=== PATIENT | male | born 1935 | race Caucasian/White ===

== ENCOUNTER → 2016-08-06 | Outpatient (CLI) | payer MEDICARE, OTHER ==
[~2016-08-06] MED LIST: ASCO-262 PO; ASCO500T20 PO; ASP325T PO; ASP81TEC PO; ASPI-586 PO; AZTH250C PO; CA C1TAB84 PO; CALC-902 PO; CARB1TAB19 PO; CARB1TAB44 PO; CARB1TAB6 PO; CHOL20003 PO; DOCU100C37 PO; DOCU100T7 PO; DOXY100T2 PO; ERGO400C PO; FAMO20TA3 PO; FINA1TAB10 PO; FINA5TAB6 PO; FURO-125 PO; FURO20TA4 PO; GLIP10TA13 PO; GLIPIZIDE PO; HYDR1TAB PO; INSU100I10 SQ; INSU100V6 SQ; LEVO100T7 PO; LISI-552 PO; LISI20TA PO; LISINOPRIL PO; METF-380 PO; METF500T8 PO; METFORMIN PO; METO5TAB6 PO; MTF500T PO; MTP25TSR PO; OMEG-12 PO; OMEG-160 PO; PANT40TA PO; PANT40TA3 PO; PNT40TEC PO; PRAV10TA PO; PRV20T GT; PRV20T PO; SPIR50TA2 PO; TADA2.5T PO; TRAM-42 PO; TRAM50TA2 PO; TURM500C7 PO; UBID10CA8 PO; VITA1CAP PO; Z PACK; [UNRECOGNIZED DRUG - OTHER] PO; calcium; vitamines
--- NOTE | 2016-08-06 11:49 | Diagnostic Imaging Report ---
EXAMINATION: PA and lateral views of the chest. INDICATION: Fullness and pain. FINDINGS: The lungs are hyperinflated with no focal infiltrates. The heart size is at the upper limits of normal. There is no effusion or pneumothorax. The mediastinum and librado are unremarkable. When compared to 06/11/2015, mild interstitial prominence is stable and is likely chronic mild scarring related. Pacemaker with 2 leads is seen. IMPRESSION: No acute process. Dictated by: Dictated on workstation # [id number]
--- NOTE | 2016-08-06 11:57 | Diagnostic Imaging Report ---
KUB. INDICATION: Fullness and abdominal pain. FINDINGS: No dilated bowel loops seen. Small amount of fecal material in the colon is noted. Cholecystectomy clips seen. There are calcifications in the upper left abdomen favored to be vascular. Calcifications in the pelvis are likely phleboliths. No definitive urinary tract stones. IMPRESSION: No definite abnormality. Dictated by: Dictated on workstation # [id number]
[2016-08-06 12:15] LABS: MEAN PLATELET VOLUME 8.9 FL (7.4-10.4); RED BLOOD COUNT 4.88 10^6/uL (4.35-5.85); RED CELL DISTRIBUTION WIDTH 13.7 % (10.0-14.5); WHITE BLOOD COUNT 9.8 10^3/uL (4.3-11.0)
[2016-08-06 12:34] LABS: ALBUMIN 3.9 G/DL (3.2-4.5); BILIRUBIN,TOTAL 0.8 MG/DL (0.1-1.0); CREATININE SERUM 1.46 MG/DL (0.60-1.30); POTASSIUM 4.6 MMOL/L (3.6-5.0); TOTAL PROTEIN 6.8 G/DL (6.4-8.2)
== END ==
LOC: RAD 10:59
PROVIDERS: ATTEND Nurse Practitioner Family
DX: R05 Cough (principal)
CPT/HCPCS: 36415; 71020; 74000; 80053; 83880; 85027; 87070; 87077; 87186; 87205

== ENCOUNTER → 2016-08-10 | Outpatient (CLI) | payer MEDICARE, OTHER ==
--- NOTE | 2016-08-10 15:54 | Diagnostic Imaging Report ---
PROCEDURE: US Thyroid. TECHNIQUE: Multiple real-time grayscale images were obtained of the thyroid in various projections. INDICATION: Abnormal thyroid function. FINDINGS: The right thyroid lobe is 5.6 x 2.3 x 2 cm. The left lobe is 5.8 x 2.8 x 2.4 cm. There is a nodule measuring 2.6 x 1.9 x 2.3 cm in the inferior aspect of the left thyroid lobe. In the inferior aspect of the right lobe, a 1.9 x 1.2 x 1.6 cm nodule is seen with a solid appearance and internal vascularity. The rest of the thyroid gland is slightly heterogenous. IMPRESSION: Enlarged slightly heterogenous thyroid gland with dominant nodules in the inferior aspect of each lobe, larger on the left side measuring up to 2.6 cm. This could be related to multinodular goiter. An ultrasound-guided biopsy of the dominant lesion is suggested. Report faxed to [phone] at 3:54 p.m. 08/10/2016/ Dictated by: Dictated on workstation # [id number]
== END ==
LOC: RAD 11:56
PROVIDERS: ATTEND Nurse Practitioner Family
DX: R94.6 Abnormal results of thyroid function studies (principal); E04.1 Nontoxic single thyroid nodule
CPT/HCPCS: 76536

== ENCOUNTER → 2016-08-13 | Outpatient (CLI) | payer MEDICARE, OTHER ==
[2016-08-13 14:02] LABS: ALBUMIN 3.7 G/DL (3.2-4.5); BILIRUBIN,TOTAL 0.7 MG/DL (0.1-1.0); CALCIUM 8.6 MG/DL (8.5-10.1); CREATININE SERUM 1.38 MG/DL (0.60-1.30); POTASSIUM 4.5 MMOL/L (3.6-5.0); TOTAL PROTEIN 6.3 G/DL (6.4-8.2)
[2016-08-13 14:22] LABS: THYROID STIMULATING HORMONE 0.37 UIU/ML (0.35-4.94)
== END ==
LOC: LAB 13:16
PROVIDERS: ATTEND Surgery
DX: E04.1 Nontoxic single thyroid nodule (principal); R53.83 Other fatigue
CPT/HCPCS: 36415; 80053; 84436; 84443; 84480

== ENCOUNTER 2016-08-20 08:53 | Outpatient (CLI) | payer MEDICARE, OTHER ==
[~2016-08-20] VITALS: Ht 188 cm; Wt 99.9 kg
[~2016-08-20 08:53] MED LIST changes: -CA C1TAB84 PO; -CALC-902 PO; -DOCU100C37 PO; -INSU100I10 SQ; -LEVO100T7 PO; -TRAM50TA2 PO
[2016-08-20 09:05] VITALS: BP 174/81
[2016-08-20] MEDS ORDERED: CALC-902 PO (09:10)
[2016-08-26] MEDS ORDERED: TRAM50TA2 PO (13:37)
[2016-08-26] MEDS ORDERED: LEVO100T7 PO (13:40)
== END 2016-08-20 09:40 | disposition home or self-care (01) ==
LOC: PREOP 08:53
PROVIDERS: ATTEND Surgery
DX: Z01.818 Encounter for other preprocedural examination (principal); Z11.2 Encounter for screening for other bacterial diseases; E04.1 Nontoxic single thyroid nodule
CPT/HCPCS: 87081

== ENCOUNTER 2016-08-26 08:55 | Day surgery (SDC) | payer MEDICARE, OTHER ==
[2016-08-26] VITALS (11 sets, daily range): BP systolic 119–171; BP diastolic 76–108
[~2016-08-26] VITALS: Ht 188 cm; Wt 92.6 kg
[~2016-08-26 08:55] MED LIST changes: +CALC-902 PO
[2016-08-26] MEDS ORDERED: VANCOMYCIN 1000 MG/VIAL ONE (09:15)
[2016-08-26] MEDS ORDERED: NS (IVPB) 250 ML ONE (09:15)
[2016-08-26] MEDS ORDERED: VANCOMYCIN 1 GM/NS 250 ML IVPB IV ONE ×2 (09:30)
[2016-08-26] MEDS ORDERED: CATHETER FLUSH 10 ML SYR IV PRN (09:30)
[2016-08-26] MEDS ORDERED: BUP/EPI 0.25% 1:200,000 (MARCAINE) 30 ML VIAL ONE (09:37)
[2016-08-26] MEDS ORDERED: THROMBIN SPRAY KIT 5,000 UNIT VIAL ONE (09:37)
--- NOTE | 2016-08-26 09:47 | Progress Note-Pre Operative ---
Pre-Operative Progress Note H&P Reviewed The H&P was reviewed, patient examined and no changes noted. Date H&P Reviewed: August 26, 2016 Time H&P Reviewed: 09:47 Pre-Operative Diagnosis: thyroid nodules KAELYN WEST MD August 26, 2016 9:47 am
[2016-08-26] MEDS ORDERED: LACTATED RINGERS 1,000 ML IV ONE (09:50)
[2016-08-26] MEDS ORDERED: ONDANSETRON 4 MG/2 ML (SDV) Z0FRAN ONE (09:50)
[2016-08-26] MEDS ORDERED: proPOfol 200 MG/20 ML (DIPRIVAN) VIAL IV ONE (09:50)
[2016-08-26] MEDS ORDERED: SEVOFLURANE (ULTANE) 15 ML INHAL SOLN ONE ×8 (09:50→12:27)
[2016-08-26] MEDS ORDERED: SUCCINYLCHOLINE INJ 100 MG/5 ML SYR ONE (09:50)
[2016-08-26] MEDS ORDERED: fentaNYL INJECTION 250 MCG/5 ML AMP ONE (09:51)
[2016-08-26] MEDS ORDERED: MIDAZOLAM 2 MG/2 ML (VERSED) VIAL ONE (09:51)
[2016-08-26] MEDS ORDERED: fentaNYL INJECTION 100 MCG/2 ML AMP ONE (11:27)
[2016-08-26] MEDS ORDERED: LACTATED RINGERS 1,000 ML IV PRN (12:13)
[2016-08-26] MEDS ORDERED: ONDANSETRON 4 MG/2 ML (SDV) Z0FRAN IVP PRN ×2 (12:45→13:45)
[2016-08-26] MEDS ORDERED: MEPERIDINE (DEMEROL) INJ 50 MG/ML IVP PRN (12:45)
[2016-08-26] MEDS ORDERED: morphine INJ 10 MG/ML 1ML (SYR OR VIAL) ONE (13:17)
[2016-08-26] MEDS: morphine INJ 10 MG/ML 1ML (SYR OR VIAL) IVP PRN ×2 (13:28→13:33)
[2016-08-26] MEDS ORDERED: LACTATED RINGERS 1,000 ML IV SCH (13:33)
--- NOTE | 2016-08-26 13:33 | Progress Note-Post Operative ---
Post-Operative Progess Note Surgeon (s)/Obstetrics And Gynecology Professor (s) Surgeon KAELYN WEST MD Obstetrics And Gynecology Professor: not applicable Pre-Operative Diagnosis thyroid nodules Post-Operative Diagnosis same Procedure & Operative Findings Date of Procedure 08/26/16 Procedure Preformed/Findings total thyroidectomy with nerve monitoring Anesthesia Type Gen. Estimated Blood Loss Estimated blood loss (mL): 50 mL Specimens/Packing Specimens Removed both lobes of thyroid Packing: none KAELYN WEST MD August 26, 2016 1:32 pm
[2016-08-26] MEDS ORDERED: TRAM50TA2 PO (13:37)
--- NOTE | 2016-08-26 13:38 | Discharge Inst-Simple/Standard ---
Discharge Inst-Standard Discharge Medications New, Converted or Re-Newed RX: RX on Chart Patient Instructions/Follow Up Plan of Care/Instructions/FU: dressings off in a.m.ffollow-up in 3 weeks Activity as Tolerated: Yes Discharge Diet: No Restrictions, ADA Diet KAELYN WEST MD August 26, 2016 1:38 pm
[2016-08-26] MEDS ORDERED: LEVO100T7 PO (13:40)
[2016-08-26] MEDS ORDERED: HYDROcodone/APAP 5 MG/325 MG (LORTAB) TAB PO PRN (13:45)
[2016-08-26] MEDS ORDERED: fentaNYL INJECTION 100 MCG/2 ML AMP IVP PRN (13:45)
[2016-08-26] MEDS ORDERED: FAMOTIDINE 20 MG (PEPCID) TABLET PO PRN (13:45)
[2016-08-26] MEDS ORDERED: INSU100I10 SQ (16:51)
[2016-08-26] MEDS ORDERED: CA C1TAB84 PO (16:51)
[2016-08-26] MEDS ORDERED: DOCU100C37 PO (16:55)
[2016-08-26] MEDS ORDERED: metFORMIN XR 500 MG (GLUCOPHAGE XR) TAB PO SCH (17:00)
[2016-08-26] MEDS: LABETALOL HCL 20 MG/4 ML VIAL IV PRN ×3 (17:47→21:31)
[2016-08-26] MEDS ORDERED: FUROSEMIDE 20 MG (LASIX) TAB PO SCH (18:00)
[2016-08-26] MEDS: metFORMIN XR 500 MG (GLUCOPHAGE XR) TAB PO SCH (18:18)
[2016-08-26] MEDS: GLIPIZIDE 10 MG TAB PO SCH (18:18)
[2016-08-26] MEDS: SINEMET 25/100 (CARBIDOPA/LEVODOPA) TAB PO SCH (18:18)
[2016-08-26] MEDS: lisINopril 20 MG (ZESTRIL) TAB PO SCH (20:32)
[2016-08-26] MEDS ORDERED: inSUlin DETERMIR 1 UNIT/0.01 ML (LEVEMIR) CHARGE PER UNIT SQ SCH (21:00)
[2016-08-26] MEDS ORDERED: INSULIN GLARGINE HUM REC ANLOG SQ SCH (21:00)
[2016-08-26] MEDS ORDERED: [UNRECOGNIZED DRUG - OTHER] SQ SCH (21:00)
[2016-08-26] MEDS ORDERED: lisINopril 20 MG (ZESTRIL) TAB PO SCH (21:00)
[2016-08-26] MEDS ORDERED: ONDANSETRON 4 MG/2 ML (SDV) Z0FRAN IVP ONE (21:30)
[2016-08-27] VITALS (14 sets, daily range): BP systolic 97–146; BP diastolic 56–107
[2016-08-27 04:13] LABS: CALCIUM 8.2 MG/DL (8.5-10.1); CREATININE SERUM 1.47 MG/DL (0.60-1.30); MAGNESIUM 1.7 MG/DL (1.8-2.4); PHOSPHORUS 4.3 MG/DL (2.3-4.7); POTASSIUM 4.7 MMOL/L (3.6-5.0)
[2016-08-27] MEDS ORDERED: LEVOTHYROXINE 100 MCG (LEVOTHROID) TAB PO NR (06:00)
[2016-08-27] MEDS ORDERED: D3 PO SCH (07:00)
[2016-08-27] MEDS ORDERED: MINERALS PO SCH (07:00)
[2016-08-27] MEDS ORDERED: CALCIUM PO SCH (07:00)
[2016-08-27] MEDS ORDERED: FUROSEMIDE 20 MG (LASIX) TAB PO SCH (09:00)
[2016-08-27] MEDS ORDERED: METOCLOPRAMIDE INJ 10 MG/2 ML (REGLAN) IVP NR (09:06)
--- NOTE | 2016-08-27 09:18 | OPERATIVE REPORT ---
DATE OF SERVICE: 08/26/2016 PREOPERATIVE DIAGNOSIS: Bilateral thyroid nodules. POSTOPERATIVE DIAGNOSIS: Bilateral thyroid nodules. OPERATIONS: 1. Total thyroidectomy. 2. Intraoperative nerve monitoring (recurrent laryngeal nerve). SURGEON: Kaelyn West MD ANESTHESIA: General anesthesia. BLOOD LOSS: 50 mL. FLUIDS: 1300 mL crystalloid. TYPE OF WOUND: Type 1 (clean wound). INDICATION FOR PROCEDURE: This gentleman is known to have had bilateral thyroid nodules over long a period of time. Recently, he developed hoarseness of voice and ultrasound of the thyroid showed enlargement of the thyroid nodules. Therefore, he was felt reasonable to proceed with total thyroidectomy to establish definitive diagnosis care. Intraoperative monitoring of the recurrent laryngeal nerve was also offered. Informed consent was obtained after reviewing the operative details and complications of wound infection, hematoma and further hoarseness of his voice. DESCRIPTION OF PROCEDURE: He was placed supine on the operating table and general anesthesia induced using an endotracheal tube. Ancef was administered intravenously as prophylaxis against wound infection. Sequential compression devices were placed around his legs, to minimize the risk of venous thrombosis. His neck and upper chest were prepared and draped in the usual sterile manner. Pre-emptive analgesia was established using 0.25% Marcaine with epinephrine. A 4 cm transverse incision was made along the skin crease of the neck and platysma incised transversely. Flaps were raised superiorly to the level of the thyroid cartilage and inferiorly to the sternal notch. Cervical fascia was incised vertically and the trap muscles were retracted laterally. I began the dissection on the left side. A large lobe with extension into the paraesophageal region was identified. It was retracted into the operative field and the superior thyroid artery controlled using 2-0 silk sutures, reinforced with the LigaSure. Recurrent laryngeal nerve was identified and preserved throughout, by constant visual inspection and intermittent nerve stimulation technique. Both parathyroids were identified and preserved along with their blood supply. The isthmus was then divided using Harmonic scalpel. Inferior thyroid artery was ligated using 2-0 silk sutures, reinforced with Ligaclips. Left lobe was then sent separately for histological examination. A smaller right lobe was identified and dissected in a similar fashion. Recurrent laryngeal nerve was found in its conventional position and protected by constant visual inspection and intermittent nerve stimulation technique. Both parathyroid glands were identified and preserved, along with the blood supply. We had the anesthesiologist conduct Valsalva maneuver, looking for venous bleeding. There was not any. Gelfoam soaked in thrombin solution and was placed along the tracheoesophageal groove, to optimize hemostasis. Neck was then flexed, in preparation for closure. Cervical fascia was approximated using 3-0 Vicryl and platysma using same material. The skin was closed using 4-0 Vicryl, in a subcuticular fashion. He tolerated the procedure well, was extubated in the operating room and taken to the recovery room in stable condition. [place], sponges and instruments were correct at the end of the operation. Job ID: [id number] DocumentID: [id number] Dictated Date: 08/26/2016 13:30:17 Filler Blender Date: 08/27/2016 03:30:52 Dictated By: KAELYN WEST MD MTDD
[2016-08-27] MEDS: MAGNESIUM 1 GM/100 ML IVPB 100 ML IV SCH ×2 (09:28→11:19)
[2016-08-27] MEDS: GLIPIZIDE 10 MG TAB PO SCH (09:33)
[2016-08-27] MEDS: SINEMET 25/100 (CARBIDOPA/LEVODOPA) TAB PO SCH (09:33)
[2016-08-27] MEDS: lisINopril 20 MG (ZESTRIL) TAB PO SCH (09:34)
[2016-08-27] MEDS: metFORMIN XR 500 MG (GLUCOPHAGE XR) TAB PO SCH (09:34)
--- NOTE | 2016-08-27 12:19 | Progress Note-Standard ---
Standard Progress Note Progress Notes/Assess & Plan Progress/Assessment & Plan 08/27/16: Nausea improved, Incision dry. Calcium 8.2. Vocal cord function normal. Home Final Diagnosis Rob thyroid nodules KAELYN WEST MD August 27, 2016 12:19 pm
--- NOTE | 2016-08-27 12:20 | Discharge Inst-Simple/Standard ---
Discharge Inst-Standard Discharge Medications New, Converted or Re-Newed RX: RX on Chart Patient Instructions/Follow Up Plan of Care/Instructions/FU: F/u in 3 weeks Activity as Tolerated: Yes Discharge Diet: No Restrictions KAELYN WEST MD August 27, 2016 12:20 pm
--- NOTE | 2016-08-27 13:24 | Anesthesia-General Post-Op ---
General Patient Condition Mental Status/LOC: Same as Preop Cardiovascular: Satisfactory Nausea/Vomiting: Absent Respiratory: Satisfactory Pain: Controlled Complications: Absent Post Op Complications Complications Patient reported PONV. Now resolved. Asked patient to let future anesthesia providers know so preventative measures can be taken. Follow Up Care/Instructions Patient Instructions None needed. Anesthesia/Patient Condition Patient Condition Patient is doing well, no complaints, stable vital signs, no apparent adverse anesthesia problems. No complications reported per nursing. JOSE MARIA YANG CRNA August 27, 2016 13:24
== END 2016-08-27 13:55 | disposition home or self-care (01) ==
LOC: SDC 08:55 → ICU 13:55 → ENPENDDIS 08-27 10:00 → SDC 08-27 13:55
PROVIDERS: ATTEND Surgery
DX: E04.1 Nontoxic single thyroid nodule (principal); I10 Essential (primary) hypertension; I48.0 Paroxysmal atrial fibrillation; E11.9 Type 2 diabetes mellitus without complications; Z95.0 Presence of cardiac pacemaker; I25.10 Atherosclerotic heart disease of native coronary artery without angina pectoris; Z79.899 Other long term (current) drug therapy; Z79.4 Long term (current) use of insulin; H91.90 Unspecified hearing loss, unspecified ear
CPT/HCPCS: 36415; 80048; 82962; 83735; 84100

== ENCOUNTER 2016-09-25 09:43 | Outpatient (RCR) | payer MEDICARE, OTHER ==
[~2016-09-25 09:43] MED LIST changes: +CA C1TAB84 PO; +DOCU100C37 PO; +INSU100I10 SQ; +LEVO100T7 PO; +TRAM50TA2 PO
== END 2016-09-25 16:00 | disposition home or self-care (01) ==
LOC: WOUNDCARE 09:43
PROVIDERS: ATTEND Surgery
DX: I87.331 Chronic venous hypertension (idiopathic) with ulcer and inflammation of right lower extremity (principal); L97.211 Non-pressure chronic ulcer of right calf limited to breakdown of skin; R21 Rash and other nonspecific skin eruption
CPT/HCPCS: 99212; 99214

== ENCOUNTER → 2016-09-28 | Outpatient (CLI) | payer MEDICARE, OTHER | LOC: LAB 13:51 | PROVIDERS: ATTEND Surgery | DX: E05.90 Thyrotoxicosis, unspecified without thyrotoxic crisis or storm (principal); Z98.890 Other specified postprocedural states | CPT/HCPCS: 36415; 84436; 84443 ==

== ENCOUNTER 2016-12-09 14:12 | Outpatient (CLI) | payer MEDICARE, OTHER | END 2016-12-09 14:41 | disposition home or self-care (01) | LOC: SLEEP 14:12 | PROVIDERS: ATTEND Otolaryngology Otolaryngology/Facial Plastic Surgery | DX: G47.33 Obstructive sleep apnea (adult) (pediatric) (principal) ==

== ENCOUNTER → 2017-05-04 | Outpatient (CLI) | payer MEDICARE, OTHER | LOC: RAD 14:33 | PROVIDERS: ATTEND Nurse Practitioner Family | DX: I25.10 Atherosclerotic heart disease of native coronary artery without angina pectoris (principal); I73.9 Peripheral vascular disease, unspecified | CPT/HCPCS: 93923 ==

== ENCOUNTER → 2017-06-16 | Outpatient (CLI) | payer MEDICARE, OTHER | LOC: WOUNDCARE 08:02 | PROVIDERS: ATTEND Surgery | DX: E11.621 Type 2 diabetes mellitus with foot ulcer (principal); I70.245 Atherosclerosis of native arteries of left leg with ulceration of other part of foot; L97.521 Non-pressure chronic ulcer of other part of left foot limited to breakdown of skin; I70.242 Atherosclerosis of native arteries of left leg with ulceration of calf; I87.332 Chronic venous hypertension (idiopathic) with ulcer and inflammation of left lower extremity; L97.222 Non-pressure chronic ulcer of left calf with fat layer exposed; E11.42 Type 2 diabetes mellitus with diabetic polyneuropathy; I89.0 Lymphedema, not elsewhere classified | CPT/HCPCS: 11042 ==

== ENCOUNTER → 2017-06-23 | Outpatient (CLI) | payer MEDICARE, OTHER | LOC: WOUNDCARE 09:56 | PROVIDERS: ATTEND Surgery | DX: E11.621 Type 2 diabetes mellitus with foot ulcer (principal); E11.42 Type 2 diabetes mellitus with diabetic polyneuropathy; L97.521 Non-pressure chronic ulcer of other part of left foot limited to breakdown of skin; L97.221 Non-pressure chronic ulcer of left calf limited to breakdown of skin; I87.332 Chronic venous hypertension (idiopathic) with ulcer and inflammation of left lower extremity; I70.245 Atherosclerosis of native arteries of left leg with ulceration of other part of foot; I70.242 Atherosclerosis of native arteries of left leg with ulceration of calf; I89.0 Lymphedema, not elsewhere classified | CPT/HCPCS: 99213 ==

== ENCOUNTER → 2017-06-30 | Outpatient (CLI) | payer MEDICARE, OTHER | LOC: WOUNDCARE 09:55 | PROVIDERS: ATTEND Surgery | DX: I87.332 Chronic venous hypertension (idiopathic) with ulcer and inflammation of left lower extremity (principal); L97.221 Non-pressure chronic ulcer of left calf limited to breakdown of skin; I89.0 Lymphedema, not elsewhere classified | CPT/HCPCS: 99212 ==

== ENCOUNTER 2017-11-07 16:38 | Emergency (ER) | payer MEDICARE, OTHER ==
[~2017-11-07] VITALS: Ht 188 cm; Wt 108.9 kg
[~2017-11-07 16:38] MED LIST changes: -SPIR50TA2 PO; +SPIR50TA4 PO
--- OUTSIDE RECORDS SUMMARY | 2017-11-07 16:52 | XMS REPORT | CCD ---
Author Author [facility] Organization [facility] Address [address] [place] [address] Phone Care Team Providers Care Scratcher Tender Name Role Phone PP Unavailable CCM Unavailable Summary Purpose Interface Exchange Insurance Providers Payer name Policy type / Coverage type Covered green party ID Effective Begin Date Effective End Date WPS Medicare Part B Medicare Part B [id number] Unknown [facility] Medicare Part B [id number] Unknown Family history Runs in the family Diagnosis Age At Onset Diabetes Unknown Mother Diagnosis Age At Onset Diabetes Unknown Hypertension Unknown Alzheimer's Disease Unknown Stroke Unknown Father Diagnosis Age At Onset No Family Disease Entered N/A Grandmother Diagnosis Age At Onset Alzheimer's Disease Unknown Social History Social History Element Codes Description Effective Dates Number of children Unknown 4 1 in [place], 1 in [place], 2 in [place] 2011 Employment Unknown 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 Unknown Has never used illegal drugs 07/02/2011 Marital status Unknown 07/01/2011 Living arrangements Unknown House 07/01/2011 Allergies, Adverse Reactions, Alerts Allergies, Adverse Reactions, Alerts data not found Past Medical History Illness Codes Condition Status Onset Date Resolved Date Atrophy of thyroid (acquired) ICD-9: 244.8 ICD-10: E03.4 Active 05/13/2017 Unknown Essential (primary) hypertension ICD-9: 401.1 ICD-10: I10 Active 05/13/2017 Unknown Localized edema ICD-9 : 782.3 ICD-10: R60.0 Active 03/22/2016 Unknown Type 2 diabetes mellitus without complications ICD-9: 250.00 ICD-10: E11.9 Active 05/13/2017 Unknown Rash and other nonspecific skin eruption ICD-9: 782.1 ICD-10: R21 Active 04/28/2017 Unknown Essential (primary) hypertension ICD-9: 401.9 ICD-10: I10 Active 04/26/2016 Unknown Hypothyroidism, unspecified ICD-9: 244.9 ICD-10: E03.9 Active 07/10/2016 Unknown Type 2 diabetes mellitus with hyperglycemia ICD-9: 250.00 ICD-10: E11.65 Active 04/26/2016 Unknown Encounter for general adult medical examination with abnormal findings ICD-9: V70.0 ICD-10: Z00.01 Active 07/10/2016 Unknown Hypothryroidism Unknown Active 09/10/2016 Unknown Allergic rhinitis due to pollen ICD-9: 477.0 ICD-10: J30.1 Active 09/10/2016 Unknown Dysphonia ICD-9: 784.42 ICD-10: R49.0 Active 08/24/2016 Unknown 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 ICD-10: E05.30 Active 08/24/2016 Unknown Abdominal distension (gaseous) ICD-9: 787.3 ICD-10: R14.0 Active 08/06/2016 Unknown Acute bronchitis, unspecified ICD-9: 466.0 ICD-10: J20.9 Active 08/06/2016 Unknown Cough ICD-9: 786.2 ICD-10: R05 Active 07/30/2016 Unknown Acute upper respiratory infection, unspecified ICD-9: 465.9 ICD-10: J06.9 Active 07/30/2016 Unknown Abnormal results of thyroid function studies ICD-9: 794.5 ICD-10: R94.6 Active 07/13/2016 Unknown Parkinson's disease ICD-9: 332.0 ICD-10: G20 Active 11/24/2015 Unknown Hesitancy of micturition ICD-9: 788.64 ICD-10: R39.11 Active 04/26/2016 Unknown Hypo-osmolality and hyponatremia ICD-9: 276.1 ICD-10: E87.1 Active 04/26/2016 Unknown Low back pain ICD-9: 724.2 ICD-10: M54.5 Active 01/19/2016 Unknown Type 2 diabetes mellitus with hyperglycemia ICD-9: 250.02 ICD-10: E11.65 Active 12/15/2015 Unknown Unspecified open wound, right ankle, initial encounter ICD-9: 891.0 ICD-10: S91.001A Active 07/24/2015 Unknown Encounter for other specified aftercare ICD-9: V58.89 ICD-10: Z51.89 Active 03/19/2015 Unknown Cutaneous abscess of chest wall ICD-9: 682.2 ICD-10: L02.213 Active 03/18/2015 Unknown Encounter for immunization ICD-9: V03.82 ICD-10: Z23 Active 03/07/2015 Unknown Edema, unspecified ICD -9: 782.3 ICD-10: R60.9 Active 03/03/2015 Unknown Parkinsons disease ICD -9: 332.0 Active 05/30/2014 Unknown DIABETES TYPE II ICD-9 : 250.00 Active 02/28/2014 Unknown Esophageal ulcer ICD-9 : 530.20 Active 01/23/2014 Unknown ESOPHAGEAL REFLUX ICD- 9: 530.81 Active 12/26/2013 Unknown ACTINIC KERATOSIS ICD- 9: 702.0 Active 10/24/2013 Unknown Back pain ICD-9: 724.5 Active 10/17/2013 Unknown Diabetes type 2, uncontrolled ICD-9: 250.02 Active 10/17/2013 Unknown ELEVATED PSA ICD-9: 790.93 Active 10/17/2013 Unknown ESSENTIAL HYPERTENSION ICD-9: 401.9 Active 10/17/2013 Unknown Sleep apnea ICD-9: 780.57 Active 07/24/2013 Unknown Routine physicl lab exam ICD-9: V72.62 Active 05/05/2013 Unknown Gait instability ICD-9 : 781.2 Active 11/30/2012 Unknown Abdominal pain ICD-9: 789.00 Active 05/30/2012 Unknown Gastroenteritis ICD-9 : 558.9 Active 04/26/2012 Unknown Claw toe ICD-9: 735.5 Active 04/14/2012 Unknown DERMATOPHYTOSIS OF FOOT ICD-9: 110.4 Active 02/22/2012 Unknown Rash ICD-9: 782.1 Active 02/22/2012 Unknown Constipation - functional ICD-9: 564.09 Active 01/13/2012 Unknown 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 Active 08/06/2011 Unknown Encounter for long-term (current) use of medications ICD-9: V58.69 Active 08/06/2011 Unknown LUMBAGO ICD-9: 724.2 Active 08/05/2011 Unknown Sacroiliitis ICD-9: 720.2 Active 08/05/2011 Unknown Diabetes Unknown Active 07/01/2011 Unknown Breast mass in male ICD-9: 611.72 Active 07/01/2011 Unknown Chronic hyponatremia ICD-9: 276.1 Active 07/01/2011 Unknown Hyperlipidemia Unknown Active 06/25/2011 Unknown Hypertension Unknown Active 06/25/2011 Unknown Elevated lipids ICD-9 : 272.4 Active 06/25/2011 Unknown Prostate cancer screening ICD-9: V76.44 Active 06/25/2011 Unknown Problems Condition Codes Effective Dates Condition Status Atrophy of thyroid (acquired) ICD-9: 244.8 ICD-10: E03.4 05/13/2017 Active Essential (primary) hypertension ICD-9: 401.1 ICD-10: I10 05/13/2017 Active Localized edema ICD-9 : 782.3 ICD-10: R60.0 03/22/2016 Active Type 2 diabetes mellitus without complications ICD-9: 250.00 ICD-10: E11.9 05/13/2017 Active Rash and other nonspecific skin eruption ICD-9: 782.1 ICD-10: R21 04/28/2017 Active Essential (primary) hypertension ICD-9: 401.9 ICD-10: I10 04/26/2016 Active Hypothyroidism, unspecified ICD-9: 244.9 ICD-10: E03.9 07/10/2016 Active Type 2 diabetes mellitus with hyperglycemia ICD-9: 250.00 ICD-10: E11.65 04/26/2016 Active Encounter for general adult medical examination with abnormal findings ICD-9: V70.0 ICD-10: Z00.01 07/10/2016 Active Hypothryroidism Unknown 09/10/2016 Active Allergic rhinitis due to pollen ICD-9: 477.0 ICD-10: J30.1 09/10/2016 Active Dysphonia ICD-9: 784.42 ICD-10: R49.0 08/24/2016 Active 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 ICD-10: E05.30 08/24/2016 Active Abdominal distension (gaseous) ICD-9: 787.3 ICD-10: R14.0 08/06/2016 Active Acute bronchitis, unspecified ICD-9: 466.0 ICD-10: J20.9 08/06/2016 Active Cough ICD-9: 786.2 ICD-10: R05 07/30/2016 Active Acute upper respiratory infection, unspecified ICD-9: 465.9 ICD-10: J06.9 07/30/2016 Active Abnormal results of thyroid function studies ICD-9: 794.5 ICD-10: R94.6 07/13/2016 Active Parkinson's disease ICD-9: 332.0 ICD-10: G20 11/24/2015 Active Hesitancy of micturition ICD-9: 788.64 ICD-10: R39.11 04/26/2016 Active Hypo-osmolality and hyponatremia ICD-9: 276.1 ICD-10: E87.1 04/26/2016 Active Low back pain ICD-9: 724.2 ICD-10: M54.5 01/19/2016 Active Type 2 diabetes mellitus with hyperglycemia ICD-9: 250.02 ICD-10: E11.65 12/15/2015 Active Unspecified open wound, right ankle, initial encounter ICD-9: 891.0 ICD-10: S91.001A 07/24/2015 Active Encounter for other specified aftercare ICD-9: V58.89 ICD-10: Z51.89 03/19/2015 Active Cutaneous abscess of chest wall ICD-9: 682.2 ICD-10: L02.213 03/18/2015 Active Encounter for immunization ICD-9: V03.82 ICD-10: Z23 03/07/2015 Active Edema, unspecified ICD -9: 782.3 ICD-10: R60.9 03/03/2015 Active Parkinsons disease ICD -9: 332.0 05/30/2014 Active DIABETES TYPE II ICD-9 : 250.00 02/28/2014 Active Esophageal ulcer ICD-9 : 530.20 01/23/2014 Active ESOPHAGEAL REFLUX ICD- 9: 530.81 12/26/2013 Active ACTINIC KERATOSIS ICD- 9: 702.0 10/24/2013 Active Back pain ICD-9: 724.5 10/17/2013 Active Diabetes type 2, uncontrolled ICD-9: 250.02 10/17/2013 Active ELEVATED PSA ICD-9: 790.93 10/17/2013 Active ESSENTIAL HYPERTENSION ICD-9: 401.9 10/17/2013 Active Sleep apnea ICD-9: 780.57 07/24/2013 Active Routine physicl lab exam ICD-9: V72.62 05/05/2013 Active Gait instability ICD-9 : 781.2 11/30/2012 Active Abdominal pain ICD-9: 789.00 05/30/2012 Active Gastroenteritis ICD-9 : 558.9 04/26/2012 Active Claw toe ICD-9: 735.5 04/14/2012 Active DERMATOPHYTOSIS OF FOOT ICD-9: 110.4 02/22/2012 Active Rash ICD-9: 782.1 02/22/2012 Active Constipation - functional ICD-9: 564.09 01/13/2012 Active 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 08/06/2011 Active Encounter for long-term (current) use of medications ICD-9: V58.69 08/06/2011 Active LUMBAGO ICD-9: 724.2 08/05/2011 Active Sacroiliitis ICD-9: 720.2 08/05/2011 Active Diabetes Unknown 07/01/2011 Active Breast mass in male ICD-9: 611.72 07/01/2011 Active Chronic hyponatremia ICD-9: 276.1 07/01/2011 Active Hyperlipidemia Unknown 06/25/2011 Active Hypertension Unknown 06/25/2011 Active Elevated lipids ICD-9 : 272.4 06/25/2011 Active Prostate cancer screening ICD-9: V76.44 06/25/2011 Active Medications Medication Codes Instructions Start Date Stop Date Status Fill Instructions glipizide 10 mg tablet RxNorm: 326469 1 Tablet(s) PO BID 201711/03/2018 Active metformin ER 500 mg tablet,extended release 24 hr RxNorm: 492970 Tablet(s) TAKE ONE TABLET BY MOUTH TWICE DAILY 05/13/2017 05/07/2018 Active Basaglar KwikPen 100 unit/mL (3 mL) subcutaneous RxNorm: 5904048 24 Unit(s) SQ daily 05/13/2017 05/07/2018 Active lisinopril 20 mg tablet RxNorm: 510471 Tablet(s) TAKE 1 TABLET BY MOUTH TWICE DAILY 05/13/2017 05/07/2018 Active finasteride 5 mg tablet RxNorm: 120141 1 Tablet(s) PO daily 11/08/2017 Active [SAVINGS FOR UNINSURED PATIENTS -- BIN:112681, PCN: ASPROD1, Group: [id number], ID# [id number], Process claim through [employer], for questions: . THIS IS NOT INSURANCE.] levothyroxine 175 mcg tablet RxNorm: 065774 1 Tablet(s) PO daily 05/13/2017 11/08/2017 Active Sinemet 25 mg-100 mg tablet RxNorm: 892377 Tablet(s) TAKE ONE TABLET BY MOUTH TWICE DAILY IN THE MORNING AND AT SUPPER 05/13/2017 05/07/2018 Active Lasix 20 mg tablet RxNorm: 909321 Tablet(s) TAKE 1 TABLET BY MOUTH ONCE DAILY FOR 1 WEEK AND THEN TAKE 1 TABLET BY MOUTH EVERY 3 DAYS THEREAFTER 05/13/2017 07/27/2017 Active Basaglar KwikPen 100 unit/mL (3 mL) subcutaneous RxNorm: 8760852 24 Unit(s) SQ daily 05/07/2017 05/12/2017 Inactive Lasix 20 mg tablet RxNorm: 2 Tablet(s) PO daily x 3 days, then 1 pill three times a week thereafter 04/28/2017 No Stop Date Active triamcinolone acetonide 0.025 % topical cream RxNorm: 1462091 1 Application TOP BID 04/28/2017 No Stop Date Active clotrimazole 1 % topical cream RxNorm: 562232 1 Application TOP BID 04/28/2017 No Stop Date Active potassium chloride ER 10 mEq tablet,extended release(part/ cryst) RxNorm: 1749056 2 Tablet(s) PO daily x 3 days, then 1 pill three times a week when taking the lasix 04/28/2017 08/25/2017 Active Lasix 20 mg tablet RxNorm: 341912 Tablet(s) TAKE 1 TABLET BY MOUTH ONCE DAILY FOR 1 WEEK AND THEN TAKE 1 TABLET BY MOUTH EVERY 3 DAYS THEREAFTER 04/22/2017 05/12/2017 Inactive Lantus Solostar 100 unit/mL (3 mL) subcutaneous insulin pen RxNorm: 942522 24 Unit(s) SQ daily INJECT 24 UNITS DAILY OR DIRECTED 201605/06/2017 Inactive 1 box of 5 pens Basaglar KwikPen 100 unit/mL (3 mL) subcutaneous RxNorm: 3351772 24 Unit(s) SQ daily 03/02/2017 05/06/2017 Inactive Basaglar KwikPen 100 unit/mL (3 mL) subcutaneous RxNorm: 7855642 24 Unit(s) SQ daily 03/02/2017 03/01/2017 Inactive levothyroxine 175 mcg tablet RxNorm: 075689 1 Tablet(s) PO daily 02/02/2017 05/12/2017 Inactive Sinemet 25 mg-100 mg tablet RxNorm: 388903 TAKE ONE TABLET BY MOUTH TWICE DAILY IN THE MORNING AND AT SUPPER 12/30/2016 Inactive metformin ER 500 mg tablet,extended release 24 hr RxNorm: 573970 Tablet(s) TAKE ONE TABLET BY MOUTH TWICE DAILY 11/10/2016 05/12/2017 Inactive lisinopril 20 mg tablet RxNorm: 655335 Tablet(s) TAKE 1 TABLET BY MOUTH TWICE DAILY 11/10/2016 05/12/2017 Inactive levothyroxine 150 mcg tablet RxNorm: 781452 1 Tablet(s) PO daily 11/05/2016 02/01/2017 Inactive PLEASE LET PATIENT KNOW WE ARE GIVING HIM 150MCG INSTEAD OF 100MCG SO HE JUST TAKES 1 TAB DAILY. THANKS! Lantus Solostar 100 unit/mL (3 mL) subcutaneous insulin pen RxNorm: 656124 24 Unit(s) SQ daily INJECT 24 UNITS DAILY OR DIRECTED 201603/01/2017 Inactive 1 box of 5 pens Lantus Solostar 100 unit/mL (3 mL) subcutaneous insulin pen RxNorm: 604994 24 Unit(s) SQ daily INJECT 24 UNITS DAILY OR DIRECTED 201610/06/2016 Inactive please call patient with the [facility]bert levothyroxine 100 mcg tablet RxNorm: 851070 1.5 Tablet(s) PO daily 10/05/2016 11/04/2016 Inactive metformin ER 500 mg tablet,extended release 24 hr RxNorm: 780606 Tablet(s) TAKE ONE TABLET BY MOUTH TWICE DAILY 09/29/2016 11/09/2016 Inactive prednisone 20 mg tablet RxNorm: 535612 1 Tablet(s) PO BID 08/0608/10/2016 Inactive Kenalog 40 mg/mL suspension for injection RxNorm: 3050325 1 Milliliter(s) Inj 07/30/2016 07/30/2016 Inactive doxycycline hyclate 100 mg tablet RxNorm: 489174 1 Tablet(s) PO BID 07/30/2016 08/05/2016 Inactive glipizide 10 mg tablet RxNorm: 527092 1 Tablet(s) PO BID 201605/12/2017 Inactive Sinemet 25 mg-100 mg tablet RxNorm: 547321 TABLET(S) TAKE 1 TABLET BY MOUTH TWICE A DAY IN THE MORNING AND AT SUPPER 05/11/2016 11/06/2016 Inactive Patient requests 90 days supply metformin ER 500 mg tablet,extended release 24 hr RxNorm: 292361 TAKE ONE TABLET BY MOUTH TWICE DAILY 05/04/20162016 Inactive lisinopril 20 mg tablet RxNorm: 086106 TAKE 1 TABLET BY MOUTH TWICE DAILY 04/14/2016 11/09/2016 Inactive Sinemet 25 mg-100 mg tablet RxNorm: 419291 1 Tablet(s) PO BID TAKE 1 TABLET BY MOUTH TWICE A DAY IN THE MORNING AND AT SUPPER 03/23/2016 09/18/2016 Inactive Lasix 20 mg tablet RxNorm: 871247 Tablet(s) TAKE 1 TABLET BY MOUTH ONCE DAILY FOR 1 WEEK AND THEN TAKE 1 TABLET BY MOUTH EVERY 3 DAYS THEREAFTER 03/23/2016 06/06/2016 Inactive hydrocodone 5 mg-acetaminophen 325 mg tablet RxNorm: 679779 1-2 Tablet(s) PO Q6- 8H 01/21/2016 No Stop Date Active Lantus Solostar 100 unit/mL (3 mL) subcutaneous insulin pen RxNorm: 520795 24 Unit(s) SQ daily INJECT 24 UNITS DAILY OR DIRECTED 201510/05/2016 Inactive please call patient with the [facility] Kenalog 40 mg/mL suspension for injection RxNorm: 7503593 1 Milliliter(s) Inj 01/20/2016 01/20/2016 Inactive Sinemet 25 mg-100 mg tablet RxNorm: 122962 Tablet(s) TAKE 1 TABLET BY MOUTH TWICE A DAY IN THE MORNING AND AT SUPPER 11/29/2015 03/22/2016 Inactive Lantus Solostar 100 unit/mL (3 mL) subcutaneous insulin pen RxNorm: 668521 20 Unit(s) SQ daily INJECT 20 UNITS DAILY OR DIRECTED 201501/20/2016 Inactive please call patient with the [facility] Sinemet 25 mg-100 mg tablet RxNorm: 124338 Tablet(s) TAKE 1 TABLET BY MOUTH TWICE A DAY IN THE MORNING AND AT SUPPER 11/22/2015 11/28/2015 Inactive Lantus Solostar 100 unit/mL (3 mL) subcutaneous insulin pen RxNorm: 559604 Unit( s) INJECT 20 UNITS DAILY OR DIRECTED 11/22/2015 11/24/2015 Inactive Lantus Solostar 100 unit/mL (3 mL) subcutaneous insulin pen RxNorm: 733480 INJECT 20 UNITS DAILY OR DIRECTED 09/27/2015 11/21/2015 Inactive Lasix 20 mg tablet RxNorm: 576882 TAKE 1 TABLET BY MOUTH ONCE DAILY FOR 1 WEEK AND THEN TAKE 1 TABLET BY MOUTH EVERY 3 DAYS THEREAFTER 09/2512/10/2015 Inactive Lasix 20 mg tablet RxNorm: 912297 1 Tablet(s) PO daily 201509/25/2015 Inactive glipizide 10 mg tablet RxNorm: 649775 1 Tablet(s) BID TAKE 1 TABLET BY MOUTH DAILY. 06/25/2015 06/28/2016 Inactive metformin ER 500 mg tablet,extended release 24 hr RxNorm: 570835 1 Tablet(s) PO BID 04/01/2015 05/05/2016 Inactive lisinopril 20 mg tablet RxNorm: 856880 Tablet(s) TAKE 1 TABLET BY MOUTH TWICE DAILY. 03/25/2015 07/22/2015 Inactive metformin ER 500 mg tablet,extended release 24 hr RxNorm: 992819 1 Tablet(s) PO BID 03/25/2015 03/31/2015 Inactive doxycycline hyclate 100 mg capsule RxNorm: 3966903 1 Capsule(s) PO BID 03/19/2015 04/01/2015 Inactive Sinemet 25 mg-100 mg tablet RxNorm: 750393 TAKE 1 TABLET BY MOUTH TWICE A DAY IN THE MORNING AND AT SUPPER 03/05/201511/20 Inactive doxycycline hyclate 100 mg capsule RxNorm: 6879653 1 Capsule(s) PO BID 02/20/2015 02/26/2015 Inactive metolazone 5 mg tablet RxNorm: 316042 1 Tablet(s) PO daily 07/201403/21/2015 Inactive spironolactone 50 mg tablet RxNorm: 931521 1 Tablet(s) PO daily 02/11/2015 01/02/2016 Inactive Efudex 5 % topical cream RxNorm: 898087 1 TOP BID 01/28/2015 02/10/2015 Inactive potassium chloride ER 10 mEq tablet,extended release(part/ cryst) RxNorm: 6884911 1 Tablet(s) PO daily x 1week then three times weekly with the lasix. 01/28/2015 05/27/2015 Inactive Lasix 20 mg tablet RxNorm: 643868 1 Tablet(s) PO daily x 1 week, then every three days thereafter 01/28/20152015 Inactive lisinopril 20 mg tablet RxNorm: 711370 Tablet(s) TAKE 1 TABLET BY MOUTH TWICE DAILY. 11/23/2014 03/22/2015 Inactive lisinopril 20 mg tablet RxNorm: 566041 TAKE 1 TABLET BY MOUTH TWICE DAILY. 11/22/2014 11/22/2014 Inactive Sinemet 25 mg-100 mg tablet RxNorm: 818133 1 Tablet(s) PO BID TAKE 1 TABLET BY MOUTH TWICE A DAY IN THE MORNING AND AT SUPPER 10/01/2014 03/04/2015 Inactive [ SAVINGS FOR UNINSURED PATIENTS -- BIN:848210, PCN: ASPROD1, Group: [id number], ID# [id number], Process claim through [employer], for questions: . THIS IS NOT INSURANCE.] glipizide 10 mg tablet RxNorm: 485649 1 Tablet(s) BID TAKE 1 TABLET BY MOUTH DAILY. 10/01/2014 06/24/2015 Inactive glipizide 10 mg tablet RxNorm: 115100 Tablet(s) daily TAKE 1 TABLET BY MOUTH DAILY. 08/06/2014 09/30/2014 Inactive Lantus Solostar 100 unit/mL (3 mL) subcutaneous insulin pen RxNorm: 941467 20 Unit(s) SQ daily 07/11/2014 09/26/2015 Inactive [SAVINGS FOR UNINSURED PATIENTS -- BIN:806318, PCN: ASPROD1, Group: [id number], ID# [id number], Process claim through [employer], for questions: . THIS IS NOT INSURANCE.] metformin ER 500 mg tablet,extended release 24 hr RxNorm: 482296 1 Tablet(s) PO BID 07/10/2014 03/24/2015 Inactive lisinopril 20 mg tablet RxNorm: 630319 Tablet(s) TAKE 1 TABLET BY MOUTH TWICE DAILY. 07/10/2014 11/21/2014 Inactive Lantus Solostar 100 unit/mL (3 mL) subcutaneous insulin pen RxNorm: 308059 20 Unit(s) SQ daily 05/30/2014 07/10/2014 Inactive [SAVINGS FOR UNINSURED PATIENTS -- BIN:635670, PCN: ASPROD1, Group: [id number], ID# [id number], Process claim through [employer], for questions: . THIS IS NOT INSURANCE.] Sinemet 25 mg-100 mg tablet RxNorm: 881513 Tablet(s) TAKE 1 TABLET BY MOUTH TWICE A DAY IN THE MORNING AND AT SUPPER 05/30/2014 09/30/2014 Inactive [SAVINGS FOR UNINSURED PATIENTS -- BIN:106842, PCN: ASPROD1, Group: [id number], ID# [id number], Process claim through [employer], for questions: . THIS IS NOT INSURANCE.] lisinopril 20 mg tablet RxNorm: 543333 TAKE 1 TABLET BY MOUTH TWICE DAILY. 04/09/2014 04/08/2014 Inactive glipizide 10 mg tablet RxNorm: 122811 TAKE 1 TABLET BY MOUTH TWICE DAILY. 04/09/2014 08/05/2014 Inactive glipizide 10 mg tablet RxNorm: 197800 TAKE 1 TABLET BY MOUTH TWICE DAILY. 04/09/2014 04/08/2014 Inactive lisinopril 20 mg tablet RxNorm: 407804 TAKE 1 TABLET BY MOUTH TWICE DAILY. 04/09/2014 07/09/2014 Inactive lisinopril 20 mg tablet RxNorm: 721972 Tablet(s) TAKE ONE TABLET BY MOUTH TWICE DAILY 04/06/2014 04/08/2014 Inactive [SAVINGS FOR UNINSURED PATIENTS -- BIN:559872 , PCN: ASPROD1, Group: [id number], ID# [id number], Process claim through [employer], for questions: . THIS IS NOT INSURANCE.] glipizide 10 mg tablet RxNorm: 991902 1 Tablet(s) PO BID 201304/08/2014 Inactive [SAVINGS FOR UNINSURED PATIENTS -- BIN:896480, PCN: ASPROD1, Group: [id number], ID # [id number], Process claim through [employer], for questions: . THIS IS NOT INSURANCE.] pravastatin 10 mg tablet RxNorm: 910286 TAKE ONE TABLET BY MOUTH EVERY DAY 02/26/2014 05/26/2014 Inactive Sinemet 25 mg-100 mg tablet RxNorm: 658340 TAKE 1 TABLET BY MOUTH TWICE A DAY IN THE MORNING AND AT SUPPER 01/26/201401/25 Inactive Sinemet 25 mg-100 mg tablet RxNorm: 720947 Tablet(s) TAKE 1 TABLET BY MOUTH TWICE A DAY IN THE MORNING AND AT SUPPER 01/26/2014 05/29/2014 Inactive [SAVINGS FOR UNINSURED PATIENTS -- BIN:864592, PCN: ASPROD1, Group: [id number], ID# [id number], Process claim through [employer], for questions: . THIS IS NOT INSURANCE.] Sinemet 25 mg-100 mg tablet RxNorm: 965237 TAKE 1 TABLET BY MOUTH TWICE A DAY IN THE MORNING AND AT SUPPER 01/26/201401/25 Inactive Sinemet 25 mg-100 mg tablet RxNorm: 021130 TAKE 1 TABLET BY MOUTH TWICE A DAY IN THE MORNING AND AT SUPPER 01/26/201401/25 Inactive pantoprazole 40 mg tablet,delayed release RxNorm: 042266 TAKE 1 TABLET DAILY 01/25/2014 10/07/2016 Inactive finasteride 5 mg tablet RxNorm: 344665 1 Tablet(s) PO daily 12/201309/30/2014 Inactive [SAVINGS FOR UNINSURED PATIENTS -- BIN:291380, PCN: ASPROD1, Group: [id number] , ID# [id number], Process claim through [employer], for questions: . THIS IS NOT INSURANCE.] sucralfate 100 mg/mL oral suspension RxNorm: 352831 10 Milliliter(s) PO QID 01/23/2014 09/30/2014 Inactive dispense qs x 1 month lisinopril 20 mg tablet RxNorm: 390941 TAKE ONE TABLET BY MOUTH TWICE DAILY 12/27/2013 03/26/2014 Inactive pantoprazole 40 mg tablet,delayed release RxNorm: 994559 1 Tablet(s) PO daily 12/26/2013 12/25/2013 Inactive [SAVINGS FOR UNINSURED PATIENTS -- BIN:418128, PCN: ASPROD1, Group: [id number], ID# [id number], Process claim through [employer], for questions: . THIS IS NOT INSURANCE.] pantoprazole 40 mg tablet,delayed release RxNorm: 519022 1 Tablet(s) PO daily 12/26/2013 12/20/2014 Inactive [SAVINGS FOR UNINSURED PATIENTS -- BIN:120159, PCN: ASPROD1, Group: [id number], ID# [id number], Process claim through [employer], for questions: . THIS IS NOT INSURANCE.] gemfibrozil 600 mg tablet RxNorm: 990686 1 Tablet(s) PO BID 11/201310/23/2013 Inactive gemfibrozil 600 mg tablet RxNorm: 785692 1 Tablet(s) PO BID 11/201309/30/2014 Inactive [SAVINGS FOR UNINSURED PATIENTS -- BIN:437191, PCN: ASPROD1, Group: [id number] , ID# [id number], Process claim through [employer], for questions: . THIS IS NOT INSURANCE.] finasteride 5 mg tablet RxNorm: 826637 1 Tablet(s) PO daily 04/201301/24/2014 Inactive [SAVINGS FOR UNINSURED PATIENTS -- BIN:427448, PCN: ASPROD1, Group: [id number] , ID# [id number], Process claim through [employer], for questions: . THIS IS NOT INSURANCE.] Lantus Solostar 100 unit/mL (3 mL) subcutaneous insulin pen RxNorm: 335142 20 Unit(s) SQ daily 10/09/2013 05/29/2014 Inactive [SAVINGS FOR UNINSURED PATIENTS -- BIN:367382, PCN: ASPROD1, Group: [id number], ID# [id number], Process claim through [employer], for questions: . THIS IS NOT INSURANCE.] glipizide 10 mg tablet RxNorm: 770660 1 Tablet(s) PO daily 04/05/2014 Inactive [SAVINGS FOR UNINSURED PATIENTS -- BIN:150116, PCN: ASPROD1, Group: [id number] , ID# [id number], Process claim through [email or web address], for questions: . THIS IS NOT INSURANCE.] Lantus Solostar 100 unit/mL (3 mL) subcutaneous insulin pen RxNorm: 295366 20 Unit(s) SQ daily 07/18/2013 10/08/2013 Inactive Sinemet 25 mg-100 mg tablet RxNorm: 957095 1 Tablet(s) PO BID one pill in morning , one at supper 07/10/2013 01/25/2014 Inactive Sinemet 25 mg-100 mg tablet RxNorm: 030665 1 Tablet(s) PO BID one pill in morning , one at supper 04/24/2013 07/09/2013 Inactive metformin ER 500 mg tablet,extended release 24 hr RxNorm: 702740 1 Tablet(s) PO BID 04/24/2013 04/18/2014 Inactive glipizide 10 mg tablet RxNorm: 380079 1 Tablet(s) PO daily 09/201310/08/2013 Inactive lisinopril 20 mg tablet RxNorm: 248583 1 Tablet(s) PO BID 04/2410/20/2013 Inactive pravastatin 10 mg tablet RxNorm: 833867 1 Tablet(s) PO daily 10/20/2013 Inactive Lantus Solostar 100 unit/mL (3 mL) subcutaneous insulin pen RxNorm: 506794 20 Unit(s) SQ daily 04/24/2013 07/17/2013 Inactive glipizide 10 mg tablet RxNorm: 018770 1 Tablet(s) PO daily 05/201304/23/2013 Inactive glipizide 10 mg tablet RxNorm: 095374 1 Tablet(s) PO daily 05/201204/19/2013 Inactive Lantus Solostar 100 unit/mL (3 mL) subcutaneous insulin pen RxNorm: 283011 16 Unit(s) SQ daily 03/20/2013 04/23/2013 Inactive Sinemet 25 mg-100 mg tablet RxNorm: 876853 1 Tablet(s) PO BID one pill in morning , one at supper 01/20/2013 04/23/2013 Inactive Lantus Solostar 100 unit/mL (3 mL) subcutaneous insulin pen RxNorm: 675893 16 Unit(s) SQ daily 01/19/2013 01/25/2013 Inactive Sinemet 25 mg-100 mg tablet RxNorm: 622286 1 Tablet(s) PO BID one pill in morning , one at supper 01/19/2013 01/19/2013 Inactive glipizide 10 mg tablet RxNorm: 346182 1 Tablet(s) PO BID 201203/19/2013 Inactive Lantus Solostar 100 unit/mL (3 mL) Sub-Q Insulin Pen RxNorm: 491296 12 Unit(s) SQ daily 12/21/2012 01/18/2013 Inactive lisinopril 20 mg tablet RxNorm: 081634 1 Tablet(s) PO BID 12/0804/23/2013 Inactive metformin ER 500 mg tablet,extended release 24 hr RxNorm: 857554 1 Tablet(s) PO BID 11/30/2012 04/23/2013 Inactive Lantus Solostar 100 unit/mL (3 mL) Sub-Q Insulin Pen RxNorm: 486293 5 Unit(s) SQ daily 11/30/2012 12/07/2012 Inactive FINASTERIDE TAB 5MG RxNorm: 10/03/2012 Inactive lisinopril 20 mg tablet RxNorm: 076812 1 Tablet(s) PO BID 09/0812/06/2012 Inactive glipizide 10 mg tablet RxNorm: 748602 1 Tablet(s) PO BID 201212/30/2012 Inactive metronidazole 500 mg tablet RxNorm: 512771 1 Tablet(s) PO TID 05/30/2012 06/08/2012 Inactive metformin ER 500 mg tablet,extended release 24 hr RxNorm: 711591 2 Tablet(s) PO daily 04/22/2012 11/29/2012 Inactive metformin ER 500 mg tablet,extended release 24 hr RxNorm: 173166 2 Tablet(s) PO daily 04/21/2012 04/21/2012 Inactive ketoconazole 2 % Topical Cream RxNorm: 466865 1 Application TOP BID 04/14/2012 05/04/2012 Inactive ketoconazole 2 % Shampoo RxNorm: 686725 1 Application TOP every other day apply to feet, leave on for 5 minutes, then rinse. 04/14/2012 04/27/2012 Inactive clotrimazole 1 % Topical Cream RxNorm: 395019 1 Application TOP BID 02/22/2012 04/03/2012 Inactive glipizide 10 mg tablet RxNorm: 493254 1 Tablet(s) PO BID 201106/18/2012 Inactive lisinopril 20 mg tablet RxNorm: 759472 1 Tablet(s) PO BID 09/0108/26/2012 Inactive metformin ER 500 mg tablet,extended release 24 hr RxNorm: 685347 2 Tablet(s) PO daily 08/10/2011 04/20/2012 Inactive metformin ER 1,000 mg 24 hr Tab Ctrl Rel RxNorm: 457098 1 Tablet(s) PO daily 07/28/2011 08/09/2011 Inactive Kombiglyze XR 5 mg-1,000 mg 24 hr Tab RxNorm: 1271200 1 Tablet(s) PO daily 07/28/2011 07/27/2011 Inactive Kombiglyze XR 5 mg-1,000 mg 24 hr Tab RxNorm: 6589047 1 Tablet(s) PO daily 07/28/2011 07/28/2011 Inactive glipizide 10 mg tablet RxNorm: 667183 1 Tablet(s) PO BID 201107/27/2011 Inactive glipizide 10 mg Tab RxNorm: 112261 1 Tablet(s) PO BID 201106/16/2011 Inactive glipizide 10 mg Tab RxNorm: 449194 1 Tablet(s) PO BID 201006/15/2011 Inactive glipizide 10 mg Tab RxNorm: 280179 1 Tablet(s) PO BID 201004/01/2011 Inactive glipizide 10 mg Tab RxNorm: 206158 Tablet(s) PO BID 201003/31/2011 Inactive Calcium + Vitamin D 600 mg calcium-200 unit tablet RxNorm: 854107 1 Tablet(s) PO BID No Start Date Active pantoprazole 40 mg tablet,delayed release RxNorm: 182906 1 Tablet(s) PO daily No Start Date 12/25/2013 Inactive Sinemet 25 mg-100 mg tablet RxNorm: 517767 1/2 Tablet(s) PO BID one pill in morning, one at supper No Start Date 01/18 Inactive levothyroxine 100 mcg tablet RxNorm: 381566 1 Tablet(s) PO daily No Start Date 10/04/2016 Inactive lisinopril 20 mg Tab RxNorm: 286891 1 Tablet(s) PO BID No Start Date 09/01/2011 Inactive hydrocodone 5 mg-acetaminophen 325 mg tablet RxNorm: 027717 1-2 Tablet(s) PO Q6- 8H No Start Date 01/20/2016 Inactive pravastatin 10 mg tablet RxNorm: 421170 1 Tablet(s) PO daily No Start Date 04/23/2013 Inactive Medication Administered Medication Codes Instructions Start Date Status Kenalog 40 mg/mL suspension for injection RxNorm: 0986043 1Milliliter 07/30/2016 No longer Active Kenalog 40 mg/mL suspension for injection RxNorm: 4329676 1Milliliter 01/20/2016 No longer Active Immunizations Vaccine Codes Date Status PPD Unknown 03/20/2015 completed Pneumococcal (Adult) CVX: 133 03/08/2015 completed Pneumococcal (Adult) CVX: 33 01/23/2014 completed Influenza CVX: 141 01/19/2013 completed Assessments Condition Codes Effective Dates Essential (primary) hypertension ICD-10: I10 ICD-9: 401.1 05/13/2017 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 ICD-9: 244.8 05/13/2017 Localized edema ICD-10: R60.0 ICD-9: 782.3 05/13/2017 Type 2 diabetes mellitus without complications ICD-10: E11.9 ICD-9: 250.00 05/13/2017 Rash and other nonspecific skin eruption ICD-10: R21 ICD-9: 782.1 04/28/2017 Hypothyroidism, unspecified ICD-10: E03.9 ICD-9: 244.9 02/04/2017 Essential (primary) hypertension ICD-10: I10 ICD-9: 401.9 02/04/2017 Type 2 diabetes mellitus with hyperglycemia ICD-10: E11.65 ICD-9: 250.00 02/04/2017 Encounter for general adult medical examination with abnormal findings ICD-10: Z00.01 ICD-9: V70.0 10/12/2016 Allergic rhinitis due to pollen ICD-10: J30.1 ICD-9: 477.0 09/10/2016 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64 04/27/2016 Low back pain ICD-10: M54.5 ICD-9: 724.2 01/20/2016 Type 2 diabetes mellitus with hyperglycemia ICD-10: E11.65 ICD-9: 250.02 12/16/2015 Unspecified open wound, right ankle, initial encounter ICD- 10: S91.001A ICD-9: 891.0 07/25/2015 Encounter for other specified aftercare ICD-10: Z51.89 ICD-9: V58.89 03/20/2015 Cutaneous abscess of chest wall ICD-10: L02.213 ICD-9: 682.2 03/19/2015 Encounter for immunization ICD-10: Z23 ICD-9: V03.82 03/08/2015 Edema, unspecified ICD-10: R60.9 ICD-9: 782.3 03/04/2015 ESSENTIAL HYPERTENSION ICD-9: 401.9 10/01 Parkinsons disease ICD-9: 332.0 2014 DIABETES TYPE II ICD-9: 250.00 2014 Back pain ICD-9: 724.5 02/28/2014 Esophageal ulcer ICD-9: 530.20 2013 ESOPHAGEAL REFLUX ICD-9: 530.81 2013 ACTINIC KERATOSIS ICD-9: 702.0 2013 Diabetes type 2, uncontrolled ICD-9: 250.02 10/17/2013 ELEVATED PSA ICD-9: 790.93 10/17/2013 Sleep apnea ICD-9: 780.57 07/24/2013 ENCNTR LONG-RX USE NEC ICD-9: V58.69 HYPERLIPIDEMIA ICD-9: 272.4 05/05/2013 Routine physicl lab exam ICD-9: V72.62 Gait instability ICD-9: 781.2 11/30/2012 Abdominal pain ICD-9: 789.00 05/30/2012 Gastroenteritis ICD-9: 558.9 04/26/2012 Claw toe ICD-9: 735.5 04/14/2012 Rash ICD-9: 782.1 02/22/2012 DERMATOPHYTOSIS OF FOOT ICD-9: 110.4 08/2011 Constipation - functional ICD-9: 564.09 01/13/2012 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 08/06/2011 Sacroiliitis ICD-9: 720.2 08/05/2011 LUMBAGO ICD-9: 724.2 08/05/2011 Breast mass in male ICD-9: 611.72 2011 Chronic hyponatremia ICD-9: 276.1 2011 Prostate cancer screening ICD-9: V76.44 06/25/2011 Reason For Visit Reason For Visit Effective Dates Notes rash 05/13/2017 rash 04/28/2017 hypertension 04/15/2017 hypothyroid 02/04/2017 Annual Medicare Wellness Exam 10/12/2016 hypothyroid 10/08/2016 Hospital Follow Up 09/10/2016 ongoing fatigue 08/24/2016 ongoing cough 08/06/2016 cough 07/30/2016 fatigue 06/22/2016 blood pressure followup 04/27/2016 blood pressure followup 03/23/2016 blood pressure followup 01/20/2016 blood pressure followup 12/16/2015 Hospital Follow Up 12/09/2015 hypertension 11/25/2015 edema 09/02/2015 edema 08/05/2015 skin lesion 07/25/2015 blood pressure followup 06/03/2015 wound follow up 03/27/2015 wound follow up 03/26/2015 wound follow up 03/25/2015 wound follow up 03/22/2015 wound follow up 03/21/2015 wound follow up 03/20/2015 cyst 03/19/2015 vaccination against pneumonia 03/08/2015 blisters 03/04/2015 blisters 02/20/2015 hypertension 02/11/2015 hypertension 01/28/2015 hypertension 10/01/2014 hypertension 05/30/2014 hypertension 02/28/2014 hypertension 01/23/2014 hypertension 12/26/2013 office procedure 10/24/2013 diabetes mellitus 10/17/2013 hypertension 07/24/2013 diabetes mellitus 04/24/2013 cyst 03/20/2013 diabetes mellitus 01/19/2013 skin lesion 12/26/2012 diabetes mellitus 12/21/2012 diabetes mellitus 11/30/2012 abdominal pain 05/30/2012 diarrhea 04/26/2012 diabetes mellitus 04/14/2012 rash 02/22/2012 hypertension 01/13/2012 hypertension 09/02/2011 back pain 08/05/2011 diabetes mellitus 07/01/2011 Results Observation Observation Code Item Item Code Result Date %Hba1C Vkc179 % HbA1c 55610-8 7.0 % 05/13/2017 %Hba1C Sjk919 Gluc Ave 154 mg/dL 05/13/2017 Free T4 Nky791 FREE T4 1.29 ng/dL 05/13/2017 Tsh Ord6 TSH (3rd IS) 4.14 uIU/mL 05/13/2017 Tsh Ord6 hTSH II 9.43 uIU/mL 02/02/2017 Comp Metabolic Rec229 NA 134 mEq/L 02/02/2017 Comp Metabolic Jkw262 K 4.4 mEq/L 02/02/2017 Comp Metabolic Jtv336 CL 99 mEq/L 02/02/2017 Comp Metabolic Kby553 CO2 26.0 mEq/L 02/02/2017 Comp Metabolic Rty290 ANION GAP 13 02/02/2017 Comp Metabolic Gdq135 GLUCOSE 256 mg/dL 02/02/2017 Comp Metabolic Fgf953 Creat 1.6 mg/dL 02/02/2017 Comp Metabolic Fah406 eGFR 45 ml/min/1.73m2 02/02/2017 Comp Metabolic Now513 BUN 26 mg/dL 02/02/2017 Comp Metabolic Zed622 B/C Ratio 16.6 Ratio 02/02/2017 Comp Metabolic Jhb916 CALCIUM 8.7 mg/dL 02/02/2017 Comp Metabolic Iqo857 ALK PHOS 63 U/L 02/02/2017 Comp Metabolic Ivn085 AST(SGOT) 11 U/L 02/02/2017 Comp Metabolic Fol881 ALT(SGPT) 9 U/L 02/02/2017 Comp Metabolic Qvd978 BILI T 0.5 mg/dL 02/02/2017 Comp Metabolic Svd364 ALBUMIN 3.7 g/dL 02/02/2017 Comp Metabolic Cuw099 TPRO 6.1 g/dL 02/02/2017 Comp Metabolic Sat942 GLOB 2.4 g/dL 02/02/2017 Comp Metabolic Fxw146 A/G Ratio 1.6 Ratio 02/02/2017 Comp Metabolic Ykq856 Osmo 282 mOsmo 02/02/2017 %Hba1C Ssm976 % HbA1c 93410-4 7.5 % 02/02/2017 %Hba1C Nuk819 Gluc Ave 169 mg/dL 02/02/2017 Free T4 Msw394 FREE T4 1.23 ng/dL 02/02/2017 Cbc With Differential Ord2 WBC 8.16 K/ul 02/02/2017 Cbc With Differential Ord2 RBC 4.42 M/ul 02/02/2017 Cbc With Differential Ord2 HGB 13.8 g/dl 02/02/2017 Cbc With Differential Ord2 HCT 41.1 % 02/02/2017 Cbc With Differential Ord2 Neut% 54.9 % 02/02/2017 Cbc With Differential Ord2 Lymph% 32.0 % 02/02/2017 Cbc With Differential Ord2 MCV 93.0 fl 02/02/2017 Cbc With Differential Ord2 [place]% 9.6 % 02/02/2017 Cbc With Differential Ord2 MCH 31.2 pg 02/02/2017 Cbc With Differential Ord2 MCHC 33.6 pg 02/02/2017 Cbc With Differential Ord2 Eos% 2.9 % 02/02/2017 Cbc With Differential Ord2 Baso% 0.6 % 02/02/2017 Cbc With Differential Ord2 PLT 151 K/ul 02/02/2017 Cbc With Differential Ord2 Neut ABS# 4.48 K/ul 02/02/2017 Cbc With Differential Ord2 RDW 14.1 % 02/02/2017 Cbc With Differential Ord2 Lymph ABS# 2.61 K/ul 02/02/2017 Cbc With Differential Ord2 [place] ABS# 0.8 K/ul 02/02/2017 Cbc With Differential Ord2 Eos ABS# 0.2 K/ul 02/02/2017 Cbc With Differential Ord2 Baso ABS# 0.1 K/ul 02/02/2017 Total T3 Ord42 TT3 0.59 ng/ml 07/14/2016 Free T4 Odb841 FREE T4 1.14 ng/dL 07/14/2016 Cbc With Differential Ord2 WBC 6.90 K/ul 06/22/2016 Cbc With Differential Ord2 RBC 4.50 M/ul 06/22/2016 Cbc With Differential Ord2 HGB 14.3 g/dl 06/22/2016 Cbc With Differential Ord2 Neut% 51.6 % 06/22/2016 Cbc With Differential Ord2 HCT 42.6 % 06/22/2016 Cbc With Differential Ord2 MCV 94.7 fl 06/22/2016 Cbc With Differential Ord2 Lymph% 34.9 % 06/22/2016 Cbc With Differential Ord2 [place]% 9.9 % 06/22/2016 Cbc With Differential Ord2 MCH 31.8 pg 06/22/2016 Cbc With Differential Ord2 Eos% 3.3 % 06/22/2016 Cbc With Differential Ord2 MCHC 33.6 pg 06/22/2016 Cbc With Differential Ord2 Baso% 0.3 % 06/22/2016 Cbc With Differential Ord2 PLT 165 K/ul 06/22/2016 Cbc With Differential Ord2 Neut ABS# 3.56 K/ul 06/22/2016 Cbc With Differential Ord2 RDW 13.9 % 06/22/2016 Cbc With Differential Ord2 Lymph ABS# 2.41 K/ul 06/22/2016 Cbc With Differential Ord2 [place] ABS# 0.7 K/ul 06/22/2016 Cbc With Differential Ord2 Eos ABS# 0.2 K/ul 06/22/2016 Cbc With Differential Ord2 Baso ABS# 0.0 K/ul 06/22/2016 Comp Metabolic Mqi050 NA 134 mEq/L 06/22/2016 Comp Metabolic Pqw809 K 4.3 mEq/L 06/22/2016 Comp Metabolic Vrj500 CL 100 mEq/L 06/22/2016 Comp Metabolic Gna006 CO2 26.0 mEq/L 06/22/2016 Comp Metabolic Fvf003 ANION GAP 12 06/22/2016 Comp Metabolic Obn479 GLUCOSE 222 mg/dL 06/22/2016 Comp Metabolic Ksj466 Creat 1.5 mg/dL 06/22/2016 Comp Metabolic Jya459 eGFR 49 ml/min/1.73m2 06/22/2016 Comp Metabolic Tng121 BUN 23 mg/dL 06/22/2016 Comp Metabolic Ioz968 B/C Ratio 15.9 Ratio 06/22/2016 Comp Metabolic Ljg959 CALCIUM 9.0 mg/dL 06/22/2016 Comp Metabolic Gla092 ALK PHOS 59 U/L 06/22/2016 Comp Metabolic Ueo156 AST(SGOT) 13 U/L 06/22/2016 Comp Metabolic Ddp359 ALT(SGPT) 11 U/L 06/22/2016 Comp Metabolic Yqr108 BILI T 0.5 mg/dL 06/22/2016 Comp Metabolic Ccg251 ALBUMIN 3.8 g/dL 06/22/2016 Comp Metabolic Prn269 TPRO 6.2 g/dL 06/22/2016 Comp Metabolic Yul785 GLOB 2.4 g/dL 06/22/2016 Comp Metabolic Ond794 A/G Ratio 1.6 Ratio 06/22/2016 Comp Metabolic Vad999 Osmo 279 mOsmo 06/22/2016 Tsh Ord6 hTSH II 0.44 uIU/mL 06/22/2016 Comp Metabolic Gpn231 NA 134 mEq/L 04/27/2016 Comp Metabolic Jtz183 K 4.6 mEq/L 04/27/2016 Comp Metabolic Xit282 CL 99 mEq/L 04/27/2016 Comp Metabolic Qtz950 CO2 27.0 mEq/L 04/27/2016 Comp Metabolic Baw264 ANION GAP 13 04/27/2016 Comp Metabolic Kbo640 GLUCOSE 178 mg/dL 04/27/2016 Comp Metabolic Itp608 Creat 1.4 mg/dL 04/27/2016 Comp Metabolic Lla748 eGFR 53 ml/min/1.73m2 04/27/2016 Comp Metabolic Den091 BUN 24 mg/dL 04/27/2016 Comp Metabolic Wzn394 B/C Ratio 17.5 Ratio 04/27/2016 Comp Metabolic Xvc308 CALCIUM 9.1 mg/dL 04/27/2016 Comp Metabolic Fjl541 ALK PHOS 72 U/L 04/27/2016 Comp Metabolic Nkj084 AST(SGOT) 16 U/L 04/27/2016 Comp Metabolic Nmx124 ALT(SGPT) 12 U/L 04/27/2016 Comp Metabolic Lbz425 BILI T 0.6 mg/dL 04/27/2016 Comp Metabolic Shk586 ALBUMIN 4.1 g/dL 04/27/2016 Comp Metabolic Rzo647 TPRO 6.8 g/dL 04/27/2016 Comp Metabolic Zua110 GLOB 2.7 g/dL 04/27/2016 Comp Metabolic Zka569 A/G Ratio 1.6 Ratio 04/27/2016 Comp Metabolic Spp989 Osmo 277 mOsmo 04/27/2016 Cbc With Differential Ord2 WBC 8.72 K/ul 04/27/2016 Cbc With Differential Ord2 RBC 4.83 M/ul 04/27/2016 Cbc With Differential Ord2 HGB 15.4 g/dl 04/27/2016 Cbc With Differential Ord2 HCT 45.3 % 04/27/2016 Cbc With Differential Ord2 Neut% 54.1 % 04/27/2016 Cbc With Differential Ord2 MCV 93.8 fl 04/27/2016 Cbc With Differential Ord2 Lymph% 33.1 % 04/27/2016 Cbc With Differential Ord2 [place]% 9.7 % 04/27/2016 Cbc With Differential Ord2 MCH 31.9 pg 04/27/2016 Cbc With Differential Ord2 Eos% 2.8 % 04/27/2016 Cbc With Differential Ord2 MCHC 34.0 pg 04/27/2016 Cbc With Differential Ord2 PLT 159 K/ul 04/27/2016 Cbc With Differential Ord2 Baso% 0.3 % 04/27/2016 Cbc With Differential Ord2 RDW 13.8 % 04/27/2016 Cbc With Differential Ord2 Neut ABS# 4.71 K/ul 04/27/2016 Cbc With Differential Ord2 Lymph ABS# 2.89 K/ul 04/27/2016 Cbc With Differential Ord2 [place] ABS# 0.9 K/ul 04/27/2016 Cbc With Differential Ord2 Eos ABS# 0.2 K/ul 04/27/2016 Cbc With Differential Ord2 Baso ABS# 0.0 K/ul 04/27/2016 %Hba1C Lxf737 % HbA1c 75023-7 7.2 % 04/27/2016 %Hba1C Wiu632 Gluc Ave 160 mg/dL 04/27/2016 Cbc With Differential Ord2 WBC 6.62 K/ul 01/21/2016 Cbc With Differential Ord2 RBC 4.55 M/ul 01/21/2016 Cbc With Differential Ord2 HGB 14.1 g/dl 01/21/2016 Cbc With Differential Ord2 HCT 42.3 % 01/21/2016 Cbc With Differential Ord2 Neut% 59.6 % 01/21/2016 Cbc With Differential Ord2 MCV 93.0 fl 01/21/2016 Cbc With Differential Ord2 Lymph% 28.9 % 01/21/2016 Cbc With Differential Ord2 MCH 31.0 pg 01/21/2016 Cbc With Differential Ord2 [place]% 8.9 % 01/21/2016 Cbc With Differential Ord2 MCHC 33.3 pg 01/21/2016 Cbc With Differential Ord2 Eos% 2.3 % 01/21/2016 Cbc With Differential Ord2 PLT 145 K/ul 01/21/2016 Cbc With Differential Ord2 Baso% 0.3 % 01/21/2016 Cbc With Differential Ord2 RDW 14.5 % 01/21/2016 Cbc With Differential Ord2 Neut ABS# 3.95 K/ul 01/21/2016 Cbc With Differential Ord2 Lymph ABS# 1.91 K/ul 01/21/2016 Cbc With Differential Ord2 [place] ABS# 0.6 K/ul 01/21/2016 Cbc With Differential Ord2 Eos ABS# 0.2 K/ul 01/21/2016 Cbc With Differential Ord2 Baso ABS# 0.0 K/ul 01/21/2016 Comp Metabolic Dqa472 NA 134 mEq/L 01/21/2016 Comp Metabolic Ubu765 K 5.0 mEq/L 01/21/2016 Comp Metabolic Dji821 CL 99 mEq/L 01/21/2016 Comp Metabolic Ecw320 CO2 26.0 mEq/L 01/21/2016 Comp Metabolic Gis164 ANION GAP 14 01/21/2016 Comp Metabolic Yke005 GLUCOSE 260 mg/dL 01/21/2016 Comp Metabolic Vyb247 Creat 1.5 mg/dL 01/21/2016 Comp Metabolic Moi722 eGFR 50 ml/min/1.73m2 01/21/2016 Comp Metabolic Xrf037 BUN 18 mg/dL 01/21/2016 Comp Metabolic Xnf410 B/C Ratio 12.4 Ratio 01/21/2016 Comp Metabolic Xvu663 CALCIUM 8.8 mg/dL 01/21/2016 Comp Metabolic Yip048 ALK PHOS 68 U/L 01/21/2016 Comp Metabolic Irc948 AST(SGOT) 16 U/L 01/21/2016 Comp Metabolic Jbq447 ALT(SGPT) 16 U/L 01/21/2016 Comp Metabolic Ijn605 BILI T 0.5 mg/dL 01/21/2016 Comp Metabolic Awx432 ALBUMIN 3.8 g/dL 01/21/2016 Comp Metabolic Flp976 TPRO 6.3 g/dL 01/21/2016 Comp Metabolic Hfj331 GLOB 2.5 g/dL 01/21/2016 Comp Metabolic Vzm159 A/G Ratio 1.5 Ratio 01/21/2016 Comp Metabolic Tqx810 Osmo 279 mOsmo 01/21/2016 %Hba1C Rws793 % HbA1c 67676-6 7.4 % 01/21/2016 %Hba1C Xxf142 Gluc Ave 166 mg/dL 01/21/2016 Metabolic Ord15 NA 127 mEq/L 12/17/2015 Metabolic Ord15 K 4.8 mEq/L 12/17/2015 Metabolic Ord15 CL 96 mEq/L 12/17/2015 Metabolic Ord15 CO2 25.0 mEq/L 12/17/2015 Metabolic Ord15 GLUCOSE 192 mg/dL 12/17/2015 Metabolic Ord15 BUN 23 mg/dL 12/17/2015 Metabolic Ord15 Creat 1.4 mg/dL 12/17/2015 Metabolic Ord15 B/C Ratio 16.4 Ratio 12/17/2015 Metabolic Ord15 eGFR 52 ml/min/1.73m2 12/17/2015 Metabolic Ord15 Osmo 264 mOsmo 12/17/2015 Metabolic Ord15 ANION GAP 11 12/17/2015 Metabolic Ord15 CALCIUM 9.0 mg/dL 12/17/2015 Magnesium Ord90 Mag 2.0 mg/dL 12/17/2015 Metabolic Ord15 NA 130 mEq/L 12/10/2015 Metabolic Ord15 K 4.5 mEq/L 12/10/2015 Metabolic Ord15 CL 96 mEq/L 12/10/2015 Metabolic Ord15 CO2 28.0 mEq/L 12/10/2015 Metabolic Ord15 GLUCOSE 218 mg/dL 12/10/2015 Metabolic Ord15 BUN 21 mg/dL 12/10/2015 Metabolic Ord15 Creat 1.5 mg/dL 12/10/2015 Metabolic Ord15 B/C Ratio 14.4 Ratio 12/10/2015 Metabolic Ord15 eGFR 49 ml/min/1.73m2 12/10/2015 Metabolic Ord15 Osmo 270 mOsmo 12/10/2015 Metabolic Ord15 ANION GAP 11 12/10/2015 Metabolic Ord15 CALCIUM 9.0 mg/dL 12/10/2015 Sed Rate Ord21 ESR 8 mm/hr 09/17/2015 C-Reactive Protein Qnt Crqnt CRP 1.5 mg/dl 09/17/2015 %Hba1C Rie283 % HbA1c 82349-7 7.1 % 09/17/2015 %Hba1C Kpu133 Gluc Ave 157 mg/dL 09/17/2015 Cbc With Differential Ord2 WBC 7.59 K/ul 08/06/2015 Cbc With Differential Ord2 RBC 4.39 M/ul 08/06/2015 Cbc With Differential Ord2 HGB 13.9 g/dl 08/06/2015 Cbc With Differential Ord2 Neut% 49.9 % 08/06/2015 Cbc With Differential Ord2 HCT 43.5 % 08/06/2015 Cbc With Differential Ord2 Lymph% 38.2 % 08/06/2015 Cbc With Differential Ord2 MCV 99.1 fl 08/06/2015 Cbc With Differential Ord2 MCH 31.7 pg 08/06/2015 Cbc With Differential Ord2 [place]% 9.6 % 08/06/2015 Cbc With Differential Ord2 MCHC 32.0 pg 08/06/2015 Cbc With Differential Ord2 Eos% 2.0 % 08/06/2015 Cbc With Differential Ord2 Baso% 0.3 % 08/06/2015 Cbc With Differential Ord2 PLT 165 K/ul 08/06/2015 Cbc With Differential Ord2 RDW 14.8 % 08/06/2015 Cbc With Differential Ord2 Neut ABS# 3.79 K/ul 08/06/2015 Cbc With Differential Ord2 Lymph ABS# 2.90 K/ul 08/06/2015 Cbc With Differential Ord2 [place] ABS# 0.7 K/ul 08/06/2015 Cbc With Differential Ord2 Eos ABS# 0.2 K/ul 08/06/2015 Cbc With Differential Ord2 Baso ABS# 0.0 K/ul 08/06/2015 Cbc With Differential Ord2 New Analyzer Notice Please note new ref ranges starting 05-01-2015 due to implemntation of new five part differential hematolgy analyzer. 08/06/2015 Comp Metabolic Bcp530 NA 132 mEq/L 08/06/2015 Comp Metabolic Vrd222 K 4.6 mEq/L 08/06/2015 Comp Metabolic Dox629 CL 98 mEq/L 08/06/2015 Comp Metabolic Mcj871 CO2 25.0 mEq/L 08/06/2015 Comp Metabolic Ovi082 ANION GAP 14 08/06/2015 Comp Metabolic Gmr702 GLUCOSE 170 mg/dL 08/06/2015 Comp Metabolic Hkc555 Creat 1.5 mg/dL 08/06/2015 Comp Metabolic Feq214 eGFR 46 ml/min/1.73m2 08/06/2015 Comp Metabolic Zub965 BUN 21 mg/dL 08/06/2015 Comp Metabolic Hav994 B/C Ratio 13.6 Ratio 08/06/2015 Comp Metabolic Mrx072 CALCIUM 8.9 mg/dL 08/06/2015 Comp Metabolic Dpf088 ALK PHOS 60 U/L 08/06/2015 Comp Metabolic Mjz943 AST(SGOT) 16 U/L 08/06/2015 Comp Metabolic Ljd643 ALT(SGPT) 18 U/L 08/06/2015 Comp Metabolic Sog853 BILI T 0.4 mg/dL 08/06/2015 Comp Metabolic Jbl770 ALBUMIN 3.8 g/dL 08/06/2015 Comp Metabolic Hyv720 TPRO 6.3 g/dL 08/06/2015 Comp Metabolic Nbk115 GLOB 2.5 g/dL 08/06/2015 Comp Metabolic Dpw162 A/G Ratio 1.6 Ratio 08/06/2015 Comp Metabolic Upe555 Osmo 271 mOsmo 08/06/2015 Tsh Ord6 hTSH II 0.95 uIU/mL 06/17/2015 Free T4 Bqi278 FREE T4 1.08 ng/dL 06/17/2015 Metabolic Ord15 NA 133 mEq/L 05/06/2015 Metabolic Ord15 K 4.6 mEq/L 05/06/2015 Metabolic Ord15 CL 98 mEq/L 05/06/2015 Metabolic Ord15 CO2 25.0 mEq/L 05/06/2015 Metabolic Ord15 GLUCOSE 137 mg/dL 05/06/2015 Metabolic Ord15 BUN 16 mg/dL 05/06/2015 Metabolic Ord15 Creat 1.3 mg/dL 05/06/2015 Metabolic Ord15 B/C Ratio 12.2 Ratio 05/06/2015 Metabolic Ord15 eGFR 56 ml/min/1.73m2 05/06/2015 Metabolic Ord15 Osmo 270 mOsmo 05/06/2015 Metabolic Ord15 ANION GAP 15 05/06/2015 Metabolic Ord15 CALCIUM 9.0 mg/dL 05/06/2015 Comp Metabolic Mvh572 NA 143 mEq/L 03/04/2015 Comp Metabolic Mux723 K 4.5 mEq/L 03/04/2015 Comp Metabolic Alw143 CL 92 mEq/L 03/04/2015 Comp Metabolic Lur694 CO2 24.0 mEq/L 03/04/2015 Comp Metabolic Dly770 ANION GAP 32 03/04/2015 Comp Metabolic Omk543 GLUCOSE 72 mg/dL 03/04/2015 Comp Metabolic Knc897 Creat 1.5 mg/dL 03/04/2015 Comp Metabolic Pzp655 eGFR 48 ml/min/1.73m2 03/04/2015 Comp Metabolic Dte100 BUN 27 mg/dL 03/04/2015 Comp Metabolic Kwc675 B/C Ratio 18.0 Ratio 03/04/2015 Comp Metabolic Ycm893 CALCIUM 9.1 mg/dL 03/04/2015 Comp Metabolic Kcu839 ALK PHOS 58 U/L 03/04/2015 Comp Metabolic Kxb919 AST(SGOT) 16 U/L 03/04/2015 Comp Metabolic Uoi471 ALT(SGPT) 13 U/L 03/04/2015 Comp Metabolic Iyb827 BILI T 0.6 mg/dL 03/04/2015 Comp Metabolic Uju707 ALBUMIN 4.0 g/dL 03/04/2015 Comp Metabolic Jyu679 TPRO 6.6 g/dL 03/04/2015 Comp Metabolic Umx853 GLOB 2.6 g/dL 03/04/2015 Comp Metabolic Qud783 A/G Ratio 1.6 Ratio 03/04/2015 Comp Metabolic Xjx715 Osmo 289 mOsmo 03/04/2015 %Hba1C Kfj496 % HbA1c 93857-9 7.3 % 01/28/2015 %Hba1C Ftn439 Gluc Ave 163 mg/dL 01/28/2015 MICRALUR 2001991 MICRL MG/L 13.2 MG/L 10/01/2014 MICRALUR 3118497 XM.ALB/CRE 48.9 MG/GCR 10/01/2014 MICRALUR 5300962 CREAT MG/D 27 MG/DL 10/01/2014 MICRALUR 6487827 CRE/100 0.27 G/L 10/01/2014 A1C HPLC [id number] A1C HPLC 39523-8 7.3 % 10/01/2014 TSH 4911790 TSH 0.423 uIU/ML 10/01/2014 TSH 4402554 TSH 0.612 uIU/ML 10/18/2013 A1C HPLC [id number] A1C HPLC 55564-9 6.8 % 10/18/2013 GFR CALC 2150829 GFR AA >60 ML/MIN 10/18/2013 GFR CALC 8196777 GFR NON-AA 52.0L ML/MIN 10/18/2013 LIPID GRP HDL TEST 30 MG/DL 10/18/2013 LIPID GRP TRIG 425 MG/DL 10/18/2013 LIPID GRP TEST LDL HI TRIG MG/DL 10/18/2013 LIPID GRP CHOL 185 MG/DL 10/18/2013 LIPID GRP RCHOL/HDL 6.17 RATIO 10/18/2013 MICRALUR 0045674 MICRL MG/L 15.6 MG/L 10/18/2013 MICRALUR XM.ALB/CRE 9.2 MG/GCR 10/18/2013 MICRALUR 3059830 CREAT MG/D 169 MG/DL 10/18/2013 MICRALUR 4835685 CRE/100 1.69 G/L 10/18/2013 CHEM 14 7987765 AST 20 U/L 10/18/2013 CHEM 14 3666612 ALT 13 IU/L 10/18/2013 CHEM 14 8947822 BUN 27 MG/DL 10/18/2013 CHEM 14 4723725 ALBUMIN 4.2 GM/DL 10/18/2013 CHEM 14 3644579 CHLORIDE 100 MMOL/L 10/18/2013 CHEM 14 8913124 BILI TOT 0.5 MG/DL 10/18/2013 CHEM 14 0706807 ALK PHOS 60 U/L 10/18/2013 CHEM 14 6936114 SODIUM 131 MMOL/L 10/18/2013 CHEM 14 7445136 CREATININE 1.32 MG/DL 10/18/2013 CHEM 14 2330400 CALCIUM 9.2 MG/DL 10/18/2013 CHEM 14 7984633 POTASSIUM 4.7 MMOL/L 10/18/2013 CHEM 14 8660586 PROT TOT 7.7 GM/DL 10/18/2013 CHEM 14 5171267 GLUCOSE 140 MG/DL 10/18/2013 CHEM 14 2539964 BICARB 24 MMOL/L 10/18/2013 CHEM 14 8523974 ANION GAP 7 MEQ/L 10/18/2013 PSA EQ 20110613 PSA EQ 7.79 NG/ML 10/18/2013 CBC 7420729 WBC 6.6 10e9/L 10/18/2013 CBC 2030448 RBC 4.58 10e12/L 10/18/2013 CBC [id number] HGB 14.6 g/dL 10/18/2013 CBC [id number] HCT DET 42.8 % 10/18/2013 CBC [id number] MCV 93.4 fL 10/18/2013 CBC [id number] MCH 31.9 pg 10/18/2013 CBC [id number] MCHC 34.1 g/dL 10/18/2013 CBC [id number] PLT 172 10e9/L 10/18/2013 CBC [id number] MPV 9.3 fL 10/18/2013 CBC [id number] JAYESH % 55.4 % 10/18/2013 CBC [id number] LY % 33.0 % 10/18/2013 CBC [id number] MON % 8.8 % 10/18/2013 CBC [id number] EOS % 2.6 % 10/18/2013 CBC [id number] BASO % 0.2 % 10/18/2013 CBC [id number] RDW 12.7 % 10/18/2013 CBC [id number] ABS JAYESH 3.66 10e9/L 10/18/2013 CBC [id number] ABS LYMPH 2.18 10e9/L 10/18/2013 CBC [id number] ABS MONO 0.58 10e9/L 10/18/2013 CBC [id number] ABS EOS 0.17 10e9/L 10/18/2013 CBC [id number] ABS BASO 0.01 10e9/L 10/18/2013 CBC [id number] RDW-SD 42.6 fL 10/18/2013 TSH [id number] TSH 1.257 uIU/ML 05/05/2013 CHEM 14 [id number] AST 15 U/L 05/05/2013 CHEM 14 [id number] ALT 13 IU/L 05/05/2013 CHEM 14 [id number] BUN 22 MG/DL 05/05/2013 CHEM 14 [id number] ALBUMIN 4.2 GM/DL 05/05/2013 CHEM 14 [id number] CHLORIDE 104 MMOL/L 05/05/2013 CHEM 14 [id number] BILI TOT 0.6 MG/DL 05/05/2013 CHEM 14 [id number] ALK PHOS 52 U/L 05/05/2013 CHEM 14 [id number] SODIUM 137 MMOL/L 05/05/2013 CHEM 14 [id number] CREATININE 1.25 MG/DL 05/05/2013 CHEM 14 [id number] CALCIUM 9.1 MG/DL 05/05/2013 CHEM 14 [id number] POTASSIUM 5.0 MMOL/L 05/05/2013 CHEM 14 [id number] PROT TOT 6.7 GM/DL 05/05/2013 CHEM 14 [id number] GLUCOSE 142 MG/DL 05/05/2013 CHEM 14 [id number] BICARB 27 MMOL/L 05/05/2013 CHEM 14 [id number] ANION GAP 6 MEQ/L 05/05/2013 GFR CALC [id number] GFR AA >60 ML/MIN 05/05/2013 GFR CALC [id number] GFR NON-AA 56.0L ML/MIN 05/05/2013 CBC [id number] WBC 6.1 10e9/L 05/05/2013 CBC [id number] RBC 4.74 10e12/L 05/05/2013 CBC [id number] HGB 14.7 g/dL 05/05/2013 CBC [id number] HCT DET 43.6 % 05/05/2013 CBC [id number] MCV 92.0 fL 05/05/2013 CBC [id number] MCH 31.0 pg 05/05/2013 CBC [id number] MCHC 33.7 g/dL 05/05/2013 CBC [id number] PLT 168 10e9/L 05/05/2013 CBC [id number] MPV 9.3 fL 05/05/2013 CBC [id number] JAYESH % 53.2 % 05/05/2013 CBC [id number] LY % 35.3 % 05/05/2013 CBC [id number] MON % 8.7 % 05/05/2013 CBC [id number] EOS % 2.5 % 05/05/2013 CBC [id number] BASO % 0.3 % 05/05/2013 CBC [id number] RDW 13.5 % 05/05/2013 CBC [id number] ABS JAYESH 3.25 10e9/L 05/05/2013 CBC [id number] ABS LYMPH 2.15 10e9/L 05/05/2013 CBC [id number] ABS MONO 0.53 10e9/L 05/05/2013 CBC [id number] ABS EOS 0.15 10e9/L 05/05/2013 CBC [id number] ABS BASO 0.02 10e9/L 05/05/2013 CBC [id number] RDW-SD 44.8 fL 05/05/2013 A1C HPLC [id number] A1C HPLC 66136-2 6.4 % 05/05/2013 LIPID GRP HDL TEST 32 MG/DL 05/05/2013 LIPID GRP TRIG 170 MG/DL 05/05/2013 LIPID GRP TEST LDL 73 MG/DL 05/05/2013 LIPID GRP CHOL 139 MG/DL 05/05/2013 LIPID GRP RCHOL/HDL 4.34 RATIO 05/05/2013 CHEM 14 [id number] AST 17 U/L 11/25/2012 CHEM 14 [id number] ALT 21 IU/L 11/25/2012 CHEM 14 [id number] BUN 20 MG/DL 11/25/2012 CHEM 14 [id number] ALBUMIN 4.4 GM/DL 11/25/2012 CHEM 14 [id number] CHLORIDE 99 MMOL/L 11/25/2012 CHEM 14 [id number] BILI TOT 0.6 MG/DL 11/25/2012 CHEM 14 [id number] ALK PHOS 50 U/L 11/25/2012 CHEM 14 [id number] SODIUM 129 MMOL/L 11/25/2012 CHEM 14 [id number] CREATININE 1.20 MG/DL 11/25/2012 CHEM 14 [id number] CALCIUM 9.2 MG/DL 11/25/2012 CHEM 14 [id number] POTASSIUM 5.1 MMOL/L 11/25/2012 CHEM 14 [id number] PROT TOT 6.7 GM/DL 11/25/2012 CHEM 14 [id number] GLUCOSE 196 MG/DL 11/25/2012 CHEM 14 [id number] BICARB 25 MMOL/L 11/25/2012 CHEM 14 [id number] ANION GAP 5 MEQ/L 11/25/2012 CBC [id number] WBC 6.1 10e9/L 11/25/2012 CBC [id number] RBC 4.78 10e12/L 11/25/2012 CBC [id number] HGB 15.0 g/dL 11/25/2012 CBC [id number] HCT DET 43.4 % 11/25/2012 CBC [id number] MCV 90.8 fL 11/25/2012 CBC [id number] MCH 31.4 pg 11/25/2012 CBC [id number] MCHC 34.6 g/dL 11/25/2012 CBC [id number] PLT 174 10e9/L 11/25/2012 CBC [id number] MPV 9.5 fL 11/25/2012 CBC [id number] JAYESH % 54.6 % 11/25/2012 CBC [id number] LY % 32.9 % 11/25/2012 CBC [id number] MON % 9.6 % 11/25/2012 CBC [id number] EOS % 2.6 % 11/25/2012 CBC [id number] BASO % 0.3 % 11/25/2012 CBC [id number] RDW 12.9 % 11/25/2012 CBC [id number] ABS JAYESH 3.33 10e9/L 11/25/2012 CBC [id number] ABS LYMPH 2.01 10e9/L 11/25/2012 CBC [id number] ABS MONO 0.59 10e9/L 11/25/2012 CBC [id number] ABS EOS 0.16 10e9/L 11/25/2012 CBC [id number] ABS BASO 0.02 10e9/L 11/25/2012 CBC [id number] RDW-SD 42.3 fL 11/25/2012 LIPID GRP HDL TEST 39 MG/DL 11/25/2012 LIPID GRP TRIG 204 MG/DL 11/25/2012 LIPID GRP [id number] TEST LDL 100 MG/DL 11/25/2012 LIPID GRP CHOL 180 MG/DL 11/25/2012 LIPID GRP RCHOL/HDL 4.62 RATIO 11/25/2012 A1C HPLC [id number] A1C HPLC 88449-7 8.2 % 11/25/2012 GFR CALC [id number] GFR AA >60 ML/MIN 11/25/2012 GFR CALC [id number] GFR NON-AA 58.0L ML/MIN 11/25/2012 TSH [id number] TSH 0.636 uIU/ML 01/13/2012 A1C HPLC [id number] A1C HPLC 02186-6 7.9 % 01/13/2012 GFR CALC [id number] GFR AA >60 ML/MIN 01/13/2012 GFR CALC [id number] GFR NON-AA 59.0L ML/MIN 01/13/2012 CBC [id number] WBC 7.8 10e9/L 01/13/2012 CBC [id number] RBC 4.93 10e12/L 01/13/2012 CBC [id number] HGB 15.3 g/dL 01/13/2012 CBC [id number] HCT DET 43.6 % 01/13/2012 CBC [id number] MCV 88.4 fL 01/13/2012 CBC [id number] MCH 31.0 pg 01/13/2012 CBC [id number] MCHC 35.1 g/dL 01/13/2012 CBC [id number] PLT 173 10e9/L 01/13/2012 CBC [id number] MPV 9.1 fL 01/13/2012 CBC [id number] JAYESH % 57.6 % 01/13/2012 CBC [id number] LY % 31.5 % 01/13/2012 CBC [id number] MON % 8.8 % 01/13/2012 CBC [id number] EOS % 1.8 % 01/13/2012 CBC [id number] BASO % 0.3 % 01/13/2012 CBC [id number] RDW 12.9 % 01/13/2012 CBC [id number] ABS JAYESH 4.49 10e9/L 01/13/2012 CBC [id number] ABS LYMPH 2.46 10e9/L 01/13/2012 CBC [id number] ABS MONO 0.69 10e9/L 01/13/2012 CBC [id number] ABS EOS 0.14 10e9/L 01/13/2012 CBC [id number] ABS BASO 0.02 10e9/L 01/13/2012 CBC [id number] RDW-SD 41.2 fL 01/13/2012 CHEM 14 [id number] AST 21 U/L 01/13/2012 CHEM 14 [id number] ALT 23 IU/L 01/13/2012 CHEM 14 [id number] BUN 20 MG/DL 01/13/2012 CHEM 14 [id number] ALBUMIN 4.4 GM/DL 01/13/2012 CHEM 14 [id number] CHLORIDE 94 MMOL/L 01/13/2012 CHEM 14 [id number] BILI TOT 0.5 MG/DL 01/13/2012 CHEM 14 [id number] ALK PHOS 60 U/L 01/13/2012 CHEM 14 [id number] SODIUM 131 MMOL/L 01/13/2012 CHEM 14 [id number] CREATININE 1.20 MG/DL 01/13/2012 CHEM 14 [id number] CALCIUM 9.5 MG/DL 01/13/2012 CHEM 14 [id number] POTASSIUM 4.3 MMOL/L 01/13/2012 CHEM 14 [id number] PROT TOT 6.5 GM/DL 01/13/2012 CHEM 14 [id number] GLUCOSE 172 MG/DL 01/13/2012 CHEM 14 [id number] BICARB 26 MMOL/L 01/13/2012 CHEM 14 [id number] ANION GAP 11 MEQ/L 01/13/2012 Review of Systems System Result Effective Dates Constitutional No recent illness 2017 Constitutional No anorexia 05/13/2017 Constitutional No night sweats 2017 Constitutional No chills 05/13/2017 Constitutional No diaphoresis 05/13/2017 Constitutional fatigue 05/13/2017 Constitutional No fever 05/13/2017 Constitutional No insomnia 05/13/2017 Constitutional malaise 05/13/2017 Eyes No eye discharge 05/13/2017 Eyes No eye erythema 05/13/2017 Ears/Nose/Throat/Neck No dizziness 2017 Cardiovascular No chest pain/pressure Cardiovascular No dyspnea 05/13/2017 Cardiovascular edema 05/13/2017 Respiratory No cough 05/13/2017 Gastrointestinal No vomiting 05/13/2017 Genitourinary/Nephrology No dysuria 05/13 Musculoskeletal stiffness 05/13/2017 Dermatologic No rash 05/13/2017 Neurologic No alteration of consciousness 05/13/2017 Neurologic memory loss 05/13/2017 Psychiatric No anxiety 05/13/2017 Constitutional No recent illness 2017 Constitutional No fever 04/28/2017 Eyes No eye erythema 04/28/2017 Ears/Nose/Throat/Neck No nasal discharge 04/28/2017 Cardiovascular No chest pain/pressure 01/2018 Respiratory No cough 04/28/2017 Gastrointestinal No abdominal pain 2017 Dermatologic rash 04/28/2017 Neurologic No alteration of consciousness 04/28/2017 Neurologic No mental status change 2017 Constitutional No recent illness 2016 Constitutional No chills 04/15/2017 Constitutional No diaphoresis 04/15/2017 Constitutional fatigue 04/15/2017 Constitutional No fever 04/15/2017 Eyes No eye discharge 04/15/2017 Eyes No eye erythema 04/15/2017 Cardiovascular No chest pain/pressure Respiratory No cough 04/15/2017 Musculoskeletal stiffness 04/15/2017 Dermatologic No rash 04/15/2017 Neurologic No alteration of consciousness 04/15/2017 Neurologic memory loss 04/15/2017 Ears/Nose/Throat/Neck No nasal discharge 04/15/2017 Respiratory No chest congestion 2016 Cardiovascular hypertension 04/15/2017 Gastrointestinal No abdominal pain 2016 Gastrointestinal No diarrhea 04/15/2017 Gastrointestinal No constipation 2016 Constitutional No recent illness 2016 Constitutional No anorexia 02/04/2017 Constitutional No night sweats 2016 Constitutional No chills 02/04/2017 Constitutional No diaphoresis 02/04/2017 Constitutional No fatigue 02/04/2017 Constitutional No fever 02/04/2017 Constitutional No insomnia 02/04/2017 Constitutional No malaise 02/04/2017 Constitutional No weight loss 02/04/2017 Constitutional No weight gain 02/04/2017 Eyes No eye discharge 02/04/2017 Eyes No eye erythema 02/04/2017 Ears/Nose/Throat/Neck No dizziness 2016 Cardiovascular No chest pain/pressure Cardiovascular No dyspnea 02/04/2017 Cardiovascular edema 02/04/2017 Respiratory No cough 02/04/2017 Gastrointestinal No vomiting 02/04/2017 Genitourinary/Nephrology No dysuria 02/04 Musculoskeletal stiffness 02/04/2017 Dermatologic No rash 02/04/2017 Neurologic No alteration of consciousness 02/04/2017 Neurologic memory loss 02/04/2017 Psychiatric No anxiety 02/04/2017 Constitutional No recent illness 2016 Constitutional No chills 10/12/2016 Constitutional No diaphoresis 10/12/2016 Constitutional No fever 10/12/2016 Eyes No eye discharge 10/12/2016 Eyes No eye erythema 10/12/2016 Ears/Nose/Throat/Neck No nasal discharge 10/12/2016 Cardiovascular No chest pain/pressure Cardiovascular No dyspnea 10/12/2016 Respiratory No cough 10/12/2016 Musculoskeletal No joint complaint 2016 Dermatologic No rash 10/12/2016 Neurologic No alteration of consciousness 10/12/2016 Ears/Nose/Throat/Neck No nasal allergies 10/12/2016 Respiratory No dyspnea 10/12/2016 Neurologic No mental status change 2016 Gastrointestinal gas and bloating 2016 Constitutional No recent illness 2016 Constitutional No anorexia 10/08/2016 Constitutional No night sweats 2016 Constitutional No chills 10/08/2016 Constitutional No diaphoresis 10/08/2016 Constitutional No fatigue 10/08/2016 Constitutional No fever 10/08/2016 Constitutional No insomnia 10/08/2016 Constitutional No malaise 10/08/2016 Constitutional No weight loss 10/08/2016 Constitutional No weight gain 10/08/2016 Eyes No eye discharge 10/08/2016 Eyes No eye erythema 10/08/2016 Ears/Nose/Throat/Neck No nasal discharge 10/08/2016 Ears/Nose/Throat/Neck No otalgia 2016 Ears/Nose/Throat/Neck No sinus congestion 10/08/2016 Ears/Nose/Throat/Neck No sore throat Cardiovascular No chest pain/pressure Cardiovascular No dyspnea 10/08/2016 Cardiovascular edema 10/08/2016 Respiratory No cough 10/08/2016 Respiratory No productive sputum 2016 Respiratory No chest congestion 2016 Genitourinary/Nephrology No dysuria 10/08 Musculoskeletal No joint complaint 2016 Dermatologic No rash 10/08/2016 Dermatologic No sores 10/08/2016 Neurologic No alteration of consciousness 10/08/2016 Psychiatric No anxiety 10/08/2016 Constitutional No recent illness 2016 Constitutional No anorexia 09/10/2016 Constitutional No night sweats 2016 Constitutional No chills 09/10/2016 Constitutional No diaphoresis 09/10/2016 Constitutional fatigue 09/10/2016 Constitutional No fever 09/10/2016 Constitutional No insomnia 09/10/2016 Constitutional No malaise 09/10/2016 Constitutional No weight loss 09/10/2016 Constitutional No weight gain 09/10/2016 Eyes No eye discharge 09/10/2016 Eyes No eye erythema 09/10/2016 Ears/Nose/Throat/Neck No dizziness 2016 Cardiovascular No chest pain/pressure Cardiovascular No dyspnea 09/10/2016 Cardiovascular edema 09/10/2016 Respiratory cough 09/10/2016 Gastrointestinal No vomiting 09/10/2016 Genitourinary/Nephrology No dysuria 09/10 Genitourinary/Nephrology urinary retention/hesitancy 09/10/2016 Musculoskeletal stiffness 09/10/2016 Musculoskeletal back pain 09/10/2016 Dermatologic No rash 09/10/2016 Neurologic No alteration of consciousness 09/10/2016 Neurologic memory loss 09/10/2016 Psychiatric No anxiety 09/10/2016 Ears/Nose/Throat/Neck nasal allergies Ears/Nose/Throat/Neck nasal discharge Constitutional recent illness 08/24/2016 Constitutional anorexia 08/24/2016 Constitutional night sweats 08/24/2016 Constitutional chills 08/24/2016 Constitutional diaphoresis 08/24/2016 Constitutional fatigue 08/24/2016 Constitutional fever 08/24/2016 Constitutional No insomnia 08/24/2016 Constitutional No malaise 08/24/2016 Constitutional weight loss 08/24/2016 Constitutional No weight gain 08/24/2016 Eyes No eye erythema 08/24/2016 Eyes No eye discharge 08/24/2016 Ears/Nose/Throat/Neck No dizziness 2016 Ears/Nose/Throat/Neck nasal allergies 11/2016 Ears/Nose/Throat/Neck nasal discharge 11/2016 Ears/Nose/Throat/Neck sinus congestion Ears/Nose/Throat/Neck sore throat 2016 Cardiovascular No chest pain/pressure 11/2016 Cardiovascular dyspnea 08/24/2016 Cardiovascular edema 08/24/2016 Respiratory productive sputum 08/24/2016 Respiratory cough 08/24/2016 Gastrointestinal No abdominal pain 2016 Gastrointestinal constipation 08/24/2016 Gastrointestinal No diarrhea 08/24/2016 Genitourinary/Nephrology No dysuria 08/24 Musculoskeletal joint complaint 2016 Dermatologic No rash 08/24/2016 Neurologic memory loss 08/24/2016 Psychiatric depression 08/24/2016 Constitutional recent illness 08/06/2016 Constitutional No anorexia 08/06/2016 Constitutional night sweats 08/06/2016 Constitutional chills 08/06/2016 Constitutional No diaphoresis 08/06/2016 Constitutional fatigue 08/06/2016 Constitutional No fever 08/06/2016 Constitutional No insomnia 08/06/2016 Constitutional malaise 08/06/2016 Constitutional No weight loss 08/06/2016 Constitutional No weight gain 08/06/2016 Constitutional No obesity 08/06/2016 Eyes No eye pain 08/06/2016 Eyes No vision change 08/06/2016 Ears/Nose/Throat/Neck dizziness 2016 Ears/Nose/Throat/Neck No headache 2016 Cardiovascular chest pain/pressure 2016 Cardiovascular dyspnea 08/06/2016 Cardiovascular edema 08/06/2016 Cardiovascular No orthopnea 08/06/2016 Cardiovascular No syncope 08/06/2016 Respiratory chest tightness 08/06/2016 Respiratory chest congestion 08/06/2016 Respiratory cough 08/06/2016 Respiratory productive sputum 08/06/2016 Gastrointestinal abdominal pain 2016 Gastrointestinal constipation 08/06/2016 Gastrointestinal No diarrhea 08/06/2016 Genitourinary/Nephrology No anuria/oliguria 08/06/2016 Genitourinary/Nephrology No dysuria 08/06 Musculoskeletal stiffness 08/06/2016 Musculoskeletal swelling 08/06/2016 Musculoskeletal arthralgia(s) 08/06/2016 Dermatologic No rash 08/06/2016 Dermatologic No sores 08/06/2016 Psychiatric No anxiety 08/06/2016 Psychiatric No depression 08/06/2016 Neurologic No alteration of consciousness 08/06/2016 Neurologic No gait abnormality 2016 Neurologic No mental status change 2016 Endocrine No polydipsia 08/06/2016 Endocrine No polyuria 08/06/2016 Endocrine No sweating 08/06/2016 Hematologic/Lymphatic No abnormal ecchymoses 08/06/2016 Hematologic/Lymphatic No abnormal bleeding and bruising 08/06/2016 Allergy/Immunology No anaphylactoid reaction 08/06/2016 Allergy/Immunology No angioedema 2016 Constitutional recent illness 07/30/2016 Constitutional No anorexia 07/30/2016 Constitutional night sweats 07/30/2016 Constitutional chills 07/30/2016 Constitutional diaphoresis 07/30/2016 Constitutional fatigue 07/30/2016 Constitutional No fever 07/30/2016 Constitutional No insomnia 07/30/2016 Constitutional No malaise 07/30/2016 Constitutional No weight gain 07/30/2016 Constitutional No weight loss 07/30/2016 Eyes No eye erythema 07/30/2016 Eyes No eye discharge 07/30/2016 Ears/Nose/Throat/Neck No headache 2016 Ears/Nose/Throat/Neck nasal allergies Ears/Nose/Throat/Neck No sinus congestion 07/30/2016 Cardiovascular claudication 07/30/2016 Cardiovascular No chest pain/pressure Cardiovascular No dyspnea 07/30/2016 Cardiovascular No edema 07/30/2016 Respiratory productive sputum 07/30/2016 Respiratory cough 07/30/2016 Gastrointestinal No abdominal pain 2016 Gastrointestinal No constipation 2016 Gastrointestinal No diarrhea 07/30/2016 Genitourinary/Nephrology No breast complaint 07/30/2016 Genitourinary/Nephrology No dysuria 07/30 Musculoskeletal No joint complaint 2016 Dermatologic No rash 07/30/2016 Neurologic No alteration of consciousness 07/30/2016 Constitutional No recent illness 2016 Constitutional No anorexia 06/22/2016 Constitutional No night sweats 2016 Constitutional No chills 06/22/2016 Constitutional No diaphoresis 06/22/2016 Constitutional No fatigue 06/22/2016 Constitutional No fever 06/22/2016 Constitutional No insomnia 06/22/2016 Constitutional No malaise 06/22/2016 Constitutional weight loss 06/22/2016 Constitutional No weight gain 06/22/2016 Constitutional No obesity 06/22/2016 Eyes No blindness 06/22/2016 Eyes No eye pain 06/22/2016 Eyes No vision change 06/22/2016 Ears/Nose/Throat/Neck No facial pain 09/2016 Ears/Nose/Throat/Neck No dizziness 2016 Ears/Nose/Throat/Neck No headache 2016 Cardiovascular No chest pain/pressure 09/2016 Cardiovascular fatigue 06/22/2016 Cardiovascular No edema 06/22/2016 Cardiovascular No palpitations 2016 Respiratory No chest congestion 2016 Respiratory No chest tightness 2016 Gastrointestinal No anorexia 06/22/2016 Gastrointestinal No constipation 2016 Gastrointestinal No diarrhea 06/22/2016 Gastrointestinal No abdominal pain 2016 Gastrointestinal No nausea 06/22/2016 Gastrointestinal No vomiting 06/22/2016 Genitourinary/Nephrology No anuria/oliguria 06/22/2016 Genitourinary/Nephrology No dysuria 06/22 Genitourinary/Nephrology urinary retention/hesitancy 06/22/2016 Musculoskeletal No stiffness 06/22/2016 Musculoskeletal No swelling 06/22/2016 Musculoskeletal No arthralgia(s) 2016 Neurologic No alteration of consciousness 06/22/2016 Dermatologic No rash 06/22/2016 Dermatologic No sores 06/22/2016 Psychiatric anxiety 06/22/2016 Psychiatric depression 06/22/2016 Endocrine No polyuria 06/22/2016 Endocrine No polydipsia 06/22/2016 Endocrine No sweating 06/22/2016 Hematologic/Lymphatic No abnormal ecchymoses 06/22/2016 Hematologic/Lymphatic No abnormal bleeding and bruising 06/22/2016 Constitutional No recent illness 2016 Constitutional No anorexia 04/27/2016 Constitutional No night sweats 2016 Constitutional No chills 04/27/2016 Constitutional No diaphoresis 04/27/2016 Constitutional No fatigue 04/27/2016 Constitutional No fever 04/27/2016 Constitutional No insomnia 04/27/2016 Constitutional No malaise 04/27/2016 Constitutional No weight loss 04/27/2016 Constitutional No weight gain 04/27/2016 Eyes No eye discharge 04/27/2016 Eyes No eye erythema 04/27/2016 Ears/Nose/Throat/Neck No dizziness 2016 Cardiovascular No chest pain/pressure 12/2016 Cardiovascular No dyspnea 04/27/2016 Cardiovascular edema 04/27/2016 Respiratory No cough 04/27/2016 Gastrointestinal No vomiting 04/27/2016 Genitourinary/Nephrology No dysuria 04/27 Musculoskeletal stiffness 04/27/2016 Musculoskeletal back pain 04/27/2016 Dermatologic No rash 04/27/2016 Neurologic No alteration of consciousness 04/27/2016 Neurologic memory loss 04/27/2016 Psychiatric No anxiety 04/27/2016 Genitourinary/Nephrology urinary retention/hesitancy 04/27/2016 Constitutional No recent illness 2015 Constitutional No anorexia 03/23/2016 Constitutional No night sweats 2015 Constitutional No chills 03/23/2016 Constitutional No diaphoresis 03/23/2016 Constitutional No fatigue 03/23/2016 Constitutional No fever 03/23/2016 Constitutional No insomnia 03/23/2016 Constitutional No malaise 03/23/2016 Constitutional No weight loss 03/23/2016 Constitutional No weight gain 03/23/2016 Eyes No eye discharge 03/23/2016 Eyes No eye erythema 03/23/2016 Ears/Nose/Throat/Neck No dizziness 2015 Cardiovascular No chest pain/pressure 08/2015 Cardiovascular No dyspnea 03/23/2016 Cardiovascular edema 03/23/2016 Respiratory No cough 03/23/2016 Gastrointestinal No vomiting 03/23/2016 Genitourinary/Nephrology No dysuria 03/23 Musculoskeletal stiffness 03/23/2016 Musculoskeletal back pain 03/23/2016 Dermatologic No rash 03/23/2016 Neurologic No alteration of consciousness 03/23/2016 Neurologic memory loss 03/23/2016 Constitutional No recent illness 2015 Constitutional No anorexia 01/20/2016 Constitutional No night sweats 2015 Constitutional No chills 01/20/2016 Constitutional No diaphoresis 01/20/2016 Constitutional No fatigue 01/20/2016 Constitutional No fever 01/20/2016 Constitutional No insomnia 01/20/2016 Constitutional No malaise 01/20/2016 Constitutional No weight loss 01/20/2016 Constitutional No weight gain 01/20/2016 Eyes No eye discharge 01/20/2016 Eyes No eye erythema 01/20/2016 Ears/Nose/Throat/Neck No dizziness 2015 Cardiovascular No chest pain/pressure 06/2015 Cardiovascular No dyspnea 01/20/2016 Cardiovascular edema 01/20/2016 Respiratory No cough 01/20/2016 Gastrointestinal No vomiting 01/20/2016 Genitourinary/Nephrology No dysuria 01/19 Musculoskeletal stiffness 01/20/2016 Dermatologic No rash 01/20/2016 Neurologic No alteration of consciousness 01/20/2016 Neurologic memory loss 01/20/2016 Musculoskeletal back pain 01/20/2016 Constitutional No recent illness 2015 Constitutional No anorexia 12/16/2015 Constitutional No night sweats 2015 Constitutional No chills 12/16/2015 Constitutional No diaphoresis 12/16/2015 Constitutional No fatigue 12/16/2015 Constitutional No fever 12/16/2015 Constitutional No insomnia 12/16/2015 Constitutional No malaise 12/16/2015 Constitutional No weight loss 12/16/2015 Constitutional No weight gain 12/16/2015 Eyes No eye discharge 12/16/2015 Eyes No eye erythema 12/16/2015 Ears/Nose/Throat/Neck No dizziness 2015 Cardiovascular No chest pain/pressure Cardiovascular No dyspnea 12/16/2015 Cardiovascular edema 12/16/2015 Respiratory No cough 12/16/2015 Gastrointestinal No vomiting 12/16/2015 Genitourinary/Nephrology No dysuria 12/15 Musculoskeletal stiffness 12/16/2015 Dermatologic No rash 12/16/2015 Neurologic No alteration of consciousness 12/16/2015 Neurologic memory loss 12/16/2015 Constitutional recent illness 12/09/2015 Constitutional No anorexia 12/09/2015 Constitutional No night sweats 2015 Constitutional chills 12/09/2015 Constitutional No diaphoresis 12/09/2015 Constitutional No fatigue 12/09/2015 Constitutional No fever 12/09/2015 Constitutional No insomnia 12/09/2015 Constitutional No malaise 12/09/2015 Constitutional No weight loss 12/09/2015 Constitutional No weight gain 12/09/2015 Eyes No eye discharge 12/09/2015 Eyes No eye erythema 12/09/2015 Ears/Nose/Throat/Neck No dizziness 2015 Cardiovascular No chest pain/pressure Cardiovascular edema 12/09/2015 Cardiovascular No dyspnea 12/09/2015 Respiratory No cough 12/09/2015 Musculoskeletal stiffness 12/09/2015 Genitourinary/Nephrology No dysuria 12/08 Gastrointestinal No vomiting 12/09/2015 Dermatologic No rash 12/09/2015 Neurologic No alteration of consciousness 12/09/2015 Neurologic memory loss 12/09/2015 Constitutional No recent illness 2015 Constitutional No anorexia 11/25/2015 Constitutional No night sweats 2015 Constitutional No chills 11/25/2015 Constitutional No diaphoresis 11/25/2015 Constitutional No fatigue 11/25/2015 Constitutional No fever 11/25/2015 Eyes No eye discharge 11/25/2015 Eyes No eye erythema 11/25/2015 Eyes No vision change 11/25/2015 Ears/Nose/Throat/Neck No dizziness 2015 Ears/Nose/Throat/Neck No headache 2015 Ears/Nose/Throat/Neck No nasal allergies 11/25/2015 Ears/Nose/Throat/Neck No nasal discharge 11/25/2015 Cardiovascular No chest pain/pressure 11/2015 Cardiovascular No dyspnea 11/25/2015 Cardiovascular edema 11/25/2015 Cardiovascular No exercise intolerance Respiratory No productive sputum 2015 Respiratory No chest congestion 2015 Respiratory No cough 11/25/2015 Gastrointestinal No constipation 2015 Gastrointestinal No diarrhea 11/25/2015 Musculoskeletal back pain 11/25/2015 Musculoskeletal No joint complaint 2015 Neurologic No alteration of consciousness 11/25/2015 Neurologic No ataxia 11/25/2015 Psychiatric No anxiety 11/25/2015 Psychiatric No depression 11/25/2015 Endocrine diabetes mellitus type 2 2015 Constitutional No recent illness 2015 Constitutional No chills 09/02/2015 Constitutional No diaphoresis 09/02/2015 Constitutional No fatigue 09/02/2015 Constitutional No fever 09/02/2015 Eyes No eye discharge 09/02/2015 Eyes No eye erythema 09/02/2015 Eyes No vision change 09/02/2015 Ears/Nose/Throat/Neck No nasal allergies 09/02/2015 Ears/Nose/Throat/Neck No nasal discharge 09/02/2015 Cardiovascular No chest pain/pressure Cardiovascular No dyspnea 09/02/2015 Cardiovascular edema 09/02/2015 Respiratory No productive sputum 2015 Respiratory No chest congestion 2015 Respiratory No cough 09/02/2015 Gastrointestinal No constipation 2015 Gastrointestinal No diarrhea 09/02/2015 Neurologic No alteration of consciousness 09/02/2015 Psychiatric No anxiety 09/02/2015 Psychiatric No depression 09/02/2015 Dermatologic No rash 09/02/2015 Neurologic No mental status change 2015 Constitutional No recent illness 2015 Constitutional No anorexia 08/05/2015 Constitutional No night sweats 2015 Constitutional No chills 08/05/2015 Constitutional No diaphoresis 08/05/2015 Constitutional No fatigue 08/05/2015 Constitutional No fever 08/05/2015 Eyes No eye discharge 08/05/2015 Eyes No eye erythema 08/05/2015 Eyes No vision change 08/05/2015 Ears/Nose/Throat/Neck No dizziness 2015 Ears/Nose/Throat/Neck No headache 2015 Ears/Nose/Throat/Neck No nasal allergies 08/05/2015 Ears/Nose/Throat/Neck No nasal discharge 08/05/2015 Cardiovascular No chest pain/pressure Cardiovascular No dyspnea 08/05/2015 Cardiovascular edema 08/05/2015 Cardiovascular No exercise intolerance Respiratory No productive sputum 2015 Respiratory No chest congestion 2015 Respiratory No cough 08/05/2015 Gastrointestinal No constipation 2015 Gastrointestinal No diarrhea 08/05/2015 Musculoskeletal back pain 08/05/2015 Musculoskeletal No joint complaint 2015 Musculoskeletal muscle weakness 2015 Dermatologic sores 08/05/2015 Neurologic No alteration of consciousness 08/05/2015 Neurologic No ataxia 08/05/2015 Psychiatric No anxiety 08/05/2015 Psychiatric No depression 08/05/2015 Endocrine diabetes mellitus type 2 2015 Constitutional No recent illness 2015 Constitutional No anorexia 07/25/2015 Constitutional No night sweats 2015 Constitutional No chills 07/25/2015 Constitutional No diaphoresis 07/25/2015 Constitutional No fatigue 07/25/2015 Constitutional No fever 07/25/2015 Eyes No eye discharge 07/25/2015 Eyes No eye erythema 07/25/2015 Eyes No vision change 07/25/2015 Ears/Nose/Throat/Neck No dizziness 2015 Ears/Nose/Throat/Neck No headache 2015 Ears/Nose/Throat/Neck No nasal allergies 07/25/2015 Ears/Nose/Throat/Neck No nasal discharge 07/25/2015 Cardiovascular No chest pain/pressure 10/2015 Cardiovascular No dyspnea 07/25/2015 Cardiovascular edema 07/25/2015 Cardiovascular No exercise intolerance Respiratory No productive sputum 2015 Respiratory No chest congestion 2015 Respiratory No cough 07/25/2015 Gastrointestinal No constipation 2015 Gastrointestinal No diarrhea 07/25/2015 Musculoskeletal back pain 07/25/2015 Musculoskeletal No joint complaint 2015 Musculoskeletal muscle weakness 2015 Dermatologic sores 07/25/2015 Neurologic No alteration of consciousness 07/25/2015 Neurologic No ataxia 07/25/2015 Psychiatric No anxiety 07/25/2015 Psychiatric No depression 07/25/2015 Endocrine diabetes mellitus type 2 2015 Musculoskeletal back pain 06/03/2015 Constitutional chills 06/03/2015 Constitutional No recent illness 2015 Constitutional No anorexia 06/03/2015 Constitutional No night sweats 2015 Constitutional No diaphoresis 06/03/2015 Constitutional No fatigue 06/03/2015 Constitutional No fever 06/03/2015 Constitutional No insomnia 06/03/2015 Constitutional No malaise 06/03/2015 Constitutional No weight loss 06/03/2015 Constitutional No weight gain 06/03/2015 Eyes No eye discharge 06/03/2015 Eyes No eye erythema 06/03/2015 Ears/Nose/Throat/Neck No dizziness 2015 Ears/Nose/Throat/Neck No headache 2015 Cardiovascular No chest pain/pressure Cardiovascular No dyspnea 06/03/2015 Cardiovascular edema 06/03/2015 Respiratory No productive sputum 2015 Respiratory No cough 06/03/2015 Gastrointestinal No abdominal pain 2015 Gastrointestinal No diarrhea 06/03/2015 Gastrointestinal No constipation 2015 Genitourinary/Nephrology No dysuria 06/03 Dermatologic No rash 06/03/2015 Dermatologic No sores 06/03/2015 Neurologic No alteration of consciousness 06/03/2015 Constitutional No night sweats 2014 Constitutional No chills 03/19/2015 Constitutional No diaphoresis 03/19/2015 Constitutional No fatigue 03/19/2015 Constitutional No fever 03/19/2015 Constitutional No insomnia 03/19/2015 Constitutional No malaise 03/19/2015 Eyes No eye discharge 03/19/2015 Eyes No eye erythema 03/19/2015 Ears/Nose/Throat/Neck No dizziness 2014 Ears/Nose/Throat/Neck No headache 2014 Cardiovascular No chest pain/pressure 04/2014 Cardiovascular No dyspnea 03/19/2015 Respiratory No productive sputum 2014 Respiratory No cough 03/19/2015 Gastrointestinal No abdominal pain 2014 Gastrointestinal No constipation 2014 Gastrointestinal No diarrhea 03/19/2015 Gastrointestinal No vomiting 03/19/2015 Musculoskeletal No joint complaint 2014 Neurologic No alteration of consciousness 03/19/2015 Constitutional No recent illness 2014 Dermatologic sores 03/19/2015 Constitutional No anorexia 03/04/2015 Constitutional No recent illness 2014 Constitutional No night sweats 2014 Constitutional No chills 03/04/2015 Constitutional No diaphoresis 03/04/2015 Constitutional No fatigue 03/04/2015 Constitutional No fever 03/04/2015 Constitutional No insomnia 03/04/2015 Constitutional No malaise 03/04/2015 Constitutional No weight loss 03/04/2015 Constitutional No weight gain 03/04/2015 Eyes No eye discharge 03/04/2015 Eyes No eye erythema 03/04/2015 Ears/Nose/Throat/Neck No dizziness 2014 Ears/Nose/Throat/Neck No headache 2014 Cardiovascular No chest pain/pressure Cardiovascular No dyspnea 03/04/2015 Cardiovascular edema 03/04/2015 Respiratory No productive sputum 2014 Respiratory No cough 03/04/2015 Gastrointestinal No abdominal pain 2014 Gastrointestinal No constipation 2014 Gastrointestinal No diarrhea 03/04/2015 Gastrointestinal No vomiting 03/04/2015 Genitourinary/Nephrology No dysuria 03/04 Musculoskeletal No joint complaint 2014 Dermatologic No rash 03/04/2015 Neurologic No alteration of consciousness 03/04/2015 Constitutional No recent illness 2014 Constitutional No anorexia 02/20/2015 Constitutional No night sweats 2014 Constitutional No chills 02/20/2015 Constitutional No diaphoresis 02/20/2015 Constitutional No fatigue 02/20/2015 Constitutional No fever 02/20/2015 Eyes No eye discharge 02/20/2015 Eyes No eye erythema 02/20/2015 Eyes No vision change 02/20/2015 Ears/Nose/Throat/Neck No dizziness 2014 Ears/Nose/Throat/Neck No headache 2014 Ears/Nose/Throat/Neck No nasal allergies 02/20/2015 Ears/Nose/Throat/Neck No nasal discharge 02/20/2015 Cardiovascular No chest pain/pressure 07/2014 Cardiovascular No dyspnea 02/20/2015 Cardiovascular edema 02/20/2015 Cardiovascular No exercise intolerance Respiratory No productive sputum 2014 Respiratory No chest congestion 2014 Respiratory No cough 02/20/2015 Gastrointestinal No constipation 2014 Gastrointestinal No diarrhea 02/20/2015 Musculoskeletal back pain 02/20/2015 Musculoskeletal No joint complaint 2014 Musculoskeletal muscle weakness 2014 Neurologic No alteration of consciousness 02/20/2015 Neurologic No ataxia 02/20/2015 Psychiatric No anxiety 02/20/2015 Psychiatric No depression 02/20/2015 Endocrine diabetes mellitus type 2 2014 Dermatologic sores 02/20/2015 Constitutional No recent illness 2014 Constitutional No anorexia 02/11/2015 Constitutional No night sweats 2014 Constitutional No chills 02/11/2015 Constitutional No diaphoresis 02/11/2015 Constitutional No fatigue 02/11/2015 Constitutional No fever 02/11/2015 Eyes No eye discharge 02/11/2015 Eyes No eye erythema 02/11/2015 Eyes No vision change 02/11/2015 Ears/Nose/Throat/Neck No dizziness 2014 Ears/Nose/Throat/Neck No headache 2014 Ears/Nose/Throat/Neck No nasal allergies 02/11/2015 Ears/Nose/Throat/Neck No nasal discharge 02/11/2015 Cardiovascular No chest pain/pressure Cardiovascular No dyspnea 02/11/2015 Cardiovascular edema 02/11/2015 Cardiovascular No exercise intolerance Respiratory No productive sputum 2014 Respiratory No chest congestion 2014 Respiratory No cough 02/11/2015 Gastrointestinal abdominal pain 2014 Gastrointestinal No constipation 2014 Gastrointestinal No diarrhea 02/11/2015 Gastrointestinal gas and bloating 2014 Gastrointestinal gastroesophageal reflux 02/11/2015 Gastrointestinal No nausea 02/11/2015 Gastrointestinal No vomiting 02/11/2015 Musculoskeletal back pain 02/11/2015 Musculoskeletal No joint complaint 2014 Musculoskeletal muscle weakness 2014 Dermatologic No rash 02/11/2015 Dermatologic No sores 02/11/2015 Neurologic No alteration of consciousness 02/11/2015 Neurologic No ataxia 02/11/2015 Psychiatric No anxiety 02/11/2015 Psychiatric No depression 02/11/2015 Endocrine diabetes mellitus type 2 2014 Constitutional No recent illness 2014 Constitutional No anorexia 01/28/2015 Constitutional No night sweats 2014 Constitutional No chills 01/28/2015 Constitutional No diaphoresis 01/28/2015 Constitutional No fatigue 01/28/2015 Constitutional No fever 01/28/2015 Eyes No eye discharge 01/28/2015 Eyes No eye erythema 01/28/2015 Eyes No vision change 01/28/2015 Ears/Nose/Throat/Neck No dizziness 2014 Ears/Nose/Throat/Neck No headache 2014 Ears/Nose/Throat/Neck No nasal allergies 01/28/2015 Ears/Nose/Throat/Neck No nasal discharge 01/28/2015 Cardiovascular No chest pain/pressure 03/2015 Cardiovascular No dyspnea 01/28/2015 Cardiovascular edema 01/28/2015 Cardiovascular No exercise intolerance Respiratory No productive sputum 2014 Respiratory No chest congestion 2014 Respiratory No cough 01/28/2015 Gastrointestinal abdominal pain 2014 Gastrointestinal No constipation 2014 Gastrointestinal No diarrhea 01/28/2015 Gastrointestinal gas and bloating 2014 Gastrointestinal gastroesophageal reflux 01/28/2015 Gastrointestinal No nausea 01/28/2015 Gastrointestinal No vomiting 01/28/2015 Musculoskeletal back pain 01/28/2015 Musculoskeletal No joint complaint 2014 Musculoskeletal muscle weakness 2014 Dermatologic No rash 01/28/2015 Dermatologic No sores 01/28/2015 Neurologic No alteration of consciousness 01/28/2015 Neurologic No ataxia 01/28/2015 Psychiatric No anxiety 01/28/2015 Psychiatric No depression 01/28/2015 Endocrine diabetes mellitus type 2 2014 Constitutional No recent illness 2014 Constitutional No anorexia 10/01/2014 Constitutional No night sweats 2014 Constitutional No chills 10/01/2014 Constitutional No diaphoresis 10/01/2014 Constitutional No fatigue 10/01/2014 Constitutional No fever 10/01/2014 Eyes No eye discharge 10/01/2014 Eyes No eye erythema 10/01/2014 Eyes No vision change 10/01/2014 Ears/Nose/Throat/Neck No dizziness 2014 Ears/Nose/Throat/Neck No headache 2014 Ears/Nose/Throat/Neck No nasal allergies 10/01/2014 Ears/Nose/Throat/Neck No nasal discharge 10/01/2014 Cardiovascular No chest pain/pressure Cardiovascular No dyspnea 10/01/2014 Cardiovascular No edema 10/01/2014 Cardiovascular No exercise intolerance Respiratory No productive sputum 2014 Respiratory No chest congestion 2014 Respiratory No cough 10/01/2014 Gastrointestinal abdominal pain 2014 Gastrointestinal No constipation 2014 Gastrointestinal No diarrhea 10/01/2014 Gastrointestinal gas and bloating 2014 Gastrointestinal gastroesophageal reflux 10/01/2014 Gastrointestinal No nausea 10/01/2014 Gastrointestinal No vomiting 10/01/2014 Musculoskeletal back pain 10/01/2014 Musculoskeletal No joint complaint 2014 Musculoskeletal muscle weakness 2014 Dermatologic No rash 10/01/2014 Dermatologic No sores 10/01/2014 Neurologic No alteration of consciousness 10/01/2014 Neurologic No ataxia 10/01/2014 Psychiatric No anxiety 10/01/2014 Psychiatric No depression 10/01/2014 Endocrine diabetes mellitus type 2 2014 Constitutional No recent illness 2014 Constitutional No anorexia 05/30/2014 Constitutional No night sweats 2014 Constitutional No chills 05/30/2014 Constitutional No diaphoresis 05/30/2014 Constitutional No fatigue 05/30/2014 Constitutional No fever 05/30/2014 Constitutional malaise 05/30/2014 Eyes No eye discharge 05/30/2014 Eyes No eye erythema 05/30/2014 Eyes No vision change 05/30/2014 Ears/Nose/Throat/Neck No dizziness 2014 Ears/Nose/Throat/Neck No headache 2014 Ears/Nose/Throat/Neck No nasal allergies 05/30/2014 Ears/Nose/Throat/Neck No nasal discharge 05/30/2014 Cardiovascular No chest pain/pressure 02/2015 Cardiovascular No dyspnea 05/30/2014 Cardiovascular No edema 05/30/2014 Cardiovascular No exercise intolerance Respiratory No productive sputum 2014 Respiratory No chest congestion 2014 Respiratory No cough 05/30/2014 Gastrointestinal abdominal pain 2014 Gastrointestinal No constipation 2014 Gastrointestinal No diarrhea 05/30/2014 Gastrointestinal gas and bloating 2014 Gastrointestinal gastroesophageal reflux 05/30/2014 Gastrointestinal No nausea 05/30/2014 Gastrointestinal No vomiting 05/30/2014 Musculoskeletal back pain 05/30/2014 Musculoskeletal No joint complaint 2014 Musculoskeletal muscle weakness 2014 Dermatologic No rash 05/30/2014 Dermatologic No sores 05/30/2014 Neurologic No alteration of consciousness 05/30/2014 Neurologic No ataxia 05/30/2014 Psychiatric No anxiety 05/30/2014 Psychiatric No depression 05/30/2014 Endocrine diabetes mellitus type 2 2014 Constitutional No recent illness 2013 Constitutional No anorexia 02/28/2014 Constitutional No night sweats 2013 Constitutional No chills 02/28/2014 Constitutional No diaphoresis 02/28/2014 Constitutional No fatigue 02/28/2014 Constitutional No fever 02/28/2014 Constitutional malaise 02/28/2014 Eyes No eye discharge 02/28/2014 Eyes No eye erythema 02/28/2014 Eyes No vision change 02/28/2014 Ears/Nose/Throat/Neck No dizziness 2013 Ears/Nose/Throat/Neck No headache 2013 Ears/Nose/Throat/Neck No nasal allergies 02/28/2014 Ears/Nose/Throat/Neck No nasal discharge 02/28/2014 Cardiovascular No chest pain/pressure 03/2014 Cardiovascular No dyspnea 02/28/2014 Cardiovascular No edema 02/28/2014 Cardiovascular No exercise intolerance Respiratory No productive sputum 2013 Respiratory No chest congestion 2013 Respiratory No cough 02/28/2014 Gastrointestinal abdominal pain 2013 Gastrointestinal No constipation 2013 Gastrointestinal No diarrhea 02/28/2014 Gastrointestinal gas and bloating 2013 Gastrointestinal gastroesophageal reflux 02/28/2014 Gastrointestinal No nausea 02/28/2014 Gastrointestinal No vomiting 02/28/2014 Genitourinary/Nephrology No dysuria 02/28 Musculoskeletal back pain 02/28/2014 Musculoskeletal No joint complaint 2013 Musculoskeletal muscle weakness 2013 Dermatologic No rash 02/28/2014 Dermatologic No sores 02/28/2014 Neurologic No alteration of consciousness 02/28/2014 Neurologic No ataxia 02/28/2014 Psychiatric No anxiety 02/28/2014 Psychiatric No depression 02/28/2014 Endocrine diabetes mellitus type 2 2013 Constitutional No recent illness 2013 Constitutional No anorexia 01/23/2014 Constitutional No night sweats 2013 Constitutional No chills 01/23/2014 Constitutional No diaphoresis 01/23/2014 Constitutional No fatigue 01/23/2014 Constitutional No fever 01/23/2014 Constitutional malaise 01/23/2014 Eyes No eye discharge 01/23/2014 Eyes No eye erythema 01/23/2014 Eyes No vision change 01/23/2014 Ears/Nose/Throat/Neck No dizziness 2013 Ears/Nose/Throat/Neck No headache 2013 Ears/Nose/Throat/Neck No nasal allergies 01/23/2014 Ears/Nose/Throat/Neck No nasal discharge 01/23/2014 Cardiovascular No chest pain/pressure 10/2013 Cardiovascular No dyspnea 01/23/2014 Cardiovascular No edema 01/23/2014 Cardiovascular No exercise intolerance Respiratory No productive sputum 2013 Respiratory No chest congestion 2013 Respiratory No cough 01/23/2014 Gastrointestinal abdominal pain 2013 Gastrointestinal No constipation 2013 Gastrointestinal No diarrhea 01/23/2014 Gastrointestinal gas and bloating 2013 Gastrointestinal gastroesophageal reflux 01/23/2014 Gastrointestinal No nausea 01/23/2014 Gastrointestinal No vomiting 01/23/2014 Genitourinary/Nephrology No dysuria 01/23 Musculoskeletal back pain 01/23/2014 Musculoskeletal No joint complaint 2013 Musculoskeletal muscle weakness 2013 Dermatologic No rash 01/23/2014 Dermatologic No sores 01/23/2014 Neurologic No alteration of consciousness 01/23/2014 Neurologic No ataxia 01/23/2014 Psychiatric No anxiety 01/23/2014 Psychiatric No depression 01/23/2014 Constitutional No recent illness 2013 Constitutional No anorexia 12/26/2013 Constitutional No night sweats 2013 Constitutional No chills 12/26/2013 Constitutional No diaphoresis 12/26/2013 Constitutional No fatigue 12/26/2013 Constitutional No fever 12/26/2013 Constitutional malaise 12/26/2013 Eyes No eye discharge 12/26/2013 Eyes No eye erythema 12/26/2013 Eyes No vision change 12/26/2013 Ears/Nose/Throat/Neck No dizziness 2013 Ears/Nose/Throat/Neck No headache 2013 Ears/Nose/Throat/Neck No nasal allergies 12/26/2013 Ears/Nose/Throat/Neck No nasal discharge 12/26/2013 Cardiovascular No chest pain/pressure 12/2013 Cardiovascular No dyspnea 12/26/2013 Cardiovascular No edema 12/26/2013 Cardiovascular No exercise intolerance Respiratory No productive sputum 2013 Respiratory No chest congestion 2013 Respiratory No cough 12/26/2013 Gastrointestinal abdominal pain 2013 Gastrointestinal No constipation 2013 Gastrointestinal No diarrhea 12/26/2013 Gastrointestinal No nausea 12/26/2013 Gastrointestinal No vomiting 12/26/2013 Genitourinary/Nephrology No dysuria 12/26 Musculoskeletal back pain 12/26/2013 Musculoskeletal No joint complaint 2013 Musculoskeletal muscle weakness 2013 Dermatologic No rash 12/26/2013 Dermatologic No sores 12/26/2013 Neurologic No alteration of consciousness 12/26/2013 Neurologic No ataxia 12/26/2013 Psychiatric No anxiety 12/26/2013 Psychiatric No depression 12/26/2013 Gastrointestinal gastroesophageal reflux 12/26/2013 Gastrointestinal gas and bloating 2013 Constitutional No recent illness 2013 Constitutional No fever 10/24/2013 Constitutional No recent illness 2013 Constitutional No anorexia 10/17/2013 Constitutional No night sweats 2013 Constitutional No chills 10/17/2013 Constitutional No diaphoresis 10/17/2013 Constitutional No fatigue 10/17/2013 Constitutional No fever 10/17/2013 Constitutional malaise 10/17/2013 Eyes No eye discharge 10/17/2013 Eyes No eye erythema 10/17/2013 Eyes No vision change 10/17/2013 Ears/Nose/Throat/Neck No dizziness 2013 Ears/Nose/Throat/Neck No headache 2013 Ears/Nose/Throat/Neck No nasal allergies 10/17/2013 Ears/Nose/Throat/Neck No nasal discharge 10/17/2013 Cardiovascular No chest pain/pressure 04/2013 Cardiovascular No dyspnea 10/17/2013 Cardiovascular No edema 10/17/2013 Cardiovascular No exercise intolerance Respiratory No productive sputum 2013 Respiratory No chest congestion 2013 Respiratory No cough 10/17/2013 Gastrointestinal No abdominal pain 2013 Gastrointestinal No constipation 2013 Gastrointestinal No diarrhea 10/17/2013 Gastrointestinal No nausea 10/17/2013 Gastrointestinal No vomiting 10/17/2013 Genitourinary/Nephrology No dysuria 10/17 Musculoskeletal No joint complaint 2013 Musculoskeletal muscle weakness 2013 Dermatologic No rash 10/17/2013 Dermatologic No sores 10/17/2013 Neurologic No alteration of consciousness 10/17/2013 Neurologic No ataxia 10/17/2013 Psychiatric No anxiety 10/17/2013 Psychiatric No depression 10/17/2013 Musculoskeletal back pain 10/17/2013 Constitutional No recent illness 2013 Constitutional No anorexia 07/24/2013 Constitutional No night sweats 2013 Constitutional No chills 07/24/2013 Constitutional No diaphoresis 07/24/2013 Constitutional No fatigue 07/24/2013 Constitutional No fever 07/24/2013 Constitutional No insomnia 07/24/2013 Constitutional No malaise 07/24/2013 Constitutional No weight loss 07/24/2013 Constitutional No weight gain 07/24/2013 Eyes No eye discharge 07/24/2013 Eyes No eye erythema 07/24/2013 Eyes No vision change 07/24/2013 Ears/Nose/Throat/Neck No dizziness 2013 Ears/Nose/Throat/Neck No headache 2013 Ears/Nose/Throat/Neck No nasal allergies 07/24/2013 Ears/Nose/Throat/Neck No nasal discharge 07/24/2013 Cardiovascular No chest pain/pressure 10/2013 Cardiovascular No dyspnea 07/24/2013 Cardiovascular No edema 07/24/2013 Cardiovascular No exercise intolerance Respiratory No productive sputum 2013 Respiratory No chest congestion 2013 Respiratory No cough 07/24/2013 Gastrointestinal No abdominal pain 2013 Gastrointestinal No constipation 2013 Gastrointestinal No diarrhea 07/24/2013 Gastrointestinal No nausea 07/24/2013 Gastrointestinal No vomiting 07/24/2013 Genitourinary/Nephrology No dysuria 07/24 Musculoskeletal No joint complaint 2013 Musculoskeletal muscle weakness 2013 Dermatologic No rash 07/24/2013 Dermatologic No sores 07/24/2013 Neurologic No alteration of consciousness 07/24/2013 Neurologic No ataxia 07/24/2013 Psychiatric No anxiety 07/24/2013 Psychiatric No depression 07/24/2013 Constitutional No recent illness 2013 Constitutional No anorexia 04/24/2013 Constitutional No night sweats 2013 Constitutional No chills 04/24/2013 Neurologic No alteration of consciousness 04/24/2013 Eyes No vision change 04/24/2013 Cardiovascular No dyspnea 04/24/2013 Cardiovascular No exercise intolerance Musculoskeletal muscle weakness 2013 Neurologic No ataxia 04/24/2013 Psychiatric No anxiety 04/24/2013 Psychiatric No depression 04/24/2013 Constitutional No diaphoresis 04/24/2013 Constitutional No fatigue 04/24/2013 Constitutional No fever 04/24/2013 Constitutional No insomnia 04/24/2013 Constitutional No malaise 04/24/2013 Constitutional No weight loss 04/24/2013 Constitutional No weight gain 04/24/2013 Eyes No eye discharge 04/24/2013 Eyes No eye erythema 04/24/2013 Respiratory No productive sputum 2013 Respiratory No chest congestion 2013 Respiratory No cough 04/24/2013 Gastrointestinal No abdominal pain 2013 Gastrointestinal No constipation 2013 Gastrointestinal No diarrhea 04/24/2013 Gastrointestinal No vomiting 04/24/2013 Gastrointestinal No nausea 04/24/2013 Cardiovascular No chest pain/pressure 09/2013 Cardiovascular No edema 04/24/2013 Ears/Nose/Throat/Neck No dizziness 2013 Ears/Nose/Throat/Neck No nasal allergies 04/24/2013 Ears/Nose/Throat/Neck No nasal discharge 04/24/2013 Ears/Nose/Throat/Neck No headache 2013 Genitourinary/Nephrology No dysuria 04/24 Musculoskeletal No joint complaint 2013 Dermatologic No sores 04/24/2013 Dermatologic No rash 04/24/2013 Ears/Nose/Throat/Neck nasal discharge 05/2012 Constitutional No chills 03/20/2013 Constitutional No fever 03/20/2013 Eyes No eye discharge 03/20/2013 Eyes No eye erythema 03/20/2013 Eyes No vision change 03/20/2013 Ears/Nose/Throat/Neck No headache 2012 Respiratory productive sputum 03/20/2013 Respiratory cough 03/20/2013 Respiratory No dyspnea 03/20/2013 Ears/Nose/Throat/Neck No sore throat 05/2012 Ears/Nose/Throat/Neck facial pain 2012 Ears/Nose/Throat/Neck No otalgia 2012 Ears/Nose/Throat/Neck nasal pain 2012 Ears/Nose/Throat/Neck sinus congestion Cardiovascular No chest pain/pressure 05/2012 Cardiovascular No edema 03/20/2013 Neurologic No dizziness 03/20/2013 Dermatologic No rash 03/20/2013 Dermatologic No sores 03/20/2013 Genitourinary/Nephrology No dysuria 03/20 Genitourinary/Nephrology No urinary retention/hesitancy 03/20/2013 Genitourinary/Nephrology No urinary incontinence 03/20/2013 Constitutional No recent illness 2012 Constitutional No night sweats 2012 Constitutional No chills 01/19/2013 Constitutional No fatigue 01/19/2013 Constitutional No fever 01/19/2013 Constitutional No insomnia 01/19/2013 Eyes No vision change 01/19/2013 Ears/Nose/Throat/Neck No dizziness 2012 Ears/Nose/Throat/Neck No headache 2012 Cardiovascular No chest pain/pressure 06/2012 Cardiovascular No dyspnea 01/19/2013 Cardiovascular No edema 01/19/2013 Cardiovascular No exercise intolerance Cardiovascular No fatigue 01/19/2013 Respiratory No cough 01/19/2013 Gastrointestinal No abdominal pain 2012 Gastrointestinal No constipation 2012 Gastrointestinal No diarrhea 01/19/2013 Gastrointestinal No nausea 01/19/2013 Gastrointestinal No vomiting 01/19/2013 Musculoskeletal muscle weakness 2012 Neurologic No ataxia 01/19/2013 Neurologic No dizziness 01/19/2013 Psychiatric No anxiety 01/19/2013 Psychiatric No depression 01/19/2013 Constitutional No recent illness 2012 Constitutional No anorexia 12/26/2012 Constitutional No chills 12/26/2012 Constitutional No night sweats 2012 Constitutional No diaphoresis 12/26/2012 Constitutional No fatigue 12/26/2012 Constitutional No fever 12/26/2012 Constitutional No insomnia 12/26/2012 Constitutional No malaise 12/26/2012 Constitutional No weight loss 12/26/2012 Constitutional No weight gain 12/26/2012 Constitutional No recent illness 2012 Constitutional No night sweats 2012 Constitutional No chills 12/21/2012 Constitutional No fatigue 12/21/2012 Constitutional No fever 12/21/2012 Constitutional No insomnia 12/21/2012 Eyes No vision change 12/21/2012 Ears/Nose/Throat/Neck No dizziness 2012 Ears/Nose/Throat/Neck No headache 2012 Cardiovascular No chest pain/pressure 07/2012 Cardiovascular No dyspnea 12/21/2012 Cardiovascular No edema 12/21/2012 Cardiovascular No exercise intolerance Cardiovascular No fatigue 12/21/2012 Respiratory No cough 12/21/2012 Gastrointestinal No abdominal pain 2012 Gastrointestinal No constipation 2012 Gastrointestinal No diarrhea 12/21/2012 Gastrointestinal No nausea 12/21/2012 Gastrointestinal No vomiting 12/21/2012 Musculoskeletal muscle weakness 2012 Neurologic No ataxia 12/21/2012 Neurologic No dizziness 12/21/2012 Psychiatric No anxiety 12/21/2012 Psychiatric No depression 12/21/2012 Constitutional No recent illness 2012 Constitutional No night sweats 2012 Constitutional No chills 11/30/2012 Constitutional No fatigue 11/30/2012 Constitutional No fever 11/30/2012 Constitutional No insomnia 11/30/2012 Eyes No vision change 11/30/2012 Ears/Nose/Throat/Neck No dizziness 2012 Ears/Nose/Throat/Neck No headache 2012 Cardiovascular No chest pain/pressure Cardiovascular No dyspnea 11/30/2012 Cardiovascular No edema 11/30/2012 Cardiovascular No exercise intolerance Cardiovascular No fatigue 11/30/2012 Respiratory No cough 11/30/2012 Gastrointestinal No abdominal pain 2012 Gastrointestinal No constipation 2012 Gastrointestinal No diarrhea 11/30/2012 Gastrointestinal No nausea 11/30/2012 Gastrointestinal No vomiting 11/30/2012 Neurologic No ataxia 11/30/2012 Neurologic No dizziness 11/30/2012 Psychiatric No anxiety 11/30/2012 Psychiatric No depression 11/30/2012 Musculoskeletal muscle weakness 2012 Constitutional recent illness 05/30/2012 Constitutional No night sweats 2012 Constitutional No diaphoresis 05/30/2012 Constitutional fatigue 05/30/2012 Constitutional No fever 05/30/2012 Constitutional No insomnia 05/30/2012 Eyes No eye discharge 05/30/2012 Eyes No eye erythema 05/30/2012 Ears/Nose/Throat/Neck No dizziness 2012 Ears/Nose/Throat/Neck No headache 2012 Ears/Nose/Throat/Neck No nasal allergies 05/30/2012 Ears/Nose/Throat/Neck No nasal discharge 05/30/2012 Ears/Nose/Throat/Neck No otalgia 2012 Ears/Nose/Throat/Neck No sore throat 02/2013 Cardiovascular No chest pain/pressure 02/2013 Respiratory No productive sputum 2012 Respiratory No chest congestion 2012 Respiratory No cough 05/30/2012 Genitourinary/Nephrology No dysuria 05/30 Dermatologic No rash 05/30/2012 Dermatologic No sores 05/30/2012 Ears/Nose/Throat/Neck No dizziness 2012 Ears/Nose/Throat/Neck No headache 2012 Ears/Nose/Throat/Neck No nasal allergies 04/26/2012 Ears/Nose/Throat/Neck No nasal discharge 04/26/2012 Ears/Nose/Throat/Neck No otalgia 2012 Ears/Nose/Throat/Neck No sore throat 11/2012 Eyes No eye discharge 04/26/2012 Eyes No eye erythema 04/26/2012 Respiratory No productive sputum 2012 Respiratory No chest congestion 2012 Respiratory No cough 04/26/2012 Constitutional recent illness 04/26/2012 Constitutional anorexia 04/26/2012 Constitutional No night sweats 2012 Constitutional chills 04/26/2012 Constitutional No diaphoresis 04/26/2012 Constitutional fatigue 04/26/2012 Constitutional No insomnia 04/26/2012 Constitutional No fever 04/26/2012 Cardiovascular No chest pain/pressure 11/2012 Genitourinary/Nephrology No dysuria 04/26 Dermatologic No rash 04/26/2012 Dermatologic No sores 04/26/2012 Constitutional No recent illness 2011 Constitutional No night sweats 2011 Constitutional No chills 04/14/2012 Constitutional No fatigue 04/14/2012 Constitutional No fever 04/14/2012 Constitutional No insomnia 04/14/2012 Eyes No vision change 04/14/2012 Ears/Nose/Throat/Neck No dizziness 2011 Ears/Nose/Throat/Neck No headache 2011 Cardiovascular No chest pain/pressure Cardiovascular No dyspnea 04/14/2012 Cardiovascular No edema 04/14/2012 Cardiovascular No exercise intolerance Cardiovascular No fatigue 04/14/2012 Respiratory No cough 04/14/2012 Neurologic No ataxia 04/14/2012 Neurologic No dizziness 04/14/2012 Psychiatric No anxiety 04/14/2012 Psychiatric No depression 04/14/2012 Gastrointestinal No abdominal pain 2011 Gastrointestinal No constipation 2011 Gastrointestinal No diarrhea 04/14/2012 Gastrointestinal No nausea 04/14/2012 Gastrointestinal No vomiting 04/14/2012 Constitutional No recent illness 2011 Constitutional No anorexia 02/22/2012 Constitutional No night sweats 2011 Constitutional No chills 02/22/2012 Constitutional No diaphoresis 02/22/2012 Constitutional fatigue 02/22/2012 Constitutional No fever 02/22/2012 Constitutional No insomnia 02/22/2012 Constitutional No malaise 02/22/2012 Cardiovascular No chest pain/pressure 08/2011 Respiratory No cough 02/22/2012 Eyes No eye discharge 02/22/2012 Eyes No eye erythema 02/22/2012 Ears/Nose/Throat/Neck No dizziness 2011 Gastrointestinal No vomiting 02/22/2012 Gastrointestinal No nausea 02/22/2012 Constitutional No recent illness 2011 Constitutional No night sweats 2011 Constitutional No chills 01/13/2012 Constitutional No fatigue 01/13/2012 Constitutional No fever 01/13/2012 Constitutional No insomnia 01/13/2012 Eyes No vision change 01/13/2012 Ears/Nose/Throat/Neck No dizziness 2011 Ears/Nose/Throat/Neck No headache 2011 Cardiovascular No chest pain/pressure Cardiovascular No dyspnea 01/13/2012 Cardiovascular No edema 01/13/2012 Cardiovascular No exercise intolerance Cardiovascular No fatigue 01/13/2012 Respiratory No cough 01/13/2012 Genitourinary/Nephrology breast complaint 01/13/2012 Neurologic No ataxia 01/13/2012 Neurologic No dizziness 01/13/2012 Psychiatric No anxiety 01/13/2012 Psychiatric No depression 01/13/2012 Neurologic No ataxia 09/02/2011 Neurologic No dizziness 09/02/2011 Psychiatric No anxiety 09/02/2011 Psychiatric No depression 09/02/2011 Constitutional No recent illness 2011 Constitutional No night sweats 2011 Constitutional No chills 09/02/2011 Constitutional No fatigue 09/02/2011 Constitutional No fever 09/02/2011 Constitutional No insomnia 09/02/2011 Eyes No vision change 09/02/2011 Ears/Nose/Throat/Neck No dizziness 2011 Ears/Nose/Throat/Neck No headache 2011 Cardiovascular No chest pain/pressure Cardiovascular No dyspnea 09/02/2011 Cardiovascular No edema 09/02/2011 Cardiovascular No exercise intolerance Cardiovascular No fatigue 09/02/2011 Respiratory No cough 09/02/2011 Genitourinary/Nephrology breast complaint 09/02/2011 Endocrine diabetes mellitus type 2 2011 Constitutional No recent illness 2011 Constitutional No night sweats 2011 Constitutional No chills 08/05/2011 Constitutional No fatigue 08/05/2011 Constitutional No fever 08/05/2011 Constitutional No insomnia 08/05/2011 Ears/Nose/Throat/Neck No dizziness 2011 Ears/Nose/Throat/Neck No headache 2011 Cardiovascular No chest pain/pressure Cardiovascular No dyspnea 08/05/2011 Cardiovascular No edema 08/05/2011 Cardiovascular No exercise intolerance Cardiovascular No fatigue 08/05/2011 Respiratory No cough 08/05/2011 Neurologic No dizziness 08/05/2011 Psychiatric No anxiety 08/05/2011 Psychiatric No depression 08/05/2011 Cardiovascular No exercise intolerance Cardiovascular No fatigue 07/01/2011 Respiratory No cough 07/01/2011 Genitourinary/Nephrology breast complaint 07/01/2011 Psychiatric No anxiety 07/01/2011 Psychiatric No depression 07/01/2011 Neurologic No ataxia 07/01/2011 Neurologic No dizziness 07/01/2011 Constitutional No recent illness 2011 Constitutional No night sweats 2011 Constitutional No chills 07/01/2011 Constitutional No fatigue 07/01/2011 Constitutional No fever 07/01/2011 Constitutional No insomnia 07/01/2011 Eyes No vision change 07/01/2011 Ears/Nose/Throat/Neck No headache 2011 Ears/Nose/Throat/Neck No dizziness 2011 Cardiovascular No chest pain/pressure Cardiovascular No dyspnea 07/01/2011 Cardiovascular No edema 07/01/2011 Physical Exam Exam Name System Name Item Name Status Result Effective Dates Notes Full Exam - General 1994 Constitutional general appearance Overall: well developed 05/13/2017 None Full Exam - General 1994 Constitutional general appearance Overall: in no acute distress 05/13/2017 None Full Exam - General 1994 Constitutional general appearance Overall: well nourished 05/13/2017 None Full Exam - General 1994 Eyes conjunctiva /eyelids Overall: conjunctiva clear 05/13/2017 None Full Exam - General 1994 Eyes conjunctiva /eyelids Overall: cornea clear 05/13/2017 None Full Exam - General 1994 Eyes conjunctiva /eyelids Overall: eyelids normal 05/13/2017 None Full Exam - General 1994 Ears/Nose/Throat otoscopic exam Overall: external auditory canals clear 05/13/2017 None Full Exam - General 1994 Ears/Nose/Throat otoscopic exam Overall: tympanic membranes clear 05/13/2017 None Full Exam - General 1994 Ears/Nose/Throat oral cavity/pharynx/larynx Overall: oral mucosa clear 05/13/2017 None Full Exam - General 1994 Ears/Nose/Throat oral cavity/pharynx/larynx Overall: oropharyngeal mucosa clear 05/13/2017 None Full Exam - General 1994 Ears/Nose/Throat oral cavity/pharynx/larynx Overall: no masses 05/13/2017 None Full Exam - General 1994 Respiratory auscultation Overall: breath sounds clear bilaterally 05/13/2017 None Full Exam - General 1994 Respiratory respiratory effort/rhythm Overall: no retractions 05/13/2017 None Full Exam - General 1994 Respiratory respiratory effort/rhythm Overall: normal rate 05/13/2017 None Full Exam - General 1994 Cardiovascular extremities Edema present: pitting 05/13/2017 None Full Exam - General 1994 Cardiovascular extremities Edema present: severity 1+ - 4 +: 2+ 05/13/2017 None Full Exam - General 1994 Cardiovascular auscultation of heart Overall: regular rate 05/13/2017 None Full Exam - General 1994 Cardiovascular auscultation of heart Overall: normal heart sounds 05/13/2017 None Full Exam - General 1994 Abdomen abdominal exam Overall: no tenderness 05/13/2017 None Full Exam - General 1994 Abdomen abdominal exam Overall: normal bowel sounds 05/13/2017 None Full Exam - General 1994 Musculoskeletal spine, ribs and pelvis Posture: lordosis 05/13/2017 None Full Exam - General 1994 Neurologic gait Conventional walking: wide-based 05/13/2017 None Full Exam - General 1994 Neurologic cranial nerves Overall: crainial nerves 2 - 12 grossly intact 05/13/2017 None Full Exam - General 1994 Psychiatric orientation/consciousness Overall: oriented to person, place and time 05/13/2017 None Full Exam - General 1994 Psychiatric mood and affect Overall: normal mood and affect 05/13/2017 None Full Exam - Dermatology Constitutional general appearance Overall: well nourished 04/28/2017 None Full Exam - Dermatology Constitutional general appearance Overall: well developed 04/28/2017 None Full Exam - Dermatology Constitutional general appearance Overall: in no acute distress 04/28/2017 None Full Exam - Dermatology Eyes conjunctiva/ eyelids Overall: clear conjunctiva bilaterally 04/28/2017 None Full Exam - Dermatology Eyes conjunctiva/ eyelids Overall: clear corneas 04/28/2017 None Full Exam - Dermatology Eyes conjunctiva/ eyelids Overall: normal eyelids 04/28/2017 None Full Exam - Dermatology Ears/Nose/Throat lips/teeth/gingiva Overall: benign lips 04/28/2017 None Full Exam - Dermatology Ears/Nose/Throat oropharynx Overall: clear oral mucosa 04/28/2017 None Full Exam - Dermatology Respiratory respiratory effort/rhythm Overall: no retractions 04/28/2017 None Full Exam - Dermatology Respiratory respiratory effort/rhythm Overall: normal rate 04/28/2017 None Full Exam - Dermatology Musculoskeletal head and neck Overall: head atraumatic 04/28/2017 None Full Exam - Dermatology Integument insp & palp - left lower extremity Lesion: patch 04/28/2017 None Full Exam - Dermatology Integument insp & palp - left lower extremity Location: on the heredia 04/28/2017 None Full Exam - Dermatology Integument insp & palp - left lower extremity Location: on the calf 04/28/2017 None Full Exam - Dermatology Integument insp & palp - left lower extremity Color: erythematous 04/28/2017 None Full Exam - Dermatology Integument insp & palp - left lower extremity Consistency: non-tender 04/28/2017 None Full Exam - Dermatology Psychiatric orientation Overall: oriented to person, place and time 04/28/2017 None Full Exam - Dermatology Psychiatric mood and affect Overall: normal mood and affect 04/28/2017 None Full Exam - General 1994 Constitutional general appearance Overall: well developed 04/15/2017 None Full Exam - General 1994 Constitutional general appearance Overall: in no acute distress 04/15/2017 None Full Exam - General 1994 Constitutional general appearance Overall: well nourished 04/15/2017 None Full Exam - General 1994 Eyes conjunctiva /eyelids Overall: conjunctiva clear 04/15/2017 None Full Exam - General 1994 Eyes conjunctiva /eyelids Overall: cornea clear 04/15/2017 None Full Exam - General 1994 Eyes conjunctiva /eyelids Overall: eyelids normal 04/15/2017 None Full Exam - General 1994 Ears/Nose/Throat otoscopic exam Overall: external auditory canals clear 04/15/2017 None Full Exam - General 1994 Ears/Nose/Throat otoscopic exam Overall: tympanic membranes clear 04/15/2017 None Full Exam - General 1994 Ears/Nose/Throat oral cavity/pharynx/larynx Overall: oral mucosa clear 04/15/2017 None Full Exam - General 1994 Ears/Nose/Throat oral cavity/pharynx/larynx Overall: oropharyngeal mucosa clear 04/15/2017 None Full Exam - General 1994 Ears/Nose/Throat oral cavity/pharynx/larynx Overall: no masses 04/15/2017 None Full Exam - General 1994 Respiratory auscultation Overall: breath sounds clear bilaterally 04/15/2017 None Full Exam - General 1994 Respiratory respiratory effort/rhythm Overall: no retractions 04/15/2017 None Full Exam - General 1994 Respiratory respiratory effort/rhythm Overall: normal rate 04/15/2017 None Full Exam - General 1994 Cardiovascular extremities Edema present: pitting 04/15/2017 None Full Exam - General 1994 Cardiovascular extremities Edema present: severity 1+ - 4 +: 2+ 04/15/2017 None Full Exam - General 1994 Cardiovascular auscultation of heart Overall: regular rate 04/15/2017 None Full Exam - General 1994 Cardiovascular auscultation of heart Overall: normal heart sounds 04/15/2017 None Full Exam - General 1994 Abdomen abdominal exam Overall: no tenderness 04/15/2017 None Full Exam - General 1994 Abdomen abdominal exam Overall: normal bowel sounds 04/15/2017 None Full Exam - General 1994 Musculoskeletal spine, ribs and pelvis Posture: lordosis 04/15/2017 None Full Exam - General 1994 Neurologic gait Conventional walking: wide-based 04/15/2017 None Full Exam - General 1994 Neurologic cranial nerves Overall: crainial nerves 2 - 12 grossly intact 04/15/2017 None Full Exam - General 1994 Psychiatric orientation/consciousness Overall: oriented to person, place and time 04/15/2017 None Full Exam - General 1994 Psychiatric mood and affect Overall: normal mood and affect 04/15/2017 None Full Exam - General 1994 Constitutional general appearance Overall: well developed 02/04/2017 None Full Exam - General 1994 Constitutional general appearance Overall: in no acute distress 02/04/2017 None Full Exam - General 1994 Constitutional general appearance Overall: well nourished 02/04/2017 None Full Exam - General 1994 Eyes conjunctiva /eyelids Overall: conjunctiva clear 02/04/2017 None Full Exam - General 1994 Eyes conjunctiva /eyelids Overall: cornea clear 02/04/2017 None Full Exam - General 1994 Eyes conjunctiva /eyelids Overall: eyelids normal 02/04/2017 None Full Exam - General 1994 Ears/Nose/Throat otoscopic exam Overall: external auditory canals clear 02/04/2017 None Full Exam - General 1994 Ears/Nose/Throat otoscopic exam Overall: tympanic membranes clear 02/04/2017 None Full Exam - General 1994 Ears/Nose/Throat oral cavity/pharynx/larynx Overall: oral mucosa clear 02/04/2017 None Full Exam - General 1994 Ears/Nose/Throat oral cavity/pharynx/larynx Overall: oropharyngeal mucosa clear 02/04/2017 None Full Exam - General 1994 Ears/Nose/Throat oral cavity/pharynx/larynx Overall: no masses 02/04/2017 None Full Exam - General 1994 Respiratory auscultation Overall: breath sounds clear bilaterally 02/04/2017 None Full Exam - General 1994 Respiratory respiratory effort/rhythm Overall: no retractions 02/04/2017 None Full Exam - General 1994 Respiratory respiratory effort/rhythm Overall: normal rate 02/04/2017 None Full Exam - General 1994 Cardiovascular extremities Edema present: pitting 02/04/2017 None Full Exam - General 1994 Cardiovascular extremities Edema present: severity 1+ - 4 +: 2+ 02/04/2017 None Full Exam - General 1994 Cardiovascular auscultation of heart Overall: regular rate 02/04/2017 None Full Exam - General 1994 Cardiovascular auscultation of heart Overall: normal heart sounds 02/04/2017 None Full Exam - General 1994 Abdomen abdominal exam Overall: no tenderness 02/04/2017 None Full Exam - General 1994 Abdomen abdominal exam Overall: normal bowel sounds 02/04/2017 None Full Exam - General 1994 Musculoskeletal spine, ribs and pelvis Posture: lordosis 02/04/2017 None Full Exam - General 1994 Neurologic gait Conventional walking: wide-based 02/04/2017 None Full Exam - General 1994 Neurologic cranial nerves Overall: crainial nerves 2 - 12 grossly intact 02/04/2017 None Full Exam - General 1994 Psychiatric orientation/consciousness Overall: oriented to person, place and time 02/04/2017 None Full Exam - General 1994 Psychiatric mood and affect Overall: normal mood and affect 02/04/2017 None Full Exam - General 1994 Constitutional general appearance Overall: well developed 10/12/2016 None Full Exam - General 1994 Constitutional general appearance Overall: in no acute distress 10/12/2016 None Full Exam - General 1994 Constitutional general appearance Overall: well nourished 10/12/2016 None Full Exam - General 1994 Eyes conjunctiva /eyelids Overall: conjunctiva clear 10/12/2016 None Full Exam - General 1994 Eyes conjunctiva /eyelids Overall: eyelids normal 10/12/2016 None Full Exam - General 1994 Ears/Nose/Throat oral cavity/pharynx/larynx Overall: oral mucosa clear 10/12/2016 None Full Exam - General 1994 Respiratory respiratory effort/rhythm Overall: no retractions 10/12/2016 None Full Exam - General 1994 Respiratory respiratory effort/rhythm Overall: normal rate 10/12/2016 None Full Exam - General 1994 Musculoskeletal spine, ribs and pelvis Posture: lordosis 10/12/2016 None Full Exam - General 1994 Neurologic gait Conventional walking: wide-based 10/12/2016 None Full Exam - General 1994 Neurologic cranial nerves Overall: crainial nerves 2 - 12 grossly intact 10/12/2016 None Full Exam - General 1994 Psychiatric orientation/consciousness Overall: oriented to person, place and time 10/12/2016 None Full Exam - General 1994 Psychiatric mood and affect Overall: normal mood and affect 10/12/2016 None Full Exam - General 1994 Ears/Nose/Throat lips/teeth/gingiva Overall: benign lips 10/12/2016 None Full Exam - General 1994 Constitutional general appearance Overall: well developed 10/08/2016 None Full Exam - General 1994 Constitutional general appearance Overall: in no acute distress 10/08/2016 None Full Exam - General 1994 Constitutional general appearance Overall: well nourished 10/08/2016 None Full Exam - General 1994 Eyes conjunctiva /eyelids Overall: conjunctiva clear 10/08/2016 None Full Exam - General 1994 Eyes conjunctiva /eyelids Overall: cornea clear 10/08/2016 None Full Exam - General 1994 Eyes conjunctiva /eyelids Overall: eyelids normal 10/08/2016 None Full Exam - General 1994 Ears/Nose/Throat otoscopic exam Overall: external auditory canals clear 10/08/2016 None Full Exam - General 1994 Ears/Nose/Throat otoscopic exam Overall: tympanic membranes clear 10/08/2016 None Full Exam - General 1994 Ears/Nose/Throat oral cavity/pharynx/larynx Overall: oral mucosa clear 10/08/2016 None Full Exam - General 1994 Ears/Nose/Throat oral cavity/pharynx/larynx Overall: oropharyngeal mucosa clear 10/08/2016 None Full Exam - General 1994 Ears/Nose/Throat oral cavity/pharynx/larynx Overall: no masses 10/08/2016 None Full Exam - General 1994 Neck inspection of neck Appearance: surgical scarring 10/08/2016 None Full Exam - General 1994 Respiratory auscultation Overall: breath sounds clear bilaterally 10/08/2016 None Full Exam - General 1994 Respiratory respiratory effort/rhythm Overall: no retractions 10/08/2016 None Full Exam - General 1994 Respiratory respiratory effort/rhythm Overall: normal rate 10/08/2016 None Full Exam - General 1994 Cardiovascular extremities Edema present: pitting 10/08/2016 None Full Exam - General 1994 Cardiovascular extremities Edema present: severity 1+ - 4 +: 2+ 10/08/2016 None Full Exam - General 1994 Cardiovascular auscultation of heart Overall: regular rate 10/08/2016 None Full Exam - General 1994 Cardiovascular auscultation of heart Overall: normal heart sounds 10/08/2016 None Full Exam - General 1994 Abdomen abdominal exam Overall: no tenderness 10/08/2016 None Full Exam - General 1994 Abdomen abdominal exam Overall: normal bowel sounds 10/08/2016 None Full Exam - General 1994 Musculoskeletal spine, ribs and pelvis Posture: lordosis 10/08/2016 None Full Exam - General 1994 Neurologic gait Conventional walking: wide-based 10/08/2016 None Full Exam - General 1994 Neurologic cranial nerves Overall: crainial nerves 2 - 12 grossly intact 10/08/2016 None Full Exam - General 1994 Psychiatric orientation/consciousness Overall: oriented to person, place and time 10/08/2016 None Full Exam - General 1994 Psychiatric mood and affect Overall: normal mood and affect 10/08/2016 None Full Exam - General 1994 Constitutional general appearance Overall: well developed 09/10/2016 None Full Exam - General 1994 Constitutional general appearance Overall: in no acute distress 09/10/2016 None Full Exam - General 1994 Constitutional general appearance Overall: well nourished 09/10/2016 None Full Exam - General 1994 Eyes conjunctiva /eyelids Overall: conjunctiva clear 09/10/2016 None Full Exam - General 1994 Eyes conjunctiva /eyelids Overall: cornea clear 09/10/2016 None Full Exam - General 1994 Eyes conjunctiva /eyelids Overall: eyelids normal 09/10/2016 None Full Exam - General 1994 Ears/Nose/Throat otoscopic exam Overall: external auditory canals clear 09/10/2016 None Full Exam - General 1994 Ears/Nose/Throat otoscopic exam Overall: tympanic membranes clear 09/10/2016 None Full Exam - General 1994 Ears/Nose/Throat oral cavity/pharynx/larynx Overall: oral mucosa clear 09/10/2016 None Full Exam - General 1994 Ears/Nose/Throat oral cavity/pharynx/larynx Overall: oropharyngeal mucosa clear 09/10/2016 None Full Exam - General 1994 Ears/Nose/Throat oral cavity/pharynx/larynx Overall: no masses 09/10/2016 None Full Exam - General 1994 Respiratory auscultation Overall: breath sounds clear bilaterally 09/10/2016 None Full Exam - General 1994 Respiratory respiratory effort/rhythm Overall: no retractions 09/10/2016 None Full Exam - General 1994 Respiratory respiratory effort/rhythm Overall: normal rate 09/10/2016 None Full Exam - General 1994 Cardiovascular extremities Edema present: pitting 09/10/2016 None Full Exam - General 1994 Cardiovascular extremities Edema present: severity 1+ - 4 +: 2+ 09/10/2016 None Full Exam - General 1994 Cardiovascular auscultation of heart Overall: regular rate 09/10/2016 None Full Exam - General 1994 Cardiovascular auscultation of heart Overall: normal heart sounds 09/10/2016 None Full Exam - General 1994 Abdomen abdominal exam Overall: no tenderness 09/10/2016 None Full Exam - General 1994 Abdomen abdominal exam Overall: normal bowel sounds 09/10/2016 None Full Exam - General 1994 Musculoskeletal spine, ribs and pelvis Posture: lordosis 09/10/2016 None Full Exam - General 1994 Neurologic gait Conventional walking: wide-based 09/10/2016 None Full Exam - General 1994 Neurologic cranial nerves Overall: crainial nerves 2 - 12 grossly intact 09/10/2016 None Full Exam - General 1994 Psychiatric orientation/consciousness Overall: oriented to person, place and time 09/10/2016 None Full Exam - General 1994 Psychiatric mood and affect Overall: normal mood and affect 09/10/2016 None Full Exam - General 1994 Neck inspection of neck Appearance: surgical scarring 09/10/2016 with steri strips d/i Full Exam - General 1994 Constitutional general appearance Overall: well developed 08/24/2016 None Full Exam - General 1994 Constitutional general appearance Overall: in no acute distress 08/24/2016 None Full Exam - General 1994 Constitutional general appearance Overall: well nourished 08/24/2016 None Full Exam - General 1994 Eyes conjunctiva /eyelids Overall: conjunctiva clear 08/24/2016 None Full Exam - General 1994 Eyes conjunctiva /eyelids Overall: cornea clear 08/24/2016 None Full Exam - General 1994 Eyes conjunctiva /eyelids Overall: eyelids normal 08/24/2016 None Full Exam - General 1994 Ears/Nose/Throat oral cavity/pharynx/larynx Overall: oral mucosa clear 08/24/2016 None Full Exam - General 1994 Ears/Nose/Throat oral cavity/pharynx/larynx Overall: oropharyngeal mucosa clear 08/24/2016 None Full Exam - General 1994 Ears/Nose/Throat oral cavity/pharynx/larynx Overall: no masses 08/24/2016 None Full Exam - General 1994 Respiratory auscultation Overall: breath sounds clear bilaterally 08/24/2016 None Full Exam - General 1994 Respiratory respiratory effort/rhythm Overall: no retractions 08/24/2016 None Full Exam - General 1994 Respiratory respiratory effort/rhythm Overall: normal rate 08/24/2016 None Full Exam - General 1994 Cardiovascular extremities Edema present: pitting 08/24/2016 None Full Exam - General 1994 Cardiovascular extremities Edema present: severity 1+ - 4 +: 2+ 08/24/2016 None Full Exam - General 1994 Cardiovascular auscultation of heart Overall: regular rate 08/24/2016 None Full Exam - General 1994 Cardiovascular auscultation of heart Overall: normal heart sounds 08/24/2016 None Full Exam - General 1994 Abdomen abdominal exam Overall: no tenderness 08/24/2016 None Full Exam - General 1994 Abdomen abdominal exam Overall: normal bowel sounds 08/24/2016 None Full Exam - General 1994 Musculoskeletal spine, ribs and pelvis Posture: lordosis 08/24/2016 None Full Exam - General 1994 Neurologic gait Conventional walking: wide-based 08/24/2016 None Full Exam - General 1994 Neurologic cranial nerves Overall: crainial nerves 2 - 12 grossly intact 08/24/2016 None Full Exam - General 1994 Psychiatric orientation/consciousness Overall: oriented to person, place and time 08/24/2016 None Full Exam - General 1994 Psychiatric mood and affect Overall: normal mood and affect 08/24/2016 None Full Exam - General 1994 Psychiatric speech Rate of production: slow 08/24/2016 voice hoarse Full Exam - General 1994 Musculoskeletal gait and station Gait: asymmetric 08/24/2016 None Full Exam - General 1994 Constitutional general appearance Evidence of Distress: tearful 08/24/2016 None Full Exam - General 1994 Neck thyroid Consistency: nodular 11/2016 None Full Exam - General 1994 Neck thyroid Masses: left lobe 2016 None Full Exam - General 1994 Neck thyroid Masses: right lobe 2016 None Full Exam - General 1994 Constitutional general appearance Development: well developed 08/06/2016 None Full Exam - General 1994 Constitutional general appearance Development: appears stated age 0408/06/2016 None Full Exam - General 1994 Eyes conjunctiva /eyelids Overall: conjunctiva clear 08/06/2016 None Full Exam - General 1994 Eyes conjunctiva /eyelids Overall: cornea clear 08/06/2016 None Full Exam - General 1994 Eyes conjunctiva /eyelids Overall: eyelids normal 08/06/2016 None Full Exam - General 1994 Eyes pupils and irises Overall: pupils equal, round, reactive to light and accomodation 08/06/2016 None Full Exam - General 1994 Ears/Nose/Throat otoscopic exam Overall: external auditory canals clear 08/06/2016 None Full Exam - General 1994 Ears/Nose/Throat otoscopic exam Overall: tympanic membranes clear 08/06/2016 None Full Exam - General 1994 Ears/Nose/Throat oral cavity/pharynx/larynx Overall: oral mucosa clear 08/06/2016 None Full Exam - General 1994 Ears/Nose/Throat lips/teeth/gingiva Overall: benign lips 08/06/2016 None Full Exam - General 1994 Ears/Nose/Throat lips/teeth/gingiva Overall: normal dentition 08/06/2016 None Full Exam - General 1994 Neck thyroid Overall: normal size None Full Exam - General 1994 Neck thyroid Overall: normal consistency 08/06/2016 None Full Exam - General 1994 Neck inspection of neck Overall: normal size 08/06/2016 None Full Exam - General 1994 Neck inspection of neck Overall: normal appearance 08/06/2016 None Full Exam - General 1994 Neck thyroid Overall: nontender 2016 None Full Exam - General 1994 Respiratory respiratory effort/rhythm Overall: no retractions 08/06/2016 None Full Exam - General 1994 Respiratory respiratory effort/rhythm Overall: normal rate 08/06/2016 None Full Exam - General 1994 Cardiovascular extremities Edema present: pitting 08/06/2016 None Full Exam - General 1994 Cardiovascular extremities Edema present: severity 1+ - 4 +: 3+ 08/06/2016 None Full Exam - General 1994 Cardiovascular auscultation of heart Overall: regular rate 08/06/2016 None Full Exam - General 1994 Cardiovascular auscultation of heart Overall: normal heart sounds 08/06/2016 None Full Exam - General 1994 Abdomen abdominal exam Contour: rounded 08/06/2016 None Full Exam - General 1994 Abdomen abdominal exam Bowel sounds: hypoactive 08/06/2016 None Full Exam - General 1994 Abdomen abdominal exam Upper quadrant: non-tender to palpation 08/06/2016 None Full Exam - General 1994 Abdomen abdominal exam Lower quadrant: non-tender to palpation 08/06/2016 None Full Exam - General 1994 Lymphatic neck nodes Overall: anterior cervical chain benign 08/06/2016 None Full Exam - General 1994 Lymphatic neck nodes Overall: posterior cervical chain benign 08/06/2016 None Full Exam - General 1994 Musculoskeletal gait and station Gait: abnormal stride length 08/06/2016 None Full Exam - General 1994 Musculoskeletal head and neck Overall: head atraumatic 08/06/2016 None Full Exam - General 1994 Musculoskeletal head and neck Overall: cervical spine benign 08/06/2016 None Full Exam - General 1994 Integument inspection of skin Overall: no rash, lesions 08/06/2016 None Full Exam - General 1994 Neurologic mental status Overall: alert 08/06/2016 None Full Exam - General 1994 Neurologic mental status Overall: oriented 08/06/2016 None Full Exam - General 1994 Psychiatric orientation/consciousness Overall: oriented to person, place and time 08/06/2016 None Full Exam - General 1994 Psychiatric mood and affect Mood: flat 08/06/2016 None Full Exam - General 1994 Psychiatric speech Overall: normal quality, no aphasia 08/06/2016 None Full Exam - ENT Constitutional general appearance Overall: well nourished 07/30/2016 None Full Exam - ENT Constitutional general appearance Overall: well developed 07/30/2016 None Full Exam - ENT Constitutional general appearance Overall: in no acute distress 07/30/2016 None Full Exam - ENT Neurologic orientation Overall: oriented to person, place and time 07/30/2016 None Full Exam - ENT Integument inspection of skin Overall: no rash, lesions 07/30/2016 None Full Exam - ENT Cardiovascular auscultation of heart Overall: regular rate 07/30/2016 None Full Exam - ENT Cardiovascular auscultation of heart Overall: normal heart sounds 07/30/2016 None Full Exam - ENT Respiratory inspection Overall: no retractions 07/30/2016 None Full Exam - ENT Respiratory inspection Overall: normal rate None Full Exam - ENT Respiratory auscultation Overall: breath sounds clear bilaterally 07/30/2016 None Full Exam - ENT Face and Head palpation Overall: no sinus tenderness 07/30/2016 None Full Exam - ENT Ears/Nose/Throat otoscopic exam Overall: external auditory canals normal 07/30/2016 None Full Exam - ENT Ears/Nose/Throat otoscopic exam Overall: tympanic membranes normal 07/30/2016 None Full Exam - ENT Ears/Nose/Throat oropharynx Overall: oral mucosa clear 07/30/2016 None Full Exam - ENT Eyes ocular motility Overall: extraocular movement intact 07/30/2016 None Full Exam - General 1994 Constitutional general appearance Overall: well developed 06/22/2016 None Full Exam - General 1994 Constitutional general appearance Overall: in no acute distress 06/22/2016 None Full Exam - General 1994 Constitutional general appearance Overall: well nourished 06/22/2016 None Full Exam - General 1994 Eyes conjunctiva /eyelids Overall: conjunctiva clear 06/22/2016 None Full Exam - General 1994 Eyes conjunctiva /eyelids Overall: cornea clear 06/22/2016 None Full Exam - General 1994 Eyes conjunctiva /eyelids Overall: eyelids normal 06/22/2016 None Full Exam - General 1994 Ears/Nose/Throat otoscopic exam Overall: external auditory canals clear 06/22/2016 None Full Exam - General 1994 Ears/Nose/Throat otoscopic exam Overall: tympanic membranes clear 06/22/2016 None Full Exam - General 1994 Ears/Nose/Throat oral cavity/pharynx/larynx Overall: oral mucosa clear 06/22/2016 None Full Exam - General 1994 Ears/Nose/Throat oral cavity/pharynx/larynx Overall: oropharyngeal mucosa clear 06/22/2016 None Full Exam - General 1994 Ears/Nose/Throat oral cavity/pharynx/larynx Overall: no masses 06/22/2016 None Full Exam - General 1994 Respiratory auscultation Overall: breath sounds clear bilaterally 06/22/2016 None Full Exam - General 1994 Respiratory respiratory effort/rhythm Overall: no retractions 06/22/2016 None Full Exam - General 1994 Respiratory respiratory effort/rhythm Overall: normal rate 06/22/2016 None Full Exam - General 1994 Cardiovascular extremities Edema present: pitting 06/22/2016 None Full Exam - General 1994 Cardiovascular extremities Edema present: severity 1+ - 4 +: 2+ 06/22/2016 None Full Exam - General 1994 Cardiovascular auscultation of heart Overall: regular rate 06/22/2016 None Full Exam - General 1994 Cardiovascular auscultation of heart Overall: normal heart sounds 06/22/2016 None Full Exam - General 1994 Abdomen abdominal exam Overall: no tenderness 06/22/2016 None Full Exam - General 1994 Abdomen abdominal exam Overall: normal bowel sounds 06/22/2016 None Full Exam - General 1994 Musculoskeletal spine, ribs and pelvis Posture: lordosis 06/22/2016 None Full Exam - General 1994 Neurologic gait Conventional walking: wide-based 06/22/2016 None Full Exam - General 1994 Neurologic cranial nerves Overall: crainial nerves 2 - 12 grossly intact 06/22/2016 None Full Exam - General 1994 Psychiatric orientation/consciousness Overall: oriented to person, place and time 06/22/2016 None Full Exam - General 1994 Psychiatric mood and affect Overall: normal mood and affect 06/22/2016 None Full Exam - General 1994 Constitutional general appearance Overall: well developed 04/27/2016 None Full Exam - General 1994 Constitutional general appearance Overall: in no acute distress 04/27/2016 None Full Exam - General 1994 Constitutional general appearance Overall: well nourished 04/27/2016 None Full Exam - General 1994 Eyes conjunctiva /eyelids Overall: conjunctiva clear 04/27/2016 None Full Exam - General 1994 Eyes conjunctiva /eyelids Overall: cornea clear 04/27/2016 None Full Exam - General 1994 Eyes conjunctiva /eyelids Overall: eyelids normal 04/27/2016 None Full Exam - General 1994 Ears/Nose/Throat otoscopic exam Overall: external auditory canals clear 04/27/2016 None Full Exam - General 1994 Ears/Nose/Throat otoscopic exam Overall: tympanic membranes clear 04/27/2016 None Full Exam - General 1994 Ears/Nose/Throat oral cavity/pharynx/larynx Overall: oral mucosa clear 04/27/2016 None Full Exam - General 1994 Ears/Nose/Throat oral cavity/pharynx/larynx Overall: oropharyngeal mucosa clear 04/27/2016 None Full Exam - General 1994 Ears/Nose/Throat oral cavity/pharynx/larynx Overall: no masses 04/27/2016 None Full Exam - General 1994 Respiratory auscultation Overall: breath sounds clear bilaterally 04/27/2016 None Full Exam - General 1994 Respiratory respiratory effort/rhythm Overall: no retractions 04/27/2016 None Full Exam - General 1994 Respiratory respiratory effort/rhythm Overall: normal rate 04/27/2016 None Full Exam - General 1994 Cardiovascular extremities Edema present: pitting 04/27/2016 None Full Exam - General 1994 Cardiovascular extremities Edema present: severity 1+ - 4 +: 2+ 04/27/2016 None Full Exam - General 1994 Cardiovascular auscultation of heart Overall: regular rate 04/27/2016 None Full Exam - General 1994 Cardiovascular auscultation of heart Overall: normal heart sounds 04/27/2016 None Full Exam - General 1994 Abdomen abdominal exam Overall: no tenderness 04/27/2016 None Full Exam - General 1994 Abdomen abdominal exam Overall: normal bowel sounds 04/27/2016 None Full Exam - General 1994 Musculoskeletal spine, ribs and pelvis Posture: lordosis 04/27/2016 None Full Exam - General 1994 Neurologic gait Conventional walking: wide-based 04/27/2016 None Full Exam - General 1994 Neurologic cranial nerves Overall: crainial nerves 2 - 12 grossly intact 04/27/2016 None Full Exam - General 1994 Psychiatric orientation/consciousness Overall: oriented to person, place and time 04/27/2016 None Full Exam - General 1994 Psychiatric mood and affect Overall: normal mood and affect 04/27/2016 None Full Exam - General 1994 Constitutional general appearance Overall: well developed 03/23/2016 None Full Exam - General 1994 Constitutional general appearance Overall: in no acute distress 03/23/2016 None Full Exam - General 1994 Constitutional general appearance Overall: well nourished 03/23/2016 None Full Exam - General 1994 Eyes conjunctiva /eyelids Overall: conjunctiva clear 03/23/2016 None Full Exam - General 1994 Eyes conjunctiva /eyelids Overall: cornea clear 03/23/2016 None Full Exam - General 1994 Eyes conjunctiva /eyelids Overall: eyelids normal 03/23/2016 None Full Exam - General 1994 Ears/Nose/Throat otoscopic exam Overall: external auditory canals clear 03/23/2016 None Full Exam - General 1994 Ears/Nose/Throat otoscopic exam Overall: tympanic membranes clear 03/23/2016 None Full Exam - General 1994 Ears/Nose/Throat oral cavity/pharynx/larynx Overall: oral mucosa clear 03/23/2016 None Full Exam - General 1994 Ears/Nose/Throat oral cavity/pharynx/larynx Overall: oropharyngeal mucosa clear 03/23/2016 None Full Exam - General 1994 Ears/Nose/Throat oral cavity/pharynx/larynx Overall: no masses 03/23/2016 None Full Exam - General 1994 Respiratory auscultation Overall: breath sounds clear bilaterally 03/23/2016 None Full Exam - General 1994 Respiratory respiratory effort/rhythm Overall: no retractions 03/23/2016 None Full Exam - General 1994 Respiratory respiratory effort/rhythm Overall: normal rate 03/23/2016 None Full Exam - General 1994 Cardiovascular extremities Edema present: pitting 03/23/2016 None Full Exam - General 1994 Cardiovascular extremities Edema present: severity 1+ - 4 +: 2+ 03/23/2016 None Full Exam - General 1994 Cardiovascular auscultation of heart Overall: regular rate 03/23/2016 None Full Exam - General 1994 Cardiovascular auscultation of heart Overall: normal heart sounds 03/23/2016 None Full Exam - General 1994 Abdomen abdominal exam Overall: no tenderness 03/23/2016 None Full Exam - General 1994 Abdomen abdominal exam Overall: normal bowel sounds 03/23/2016 None Full Exam - General 1994 Musculoskeletal spine, ribs and pelvis Posture: lordosis 03/23/2016 None Full Exam - General 1994 Neurologic gait Conventional walking: wide-based 03/23/2016 None Full Exam - General 1994 Neurologic cranial nerves Overall: crainial nerves 2 - 12 grossly intact 03/23/2016 None Full Exam - General 1994 Psychiatric orientation/consciousness Overall: oriented to person, place and time 03/23/2016 None Full Exam - General 1994 Psychiatric mood and affect Overall: normal mood and affect 03/23/2016 None Full Exam - General 1994 Constitutional general appearance Overall: well developed 01/20/2016 None Full Exam - General 1994 Constitutional general appearance Overall: in no acute distress 01/20/2016 None Full Exam - General 1994 Constitutional general appearance Overall: well nourished 01/20/2016 None Full Exam - General 1994 Eyes conjunctiva /eyelids Overall: conjunctiva clear 01/20/2016 None Full Exam - General 1994 Eyes conjunctiva /eyelids Overall: cornea clear 01/20/2016 None Full Exam - General 1994 Eyes conjunctiva /eyelids Overall: eyelids normal 01/20/2016 None Full Exam - General 1994 Ears/Nose/Throat otoscopic exam Overall: external auditory canals clear 01/20/2016 None Full Exam - General 1994 Ears/Nose/Throat otoscopic exam Overall: tympanic membranes clear 01/20/2016 None Full Exam - General 1994 Ears/Nose/Throat oral cavity/pharynx/larynx Overall: oral mucosa clear 01/20/2016 None Full Exam - General 1994 Ears/Nose/Throat oral cavity/pharynx/larynx Overall: oropharyngeal mucosa clear 01/20/2016 None Full Exam - General 1994 Ears/Nose/Throat oral cavity/pharynx/larynx Overall: no masses 01/20/2016 None Full Exam - General 1994 Respiratory auscultation Overall: breath sounds clear bilaterally 01/20/2016 None Full Exam - General 1994 Respiratory respiratory effort/rhythm Overall: no retractions 01/20/2016 None Full Exam - General 1994 Respiratory respiratory effort/rhythm Overall: normal rate 01/20/2016 None Full Exam - General 1994 Cardiovascular extremities Edema present: pitting 01/20/2016 None Full Exam - General 1994 Cardiovascular extremities Edema present: severity 1+ - 4 +: 2+ 01/20/2016 None Full Exam - General 1994 Cardiovascular auscultation of heart Overall: regular rate 01/20/2016 None Full Exam - General 1994 Cardiovascular auscultation of heart Overall: normal heart sounds 01/20/2016 None Full Exam - General 1994 Abdomen abdominal exam Overall: no tenderness 01/20/2016 None Full Exam - General 1994 Abdomen abdominal exam Overall: normal bowel sounds 01/20/2016 None Full Exam - General 1994 Musculoskeletal spine, ribs and pelvis Posture: lordosis 01/20/2016 None Full Exam - General 1994 Neurologic gait Conventional walking: wide-based 01/20/2016 None Full Exam - General 1994 Neurologic cranial nerves Overall: crainial nerves 2 - 12 grossly intact 01/20/2016 None Full Exam - General 1994 Psychiatric orientation/consciousness Overall: oriented to person, place and time 01/20/2016 None Full Exam - General 1994 Psychiatric mood and affect Overall: normal mood and affect 01/20/2016 None Full Exam - General 1994 Musculoskeletal spine, ribs and pelvis Sacroiliac joints: tender right sacroiliac joint 01/20/2016 None Full Exam - General 1994 Constitutional general appearance Overall: well developed 12/16/2015 None Full Exam - General 1994 Constitutional general appearance Overall: in no acute distress 12/16/2015 None Full Exam - General 1994 Constitutional general appearance Overall: well nourished 12/16/2015 None Full Exam - General 1994 Eyes conjunctiva /eyelids Overall: conjunctiva clear 12/16/2015 None Full Exam - General 1994 Eyes conjunctiva /eyelids Overall: cornea clear 12/16/2015 None Full Exam - General 1994 Eyes conjunctiva /eyelids Overall: eyelids normal 12/16/2015 None Full Exam - General 1994 Ears/Nose/Throat otoscopic exam Overall: external auditory canals clear 12/16/2015 None Full Exam - General 1994 Ears/Nose/Throat otoscopic exam Overall: tympanic membranes clear 12/16/2015 None Full Exam - General 1994 Ears/Nose/Throat oral cavity/pharynx/larynx Overall: oral mucosa clear 12/16/2015 None Full Exam - General 1994 Ears/Nose/Throat oral cavity/pharynx/larynx Overall: oropharyngeal mucosa clear 12/16/2015 None Full Exam - General 1994 Ears/Nose/Throat oral cavity/pharynx/larynx Overall: no masses 12/16/2015 None Full Exam - General 1994 Respiratory auscultation Overall: breath sounds clear bilaterally 12/16/2015 None Full Exam - General 1994 Respiratory respiratory effort/rhythm Overall: no retractions 12/16/2015 None Full Exam - General 1994 Respiratory respiratory effort/rhythm Overall: normal rate 12/16/2015 None Full Exam - General 1994 Cardiovascular extremities Edema present: pitting 12/16/2015 None Full Exam - General 1994 Cardiovascular extremities Edema present: severity 1+ - 4 +: 2+ 12/16/2015 None Full Exam - General 1994 Cardiovascular auscultation of heart Overall: regular rate 12/16/2015 None Full Exam - General 1994 Cardiovascular auscultation of heart Overall: normal heart sounds 12/16/2015 None Full Exam - General 1994 Abdomen abdominal exam Overall: no tenderness 12/16/2015 None Full Exam - General 1994 Abdomen abdominal exam Overall: normal bowel sounds 12/16/2015 None Full Exam - General 1994 Musculoskeletal spine, ribs and pelvis Posture: lordosis 12/16/2015 None Full Exam - General 1994 Neurologic gait Conventional walking: wide-based 12/16/2015 None Full Exam - General 1994 Neurologic cranial nerves Overall: crainial nerves 2 - 12 grossly intact 12/16/2015 None Full Exam - General 1994 Psychiatric orientation/consciousness Overall: oriented to person, place and time 12/16/2015 None Full Exam - General 1994 Psychiatric mood and affect Overall: normal mood and affect 12/16/2015 None Full Exam - General 1994 Constitutional general appearance Overall: well developed 12/09/2015 None Full Exam - General 1994 Constitutional general appearance Overall: in no acute distress 12/09/2015 None Full Exam - General 1994 Constitutional general appearance Overall: well nourished 12/09/2015 None Full Exam - General 1994 Eyes conjunctiva /eyelids Overall: conjunctiva clear 12/09/2015 None Full Exam - General 1994 Eyes conjunctiva /eyelids Overall: cornea clear 12/09/2015 None Full Exam - General 1994 Eyes conjunctiva /eyelids Overall: eyelids normal 12/09/2015 None Full Exam - General 1994 Ears/Nose/Throat otoscopic exam Overall: external auditory canals clear 12/09/2015 None Full Exam - General 1994 Ears/Nose/Throat otoscopic exam Overall: tympanic membranes clear 12/09/2015 None Full Exam - General 1994 Ears/Nose/Throat oral cavity/pharynx/larynx Overall: oral mucosa clear 12/09/2015 None Full Exam - General 1994 Ears/Nose/Throat oral cavity/pharynx/larynx Overall: oropharyngeal mucosa clear 12/09/2015 None Full Exam - General 1994 Ears/Nose/Throat oral cavity/pharynx/larynx Overall: no masses 12/09/2015 None Full Exam - General 1994 Respiratory auscultation Overall: breath sounds clear bilaterally 12/09/2015 None Full Exam - General 1994 Respiratory respiratory effort/rhythm Overall: no retractions 12/09/2015 None Full Exam - General 1994 Respiratory respiratory effort/rhythm Overall: normal rate 12/09/2015 None Full Exam - General 1994 Cardiovascular extremities Edema present: pitting 12/09/2015 None Full Exam - General 1994 Cardiovascular extremities Edema present: severity 1+ - 4 +: 2+ 12/09/2015 None Full Exam - General 1994 Cardiovascular auscultation of heart Overall: regular rate 12/09/2015 None Full Exam - General 1994 Cardiovascular auscultation of heart Overall: normal heart sounds 12/09/2015 None Full Exam - General 1994 Abdomen abdominal exam Overall: no tenderness 12/09/2015 None Full Exam - General 1994 Abdomen abdominal exam Overall: normal bowel sounds 12/09/2015 None Full Exam - General 1994 Musculoskeletal spine, ribs and pelvis Posture: lordosis 12/09/2015 None Full Exam - General 1994 Neurologic gait Conventional walking: wide-based 12/09/2015 None Full Exam - General 1994 Neurologic cranial nerves Overall: crainial nerves 2 - 12 grossly intact 12/09/2015 None Full Exam - General 1994 Psychiatric orientation/consciousness Overall: oriented to person, place and time 12/09/2015 None Full Exam - General 1994 Psychiatric mood and affect Overall: normal mood and affect 12/09/2015 None Full Exam - General 1994 Constitutional general appearance Overall: well developed 11/25/2015 None Full Exam - General 1994 Constitutional general appearance Overall: in no acute distress 11/25/2015 None Full Exam - General 1994 Constitutional general appearance Overall: well nourished 11/25/2015 None Full Exam - General 1994 Eyes conjunctiva /eyelids Overall: conjunctiva clear 11/25/2015 None Full Exam - General 1994 Eyes conjunctiva /eyelids Overall: cornea clear 11/25/2015 None Full Exam - General 1994 Eyes conjunctiva /eyelids Overall: eyelids normal 11/25/2015 None Full Exam - General 1994 Ears/Nose/Throat otoscopic exam Overall: external auditory canals clear 11/25/2015 None Full Exam - General 1994 Ears/Nose/Throat otoscopic exam Overall: tympanic membranes clear 11/25/2015 None Full Exam - General 1994 Ears/Nose/Throat oral cavity/pharynx/larynx Overall: oral mucosa clear 11/25/2015 None Full Exam - General 1994 Ears/Nose/Throat oral cavity/pharynx/larynx Overall: oropharyngeal mucosa clear 11/25/2015 None Full Exam - General 1994 Ears/Nose/Throat oral cavity/pharynx/larynx Overall: no masses 11/25/2015 None Full Exam - General 1994 Respiratory auscultation Overall: breath sounds clear bilaterally 11/25/2015 None Full Exam - General 1994 Respiratory respiratory effort/rhythm Overall: no retractions 11/25/2015 None Full Exam - General 1994 Respiratory respiratory effort/rhythm Overall: normal rate 11/25/2015 None Full Exam - General 1994 Cardiovascular extremities Edema present: pitting 11/25/2015 None Full Exam - General 1994 Cardiovascular auscultation of heart Overall: regular rate 11/25/2015 None Full Exam - General 1994 Cardiovascular auscultation of heart Overall: normal heart sounds 11/25/2015 None Full Exam - General 1994 Abdomen abdominal exam Overall: no tenderness 11/25/2015 None Full Exam - General 1994 Abdomen abdominal exam Overall: normal bowel sounds 11/25/2015 None Full Exam - General 1994 Musculoskeletal spine, ribs and pelvis Posture: lordosis 11/25/2015 None Full Exam - General 1994 Neurologic gait Conventional walking: wide-based 11/25/2015 None Full Exam - General 1994 Neurologic cranial nerves Overall: crainial nerves 2 - 12 grossly intact 11/25/2015 None Full Exam - General 1994 Psychiatric orientation/consciousness Overall: oriented to person, place and time 11/25/2015 None Full Exam - General 1994 Psychiatric mood and affect Overall: normal mood and affect 11/25/2015 None Full Exam - General 1994 Psychiatric mood and affect Mood: happy 11/25/2015 None Full Exam - General 1994 Cardiovascular extremities Edema present: severity 1+ - 4 +: 2+ 11/25/2015 None Full Exam - General 1994 Constitutional general appearance Overall: well developed 09/02/2015 None Full Exam - General 1994 Constitutional general appearance Overall: in no acute distress 09/02/2015 None Full Exam - General 1994 Constitutional general appearance Overall: well nourished 09/02/2015 None Full Exam - General 1994 Ears/Nose/Throat otoscopic exam Overall: external auditory canals clear 09/02/2015 None Full Exam - General 1994 Ears/Nose/Throat otoscopic exam Overall: tympanic membranes clear 09/02/2015 None Full Exam - General 1994 Ears/Nose/Throat oral cavity/pharynx/larynx Overall: oral mucosa clear 09/02/2015 None Full Exam - General 1994 Ears/Nose/Throat oral cavity/pharynx/larynx Overall: oropharyngeal mucosa clear 09/02/2015 None Full Exam - General 1994 Ears/Nose/Throat oral cavity/pharynx/larynx Overall: no masses 09/02/2015 None Full Exam - General 1994 Respiratory auscultation Overall: breath sounds clear bilaterally 09/02/2015 None Full Exam - General 1994 Respiratory respiratory effort/rhythm Overall: no retractions 09/02/2015 None Full Exam - General 1994 Respiratory respiratory effort/rhythm Overall: normal rate 09/02/2015 None Full Exam - General 1994 Cardiovascular extremities Edema present: pitting 09/02/2015 None Full Exam - General 1994 Cardiovascular auscultation of heart Overall: regular rate 09/02/2015 None Full Exam - General 1994 Cardiovascular auscultation of heart Overall: normal heart sounds 09/02/2015 None Full Exam - General 1994 Abdomen abdominal exam Overall: no tenderness 09/02/2015 None Full Exam - General 1994 Abdomen abdominal exam Overall: normal bowel sounds 09/02/2015 None Full Exam - General 1994 Musculoskeletal spine, ribs and pelvis Posture: lordosis 09/02/2015 None Full Exam - General 1994 Neurologic gait Conventional walking: wide-based 09/02/2015 None Full Exam - General 1994 Neurologic cranial nerves Overall: crainial nerves 2 - 12 grossly intact 09/02/2015 None Full Exam - General 1994 Psychiatric orientation/consciousness Overall: oriented to person, place and time 09/02/2015 None Full Exam - General 1994 Psychiatric mood and affect Overall: normal mood and affect 09/02/2015 None Full Exam - General 1994 Psychiatric mood and affect Mood: happy 09/02/2015 None Full Exam - General 1994 Eyes conjunctiva /eyelids Overall: conjunctiva clear 09/02/2015 None Full Exam - General 1994 Eyes conjunctiva /eyelids Overall: cornea clear 09/02/2015 None Full Exam - General 1994 Eyes conjunctiva /eyelids Overall: eyelids normal 09/02/2015 None Full Exam - General 1994 Cardiovascular extremities Edema present: severity 1+ - 4 +: 1+ 09/02/2015 None Full Exam - General 1994 Constitutional general appearance Overall: well developed 08/05/2015 None Full Exam - General 1994 Constitutional general appearance Overall: in no acute distress 08/05/2015 None Full Exam - General 1994 Constitutional general appearance Overall: well nourished 08/05/2015 None Full Exam - General 1994 Eyes pupils and irises Overall: pupils equal, round, reactive to light and accomodation 08/05/2015 None Full Exam - General 1994 Ears/Nose/Throat otoscopic exam Overall: external auditory canals clear 08/05/2015 None Full Exam - General 1994 Ears/Nose/Throat otoscopic exam Overall: tympanic membranes clear 08/05/2015 None Full Exam - General 1994 Ears/Nose/Throat oral cavity/pharynx/larynx Overall: oral mucosa clear 08/05/2015 None Full Exam - General 1994 Ears/Nose/Throat oral cavity/pharynx/larynx Overall: oropharyngeal mucosa clear 08/05/2015 None Full Exam - General 1994 Ears/Nose/Throat oral cavity/pharynx/larynx Overall: no masses 08/05/2015 None Full Exam - General 1994 Respiratory auscultation Overall: breath sounds clear bilaterally 08/05/2015 None Full Exam - General 1994 Respiratory respiratory effort/rhythm Overall: no retractions 08/05/2015 None Full Exam - General 1994 Respiratory respiratory effort/rhythm Overall: normal rate 08/05/2015 None Full Exam - General 1994 Cardiovascular extremities Edema present: pitting 08/05/2015 None Full Exam - General 1994 Cardiovascular extremities Edema present: severity 1+ - 4 +: _ 08/05/2015 2+ Full Exam - General 1994 Cardiovascular auscultation of heart Overall: regular rate 08/05/2015 None Full Exam - General 1994 Cardiovascular auscultation of heart Overall: normal heart sounds 08/05/2015 None Full Exam - General 1994 Abdomen abdominal exam Overall: no tenderness 08/05/2015 None Full Exam - General 1994 Abdomen abdominal exam Overall: normal bowel sounds 08/05/2015 None Full Exam - General 1994 Musculoskeletal spine, ribs and pelvis Posture: lordosis 08/05/2015 None Full Exam - General 1994 Integument inspection of skin Location: right leg 08/05/2015 None Full Exam - General 1994 Integument inspection of skin Rash/Lesions: bulla 08/05/2015 with 2 small ulcerations -- Improved Full Exam - General 1994 Integument inspection of skin Pigmentation: erythematous 08/05/2015 None Full Exam - General 1994 Integument inspection of skin Consistency: moist 08/05/2015 None Full Exam - General 1994 Neurologic gait Conventional walking: wide-based 08/05/2015 None Full Exam - General 1994 Neurologic cranial nerves Overall: crainial nerves 2 - 12 grossly intact 08/05/2015 None Full Exam - General 1994 Psychiatric orientation/consciousness Overall: oriented to person, place and time 08/05/2015 None Full Exam - General 1994 Psychiatric mood and affect Overall: normal mood and affect 08/05/2015 None Full Exam - General 1994 Psychiatric mood and affect Mood: happy 08/05/2015 None Full Exam - General 1994 Constitutional general appearance Overall: well developed 07/25/2015 None Full Exam - General 1994 Constitutional general appearance Overall: in no acute distress 07/25/2015 None Full Exam - General 1994 Constitutional general appearance Overall: well nourished 07/25/2015 None Full Exam - General 1994 Eyes pupils and irises Overall: pupils equal, round, reactive to light and accomodation 07/25/2015 None Full Exam - General 1994 Ears/Nose/Throat otoscopic exam Overall: external auditory canals clear 07/25/2015 None Full Exam - General 1994 Ears/Nose/Throat otoscopic exam Overall: tympanic membranes clear 07/25/2015 None Full Exam - General 1994 Ears/Nose/Throat oral cavity/pharynx/larynx Overall: oral mucosa clear 07/25/2015 None Full Exam - General 1994 Ears/Nose/Throat oral cavity/pharynx/larynx Overall: oropharyngeal mucosa clear 07/25/2015 None Full Exam - General 1994 Ears/Nose/Throat oral cavity/pharynx/larynx Overall: no masses 07/25/2015 None Full Exam - General 1994 Respiratory auscultation Overall: breath sounds clear bilaterally 07/25/2015 None Full Exam - General 1994 Respiratory respiratory effort/rhythm Overall: no retractions 07/25/2015 None Full Exam - General 1994 Respiratory respiratory effort/rhythm Overall: normal rate 07/25/2015 None Full Exam - General 1994 Cardiovascular auscultation of heart Overall: regular rate 07/25/2015 None Full Exam - General 1994 Cardiovascular auscultation of heart Overall: normal heart sounds 07/25/2015 None Full Exam - General 1994 Abdomen abdominal exam Overall: no tenderness 07/25/2015 None Full Exam - General 1994 Abdomen abdominal exam Overall: normal bowel sounds 07/25/2015 None Full Exam - General 1994 Musculoskeletal spine, ribs and pelvis Posture: lordosis 07/25/2015 None Full Exam - General 1994 Integument inspection of skin Location: right leg 07/25/2015 None Full Exam - General 1994 Integument inspection of skin Rash/Lesions: bulla 07/25/2015 with 2 small ulcerations Full Exam - General 1994 Integument inspection of skin Pigmentation: erythematous 07/25/2015 None Full Exam - General 1994 Integument inspection of skin Consistency: moist 07/25/2015 None Full Exam - General 1994 Neurologic gait Conventional walking: wide-based 07/25/2015 None Full Exam - General 1994 Neurologic cranial nerves Overall: crainial nerves 2 - 12 grossly intact 07/25/2015 None Full Exam - General 1994 Psychiatric orientation/consciousness Overall: oriented to person, place and time 07/25/2015 None Full Exam - General 1994 Psychiatric mood and affect Overall: normal mood and affect 07/25/2015 None Full Exam - General 1994 Psychiatric mood and affect Mood: happy 07/25/2015 None Full Exam - General 1994 Cardiovascular extremities Edema present: severity 1+ - 4 +: _ 07/25/2015 2+ Full Exam - General 1994 Cardiovascular extremities Edema present: pitting 07/25/2015 None Full Exam - General 1994 Constitutional general appearance Overall: well developed 06/03/2015 None Full Exam - General 1994 Constitutional general appearance Overall: in no acute distress 06/03/2015 None Full Exam - General 1994 Constitutional general appearance Overall: well nourished 06/03/2015 None Full Exam - General 1994 Eyes pupils and irises Overall: pupils equal, round, reactive to light and accomodation 06/03/2015 None Full Exam - General 1994 Ears/Nose/Throat otoscopic exam Overall: external auditory canals clear 06/03/2015 None Full Exam - General 1994 Ears/Nose/Throat otoscopic exam Overall: tympanic membranes clear 06/03/2015 None Full Exam - General 1994 Ears/Nose/Throat oral cavity/pharynx/larynx Overall: oral mucosa clear 06/03/2015 None Full Exam - General 1994 Ears/Nose/Throat oral cavity/pharynx/larynx Overall: oropharyngeal mucosa clear 06/03/2015 None Full Exam - General 1994 Ears/Nose/Throat oral cavity/pharynx/larynx Overall: no masses 06/03/2015 None Full Exam - General 1994 Respiratory auscultation Overall: breath sounds clear bilaterally 06/03/2015 None Full Exam - General 1994 Respiratory respiratory effort/rhythm Overall: no retractions 06/03/2015 None Full Exam - General 1994 Respiratory respiratory effort/rhythm Overall: normal rate 06/03/2015 None Full Exam - General 1994 Cardiovascular auscultation of heart Overall: regular rate 06/03/2015 None Full Exam - General 1994 Cardiovascular auscultation of heart Overall: normal heart sounds 06/03/2015 None Full Exam - General 1994 Cardiovascular auscultation of heart Overall: no murmurs 06/03/2015 None Full Exam - General 1994 Abdomen abdominal exam Overall: no tenderness 06/03/2015 None Full Exam - General 1994 Abdomen abdominal exam Overall: normal bowel sounds 06/03/2015 None Full Exam - General 1994 Musculoskeletal spine, ribs and pelvis Posture: lordosis 06/03/2015 None Full Exam - General 1994 Neurologic gait Conventional walking: wide-based 06/03/2015 None Full Exam - General 1994 Neurologic cranial nerves Overall: crainial nerves 2 - 12 grossly intact 06/03/2015 None Full Exam - General 1994 Psychiatric orientation/consciousness Overall: oriented to person, place and time 06/03/2015 None Full Exam - General 1994 Psychiatric mood and affect Overall: normal mood and affect 06/03/2015 None Full Exam - General 1994 Psychiatric mood and affect Mood: happy 06/03/2015 None Full Exam - General 1994 Lymphatic neck nodes Overall: anterior cervical chain benign 06/03/2015 None Full Exam - General 1994 Lymphatic neck nodes Overall: posterior cervical chain benign 06/03/2015 None Full Exam - General 1994 Cardiovascular extremities Edema present: pitting 06/03/2015 None Full Exam - General 1994 Cardiovascular extremities Edema present: severity 1+ - 4 +: 1+ 06/03/2015 None Full Exam - General 1994 Constitutional general appearance Overall: well developed 03/19/2015 None Full Exam - General 1994 Constitutional general appearance Overall: in no acute distress 03/19/2015 None Full Exam - General 1994 Constitutional general appearance Overall: well nourished 03/19/2015 None Full Exam - General 1994 Eyes pupils and irises Overall: pupils equal, round, reactive to light and accomodation 03/19/2015 None Full Exam - General 1994 Ears/Nose/Throat otoscopic exam Overall: external auditory canals clear 03/19/2015 None Full Exam - General 1994 Ears/Nose/Throat otoscopic exam Overall: tympanic membranes clear 03/19/2015 None Full Exam - General 1994 Ears/Nose/Throat oral cavity/pharynx/larynx Overall: oral mucosa clear 03/19/2015 None Full Exam - General 1994 Ears/Nose/Throat oral cavity/pharynx/larynx Overall: oropharyngeal mucosa clear 03/19/2015 None Full Exam - General 1994 Ears/Nose/Throat oral cavity/pharynx/larynx Overall: no masses 03/19/2015 None Full Exam - General 1994 Respiratory auscultation Overall: breath sounds clear bilaterally 03/19/2015 None Full Exam - General 1994 Respiratory respiratory effort/rhythm Overall: no retractions 03/19/2015 None Full Exam - General 1994 Respiratory respiratory effort/rhythm Overall: normal rate 03/19/2015 None Full Exam - General 1994 Cardiovascular auscultation of heart Overall: regular rate 03/19/2015 None Full Exam - General 1994 Cardiovascular auscultation of heart Overall: normal heart sounds 03/19/2015 None Full Exam - General 1994 Abdomen abdominal exam Overall: no tenderness 03/19/2015 None Full Exam - General 1994 Abdomen abdominal exam Overall: normal bowel sounds 03/19/2015 None Full Exam - General 1994 Musculoskeletal spine, ribs and pelvis Posture: lordosis 03/19/2015 None Full Exam - General 1994 Neurologic gait Conventional walking: wide-based 03/19/2015 None Full Exam - General 1994 Neurologic cranial nerves Overall: crainial nerves 2 - 12 grossly intact 03/19/2015 None Full Exam - General 1994 Psychiatric orientation/consciousness Overall: oriented to person, place and time 03/19/2015 None Full Exam - General 1994 Psychiatric mood and affect Overall: normal mood and affect 03/19/2015 None Full Exam - General 1994 Psychiatric mood and affect Mood: happy 03/19/2015 None Full Exam - General 1994 Integument inspection of skin Location: chest 03/19/2015 left anterior chest, under breast Full Exam - General 1994 Integument inspection of skin Pigmentation: erythematous 03/19/2015 None Full Exam - General 1994 Integument inspection of skin Consistency: indurated 03/19/2015 None Full Exam - General 1994 Integument inspection of skin Dermatitis: pustule 03/19/2015 /cyst Full Exam - General 1994 Constitutional general appearance Overall: well developed 03/04/2015 None Full Exam - General 1994 Constitutional general appearance Overall: in no acute distress 03/04/2015 None Full Exam - General 1994 Constitutional general appearance Overall: well nourished 03/04/2015 None Full Exam - General 1994 Eyes pupils and irises Overall: pupils equal, round, reactive to light and accomodation 03/04/2015 None Full Exam - General 1994 Ears/Nose/Throat otoscopic exam Overall: external auditory canals clear 03/04/2015 None Full Exam - General 1994 Ears/Nose/Throat otoscopic exam Overall: tympanic membranes clear 03/04/2015 None Full Exam - General 1994 Ears/Nose/Throat oral cavity/pharynx/larynx Overall: oral mucosa clear 03/04/2015 None Full Exam - General 1994 Ears/Nose/Throat oral cavity/pharynx/larynx Overall: oropharyngeal mucosa clear 03/04/2015 None Full Exam - General 1994 Ears/Nose/Throat oral cavity/pharynx/larynx Overall: no masses 03/04/2015 None Full Exam - General 1994 Respiratory auscultation Overall: breath sounds clear bilaterally 03/04/2015 None Full Exam - General 1994 Respiratory respiratory effort/rhythm Overall: no retractions 03/04/2015 None Full Exam - General 1994 Respiratory respiratory effort/rhythm Overall: normal rate 03/04/2015 None Full Exam - General 1994 Cardiovascular auscultation of heart Overall: regular rate 03/04/2015 None Full Exam - General 1994 Cardiovascular auscultation of heart Overall: normal heart sounds 03/04/2015 None Full Exam - General 1994 Abdomen abdominal exam Overall: no tenderness 03/04/2015 None Full Exam - General 1994 Abdomen abdominal exam Overall: normal bowel sounds 03/04/2015 None Full Exam - General 1994 Musculoskeletal spine, ribs and pelvis Posture: lordosis 03/04/2015 None Full Exam - General 1994 Integument inspection of skin Location: right leg 03/04/2015 --Improved Full Exam - General 1994 Integument inspection of skin Rash/Lesions: bulla 03/04/2015 small, next to area where a larger blister has opened. --Resolved, small scab noted, no redness Full Exam - General 1994 Integument inspection of skin Pigmentation: erythematous 03/04/2015 --Resolved Full Exam - General 1994 Neurologic gait Conventional walking: wide-based 03/04/2015 None Full Exam - General 1994 Neurologic cranial nerves Overall: crainial nerves 2 - 12 grossly intact 03/04/2015 None Full Exam - General 1994 Psychiatric orientation/consciousness Overall: oriented to person, place and time 03/04/2015 None Full Exam - General 1994 Psychiatric mood and affect Overall: normal mood and affect 03/04/2015 None Full Exam - General 1994 Psychiatric mood and affect Mood: happy 03/04/2015 None Full Exam - General 1994 Cardiovascular extremities Edema present: pitting 03/04/2015 None Full Exam - General 1994 Cardiovascular extremities Edema present: severity 1+ - 4 +: 1+ 03/04/2015 None Full Exam - General 1994 Cardiovascular extremities Edema present: bilateral 03/04/2015 None Full Exam - General 1994 Cardiovascular extremities Edema present: to knees 03/04/2015 None Full Exam - General 1994 Constitutional general appearance Overall: well developed 02/20/2015 None Full Exam - General 1994 Constitutional general appearance Overall: in no acute distress 02/20/2015 None Full Exam - General 1994 Constitutional general appearance Overall: well nourished 02/20/2015 None Full Exam - General 1994 Eyes pupils and irises Overall: pupils equal, round, reactive to light and accomodation 02/20/2015 None Full Exam - General 1994 Ears/Nose/Throat otoscopic exam Overall: external auditory canals clear 02/20/2015 None Full Exam - General 1994 Ears/Nose/Throat otoscopic exam Overall: tympanic membranes clear 02/20/2015 None Full Exam - General 1994 Ears/Nose/Throat oral cavity/pharynx/larynx Overall: oral mucosa clear 02/20/2015 None Full Exam - General 1994 Ears/Nose/Throat oral cavity/pharynx/larynx Overall: oropharyngeal mucosa clear 02/20/2015 None Full Exam - General 1994 Ears/Nose/Throat oral cavity/pharynx/larynx Overall: no masses 02/20/2015 None Full Exam - General 1994 Respiratory auscultation Overall: breath sounds clear bilaterally 02/20/2015 None Full Exam - General 1994 Respiratory respiratory effort/rhythm Overall: no retractions 02/20/2015 None Full Exam - General 1994 Respiratory respiratory effort/rhythm Overall: normal rate 02/20/2015 None Full Exam - General 1994 Cardiovascular auscultation of heart Overall: normal heart sounds 02/20/2015 None Full Exam - General 1994 Abdomen abdominal exam Overall: no tenderness 02/20/2015 None Full Exam - General 1994 Abdomen abdominal exam Overall: normal bowel sounds 02/20/2015 None Full Exam - General 1994 Musculoskeletal spine, ribs and pelvis Posture: lordosis 02/20/2015 None Full Exam - General 1994 Neurologic gait Conventional walking: wide-based 02/20/2015 None Full Exam - General 1994 Neurologic cranial nerves Overall: crainial nerves 2 - 12 grossly intact 02/20/2015 None Full Exam - General 1994 Psychiatric orientation/consciousness Overall: oriented to person, place and time 02/20/2015 None Full Exam - General 1994 Psychiatric mood and affect Overall: normal mood and affect 02/20/2015 None Full Exam - General 1994 Psychiatric mood and affect Mood: happy 02/20/2015 None Full Exam - General 1994 Cardiovascular auscultation of heart Overall: regular rate 02/20/2015 None Full Exam - General 1994 Integument inspection of skin Location: right leg 02/20/2015 None Full Exam - General 1994 Integument inspection of skin Rash/Lesions: bulla 02/20/2015 small, next to area where a larger blister has opened. Full Exam - General 1994 Integument inspection of skin Pigmentation: erythematous 02/20/2015 None Full Exam - General 1994 Integument inspection of skin Consistency: moist 02/20/2015 None Full Exam - General 1994 Constitutional general appearance Overall: well developed 02/11/2015 None Full Exam - General 1994 Constitutional general appearance Overall: in no acute distress 02/11/2015 None Full Exam - General 1994 Constitutional general appearance Overall: well nourished 02/11/2015 None Full Exam - General 1994 Eyes pupils and irises Overall: pupils equal, round, reactive to light and accomodation 02/11/2015 None Full Exam - General 1994 Ears/Nose/Throat otoscopic exam Overall: external auditory canals clear 02/11/2015 None Full Exam - General 1994 Ears/Nose/Throat otoscopic exam Overall: tympanic membranes clear 02/11/2015 None Full Exam - General 1994 Ears/Nose/Throat oral cavity/pharynx/larynx Overall: oral mucosa clear 02/11/2015 None Full Exam - General 1994 Ears/Nose/Throat oral cavity/pharynx/larynx Overall: oropharyngeal mucosa clear 02/11/2015 None Full Exam - General 1994 Ears/Nose/Throat oral cavity/pharynx/larynx Overall: no masses 02/11/2015 None Full Exam - General 1994 Respiratory auscultation Overall: breath sounds clear bilaterally 02/11/2015 None Full Exam - General 1994 Respiratory respiratory effort/rhythm Overall: no retractions 02/11/2015 None Full Exam - General 1994 Respiratory respiratory effort/rhythm Overall: normal rate 02/11/2015 None Full Exam - General 1994 Cardiovascular auscultation of heart Overall: regular rate 02/11/2015 2-3+ Full Exam - General 1994 Cardiovascular auscultation of heart Overall: normal heart sounds 02/11/2015 None Full Exam - General 1994 Cardiovascular auscultation of heart Overall: no murmurs 02/11/2015 None Full Exam - General 1994 Abdomen abdominal exam Overall: no tenderness 02/11/2015 None Full Exam - General 1994 Abdomen abdominal exam Overall: normal bowel sounds 02/11/2015 None Full Exam - General 1994 Musculoskeletal spine, ribs and pelvis Posture: lordosis 02/11/2015 None Full Exam - General 1994 Neurologic gait Conventional walking: wide-based 02/11/2015 None Full Exam - General 1994 Neurologic cranial nerves Overall: crainial nerves 2 - 12 grossly intact 02/11/2015 None Full Exam - General 1994 Psychiatric orientation/consciousness Overall: oriented to person, place and time 02/11/2015 None Full Exam - General 1994 Psychiatric mood and affect Overall: normal mood and affect 02/11/2015 None Full Exam - General 1994 Psychiatric mood and affect Mood: happy 02/11/2015 None Full Exam - General 1994 Constitutional general appearance Overall: well developed 01/28/2015 None Full Exam - General 1994 Constitutional general appearance Overall: in no acute distress 01/28/2015 None Full Exam - General 1994 Constitutional general appearance Overall: well nourished 01/28/2015 None Full Exam - General 1994 Eyes pupils and irises Overall: pupils equal, round, reactive to light and accomodation 01/28/2015 None Full Exam - General 1994 Ears/Nose/Throat otoscopic exam Overall: external auditory canals clear 01/28/2015 None Full Exam - General 1994 Ears/Nose/Throat otoscopic exam Overall: tympanic membranes clear 01/28/2015 None Full Exam - General 1994 Ears/Nose/Throat oral cavity/pharynx/larynx Overall: oral mucosa clear 01/28/2015 None Full Exam - General 1994 Ears/Nose/Throat oral cavity/pharynx/larynx Overall: oropharyngeal mucosa clear 01/28/2015 None Full Exam - General 1994 Ears/Nose/Throat oral cavity/pharynx/larynx Overall: no masses 01/28/2015 None Full Exam - General 1994 Respiratory auscultation Overall: breath sounds clear bilaterally 01/28/2015 None Full Exam - General 1994 Respiratory respiratory effort/rhythm Overall: no retractions 01/28/2015 None Full Exam - General 1994 Respiratory respiratory effort/rhythm Overall: normal rate 01/28/2015 None Full Exam - General 1994 Cardiovascular auscultation of heart Overall: regular rate 01/28/2015 None Full Exam - General 1994 Cardiovascular auscultation of heart Overall: normal heart sounds 01/28/2015 None Full Exam - General 1994 Cardiovascular auscultation of heart Overall: no murmurs 01/28/2015 None Full Exam - General 1994 Abdomen abdominal exam Overall: no tenderness 01/28/2015 None Full Exam - General 1994 Abdomen abdominal exam Overall: normal bowel sounds 01/28/2015 None Full Exam - General 1994 Musculoskeletal spine, ribs and pelvis Posture: lordosis 01/28/2015 None Full Exam - General 1994 Neurologic gait Conventional walking: wide-based 01/28/2015 None Full Exam - General 1994 Neurologic cranial nerves Overall: crainial nerves 2 - 12 grossly intact 01/28/2015 None Full Exam - General 1994 Psychiatric orientation/consciousness Overall: oriented to person, place and time 01/28/2015 None Full Exam - General 1994 Psychiatric mood and affect Overall: normal mood and affect 01/28/2015 None Full Exam - General 1994 Psychiatric mood and affect Mood: happy 01/28/2015 None Full Exam - General 1994 Cardiovascular extremities Edema present: severity 1+ - 4 +: 3-4+ pitting with some weeping of left lower leg 2014 None Full Exam - General 1994 Constitutional general appearance Overall: well developed 10/01/2014 None Full Exam - General 1994 Constitutional general appearance Overall: in no acute distress 10/01/2014 None Full Exam - General 1994 Constitutional general appearance Overall: well nourished 10/01/2014 None Full Exam - General 1994 Eyes pupils and irises Overall: pupils equal, round, reactive to light and accomodation 10/01/2014 None Full Exam - General 1994 Ears/Nose/Throat otoscopic exam Overall: external auditory canals clear 10/01/2014 None Full Exam - General 1994 Ears/Nose/Throat otoscopic exam Overall: tympanic membranes clear 10/01/2014 None Full Exam - General 1994 Ears/Nose/Throat oral cavity/pharynx/larynx Overall: oral mucosa clear 10/01/2014 None Full Exam - General 1994 Ears/Nose/Throat oral cavity/pharynx/larynx Overall: oropharyngeal mucosa clear 10/01/2014 None Full Exam - General 1994 Ears/Nose/Throat oral cavity/pharynx/larynx Overall: no masses 10/01/2014 None Full Exam - General 1994 Respiratory auscultation Overall: breath sounds clear bilaterally 10/01/2014 None Full Exam - General 1994 Respiratory respiratory effort/rhythm Overall: no retractions 10/01/2014 None Full Exam - General 1994 Respiratory respiratory effort/rhythm Overall: normal rate 10/01/2014 None Full Exam - General 1994 Cardiovascular auscultation of heart Overall: regular rate 10/01/2014 None Full Exam - General 1994 Cardiovascular auscultation of heart Overall: normal heart sounds 10/01/2014 None Full Exam - General 1994 Cardiovascular auscultation of heart Overall: no murmurs 10/01/2014 None Full Exam - General 1994 Abdomen abdominal exam Overall: no tenderness 10/01/2014 None Full Exam - General 1994 Abdomen abdominal exam Overall: normal bowel sounds 10/01/2014 None Full Exam - General 1994 Musculoskeletal spine, ribs and pelvis Posture: lordosis 10/01/2014 None Full Exam - General 1994 Neurologic gait Conventional walking: wide-based 10/01/2014 None Full Exam - General 1994 Neurologic cranial nerves Overall: crainial nerves 2 - 12 grossly intact 10/01/2014 None Full Exam - General 1994 Psychiatric orientation/consciousness Overall: oriented to person, place and time 10/01/2014 None Full Exam - General 1994 Psychiatric mood and affect Overall: normal mood and affect 10/01/2014 None Full Exam - General 1994 Psychiatric mood and affect Mood: happy 10/01/2014 None Full Exam - General 1994 Constitutional general appearance Overall: well developed 05/30/2014 None Full Exam - General 1994 Constitutional general appearance Overall: in no acute distress 05/30/2014 None Full Exam - General 1994 Constitutional general appearance Overall: well nourished 05/30/2014 None Full Exam - General 1994 Eyes pupils and irises Overall: pupils equal, round, reactive to light and accomodation 05/30/2014 None Full Exam - General 1994 Ears/Nose/Throat otoscopic exam Overall: external auditory canals clear 05/30/2014 None Full Exam - General 1994 Ears/Nose/Throat otoscopic exam Overall: tympanic membranes clear 05/30/2014 None Full Exam - General 1994 Ears/Nose/Throat oral cavity/pharynx/larynx Overall: oral mucosa clear 05/30/2014 None Full Exam - General 1994 Ears/Nose/Throat oral cavity/pharynx/larynx Overall: oropharyngeal mucosa clear 05/30/2014 None Full Exam - General 1994 Ears/Nose/Throat oral cavity/pharynx/larynx Overall: no masses 05/30/2014 None Full Exam - General 1994 Respiratory auscultation Overall: breath sounds clear bilaterally 05/30/2014 None Full Exam - General 1994 Respiratory respiratory effort/rhythm Overall: no retractions 05/30/2014 None Full Exam - General 1994 Respiratory respiratory effort/rhythm Overall: normal rate 05/30/2014 None Full Exam - General 1994 Cardiovascular auscultation of heart Overall: regular rate 05/30/2014 None Full Exam - General 1994 Cardiovascular auscultation of heart Overall: normal heart sounds 05/30/2014 None Full Exam - General 1994 Cardiovascular auscultation of heart Overall: no murmurs 05/30/2014 None Full Exam - General 1994 Abdomen abdominal exam Overall: no tenderness 05/30/2014 None Full Exam - General 1994 Abdomen abdominal exam Overall: normal bowel sounds 05/30/2014 None Full Exam - General 1994 Musculoskeletal spine, ribs and pelvis Posture: lordosis 05/30/2014 None Full Exam - General 1994 Neurologic gait Conventional walking: wide-based 05/30/2014 None Full Exam - General 1994 Neurologic cranial nerves Overall: crainial nerves 2 - 12 grossly intact 05/30/2014 None Full Exam - General 1994 Psychiatric orientation/consciousness Overall: oriented to person, place and time 05/30/2014 None Full Exam - General 1994 Psychiatric mood and affect Overall: normal mood and affect 05/30/2014 None Full Exam - General 1994 Psychiatric mood and affect Mood: happy 05/30/2014 None Full Exam - General 1994 Constitutional general appearance Overall: well developed 02/28/2014 None Full Exam - General 1994 Constitutional general appearance Overall: in no acute distress 02/28/2014 None Full Exam - General 1994 Constitutional general appearance Overall: well nourished 02/28/2014 None Full Exam - General 1994 Eyes pupils and irises Overall: pupils equal, round, reactive to light and accomodation 02/28/2014 None Full Exam - General 1994 Ears/Nose/Throat otoscopic exam Overall: external auditory canals clear 02/28/2014 None Full Exam - General 1994 Ears/Nose/Throat otoscopic exam Overall: tympanic membranes clear 02/28/2014 None Full Exam - General 1994 Ears/Nose/Throat oral cavity/pharynx/larynx Overall: oral mucosa clear 02/28/2014 None Full Exam - General 1994 Ears/Nose/Throat oral cavity/pharynx/larynx Overall: oropharyngeal mucosa clear 02/28/2014 None Full Exam - General 1994 Ears/Nose/Throat oral cavity/pharynx/larynx Overall: no masses 02/28/2014 None Full Exam - General 1994 Respiratory auscultation Overall: breath sounds clear bilaterally 02/28/2014 None Full Exam - General 1994 Respiratory respiratory effort/rhythm Overall: no retractions 02/28/2014 None Full Exam - General 1994 Respiratory respiratory effort/rhythm Overall: normal rate 02/28/2014 None Full Exam - General 1994 Cardiovascular auscultation of heart Overall: regular rate 02/28/2014 None Full Exam - General 1994 Cardiovascular auscultation of heart Overall: normal heart sounds 02/28/2014 None Full Exam - General 1994 Cardiovascular auscultation of heart Overall: no murmurs 02/28/2014 None Full Exam - General 1994 Abdomen abdominal exam Overall: no tenderness 02/28/2014 None Full Exam - General 1994 Abdomen abdominal exam Overall: normal bowel sounds 02/28/2014 None Full Exam - General 1994 Musculoskeletal spine, ribs and pelvis Posture: lordosis 02/28/2014 None Full Exam - General 1994 Neurologic gait Conventional walking: wide-based 02/28/2014 None Full Exam - General 1994 Neurologic cranial nerves Overall: crainial nerves 2 - 12 grossly intact 02/28/2014 None Full Exam - General 1994 Psychiatric orientation/consciousness Overall: oriented to person, place and time 02/28/2014 None Full Exam - General 1994 Psychiatric mood and affect Overall: normal mood and affect 02/28/2014 None Full Exam - General 1994 Psychiatric mood and affect Mood: happy 02/28/2014 None Full Exam - General 1994 Constitutional general appearance Overall: well developed 01/23/2014 None Full Exam - General 1994 Constitutional general appearance Overall: in no acute distress 01/23/2014 None Full Exam - General 1994 Constitutional general appearance Overall: well nourished 01/23/2014 None Full Exam - General 1994 Eyes pupils and irises Overall: pupils equal, round, reactive to light and accomodation 01/23/2014 None Full Exam - General 1994 Respiratory auscultation Overall: breath sounds clear bilaterally 01/23/2014 None Full Exam - General 1994 Respiratory respiratory effort/rhythm Overall: no retractions 01/23/2014 None Full Exam - General 1994 Respiratory respiratory effort/rhythm Overall: normal rate 01/23/2014 None Full Exam - General 1994 Cardiovascular auscultation of heart Overall: regular rate 01/23/2014 None Full Exam - General 1994 Cardiovascular auscultation of heart Overall: normal heart sounds 01/23/2014 None Full Exam - General 1994 Cardiovascular auscultation of heart Overall: no murmurs 01/23/2014 None Full Exam - General 1994 Abdomen abdominal exam Overall: normal bowel sounds 01/23/2014 None Full Exam - General 1994 Musculoskeletal spine, ribs and pelvis Posture: lordosis 01/23/2014 None Full Exam - General 1994 Neurologic gait Conventional walking: wide-based 01/23/2014 None Full Exam - General 1994 Neurologic cranial nerves Overall: crainial nerves 2 - 12 grossly intact 01/23/2014 None Full Exam - General 1994 Psychiatric orientation/consciousness Overall: oriented to person, place and time 01/23/2014 None Full Exam - General 1994 Psychiatric mood and affect Overall: normal mood and affect 01/23/2014 None Full Exam - General 1994 Psychiatric mood and affect Mood: happy 01/23/2014 None Full Exam - General 1994 Abdomen abdominal exam Epigastric: tender to palpation 01/23/2014 None Full Exam - General 1994 Constitutional general appearance Overall: well developed 12/26/2013 None Full Exam - General 1994 Constitutional general appearance Overall: in no acute distress 12/26/2013 None Full Exam - General 1994 Constitutional general appearance Overall: well nourished 12/26/2013 None Full Exam - General 1994 Eyes pupils and irises Overall: pupils equal, round, reactive to light and accomodation 12/26/2013 None Full Exam - General 1994 Ears/Nose/Throat otoscopic exam Overall: external auditory canals clear 12/26/2013 None Full Exam - General 1994 Ears/Nose/Throat otoscopic exam Overall: tympanic membranes clear 12/26/2013 None Full Exam - General 1994 Ears/Nose/Throat oral cavity/pharynx/larynx Overall: oral mucosa clear 12/26/2013 None Full Exam - General 1994 Ears/Nose/Throat oral cavity/pharynx/larynx Overall: oropharyngeal mucosa clear 12/26/2013 None Full Exam - General 1994 Ears/Nose/Throat oral cavity/pharynx/larynx Overall: no masses 12/26/2013 None Full Exam - General 1994 Respiratory auscultation Overall: breath sounds clear bilaterally 12/26/2013 None Full Exam - General 1994 Respiratory respiratory effort/rhythm Overall: no retractions 12/26/2013 None Full Exam - General 1994 Respiratory respiratory effort/rhythm Overall: normal rate 12/26/2013 None Full Exam - General 1994 Cardiovascular auscultation of heart Overall: regular rate 12/26/2013 None Full Exam - General 1994 Cardiovascular auscultation of heart Overall: normal heart sounds 12/26/2013 None Full Exam - General 1994 Cardiovascular auscultation of heart Overall: no murmurs 12/26/2013 None Full Exam - General 1994 Abdomen abdominal exam Overall: no tenderness 12/26/2013 None Full Exam - General 1994 Abdomen abdominal exam Overall: normal bowel sounds 12/26/2013 None Full Exam - General 1994 Musculoskeletal spine, ribs and pelvis Posture: lordosis 12/26/2013 None Full Exam - General 1994 Neurologic gait Conventional walking: wide-based 12/26/2013 None Full Exam - General 1994 Neurologic cranial nerves Overall: crainial nerves 2 - 12 grossly intact 12/26/2013 None Full Exam - General 1994 Psychiatric orientation/consciousness Overall: oriented to person, place and time 12/26/2013 None Full Exam - General 1994 Psychiatric mood and affect Overall: normal mood and affect 12/26/2013 None Full Exam - General 1994 Psychiatric mood and affect Mood: happy 12/26/2013 None Full Exam - General 1994 Constitutional general appearance Overall: well developed 10/24/2013 None Full Exam - General 1994 Constitutional general appearance Overall: in no acute distress 10/24/2013 None Full Exam - General 1994 Constitutional general appearance Overall: well nourished 10/24/2013 None Full Exam - General 1994 Integument inspection of skin Location: face 10/24/2013 scabbed lesion to helix of left ear, right ear, left cheek, and right cheek Full Exam - General 1994 Constitutional general appearance Overall: well developed 10/17/2013 None Full Exam - General 1994 Constitutional general appearance Overall: in no acute distress 10/17/2013 None Full Exam - General 1994 Constitutional general appearance Overall: well nourished 10/17/2013 None Full Exam - General 1994 Eyes pupils and irises Overall: pupils equal, round, reactive to light and accomodation 10/17/2013 None Full Exam - General 1994 Ears/Nose/Throat otoscopic exam Overall: external auditory canals clear 10/17/2013 None Full Exam - General 1994 Ears/Nose/Throat otoscopic exam Overall: tympanic membranes clear 10/17/2013 None Full Exam - General 1994 Ears/Nose/Throat oral cavity/pharynx/larynx Overall: oral mucosa clear 10/17/2013 None Full Exam - General 1994 Ears/Nose/Throat oral cavity/pharynx/larynx Overall: oropharyngeal mucosa clear 10/17/2013 None Full Exam - General 1994 Ears/Nose/Throat oral cavity/pharynx/larynx Overall: no masses 10/17/2013 None Full Exam - General 1994 Respiratory auscultation Overall: breath sounds clear bilaterally 10/17/2013 None Full Exam - General 1994 Respiratory respiratory effort/rhythm Overall: no retractions 10/17/2013 None Full Exam - General 1994 Respiratory respiratory effort/rhythm Overall: normal rate 10/17/2013 None Full Exam - General 1994 Cardiovascular auscultation of heart Overall: regular rate 10/17/2013 None Full Exam - General 1994 Cardiovascular auscultation of heart Overall: normal heart sounds 10/17/2013 None Full Exam - General 1994 Cardiovascular auscultation of heart Overall: no murmurs 10/17/2013 None Full Exam - General 1994 Musculoskeletal spine, ribs and pelvis Posture: lordosis 10/17/2013 None Full Exam - General 1994 Neurologic gait Conventional walking: wide-based 10/17/2013 None Full Exam - General 1994 Neurologic cranial nerves Overall: crainial nerves 2 - 12 grossly intact 10/17/2013 None Full Exam - General 1994 Psychiatric orientation/consciousness Overall: oriented to person, place and time 10/17/2013 None Full Exam - General 1994 Psychiatric mood and affect Overall: normal mood and affect 10/17/2013 None Full Exam - General 1994 Psychiatric mood and affect Mood: happy 10/17/2013 None Full Exam - General 1994 Abdomen abdominal exam Overall: no tenderness 10/17/2013 None Full Exam - General 1994 Abdomen abdominal exam Overall: normal bowel sounds 10/17/2013 None Full Exam - General 1994 Ears/Nose/Throat oral cavity/pharynx/larynx Overall: oral mucosa clear 07/24/2013 None Full Exam - General 1994 Ears/Nose/Throat oral cavity/pharynx/larynx Overall: oropharyngeal mucosa clear 07/24/2013 None Full Exam - General 1994 Ears/Nose/Throat oral cavity/pharynx/larynx Overall: no masses 07/24/2013 None Full Exam - General 1994 Respiratory auscultation Overall: breath sounds clear bilaterally 07/24/2013 None Full Exam - General 1994 Respiratory respiratory effort/rhythm Overall: no retractions 07/24/2013 None Full Exam - General 1994 Respiratory respiratory effort/rhythm Overall: normal rate 07/24/2013 None Full Exam - General 1994 Cardiovascular auscultation of heart Overall: regular rate 07/24/2013 None Full Exam - General 1994 Cardiovascular auscultation of heart Overall: normal heart sounds 07/24/2013 None Full Exam - General 1994 Cardiovascular auscultation of heart Overall: no murmurs 07/24/2013 None Full Exam - General 1994 Musculoskeletal spine, ribs and pelvis Posture: lordosis 07/24/2013 None Full Exam - General 1994 Neurologic gait Conventional walking: wide-based 07/24/2013 None Full Exam - General 1994 Neurologic cranial nerves Overall: crainial nerves 2 - 12 grossly intact 07/24/2013 None Full Exam - General 1994 Psychiatric orientation/consciousness Overall: oriented to person, place and time 07/24/2013 None Full Exam - General 1994 Psychiatric mood and affect Overall: normal mood and affect 07/24/2013 None Full Exam - General 1994 Constitutional general appearance Overall: well developed 07/24/2013 None Full Exam - General 1994 Constitutional general appearance Overall: in no acute distress 07/24/2013 None Full Exam - General 1994 Constitutional general appearance Overall: well nourished 07/24/2013 None Full Exam - General 1994 Eyes pupils and irises Overall: pupils equal, round, reactive to light and accomodation 07/24/2013 None Full Exam - General 1994 Ears/Nose/Throat otoscopic exam Overall: external auditory canals clear 07/24/2013 None Full Exam - General 1994 Ears/Nose/Throat otoscopic exam Overall: tympanic membranes clear 07/24/2013 None Full Exam - General 1994 Psychiatric mood and affect Mood: happy 07/24/2013 None Full Exam - General 1994 Constitutional general appearance Overall: well developed 04/24/2013 None Full Exam - General 1994 Constitutional general appearance Overall: in no acute distress 04/24/2013 None Full Exam - General 1994 Constitutional general appearance Overall: well nourished 04/24/2013 None Full Exam - General 1994 Eyes pupils and irises Overall: pupils equal, round, reactive to light and accomodation 04/24/2013 None Full Exam - General 1994 Ears/Nose/Throat otoscopic exam Overall: external auditory canals clear 04/24/2013 None Full Exam - General 1994 Ears/Nose/Throat otoscopic exam Overall: tympanic membranes clear 04/24/2013 None Full Exam - General 1994 Ears/Nose/Throat oral cavity/pharynx/larynx Overall: oral mucosa clear 04/24/2013 None Full Exam - General 1994 Ears/Nose/Throat oral cavity/pharynx/larynx Overall: oropharyngeal mucosa clear 04/24/2013 None Full Exam - General 1994 Ears/Nose/Throat oral cavity/pharynx/larynx Overall: no masses 04/24/2013 None Full Exam - General 1994 Respiratory auscultation Overall: breath sounds clear bilaterally 04/24/2013 None Full Exam - General 1994 Respiratory respiratory effort/rhythm Overall: no retractions 04/24/2013 None Full Exam - General 1994 Respiratory respiratory effort/rhythm Overall: normal rate 04/24/2013 None Full Exam - General 1994 Cardiovascular auscultation of heart Overall: regular rate 04/24/2013 None Full Exam - General 1994 Cardiovascular auscultation of heart Overall: normal heart sounds 04/24/2013 None Full Exam - General 1994 Cardiovascular auscultation of heart Overall: no murmurs 04/24/2013 None Full Exam - General 1994 Musculoskeletal spine, ribs and pelvis Posture: lordosis 04/24/2013 None Full Exam - General 1994 Neurologic gait Conventional walking: wide-based 04/24/2013 None Full Exam - General 1994 Neurologic cranial nerves Overall: crainial nerves 2 - 12 grossly intact 04/24/2013 None Full Exam - General 1994 Psychiatric orientation/consciousness Overall: oriented to person, place and time 04/24/2013 None Full Exam - General 1994 Psychiatric mood and affect Overall: normal mood and affect 04/24/2013 None Full Exam - General 1994 Psychiatric mood and affect Mood: happy 04/24/2013 None Full Exam - General 1995 Constitutional general appearance Overall: well nourished 03/20/2013 None Full Exam - General 1995 Constitutional general appearance Overall: well developed 03/20/2013 None Full Exam - General 1994 Constitutional general appearance Overall: in no acute distress 03/20/2013 None Full Exam - General 1994 Eyes pupils and irises Overall: pupils equal, round, reactive to light and accomodation 03/20/2013 None Full Exam - General 1994 Eyes conjunctiva /eyelids Overall: conjunctiva clear 03/20/2013 None Full Exam - General 1994 Eyes conjunctiva /eyelids Overall: eyelids normal 03/20/2013 None Full Exam - General 1994 Eyes conjunctiva /eyelids Overall: cornea clear 03/20/2013 None Full Exam - General 1995 Ears/Nose/Throat oral cavity/pharynx/larynx Overall: oropharyngeal mucosa clear 03/20/2013 None Full Exam - General 1995 Ears/Nose/Throat oral cavity/pharynx/larynx Overall: no masses 03/20/2013 None Full Exam - General 1995 Ears/Nose/Throat oral cavity/pharynx/larynx Overall: oral mucosa clear 03/20/2013 None Full Exam - General 1995 Ears/Nose/Throat lips/teeth/gingiva Overall: benign gingiva 03/20/2013 None Full Exam - General 1995 Ears/Nose/Throat lips/teeth/gingiva Overall: no masses 03/20/2013 None Full Exam - General 1995 Ears/Nose/Throat lips/teeth/gingiva Overall: normal dentition 03/20/2013 None Full Exam - General 1995 Ears/Nose/Throat lips/teeth/gingiva Overall: benign lips 03/20/2013 None Full Exam - General 1994 Ears/Nose/Throat otoscopic exam Overall: tympanic membranes clear 03/20/2013 None Full Exam - General 1995 Ears/Nose/Throat otoscopic exam Overall: external auditory canals clear 03/20/2013 None Full Exam - General 1995 Ears/Nose/Throat internal nose Turbinates: erythema 03/20/2013 None Full Exam - General 1995 Ears/Nose/Throat internal nose Turbinates: left 03/20/2013 None Full Exam - General 1995 Ears/Nose/Throat internal nose Turbinates: inferior 03/20/2013 None Full Exam - General 1995 Ears/Nose/Throat internal nose Drainage: clear 03/20/2013 None Full Exam - General 1995 Ears/Nose/Throat internal nose Nasal cavity: narrowed 03/20/2013 None Full Exam - General 1995 Ears/Nose/Throat internal nose Sinus tenderness: left frontal 03/20/2013 None Full Exam - General 1994 Respiratory respiratory effort/rhythm Overall: normal rate 03/20/2013 None Full Exam - General 1994 Respiratory respiratory effort/rhythm Overall: no retractions 03/20/2013 None Full Exam - General 1994 Respiratory auscultation Overall: breath sounds clear bilaterally 03/20/2013 None Full Exam - General 1994 Cardiovascular auscultation of heart Overall: regular rate 03/20/2013 None Full Exam - General 1994 Cardiovascular auscultation of heart Overall: normal heart sounds 03/20/2013 None Full Exam - General 1994 Cardiovascular auscultation of heart Overall: no murmurs 03/20/2013 None Full Exam - General 1994 Abdomen abdominal exam Overall: no tenderness 03/20/2013 None Full Exam - General 1994 Abdomen abdominal exam Overall: normal bowel sounds 03/20/2013 None Full Exam - General 1994 Psychiatric orientation/consciousness Overall: oriented to person, place and time 03/20/2013 None Full Exam - General 1994 Neurologic cranial nerves Overall: crainial nerves 2 - 12 grossly intact 03/20/2013 None Full Exam - General 1994 Constitutional general appearance Overall: well developed 01/19/2013 None Full Exam - General 1994 Constitutional general appearance Overall: in no acute distress 01/19/2013 None Full Exam - General 1994 Constitutional general appearance Overall: well nourished 01/19/2013 None Full Exam - General 1994 Eyes pupils and irises Overall: pupils equal, round, reactive to light and accomodation 01/19/2013 None Full Exam - General 1994 Ears/Nose/Throat otoscopic exam Overall: external auditory canals clear 01/19/2013 None Full Exam - General 1994 Ears/Nose/Throat otoscopic exam Overall: tympanic membranes clear 01/19/2013 None Full Exam - General 1995 Ears/Nose/Throat oral cavity/pharynx/larynx Overall: oral mucosa clear 01/19/2013 None Full Exam - General 1995 Ears/Nose/Throat oral cavity/pharynx/larynx Overall: oropharyngeal mucosa clear 01/19/2013 None Full Exam - General 1995 Ears/Nose/Throat oral cavity/pharynx/larynx Overall: no masses 01/19/2013 None Full Exam - General 1994 Respiratory auscultation Overall: breath sounds clear bilaterally 01/19/2013 None Full Exam - General 1995 Respiratory respiratory effort/rhythm Overall: no retractions 01/19/2013 None Full Exam - General 1995 Respiratory respiratory effort/rhythm Overall: normal rate 01/19/2013 None Full Exam - General 1994 Cardiovascular auscultation of heart Overall: regular rate 01/19/2013 None Full Exam - General 1994 Cardiovascular auscultation of heart Overall: normal heart sounds 01/19/2013 None Full Exam - General 1994 Cardiovascular auscultation of heart Overall: no murmurs 01/19/2013 None Full Exam - General 1994 Musculoskeletal spine, ribs and pelvis Posture: lordosis 01/19/2013 None Full Exam - General 1994 Neurologic gait Conventional walking: wide-based 01/19/2013 None Full Exam - General 1994 Neurologic cranial nerves Overall: crainial nerves 2 - 12 grossly intact 01/19/2013 None Full Exam - General 1994 Psychiatric orientation/consciousness Overall: oriented to person, place and time 01/19/2013 None Full Exam - General 1994 Psychiatric mood and affect Overall: normal mood and affect 01/19/2013 None Full Exam - General 1994 Psychiatric mood and affect Mood: happy 01/19/2013 None Full Exam - General 1994 Constitutional general appearance Overall: well developed 12/26/2012 None Full Exam - General 1994 Constitutional general appearance Overall: in no acute distress 12/26/2012 None Full Exam - General 1994 Constitutional general appearance Overall: well nourished 12/26/2012 None Full Exam - General 1994 Psychiatric orientation/consciousness Overall: oriented to person, place and time 12/26/2012 None Full Exam - General 1994 Integument inspection of skin Location: face 12/26/2012 small red lesion with white scale on top- AK- left and right ear-left cheek, top of head x 2, behind right ear Full Exam - General 1994 Constitutional general appearance Overall: well developed 12/21/2012 None Full Exam - General 1994 Constitutional general appearance Overall: in no acute distress 12/21/2012 None Full Exam - General 1994 Constitutional general appearance Overall: well nourished 12/21/2012 None Full Exam - General 1994 Eyes pupils and irises Overall: pupils equal, round, reactive to light and accomodation 12/21/2012 None Full Exam - General 1995 Ears/Nose/Throat otoscopic exam Overall: external auditory canals clear 12/21/2012 None Full Exam - General 1995 Ears/Nose/Throat otoscopic exam Overall: tympanic membranes clear 12/21/2012 None Full Exam - General 1995 Ears/Nose/Throat oral cavity/pharynx/larynx Overall: oral mucosa clear 12/21/2012 None Full Exam - General 1995 Ears/Nose/Throat oral cavity/pharynx/larynx Overall: oropharyngeal mucosa clear 12/21/2012 None Full Exam - General 1995 Ears/Nose/Throat oral cavity/pharynx/larynx Overall: no masses 12/21/2012 None Full Exam - General 1994 Respiratory auscultation Overall: breath sounds clear bilaterally 12/21/2012 None Full Exam - General 1994 Respiratory respiratory effort/rhythm Overall: no retractions 12/21/2012 None Full Exam - General 1994 Respiratory respiratory effort/rhythm Overall: normal rate 12/21/2012 None Full Exam - General 1994 Cardiovascular auscultation of heart Overall: regular rate 12/21/2012 None Full Exam - General 1994 Cardiovascular auscultation of heart Overall: normal heart sounds 12/21/2012 None Full Exam - General 1994 Cardiovascular auscultation of heart Overall: no murmurs 12/21/2012 None Full Exam - General 1994 Abdomen abdominal exam Overall: no tenderness 12/21/2012 None Full Exam - General 1994 Abdomen abdominal exam Overall: normal bowel sounds 12/21/2012 None Full Exam - General 1994 Abdomen hernia exam Abdominal hernia present: non-tender 12/21/2012 DIASTASIS RECTI Full Exam - General 1994 Musculoskeletal spine, ribs and pelvis Posture: lordosis 12/21/2012 None Full Exam - General 1994 Neurologic deep tendon reflexes Overall: deep tendon reflexes intact 12/21/2012 None Full Exam - General 1994 Neurologic gait Conventional walking: wide-based 12/21/2012 None Full Exam - General 1994 Neurologic coordination Tremors: intention 12/21/2012 None Full Exam - General 1995 Neurologic coordination Tremors: resting 12/21/2012 None Full Exam - General 1995 Neurologic cranial nerves Overall: crainial nerves 2 - 12 grossly intact 12/21/2012 None Full Exam - General 1995 Psychiatric orientation/consciousness Overall: oriented to person, place and time 12/21/2012 None Full Exam - General 1995 Psychiatric mood and affect Overall: normal mood and affect 12/21/2012 None Full Exam - General 1995 Psychiatric mood and affect Mood: happy 12/21/2012 None Full Exam - General 1995 Abdomen hernia exam Abdominal hernia present: non-tender 11/30/2012 DIASTASIS RECTI Full Exam - General 1995 Neurologic coordination Tremors: resting 11/30/2012 None Full Exam - General 1995 Neurologic coordination Tremors: intention 11/30/2012 None Full Exam - General 1995 Neurologic gait Conventional walking: wide-based 11/30/2012 None Full Exam - General 1994 Constitutional general appearance Overall: well developed 11/30/2012 None Full Exam - General 1994 Constitutional general appearance Overall: in no acute distress 11/30/2012 None Full Exam - General 1994 Constitutional general appearance Overall: well nourished 11/30/2012 None Full Exam - General 1994 Eyes pupils and irises Overall: pupils equal, round, reactive to light and accomodation 11/30/2012 None Full Exam - General 1994 Ears/Nose/Throat otoscopic exam Overall: external auditory canals clear 11/30/2012 None Full Exam - General 1995 Ears/Nose/Throat otoscopic exam Overall: tympanic membranes clear 11/30/2012 None Full Exam - General 1994 Ears/Nose/Throat oral cavity/pharynx/larynx Overall: oral mucosa clear 11/30/2012 None Full Exam - General 1995 Ears/Nose/Throat oral cavity/pharynx/larynx Overall: oropharyngeal mucosa clear 11/30/2012 None Full Exam - General 1995 Ears/Nose/Throat oral cavity/pharynx/larynx Overall: no masses 11/30/2012 None Full Exam - General 1994 Respiratory auscultation Overall: breath sounds clear bilaterally 11/30/2012 None Full Exam - General 1994 Respiratory respiratory effort/rhythm Overall: no retractions 11/30/2012 None Full Exam - General 1994 Respiratory respiratory effort/rhythm Overall: normal rate 11/30/2012 None Full Exam - General 1994 Cardiovascular auscultation of heart Overall: regular rate 11/30/2012 None Full Exam - General 1995 Cardiovascular auscultation of heart Overall: normal heart sounds 11/30/2012 None Full Exam - General 1995 Cardiovascular auscultation of heart Overall: no murmurs 11/30/2012 None Full Exam - General 1995 Abdomen abdominal exam Overall: no tenderness 11/30/2012 None Full Exam - General 1995 Abdomen abdominal exam Overall: normal bowel sounds 11/30/2012 None Full Exam - General 1995 Musculoskeletal spine, ribs and pelvis Posture: lordosis 11/30/2012 None Full Exam - General 1995 Neurologic deep tendon reflexes Overall: deep tendon reflexes intact 11/30/2012 None Full Exam - General 1995 Neurologic cranial nerves Overall: crainial nerves 2 - 12 grossly intact 11/30/2012 None Full Exam - General 1994 Psychiatric orientation/consciousness Overall: oriented to person, place and time 11/30/2012 None Full Exam - General 1994 Psychiatric mood and affect Overall: normal mood and affect 11/30/2012 None Full Exam - General 1994 Psychiatric mood and affect Mood: happy 11/30/2012 None Full Exam - General 1994 Ears/Nose/Throat oral cavity/pharynx/larynx Overall: oral mucosa clear 05/30/2012 None Full Exam - General 1994 Respiratory auscultation Overall: breath sounds clear bilaterally 05/30/2012 None Full Exam - General 1994 Respiratory respiratory effort/rhythm Overall: no retractions 05/30/2012 None Full Exam - General 1994 Respiratory respiratory effort/rhythm Overall: normal rate 05/30/2012 None Full Exam - General 1994 Cardiovascular auscultation of heart Overall: regular rate 05/30/2012 None Full Exam - General 1994 Cardiovascular auscultation of heart Overall: normal heart sounds 05/30/2012 None Full Exam - General 1994 Abdomen abdominal exam Overall: normal bowel sounds 05/30/2012 None Full Exam - General 1994 Psychiatric orientation/consciousness Overall: oriented to person, place and time 05/30/2012 None Full Exam - General 1994 Abdomen abdominal exam Upper quadrant: tender to palpation 05/30/2012 None Full Exam - General 1994 Abdomen abdominal exam Upper quadrant: dull pain 05/30/2012 None Full Exam - General 1994 Constitutional general appearance Overall: well developed 05/30/2012 None Full Exam - General 1994 Constitutional general appearance Overall: in no acute distress 05/30/2012 None Full Exam - General 1994 Constitutional general appearance Overall: well nourished 05/30/2012 None Full Exam - General 1994 Eyes conjunctiva /eyelids Overall: conjunctiva clear 05/30/2012 None Full Exam - General 1995 Ears/Nose/Throat otoscopic exam Tympanic membrane: a normal exam 05/30/2012 None Full Exam - General 1994 Constitutional general appearance Overall: well developed 04/26/2012 None Full Exam - General 1994 Constitutional general appearance Overall: in no acute distress 04/26/2012 None Full Exam - General 1994 Constitutional general appearance Overall: well nourished 04/26/2012 None Full Exam - General 1994 Psychiatric orientation/consciousness Overall: oriented to person, place and time 04/26/2012 None Full Exam - General 1994 Abdomen abdominal exam Overall: no tenderness 04/26/2012 None Full Exam - General 1995 Abdomen abdominal exam Overall: normal bowel sounds 04/26/2012 None Full Exam - General 1994 Cardiovascular auscultation of heart Overall: regular rate 04/26/2012 None Full Exam - General 1994 Cardiovascular auscultation of heart Overall: normal heart sounds 04/26/2012 None Full Exam - General 1994 Respiratory respiratory effort/rhythm Overall: normal rate 04/26/2012 None Full Exam - General 1994 Respiratory respiratory effort/rhythm Overall: no retractions 04/26/2012 None Full Exam - General 1994 Respiratory auscultation Overall: breath sounds clear bilaterally 04/26/2012 None Full Exam - General 1994 Ears/Nose/Throat otoscopic exam External auditory canal: partial cerumen occlusion 04/26/2012 None Full Exam - General 1995 Ears/Nose/Throat otoscopic exam Tympanic membrane: a normal exam 04/26/2012 None Full Exam - General 1994 Ears/Nose/Throat oral cavity/pharynx/larynx Overall: oral mucosa clear 04/26/2012 None Full Exam - General 1994 Eyes conjunctiva /eyelids Overall: conjunctiva clear 04/26/2012 None Full Exam - General 1994 Constitutional general appearance Overall: well developed 04/14/2012 None Full Exam - General 1994 Constitutional general appearance Overall: in no acute distress 04/14/2012 None Full Exam - General 1994 Constitutional general appearance Overall: well nourished 04/14/2012 None Full Exam - General 1994 Eyes pupils and irises Overall: pupils equal, round, reactive to light and accomodation 04/14/2012 None Full Exam - General 1994 Ears/Nose/Throat otoscopic exam Overall: external auditory canals clear 04/14/2012 None Full Exam - General 1994 Ears/Nose/Throat otoscopic exam Overall: tympanic membranes clear 04/14/2012 None Full Exam - General 1994 Ears/Nose/Throat oral cavity/pharynx/larynx Overall: oral mucosa clear 04/14/2012 None Full Exam - General 1994 Ears/Nose/Throat oral cavity/pharynx/larynx Overall: oropharyngeal mucosa clear 04/14/2012 None Full Exam - General 1994 Ears/Nose/Throat oral cavity/pharynx/larynx Overall: no masses 04/14/2012 None Full Exam - General 1994 Respiratory auscultation Overall: breath sounds clear bilaterally 04/14/2012 None Full Exam - General 1994 Respiratory respiratory effort/rhythm Overall: no retractions 04/14/2012 None Full Exam - General 1994 Respiratory respiratory effort/rhythm Overall: normal rate 04/14/2012 None Full Exam - General 1994 Cardiovascular auscultation of heart Overall: regular rate 04/14/2012 None Full Exam - General 1994 Cardiovascular auscultation of heart Overall: normal heart sounds 04/14/2012 None Full Exam - General 1994 Cardiovascular auscultation of heart Overall: no murmurs 04/14/2012 None Full Exam - General 1994 Chest/Breast breast and axillae palpation Overall: breasts non-tender 04/14/2012 None Full Exam - General 1994 Chest/Breast breast and axillae palpation Overall: axillae non-tender 04/14/2012 None Full Exam - General 1994 Chest/Breast breast and axillae palpation Overall: no nipple discharge 04/14/2012 None Full Exam - General 1994 Chest/Breast breast and axillae palpation Lower outer quadrant: no mass 04/14/2012 None Full Exam - General 1994 Chest/Breast breast and axillae palpation Lower outer quadrant: mass present 04/14/2012 None Full Exam - General 1994 Chest/Breast breast and axillae palpation Lower outer quadrant: Left size (cm): _ 04/14/2012 None Full Exam - General 1994 Chest/Breast breast and axillae palpation Lower outer quadrant: firm 04/14/2012 None Full Exam - General 1994 Chest/Breast breast and axillae palpation Lower outer quadrant: circumscribed 04/14/2012 None Full Exam - General 1994 Abdomen abdominal exam Overall: no tenderness 04/14/2012 None Full Exam - General 1994 Abdomen abdominal exam Overall: normal bowel sounds 04/14/2012 None Full Exam - General 1994 Abdomen hernia exam Abdominal hernia present: non-tender 04/14/2012 DIASTASIS RECTI Full Exam - General 1994 Musculoskeletal spine, ribs and pelvis Posture: lordosis 04/14/2012 None Full Exam - General 1994 Neurologic deep tendon reflexes Overall: deep tendon reflexes intact 04/14/2012 None Full Exam - General 1994 Neurologic gait Overall: no ataxia, no unsteadiness 04/14/2012 None Full Exam - General 1994 Neurologic cranial nerves Overall: crainial nerves 2 - 12 grossly intact 04/14/2012 None Full Exam - General 1994 Psychiatric orientation/consciousness Overall: oriented to person, place and time 04/14/2012 None Full Exam - General 1994 Psychiatric mood and affect Overall: normal mood and affect 04/14/2012 None Full Exam - General 1994 Psychiatric mood and affect Mood: happy 04/14/2012 None Full Exam - General 1994 Integument inspection of skin Dermatitis: dryness/ flaking 04/14/2012 None Full Exam - General 1994 Integument inspection of skin Pigmentation: hemosideran pigment changes 04/14/2012 None Full Exam - General 1994 Musculoskeletal lower extremity Inspection - foot: claw toes 04/14/2012 None Full Exam - Dermatology Integument insp & palp - left lower extremity Lesion: patch 02/22/2012 None Full Exam - Dermatology Integument insp & palp - left lower extremity Location: on the foot 02/22/2012 None Full Exam - Dermatology Integument insp & palp - left lower extremity Color: erythematous 02/22/2012 None Full Exam - Dermatology Integument insp & palp - left lower extremity Appearance: scaly 02/22/2012 None Full Exam - Dermatology Extremities inspection & palpation billateral lower extremities no clubbing or cyanosis 02/22/2012 None Full Exam - Dermatology Musculoskeletal head and neck Overall: head atraumatic 02/22/2012 None Full Exam - Dermatology Cardiovascular peripheral vascular system Overall: warm extremities 02/22/2012 None Full Exam - Dermatology Cardiovascular peripheral vascular system Overall: no tenderness 02/22/2012 None Full Exam - Dermatology Ears/Nose/Throat oropharynx Overall: clear oral mucosa 02/22/2012 None Full Exam - Dermatology Constitutional general appearance Overall: well nourished 02/22/2012 None Full Exam - Dermatology Constitutional general appearance Overall: well developed 02/22/2012 None Full Exam - Dermatology Constitutional general appearance Overall: in no acute distress 02/22/2012 None Full Exam - Dermatology Eyes conjunctiva/ eyelids Overall: clear conjunctiva bilaterally 02/22/2012 None Full Exam - Dermatology Respiratory auscultation Overall: breath sounds clear bilaterally 02/22/2012 None Full Exam - Dermatology Respiratory respiratory effort/rhythm Overall: no retractions 02/22/2012 None Full Exam - Dermatology Respiratory respiratory effort/rhythm Overall: normal rate 02/22/2012 None Full Exam - Dermatology Psychiatric orientation Overall: oriented to person, place and time 02/22/2012 None Full Exam - General 1995 Ears/Nose/Throat oral cavity/pharynx/larynx Overall: oropharyngeal mucosa clear 01/13/2012 None Full Exam - General 1995 Ears/Nose/Throat oral cavity/pharynx/larynx Overall: no masses 01/13/2012 None Full Exam - General 1995 Respiratory auscultation Overall: breath sounds clear bilaterally 01/13/2012 None Full Exam - General 1994 Respiratory respiratory effort/rhythm Overall: no retractions 01/13/2012 None Full Exam - General 1994 Respiratory respiratory effort/rhythm Overall: normal rate 01/13/2012 None Full Exam - General 1994 Cardiovascular auscultation of heart Overall: regular rate 01/13/2012 None Full Exam - General 1994 Cardiovascular auscultation of heart Overall: normal heart sounds 01/13/2012 None Full Exam - General 1994 Cardiovascular auscultation of heart Overall: no murmurs 01/13/2012 None Full Exam - General 1994 Chest/Breast breast and axillae palpation Overall: breasts non-tender 01/13/2012 None Full Exam - General 1994 Chest/Breast breast and axillae palpation Overall: axillae non-tender 01/13/2012 None Full Exam - General 1994 Chest/Breast breast and axillae palpation Overall: no nipple discharge 01/13/2012 None Full Exam - General 1994 Chest/Breast breast and axillae palpation Lower outer quadrant: no mass 01/13/2012 None Full Exam - General 1994 Chest/Breast breast and axillae palpation Lower outer quadrant: mass present 01/13/2012 None Full Exam - General 1994 Constitutional general appearance Overall: well developed 01/13/2012 None Full Exam - General 1994 Constitutional general appearance Overall: in no acute distress 01/13/2012 None Full Exam - General 1994 Constitutional general appearance Overall: well nourished 01/13/2012 None Full Exam - General 1994 Eyes pupils and irises Overall: pupils equal, round, reactive to light and accomodation 01/13/2012 None Full Exam - General 1995 Ears/Nose/Throat otoscopic exam Overall: external auditory canals clear 01/13/2012 None Full Exam - General 1994 Ears/Nose/Throat otoscopic exam Overall: tympanic membranes clear 01/13/2012 None Full Exam - General 1995 Ears/Nose/Throat oral cavity/pharynx/larynx Overall: oral mucosa clear 01/13/2012 None Full Exam - General 1994 Chest/Breast breast and axillae palpation Lower outer quadrant: Left size (cm): _ 01/13/2012 None Full Exam - General 1995 Chest/Breast breast and axillae palpation Lower outer quadrant: firm 01/13/2012 None Full Exam - General 1994 Chest/Breast breast and axillae palpation Lower outer quadrant: circumscribed 01/13/2012 None Full Exam - General 1994 Abdomen abdominal exam Overall: no tenderness 01/13/2012 None Full Exam - General 1994 Abdomen abdominal exam Overall: normal bowel sounds 01/13/2012 None Full Exam - General 1994 Abdomen hernia exam Abdominal hernia present: non-tender 01/13/2012 DIASTASIS RECTI Full Exam - General 1994 Musculoskeletal spine, ribs and pelvis Posture: lordosis 01/13/2012 None Full Exam - General 1994 Neurologic deep tendon reflexes Overall: deep tendon reflexes intact 01/13/2012 None Full Exam - General 1994 Neurologic gait Overall: no ataxia, no unsteadiness 01/13/2012 None Full Exam - General 1994 Neurologic cranial nerves Overall: crainial nerves 2 - 12 grossly intact 01/13/2012 None Full Exam - General 1994 Psychiatric orientation/consciousness Overall: oriented to person, place and time 01/13/2012 None Full Exam - General 1994 Psychiatric mood and affect Overall: normal mood and affect 01/13/2012 None Full Exam - General 1994 Psychiatric mood and affect Mood: happy 01/13/2012 None Full Exam - General 1994 Constitutional general appearance Overall: well developed 09/02/2011 None Full Exam - General 1994 Constitutional general appearance Overall: in no acute distress 09/02/2011 None Full Exam - General 1994 Constitutional general appearance Overall: well nourished 09/02/2011 None Full Exam - General 1994 Eyes pupils and irises Overall: pupils equal, round, reactive to light and accomodation 09/02/2011 None Full Exam - General 1994 Ears/Nose/Throat otoscopic exam Overall: external auditory canals clear 09/02/2011 None Full Exam - General 1994 Ears/Nose/Throat otoscopic exam Overall: tympanic membranes clear 09/02/2011 None Full Exam - General 1994 Ears/Nose/Throat oral cavity/pharynx/larynx Overall: oral mucosa clear 09/02/2011 None Full Exam - General 1994 Chest/Breast breast and axillae palpation Lower outer quadrant: mass present 09/02/2011 None Full Exam - General 1994 Chest/Breast breast and axillae palpation Lower outer quadrant: Left size (cm): 2 09/02/2011 None Full Exam - General 1994 Chest/Breast breast and axillae palpation Lower outer quadrant: firm 09/02/2011 None Full Exam - General 1994 Chest/Breast breast and axillae palpation Lower outer quadrant: circumscribed 09/02/2011 None Full Exam - General 1994 Abdomen abdominal exam Overall: no tenderness 09/02/2011 None Full Exam - General 1994 Abdomen abdominal exam Overall: normal bowel sounds 09/02/2011 None Full Exam - General 1994 Abdomen hernia exam Abdominal hernia present: non-tender 09/02/2011 DIASTASIS RECTI Full Exam - General 1994 Neurologic deep tendon reflexes Overall: deep tendon reflexes intact 09/02/2011 None Full Exam - General 1994 Neurologic gait Overall: no ataxia, no unsteadiness 09/02/2011 None Full Exam - General 1994 Neurologic cranial nerves Overall: crainial nerves 2 - 12 grossly intact 09/02/2011 None Full Exam - General 1994 Psychiatric orientation/consciousness Overall: oriented to person, place and time 09/02/2011 None Full Exam - General 1994 Psychiatric mood and affect Overall: normal mood and affect 09/02/2011 None Full Exam - General 1994 Psychiatric mood and affect Mood: happy 09/02/2011 None Full Exam - General 1994 Musculoskeletal spine, ribs and pelvis Posture: lordosis 09/02/2011 None Full Exam - General 1994 Ears/Nose/Throat oral cavity/pharynx/larynx Overall: oropharyngeal mucosa clear 09/02/2011 None Full Exam - General 1994 Ears/Nose/Throat oral cavity/pharynx/larynx Overall: no masses 09/02/2011 None Full Exam - General 1994 Respiratory auscultation Overall: breath sounds clear bilaterally 09/02/2011 None Full Exam - General 1994 Respiratory respiratory effort/rhythm Overall: no retractions 09/02/2011 None Full Exam - General 1994 Respiratory respiratory effort/rhythm Overall: normal rate 09/02/2011 None Full Exam - General 1994 Cardiovascular auscultation of heart Overall: regular rate 09/02/2011 None Full Exam - General 1994 Cardiovascular auscultation of heart Overall: normal heart sounds 09/02/2011 None Full Exam - General 1994 Cardiovascular auscultation of heart Overall: no murmurs 09/02/2011 None Full Exam - General 1994 Chest/Breast breast and axillae palpation Overall: breasts non-tender 09/02/2011 None Full Exam - General 1994 Chest/Breast breast and axillae palpation Overall: axillae non-tender 09/02/2011 None Full Exam - General 1994 Chest/Breast breast and axillae palpation Overall: no nipple discharge 09/02/2011 None Full Exam - General 1994 Chest/Breast breast and axillae palpation Lower outer quadrant: no mass 09/02/2011 None Full Exam - General 1994 Constitutional general appearance Overall: well developed 08/05/2011 None Full Exam - General 1994 Constitutional general appearance Overall: in no acute distress 08/05/2011 None Full Exam - General 1994 Constitutional general appearance Overall: well nourished 08/05/2011 None Full Exam - General 1994 Eyes pupils and irises Overall: pupils equal, round, reactive to light and accomodation 08/05/2011 None Full Exam - General 1994 Ears/Nose/Throat oral cavity/pharynx/larynx Overall: oral mucosa clear 08/05/2011 None Full Exam - General 1994 Ears/Nose/Throat oral cavity/pharynx/larynx Overall: oropharyngeal mucosa clear 08/05/2011 None Full Exam - General 1994 Ears/Nose/Throat oral cavity/pharynx/larynx Overall: no masses 08/05/2011 None Full Exam - General 1994 Respiratory auscultation Overall: breath sounds clear bilaterally 08/05/2011 None Full Exam - General 1994 Respiratory respiratory effort/rhythm Overall: no retractions 08/05/2011 None Full Exam - General 1994 Respiratory respiratory effort/rhythm Overall: normal rate 08/05/2011 None Full Exam - General 1994 Cardiovascular auscultation of heart Overall: regular rate 08/05/2011 None Full Exam - General 1994 Cardiovascular auscultation of heart Overall: normal heart sounds 08/05/2011 None Full Exam - General 1994 Cardiovascular auscultation of heart Overall: no murmurs 08/05/2011 None Full Exam - General 1994 Neurologic gait Overall: no ataxia, no unsteadiness 08/05/2011 None Full Exam - General 1994 Psychiatric orientation/consciousness Overall: oriented to person, place and time 08/05/2011 None Full Exam - General 1994 Psychiatric mood and affect Overall: normal mood and affect 08/05/2011 None Full Exam - General 1994 Psychiatric mood and affect Mood: happy 08/05/2011 None Full Exam - General 1994 Musculoskeletal spine, ribs and pelvis Posture: lordosis 08/05/2011 None Full Exam - General 1994 Musculoskeletal spine, ribs and pelvis Sacroiliac joints: tender right sacroiliac joint 08/05/2011 None Full Exam - General 1994 Musculoskeletal spine, ribs and pelvis Sacroiliac joints: tender left sacroiliac joint 08/05/2011 None Full Exam - General 1994 Constitutional general appearance Overall: well nourished 07/01/2011 None Full Exam - General 1994 Constitutional general appearance Overall: well developed 07/01/2011 None Full Exam - General 1994 Constitutional general appearance Overall: in no acute distress 07/01/2011 None Full Exam - General 1994 Eyes pupils and irises Overall: pupils equal, round, reactive to light and accomodation 07/01/2011 None Full Exam - General 1994 Ears/Nose/Throat oral cavity/pharynx/larynx Overall: oropharyngeal mucosa clear 07/01/2011 None Full Exam - General 1994 Ears/Nose/Throat oral cavity/pharynx/larynx Overall: no masses 07/01/2011 None Full Exam - General 1994 Ears/Nose/Throat oral cavity/pharynx/larynx Overall: oral mucosa clear 07/01/2011 None Full Exam - General 1994 Ears/Nose/Throat otoscopic exam Overall: tympanic membranes clear 07/01/2011 None Full Exam - General 1994 Ears/Nose/Throat otoscopic exam Overall: external auditory canals clear 07/01/2011 None Full Exam - General 1994 Respiratory auscultation Overall: breath sounds clear bilaterally 07/01/2011 None Full Exam - General 1994 Respiratory respiratory effort/rhythm Overall: normal rate 07/01/2011 None Full Exam - General 1994 Respiratory respiratory effort/rhythm Overall: no retractions 07/01/2011 None Full Exam - General 1994 Cardiovascular auscultation of heart Overall: regular rate 07/01/2011 None Full Exam - General 1994 Cardiovascular auscultation of heart Overall: normal heart sounds 07/01/2011 None Full Exam - General 1994 Cardiovascular auscultation of heart Overall: no murmurs 07/01/2011 None Full Exam - General 1994 Chest/Breast breast and axillae palpation Overall: breasts non-tender 07/01/2011 None Full Exam - General 1994 Chest/Breast breast and axillae palpation Overall: no nipple discharge 07/01/2011 None Full Exam - General 1994 Chest/Breast breast and axillae palpation Overall: axillae non-tender 07/01/2011 None Full Exam - General 1994 Chest/Breast breast and axillae palpation Lower outer quadrant: mass present 07/01/2011 None Full Exam - General 1994 Chest/Breast breast and axillae palpation Lower outer quadrant: Left size (cm): 2 07/01/2011 None Full Exam - General 1994 Chest/Breast breast and axillae palpation Lower outer quadrant: firm 07/01/2011 None Full Exam - General 1994 Chest/Breast breast and axillae palpation Lower outer quadrant: circumscribed 07/01/2011 None Full Exam - General 1994 Chest/Breast breast and axillae palpation Lower outer quadrant: no mass 07/01/2011 None Full Exam - General 1994 Abdomen abdominal exam Overall: no tenderness 07/01/2011 None Full Exam - General 1994 Abdomen abdominal exam Overall: normal bowel sounds 07/01/2011 None Full Exam - General 1994 Abdomen hernia exam Abdominal hernia present: non-tender 07/01/2011 DIASTASIS RECTI Full Exam - General 1994 Neurologic gait Overall: no ataxia, no unsteadiness 07/01/2011 None Full Exam - General 1994 Neurologic deep tendon reflexes Overall: deep tendon reflexes intact 07/01/2011 None Full Exam - General 1994 Neurologic cranial nerves Overall: crainial nerves 2 - 12 grossly intact 07/01/2011 None Full Exam - General 1994 Psychiatric orientation/consciousness Overall: oriented to person, place and time 07/01/2011 None Full Exam - General 1994 Psychiatric mood and affect Mood: happy 07/01/2011 None Full Exam - General 1994 Psychiatric mood and affect Overall: normal mood and affect 07/01/2011 None Procedures Procedure Codes Date PPPS, SUBSEQ VISIT CPT -4: G0439 10/12/2016 TRIAMCINOLONE ACET INJ NOS CPT-4: J3301 01/20/2016 C WOUN RTS (CULTURE OTHR SPECIMN AEROBIC) CPT-4: 84735 03/19/2015 DRAINAGE OF SKIN ABSCESS CPT-4: 82610 03/19/2015 ADMIN PNEUMOCOCCAL VACCINE SNOMED CT: 70364673 CPT-4: G0009 03/08/2015 PNEUMOCOCCAL VACC 13 THALIA IM Formatting Model/CDA Sections, Assigned to SNOMED CT: 32649195 CPT-4: [id number] 03/08/2015 ADMIN PNEUMOCOCCAL VACCINE SNOMED CT: 60596810 CPT-4: G0009 01/23/2014 Pneumococcal Polysaccharide Vaccine, 23-Valent, Ad Assigned to/Merissa Sutton CPT-4: [id number] 01/23/2014 DESTRUCT PREMALG LESION CPT-4: 49821 10/24/2013 DESTRUCT PREMALG LES 2-14 CPT-4: 27611 10/24/2013 ROUTINE VENIPUNCTURE CPT-4: 04969 05/05/2013 PRESCRIP TRANSMIT VIA ERX SY CPT-4: G8553 04/24/2013 DESTRUCT PREMALG LESION CPT-4: 99045 12/26/2012 PRESCRIP TRANSMIT VIA ERX SY CPT-4: G8553 11/30/2012 ROUTINE VENIPUNCTURE CPT-4: 87493 11/25/2012 PRESCRIP TRANSMIT VIA ERX SY CPT-4: G8553 05/30/2012 PRESCRIP TRANSMIT VIA ERX SY CPT-4: G8553 04/14/2012 PRESCRIP TRANSMIT VIA ERX SY CPT-4: G8553 02/22/2012 ROUTINE VENIPUNCTURE CPT-4: 39925 01/13/2012 ROUTINE VENIPUNCTURE CPT-4: 36598 08/06/2011 ROUTINE VENIPUNCTURE CPT-4: 14630 06/25/2011 Vital Signs Date Vital 05/13/2017 Blood Pressure 1: 154/82 Code : 8480-6 BMI: 30.0 Code : 31194-7 Heart Rate 1 : 65 bpm Height: 6'2" SpO2: 98% Weight: 234 lbs 04/28/2017 Blood Pressure 1: 134/78 Code : 8480-6 BMI: 29.7 Code : 11041-6 Heart Rate 1 : 73 bpm Height: 6'2" SpO2: 94% Weight: 231 lbs 04/15/2017 Blood Pressure 1: 152/74 Code : 8480-6 BMI: 29.7 Code : 47391-7 Heart Rate 1 : 64 bpm Height: 6'2" SpO2: 98% Weight: 231 lbs 02/04/2017 Blood Pressure 1: 140/78 Code : 8480-6 BMI: 30.0 Code : 13787-4 Heart Rate 1 : 83 bpm Height: 6'2" SpO2: 97% Weight: 234 lbs 10/12/2016 Blood Pressure 1: 148/68 Code : 8480-6 BMI: 29.3 Code : 42900-3 Heart Rate 1 : 65 bpm Height: 6'2" SpO2: 100% Weight: 228 lbs 10/08/2016 Blood Pressure 1: 14868 Code : 8480-6 BMI: 29.3 Code : 42131-7 Heart Rate 1 : 65 bpm Height: 6'2" SpO2: 100% Weight: 228 lbs 8 oz 09/10/2016 Blood Pressure 1: 142/68 Code : 8480-6 BMI: 29.3 Code : 34303-6 Heart Rate 1 : 75 bpm Height: 6'2" SpO2: 97% Weight: 228 lbs 08/24/2016 Blood Pressure 1: 156/86 Code : 8480-6 BMI: 28.1 Code : 17383-7 Heart Rate 1 : 72 bpm Height: 6'2" SpO2: 97% Weight: 219 lbs 08/06/2016 Blood Pressure 1: 172/90 Code : 8480-6 BMI: 29.0 Code : 79488-3 Heart Rate 1 : 68 bpm Height: 6'2" SpO2: 98% Temperature: 36.1 (C) / 96.9 (F) Weight: 226 lbs 07/30/2016 Blood Pressure 1: 138/86 Code : 8480-6 BMI: 29.7 Code : 90167-8 Heart Rate 1 : 80 bpm Height: 6'2" SpO2: 95% Temperature: 36.5 (C) / 97.7 (F) Weight: 231 lbs 06/22/2016 Blood Pressure 1: 145/82 Code : 8480-6 Heart Rate 1: 77 bpm Respiratory Rate : 18 bpm SpO2: 97% Weight: 231 lbs 04/27/2016 Blood Pressure 1: 158/76 Code : 8480-6 Blood Pressure 1: 182/78 Code: 8480-6 BMI: 30.4 Code: 23200-1 Heart Rate 1: 69 bpm Height: 6'2" SpO2: 97% Weight: 237 lbs 03/23/2016 Blood Pressure 1: 140/82 Code : 8480-6 BMI: 30.4 Code : 93549-3 Heart Rate 1 : 77 bpm Height: 6'2" SpO2: 93% Weight: 237 lbs 01/20/2016 Blood Pressure 1: 142/80 Code : 8480-6 BMI: 31.2 Code : 06846-8 Heart Rate 1 : 64 bpm Height: 6'2" SpO2: 93% Weight: 243 lbs 12/16/2015 Blood Pressure 1: 138/88 Code : 8480-6 BMI: 30.3 Code : 55915-9 Heart Rate 1 : 62 bpm Height: 6'2" SpO2: 97% Weight: 236 lbs 12/09/2015 Blood Pressure 1: 148/80 Code : 8480-6 Blood Pressure 1: 198/92 Code: 8480-6 Blood Pressure 1: 152/70 Code: 8480-6 BMI: 30.3 Code: 12511-0 Heart Rate 1: 84 bpm Height: 6'2" Weight: 236 lbs 11/25/2015 Blood Pressure 1: 160/80 Code : 8480-6 BMI: 30.2 Code : 48310-1 Heart Rate 1 : 68 bpm Height: 6'2" SpO2: 96% Weight: 235 lbs 09/02/2015 Blood Pressure 1: 122/64 Code : 8480-6 BMI: 30.2 Code : 35630-2 Heart Rate 1 : 86 bpm Height: 6'2" SpO2: 98% Weight: 235 lbs 08/05/2015 Blood Pressure 1: 130/70 Code : 8480-6 Heart Rate 1: 81 bpm SpO2: 97% Weight: 233 lbs 07/25/2015 Blood Pressure 1: 142/80 Code : 8480-6 BMI: 30.0 Code : 29120-9 Heart Rate 1 : 74 bpm Height: 6'2" SpO2: 95% Weight: 234 lbs 06/03/2015 Blood Pressure 1: 150/68 Code : 8480-6 BMI: 30.0 Code : 37913-1 Heart Rate 1 : 66 bpm Height: 6'2" SpO2: 96% Weight: 234 lbs 03/19/2015 Blood Pressure 1: 154/78 Code : 8480-6 BMI: 30.3 Code : 94231-2 Heart Rate 1 : 63 bpm Height: 6'2" SpO2: 96% Weight: 236 lbs 03/04/2015 Blood Pressure 1: 124/68 Code : 8480-6 BMI: 30.2 Code : 39094-2 Heart Rate 1 : 60 bpm Height: 6'2" SpO2: 97% Weight: 235 lbs 02/20/2015 Blood Pressure 1: 160/84 Code : 8480-6 BMI: 30.8 Code : 75281-5 Heart Rate 1 : 79 bpm Height: 6'2" SpO2: 96% Weight: 240 lbs 02/11/2015 Blood Pressure 1: 170/102 Code: 8480-6 BMI: 31.1 Code: 78646-9 Heart Rate 1: 81 bpm Height: 6'2" SpO2: 96% Weight: 242 lbs 01/28/2015 Blood Pressure 1: 174/80 Code : 8480-6 Blood Pressure 2: 168/74 Code: 8480-6 BMI: 31.2 Code: 03268-8 Heart Rate 1: 74 bpm Height: 6'2" SpO2: 97% Weight: 243 lbs 10/01/2014 Blood Pressure 1: 152/84 Code : 8480-6 BMI: 30.4 Code : 47170-2 Heart Rate 1 : 80 bpm Height: 6'2" SpO2: 96% Weight: 237 lbs 05/30/2014 Blood Pressure 1: 140/82 Code : 8480-6 BMI: 30.6 Code : 55633-4 Heart Rate 1 : 86 bpm Height: 6'2" Weight: 238 lbs 02/28/2014 Blood Pressure 1: 152/86 Code : 8480-6 BMI: 29.5 Code : 85009-6 Heart Rate 1 : 64 bpm Height: 6'2" Weight: 230 lbs 01/23/2014 Blood Pressure 1: 142/68 Code : 8480-6 BMI: 29.7 Code : 11750-9 Heart Rate 1 : 80 bpm Height: 6'2" Weight: 231 lbs 12/26/2013 Blood Pressure 1: 150/72 Code : 8480-6 BMI: 29.3 Code : 92614-9 Heart Rate 1 : 60 bpm Height: 6'2" Respiratory Rate: 16 bpm Weight: 228 lbs 8 oz 10/24/2013 Blood Pressure 1: 140/84 Code : 8480-6 Heart Rate 1: 60 bpm 10/17/2013 Blood Pressure 1: 166/72 Code : 8480-6 BMI: 28.8 Code : 09105-3 Heart Rate 1 : 68 bpm Height: 6'2" Weight: 224 lbs 07/24/2013 Blood Pressure 1: 112/64 Code : 8480-6 BMI: 29.1 Code : 50808-2 Heart Rate 1 : 80 bpm Height: 6'2" Weight: 227 lbs 04/24/2013 Blood Pressure 1: 130/74 Code : 8480-6 BMI: 28.9 Code : 64171-4 Heart Rate 1 : 76 bpm Height: 6'2" Weight: 225 lbs 6 oz 03/20/2013 Blood Pressure 1: 150/70 Code : 8480-6 BMI: 29.7 Code : 86242-9 Heart Rate 1 : 76 bpm Height: 6'2" Temperature: 37.0 (C) / 98.6 (F) Weight: 231 lbs 01/19/2013 Blood Pressure 1: 150/78 Code : 8480-6 BMI: 30.2 Code : 37133-0 Heart Rate 1 : 84 bpm Height: 6'2" Weight: 235 lbs 12/26/2012 Blood Pressure 1: 142/78 Code : 8480-6 BMI: 29.9 Code : 02495-6 Heart Rate 1 : 84 bpm Height: 6'2" Weight: 233 lbs 12/21/2012 Blood Pressure 1: 142/80 Code : 8480-6 BMI: 29.5 Code : 01573-4 Heart Rate 1 : 80 bpm Height: 6'2" Weight: 230 lbs 11/30/2012 Blood Pressure 1: 146/78 Code : 8480-6 BMI: 29.4 Code : 18874-6 Heart Rate 1 : 80 bpm Height: 6'2" Weight: 229 lbs 05/30/2012 Blood Pressure 1: 150/74 Code : 8480-6 BMI: 29.4 Code : 24442-0 Heart Rate 1 : 76 bpm Height: 6'2" Respiratory Rate: 16 bpm Weight: 229 lbs 04/26/2012 Blood Pressure 1: 124/64 Code : 8480-6 Heart Rate 1: 90 bpm SpO2: 98% Temperature: 36.7 (C) / 98.1 (F) Weight: 04/14/2012 Blood Pressure 1: 150/88 Code : 8480-6 Blood Pressure 2: 150/90 Code: 8480-6 BMI: 29.4 Code: 78410-8 Heart Rate 1: 72 bpm Height: 6'2" Respiratory Rate: 16 bpm Weight: 229 lbs 02/22/2012 Blood Pressure 1: 158/70 Code : 8480-6 Heart Rate 1: 72 bpm Respiratory Rate : 16 bpm Weight: 225 lbs 01/13/2012 Blood Pressure 1: 164/78 Code : 8480-6 Heart Rate 1: 76 bpm Respiratory Rate : 16 bpm Weight: 230 lbs 09/02/2011 Blood Pressure 1: 140/66 Code : 8480-6 BMI: 28.9 Code : 75785-6 Heart Rate 1 : 64 bpm Height: 6'2" Weight: 225 lbs 08/05/2011 Blood Pressure 1: 142/72 Code : 8480-6 BMI: 29.3 Code : 34128-7 Heart Rate 1 : 80 bpm Height: 6'2" Weight: 228 lbs 07/01/2011 Blood Pressure 1: 136/70 Code : 8480-6 BMI: 29.2 Code : 90682-4 Heart Rate 1 : 68 bpm Height: 6'2" Respiratory Rate: 16 bpm Weight: 227 lbs 8 oz Functional Status No Functional Status data History of Present Illness Symptom Name Status Result Effective Date Notes rash Quality acute None rash Quality flaking 05/13/2017 None rash Quality pruritic 05/13/2017 None rash Onset and Resolution sudden in onset 05/13/2017 None rash Onset of Symptom 1 days ago 05/13/2017 None rash Pertinent Findings Denies fever 05/13/2017 None rash Pertinent Findings Denies pain 05/13/2017 None rash Pertinent Findings Denies tenderness 05/13/2017 None hypothyroid Location at the level of the thyroid 05/13/2017 None hypothyroid Quality chronic 05/13/2017 None hypothyroid Onset and Resolution ongoing 05/13/2017 None hypothyroid Frequency of Episodes unchanged 05/13/2017 None hypothyroid Significant Medical Conditions surgery 05/13/2017 None hypothyroid Triggers no known associated factors 05/13/2017 None hypothyroid Alleviating Factors medication 05/13/2017 None hypertension Quality primary hypertension 05/13/2017 None hypertension Onset and Resolution ongoing 05/13/2017 None hypertension Onset of Symptom during adulthood 05/13/2017 None hypertension Blood Pressure Values not checking blood pressure at home 05/13/2017 None hypertension Alleviating Factors medication 05/13/2017 None hypertension Pertinent Findings edema 05/13/2017 None diabetes mellitus Quality insulin dependent 05/13/2017 None diabetes mellitus Alleviating Factors medication 05/13/2017 None diabetes mellitus Exacerbating Factors diet 05/13/2017 None diabetes mellitus Pertinent Findings Denies dizziness 05/13/2017 None diabetes mellitus Pertinent Findings dyspnea 05/13/2017 "once in a while" diabetes mellitus Pertinent Findings Denies nausea 05/13/2017 None rash Location-Major on the lower body 04/28/2017 None rash Location-Major on the legs 04/28/2017 None rash Location-Extremities on the left leg 04/28/2017 None rash Color pink 2017 None rash Onset and Resolution sudden in onset 04/28/2017 None rash Onset of Symptom 1 days ago 04/28/2017 None rash Quality acute 01/2018 None rash Quality flaking 04/28/2017 None rash Quality pruritic 04/28/2017 None rash Pertinent Findings Denies fever 04/28/2017 None rash Pertinent Findings Denies pain 04/28/2017 None rash Pertinent Findings Denies tenderness 04/28/2017 None hypertension Quality primary hypertension 04/15/2017 None hypertension Onset and Resolution ongoing 04/15/2017 None hypertension Onset of Symptom during adulthood 04/15/2017 None hypertension Quality intermittent 04/15/2017 None hypertension Blood Pressure Values pt checking blood pressure - see scanned document 04/15/2017 None hypertension Pertinent Findings dizziness 04/15/2017 occasionally hypertension Pertinent Findings dyspnea 04/15/2017 occasionally hypertension Pertinent Findings edema 04/15/2017 None hypertension Alleviating Factors medication 04/15/2017 None hypothyroid Onset and Resolution ongoing 02/04/2017 None hypothyroid Alleviating Factors medication 02/04/2017 None hypertension Quality primary hypertension 02/04/2017 None hypertension Onset and Resolution ongoing 02/04/2017 None hypertension Onset of Symptom during adulthood 02/04/2017 None diabetes mellitus Test results Pt checking blood glucose at home, see scanned readings 2016 None diabetes mellitus Glucose monitoring fasting 02/04/2017 None diabetes mellitus Glucose monitoring daily 02/04/2017 None diabetes mellitus Alleviating Factors medication 02/04/2017 None diabetes mellitus Exacerbating Factors diet 02/04/2017 None diabetes mellitus Quality insulin dependent 02/04/2017 None diabetes mellitus Pertinent Findings Denies dizziness 02/04/2017 None diabetes mellitus Pertinent Findings dyspnea 02/04/2017 "once in a while" diabetes mellitus Pertinent Findings Denies nausea 02/04/2017 None hypertension Blood Pressure Values not checking blood pressure at home 02/04/2017 None hypertension Alleviating Factors medication 02/04/2017 None hypertension Pertinent Findings edema 02/04/2017 None hypothyroid Location at the level of the thyroid 02/04/2017 None hypothyroid Quality chronic 02/04/2017 None hypothyroid Frequency of Episodes unchanged 02/04/2017 None hypothyroid Significant Medical Conditions surgery 02/04/2017 None hypothyroid Triggers no known associated factors 02/04/2017 None Annual Medicare Wellness Exam Alcohol Use does not drink any alcohol 10/12/2016 None Annual Medicare Wellness Exam Aspirin Use no 10/12/2016 None Annual Medicare Wellness Exam Blood Glucose (self reported) borderline high (100-125) 10/12/2016 None Annual Medicare Wellness Exam Blood Pressure (self reported ) high (140/90 or higher) 10/12/2016 None Annual Medicare Wellness Exam Cholesterol (self reported) don't know 10/12/2016 None Annual Medicare Wellness Exam Depression (last 6 months) almost never 10/12/2016 None Annual Medicare Wellness Exam Depression or Hopelessness almost never 10/12/2016 None Annual Medicare Wellness Exam Describe Your Health fair 10/12/2016 None Annual Medicare Wellness Exam Exercise Habits does not exercise 10/12/2016 None Annual Medicare Wellness Exam Handling Stress usually denisa effectively 10/12/2016 None Annual Medicare Wellness Exam Hemaglobin A-1C (self reported ) don't know 10/12/2016 None Annual Medicare Wellness Exam Hours of Sleep 8 10/12/2016 None Annual Medicare Wellness Exam Interaction with Friends yes 10/12/2016 None Annual Medicare Wellness Exam Interests & Pleasure some of the time 10/12/2016 None Annual Medicare Wellness Exam Life Satisfaction satisfied 10/12/2016 None Annual Medicare Wellness Exam Motor Vehicle Safety always fastens seat belt: y 10/12/2016 None Annual Medicare Wellness Exam Nutrition servings of vegetables / fruit per day: 4 10/12/2016 None Annual Medicare Wellness Exam Smoking and Tobacco Use non smoker 10/12/2016 None Annual Medicare Wellness Exam Social & Emotional Support usually 10/12/2016 None Annual Medicare Wellness Exam Stress almost never 10/12/2016 None Annual Medicare Wellness Exam Sun Exposure protects skin when outdoors: n 10/12/2016 None hypothyroid Onset and Resolution ongoing 10/08/2016 None hypothyroid Frequency of Episodes unchanged 10/08/2016 None hypothyroid Triggers no known associated factors 10/08/2016 None hypothyroid Alleviating Factors medication 10/08/2016 None cough Location in the larynx 09/10/2016 None cough Location in the lung 09/10/2016 None cough Location in the throat 09/10/2016 None cough Quality acute None cough Onset and Resolution ongoing 09/10/2016 None cough Onset of Symptom 3 weeks ago 09/10/2016 None cough Limitation on Activities does not limit activities 09/10/2016 None cough Frequency of Episodes unchanged 09/10/2016 None cough Triggers no known associated factors 09/10/2016 None cough Alleviating Factors OTC medications 09/10/2016 jazmín seltzer plus cough Pertinent Findings chest discomfort 09/10/2016 None cough Pertinent Findings chills 09/10/2016 None cough Pertinent Findings dyspnea 09/10/2016 None cough Pertinent Findings fever 09/10/2016 None cough Pertinent Findings hoarseness 09/10/2016 None cough Pertinent Findings Denies muscle aches 09/10/2016 None cough Pertinent Findings Denies nasal congestion 09/10/2016 None cough Pertinent Findings sputum production 09/10/2016 clear cough Pertinent Findings weakness 09/10/2016 None Hospital Follow Up _ Other: thyroid removal 09/10/2016 None Hospital Follow Up Quality chronic illness 09/10/2016 None Hospital Follow Up Location thyroid 09/10/2016 None fatigue Limitation on Activities moderately limits activities 08/24/2016 None fatigue Onset of Symptom 6 months ago 08/24/2016 None fatigue Frequency of Episodes daily 08/24/2016 None fatigue Timing of Episodes no specific time 08/24/2016 None fatigue Significant Medications anticonvulsants 08/24/2016 carbidopa/ levodopa fatigue Triggers activity 08/24/2016 None fatigue Triggers meals 08/24/2016 None fatigue Alleviating Factors activity 08/24/2016 None fatigue Exacerbating Factors rest 08/24/2016 None fatigue Pertinent Findings cold intolerance 08/24/2016 None fatigue Pertinent Findings Denies dizziness 08/24/2016 None fatigue Quality stable 08/24/2016 None fatigue Onset and Resolution ongoing 08/24/2016 None cough Location in the larynx 08/24/2016 None cough Location in the lung 08/24/2016 None cough Location in the throat 08/24/2016 None cough Quality acute None cough Onset and Resolution ongoing 08/24/2016 None cough Onset of Symptom 3 weeks ago 08/24/2016 None cough Limitation on Activities does not limit activities 08/24/2016 None cough Frequency of Episodes unchanged 08/24/2016 None cough Triggers no known associated factors 08/24/2016 None cough Alleviating Factors OTC medications 08/24/2016 jazmín seltzer plus cough Pertinent Findings chest discomfort 08/24/2016 None cough Pertinent Findings chills 08/24/2016 None cough Pertinent Findings dyspnea 08/24/2016 None cough Pertinent Findings fever 08/24/2016 None cough Pertinent Findings hoarseness 08/24/2016 None cough Pertinent Findings Denies muscle aches 08/24/2016 None cough Pertinent Findings Denies nasal congestion 08/24/2016 None cough Pertinent Findings sputum production 08/24/2016 clear cough Pertinent Findings weakness 08/24/2016 None cough Location in the larynx 08/06/2016 None cough Location in the lung 08/06/2016 None cough Location in the throat 08/06/2016 None cough Quality acute None cough Onset and Resolution ongoing 08/06/2016 None cough Onset of Symptom 3 weeks ago 08/06/2016 None cough Limitation on Activities does not limit activities 08/06/2016 None cough Frequency of Episodes unchanged 08/06/2016 None cough Triggers no known associated factors 08/06/2016 None cough Alleviating Factors OTC medications 08/06/2016 jazmín seltzer plus cough Pertinent Findings chest discomfort 08/06/2016 None cough Pertinent Findings fever 08/06/2016 None cough Pertinent Findings hoarseness 08/06/2016 None cough Pertinent Findings Denies muscle aches 08/06/2016 None cough Pertinent Findings Denies nasal congestion 08/06/2016 None cough Pertinent Findings sputum production 08/06/2016 clear cough Pertinent Findings dyspnea 08/06/2016 None cough Pertinent Findings chills 08/06/2016 None cough Pertinent Findings weakness 08/06/2016 None cough Location in the larynx 07/30/2016 None cough Location in the lung 07/30/2016 None cough Location in the throat 07/30/2016 None cough Quality acute None cough Onset and Resolution ongoing 07/30/2016 None cough Pertinent Findings chest discomfort 07/30/2016 None cough Pertinent Findings Denies fever 07/30/2016 None cough Alleviating Factors OTC medications 07/30/2016 jazmín seltzer plus cough Pertinent Findings hoarseness 07/30/2016 None cough Pertinent Findings nasal congestion 07/30/2016 None cough Pertinent Findings Denies muscle aches 07/30/2016 None cough Pertinent Findings sputum production 07/30/2016 clear cough Onset of Symptom 3 weeks ago 07/30/2016 None cough Limitation on Activities does not limit activities 07/30/2016 None cough Frequency of Episodes unchanged 07/30/2016 None cough Triggers no known associated factors 07/30/2016 None fatigue Limitation on Activities moderately limits activities 06/22/2016 None fatigue Frequency of Episodes daily 06/22/2016 None fatigue Onset of Symptom 6 months ago 06/22/2016 None fatigue Timing of Episodes no specific time 06/22/2016 None fatigue Triggers meals 06/22/2016 None fatigue Triggers activity 06/22/2016 None fatigue Alleviating Factors activity 06/22/2016 None fatigue Exacerbating Factors rest 06/22/2016 None fatigue Significant Medications anticonvulsants 06/22/2016 carbidopa/ levodopa fatigue Pertinent Findings cold intolerance 06/22/2016 None fatigue Pertinent Findings Denies dizziness 06/22/2016 None fatigue Quality stable 06/22/2016 None fatigue Onset and Resolution ongoing 06/22/2016 None blood pressure followup Quality intermittent 04/27/2016 None blood pressure followup Onset and Resolution ongoing 04/27/2016 None blood pressure followup Onset of Symptom during adulthood 04/27/2016 None blood pressure followup Blood Pressure Values pt checking blood pressure at home, did not bring in to clinic 04/27/2016 None blood pressure followup Severity mild 04/27/2016 None blood pressure followup Frequency of Episodes unchanged 04/27/2016 None blood pressure followup Triggers pt checking blood pressure - see scanned document 04/27/2016 None blood pressure followup Alleviating Factors medication 04/27/2016 None blood pressure followup Pertinent Findings Denies dizziness 04/27/2016 None blood pressure followup Pertinent Findings Denies dyspnea 04/27/2016 None blood pressure followup Pertinent Findings Denies edema 04/27/2016 None edema Onset and Resolution ongoing 04/27/2016 None edema Limitation on Activities does not limit activities 04/27/2016 None edema Frequency of Episodes unchanged 04/27/2016 None edema Significant Past Medical History cardiac disease 04/27/2016 None edema Significant Past Medical History renal disease 04/27/2016 None edema Significant Medications diuretics 04/27/2016 None edema Triggers no known associated factors 04/27/2016 None edema Pertinent Findings back pain 04/27/2016 None edema Pertinent Findings Denies nausea 04/27/2016 None blood pressure followup Quality intermittent 03/23/2016 None blood pressure followup Onset and Resolution ongoing 03/23/2016 None blood pressure followup Onset of Symptom during adulthood 03/23/2016 None blood pressure followup Blood Pressure Values pt checking blood pressure at home, did not bring in to clinic 03/23/2016 None blood pressure followup Severity mild 03/23/2016 None blood pressure followup Frequency of Episodes unchanged 03/23/2016 None blood pressure followup Triggers pt checking blood pressure - see scanned document 03/23/2016 None blood pressure followup Alleviating Factors medication 03/23/2016 None blood pressure followup Pertinent Findings Denies dizziness 03/23/2016 None blood pressure followup Pertinent Findings Denies dyspnea 03/23/2016 None blood pressure followup Pertinent Findings Denies edema 03/23/2016 None edema Onset and Resolution ongoing 03/23/2016 None edema Limitation on Activities does not limit activities 03/23/2016 None edema Pertinent Findings back pain 03/23/2016 None edema Pertinent Findings Denies nausea 03/23/2016 None edema Frequency of Episodes unchanged 03/23/2016 None edema Significant Past Medical History cardiac disease 03/23/2016 None edema Significant Past Medical History renal disease 03/23/2016 None edema Significant Medications diuretics 03/23/2016 None edema Triggers no known associated factors 03/23/2016 None blood pressure followup Quality intermittent 01/20/2016 None blood pressure followup Onset and Resolution ongoing 01/20/2016 None blood pressure followup Onset of Symptom during adulthood 01/20/2016 None blood pressure followup Blood Pressure Values pt checking blood pressure at home, did not bring in to clinic 01/20/2016 None blood pressure followup Severity mild 01/20/2016 None blood pressure followup Frequency of Episodes unchanged 01/20/2016 None blood pressure followup Triggers pt checking blood pressure - see scanned document 01/20/2016 None blood pressure followup Alleviating Factors medication 01/20/2016 None blood pressure followup Pertinent Findings Denies dizziness 01/20/2016 None blood pressure followup Pertinent Findings Denies dyspnea 01/20/2016 None blood pressure followup Pertinent Findings Denies edema 01/20/2016 None back pain Location diffusely 01/20/2016 None back pain Location lumbar-sacral spine 01/20/2016 None back pain Quality intermittent 01/20/2016 None back pain Onset and Resolution ongoing 01/20/2016 None back pain Limitation on Activities moderately limits activities 01/20/2016 None back pain Pertinent Findings sleep disturbance 01/20/2016 None back pain Pertinent Findings Denies weakness 01/20/2016 None edema Onset and Resolution ongoing 01/20/2016 None edema Limitation on Activities does not limit activities 01/20/2016 None edema Pertinent Findings back pain 01/20/2016 None edema Pertinent Findings Denies nausea 01/20/2016 None blood pressure followup Quality intermittent 12/16/2015 None blood pressure followup Onset and Resolution ongoing 12/16/2015 None blood pressure followup Blood Pressure Values pt checking blood pressure at home, did not bring in to clinic 12/16/2015 None blood pressure followup Pertinent Findings Denies dizziness 12/16/2015 None blood pressure followup Pertinent Findings Denies dyspnea 12/16/2015 None blood pressure followup Pertinent Findings Denies edema 12/16/2015 None blood pressure followup Onset of Symptom during adulthood 12/16/2015 None blood pressure followup Severity mild 12/16/2015 None blood pressure followup Frequency of Episodes unchanged 12/16/2015 None blood pressure followup Triggers pt checking blood pressure - see scanned document 12/16/2015 None blood pressure followup Alleviating Factors medication 12/16/2015 None Hospital Follow Up _ Other: confusion 12/09/2015 None blood pressure followup Quality chronic 12/09/2015 None blood pressure followup Onset and Resolution ongoing 12/09/2015 None blood pressure followup Onset of Symptom during adulthood 12/09/2015 None blood pressure followup Blood Pressure Values Stage 1:SBP 140-159 mmHg / DBP 90-99 mmHg 12/09/2015 None blood pressure followup Severity mild 12/09/2015 None blood pressure followup Frequency of Episodes unchanged 12/09/2015 None blood pressure followup Triggers no known associated factors 12/09/2015 None blood pressure followup Alleviating Factors medication 12/09/2015 None diabetes mellitus Quality insulin dependent 11/25/2015 None diabetes mellitus Test results Pt checking blood glucose at home, see scanned readings 2015 None diabetes mellitus Glucose monitoring fasting 11/25/2015 None diabetes mellitus Alleviating Factors insulin 11/25/2015 None diabetes mellitus Exacerbating Factors diet 11/25/2015 None diabetes mellitus Pertinent Findings Denies dizziness 11/25/2015 None diabetes mellitus Pertinent Findings Denies nausea 11/25/2015 None hypertension Onset and Resolution ongoing 11/25/2015 None hypertension Onset of Symptom during adulthood 11/25/2015 None hypertension Quality intermittent 11/25/2015 None hypertension Blood Pressure Values pt checking blood pressure - see scanned document 11/25/2015 (checks occasionally) hypertension Alleviating Factors medication 11/25/2015 None hypertension Pertinent Findings Denies dizziness 11/25/2015 None hypertension Pertinent Findings Denies dyspnea 11/25/2015 None hypertension Pertinent Findings edema 11/25/2015 None edema Onset and Resolution ongoing 09/02/2015 None wound follow up Procedure Performed _ 08/05/2015 None edema Onset and Resolution ongoing 08/05/2015 None edema Onset of Symptom _ weeks ago 08/05/2015 None edema Limitation on Activities does not limit activities 08/05/2015 None edema Frequency of Episodes decreasing 08/05/2015 None edema Significant Past Medical History cardiac disease 08/05/2015 None edema Significant Past Medical History renal disease 08/05/2015 None edema Significant Medications diuretics 08/05/2015 states he has been taking lasix daily since last appt edema Triggers no known associated factors 08/05/2015 None edema Pertinent Findings Denies dark urine 08/05/2015 None edema Pertinent Findings Denies nausea 08/05/2015 None edema Pertinent Findings Denies limb pain / tenderness 08/05/2015 None edema Quality acute None edema Quality chronic 08/05/2015 None skin lesion Quality oozing 07/25/2015 None skin lesion Quality raised 07/25/2015 None skin lesion Location right lower leg 07/25/2015 None skin lesion Onset of Symptom 1 weeks ago 07/25/2015 None skin lesion Frequency of Episodes daily 07/25/2015 None skin lesion Pertinent Findings Denies fever 07/25/2015 None blood pressure followup Quality chronic 06/03/2015 None blood pressure followup Onset and Resolution ongoing 06/03/2015 None blood pressure followup Onset of Symptom during adulthood 06/03/2015 None blood pressure followup Blood Pressure Values pt checking blood pressure - see scanned document 06/03 None blood pressure followup Severity mild 06/03/2015 None blood pressure followup Frequency of Episodes unchanged 06/03/2015 None blood pressure followup Significant Family History heart disease 06/03/2015 None blood pressure followup Triggers pt checking blood pressure - see scanned document 06/03/2015 None blood pressure followup Alleviating Factors medication 06/03/2015 None blood pressure followup Pertinent Findings Denies dizziness 06/03/2015 None blood pressure followup Pertinent Findings Denies dyspnea 06/03/2015 None blood pressure followup Pertinent Findings edema 06/03/2015 None wound follow up Procedure Performed no packing today 03/27/2015 None wound follow up General Recovery well 03/27/2015 None wound follow up Date of procedure 201403/26/2015 None wound follow up Procedure Performed packing 03/26/2015 None wound follow up Date of procedure 201403/25/2015 None wound follow up Procedure Performed packing of wound 03/25/2015 None wound follow up Date of procedure 201403/22/2015 None wound follow up Procedure Performed packing of wound 03/22/2015 None wound follow up Date of procedure 201403/21/2015 None wound follow up Procedure Performed wound packing 03/21/2015 None wound follow up General Recovery well 03/21/2015 None wound follow up Procedure Performed packing 03/20/2015 None wound follow up Date of procedure 201403/20/2015 None wound follow up General Recovery well 03/20/2015 None cyst Location on the chest 03/19/2015 None cyst Quality firm 04/2014 None cyst Quality constant 03/19/2015 None cyst Quality sharp pain 03/19/2015 None cyst Onset and Resolution sudden in onset 03/19/2015 None cyst Onset of Symptom 4 days ago 03/19/2015 None cyst Frequency of Episodes daily 03/19/2015 None cyst Pertinent Findings pain 03/19/2015 None cyst Pertinent Findings redness 03/19/2015 None cyst Pertinent Findings tenderness 03/19/2015 None cyst Severity moderate 03/19/2015 None blisters Quality new 03/04/2015 None blisters Onset and Resolution sudden in onset 03/04/2015 None blisters Onset of Symptom 3 days ago 03/04/2015 None edema Onset and Resolution ongoing 03/04/2015 None edema Limitation on Activities does not limit activities 03/04/2015 None edema Frequency of Episodes daily 03/04/2015 None blisters Location-Extremities on the right leg 02/20/2015 None blisters Quality new 02/20/2015 None blisters Color pink None blisters Onset and Resolution sudden in onset 02/20/2015 None blisters Onset of Symptom 3 days ago 02/20/2015 None edema Onset and Resolution ongoing 02/20/2015 None edema Limitation on Activities does not limit activities 02/20/2015 None edema Frequency of Episodes daily 02/20/2015 None hypertension Quality chronic 02/11/2015 None hypertension Onset and Resolution ongoing 02/11/2015 occasionally checking at home reports somewhere in neighborhood of what reading was today- 159/70 hypertension Onset of Symptom during adulthood 02/11/2015 None hypertension Severity mild 02/11/2015 None hypertension Pertinent Findings Denies decreased energy 02/11/2015 None hypertension Pertinent Findings Denies dizziness 02/11/2015 None hypertension Pertinent Findings Denies dyspnea 02/11/2015 None hypertension Pertinent Findings edema 02/11/2015 None diabetes mellitus Onset of Symptom onset as an adult 02/11/2015 bs this am was 140 diabetes mellitus Quality insulin dependent 02/11/2015 None diabetes mellitus Quality chronic 02/11/2015 None diabetes mellitus Severity mild 02/11/2015 None diabetes mellitus Nutrition ADA diet 02/11/2015 None diabetes mellitus Pertinent Findings Denies dizziness 02/11/2015 None diabetes mellitus Pertinent Findings Denies dyspnea 02/11/2015 None diabetes mellitus Pertinent Findings Denies nausea 02/11/2015 None hypertension Blood Pressure Values not checking blood pressure at home 02/11/2015 None diabetes mellitus Glucose monitoring fasting 02/11/2015 None edema Onset of Symptom _ years ago 02/11/2015 None edema Location on the right leg 02/11/2015 None edema Pertinent Findings Denies limb pain / tenderness 02/11/2015 None edema Onset and Resolution worse during the day 02/11/2015 None edema Onset and Resolution ongoing 02/11/2015 None edema Quality pitting 02/11/2015 None edema Quality worsening 02/11/2015 None hypertension Quality chronic 01/28/2015 None hypertension Onset and Resolution ongoing 01/28/2015 occasionally checking at home reports somewhere in neighborhood of what reading was today- 159/70 hypertension Onset of Symptom during adulthood 01/28/2015 None hypertension Blood Pressure Values pt checking blood pressure - see scanned document 01/28/2015 None hypertension Severity mild 01/28/2015 None hypertension Pertinent Findings Denies decreased energy 01/28/2015 None hypertension Pertinent Findings Denies dizziness 01/28/2015 None hypertension Pertinent Findings Denies dyspnea 01/28/2015 None hypertension Pertinent Findings Denies edema 01/28/2015 None diabetes mellitus Onset of Symptom onset as an adult 01/28/2015 bs this am was 140 diabetes mellitus Quality insulin dependent 01/28/2015 None diabetes mellitus Quality chronic 01/28/2015 None diabetes mellitus Severity mild 01/28/2015 None diabetes mellitus Nutrition ADA diet 01/28/2015 None diabetes mellitus Pertinent Findings Denies dizziness 01/28/2015 None diabetes mellitus Pertinent Findings Denies dyspnea 01/28/2015 None diabetes mellitus Pertinent Findings Denies nausea 01/28/2015 None hypertension Quality chronic 10/01/2014 None hypertension Onset and Resolution ongoing 10/01/2014 occasionally checking at home reports somewhere in neighborhood of what reading was today- 159/70 hypertension Onset of Symptom during adulthood 10/01/2014 None hypertension Blood Pressure Values pt checking blood pressure - see scanned document 10/01/2014 None hypertension Severity mild 10/01/2014 None hypertension Pertinent Findings Denies decreased energy 10/01/2014 None hypertension Pertinent Findings Denies dizziness 10/01/2014 None hypertension Pertinent Findings Denies dyspnea 10/01/2014 None hypertension Pertinent Findings Denies edema 10/01/2014 None diabetes mellitus Onset of Symptom onset as an adult 10/01/2014 bs this am was 140 diabetes mellitus Quality insulin dependent 10/01/2014 None diabetes mellitus Quality chronic 10/01/2014 None diabetes mellitus Severity mild 10/01/2014 None diabetes mellitus Nutrition ADA diet 10/01/2014 None diabetes mellitus Pertinent Findings Denies dizziness 10/01/2014 None diabetes mellitus Pertinent Findings Denies dyspnea 10/01/2014 None diabetes mellitus Pertinent Findings Denies nausea 10/01/2014 None hypertension Quality chronic 05/30/2014 None hypertension Onset and Resolution ongoing 05/30/2014 None hypertension Onset of Symptom during adulthood 05/30/2014 None hypertension Blood Pressure Values pt checking blood pressure - see scanned document 05/30/2014 None hypertension Severity mild 05/30/2014 None hypertension Pertinent Findings Denies decreased energy 05/30/2014 None hypertension Pertinent Findings Denies dizziness 05/30/2014 None hypertension Pertinent Findings Denies dyspnea 05/30/2014 None hypertension Pertinent Findings Denies edema 05/30/2014 None diabetes mellitus Onset of Symptom onset as an adult 05/30/2014 None diabetes mellitus Quality insulin dependent 05/30/2014 None diabetes mellitus Quality chronic 05/30/2014 None diabetes mellitus Severity mild 05/30/2014 None diabetes mellitus Nutrition ADA diet 05/30/2014 None diabetes mellitus Pertinent Findings Denies dizziness 05/30/2014 None diabetes mellitus Pertinent Findings Denies dyspnea 05/30/2014 None diabetes mellitus Pertinent Findings Denies nausea 05/30/2014 None diabetes mellitus Test results Pt checking blood glucose readings, did not bring results to clinic 05/30/2014 None diabetes mellitus Glucose monitoring daily 05/30/2014 None diabetes mellitus Glucose monitoring twice daily 05/30/2014 None diabetes mellitus Blood glucose levels - pt states that his blood glucose levels are "pretty good" -- usually in the 130's 05/30/2014 None hypertension Quality chronic 02/28/2014 None hypertension Onset and Resolution ongoing 02/28/2014 None hypertension Onset of Symptom during adulthood 02/28/2014 None hypertension Blood Pressure Values pt checking blood pressure - see scanned document 02/28/2014 None hypertension Severity mild 02/28/2014 None hypertension Pertinent Findings Denies decreased energy 02/28/2014 None hypertension Pertinent Findings Denies dizziness 02/28/2014 None hypertension Pertinent Findings Denies dyspnea 02/28/2014 None hypertension Pertinent Findings Denies edema 02/28/2014 None diabetes mellitus Onset of Symptom onset as an adult 02/28/2014 None diabetes mellitus Quality insulin dependent 02/28/2014 None diabetes mellitus Quality chronic 02/28/2014 None diabetes mellitus Severity mild 02/28/2014 None diabetes mellitus Nutrition ADA diet 02/28/2014 None diabetes mellitus Pertinent Findings Denies dizziness 02/28/2014 None diabetes mellitus Pertinent Findings Denies dyspnea 02/28/2014 None diabetes mellitus Pertinent Findings Denies nausea 02/28/2014 None diabetes mellitus Test results Pt checking blood glucose at home, see scanned readings 2013 None diabetes mellitus Glucose monitoring daily 02/28/2014 None hypertension Quality chronic 01/23/2014 None hypertension Onset and Resolution ongoing 01/23/2014 None hypertension Onset of Symptom during adulthood 01/23/2014 None hypertension Blood Pressure Values pt checking blood pressure - see scanned document 01/23/2014 None hypertension Severity mild 01/23/2014 None hypertension Pertinent Findings Denies decreased energy 01/23/2014 None hypertension Pertinent Findings Denies dizziness 01/23/2014 None hypertension Pertinent Findings Denies dyspnea 01/23/2014 None hypertension Pertinent Findings Denies edema 01/23/2014 None nausea Onset and Resolution gradual in onset 01/23/2014 None nausea Onset of Symptom 2 weeks ago 01/23/2014 None nausea Severity moderate 01/23/2014 None nausea Triggers no known associated factors 01/23/2014 - pt states that he has "sore spots" in his abdomen in his right lower abdomen and in left upper abdomen - nausea Alleviating Factors no alleviatng factors 01/23/2014 None nausea Pertinent Findings Denies bloating 01/23/2014 None nausea Pertinent Findings dyspepsia 01/23/2014 - pt reports that the acid stomach has been worsening since he had his GI illness and since he stopped his pantoprazole - nausea Pertinent Findings Denies dyspnea 01/23/2014 None nausea Pertinent Findings Denies edema 01/23/2014 None nausea Pertinent Findings Denies emesis 01/23/2014 None nausea Quality acute 01/23/2014 None abdominal pain Location diffusely 01/23/2014 None abdominal pain Onset of Symptom 1 months ago 01/23/2014 None abdominal pain Timing of Episodes upon awakening 01/23/2014 None abdominal pain Timing of Episodes all day long 01/23/2014 None abdominal pain Pertinent Findings back pain 01/23/2014 always have back pain abdominal pain Pertinent Findings Denies vomiting 01/23/2014 None abdominal pain Pertinent Findings nausea 01/23/2014 sometimes abdominal pain Pertinent Findings Denies melena 01/23/2014 None abdominal pain Pertinent Findings Denies heartburn 01/23/2014 None hypertension Quality chronic 12/26/2013 None hypertension Onset and Resolution ongoing 12/26/2013 None hypertension Onset of Symptom during adulthood 12/26/2013 None hypertension Severity mild 12/26/2013 None nausea Onset and Resolution gradual in onset 12/26/2013 None nausea Severity moderate 12/26/2013 None nausea Quality acute 12/26/2013 None nausea Onset of Symptom 2 weeks ago 12/26/2013 None nausea Triggers no known associated factors 12/26/2013 - pt states that he has "sore spots" in his abdomen in his right lower abdomen and in left upper abdomen - nausea Alleviating Factors no alleviatng factors 12/26/2013 None nausea Pertinent Findings Denies bloating 12/26/2013 None nausea Pertinent Findings Denies dyspnea 12/26/2013 None nausea Pertinent Findings Denies edema 12/26/2013 None nausea Pertinent Findings Denies emesis 12/26/2013 None nausea Pertinent Findings dyspepsia 12/26/2013 - pt reports that the acid stomach has been worsening since he had his GI illness and since he stopped his pantoprazole - hypertension Blood Pressure Values pt checking blood pressure - see scanned document 12/26/2013 None hypertension Pertinent Findings Denies decreased energy 12/26/2013 None hypertension Pertinent Findings Denies dizziness 12/26/2013 None hypertension Pertinent Findings Denies dyspnea 12/26/2013 None hypertension Pertinent Findings Denies edema 12/26/2013 None office procedure Procedure to be performed electrocautery 10/24/2013 AK-left ear , right ear, left cheek, right cheek office procedure Reason for Procedure precancerous lesions 10/24/2013 None diabetes mellitus Quality chronic 10/17/2013 None diabetes mellitus Test results Pt checking blood glucose at home, see scanned readings 2013 None changing lesion Location-Head/Neck on the right cheek 10/17/2013 None changing lesion Location-Head/Neck on the left cheek 10/17/2013 None diabetes mellitus Quality insulin dependent 10/17/2013 None diabetes mellitus Nutrition ADA diet 10/17/2013 None diabetes mellitus Pertinent Findings Denies dizziness 10/17/2013 None diabetes mellitus Pertinent Findings Denies dyspnea 10/17/2013 None diabetes mellitus Pertinent Findings Denies nausea 10/17/2013 None diabetes mellitus Onset of Symptom onset as an adult 10/17/2013 None diabetes mellitus Severity mild 10/17/2013 None diabetes mellitus Exercise minimal exercise 10/17/2013 None hypertension Blood Pressure Values pt checking blood pressure - see scanned document 07/24/2013 None hypertension Pertinent Findings Denies decreased energy 07/24/2013 None hypertension Pertinent Findings Denies dizziness 07/24/2013 None hypertension Pertinent Findings Denies edema 07/24/2013 None hypertension Pertinent Findings Denies dyspnea 07/24/2013 None diabetes mellitus Test results Pt checking blood glucose at home, see scanned readings 2013 None diabetes mellitus Pertinent Findings Denies dizziness 07/24/2013 None diabetes mellitus Pertinent Findings Denies dyspnea 07/24/2013 None diabetes mellitus Pertinent Findings Denies nausea 07/24/2013 None hypertension Quality chronic 07/24/2013 None hypertension Onset and Resolution ongoing 07/24/2013 None hypertension Onset of Symptom during adulthood 07/24/2013 None hypertension Severity mild 07/24/2013 None diabetes mellitus Quality insulin dependent 07/24/2013 Pt has blood glucose readings=have been good per his - she is wondering if his insulin can be decreased. diabetes mellitus Nutrition ADA diet 07/24/2013 None diabetes mellitus Quality chronic 04/24/2013 None diabetes mellitus Test results Pt checking blood glucose at home, see scanned readings 2013 None diabetes mellitus Blood glucose levels greater than 120 04/24/2013 None diabetes mellitus Glucose monitoring twice daily 04/24/2013 None diabetes mellitus Significant Medications insulin 04/24/2013 None diabetes mellitus Alleviating Factors medication 04/24/2013 None diabetes mellitus Exacerbating Factors diet 04/24/2013 None diabetes mellitus Exercise minimal exercise 04/24/2013 None diabetes mellitus Pertinent Findings Denies dizziness 04/24/2013 None diabetes mellitus Pertinent Findings Denies dyspnea 04/24/2013 None diabetes mellitus Pertinent Findings Denies lethargy 04/24/2013 None diabetes mellitus Pertinent Findings Denies numbness 04/24/2013 None diabetes mellitus Pertinent Findings Denies vomiting 04/24/2013 None diabetes mellitus Pertinent Findings Denies weight loss 04/24/2013 None cyst Quality acute 05/2012 inside left nostril cyst Quality firm 05/2012 states his said it is swollen in side of nose. pt states it is sore cyst Pertinent Findings Denies fever 03/20/2013 None cyst Pertinent Findings pain 03/20/2013 None cyst Pertinent Findings Denies redness 03/20/2013 None cyst Pertinent Findings tenderness 03/20/2013 None cyst Pertinent Findings Denies warmth 03/20/2013 None cyst Onset of Symptom 3-4 days ago 03/20/2013 None diabetes mellitus Quality chronic 03/20/2013 None diabetes mellitus Test results Pt checking blood glucose at home, see scanned readings 2012 None diabetes mellitus Quality insulin dependent 01/19/2013 None diabetes mellitus Test results Pt checking blood glucose readings, did not bring results to clinic 01/19/2013 None diabetes mellitus Onset of Symptom onset as an adult 01/19/2013 None diabetes mellitus Blood glucose levels HIGH OF 230LOWEST 130AVERAGE AROUND 160'S 01/19/2013 None diabetes mellitus Glucose monitoring twice daily 01/19/2013 None diabetes mellitus Pertinent Findings Denies dizziness 01/19/2013 None diabetes mellitus Pertinent Findings Denies lethargy 01/19/2013 None diabetes mellitus Exercise minimal exercise 01/19/2013 pt is doing physical therapy for parkinson's disease at [facility] diabetes mellitus Alleviating Factors insulin 01/19/2013 None diabetes mellitus Significant Medications insulin 01/19/2013 None skin lesion Quality flat 12/26/2012 top of right ear and back of head skin lesion Onset and Resolution ongoing 12/26/2012 None skin lesion Onset of Symptom during adulthood 12/26/2012 None skin lesion Triggers sun exposure 12/26/2012 None skin lesion Pertinent Findings Denies fever 12/26/2012 None diabetes mellitus Quality non-insulin dependent 12/21/2012 None diabetes mellitus Glucose monitoring daily 12/21/2012 None diabetes mellitus Blood glucose levels between 60 and 120 12/21/2012 None diabetes mellitus Blood glucose levels greater than 120 12/21/2012 None diabetes mellitus Pertinent Findings Denies dyspnea 12/21/2012 None diabetes mellitus Pertinent Findings dizziness 12/21/2012 None diabetes mellitus Pertinent Findings Denies nausea 12/21/2012 None diabetes mellitus Quality non-insulin dependent 11/30/2012 None diabetes mellitus Quality chronic 11/30/2012 None diabetes mellitus Test results Pt checking blood glucose readings, did not bring results to clinic 11/30/2012 None back pain Location lumbar-sacral spine 11/30/2012 None back pain Quality constant 11/30/2012 states he has to wear a support every day back pain Onset of Symptom 2-3 months ago 11/30/2012 None back pain Limitation on Activities moderately limits activities 11/30/2012 pt is wondering if he is low on testosterone abdominal pain Quality acute 05/30/2012 None abdominal pain Quality worsening 05/30/2012 None abdominal pain Pertinent Findings Denies vomiting 05/30/2012 None abdominal pain Pertinent Findings Denies nausea 05/30/2012 None diabetes mellitus Quality non-insulin dependent 05/30/2012 None diabetes mellitus Quality chronic 05/30/2012 None diabetes mellitus Test results Pt checking blood glucose readings, did not bring results to clinic 05/30/2012 states he has changed his diet and blood sugars have improved abdominal pain Location in the epigastric area 05/30/2012 None abdominal pain Location in the LLQ 05/30/2012 None abdominal pain Location in the RUQ 05/30/2012 None abdominal pain Onset and Resolution gradual in onset 05/30/2012 None abdominal pain Limitation on Activities moderately limits activities 05/30/2012 None abdominal pain Significant Medical Conditions obseity 05/30/2012 None abdominal pain Triggers meals 05/30/2012 None diarrhea Quality acute 04/26/2012 None diarrhea Onset and Resolution ongoing 04/26/2012 None diarrhea Onset of Symptom 1 days ago 04/26/2012 None diarrhea Limitation on Activities does not limit activities 04/26/2012 None diarrhea Pertinent Findings chills 04/26/2012 and body aches diarrhea Frequency of Episodes 4-6 stools per day 04/26/2012 None diarrhea Timing of Episodes no specific time 04/26/2012 None diarrhea Pertinent Findings Denies cough 04/26/2012 None diarrhea Pertinent Findings Denies edema 04/26/2012 None diarrhea Pertinent Findings nausea 04/26/2012 None diarrhea Pertinent Findings Denies lethargy 04/26/2012 None diarrhea Pertinent Findings Denies bloating 04/26/2012 None skin lesion Location Right Foot 04/14/2012 None skin lesion Location on left lower leg 04/14/2012 no itching, no drainage hypertension Quality chronic 04/14/2012 None hypertension Onset and Resolution ongoing 04/14/2012 None hypertension Onset of Symptom during adulthood 04/14/2012 None hypertension Blood Pressure Values pt checking blood pressure - see scanned document 04/14/2012 None hypertension Severity mild 04/14/2012 None hypertension Significant Medical Conditions cardiac disease 04/14/2012 None hypertension Triggers stress 04/14/2012 None hypertension Alleviating Factors medication 04/14/2012 None hypertension Exacerbating Factors change in dietary habits 04/14/2012 None hypertension Exacerbating Factors stress 04/14/2012 None hypertension Pertinent Findings Denies decreased energy 04/14/2012 None hypertension Pertinent Findings Denies dizziness 04/14/2012 None diabetes mellitus Quality non-insulin dependent 04/14/2012 None diabetes mellitus Quality chronic 04/14/2012 None diabetes mellitus Severity mild 04/14/2012 None diabetes mellitus Pertinent Findings Denies behavioral changes 04/14/2012 None diabetes mellitus Pertinent Findings Denies dizziness 04/14/2012 None diabetes mellitus Pertinent Findings Denies lethargy 04/14/2012 None rash Quality new 02/21 None rash Color pink 2011 top of left foot rash Onset and Resolution ongoing 02/22/2012 None rash Onset of Symptom 3 weeks ago 02/22/2012 None rash Severity mild 08/2011 None rash Prior Treatments unresponsive to treatment 02/22/2012 used moisturizer rash Triggers no known triggers 02/22/2012 None diabetes mellitus Pertinent Findings Denies dizziness 01/13/2012 None diabetes mellitus Pertinent Findings Denies lethargy 01/13/2012 None hypertension Quality chronic 01/13/2012 None hypertension Onset and Resolution ongoing 01/13/2012 None hypertension Blood Pressure Values pt checking blood pressure - see scanned document 01/13/2012 None diabetes mellitus Quality non-insulin dependent 01/13/2012 None diabetes mellitus Quality chronic 01/13/2012 None diabetes mellitus Test results Pt checking blood glucose at home, see scanned readings 2011 None hypertension Onset of Symptom during adulthood 01/13/2012 None hypertension Severity mild 01/13/2012 None hypertension Significant Medical Conditions cardiac disease 01/13/2012 None hypertension Triggers stress 01/13/2012 None hypertension Alleviating Factors medication 01/13/2012 None hypertension Exacerbating Factors change in dietary habits 01/13/2012 None hypertension Exacerbating Factors stress 01/13/2012 None hypertension Pertinent Findings Denies decreased energy 01/13/2012 None hypertension Pertinent Findings Denies dizziness 01/13/2012 None diabetes mellitus Severity mild 01/13/2012 None diabetes mellitus Pertinent Findings Denies behavioral changes 01/13/2012 None diabetes mellitus Pertinent Findings Denies behavioral changes 09/02/2011 None diabetes mellitus Pertinent Findings Denies dizziness 09/02/2011 None diabetes mellitus Pertinent Findings Denies lethargy 09/02/2011 None diabetes mellitus Quality non-insulin dependent 09/02/2011 None hypertension Onset of Symptom during adulthood 09/02/2011 None hypertension Blood Pressure Values pt checking blood pressure - see scanned document 09/02/2011 None hypertension Severity mild 09/02/2011 None hypertension Significant Medical Conditions cardiac disease 09/02/2011 None hypertension Triggers stress 09/02/2011 None hypertension Alleviating Factors medication 09/02/2011 None hypertension Exacerbating Factors stress 09/02/2011 None hypertension Exacerbating Factors change in dietary habits 09/02/2011 None hypertension Pertinent Findings Denies dizziness 09/02/2011 None hypertension Pertinent Findings Denies decreased energy 09/02/2011 None hypertension Quality chronic 09/02/2011 None hypertension Onset and Resolution ongoing 09/02/2011 None diabetes mellitus Test results Pt checking blood glucose at home, see scanned readings 2011 None diabetes mellitus Severity mild 09/02/2011 None back pain Location lumbar-sacral spine 08/05/2011 None back pain Quality aching 08/05/2011 None back pain Onset and Resolution ongoing 08/05/2011 None back pain Alleviating Factors stretching 08/05/2011 states he has seen chiorpractor for years for back pain. states also goes for massage q 3 weeks back pain Triggers lifting 08/05/2011 None back pain Limitation on Activities moderately limits activities 08/05/2011 None back pain Triggers twisting 08/05/2011 None back pain Exacerbating Factors exertion 08/05/2011 None back pain Exacerbating Factors activity 08/05/2011 None back pain Exacerbating Factors position change 08/05/2011 None back pain Initial treatment heat 08/05/2011 None back pain Initial treatment stretching 08/05/2011 and chiroptractic manipulation back pain Radiating does not radiate 08/05/2011 None diabetes mellitus Test results Pt checking blood glucose at home, see scanned readings 2011 None diabetes mellitus Severity mild 07/01/2011 None diabetes mellitus Blood glucose levels greater than 120 07/01/2011 None diabetes mellitus Quality non-insulin dependent 07/01/2011 None diabetes mellitus Pertinent Findings Denies behavioral changes 07/01/2011 None diabetes mellitus Pertinent Findings Denies dizziness 07/01/2011 None diabetes mellitus Pertinent Findings Denies lethargy 07/01/2011 None diabetes mellitus Exercise minimal exercise 07/01/2011 walking in the house - do the "walk a mile" video Advance Directives No Advance Directive data Encounters Encounter Performer Location Codes Date 61922 EST. PATIENT, LEVEL IV Diagnosis: Essential (primary) hypertension[ICD10: I10] Diagnosis: Localized edema[ICD10: R60.0] Diagnosis: Atrophy of thyroid (acquired)[ICD10: E03.4] Diagnosis: Type 2 diabetes mellitus without complications[ICD10: E11.9] Yoli Medley MD, [facility] CPT-4: 45825 05/13/2017 18831 EST. PATIENT, LEVEL III Diagnosis: Rash and other nonspecific skin eruption[ICD10: R21] Bonita Medley MD, [facility] CPT-4: 33637 04/28/2017 55342 EST. PATIENT, LEVEL IV Diagnosis: Essential (primary) hypertension[ICD10: I10] Diagnosis: Atrophy of thyroid (acquired)[ICD10: E03.4] Diagnosis: Type 2 diabetes mellitus without complications[ICD10: E11.9] Bonita Medley MD , [facility] CPT-4: 34144 04/15/2017 ([id number]) 41140 EST. PATIENT, LEVEL IV Diagnosis: Type 2 diabetes mellitus with hyperglycemia[ICD10: E11.65] Diagnosis: Essential (primary) hypertension[ICD10: I10] Diagnosis: Hypothyroidism, unspecified[ICD10: E03.9] Ginny Medley MD, [facility] CPT-4: 86141 02/04/2017 ([id number]) 50263 EST. PATIENT, LEVEL III Diagnosis: Essential (primary) hypertension[ICD10: I10] Diagnosis: Hypothyroidism, unspecified[ICD10: E03.9] Ginny Medley MD, [facility] CPT-4: 21878 10/08/2016 ([id number]) 34316 EST. PATIENT, LEVEL III Diagnosis: Allergic rhinitis due to pollen[ICD10: J30.1] Diagnosis: Hypothyroidism, unspecified[ICD10: E03.9] Ginny Medley MD, [facility] CPT-4: 66336 09/10/2016 ([id number]) 67888 EST. 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 PATIENT, LEVEL IV Diagnosis: Abdominal distension (gaseous)[ICD10: R14.0] Diagnosis: Cough[ICD10: R05] Diagnosis: Acute bronchitis, unspecified[ICD10: J20.9] Diagnosis: Essential (primary) hypertension[ICD10: I10] Ginny Medley MD, [facility] CPT-4: 74860 08/06/2016 ([id number]) 28090 EST. PATIENT, LEVEL III Diagnosis: Cough[ICD10: R05] Diagnosis: Acute upper respiratory infection, unspecified[ICD10: J06.9] Ginny Medley MD, [facility] CPT-4: 60089 07/30/2016 ([id number]) 63065 EST. PATIENT, LEVEL IV Diagnosis: Type 2 diabetes mellitus with hyperglycemia[ICD10: E11.65] Diagnosis: Essential (primary) hypertension[ICD10: I10] Diagnosis: Parkinson's disease[ICD10: G20] Diagnosis: Localized edema[ICD10: R60.0] Ginny Medley MD, [facility] CPT-4: 93231 06/22/2016 ([id number]) 41076 EST. PATIENT, LEVEL IV Diagnosis: Essential (primary) hypertension[ICD10: I10] Diagnosis: Type 2 diabetes mellitus with hyperglycemia[ICD10: E11.65] Diagnosis: Hypo-osmolality and hyponatremia[ICD10: E87.1] Diagnosis: Hesitancy of micturition[ICD10: R39.11] Ginny Medley MD, [facility] CPT-4: 22255 04/27/2016 ([id number]) 19241 EST. PATIENT, LEVEL III Diagnosis: Essential (primary) hypertension[ICD10: I10] Diagnosis: Localized edema[ICD10: R60.0] Ginyn Medley MD, [facility] CPT-4: 77659 03/23/2016 ([id number]) 41212 EST. PATIENT, LEVEL IV Diagnosis: Low back pain[ICD10: M54.5] Diagnosis: Hypo-osmolality and hyponatremia[ICD10: E87.1] Diagnosis: Essential (primary) hypertension[ICD10: I10] Diagnosis: Localized edema[ICD10: R60.0] Diagnosis: Type 2 diabetes mellitus with hyperglycemia[ICD10: E11.65] Ginny Medley MD, [facility] CPT-4: 94914 01/20/2016 ([id number]) 30755 EST. PATIENT, LEVEL III Diagnosis: Type 2 diabetes mellitus with hyperglycemia[ICD10: E11.65] Diagnosis: Essential (primary) hypertension[ICD10: I10] Diagnosis: Hypo-osmolality and hyponatremia[ICD10: E87.1] Ginny Medley MD, [facility] CPT-4: 02178 12/16/2015 ([id number]) 03907 EST. PATIENT, LEVEL III Diagnosis: Essential (primary) hypertension[ICD10: I10] Diagnosis: Hypo-osmolality and hyponatremia[ICD10: E87.1] Ginny Medley MD, [facility] CPT-4: 37736 12/09/2015 ([id number]) 67419 EST. PATIENT, LEVEL IV Diagnosis: Essential (primary) hypertension[ICD10: I10] Diagnosis: Type 2 diabetes mellitus with hyperglycemia[ICD10: E11.65] Diagnosis: Parkinson's disease[ICD10: G20] Ginny Medley MD, [facility] CPT-4: 41170 11/25/2015 03621 EST. PATIENT, LEVEL III Diagnosis: Localized edema[ICD10: R60.0] Diagnosis: Essential (primary) hypertension[ICD10: I10] Bonita Medley MD, [facility] CPT-4: 68075 09/02/2015 ([id number]) 04400 EST. PATIENT, LEVEL III Diagnosis: Localized edema[ICD10: R60.0] Ginny Medley MD, [facility] CPT-4: 47391 08/05/2015 ([id number]) 11825 EST. PATIENT, LEVEL III Diagnosis: Localized edema[ICD10: R60.0] Diagnosis: Unspecified open wound, right ankle, initial encounter[ICD10: S91.001A] Ginny Medley MD, [facility] CPT-4: 14097 ([id number]) 29168 EST. PATIENT, LEVEL IV Diagnosis: Essential (primary) hypertension[ICD10: I10] Diagnosis: Localized edema[ICD10: R60.0] Diagnosis: Low back pain[ICD10: M54.5] Diagnosis: Type 2 diabetes mellitus with hyperglycemia[ICD10: E11.65] Ginny Medley MD, [facility] CPT-4: 62728 06/03/2015 ([id number]) Miscellaneous no charge Diagnosis: Encounter for other specified aftercare[ICD10: Z51.89] Yoli Medley MD [facility] CPT-4: 03013 03/20/2015 46984 EST. PATIENT, LEVEL IV Diagnosis: Cutaneous abscess of chest wall[ICD10: L02.213] Yoli Medley MD [facility] CPT-4: 88624 03/19/2015 ([id number]) 12186 EST. PATIENT, LEVEL III Diagnosis: Edema, unspecified[ICD10: R60.9] Yoli Medley MD [facility] CPT-4: 50734 03/04/2015 13949 EST. PATIENT, LEVEL III Diagnosis: Edema, unspecified[ICD10: R60.9] Diagnosis: Unspecified open wound, right ankle, initial encounter[ICD10: S91.001A] Yoli Medley MD [facility] CPT-4: 57780 07/2014 ([id number]) 20810 EST. PATIENT, LEVEL III Diagnosis: Edema, unspecified[ICD10: R60.9] Yoli Medley MD [facility] CPT-4: 65802 02/11/2015 ([id number]) 58157 EST. PATIENT, LEVEL IV Diagnosis: Type 2 diabetes mellitus with hyperglycemia[ICD10: E11.65] Diagnosis: Essential (primary) hypertension[ICD10: I10] Diagnosis: Edema, unspecified[ICD10: R60.9] Yoli Medley MD, [facility] CPT-4: 17956 01/28/2015 ([id number]) 03507 EST. PATIENT, LEVEL IV Diagnosis: DIABETES TYPE II[ICD9: 250.00] Diagnosis: ESSENTIAL HYPERTENSION[ICD9: 401.9] Diagnosis: Parkinsons disease[ICD9: 332.0] Yoli Medley MD [facility] CPT- 4: 97000 10/01/2014 ([id number]) 12669 EST. PATIENT, LEVEL IV Diagnosis: ESSENTIAL HYPERTENSION[ICD9: 401.9] Diagnosis: DIABETES TYPE II[ICD9: 250.00] Diagnosis: Parkinsons disease[ICD9: 332.0] Yoli Medley MD [facility] CPT- 4: 47829 05/30/2014 ([id number]) 59070 EST. PATIENT, LEVEL IV Diagnosis: DIABETES TYPE II[ICD9: 250.00] Diagnosis: ESSENTIAL HYPERTENSION[ICD9: 401.9] Diagnosis: Back pain[ICD9: 724.5] Yoli Medley MD [facility] CPT-4: 96253 02/28/2014 ([id number]) 01624 EST. PATIENT, LEVEL III Diagnosis: ESOPHAGEAL REFLUX[ICD9: 530.81] Diagnosis: Esophageal ulcer[ICD9: 530.20] Yoli Medley MD [facility] CPT- 4: 69402 01/23/2014 ([id number]) 88045 EST. PATIENT, LEVEL IV Diagnosis: ESOPHAGEAL REFLUX[ICD9: 530.81] Diagnosis: ESSENTIAL HYPERTENSION[ICD9: 401.9] Yoli Medley MD [facility] CPT-4: 41916 12/26/2013 ([id number]) 75350 EST. PATIENT, LEVEL IV Diagnosis: Diabetes type 2, uncontrolled[ICD9: 250.02] Diagnosis: ESSENTIAL HYPERTENSION[ICD9: 401.9] Diagnosis: Back pain[ICD9: 724.5] Diagnosis: ELEVATED PSA[ICD9: 790.93] Yoli Medley MD [facility] CPT- 4: 04758 10/17/2013 ([id number]) 46377 EST. PATIENT, LEVEL IV Diagnosis: DIABETES TYPE II[SNOMED: 586641477] Diagnosis: ESSENTIAL HYPERTENSION[SNOMED: 26582006] Diagnosis: Sleep apnea[ICD9: 780.57] Yoli Medley MD [facility] CPT-4: 90030 07/24/2013 ([id number]) 03780 EST. PATIENT, LEVEL IV Diagnosis: DIABETES TYPE II[SNOMED: 065546413] Diagnosis: ESSENTIAL HYPERTENSION[SNOMED: 88990258] Diagnosis: HYPERLIPIDEMIA[ICD9: 272.4] Yoli Medley MD [facility] CPT- 4: 05489 04/24/2013 ([id number]) 83084 EST. PATIENT, LEVEL III Diagnosis: DIABETES TYPE II[SNOMED: 125020321] Yoli Medley MD [facility] CPT-4: 67045 03/20/2013 ([id number]) 46598 EST. PATIENT, LEVEL III Diagnosis: DM W/O COMPLICATION TYPE II, UNCONTROLLED[SNOMED: 59417166] Yoli Medley MD [facility] CPT-4: 58425 01/19/2013 ([id number]) 34009 EST. PATIENT, LEVEL III Diagnosis: DM W/O COMPLICATION TYPE II, UNCONTROLLED[SNOMED: 21020229] Yoli Medley MD [facility] CPT-4: 01843 12/21/2012 ([id number]) 16498 EST. PATIENT, LEVEL IV Diagnosis: DM W/O COMPLICATION TYPE II, UNCONTROLLED[SNOMED: 08331904] Diagnosis: Parkinsons disease[ICD9: 332.0] Diagnosis: Back pain[ICD9: 724.5] Diagnosis: Gait instability[ICD9: 781.2] Yoli Medley MD [facility] CPT- 4: 29510 11/30/2012 ([id number]) 01697 EST. PATIENT, LEVEL IV Diagnosis: ESSENTIAL HYPERTENSION[SNOMED: 38577464] Diagnosis: Abdominal pain[ICD9: 789.00] Diagnosis: DIABETES TYPE II[SNOMED: 755173015] Yoli Medley MD [facility] CPT-4: 39131 05/30/2012 ([id number]) 45290 EST. PATIENT, LEVEL III Diagnosis: Gastroenteritis[ICD9: 558.9] Ginny Medley MD [facility] CPT-4: 38518 04/26/2012 ([id number]) 86535 EST. PATIENT, LEVEL IV Diagnosis: ESSENTIAL HYPERTENSION[SNOMED: 95572076] Diagnosis: DIABETES TYPE II[SNOMED: 612784930] Diagnosis: Claw toe[ICD9: 735.5] Yoli Medley MD [facility] CPT-4: 53141 04/14/2012 ([id number]) 51706 EST. PATIENT, LEVEL III Diagnosis: Rash[ICD9: 782.1] Diagnosis: DERMATOPHYTOSIS OF FOOT[ICD9: 110.4] Ginny Medley MD, [facility] CPT-4: 43535 02/22/2012 [id number]) 66557 EST. PATIENT, LEVEL IV Diagnosis: DM W/O COMPLICATION TYPE II, UNCONTROLLED[SNOMED: 68084438] Diagnosis: ESSENTIAL HYPERTENSION[SNOMED: 99216402] Diagnosis: Constipation - functional[ICD9: 564.09] Diagnosis: Encounter for long-term (current) use of other high-risk medications[ ICD9: V58.69] Yoli Medley MD, [facility] CPT-4: 40609 01/13/2012 ([id number] 39672 EST. PATIENT, LEVEL IV Diagnosis: ESSENTIAL HYPERTENSION[SNOMED: 28209597] Diagnosis: DIABETES TYPE II[SNOMED: 613784147] Yoli Medley MD, [facility] CPT-4: 32020 09/02/2011 97556 EST. PATIENT, LEVEL IV Diagnosis: LUMBAGO[ICD9: 724.2] Diagnosis: Sacroiliitis[ICD9: 720.2] Yoli Medley MD, [facility] CPT-4: 46922 08/05/2011 [id number]) 68864 EST. PATIENT, LEVEL IV Diagnosis: ESSENTIAL HYPERTENSION[SNOMED: 19176824] Diagnosis: DIABETES TYPE II[SNOMED: 569045029] Diagnosis: Breast mass in male[ICD9: 611.72] Diagnosis: Chronic hyponatremia[ICD9: 276.1] Yoli Medley MD, [facility] CPT-4: 61366 07/01/2011 Plan of Care Planned Activity Notes Codes Status Date Visit Plan: Hypertension - well controlled - continue with current medications, continue with no added salt diet. Pt has been encouraged to exercise daily. The pt has been advised to call the office if there are any acute concerns about change in blood pressure readings at home. Edema - pt has been advised to elevate legs to prevent dependent edema, compression has been recommended to help to naturally decrease peripheral edema. Diuretic use has been discussed and pt has been instructed in appropriate use of such medication as necessary to further attempt to reduce peripheral edema. Compression socks - discussed pt to use zippered compression socks - information about the socks given to his . Diabetes Mellitus - controlled - per recent FSBS reports. I have recommended for the patient to have follow up labs prior to the next office visit. The patient has been instructed to continue with current medications as previously directed, continue with regular FSBS monitoring to assure continued control of diabetes. Pt to call for any acute concerns, complaints, or if the blood glucose readings are starting to become less controlled. 05/13/2017 Appointment: Yoli Medley WPtel: [address] [facility] (15 min) Moderate 05/13/2017 Patient Education: Patient Medication Summary Completed 05/13/2017 Visit Plan: Rash - The patient was instructed to use the ointment as per RX. The patient is to call for any change in symptoms, increase in size of the lesion, increase in pain, worsening redness, warmth, discharge. 04/28/2017 Appointment: Bonita Villa WPtel: [phone] [facility] [place] (15 min) Moderate 04/28/2017 Patient Education: Patient Medication Summary Completed 04/28/2017 Appointment: [facility]el[facility] [place] (30 min) Complex 04/16/2017 Visit Plan: Hypertension - continue with current medications, continue with no added salt diet. Pt has been encouraged to exercise daily. The pt has been advised to call the office if there are any acute concerns about change in blood pressure readings at home. Diabetes Mellitus - controlled - per recent FSBS reports. I have recommended for the patient to have follow up labs prior to the next office visit. The patient has been instructed to continue with current medications as previously directed, continue with regular FSBS monitoring to assure continued control of diabetes. Pt to call for any acute concerns, complaints, or if the blood glucose readings are starting to become less controlled. Hypothyroidism - pt with chronic hypothyroidism, continue with current medication, will monitor pt to signs or symptoms of lack of adequate supplementation. Pt is to continue with current dose of medication unless directed otherwise. Check labs at regular intervals wither q 3 months or q 6 months based on previous levels of control. 04/15/2017 Appointment: Bonita Villa WPtel: [phone] [facility] [place] (30 min) Complex 04/15/2017 Patient Education: Patient Medication Summary Completed 04/15/2017 Visit Plan: Hypertension - well controlled - continue with current medications, continue with no added salt diet. Pt has been encouraged to exercise daily. The pt has been advised to call the office if there are any acute concerns about change in blood pressure readings at home. Diabetes Mellitus - controlled - per recent FSBS reports. I have recommended for the patient to have follow up labs prior to the next office visit. The patient has been instructed to continue with current medications as previously directed, continue with regular FSBS monitoring to assure continued control of diabetes. Pt to call for any acute concerns, complaints, or if the blood glucose readings are starting to become less controlled. Hypothyroidism - pt with chronic hypothyroidism, continue with current medication, will monitor pt to signs or symptoms of lack of adequate supplementation. Pt is to continue with current dose of medication unless directed otherwise. Check labs at regular intervals wither q 3 months or q 6 months based on previous levels of control. 02/04/2017 Appointment: Ginny Pearl WPtel: [phone] (30 min) Complex 02/04/2017 Patient Education: Patient Medication Summary Completed 02/04/2017 Patient Education: Obesity Completed 02/04/2017 Patient Education: Patient Medication Summary Completed 02/01/2017 Appointment: Ginny Pearl WPtel: [phone] (30 min) Complex 01/12/2017 Appointment: Ginny Pearl WPtel: [phone] (30 min) Complex 01/07/2017 Visit Plan: Medicare Exam - today we discussed the patients past history, immunizations, preventative exams/evaluations - colonoscopy, fecal occult blood testing, routine labs for renal function, glucose, cholesterol, osteoporosis evaluations, cardiovascular testing and cancer screenings. We have also discussed mental health and the signs/symptoms of depression. The patient was advised of home safety evaluations and the need to make sure that as the aging process continues, we need to be aware of different ways to make the home a safer place to reside. The patient has also been counseled that exercise is necessary - and of utmost importance as we age to help decrease fall risk and to maintain independence in the home. Today we discussed the need for the patient to create paperwork for Advanced directives as well as for the patient to provide this office with a copy of her DOPA paperwork for health care surrogate. 10/12/2016 Visit Plan: Medicare Exam - today we discussed the patients past history, immunizations, preventative exams/evaluations - colonoscopy, fecal occult blood testing, routine labs for renal function, glucose, cholesterol, osteoporosis evaluations, cardiovascular testing and cancer screenings. We have also discussed mental health and the signs/symptoms of depression. The patient was advised of home safety evaluations and the need to make sure that as the aging process continues, we need to be aware of different ways to make the home a safer place to reside. The patient has also been counseled that exercise is necessary - and of utmost importance as we age to help decrease fall risk and to maintain independence in the home. Today we discussed the need for the patient to create paperwork for Advanced directives as well as for the patient to provide this office with a copy of her DOPA paperwork for health care surrogate. 10/12/2016 Appointment: Bonita Villa WPtel: [facility] [facility] - Annual Wellness Visit 10/12/2016 Patient Education: Patient Medication Summary Completed 10/12/2016 Visit Plan: Hypertension - well controlled - continue with current medications, continue with no added salt diet. Pt has been encouraged to exercise daily. The pt has been advised to call the office if there are any acute concerns about change in blood pressure readings at home. Hypothyroidism- surgical-thyroid medication increased by Dr Ford and wants us to manage- repeat in 3 months. 10/08/2016 Appointment: Ginny Pearl WPtel: [phone] (30 min) [facility] 10/08/2016 Patient Education: Patient Medication Summary Completed 10/08/2016 Patient Education: Hypertension Completed 10/08/2016 Visit Plan: Allergies-continue daily anti histamine-call if symptoms do not improve or if any worse S/P total thyroidectomy-now on levothyroxine-repeat labs in 1 month 09/10/2016 Appointment: Ginny Pearl WPtel: [address] [phone] (30 min) Complex 09/10/2016 Patient Education: Patient Medication Summary Completed 09/10/2016 Visit Plan: Hypertension - continue with current medications, continue with no added salt diet. Pt has been encouraged to exercise daily. The pt has been advised to call the office if there are any acute concerns about change in blood pressure readings at home. Bilateral thyroid nodules-voice hoarseness-Dr Ford to do total thyroidectomy on Wednesday Ifhwerezwh-dfehg-eohgsp-due to thyroid nodules-will monitor symptoms for now 08/24/2016 Visit Plan: Hypertension - continue with current medications, continue with no added salt diet. Pt has been encouraged to exercise daily. The pt has been advised to call the office if there are any acute concerns about change in blood pressure readings at home. Bilateral thyroid nodules-voice hoarseness-Dr Ford to do total thyroidectomy on Wednesday Gmyarmjjlz-eleou-lzfnpg-due to thyroid nodules-will monitor symptoms for now ADDENDUM: Doctor's eval of the patient - I, Dr. Medley, personally evaluated the patient with the nurse practitioner. I have reviewed the patient' s chart, I have reviewed the patient's past medical history, problem list, medication list, and personal history. I agree with the documentation by the nurse practitioner in the HPI, physical exam, and the assessment and plan. 08/24/2016 Appointment: Ginny Pearl WPtel: [phone] (30 min) Complex 08/24/2016 Patient Education: Patient Medication Summary Completed 08/24/2016 Visit Plan: Abdominal wkemjuwz-rvunhdcgwmvk-XVI today Bronchitis - acute case of bronchitis identified. Pt has been given antibiotics , breathing treatments as appropriate, and pt has been instructed to call if symptoms are not improved, or if symptoms acutely worsen. Short course of prednisone-obtain chest xray, labs, sputum culture-call if symptom do not resolve or if any worse. Patient and verbalize understanding of plan. HTN- no changes in medications-monitor at home 08/06/2016 Appointment: Ginny Pearl WPtel: [address] [place], [place] [phone] (10 min) Simple 08/06/2016 Patient Education: Patient Medication Summary Completed 08/06/2016 Visit Plan: URI - Pt advised to increase fluids, vitamin C. Discussed natural and expected course of this diagnosis and need to alert me if symptoms do not follow expected course, or if any worse. RX sent to patient' s pharmacy. 07/30/2016 Appointment: Ginny Pearl WPtel: [facility] [phone] (15 min) Moderate 07/30/2016 Patient Education: Patient Medication Summary Completed 07/30/2016 Patient Education: Patient Medication Summary Completed 07/13/2016 Patient Education: Patient Medication Summary Completed 07/10/2016 Visit Plan: Diabetes Mellitus - controlled - per recent FSBS reports. I have recommended for the patient to have follow up labs prior to the next office visit. The patient has been instructed to continue with current medications as previously directed, continue with regular FSBS monitoring to assure continued control of diabetes. Pt to call for any acute concerns, complaints, or if the blood glucose readings are starting to become less controlled. Hypertension - well controlled - continue with current medications, continue with no added salt diet. Pt has been encouraged to exercise daily. The pt has been advised to call the office if there are any acute concerns about change in blood pressure readings at home. Parkinson's Disease - pt has diagnosis of Parkinson's disease with movement disorder impinging upon daily activities. The pt is to be on sinemet as directed, and medications to be adjusted as appropriate for alleviation of the impairment of ADL's. Pt or pt's family is to alert this office if symptoms worsen. 06/22/2016 Appointment: Ginny Pearl WPtel: [phone] [place] (30 min) Complex 06/22/2016 Patient Education: Patient Medication Summary Completed 06/22/2016 Visit Plan: Hypertension - well controlled - continue with current medications, continue with no added salt diet. Pt has been encouraged to exercise daily. The pt has been advised to call the office if there are any acute concerns about change in blood pressure readings at home. Diabetes Mellitus - controlled - per recent FSBS reports. I have recommended for the patient to have follow up labs prior to the next office visit. The patient has been instructed to continue with current medications as previously directed, continue with regular FSBS monitoring to assure continued control of diabetes. Pt to call for any acute concerns, complaints, or if the blood glucose readings are starting to become less controlled. Edema -chronic- pt has been advised to elevate legs to prevent dependent edema, compression has been recommended to help to naturally decrease peripheral edema. Diuretic use has been discussed and pt has been instructed in appropriate use of such medication as necessary to further attempt to reduce peripheral edema. Low sodium-check labs Urinary hesitancy-UA negative 04/27/2016 Appointment: Ginny Pearl WPtel: [address] [phone] (30 min) Complex 04/27/2016 Patient Education: Patient Medication Summary Completed 04/27/2016 Patient Education: Obesity Completed 04/27/2016 Visit Plan: Hypertension - well controlled - continue with current medications, continue with no added salt diet. Pt has been encouraged to exercise daily. The pt has been advised to call the office if there are any acute concerns about change in blood pressure readings at home. Edema - pt has been advised to elevate legs to prevent dependent edema, compression has been recommended to help to naturally decrease peripheral edema. Diuretic use has been discussed and pt has been instructed in appropriate use of such medication as necessary to further attempt to reduce peripheral edema. 03/23/2016 Appointment: Ginny Pearl WPtel: [address] [phone] (30 min) Complex 03/23/2016 Patient Education: Patient Medication Summary Completed 03/23/2016 Patient Education: Obesity Completed 03/23/2016 Visit Plan: Low back pain- the patient was instructed in appropriate posture, need for weight loss to alleviate abdominal obesity that is worsening the patient's back pain. The patient is to call the office if the pain is worsening or does not improve. Kenalog injection today in the office. Refer for PT at [facility]- Low back pain, generalized weakness, Parkinsons Low vltnkx-nkreqzt-fn need for increase sodium intake Hypertension - well controlled - continue with current medications, continue with no added salt diet. Pt has been encouraged to exercise daily. The pt has been advised to call the office if there are any acute concerns about change in blood pressure readings at home. Edema - pt has been advised to elevate legs to prevent dependent edema, compression has been recommended to help to naturally decrease peripheral edema. Diuretic use has been discussed and pt has been instructed in appropriate use of such medication as necessary to further attempt to reduce peripheral edema. DM-check Hgb A1C 01/20/2016 Appointment: Ginny Pearl WPtel: 101[address] [id number] [place] [address] (30 min) Complex 01/20/2016 Patient Education: Patient Medication Summary Completed 01/20/2016 Patient Education: Obesity Completed 01/20/2016 Care Plan: Comp Metabolic Pending 01/20/2016 Care Plan: Cbc With Differential Pending 01/20/2016 Care Plan: %Hba1C LOINC : 04214-6 Pending 01/20/2016 Visit Plan: Diabetes Mellitus - I have recommended for the patient to have follow up labs prior to the next office visit. The patient has been instructed to continue with current medications as previously directed, continue with regular FSBS monitoring to assure continued control of diabetes. Pt to call for any acute concerns, complaints, or if the blood glucose readings are starting to become less controlled. Hypertension - well controlled - continue with current medications, continue with no added salt diet. Pt has been encouraged to exercise daily. The pt has been advised to call the office if there are any acute concerns about change in blood pressure readings at home. Low sodium-recheck labs today 12/16/2015 Patient Education: Patient Medication Summary Completed 12/16/2015 Patient Education: Obesity Completed 12/16/2015 Patient Education: Hypertension Completed 12/16/2015 Visit Plan: HTN-not optimally controlled-recommend patient start on coreg 3.125mg twice daily-patient does not want to add any medication- will monitor at home and follow up in 1 week Low sodium-check labs today 12/09/2015 Appointment: Ginny Pearl WPtel: [phone] [phone] (30 min) Complex 12/09/2015 Patient Education: Patient Medication Summary Completed 12/09/2015 Patient Education: Obesity Completed 12/09/2015 Visit Plan: Hypertension - uncontrolled -monitor at home and follow up in 2 weeks. The patient has been counseled to cut back on salt in diet for a no added salt diet, low fat diet, start an exercise program with low weight bearing exercises and higher aerobic activity for heart health. The patient is to check blood pressure readings as an outpatient and either fax, call, or email the readings to the office next week for practitioner to review. The pt is to call for acute concerns. Diabetes Mellitus - controlled - per recent FSBS reports. I have recommended for the patient to have follow up labs prior to the next office visit. The patient has been instructed to continue with current medications as previously directed, continue with regular FSBS monitoring to assure continued control of diabetes. Pt to call for any acute concerns, complaints, or if the blood glucose readings are starting to become less controlled. Parkinson's Disease - pt has diagnosis of Parkinson's disease with movement disorder impinging upon daily activities. The pt is to be on sinemet as directed, and medications to be adjusted as appropriate for alleviation of the impairment of ADL's. Pt or pt's family is to alert this office if symptoms worsen. 11/25/2015 Appointment: Ginny Pearl WPtel: [address] [place], [place] [phone] (30 min) Complex 11/25/2015 Patient Education: Patient Medication Summary Completed 11/25/2015 Patient Education: Obesity Completed 11/25/2015 Visit Plan: Hypertension - well controlled - continue with current medications, continue with no added salt diet. Pt has been encouraged to exercise daily. The pt has been advised to call the office if there are any acute concerns about change in blood pressure readings at home. Edema - pt has been advised to elevate legs to prevent dependent edema, compression has been recommended to help to naturally decrease peripheral edema. Diuretic use has been discussed and pt has been instructed in appropriate use of such medication as necessary to further attempt to reduce peripheral edema. Will get previous colonoscopy report - will refer if indicated 09/02/2015 Patient Education: Patient Medication Summary Completed 09/02/2015 Patient Education: Hypertension Completed 09/02/2015 Visit Plan: Edema - pt has been advised to elevate legs to prevent dependent edema, compression has been recommended to help to naturally decrease peripheral edema. Diuretic use has been discussed and pt has been instructed in appropriate use of such medication as necessary to further attempt to reduce peripheral edema. 08/05/2015 Appointment: (30 min) Complex 08/05/2015 Patient Education: Patient Medication Summary Completed 08/05/2015 Visit Plan: Edema - pt has been advised to elevate legs to prevent dependent edema, compression has been recommended to help to naturally decrease peripheral edema. Diuretic use has been discussed and pt has been instructed in appropriate use of such medication as necessary to further attempt to reduce peripheral edema. Open wound of right leg-wound instructions provided for patient and his -refer to would care for treatment-patient to call with doses of diuretics so I can adjust. 07/25/2015 Patient Education: Patient Medication Summary Completed 07/25/2015 Patient Education: Obesity Completed 07/25/2015 Appointment: Lab Draw 06/17/2015 Visit Plan: Hypertension - well controlled - continue with current medications, continue with no added salt diet. Pt has been encouraged to exercise daily. The pt has been advised to call the office if there are any acute concerns about change in blood pressure readings at home. Edema - pt has been advised to elevate legs to prevent dependent edema, compression has been recommended to help to naturally decrease peripheral edema. Diuretic use has been discussed and pt has been instructed in appropriate use of such medication as necessary to further attempt to reduce peripheral edema. Diabetes Mellitus - controlled - per recent FSBS reports. I have recommended for the patient to have follow up labs prior to the next office visit. The patient has been instructed to continue with current medications as previously directed, continue with regular FSBS monitoring to assure continued control of diabetes. Pt to call for any acute concerns, complaints, or if the blood glucose readings are starting to become less controlled. Chronic low back pain-STOP IBUPROFEN DUE TO RENAL DISEASE-use hydrocodone prn 06/03/2015 Patient Education: Patient Medication Summary Completed 06/03/2015 Patient Education: Hypertension Completed 06/03/2015 Referral: Dangelo Ford Initiated 04/08/2015 Appointment: Nurse Visit 03/27/2015 Patient Education: Patient Medication Summary Completed 03/27/2015 Patient Education: Patient Medication Summary Completed 03/26/2015 Care Plan: Referral Order SNOMED-CT : [id number] Ordered 03/26/2015 Patient Education: Patient Medication Summary Completed 03/25/2015 Patient Education: Patient Medication Summary Completed 03/22/2015 Patient Education: Patient Medication Summary Completed 03/21/2015 Appointment: Nurse Visit 03/20/2015 Patient Education: Patient Medication Summary Completed 03/20/2015 Visit Plan: Abscess/Cellulitis- left anterior chest - incision and drainage today in the office- The patient was instructed in appropriate wound care. The patient was instructed to use the antibiotic as per RX. The patient is to call for any change in symptoms, increase in size of the lesion, increase in pain. Return tomorrow for wound check and repacking the wound. 03/19/2015 Appointment: (15 min) Moderate 03/19/2015 Patient Education: Patient Medication Summary Completed 03/19/2015 Care Plan: W[place]o ZHENG RTS Pending 03/19/2015 Appointment: Injection 03/08/2015 Patient Education: Patient Medication Summary Completed 03/08/2015 Visit Plan: Edema - pt has been advised to elevate legs to prevent dependent edema, compression has been recommended to help to naturally decrease peripheral edema. Diuretic use has been discussed and pt has been instructed in appropriate use of such medication as necessary to further attempt to reduce peripheral edema. 03/04/2015 Appointment: (15 min) Moderate 03/04/2015 Patient Education: Patient Medication Summary Completed 03/04/2015 Visit Plan: Wound Instructions - Will refer to wound care for Unna Boot and wound management - Pt was instructed to keep the wound clean, wash with antibacterial soap, use triple antibiotic ointment, call if redness, pustular drainage, or any other acute concerns. Hypertension - uncontrolled - The patient has been counseled to cut back on salt in diet for a no added salt diet, low fat diet, start an exercise program with low weight bearing exercises and higher aerobic activity for heart health. The patient is to check blood pressure readings as an outpatient and either fax, call, or email the readings to the office next week for practitioner to review. The pt is to call for acute concerns. Edema - pt has been advised to elevate legs to prevent dependent edema , compression has been recommended to help to naturally decrease peripheral edema. Diuretic use has been discussed and pt has been instructed in appropriate use of such medication as necessary to further attempt to reduce peripheral edema. Take Zaroxolyn with the spironolactone. 02/20/2015 Appointment: (15 min) Moderate 02/20/2015 Patient Education: Patient Medication Summary Completed 02/20/2015 Care Plan: Referral Order SNOMED-CT : [id number] Ordered 02/20/2015 Visit Plan: Hypertension - uncontrolled - the patient's medications have been modified as documented in the visit note. The patient has been counseled to cut back on salt in diet for a no added salt diet, low fat diet, start an exercise program with low weight bearing exercises and higher aerobic activity for heart health. The patient is to check blood pressure readings as an outpatient and either fax, call, or email the readings to the office next week for practitioner to review. The pt is to call for acute concerns. Edema - pt has been advised to elevate legs to prevent dependent edema , compression has been recommended to help to naturally decrease peripheral edema. Diuretic use has been discussed and pt has been instructed in appropriate use of such medication as necessary to further attempt to reduce peripheral edema. take 2 lasix Wednesday morning, 2 Lasix on Wednesday morning, and 2 lasix on morning. on WEDNESDAY start taking the new diuretic - SPIRONOLACTONE 02/11/2015 [id number] ([facility] min) Moderate 02/11/2015 Patient Education: Patient Medication Summary Completed 02/11/2015 Visit Plan: Hypertension and Edema uncontrolled - Pt has been advised as follows: - pt has been advised to elevate legs to prevent dependent edema, compression has been recommended to help to naturally decrease peripheral edema. Diuretic use has been discussed and pt has been instructed in appropriate use of such medication as necessary to further attempt to reduce peripheral edema. Pt has been advised to start on lasix 20mg daily x 1 week, then three times weekly thereafter, and start on potassium 10meq daily x 1 week then three times weekly thereafter. Diabetes Mellitus - controlled - per recent FSBS reports. I have recommended for the patient to have follow up labs prior to the next office visit. The patient has been instructed to continue with current medications as previously directed, continue with regular FSBS monitoring to assure continued control of diabetes. Pt to call for any acute concerns, complaints, or if the blood glucose readings are starting to become less controlled. HTN - uncontrolled - starting on lasix should drop blood pressure. 01/28/2015 Appointment: [phone] [facility] (15 min) Moderate 01/28/2015 Patient Education: Patient Medication Summary Completed 01/28/2015 Patient Education: Hypertension Completed 01/28/2015 Visit Plan: Diabetes Mellitus - controlled - per recent FSBS reports. I have recommended for the patient to have follow up labs prior to the next office visit. The patient has been instructed to continue with current medications as previously directed, continue with regular FSBS monitoring to assure continued control of diabetes. Pt to call for any acute concerns, complaints, or if the blood glucose readings are starting to become less controlled. Hypertension - well controlled - continue with current medications, continue with no added salt diet. Pt has been encouraged to exercise daily. The pt has been advised to call the office if there are any acute concerns about change in blood pressure readings at home. Parkinson's Disease - pt has diagnosis of Parkinson's disease with movement disorder impinging upon daily activities. The pt is to be on sinemet as directed, and medications to be adjusted as appropriate for alleviation of the impairment of ADL's. Pt or pt's family is to alert this office if symptoms worsen. 10/01/2014 Appointment: [phone] [facility] Follow up 10/01/2014 Patient Education: Patient Medication Summary Completed 10/01/2014 Patient Education: Hypertension Completed 10/01/2014 Visit Plan: Hypertension - well controlled - continue with current medications, continue with no added salt diet. Pt has been encouraged to exercise daily. The pt has been advised to call the office if there are any acute concerns about change in blood pressure readings at home. Diabetes Mellitus - controlled - per recent FSBS reports. I have recommended for the patient to have follow up labs prior to the next office visit. The patient has been instructed to continue with current medications as previously directed, continue with regular FSBS monitoring to assure continued control of diabetes. Pt to call for any acute concerns, complaints, or if the blood glucose readings are starting to become less controlled. Parkinson's Disease - pt has diagnosis of Parkinson's disease with movement disorder impinging upon daily activities. The pt is to be on sinemet as directed, and medications to be adjusted as appropriate for alleviation of the impairment of ADL's. Pt or pt's family is to alert this office if symptoms worsen. 05/30/2014 Appointment: [phone] [facility] [place] Follow up 05/30/2014 Patient Education: Patient Medication Summary Completed 05/30/2014 Patient Education: Hypertension Completed 05/30/2014 Visit Plan: Diabetes Mellitus - controlled - per recent FSBS reports. I have recommended for the patient to have follow up labs prior to the next office visit. The patient has been instructed to continue with current medications as previously directed, continue with regular FSBS monitoring to assure continued control of diabetes. Pt to call for any acute concerns, complaints, or if the blood glucose readings are starting to become less controlled. Hypertension - well controlled - continue with current medications, continue with no added salt diet. Pt has been encouraged to exercise daily. The pt has been advised to call the office if there are any acute concerns about change in blood pressure readings at home. Chronic back pain - recommended pt to try a back brace which may help with decrease in his back discomfort. Pt has weakness of lower extremities -recommended pt to start doing exercises. 02/28/2014 Patient Education: Patient Medication Summary Completed 02/28/2014 Patient Education: Hypertension Completed 02/28/2014 Visit Plan: Esophageal ulcers - recommended pt to start on carafate liquid. Pt is to continue with the protonix daily. He will need to see Dr. Ford for another colonoscopy - Discussed this case with Dr. Ford - he will see the patient January 29. 01/23/2014 Appointment: Yoli Medley WPtel: [phone] [facility] Follow up 01/23/2014 Patient Education: Patient Medication Summary Completed 01/23/2014 Visit Plan: Esophageal Reflux - the patient has been counseled against excessive intake of caffeine, spicy foods, peppermint, and cinnamon - all of which can exacerbate esophageal reflux. The patient is to take medications as prescribed and call the office if the symptoms are not improving. Hypertension - well controlled - continue with current medications, continue with no added salt diet. Pt has been encouraged to exercise daily. The pt has been advised to call the office if there are any acute concerns about change in blood pressure readings at home. 12/26/2013 Appointment: [facility] [phone] [facility] Follow [facility] 12/26/2013 Patient Education: Patient Medication Summary Completed 12/26/2013 Patient Education: Hypertension Completed 12/26/2013 Visit Plan: Wound Instructions - Pt was instruced to keep the wound clean, wash with antibacterial soap, use triple antibiotic ointment, call if redness, pustular drainage, or any other acute conerns. 10/24/2013 App[facility]ment: [facility]el[facility] [phone] [facility] Surgical Procedure 10/24/2013 Patient Education: Patient Medication Summary Completed 10/24/2013 Visit Plan: Diabetes Mellitus - controlled - per recent FSBS reports. I have recommended for the patient to have follow up labs prior to the next office visit. The patient has been instructed to continue with current medications as previously directed, continue with regular FSBS monitoring to assure continued control of diabetes. Pt to call for any acute concerns, complaints, or if the blood glucose readings are starting to become less controlled. Sleep apnea - pt uses oxygen at night, he states that "years ago" he had a sleep study, qualified for Cpap, but could not get used to the mask. He needs to have repeat studies to see if he can now tolerate the mask/or nasal pillows that can be used to treat the sleep apnea. Elevated PSA - pt has been prescribed finasteride by Dr. Staton, but has not been taking the medication regularly. He has been advised that he needs to take the medication regularly. Precancerous skin lesions on face - bilateral upper cheeks - needs cauterized. Pt to RTC for removal of the lesions. 10/17/2013 Appointment: [facility] [phone] [facility] Follow up 10/17/2013 Patient Education: Patient Medication Summary Completed 10/17/2013 Patient Education: Hypertension Completed 10/17/2013 Visit Plan: Hypertension - well controlled - continue with current medications, continue with no added salt diet. Pt has been encouraged to exercise daily. The pt has been advised to call the office if there are any acute concerns about change in blood pressure readings at home. Diabetes Mellitus - controlled - per recent FSBS reports. I have recommended for the patient to have follow up labs prior to the next office visit. The patient has been instructed to continue with current medications as previously directed, continue with regular FSBS monitoring to assure continued control of diabetes. Pt to call for any acute concerns, complaints, or if the blood glucose readings are starting to become less controlled. Sleep apnea - pt uses oxygen at night via an oxygenator - he states that he feels better when he uses the oxygen. He is planning on going on a trip and would like to have his Oxygen company - [employer] - help with arranging oxygen when he is in [facility]. 07/24/2013 Appointment: [facility] Med[facility] [phone] [facility] Follow up 07/24/2013 Patient Education: Patient Medication Summary Completed 07/24/2013 Patient Education: Hypertension Completed 07/24/2013 Appointment: Ginny Pearl [facility]Ptel[facility] [phone] [facility] [place] Lab Draw 05/05/2013 Patient Education: Patient Medication Summary Completed 05/05/2013 Patient Education: Hypertension Completed 05/05/2013 Appointment: [facility] Med[facility]el[facility] [phone] [facility] [place] Follow up 05/01/2013 Visit Plan: Diabetes Mellitus - Uncontrolled - per recent FSBS reports. I have recommended for the patient to have follow up labs prior to the next office visit. The patient has been instructed to continue with current medications as previously directed, continue with regular FSBS monitoring to assure continued control of diabetes. Pt to call for any acute concerns, complaints, or if the blood glucose readings are starting to become less controlled. I have recommended for the patient to follow more strictly to the diabetic diet as discussed in clinic to allow for greater blood glucose control. Hypertension - well controlled - continue with current medications, continue with no added salt diet. Pt has been encouraged to exercise daily. The pt has been advised to call the office if there are any acute concerns about change in blood pressure readings at home. Hyperlipidemia - pt has been counseled about appropriate diet, exercise, and need for low fat food choices. I have discussed the need for the patient to take medications as prescribed. If the patient has negative side effects from the medication, they are to CALL the office and not abruptly discontinue the medication without discussion with a practicioner in the office. We will check labs in 3-6 months for follow up on the patient's chronic medical problem and to assure normal liver response to medications. 04/24/2013 Patient Education: Patient Medication Summary Completed 04/24/2013 Patient Education: Hypertension Completed 04/24/2013 Visit Plan: Diabetes Mellitus - controlled - per recent FSBS reports. I have recommended for the patient to have follow up labs prior to the next office visit. The patient has been instructed to continue with current medications as previously directed, continue with regular FSBS monitoring to assure continued control of diabetes. Pt to call for any acute concerns, complaints, or if the blood glucose readings are starting to become less controlled. 03/20/2013 Patient Education: Patient Medication Summary Completed 03/20/2013 Visit Plan: Diabetes Mellitus - Uncontrolled - per recent FSBS reports. I have recommended for the patient to have follow up labs prior to the next office visit. The patient has been instructed to continue with current medications as previously directed, continue with regular FSBS monitoring to assure continued control of diabetes. Pt to call for any acute concerns, complaints, or if the blood glucose readings are starting to become less controlled. I have recommended for the patient to follow more strictly to the diabetic diet as discussed in clinic to allow for greater blood glucose control. INCREASE LANTUS TO 16 UNITS DAILY. 01/19/2013 Appointment: [phone] [facility] Follow [facility] 01/19/2013 Patient Education: Patient Medication Summary Completed 01/19/2013 Visit Plan: EO-[id number] today in the office- wound Instructions - Pt was instruced to keep the wound clean, wash with antibacterial soap, use triple antibiotic ointment, call if redness, pustular drainage, or any other acute conerns. 12/26/2012 Appointment: Ginny Pearl [facility]Ptel[facility] [phone] [facility] [place] 12/26/2012 Patient Education: Patient Medication Summary Completed 12/26/2012 Visit Plan: Diabetes Mellitus - Uncontrolled - per recent FSBS reports. I have recommended for the patient to have follow up labs prior to the next office visit. The patient has been instructed to continue with current medications as previously directed, continue with regular FSBS monitoring to assure continued control of diabetes. Pt to call for any acute concerns, complaints, or if the blood glucose readings are starting to become less controlled. I have recommended for the patient to follow more strictly to the diabetic diet as discussed in clinic to allow for greater blood glucose control.Pt on lantus - increased dose to 12 units daily. Pt instructed to take blood glucose readings at least 2 hours AFTER having eaten or drank anything that has ability to increase blood glucose. 12/21/2012 Appointment: [facility] Med[facility]el[phone] [facility] Follow [facility] 12/21/2012 Patient Education: Patient Medication Summary Completed 12/21/2012 Visit Plan: Parkinsons disease - rx for sinemet 25/100mg 1/ 2 pill in morning and 1/2 pill in evening, pt to let us know if the symptoms improve. Referral to Miguel at [facility] for gait instability. Diabetes Mellitus - Uncontrolled - per recent FSBS reports. I have recommended for the patient to have follow up labs prior to the next office visit. The patient has been instructed to continue with current medications as previously directed, continue with regular FSBS monitoring to assure continued control of diabetes. Pt to call for any acute concerns, complaints, or if the blood glucose readings are starting to become less controlled. I have recommended for the patient to follow more strictly to the diabetic diet as discussed in clinic to allow for greater blood glucose control. Oral medications no longer appear to be enough for patient, he was started on : Lantus 5 units at bedtime to be given to pt as a sample. Back pain and gait instability - recommended christina at [facility] - continue with back brace as it offers support for the patient. 11/30/2012 Appointment: [facility] Med[facility]el[phone] [facility] Follow [facility] 11/30/2012 Patient Education: Patient Medication Summary Completed 11/30/2012 Patient Education: Patient Medication Summary Completed 11/25/2012 Patient Education: Hypertension Completed 11/25/2012 Visit Plan: Abdominal pain - pt has been having increasing pain in his upper right abdomen - pt has been having increased pain. Pt has been eating a more vegan diet - Wednesday night he thinks he ate salad and lentil stew and then had pain when he woke up on Saturday morining. Pt will have gallbladder ultrasound and I have recommended that we start him on flagyl 500mg tid x 10. Hypertension - well controlled - continue with current medications, continue with no added salt diet. Pt has been encouraged to exercise daily. The pt has been advised to call the office if there are any acute concerns about change in blood pressure readings at home. DM - FSBS have improved on a lower fat low cholesterol diet, but he has been eating more carbohydrates than he had been previously. 05/30/2012 Appointment: Y[facility] Med[facility]el[facility] [phone] [facility] [facility]u Follow up 05/30/2012 Patient Education: Patient Medication Summary Completed 05/30/2012 Patient Education: Hypertension Completed 05/30/2012 Visit Plan: Diarrhea - recommended bland diet, low fat diet , start on probiotic, and rehydrate with gatorade-like product. Pt to call if feeling worse, diarrhea becomes bloody, or does not improve with above recommendations. Pt to call for acute worsening of stomach upset or stomach pain. Probiotic twice daily. 04/26/2012 Patient Education: Patient Medication Summary Completed 04/26/2012 Visit Plan: Hypertension - well controlled - continue with current medications, continue with no added salt diet. Pt has been encouraged to exercise daily. The pt has been advised to call the office if there are any acute concerns about change in blood pressure readings at home. Diabetes Mellitus - controlled - per recent FSBS reports. I have recommended for the patient to have follow up labs prior to the next office visit. The patient has been instructed to continue with current medications as previously directed, continue with regular FSBS monitoring to assure continued control of diabetes. Pt to call for any acute concerns, complaints, or if the blood glucose readings are starting to become less controlled. Claw toes, flat feet - recommended pt to seek support for his arches via curtains and draperies salesperson evyury and perhaps arch supports to be custom made or custom fitted. 04/14/2012 Appointment: Y[facility] Med[facility]el[facility] [phone] [facility] Follow up 04/14/2012 Patient Education: Patient Medication Summary Completed 04/14/2012 Patient Education: Hypertension Completed 04/14/2012 Visit Plan: Rash- Discussed natural and expected course of this diagnosis and need to alert me if symtpoms do not follow expected course, or if any worse. RX sent to patient's pharmacy. 02/22/2012 Appointment: Ginny Pearl WPtel[facility] [phone] [facility] 02/22/2012 Patient Education: Patient Medication Summary Completed 02/22/2012 Visit Plan: Diabetes Mellitus - Uncontrolled - per recent FSBS reports. I have recommended for the patient to have follow up labs prior to the next office visit. The patient has been instructed to continue with current medications as previously directed, continue with regular FSBS monitoring to assure continued control of diabetes. Pt to call for any acute concerns, complaints, or if the blood glucose readings are starting to become less controlled. I have recommended for the patient to follow more strictly to the diabetic diet as discussed in clinic to allow for greater blood glucose control. RECOMMENDED CHECKING HGBA1c Hypertension - well controlled - continue with current medications, continue with no added salt diet. Pt has been encouraged to exercise daily. The pt has been advised to call the office if there are any acute concerns about change in blood pressure readings at home. Constipation - uncontrolled - I have discussed with the patient the need for adequate fiber and water intake to facilitate soft, easily passed stools. The pt noted understanding of our conversation. I have given the patient a recipe for "power pudding" - equal parts, bran flakes, prune juice, and apple sauce. The pt is to call if symptoms not improved on this regimen. 01/13/2012 Appointment: Yoli Med[facility]Ptel[facility] [phone] [facility] [facility] Patient Preventative visit 01/13/2012 Patient Education: Patient Medication Summary Completed 01/13/2012 Patient Education: High Blood Pressure: Essential Hypertension Completed 2011 Visit Plan: Hypertension - well controlled - continue with current medications, continue with no added salt diet. Pt has been encouraged to exercise daily. The pt has been advised to call the office if there are any acute concerns about change in blood pressure readings at home. Diabetes Mellitus - controlled - per recent FSBS reports. I have recommended for the patient to have follow up labs prior to the next office visit. The patient has been instructed to continue with current medications as previously directed, continue with regular FSBS monitoring to assure continued control of diabetes. Pt to call for any acute concerns, complaints, or if the blood glucose readings are starting to become less controlled. 09/02/2011 Appointment: Yoil Medley WPtel: [phone] [facility] Other 09/02/2011 Patient Education: Patient Medication Summary Completed 09/02/2011 Patient Education: High Blood Pressure: Essential Hypertension Completed 2011 Appointment: Ginny Pearl WPtel: [phone] [facility] [place] [address] Lab Draw 08/06/2011 Patient Education: Patient Medication Summary Completed 08/06/2011 Visit Plan: Low back pain- the patient was instructed in appropriate posture, need for weight loss to alleviate abdominal obesity that is worsening the patient's back pain.. The pt is to use prn antiinflammatories to manage acute pain. The patient is to call the office if the pain is worsening or does not improve. Diabetes Mellitus - Uncontrolled - per pt report of recent FSBS averaging in the 150 - 160 range. I have recommended for the patient to have follow up labs prior to the next office visit. The patient has been instructed to continue with current medications as previously directed, continue with regular FSBS monitoring to assure continued control of diabetes. Pt to call for any acute concerns, complaints, or if the blood glucose readings are starting to become less controlled. I have recommended for the patient to follow more strictly to the diabetic diet as discussed in clinic to allow for greater blood glucose control. He did not purchase the kobiglyze due to excessive cost and he does not have Medicare D plan. Pt is back to metformin bid. 08/05/2011 Appointment: Yoli Medley WPtel: [phone] [facility] Other 08/05/2011 Patient Education: Patient Medication Summary Completed 08/05/2011 Patient Education: .Amazing charts Exercise for Sciatica Completed 08/05/2011 Patient Education: .Amazing charts- low back pain Completed 08/05/2011 Visit Plan: Chronic hyponatremia - Increase fluids - to include more than just water, perhaps gatorade/ zero water or other fluids. Nodule under left breast - will do mammogram and ultrasound. Diabetes Mellitus - Uncontrolled - per recent FSBS reports. I have recommended for the patient to have follow up labs prior to the next office visit. The patient has been instructed to continue with current medications as previously directed, continue with regular FSBS monitoring to assure continued control of diabetes. Pt to call for any acute concerns, complaints, or if the blood glucose readings are starting to become less controlled. I have recommended for the patient to follow more strictly to the diabetic diet as discussed in clinic to allow for greater blood glucose control. Hypertension - well controlled - continue with current medications, continue with no added salt diet. Pt has been encouraged to exercise daily. The pt has been advised to call the office if there are any acute concerns about change in blood pressure readings at home. 07/01/2011 Appointment: Yoli Medley WPtel: [phone] [facility] Other 07/01/2011 Patient Education: Patient Medication Summary Completed 07/01/2011 Patient Education: High Blood Pressure: Essential Hypertension Completed 2011 Appointment: Yoli Medley WPtel: [phone] [facility] Lab Draw 06/25/2011 Patient Education: Patient Medication Summary Completed 06/25/2011 Patient Education: High Blood Pressure: Essential Hypertension Completed 2011 Referral: [facility] WPtel: 1 [facility] Referral Initiated Referral: Dangelo Ford Referral Initiated Instructions Comment PATIENT IS TO CHECK BLOOD PRESSURE AND HEART RATE TWO TIMES DAILY AND BRING IN A RECORD OF THE READINGS INTO THE OFFICE IN TWO WEEKS. . Hypertension - uncontrolled -monitor at home and follow up in 2 weeks. The patient has been counseled to cut back on salt in diet for a no added salt diet , low fat diet, start an exercise program with low weight bearing exercises and higher aerobic activity for heart health. The patient is to check blood pressure readings as an outpatient and either fax , call, or email the readings to the office next week for practitioner to review. The pt is to call for acute concerns. Diabetes Mellitus - controlled - per recent FSBS reports. I have recommended for the patient to have follow up labs prior to the next office visit. The patient has been instructed to continue with current medications as previously directed, continue with regular FSBS monitoring to assure continued control of diabetes. Pt to call for any acute concerns, complaints, or if the blood glucose readings are starting to become less controlled. Parkinson's Disease - pt has diagnosis of Parkinson's disease with movement disorder impinging upon daily activities. The pt is to be on sinemet as directed, and medications to be adjusted as appropriate for alleviation of the impairment of ADL's. Pt or pt's family is to alert this office if symptoms worsen. . Diabetes Mellitus - Uncontrolled - per recent FSBS reports. I have recommended for the patient to have follow up labs prior to the next office visit. The patient has been instructed to continue with current medications as previously directed, continue with regular FSBS monitoring to assure continued control of diabetes. Pt to call for any acute concerns, complaints, or if the blood glucose readings are starting to become less controlled. I have recommended for the patient to follow more strictly to the diabetic diet as discussed in clinic to allow for greater blood glucose control.Pt on lantus - increased dose to 12 units daily. Pt instructed to take blood glucose readings at least 2 hours AFTER having eaten or drank anything that has ability to increase blood glucose. CALL IF YOUR BACK PAIN DOES NOT IMPROVE OR IF ANY WORSE CHECK LABS STOP EXTRA SODIUM REFER TO [facility] DX PARKINSONS, BACK PAIN, WEAKNESS . Low back pain- the patient was instructed in appropriate posture, need for weight loss to alleviate abdominal obesity that is worsening the patient's back pain. The patient is to call the office if the pain is worsening or does not improve. Kenalog injection today in the office. Refer for PT at [facility] Low back pain, generalized weakness, Parkinsons Low xmypvl-ilyewek-yz need for increase sodium intake Hypertension - well controlled - continue with current medications, continue with no added salt diet. Pt has been encouraged to exercise daily. The pt has been advised to call the office if there are any acute concerns about change in blood pressure readings at home. Edema - pt has been advised to elevate legs to prevent dependent edema, compression has been recommended to help to naturally decrease peripheral edema. Diuretic use has been discussed and pt has been instructed in appropriate use of such medication as necessary to further attempt to reduce peripheral edema. DM-check Hgb A1C . Low back pain- the patient was instructed in appropriate posture, need for weight loss to alleviate abdominal obesity that is worsening the patient's back pain.. The pt is to use prn antiinflammatories to manage acute pain. The patient is to call the office if the pain is worsening or does not improve. Diabetes Mellitus - Uncontrolled - per pt report of recent FSBS averaging in the 150 - 160 range. I have recommended for the patient to have follow up labs prior to the next office visit. The patient has been instructed to continue with current medications as previously directed, continue with regular FSBS monitoring to assure continued control of diabetes. Pt to call for any acute concerns, complaints, or if the blood glucose readings are starting to become less controlled. I have recommended for the patient to follow more strictly to the diabetic diet as discussed in clinic to allow for greater blood glucose control. He did not purchase the kobiglyze due to excessive cost and he does not have Medicare D plan. Pt is back to metformin bid. . Diabetes Mellitus - controlled - per recent FSBS reports. I have recommended for the patient to have follow up labs prior to the next office visit. The patient has been instructed to continue with current medications as previously directed, continue with regular FSBS monitoring to assure continued control of diabetes. Pt to call for any acute concerns, complaints, or if the blood glucose readings are starting to become less controlled. INCREASE LANTUS TO 16 UNITS DAILY. Declined Procedure: (Q2036) FLULAVAL VACC, 3 YRS & >, IM; Declined Reason: Patient Declined. INCREASE LANTUS TO 16 UNITS DAILY.. Diabetes Mellitus - Uncontrolled - per recent FSBS reports. I have recommended for the patient to have follow up labs prior to the next office visit. The patient has been instructed to continue with current medications as previously directed, continue with regular FSBS monitoring to assure continued control of diabetes. Pt to call for any acute concerns, complaints, or if the blood glucose readings are starting to become less controlled. I have recommended for the patient to follow more strictly to the diabetic diet as discussed in clinic to allow for greater blood glucose control. INCREASE LANTUS TO 16 UNITS DAILY. . Wound Instructions - Pt was instruced to keep the wound clean, wash with antibacterial soap, use triple antibiotic ointment, call if redness, pustular drainage, or any other acute conerns. . Chronic hyponatremia - Increase fluids - to include more than just water, perhaps gatorade/ zero water or other fluids. Nodule under left breast - will do mammogram and ultrasound. Diabetes Mellitus - Uncontrolled - per recent FSBS reports. I have recommended for the patient to have follow up labs prior to the next office visit. The patient has been instructed to continue with current medications as previously directed, continue with regular FSBS monitoring to assure continued control of diabetes. Pt to call for any acute concerns, complaints, or if the blood glucose readings are starting to become less controlled. I have recommended for the patient to follow more strictly to the diabetic diet as discussed in clinic to allow for greater blood glucose control. Hypertension - well controlled - continue with current medications, continue with no added salt diet. Pt has been encouraged to exercise daily. The pt has been advised to call the office if there are any acute concerns about change in blood pressure readings at home. . Hypertension - continue with current medications, continue with no added salt diet. Pt has been encouraged to exercise daily. The pt has been advised to call the office if there are any acute concerns about change in blood pressure readings at home. Diabetes Mellitus - controlled - per recent FSBS reports. I have recommended for the patient to have follow up labs prior to the next office visit. The patient has been instructed to continue with current medications as previously directed, continue with regular FSBS monitoring to assure continued control of diabetes. Pt to call for any acute concerns, complaints, or if the blood glucose readings are starting to become less controlled. Hypothyroidism - pt with chronic hypothyroidism, continue with current medication, will monitor pt to signs or symptoms of lack of adequate supplementation. Pt is to continue with current dose of medication unless directed otherwise. Check labs at regular intervals wither q 3 months or q 6 months based on previous levels of control. . Diarrhea - recommended bland diet, low fat diet, start on probiotic, and rehydrate with gatorade-like product. Pt to call if feeling worse, diarrhea becomes bloody, or does not improve with above recommendations. Pt to call for acute worsening of stomach upset or stomach pain. Probiotic twice daily. . Hypertension and Edema uncontrolled - Pt has been advised as follows: - pt has been advised to elevate legs to prevent dependent edema, compression has been recommended to help to naturally decrease peripheral edema. Diuretic use has been discussed and pt has been instructed in appropriate use of such medication as necessary to further attempt to reduce peripheral edema. Pt has been advised to start on lasix 20mg daily x 1 week, then three times weekly thereafter, and start on potassium 10meq daily x 1 week then three times weekly thereafter. Diabetes Mellitus - controlled - per recent FSBS reports. I have recommended for the patient to have follow up labs prior to the next office visit. The patient has been instructed to continue with current medications as previously directed, continue with regular FSBS monitoring to assure continued control of diabetes. Pt to call for any acute concerns, complaints, or if the blood glucose readings are starting to become less controlled. HTN - uncontrolled - starting on lasix should drop blood pressure. . Hypertension - well controlled - continue with current medications, continue with no added salt diet. Pt has been encouraged to exercise daily. The pt has been advised to call the office if there are any acute concerns about change in blood pressure readings at home. Vmivyrbczpxzfp-tcmndktr-xicqfkb medication increased by Dr Ford and wants us to manage-repeat in 3 months. . Hypertension - continue with current medications, continue with no added salt diet. Pt has been encouraged to exercise daily. The pt has been advised to call the office if there are any acute concerns about change in blood pressure readings at home. Bilateral thyroid nodules-voice hoarseness-Dr Ford to do total thyroidectomy on Wednesday Jwqjyllxzu-wtuts-lvceoi-due to thyroid nodules-will monitor symptoms for now . Hypertension - continue with current medications, continue with no added salt diet. Pt has been encouraged to exercise daily. The pt has been advised to call the office if there are any acute concerns about change in blood pressure readings at home. Bilateral thyroid nodules-voice hoarseness-Dr Ford to do total thyroidectomy on Wednesday Dsutiyfodr-ztxxd-lzhaad-due to thyroid nodules-will monitor symptoms for now ADDENDUM: Doctor's eval of the patient - I, Dr. Medley, personally evaluated the patient with the nurse practitioner. I have reviewed the patient's chart, I have reviewed the patient's past medical history, problem list, medication list, and personal history. I agree with the documentation by the nurse practitioner in the HPI, physical exam, and the assessment and plan. . Hypertension - well controlled - continue with current medications, continue with no added salt diet. Pt has been encouraged to exercise daily. The pt has been advised to call the office if there are any acute concerns about change in blood pressure readings at home. Diabetes Mellitus - controlled - per recent FSBS reports. I have recommended for the patient to have follow up labs prior to the next office visit. The patient has been instructed to continue with current medications as previously directed, continue with regular FSBS monitoring to assure continued control of diabetes. Pt to call for any acute concerns, complaints, or if the blood glucose readings are starting to become less controlled. Hypothyroidism - pt with chronic hypothyroidism, continue with current medication, will monitor pt to signs or symptoms of lack of adequate supplementation. Pt is to continue with current dose of medication unless directed otherwise. Check labs at regular intervals wither q 3 months or q 6 months based on previous levels of control. . Abscess/Cellulitis- left anterior chest -incision and drainage today in the office- The patient was instructed in appropriate wound care. The patient was instructed to use the antibiotic as per RX. The patient is to call for any change in symptoms, increase in size of the lesion, increase in pain. Return tomorrow for wound check and repacking the wound. . Rash- Discussed natural and expected course of this diagnosis and need to alert me if symtpoms do not follow expected course, or if any worse. RX sent to patient's pharmacy. take 2 lasix Wednesday, 2 Lasix on Wednesday , and 2 lasix on . on WEDNESDAY start taking the new diuretic - SPIRONOLACTONE . Hypertension - uncontrolled - the patient's medications have been modified as documented in the visit note. The patient has been counseled to cut back on salt in diet for a no added salt diet, low fat diet, start an exercise program with low weight bearing exercises and higher aerobic activity for heart health. The patient is to check blood pressure readings as an outpatient and either fax , call, or email the readings to the office next week for practitioner to review. The pt is to call for acute concerns. Edema - pt has been advised to elevate legs to prevent dependent edema, compression has been recommended to help to naturally decrease peripheral edema. Diuretic use has been discussed and pt has been instructed in appropriate use of such medication as necessary to further attempt to reduce peripheral edema. take 2 lasix Wednesday morning, 2 Lasix on Wednesday, and 2 lasix on . on WEDNESDAY start taking the new diuretic - SPIRONOLACTONE TRY HYDROCODONE FOR PAIN INSTEAD OF THE IBUPROFEN CALL IF BACK PAIN DOES NOT IMROVE OR IF ANY WORSE . Hypertension - well controlled - continue with current medications, continue with no added salt diet. Pt has been encouraged to exercise daily. The pt has been advised to call the office if there are any acute concerns about change in blood pressure readings at home. Edema - pt has been advised to elevate legs to prevent dependent edema, compression has been recommended to help to naturally decrease peripheral edema. Diuretic use has been discussed and pt has been instructed in appropriate use of such medication as necessary to further attempt to reduce peripheral edema. Diabetes Mellitus - controlled - per recent FSBS reports. I have recommended for the patient to have follow up labs prior to the next office visit. The patient has been instructed to continue with current medications as previously directed, continue with regular FSBS monitoring to assure continued control of diabetes. Pt to call for any acute concerns, complaints, or if the blood glucose readings are starting to become less controlled. Chronic low back pain-STOP IBUPROFEN DUE TO RENAL DISEASE-use hydrocodone prn . Esophageal Reflux - the patient has been counseled against excessive intake of caffeine, spicy foods, peppermint, and cinnamon - all of which can exacerbate esophageal reflux. The patient is to take medications as prescribed and call the office if the symptoms are not improving. Hypertension - well controlled - continue with current medications, continue with no added salt diet. Pt has been encouraged to exercise daily. The pt has been advised to call the office if there are any acute concerns about change in blood pressure readings at home. CXR and [facility] Lab work- CBC, CMP, BNP . Abdominal ffdakpwb-xsvdaxlijxtv-MLU today Bronchitis - acute case of bronchitis identified. Pt has been given antibiotics , breathing treatments as appropriate, and pt has been instructed to call if symptoms are not improved, or if symptoms acutely worsen. Short course of prednisone-obtain chest xray, labs, sputum culture-call if symptom do not resolve or if any worse. Patient and verbalize understanding of plan. HTN-no changes in medications-monitor at home . Allergies-continue daily anti histamine-call if symptoms do not improve or if any worse S/P total thyroidectomy-now on levothyroxine-repeat labs in 1 month CONTINUE LASIX (FUROSEMIDE) DAILY check labs-cbc, cmp . Edema - pt has been advised to elevate legs to prevent dependent edema, compression has been recommended to help to naturally decrease peripheral edema. Diuretic use has been discussed and pt has been instructed in appropriate use of such medication as necessary to further attempt to reduce peripheral edema. . Rash - The patient was instructed to use the ointment as per RX. The patient is to call for any change in symptoms, increase in size of the lesion, increase in pain, worsening redness, warmth, discharge. daily anti histamine such as zyrtec kenalog injection today in the office-monitor blood sugars closely over the next few days . URI - Pt advised to increase fluids, vitamin C. Discussed natural and expected course of this diagnosis and need to alert me if symptoms do not follow expected course, or if any worse. RX sent to patient's pharmacy. . Diabetes Mellitus - Uncontrolled - per recent FSBS reports. I have recommended for the patient to have follow up labs prior to the next office visit. The patient has been instructed to continue with current medications as previously directed, continue with regular FSBS monitoring to assure continued control of diabetes. Pt to call for any acute concerns, complaints, or if the blood glucose readings are starting to become less controlled. I have recommended for the patient to follow more strictly to the diabetic diet as discussed in clinic to allow for greater blood glucose control. RECOMMENDED CHECKING HGBA1c Hypertension - well controlled - continue with current medications, continue with no added salt diet. Pt has been encouraged to exercise daily. The pt has been advised to call the office if there are any acute concerns about change in blood pressure readings at home. Constipation - uncontrolled - I have discussed with the patient the need for adequate fiber and water intake to facilitate soft, easily passed stools. The pt noted understanding of our conversation. I have given the patient a recipe for "power pudding" - equal parts, bran flakes, prune juice, and apple sauce. The pt is to call if symptoms not improved on this regimen. . Hypertension - well controlled - continue with current medications, continue with no added salt diet. Pt has been encouraged to exercise daily. The pt has been advised to call the office if there are any acute concerns about change in blood pressure readings at home. Diabetes Mellitus - controlled - per recent FSBS reports. I have recommended for the patient to have follow up labs prior to the next office visit. The patient has been instructed to continue with current medications as previously directed, continue with regular FSBS monitoring to assure continued control of diabetes. Pt to call for any acute concerns, complaints, or if the blood glucose readings are starting to become less controlled. dr send a script for sucralfate liquid to be taken 4 times a day - call if the rx is more than 50$ for a one month supply. . Esophageal ulcers - recommended pt to start on carafate liquid. Pt is to continue with the protonix daily. He will need to see Dr. Ford for another colonoscopy - Discussed this case with Dr. Ford - he will see the patient January 29. . Abdominal pain - pt has been having increasing pain in his upper right abdomen - pt has been having increased pain. Pt has been eating a more vegan diet - Wednesday night he thinks he ate salad and lentil stew and then had pain when he woke up on Wednesday morining. Pt will have gallbladder ultrasound and I have recommended that we start him on flagyl 500mg tid x 10. Hypertension - well controlled - continue with current medications, continue with no added salt diet. Pt has been encouraged to exercise daily. The pt has been advised to call the office if there are any acute concerns about change in blood pressure readings at home. DM - FSBS have improved on a lower fat low cholesterol diet, but he has been eating more carbohydrates than he had been previously. . Diabetes Mellitus - I have recommended for the patient to have follow up labs prior to the next office visit. The patient has been instructed to continue with current medications as previously directed, continue with regular FSBS monitoring to assure continued control of diabetes. Pt to call for any acute concerns, complaints, or if the blood glucose readings are starting to become less controlled. Hypertension - well controlled - continue with current medications, continue with no added salt diet. Pt has been encouraged to exercise daily. The pt has been advised to call the office if there are any acute concerns about change in blood pressure readings at home. Low sodium-recheck labs today . HTN-not optimally controlled-recommend patient start on coreg 3.125mg twice daily-patient does not want to add any medication-will monitor at home and follow up in 1 week Low sodium-check labs today . Diabetes Mellitus - controlled - per recent FSBS reports. I have recommended for the patient to have follow up labs prior to the next office visit. The patient has been instructed to continue with current medications as previously directed, continue with regular FSBS monitoring to assure continued control of diabetes. Pt to call for any acute concerns, complaints, or if the blood glucose readings are starting to become less controlled. Hypertension - well controlled - continue with current medications, continue with no added salt diet. Pt has been encouraged to exercise daily. The pt has been advised to call the office if there are any acute concerns about change in blood pressure readings at home. Parkinson's Disease - pt has diagnosis of Parkinson's disease with movement disorder impinging upon daily activities. The pt is to be on sinemet as directed, and medications to be adjusted as appropriate for alleviation of the impairment of ADL's. Pt or pt's family is to alert this office if symptoms worsen. REFER TO OT AT [facility] REFILL LASIX-DAILY X 1 WEEK THEN THREE TIMES PER WEEK . Hypertension - well controlled - continue with current medications, continue with no added salt diet. Pt has been encouraged to exercise daily. The pt has been advised to call the office if there are any acute concerns about change in blood pressure readings at home. Edema - pt has been advised to elevate legs to prevent dependent edema, compression has been recommended to help to naturally decrease peripheral edema. Diuretic use has been discussed and pt has been instructed in appropriate use of such medication as necessary to further attempt to reduce peripheral edema. . Diabetes Mellitus - controlled - per recent FSBS reports. I have recommended for the patient to have follow up labs prior to the next office visit. The patient has been instructed to continue with current medications as previously directed, continue with regular FSBS monitoring to assure continued control of diabetes. Pt to call for any acute concerns, complaints, or if the blood glucose readings are starting to become less controlled. Hypertension - well controlled - continue with current medications, continue with no added salt diet. Pt has been encouraged to exercise daily. The pt has been advised to call the office if there are any acute concerns about change in blood pressure readings at home. Chronic back pain - recommended pt to try a back brace which may help with decrease in his back discomfort. Pt has weakness of lower extremities -recommended pt to start doing exercises. call and let me know if you are taking lasix/furosemide and /or metolazone NEVILLE wraps to lower legs Appointment with [facility]- July 29 at 1pm. . Edema - pt has been advised to elevate legs to prevent dependent edema, compression has been recommended to help to naturally decrease peripheral edema. Diuretic use has been discussed and pt has been instructed in appropriate use of such medication as necessary to further attempt to reduce peripheral edema. Open wound of right leg-wound instructions provided for patient and his - refer to would care for treatment-patient to call with doses of diuretics so I can adjust. COME BACK FOR FASTING BLOODWORK . Diabetes Mellitus - Uncontrolled - per recent FSBS reports. I have recommended for the patient to have follow up labs prior to the next office visit. The patient has been instructed to continue with current medications as previously directed, continue with regular FSBS monitoring to assure continued control of diabetes. Pt to call for any acute concerns, complaints, or if the blood glucose readings are starting to become less controlled. I have recommended for the patient to follow more strictly to the diabetic diet as discussed in clinic to allow for greater blood glucose control. Hypertension - well controlled - continue with current medications, continue with no added salt diet. Pt has been encouraged to exercise daily. The pt has been advised to call the office if there are any acute concerns about change in blood pressure readings at home. Hyperlipidemia - pt has been counseled about appropriate diet, exercise, and need for low fat food choices. I have discussed the need for the patient to take medications as prescribed. If the patient has negative side effects from the medication, they are to CALL the office and not abruptly discontinue the medication without discussion with a practicioner in the office. We will check labs in 3-6 months for follow up on the patient's chronic medical problem and to assure normal liver response to medications. check labs and UA . Hypertension - well controlled - continue with current medications, continue with no added salt diet. Pt has been encouraged to exercise daily. The pt has been advised to call the office if there are any acute concerns about change in blood pressure readings at home. Diabetes Mellitus - controlled - per recent FSBS reports. I have recommended for the patient to have follow up labs prior to the next office visit. The patient has been instructed to continue with current medications as previously directed, continue with regular FSBS monitoring to assure continued control of diabetes. Pt to call for any acute concerns, complaints, or if the blood glucose readings are starting to become less controlled. Edema -chronic- pt has been advised to elevate legs to prevent dependent edema, compression has been recommended to help to naturally decrease peripheral edema. Diuretic use has been discussed and pt has been instructed in appropriate use of such medication as necessary to further attempt to reduce peripheral edema. Low sodium-check labs Urinary hesitancy-UA negative . Edema - pt has been advised to elevate legs to prevent dependent edema, compression has been recommended to help to naturally decrease peripheral edema. Diuretic use has been discussed and pt has been instructed in appropriate use of such medication as necessary to further attempt to reduce peripheral edema. Will start Zaroxolyn (water pill), will give antibiotic for leg, will send to wound care for an unna boot. Will call with information on wound care. . Wound Instructions - Will refer to wound care for Unna Boot and wound management - Pt was instructed to keep the wound clean, wash with antibacterial soap, use triple antibiotic ointment, call if redness, pustular drainage, or any other acute concerns. Hypertension - uncontrolled - The patient has been counseled to cut back on salt in diet for a no added salt diet, low fat diet, start an exercise program with low weight bearing exercises and higher aerobic activity for heart health. The patient is to check blood pressure readings as an outpatient and either fax , call, or email the readings to the office next week for practitioner to review. The pt is to call for acute concerns. Edema - pt has been advised to elevate legs to prevent dependent edema, compression has been recommended to help to naturally decrease peripheral edema. Diuretic use has been discussed and pt has been instructed in appropriate use of such medication as necessary to further attempt to reduce peripheral edema. Take Zaroxolyn with the spironolactone. . Diabetes Mellitus - controlled - per recent FSBS reports. I have recommended for the patient to have follow up labs prior to the next office visit. The patient has been instructed to continue with current medications as previously directed, continue with regular FSBS monitoring to assure continued control of diabetes. Pt to call for any acute concerns, complaints, or if the blood glucose readings are starting to become less controlled. Sleep apnea - pt uses oxygen at night, he states that "years ago" he had a sleep study, qualified for Cpap, but could not get used to the mask. He needs to have repeat studies to see if he can now tolerate the mask/or nasal pillows that can be used to treat the sleep apnea. Elevated PSA - pt has been prescribed finasteride by Dr. Staton, but has not been taking the medication regularly. He has been advised that he needs to take the medication regularly. Precancerous skin lesions on face - bilateral upper cheeks - needs cauterized. Pt to RTC for removal of the lesions. . Hypertension - well controlled - continue with current medications, continue with no added salt diet. Pt has been encouraged to exercise daily. The pt has been advised to call the office if there are any acute concerns about change in blood pressure readings at home. Diabetes Mellitus - controlled - per recent FSBS reports. I have recommended for the patient to have follow up labs prior to the next office visit. The patient has been instructed to continue with current medications as previously directed, continue with regular FSBS monitoring to assure continued control of diabetes. Pt to call for any acute concerns, complaints, or if the blood glucose readings are starting to become less controlled. Parkinson's Disease - pt has diagnosis of Parkinson's disease with movement disorder impinging upon daily activities. The pt is to be on sinemet as directed, and medications to be adjusted as appropriate for alleviation of the impairment of ADL's. Pt or pt's family is to alert this office if symptoms worsen. . Medicare Exam - today we discussed the patients past history, immunizations, preventative exams/evaluations - colonoscopy, fecal occult blood testing, routine labs for renal function, glucose, cholesterol, osteoporosis evaluations, cardiovascular testing and cancer screenings. We have also discussed mental health and the signs/symptoms of depression. The patient was advised of home safety evaluations and the need to make sure that as the aging process continues, we need to be aware of different ways to make the home a safer place to reside. The patient has also been counseled that exercise is necessary - and of utmost importance as we age to help decrease fall risk and to maintain independence in the home. Today we discussed the need for the patient to create paperwork for Advanced directives as well as for the patient to provide this office with a copy of her DOPA paperwork for health care surrogate. . Medicare Exam - today we discussed the patients past history, immunizations, preventative exams/evaluations - colonoscopy, fecal occult blood testing, routine labs for renal function, glucose, cholesterol, osteoporosis evaluations, cardiovascular testing and cancer screenings. We have also discussed mental health and the signs/symptoms of depression. The patient was advised of home safety evaluations and the need to make sure that as the aging process continues, we need to be aware of different ways to make the home a safer place to reside. The patient has also been counseled that exercise is necessary - and of utmost importance as we age to help decrease fall risk and to maintain independence in the home. Today we discussed the need for the patient to create paperwork for Advanced directives as well as for the patient to provide this office with a copy of her DOPA paperwork for health care surrogate. . Hypertension - well controlled - continue with current medications, continue with no added salt diet. Pt has been encouraged to exercise daily. The pt has been advised to call the office if there are any acute concerns about change in blood pressure readings at home. Diabetes Mellitus - controlled - per recent FSBS reports. I have recommended for the patient to have follow up labs prior to the next office visit. The patient has been instructed to continue with current medications as previously directed, continue with regular FSBS monitoring to assure continued control of diabetes. Pt to call for any acute concerns, complaints, or if the blood glucose readings are starting to become less controlled. Sleep apnea - pt uses oxygen at night via an oxygenator - he states that he feels better when he uses the oxygen. He is planning on going on a trip and would like to have his Oxygen company - [employer] - help with arranging oxygen when he is in [facility]. . Parkinsons disease - rx for sinemet 25/100mg 1/2 pill in morning and 1/2 pill in evening, pt to let us know if the symptoms improve. Referral to Miguel at [facility] for gait instability. Diabetes Mellitus - Uncontrolled - per recent FSBS reports. I have recommended for the patient to have follow up labs prior to the next office visit. The patient has been instructed to continue with current medications as previously directed, continue with regular FSBS monitoring to assure continued control of diabetes. Pt to call for any acute concerns, complaints, or if the blood glucose readings are starting to become less controlled. I have recommended for the patient to follow more strictly to the diabetic diet as discussed in clinic to allow for greater blood glucose control. Oral medications no longer appear to be enough for patient, he was started on : Lantus 5 units at bedtime to be given to pt as a sample. Back pain and gait instability - recommended christina at [facility] - continue with back brace as it offers support for the patient. . [id number] today in the office-wound Instructions - Pt was instruced to keep the wound clean, wash with antibacterial soap, use triple antibiotic ointment, call if redness, pustular drainage, or any other acute conerns. . Hypertension - well controlled - continue with current medications, continue with no added salt diet. Pt has been encouraged to exercise daily. The pt has been advised to call the office if there are any acute concerns about change in blood pressure readings at home. Edema - pt has been advised to elevate legs to prevent dependent edema, compression has been recommended to help to naturally decrease peripheral edema. Diuretic use has been discussed and pt has been instructed in appropriate use of such medication as necessary to further attempt to reduce peripheral edema. Will get previous colonoscopy report - will refer if indicated . Hypertension - well controlled - continue with current medications, continue with no added salt diet. Pt has been encouraged to exercise daily. The pt has been advised to call the office if there are any acute concerns about change in blood pressure readings at home. Diabetes Mellitus - controlled - per recent FSBS reports. I have recommended for the patient to have follow up labs prior to the next office visit. The patient has been instructed to continue with current medications as previously directed, continue with regular FSBS monitoring to assure continued control of diabetes. Pt to call for any acute concerns, complaints, or if the blood glucose readings are starting to become less controlled. Claw toes, flat feet - recommended pt to seek support for his arches via curtains and draperies salesperson eval and perhaps arch supports to be custom made or custom fitted. Labs today . Diabetes Mellitus - controlled - per recent FSBS reports. I have recommended for the patient to have follow up labs prior to the next office visit. The patient has been instructed to continue with current medications as previously directed, continue with regular FSBS monitoring to assure continued control of diabetes. Pt to call for any acute concerns, complaints, or if the blood glucose readings are starting to become less controlled. Hypertension - well controlled - continue with current medications, continue with no added salt diet. Pt has been encouraged to exercise daily. The pt has been advised to call the office if there are any acute concerns about change in blood pressure readings at home. Parkinson's Disease - pt has diagnosis of Parkinson's disease with movement disorder impinging upon daily activities. The pt is to be on sinemet as directed, and medications to be adjusted as appropriate for alleviation of the impairment of ADL's. Pt or pt's family is to alert this office if symptoms worsen. . Hypertension - well controlled - continue with current medications, continue with no added salt diet. Pt has been encouraged to exercise daily. The pt has been advised to call the office if there are any acute concerns about change in blood pressure readings at home. Edema - pt has been advised to elevate legs to prevent dependent edema, compression has been recommended to help to naturally decrease peripheral edema. Diuretic use has been discussed and pt has been instructed in appropriate use of such medication as necessary to further attempt to reduce peripheral edema. Compression socks - discussed pt to use zippered compression socks - information about the socks given to his . Diabetes Mellitus - controlled - per recent FSBS reports. I have recommended for the patient to have follow up labs prior to the next office visit. The patient has been instructed to continue with current medications as previously directed, continue with regular FSBS monitoring to assure continued control of diabetes. Pt to call for any acute concerns, complaints, or if the blood glucose readings are starting to become less controlled.
--- OUTSIDE RECORDS SUMMARY | 2017-11-07 16:58 | XMS REPORT | CCD ---
Author Author [facility] Organization [facility] Address [address] [place] [address] Phone Care Team Providers Care Cutter Down Name Role Phone PP Unavailable CCM Unavailable Summary Purpose Interface Exchange Insurance Providers Payer name Policy type / Coverage type Covered libertarian ID Effective Begin Date Effective End Date WPS Medicare Part B Medicare Part B [id number] Unknown [facility] Medicare Part B [id number] Unknown Family history Runs in the family Diagnosis Age At Onset Diabetes Unknown Mother Diagnosis Age At Onset Diabetes Unknown Hypertension Unknown Alzheimer's Disease Unknown Stroke Unknown Father Diagnosis Age At Onset No Family Disease Entered N/A Grandmother Diagnosis Age At Onset Alzheimer's Disease Unknown Social History Social History Element Codes Description Effective Dates Number of children Unknown 4 1 in [place], 1 in [place], 2 in [place] 2011 Employment Unknown 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 [employer]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/[address]: 8404437 Former smoker Quit in 1953 - 1 [...] ICD-9: 250.00 ICD-10: E11.9 Active 05/13/2017 Unknown Essential (primary) hypertension ICD-9: 401.9 ICD-10: [...] complications ICD-9: 250.00 ICD-10: E11.9 05/13/2017 Active Essential (primary) hypertension ICD-9: 401.9 ICD-10: [...] Fill Instructions glipizide 10 mg tablet RxNorm: 347660 1 Tablet(s) PO BID 201711/03/2018 Active metformin ER 500 mg tablet,extended release 24 hr RxNorm: 065722 Tablet(s) TAKE ONE TABLET BY MOUTH TWICE DAILY 05/13/2017 05/07/2018 Active Basaglar KwikPen 100 unit/mL (3 mL) subcutaneous RxNorm: 9811597 24 Unit(s) SQ daily 05/13/2017 05/07/2018 Active lisinopril 20 mg tablet RxNorm: 962360 Tablet(s) TAKE 1 TABLET BY MOUTH TWICE DAILY 05/13/2017 05/07/2018 Active finasteride 5 mg tablet RxNorm: 028102 1 Tablet(s) PO daily 11/08/2017 Active [SAVINGS FOR UNINSURED PATIENTS -- BIN:887974, PCN: ASPROD1, Group: [id number], ID# [id number], Process claim through Compression Kinetics, for questions: . THIS IS NOT INSURANCE.] levothyroxine 175 mcg tablet RxNorm: 869892 1 Tablet(s) PO daily 05/13/2017 11/08/2017 Active Sinemet 25 mg-100 mg tablet RxNorm: 869056 Tablet(s) TAKE ONE TABLET BY MOUTH TWICE DAILY IN THE MORNING AND AT SUPPER 05/13/2017 05/07/2018 Active Lasix 20 mg tablet RxNorm: 032229 Tablet(s) TAKE 1 TABLET BY MOUTH ONCE DAILY FOR 1 WEEK AND THEN TAKE 1 TABLET BY MOUTH EVERY 3 DAYS THEREAFTER 05/13/2017 07/27/2017 Active Basaglar KwikPen 100 unit/mL (3 mL) subcutaneous RxNorm: 6173883 24 Unit(s) SQ daily 05/07/2017 05/12/2017 Inactive Lasix 20 mg tablet RxNorm: 799539 2 Tablet(s) PO daily x 3 days, then 1 pill three times a week thereafter 04/28/2017 No Stop Date Active triamcinolone acetonide 0.025 % topical cream RxNorm: 3375500 1 Application TOP BID 04/28/2017 No Stop Date Active clotrimazole 1 % topical cream RxNorm: 949986 1 Application TOP BID 04/28/2017 No Stop Date Active potassium chloride ER 10 mEq tablet,extended release(part/ cryst) RxNorm: 3073872 2 Tablet(s) PO daily x 3 days, then 1 pill three times a week when taking the lasix 04/28/2017 08/25/2017 Active Lasix 20 mg tablet RxNorm: 193013 Tablet(s) TAKE 1 TABLET BY MOUTH ONCE DAILY FOR 1 WEEK AND THEN TAKE 1 TABLET BY MOUTH EVERY 3 DAYS THEREAFTER 04/22/2017 05/12/2017 Inactive Lantus Solostar 100 unit/mL (3 mL) subcutaneous insulin pen RxNorm: 278007 24 Unit(s) SQ daily INJECT 24 UNITS DAILY OR DIRECTED 201605/06/2017 Inactive 1 box of 5 pens Basaglar KwikPen 100 unit/mL (3 mL) subcutaneous RxNorm: 0509222 24 Unit(s) SQ daily 03/02/2017 05/06/2017 Inactive Basaglar KwikPen 100 unit/mL (3 mL) subcutaneous RxNorm: 1688812 24 Unit(s) SQ daily 03/02/2017 03/01/2017 Inactive levothyroxine 175 mcg tablet RxNorm: 092812 1 Tablet(s) PO daily 02/02/2017 05/12/2017 Inactive Sinemet 25 mg-100 mg tablet RxNorm: 497262 TAKE ONE TABLET BY MOUTH TWICE DAILY IN THE MORNING AND AT SUPPER 12/30/2016 Inactive metformin ER 500 mg tablet,extended release 24 hr RxNorm: 218889 Tablet(s) TAKE ONE TABLET BY MOUTH TWICE DAILY 11/10/2016 05/12/2017 Inactive lisinopril 20 mg tablet RxNorm: 585458 Tablet(s) TAKE 1 TABLET BY MOUTH TWICE DAILY 11/10/2016 05/12/2017 Inactive levothyroxine 150 mcg tablet RxNorm: 190980 1 Tablet(s) PO daily 11/05/2016 02/01/2017 Inactive PLEASE LET PATIENT KNOW WE ARE GIVING HIM 150MCG INSTEAD OF 100MCG SO HE JUST TAKES 1 TAB DAILY. THANKS! Lantus Solostar 100 unit/mL (3 mL) subcutaneous insulin pen RxNorm: 336771 24 Unit(s) SQ daily INJECT 24 UNITS DAILY OR DIRECTED 201603/01/2017 Inactive 1 box of 5 pens Lantus Solostar 100 unit/mL (3 mL) subcutaneous insulin pen RxNorm: 886253 24 Unit(s) SQ daily INJECT 24 UNITS DAILY OR DIRECTED 201610/06/2016 Inactive please call patient with the colbert levothyroxine 100 mcg tablet RxNorm: 661327 1.5 Tablet(s) PO daily 10/05/2016 11/04/2016 Inactive metformin ER 500 mg tablet,extended release 24 hr RxNorm: 682386 Tablet(s) TAKE ONE TABLET BY MOUTH TWICE DAILY 09/29/2016 11/09/2016 Inactive prednisone 20 mg tablet RxNorm: 930234 1 Tablet(s) PO BID 08/0608/10/2016 Inactive Kenalog 40 mg/mL suspension for injection RxNorm: 3667220 1 Milliliter(s) Inj 07/30/2016 07/30/2016 Inactive doxycycline hyclate 100 mg tablet RxNorm: 504111 1 Tablet(s) PO BID 07/30/2016 08/05/2016 Inactive glipizide 10 mg tablet RxNorm: 243051 1 Tablet(s) PO BID 201605/12/2017 Inactive Sinemet 25 mg-100 mg tablet RxNorm: 127166 TABLET(S) TAKE 1 TABLET BY MOUTH TWICE A DAY IN THE MORNING AND AT SUPPER 05/11/2016 11/06/2016 Inactive Patient requests 90 days supply metformin ER 500 mg tablet,extended release 24 hr RxNorm: 361510 TAKE ONE TABLET BY MOUTH TWICE DAILY 05/04/20162016 Inactive lisinopril 20 mg tablet RxNorm: 456846 TAKE 1 TABLET BY MOUTH TWICE DAILY 04/14/2016 11/09/2016 Inactive Sinemet 25 mg-100 mg tablet RxNorm: 571755 1 Tablet(s) PO BID TAKE 1 TABLET BY MOUTH TWICE A DAY IN THE MORNING AND AT SUPPER 03/23/2016 09/18/2016 Inactive Lasix 20 mg tablet RxNorm: 507717 Tablet(s) TAKE 1 TABLET BY MOUTH ONCE DAILY FOR 1 WEEK AND THEN TAKE 1 TABLET BY MOUTH EVERY 3 DAYS THEREAFTER 03/23/2016 06/06/2016 Inactive hydrocodone 5 mg-acetaminophen 325 mg tablet RxNorm: 315989 1-2 Tablet(s) PO Q6- 8H 01/21/2016 No Stop Date Active Lantus Solostar 100 unit/mL (3 mL) subcutaneous insulin pen RxNorm: 435003 24 Unit(s) SQ daily INJECT 24 UNITS DAILY OR DIRECTED 201510/05/2016 Inactive please call patient with the colbert Kenalog 40 mg/mL suspension for injection RxNorm: 9034560 1 Milliliter(s) Inj 01/20/2016 01/20/2016 Inactive Sinemet 25 mg-100 mg tablet RxNorm: 778285 Tablet(s) TAKE 1 TABLET BY MOUTH TWICE A DAY IN THE MORNING AND AT SUPPER 11/29/2015 03/22/2016 Inactive Lantus Solostar 100 unit/mL (3 mL) subcutaneous insulin pen RxNorm: 273543 20 Unit(s) SQ daily INJECT 20 UNITS DAILY OR DIRECTED 201501/20/2016 Inactive please call patient with the colbert Sinemet 25 mg-100 mg tablet RxNorm: 779369 Tablet(s) TAKE 1 TABLET BY MOUTH TWICE A DAY IN THE MORNING AND AT SUPPER 11/22/2015 11/28/2015 Inactive Lantus Solostar 100 unit/mL (3 mL) subcutaneous insulin pen RxNorm: 386705 Unit( s) INJECT 20 UNITS DAILY OR DIRECTED 11/22/2015 11/24/2015 Inactive Lantus Solostar 100 unit/mL (3 mL) subcutaneous insulin pen RxNorm: 436215 INJECT 20 UNITS DAILY OR DIRECTED 09/27/2015 11/21/2015 Inactive Lasix 20 mg tablet RxNorm: 460838 TAKE 1 TABLET BY MOUTH ONCE DAILY FOR 1 WEEK AND THEN TAKE 1 TABLET BY MOUTH EVERY 3 DAYS THEREAFTER 09/2512/10/2015 Inactive Lasix 20 mg tablet RxNorm: 822784 1 Tablet(s) PO daily 201509/25/2015 Inactive glipizide 10 mg tablet RxNorm: 439756 1 Tablet(s) BID TAKE 1 TABLET BY MOUTH DAILY. 06/25/2015 06/28/2016 Inactive metformin ER 500 mg tablet,extended release 24 hr RxNorm: 751781 1 Tablet(s) PO BID 04/01/2015 05/05/2016 Inactive lisinopril 20 mg tablet RxNorm: 222291 Tablet(s) TAKE 1 TABLET BY MOUTH TWICE DAILY. 03/25/2015 07/22/2015 Inactive metformin ER 500 mg tablet,extended release 24 hr RxNorm: 678516 1 Tablet(s) PO BID 03/25/2015 03/31/2015 Inactive doxycycline hyclate 100 mg capsule RxNorm: 1497619 1 Capsule(s) PO BID 03/19/2015 04/01/2015 Inactive Sinemet 25 mg-100 mg tablet RxNorm: 219490 TAKE 1 TABLET BY MOUTH TWICE A DAY IN THE MORNING AND AT SUPPER 03/05/201511/20 Inactive doxycycline hyclate 100 mg capsule RxNorm: 8068663 1 Capsule(s) PO BID 02/20/2015 02/26/2015 Inactive metolazone 5 mg tablet RxNorm: 418042 1 Tablet(s) PO daily 07/201403/21/2015 Inactive spironolactone 50 mg tablet RxNorm: 293025 1 Tablet(s) PO daily 02/11/2015 01/02/2016 Inactive Efudex 5 % topical cream RxNorm: 904662 1 TOP BID 01/28/2015 02/10/2015 Inactive potassium chloride ER 10 mEq tablet,extended release(part/ cryst) RxNorm: 3764415 1 Tablet(s) PO daily x 1week then three times weekly with the lasix. 01/28/2015 05/27/2015 Inactive Lasix 20 mg tablet RxNorm: 542987 1 Tablet(s) PO daily x 1 week, then every three days thereafter 01/28/20152015 Inactive lisinopril 20 mg tablet RxNorm: 298259 Tablet(s) TAKE 1 TABLET BY MOUTH TWICE DAILY. 11/23/2014 03/22/2015 Inactive lisinopril 20 mg tablet RxNorm: 627193 TAKE 1 TABLET BY MOUTH TWICE DAILY. 11/22/2014 11/22/2014 Inactive Sinemet 25 mg-100 mg tablet RxNorm: 958850 1 Tablet(s) PO BID TAKE 1 TABLET BY MOUTH TWICE A DAY IN THE MORNING AND AT SUPPER 10/01/2014 03/04/2015 Inactive [ SAVINGS FOR UNINSURED PATIENTS -- BIN:261938, PCN: ASPPAULO1, Group: [id number], ID# [id number], Process claim through Compression Kinetics, for questions: . THIS IS NOT INSURANCE.] glipizide 10 mg tablet RxNorm: 154665 1 Tablet(s) BID TAKE 1 TABLET BY MOUTH DAILY. 10/01/2014 06/24/2015 Inactive glipizide 10 mg tablet RxNorm: 936355 Tablet(s) daily TAKE 1 TABLET BY MOUTH DAILY. 08/06/2014 09/30/2014 Inactive Lantus Solostar 100 unit/mL (3 mL) subcutaneous insulin pen RxNorm: 106091 20 Unit(s) SQ daily 07/11/2014 09/26/2015 Inactive [SAVINGS FOR UNINSURED PATIENTS -- BIN:090169, PCN: ASPROD1, Group: [id number], ID# [id number], Process claim through Compression Kinetics, for questions: . THIS IS NOT INSURANCE.] metformin ER 500 mg tablet,extended release 24 hr RxNorm: 477008 1 Tablet(s) PO BID 07/10/2014 03/24/2015 Inactive lisinopril 20 mg tablet RxNorm: 467500 Tablet(s) TAKE 1 TABLET BY MOUTH TWICE DAILY. 07/10/2014 11/21/2014 Inactive Lantus Solostar 100 unit/mL (3 mL) subcutaneous insulin pen RxNorm: 804141 20 Unit(s) SQ daily 05/30/2014 07/10/2014 Inactive [SAVINGS FOR UNINSURED PATIENTS -- BIN:238608, PCN: ASPROD1, Group: [id number], ID# [id number], Process claim through MedImpact, for questions: . THIS IS NOT INSURANCE.] Sinemet 25 mg-100 mg tablet RxNorm: 675987 Tablet(s) TAKE 1 TABLET BY MOUTH TWICE A DAY IN THE MORNING AND AT SUPPER 05/30/2014 09/30/2014 Inactive [SAVINGS FOR UNINSURED PATIENTS -- BIN:821031, PCN: ASPROD1, Group: [id number], ID# [id number], Process claim through MedImpact, for questions: . THIS IS NOT INSURANCE.] lisinopril 20 mg tablet RxNorm: 061072 TAKE 1 TABLET BY MOUTH TWICE DAILY. 04/09/2014 04/08/2014 Inactive glipizide 10 mg tablet RxNorm: 440475 TAKE 1 TABLET BY MOUTH TWICE DAILY. 04/09/2014 08/05/2014 Inactive glipizide 10 mg tablet RxNorm: 075978 TAKE 1 TABLET BY MOUTH TWICE DAILY. 04/09/2014 04/08/2014 Inactive lisinopril 20 mg tablet RxNorm: 315284 TAKE 1 TABLET BY MOUTH TWICE DAILY. 04/09/2014 07/09/2014 Inactive lisinopril 20 mg tablet RxNorm: 592955 Tablet(s) TAKE ONE TABLET BY MOUTH TWICE DAILY 04/06/2014 04/08/2014 Inactive [SAVINGS FOR UNINSURED PATIENTS -- BIN:512621 , PCN: ASPROD1, Group: [id number], ID# [id number], Process claim through MedImpact, for questions: . THIS IS NOT INSURANCE.] glipizide 10 mg tablet RxNorm: 587788 1 Tablet(s) PO BID 201304/08/2014 Inactive [SAVINGS FOR UNINSURED PATIENTS -- BIN:820816, PCN: ASPROD1, Group: [id number], ID # [id number], Process claim through Compression Kinetics, for questions: . THIS IS NOT INSURANCE.] pravastatin 10 mg tablet RxNorm: 111915 TAKE ONE TABLET BY MOUTH EVERY DAY 02/26/2014 05/26/2014 Inactive Sinemet 25 mg-100 mg tablet RxNorm: 788855 TAKE 1 TABLET BY MOUTH TWICE A DAY IN THE MORNING AND AT SUPPER 01/26/201401/25 Inactive Sinemet 25 mg-100 mg tablet RxNorm: 373428 Tablet(s) TAKE 1 TABLET BY MOUTH TWICE A DAY IN THE MORNING AND AT SUPPER 01/26/2014 05/29/2014 Inactive [SAVINGS FOR UNINSURED PATIENTS -- BIN:401900, PCN: ASPROD1, Group: [id number], ID# [id number], Process claim through Compression Kinetics, for questions: . THIS IS NOT INSURANCE.] Sinemet 25 mg-100 mg tablet RxNorm: 085330 TAKE 1 TABLET BY MOUTH TWICE A DAY IN THE MORNING AND AT SUPPER 01/26/201401/25 Inactive Sinemet 25 mg-100 mg tablet RxNorm: 717112 TAKE 1 TABLET BY MOUTH TWICE A DAY IN THE MORNING AND AT SUPPER 01/26/201401/25 Inactive pantoprazole 40 mg tablet,delayed release RxNorm: 349010 TAKE 1 TABLET DAILY 01/25/2014 10/07/2016 Inactive finasteride 5 mg tablet RxNorm: 211049 1 Tablet(s) PO daily 12/201309/30/2014 Inactive [SAVINGS FOR UNINSURED PATIENTS -- BIN:538379, PCN: ASPROD1, Group: [id number] , ID# [id number], Process claim through Compression Kinetics, for questions: . THIS IS NOT INSURANCE.] sucralfate 100 mg/mL oral suspension RxNorm: 280477 10 Milliliter(s) PO QID 01/23/2014 09/30/2014 Inactive dispense qs x 1 month lisinopril 20 mg tablet RxNorm: 375232 TAKE ONE TABLET BY MOUTH TWICE DAILY 12/27/2013 03/26/2014 Inactive pantoprazole 40 mg tablet,delayed release RxNorm: 560959 1 Tablet(s) PO daily 12/26/2013 12/25/2013 Inactive [SAVINGS FOR UNINSURED PATIENTS -- BIN:515315, PCN: ASPROD1, Group: [id number], ID# [id number], Process claim through MedImpact, for questions: . THIS IS NOT INSURANCE.] pantoprazole 40 mg tablet,delayed release RxNorm: 118166 1 Tablet(s) PO daily 12/26/2013 12/20/2014 Inactive [SAVINGS FOR UNINSURED PATIENTS -- BIN:850125, PCN: ASPROD1, Group: [id number], ID# [id number], Process claim through MedImpact, for questions: . THIS IS NOT INSURANCE.] gemfibrozil 600 mg tablet RxNorm: 230463 1 Tablet(s) PO BID 11/201310/23/2013 Inactive gemfibrozil 600 mg tablet RxNorm: 523077 1 Tablet(s) PO BID 11/201309/30/2014 Inactive [SAVINGS FOR UNINSURED PATIENTS -- BIN:219968, PCN: ASPROD1, Group: [id number] , ID# [id number], Process claim through MedImpact, for questions: . THIS IS NOT INSURANCE.] finasteride 5 mg tablet RxNorm: 395321 1 Tablet(s) PO daily 04/201301/24/2014 Inactive [SAVINGS FOR UNINSURED PATIENTS -- BIN:893370, PCN: ASPROD1, Group: [id number] , ID# [id number], Process claim through MedImpact, for questions: . THIS IS NOT INSURANCE.] Lantus Solostar 100 unit/mL (3 mL) subcutaneous insulin pen RxNorm: 974719 20 Unit(s) SQ daily 10/09/2013 05/29/2014 Inactive [SAVINGS FOR UNINSURED PATIENTS -- BIN:974207, PCN: ASPROD1, Group: [id number], ID# [id number], Process claim through MedImpact, for questions: . THIS IS NOT INSURANCE.] glipizide 10 mg tablet RxNorm: 072560 1 Tablet(s) PO daily 04/05/2014 Inactive [SAVINGS FOR UNINSURED PATIENTS -- BIN:204142, PCN: ASPROD1, Group: [id number] , ID# [id number], Process claim through Compression Kinetics, for questions: . THIS IS NOT INSURANCE.] Lantus Solostar 100 unit/mL (3 mL) subcutaneous insulin pen RxNorm: 940816 20 Unit(s) SQ daily 07/18/2013 10/08/2013 Inactive Sinemet 25 mg-100 mg tablet RxNorm: 879009 1 Tablet(s) PO BID one pill in morning , one at supper 07/10/2013 01/25/2014 Inactive Sinemet 25 mg-100 mg tablet RxNorm: 830406 1 Tablet(s) PO BID one pill in morning , one at supper 04/24/2013 07/09/2013 Inactive metformin ER 500 mg tablet,extended release 24 hr RxNorm: 406297 1 Tablet(s) PO BID 04/24/2013 04/18/2014 Inactive glipizide 10 mg tablet RxNorm: 005205 1 Tablet(s) PO daily 09/201310/08/2013 Inactive lisinopril 20 mg tablet RxNorm: 583500 1 Tablet(s) PO BID 04/2410/20/2013 Inactive pravastatin 10 mg tablet RxNorm: 837390 1 Tablet(s) PO daily 10/20/2013 Inactive Lantus Solostar 100 unit/mL (3 mL) subcutaneous insulin pen RxNorm: 216897 20 Unit(s) SQ daily 04/24/2013 07/17/2013 Inactive glipizide 10 mg tablet RxNorm: 252881 1 Tablet(s) PO daily 05/201304/23/2013 Inactive glipizide 10 mg tablet RxNorm: 699921 1 Tablet(s) PO daily 05/201204/19/2013 Inactive Lantus Solostar 100 unit/mL (3 mL) subcutaneous insulin pen RxNorm: 552803 16 Unit(s) SQ daily 03/20/2013 04/23/2013 Inactive Sinemet 25 mg-100 mg tablet RxNorm: 087579 1 Tablet(s) PO BID one pill in morning , one at supper 01/20/2013 04/23/2013 Inactive Lantus Solostar 100 unit/mL (3 mL) subcutaneous insulin pen RxNorm: 088445 16 Unit(s) SQ daily 01/19/2013 01/25/2013 Inactive Sinemet 25 mg-100 mg tablet RxNorm: 941904 1 Tablet(s) PO BID one pill in morning , one at supper 01/19/2013 01/19/2013 Inactive glipizide 10 mg tablet RxNorm: 269380 1 Tablet(s) PO BID 201203/19/2013 Inactive Lantus Solostar 100 unit/mL (3 mL) Sub-Q Insulin Pen RxNorm: 966313 12 Unit(s) SQ daily 12/21/2012 01/18/2013 Inactive lisinopril 20 mg tablet RxNorm: 595512 1 Tablet(s) PO BID 12/0804/23/2013 Inactive metformin ER 500 mg tablet,extended release 24 hr RxNorm: 644440 1 Tablet(s) PO BID 11/30/2012 04/23/2013 Inactive Lantus Solostar 100 unit/mL (3 mL) Sub-Q Insulin Pen RxNorm: 105381 5 Unit(s) SQ daily 11/30/2012 12/07/2012 Inactive FINASTERIDE TAB 5MG RxNorm: 10/03/2012 Inactive lisinopril 20 mg tablet RxNorm: 924269 1 Tablet(s) PO BID 09/0812/06/2012 Inactive glipizide 10 mg tablet RxNorm: 699732 1 Tablet(s) PO BID 201212/30/2012 Inactive metronidazole 500 mg tablet RxNorm: 744649 1 Tablet(s) PO TID 05/30/2012 06/08/2012 Inactive metformin ER 500 mg tablet,extended release 24 hr RxNorm: 075991 2 Tablet(s) PO daily 04/22/2012 11/29/2012 Inactive metformin ER 500 mg tablet,extended release 24 hr RxNorm: 186778 2 Tablet(s) PO daily 04/21/2012 04/21/2012 Inactive ketoconazole 2 % Topical Cream RxNorm: 714002 1 Application TOP BID 04/14/2012 05/04/2012 Inactive ketoconazole 2 % Shampoo RxNorm: 158524 1 Application TOP every other day apply to feet, leave on for 5 minutes, then rinse. 04/14/2012 04/27/2012 Inactive clotrimazole 1 % Topical Cream RxNorm: 081520 1 Application TOP BID 02/22/2012 04/03/2012 Inactive glipizide 10 mg tablet RxNorm: 219770 1 Tablet(s) PO BID 201106/18/2012 Inactive lisinopril 20 mg tablet RxNorm: 730748 1 Tablet(s) PO BID 09/0108/26/2012 Inactive metformin ER 500 mg tablet,extended release 24 hr RxNorm: 263490 2 Tablet(s) PO daily 08/10/2011 04/20/2012 Inactive metformin ER 1,000 mg 24 hr Tab Ctrl Rel RxNorm: 019564 1 Tablet(s) PO daily 07/28/2011 08/09/2011 Inactive Kombiglyze XR 5 mg-1,000 mg 24 hr Tab RxNorm: 1506317 1 Tablet(s) PO daily 07/28/2011 07/27/2011 Inactive Kombiglyze XR 5 mg-1,000 mg 24 hr Tab RxNorm: 0831655 1 Tablet(s) PO daily 07/28/2011 07/28/2011 Inactive glipizide 10 mg tablet RxNorm: 155991 1 Tablet(s) PO BID 201107/27/2011 Inactive glipizide 10 mg Tab RxNorm: 365274 1 Tablet(s) PO BID 201106/16/2011 Inactive glipizide 10 mg Tab RxNorm: 290874 1 Tablet(s) PO BID 201006/15/2011 Inactive glipizide 10 mg Tab RxNorm: 197872 1 Tablet(s) PO BID 201004/01/2011 Inactive glipizide 10 mg Tab RxNorm: 950369 Tablet(s) PO BID 201003/31/2011 Inactive Calcium + Vitamin D 600 mg calcium-200 unit tablet RxNorm: 207512 1 Tablet(s) PO BID No Start Date Active pantoprazole 40 mg tablet,delayed release RxNorm: 222399 1 Tablet(s) PO daily No Start Date 12/25/2013 Inactive Sinemet 25 mg-100 mg tablet RxNorm: 832527 1/2 Tablet(s) PO BID one pill in morning, one at supper No Start Date 01/18 Inactive levothyroxine 100 mcg tablet RxNorm: 810099 1 Tablet(s) PO daily No Start Date 10/04/2016 Inactive lisinopril 20 mg Tab RxNorm: 723477 1 Tablet(s) PO BID No Start Date 09/01/2011 Inactive hydrocodone 5 mg-acetaminophen 325 mg tablet RxNorm: 785396 1-2 Tablet(s) PO Q6- 8H No Start Date 01/20/2016 Inactive pravastatin 10 mg tablet RxNorm: 042989 1 Tablet(s) PO daily No Start Date 04/23/2013 Inactive Medication Administered Medication Codes Instructions Start Date Status Kenalog 40 mg/mL suspension for injection RxNorm: 7773540 1Milliliter 07/30/2016 No longer Active Kenalog 40 mg/mL suspension for injection RxNorm: 7863872 1Milliliter 01/20/2016 No longer Active Immunizations Vaccine [...] without complications ICD-10: E11.9 ICD-9: 250.00 05/13/2017 Hypothyroidism, unspecified ICD-10: E03.9 ICD-9: 244.9 02/04/2017 [...] For Visit Effective Dates Notes rash 05/13/2017 hypertension 04/15/2017 hypothyroid 02/04/2017 Annual Medicare Wellness [...] Code Item Item Code Result Date %Hba1C Lnr856 % HbA1c 06950-3 7.0 % 05/13/2017 %Hba1C Vfi619 Gluc Ave 154 mg/dL 05/13/2017 Free T4 Nxu083 FREE T4 1.29 ng/dL 05/13/2017 Tsh Ord6 TSH (3rd IS) 4.14 uIU/mL 05/13/2017 Tsh Ord6 hTSH II 9.43 uIU/mL 02/02/2017 Comp Metabolic Fis893 NA 134 mEq/L 02/02/2017 Comp Metabolic Vib494 K 4.4 mEq/L 02/02/2017 Comp Metabolic Gmv516 CL 99 mEq/L 02/02/2017 Comp Metabolic Uik511 CO2 26.0 mEq/L 02/02/2017 Comp Metabolic Qaq726 ANION GAP 13 02/02/2017 Comp Metabolic Ucc147 GLUCOSE 256 mg/dL 02/02/2017 Comp Metabolic Fde207 Creat 1.6 mg/dL 02/02/2017 Comp Metabolic Txz704 eGFR 45 ml/min/1.73m2 02/02/2017 Comp Metabolic Ndz998 BUN 26 mg/dL 02/02/2017 Comp Metabolic Orz584 B/C Ratio 16.6 Ratio 02/02/2017 Comp Metabolic Umn143 CALCIUM 8.7 mg/dL 02/02/2017 Comp Metabolic Gmv066 ALK PHOS 63 U/L 02/02/2017 Comp Metabolic Wsf586 AST(SGOT) 11 U/L 02/02/2017 Comp Metabolic Hsc162 ALT(SGPT) 9 U/L 02/02/2017 Comp Metabolic Fdr185 BILI T 0.5 mg/dL 02/02/2017 Comp Metabolic Oxr867 ALBUMIN 3.7 g/dL 02/02/2017 Comp Metabolic Kvv296 TPRO 6.1 g/dL 02/02/2017 Comp Metabolic Tpf401 GLOB 2.4 g/dL 02/02/2017 Comp Metabolic Uyw057 A/G Ratio 1.6 Ratio 02/02/2017 Comp Metabolic Myv883 Osmo 282 mOsmo 02/02/2017 %Hba1C Jtn823 % HbA1c 35336-4 7.5 % 02/02/2017 %Hba1C Pdc072 Gluc Ave 169 mg/dL 02/02/2017 Free T4 Yvv010 FREE T4 1.23 ng/dL 02/02/2017 Cbc With [...] 93.0 fl 02/02/2017 Cbc With Differential Ord2 [place]% 9.6 % 02/02/2017 Cbc With Differential Ord2 [...] 2.61 K/ul 02/02/2017 Cbc With Differential Ord2 [place] ABS# 0.8 K/ul 02/02/2017 Cbc With Differential Ord2 Eos ABS# 0.2 K/ul 02/02/2017 Cbc With Differential Ord2 Baso ABS# 0.1 K/ul 02/02/2017 Total T3 Ord42 TT3 0.59 ng/ml 07/14/2016 Free T4 Xmp610 FREE T4 1.14 ng/dL 07/14/2016 Cbc With [...] 34.9 % 06/22/2016 Cbc With Differential Ord2 [place]% 9.9 % 06/22/2016 Cbc With Differential Ord2 [...] 2.41 K/ul 06/22/2016 Cbc With Differential Ord2 [place] ABS# 0.7 K/ul 06/22/2016 Cbc With Differential Ord2 Eos ABS# 0.2 K/ul 06/22/2016 Cbc With Differential Ord2 Baso ABS# 0.0 K/ul 06/22/2016 Comp Metabolic Wlt899 NA 134 mEq/L 06/22/2016 Comp Metabolic Kts718 K 4.3 mEq/L 06/22/2016 Comp Metabolic Iao103 CL 100 mEq/L 06/22/2016 Comp Metabolic Mkl903 CO2 26.0 mEq/L 06/22/2016 Comp Metabolic Rrm846 ANION GAP 12 06/22/2016 Comp Metabolic Mae397 GLUCOSE 222 mg/dL 06/22/2016 Comp Metabolic Bks234 Creat 1.5 mg/dL 06/22/2016 Comp Metabolic Xob128 eGFR 49 ml/min/1.73m2 06/22/2016 Comp Metabolic Eys306 BUN 23 mg/dL 06/22/2016 Comp Metabolic Oze481 B/C Ratio 15.9 Ratio 06/22/2016 Comp Metabolic Kcn271 CALCIUM 9.0 mg/dL 06/22/2016 Comp Metabolic Rtz926 ALK PHOS 59 U/L 06/22/2016 Comp Metabolic Npv096 AST(SGOT) 13 U/L 06/22/2016 Comp Metabolic Tlw335 ALT(SGPT) 11 U/L 06/22/2016 Comp Metabolic Vaq128 BILI T 0.5 mg/dL 06/22/2016 Comp Metabolic Uil317 ALBUMIN 3.8 g/dL 06/22/2016 Comp Metabolic Qsy930 TPRO 6.2 g/dL 06/22/2016 Comp Metabolic Tzr398 GLOB 2.4 g/dL 06/22/2016 Comp Metabolic Joq158 A/G Ratio 1.6 Ratio 06/22/2016 Comp Metabolic Btm566 Osmo 279 mOsmo 06/22/2016 Tsh Ord6 hTSH II 0.44 uIU/mL 06/22/2016 Comp Metabolic Fkv339 NA 134 mEq/L 04/27/2016 Comp Metabolic Yyl544 K 4.6 mEq/L 04/27/2016 Comp Metabolic Bnn346 CL 99 mEq/L 04/27/2016 Comp Metabolic Qia611 CO2 27.0 mEq/L 04/27/2016 Comp Metabolic Cmj839 ANION GAP 13 04/27/2016 Comp Metabolic Ylq797 GLUCOSE 178 mg/dL 04/27/2016 Comp Metabolic Llx278 Creat 1.4 mg/dL 04/27/2016 Comp Metabolic Qdt318 eGFR 53 ml/min/1.73m2 04/27/2016 Comp Metabolic Ymd150 BUN 24 mg/dL 04/27/2016 Comp Metabolic Ury745 B/C Ratio 17.5 Ratio 04/27/2016 Comp Metabolic Vfa581 CALCIUM 9.1 mg/dL 04/27/2016 Comp Metabolic Cxn697 ALK PHOS 72 U/L 04/27/2016 Comp Metabolic Oeh541 AST(SGOT) 16 U/L 04/27/2016 Comp Metabolic Tmr172 ALT(SGPT) 12 U/L 04/27/2016 Comp Metabolic Bgh351 BILI T 0.6 mg/dL 04/27/2016 Comp Metabolic Efm733 ALBUMIN 4.1 g/dL 04/27/2016 Comp Metabolic Wcq356 TPRO 6.8 g/dL 04/27/2016 Comp Metabolic Efn325 GLOB 2.7 g/dL 04/27/2016 Comp Metabolic Sdg440 A/G Ratio 1.6 Ratio 04/27/2016 Comp Metabolic Rjp495 Osmo 277 mOsmo 04/27/2016 Cbc With Differential [...] 33.1 % 04/27/2016 Cbc With Differential Ord2 [place]% 9.7 % 04/27/2016 Cbc With Differential Ord2 [...] 2.89 K/ul 04/27/2016 Cbc With Differential Ord2 [place] ABS# 0.9 K/ul 04/27/2016 Cbc With Differential Ord2 Eos ABS# 0.2 K/ul 04/27/2016 Cbc With Differential Ord2 Baso ABS# 0.0 K/ul 04/27/2016 %Hba1C Oei270 % HbA1c 47639-8 7.2 % 04/27/2016 %Hba1C Npz593 Gluc Ave 160 mg/dL 04/27/2016 Cbc With [...] 31.0 pg 01/21/2016 Cbc With Differential Ord2 [place]% 8.9 % 01/21/2016 Cbc With Differential Ord2 [...] 1.91 K/ul 01/21/2016 Cbc With Differential Ord2 [place] ABS# 0.6 K/ul 01/21/2016 Cbc With Differential Ord2 Eos ABS# 0.2 K/ul 01/21/2016 Cbc With Differential Ord2 Baso ABS# 0.0 K/ul 01/21/2016 Comp Metabolic Ihg275 NA 134 mEq/L 01/21/2016 Comp Metabolic Fnd443 K 5.0 mEq/L 01/21/2016 Comp Metabolic Jze016 CL 99 mEq/L 01/21/2016 Comp Metabolic Eko582 CO2 26.0 mEq/L 01/21/2016 Comp Metabolic Rbi222 ANION GAP 14 01/21/2016 Comp Metabolic Adh962 GLUCOSE 260 mg/dL 01/21/2016 Comp Metabolic Liz210 Creat 1.5 mg/dL 01/21/2016 Comp Metabolic Don379 eGFR 50 ml/min/1.73m2 01/21/2016 Comp Metabolic Imf333 BUN 18 mg/dL 01/21/2016 Comp Metabolic Wez798 B/C Ratio 12.4 Ratio 01/21/2016 Comp Metabolic Hcs453 CALCIUM 8.8 mg/dL 01/21/2016 Comp Metabolic Tdh427 ALK PHOS 68 U/L 01/21/2016 Comp Metabolic Tuo097 AST(SGOT) 16 U/L 01/21/2016 Comp Metabolic Rpi454 ALT(SGPT) 16 U/L 01/21/2016 Comp Metabolic Jwi903 BILI T 0.5 mg/dL 01/21/2016 Comp Metabolic Est719 ALBUMIN 3.8 g/dL 01/21/2016 Comp Metabolic Vnj065 TPRO 6.3 g/dL 01/21/2016 Comp Metabolic Lbx477 GLOB 2.5 g/dL 01/21/2016 Comp Metabolic Sus089 A/G Ratio 1.5 Ratio 01/21/2016 Comp Metabolic Mwu183 Osmo 279 mOsmo 01/21/2016 %Hba1C Gwr782 % HbA1c 34817-4 7.4 % 01/21/2016 %Hba1C Eks055 Gluc Ave 166 mg/dL 01/21/2016 Metabolic Ord15 [...] Qnt Crqnt CRP 1.5 mg/dl 09/17/2015 %Hba1C Gwa134 % HbA1c 21973-3 7.1 % 09/17/2015 %Hba1C Vqh319 Gluc Ave 157 mg/dL 09/17/2015 Cbc With [...] 31.7 pg 08/06/2015 Cbc With Differential Ord2 [place]% 9.6 % 08/06/2015 Cbc With Differential Ord2 [...] 2.90 K/ul 08/06/2015 Cbc With Differential Ord2 [place] ABS# 0.7 K/ul 08/06/2015 Cbc With Differential Ord2 Eos ABS# 0.2 K/ul 08/06/2015 Cbc With Differential Ord2 Baso ABS# 0.0 K/ul 08/06/2015 Cbc With Differential Ord2 New Analyzer Notice Please note new ref ranges starting 05-01-2015 due to implemntation of new five part differential hematolgy analyzer. 08/06/2015 Comp Metabolic Uzy697 NA 132 mEq/L 08/06/2015 Comp Metabolic Zxy617 K 4.6 mEq/L 08/06/2015 Comp Metabolic Kns894 CL 98 mEq/L 08/06/2015 Comp Metabolic Ohz817 CO2 25.0 mEq/L 08/06/2015 Comp Metabolic Wvj190 ANION GAP 14 08/06/2015 Comp Metabolic Hfk117 GLUCOSE 170 mg/dL 08/06/2015 Comp Metabolic Eqy577 Creat 1.5 mg/dL 08/06/2015 Comp Metabolic Moj609 eGFR 46 ml/min/1.73m2 08/06/2015 Comp Metabolic Yzs992 BUN 21 mg/dL 08/06/2015 Comp Metabolic Rns277 B/C Ratio 13.6 Ratio 08/06/2015 Comp Metabolic Yxu552 CALCIUM 8.9 mg/dL 08/06/2015 Comp Metabolic Kkh142 ALK PHOS 60 U/L 08/06/2015 Comp Metabolic Lsn618 AST(SGOT) 16 U/L 08/06/2015 Comp Metabolic Grf419 ALT(SGPT) 18 U/L 08/06/2015 Comp Metabolic Grf582 BILI T 0.4 mg/dL 08/06/2015 Comp Metabolic Zpk961 ALBUMIN 3.8 g/dL 08/06/2015 Comp Metabolic Lrm791 TPRO 6.3 g/dL 08/06/2015 Comp Metabolic Uox506 GLOB 2.5 g/dL 08/06/2015 Comp Metabolic Teh075 A/G Ratio 1.6 Ratio 08/06/2015 Comp Metabolic Utp595 Osmo 271 mOsmo 08/06/2015 Tsh Ord6 hTSH II 0.95 uIU/mL 06/17/2015 Free T4 Qel697 FREE T4 1.08 ng/dL 06/17/2015 Metabolic Ord15 [...] Ord15 CALCIUM 9.0 mg/dL 05/06/2015 Comp Metabolic Qul680 NA 143 mEq/L 03/04/2015 Comp Metabolic Hhy727 K 4.5 mEq/L 03/04/2015 Comp Metabolic Sde652 CL 92 mEq/L 03/04/2015 Comp Metabolic Hti313 CO2 24.0 mEq/L 03/04/2015 Comp Metabolic Bmd725 ANION GAP 32 03/04/2015 Comp Metabolic Wjm843 GLUCOSE 72 mg/dL 03/04/2015 Comp Metabolic Yac716 Creat 1.5 mg/dL 03/04/2015 Comp Metabolic Ucj967 eGFR 48 ml/min/1.73m2 03/04/2015 Comp Metabolic Fto485 BUN 27 mg/dL 03/04/2015 Comp Metabolic Fbx804 B/C Ratio 18.0 Ratio 03/04/2015 Comp Metabolic Hnf943 CALCIUM 9.1 mg/dL 03/04/2015 Comp Metabolic Ijs849 ALK PHOS 58 U/L 03/04/2015 Comp Metabolic Bqh762 AST(SGOT) 16 U/L 03/04/2015 Comp Metabolic Vwv246 ALT(SGPT) 13 U/L 03/04/2015 Comp Metabolic Aip073 BILI T 0.6 mg/dL 03/04/2015 Comp Metabolic Abb199 ALBUMIN 4.0 g/dL 03/04/2015 Comp Metabolic Tyu196 TPRO 6.6 g/dL 03/04/2015 Comp Metabolic Qxl718 GLOB 2.6 g/dL 03/04/2015 Comp Metabolic Caq115 A/G Ratio 1.6 Ratio 03/04/2015 Comp Metabolic Inu698 Osmo 289 mOsmo 03/04/2015 %Hba1C Tjw768 % HbA1c 18790-5 7.3 % 01/28/2015 %Hba1C Xiz739 Gluc Ave 163 mg/dL 01/28/2015 MICRALUR 7462561 MICRL MG/L 13.2 MG/L 10/01/2014 MICRALUR 2215883 XM.ALB/CRE 48.9 MG/GCR 10/01/2014 MICRALUR 9780538 CREAT MG/D 27 MG/DL 10/01/2014 MICRALUR 1046909 CRE/100 0.27 G/L 10/01/2014 A1C HPLC 3047945 A1C HPLC 76868-4 7.3 % 10/01/2014 TSH 1201937 TSH 0.423 uIU/ML 10/01/2014 TSH 7038288 TSH 0.612 uIU/ML 10/18/2013 A1C HPLC 8987921 A1C HPLC 55054-8 6.8 % 10/18/2013 GFR CALC 3559905 GFR AA >60 ML/MIN 10/18/2013 GFR CALC 9662125 GFR NON-AA 52.0L ML/MIN 10/18/2013 LIPID GRP HDL TEST 30 MG/DL 10/18/2013 LIPID GRP TRIG 425 MG/DL 10/18/2013 LIPID GRP TEST LDL HI TRIG MG/DL 10/18/2013 LIPID GRP CHOL 185 MG/DL 10/18/2013 LIPID GRP RCHOL/HDL 6.17 RATIO 10/18/2013 MICRALUR MICRL MG/L 15.6 MG/L 10/18/2013 MICRALUR XM.ALB/CRE 9.2 MG/GCR 10/18/2013 MICRALUR CREAT MG/D 169 MG/DL 10/18/2013 MICRALUR 8947715 CRE/100 1.69 G/L 10/18/2013 CHEM 14 2017540 AST 20 U/L 10/18/2013 CHEM 14 7554732 ALT 13 IU/L 10/18/2013 CHEM 14 9249786 BUN 27 MG/DL 10/18/2013 CHEM 14 9423546 ALBUMIN 4.2 GM/DL 10/18/2013 CHEM 14 4203543 CHLORIDE 100 MMOL/L 10/18/2013 CHEM 14 4621791 BILI TOT 0.5 MG/DL 10/18/2013 CHEM 14 7393698 ALK PHOS 60 U/L 10/18/2013 CHEM 14 7267621 SODIUM 131 MMOL/L 10/18/2013 CHEM 14 4104797 CREATININE 1.32 MG/DL 10/18/2013 CHEM 14 5714764 CALCIUM 9.2 MG/DL 10/18/2013 CHEM 14 0342404 POTASSIUM 4.7 MMOL/L 10/18/2013 CHEM 14 9859418 PROT TOT 7.7 GM/DL 10/18/2013 CHEM 14 6692397 GLUCOSE 140 MG/DL 10/18/2013 CHEM 14 5073403 BICARB 24 MMOL/L 10/18/2013 CHEM 14 4562993 ANION GAP 7 MEQ/L 10/18/2013 PSA EQ 1127312 PSA EQ 7.79 NG/ML 10/18/2013 CBC 3406128 WBC 6.6 10e9/L 10/18/2013 CBC 5931172 RBC 4.58 10e12/L 10/18/2013 CBC 9767981 HGB 14.6 g/dL 10/18/2013 CBC 7366884 HCT DET 42.8 % 10/18/2013 CBC 8792533 MCV 93.4 fL 10/18/2013 CBC 2252027 MCH 31.9 pg 10/18/2013 CBC 7210004 MCHC 34.1 g/dL 10/18/2013 CBC 9830032 PLT 172 10e9/L 10/18/2013 CBC 3035059 MPV 9.3 fL 10/18/2013 CBC 4382162 JAYESH % 55.4 % 10/18/2013 CBC 3992077 LY % 33.0 % 10/18/2013 CBC 1222990 MON % 8.8 % 10/18/2013 CBC 8039287 EOS % 2.6 % 10/18/2013 CBC 0006876 BASO % 0.2 % 10/18/2013 CBC 6985251 RDW 12.7 % 10/18/2013 CBC 4292756 ABS JAYESH 3.66 10e9/L 10/18/2013 CBC 1881608 ABS LYMPH 2.18 10e9/L 10/18/2013 CBC 4519459 ABS MONO 0.58 10e9/L 10/18/2013 CBC 8472404 ABS EOS 0.17 10e9/L 10/18/2013 CBC 0859036 ABS BASO 0.01 10e9/L 10/18/2013 CBC 7116974 RDW-SD 42.6 fL 10/18/2013 TSH 2364922 TSH 1.257 uIU/ML 05/05/2013 CHEM 14 0233218 AST 15 U/L 05/05/2013 CHEM 14 7516741 ALT 13 IU/L 05/05/2013 CHEM 14 3349252 BUN 22 MG/DL 05/05/2013 CHEM 14 4716354 ALBUMIN 4.2 GM/DL 05/05/2013 CHEM 14 4444199 CHLORIDE 104 MMOL/L 05/05/2013 CHEM 14 7866026 BILI TOT 0.6 MG/DL 05/05/2013 CHEM 14 0928576 ALK PHOS 52 U/L 05/05/2013 CHEM 14 7255703 SODIUM 137 MMOL/L 05/05/2013 CHEM 14 0577029 CREATININE 1.25 MG/DL 05/05/2013 CHEM 14 3156367 CALCIUM 9.1 MG/DL 05/05/2013 CHEM 14 6764221 POTASSIUM 5.0 MMOL/L 05/05/2013 CHEM 14 5135159 PROT TOT 6.7 GM/DL 05/05/2013 CHEM 14 0544727 GLUCOSE 142 MG/DL 05/05/2013 CHEM 14 1701029 BICARB 27 MMOL/L 05/05/2013 CHEM 14 8774172 ANION GAP 6 MEQ/L 05/05/2013 GFR CALC 5025756 GFR AA >60 ML/MIN 05/05/2013 GFR CALC 5490490 GFR NON-AA 56.0L ML/MIN 05/05/2013 CBC 4433875 WBC 6.1 10e9/L 05/05/2013 CBC 5304632 RBC 4.74 10e12/L 05/05/2013 CBC 9539724 HGB 14.7 g/dL 05/05/2013 CBC 1653024 HCT DET 43.6 % 05/05/2013 CBC 0699237 MCV 92.0 fL 05/05/2013 CBC 1278755 MCH 31.0 pg 05/05/2013 CBC 3330054 MCHC 33.7 g/dL 05/05/2013 CBC 8965684 PLT 168 10e9/L 05/05/2013 CBC 4947419 MPV 9.3 fL 05/05/2013 CBC 5936927 JAYESH % 53.2 % 05/05/2013 CBC 5255362 LY % 35.3 % 05/05/2013 CBC 4123699 MON % 8.7 % 05/05/2013 CBC 2173873 EOS % 2.5 % 05/05/2013 CBC 6992949 BASO % 0.3 % 05/05/2013 CBC 8595299 RDW 13.5 % 05/05/2013 CBC 1690378 ABS JAYESH 3.25 10e9/L 05/05/2013 CBC 9914559 ABS LYMPH 2.15 10e9/L 05/05/2013 CBC 4015738 ABS MONO 0.53 10e9/L 05/05/2013 CBC 9256503 ABS EOS 0.15 10e9/L 05/05/2013 CBC 6631632 ABS BASO 0.02 10e9/L 05/05/2013 CBC 4550966 RDW-SD 44.8 fL 05/05/2013 A1C HPLC 7213505 A1C HPLC 73059-6 6.4 % 05/05/2013 LIPID GRP HDL TEST 32 MG/DL 05/05/2013 LIPID GRP TRIG 170 MG/DL 05/05/2013 LIPID GRP TEST LDL 73 MG/DL 05/05/2013 LIPID GRP CHOL 139 MG/DL 05/05/2013 LIPID GRP RCHOL/HDL 4.34 RATIO 05/05/2013 CHEM 14 8093180 AST 17 U/L 11/25/2012 CHEM 14 7017034 ALT 21 IU/L 11/25/2012 CHEM 14 6637357 BUN 20 MG/DL 11/25/2012 CHEM 14 2275614 ALBUMIN 4.4 GM/DL 11/25/2012 CHEM 14 0288664 CHLORIDE 99 MMOL/L 11/25/2012 CHEM 14 0985910 BILI TOT 0.6 MG/DL 11/25/2012 CHEM 14 1603774 ALK PHOS 50 U/L 11/25/2012 CHEM 14 7872030 SODIUM 129 MMOL/L 11/25/2012 CHEM 14 4645771 CREATININE 1.20 MG/DL 11/25/2012 CHEM 14 1212641 CALCIUM 9.2 MG/DL 11/25/2012 CHEM 14 4407928 POTASSIUM 5.1 MMOL/L 11/25/2012 CHEM 14 4860226 PROT TOT 6.7 GM/DL 11/25/2012 CHEM 14 6456424 GLUCOSE 196 MG/DL 11/25/2012 CHEM 14 8599032 BICARB 25 MMOL/L 11/25/2012 CHEM 14 5389632 ANION GAP 5 MEQ/L 11/25/2012 CBC 4098795 WBC 6.1 10e9/L 11/25/2012 CBC 9328166 RBC 4.78 10e12/L 11/25/2012 CBC 0627382 HGB 15.0 g/dL 11/25/2012 CBC 4472486 HCT DET 43.4 % 11/25/2012 CBC 2504087 MCV 90.8 fL 11/25/2012 CBC 0760314 MCH 31.4 pg 11/25/2012 CBC 3314728 MCHC 34.6 g/dL 11/25/2012 CBC 4791757 PLT 174 10e9/L 11/25/2012 CBC 3624583 MPV 9.5 fL 11/25/2012 CBC 4928943 JAYESH % 54.6 % 11/25/2012 CBC 0296817 LY % 32.9 % 11/25/2012 CBC 2535845 MON % 9.6 % 11/25/2012 CBC 8566209 EOS % 2.6 % 11/25/2012 CBC 2108426 BASO % 0.3 % 11/25/2012 CBC 6017255 RDW 12.9 % 11/25/2012 CBC 2413432 ABS JAYESH 3.33 10e9/L 11/25/2012 CBC 2127517 ABS LYMPH 2.01 10e9/L 11/25/2012 CBC 7033647 ABS MONO 0.59 10e9/L 11/25/2012 CBC 3378694 ABS EOS 0.16 10e9/L 11/25/2012 CBC 4249981 ABS BASO 0.02 10e9/L 11/25/2012 CBC 6656373 RDW-SD 42.3 fL 11/25/2012 LIPID GRP HDL TEST 39 MG/DL 11/25/2012 LIPID GRP TRIG 204 MG/DL 11/25/2012 LIPID GRP TEST LDL 100 MG/DL 11/25/2012 LIPID GRP CHOL 180 MG/DL 11/25/2012 LIPID GRP RCHOL/HDL 4.62 RATIO 11/25/2012 A1C HPLC 3710789 A1C HPLC 73456-5 8.2 % 11/25/2012 GFR CALC 9917134 GFR AA >60 ML/MIN 11/25/2012 GFR CALC 1513985 GFR NON-AA 58.0L ML/MIN 11/25/2012 TSH 0764568 TSH 0.636 uIU/ML 01/13/2012 A1C HPLC 2765320 A1C HPLC 90458-2 7.9 % 01/13/2012 GFR CALC 0850646 GFR AA >60 ML/MIN 01/13/2012 GFR CALC 2543623 GFR NON-AA 59.0L ML/MIN 01/13/2012 CBC 2406083 WBC 7.8 10e9/L 01/13/2012 CBC 7453879 RBC 4.93 10e12/L 01/13/2012 CBC 2417014 HGB 15.3 g/dL 01/13/2012 CBC 2769921 HCT DET 43.6 % 01/13/2012 CBC 9066696 MCV 88.4 fL 01/13/2012 CBC 8420442 MCH 31.0 pg 01/13/2012 CBC 9019342 MCHC 35.1 g/dL 01/13/2012 CBC 2085776 PLT 173 10e9/L 01/13/2012 CBC 0418077 MPV 9.1 fL 01/13/2012 CBC 7890104 JAYESH % 57.6 % 01/13/2012 CBC 3638909 LY % 31.5 % 01/13/2012 CBC 3632710 MON % 8.8 % 01/13/2012 CBC 5988965 EOS % 1.8 % 01/13/2012 CBC 8828500 BASO % 0.3 % 01/13/2012 CBC 9214286 RDW 12.9 % 01/13/2012 CBC 6573999 ABS JAYESH 4.49 10e9/L 01/13/2012 CBC 4567220 ABS LYMPH 2.46 10e9/L 01/13/2012 CBC 5747625 ABS MONO 0.69 10e9/L 01/13/2012 CBC 3532354 ABS EOS 0.14 10e9/L 01/13/2012 CBC 5375647 ABS BASO 0.02 10e9/L 01/13/2012 CBC 4945651 RDW-SD 41.2 fL 01/13/2012 CHEM 14 1156432 AST 21 U/L 01/13/2012 CHEM 14 6374969 ALT 23 IU/L 01/13/2012 CHEM 14 7219844 BUN 20 MG/DL 01/13/2012 CHEM 14 8933777 ALBUMIN 4.4 GM/DL 01/13/2012 CHEM 14 0121164 CHLORIDE 94 MMOL/L 01/13/2012 CHEM 14 0508615 BILI TOT 0.5 MG/DL 01/13/2012 CHEM 14 7213383 ALK PHOS 60 U/L 01/13/2012 CHEM 14 4350618 SODIUM 131 MMOL/L 01/13/2012 CHEM 14 8241496 CREATININE 1.20 MG/DL 01/13/2012 CHEM 14 1659016 CALCIUM 9.5 MG/DL 01/13/2012 CHEM 14 4175583 POTASSIUM 4.3 MMOL/L 01/13/2012 CHEM 14 1108565 PROT TOT 6.5 GM/DL 01/13/2012 CHEM 14 6242825 GLUCOSE 172 MG/DL 01/13/2012 CHEM 14 2737565 BICARB 26 MMOL/L 01/13/2012 CHEM 14 1391038 ANION GAP 11 MEQ/L 01/13/2012 Review of [...] No anxiety 05/13/2017 Constitutional No recent illness 2016 Constitutional No [...] and affect 05/13/2017 None Full Exam - General 1994 [...] clear 08/24/2016 None Full Exam - General 1995 Ears/Nose/Throat [...] accomodation 12/26/2013 None Full Exam - General 1995 Ears/Nose/Throat otoscopic exam Overall: external auditory canals clear 12/26/2013 None Full Exam - General 1995 Ears/Nose/Throat otoscopic exam Overall: tympanic membranes clear 12/26/2013 None Full Exam - General 1995 Ears/Nose/Throat oral cavity/pharynx/larynx Overall: oral mucosa clear 12/26/2013 None Full Exam - General 1995 Ears/Nose/Throat oral cavity/pharynx/larynx Overall: oropharyngeal mucosa clear 12/26/2013 None Full Exam - General 1995 Ears/Nose/Throat oral cavity/pharynx/larynx Overall: no masses 12/26/2013 [...] accomodation 07/24/2013 None Full Exam - General 1995 Ears/Nose/Throat otoscopic exam Overall: external auditory canals clear 07/24/2013 None Full Exam - General 1995 Ears/Nose/Throat [...] accomodation 03/20/2013 None Full Exam - General 1995 Eyes conjunctiva /eyelids Overall: conjunctiva clear 03/20/2013 None Full Exam - General 1995 Eyes conjunctiva /eyelids Overall: eyelids normal 03/20/2013 None Full Exam - General 1995 Eyes conjunctiva /eyelids Overall: cornea clear 03/20/2013 [...] lips 03/20/2013 None Full Exam - General 1995 [...] retractions 03/20/2013 None Full Exam - General 1995 Respiratory [...] masses 01/19/2013 None Full Exam - General 1995 Respiratory auscultation Overall: breath sounds clear bilaterally 01/19/2013 None Full Exam - General 1995 Respiratory respiratory effort/rhythm Overall: no retractions 01/19/2013 None Full Exam - General 1995 Respiratory respiratory effort/rhythm Overall: normal rate 01/19/2013 None Full Exam - General 1995 Cardiovascular auscultation of heart Overall: regular rate [...] masses 12/21/2012 None Full Exam - General 1995 Respiratory [...] intention 12/21/2012 None Full Exam - General 1994 Neurologic coordination Tremors: resting 12/21/2012 None Full Exam - General 1994 Neurologic cranial nerves Overall: crainial nerves 2 - 12 grossly intact 12/21/2012 None Full Exam - General 1994 Psychiatric orientation/consciousness Overall: oriented to person, place and time 12/21/2012 None Full Exam - General 1994 Psychiatric mood and affect Overall: normal mood and affect 12/21/2012 None Full Exam - General 1994 Psychiatric mood and affect Mood: happy 12/21/2012 None Full Exam - General 1994 Abdomen hernia exam Abdominal hernia present: non-tender 11/30/2012 DIASTASIS RECTI Full Exam - General 1994 Neurologic coordination Tremors: resting 11/30/2012 None Full Exam - General 1994 Neurologic coordination Tremors: intention 11/30/2012 None Full Exam - General 1994 Neurologic gait Conventional walking: wide-based 11/30/2012 None [...] sounds 11/30/2012 None Full Exam - General 1994 Cardiovascular auscultation of heart Overall: no murmurs 11/30/2012 None Full Exam - General 1994 Abdomen abdominal exam Overall: no tenderness 11/30/2012 None Full Exam - General 1994 Abdomen [...] 11/30/2012 None Full Exam - General 1995 Psychiatric orientation/consciousness Overall: oriented to person, place and time 11/30/2012 None Full Exam - General 1994 Psychiatric mood and affect Overall: normal mood and affect 11/30/2012 None Full Exam - General 1995 Psychiatric mood and affect Mood: happy 11/30/2012 None Full Exam - General 1995 [...] 05/30/2012 None Full Exam - General 1994 Ears/Nose/Throat otoscopic exam Tympanic membrane: a normal [...] bilaterally 04/26/2012 None Full Exam - General 1995 Ears/Nose/Throat otoscopic exam External auditory canal: partial cerumen occlusion 04/26/2012 None Full Exam - General 1995 Ears/Nose/Throat otoscopic exam Tympanic membrane: a normal exam 04/26/2012 None Full Exam - General 1995 [...] clear 04/14/2012 None Full Exam - General 1995 Ears/Nose/Throat [...] masses 01/13/2012 None Full Exam - General 1994 Respiratory auscultation Overall: breath sounds clear bilaterally 01/13/2012 None Full Exam - General 1994 Respiratory respiratory effort/rhythm Overall: no retractions 01/13/2012 None Full Exam - General 1994 Respiratory respiratory effort/rhythm Overall: normal rate 01/13/2012 None Full Exam - General 1995 Cardiovascular auscultation of heart Overall: regular rate [...] non-tender 01/13/2012 None Full Exam - General 1995 Chest/Breast breast and axillae palpation Overall: no nipple discharge 01/13/2012 None Full Exam - General 1994 Chest/Breast breast and axillae palpation Lower outer quadrant: no mass 01/13/2012 None Full Exam - General 1995 [...] _ 01/13/2012 None Full Exam - General 1994 [...] happy 08/05/2011 None Full Exam - General 1995 Musculoskeletal [...] WOUN RTS (CULTURE OTHR SPECIMN AEROBIC) CPT-4: 87271 03/19/2015 DRAINAGE OF SKIN ABSCESS CPT-4: 69886 03/19/2015 ADMIN PNEUMOCOCCAL VACCINE SNOMED CT: 83132201 CPT-4: G0009 03/08/2015 PNEUMOCOCCAL VACC 13 THALIA IM Formatting Model/CDA Sections, Assigned to SNOMED CT: 31731561 CPT-4: 46726Uaibgfu 03/08/2015 ADMIN PNEUMOCOCCAL VACCINE SNOMED CT: 51768030 CPT-4: G0009 01/23/2014 Pneumococcal Polysaccharide Vaccine, 23-Valent, Ad Assigned to/Merissa Sutton CPT-4: [id number] 01/23/2014 DESTRUCT PREMALG LESION CPT-4: 54522 10/24/2013 DESTRUCT PREMALG LES 2-14 CPT-4: 36268 10/24/2013 ROUTINE VENIPUNCTURE CPT-4: 03717 05/05/2013 PRESCRIP TRANSMIT VIA ERX SY CPT-4: G8553 04/24/2013 DESTRUCT PREMALG LESION CPT-4: 46318 12/26/2012 PRESCRIP TRANSMIT VIA ERX SY CPT-4: G8553 11/30/2012 ROUTINE VENIPUNCTURE CPT-4: 60588 11/25/2012 PRESCRIP TRANSMIT VIA ERX SY CPT-4: G8553 05/30/2012 PRESCRIP TRANSMIT VIA ERX SY CPT-4: G8553 04/14/2012 PRESCRIP TRANSMIT VIA ERX SY CPT-4: G8553 02/22/2012 ROUTINE VENIPUNCTURE CPT-4: 75206 01/13/2012 ROUTINE VENIPUNCTURE CPT-4: 81763 08/06/2011 ROUTINE VENIPUNCTURE CPT-4: 73476 06/25/2011 Vital Signs Date Vital 05/13/2017 Blood Pressure 1: 154/82 Code : 8480-6 BMI: 30.0 Code : 91747-3 Heart Rate 1 : 65 bpm Height: 6'2" SpO2: 98% Weight: 234 lbs 04/15/2017 Blood Pressure 1: 152/74 Code : 8480-6 BMI: 29.7 Code : 63757-7 Heart Rate 1 : 64 bpm Height: 6'2" SpO2: 98% Weight: 231 lbs 02/04/2017 Blood Pressure 1: 140/78 Code : 8480-6 BMI: 30.0 Code : 99298-3 Heart Rate 1 : 83 bpm Height: 6'2" SpO2: 97% Weight: 234 lbs 10/12/2016 Blood Pressure 1: 148/68 Code : 8480-6 BMI: 29.3 Code : 89222-6 Heart Rate 1 : 65 bpm Height: 6'2" SpO2: 100% Weight: 228 lbs 10/08/2016 Blood Pressure 1: 148/68 Code : 8480-6 BMI: 29.3 Code : 70805-0 Heart Rate 1 : 65 bpm Height: 6'2" SpO2: 100% Weight: 228 lbs 8 oz 09/10/2016 Blood Pressure 1: 142/68 Code : 8480-6 BMI: 29.3 Code : 02462-8 Heart Rate 1 : 75 bpm Height: 6'2" SpO2: 97% Weight: 228 lbs 08/24/2016 Blood Pressure 1: 156/86 Code : 8480-6 BMI: 28.1 Code : 49721-6 Heart Rate 1 : 72 bpm Height: 6'2" SpO2: 97% Weight: 219 lbs 08/06/2016 Blood Pressure 1: 172/90 Code : 8480-6 BMI: 29.0 Code : 91686-7 Heart Rate 1 : 68 bpm Height: 6'2" SpO2: 98% Temperature: 36.1 (C) / 96.9 (F) Weight: 226 lbs 07/30/2016 Blood Pressure 1: 138/86 Code : 8480-6 BMI: 29.7 Code : 58428-2 Heart Rate 1 : 80 bpm Height: 6'2" SpO2: 95% Temperature: 36.5 (C) / 97.7 (F) Weight: 231 lbs 06/22/2016 Blood Pressure 1: 145/82 Code : 8480-6 Heart Rate 1: 77 bpm Respiratory Rate : 18 bpm SpO2: 97% Weight: 231 lbs 04/27/2016 Blood Pressure 1: 158/76 Code : 8480-6 Blood Pressure 1: 182/78 Code: 8480-6 BMI: 30.4 Code: 10829-0 Heart Rate 1: 69 bpm Height: 6'2" SpO2: 97% Weight: 237 lbs 03/23/2016 Blood Pressure 1: 140/82 Code : 8480-6 BMI: 30.4 Code : 66620-5 Heart Rate 1 : 77 bpm Height: 6'2" SpO2: 93% Weight: 237 lbs 01/20/2016 Blood Pressure 1: 142/80 Code : 8480-6 BMI: 31.2 Code : 51841-9 Heart Rate 1 : 64 bpm Height: 6'2" SpO2: 93% Weight: 243 lbs 12/16/2015 Blood Pressure 1: 138/88 Code : 8480-6 BMI: 30.3 Code : 93344-2 Heart Rate 1 : 62 bpm Height: 6'2" SpO2: 97% Weight: 236 lbs 12/09/2015 Blood Pressure 1: 148/80 Code : 8480-6 Blood Pressure 1: 198/92 Code: 8480-6 Blood Pressure 1: 152/70 Code: 8480-6 BMI: 30.3 Code: 53319-6 Heart Rate 1: 84 bpm Height: 6'2" Weight: 236 lbs 11/25/2015 Blood Pressure 1: 160/80 Code : 8480-6 BMI: 30.2 Code : 59476-1 Heart Rate 1 : 68 bpm Height: 6'2" SpO2: 96% Weight: 235 lbs 09/02/2015 Blood Pressure 1: 122/64 Code : 8480-6 BMI: 30.2 Code : 02820-0 Heart Rate 1 : 86 bpm Height: 6'2" SpO2: 98% Weight: 235 lbs 08/05/2015 Blood Pressure 1: 130/70 Code : 8480-6 Heart Rate 1: 81 bpm SpO2: 97% Weight: 233 lbs 07/25/2015 Blood Pressure 1: 142/80 Code : 8480-6 BMI: 30.0 Code : 29053-8 Heart Rate 1 : 74 bpm Height: 6'2" SpO2: 95% Weight: 234 lbs 06/03/2015 Blood Pressure 1: 150/68 Code : 8480-6 BMI: 30.0 Code : 17668-4 Heart Rate 1 : 66 bpm Height: 6'2" SpO2: 96% Weight: 234 lbs 03/19/2015 Blood Pressure 1: 154/78 Code : 8480-6 BMI: 30.3 Code : 07222-6 Heart Rate 1 : 63 bpm Height: 6'2" SpO2: 96% Weight: 236 lbs 03/04/2015 Blood Pressure 1: 124/68 Code : 8480-6 BMI: 30.2 Code : 00930-4 Heart Rate 1 : 60 bpm Height: 6'2" SpO2: 97% Weight: 235 lbs 02/20/2015 Blood Pressure 1: 160/84 Code : 8480-6 BMI: 30.8 Code : 02413-5 Heart Rate 1 : 79 bpm Height: 6'2" SpO2: 96% Weight: 240 lbs 02/11/2015 Blood Pressure 1: 170/102 Code: 8480-6 BMI: 31.1 Code: 95031-1 Heart Rate 1: 81 bpm Height: 6'2" SpO2: 96% Weight: 242 lbs 01/28/2015 Blood Pressure 1: 174/80 Code : 8480-6 Blood Pressure 2: 168/74 Code: 8480-6 BMI: 31.2 Code: 68104-1 Heart Rate 1: 74 bpm Height: 6'2" SpO2: 97% Weight: 243 lbs 10/01/2014 Blood Pressure 1: 152/84 Code : 8480-6 BMI: 30.4 Code : 08984-6 Heart Rate 1 : 80 bpm Height: 6'2" SpO2: 96% Weight: 237 lbs 05/30/2014 Blood Pressure 1: 140/82 Code : 8480-6 BMI: 30.6 Code : 24398-0 Heart Rate 1 : 86 bpm Height: 6'2" Weight: 238 lbs 02/28/2014 Blood Pressure 1: 152/86 Code : 8480-6 BMI: 29.5 Code : 10293-4 Heart Rate 1 : 64 bpm Height: 6'2" Weight: 230 lbs 01/23/2014 Blood Pressure 1: 142/68 Code : 8480-6 BMI: 29.7 Code : 28086-6 Heart Rate 1 : 80 bpm Height: 6'2" Weight: 231 lbs 12/26/2013 Blood Pressure 1: 150/72 Code : 8480-6 BMI: 29.3 Code : 84459-5 Heart Rate 1 : 60 bpm Height: 6'2" Respiratory Rate: 16 bpm Weight: 228 lbs 8 oz 10/24/2013 Blood Pressure 1: 140/84 Code : 8480-6 Heart Rate 1: 60 bpm 10/17/2013 Blood Pressure 1: 166/72 Code : 8480-6 BMI: 28.8 Code : 84232-1 Heart Rate 1 : 68 bpm Height: 6'2" Weight: 224 lbs 07/24/2013 Blood Pressure 1: 112/64 Code : 8480-6 BMI: 29.1 Code : 74515-3 Heart Rate 1 : 80 bpm Height: 6'2" Weight: 227 lbs 04/24/2013 Blood Pressure 1: 130/74 Code : 8480-6 BMI: 28.9 Code : 72920-8 Heart Rate 1 : 76 bpm Height: 6'2" Weight: 225 lbs 6 oz 03/20/2013 Blood Pressure 1: 150/70 Code : 8480-6 BMI: 29.7 Code : 93485-2 Heart Rate 1 : 76 bpm Height: 6'2" Temperature: 37.0 (C) / 98.6 (F) Weight: 231 lbs 01/19/2013 Blood Pressure 1: 150/78 Code : 8480-6 BMI: 30.2 Code : 34071-8 Heart Rate 1 : 84 bpm Height: 6'2" Weight: 235 lbs 12/26/2012 Blood Pressure 1: 142/78 Code : 8480-6 BMI: 29.9 Code : 05028-4 Heart Rate 1 : 84 bpm Height: 6'2" Weight: 233 lbs 12/21/2012 Blood Pressure 1: 142/80 Code : 8480-6 BMI: 29.5 Code : 60212-3 Heart Rate 1 : 80 bpm Height: 6'2" Weight: 230 lbs 11/30/2012 Blood Pressure 1: 146/78 Code : 8480-6 BMI: 29.4 Code : 88122-0 Heart Rate 1 : 80 bpm Height: 6'2" Weight: 229 lbs 05/30/2012 Blood Pressure 1: 150/74 Code : 8480-6 BMI: 29.4 Code : 97465-8 Heart Rate 1 : 76 bpm Height: 6'2" Respiratory Rate: 16 bpm Weight: 229 lbs 04/26/2012 Blood Pressure 1: 124/64 Code : 8480-6 Heart Rate 1: 90 bpm SpO2: 98% Temperature: 36.7 (C) / 98.1 (F) Weight: 04/14/2012 Blood Pressure 1: 150/88 Code : 8480-6 Blood Pressure 2: 150/90 Code: 8480-6 BMI: 29.4 Code: 56384-2 Heart Rate 1: 72 bpm Height: 6'2" [...] Code : 8480-6 BMI: 28.9 Code : 59134-7 Heart Rate 1 : 64 bpm Height: 6'2" Weight: 225 lbs 08/05/2011 Blood Pressure 1: 142/72 Code : 8480-6 BMI: 29.3 Code : 67784-1 Heart Rate 1 : 80 bpm Height: 6'2" Weight: 228 lbs 07/01/2011 Blood Pressure 1: 136/70 Code : 8480-6 BMI: 29.2 Code : 60745-2 Heart Rate 1 : 68 bpm Height: [...] mellitus Pertinent Findings Denies nausea 05/13/2017 None hypertension Quality primary hypertension 04/15/2017 None [...] doing physical therapy for parkinson's disease at [facility] diabetes mellitus Alleviating Factors insulin 01/19/2013 [...] data Encounters Encounter Performer Location Codes Date 59706 EST. PATIENT, LEVEL IV Diagnosis: Essential (primary) hypertension[ICD10: I10] Diagnosis: Localized edema[ICD10: R60.0] Diagnosis: Atrophy of thyroid (acquired)[ICD10: E03.4] Diagnosis: Type 2 diabetes mellitus without complications[ICD10: E11.9] [facility] CPT-4: 09391 05/13/2017 83082 EST. PATIENT, LEVEL IV Diagnosis: Essential (primary) hypertension[ICD10: I10] Diagnosis: Atrophy of thyroid (acquired)[ICD10: E03.4] Diagnosis: Type 2 diabetes mellitus without complications[ICD10: E11.9] [facility] CPT-4: 30760 04/15/2017 ([id number]) 15498 EST. PATIENT, LEVEL IV Diagnosis: Type 2 diabetes mellitus with hyperglycemia[ICD10: E11.65] Diagnosis: Essential (primary) hypertension[ICD10: I10] Diagnosis: Hypothyroidism, unspecified[ICD10: E03.9] [facility] CPT-4: 85168 02/04/2017 ([id number]) 09740 EST. PATIENT, LEVEL III Diagnosis: Essential (primary) hypertension[ICD10: I10] Diagnosis: Hypothyroidism, unspecified[ICD10: E03.9] Ginny Medley MD, [facility] CPT-4: 31064 10/08/2016 ([id number]) 05873 EST. PATIENT, LEVEL III Diagnosis: Allergic rhinitis due to pollen[ICD10: J30.1] Diagnosis: Hypothyroidism, unspecified[ICD10: E03.9] Ginny Medley MD, [facility] CPT-4: 84934 09/10/2016 ([id number]) 85069 EST. 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 PATIENT, LEVEL IV Diagnosis: Abdominal distension (gaseous)[ICD10: R14.0] Diagnosis: Cough[ICD10: R05] Diagnosis: Acute bronchitis, unspecified[ICD10: J20.9] Diagnosis: Essential (primary) hypertension[ICD10: I10] Ginny Medley MD, [facility] CPT-4: 32637 08/06/2016 ([id number]) 22214 EST. PATIENT, LEVEL III Diagnosis: Cough[ICD10: R05] Diagnosis: Acute upper respiratory infection, unspecified[ICD10: J06.9] Ginny Medley MD, [facility] CPT-4: 10045 07/30/2016 ([id number]) 52555 EST. PATIENT, LEVEL IV Diagnosis: Type 2 diabetes mellitus with hyperglycemia[ICD10: E11.65] Diagnosis: Essential (primary) hypertension[ICD10: I10] Diagnosis: Parkinson's disease[ICD10: G20] Diagnosis: Localized edema[ICD10: R60.0] Ginny Medley MD, [facility] CPT-4: 12908 06/22/2016 ([id number]) 95712 EST. PATIENT, LEVEL IV Diagnosis: Essential (primary) hypertension[ICD10: I10] Diagnosis: Type 2 diabetes mellitus with hyperglycemia[ICD10: E11.65] Diagnosis: Hypo-osmolality and hyponatremia[ICD10: E87.1] Diagnosis: Hesitancy of micturition[ICD10: R39.11] Ginny Medley MD, [facility] CPT-4: 38866 04/27/2016 [id number]) 70820 EST. PATIENT, LEVEL III Diagnosis: Essential (primary) hypertension[ICD10: I10] Diagnosis: Localized edema[ICD10: R60.0] Ginny Medley MD, [facility] CPT-4: 04910 03/23/2016 ([id number]) 83448 EST. PATIENT, LEVEL IV Diagnosis: Low back pain[ICD10: M54.5] Diagnosis: Hypo-osmolality and hyponatremia[ICD10: E87.1] Diagnosis: Essential (primary) hypertension[ICD10: I10] Diagnosis: Localized edema[ICD10: R60.0] Diagnosis: Type 2 diabetes mellitus with hyperglycemia[ICD10: E11.65] Ginny Medley MD, [facility] CPT-4: 24957 01/20/2016 ([id number]) 14874 EST. PATIENT, LEVEL III Diagnosis: Type 2 diabetes mellitus with hyperglycemia[ICD10: E11.65] Diagnosis: Essential (primary) hypertension[ICD10: I10] Diagnosis: Hypo-osmolality and hyponatremia[ICD10: E87.1] Ginny Medley MD, [facility] CPT-4: 60730 12/16/2015 ([id number]) 80275 EST. PATIENT, LEVEL III Diagnosis: Essential (primary) hypertension[ICD10: I10] Diagnosis: Hypo-osmolality and hyponatremia[ICD10: E87.1] Ginny Medley MD, [facility] CPT-4: 67745 12/09/2015 [id number]) 98449 EST. PATIENT, LEVEL IV Diagnosis: Essential (primary) hypertension[ICD10: I10] Diagnosis: Type 2 diabetes mellitus with hyperglycemia[ICD10: E11.65] Diagnosis: Parkinson's disease[ICD10: G20] Ginny Medley MD, [facility] CPT-4: 54646 11/25/2015 09294 EST. PATIENT, LEVEL III Diagnosis: Localized edema[ICD10: R60.0] Diagnosis: Essential (primary) hypertension[ICD10: I10] Bonita Medley MD, [facility] CPT-4: 29628 09/02/2015 ([id number]) 06332 EST. PATIENT, LEVEL III Diagnosis: Localized edema[ICD10: R60.0] Ginny Medley MD, [facility] CPT-4: 45518 08/05/2015 ([id number]) 64185 EST. PATIENT, LEVEL III Diagnosis: Localized edema[ICD10: R60.0] Diagnosis: Unspecified open wound, right ankle, initial encounter[ICD10: S91.001A] Ginny Medley MD, [facility] CPT-4: 47699 ([id number]) 07863 EST. PATIENT, LEVEL IV Diagnosis: Essential (primary) hypertension[ICD10: I10] Diagnosis: Localized edema[ICD10: R60.0] Diagnosis: Low back pain[ICD10: M54.5] Diagnosis: Type 2 diabetes mellitus with hyperglycemia[ICD10: E11.65] Ginny Medley MD, [facility] CPT-4: 08279 06/03/2015 ([id number]) Miscellaneous no charge Diagnosis: Encounter for other specified aftercare[ICD10: Z51.89] Yoli Medley MD, [facility] CPT-4: 31539 03/20/2015 77128 EST. PATIENT, LEVEL IV Diagnosis: Cutaneous abscess of chest wall[ICD10: L02.213] Yoli Medley MD, [facility] CPT-4: 82948 03/19/2015 ([id number]) 83798 EST. PATIENT, LEVEL III Diagnosis: Edema, unspecified[ICD10: R60.9] Yoli Medley MD, [facility] CPT-4: 06043 03/04/2015 95728 EST. PATIENT, LEVEL III Diagnosis: Edema, unspecified[ICD10: R60.9] Diagnosis: Unspecified open wound, right ankle, initial encounter[ICD10: S91.001A] Yoli Medley MD, [facility] CPT-4: 72437 07/2014 ([id number]) 63039 EST. PATIENT, LEVEL III Diagnosis: Edema, unspecified[ICD10: R60.9] Yoli Medley MD [facility] CPT-4: 34467 02/11/2015 ([id number]) 51036 EST. PATIENT, LEVEL IV Diagnosis: Type 2 diabetes mellitus with hyperglycemia[ICD10: E11.65] Diagnosis: Essential (primary) hypertension[ICD10: I10] Diagnosis: Edema, unspecified[ICD10: R60.9] Yoli Medley MD [facility] CPT-4: 99712 01/28/2015 ([id number]) 64925 EST. PATIENT, LEVEL IV Diagnosis: DIABETES TYPE II[ICD9: 250.00] Diagnosis: ESSENTIAL HYPERTENSION[ICD9: 401.9] Diagnosis: Parkinsons disease[ICD9: 332.0] Yoli Medley MD [facility] CPT- 4: 28671 10/01/2014 ([id number]) 33767 EST. PATIENT, LEVEL IV Diagnosis: ESSENTIAL HYPERTENSION[ICD9: 401.9] Diagnosis: DIABETES TYPE II[ICD9: 250.00] Diagnosis: Parkinsons disease[ICD9: 332.0] Yoli Medley MD [facility] CPT- 4: 63480 05/30/2014 ([id number]) 10484 EST. PATIENT, LEVEL IV Diagnosis: DIABETES TYPE II[ICD9: 250.00] Diagnosis: ESSENTIAL HYPERTENSION[ICD9: 401.9] Diagnosis: Back pain[ICD9: 724.5] Yoli Medley MD [facility] CPT-4: 05789 02/28/2014 ([id number]) 19291 EST. PATIENT, LEVEL III Diagnosis: ESOPHAGEAL REFLUX[ICD9: 530.81] Diagnosis: Esophageal ulcer[ICD9: 530.20] Yoli Medley MD [facility] CPT- 4: 49621 01/23/2014 ([id number]) 78021 EST. PATIENT, LEVEL IV Diagnosis: ESOPHAGEAL REFLUX[ICD9: 530.81] Diagnosis: ESSENTIAL HYPERTENSION[ICD9: 401.9] Yoli Medley MD [facility] CPT-4: 56433 12/26/2013 ([id number]) 19078 EST. PATIENT, LEVEL IV Diagnosis: Diabetes type 2, uncontrolled[ICD9: 250.02] Diagnosis: ESSENTIAL HYPERTENSION[ICD9: 401.9] Diagnosis: Back pain[ICD9: 724.5] Diagnosis: ELEVATED PSA[ICD9: 790.93] Yloi Medley MD [facility] CPT- 4: 50372 10/17/2013 ([id number]) 33797 EST. PATIENT, LEVEL IV Diagnosis: DIABETES TYPE II[SNOMED: 467047664] Diagnosis: ESSENTIAL HYPERTENSION[SNOMED: 24345485] Diagnosis: Sleep apnea[ICD9: 780.57] Yoli Medley MD [facility] CPT-4: 59924 07/24/2013 ([id number]) 82968 EST. PATIENT, LEVEL IV Diagnosis: DIABETES TYPE II[SNOMED: 435638253] Diagnosis: ESSENTIAL HYPERTENSION[SNOMED: 68151189] Diagnosis: HYPERLIPIDEMIA[ICD9: 272.4] Yoli Medley MD [facility] CPT- 4: 55895 04/24/2013 ([id number]) 74491 EST. PATIENT, LEVEL III Diagnosis: DIABETES TYPE II[SNOMED: 370932785] Yoli Medley MD [facility] CPT-4: 38883 03/20/2013 ([id number]) 29910 EST. PATIENT, LEVEL III Diagnosis: DM W/O COMPLICATION TYPE II, UNCONTROLLED[SNOMED: 78714958] Yoli Medley MD [facility] CPT-4: 17674 01/19/2013 ([id number]) 08196 EST. PATIENT, LEVEL III Diagnosis: DM W/O COMPLICATION TYPE II, UNCONTROLLED[SNOMED: 09222756] Yoli Medley MD [facility] CPT-4: 27198 12/21/2012 ([id number]) 07207 EST. PATIENT, LEVEL IV Diagnosis: DM W/O COMPLICATION TYPE II, UNCONTROLLED[SNOMED: 35680473] Diagnosis: Parkinsons disease[ICD9: 332.0] Diagnosis: Back pain[ICD9: 724.5] Diagnosis: Gait instability[ICD9: 781.2] Yoli Medley MD [facility] CPT- 4: 12247 11/30/2012 ([id number]) 84692 EST. PATIENT, LEVEL IV Diagnosis: ESSENTIAL HYPERTENSION[SNOMED: 51205137] Diagnosis: Abdominal pain[ICD9: 789.00] Diagnosis: DIABETES TYPE II[SNOMED: 310059235] Yoli Medley MD, [facility] CPT-4: 60468 05/30/2012 ([id number]) 28616 EST. PATIENT, LEVEL III Diagnosis: Gastroenteritis[ICD9: 558.9] Ginny Medley MD, [facility] CPT-4: 50748 04/26/2012 ([id number]) 26708 EST. PATIENT, LEVEL IV Diagnosis: ESSENTIAL HYPERTENSION[SNOMED: 93289581] Diagnosis: DIABETES TYPE II[SNOMED: 479104307] Diagnosis: Claw toe[ICD9: 735.5] Yoli Medley MD, [facility] CPT-4: 83350 04/14/2012 ([id number]) 97155 EST. PATIENT, LEVEL III Diagnosis: Rash[ICD9: 782.1] Diagnosis: DERMATOPHYTOSIS OF FOOT[ICD9: 110.4] Ginny Medley MD, [facility] CPT-4: 64527 02/22/2012 ([id number]) 39761 EST. PATIENT, LEVEL IV Diagnosis: DM W/O COMPLICATION TYPE II, UNCONTROLLED[SNOMED: 08621546] Diagnosis: ESSENTIAL HYPERTENSION[SNOMED: 51088209] Diagnosis: Constipation - functional[ICD9: 564.09] Diagnosis: Encounter for long-term (current) use of other high-risk medications[ ICD9: V58.69] Yoli Medley MD, [facility] CPT-4: 73749 01/13/2012 ([id number]) 10641 EST. PATIENT, LEVEL IV Diagnosis: ESSENTIAL HYPERTENSION[SNOMED: 51386103] Diagnosis: DIABETES TYPE II[SNOMED: 513232621] Yoli Medley MD, [facility] CPT-4: 54694 09/02/2011 04270 EST. PATIENT, LEVEL IV Diagnosis: LUMBAGO[ICD9: 724.2] Diagnosis: Sacroiliitis[ICD9: 720.2] Yoli Medley MD, [facility] CPT-4: 83511 08/05/2011 ([id number]) 36508 EST. PATIENT, LEVEL IV Diagnosis: ESSENTIAL HYPERTENSION[SNOMED: 66187607] Diagnosis: DIABETES TYPE II[SNOMED: 724462893] Diagnosis: Breast mass in male[ICD9: 611.72] Diagnosis: Chronic hyponatremia[ICD9: 276.1] [facility] CPT-4: 80801 07/01/2011 Plan of Care Planned Activity Notes [...] controlled. 05/13/2017 Appointment: Yoli Medley WPtel: [phone] [facility] (15 min) Moderate 05/13/2017 Patient Education: Patient Medication Summary Completed 05/13/2017 Appointment: Bonita Villa [facility]el[phone] (15 min) Moderate 04/28/2017 Appointment: Bonita Villa WPtel: [phone] [facility] (30 min) Complex 04/16/2017 Visit Plan: Hypertension [...] control. 04/15/2017 Appointment: Bonita Villa WPtel: [phone] [facility] (30 min) Complex 04/15/2017 Patient Education: Patient [...] of control. 02/04/2017 Appointment: Ginny Pearl WPtel: [phone] [place] (30 min) Complex 02/04/2017 Patient Education: Patient Medication Summary Completed 02/04/2017 Patient Education: Obesity Completed 02/04/2017 Patient Education: Patient Medication Summary Completed 02/01/2017 Appointment: Ginny Pearl WPtel: [phone] [phone] [place] (30 min) Complex 01/12/2017 Appointment: Ginny Pearl WPtel: [phone] [phone] [place] (30 min) Complex 01/07/2017 Visit Plan: Medicare [...] care surrogate. 10/12/2016 Appointment: Bonita Villa WPtel: [phone] [facility] [facility] - Annual Wellness Visit 10/12/2016 Patient [...] 3 months. 10/08/2016 Appointment: Ginny Pearl WPtel: [phone] [phone] [place] (30 min) Complex 10/08/2016 Patient Education: Patient Medication Summary Completed 10/08/2016 Patient Education: Hypertension Completed 10/08/2016 Visit Plan: Allergies-continue daily anti histamine-call if symptoms do not improve or if any worse S/P total thyroidectomy-now on levothyroxine-repeat labs in 1 month 09/10/2016 Appointment: Ginny Pearl WPtel: [phone] [phone] [place] (30 min) Complex 09/10/2016 Patient Education: Patient [...] Ford to do total thyroidectomy on Wednesday Hqjilmhgkg-menmn-qvxhek-due to thyroid nodules-will monitor symptoms for now [...] exam, and the assessment and plan. 08/24/2016 Visit Plan: Hypertension - continue with current medications, continue with no added salt diet. Pt has been encouraged to exercise daily. The pt has been advised to call the office if there are any acute concerns about change in blood pressure readings at home. Bilateral thyroid nodules-voice hoarseness-Dr Ford to do total thyroidectomy on Wednesday Nxcodstpxy-qvkeo-kpnabw-due to thyroid nodules-will monitor symptoms for now 08/24/2016 Appointment: Ginny Pearl WPtel: [phone] [phone] [place] (30 min) Complex 08/24/2016 Patient Education: Patient Medication Summary Completed 08/24/2016 Visit Plan: Abdominal jyjjklco-sehgwfmpusmg-OSM today Bronchitis - acute case of bronchitis [...] at home 08/06/2016 Appointment: Ginny Pearl WPtel: [phone] [phone] (10 min) Simple 08/06/2016 Patient Education: Patient Medication Summary Completed 08/06/2016 Visit Plan: URI - Pt advised to increase fluids, vitamin C. Discussed natural and expected course of this diagnosis and need to alert me if symptoms do not follow expected course, or if any worse. RX sent to patient' s pharmacy. 07/30/2016 Appointment: Ginny Pearl WPtel: [phone] [phone] (15 min) Moderate 07/30/2016 Patient Education: Patient [...] office if symptoms worsen. 06/22/2016 Appointment: Ginny Pearl: [phone] [phone] (30 min) Complex 06/22/2016 Patient Education: Patient [...] hesitancy-UA negative 04/27/2016 Appointment: Ginny Pearl WPtel: [phone] (30 min) Complex 04/27/2016 Patient Education: Patient [...] peripheral edema. 03/23/2016 Appointment: Ginny Pearl WPtel: [phone] [phone] (30 min) Complex 03/23/2016 Patient Education: Patient [...] in the office. Refer for PT at [facility]- Low back pain, generalized weakness, Parkinsons Low lotbru-mrijjfm-wm need for increase sodium intake Hypertension - [...] Hgb A1C 01/20/2016 Appointment: Ginny Pearl WPtel: [address] [place], [place] [phone] (30 min) [facility] 01/20/2016 Patient Education: Patient Medication Summary Completed 01/20/2016 Patient Education: Obesity Completed 01/20/2016 Care Plan: Comp Metabolic Pending 01/20/2016 Care Plan: Cbc With Differential Pending 01/20/2016 Care Plan: %Hba1C LOINC : 10363-9 Pending 01/20/2016 Visit Plan: Diabetes Mellitus - [...] today 12/09/2015 Appointment: Ginny Pearl WPtel: [phone] [facility] [place] [address] (30 min) Complex 12/09/2015 Patient Education: Patient [...] symptoms worsen. 11/25/2015 Appointment: Ginny Pearl WPtel: [phone] [phone] (30 min) Complex 11/25/2015 Patient Education: Patient [...] Education: Hypertension Completed 06/03/2015 Referral: Dangelo Ford with yaneli Initiated 04/08/2015 Appointment: Nurse Visit 03/27/2015 Patient Education: Patient Medication Summary Completed 03/27/2015 Patient Education: Patient Medication Summary Completed 03/26/2015 Care Plan: Referral Order SNOMED-CT : [id number] Ordered 03/26/2015 Patient Education: Patient Medication Summary [...] 02/20/2015 Care Plan: Referral Order SNOMED-CT : [id number] Ordered 02/20/2015 Visit Plan: Hypertension - uncontrolled [...] - SPIRONOLACTONE 02/11/2015 Appointment: Yoli Medley WPtel: [address] [place], [place] [address] (15 min) Moderate 02/11/2015 Patient Education: Patient [...] pressure. 01/28/2015 [facility]ment[phone] (15 min) Moderate 01/28/2015 Patient Education: [...] symptoms worsen. 10/01/2014 Appointment: [facility]el[phone] [facility] Follow up 10/01/2014 Patient Education: Patient [...] symptoms worsen. 05/30/2014 Appointment: [facility] Med[facility]Ptel[phone] [facility] Follow up 05/30/2014 Patient Education: Patient Medication [...] 29. 01/23/2014 Appointment: [facility]Ptel[phone] [facility] Follow up 01/23/2014 Patient Education: Patient Medication [...] at home. 12/26/2013 Appointment: Yoli Medley WPtel: [phone] [facility] Follow up 12/26/2013 Patient Education: Patient Medication Summary Completed 12/26/2013 Patient Education: Hypertension Completed 12/26/2013 Visit Plan: Wound Instructions - Pt was instruced to keep the wound clean, wash with antibacterial soap, use triple antibiotic ointment, call if redness, pustular drainage, or any other acute conerns. 10/24/2013 Appointment: Ginny Pearl WPtel: [phone] [phone] Surgical Procedure 10/24/2013 Patient Education: Patient Medication [...] the lesions. 10/17/2013 Appointment: Yoli Medley WPtel: [phone] [facility] Follow up 10/17/2013 Patient Education: Patient Medication [...] like to have his Oxygen company - [employer] [place] [employer] patient - help with arranging oxygen when he is in [facility]. 07/24/2013 Appointment: Yoli Medley WPtel: [facility] Follow up 07/24/2013 Patient Education: Patient Medication Summary Completed 07/24/2013 Patient Education: Hypertension Completed 07/24/2013 Appointment: Ginny Pearl WPtel: [phone] [place] Lab Draw 05/05/2013 Patient Education: Patient Medication Summary Completed 05/05/2013 Patient Education: Hypertension Completed 05/05/2013 Appointment: Yoli Medley WPtel: [facility] Follow up 05/01/2013 Visit Plan: Diabetes Mellitus [...] UNITS DAILY. 01/19/2013 Appointment: Yoli Medley WPtel: [address] [place] [address] Follow up 01/19/2013 Patient Education: Patient Medication Summary Completed 01/19/2013 Visit Plan: PP-rkylqccw-qxsynudolok today in the office- wound Instructions - Pt was instruced to keep the wound clean, wash with antibacterial soap, use triple antibiotic ointment, call if redness, pustular drainage, or any other acute conerns. 12/26/2012 Appointment: Dae Ginny WPtel: [phone] [phone] [place] [address] 12/26/2012 Patient Education: Patient Medication Summary Completed [...] glucose. 12/21/2012 Appointment: Y[facility] Med[facility] WPtel[phone] [facility] Follow up 12/21/2012 Patient Education: Patient Medication Summary Completed 12/21/2012 Visit Plan: Parkinsons disease - rx for sinemet 25/100mg 1/ 2 pill in morning and 1/2 pill in evening, pt to let us know if the symptoms improve. Referral to Miguel at [facility] for gait instability. Diabetes Mellitus - [...] and gait instability - recommended christina at [facility] - continue with back brace as it offers support for the patient. 11/30/2012 Appointment: Yoli Medley WPtel[phone] [facility] Follow up 11/30/2012 Patient Education: Patient [...] pain when he woke up on Wednesday mori. Pt will have gallbladder ultrasound and I [...] been previously. 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 04/14/2012 Appointment: Yoli Medley WPtel: [phone] [facility] Follow up 04/14/2012 Patient Education: Patient Medication Summary Completed 04/14/2012 Patient Education: Hypertension Completed 04/14/2012 Visit Plan: Rash- Discussed natural and expected course of this diagnosis and need to alert me if symtpoms do not follow expected course, or if any worse. RX sent to patient's pharmacy. 02/22/2012 Appointment: Ginny Pearl WPtel: [phone] [phone] [place] [address] 02/22/2012 Patient Education: Patient Medication Summary Completed [...] this regimen. 01/13/2012 Appointment: Yoli Medley WPtel: [phone] [facility] Established Patient Preventative visit 01/13/2012 Patient Education: Patient [...] starting to become less controlled. 09/02/2011 Appointment: Yoli Medley WPtel: [phone] [facility] [place] Other 09/02/2011 Patient Education: Patient Medication Summary Completed 09/02/2011 Patient Education: High Blood Pressure: Essential Hypertension Completed 2011 Appointment: Ginny Pearl WPtel: [phone] [place] Lab Draw 08/06/2011 Patient Education: Patient Medication [...] metformin bid. 08/05/2011 Appointment: Yoli Medley WPtel: [facility]5 [facility] Other 08/05/2011 Patient Education: Patient Medication Summary Completed 08/05/2011 Patient Education: .Stephie rodriguez Exercise for Sciatica Completed 08/05/2011 Patient Education: .Stephie rodriguez- low back pain Completed 08/05/2011 Visit Plan: [...] at home. 07/01/2011 Appointment: Yoli Medley WPtel: [address] [place], [place] [phone] Other 07/01/2011 Patient Education: Patient Medication Summary Completed 07/01/2011 Patient Education: High Blood Pressure: Essential Hypertension Completed 2011 Appointment: Yoli Medley WPtel: [address] [place], [place] [phone] Lab Draw 06/25/2011 Patient Education: Patient Medication Summary Completed 06/25/2011 Patient Education: High Blood Pressure: Essential Hypertension Completed 2011 Referral: [facility] WPtel: [address] [place], [place] [phone] Referral Initiated Referral: Dangelo Ford Referral Initiated [...] in the office. Refer for PT at [facility]-DX Low back pain, generalized weakness, Parkinsons Low bvnfhc-uppkpcq-ot need for increase sodium intake Hypertension - [...] less controlled. INCREASE LANTUS TO 16 UNITS DAILY.. Diabetes [...] any other acute conerns. . Hypertension - continue with current medications, [...] months based on previous levels of control. INCREASE LANTUS TO 16 UNITS DAILY. Declined Procedure: (Q2036) FLULAVAL VACC, 3 YRS & >, IM; Declined Reason: Patient Declined. . Diabetes Mellitus - Uncontrolled - per [...] if symptoms not improved on this regimen. daily anti histamine such as zyrtec kenalog injection today in the office-monitor blood sugars closely over the next few days . URI - Pt advised to increase fluids, vitamin C. Discussed natural and expected course of this diagnosis and need to alert me if symptoms do not follow expected course, or if any worse. RX sent to patient's pharmacy. CONTINUE LASIX (FUROSEMIDE) DAILY check labs-cbc, cmp . Edema - pt has been advised to elevate legs to prevent dependent edema, compression has been recommended to help to naturally decrease peripheral edema. Diuretic use has been discussed and pt has been instructed in appropriate use of such medication as necessary to further attempt to reduce peripheral edema. . Allergies-continue daily anti histamine-call if symptoms do not improve or if any worse S/P total thyroidectomy-now on levothyroxine-repeat labs in 1 month CXR and KUB Lab work- CBC, CMP, BNP . Abdominal zwdbubke-ckrqresgtzgb-LKJ today Bronchitis - acute case of bronchitis [...] HTN-no changes in medications-monitor at home . Esophageal Reflux - the patient has [...] change in blood pressure readings at home. 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 take 2 lasix Wednesday, 2 Lasix on Wednesday, and 2 lasix on . on WEDNESDAY start taking the new diuretic - SPIRONOLACTONE . Rash- Discussed natural and expected course of this diagnosis and need to alert me if symtpoms do not follow expected course, or if any worse. RX sent to patient's pharmacy. . Abscess/Cellulitis- left anterior chest -incision and drainage today in the office- The patient was instructed in appropriate wound care. The patient was instructed to use the antibiotic as per RX. The patient is to call for any change in symptoms, increase in size of the lesion, increase in pain. Return tomorrow for wound check and repacking the wound. . Hypertension - well controlled - continue [...] based on previous levels of control. . Hypertension - continue with current medications, continue with no added salt diet. Pt has been encouraged to exercise daily. The pt has been advised to call the office if there are any acute concerns about change in blood pressure readings at home. Bilateral thyroid nodules-voice hoarseness-Dr Ford to do total thyroidectomy on Wednesday Clxpsmkyud-hqdry-jjsipn-due to thyroid nodules-will monitor symptoms for now [...] the assessment and plan. . Hypertension - continue with current medications, continue with no added salt diet. Pt has been encouraged to exercise daily. The pt has been advised to call the office if there are any acute concerns about change in blood pressure readings at home. Bilateral thyroid nodules-voice hoarseness-Dr Ford to do total thyroidectomy on Wednesday Oiicwemwky-lcnvi-epxhfq-due to thyroid nodules-will monitor symptoms for now . Hypertension - well controlled - continue with current medications, continue with no added salt diet. Pt has been encouraged to exercise daily. The pt has been advised to call the office if there are any acute concerns about change in blood pressure readings at home. Xjzqesqmnnwthr-viaduqcu-vdlbwii medication increased by Dr Ford and wants us to manage-repeat in 3 months. . Hypertension and Edema uncontrolled - Pt [...] on lasix should drop blood pressure. . Diarrhea - recommended bland diet, low fat diet, start on probiotic, and rehydrate with gatorade-like product. Pt to call if feeling worse, diarrhea becomes bloody, or does not improve with above recommendations. Pt to call for acute worsening of stomach upset or stomach pain. Probiotic twice daily. . Chronic hyponatremia - Increase fluids - [...] change in blood pressure readings at home. send a script for sucralfate liquid to [...] will see the patient January 29. . Parkinsons disease - rx for sinemet 25/100mg 1/2 pill in morning and 1/2 pill in evening, pt to let us know if the symptoms improve. Referral to Miguel at [facility] for gait instability. Diabetes Mellitus - [...] and gait instability - recommended christina at [facility] - continue with back brace as it offers support for the patient. . Abdominal pain - pt has been having increasing pain in his upper right abdomen - pt has been having increased pain. Pt has been eating a more vegan diet - Wednesday night he thinks he ate salad and lentil stew and then had pain when he woke up on Wednesday mori. Pt will have gallbladder ultrasound and I [...] NEVILLE wraps to lower legs Appointment with [facility]- July 29 at 1pm. . [...] readings are starting to become less controlled. . 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 . Hypertension - well controlled - continue [...] like to have his Oxygen company - [employer] [facility] patient - help with arranging oxygen when he is in [facility].
--- OUTSIDE RECORDS SUMMARY | 2017-11-07 17:04 | XMS REPORT | CCD ---
Author Author [facility] Organization [facility] Address [address] [place] [address] Phone Care Team Providers Care Airport Operations Officer Name Role Phone PP Unavailable CCM Unavailable Summary Purpose Interface Exchange Insurance Providers Payer name Policy type / Coverage type Covered alliance party ID Effective Begin Date Effective End Date WPS Medicare Part B Medicare Part B [id number] Unknown [facility] INSUR Medicare Part B [id number] Unknown Family history Runs in the family Diagnosis Age At Onset Diabetes Unknown Mother Diagnosis Age At Onset Diabetes Unknown Hypertension Unknown Alzheimer's Disease Unknown Stroke Unknown Father Diagnosis Age At Onset No Family Disease Entered N/A Grandmother Diagnosis Age At Onset Alzheimer's Disease Unknown Social History Social History Element Codes Description Effective Dates Number of children Unknown 4 1 in [place], 1 in [place], 2 in [place] 2011 Employment Unknown 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 Unknown Has never used illegal drugs 07/02/2011 Marital status Unknown 07/01/2011 Living arrangements Unknown House 07/01/2011 Allergies, Adverse Reactions, Alerts Allergies, Adverse Reactions, Alerts data not found Past Medical History Illness Codes Condition Status Onset Date Resolved Date Essential (primary) hypertension ICD-9: 401.9 ICD-10: I10 [...] ICD-9: 794.5 ICD-10: R94.6 Active 07/13/2016 Unknown Localized edema ICD-9 : 782.3 ICD-10: R60.0 Active 03/22/2016 Unknown Parkinson's disease ICD-9: 332.0 ICD-10: G20 [...] Problems Condition Codes Effective Dates Condition Status Essential (primary) hypertension ICD-9: 401.9 ICD-10: I10 [...] studies ICD-9: 794.5 ICD-10: R94.6 07/13/2016 Active Localized edema ICD-9 : 782.3 ICD-10: R60.0 03/22/2016 Active Parkinson's disease ICD-9: 332.0 ICD-10: G20 [...] Start Date Stop Date Status Fill Instructions Basaglar KwikPen 100 unit/mL (3 mL) subcutaneous RxNorm: 4410766 24 Unit(s) SQ daily 05/07/2017 05/01/2018 Active Lasix 20 mg tablet RxNorm: 928608 2 Tablet(s) PO daily x 3 days, then 1 pill three times a week thereafter 04/28/2017 No Stop Date Active triamcinolone acetonide 0.025 % topical cream RxNorm: 0179497 1 Application TOP BID 04/28/2017 No Stop Date Active clotrimazole 1 % topical cream RxNorm: 739819 1 Application TOP BID 04/28/2017 No Stop Date Active potassium chloride ER 10 mEq tablet,extended release(part/ cryst) RxNorm: 5666449 2 Tablet(s) PO daily x 3 days, then 1 pill three times a week when taking the lasix 04/28/2017 08/25/2017 Active Lasix 20 mg tablet RxNorm: 504694 Tablet(s) TAKE 1 TABLET BY MOUTH ONCE DAILY FOR 1 WEEK AND THEN TAKE 1 TABLET BY MOUTH EVERY 3 DAYS THEREAFTER 04/22/2017 07/06/2017 Active Lantus Solostar 100 unit/mL (3 mL) subcutaneous insulin pen RxNorm: 859160 24 Unit(s) SQ daily INJECT 24 UNITS DAILY OR DIRECTED 201605/06/2017 Inactive 1 box of 5 pens Basaglar KwikPen 100 unit/mL (3 mL) subcutaneous RxNorm: 6761821 24 Unit(s) SQ daily 03/02/2017 05/06/2017 Inactive Basaglar KwikPen 100 unit/mL (3 mL) subcutaneous RxNorm: 3682035 24 Unit(s) SQ daily 03/02/2017 03/01/2017 Inactive levothyroxine 175 mcg tablet RxNorm: 001437 1 Tablet(s) PO daily 02/02/2017 07/31/2017 Active Sinemet 25 mg-100 mg tablet RxNorm: 679875 TAKE ONE TABLET BY MOUTH TWICE DAILY IN THE MORNING AND AT SUPPER 12/30/2016 Active metformin ER 500 mg tablet,extended release 24 hr RxNorm: 985961 Tablet(s) TAKE ONE TABLET BY MOUTH TWICE DAILY 11/10/2016 11/04/2017 Active lisinopril 20 mg tablet RxNorm: 937555 Tablet(s) TAKE 1 TABLET BY MOUTH TWICE DAILY 11/10/2016 11/04/2017 Active levothyroxine 150 mcg tablet RxNorm: 500660 1 Tablet(s) PO daily 11/05/2016 02/01/2017 Inactive PLEASE LET PATIENT KNOW WE ARE GIVING HIM 150MCG INSTEAD OF 100MCG SO HE JUST TAKES 1 TAB DAILY. THANKS! Lantus Solostar 100 unit/mL (3 mL) subcutaneous insulin pen RxNorm: 044017 24 Unit(s) SQ daily INJECT 24 UNITS DAILY OR DIRECTED 201603/01/2017 Inactive 1 box of 5 pens Lantus Solostar 100 unit/mL (3 mL) subcutaneous insulin pen RxNorm: 901319 24 Unit(s) SQ daily INJECT 24 UNITS DAILY OR DIRECTED 201610/06/2016 Inactive please call patient with the colbert levothyroxine 100 mcg tablet RxNorm: 656735 1.5 Tablet(s) PO daily 10/05/2016 11/04/2016 Inactive metformin ER 500 mg tablet,extended release 24 hr RxNorm: 131327 Tablet(s) TAKE ONE TABLET BY MOUTH TWICE DAILY 09/29/2016 11/09/2016 Inactive prednisone 20 mg tablet RxNorm: 304760 1 Tablet(s) PO BID 08/0608/10/2016 Inactive Kenalog 40 mg/mL suspension for injection RxNorm: 6074515 1 Milliliter(s) Inj 07/30/2016 07/30/2016 Inactive doxycycline hyclate 100 mg tablet RxNorm: 679335 1 Tablet(s) PO BID 07/30/2016 08/05/2016 Inactive glipizide 10 mg tablet RxNorm: 435209 1 Tablet(s) PO BID 201612/20/2017 Active Sinemet 25 mg-100 mg tablet RxNorm: 597321 TABLET(S) TAKE 1 TABLET BY MOUTH TWICE A DAY IN THE MORNING AND AT SUPPER 05/11/2016 11/06/2016 Inactive Patient requests 90 days supply metformin ER 500 mg tablet,extended release 24 hr RxNorm: 830110 TAKE ONE TABLET BY MOUTH TWICE DAILY 05/04/20162016 Inactive lisinopril 20 mg tablet RxNorm: 457628 TAKE 1 TABLET BY MOUTH TWICE DAILY 04/14/2016 11/09/2016 Inactive Sinemet 25 mg-100 mg tablet RxNorm: 822445 1 Tablet(s) PO BID TAKE 1 TABLET BY MOUTH TWICE A DAY IN THE MORNING AND AT SUPPER 03/23/2016 09/18/2016 Inactive Lasix 20 mg tablet RxNorm: 837374 Tablet(s) TAKE 1 TABLET BY MOUTH ONCE DAILY FOR 1 WEEK AND THEN TAKE 1 TABLET BY MOUTH EVERY 3 DAYS THEREAFTER 03/23/2016 06/06/2016 Inactive hydrocodone 5 mg-acetaminophen 325 mg tablet RxNorm: 939927 1-2 Tablet(s) PO Q6- 8H 01/21/2016 No Stop Date Active Lantus Solostar 100 unit/mL (3 mL) subcutaneous insulin pen RxNorm: 143733 24 Unit(s) SQ daily INJECT 24 UNITS DAILY OR DIRECTED 201510/05/2016 Inactive please call patient with the colbert Kenalog 40 mg/mL suspension for injection RxNorm: 0318579 1 Milliliter(s) Inj 01/20/2016 01/20/2016 Inactive Sinemet 25 mg-100 mg tablet RxNorm: 383312 Tablet(s) TAKE 1 TABLET BY MOUTH TWICE A DAY IN THE MORNING AND AT SUPPER 11/29/2015 03/22/2016 Inactive Lantus Solostar 100 unit/mL (3 mL) subcutaneous insulin pen RxNorm: 347997 20 Unit(s) SQ daily INJECT 20 UNITS DAILY OR DIRECTED 201501/20/2016 Inactive please call patient with the colbert Sinemet 25 mg-100 mg tablet RxNorm: 323989 Tablet(s) TAKE 1 TABLET BY MOUTH TWICE A DAY IN THE MORNING AND AT SUPPER 11/22/2015 11/28/2015 Inactive Lantus Solostar 100 unit/mL (3 mL) subcutaneous insulin pen RxNorm: 274677 Unit( s) INJECT 20 UNITS DAILY OR DIRECTED 11/22/2015 11/24/2015 Inactive Lantus Solostar 100 unit/mL (3 mL) subcutaneous insulin pen RxNorm: 700276 INJECT 20 UNITS DAILY OR DIRECTED 09/27/2015 11/21/2015 Inactive Lasix 20 mg tablet RxNorm: 979028 TAKE 1 TABLET BY MOUTH ONCE DAILY FOR 1 WEEK AND THEN TAKE 1 TABLET BY MOUTH EVERY 3 DAYS THEREAFTER 09/2512/10/2015 Inactive Lasix 20 mg tablet RxNorm: 466377 1 Tablet(s) PO daily 201509/25/2015 Inactive glipizide 10 mg tablet RxNorm: 027261 1 Tablet(s) BID TAKE 1 TABLET BY MOUTH DAILY. 06/25/2015 06/28/2016 Inactive metformin ER 500 mg tablet,extended release 24 hr RxNorm: 118137 1 Tablet(s) PO BID 04/01/2015 05/05/2016 Inactive lisinopril 20 mg tablet RxNorm: 497970 Tablet(s) TAKE 1 TABLET BY MOUTH TWICE DAILY. 03/25/2015 07/22/2015 Inactive metformin ER 500 mg tablet,extended release 24 hr RxNorm: 786923 1 Tablet(s) PO BID 03/25/2015 03/31/2015 Inactive doxycycline hyclate 100 mg capsule RxNorm: 6156780 1 Capsule(s) PO BID 03/19/2015 04/01/2015 Inactive Sinemet 25 mg-100 mg tablet RxNorm: 250128 TAKE 1 TABLET BY MOUTH TWICE A DAY IN THE MORNING AND AT SUPPER 03/05/201511/20 Inactive doxycycline hyclate 100 mg capsule RxNorm: 9357634 1 Capsule(s) PO BID 02/20/2015 02/26/2015 Inactive metolazone 5 mg tablet RxNorm: 704371 1 Tablet(s) PO daily 07/201403/21/2015 Inactive spironolactone 50 mg tablet RxNorm: 917698 1 Tablet(s) PO daily 02/11/2015 01/02/2016 Inactive Efudex 5 % topical cream RxNorm: 963621 1 TOP BID 01/28/2015 02/10/2015 Inactive potassium chloride ER 10 mEq tablet,extended release(part/ cryst) RxNorm: 3237699 1 Tablet(s) PO daily x 1week then three times weekly with the lasix. 01/28/2015 05/27/2015 Inactive Lasix 20 mg tablet RxNorm: 855482 1 Tablet(s) PO daily x 1 week, then every three days thereafter 01/28/20152015 Inactive lisinopril 20 mg tablet RxNorm: 984652 Tablet(s) TAKE 1 TABLET BY MOUTH TWICE DAILY. 11/23/2014 03/22/2015 Inactive lisinopril 20 mg tablet RxNorm: 590708 TAKE 1 TABLET BY MOUTH TWICE DAILY. 11/22/2014 11/22/2014 Inactive Sinemet 25 mg-100 mg tablet RxNorm: 287688 1 Tablet(s) PO BID TAKE 1 TABLET BY MOUTH TWICE A DAY IN THE MORNING AND AT SUPPER 10/01/2014 03/04/2015 Inactive [ SAVINGS FOR UNINSURED PATIENTS -- BIN:789576, PCN: ASPROD1, Group: [id number], ID# [id number], Process claim through [employer], for questions: . THIS IS NOT INSURANCE.] glipizide 10 mg tablet RxNorm: 963034 1 Tablet(s) BID TAKE 1 TABLET BY MOUTH DAILY. 10/01/2014 06/24/2015 Inactive glipizide 10 mg tablet RxNorm: 888059 Tablet(s) daily TAKE 1 TABLET BY MOUTH DAILY. 08/06/2014 09/30/2014 Inactive Lantus Solostar 100 unit/mL (3 mL) subcutaneous insulin pen RxNorm: 464524 20 Unit(s) SQ daily 07/11/2014 09/26/2015 Inactive [SAVINGS FOR UNINSURED PATIENTS -- BIN:856022, PCN: ASPROD1, Group: [id number], ID# [id number], Process claim through [employer], for questions: . THIS IS NOT INSURANCE.] metformin ER 500 mg tablet,extended release 24 hr RxNorm: 714443 1 Tablet(s) PO BID 07/10/2014 03/24/2015 Inactive lisinopril 20 mg tablet RxNorm: 897494 Tablet(s) TAKE 1 TABLET BY MOUTH TWICE DAILY. 07/10/2014 11/21/2014 Inactive Lantus Solostar 100 unit/mL (3 mL) subcutaneous insulin pen RxNorm: 383491 20 Unit(s) SQ daily 05/30/2014 07/10/2014 Inactive [SAVINGS FOR UNINSURED PATIENTS -- BIN:289402, PCN: ASPROD1, Group: [id number], ID# [id number], Process claim through [employer], for questions: . THIS IS NOT INSURANCE.] Sinemet 25 mg-100 mg tablet RxNorm: 268271 Tablet(s) TAKE 1 TABLET BY MOUTH TWICE A DAY IN THE MORNING AND AT SUPPER 05/30/2014 09/30/2014 Inactive [SAVINGS FOR UNINSURED PATIENTS -- BIN:087274, PCN: ASPROD1, Group: [id number], ID# [id number], Process claim through [employer], for questions: . THIS IS NOT INSURANCE.] lisinopril 20 mg tablet RxNorm: 367515 TAKE 1 TABLET BY MOUTH TWICE DAILY. 04/09/2014 04/08/2014 Inactive glipizide 10 mg tablet RxNorm: 867655 TAKE 1 TABLET BY MOUTH TWICE DAILY. 04/09/2014 08/05/2014 Inactive glipizide 10 mg tablet RxNorm: 146514 TAKE 1 TABLET BY MOUTH TWICE DAILY. 04/09/2014 04/08/2014 Inactive lisinopril 20 mg tablet RxNorm: 094410 TAKE 1 TABLET BY MOUTH TWICE DAILY. 04/09/2014 07/09/2014 Inactive lisinopril 20 mg tablet RxNorm: 200875 Tablet(s) TAKE ONE TABLET BY MOUTH TWICE DAILY 04/06/2014 04/08/2014 Inactive [SAVINGS FOR UNINSURED PATIENTS -- BIN:441513 , PCN: ASPROD1, Group: [id number], ID# [id number], Process claim through [employer], for questions: . THIS IS NOT INSURANCE.] glipizide 10 mg tablet RxNorm: 435570 1 Tablet(s) PO BID 201304/08/2014 Inactive [SAVINGS FOR UNINSURED PATIENTS -- BIN:772174, PCN: ASPROD1, Group: [id number], ID # [id number], Process claim through [employer], for questions: . THIS IS NOT INSURANCE.] pravastatin 10 mg tablet RxNorm: 453826 TAKE ONE TABLET BY MOUTH EVERY DAY 02/26/2014 05/26/2014 Inactive Sinemet 25 mg-100 mg tablet RxNorm: 067776 TAKE 1 TABLET BY MOUTH TWICE A DAY IN THE MORNING AND AT SUPPER 01/26/201401/25 Inactive Sinemet 25 mg-100 mg tablet RxNorm: 220354 Tablet(s) TAKE 1 TABLET BY MOUTH TWICE A DAY IN THE MORNING AND AT SUPPER 01/26/2014 05/29/2014 Inactive [SAVINGS FOR UNINSURED PATIENTS -- BIN:178669, PCN: ASPROD1, Group: [id number], ID# [id number], Process claim through [employer], for questions: . THIS IS NOT INSURANCE.] Sinemet 25 mg-100 mg tablet RxNorm: 437381 TAKE 1 TABLET BY MOUTH TWICE A DAY IN THE MORNING AND AT SUPPER 01/26/201401/25 Inactive Sinemet 25 mg-100 mg tablet RxNorm: 055202 TAKE 1 TABLET BY MOUTH TWICE A DAY IN THE MORNING AND AT SUPPER 01/26/201401/25 Inactive pantoprazole 40 mg tablet,delayed release RxNorm: 397149 TAKE 1 TABLET DAILY 01/25/2014 10/07/2016 Inactive finasteride 5 mg tablet RxNorm: 758422 1 Tablet(s) PO daily 12/201309/30/2014 Inactive [SAVINGS FOR UNINSURED PATIENTS -- BIN:896414, PCN: ASPROD1, Group: [id number] , ID# [id number], Process claim through [employer], for questions: . THIS IS NOT INSURANCE.] sucralfate 100 mg/mL oral suspension RxNorm: 837584 10 Milliliter(s) PO QID 01/23/2014 09/30/2014 Inactive dispense qs x 1 month lisinopril 20 mg tablet RxNorm: 157510 TAKE ONE TABLET BY MOUTH TWICE DAILY 12/27/2013 03/26/2014 Inactive pantoprazole 40 mg tablet,delayed release RxNorm: 929466 1 Tablet(s) PO daily 12/26/2013 12/25/2013 Inactive [SAVINGS FOR UNINSURED PATIENTS -- BIN:778919, PCN: ASPROD1, Group: [id number], ID# [id number], Process claim through [employer], for questions: . THIS IS NOT INSURANCE.] pantoprazole 40 mg tablet,delayed release RxNorm: 593346 1 Tablet(s) PO daily 12/26/2013 12/20/2014 Inactive [SAVINGS FOR UNINSURED PATIENTS -- BIN:204921, PCN: ASPROD1, Group: [id number], ID# [id number], Process claim through [employer], for questions: . THIS IS NOT INSURANCE.] gemfibrozil 600 mg tablet RxNorm: 288688 1 Tablet(s) PO BID 11/201310/23/2013 Inactive gemfibrozil 600 mg tablet RxNorm: 112549 1 Tablet(s) PO BID 11/201309/30/2014 Inactive [SAVINGS FOR UNINSURED PATIENTS -- BIN:080120, PCN: ASPROD1, Group: [id number] , ID# [id number], Process claim through [employer], for questions: . THIS IS NOT INSURANCE.] finasteride 5 mg tablet RxNorm: 023469 1 Tablet(s) PO daily 04/201301/24/2014 Inactive [SAVINGS FOR UNINSURED PATIENTS -- BIN:577378, PCN: ASPROD1, Group: [id number] , ID# [id number], Process claim through [employer], for questions: . THIS IS NOT INSURANCE.] Lantus Solostar 100 unit/mL (3 mL) subcutaneous insulin pen RxNorm: 160597 20 Unit(s) SQ daily 10/09/2013 05/29/2014 Inactive [SAVINGS FOR UNINSURED PATIENTS -- BIN:192025, PCN: ASPROD1, Group: AME08, ID# [id number], Process claim through [employer], for questions: . THIS IS NOT INSURANCE.] glipizide 10 mg tablet RxNorm: 291962 1 Tablet(s) PO daily 04/05/2014 Inactive [SAVINGS FOR UNINSURED PATIENTS -- BIN:677916, N: ASPROD1, Group: AME08 , ID# [id number], Process claim through [employer], for questions: . THIS IS NOT INSURANCE.] Lantus Solostar 100 unit/mL (3 mL) subcutaneous insulin pen RxNorm: 876069 20 Unit(s) SQ daily 07/18/2013 10/08/2013 Inactive Sinemet 25 mg-100 mg tablet RxNorm: 721873 1 Tablet(s) PO BID one pill in morning , one at supper 07/10/2013 01/25/2014 Inactive Sinemet 25 mg-100 mg tablet RxNorm: 797618 1 Tablet(s) PO BID one pill in morning , one at supper 04/24/2013 07/09/2013 Inactive metformin ER 500 mg tablet,extended release 24 hr RxNorm: 420793 1 Tablet(s) PO BID 04/24/2013 04/18/2014 Inactive glipizide 10 mg tablet RxNorm: 981000 1 Tablet(s) PO daily 09/201310/08/2013 Inactive lisinopril 20 mg tablet RxNorm: 747778 1 Tablet(s) PO BID 04/2410/20/2013 Inactive pravastatin 10 mg tablet RxNorm: 051443 1 Tablet(s) PO daily 10/20/2013 Inactive Lantus Solostar 100 unit/mL (3 mL) subcutaneous insulin pen RxNorm: 683180 20 Unit(s) SQ daily 04/24/2013 07/17/2013 Inactive glipizide 10 mg tablet RxNorm: 482983 1 Tablet(s) PO daily 05/201304/23/2013 Inactive glipizide 10 mg tablet RxNorm: 289206 1 Tablet(s) PO daily 05/201204/19/2013 Inactive Lantus Solostar 100 unit/mL (3 mL) subcutaneous insulin pen RxNorm: 779451 16 Unit(s) SQ daily 03/20/2013 04/23/2013 Inactive Sinemet 25 mg-100 mg tablet RxNorm: 471131 1 Tablet(s) PO BID one pill in morning , one at supper 01/20/2013 04/23/2013 Inactive Lantus Solostar 100 unit/mL (3 mL) subcutaneous insulin pen RxNorm: 748487 16 Unit(s) SQ daily 01/19/2013 01/25/2013 Inactive Sinemet 25 mg-100 mg tablet RxNorm: 878724 1 Tablet(s) PO BID one pill in morning , one at supper 01/19/2013 01/19/2013 Inactive glipizide 10 mg tablet RxNorm: 949126 1 Tablet(s) PO BID 201203/19/2013 Inactive Lantus Solostar 100 unit/mL (3 mL) Sub-Q Insulin Pen RxNorm: 622672 12 Unit(s) SQ daily 12/21/2012 01/18/2013 Inactive lisinopril 20 mg tablet RxNorm: 465209 1 Tablet(s) PO BID 12/0804/23/2013 Inactive metformin ER 500 mg tablet,extended release 24 hr RxNorm: 595740 1 Tablet(s) PO BID 11/30/2012 04/23/2013 Inactive Lantus Solostar 100 unit/mL (3 mL) Sub-Q Insulin Pen RxNorm: 478423 5 Unit(s) SQ daily 11/30/2012 12/07/2012 Inactive FINASTERIDE TAB 5MG RxNorm: 10/03/2012 Inactive lisinopril 20 mg tablet RxNorm: 541771 1 Tablet(s) PO BID 09/0812/06/2012 Inactive glipizide 10 mg tablet RxNorm: 849362 1 Tablet(s) PO BID 201212/30/2012 Inactive metronidazole 500 mg tablet RxNorm: 114345 1 Tablet(s) PO TID 05/30/2012 06/08/2012 Inactive metformin ER 500 mg tablet,extended release 24 hr RxNorm: 194453 2 Tablet(s) PO daily 04/22/2012 11/29/2012 Inactive metformin ER 500 mg tablet,extended release 24 hr RxNorm: 065785 2 Tablet(s) PO daily 04/21/2012 04/21/2012 Inactive ketoconazole 2 % Topical Cream RxNorm: 079457 1 Application TOP BID 04/14/2012 05/04/2012 Inactive ketoconazole 2 % Shampoo RxNorm: 619278 1 Application TOP every other day apply to feet, leave on for 5 minutes, then rinse. 04/14/2012 04/27/2012 Inactive clotrimazole 1 % Topical Cream RxNorm: 387920 1 Application TOP BID 02/22/2012 04/03/2012 Inactive glipizide 10 mg tablet RxNorm: 503455 1 Tablet(s) PO BID 201106/18/2012 Inactive lisinopril 20 mg tablet RxNorm: 595462 1 Tablet(s) PO BID 09/0108/26/2012 Inactive metformin ER 500 mg tablet,extended release 24 hr RxNorm: 783233 2 Tablet(s) PO daily 08/10/2011 04/20/2012 Inactive metformin ER 1,000 mg 24 hr Tab Ctrl Rel RxNorm: 429079 1 Tablet(s) PO daily 07/28/2011 08/09/2011 Inactive Kombiglyze XR 5 mg-1,000 mg 24 hr Tab RxNorm: 9516251 1 Tablet(s) PO daily 07/28/2011 07/27/2011 Inactive Kombiglyze XR 5 mg-1,000 mg 24 hr Tab RxNorm: 4180204 1 Tablet(s) PO daily 07/28/2011 07/28/2011 Inactive glipizide 10 mg tablet RxNorm: 782919 1 Tablet(s) PO BID 201107/27/2011 Inactive glipizide 10 mg Tab RxNorm: 292096 1 Tablet(s) PO BID 201106/16/2011 Inactive glipizide 10 mg Tab RxNorm: 298561 1 Tablet(s) PO BID 201006/15/2011 Inactive glipizide 10 mg Tab RxNorm: 476423 1 Tablet(s) PO BID 201004/01/2011 Inactive glipizide 10 mg Tab RxNorm: 463707 Tablet(s) PO BID 201003/31/2011 Inactive Calcium + Vitamin D 600 mg calcium-200 unit tablet RxNorm: 649191 1 Tablet(s) PO BID No Start Date Active pantoprazole 40 mg tablet,delayed release RxNorm: 523074 1 Tablet(s) PO daily No Start Date 12/25/2013 Inactive Sinemet 25 mg-100 mg tablet RxNorm: 484493 1/2 Tablet(s) PO BID one pill in morning, one at supper No Start Date 01/18 Inactive levothyroxine 100 mcg tablet RxNorm: 361257 1 Tablet(s) PO daily No Start Date 10/04/2016 Inactive lisinopril 20 mg Tab RxNorm: 991981 1 Tablet(s) PO BID No Start Date 09/01/2011 Inactive hydrocodone 5 mg-acetaminophen 325 mg tablet RxNorm: 130022 1-2 Tablet(s) PO Q6- 8H No Start Date 01/20/2016 Inactive pravastatin 10 mg tablet RxNorm: 925072 1 Tablet(s) PO daily No Start Date 04/23/2013 Inactive Medication Administered Medication Codes Instructions Start Date Status Kenalog 40 mg/mL suspension for injection RxNorm: 9435791 1Milliliter 07/30/2016 No longer Active Kenalog 40 mg/mL suspension for injection RxNorm: 2293363 1Milliliter 01/20/2016 No longer Active Immunizations Vaccine Codes Date Status PPD Unknown 03/20/2015 completed Pneumococcal (Adult) CVX: 133 03/08/2015 completed Pneumococcal (Adult) CVX: 33 01/23/2014 completed Influenza CVX: 141 01/19/2013 completed Assessments Condition Codes Effective Dates Hypothyroidism, unspecified ICD-10: E03.9 ICD-9: 244.9 02/04/2017 [...] function studies ICD-10: R94.6 ICD-9: 794.5 07/13/2016 Localized edema ICD-10: R60.0 ICD-9: 782.3 06/22/2016 Parkinson's disease ICD-10: G20 ICD-9: 332.0 06/22/2016 [...] Visit Reason For Visit Effective Dates Notes hypothyroid 02/04/2017 Annual Medicare Wellness Exam 10/12/2016 [...] Observation Code Item Item Code Result Date Tsh Ord6 hTSH II 9.43 uIU/mL 02/02/2017 Comp Metabolic Lau533 NA 134 mEq/L 02/02/2017 Comp Metabolic Qhq315 K 4.4 mEq/L 02/02/2017 Comp Metabolic Wfw185 CL 99 mEq/L 02/02/2017 Comp Metabolic Zyw321 CO2 26.0 mEq/L 02/02/2017 Comp Metabolic Hpq407 ANION GAP 13 02/02/2017 Comp Metabolic Wdv217 GLUCOSE 256 mg/dL 02/02/2017 Comp Metabolic Ooy199 Creat 1.6 mg/dL 02/02/2017 Comp Metabolic Cyf459 eGFR 45 ml/min/1.73m2 02/02/2017 Comp Metabolic Eqh182 BUN 26 mg/dL 02/02/2017 Comp Metabolic Vux733 B/C Ratio 16.6 Ratio 02/02/2017 Comp Metabolic Rak283 CALCIUM 8.7 mg/dL 02/02/2017 Comp Metabolic Tif813 ALK PHOS 63 U/L 02/02/2017 Comp Metabolic Fnj269 AST(SGOT) 11 U/L 02/02/2017 Comp Metabolic Mzc691 ALT(SGPT) 9 U/L 02/02/2017 Comp Metabolic Ejp865 BILI T 0.5 mg/dL 02/02/2017 Comp Metabolic Szj283 ALBUMIN 3.7 g/dL 02/02/2017 Comp Metabolic Ooc912 TPRO 6.1 g/dL 02/02/2017 Comp Metabolic Nuk258 GLOB 2.4 g/dL 02/02/2017 Comp Metabolic Jjg387 A/G Ratio 1.6 Ratio 02/02/2017 Comp Metabolic Nhy077 Osmo 282 mOsmo 02/02/2017 %Hba1C Wmt679 % HbA1c 55282-5 7.5 % 02/02/2017 %Hba1C Hjh049 Gluc Ave 169 mg/dL 02/02/2017 Free T4 Ghy237 FREE T4 1.23 ng/dL 02/02/2017 Cbc With [...] 93.0 fl 02/02/2017 Cbc With Differential Ord2 [place]% 9.6 % 02/02/2017 Cbc With Differential Ord2 [...] 2.61 K/ul 02/02/2017 Cbc With Differential Ord2 [place] ABS# 0.8 K/ul 02/02/2017 Cbc With Differential Ord2 Eos ABS# 0.2 K/ul 02/02/2017 Cbc With Differential Ord2 Baso ABS# 0.1 K/ul 02/02/2017 Total T3 Ord42 TT3 0.59 ng/ml 07/14/2016 Free T4 Tqa645 FREE T4 1.14 ng/dL 07/14/2016 Cbc With [...] 34.9 % 06/22/2016 Cbc With Differential Ord2 [place]% 9.9 % 06/22/2016 Cbc With Differential Ord2 [...] 2.41 K/ul 06/22/2016 Cbc With Differential Ord2 [place] ABS# 0.7 K/ul 06/22/2016 Cbc With Differential Ord2 Eos ABS# 0.2 K/ul 06/22/2016 Cbc With Differential Ord2 Baso ABS# 0.0 K/ul 06/22/2016 Comp Metabolic Obt629 NA 134 mEq/L 06/22/2016 Comp Metabolic Wha220 K 4.3 mEq/L 06/22/2016 Comp Metabolic Wcg290 CL 100 mEq/L 06/22/2016 Comp Metabolic Qsd353 CO2 26.0 mEq/L 06/22/2016 Comp Metabolic Zhx220 ANION GAP 12 06/22/2016 Comp Metabolic Buw357 GLUCOSE 222 mg/dL 06/22/2016 Comp Metabolic Zln865 Creat 1.5 mg/dL 06/22/2016 Comp Metabolic Xel752 eGFR 49 ml/min/1.73m2 06/22/2016 Comp Metabolic Djf898 BUN 23 mg/dL 06/22/2016 Comp Metabolic Ytw106 B/C Ratio 15.9 Ratio 06/22/2016 Comp Metabolic Nan266 CALCIUM 9.0 mg/dL 06/22/2016 Comp Metabolic Kin421 ALK PHOS 59 U/L 06/22/2016 Comp Metabolic Pgl849 AST(SGOT) 13 U/L 06/22/2016 Comp Metabolic Wkm186 ALT(SGPT) 11 U/L 06/22/2016 Comp Metabolic Qwz644 BILI T 0.5 mg/dL 06/22/2016 Comp Metabolic Mfs538 ALBUMIN 3.8 g/dL 06/22/2016 Comp Metabolic Myq599 TPRO 6.2 g/dL 06/22/2016 Comp Metabolic Icp009 GLOB 2.4 g/dL 06/22/2016 Comp Metabolic Uaw518 A/G Ratio 1.6 Ratio 06/22/2016 Comp Metabolic Mwx368 Osmo 279 mOsmo 06/22/2016 Tsh Ord6 hTSH II 0.44 uIU/mL 06/22/2016 Comp Metabolic Twj502 NA 134 mEq/L 04/27/2016 Comp Metabolic Usn474 K 4.6 mEq/L 04/27/2016 Comp Metabolic Dgs171 CL 99 mEq/L 04/27/2016 Comp Metabolic Uus415 CO2 27.0 mEq/L 04/27/2016 Comp Metabolic Rpq675 ANION GAP 13 04/27/2016 Comp Metabolic Dee442 GLUCOSE 178 mg/dL 04/27/2016 Comp Metabolic Bqf781 Creat 1.4 mg/dL 04/27/2016 Comp Metabolic Vnq789 eGFR 53 ml/min/1.73m2 04/27/2016 Comp Metabolic Myr649 BUN 24 mg/dL 04/27/2016 Comp Metabolic Psa893 B/C Ratio 17.5 Ratio 04/27/2016 Comp Metabolic Upd463 CALCIUM 9.1 mg/dL 04/27/2016 Comp Metabolic Thc708 ALK PHOS 72 U/L 04/27/2016 Comp Metabolic Kvy502 AST(SGOT) 16 U/L 04/27/2016 Comp Metabolic Obk246 ALT(SGPT) 12 U/L 04/27/2016 Comp Metabolic Cmv085 BILI T 0.6 mg/dL 04/27/2016 Comp Metabolic Cex259 ALBUMIN 4.1 g/dL 04/27/2016 Comp Metabolic Qzb287 TPRO 6.8 g/dL 04/27/2016 Comp Metabolic Pln549 GLOB 2.7 g/dL 04/27/2016 Comp Metabolic Qyt158 A/G Ratio 1.6 Ratio 04/27/2016 Comp Metabolic Ikq162 Osmo 277 mOsmo 04/27/2016 Cbc With Differential [...] 33.1 % 04/27/2016 Cbc With Differential Ord2 [place]% 9.7 % 04/27/2016 Cbc With Differential Ord2 [...] 2.89 K/ul 04/27/2016 Cbc With Differential Ord2 [place] ABS# 0.9 K/ul 04/27/2016 Cbc With Differential Ord2 Eos ABS# 0.2 K/ul 04/27/2016 Cbc With Differential Ord2 Baso ABS# 0.0 K/ul 04/27/2016 %Hba1C Nnk272 % HbA1c 76655-8 7.2 % 04/27/2016 %Hba1C Icu475 Gluc Ave 160 mg/dL 04/27/2016 Cbc With [...] 31.0 pg 01/21/2016 Cbc With Differential Ord2 [place]% 8.9 % 01/21/2016 Cbc With Differential Ord2 [...] 1.91 K/ul 01/21/2016 Cbc With Differential Ord2 [place] ABS# 0.6 K/ul 01/21/2016 Cbc With Differential Ord2 Eos ABS# 0.2 K/ul 01/21/2016 Cbc With Differential Ord2 Baso ABS# 0.0 K/ul 01/21/2016 Comp Metabolic Lqh958 NA 134 mEq/L 01/21/2016 Comp Metabolic Jvz488 K 5.0 mEq/L 01/21/2016 Comp Metabolic Jyt708 CL 99 mEq/L 01/21/2016 Comp Metabolic Ezc584 CO2 26.0 mEq/L 01/21/2016 Comp Metabolic Wjy723 ANION GAP 14 01/21/2016 Comp Metabolic Tho071 GLUCOSE 260 mg/dL 01/21/2016 Comp Metabolic Wjl782 Creat 1.5 mg/dL 01/21/2016 Comp Metabolic Fxe510 eGFR 50 ml/min/1.73m2 01/21/2016 Comp Metabolic Mip905 BUN 18 mg/dL 01/21/2016 Comp Metabolic Gbz665 B/C Ratio 12.4 Ratio 01/21/2016 Comp Metabolic Zvx740 CALCIUM 8.8 mg/dL 01/21/2016 Comp Metabolic Hpu138 ALK PHOS 68 U/L 01/21/2016 Comp Metabolic Fza074 AST(SGOT) 16 U/L 01/21/2016 Comp Metabolic Fgq109 ALT(SGPT) 16 U/L 01/21/2016 Comp Metabolic Qmi754 BILI T 0.5 mg/dL 01/21/2016 Comp Metabolic Vui658 ALBUMIN 3.8 g/dL 01/21/2016 Comp Metabolic Mbp818 TPRO 6.3 g/dL 01/21/2016 Comp Metabolic Gbg758 GLOB 2.5 g/dL 01/21/2016 Comp Metabolic Gfz259 A/G Ratio 1.5 Ratio 01/21/2016 Comp Metabolic Eta448 Osmo 279 mOsmo 01/21/2016 %Hba1C Mzz151 % HbA1c 41914-1 7.4 % 01/21/2016 %Hba1C Bho357 Gluc Ave 166 mg/dL 01/21/2016 Metabolic Ord15 [...] Qnt Crqnt CRP 1.5 mg/dl 09/17/2015 %Hba1C Gdf375 % HbA1c 93373-1 7.1 % 09/17/2015 %Hba1C Ohw883 Gluc Ave 157 mg/dL 09/17/2015 Cbc With [...] 31.7 pg 08/06/2015 Cbc With Differential Ord2 [place]% 9.6 % 08/06/2015 Cbc With Differential Ord2 [...] 2.90 K/ul 08/06/2015 Cbc With Differential Ord2 [place] ABS# 0.7 K/ul 08/06/2015 Cbc With Differential Ord2 Eos ABS# 0.2 K/ul 08/06/2015 Cbc With Differential Ord2 Baso ABS# 0.0 K/ul 08/06/2015 Cbc With Differential Ord2 New Analyzer Notice Please note new ref ranges starting 05-01-2015 due to implemntation of new five part differential hematolgy analyzer. 08/06/2015 Comp Metabolic Icq481 NA 132 mEq/L 08/06/2015 Comp Metabolic Sbc794 K 4.6 mEq/L 08/06/2015 Comp Metabolic Jlp493 CL 98 mEq/L 08/06/2015 Comp Metabolic Wqf588 CO2 25.0 mEq/L 08/06/2015 Comp Metabolic Yhx654 ANION GAP 14 08/06/2015 Comp Metabolic Bzg736 GLUCOSE 170 mg/dL 08/06/2015 Comp Metabolic Tyr401 Creat 1.5 mg/dL 08/06/2015 Comp Metabolic Yba703 eGFR 46 ml/min/1.73m2 08/06/2015 Comp Metabolic Ldi309 BUN 21 mg/dL 08/06/2015 Comp Metabolic Npd383 B/C Ratio 13.6 Ratio 08/06/2015 Comp Metabolic Jcp385 CALCIUM 8.9 mg/dL 08/06/2015 Comp Metabolic Zvp922 ALK PHOS 60 U/L 08/06/2015 Comp Metabolic Mrq255 AST(SGOT) 16 U/L 08/06/2015 Comp Metabolic Jtg821 ALT(SGPT) 18 U/L 08/06/2015 Comp Metabolic Oli237 BILI T 0.4 mg/dL 08/06/2015 Comp Metabolic Opw925 ALBUMIN 3.8 g/dL 08/06/2015 Comp Metabolic Arh119 TPRO 6.3 g/dL 08/06/2015 Comp Metabolic Kcb558 GLOB 2.5 g/dL 08/06/2015 Comp Metabolic Kgq010 A/G Ratio 1.6 Ratio 08/06/2015 Comp Metabolic Rsa906 Osmo 271 mOsmo 08/06/2015 Tsh Ord6 hTSH II 0.95 uIU/mL 06/17/2015 Free T4 Udl815 FREE T4 1.08 ng/dL 06/17/2015 Metabolic Ord15 [...] Ord15 CALCIUM 9.0 mg/dL 05/06/2015 Comp Metabolic Eca103 NA 143 mEq/L 03/04/2015 Comp Metabolic Nis911 K 4.5 mEq/L 03/04/2015 Comp Metabolic Yyr741 CL 92 mEq/L 03/04/2015 Comp Metabolic Xpu216 CO2 24.0 mEq/L 03/04/2015 Comp Metabolic Dyy871 ANION GAP 32 03/04/2015 Comp Metabolic Ptn011 GLUCOSE 72 mg/dL 03/04/2015 Comp Metabolic Ccs490 Creat 1.5 mg/dL 03/04/2015 Comp Metabolic Gqi997 eGFR 48 ml/min/1.73m2 03/04/2015 Comp Metabolic Nft657 BUN 27 mg/dL 03/04/2015 Comp Metabolic Kfm530 B/C Ratio 18.0 Ratio 03/04/2015 Comp Metabolic Ejr267 CALCIUM 9.1 mg/dL 03/04/2015 Comp Metabolic Wfg717 ALK PHOS 58 U/L 03/04/2015 Comp Metabolic Emp975 AST(SGOT) 16 U/L 03/04/2015 Comp Metabolic Zvo798 ALT(SGPT) 13 U/L 03/04/2015 Comp Metabolic Poq972 BILI T 0.6 mg/dL 03/04/2015 Comp Metabolic Auu151 ALBUMIN 4.0 g/dL 03/04/2015 Comp Metabolic Jea563 TPRO 6.6 g/dL 03/04/2015 Comp Metabolic Fyc118 GLOB 2.6 g/dL 03/04/2015 Comp Metabolic Qkr075 A/G Ratio 1.6 Ratio 03/04/2015 Comp Metabolic Rjz363 Osmo 289 mOsmo 03/04/2015 %Hba1C Che727 % HbA1c 03511-9 7.3 % 01/28/2015 %Hba1C Khk502 Gluc Ave 163 mg/dL 01/28/2015 MICRALUR 6688869 MICRL MG/L 13.2 MG/L 10/01/2014 MICRALUR 0694419 XM.ALB/CRE 48.9 MG/GCR 10/01/2014 MICRALUR 0106347 CREAT MG/D 27 MG/DL 10/01/2014 MICRALUR 6927479 CRE/100 0.27 G/L 10/01/2014 A1C HPLC 2864626 A1C HPLC 82799-5 7.3 % 10/01/2014 TSH 5566418 TSH 0.423 uIU/ML 10/01/2014 TSH 1092753 TSH 0.612 uIU/ML 10/18/2013 A1C HPLC 2055254 A1C HPLC 19812-3 6.8 % 10/18/2013 GFR CALC 9528402 GFR AA >60 ML/MIN 10/18/2013 GFR CALC 8532557 GFR NON-AA 52.0L ML/MIN 10/18/2013 LIPID GRP HDL TEST 30 MG/DL 10/18/2013 LIPID GRP TRIG 425 MG/DL 10/18/2013 LIPID GRP TEST LDL HI TRIG MG/DL 10/18/2013 LIPID GRP CHOL 185 MG/DL 10/18/2013 LIPID GRP RCHOL/HDL 6.17 RATIO 10/18/2013 MICRALUR MICRL MG/L 15.6 MG/L 10/18/2013 MICRALUR XM.ALB/CRE 9.2 MG/GCR 10/18/2013 MICRALUR 7299556 CREAT MG/D 169 MG/DL 10/18/2013 MICRALUR 3165611 CRE/100 1.69 G/L 10/18/2013 CHEM 14 3086335 AST 20 U/L 10/18/2013 CHEM 14 2041051 ALT 13 IU/L 10/18/2013 CHEM 14 4140908 BUN 27 MG/DL 10/18/2013 CHEM 14 5716612 ALBUMIN 4.2 GM/DL 10/18/2013 CHEM 14 9946928 CHLORIDE 100 MMOL/L 10/18/2013 CHEM 14 9646337 BILI TOT 0.5 MG/DL 10/18/2013 CHEM 14 8897998 ALK PHOS 60 U/L 10/18/2013 CHEM 14 1294800 SODIUM 131 MMOL/L 10/18/2013 CHEM 14 3581012 CREATININE 1.32 MG/DL 10/18/2013 CHEM 14 9777657 CALCIUM 9.2 MG/DL 10/18/2013 CHEM 14 4752170 POTASSIUM 4.7 MMOL/L 10/18/2013 CHEM 14 2870439 PROT TOT 7.7 GM/DL 10/18/2013 CHEM 14 7989779 GLUCOSE 140 MG/DL 10/18/2013 CHEM 14 3126886 BICARB 24 MMOL/L 10/18/2013 CHEM 14 9842052 ANION GAP 7 MEQ/L 10/18/2013 PSA EQ 20110613 PSA EQ 7.79 NG/ML 10/18/2013 CBC 5203300 WBC 6.6 10e9/L 10/18/2013 CBC 7538776 RBC 4.58 10e12/L 10/18/2013 CBC 3914704 HGB 14.6 g/dL 10/18/2013 CBC 8937770 HCT DET 42.8 % 10/18/2013 CBC 2349705 MCV 93.4 fL 10/18/2013 CBC 0111194 MCH 31.9 pg 10/18/2013 CBC 2701417 MCHC 34.1 g/dL 10/18/2013 CBC 5072537 PLT 172 10e9/L 10/18/2013 CBC 8333480 MPV 9.3 fL 10/18/2013 CBC 5057586 JAYESH % 55.4 % 10/18/2013 CBC 5587902 LY % 33.0 % 10/18/2013 CBC 9962626 MON % 8.8 % 10/18/2013 CBC 3548888 EOS % 2.6 % 10/18/2013 CBC 8264700 BASO % 0.2 % 10/18/2013 CBC 0113457 RDW 12.7 % 10/18/2013 CBC 2895165 ABS JAYESH 3.66 10e9/L 10/18/2013 CBC 9226039 ABS LYMPH 2.18 10e9/L 10/18/2013 CBC 2625090 ABS MONO 0.58 10e9/L 10/18/2013 CBC 6779256 ABS EOS 0.17 10e9/L 10/18/2013 CBC 8352657 ABS BASO 0.01 10e9/L 10/18/2013 CBC 5351671 RDW-SD 42.6 fL 10/18/2013 TSH 9245102 TSH 1.257 uIU/ML 05/05/2013 CHEM 14 6704238 AST 15 U/L 05/05/2013 CHEM 14 9850218 ALT 13 IU/L 05/05/2013 CHEM 14 5069630 BUN 22 MG/DL 05/05/2013 CHEM 14 0180816 ALBUMIN 4.2 GM/DL 05/05/2013 CHEM 14 5246554 CHLORIDE 104 MMOL/L 05/05/2013 CHEM 14 9703152 BILI TOT 0.6 MG/DL 05/05/2013 CHEM 14 0709736 ALK PHOS 52 U/L 05/05/2013 CHEM 14 3284413 SODIUM 137 MMOL/L 05/05/2013 CHEM 14 9451888 CREATININE 1.25 MG/DL 05/05/2013 CHEM 14 4667092 CALCIUM 9.1 MG/DL 05/05/2013 CHEM 14 4127825 POTASSIUM 5.0 MMOL/L 05/05/2013 CHEM 14 9116714 PROT TOT 6.7 GM/DL 05/05/2013 CHEM 14 9067388 GLUCOSE 142 MG/DL 05/05/2013 CHEM 14 2370678 BICARB 27 MMOL/L 05/05/2013 CHEM 14 9639370 ANION GAP 6 MEQ/L 05/05/2013 GFR CALC 2851781 GFR AA >60 ML/MIN 05/05/2013 GFR CALC 6921054 GFR NON-AA 56.0L ML/MIN 05/05/2013 CBC 8508269 WBC 6.1 10e9/L 05/05/2013 CBC 3809911 RBC 4.74 10e12/L 05/05/2013 CBC 1629694 HGB 14.7 g/dL 05/05/2013 CBC 0149200 HCT DET 43.6 % 05/05/2013 CBC 0339045 MCV 92.0 fL 05/05/2013 CBC 6782243 MCH 31.0 pg 05/05/2013 CBC 0129733 MCHC 33.7 g/dL 05/05/2013 CBC 7293606 PLT 168 10e9/L 05/05/2013 CBC 2129167 MPV 9.3 fL 05/05/2013 CBC 6359796 JAYESH % 53.2 % 05/05/2013 CBC 6935129 LY % 35.3 % 05/05/2013 CBC 5871227 MON % 8.7 % 05/05/2013 CBC 0606499 EOS % 2.5 % 05/05/2013 CBC 4557667 BASO % 0.3 % 05/05/2013 CBC 3770912 RDW 13.5 % 05/05/2013 CBC 1936198 ABS JAYESH 3.25 10e9/L 05/05/2013 CBC 0602317 ABS LYMPH 2.15 10e9/L 05/05/2013 CBC 7910871 ABS MONO 0.53 10e9/L 05/05/2013 CBC 3790181 ABS EOS 0.15 10e9/L 05/05/2013 CBC 5670716 ABS BASO 0.02 10e9/L 05/05/2013 CBC 2731611 RDW-SD 44.8 fL 05/05/2013 A1C HPLC 7470183 A1C HPLC 96558-5 6.4 % 05/05/2013 LIPID GRP HDL TEST 32 MG/DL 05/05/2013 LIPID GRP TRIG 170 MG/DL 05/05/2013 LIPID GRP TEST LDL 73 MG/DL 05/05/2013 LIPID GRP CHOL 139 MG/DL 05/05/2013 LIPID GRP RCHOL/HDL 4.34 RATIO 05/05/2013 CHEM 14 2451291 AST 17 U/L 11/25/2012 CHEM 14 20271022 ALT 21 IU/L 11/25/2012 CHEM 14 0005995 BUN 20 MG/DL 11/25/2012 CHEM 14 2775168 ALBUMIN 4.4 GM/DL 11/25/2012 CHEM 14 9264035 CHLORIDE 99 MMOL/L 11/25/2012 CHEM 14 8373753 BILI TOT 0.6 MG/DL 11/25/2012 CHEM 14 5877246 ALK PHOS 50 U/L 11/25/2012 CHEM 14 6299872 SODIUM 129 MMOL/L 11/25/2012 CHEM 14 2445175 CREATININE 1.20 MG/DL 11/25/2012 CHEM 14 4950895 CALCIUM 9.2 MG/DL 11/25/2012 CHEM 14 7904451 POTASSIUM 5.1 MMOL/L 11/25/2012 CHEM 14 9376733 PROT TOT 6.7 GM/DL 11/25/2012 CHEM 14 2443430 GLUCOSE 196 MG/DL 11/25/2012 CHEM 14 6966001 BICARB 25 MMOL/L 11/25/2012 CHEM 14 4886751 ANION GAP 5 MEQ/L 11/25/2012 CBC 7150341 WBC 6.1 10e9/L 11/25/2012 CBC 8225483 RBC 4.78 10e12/L 11/25/2012 CBC 7557158 HGB 15.0 g/dL 11/25/2012 CBC 6136020 HCT DET 43.4 % 11/25/2012 CBC 7302762 MCV 90.8 fL 11/25/2012 CBC 2158891 MCH 31.4 pg 11/25/2012 CBC 9282039 MCHC 34.6 g/dL 11/25/2012 CBC 3349593 PLT 174 10e9/L 11/25/2012 CBC 0796215 MPV 9.5 fL 11/25/2012 CBC 4486727 JAYESH % 54.6 % 11/25/2012 CBC 1199596 LY % 32.9 % 11/25/2012 CBC 4843470 MON % 9.6 % 11/25/2012 CBC 8315462 EOS % 2.6 % 11/25/2012 CBC 2544247 BASO % 0.3 % 11/25/2012 CBC 6825637 RDW 12.9 % 11/25/2012 CBC 0079389 ABS JAYESH 3.33 10e9/L 11/25/2012 CBC 9818278 ABS LYMPH 2.01 10e9/L 11/25/2012 CBC 1033420 ABS MONO 0.59 10e9/L 11/25/2012 CBC 4698283 ABS EOS 0.16 10e9/L 11/25/2012 CBC 6704812 ABS BASO 0.02 10e9/L 11/25/2012 CBC 9259985 RDW-SD 42.3 fL 11/25/2012 LIPID GRP HDL TEST 39 MG/DL 11/25/2012 LIPID GRP TRIG 204 MG/DL 11/25/2012 LIPID GRP 9913306 TEST LDL 100 MG/DL 11/25/2012 LIPID GRP CHOL 180 MG/DL 11/25/2012 LIPID GRP 2362982 RCHOL/HDL 4.62 RATIO 11/25/2012 A1C HPLC 9612829 A1C HPLC 10641-1 8.2 % 11/25/2012 GFR CALC 3433074 GFR AA >60 ML/MIN 11/25/2012 GFR CALC 7450872 GFR NON-AA 58.0L ML/MIN 11/25/2012 TSH 1919355 TSH 0.636 uIU/ML 01/13/2012 A1C HPLC 2585076 A1C HPLC 02819-7 7.9 % 01/13/2012 GFR CALC 1621202 GFR AA >60 ML/MIN 01/13/2012 GFR CALC 7983831 GFR NON-AA 59.0L ML/MIN 01/13/2012 CBC 9235207 WBC 7.8 10e9/L 01/13/2012 CBC 4817014 RBC 4.93 10e12/L 01/13/2012 CBC 8099548 HGB 15.3 g/dL 01/13/2012 CBC 3095643 HCT DET 43.6 % 01/13/2012 CBC 8244407 MCV 88.4 fL 01/13/2012 CBC 8926272 MCH 31.0 pg 01/13/2012 CBC 8144239 MCHC 35.1 g/dL 01/13/2012 CBC 7132833 PLT 173 10e9/L 01/13/2012 CBC 1055765 MPV 9.1 fL 01/13/2012 CBC 2243072 JAYESH % 57.6 % 01/13/2012 CBC 4652509 LY % 31.5 % 01/13/2012 CBC 2924404 MON % 8.8 % 01/13/2012 CBC 7751159 EOS % 1.8 % 01/13/2012 CBC 0427579 BASO % 0.3 % 01/13/2012 CBC 1576802 RDW 12.9 % 01/13/2012 CBC 1108442 ABS JAYESH 4.49 10e9/L 01/13/2012 CBC 3653244 ABS LYMPH 2.46 10e9/L 01/13/2012 CBC 3155779 ABS MONO 0.69 10e9/L 01/13/2012 CBC 1070586 ABS EOS 0.14 10e9/L 01/13/2012 CBC 1429687 ABS BASO 0.02 10e9/L 01/13/2012 CBC 6047882 RDW-SD 41.2 fL 01/13/2012 CHEM 14 2844233 AST 21 U/L 01/13/2012 CHEM 14 4915668 ALT 23 IU/L 01/13/2012 CHEM 14 1325954 BUN 20 MG/DL 01/13/2012 CHEM 14 4444769 ALBUMIN 4.4 GM/DL 01/13/2012 CHEM 14 5329793 CHLORIDE 94 MMOL/L 01/13/2012 CHEM 14 1344068 BILI TOT 0.5 MG/DL 01/13/2012 CHEM 14 5773840 ALK PHOS 60 U/L 01/13/2012 CHEM 14 1199158 SODIUM 131 MMOL/L 01/13/2012 CHEM 14 5517199 CREATININE 1.20 MG/DL 01/13/2012 CHEM 14 6886655 CALCIUM 9.5 MG/DL 01/13/2012 CHEM 14 0746688 POTASSIUM 4.3 MMOL/L 01/13/2012 CHEM 14 5435669 PROT TOT 6.5 GM/DL 01/13/2012 CHEM 14 4948221 GLUCOSE 172 MG/DL 01/13/2012 CHEM 14 1411982 BICARB 26 MMOL/L 01/13/2012 CHEM 14 0714390 ANION GAP 11 MEQ/L 01/13/2012 Review of Systems System Result Effective Dates Constitutional No recent illness 2016 Constitutional No [...] tenderness 12/26/2013 None Full Exam - General 1995 Abdomen abdominal exam Overall: normal bowel sounds 12/26/2013 None Full Exam - General 1995 Musculoskeletal [...] clear 10/17/2013 None Full Exam - General 1995 Ears/Nose/Throat oral cavity/pharynx/larynx Overall: oral mucosa clear 10/17/2013 None Full Exam - General 1995 Ears/Nose/Throat oral cavity/pharynx/larynx Overall: oropharyngeal mucosa clear 10/17/2013 None Full Exam - General 1995 Ears/Nose/Throat oral cavity/pharynx/larynx Overall: no masses 10/17/2013 [...] clear 04/24/2013 None Full Exam - General 1995 Ears/Nose/Throat oral cavity/pharynx/larynx Overall: oral mucosa clear 04/24/2013 None Full Exam - General 1995 Ears/Nose/Throat oral cavity/pharynx/larynx Overall: oropharyngeal mucosa clear 04/24/2013 None Full Exam - General 1995 Ears/Nose/Throat oral cavity/pharynx/larynx Overall: no masses 04/24/2013 None Full Exam - General 1995 Respiratory auscultation Overall: breath sounds clear bilaterally 04/24/2013 None Full Exam - General 1995 Respiratory respiratory effort/rhythm Overall: no retractions 04/24/2013 None Full Exam - General 1995 Respiratory respiratory effort/rhythm Overall: normal rate 04/24/2013 [...] happy 04/24/2013 None Full Exam - General 1994 Constitutional general appearance Overall: well nourished 03/20/2013 None Full Exam - General 1994 Constitutional general appearance Overall: well developed 03/20/2013 [...] inferior 03/20/2013 None Full Exam - General 1994 Ears/Nose/Throat internal nose Drainage: clear 03/20/2013 None Full Exam - General 1994 Ears/Nose/Throat internal nose Nasal cavity: narrowed 03/20/2013 [...] sounds 03/20/2013 None Full Exam - General 1995 Cardiovascular auscultation of heart Overall: no murmurs 03/20/2013 None Full Exam - General 1994 Abdomen abdominal exam Overall: no tenderness 03/20/2013 None Full Exam - General 1995 Abdomen abdominal exam Overall: normal bowel sounds 03/20/2013 None Full Exam - General 1995 Psychiatric orientation/consciousness Overall: oriented to person, place and time 03/20/2013 None Full Exam - General 1994 Neurologic cranial nerves Overall: crainial nerves 2 - 12 grossly intact 03/20/2013 None Full Exam - General 1995 Constitutional general appearance Overall: well developed 01/19/2013 None Full Exam - General 1995 Constitutional general appearance Overall: in no acute distress 01/19/2013 None Full Exam - General 1995 Constitutional general appearance Overall: well nourished 01/19/2013 [...] bilaterally 01/19/2013 None Full Exam - General 1994 Respiratory respiratory effort/rhythm Overall: no retractions 01/19/2013 None Full Exam - General 1994 Respiratory respiratory effort/rhythm Overall: normal rate 01/19/2013 [...] wide-based 01/19/2013 None Full Exam - General 1995 Neurologic cranial nerves Overall: crainial nerves 2 - 12 grossly intact 01/19/2013 None Full Exam - General 1995 Psychiatric orientation/consciousness Overall: oriented to person, place and time 01/19/2013 None Full Exam - General 1995 Psychiatric mood and affect Overall: normal mood and affect 01/19/2013 None Full Exam - General 1995 Psychiatric mood and affect Mood: happy 01/19/2013 None Full Exam - General 1995 Constitutional general appearance Overall: well developed 12/26/2012 None Full Exam - General 1995 Constitutional general appearance Overall: in no acute distress 12/26/2012 None Full Exam - General 1995 Constitutional general appearance Overall: well nourished 12/26/2012 None Full Exam - General 1994 Psychiatric orientation/consciousness Overall: oriented to person, place and time 12/26/2012 None Full Exam - General 1994 Integument inspection of skin Location: face 12/26/2012 small red lesion with white scale on top- AK- left and right ear-left cheek, top of head x 2, behind right ear Full Exam - General 1995 Constitutional general appearance Overall: well developed 12/21/2012 None Full Exam - General 1995 Constitutional general appearance Overall: in no acute distress 12/21/2012 None Full Exam - General 1994 Constitutional general appearance Overall: well nourished 12/21/2012 None Full Exam - General 1994 Eyes pupils and irises Overall: pupils equal, round, reactive to light and accomodation 12/21/2012 None Full Exam - General 1994 Ears/Nose/Throat otoscopic exam Overall: external auditory canals clear 12/21/2012 None Full Exam - General 1994 Ears/Nose/Throat [...] retractions 12/21/2012 None Full Exam - General 1995 Respiratory respiratory effort/rhythm Overall: normal rate 12/21/2012 None Full Exam - General 1995 Cardiovascular auscultation of heart Overall: regular rate 12/21/2012 None Full Exam - General 1995 Cardiovascular auscultation of heart Overall: normal heart sounds 12/21/2012 None Full Exam - General 1995 Cardiovascular auscultation of heart Overall: no murmurs 12/21/2012 None Full Exam - General 1995 Abdomen abdominal exam Overall: no tenderness 12/21/2012 None Full Exam - General 1995 Abdomen abdominal exam Overall: normal bowel sounds 12/21/2012 None Full Exam - General 1995 Abdomen hernia exam Abdominal hernia present: non-tender 12/21/2012 DIASTASIS RECTI Full Exam - General 1995 Musculoskeletal spine, ribs and pelvis Posture: lordosis 12/21/2012 None Full Exam - General 1995 Neurologic deep tendon reflexes Overall: deep tendon reflexes intact 12/21/2012 None Full Exam - General 1995 Neurologic gait Conventional walking: wide-based 12/21/2012 None [...] distress 11/30/2012 None Full Exam - General 1995 Constitutional general appearance Overall: well nourished 11/30/2012 None Full Exam - General 1994 Eyes pupils and irises Overall: pupils equal, round, reactive to light and accomodation 11/30/2012 None Full Exam - General 1995 [...] 11/30/2012 None Full Exam - General 1994 Musculoskeletal spine, ribs and pelvis Posture: lordosis 11/30/2012 None Full Exam - General 1994 [...] bilaterally 05/30/2012 None Full Exam - General 1995 Respiratory respiratory effort/rhythm Overall: no retractions 05/30/2012 None Full Exam - General 1995 Respiratory respiratory effort/rhythm Overall: normal rate 05/30/2012 None Full Exam - General 1994 Cardiovascular auscultation of heart Overall: regular rate 05/30/2012 None Full Exam - General 1995 Cardiovascular auscultation of heart Overall: normal heart sounds 05/30/2012 None Full Exam - General 1994 Abdomen abdominal exam Overall: normal bowel sounds 05/30/2012 None Full Exam - General 1995 Psychiatric orientation/consciousness Overall: oriented to person, place and time 05/30/2012 None Full Exam - General 1995 Abdomen abdominal exam Upper quadrant: tender to palpation 05/30/2012 None Full Exam - General 1995 Abdomen abdominal exam Upper quadrant: dull pain [...] tenderness 04/26/2012 None Full Exam - General 1994 [...] non-tender 04/14/2012 None Full Exam - General 1995 Chest/Breast breast and axillae palpation Overall: axillae non-tender 04/14/2012 None Full Exam - General 1994 Chest/Breast breast and axillae palpation Overall: no nipple discharge 04/14/2012 None Full Exam - General 1995 Chest/Breast [...] accomodation 01/13/2012 None Full Exam - General 1994 [...] lordosis 09/02/2011 None Full Exam - General 1995 Ears/Nose/Throat [...] accomodation 08/05/2011 None Full Exam - General 1995 Ears/Nose/Throat oral cavity/pharynx/larynx Overall: oral mucosa clear 08/05/2011 None Full Exam - General 1995 Ears/Nose/Throat [...] happy 07/01/2011 None Full Exam - General 1995 Psychiatric mood and affect Overall: normal mood and affect 07/01/2011 None Procedures Procedure Codes Date PPPS, SUBSEQ VISIT CPT -4: G0439 10/12/2016 TRIAMCINOLONE ACET INJ NOS CPT-4: J3301 01/20/2016 C WOUN RTS (CULTURE OTHR SPECIMN AEROBIC) CPT-4: 82307 03/19/2015 DRAINAGE OF SKIN ABSCESS CPT-4: 09418 03/19/2015 ADMIN PNEUMOCOCCAL VACCINE SNOMED CT: 43577686 CPT-4: G0009 03/08/2015 PNEUMOCOCCAL VACC 13 THALIA IM Formatting Model/CDA Sections, Assigned to SNOMED CT: 66021659 CPT-4: 79959Rgjqbak 03/08/2015 ADMIN PNEUMOCOCCAL VACCINE SNOMED CT: 24337516 CPT-4: G0009 01/23/2014 Pneumococcal Polysaccharide Vaccine, 23-Valent, Ad Assigned to/Merissa Sutton CPT-4: 33750Zlabaco 01/23/2014 DESTRUCT PREMALG LESION CPT-4: 34517 10/24/2013 DESTRUCT PREMALG LES 2-14 CPT-4: 95799 10/24/2013 ROUTINE VENIPUNCTURE CPT-4: 75890 05/05/2013 PRESCRIP TRANSMIT VIA ERX SY CPT-4: G8553 04/24/2013 DESTRUCT PREMALG LESION CPT-4: 05771 12/26/2012 PRESCRIP TRANSMIT VIA ERX SY CPT-4: G8553 11/30/2012 ROUTINE VENIPUNCTURE CPT-4: 39006 11/25/2012 PRESCRIP TRANSMIT VIA ERX SY CPT-4: G8553 05/30/2012 PRESCRIP TRANSMIT VIA ERX SY CPT-4: G8553 04/14/2012 PRESCRIP TRANSMIT VIA ERX SY CPT-4: G8553 02/22/2012 ROUTINE VENIPUNCTURE CPT-4: 63146 01/13/2012 ROUTINE VENIPUNCTURE CPT-4: 02759 08/06/2011 ROUTINE VENIPUNCTURE CPT-4: 80159 06/25/2011 Vital Signs Date Vital 02/04/2017 Blood Pressure 1: 140/78 Code : 8480-6 BMI: 30.0 Code : 57223-9 Heart Rate 1 : 83 bpm Height: 6'2" SpO2: 97% Weight: 234 lbs 10/12/2016 Blood Pressure 1: 148/68 Code : 8480-6 BMI: 29.3 Code : 49716-5 Heart Rate 1 : 65 bpm Height: 6'2" SpO2: 100% Weight: 228 lbs 10/08/2016 Blood Pressure 1: 148/68 Code : 8480-6 BMI: 29.3 Code : 82089-3 Heart Rate 1 : 65 bpm Height: 6'2" SpO2: 100% Weight: 228 lbs 8 oz 09/10/2016 Blood Pressure 1: 142/68 Code : 8480-6 BMI: 29.3 Code : 57244-8 Heart Rate 1 : 75 bpm Height: 6'2" SpO2: 97% Weight: 228 lbs 08/24/2016 Blood Pressure 1: 156/86 Code : 8480-6 BMI: 28.1 Code : 16314-6 Heart Rate 1 : 72 bpm Height: 6'2" SpO2: 97% Weight: 219 lbs 08/06/2016 Blood Pressure 1: 172/90 Code : 8480-6 BMI: 29.0 Code : 40897-0 Heart Rate 1 : 68 bpm Height: 6'2" SpO2: 98% Temperature: 36.1 (C) / 96.9 (F) Weight: 226 lbs 07/30/2016 Blood Pressure 1: 138/86 Code : 8480-6 BMI: 29.7 Code : 43472-6 Heart Rate 1 : 80 bpm Height: 6'2" SpO2: 95% Temperature: 36.5 (C) / 97.7 (F) Weight: 231 lbs 06/22/2016 Blood Pressure 1: 145/82 Code : 8480-6 Heart Rate 1: 77 bpm Respiratory Rate : 18 bpm SpO2: 97% Weight: 231 lbs 04/27/2016 Blood Pressure 1: 158/76 Code : 8480-6 Blood Pressure 1: 182/78 Code: 8480-6 BMI: 30.4 Code: 54187-9 Heart Rate 1: 69 bpm Height: 6'2" SpO2: 97% Weight: 237 lbs 03/23/2016 Blood Pressure 1: 140/82 Code : 8480-6 BMI: 30.4 Code : 79275-3 Heart Rate 1 : 77 bpm Height: 6'2" SpO2: 93% Weight: 237 lbs 01/20/2016 Blood Pressure 1: 142/80 Code : 8480-6 BMI: 31.2 Code : 39912-0 Heart Rate 1 : 64 bpm Height: 6'2" SpO2: 93% Weight: 243 lbs 12/16/2015 Blood Pressure 1: 138/88 Code : 8480-6 BMI: 30.3 Code : 11812-5 Heart Rate 1 : 62 bpm Height: 6'2" SpO2: 97% Weight: 236 lbs 12/09/2015 Blood Pressure 1: 148/80 Code : 8480-6 Blood Pressure 1: 198/92 Code: 8480-6 Blood Pressure 1: 152/70 Code: 8480-6 BMI: 30.3 Code: 42373-5 Heart Rate 1: 84 bpm Height: 6'2" Weight: 236 lbs 11/25/2015 Blood Pressure 1: 160/80 Code : 8480-6 BMI: 30.2 Code : 41176-1 Heart Rate 1 : 68 bpm Height: 6'2" SpO2: 96% Weight: 235 lbs 09/02/2015 Blood Pressure 1: 122/64 Code : 8480-6 BMI: 30.2 Code : 45253-3 Heart Rate 1 : 86 bpm Height: 6'2" SpO2: 98% Weight: 235 lbs 08/05/2015 Blood Pressure 1: 130/70 Code : 8480-6 Heart Rate 1: 81 bpm SpO2: 97% Weight: 233 lbs 07/25/2015 Blood Pressure 1: 142/80 Code : 8480-6 BMI: 30.0 Code : 34944-3 Heart Rate 1 : 74 bpm Height: 6'2" SpO2: 95% Weight: 234 lbs 06/03/2015 Blood Pressure 1: 150/68 Code : 8480-6 BMI: 30.0 Code : 97443-0 Heart Rate 1 : 66 bpm Height: 6'2" SpO2: 96% Weight: 234 lbs 03/19/2015 Blood Pressure 1: 154/78 Code : 8480-6 BMI: 30.3 Code : 72026-2 Heart Rate 1 : 63 bpm Height: 6'2" SpO2: 96% Weight: 236 lbs 03/04/2015 Blood Pressure 1: 124/68 Code : 8480-6 BMI: 30.2 Code : 70611-8 Heart Rate 1 : 60 bpm Height: 6'2" SpO2: 97% Weight: 235 lbs 02/20/2015 Blood Pressure 1: 160/84 Code : 8480-6 BMI: 30.8 Code : 03410-8 Heart Rate 1 : 79 bpm Height: 6'2" SpO2: 96% Weight: 240 lbs 02/11/2015 Blood Pressure 1: 170/102 Code: 8480-6 BMI: 31.1 Code: 32421-8 Heart Rate 1: 81 bpm Height: 6'2" SpO2: 96% Weight: 242 lbs 01/28/2015 Blood Pressure 1: 174/80 Code : 8480-6 Blood Pressure 2: 168/74 Code: 8480-6 BMI: 31.2 Code: 27323-3 Heart Rate 1: 74 bpm Height: 6'2" SpO2: 97% Weight: 243 lbs 10/01/2014 Blood Pressure 1: 152/84 Code : 8480-6 BMI: 30.4 Code : 10809-2 Heart Rate 1 : 80 bpm Height: 6'2" SpO2: 96% Weight: 237 lbs 05/30/2014 Blood Pressure 1: 140/82 Code : 8480-6 BMI: 30.6 Code : 31861-3 Heart Rate 1 : 86 bpm Height: 6'2" Weight: 238 lbs 02/28/2014 Blood Pressure 1: 152/86 Code : 8480-6 BMI: 29.5 Code : 87751-3 Heart Rate 1 : 64 bpm Height: 6'2" Weight: 230 lbs 01/23/2014 Blood Pressure 1: 142/68 Code : 8480-6 BMI: 29.7 Code : 17931-9 Heart Rate 1 : 80 bpm Height: 6'2" Weight: 231 lbs 12/26/2013 Blood Pressure 1: 150/72 Code : 8480-6 BMI: 29.3 Code : 91896-0 Heart Rate 1 : 60 bpm Height: 6'2" Respiratory Rate: 16 bpm Weight: 228 lbs 8 oz 10/24/2013 Blood Pressure 1: 140/84 Code : 8480-6 Heart Rate 1: 60 bpm 10/17/2013 Blood Pressure 1: 166/72 Code : 8480-6 BMI: 28.8 Code : 67516-4 Heart Rate 1 : 68 bpm Height: 6'2" Weight: 224 lbs 07/24/2013 Blood Pressure 1: 112/64 Code : 8480-6 BMI: 29.1 Code : 52619-7 Heart Rate 1 : 80 bpm Height: 6'2" Weight: 227 lbs 04/24/2013 Blood Pressure 1: 130/74 Code : 8480-6 BMI: 28.9 Code : 32151-8 Heart Rate 1 : 76 bpm Height: 6'2" Weight: 225 lbs 6 oz 03/20/2013 Blood Pressure 1: 150/70 Code : 8480-6 BMI: 29.7 Code : 72288-5 Heart Rate 1 : 76 bpm Height: 6'2" Temperature: 37.0 (C) / 98.6 (F) Weight: 231 lbs 01/19/2013 Blood Pressure 1: 150/78 Code : 8480-6 BMI: 30.2 Code : 81538-6 Heart Rate 1 : 84 bpm Height: 6'2" Weight: 235 lbs 12/26/2012 Blood Pressure 1: 142/78 Code : 8480-6 BMI: 29.9 Code : 23252-0 Heart Rate 1 : 84 bpm Height: 6'2" Weight: 233 lbs 12/21/2012 Blood Pressure 1: 142/80 Code : 8480-6 BMI: 29.5 Code : 77722-5 Heart Rate 1 : 80 bpm Height: 6'2" Weight: 230 lbs 11/30/2012 Blood Pressure 1: 146/78 Code : 8480-6 BMI: 29.4 Code : 61954-0 Heart Rate 1 : 80 bpm Height: 6'2" Weight: 229 lbs 05/30/2012 Blood Pressure 1: 150/74 Code : 8480-6 BMI: 29.4 Code : 68212-0 Heart Rate 1 : 76 bpm Height: 6'2" Respiratory Rate: 16 bpm Weight: 229 lbs 04/26/2012 Blood Pressure 1: 124/64 Code : 8480-6 Heart Rate 1: 90 bpm SpO2: 98% Temperature: 36.7 (C) / 98.1 (F) Weight: 04/14/2012 Blood Pressure 1: 150/88 Code : 8480-6 Blood Pressure 2: 150/90 Code: 8480-6 BMI: 29.4 Code: 05723-1 Heart Rate 1: 72 bpm Height: 6'2" [...] Code : 8480-6 BMI: 28.9 Code : 40533-9 Heart Rate 1 : 64 bpm Height: 6'2" Weight: 225 lbs 08/05/2011 Blood Pressure 1: 142/72 Code : 8480-6 BMI: 29.3 Code : 86965-2 Heart Rate 1 : 80 bpm Height: 6'2" Weight: 228 lbs 07/01/2011 Blood Pressure 1: 136/70 Code : 8480-6 BMI: 29.2 Code : 06081-1 Heart Rate 1 : 68 bpm Height: 6'2" Respiratory Rate: 16 bpm Weight: 227 lbs 8 oz Functional Status No Functional Status data History of Present Illness Symptom Name Status Result Effective Date Notes hypothyroid Onset and Resolution ongoing 02/04/2017 None [...] doing physical therapy for parkinson's disease at [facility] diabetes mellitus Alleviating Factors insulin 01/19/2013 [...] data Encounters Encounter Performer Location Codes Date EST. PATIENT, LEVEL IV Diagnosis: Type 2 diabetes mellitus with hyperglycemia[ICD10: E11.65] Diagnosis: Essential (primary) hypertension[ICD10: I10] Diagnosis: Hypothyroidism, unspecified[ICD10: E03.9] Ginny Medley MD, [facility] CPT-4: 73604 02/04/2017 ([id number]) 68749 EST. PATIENT, LEVEL III Diagnosis: Essential (primary) hypertension[ICD10: I10] Diagnosis: Hypothyroidism, unspecified[ICD10: E03.9] Ginny Medley MD, [facility] CPT-4: 51977 10/08/2016 ([id number]) 52230 EST. PATIENT, LEVEL III Diagnosis: Allergic rhinitis due to pollen[ICD10: J30.1] Diagnosis: Hypothyroidism, unspecified[ICD10: E03.9] Ginny Medley MD, [facility] CPT-4: 35163 09/10/2016 ([id number]) 09484 EST. 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 PATIENT, LEVEL IV Diagnosis: Abdominal distension (gaseous)[ICD10: R14.0] Diagnosis: Cough[ICD10: R05] Diagnosis: Acute bronchitis, unspecified[ICD10: J20.9] Diagnosis: Essential (primary) hypertension[ICD10: I10] Ginny Medley MD, [facility] CPT-4: 40217 08/06/2016 ([id number]) 52521 EST. PATIENT, LEVEL III Diagnosis: Cough[ICD10: R05] Diagnosis: Acute upper respiratory infection, unspecified[ICD10: J06.9] Ginny Medley MD, [facility] CPT-4: 84352 07/30/2016 ([id number]) 30290 EST. PATIENT, LEVEL IV Diagnosis: Type 2 diabetes mellitus with hyperglycemia[ICD10: E11.65] Diagnosis: Essential (primary) hypertension[ICD10: I10] Diagnosis: Parkinson's disease[ICD10: G20] Diagnosis: Localized edema[ICD10: R60.0] Ginny Medley MD, [facility] CPT-4: 40876 06/22/2016 ([id number]) 61299 EST. PATIENT, LEVEL IV Diagnosis: Essential (primary) hypertension[ICD10: I10] Diagnosis: Type 2 diabetes mellitus with hyperglycemia[ICD10: E11.65] Diagnosis: Hypo-osmolality and hyponatremia[ICD10: E87.1] Diagnosis: Hesitancy of micturition[ICD10: R39.11] Ginny Medley MD, [facility] CPT-4: 10151 04/27/2016 ([id number]) 95819 EST. PATIENT, LEVEL III Diagnosis: Essential (primary) hypertension[ICD10: I10] Diagnosis: Localized edema[ICD10: R60.0] Ginny Medley MD, [facility] CPT-4: 88818 03/23/2016 ([id number]) 45604 EST. PATIENT, LEVEL IV Diagnosis: Low back pain[ICD10: M54.5] Diagnosis: Hypo-osmolality and hyponatremia[ICD10: E87.1] Diagnosis: Essential (primary) hypertension[ICD10: I10] Diagnosis: Localized edema[ICD10: R60.0] Diagnosis: Type 2 diabetes mellitus with hyperglycemia[ICD10: E11.65] Ginny Medley MD, [facility] CPT-4: 28632 01/20/2016 ([id number]) 19303 EST. PATIENT, LEVEL III Diagnosis: Type 2 diabetes mellitus with hyperglycemia[ICD10: E11.65] Diagnosis: Essential (primary) hypertension[ICD10: I10] Diagnosis: Hypo-osmolality and hyponatremia[ICD10: E87.1] Ginny Medley MD, [facility] CPT-4: 71088 12/16/2015 ([id number]) 63636 EST. PATIENT, LEVEL III Diagnosis: Essential (primary) hypertension[ICD10: I10] Diagnosis: Hypo-osmolality and hyponatremia[ICD10: E87.1] Ginny Medley MD, [facility] CPT-4: 82108 12/09/2015 ([id number]) 62366 EST. PATIENT, LEVEL IV Diagnosis: Essential (primary) hypertension[ICD10: I10] Diagnosis: Type 2 diabetes mellitus with hyperglycemia[ICD10: E11.65] Diagnosis: Parkinson's disease[ICD10: G20] Ginny Medley MD, [facility] CPT-4: 45551 11/25/2015 60023 EST. PATIENT, LEVEL III Diagnosis: Localized edema[ICD10: R60.0] Diagnosis: Essential (primary) hypertension[ICD10: I10] Bonita Medley MD, [facility] CPT-4: 62362 09/02/2015 ([id number]) 32720 EST. PATIENT, LEVEL III Diagnosis: Localized edema[ICD10: R60.0] Ginny Medley MD, [facility] CPT-4: 97115 08/05/2015 ([id number]) 99969 EST. PATIENT, LEVEL III Diagnosis: Localized edema[ICD10: R60.0] Diagnosis: Unspecified open wound, right ankle, initial encounter[ICD10: S91.001A] Ginny Medley MD, [facility] CPT-4: 45888 ([id number]) 60545 EST. PATIENT, LEVEL IV Diagnosis: Essential (primary) hypertension[ICD10: I10] Diagnosis: Localized edema[ICD10: R60.0] Diagnosis: Low back pain[ICD10: M54.5] Diagnosis: Type 2 diabetes mellitus with hyperglycemia[ICD10: E11.65] Ginny Medley MD, [facility] CPT-4: 17751 06/03/2015 ([id number]) Miscellaneous no charge Diagnosis: Encounter for other specified aftercare[ICD10: Z51.89] [facility] CPT-4: 16061 03/20/2015 21385 EST. PATIENT, LEVEL IV Diagnosis: Cutaneous abscess of chest wall[ICD10: L02.213] Yoli Medley MD, [facility] CPT-4: 50402 03/19/2015 ([id number]) 67913 EST. PATIENT, LEVEL III Diagnosis: Edema, unspecified[ICD10: R60.9] Yoli Medley MD [facility] CPT-4: 06175 03/04/2015 00393 EST. PATIENT, LEVEL III Diagnosis: Edema, unspecified[ICD10: R60.9] Diagnosis: Unspecified open wound, right ankle, initial encounter[ICD10: S91.001A] Yoli Medley MD [facility] CPT-4: 45607 07/2014 ([id number]) 31340 EST. PATIENT, LEVEL III Diagnosis: Edema, unspecified[ICD10: R60.9] Yoli Medley MD [facility] CPT-4: 01742 02/11/2015 ([id number]) 48726 EST. PATIENT, LEVEL IV Diagnosis: Type 2 diabetes mellitus with hyperglycemia[ICD10: E11.65] Diagnosis: Essential (primary) hypertension[ICD10: I10] Diagnosis: Edema, unspecified[ICD10: R60.9] Yoli Medley MD [facility] CPT-4: 51163 01/28/2015 ([id number]) 86854 EST. PATIENT, LEVEL IV Diagnosis: DIABETES TYPE II[ICD9: 250.00] Diagnosis: ESSENTIAL HYPERTENSION[ICD9: 401.9] Diagnosis: Parkinsons disease[ICD9: 332.0] Yoli Medley MD [facility] CPT- 4: 28425 10/01/2014 ([id number]) 42858 EST. PATIENT, LEVEL IV Diagnosis: ESSENTIAL HYPERTENSION[ICD9: 401.9] Diagnosis: DIABETES TYPE II[ICD9: 250.00] Diagnosis: Parkinsons disease[ICD9: 332.0] Yoli Medley MD [facility] CPT- 4: 49257 05/30/2014 ([id number]) 54826 EST. PATIENT, LEVEL IV Diagnosis: DIABETES TYPE II[ICD9: 250.00] Diagnosis: ESSENTIAL HYPERTENSION[ICD9: 401.9] Diagnosis: Back pain[ICD9: 724.5] Yoli Medley MD [facility] CPT-4: 87941 02/28/2014 ([id number]) 89619 EST. PATIENT, LEVEL III Diagnosis: ESOPHAGEAL REFLUX[ICD9: 530.81] Diagnosis: Esophageal ulcer[ICD9: 530.20] Yoli Medley MD [facility] CPT- 4: 11540 01/23/2014 ([id number]) 08976 EST. PATIENT, LEVEL IV Diagnosis: ESOPHAGEAL REFLUX[ICD9: 530.81] Diagnosis: ESSENTIAL HYPERTENSION[ICD9: 401.9] Yoli Medley MD [facility] CPT-4: 75148 12/26/2013 ([id number]) 82388 EST. PATIENT, LEVEL IV Diagnosis: Diabetes type 2, uncontrolled[ICD9: 250.02] Diagnosis: ESSENTIAL HYPERTENSION[ICD9: 401.9] Diagnosis: Back pain[ICD9: 724.5] Diagnosis: ELEVATED PSA[ICD9: 790.93] Yoli Medley MD [facility] CPT- 4: 55271 10/17/2013 ([id number]) 65517 EST. PATIENT, LEVEL IV Diagnosis: DIABETES TYPE II[SNOMED: 745939341] Diagnosis: ESSENTIAL HYPERTENSION[SNOMED: 71287191] Diagnosis: Sleep apnea[ICD9: 780.57] Yoli Medley MD [facility] CPT-4: 36767 07/24/2013 ([id number]) 10230 EST. PATIENT, LEVEL IV Diagnosis: DIABETES TYPE II[SNOMED: 507386907] Diagnosis: ESSENTIAL HYPERTENSION[SNOMED: 03247099] Diagnosis: HYPERLIPIDEMIA[ICD9: 272.4] Yoli Medley MD [facility] CPT- 4: 33217 04/24/2013 ([id number]) 25553 EST. PATIENT, LEVEL III Diagnosis: DIABETES TYPE II[SNOMED: 886818036] Yoli Medley MD [facility] CPT-4: 04038 03/20/2013 ([id number]) 76694 EST. PATIENT, LEVEL III Diagnosis: DM W/O COMPLICATION TYPE II, UNCONTROLLED[SNOMED: 12694648] Yoli Medley MD [facility] CPT-4: 34677 01/19/2013 ([id number]) 64508 EST. PATIENT, LEVEL III Diagnosis: DM W/O COMPLICATION TYPE II, UNCONTROLLED[SNOMED: 85720221] Yoli Medley MD [facility] CPT-4: 67036 12/21/2012 ([id number]) 98100 EST. PATIENT, LEVEL IV Diagnosis: DM W/O COMPLICATION TYPE II, UNCONTROLLED[SNOMED: 60954418] Diagnosis: Parkinsons disease[ICD9: 332.0] Diagnosis: Back pain[ICD9: 724.5] Diagnosis: Gait instability[ICD9: 781.2] Yoli Medley MD [facility] CPT- 4: 92671 11/30/2012 ([id number]) 46181 EST. PATIENT, LEVEL IV Diagnosis: ESSENTIAL HYPERTENSION[SNOMED: 19094942] Diagnosis: Abdominal pain[ICD9: 789.00] Diagnosis: DIABETES TYPE II[SNOMED: 542050884] Yoli Medley MD [facility] CPT-4: 82208 05/30/2012 ([id number]) 75077 EST. PATIENT, LEVEL III Diagnosis: Gastroenteritis[ICD9: 558.9] Ginny Medley MD [facility] CPT-4: 34189 04/26/2012 ([id number]) 64950 EST. PATIENT, LEVEL IV Diagnosis: ESSENTIAL HYPERTENSION[SNOMED: 66275475] Diagnosis: DIABETES TYPE II[SNOMED: 255362651] Diagnosis: Claw toe[ICD9: 735.5] Yoli Medley MD [facility] CPT-4: 38578 04/14/2012 ([id number]) 81918 EST. PATIENT, LEVEL III Diagnosis: Rash[ICD9: 782.1] Diagnosis: DERMATOPHYTOSIS OF FOOT[ICD9: 110.4] Ginny Medley MD [facility] CPT-4: 58717 02/22/2012 ([id number]) 78354 EST. PATIENT, LEVEL IV Diagnosis: DM W/O COMPLICATION TYPE II, UNCONTROLLED[SNOMED: 51402327] Diagnosis: ESSENTIAL HYPERTENSION[SNOMED: 64675003] Diagnosis: Constipation - functional[ICD9: 564.09] Diagnosis: Encounter for long-term (current) use of other high-risk medications[ ICD9: V58.69] Yoli Medley MD [facility] CPT-4: 77686 01/13/2012 ([id number]) 52566 EST. PATIENT, LEVEL IV Diagnosis: ESSENTIAL HYPERTENSION[SNOMED: 59089738] Diagnosis: DIABETES TYPE II[SNOMED: 016174092] Yoli Medley MD [facility] CPT-4: 27416 09/02/2011 09856 EST. PATIENT, LEVEL IV Diagnosis: LUMBAGO[ICD9: 724.2] Diagnosis: Sacroiliitis[ICD9: 720.2] [facility] CPT-4: 99376 08/05/2011 ([id number]) 14486 EST. PATIENT, LEVEL IV Diagnosis: ESSENTIAL HYPERTENSION[SNOMED: 88766253] Diagnosis: DIABETES TYPE II[SNOMED: 283026668] Diagnosis: Breast mass in male[ICD9: 611.72] Diagnosis: Chronic hyponatremia[ICD9: 276.1] [facility] CPT-4: 23520 07/01/2011 Plan of Care Planned Activity Notes Codes Status Date Appointment: [phone] [facility] (15 min) Moderate 04/28/2017 Appointment: [phone] (30 min) Complex 04/16/2017 Appointment: Bonita Villa WPtel[facility] (30 min) Complex 04/15/2017 Visit Plan: Hypertension - well controlled [...] of control. 02/04/2017 Appointment: Ginny Pearl WPtel: [phone] [phone] (30 min) Complex 02/04/2017 Patient Education: Patient Medication Summary Completed 02/04/2017 Patient Education: Obesity Completed 02/04/2017 Patient Education: Patient Medication Summary Completed 02/01/2017 Appointment: Dae Ginny WPtel: [phone] [phone] [place] (30 min) Complex 01/12/2017 Appointment: PearlGinny WPtel: [phone] [phone] [place] (30 min) Complex 01/07/2017 Visit Plan: [...] surrogate. 10/12/2016 Appointment: [facility] [phone] [facility] [facility] - Annual Wellness Visit 10/12/2016 Patient [...] 3 months. 10/08/2016 Appointment: Ginny Pearl WPtel: [phone] [phone] (30 min) Complex 10/08/2016 Patient Education: Patient Medication Summary Completed 10/08/2016 Patient Education: Hypertension Completed 10/08/2016 Visit Plan: Allergies-continue daily anti histamine-call if symptoms do not improve or if any worse S/P total thyroidectomy-now on levothyroxine-repeat labs in 1 month 09/10/2016 Appointment: [phone] [phone] (30 min) Complex 09/10/2016 Patient Education: Patient [...] [place] to do total thyroidectomy on Wednesday Qjygftbrzz-xxqhf-xdkcat-due to thyroid nodules-will monitor symptoms for now [...] [place] to do total thyroidectomy on Wednesday Fcvbpddtpy-vqqmt-bqqupv-due to thyroid nodules-will monitor symptoms for now 08/24/2016 Appointment: Ginny Pearl WPtel: [phone] [place] (30 min) Complex 08/24/2016 Patient Education: Patient Medication Summary Completed 08/24/2016 Visit Plan: Abdominal bdyzlutn-rfejjjrsdwxq-SGC today Bronchitis - acute case of bronchitis [...] at home 08/06/2016 Appointment: Ginny Pearl WPtel: [phone] [place] (10 min) Simple 08/06/2016 Patient Education: Patient Medication Summary Completed 08/06/2016 Visit Plan: URI - Pt advised to increase fluids, vitamin C. Discussed natural and expected course of this diagnosis and need to alert me if symptoms do not follow expected course, or if any worse. RX sent to patient' s pharmacy. 07/30/2016 Appointment: Ginny Pearl WPtel: [phone] [place] (15 min) Moderate 07/30/2016 Patient Education: Patient [...] worsen. 06/22/2016 Appointment: Ginny Pearl WPtel: [phone] [phone] (30 min) Complex 06/22/2016 Patient Education: Patient [...] negative 04/27/2016 Appointment: [facility] [phone] [phone] (30 min) Complex 04/27/2016 Patient Education: Patient [...] peripheral edema. 03/23/2016 Appointment: Ginny Pearl WPtel: [phone] [phone] (30 min) Complex 03/23/2016 Patient Education: Patient [...] in the office. Refer for PT at [facility] Low back pain, generalized weakness, Parkinsons Low sbzohb-fwidwot-jf need for increase sodium intake Hypertension - [...] Hgb A1C 01/20/2016 Appointment: [facility] [phone] [phone] (30 min) Complex 01/20/2016 Patient Education: Patient Medication Summary Completed 01/20/2016 Patient Education: Obesity Completed 01/20/2016 Care Plan: Comp Metabolic Pending 01/20/2016 Care Plan: Cbc With Differential Pending 01/20/2016 Care Plan: %Hba1C LOINC : 81650-3 Pending 01/20/2016 Visit Plan: Diabetes Mellitus - [...] Low sodium-check labs today 12/09/2015 Appointment: Ginny Peral [facility] [phone] [phone] (30 min) Complex 12/09/2015 Patient Education: Patient [...] symptoms worsen. 11/25/2015 Appointment: [facility] [phone] [phone] (30 min) Complex 11/25/2015 Patient Education: Patient [...] 03/26/2015 Care Plan: Referral Order SNOMED-CT : [id number] Ordered 03/26/2015 Patient Education: Patient Medication Summary [...] 02/20/2015 Care Plan: Referral Order SNOMED-CT : [id number] Ordered 02/20/2015 Visit Plan: Hypertension - uncontrolled [...] - SPIRONOLACTONE 02/11/2015 Appointment: Yoli Medley WPtel: [address] [place] [phone] (15 min) Moderate 02/11/2015 Patient Education: Patient [...] blood pressure. 01/28/2015 Appointment: Yoli Medley WPtel: [facility] ([facility] min) Moderate 01/28/2015 Patient Education: Patient [...] symptoms worsen. 10/01/2014 Appointment: Yoli Medley WPtel: [facility] [place] Follow up 10/01/2014 Patient Education: Patient Medication [...] symptoms worsen. 05/30/2014 Appointment: Yoli Medley WPtel: [facility] Follow up 05/30/2014 Patient Education: Patient Medication [...] January 29. 01/23/2014 Appointment: Yoli Medley WPtel: [phone] [facility] Follow up 01/23/2014 Patient Education: Patient Medication [...] home. 12/26/2013 Appointment: [facility] [phone] [facility] Follow up 12/26/2013 Patient Education: Patient Medication Summary Completed 12/26/2013 Patient Education: Hypertension Completed 12/26/2013 Visit Plan: Wound Instructions - Pt was instruced to keep the wound clean, wash with antibacterial soap, use triple antibiotic ointment, call if redness, pustular drainage, or any other acute conerns. 10/24/2013 Appointment: [facility] [phone] [phone] Surgical Procedure 10/24/2013 Patient Education: Patient Medication [...] lesions. 10/17/2013 Appointment: [facility] [phone] [facility] [place] Follow up 10/17/2013 Patient Education: Patient Medication [...] like to have his Oxygen company - [employer] - help with arranging oxygen when he is in [facility]. 07/24/2013 Appointment: Y[facility] Med[facility]Ptel[facility] [phone] [facility] [place] Follow up 07/24/2013 Patient Education: Patient Medication Summary Completed 07/24/2013 Patient Education: Hypertension Completed 07/24/2013 Appointment: G[facility] Pearl [facility]el[facility] [phone] [phone] [place] Lab Draw 05/05/2013 Patient Education: Patient Medication Summary Completed 05/05/2013 Patient Education: Hypertension Completed 05/05/2013 Appointment: [facility]Ptel[facility] [phone] [facility] Follow up 05/01/2013 Visit Plan: Diabetes Mellitus [...] DAILY. 01/19/2013 Appointment: [facility] [phone] [facility] Follow up 01/19/2013 Patient Education: Patient Medication Summary Completed 01/19/2013 Visit Plan: JM-ionhrqly-iablngltmns today in the office- wound Instructions - Pt was instruced to keep the wound clean, wash with antibacterial soap, use triple antibiotic ointment, call if redness, pustular drainage, or any other acute conerns. 12/26/2012 Appointment: Ginny Pearl WPtel: [phone] [phone] [facility] 12/26/2012 Patient Education: Patient Medication Summary Completed [...] glucose. 12/21/2012 Appointment: [facility]Ptel: [phone] [facility] Follow up 12/21/2012 Patient Education: Patient Medication Summary Completed 12/21/2012 Visit Plan: Parkinsons disease - rx for sinemet 25/100mg 1/ 2 pill in morning and 1/2 pill in evening, pt to let us know if the symptoms improve. Referral to Miguel at [facility] for gait instability. Diabetes Mellitus - [...] Back pain and gait instability - recommended eval at [facility] - continue with back brace as it offers support for the patient. 11/30/2012 Appointment: Y[facility] Med[facility]Ptel[facility] [phone] [facility] Follow up 11/30/2012 Patient Education: Patient Medication [...] been previously. 05/30/2012 Appointment: [facility]el[facility] [phone] [facility] [facility] f/u Follow up 05/30/2012 Patient [...] to seek support for his arches via family engagement specialist eval and perhaps arch supports to be custom made or custom fitted. 04/14/2012 Appointment: [facility] Med[facility]el[facility] [phone] [facility] Follow up 04/14/2012 Patient Education: Patient Medication Summary Completed 04/14/2012 Patient Education: Hypertension Completed 04/14/2012 Visit Plan: Rash- Discussed natural and expected course of this diagnosis and need to alert me if symtpoms do not follow expected course, or if any worse. RX sent to patient's pharmacy. 02/22/2012 Appointment: [phone] [phone] Other 02/22/2012 Patient Education: Patient Medication Summary Completed [...] this regimen. 01/13/2012 Appointment: Yoli Medley WPtel: [facility] Established Patient Preventative visit 01/13/2012 Patient Education: [...] less controlled. 09/02/2011 Appointment: Yoli Medley WPtel: [facility]5 [facility] [facility] 09/02/2011 Patient Education: Patient Medication Summary Completed 09/02/2011 Patient Education: High Blood Pressure: Essential Hypertension Completed 2011 Appointment: Ginny Pearl WPtel: [phone] [place] Lab Draw 08/06/2011 Patient Education: Patient [...] metformin bid. 08/05/2011 Appointment: Yoli Medley WPtel: [facility] [address] Other 08/05/2011 Patient Education: Patient Medication Summary [...] at home. 07/01/2011 Appointment: Yoli Medley WPtel: [facility] Other 07/01/2011 Patient Education: Patient Medication Summary Completed 07/01/2011 Patient Education: High Blood Pressure: Essential Hypertension Completed 2011 Appointment: Yoli Medley WPtel: [phone] [id number] [place] Lab Draw 06/25/2011 Patient Education: Patient Medication Summary Completed 06/25/2011 Patient Education: High Blood Pressure: Essential Hypertension Completed 2011 Referral: [facility] WPtel: [address] [id number] [place] Referral Initiated Referral: Dangelo Ford Referral Initiated Instructions Comment CALL IF YOUR BACK PAIN DOES NOT IMPROVE OR IF ANY WORSE CHECK LABS STOP EXTRA SODIUM REFER TO [facility] FOR PHYSICAL THERAPY DX PARKIN[place]S, BACK PAIN, WEAKNESS . Low back pain- the patient was instructed in appropriate posture, need for weight loss to alleviate abdominal obesity that is worsening the patient's back pain. The patient is to call the office if the pain is worsening or does not improve. Kenalog injection today in the office. Refer for PT at [facility] Low back pain, generalized weakness, Parkinsons Low xuvhpl-fvrlhbc-iz need for increase sodium intake Hypertension - [...] to reduce peripheral edema. DM-check Hgb A1C INCREASE LANTUS TO 16 UNITS DAILY. Declined Procedure: (Q2036) FLULAVAL VACC, 3 YRS & >, IM; Declined Reason: Patient Declined. . Wound Instructions - Pt was instruced [...] Ford to do total thyroidectomy on Wednesday Yqrvavqaar-uwxzj-iqhowj-due to thyroid nodules-will monitor symptoms for now [...] based on previous levels of control. . Rash- Discussed natural and expected course of this diagnosis and need to alert me if symtpoms do not follow expected course, or if any worse. RX sent to patient's pharmacy. . Esophageal Reflux - the patient has [...] change in blood pressure readings at home. daily anti histamine such as zyrtec kenalog [...] to further attempt to reduce peripheral edema. CXR and KUB Lab work- CBC, CMP, BNP . Abdominal dfowbjmz-fpbtqsxqcrbz-BZL today Bronchitis - acute case of bronchitis [...] plan. HTN-no changes in medications-monitor at home take 2 lasix Wednesday morning, 2 Lasix [...] new diuretic - SPIRONOLACTONE . Hypertension - continue with current medications, continue with no added salt diet. Pt has been encouraged to exercise daily. The pt has been advised to call the office if there are any acute concerns about change in blood pressure readings at home. Bilateral thyroid nodules-voice hoarseness-Dr Ford to do total thyroidectomy on Wednesday Ocondnewvb-psocl-dbrrdn-due to thyroid nodules-will monitor symptoms for now . Hypertension - well controlled - continue with current medications, continue with no added salt diet. Pt has been encouraged to exercise daily. The pt has been advised to call the office if there are any acute concerns about change in blood pressure readings at home. Coxjsoxcfkxbln-onfglcsg-lrmugul medication increased by Dr Ford and wants [...] on lasix should drop blood pressure. . Chronic hyponatremia - Increase fluids - [...] change in blood pressure readings at home. INCREASE LANTUS TO 16 UNITS DAILY.. Diabetes [...] INCREASE LANTUS TO 16 UNITS DAILY. . Diabetes Mellitus - Uncontrolled - per [...] that has ability to increase blood glucose. . Diabetes Mellitus - controlled - per [...] to alert this office if symptoms worsen. PATIENT IS TO CHECK BLOOD PRESSURE AND [...] symptoms not improved on this regimen. . Allergies-continue daily anti histamine-call if symptoms do not improve or if any worse S/P total thyroidectomy-now on levothyroxine-repeat labs in 1 month TRY HYDROCODONE FOR PAIN INSTEAD OF THE [...] DUE TO RENAL DISEASE-use hydrocodone prn . Abscess/Cellulitis- left anterior chest -incision and drainage today in the office- The patient was instructed in appropriate wound care. The patient was instructed to use the antibiotic as per RX. The patient is to call for any change in symptoms, increase in size of the lesion, increase in pain. Return tomorrow for wound check and repacking the wound. dr send a script for sucralfate liquid [...] carbohydrates than he had been previously. . Diarrhea - recommended bland diet, low fat diet, start on probiotic, and rehydrate with gatorade-like product. Pt to call if feeling worse, diarrhea becomes bloody, or does not improve with above recommendations. Pt to call for acute worsening of stomach upset or stomach pain. Probiotic twice daily. . Diabetes Mellitus - I have recommended [...] are starting to become less controlled. . Low back pain- the patient was [...] plan. Pt is back to metformin bid. REFER TO OT AT THE HOSPITAL FOR [...] to further attempt to reduce peripheral edema. call and let me know if you [...] Low sodium-check labs Urinary hesitancy-UA negative . Hypertension - well controlled - continue [...] are starting to become less controlled. . Edema - pt has been advised [...] like to have his Oxygen company - [employer] - help with arranging oxygen when he is in [facility]. . Parkinsons disease - rx for sinemet 25/100mg 1/2 pill in morning and 1/2 pill in evening, pt to let us know if the symptoms improve. Referral to Miguel at [facility] for gait instability. Diabetes Mellitus - [...] and gait instability - recommended christina at [facility] - continue with back brace as it offers support for the patient. . ON-bndnugzi-wzutzfnpyez today in the office-wound Instructions - Pt [...] to seek support for his arches via family engagement specialist eval and perhaps arch supports to be [...] if symptoms worsen. . Diabetes Mellitus - controlled - per [...]
[2017-11-07] MEDS ORDERED: FINA5TAB6 (17:06)
[2017-11-07] MEDS ORDERED: POTA10TA10 (17:06)
[2017-11-07] MEDS ORDERED: LEVO175T5 (17:06)
--- OUTSIDE RECORDS SUMMARY | 2017-11-07 17:13 | XMS REPORT | CCD ---
Author Author [facility] Organization [facility] Address [address] [place] [address] Phone Care Team Providers Care Seed Trucker Name Role Phone PP Unavailable CCM Unavailable Summary Purpose Interface Exchange Insurance Providers Payer name Policy type / Coverage type Covered libertarian ID Effective Begin Date Effective End Date WPS Medicare Part B Medicare Part B [id number] Unknown [facility] Medicare Part B [id number] Unknown Family history Runs in the family Diagnosis Age At Onset Diabetes Unknown Mother Diagnosis Age At Onset Diabetes Unknown Hypertension Unknown Alzheimer's Disease Unknown Stroke Unknown Father Diagnosis Age At Onset No Family Disease Entered N/A Grandmother Diagnosis Age At Onset Alzheimer's Disease Unknown Social History Social History Element Codes Description Effective Dates Number of children Unknown 4 1 in [place], 1 in [place], 2 in [place] 2011 Employment Unknown 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/[address]: 7141649 Former smoker Quit in 1953 - 1 [...] Fill Instructions glipizide 10 mg tablet RxNorm: 414964 1 Tablet(s) PO BID 201711/03/2018 Active metformin ER 500 mg tablet,extended release 24 hr RxNorm: 381864 Tablet(s) TAKE ONE TABLET BY MOUTH TWICE DAILY 05/13/2017 05/07/2018 Active Basaglar KwikPen 100 unit/mL (3 mL) subcutaneous RxNorm: 7403440 24 Unit(s) SQ daily 05/13/2017 05/07/2018 Active lisinopril 20 mg tablet RxNorm: 547304 Tablet(s) TAKE 1 TABLET BY MOUTH TWICE DAILY 05/13/2017 05/07/2018 Active finasteride 5 mg tablet RxNorm: 626049 1 Tablet(s) PO daily 11/08/2017 Active [SAVINGS FOR UNINSURED PATIENTS -- BIN:[id number], PCN: ASPROD1, Group: [id number], ID# [id number], Process claim through Pixalate, for questions: . THIS IS NOT INSURANCE.] levothyroxine 175 mcg tablet RxNorm: 055238 1 Tablet(s) PO daily 05/13/2017 11/08/2017 Active Sinemet 25 mg-100 mg tablet RxNorm: 223487 Tablet(s) TAKE ONE TABLET BY MOUTH TWICE DAILY IN THE MORNING AND AT SUPPER 05/13/2017 05/07/2018 Active Lasix 20 mg tablet RxNorm: 417794 Tablet(s) TAKE 1 TABLET BY MOUTH ONCE DAILY FOR 1 WEEK AND THEN TAKE 1 TABLET BY MOUTH EVERY 3 DAYS THEREAFTER 05/13/2017 07/27/2017 Active Basaglar KwikPen 100 unit/mL (3 mL) subcutaneous RxNorm: 2986204 24 Unit(s) SQ daily 05/07/2017 05/12/2017 Inactive Lasix 20 mg tablet RxNorm: 057408 2 Tablet(s) PO daily x 3 days, then 1 pill three times a week thereafter 04/28/2017 No Stop Date Active triamcinolone acetonide 0.025 % topical cream RxNorm: 8121014 1 Application TOP BID 04/28/2017 No Stop Date Active clotrimazole 1 % topical cream RxNorm: 780123 1 Application TOP BID 04/28/2017 No Stop Date Active potassium chloride ER 10 mEq tablet,extended release(part/ cryst) RxNorm: 2337777 2 Tablet(s) PO daily x 3 days, then 1 pill three times a week when taking the lasix 04/28/2017 08/25/2017 Active Lasix 20 mg tablet RxNorm: 789504 Tablet(s) TAKE 1 TABLET BY MOUTH ONCE DAILY FOR 1 WEEK AND THEN TAKE 1 TABLET BY MOUTH EVERY 3 DAYS THEREAFTER 04/22/2017 05/12/2017 Inactive Lantus Solostar 100 unit/mL (3 mL) subcutaneous insulin pen RxNorm: 569672 24 Unit(s) SQ daily INJECT 24 UNITS DAILY OR DIRECTED 201605/06/2017 Inactive 1 box of 5 pens Basaglar KwikPen 100 unit/mL (3 mL) subcutaneous RxNorm: 1770809 24 Unit(s) SQ daily 03/02/2017 05/06/2017 Inactive Basaglar KwikPen 100 unit/mL (3 mL) subcutaneous RxNorm: 4863462 24 Unit(s) SQ daily 03/02/2017 03/01/2017 Inactive levothyroxine 175 mcg tablet RxNorm: 145970 1 Tablet(s) PO daily 02/02/2017 05/12/2017 Inactive Sinemet 25 mg-100 mg tablet RxNorm: 079296 TAKE ONE TABLET BY MOUTH TWICE DAILY IN THE MORNING AND AT SUPPER 12/30/2016 Inactive metformin ER 500 mg tablet,extended release 24 hr RxNorm: 824388 Tablet(s) TAKE ONE TABLET BY MOUTH TWICE DAILY 11/10/2016 05/12/2017 Inactive lisinopril 20 mg tablet RxNorm: 198631 Tablet(s) TAKE 1 TABLET BY MOUTH TWICE DAILY 11/10/2016 05/12/2017 Inactive levothyroxine 150 mcg tablet RxNorm: 379493 1 Tablet(s) PO daily 11/05/2016 02/01/2017 Inactive PLEASE LET PATIENT KNOW WE ARE GIVING HIM 150MCG INSTEAD OF 100MCG SO HE JUST TAKES 1 TAB DAILY. THANKS! Lantus Solostar 100 unit/mL (3 mL) subcutaneous insulin pen RxNorm: 579054 24 Unit(s) SQ daily INJECT 24 UNITS DAILY OR DIRECTED 201603/01/2017 Inactive 1 box of 5 pens Lantus Solostar 100 unit/mL (3 mL) subcutaneous insulin pen RxNorm: 678826 24 Unit(s) SQ daily INJECT 24 UNITS DAILY OR DIRECTED 201610/06/2016 Inactive please call patient with the [facility] levothyroxine 100 mcg tablet RxNorm: 095173 1.5 Tablet(s) PO daily 10/05/2016 11/04/2016 Inactive metformin ER 500 mg tablet,extended release 24 hr RxNorm: 198776 Tablet(s) TAKE ONE TABLET BY MOUTH TWICE DAILY 09/29/2016 11/09/2016 Inactive prednisone 20 mg tablet RxNorm: 016330 1 Tablet(s) PO BID 08/0608/10/2016 Inactive Kenalog 40 mg/mL suspension for injection RxNorm: 9442843 1 Milliliter(s) Inj 07/30/2016 07/30/2016 Inactive doxycycline hyclate 100 mg tablet RxNorm: 569935 1 Tablet(s) PO BID 07/30/2016 08/05/2016 Inactive glipizide 10 mg tablet RxNorm: 129814 1 Tablet(s) PO BID 201605/12/2017 Inactive Sinemet 25 mg-100 mg tablet RxNorm: 530908 TABLET(S) TAKE 1 TABLET BY MOUTH TWICE A DAY IN THE MORNING AND AT SUPPER 05/11/2016 11/06/2016 Inactive Patient requests 90 days supply metformin ER 500 mg tablet,extended release 24 hr RxNorm: 648426 TAKE ONE TABLET BY MOUTH TWICE DAILY 05/04/20162016 Inactive lisinopril 20 mg tablet RxNorm: 633005 TAKE 1 TABLET BY MOUTH TWICE DAILY 04/14/2016 11/09/2016 Inactive Sinemet 25 mg-100 mg tablet RxNorm: 948356 1 Tablet(s) PO BID TAKE 1 TABLET BY MOUTH TWICE A DAY IN THE MORNING AND AT SUPPER 03/23/2016 09/18/2016 Inactive Lasix 20 mg tablet RxNorm: 625729 Tablet(s) TAKE 1 TABLET BY MOUTH ONCE DAILY FOR 1 WEEK AND THEN TAKE 1 TABLET BY MOUTH EVERY 3 DAYS THEREAFTER 03/23/2016 06/06/2016 Inactive hydrocodone 5 mg-acetaminophen 325 mg tablet RxNorm: 405616 1-2 Tablet(s) PO Q6- 8H 01/21/2016 No Stop Date Active Lantus Solostar 100 unit/mL (3 mL) subcutaneous insulin pen RxNorm: 696256 24 Unit(s) SQ daily INJECT 24 UNITS DAILY OR DIRECTED 201510/05/2016 Inactive please call patient with the [facility] Kenalog 40 mg/mL suspension for injection RxNorm: 2338630 1 Milliliter(s) Inj 01/20/2016 01/20/2016 Inactive Sinemet 25 mg-100 mg tablet RxNorm: 535104 Tablet(s) TAKE 1 TABLET BY MOUTH TWICE A DAY IN THE MORNING AND AT SUPPER 11/29/2015 03/22/2016 Inactive Lantus Solostar 100 unit/mL (3 mL) subcutaneous insulin pen RxNorm: 313767 20 Unit(s) SQ daily INJECT 20 UNITS DAILY OR DIRECTED 201501/20/2016 Inactive please call patient with the [facility] Sinemet 25 mg-100 mg tablet RxNorm: 285463 Tablet(s) TAKE 1 TABLET BY MOUTH TWICE A DAY IN THE MORNING AND AT SUPPER 11/22/2015 11/28/2015 Inactive Lantus Solostar 100 unit/mL (3 mL) subcutaneous insulin pen RxNorm: 474017 Unit( s) INJECT 20 UNITS DAILY OR DIRECTED 11/22/2015 11/24/2015 Inactive Lantus Solostar 100 unit/mL (3 mL) subcutaneous insulin pen RxNorm: 396149 INJECT 20 UNITS DAILY OR DIRECTED 09/27/2015 11/21/2015 Inactive Lasix 20 mg tablet RxNorm: 504183 TAKE 1 TABLET BY MOUTH ONCE DAILY FOR 1 WEEK AND THEN TAKE 1 TABLET BY MOUTH EVERY 3 DAYS THEREAFTER 09/2512/10/2015 Inactive Lasix 20 mg tablet RxNorm: 549853 1 Tablet(s) PO daily 201509/25/2015 Inactive glipizide 10 mg tablet RxNorm: 593795 1 Tablet(s) BID TAKE 1 TABLET BY MOUTH DAILY. 06/25/2015 06/28/2016 Inactive metformin ER 500 mg tablet,extended release 24 hr RxNorm: 793584 1 Tablet(s) PO BID 04/01/2015 05/05/2016 Inactive lisinopril 20 mg tablet RxNorm: 789885 Tablet(s) TAKE 1 TABLET BY MOUTH TWICE DAILY. 03/25/2015 07/22/2015 Inactive metformin ER 500 mg tablet,extended release 24 hr RxNorm: 374149 1 Tablet(s) PO BID 03/25/2015 03/31/2015 Inactive doxycycline hyclate 100 mg capsule RxNorm: 9943699 1 Capsule(s) PO BID 03/19/2015 04/01/2015 Inactive Sinemet 25 mg-100 mg tablet RxNorm: 587854 TAKE 1 TABLET BY MOUTH TWICE A DAY IN THE MORNING AND AT SUPPER 03/05/201511/20 Inactive doxycycline hyclate 100 mg capsule RxNorm: 0489108 1 Capsule(s) PO BID 02/20/2015 02/26/2015 Inactive metolazone 5 mg tablet RxNorm: 139676 1 Tablet(s) PO daily 07/201403/21/2015 Inactive spironolactone 50 mg tablet RxNorm: 990726 1 Tablet(s) PO daily 02/11/2015 01/02/2016 Inactive Efudex 5 % topical cream RxNorm: 653664 1 TOP BID 01/28/2015 02/10/2015 Inactive potassium chloride ER 10 mEq tablet,extended release(part/ cryst) RxNorm: 3261459 1 Tablet(s) PO daily x 1week then three times weekly with the lasix. 01/28/2015 05/27/2015 Inactive Lasix 20 mg tablet RxNorm: 232795 1 Tablet(s) PO daily x 1 week, then every three days thereafter 01/28/20152015 Inactive lisinopril 20 mg tablet RxNorm: 002109 Tablet(s) TAKE 1 TABLET BY MOUTH TWICE DAILY. 11/23/2014 03/22/2015 Inactive lisinopril 20 mg tablet RxNorm: 991682 TAKE 1 TABLET BY MOUTH TWICE DAILY. 11/22/2014 11/22/2014 Inactive Sinemet 25 mg-100 mg tablet RxNorm: 467516 1 Tablet(s) PO BID TAKE 1 TABLET BY MOUTH TWICE A DAY IN THE MORNING AND AT SUPPER 10/01/2014 03/04/2015 Inactive [ SAVINGS FOR UNINSURED PATIENTS -- BIN:598323, PCN: ASPPAULO1, Group: [id number], ID# [id number], Process claim through Pix[employer], for questions: . THIS IS NOT INSURANCE.] glipizide 10 mg tablet RxNorm: 321266 1 Tablet(s) BID TAKE 1 TABLET BY MOUTH DAILY. 10/01/2014 06/24/2015 Inactive glipizide 10 mg tablet RxNorm: 369114 Tablet(s) daily TAKE 1 TABLET BY MOUTH DAILY. 08/06/2014 09/30/2014 Inactive Lantus Solostar 100 unit/mL (3 mL) subcutaneous insulin pen RxNorm: 703790 20 Unit(s) SQ daily 07/11/2014 09/26/2015 Inactive [SAVINGS FOR UNINSURED PATIENTS -- BIN:631243, PCN: ASPROD1, Group: [id number], ID# [id number], Process claim through [employer], for questions: . THIS IS NOT INSURANCE.] metformin ER 500 mg tablet,extended release 24 hr RxNorm: 549640 1 Tablet(s) PO BID 07/10/2014 03/24/2015 Inactive lisinopril 20 mg tablet RxNorm: 617644 Tablet(s) TAKE 1 TABLET BY MOUTH TWICE DAILY. 07/10/2014 11/21/2014 Inactive Lantus Solostar 100 unit/mL (3 mL) subcutaneous insulin pen RxNorm: 678305 20 Unit(s) SQ daily 05/30/2014 07/10/2014 Inactive [SAVINGS FOR UNINSURED PATIENTS -- BIN:237985, PCN: ASPROD1, Group: [id number], ID# [id number], Process claim through MedImpact, for questions: . THIS IS NOT INSURANCE.] Sinemet 25 mg-100 mg tablet RxNorm: 264133 Tablet(s) TAKE 1 TABLET BY MOUTH TWICE A DAY IN THE MORNING AND AT SUPPER 05/30/2014 09/30/2014 Inactive [SAVINGS FOR UNINSURED PATIENTS -- BIN:399206, PCN: ASPROD1, Group: [id number], ID# [id number], Process claim through MedImp[employer], for questions: . THIS IS NOT INSURANCE.] lisinopril 20 mg tablet RxNorm: 090518 TAKE 1 TABLET BY MOUTH TWICE DAILY. 04/09/2014 04/08/2014 Inactive glipizide 10 mg tablet RxNorm: 597655 TAKE 1 TABLET BY MOUTH TWICE DAILY. 04/09/2014 08/05/2014 Inactive glipizide 10 mg tablet RxNorm: 826396 TAKE 1 TABLET BY MOUTH TWICE DAILY. 04/09/2014 04/08/2014 Inactive lisinopril 20 mg tablet RxNorm: 611420 TAKE 1 TABLET BY MOUTH TWICE DAILY. 04/09/2014 07/09/2014 Inactive lisinopril 20 mg tablet RxNorm: 001960 Tablet(s) TAKE ONE TABLET BY MOUTH TWICE DAILY 04/06/2014 04/08/2014 Inactive [SAVINGS FOR UNINSURED PATIENTS -- BIN:736967 , PCN: ASPROD1, Group: [id number], ID# [id number], Process claim through MedImpact, for questions: . THIS IS NOT INSURANCE.] glipizide 10 mg tablet RxNorm: 435630 1 Tablet(s) PO BID 201304/08/2014 Inactive [SAVINGS FOR UNINSURED PATIENTS -- BIN:940839, PCN: ASPROD1, Group: [id number], ID # [id number], Process claim through Pix[employer], for questions: . THIS IS NOT INSURANCE.] pravastatin 10 mg tablet RxNorm: 114393 TAKE ONE TABLET BY MOUTH EVERY DAY 02/26/2014 05/26/2014 Inactive Sinemet 25 mg-100 mg tablet RxNorm: 664071 TAKE 1 TABLET BY MOUTH TWICE A DAY IN THE MORNING AND AT SUPPER 01/26/201401/25 Inactive Sinemet 25 mg-100 mg tablet RxNorm: 812774 Tablet(s) TAKE 1 TABLET BY MOUTH TWICE A DAY IN THE MORNING AND AT SUPPER 01/26/2014 05/29/2014 Inactive [SAVINGS FOR UNINSURED PATIENTS -- BIN:293364, PCN: ASPROD1, Group: [id number], ID# [id number], Process claim through Pix[employer], for questions: . THIS IS NOT INSURANCE.] Sinemet 25 mg-100 mg tablet RxNorm: 463461 TAKE 1 TABLET BY MOUTH TWICE A DAY IN THE MORNING AND AT SUPPER 01/26/201401/25 Inactive Sinemet 25 mg-100 mg tablet RxNorm: 714732 TAKE 1 TABLET BY MOUTH TWICE A DAY IN THE MORNING AND AT SUPPER 01/26/201401/25 Inactive pantoprazole 40 mg tablet,delayed release RxNorm: 602386 TAKE 1 TABLET DAILY 01/25/2014 10/07/2016 Inactive finasteride 5 mg tablet RxNorm: 686601 1 Tablet(s) PO daily 12/201309/30/2014 Inactive [SAVINGS FOR UNINSURED PATIENTS -- BIN:575727, PCN: ASPROD1, Group: [id number] , ID# [id number], Process claim through Pix[employer]ate, for questions: . THIS IS NOT INSURANCE.] sucralfate 100 mg/mL oral suspension RxNorm: 624847 10 Milliliter(s) PO QID 01/23/2014 09/30/2014 Inactive dispense qs x 1 month lisinopril 20 mg tablet RxNorm: 533596 TAKE ONE TABLET BY MOUTH TWICE DAILY 12/27/2013 03/26/2014 Inactive pantoprazole 40 mg tablet,delayed release RxNorm: 788489 1 Tablet(s) PO daily 12/26/2013 12/25/2013 Inactive [SAVINGS FOR UNINSURED PATIENTS -- BIN:381214, PCN: ASPROD1, Group: [id number], ID# [id number], Process claim through MedImpact, for questions: . THIS IS NOT INSURANCE.] pantoprazole 40 mg tablet,delayed release RxNorm: 955402 1 Tablet(s) PO daily 12/26/2013 12/20/2014 Inactive [SAVINGS FOR UNINSURED PATIENTS -- BIN:529492, PCN: ASPROD1, Group: [id number], ID# [id number], Process claim through MedImpact, for questions: . THIS IS NOT INSURANCE.] gemfibrozil 600 mg tablet RxNorm: 508527 1 Tablet(s) PO BID 11/201310/23/2013 Inactive gemfibrozil 600 mg tablet RxNorm: 851960 1 Tablet(s) PO BID 11/201309/30/2014 Inactive [SAVINGS FOR UNINSURED PATIENTS -- BIN:666171, PCN: ASPROD1, Group: [id number] , ID# [id number], Process claim through MedImpact, for questions: . THIS IS NOT INSURANCE.] finasteride 5 mg tablet RxNorm: 447045 1 Tablet(s) PO daily 04/201301/24/2014 Inactive [SAVINGS FOR UNINSURED PATIENTS -- BIN:878432, PCN: ASPROD1, Group: [id number] , ID# [id number], Process claim through MedImpact, for questions: . THIS IS NOT INSURANCE.] Lantus Solostar 100 unit/mL (3 mL) subcutaneous insulin pen RxNorm: 204680 20 Unit(s) SQ daily 10/09/2013 05/29/2014 Inactive [SAVINGS FOR UNINSURED PATIENTS -- BIN:702593, PCN: ASPROD1, Group: [id number], ID# [id number], Process claim through MedImpact, for questions: . THIS IS NOT INSURANCE.] glipizide 10 mg tablet RxNorm: 695597 1 Tablet(s) PO daily 04/05/2014 Inactive [SAVINGS FOR UNINSURED PATIENTS -- BIN:005474, PCN: ASPROD1, Group: [id number] , ID# [id number], Process claim through Pixalate, for questions: . THIS IS NOT INSURANCE.] Lantus Solostar 100 unit/mL (3 mL) subcutaneous insulin pen RxNorm: 892519 20 Unit(s) SQ daily 07/18/2013 10/08/2013 Inactive Sinemet 25 mg-100 mg tablet RxNorm: 456616 1 Tablet(s) PO BID one pill in morning , one at supper 07/10/2013 01/25/2014 Inactive Sinemet 25 mg-100 mg tablet RxNorm: 910465 1 Tablet(s) PO BID one pill in morning , one at supper 04/24/2013 07/09/2013 Inactive metformin ER 500 mg tablet,extended release 24 hr RxNorm: 544288 1 Tablet(s) PO BID 04/24/2013 04/18/2014 Inactive glipizide 10 mg tablet RxNorm: 806994 1 Tablet(s) PO daily 09/201310/08/2013 Inactive lisinopril 20 mg tablet RxNorm: 680435 1 Tablet(s) PO BID 04/2410/20/2013 Inactive pravastatin 10 mg tablet RxNorm: 249233 1 Tablet(s) PO daily 10/20/2013 Inactive Lantus Solostar 100 unit/mL (3 mL) subcutaneous insulin pen RxNorm: 927935 20 Unit(s) SQ daily 04/24/2013 07/17/2013 Inactive glipizide 10 mg tablet RxNorm: 846515 1 Tablet(s) PO daily 05/201304/23/2013 Inactive glipizide 10 mg tablet RxNorm: 853102 1 Tablet(s) PO daily 05/201204/19/2013 Inactive Lantus Solostar 100 unit/mL (3 mL) subcutaneous insulin pen RxNorm: 347839 16 Unit(s) SQ daily 03/20/2013 04/23/2013 Inactive Sinemet 25 mg-100 mg tablet RxNorm: 418538 1 Tablet(s) PO BID one pill in morning , one at supper 01/20/2013 04/23/2013 Inactive Lantus Solostar 100 unit/mL (3 mL) subcutaneous insulin pen RxNorm: 291309 16 Unit(s) SQ daily 01/19/2013 01/25/2013 Inactive Sinemet 25 mg-100 mg tablet RxNorm: 491668 1 Tablet(s) PO BID one pill in morning , one at supper 01/19/2013 01/19/2013 Inactive glipizide 10 mg tablet RxNorm: 822771 1 Tablet(s) PO BID 201203/19/2013 Inactive Lantus Solostar 100 unit/mL (3 mL) Sub-Q Insulin Pen RxNorm: 908541 12 Unit(s) SQ daily 12/21/2012 01/18/2013 Inactive lisinopril 20 mg tablet RxNorm: 886148 1 Tablet(s) PO BID 12/0804/23/2013 Inactive metformin ER 500 mg tablet,extended release 24 hr RxNorm: 700624 1 Tablet(s) PO BID 11/30/2012 04/23/2013 Inactive Lantus Solostar 100 unit/mL (3 mL) Sub-Q Insulin Pen RxNorm: 730314 5 Unit(s) SQ daily 11/30/2012 12/07/2012 Inactive FINASTERIDE TAB 5MG RxNorm: 10/03/2012 Inactive lisinopril 20 mg tablet RxNorm: 126187 1 Tablet(s) PO BID 09/0812/06/2012 Inactive glipizide 10 mg tablet RxNorm: 779425 1 Tablet(s) PO BID 201212/30/2012 Inactive metronidazole 500 mg tablet RxNorm: 966226 1 Tablet(s) PO TID 05/30/2012 06/08/2012 Inactive metformin ER 500 mg tablet,extended release 24 hr RxNorm: 953626 2 Tablet(s) PO daily 04/22/2012 11/29/2012 Inactive metformin ER 500 mg tablet,extended release 24 hr RxNorm: 671913 2 Tablet(s) PO daily 04/21/2012 04/21/2012 Inactive ketoconazole 2 % Topical Cream RxNorm: 469047 1 Application TOP BID 04/14/2012 05/04/2012 Inactive ketoconazole 2 % Shampoo RxNorm: 428594 1 Application TOP every other day apply to feet, leave on for 5 minutes, then rinse. 04/14/2012 04/27/2012 Inactive clotrimazole 1 % Topical Cream RxNorm: 016729 1 Application TOP BID 02/22/2012 04/03/2012 Inactive glipizide 10 mg tablet RxNorm: 368031 1 Tablet(s) PO BID 201106/18/2012 Inactive lisinopril 20 mg tablet RxNorm: 224785 1 Tablet(s) PO BID 09/0108/26/2012 Inactive metformin ER 500 mg tablet,extended release 24 hr RxNorm: 062037 2 Tablet(s) PO daily 08/10/2011 04/20/2012 Inactive metformin ER 1,000 mg 24 hr Tab Ctrl Rel RxNorm: 065753 1 Tablet(s) PO daily 07/28/2011 08/09/2011 Inactive Kombiglyze XR 5 mg-1,000 mg 24 hr Tab RxNorm: 1167008 1 Tablet(s) PO daily 07/28/2011 07/27/2011 Inactive Kombiglyze XR 5 mg-1,000 mg 24 hr Tab RxNorm: 3796865 1 Tablet(s) PO daily 07/28/2011 07/28/2011 Inactive glipizide 10 mg tablet RxNorm: 399595 1 Tablet(s) PO BID 201107/27/2011 Inactive glipizide 10 mg Tab RxNorm: 518892 1 Tablet(s) PO BID 201106/16/2011 Inactive glipizide 10 mg Tab RxNorm: 084327 1 Tablet(s) PO BID 201006/15/2011 Inactive glipizide 10 mg Tab RxNorm: 411430 1 Tablet(s) PO BID 201004/01/2011 Inactive glipizide 10 mg Tab RxNorm: 479138 Tablet(s) PO BID 201003/31/2011 Inactive Calcium + Vitamin D 600 mg calcium-200 unit tablet RxNorm: 525351 1 Tablet(s) PO BID No Start Date Active pantoprazole 40 mg tablet,delayed release RxNorm: 670151 1 Tablet(s) PO daily No Start Date 12/25/2013 Inactive Sinemet 25 mg-100 mg tablet RxNorm: 039297 1/2 Tablet(s) PO BID one pill in morning, one at supper No Start Date 01/18 Inactive levothyroxine 100 mcg tablet RxNorm: 823630 1 Tablet(s) PO daily No Start Date 10/04/2016 Inactive lisinopril 20 mg Tab RxNorm: 898720 1 Tablet(s) PO BID No Start Date 09/01/2011 Inactive hydrocodone 5 mg-acetaminophen 325 mg tablet RxNorm: 988233 1-2 Tablet(s) PO Q6- 8H No Start Date 01/20/2016 Inactive pravastatin 10 mg tablet RxNorm: 073973 1 Tablet(s) PO daily No Start Date 04/23/2013 Inactive Medication Administered Medication Codes Instructions Start Date Status Kenalog 40 mg/mL suspension for injection RxNorm: 6345250 1Milliliter 07/30/2016 No longer Active Kenalog 40 mg/mL suspension for injection RxNorm: 8103608 1Milliliter 01/20/2016 No longer Active Immunizations Vaccine [...] For Visit Effective Dates Notes rash 05/13/2017 hypothyroid 02/04/2017 Annual Medicare Wellness Exam 10/12/2016 [...] Code Item Item Code Result Date %Hba1C Urz578 % HbA1c 64543-9 7.0 % 05/13/2017 %Hba1C Gqn043 Gluc Ave 154 mg/dL 05/13/2017 Free T4 Bsj358 FREE T4 1.29 ng/dL 05/13/2017 Tsh Ord6 TSH (3rd IS) 4.14 uIU/mL 05/13/2017 Tsh Ord6 hTSH II 9.43 uIU/mL 02/02/2017 Comp Metabolic Cqk171 NA 134 mEq/L 02/02/2017 Comp Metabolic Ypy034 K 4.4 mEq/L 02/02/2017 Comp Metabolic Eak411 CL 99 mEq/L 02/02/2017 Comp Metabolic Bbs323 CO2 26.0 mEq/L 02/02/2017 Comp Metabolic Ziy815 ANION GAP 13 02/02/2017 Comp Metabolic Knt986 GLUCOSE 256 mg/dL 02/02/2017 Comp Metabolic Ugq737 Creat 1.6 mg/dL 02/02/2017 Comp Metabolic Huu093 eGFR 45 ml/min/1.73m2 02/02/2017 Comp Metabolic Sqa002 BUN 26 mg/dL 02/02/2017 Comp Metabolic Hfk204 B/C Ratio 16.6 Ratio 02/02/2017 Comp Metabolic Yer623 CALCIUM 8.7 mg/dL 02/02/2017 Comp Metabolic Xqo802 ALK PHOS 63 U/L 02/02/2017 Comp Metabolic Azh894 AST(SGOT) 11 U/L 02/02/2017 Comp Metabolic Joy660 ALT(SGPT) 9 U/L 02/02/2017 Comp Metabolic Gji209 BILI T 0.5 mg/dL 02/02/2017 Comp Metabolic Shw760 ALBUMIN 3.7 g/dL 02/02/2017 Comp Metabolic Nrz892 TPRO 6.1 g/dL 02/02/2017 Comp Metabolic Shd732 GLOB 2.4 g/dL 02/02/2017 Comp Metabolic Fiu091 A/G Ratio 1.6 Ratio 02/02/2017 Comp Metabolic Ith398 Osmo 282 mOsmo 02/02/2017 %Hba1C Tzk781 % HbA1c 32962-1 7.5 % 02/02/2017 %Hba1C Xtd389 Gluc Ave 169 mg/dL 02/02/2017 Free T4 Jje491 FREE T4 1.23 ng/dL 02/02/2017 Cbc With [...] 93.0 fl 02/02/2017 Cbc With Differential Ord2 [place]% 9.6 % 02/02/2017 Cbc With Differential Ord2 [...] 2.61 K/ul 02/02/2017 Cbc With Differential Ord2 [place] ABS# 0.8 K/ul 02/02/2017 Cbc With Differential Ord2 Eos ABS# 0.2 K/ul 02/02/2017 Cbc With Differential Ord2 Baso ABS# 0.1 K/ul 02/02/2017 Total T3 Ord42 TT3 0.59 ng/ml 07/14/2016 Free T4 Ngn254 FREE T4 1.14 ng/dL 07/14/2016 Cbc With [...] 34.9 % 06/22/2016 Cbc With Differential Ord2 [place]% 9.9 % 06/22/2016 Cbc With Differential Ord2 [...] 2.41 K/ul 06/22/2016 Cbc With Differential Ord2 [place] ABS# 0.7 K/ul 06/22/2016 Cbc With Differential Ord2 Eos ABS# 0.2 K/ul 06/22/2016 Cbc With Differential Ord2 Baso ABS# 0.0 K/ul 06/22/2016 Comp Metabolic Uln703 NA 134 mEq/L 06/22/2016 Comp Metabolic Sku670 K 4.3 mEq/L 06/22/2016 Comp Metabolic Vpo487 CL 100 mEq/L 06/22/2016 Comp Metabolic Dip864 CO2 26.0 mEq/L 06/22/2016 Comp Metabolic Zmm927 ANION GAP 12 06/22/2016 Comp Metabolic Ysu690 GLUCOSE 222 mg/dL 06/22/2016 Comp Metabolic Aua773 Creat 1.5 mg/dL 06/22/2016 Comp Metabolic Xtx987 eGFR 49 ml/min/1.73m2 06/22/2016 Comp Metabolic Cck701 BUN 23 mg/dL 06/22/2016 Comp Metabolic Pjj505 B/C Ratio 15.9 Ratio 06/22/2016 Comp Metabolic Lpz773 CALCIUM 9.0 mg/dL 06/22/2016 Comp Metabolic Tiw435 ALK PHOS 59 U/L 06/22/2016 Comp Metabolic Ame507 AST(SGOT) 13 U/L 06/22/2016 Comp Metabolic Qny781 ALT(SGPT) 11 U/L 06/22/2016 Comp Metabolic Hwi914 BILI T 0.5 mg/dL 06/22/2016 Comp Metabolic Kwq858 ALBUMIN 3.8 g/dL 06/22/2016 Comp Metabolic Nec292 TPRO 6.2 g/dL 06/22/2016 Comp Metabolic Oau721 GLOB 2.4 g/dL 06/22/2016 Comp Metabolic Eaw881 A/G Ratio 1.6 Ratio 06/22/2016 Comp Metabolic Iej813 Osmo 279 mOsmo 06/22/2016 Tsh Ord6 hTSH II 0.44 uIU/mL 06/22/2016 Comp Metabolic Hek212 NA 134 mEq/L 04/27/2016 Comp Metabolic Lid249 K 4.6 mEq/L 04/27/2016 Comp Metabolic Eqa515 CL 99 mEq/L 04/27/2016 Comp Metabolic Nbz034 CO2 27.0 mEq/L 04/27/2016 Comp Metabolic Hom580 ANION GAP 13 04/27/2016 Comp Metabolic Lyd251 GLUCOSE 178 mg/dL 04/27/2016 Comp Metabolic Nhd637 Creat 1.4 mg/dL 04/27/2016 Comp Metabolic Owo922 eGFR 53 ml/min/1.73m2 04/27/2016 Comp Metabolic Gvp019 BUN 24 mg/dL 04/27/2016 Comp Metabolic Ybn684 B/C Ratio 17.5 Ratio 04/27/2016 Comp Metabolic Tnu105 CALCIUM 9.1 mg/dL 04/27/2016 Comp Metabolic Bkq577 ALK PHOS 72 U/L 04/27/2016 Comp Metabolic Req321 AST(SGOT) 16 U/L 04/27/2016 Comp Metabolic Uvx125 ALT(SGPT) 12 U/L 04/27/2016 Comp Metabolic Vdk191 BILI T 0.6 mg/dL 04/27/2016 Comp Metabolic Hja511 ALBUMIN 4.1 g/dL 04/27/2016 Comp Metabolic Vvb034 TPRO 6.8 g/dL 04/27/2016 Comp Metabolic Zig324 GLOB 2.7 g/dL 04/27/2016 Comp Metabolic Uio843 A/G Ratio 1.6 Ratio 04/27/2016 Comp Metabolic Jxp336 Osmo 277 mOsmo 04/27/2016 Cbc With Differential [...] 33.1 % 04/27/2016 Cbc With Differential Ord2 [place]% 9.7 % 04/27/2016 Cbc With Differential Ord2 [...] 2.89 K/ul 04/27/2016 Cbc With Differential Ord2 [place] ABS# 0.9 K/ul 04/27/2016 Cbc With Differential Ord2 Eos ABS# 0.2 K/ul 04/27/2016 Cbc With Differential Ord2 Baso ABS# 0.0 K/ul 04/27/2016 %Hba1C Nxy526 % HbA1c 35213-0 7.2 % 04/27/2016 %Hba1C Dis372 Gluc Ave 160 mg/dL 04/27/2016 Cbc With [...] 31.0 pg 01/21/2016 Cbc With Differential Ord2 [place]% 8.9 % 01/21/2016 Cbc With Differential Ord2 [...] 1.91 K/ul 01/21/2016 Cbc With Differential Ord2 [place] ABS# 0.6 K/ul 01/21/2016 Cbc With Differential Ord2 Eos ABS# 0.2 K/ul 01/21/2016 Cbc With Differential Ord2 Baso ABS# 0.0 K/ul 01/21/2016 Comp Metabolic Jgq587 NA 134 mEq/L 01/21/2016 Comp Metabolic Qid689 K 5.0 mEq/L 01/21/2016 Comp Metabolic Cib857 CL 99 mEq/L 01/21/2016 Comp Metabolic Vdh257 CO2 26.0 mEq/L 01/21/2016 Comp Metabolic Jzi569 ANION GAP 14 01/21/2016 Comp Metabolic Phl732 GLUCOSE 260 mg/dL 01/21/2016 Comp Metabolic Kmn411 Creat 1.5 mg/dL 01/21/2016 Comp Metabolic Gaj851 eGFR 50 ml/min/1.73m2 01/21/2016 Comp Metabolic Jbo515 BUN 18 mg/dL 01/21/2016 Comp Metabolic Mey612 B/C Ratio 12.4 Ratio 01/21/2016 Comp Metabolic Ocm391 CALCIUM 8.8 mg/dL 01/21/2016 Comp Metabolic Knd145 ALK PHOS 68 U/L 01/21/2016 Comp Metabolic Nte890 AST(SGOT) 16 U/L 01/21/2016 Comp Metabolic Vwd395 ALT(SGPT) 16 U/L 01/21/2016 Comp Metabolic Ikj779 BILI T 0.5 mg/dL 01/21/2016 Comp Metabolic Cpi328 ALBUMIN 3.8 g/dL 01/21/2016 Comp Metabolic Nba395 TPRO 6.3 g/dL 01/21/2016 Comp Metabolic Kue864 GLOB 2.5 g/dL 01/21/2016 Comp Metabolic Chr456 A/G Ratio 1.5 Ratio 01/21/2016 Comp Metabolic Ynd635 Osmo 279 mOsmo 01/21/2016 %Hba1C Fvb432 % HbA1c 73384-0 7.4 % 01/21/2016 %Hba1C Wug260 Gluc Ave 166 mg/dL 01/21/2016 Metabolic Ord15 [...] Qnt Crqnt CRP 1.5 mg/dl 09/17/2015 %Hba1C Nlj159 % HbA1c 31808-7 7.1 % 09/17/2015 %Hba1C Lwy534 Gluc Ave 157 mg/dL 09/17/2015 Cbc With [...] 31.7 pg 08/06/2015 Cbc With Differential Ord2 [place]% 9.6 % 08/06/2015 Cbc With Differential Ord2 [...] 2.90 K/ul 08/06/2015 Cbc With Differential Ord2 [place] ABS# 0.7 K/ul 08/06/2015 Cbc With Differential Ord2 Eos ABS# 0.2 K/ul 08/06/2015 Cbc With Differential Ord2 Baso ABS# 0.0 K/ul 08/06/2015 Cbc With Differential Ord2 New Analyzer Notice Please note new ref ranges starting 05-01-2015 due to implemntation of new five part differential hematolgy analyzer. 08/06/2015 Comp Metabolic Ahw819 NA 132 mEq/L 08/06/2015 Comp Metabolic Iiu416 K 4.6 mEq/L 08/06/2015 Comp Metabolic Diw870 CL 98 mEq/L 08/06/2015 Comp Metabolic Idy046 CO2 25.0 mEq/L 08/06/2015 Comp Metabolic Heo067 ANION GAP 14 08/06/2015 Comp Metabolic Nyz542 GLUCOSE 170 mg/dL 08/06/2015 Comp Metabolic Edw961 Creat 1.5 mg/dL 08/06/2015 Comp Metabolic His291 eGFR 46 ml/min/1.73m2 08/06/2015 Comp Metabolic Npe028 BUN 21 mg/dL 08/06/2015 Comp Metabolic Gry422 B/C Ratio 13.6 Ratio 08/06/2015 Comp Metabolic Tra309 CALCIUM 8.9 mg/dL 08/06/2015 Comp Metabolic Mdi714 ALK PHOS 60 U/L 08/06/2015 Comp Metabolic Sfj286 AST(SGOT) 16 U/L 08/06/2015 Comp Metabolic Snj174 ALT(SGPT) 18 U/L 08/06/2015 Comp Metabolic Wmx680 BILI T 0.4 mg/dL 08/06/2015 Comp Metabolic Opv331 ALBUMIN 3.8 g/dL 08/06/2015 Comp Metabolic Sko363 TPRO 6.3 g/dL 08/06/2015 Comp Metabolic Cxg579 GLOB 2.5 g/dL 08/06/2015 Comp Metabolic Aqo899 A/G Ratio 1.6 Ratio 08/06/2015 Comp Metabolic Oip930 Osmo 271 mOsmo 08/06/2015 Tsh Ord6 hTSH II 0.95 uIU/mL 06/17/2015 Free T4 Ggy503 FREE T4 1.08 ng/dL 06/17/2015 Metabolic Ord15 [...] Ord15 CALCIUM 9.0 mg/dL 05/06/2015 Comp Metabolic Peb973 NA 143 mEq/L 03/04/2015 Comp Metabolic Tin643 K 4.5 mEq/L 03/04/2015 Comp Metabolic Awi318 CL 92 mEq/L 03/04/2015 Comp Metabolic Sjf506 CO2 24.0 mEq/L 03/04/2015 Comp Metabolic Yim833 ANION GAP 32 03/04/2015 Comp Metabolic Sil184 GLUCOSE 72 mg/dL 03/04/2015 Comp Metabolic Wmv452 Creat 1.5 mg/dL 03/04/2015 Comp Metabolic Gat748 eGFR 48 ml/min/1.73m2 03/04/2015 Comp Metabolic Vmn480 BUN 27 mg/dL 03/04/2015 Comp Metabolic Grd302 B/C Ratio 18.0 Ratio 03/04/2015 Comp Metabolic Aal126 CALCIUM 9.1 mg/dL 03/04/2015 Comp Metabolic Ifi616 ALK PHOS 58 U/L 03/04/2015 Comp Metabolic Qoa896 AST(SGOT) 16 U/L 03/04/2015 Comp Metabolic Rlf979 ALT(SGPT) 13 U/L 03/04/2015 Comp Metabolic Ijj315 BILI T 0.6 mg/dL 03/04/2015 Comp Metabolic Ipt273 ALBUMIN 4.0 g/dL 03/04/2015 Comp Metabolic Nfo636 TPRO 6.6 g/dL 03/04/2015 Comp Metabolic Zqn510 GLOB 2.6 g/dL 03/04/2015 Comp Metabolic Vta607 A/G Ratio 1.6 Ratio 03/04/2015 Comp Metabolic Wqp197 Osmo 289 mOsmo 03/04/2015 %Hba1C Ilw471 % HbA1c 82277-9 7.3 % 01/28/2015 %Hba1C Zqf429 Gluc Ave 163 mg/dL 01/28/2015 MICRALUR 1118264 MICRL MG/L 13.2 MG/L 10/01/2014 MICRALUR 2422439 XM.ALB/CRE 48.9 MG/GCR 10/01/2014 MICRALUR 4462697 CREAT MG/D 27 MG/DL 10/01/2014 MICRALUR 3834342 CRE/100 0.27 G/L 10/01/2014 A1C HPLC 3185453 A1C HPLC 36613-7 7.3 % 10/01/2014 TSH 0174049 TSH 0.423 uIU/ML 10/01/2014 TSH 2190932 TSH 0.612 uIU/ML 10/18/2013 A1C HPLC 0449667 A1C HPLC 50615-0 6.8 % 10/18/2013 GFR CALC 1639930 GFR AA >60 ML/MIN 10/18/2013 GFR CALC 3886983 GFR NON-AA 52.0L ML/MIN 10/18/2013 LIPID GRP HDL TEST 30 MG/DL 10/18/2013 LIPID GRP TRIG 425 MG/DL 10/18/2013 LIPID GRP TEST LDL HI TRIG MG/DL 10/18/2013 LIPID GRP CHOL 185 MG/DL 10/18/2013 LIPID GRP RCHOL/HDL 6.17 RATIO 10/18/2013 MICRALUR MICRL MG/L 15.6 MG/L 10/18/2013 MICRALUR XM.ALB/CRE 9.2 MG/GCR 10/18/2013 MICRALUR CREAT MG/D 169 MG/DL 10/18/2013 MICRALUR CRE/100 1.69 G/L 10/18/2013 CHEM 14 6896665 AST 20 U/L 10/18/2013 CHEM 14 4735138 ALT 13 IU/L 10/18/2013 CHEM 14 2087943 BUN 27 MG/DL 10/18/2013 CHEM 14 4466521 ALBUMIN 4.2 GM/DL 10/18/2013 CHEM 14 8662402 CHLORIDE 100 MMOL/L 10/18/2013 CHEM 14 0287987 BILI TOT 0.5 MG/DL 10/18/2013 CHEM 14 0511062 ALK PHOS 60 U/L 10/18/2013 CHEM 14 8247289 SODIUM 131 MMOL/L 10/18/2013 CHEM 14 5394529 CREATININE 1.32 MG/DL 10/18/2013 CHEM 14 9729866 CALCIUM 9.2 MG/DL 10/18/2013 CHEM 14 2538766 POTASSIUM 4.7 MMOL/L 10/18/2013 CHEM 14 1542099 PROT TOT 7.7 GM/DL 10/18/2013 CHEM 14 3310573 GLUCOSE 140 MG/DL 10/18/2013 CHEM 14 0003349 BICARB 24 MMOL/L 10/18/2013 CHEM 14 2990992 ANION GAP 7 MEQ/L 10/18/2013 PSA EQ 20110613 PSA EQ 7.79 NG/ML 10/18/2013 CBC 3642881 WBC 6.6 10e9/L 10/18/2013 CBC 9100728 RBC 4.58 10e12/L 10/18/2013 CBC 9180840 HGB 14.6 g/dL 10/18/2013 CBC 6437454 HCT DET 42.8 % 10/18/2013 CBC 5761290 MCV 93.4 fL 10/18/2013 CBC 0546990 MCH 31.9 pg 10/18/2013 CBC 8671354 MCHC 34.1 g/dL 10/18/2013 CBC 5767258 PLT 172 10e9/L 10/18/2013 CBC 8633300 MPV 9.3 fL 10/18/2013 CBC 6468034 JAYESH % 55.4 % 10/18/2013 CBC 9957092 LY % 33.0 % 10/18/2013 CBC 9265842 MON % 8.8 % 10/18/2013 CBC 6415950 EOS % 2.6 % 10/18/2013 CBC 4665083 BASO % 0.2 % 10/18/2013 CBC 8285299 RDW 12.7 % 10/18/2013 CBC 1146898 ABS JAYESH 3.66 10e9/L 10/18/2013 CBC 0299971 ABS LYMPH 2.18 10e9/L 10/18/2013 CBC 7738110 ABS MONO 0.58 10e9/L 10/18/2013 CBC 0151351 ABS EOS 0.17 10e9/L 10/18/2013 CBC 1509817 ABS BASO 0.01 10e9/L 10/18/2013 CBC 8382680 RDW-SD 42.6 fL 10/18/2013 TSH 8825826 TSH 1.257 uIU/ML 05/05/2013 CHEM 14 1772765 AST 15 U/L 05/05/2013 CHEM 14 6683161 ALT 13 IU/L 05/05/2013 CHEM 14 0664183 BUN 22 MG/DL 05/05/2013 CHEM 14 3071749 ALBUMIN 4.2 GM/DL 05/05/2013 CHEM 14 8823363 CHLORIDE 104 MMOL/L 05/05/2013 CHEM 14 0229693 BILI TOT 0.6 MG/DL 05/05/2013 CHEM 14 1422337 ALK PHOS 52 U/L 05/05/2013 CHEM 14 9274053 SODIUM 137 MMOL/L 05/05/2013 CHEM 14 6430789 CREATININE 1.25 MG/DL 05/05/2013 CHEM 14 6997369 CALCIUM 9.1 MG/DL 05/05/2013 CHEM 14 3378459 POTASSIUM 5.0 MMOL/L 05/05/2013 CHEM 14 8546827 PROT TOT 6.7 GM/DL 05/05/2013 CHEM 14 6995762 GLUCOSE 142 MG/DL 05/05/2013 CHEM 14 7393775 BICARB 27 MMOL/L 05/05/2013 CHEM 14 3941717 ANION GAP 6 MEQ/L 05/05/2013 GFR CALC 2608398 GFR AA >60 ML/MIN 05/05/2013 GFR CALC 7779344 GFR NON-AA 56.0L ML/MIN 05/05/2013 CBC 2090991 WBC 6.1 10e9/L 05/05/2013 CBC 5708106 RBC 4.74 10e12/L 05/05/2013 CBC 8720667 HGB 14.7 g/dL 05/05/2013 CBC 9352331 HCT DET 43.6 % 05/05/2013 CBC 3219464 MCV 92.0 fL 05/05/2013 CBC 0334176 MCH 31.0 pg 05/05/2013 CBC 8236322 MCHC 33.7 g/dL 05/05/2013 CBC 3923652 PLT 168 10e9/L 05/05/2013 CBC 6588261 MPV 9.3 fL 05/05/2013 CBC 9561477 JAYESH % 53.2 % 05/05/2013 CBC 3770208 LY % 35.3 % 05/05/2013 CBC 8941029 MON % 8.7 % 05/05/2013 CBC 3519606 EOS % 2.5 % 05/05/2013 CBC 3271586 BASO % 0.3 % 05/05/2013 CBC 6693736 RDW 13.5 % 05/05/2013 CBC 4905804 ABS JAYESH 3.25 10e9/L 05/05/2013 CBC 6714865 ABS LYMPH 2.15 10e9/L 05/05/2013 CBC 4035309 ABS MONO 0.53 10e9/L 05/05/2013 CBC 9161349 ABS EOS 0.15 10e9/L 05/05/2013 CBC 9662967 ABS BASO 0.02 10e9/L 05/05/2013 CBC 7971994 RDW-SD 44.8 fL 05/05/2013 A1C HPLC 6526267 A1C HPLC 80873-8 6.4 % 05/05/2013 LIPID GRP HDL TEST 32 MG/DL 05/05/2013 LIPID GRP TRIG 170 MG/DL 05/05/2013 LIPID GRP TEST LDL 73 MG/DL 05/05/2013 LIPID GRP CHOL 139 MG/DL 05/05/2013 LIPID GRP RCHOL/HDL 4.34 RATIO 05/05/2013 CHEM 14 0309239 AST 17 U/L 11/25/2012 CHEM 14 4950992 ALT 21 IU/L 11/25/2012 CHEM 14 2904098 BUN 20 MG/DL 11/25/2012 CHEM 14 5773553 ALBUMIN 4.4 GM/DL 11/25/2012 CHEM 14 9479510 CHLORIDE 99 MMOL/L 11/25/2012 CHEM 14 0577759 BILI TOT 0.6 MG/DL 11/25/2012 CHEM 14 0385729 ALK PHOS 50 U/L 11/25/2012 CHEM 14 6034367 SODIUM 129 MMOL/L 11/25/2012 CHEM 14 7232764 CREATININE 1.20 MG/DL 11/25/2012 CHEM 14 2565919 CALCIUM 9.2 MG/DL 11/25/2012 CHEM 14 8194606 POTASSIUM 5.1 MMOL/L 11/25/2012 CHEM 14 0545994 PROT TOT 6.7 GM/DL 11/25/2012 CHEM 14 3418510 GLUCOSE 196 MG/DL 11/25/2012 CHEM 14 9362526 BICARB 25 MMOL/L 11/25/2012 CHEM 14 7181206 ANION GAP 5 MEQ/L 11/25/2012 CBC 5075915 WBC 6.1 10e9/L 11/25/2012 CBC 8214423 RBC 4.78 10e12/L 11/25/2012 CBC 4562283 HGB 15.0 g/dL 11/25/2012 CBC 0827967 HCT DET 43.4 % 11/25/2012 CBC 8353868 MCV 90.8 fL 11/25/2012 CBC 6276799 MCH 31.4 pg 11/25/2012 CBC 8867045 MCHC 34.6 g/dL 11/25/2012 CBC 9467611 PLT 174 10e9/L 11/25/2012 CBC 2799563 MPV 9.5 fL 11/25/2012 CBC 8309379 JAYESH % 54.6 % 11/25/2012 CBC 3150757 LY % 32.9 % 11/25/2012 CBC 1163103 MON % 9.6 % 11/25/2012 CBC 0700285 EOS % 2.6 % 11/25/2012 CBC 3557739 BASO % 0.3 % 11/25/2012 CBC 7144590 RDW 12.9 % 11/25/2012 CBC 6649166 ABS JAYESH 3.33 10e9/L 11/25/2012 CBC 2261138 ABS LYMPH 2.01 10e9/L 11/25/2012 CBC 0378581 ABS MONO 0.59 10e9/L 11/25/2012 CBC 7961673 ABS EOS 0.16 10e9/L 11/25/2012 CBC 8176432 ABS BASO 0.02 10e9/L 11/25/2012 CBC 4482301 RDW-SD 42.3 fL 11/25/2012 LIPID GRP HDL TEST 39 MG/DL 11/25/2012 LIPID GRP TRIG 204 MG/DL 11/25/2012 LIPID GRP TEST LDL 100 MG/DL 11/25/2012 LIPID GRP CHOL 180 MG/DL 11/25/2012 LIPID GRP RCHOL/HDL 4.62 RATIO 11/25/2012 A1C HPLC 8673041 A1C HPLC 44075-6 8.2 % 11/25/2012 GFR CALC 9281138 GFR AA >60 ML/MIN 11/25/2012 GFR CALC 2382339 GFR NON-AA 58.0L ML/MIN 11/25/2012 TSH 8231965 TSH 0.636 uIU/ML 01/13/2012 A1C HPLC 9018473 A1C HPLC 85530-4 7.9 % 01/13/2012 GFR CALC 9128788 GFR AA >60 ML/MIN 01/13/2012 GFR CALC 0577282 GFR NON-AA 59.0L ML/MIN 01/13/2012 CBC 5976861 WBC 7.8 10e9/L 01/13/2012 CBC 6159101 RBC 4.93 10e12/L 01/13/2012 CBC 8194772 HGB 15.3 g/dL 01/13/2012 CBC 8356291 HCT DET 43.6 % 01/13/2012 CBC 4346302 MCV 88.4 fL 01/13/2012 CBC 8252278 MCH 31.0 pg 01/13/2012 CBC 8063198 MCHC 35.1 g/dL 01/13/2012 CBC 0580428 PLT 173 10e9/L 01/13/2012 CBC 2130518 MPV 9.1 fL 01/13/2012 CBC 4218381 JAYESH % 57.6 % 01/13/2012 CBC 9810043 LY % 31.5 % 01/13/2012 CBC 4901314 MON % 8.8 % 01/13/2012 CBC 9385776 EOS % 1.8 % 01/13/2012 CBC 2158991 BASO % 0.3 % 01/13/2012 CBC 7351085 RDW 12.9 % 01/13/2012 CBC 9574917 ABS JAYESH 4.49 10e9/L 01/13/2012 CBC 0232187 ABS LYMPH 2.46 10e9/L 01/13/2012 CBC 9803255 ABS MONO 0.69 10e9/L 01/13/2012 CBC 8881379 ABS EOS 0.14 10e9/L 01/13/2012 CBC 5962296 ABS BASO 0.02 10e9/L 01/13/2012 CBC 5354662 RDW-SD 41.2 fL 01/13/2012 CHEM 14 9879155 AST 21 U/L 01/13/2012 CHEM 14 7088113 ALT 23 IU/L 01/13/2012 CHEM 14 7794313 BUN 20 MG/DL 01/13/2012 CHEM 14 5721540 ALBUMIN 4.4 GM/DL 01/13/2012 CHEM 14 6166723 CHLORIDE 94 MMOL/L 01/13/2012 CHEM 14 6495515 BILI TOT 0.5 MG/DL 01/13/2012 CHEM 14 0579519 ALK PHOS 60 U/L 01/13/2012 CHEM 14 9427412 SODIUM 131 MMOL/L 01/13/2012 CHEM 14 8523772 CREATININE 1.20 MG/DL 01/13/2012 CHEM 14 2289386 CALCIUM 9.5 MG/DL 01/13/2012 CHEM 14 0825479 POTASSIUM 4.3 MMOL/L 01/13/2012 CHEM 14 1581819 PROT TOT 6.5 GM/DL 01/13/2012 CHEM 14 5218542 GLUCOSE 172 MG/DL 01/13/2012 CHEM 14 1864865 BICARB 26 MMOL/L 01/13/2012 CHEM 14 6691002 ANION GAP 11 MEQ/L 01/13/2012 Review of [...] Effective Dates Notes Full Exam - General 1995 Constitutional general appearance Overall: well developed 05/13/2017 [...] normal 04/27/2016 None Full Exam - General 1995 Ears/Nose/Throat [...] murmurs 01/23/2014 None Full Exam - General 1995 Abdomen [...] rate 04/24/2013 None Full Exam - General 1995 Cardiovascular auscultation of heart Overall: regular rate 04/24/2013 None Full Exam - General 1995 Cardiovascular auscultation of heart Overall: normal heart sounds 04/24/2013 None Full Exam - General 1995 Cardiovascular [...] Exam - General 1994 Ears/Nose/Throat internal nose Turbinates: erythema 03/20/2013 None Full Exam - General 1994 Ears/Nose/Throat internal nose Turbinates: left 03/20/2013 None Full Exam - General 1994 Ears/Nose/Throat internal nose Turbinates: inferior 03/20/2013 None Full Exam - General 1994 Ears/Nose/Throat internal nose Drainage: clear 03/20/2013 None Full Exam - General 1994 Ears/Nose/Throat internal nose Nasal cavity: narrowed 03/20/2013 None Full Exam - General 1994 Ears/Nose/Throat internal nose Sinus tenderness: left frontal [...] wide-based 12/21/2012 None Full Exam - General 1995 Neurologic coordination Tremors: intention 12/21/2012 None Full [...] pain 05/30/2012 None Full Exam - General 1995 Constitutional general appearance Overall: well developed 05/30/2012 [...] 1995 Ears/Nose/Throat oral cavity/pharynx/larynx Overall: no masses 08/05/2011 [...] WOUN RTS (CULTURE OTHR SPECIMN AEROBIC) CPT-4: 28218 03/19/2015 DRAINAGE OF SKIN ABSCESS CPT-4: 48539 03/19/2015 ADMIN PNEUMOCOCCAL VACCINE SNOMED CT: 15607557 CPT-4: G0009 03/08/2015 PNEUMOCOCCAL VACC 13 THALIA IM Formatting Model/CDA Sections, Assigned to SNOMED CT: 11077431 CPT-4: 59898Cqnsfig 03/08/2015 ADMIN PNEUMOCOCCAL VACCINE SNOMED CT: 76745460 CPT-4: G0009 01/23/2014 Pneumococcal Polysaccharide Vaccine, 23-Valent, Ad Assigned to/Merissa Sutton CPT-4: 38581Fsyuuxc 01/23/2014 DESTRUCT PREMALG LESION CPT-4: 04504 10/24/2013 DESTRUCT PREMALG LES 2-14 CPT-4: 35912 10/24/2013 ROUTINE VENIPUNCTURE CPT-4: 59985 05/05/2013 PRESCRIP TRANSMIT VIA ERX SY CPT-4: G8553 04/24/2013 DESTRUCT PREMALG LESION CPT-4: 87780 12/26/2012 PRESCRIP TRANSMIT VIA ERX SY CPT-4: G8553 11/30/2012 ROUTINE VENIPUNCTURE CPT-4: 86661 11/25/2012 PRESCRIP TRANSMIT VIA ERX SY CPT-4: G8553 05/30/2012 PRESCRIP TRANSMIT VIA ERX SY CPT-4: G8553 04/14/2012 PRESCRIP TRANSMIT VIA ERX SY CPT-4: G8553 02/22/2012 ROUTINE VENIPUNCTURE CPT-4: 47584 01/13/2012 ROUTINE VENIPUNCTURE CPT-4: 90770 08/06/2011 ROUTINE VENIPUNCTURE CPT-4: 97683 06/25/2011 Vital Signs Date Vital 05/13/2017 Blood Pressure 1: 154/82 Code : 8480-6 BMI: 30.0 Code : 75891-4 Heart Rate 1 : 65 bpm Height: 6'2" SpO2: 98% Weight: 234 lbs 02/04/2017 Blood Pressure 1: 140/78 Code : 8480-6 BMI: 30.0 Code : 11354-9 Heart Rate 1 : 83 bpm Height: 6'2" SpO2: 97% Weight: 234 lbs 10/12/2016 Blood Pressure 1: 148/68 Code : 8480-6 BMI: 29.3 Code : 82218-8 Heart Rate 1 : 65 bpm Height: 6'2" SpO2: 100% Weight: 228 lbs 10/08/2016 Blood Pressure 1: 148/68 Code : 8480-6 BMI: 29.3 Code : 85900-0 Heart Rate 1 : 65 bpm Height: 6'2" SpO2: 100% Weight: 228 lbs 8 oz 09/10/2016 Blood Pressure 1: 142/68 Code : 8480-6 BMI: 29.3 Code : 34627-0 Heart Rate 1 : 75 bpm Height: 6'2" SpO2: 97% Weight: 228 lbs 08/24/2016 Blood Pressure 1: 156/86 Code : 8480-6 BMI: 28.1 Code : 50727-5 Heart Rate 1 : 72 bpm Height: 6'2" SpO2: 97% Weight: 219 lbs 08/06/2016 Blood Pressure 1: 172/90 Code : 8480-6 BMI: 29.0 Code : 63321-0 Heart Rate 1 : 68 bpm Height: 6'2" SpO2: 98% Temperature: 36.1 (C) / 96.9 (F) Weight: 226 lbs 07/30/2016 Blood Pressure 1: 138/86 Code : 8480-6 BMI: 29.7 Code : 95104-5 Heart Rate 1 : 80 bpm Height: 6'2" SpO2: 95% Temperature: 36.5 (C) / 97.7 (F) Weight: 231 lbs 06/22/2016 Blood Pressure 1: 145/82 Code : 8480-6 Heart Rate 1: 77 bpm Respiratory Rate : 18 bpm SpO2: 97% Weight: 231 lbs 04/27/2016 Blood Pressure 1: 158/76 Code : 8480-6 Blood Pressure 1: 182/78 Code: 8480-6 BMI: 30.4 Code: 87003-9 Heart Rate 1: 69 bpm Height: 6'2" SpO2: 97% Weight: 237 lbs 03/23/2016 Blood Pressure 1: 140/82 Code : 8480-6 BMI: 30.4 Code : 84042-5 Heart Rate 1 : 77 bpm Height: 6'2" SpO2: 93% Weight: 237 lbs 01/20/2016 Blood Pressure 1: 142/80 Code : 8480-6 BMI: 31.2 Code : 13798-9 Heart Rate 1 : 64 bpm Height: 6'2" SpO2: 93% Weight: 243 lbs 12/16/2015 Blood Pressure 1: 138/88 Code : 8480-6 BMI: 30.3 Code : 05017-3 Heart Rate 1 : 62 bpm Height: 6'2" SpO2: 97% Weight: 236 lbs 12/09/2015 Blood Pressure 1: 148/80 Code : 8480-6 Blood Pressure 1: 198/92 Code: 8480-6 Blood Pressure 1: 152/70 Code: 8480-6 BMI: 30.3 Code: 16096-3 Heart Rate 1: 84 bpm Height: 6'2" Weight: 236 lbs 11/25/2015 Blood Pressure 1: 160/80 Code : 8480-6 BMI: 30.2 Code : 35507-6 Heart Rate 1 : 68 bpm Height: 6'2" SpO2: 96% Weight: 235 lbs 09/02/2015 Blood Pressure 1: 122/64 Code : 8480-6 BMI: 30.2 Code : 29229-3 Heart Rate 1 : 86 bpm Height: 6'2" SpO2: 98% Weight: 235 lbs 08/05/2015 Blood Pressure 1: 130/70 Code : 8480-6 Heart Rate 1: 81 bpm SpO2: 97% Weight: 233 lbs 07/25/2015 Blood Pressure 1: 142/80 Code : 8480-6 BMI: 30.0 Code : 54255-5 Heart Rate 1 : 74 bpm Height: 6'2" SpO2: 95% Weight: 234 lbs 06/03/2015 Blood Pressure 1: 150/68 Code : 8480-6 BMI: 30.0 Code : 08959-2 Heart Rate 1 : 66 bpm Height: 6'2" SpO2: 96% Weight: 234 lbs 03/19/2015 Blood Pressure 1: 154/78 Code : 8480-6 BMI: 30.3 Code : 01851-3 Heart Rate 1 : 63 bpm Height: 6'2" SpO2: 96% Weight: 236 lbs 03/04/2015 Blood Pressure 1: 124/68 Code : 8480-6 BMI: 30.2 Code : 02377-0 Heart Rate 1 : 60 bpm Height: 6'2" SpO2: 97% Weight: 235 lbs 02/20/2015 Blood Pressure 1: 160/84 Code : 8480-6 BMI: 30.8 Code : 73055-8 Heart Rate 1 : 79 bpm Height: 6'2" SpO2: 96% Weight: 240 lbs 02/11/2015 Blood Pressure 1: 170/102 Code: 8480-6 BMI: 31.1 Code: 16450-8 Heart Rate 1: 81 bpm Height: 6'2" SpO2: 96% Weight: 242 lbs 01/28/2015 Blood Pressure 1: 174/80 Code : 8480-6 Blood Pressure 2: 168/74 Code: 8480-6 BMI: 31.2 Code: 97781-9 Heart Rate 1: 74 bpm Height: 6'2" SpO2: 97% Weight: 243 lbs 10/01/2014 Blood Pressure 1: 152/84 Code : 8480-6 BMI: 30.4 Code : 75501-7 Heart Rate 1 : 80 bpm Height: 6'2" SpO2: 96% Weight: 237 lbs 05/30/2014 Blood Pressure 1: 140/82 Code : 8480-6 BMI: 30.6 Code : 53654-2 Heart Rate 1 : 86 bpm Height: 6'2" Weight: 238 lbs 02/28/2014 Blood Pressure 1: 152/86 Code : 8480-6 BMI: 29.5 Code : 70398-9 Heart Rate 1 : 64 bpm Height: 6'2" Weight: 230 lbs 01/23/2014 Blood Pressure 1: 142/68 Code : 8480-6 BMI: 29.7 Code : 03270-1 Heart Rate 1 : 80 bpm Height: 6'2" Weight: 231 lbs 12/26/2013 Blood Pressure 1: 150/72 Code : 8480-6 BMI: 29.3 Code : 29923-0 Heart Rate 1 : 60 bpm Height: 6'2" Respiratory Rate: 16 bpm Weight: 228 lbs 8 oz 10/24/2013 Blood Pressure 1: 140/84 Code : 8480-6 Heart Rate 1: 60 bpm 10/17/2013 Blood Pressure 1: 166/72 Code : 8480-6 BMI: 28.8 Code : 23244-4 Heart Rate 1 : 68 bpm Height: 6'2" Weight: 224 lbs 07/24/2013 Blood Pressure 1: 112/64 Code : 8480-6 BMI: 29.1 Code : 35573-1 Heart Rate 1 : 80 bpm Height: 6'2" Weight: 227 lbs 04/24/2013 Blood Pressure 1: 130/74 Code : 8480-6 BMI: 28.9 Code : 63674-1 Heart Rate 1 : 76 bpm Height: 6'2" Weight: 225 lbs 6 oz 03/20/2013 Blood Pressure 1: 150/70 Code : 8480-6 BMI: 29.7 Code : 19283-6 Heart Rate 1 : 76 bpm Height: 6'2" Temperature: 37.0 (C) / 98.6 (F) Weight: 231 lbs 01/19/2013 Blood Pressure 1: 150/78 Code : 8480-6 BMI: 30.2 Code : 76916-1 Heart Rate 1 : 84 bpm Height: 6'2" Weight: 235 lbs 12/26/2012 Blood Pressure 1: 142/78 Code : 8480-6 BMI: 29.9 Code : 68857-1 Heart Rate 1 : 84 bpm Height: 6'2" Weight: 233 lbs 12/21/2012 Blood Pressure 1: 142/80 Code : 8480-6 BMI: 29.5 Code : 07500-1 Heart Rate 1 : 80 bpm Height: 6'2" Weight: 230 lbs 11/30/2012 Blood Pressure 1: 146/78 Code : 8480-6 BMI: 29.4 Code : 04859-3 Heart Rate 1 : 80 bpm Height: 6'2" Weight: 229 lbs 05/30/2012 Blood Pressure 1: 150/74 Code : 8480-6 BMI: 29.4 Code : 98362-8 Heart Rate 1 : 76 bpm Height: 6'2" Respiratory Rate: 16 bpm Weight: 229 lbs 04/26/2012 Blood Pressure 1: 124/64 Code : 8480-6 Heart Rate 1: 90 bpm SpO2: 98% Temperature: 36.7 (C) / 98.1 (F) Weight: 04/14/2012 Blood Pressure 1: 150/88 Code : 8480-6 Blood Pressure 2: 150/90 Code: 8480-6 BMI: 29.4 Code: 08445-6 Heart Rate 1: 72 bpm Height: 6'2" [...] Code : 8480-6 BMI: 28.9 Code : 52882-6 Heart Rate 1 : 64 bpm Height: 6'2" Weight: 225 lbs 08/05/2011 Blood Pressure 1: 142/72 Code : 8480-6 BMI: 29.3 Code : 85710-5 Heart Rate 1 : 80 bpm Height: 6'2" Weight: 228 lbs 07/01/2011 Blood Pressure 1: 136/70 Code : 8480-6 BMI: 29.2 Code : 59672-3 Heart Rate 1 : 68 bpm Height: [...] mellitus Pertinent Findings Denies nausea 05/13/2017 None hypothyroid Onset and Resolution ongoing 02/04/2017 [...] None cough Alleviating Factors OTC medications 09/10/2016 jazmíntip pollard plus cough Pertinent Findings chest discomfort 09/10/2016 [...] doing physical therapy for parkinson's disease at [facility] diabetes mellitus Alleviating Factors insulin 01/19/2013 None [...] data Encounters Encounter Performer Location Codes Date ([id number]) [id number] EST. PATIENT, LEVEL IV Diagnosis: Essential (primary) hypertension[ICD10: I10] Diagnosis: Localized edema[ICD10: R60.0] Diagnosis: Atrophy of thyroid (acquired)[ICD10: E03.4] Diagnosis: Type 2 diabetes mellitus without complications[ICD10: E11.9] [facility] CPT-4: 61314 05/13/2017 ([id number]) 21442 EST. PATIENT, LEVEL IV Diagnosis: Type 2 diabetes mellitus with hyperglycemia[ICD10: E11.65] Diagnosis: Essential (primary) hypertension[ICD10: I10] Diagnosis: Hypothyroidism, unspecified[ICD10: E03.9] Ginny Medley MD, [facility] CPT-4: 45974 02/04/2017 ([id number]) 03830 EST. PATIENT, LEVEL III Diagnosis: Essential (primary) hypertension[ICD10: I10] Diagnosis: Hypothyroidism, unspecified[ICD10: E03.9] Ginny Medley MD, [facility] CPT-4: 48828 10/08/2016 ([id number]) 04894 EST. PATIENT, LEVEL III Diagnosis: Allergic rhinitis due to pollen[ICD10: J30.1] Diagnosis: Hypothyroidism, unspecified[ICD10: E03.9] Ginny Medley MD, [facility] CPT-4: 23458 09/10/2016 ([id number]) 89012 EST. 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 CPT-4: 04627 08/24/2016 ([id number]) 96035 EST. PATIENT, LEVEL IV Diagnosis: Abdominal distension (gaseous)[ICD10: R14.0] Diagnosis: Cough[ICD10: R05] Diagnosis: Acute bronchitis, unspecified[ICD10: J20.9] Diagnosis: Essential (primary) hypertension[ICD10: I10] Ginny Medley MD, [facility] CPT-4: 40926 08/06/2016 ([id number]) 37958 EST. PATIENT, LEVEL III Diagnosis: Cough[ICD10: R05] Diagnosis: Acute upper respiratory infection, unspecified[ICD10: J06.9] Ginny Medley MD, [facility] CPT-4: 11291 07/30/2016 ([id number]) 18737 EST. PATIENT, LEVEL IV Diagnosis: Type 2 diabetes mellitus with hyperglycemia[ICD10: E11.65] Diagnosis: Essential (primary) hypertension[ICD10: I10] Diagnosis: Parkinson's disease[ICD10: G20] Diagnosis: Localized edema[ICD10: R60.0] Ginny Medley MD, [facility] CPT-4: 98840 06/22/2016 ([id number]) 75396 EST. PATIENT, LEVEL IV Diagnosis: Essential (primary) hypertension[ICD10: I10] Diagnosis: Type 2 diabetes mellitus with hyperglycemia[ICD10: E11.65] Diagnosis: Hypo-osmolality and hyponatremia[ICD10: E87.1] Diagnosis: Hesitancy of micturition[ICD10: R39.11] Ginny Medley MD, [facility] CPT-4: 75319 04/27/2016 ([id number]) 36013 EST. PATIENT, LEVEL III Diagnosis: Essential (primary) hypertension[ICD10: I10] Diagnosis: Localized edema[ICD10: R60.0] Ginny Medley MD, [facility] CPT-4: 07178 03/23/2016 ([id number]) 89537 EST. PATIENT, LEVEL IV Diagnosis: Low back pain[ICD10: M54.5] Diagnosis: Hypo-osmolality and hyponatremia[ICD10: E87.1] Diagnosis: Essential (primary) hypertension[ICD10: I10] Diagnosis: Localized edema[ICD10: R60.0] Diagnosis: Type 2 diabetes mellitus with hyperglycemia[ICD10: E11.65] Ginny Medley MD, [facility] CPT-4: 48331 01/20/2016 ([id number]) 13958 EST. PATIENT, LEVEL III Diagnosis: Type 2 diabetes mellitus with hyperglycemia[ICD10: E11.65] Diagnosis: Essential (primary) hypertension[ICD10: I10] Diagnosis: Hypo-osmolality and hyponatremia[ICD10: E87.1] Ginny Medley MD, [facility] CPT-4: 94470 12/16/2015 ([id number]) 02338 EST. PATIENT, LEVEL III Diagnosis: Essential (primary) hypertension[ICD10: I10] Diagnosis: Hypo-osmolality and hyponatremia[ICD10: E87.1] Ginny Medley MD, [facility] CPT-4: 88900 12/09/2015 ([id number]) 62548 EST. PATIENT, LEVEL IV Diagnosis: Essential (primary) hypertension[ICD10: I10] Diagnosis: Type 2 diabetes mellitus with hyperglycemia[ICD10: E11.65] Diagnosis: Parkinson's disease[ICD10: G20] Ginny Medley MD, [facility] CPT-4: 38864 11/25/2015 40835 EST. PATIENT, LEVEL III Diagnosis: Localized edema[ICD10: R60.0] Diagnosis: Essential (primary) hypertension[ICD10: I10] Bonita Medley MD, [facility] CPT-4: 08290 09/02/2015 ([id number]) 01798 EST. PATIENT, LEVEL III Diagnosis: Localized edema[ICD10: R60.0] Ginny Medley MD, [facility] CPT-4: 03888 08/05/2015 ([id number]) 66675 EST. PATIENT, LEVEL III Diagnosis: Localized edema[ICD10: R60.0] Diagnosis: Unspecified open wound, right ankle, initial encounter[ICD10: S91.001A] Ginny Medley MD, [facility] CPT-4: 15536 ([id number]) 45402 EST. PATIENT, LEVEL IV Diagnosis: Essential (primary) hypertension[ICD10: I10] Diagnosis: Localized edema[ICD10: R60.0] Diagnosis: Low back pain[ICD10: M54.5] Diagnosis: Type 2 diabetes mellitus with hyperglycemia[ICD10: E11.65] Ginny Medley MD, [facility] CPT-4: 69282 06/03/2015 ([id number]) Miscellaneous no charge Diagnosis: Encounter for other specified aftercare[ICD10: Z51.89] Yoli Medley MD, [facility] CPT-4: 93788 03/20/2015 77008 EST. PATIENT, LEVEL IV Diagnosis: Cutaneous abscess of chest wall[ICD10: L02.213] Yoli Medley MD, [facility] CPT-4: 67657 03/19/2015 ([id number]) 38324 EST. PATIENT, LEVEL III Diagnosis: Edema, unspecified[ICD10: R60.9] Yoli Medley MD, [facility] CPT-4: 61281 03/04/2015 95889 EST. PATIENT, LEVEL III Diagnosis: Edema, unspecified[ICD10: R60.9] Diagnosis: Unspecified open wound, right ankle, initial encounter[ICD10: S91.001A] Yoli Medley MD, [facility] CPT-4: 28113 07/2014 ([id number]) 99552 EST. PATIENT, LEVEL III Diagnosis: Edema, unspecified[ICD10: R60.9] Yoli Medley MD [facility] CPT-4: 97500 02/11/2015 ([id number]) 23526 EST. PATIENT, LEVEL IV Diagnosis: Type 2 diabetes mellitus with hyperglycemia[ICD10: E11.65] Diagnosis: Essential (primary) hypertension[ICD10: I10] Diagnosis: Edema, unspecified[ICD10: R60.9] Yoli Medley MD [facility] CPT-4: 34679 01/28/2015 ([id number]) 66443 EST. PATIENT, LEVEL IV Diagnosis: DIABETES TYPE II[ICD9: 250.00] Diagnosis: ESSENTIAL HYPERTENSION[ICD9: 401.9] Diagnosis: Parkinsons disease[ICD9: 332.0] Yoli Medley MD [facility] CPT- 4: 75472 10/01/2014 ([id number]) 54213 EST. PATIENT, LEVEL IV Diagnosis: ESSENTIAL HYPERTENSION[ICD9: 401.9] Diagnosis: DIABETES TYPE II[ICD9: 250.00] Diagnosis: Parkinsons disease[ICD9: 332.0] Yoli Medley MD [facility] CPT- 4: 31836 05/30/2014 ([id number]) 99800 EST. PATIENT, LEVEL IV Diagnosis: DIABETES TYPE II[ICD9: 250.00] Diagnosis: ESSENTIAL HYPERTENSION[ICD9: 401.9] Diagnosis: Back pain[ICD9: 724.5] Yoli Medley MD [facility] CPT-4: 74599 02/28/2014 ([id number]) 87568 EST. PATIENT, LEVEL III Diagnosis: ESOPHAGEAL REFLUX[ICD9: 530.81] Diagnosis: Esophageal ulcer[ICD9: 530.20] Yoli Medley MD [facility] CPT- 4: 21605 01/23/2014 ([id number]) 29681 EST. PATIENT, LEVEL IV Diagnosis: ESOPHAGEAL REFLUX[ICD9: 530.81] Diagnosis: ESSENTIAL HYPERTENSION[ICD9: 401.9] Yoli Medley MD [facility] CPT-4: 65845 12/26/2013 ([id number]) 40998 EST. PATIENT, LEVEL IV Diagnosis: Diabetes type 2, uncontrolled[ICD9: 250.02] Diagnosis: ESSENTIAL HYPERTENSION[ICD9: 401.9] Diagnosis: Back pain[ICD9: 724.5] Diagnosis: ELEVATED PSA[ICD9: 790.93] Yoli Medley MD [facility] CPT- 4: 12728 10/17/2013 ([id number]) 69215 EST. PATIENT, LEVEL IV Diagnosis: DIABETES TYPE II[SNOMED: 969515309] Diagnosis: ESSENTIAL HYPERTENSION[SNOMED: 63108803] Diagnosis: Sleep apnea[ICD9: 780.57] Yoli Medley MD, [facility] CPT-4: 15880 07/24/2013 ([id number]) 36090 EST. PATIENT, LEVEL IV Diagnosis: DIABETES TYPE II[SNOMED: 084674603] Diagnosis: ESSENTIAL HYPERTENSION[SNOMED: 94070867] Diagnosis: HYPERLIPIDEMIA[ICD9: 272.4] Yoli Medley MD [facility] CPT- 4: 38440 04/24/2013 ([id number]) 21505 EST. PATIENT, LEVEL III Diagnosis: DIABETES TYPE II[SNOMED: 259549511] Yoli Medley MD, [facility] CPT-4: 38723 03/20/2013 ([id number]) 76873 EST. PATIENT, LEVEL III Diagnosis: DM W/O COMPLICATION TYPE II, UNCONTROLLED[SNOMED: 93370510] Yoli Medley MD [facility] CPT-4: 31637 01/19/2013 ([id number]) 02638 EST. PATIENT, LEVEL III Diagnosis: DM W/O COMPLICATION TYPE II, UNCONTROLLED[SNOMED: 37579753] Yoli Medley MD [facility] CPT-4: 65721 12/21/2012 ([id number]) 21637 EST. PATIENT, LEVEL IV Diagnosis: DM W/O COMPLICATION TYPE II, UNCONTROLLED[SNOMED: 04952149] Diagnosis: Parkinsons disease[ICD9: 332.0] Diagnosis: Back pain[ICD9: 724.5] Diagnosis: Gait instability[ICD9: 781.2] Yoli Medley MD, [facility] CPT- 4: 83926 11/30/2012 ([id number]) 52521 EST. PATIENT, LEVEL IV Diagnosis: ESSENTIAL HYPERTENSION[SNOMED: 56205820] Diagnosis: Abdominal pain[ICD9: 789.00] Diagnosis: DIABETES TYPE II[SNOMED: 019599605] Yoli Medley MD [facility] CPT-4: 83302 05/30/2012 ([id number]) 20662 EST. PATIENT, LEVEL III Diagnosis: Gastroenteritis[ICD9: 558.9] Ginny Medley MD [facility] CPT-4: 08412 04/26/2012 ([id number]) 39461 EST. PATIENT, LEVEL IV Diagnosis: ESSENTIAL HYPERTENSION[SNOMED: 06173526] Diagnosis: DIABETES TYPE II[SNOMED: 978290873] Diagnosis: Claw toe[ICD9: 735.5] Yoli Medley MD [facility] CPT-4: 41327 04/14/2012 ([id number]) 19370 EST. PATIENT, LEVEL III Diagnosis: Rash[ICD9: 782.1] Diagnosis: DERMATOPHYTOSIS OF FOOT[ICD9: 110.4] Ginny Medley MD [facility] CPT-4: 96648 02/22/2012 ([id number]) 03496 EST. PATIENT, LEVEL IV Diagnosis: DM W/O COMPLICATION TYPE II, UNCONTROLLED[SNOMED: 69693011] Diagnosis: ESSENTIAL HYPERTENSION[SNOMED: 01708775] Diagnosis: Constipation - functional[ICD9: 564.09] Diagnosis: Encounter for long-term (current) use of other high-risk medications[ ICD9: V58.69] Yoli Medley MD [facility] CPT-4: 58791 01/13/2012 ([id number]) 77640 EST. PATIENT, LEVEL IV Diagnosis: ESSENTIAL HYPERTENSION[SNOMED: 31131558] Diagnosis: DIABETES TYPE II[SNOMED: 269199312] Yoli Medley MD [facility] CPT-4: 35035 09/02/2011 42910 EST. PATIENT, LEVEL IV Diagnosis: LUMBAGO[ICD9: 724.2] Diagnosis: Sacroiliitis[ICD9: 720.2] Yoli Medley MD, [facility] CPT-4: 36627 08/05/2011 ([id number]) 03782 EST. PATIENT, LEVEL IV Diagnosis: ESSENTIAL HYPERTENSION[SNOMED: 57780147] Diagnosis: DIABETES TYPE II[SNOMED: 331039579] Diagnosis: Breast mass in male[ICD9: 611.72] Diagnosis: Chronic hyponatremia[ICD9: 276.1] Yoli Medley MD, [facility] CPT-4: 08660 07/01/2011 Plan of Care Planned Activity Notes [...] less controlled. 05/13/2017 Appointment: Yoli Medley WPtel: [facility] (15 min) Moderate 05/13/2017 Patient Education: Patient Medication Summary Completed 05/13/2017 App[facility]ment[phone] (15 min) Moderate 04/28/2017 Appointment: Bonita Villa WPtel: [facility] (30 min) Complex 04/16/2017 Appointment: Bonita Villa WPtel: [facility] (30 min) Complex 04/15/2017 Visit Plan: Hypertension [...] of control. 02/04/2017 Appointment: Ginny Pearl WPtel: [facility]5 [phone] (30 min) Complex 02/04/2017 Patient Education: Patient Medication Summary Completed 02/04/2017 Patient Education: Obesity Completed 02/04/2017 Patient Education: Patient Medication Summary Completed 02/01/2017 Appointment: Ginny Pearl WPtel: [phone] (30 min) Complex 01/12/2017 Appointment: Ginny Pearl WPtel: [facility]5 [phone] (30 min) Complex 01/07/2017 Visit Plan: Medicare [...] surrogate. 10/12/2016 Appointment: Bonita Villa WPtel: [phone] [facility] [facility] - Annual Wellness Visit 10/12/2016 Patient Education: [...] 3 months. 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 Pt has been encouraged to exercise daily. The pt has been advised to call the office if there are any acute concerns about change in blood pressure readings at home. Bilateral thyroid nodules-voice hoarseness-Dr Ford to do total thyroidectomy on Wednesday Ymghbaxtvm-yihdy-mihazk-due to thyroid nodules-will monitor symptoms for now [...] and plan. 08/24/2016 Appointment: Ginny Pearl WPtel: [address] [place], [place] [phone] (30 min) Complex 08/24/2016 Patient Education: Patient Medication Summary Completed 08/24/2016 Visit Plan: Abdominal rwbzwgqg-roasycihoxvr-MBT today Bronchitis - acute case of bronchitis [...] at home 08/06/2016 Appointment: Ginny Pearl WPtel: [phone] (10 min) Simple 08/06/2016 Patient Education: Patient Medication Summary Completed 08/06/2016 Visit Plan: URI - Pt advised to increase fluids, vitamin C. Discussed natural and expected course of this diagnosis and need to alert me if symptoms do not follow expected course, or if any worse. RX sent to patient' s pharmacy. 07/30/2016 Appointment: Ginny Pearl WPtel: [phone] [phone] (15 min) Moderate 07/30/2016 Patient Education: Patient [...] worsen. 06/22/2016 Appointment: Ginny Pearl WPtel: [phone] [phone] (30 min) Complex 06/22/2016 Patient Education: Patient [...] negative 04/27/2016 Appointment: Ginny Pearl WPtel: [phone] [phone] [place] [address] (30 min) Complex 04/27/2016 Patient Education: Patient [...] edema. 03/23/2016 Appointment: Ginny Pearl WPtel: [phone] [phone] (30 min) Complex 03/23/2016 Patient Education: Patient [...] in the office. Refer for PT at [facility]- Low back pain, generalized weakness, Parkinsons Low fudzml-ollfner-li need for increase sodium intake Hypertension - [...] Hgb A1C 01/20/2016 Appointment: Ginny Pearl WPtel: [phone] (30 min) Complex 01/20/2016 Patient Education: Patient Medication Summary Completed 01/20/2016 Patient Education: Obesity Completed 01/20/2016 Care Plan: Comp Metabolic Pending 01/20/2016 Care Plan: Cbc With Differential Pending 01/20/2016 Care Plan: %Hba1C [facility] : [address]-3 Pending 01/20/2016 Visit Plan: Diabetes Mellitus - [...] today 12/09/2015 Appointment: [facility] Pearl [facility]el[phone] [phone] (30 min) Complex 12/09/2015 Patient Education: Patient [...] symptoms worsen. 11/25/2015 Appointment: Ginny Pearl WPtel: [address] [place] [phone] (30 min) Complex 11/25/2015 Patient Education: Patient [...] 03/26/2015 Care Plan: Referral Order SNOMED-CT : [id number] Ordered 03/26/2015 Patient Education: Patient Medication Summary [...] 02/20/2015 Care Plan: Referral Order SNOMED-CT : [id number] Ordered 02/20/2015 Visit Plan: Hypertension - uncontrolled [...] SPIRONOLACTONE 02/11/2015 Appointment: Yoli Medley [facility]Ptel: [phone] (15 min) Moderate 02/11/2015 Patient Education: Patient [...] blood pressure. 01/28/2015 Appointment: Yoli Medley WPtel: [phone] [facility] [place] (15 min) Moderate 01/28/2015 Patient Education: Patient [...] worsen. 10/01/2014 Appointment: Yoli Medley [facility]Ptel: [phone] [facility] Follow up 10/01/2014 Patient Education: Patient Medication [...] worsen. 05/30/2014 Appointment: Yoli Medley WPtel: [phone] [facility] Follow up 05/30/2014 Patient Education: Patient Medication [...] 29. 01/23/2014 Appointment: Yoli Medley WPtel: [phone] [facility] Follow up 01/23/2014 Patient Education: Patient Medication [...] home. 12/26/2013 Appointment: Yoli Medley WPtel: [phone] [facility] [place] Follow up 12/26/2013 Patient Education: Patient Medication Summary Completed 12/26/2013 Patient Education: Hypertension Completed 12/26/2013 Visit Plan: Wound Instructions - Pt was instruced to keep the wound clean, wash with antibacterial soap, use triple antibiotic ointment, call if redness, pustular drainage, or any other acute conerns. 10/24/2013 Appointment: Dae Ginny [facility]el[phone] [phone] Surgical Procedure 10/24/2013 Patient Education: Patient Medication [...] the lesions. 10/17/2013 Appointment: Yoli Medley WPtel: [phone] Follow up 10/17/2013 Patient Education: Patient Medication [...] like to have his Oxygen company - [employer] - help with arranging oxygen when he is in [facility]. 07/24/2013 Appointment: Yoli Medley WPtel: [phone] [facility] [place] Follow up 07/24/2013 Patient Education: Patient Medication Summary Completed 07/24/2013 Patient Education: Hypertension Completed 07/24/2013 Appointment: Ginny Pearl [facility]Ptel: [phone] [phone] [place] Lab Draw 05/05/2013 Patient Education: Patient Medication Summary Completed 05/05/2013 Patient Education: Hypertension Completed 05/05/2013 Appointment: Yoli Medley WPtel: [phone] [facility] [place] Follow up 05/01/2013 Visit Plan: Diabetes [...] DAILY. 01/19/2013 Appointment: Yoli Medley [facility]Ptel: [phone] [facility] Follow up 01/19/2013 Patient Education: Patient Medication Summary Completed 01/19/2013 Visit Plan: SU-cioffoeh-joioxqabmuf today in the office- wound Instructions - Pt was instruced to keep the wound clean, wash with antibacterial soap, use triple antibiotic ointment, call if redness, pustular drainage, or any other acute conerns. 12/26/2012 Appointment: Ginny Pearl [facility]Ptel: [phone] [phone] Other 12/26/2012 Patient Education: Patient Medication Summary [...] glucose. 12/21/2012 Appointment: Yoli Medley [facility]Ptel: [phone] Follow up 12/21/2012 Patient Education: Patient Medication Summary Completed 12/21/2012 Visit Plan: Parkinsons disease - rx for sinemet 25/100mg 1/ 2 pill in morning and 1/2 pill in evening, pt to let us know if the symptoms improve. Referral to Miguel at [facility] for gait instability. Diabetes Mellitus - Uncontrolled [...] and gait instability - recommended christina at [facility] - continue with back brace as it offers support for the patient. 11/30/2012 Appointment: Yoli Medley WPtel: [phone] [facility] Follow up 11/30/2012 Patient Education: Patient Medication [...] been previously. 05/30/2012 Appointment: Yoli Medley WPtel: [phone] 6 wk f/u Follow up 05/30/2012 Patient [...] to seek support for his arches via [employer] christina and perhaps arch supports to be custom made or custom fitted. 04/14/2012 Appointment: Yoli Medley WPtel: [phone] Follow up 04/14/2012 Patient Education: Patient Medication Summary Completed 04/14/2012 Patient Education: Hypertension Completed 04/14/2012 Visit Plan: Rash- Discussed natural and expected course of this diagnosis and need to alert me if symtpoms do not follow expected course, or if any worse. RX sent to patient's pharmacy. 02/22/2012 Appointment: Ginny Pearl WPtel: [phone] [place] [address] 02/22/2012 Patient Education: Patient Medication Summary Completed [...] this regimen. 01/13/2012 Appointment: Yoli Medley WPtel: [phone] [facility] [facility] Patient Preventative visit 01/13/2012 Patient Education: [...] controlled. 09/02/2011 Appointment: Yoli Medley WPtel: [phone] [facility] Other 09/02/2011 Patient Education: Patient Medication Summary Completed 09/02/2011 Patient Education: High Blood Pressure: Essential Hypertension Completed 2011 Appointment: Pearl Ginny [facility]Ptel[phone] Lab Draw 08/06/2011 Patient Education: Patient Medication [...] metformin bid. 08/05/2011 Appointment: Yoli Medley WPtel: [facility]5 [facility] Other 08/05/2011 Patient Education: Patient Medication Summary [...] home. 07/01/2011 Appointment: Yoli Medley WPtel: [phone] [facility] Other 07/01/2011 Patient Education: Patient Medication Summary Completed 07/01/2011 Patient Education: High Blood Pressure: Essential Hypertension Completed 2011 Appointment: Yoli Medley WPtel: [phone] [facility] Lab Draw 06/25/2011 Patient Education: Patient Medication Summary Completed 06/25/2011 Patient Education: High Blood Pressure: Essential Hypertension Completed 2011 Referral: [facility] Referral Initiated Referral: Dangelo Ford Referral Initiated [...] CHECK LABS STOP EXTRA SODIUM REFER TO [facility] DX PARKINSONS, BACK PAIN, WEAKNESS . Low back pain- the patient was instructed in appropriate posture, need for weight loss to alleviate abdominal obesity that is worsening the patient's back pain. The patient is to call the office if the pain is worsening or does not improve. Kenalog injection today in the office. Refer for PT at [facility]-DX Low back pain, generalized weakness, Parkinsons Low goggxb-bqsztts-tm need for increase sodium intake Hypertension - [...] in blood pressure readings at home. . Diarrhea - recommended bland diet, low [...] change in blood pressure readings at home. Gslyusmbrjgobh-vaslufhg-jnxeckk medication increased by Dr Ford and wants [...] Ford to do total thyroidectomy on Wednesday Pljqknphow-awjqh-kehypt-due to thyroid nodules-will monitor symptoms for now . Hypertension - continue with current medications, continue with no added salt diet. Pt has been encouraged to exercise daily. The pt has been advised to call the office if there are any acute concerns about change in blood pressure readings at home. Bilateral thyroid nodules-voice hoarseness-Dr Ford to do total thyroidectomy on Wednesday Hfxmmrxsfi-jhgim-fanqwi-due to thyroid nodules-will monitor symptoms for now [...] sent to patient's pharmacy. take 2 lasix Wednesday morning, 2 Lasix [...] Lab work- CBC, CMP, BNP . Abdominal cgkuhxnr-giqkshjbulaz-YMH today Bronchitis - acute case of bronchitis [...] to further attempt to reduce peripheral edema. daily anti histamine such as zyrtec kenalog [...] readings are starting to become less controlled. send a script for sucralfate liquid to [...] wraps to lower legs Appointment with [facility]- July 29 at 1pm. . [...] like to have his Oxygen company - [employer] - help with arranging oxygen when he is in [facility]. . Parkinsons disease - rx for sinemet 25/100mg 1/2 pill in morning and 1/2 pill in evening, pt to let us know if the symptoms improve. Referral to Miguel at [facility] for gait instability. Diabetes Mellitus - Uncontrolled [...] and gait instability - recommended eval at [facility] - continue with back brace as it offers support for the patient. . BU-dsikonbg-ulcdojzlzff today in the office-wound Instructions - Pt [...] to seek support for his arches via [employer] eval and perhaps arch supports to be [...]
--- OUTSIDE RECORDS SUMMARY | 2017-11-07 17:22 | XMS REPORT | CCD ---
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 Name Role Phone PP Unavailable CCM Unavailable Summary Purpose Interface Exchange Insurance Providers Payer name Policy type / Coverage type Covered green party ID Effective Begin Date Effective End Date WPS Medicare Part B Medicare Part B [id number] Unknown [facility] [facility] Medicare Part B [id number] Unknown Family history Runs in the family Diagnosis Age At Onset Diabetes Unknown Mother Diagnosis Age At Onset Diabetes Unknown Hypertension Unknown Alzheimer's Disease Unknown Stroke Unknown Father Diagnosis Age At Onset No Family Disease Entered N/A Grandmother Diagnosis Age At Onset Alzheimer's Disease Unknown Social History Social History Element Codes Description Effective Dates Number of children Unknown 4 1 in [place], 1 in [place], 2 in [place] 2011 Employment Unknown 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[place] [employer]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/[address]: 8015295 Former smoker Quit in 1953 - 1 [...] Fill Instructions glipizide 10 mg tablet RxNorm: 636960 1 Tablet(s) PO BID 201711/03/2018 Active metformin ER 500 mg tablet,extended release 24 hr RxNorm: 217825 Tablet(s) TAKE ONE TABLET BY MOUTH TWICE DAILY 05/13/2017 05/07/2018 Active Basaglar KwikPen 100 unit/mL (3 mL) subcutaneous RxNorm: 1037752 24 Unit(s) SQ daily 05/13/2017 05/07/2018 Active lisinopril 20 mg tablet RxNorm: 080079 Tablet(s) TAKE 1 TABLET BY MOUTH TWICE DAILY 05/13/2017 05/07/2018 Active finasteride 5 mg tablet RxNorm: 288401 1 Tablet(s) PO daily 11/08/2017 Active [SAVINGS FOR UNINSURED PATIENTS -- BIN:098390, PCN: ASPROD1, Group: [id number], ID# [id number], Process claim through ETHERA, for questions: . THIS IS NOT INSURANCE.] levothyroxine 175 mcg tablet RxNorm: 142451 1 Tablet(s) PO daily 05/13/2017 11/08/2017 Active Sinemet 25 mg-100 mg tablet RxNorm: 085621 Tablet(s) TAKE ONE TABLET BY MOUTH TWICE DAILY IN THE MORNING AND AT SUPPER 05/13/2017 05/07/2018 Active Lasix 20 mg tablet RxNorm: 388021 Tablet(s) TAKE 1 TABLET BY MOUTH ONCE DAILY FOR 1 WEEK AND THEN TAKE 1 TABLET BY MOUTH EVERY 3 DAYS THEREAFTER 05/13/2017 07/27/2017 Active Basaglar KwikPen 100 unit/mL (3 mL) subcutaneous RxNorm: 3317960 24 Unit(s) SQ daily 05/07/2017 05/12/2017 Inactive Lasix 20 mg tablet RxNorm: 669746 2 Tablet(s) PO daily x 3 days, then 1 pill three times a week thereafter 04/28/2017 No Stop Date Active triamcinolone acetonide 0.025 % topical cream RxNorm: 9353505 1 Application TOP BID 04/28/2017 No Stop Date Active clotrimazole 1 % topical cream RxNorm: 461739 1 Application TOP BID 04/28/2017 No Stop Date Active potassium chloride ER 10 mEq tablet,extended release(part/ cryst) RxNorm: 7668654 2 Tablet(s) PO daily x 3 days, then 1 pill three times a week when taking the lasix 04/28/2017 08/25/2017 Active Lasix 20 mg tablet RxNorm: 885772 Tablet(s) TAKE 1 TABLET BY MOUTH ONCE DAILY FOR 1 WEEK AND THEN TAKE 1 TABLET BY MOUTH EVERY 3 DAYS THEREAFTER 04/22/2017 05/12/2017 Inactive Lantus Solostar 100 unit/mL (3 mL) subcutaneous insulin pen RxNorm: 241331 24 Unit(s) SQ daily INJECT 24 UNITS DAILY OR DIRECTED 201605/06/2017 Inactive 1 box of 5 pens Basaglar KwikPen 100 unit/mL (3 mL) subcutaneous RxNorm: 3144924 24 Unit(s) SQ daily 03/02/2017 05/06/2017 Inactive Basaglar KwikPen 100 unit/mL (3 mL) subcutaneous RxNorm: 1844566 24 Unit(s) SQ daily 03/02/2017 03/01/2017 Inactive levothyroxine 175 mcg tablet RxNorm: 375221 1 Tablet(s) PO daily 02/02/2017 05/12/2017 Inactive Sinemet 25 mg-100 mg tablet RxNorm: 775949 TAKE ONE TABLET BY MOUTH TWICE DAILY IN THE MORNING AND AT SUPPER 12/30/2016 Inactive metformin ER 500 mg tablet,extended release 24 hr RxNorm: 328307 Tablet(s) TAKE ONE TABLET BY MOUTH TWICE DAILY 11/10/2016 05/12/2017 Inactive lisinopril 20 mg tablet RxNorm: 989720 Tablet(s) TAKE 1 TABLET BY MOUTH TWICE DAILY 11/10/2016 05/12/2017 Inactive levothyroxine 150 mcg tablet RxNorm: 510858 1 Tablet(s) PO daily 11/05/2016 02/01/2017 Inactive PLEASE LET PATIENT KNOW WE ARE GIVING HIM 150MCG INSTEAD OF 100MCG SO HE JUST TAKES 1 TAB DAILY. THANKS! Lantus Solostar 100 unit/mL (3 mL) subcutaneous insulin pen RxNorm: 685084 24 Unit(s) SQ daily INJECT 24 UNITS DAILY OR DIRECTED 201603/01/2017 Inactive 1 box of 5 pens Lantus Solostar 100 unit/mL (3 mL) subcutaneous insulin pen RxNorm: 013031 24 Unit(s) SQ daily INJECT 24 UNITS DAILY OR DIRECTED 201610/06/2016 Inactive please call patient with the colbert levothyroxine 100 mcg tablet RxNorm: 210295 1.5 Tablet(s) PO daily 10/05/2016 11/04/2016 Inactive metformin ER 500 mg tablet,extended release 24 hr RxNorm: 582048 Tablet(s) TAKE ONE TABLET BY MOUTH TWICE DAILY 09/29/2016 11/09/2016 Inactive prednisone 20 mg tablet RxNorm: 022972 1 Tablet(s) PO BID 08/0608/10/2016 Inactive Kenalog 40 mg/mL suspension for injection RxNorm: 2796065 1 Milliliter(s) Inj 07/30/2016 07/30/2016 Inactive doxycycline hyclate 100 mg tablet RxNorm: 225158 1 Tablet(s) PO BID 07/30/2016 08/05/2016 Inactive glipizide 10 mg tablet RxNorm: 221383 1 Tablet(s) PO BID 201605/12/2017 Inactive Sinemet 25 mg-100 mg tablet RxNorm: 025124 TABLET(S) TAKE 1 TABLET BY MOUTH TWICE A DAY IN THE MORNING AND AT SUPPER 05/11/2016 11/06/2016 Inactive Patient requests 90 days supply metformin ER 500 mg tablet,extended release 24 hr RxNorm: 234916 TAKE ONE TABLET BY MOUTH TWICE DAILY 05/04/20162016 Inactive lisinopril 20 mg tablet RxNorm: 441656 TAKE 1 TABLET BY MOUTH TWICE DAILY 04/14/2016 11/09/2016 Inactive Sinemet 25 mg-100 mg tablet RxNorm: 741273 1 Tablet(s) PO BID TAKE 1 TABLET BY MOUTH TWICE A DAY IN THE MORNING AND AT SUPPER 03/23/2016 09/18/2016 Inactive Lasix 20 mg tablet RxNorm: 427305 Tablet(s) TAKE 1 TABLET BY MOUTH ONCE DAILY FOR 1 WEEK AND THEN TAKE 1 TABLET BY MOUTH EVERY 3 DAYS THEREAFTER 03/23/2016 06/06/2016 Inactive hydrocodone 5 mg-acetaminophen 325 mg tablet RxNorm: 447462 1-2 Tablet(s) PO Q6- 8H 01/21/2016 No Stop Date Active Lantus Solostar 100 unit/mL (3 mL) subcutaneous insulin pen RxNorm: 159105 24 Unit(s) SQ daily INJECT 24 UNITS DAILY OR DIRECTED 201510/05/2016 Inactive please call patient with the colbert Kenalog 40 mg/mL suspension for injection RxNorm: 3892022 1 Milliliter(s) Inj 01/20/2016 01/20/2016 Inactive Sinemet 25 mg-100 mg tablet RxNorm: 575019 Tablet(s) TAKE 1 TABLET BY MOUTH TWICE A DAY IN THE MORNING AND AT SUPPER 11/29/2015 03/22/2016 Inactive Lantus Solostar 100 unit/mL (3 mL) subcutaneous insulin pen RxNorm: 877265 20 Unit(s) SQ daily INJECT 20 UNITS DAILY OR DIRECTED 201501/20/2016 Inactive please call patient with the colbert Sinemet 25 mg-100 mg tablet RxNorm: 502034 Tablet(s) TAKE 1 TABLET BY MOUTH TWICE A DAY IN THE MORNING AND AT SUPPER 11/22/2015 11/28/2015 Inactive Lantus Solostar 100 unit/mL (3 mL) subcutaneous insulin pen RxNorm: 584797 Unit( s) INJECT 20 UNITS DAILY OR DIRECTED 11/22/2015 11/24/2015 Inactive Lantus Solostar 100 unit/mL (3 mL) subcutaneous insulin pen RxNorm: 412375 INJECT 20 UNITS DAILY OR DIRECTED 09/27/2015 11/21/2015 Inactive Lasix 20 mg tablet RxNorm: 360819 TAKE 1 TABLET BY MOUTH ONCE DAILY FOR 1 WEEK AND THEN TAKE 1 TABLET BY MOUTH EVERY 3 DAYS THEREAFTER 09/2512/10/2015 Inactive Lasix 20 mg tablet RxNorm: 985404 1 Tablet(s) PO daily 201509/25/2015 Inactive glipizide 10 mg tablet RxNorm: 546943 1 Tablet(s) BID TAKE 1 TABLET BY MOUTH DAILY. 06/25/2015 06/28/2016 Inactive metformin ER 500 mg tablet,extended release 24 hr RxNorm: 330918 1 Tablet(s) PO BID 04/01/2015 05/05/2016 Inactive lisinopril 20 mg tablet RxNorm: 593126 Tablet(s) TAKE 1 TABLET BY MOUTH TWICE DAILY. 03/25/2015 07/22/2015 Inactive metformin ER 500 mg tablet,extended release 24 hr RxNorm: 268791 1 Tablet(s) PO BID 03/25/2015 03/31/2015 Inactive doxycycline hyclate 100 mg capsule RxNorm: 4289632 1 Capsule(s) PO BID 03/19/2015 04/01/2015 Inactive Sinemet 25 mg-100 mg tablet RxNorm: 557315 TAKE 1 TABLET BY MOUTH TWICE A DAY IN THE MORNING AND AT SUPPER 03/05/201511/20 Inactive doxycycline hyclate 100 mg capsule RxNorm: 8825764 1 Capsule(s) PO BID 02/20/2015 02/26/2015 Inactive metolazone 5 mg tablet RxNorm: 742574 1 Tablet(s) PO daily 07/201403/21/2015 Inactive spironolactone 50 mg tablet RxNorm: 558159 1 Tablet(s) PO daily 02/11/2015 01/02/2016 Inactive Efudex 5 % topical cream RxNorm: 191228 1 TOP BID 01/28/2015 02/10/2015 Inactive potassium chloride ER 10 mEq tablet,extended release(part/ cryst) RxNorm: 0757645 1 Tablet(s) PO daily x 1week then three times weekly with the lasix. 01/28/2015 05/27/2015 Inactive Lasix 20 mg tablet RxNorm: 209022 1 Tablet(s) PO daily x 1 week, then every three days thereafter 01/28/20152015 Inactive lisinopril 20 mg tablet RxNorm: 630149 Tablet(s) TAKE 1 TABLET BY MOUTH TWICE DAILY. 11/23/2014 03/22/2015 Inactive lisinopril 20 mg tablet RxNorm: 552697 TAKE 1 TABLET BY MOUTH TWICE DAILY. 11/22/2014 11/22/2014 Inactive Sinemet 25 mg-100 mg tablet RxNorm: 021121 1 Tablet(s) PO BID TAKE 1 TABLET BY MOUTH TWICE A DAY IN THE MORNING AND AT SUPPER 10/01/2014 03/04/2015 Inactive [ SAVINGS FOR UNINSURED PATIENTS -- BIN:016267, PCN: ASPPAULO1, Group: [id number], ID# [id number], Process claim through ETHERA, for questions: . THIS IS NOT INSURANCE.] glipizide 10 mg tablet RxNorm: 782269 1 Tablet(s) BID TAKE 1 TABLET BY MOUTH DAILY. 10/01/2014 06/24/2015 Inactive glipizide 10 mg tablet RxNorm: 269417 Tablet(s) daily TAKE 1 TABLET BY MOUTH DAILY. 08/06/2014 09/30/2014 Inactive Lantus Solostar 100 unit/mL (3 mL) subcutaneous insulin pen RxNorm: 150089 20 Unit(s) SQ daily 07/11/2014 09/26/2015 Inactive [SAVINGS FOR UNINSURED PATIENTS -- BIN:353518, PCN: ASPROD1, Group: [id number], ID# [id number], Process claim through ETHERA, for questions: . THIS IS NOT INSURANCE.] metformin ER 500 mg tablet,extended release 24 hr RxNorm: 188515 1 Tablet(s) PO BID 07/10/2014 03/24/2015 Inactive lisinopril 20 mg tablet RxNorm: 818812 Tablet(s) TAKE 1 TABLET BY MOUTH TWICE DAILY. 07/10/2014 11/21/2014 Inactive Lantus Solostar 100 unit/mL (3 mL) subcutaneous insulin pen RxNorm: 711177 20 Unit(s) SQ daily 05/30/2014 07/10/2014 Inactive [SAVINGS FOR UNINSURED PATIENTS -- BIN:299518, PCN: ASPROD1, Group: [id number], ID# [id number], Process claim through MedImpact, for questions: . THIS IS NOT INSURANCE.] Sinemet 25 mg-100 mg tablet RxNorm: 125772 Tablet(s) TAKE 1 TABLET BY MOUTH TWICE A DAY IN THE MORNING AND AT SUPPER 05/30/2014 09/30/2014 Inactive [SAVINGS FOR UNINSURED PATIENTS -- BIN:505954, PCN: ASPROD1, Group: [id number], ID# [id number], Process claim through MedImpact, for questions: . THIS IS NOT INSURANCE.] lisinopril 20 mg tablet RxNorm: 130047 TAKE 1 TABLET BY MOUTH TWICE DAILY. 04/09/2014 04/08/2014 Inactive glipizide 10 mg tablet RxNorm: 798131 TAKE 1 TABLET BY MOUTH TWICE DAILY. 04/09/2014 08/05/2014 Inactive glipizide 10 mg tablet RxNorm: 666436 TAKE 1 TABLET BY MOUTH TWICE DAILY. 04/09/2014 04/08/2014 Inactive lisinopril 20 mg tablet RxNorm: 860177 TAKE 1 TABLET BY MOUTH TWICE DAILY. 04/09/2014 07/09/2014 Inactive lisinopril 20 mg tablet RxNorm: 226393 Tablet(s) TAKE ONE TABLET BY MOUTH TWICE DAILY 04/06/2014 04/08/2014 Inactive [SAVINGS FOR UNINSURED PATIENTS -- BIN:070796 , PCN: ASPROD1, Group: [id number], ID# [id number], Process claim through MedImpact, for questions: . THIS IS NOT INSURANCE.] glipizide 10 mg tablet RxNorm: 360350 1 Tablet(s) PO BID 201304/08/2014 Inactive [SAVINGS FOR UNINSURED PATIENTS -- BIN:040597, PCN: ASPROD1, Group: [id number], ID # [id number], Process claim through ETHERA, for questions: . THIS IS NOT INSURANCE.] pravastatin 10 mg tablet RxNorm: 442043 TAKE ONE TABLET BY MOUTH EVERY DAY 02/26/2014 05/26/2014 Inactive Sinemet 25 mg-100 mg tablet RxNorm: 804807 TAKE 1 TABLET BY MOUTH TWICE A DAY IN THE MORNING AND AT SUPPER 01/26/201401/25 Inactive Sinemet 25 mg-100 mg tablet RxNorm: 250695 Tablet(s) TAKE 1 TABLET BY MOUTH TWICE A DAY IN THE MORNING AND AT SUPPER 01/26/2014 05/29/2014 Inactive [SAVINGS FOR UNINSURED PATIENTS -- BIN:420262, PCN: ASPROD1, Group: [id number], ID# [id number], Process claim through ETHERA, for questions: . THIS IS NOT INSURANCE.] Sinemet 25 mg-100 mg tablet RxNorm: 771546 TAKE 1 TABLET BY MOUTH TWICE A DAY IN THE MORNING AND AT SUPPER 01/26/201401/25 Inactive Sinemet 25 mg-100 mg tablet RxNorm: 715386 TAKE 1 TABLET BY MOUTH TWICE A DAY IN THE MORNING AND AT SUPPER 01/26/201401/25 Inactive pantoprazole 40 mg tablet,delayed release RxNorm: 320863 TAKE 1 TABLET DAILY 01/25/2014 10/07/2016 Inactive finasteride 5 mg tablet RxNorm: 081926 1 Tablet(s) PO daily 12/201309/30/2014 Inactive [SAVINGS FOR UNINSURED PATIENTS -- BIN:115123, PCN: ASPROD1, Group: [id number] , ID# [id number], Process claim through ETHERA, for questions: . THIS IS NOT INSURANCE.] sucralfate 100 mg/mL oral suspension RxNorm: 542378 10 Milliliter(s) PO QID 01/23/2014 09/30/2014 Inactive dispense qs x 1 month lisinopril 20 mg tablet RxNorm: 979378 TAKE ONE TABLET BY MOUTH TWICE DAILY 12/27/2013 03/26/2014 Inactive pantoprazole 40 mg tablet,delayed release RxNorm: 634281 1 Tablet(s) PO daily 12/26/2013 12/25/2013 Inactive [SAVINGS FOR UNINSURED PATIENTS -- BIN:906665, PCN: ASPROD1, Group: [id number], ID# [id number], Process claim through MedImpact, for questions: . THIS IS NOT INSURANCE.] pantoprazole 40 mg tablet,delayed release RxNorm: 719946 1 Tablet(s) PO daily 12/26/2013 12/20/2014 Inactive [SAVINGS FOR UNINSURED PATIENTS -- BIN:284361, PCN: ASPROD1, Group: [id number], ID# [id number], Process claim through MedImpact, for questions: . THIS IS NOT INSURANCE.] gemfibrozil 600 mg tablet RxNorm: 905842 1 Tablet(s) PO BID 11/201310/23/2013 Inactive gemfibrozil 600 mg tablet RxNorm: 957894 1 Tablet(s) PO BID 11/201309/30/2014 Inactive [SAVINGS FOR UNINSURED PATIENTS -- BIN:079518, PCN: ASPROD1, Group: [id number] , ID# [id number], Process claim through MedImpact, for questions: . THIS IS NOT INSURANCE.] finasteride 5 mg tablet RxNorm: 339259 1 Tablet(s) PO daily 04/201301/24/2014 Inactive [SAVINGS FOR UNINSURED PATIENTS -- BIN:059605, PCN: ASPROD1, Group: [id number] , ID# [id number], Process claim through MedImpact, for questions: . THIS IS NOT INSURANCE.] Lantus Solostar 100 unit/mL (3 mL) subcutaneous insulin pen RxNorm: 576707 20 Unit(s) SQ daily 10/09/2013 05/29/2014 Inactive [SAVINGS FOR UNINSURED PATIENTS -- BIN:217924, PCN: ASPROD1, Group: [id number], ID# [id number], Process claim through MedImpact, for questions: . THIS IS NOT INSURANCE.] glipizide 10 mg tablet RxNorm: 037202 1 Tablet(s) PO daily 04/05/2014 Inactive [SAVINGS FOR UNINSURED PATIENTS -- BIN:032342, PCN: ASPROD1, Group: [id number] , ID# [id number], Process claim through ETHERA, for questions: . THIS IS NOT INSURANCE.] Lantus Solostar 100 unit/mL (3 mL) subcutaneous insulin pen RxNorm: 943368 20 Unit(s) SQ daily 07/18/2013 10/08/2013 Inactive Sinemet 25 mg-100 mg tablet RxNorm: 006481 1 Tablet(s) PO BID one pill in morning , one at supper 07/10/2013 01/25/2014 Inactive Sinemet 25 mg-100 mg tablet RxNorm: 238658 1 Tablet(s) PO BID one pill in morning , one at supper 04/24/2013 07/09/2013 Inactive metformin ER 500 mg tablet,extended release 24 hr RxNorm: 852924 1 Tablet(s) PO BID 04/24/2013 04/18/2014 Inactive glipizide 10 mg tablet RxNorm: 812877 1 Tablet(s) PO daily 09/201310/08/2013 Inactive lisinopril 20 mg tablet RxNorm: 866022 1 Tablet(s) PO BID 04/2410/20/2013 Inactive pravastatin 10 mg tablet RxNorm: 403068 1 Tablet(s) PO daily 10/20/2013 Inactive Lantus Solostar 100 unit/mL (3 mL) subcutaneous insulin pen RxNorm: 904678 20 Unit(s) SQ daily 04/24/2013 07/17/2013 Inactive glipizide 10 mg tablet RxNorm: 246515 1 Tablet(s) PO daily 05/201304/23/2013 Inactive glipizide 10 mg tablet RxNorm: 154656 1 Tablet(s) PO daily 05/201204/19/2013 Inactive Lantus Solostar 100 unit/mL (3 mL) subcutaneous insulin pen RxNorm: 782363 16 Unit(s) SQ daily 03/20/2013 04/23/2013 Inactive Sinemet 25 mg-100 mg tablet RxNorm: 537384 1 Tablet(s) PO BID one pill in morning , one at supper 01/20/2013 04/23/2013 Inactive Lantus Solostar 100 unit/mL (3 mL) subcutaneous insulin pen RxNorm: 402130 16 Unit(s) SQ daily 01/19/2013 01/25/2013 Inactive Sinemet 25 mg-100 mg tablet RxNorm: 282664 1 Tablet(s) PO BID one pill in morning , one at supper 01/19/2013 01/19/2013 Inactive glipizide 10 mg tablet RxNorm: 776325 1 Tablet(s) PO BID 201203/19/2013 Inactive Lantus Solostar 100 unit/mL (3 mL) Sub-Q Insulin Pen RxNorm: 542172 12 Unit(s) SQ daily 12/21/2012 01/18/2013 Inactive lisinopril 20 mg tablet RxNorm: 578421 1 Tablet(s) PO BID 12/0804/23/2013 Inactive metformin ER 500 mg tablet,extended release 24 hr RxNorm: 798586 1 Tablet(s) PO BID 11/30/2012 04/23/2013 Inactive Lantus Solostar 100 unit/mL (3 mL) Sub-Q Insulin Pen RxNorm: 934229 5 Unit(s) SQ daily 11/30/2012 12/07/2012 Inactive FINASTERIDE TAB 5MG RxNorm: 10/03/2012 Inactive lisinopril 20 mg tablet RxNorm: 250298 1 Tablet(s) PO BID 09/0812/06/2012 Inactive glipizide 10 mg tablet RxNorm: 759135 1 Tablet(s) PO BID 201212/30/2012 Inactive metronidazole 500 mg tablet RxNorm: 544533 1 Tablet(s) PO TID 05/30/2012 06/08/2012 Inactive metformin ER 500 mg tablet,extended release 24 hr RxNorm: 691267 2 Tablet(s) PO daily 04/22/2012 11/29/2012 Inactive metformin ER 500 mg tablet,extended release 24 hr RxNorm: 446310 2 Tablet(s) PO daily 04/21/2012 04/21/2012 Inactive ketoconazole 2 % Topical Cream RxNorm: 276233 1 Application TOP BID 04/14/2012 05/04/2012 Inactive ketoconazole 2 % Shampoo RxNorm: 555027 1 Application TOP every other day apply to feet, leave on for 5 minutes, then rinse. 04/14/2012 04/27/2012 Inactive clotrimazole 1 % Topical Cream RxNorm: 011155 1 Application TOP BID 02/22/2012 04/03/2012 Inactive glipizide 10 mg tablet RxNorm: 968366 1 Tablet(s) PO BID 201106/18/2012 Inactive lisinopril 20 mg tablet RxNorm: 269239 1 Tablet(s) PO BID 09/0108/26/2012 Inactive metformin ER 500 mg tablet,extended release 24 hr RxNorm: 366610 2 Tablet(s) PO daily 08/10/2011 04/20/2012 Inactive metformin ER 1,000 mg 24 hr Tab Ctrl Rel RxNorm: 900405 1 Tablet(s) PO daily 07/28/2011 08/09/2011 Inactive Kombiglyze XR 5 mg-1,000 mg 24 hr Tab RxNorm: 7646534 1 Tablet(s) PO daily 07/28/2011 07/27/2011 Inactive Kombiglyze XR 5 mg-1,000 mg 24 hr Tab RxNorm: 6426283 1 Tablet(s) PO daily 07/28/2011 07/28/2011 Inactive glipizide 10 mg tablet RxNorm: 336983 1 Tablet(s) PO BID 201107/27/2011 Inactive glipizide 10 mg Tab RxNorm: 108662 1 Tablet(s) PO BID 201106/16/2011 Inactive glipizide 10 mg Tab RxNorm: 657385 1 Tablet(s) PO BID 201006/15/2011 Inactive glipizide 10 mg Tab RxNorm: 834210 1 Tablet(s) PO BID 201004/01/2011 Inactive glipizide 10 mg Tab RxNorm: 273580 Tablet(s) PO BID 201003/31/2011 Inactive Calcium + Vitamin D 600 mg calcium-200 unit tablet RxNorm: 820287 1 Tablet(s) PO BID No Start Date Active pantoprazole 40 mg tablet,delayed release RxNorm: 252150 1 Tablet(s) PO daily No Start Date 12/25/2013 Inactive Sinemet 25 mg-100 mg tablet RxNorm: 943301 1/2 Tablet(s) PO BID one pill in morning, one at supper No Start Date 01/18 Inactive levothyroxine 100 mcg tablet RxNorm: 797077 1 Tablet(s) PO daily No Start Date 10/04/2016 Inactive lisinopril 20 mg Tab RxNorm: 809498 1 Tablet(s) PO BID No Start Date 09/01/2011 Inactive hydrocodone 5 mg-acetaminophen 325 mg tablet RxNorm: 626185 1-2 Tablet(s) PO Q6- 8H No Start Date 01/20/2016 Inactive pravastatin 10 mg tablet RxNorm: 561240 1 Tablet(s) PO daily No Start Date 04/23/2013 Inactive Medication Administered Medication Codes Instructions Start Date Status Kenalog 40 mg/mL suspension for injection RxNorm: 3918672 1Milliliter 07/30/2016 No longer Active Kenalog 40 mg/mL suspension for injection RxNorm: 2838121 1Milliliter 01/20/2016 No longer Active Immunizations Vaccine [...] Code Item Item Code Result Date %Hba1C Yxa242 % HbA1c 95875-9 7.0 % 05/13/2017 %Hba1C Imh569 Gluc [address] 154 mg/dL 05/13/2017 Free T4 Qfk122 FREE T4 1.29 ng/dL 05/13/2017 Tsh Ord6 TSH (3rd IS) 4.14 uIU/mL 05/13/2017 Tsh Ord6 hTSH II 9.43 uIU/mL 02/02/2017 Comp Metabolic Slw958 NA 134 mEq/L 02/02/2017 Comp Metabolic Hll885 K 4.4 mEq/L 02/02/2017 Comp Metabolic Big174 CL 99 mEq/L 02/02/2017 Comp Metabolic Ehs542 CO2 26.0 mEq/L 02/02/2017 Comp Metabolic Bvl428 ANION GAP 13 02/02/2017 Comp Metabolic Ouw520 GLUCOSE 256 mg/dL 02/02/2017 Comp Metabolic Spq968 Creat 1.6 mg/dL 02/02/2017 Comp Metabolic Zxn575 eGFR 45 ml/min/1.73m2 02/02/2017 Comp Metabolic Wjf702 BUN 26 mg/dL 02/02/2017 Comp Metabolic Qig449 B/C Ratio 16.6 Ratio 02/02/2017 Comp Metabolic Msz931 CALCIUM 8.7 mg/dL 02/02/2017 Comp Metabolic Rct673 ALK PHOS 63 U/L 02/02/2017 Comp Metabolic Dim824 AST(SGOT) 11 U/L 02/02/2017 Comp Metabolic Dgo711 ALT(SGPT) 9 U/L 02/02/2017 Comp Metabolic Zoa521 BILI T 0.5 mg/dL 02/02/2017 Comp Metabolic Jlh267 ALBUMIN 3.7 g/dL 02/02/2017 Comp Metabolic Cjr726 TPRO 6.1 g/dL 02/02/2017 Comp Metabolic Bkk183 GLOB 2.4 g/dL 02/02/2017 Comp Metabolic Dhl848 A/G Ratio 1.6 Ratio 02/02/2017 Comp Metabolic Nxf677 Osmo 282 mOsmo 02/02/2017 %Hba1C Yud833 % HbA1c 11139-2 7.5 % 02/02/2017 %Hba1C Aiq623 Gluc Ave 169 mg/dL 02/02/2017 Free T4 Mce747 FREE T4 1.23 ng/dL 02/02/2017 Cbc With [...] 93.0 fl 02/02/2017 Cbc With Differential Ord2 Placer% 9.6 % 02/02/2017 Cbc With Differential Ord2 [...] 2.61 K/ul 02/02/2017 Cbc With Differential Ord2 Placer ABS# 0.8 K/ul 02/02/2017 Cbc With Differential Ord2 Eos ABS# 0.2 K/ul 02/02/2017 Cbc With Differential Ord2 Baso ABS# 0.1 K/ul 02/02/2017 Total T3 Ord42 TT3 0.59 ng/ml 07/14/2016 Free T4 Vdm499 FREE T4 1.14 ng/dL 07/14/2016 Cbc With [...] 34.9 % 06/22/2016 Cbc With Differential Ord2 Placer% 9.9 % 06/22/2016 Cbc With Differential Ord2 [...] 2.41 K/ul 06/22/2016 Cbc With Differential Ord2 Placer ABS# 0.7 K/ul 06/22/2016 Cbc With Differential Ord2 Eos ABS# 0.2 K/ul 06/22/2016 Cbc With Differential Ord2 Baso ABS# 0.0 K/ul 06/22/2016 Comp Metabolic Pkx686 NA 134 mEq/L 06/22/2016 Comp Metabolic Fru779 K 4.3 mEq/L 06/22/2016 Comp Metabolic Ica905 CL 100 mEq/L 06/22/2016 Comp Metabolic Ele293 CO2 26.0 mEq/L 06/22/2016 Comp Metabolic Ryt927 ANION GAP 12 06/22/2016 Comp Metabolic Aih532 GLUCOSE 222 mg/dL 06/22/2016 Comp Metabolic Zvc518 Creat 1.5 mg/dL 06/22/2016 Comp Metabolic Plq526 eGFR 49 ml/min/1.73m2 06/22/2016 Comp Metabolic Gub327 BUN 23 mg/dL 06/22/2016 Comp Metabolic Kth860 B/C Ratio 15.9 Ratio 06/22/2016 Comp Metabolic Czl942 CALCIUM 9.0 mg/dL 06/22/2016 Comp Metabolic Spj323 ALK PHOS 59 U/L 06/22/2016 Comp Metabolic Tyd874 AST(SGOT) 13 U/L 06/22/2016 Comp Metabolic Pjo863 ALT(SGPT) 11 U/L 06/22/2016 Comp Metabolic Sga522 BILI T 0.5 mg/dL 06/22/2016 Comp Metabolic Sei498 ALBUMIN 3.8 g/dL 06/22/2016 Comp Metabolic Eqz565 TPRO 6.2 g/dL 06/22/2016 Comp Metabolic Gmh166 GLOB 2.4 g/dL 06/22/2016 Comp Metabolic Xte846 A/G Ratio 1.6 Ratio 06/22/2016 Comp Metabolic Nnt748 Osmo 279 mOsmo 06/22/2016 Tsh Ord6 hTSH II 0.44 uIU/mL 06/22/2016 Comp Metabolic Exn274 NA 134 mEq/L 04/27/2016 Comp Metabolic Lqj921 K 4.6 mEq/L 04/27/2016 Comp Metabolic Hxl145 CL 99 mEq/L 04/27/2016 Comp Metabolic Dwr139 CO2 27.0 mEq/L 04/27/2016 Comp Metabolic Bui719 ANION GAP 13 04/27/2016 Comp Metabolic Vcr985 GLUCOSE 178 mg/dL 04/27/2016 Comp Metabolic Vxo899 Creat 1.4 mg/dL 04/27/2016 Comp Metabolic Olt851 eGFR 53 ml/min/1.73m2 04/27/2016 Comp Metabolic Qjd802 BUN 24 mg/dL 04/27/2016 Comp Metabolic Dls190 B/C Ratio 17.5 Ratio 04/27/2016 Comp Metabolic Bpj573 CALCIUM 9.1 mg/dL 04/27/2016 Comp Metabolic Gcl049 ALK PHOS 72 U/L 04/27/2016 Comp Metabolic Qoz128 AST(SGOT) 16 U/L 04/27/2016 Comp Metabolic Nof006 ALT(SGPT) 12 U/L 04/27/2016 Comp Metabolic Cth946 BILI T 0.6 mg/dL 04/27/2016 Comp Metabolic Swu223 ALBUMIN 4.1 g/dL 04/27/2016 Comp Metabolic Mxs155 TPRO 6.8 g/dL 04/27/2016 Comp Metabolic Uxz326 GLOB 2.7 g/dL 04/27/2016 Comp Metabolic Pcu168 A/G Ratio 1.6 Ratio 04/27/2016 Comp Metabolic Oyk597 Osmo 277 mOsmo 04/27/2016 Cbc With Differential [...] 33.1 % 04/27/2016 Cbc With Differential Ord2 Placer% 9.7 % 04/27/2016 Cbc With Differential Ord2 [...] 2.89 K/ul 04/27/2016 Cbc With Differential Ord2 Placer ABS# 0.9 K/ul 04/27/2016 Cbc With Differential Ord2 Eos ABS# 0.2 K/ul 04/27/2016 Cbc With Differential Ord2 Baso ABS# 0.0 K/ul 04/27/2016 %Hba1C Xkk660 % HbA1c 69631-7 7.2 % 04/27/2016 %Hba1C Igr045 Gluc Ave 160 mg/dL 04/27/2016 Cbc With [...] 31.0 pg 01/21/2016 Cbc With Differential Ord2 Placer% 8.9 % 01/21/2016 Cbc With Differential Ord2 [...] 1.91 K/ul 01/21/2016 Cbc With Differential Ord2 Placer ABS# 0.6 K/ul 01/21/2016 Cbc With Differential Ord2 Eos ABS# 0.2 K/ul 01/21/2016 Cbc With Differential Ord2 Baso ABS# 0.0 K/ul 01/21/2016 Comp Metabolic Zqa728 NA 134 mEq/L 01/21/2016 Comp Metabolic Cxn441 K 5.0 mEq/L 01/21/2016 Comp Metabolic Blj535 CL 99 mEq/L 01/21/2016 Comp Metabolic Glg221 CO2 26.0 mEq/L 01/21/2016 Comp Metabolic Lnb807 ANION GAP 14 01/21/2016 Comp Metabolic Rfk284 GLUCOSE 260 mg/dL 01/21/2016 Comp Metabolic Pjp055 Creat 1.5 mg/dL 01/21/2016 Comp Metabolic Zwx251 eGFR 50 ml/min/1.73m2 01/21/2016 Comp Metabolic Brt847 BUN 18 mg/dL 01/21/2016 Comp Metabolic Tqj295 B/C Ratio 12.4 Ratio 01/21/2016 Comp Metabolic Xau233 CALCIUM 8.8 mg/dL 01/21/2016 Comp Metabolic Dow730 ALK PHOS 68 U/L 01/21/2016 Comp Metabolic Trp341 AST(SGOT) 16 U/L 01/21/2016 Comp Metabolic Qwr592 ALT(SGPT) 16 U/L 01/21/2016 Comp Metabolic Cgm145 BILI T 0.5 mg/dL 01/21/2016 Comp Metabolic Svz490 ALBUMIN 3.8 g/dL 01/21/2016 Comp Metabolic Fml283 TPRO 6.3 g/dL 01/21/2016 Comp Metabolic Mwi915 GLOB 2.5 g/dL 01/21/2016 Comp Metabolic Lpx769 A/G Ratio 1.5 Ratio 01/21/2016 Comp Metabolic Vvq705 Osmo 279 mOsmo 01/21/2016 %Hba1C Lsk585 % HbA1c 75530-5 7.4 % 01/21/2016 %Hba1C Jpr382 Gluc Ave 166 mg/dL 01/21/2016 Metabolic Ord15 [...] Qnt Crqnt CRP 1.5 mg/dl 09/17/2015 %Hba1C Hua405 % HbA1c 00543-3 7.1 % 09/17/2015 %Hba1C Laq077 Gluc Ave 157 mg/dL 09/17/2015 Cbc With [...] 31.7 pg 08/06/2015 Cbc With Differential Ord2 Placer% 9.6 % 08/06/2015 Cbc With Differential Ord2 [...] 2.90 K/ul 08/06/2015 Cbc With Differential Ord2 Placer ABS# 0.7 K/ul 08/06/2015 Cbc With Differential Ord2 Eos ABS# 0.2 K/ul 08/06/2015 Cbc With Differential Ord2 Baso ABS# 0.0 K/ul 08/06/2015 Cbc With Differential Ord2 New Analyzer Notice Please note new ref ranges starting 05-01-2015 due to implemntation of new five part differential hematolgy analyzer. 08/06/2015 Comp Metabolic Qay838 NA 132 mEq/L 08/06/2015 Comp Metabolic Tyg527 K 4.6 mEq/L 08/06/2015 Comp Metabolic Gla315 CL 98 mEq/L 08/06/2015 Comp Metabolic Bwz432 CO2 25.0 mEq/L 08/06/2015 Comp Metabolic Lyf956 ANION GAP 14 08/06/2015 Comp Metabolic Tie616 GLUCOSE 170 mg/dL 08/06/2015 Comp Metabolic Zap953 Creat 1.5 mg/dL 08/06/2015 Comp Metabolic Iey622 eGFR 46 ml/min/1.73m2 08/06/2015 Comp Metabolic Hnf718 BUN 21 mg/dL 08/06/2015 Comp Metabolic Ime743 B/C Ratio 13.6 Ratio 08/06/2015 Comp Metabolic Ybf734 CALCIUM 8.9 mg/dL 08/06/2015 Comp Metabolic Jdn948 ALK PHOS 60 U/L 08/06/2015 Comp Metabolic Iif877 AST(SGOT) 16 U/L 08/06/2015 Comp Metabolic Gpy191 ALT(SGPT) 18 U/L 08/06/2015 Comp Metabolic Lsm699 BILI T 0.4 mg/dL 08/06/2015 Comp Metabolic Iby521 ALBUMIN 3.8 g/dL 08/06/2015 Comp Metabolic Jvi222 TPRO 6.3 g/dL 08/06/2015 Comp Metabolic Acp491 GLOB 2.5 g/dL 08/06/2015 Comp Metabolic Xld537 A/G Ratio 1.6 Ratio 08/06/2015 Comp Metabolic Kyk138 Osmo 271 mOsmo 08/06/2015 Tsh Ord6 hTSH II 0.95 uIU/mL 06/17/2015 Free T4 Bsm710 FREE T4 1.08 ng/dL 06/17/2015 Metabolic Ord15 [...] Ord15 CALCIUM 9.0 mg/dL 05/06/2015 Comp Metabolic Snt017 NA 143 mEq/L 03/04/2015 Comp Metabolic Ieb534 K 4.5 mEq/L 03/04/2015 Comp Metabolic Vnt381 CL 92 mEq/L 03/04/2015 Comp Metabolic Dxg983 CO2 24.0 mEq/L 03/04/2015 Comp Metabolic Njp521 ANION GAP 32 03/04/2015 Comp Metabolic Kmw716 GLUCOSE 72 mg/dL 03/04/2015 Comp Metabolic Cba650 Creat 1.5 mg/dL 03/04/2015 Comp Metabolic Afr275 eGFR 48 ml/min/1.73m2 03/04/2015 Comp Metabolic Dzk161 BUN 27 mg/dL 03/04/2015 Comp Metabolic Dig463 B/C Ratio 18.0 Ratio 03/04/2015 Comp Metabolic Mix761 CALCIUM 9.1 mg/dL 03/04/2015 Comp Metabolic Vwo993 ALK PHOS 58 U/L 03/04/2015 Comp Metabolic Ybv561 AST(SGOT) 16 U/L 03/04/2015 Comp Metabolic Vmr811 ALT(SGPT) 13 U/L 03/04/2015 Comp Metabolic Rib079 BILI T 0.6 mg/dL 03/04/2015 Comp Metabolic Zwb227 ALBUMIN 4.0 g/dL 03/04/2015 Comp Metabolic Eih675 TPRO 6.6 g/dL 03/04/2015 Comp Metabolic Sbq965 GLOB 2.6 g/dL 03/04/2015 Comp Metabolic Ght990 A/G Ratio 1.6 Ratio 03/04/2015 Comp Metabolic Wtm235 Osmo 289 mOsmo 03/04/2015 %Hba1C Wmc423 % HbA1c 22552-6 7.3 % 01/28/2015 %Hba1C Wge921 Gluc Ave 163 mg/dL 01/28/2015 MICRALUR 3992401 MICRL MG/L 13.2 MG/L 10/01/2014 MICRALUR 4088006 XM.ALB/CRE 48.9 MG/GCR 10/01/2014 MICRALUR 7661391 CREAT MG/D 27 MG/DL 10/01/2014 MICRALUR 1074873 CRE/100 0.27 G/L 10/01/2014 A1C HPLC 9974686 A1C HPLC 62784-1 7.3 % 10/01/2014 TSH 8675705 TSH 0.423 uIU/ML 10/01/2014 TSH 0710413 TSH 0.612 uIU/ML 10/18/2013 A1C HPLC 5846344 A1C HPLC 39217-4 6.8 % 10/18/2013 GFR CALC 7868513 GFR AA >60 ML/MIN 10/18/2013 GFR CALC 0571239 GFR NON-AA 52.0L ML/MIN 10/18/2013 LIPID GRP HDL TEST 30 MG/DL 10/18/2013 LIPID GRP TRIG 425 MG/DL 10/18/2013 LIPID GRP TEST LDL HI TRIG MG/DL 10/18/2013 LIPID GRP CHOL 185 MG/DL 10/18/2013 LIPID GRP RCHOL/HDL 6.17 RATIO 10/18/2013 MICRALUR MICRL MG/L 15.6 MG/L 10/18/2013 MICRALUR XM.ALB/CRE 9.2 MG/GCR 10/18/2013 MICRALUR CREAT MG/D 169 MG/DL 10/18/2013 MICRALUR 9502042 CRE/100 1.69 G/L 10/18/2013 CHEM 14 9337061 AST 20 U/L 10/18/2013 CHEM 14 5236485 ALT 13 IU/L 10/18/2013 CHEM 14 6213817 BUN 27 MG/DL 10/18/2013 CHEM 14 9033635 ALBUMIN 4.2 GM/DL 10/18/2013 CHEM 14 5748846 CHLORIDE 100 MMOL/L 10/18/2013 CHEM 14 2691983 BILI TOT 0.5 MG/DL 10/18/2013 CHEM 14 7523141 ALK PHOS 60 U/L 10/18/2013 CHEM 14 5225785 SODIUM 131 MMOL/L 10/18/2013 CHEM 14 5563904 CREATININE 1.32 MG/DL 10/18/2013 CHEM 14 8584002 CALCIUM 9.2 MG/DL 10/18/2013 CHEM 14 7218501 POTASSIUM 4.7 MMOL/L 10/18/2013 CHEM 14 3829253 PROT TOT 7.7 GM/DL 10/18/2013 CHEM 14 4376344 GLUCOSE 140 MG/DL 10/18/2013 CHEM 14 7383115 BICARB 24 MMOL/L 10/18/2013 CHEM 14 6080819 ANION GAP 7 MEQ/L 10/18/2013 PSA EQ 6627289 PSA EQ 7.79 NG/ML 10/18/2013 CBC 9730346 WBC 6.6 10e9/L 10/18/2013 CBC 9771697 RBC 4.58 10e12/L 10/18/2013 CBC 4455748 HGB 14.6 g/dL 10/18/2013 CBC 4452479 HCT DET 42.8 % 10/18/2013 CBC 8464182 MCV 93.4 fL 10/18/2013 CBC 3833897 MCH 31.9 pg 10/18/2013 CBC 9574796 MCHC 34.1 g/dL 10/18/2013 CBC 6678436 PLT 172 10e9/L 10/18/2013 CBC 0916790 MPV 9.3 fL 10/18/2013 CBC 6545204 JAYESH % 55.4 % 10/18/2013 CBC 8884597 LY % 33.0 % 10/18/2013 CBC 3756719 MON % 8.8 % 10/18/2013 CBC 0273037 EOS % 2.6 % 10/18/2013 CBC 8053124 BASO % 0.2 % 10/18/2013 CBC 7533047 RDW 12.7 % 10/18/2013 CBC 8630479 ABS JAYESH 3.66 10e9/L 10/18/2013 CBC 0027018 ABS LYMPH 2.18 10e9/L 10/18/2013 CBC 0468698 ABS MONO 0.58 10e9/L 10/18/2013 CBC 1806497 ABS EOS 0.17 10e9/L 10/18/2013 CBC 3328950 ABS BASO 0.01 10e9/L 10/18/2013 CBC 9709021 RDW-SD 42.6 fL 10/18/2013 TSH 8475136 TSH 1.257 uIU/ML 05/05/2013 CHEM 14 2589996 AST 15 U/L 05/05/2013 CHEM 14 5977642 ALT 13 IU/L 05/05/2013 CHEM 14 0119523 BUN 22 MG/DL 05/05/2013 CHEM 14 5901534 ALBUMIN 4.2 GM/DL 05/05/2013 CHEM 14 3179046 CHLORIDE 104 MMOL/L 05/05/2013 CHEM 14 4853400 BILI TOT 0.6 MG/DL 05/05/2013 CHEM 14 2516837 ALK PHOS 52 U/L 05/05/2013 CHEM 14 3709877 SODIUM 137 MMOL/L 05/05/2013 CHEM 14 3595221 CREATININE 1.25 MG/DL 05/05/2013 CHEM 14 7693279 CALCIUM 9.1 MG/DL 05/05/2013 CHEM 14 4172106 POTASSIUM 5.0 MMOL/L 05/05/2013 CHEM 14 2594972 PROT TOT 6.7 GM/DL 05/05/2013 CHEM 14 2937752 GLUCOSE 142 MG/DL 05/05/2013 CHEM 14 1338497 BICARB 27 MMOL/L 05/05/2013 CHEM 14 5912498 ANION GAP 6 MEQ/L 05/05/2013 GFR CALC 1898838 GFR AA >60 ML/MIN 05/05/2013 GFR CALC 5519680 GFR NON-AA 56.0L ML/MIN 05/05/2013 CBC 9589539 WBC 6.1 10e9/L 05/05/2013 CBC 9130588 RBC 4.74 10e12/L 05/05/2013 CBC 1791655 HGB 14.7 g/dL 05/05/2013 CBC 6777902 HCT DET 43.6 % 05/05/2013 CBC 3879156 MCV 92.0 fL 05/05/2013 CBC 6340229 MCH 31.0 pg 05/05/2013 CBC 7423900 MCHC 33.7 g/dL 05/05/2013 CBC 3049727 PLT 168 10e9/L 05/05/2013 CBC 6242555 MPV 9.3 fL 05/05/2013 CBC 3638160 JAYESH % 53.2 % 05/05/2013 CBC 3429556 LY % 35.3 % 05/05/2013 CBC 9065053 MON % 8.7 % 05/05/2013 CBC 1405959 EOS % 2.5 % 05/05/2013 CBC 4419741 BASO % 0.3 % 05/05/2013 CBC 2625589 RDW 13.5 % 05/05/2013 CBC 3964240 ABS JAYESH 3.25 10e9/L 05/05/2013 CBC 6080592 ABS LYMPH 2.15 10e9/L 05/05/2013 CBC 7721248 ABS MONO 0.53 10e9/L 05/05/2013 CBC 7413602 ABS EOS 0.15 10e9/L 05/05/2013 CBC 4958741 ABS BASO 0.02 10e9/L 05/05/2013 CBC 1506623 RDW-SD 44.8 fL 05/05/2013 A1C HPLC 9917400 A1C HPLC 00420-1 6.4 % 05/05/2013 LIPID GRP HDL TEST 32 MG/DL 05/05/2013 LIPID GRP TRIG 170 MG/DL 05/05/2013 LIPID GRP TEST LDL 73 MG/DL 05/05/2013 LIPID GRP CHOL 139 MG/DL 05/05/2013 LIPID GRP RCHOL/HDL 4.34 RATIO 05/05/2013 CHEM 14 3925432 AST 17 U/L 11/25/2012 CHEM 14 4466558 ALT 21 IU/L 11/25/2012 CHEM 14 3260490 BUN 20 MG/DL 11/25/2012 CHEM 14 4626112 ALBUMIN 4.4 GM/DL 11/25/2012 CHEM 14 6921434 CHLORIDE 99 MMOL/L 11/25/2012 CHEM 14 9482434 BILI TOT 0.6 MG/DL 11/25/2012 CHEM 14 2660955 ALK PHOS 50 U/L 11/25/2012 CHEM 14 8597527 SODIUM 129 MMOL/L 11/25/2012 CHEM 14 7428658 CREATININE 1.20 MG/DL 11/25/2012 CHEM 14 1379808 CALCIUM 9.2 MG/DL 11/25/2012 CHEM 14 1137430 POTASSIUM 5.1 MMOL/L 11/25/2012 CHEM 14 3030377 PROT TOT 6.7 GM/DL 11/25/2012 CHEM 14 5807957 GLUCOSE 196 MG/DL 11/25/2012 CHEM 14 4351432 BICARB 25 MMOL/L 11/25/2012 CHEM 14 2447606 ANION GAP 5 MEQ/L 11/25/2012 CBC 2229981 WBC 6.1 10e9/L 11/25/2012 CBC 6931251 RBC 4.78 10e12/L 11/25/2012 CBC 6687844 HGB 15.0 g/dL 11/25/2012 CBC 5392892 HCT DET 43.4 % 11/25/2012 CBC 2899492 MCV 90.8 fL 11/25/2012 CBC 3378809 MCH 31.4 pg 11/25/2012 CBC 3708455 MCHC 34.6 g/dL 11/25/2012 CBC 1773440 PLT 174 10e9/L 11/25/2012 CBC 5435550 MPV 9.5 fL 11/25/2012 CBC 4694250 JYAESH % 54.6 % 11/25/2012 CBC 3659457 LY % 32.9 % 11/25/2012 CBC 0626309 MON % 9.6 % 11/25/2012 CBC 7852459 EOS % 2.6 % 11/25/2012 CBC 3441165 BASO % 0.3 % 11/25/2012 CBC 2172072 RDW 12.9 % 11/25/2012 CBC 9995040 ABS JAYESH 3.33 10e9/L 11/25/2012 CBC 7568866 ABS LYMPH 2.01 10e9/L 11/25/2012 CBC 6378602 ABS MONO 0.59 10e9/L 11/25/2012 CBC 6128923 ABS EOS 0.16 10e9/L 11/25/2012 CBC 7913180 ABS BASO 0.02 10e9/L 11/25/2012 CBC 4234739 RDW-SD 42.3 fL 11/25/2012 LIPID GRP HDL TEST 39 MG/DL 11/25/2012 LIPID GRP TRIG 204 MG/DL 11/25/2012 LIPID GRP TEST LDL 100 MG/DL 11/25/2012 LIPID GRP CHOL 180 MG/DL 11/25/2012 LIPID GRP RCHOL/HDL 4.62 RATIO 11/25/2012 A1C HPLC 4366982 A1C HPLC 76803-9 8.2 % 11/25/2012 GFR CALC 7571895 GFR AA >60 ML/MIN 11/25/2012 GFR CALC 7165842 GFR NON-AA 58.0L ML/MIN 11/25/2012 TSH 7836875 TSH 0.636 uIU/ML 01/13/2012 A1C HPLC 6335227 A1C HPLC 79347-1 7.9 % 01/13/2012 GFR CALC 7393583 GFR AA >60 ML/MIN 01/13/2012 GFR CALC 0226191 GFR NON-AA 59.0L ML/MIN 01/13/2012 CBC 1191495 WBC 7.8 10e9/L 01/13/2012 CBC 6407018 RBC 4.93 10e12/L 01/13/2012 CBC 4082112 HGB 15.3 g/dL 01/13/2012 CBC 9670630 HCT DET 43.6 % 01/13/2012 CBC 8777714 MCV 88.4 fL 01/13/2012 CBC 9598784 MCH 31.0 pg 01/13/2012 CBC 5651471 MCHC 35.1 g/dL 01/13/2012 CBC 9118259 PLT 173 10e9/L 01/13/2012 CBC 5695292 MPV 9.1 fL 01/13/2012 CBC 1988974 JAYESH % 57.6 % 01/13/2012 CBC 0235365 LY % 31.5 % 01/13/2012 CBC 6208015 MON % 8.8 % 01/13/2012 CBC 4908828 EOS % 1.8 % 01/13/2012 CBC 9534659 BASO % 0.3 % 01/13/2012 CBC 6253000 RDW 12.9 % 01/13/2012 CBC 2238954 ABS JAYESH 4.49 10e9/L 01/13/2012 CBC 7084540 ABS LYMPH 2.46 10e9/L 01/13/2012 CBC 9404472 ABS MONO 0.69 10e9/L 01/13/2012 CBC 5070249 ABS EOS 0.14 10e9/L 01/13/2012 CBC 2274538 ABS BASO 0.02 10e9/L 01/13/2012 CBC 0851667 RDW-SD 41.2 fL 01/13/2012 CHEM 14 1115479 AST 21 U/L 01/13/2012 CHEM 14 9061362 ALT 23 IU/L 01/13/2012 CHEM 14 1394231 BUN 20 MG/DL 01/13/2012 CHEM 14 8601622 ALBUMIN 4.4 GM/DL 01/13/2012 CHEM 14 1310918 CHLORIDE 94 MMOL/L 01/13/2012 CHEM 14 0298002 BILI TOT 0.5 MG/DL 01/13/2012 CHEM 14 6732154 ALK PHOS 60 U/L 01/13/2012 CHEM 14 6913504 SODIUM 131 MMOL/L 01/13/2012 CHEM 14 2101709 CREATININE 1.20 MG/DL 01/13/2012 CHEM 14 4036977 CALCIUM 9.5 MG/DL 01/13/2012 CHEM 14 7556968 POTASSIUM 4.3 MMOL/L 01/13/2012 CHEM 14 4586213 PROT TOT 6.5 GM/DL 01/13/2012 CHEM 14 9513982 GLUCOSE 172 MG/DL 01/13/2012 CHEM 14 8268028 BICARB 26 MMOL/L 01/13/2012 CHEM 14 6646300 ANION GAP 11 MEQ/L 01/13/2012 Review of [...] WOUN RTS (CULTURE OTHR SPECIMN AEROBIC) CPT-4: 44068 03/19/2015 DRAINAGE OF SKIN ABSCESS CPT-4: 62358 03/19/2015 ADMIN PNEUMOCOCCAL VACCINE SNOMED CT: 16082729 CPT-4: G0009 03/08/2015 PNEUMOCOCCAL VACC 13 THALIA IM Formatting Model/CDA Sections, Assigned to SNOMED CT: 66848933 CPT-4: 50163Nwbqtqz 03/08/2015 ADMIN PNEUMOCOCCAL VACCINE SNOMED CT: 32259929 CPT-4: G0009 01/23/2014 Pneumococcal Polysaccharide Vaccine, 23-Valent, Ad Assigned to/Merissa Sutton CPT-4: 41911Gxprahg 01/23/2014 DESTRUCT PREMALG LESION CPT-4: 99759 10/24/2013 DESTRUCT PREMALG LES 2-14 CPT-4: 83695 10/24/2013 ROUTINE VENIPUNCTURE CPT-4: 09137 05/05/2013 PRESCRIP TRANSMIT VIA ERX SY CPT-4: G8553 04/24/2013 DESTRUCT PREMALG LESION CPT-4: 77485 12/26/2012 PRESCRIP TRANSMIT VIA ERX SY CPT-4: G8553 11/30/2012 ROUTINE VENIPUNCTURE CPT-4: 42145 11/25/2012 PRESCRIP TRANSMIT VIA ERX SY CPT-4: G8553 05/30/2012 PRESCRIP TRANSMIT VIA ERX SY CPT-4: G8553 04/14/2012 PRESCRIP TRANSMIT VIA ERX SY CPT-4: G8553 02/22/2012 ROUTINE VENIPUNCTURE CPT-4: 20261 01/13/2012 ROUTINE VENIPUNCTURE CPT-4: 59207 08/06/2011 ROUTINE VENIPUNCTURE CPT-4: 77952 06/25/2011 Vital Signs Date Vital 05/13/2017 Blood Pressure 1: 154/82 Code : 8480-6 BMI: 30.0 Code : 88481-8 Heart Rate 1 : 65 bpm Height: 6'2" SpO2: 98% Weight: 234 lbs 04/15/2017 Blood Pressure 1: 152/74 Code : 8480-6 BMI: 29.7 Code : 52025-2 Heart Rate 1 : 64 bpm Height: 6'2" SpO2: 98% Weight: 231 lbs 02/04/2017 Blood Pressure 1: 140/78 Code : 8480-6 BMI: 30.0 Code : 24245-7 Heart Rate 1 : 83 bpm Height: 6'2" SpO2: 97% Weight: 234 lbs 10/12/2016 Blood Pressure 1: 148/68 Code : 8480-6 BMI: 29.3 Code : 65336-7 Heart Rate 1 : 65 bpm Height: 6'2" SpO2: 100% Weight: 228 lbs 10/08/2016 Blood Pressure 1: 148/68 Code : 8480-6 BMI: 29.3 Code : 79133-0 Heart Rate 1 : 65 bpm Height: 6'2" SpO2: 100% Weight: 228 lbs 8 oz 09/10/2016 Blood Pressure 1: 142/68 Code : 8480-6 BMI: 29.3 Code : 81134-5 Heart Rate 1 : 75 bpm Height: 6'2" SpO2: 97% Weight: 228 lbs 08/24/2016 Blood Pressure 1: 156/86 Code : 8480-6 BMI: 28.1 Code : 16429-1 Heart Rate 1 : 72 bpm Height: 6'2" SpO2: 97% Weight: 219 lbs 08/06/2016 Blood Pressure 1: 172/90 Code : 8480-6 BMI: 29.0 Code : 13483-8 Heart Rate 1 : 68 bpm Height: 6'2" SpO2: 98% Temperature: 36.1 (C) / 96.9 (F) Weight: 226 lbs 07/30/2016 Blood Pressure 1: 138/86 Code : 8480-6 BMI: 29.7 Code : 33445-5 Heart Rate 1 : 80 bpm Height: 6'2" SpO2: 95% Temperature: 36.5 (C) / 97.7 (F) Weight: 231 lbs 06/22/2016 Blood Pressure 1: 145/82 Code : 8480-6 Heart Rate 1: 77 bpm Respiratory Rate : 18 bpm SpO2: 97% Weight: 231 lbs 04/27/2016 Blood Pressure 1: 158/76 Code : 8480-6 Blood Pressure 1: 182/78 Code: 8480-6 BMI: 30.4 Code: 43460-0 Heart Rate 1: 69 bpm Height: 6'2" SpO2: 97% Weight: 237 lbs 03/23/2016 Blood Pressure 1: 140/82 Code : 8480-6 BMI: 30.4 Code : 33444-2 Heart Rate 1 : 77 bpm Height: 6'2" SpO2: 93% Weight: 237 lbs 01/20/2016 Blood Pressure 1: 142/80 Code : 8480-6 BMI: 31.2 Code : 63629-6 Heart Rate 1 : 64 bpm Height: 6'2" SpO2: 93% Weight: 243 lbs 12/16/2015 Blood Pressure 1: 138/88 Code : 8480-6 BMI: 30.3 Code : 36473-5 Heart Rate 1 : 62 bpm Height: 6'2" SpO2: 97% Weight: 236 lbs 12/09/2015 Blood Pressure 1: 148/80 Code : 8480-6 Blood Pressure 1: 198/92 Code: 8480-6 Blood Pressure 1: 152/70 Code: 8480-6 BMI: 30.3 Code: 67109-8 Heart Rate 1: 84 bpm Height: 6'2" Weight: 236 lbs 11/25/2015 Blood Pressure 1: 160/80 Code : 8480-6 BMI: 30.2 Code : 76013-2 Heart Rate 1 : 68 bpm Height: 6'2" SpO2: 96% Weight: 235 lbs 09/02/2015 Blood Pressure 1: 122/64 Code : 8480-6 BMI: 30.2 Code : 69047-7 Heart Rate 1 : 86 bpm Height: 6'2" SpO2: 98% Weight: 235 lbs 08/05/2015 Blood Pressure 1: 130/70 Code : 8480-6 Heart Rate 1: 81 bpm SpO2: 97% Weight: 233 lbs 07/25/2015 Blood Pressure 1: 142/80 Code : 8480-6 BMI: 30.0 Code : 57085-4 Heart Rate 1 : 74 bpm Height: 6'2" SpO2: 95% Weight: 234 lbs 06/03/2015 Blood Pressure 1: 150/68 Code : 8480-6 BMI: 30.0 Code : 36804-3 Heart Rate 1 : 66 bpm Height: 6'2" SpO2: 96% Weight: 234 lbs 03/19/2015 Blood Pressure 1: 154/78 Code : 8480-6 BMI: 30.3 Code : 58331-2 Heart Rate 1 : 63 bpm Height: 6'2" SpO2: 96% Weight: 236 lbs 03/04/2015 Blood Pressure 1: 124/68 Code : 8480-6 BMI: 30.2 Code : 81710-8 Heart Rate 1 : 60 bpm Height: 6'2" SpO2: 97% Weight: 235 lbs 02/20/2015 Blood Pressure 1: 160/84 Code : 8480-6 BMI: 30.8 Code : 83686-5 Heart Rate 1 : 79 bpm Height: 6'2" SpO2: 96% Weight: 240 lbs 02/11/2015 Blood Pressure 1: 170/102 Code: 8480-6 BMI: 31.1 Code: 25705-8 Heart Rate 1: 81 bpm Height: 6'2" SpO2: 96% Weight: 242 lbs 01/28/2015 Blood Pressure 1: 174/80 Code : 8480-6 Blood Pressure 2: 168/74 Code: 8480-6 BMI: 31.2 Code: 25632-8 Heart Rate 1: 74 bpm Height: 6'2" SpO2: 97% Weight: 243 lbs 10/01/2014 Blood Pressure 1: 152/84 Code : 8480-6 BMI: 30.4 Code : 45863-6 Heart Rate 1 : 80 bpm Height: 6'2" SpO2: 96% Weight: 237 lbs 05/30/2014 Blood Pressure 1: 140/82 Code : 8480-6 BMI: 30.6 Code : 19559-2 Heart Rate 1 : 86 bpm Height: 6'2" Weight: 238 lbs 02/28/2014 Blood Pressure 1: 152/86 Code : 8480-6 BMI: 29.5 Code : 64446-5 Heart Rate 1 : 64 bpm Height: 6'2" Weight: 230 lbs 01/23/2014 Blood Pressure 1: 142/68 Code : 8480-6 BMI: 29.7 Code : 91459-5 Heart Rate 1 : 80 bpm Height: 6'2" Weight: 231 lbs 12/26/2013 Blood Pressure 1: 150/72 Code : 8480-6 BMI: 29.3 Code : 09268-8 Heart Rate 1 : 60 bpm Height: 6'2" Respiratory Rate: 16 bpm Weight: 228 lbs 8 oz 10/24/2013 Blood Pressure 1: 140/84 Code : 8480-6 Heart Rate 1: 60 bpm 10/17/2013 Blood Pressure 1: 166/72 Code : 8480-6 BMI: 28.8 Code : 25571-8 Heart Rate 1 : 68 bpm Height: 6'2" Weight: 224 lbs 07/24/2013 Blood Pressure 1: 112/64 Code : 8480-6 BMI: 29.1 Code : 62030-8 Heart Rate 1 : 80 bpm Height: 6'2" Weight: 227 lbs 04/24/2013 Blood Pressure 1: 130/74 Code : 8480-6 BMI: 28.9 Code : 15323-6 Heart Rate 1 : 76 bpm Height: 6'2" Weight: 225 lbs 6 oz 03/20/2013 Blood Pressure 1: 150/70 Code : 8480-6 BMI: 29.7 Code : 30467-8 Heart Rate 1 : 76 bpm Height: 6'2" Temperature: 37.0 (C) / 98.6 (F) Weight: 231 lbs 01/19/2013 Blood Pressure 1: 150/78 Code : 8480-6 BMI: 30.2 Code : 49920-1 Heart Rate 1 : 84 bpm Height: 6'2" Weight: 235 lbs 12/26/2012 Blood Pressure 1: 142/78 Code : 8480-6 BMI: 29.9 Code : 25737-2 Heart Rate 1 : 84 bpm Height: 6'2" Weight: 233 lbs 12/21/2012 Blood Pressure 1: 142/80 Code : 8480-6 BMI: 29.5 Code : 65343-2 Heart Rate 1 : 80 bpm Height: 6'2" Weight: 230 lbs 11/30/2012 Blood Pressure 1: 146/78 Code : 8480-6 BMI: 29.4 Code : 45084-7 Heart Rate 1 : 80 bpm Height: 6'2" Weight: 229 lbs 05/30/2012 Blood Pressure 1: 150/74 Code : 8480-6 BMI: 29.4 Code : 63426-3 Heart Rate 1 : 76 bpm Height: 6'2" Respiratory Rate: 16 bpm Weight: 229 lbs 04/26/2012 Blood Pressure 1: 124/64 Code : 8480-6 Heart Rate 1: 90 bpm SpO2: 98% Temperature: 36.7 (C) / 98.1 (F) Weight: 04/14/2012 Blood Pressure 1: 150/88 Code : 8480-6 Blood Pressure 2: 150/90 Code: 8480-6 BMI: 29.4 Code: 64589-8 Heart Rate 1: 72 bpm Height: 6'2" [...] Code : 8480-6 BMI: 28.9 Code : 85075-2 Heart Rate 1 : 64 bpm Height: 6'2" Weight: 225 lbs 08/05/2011 Blood Pressure 1: 142/72 Code : 8480-6 BMI: 29.3 Code : 63862-3 Heart Rate 1 : 80 bpm Height: 6'2" Weight: 228 lbs 07/01/2011 Blood Pressure 1: 136/70 Code : 8480-6 BMI: 29.2 Code : 03131-1 Heart Rate 1 : 68 bpm Height: [...] doing physical therapy for parkinson's disease at [facility] diabetes mellitus Alleviating Factors insulin 01/19/2013 None [...] data Encounters Encounter Performer Location Codes Date 22035 EST. PATIENT, LEVEL IV Diagnosis: Essential (primary) hypertension[ICD10: I10] Diagnosis: Localized edema[ICD10: R60.0] Diagnosis: Atrophy of thyroid (acquired)[ICD10: E03.4] Diagnosis: Type 2 diabetes mellitus without complications[ICD10: E11.9] [facility] CPT-4: 35078 05/13/2017 [id number] EST. PATIENT, LEVEL IV Diagnosis: Essential (primary) hypertension[ICD10: I10] Diagnosis: Atrophy of thyroid (acquired)[ICD10: E03.4] Diagnosis: Type 2 diabetes mellitus without complications[ICD10: E11.9] [facility] CPT-4: 52982 04/15/2017 ([id number]) 07495 EST. PATIENT, LEVEL IV Diagnosis: Type 2 diabetes mellitus with hyperglycemia[ICD10: E11.65] Diagnosis: Essential (primary) hypertension[ICD10: I10] Diagnosis: Hypothyroidism, unspecified[ICD10: E03.9] [facility] CPT-4: 29404 02/04/2017 ([id number]) 91851 EST. PATIENT, LEVEL III Diagnosis: Essential (primary) hypertension[ICD10: I10] Diagnosis: Hypothyroidism, unspecified[ICD10: E03.9] Ginny Medley MD, [facility] CPT-4: 87434 10/08/2016 ([id number]) 10783 EST. PATIENT, LEVEL III Diagnosis: Allergic rhinitis due to pollen[ICD10: J30.1] Diagnosis: Hypothyroidism, unspecified[ICD10: E03.9] Ginny Medley MD, [facility] CPT-4: 35850 09/10/2016 ([id number]) 89669 EST. 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 PATIENT, LEVEL IV Diagnosis: Abdominal distension (gaseous)[ICD10: R14.0] Diagnosis: Cough[ICD10: R05] Diagnosis: Acute bronchitis, unspecified[ICD10: J20.9] Diagnosis: Essential (primary) hypertension[ICD10: I10] Ginny Medley MD, [facility] CPT-4: 83657 08/06/2016 ([id number]) 07648 EST. PATIENT, LEVEL III Diagnosis: Cough[ICD10: R05] Diagnosis: Acute upper respiratory infection, unspecified[ICD10: J06.9] Ginny Medley MD, [facility] CPT-4: 86166 07/30/2016 ([id number]) 37335 EST. PATIENT, LEVEL IV Diagnosis: Type 2 diabetes mellitus with hyperglycemia[ICD10: E11.65] Diagnosis: Essential (primary) hypertension[ICD10: I10] Diagnosis: Parkinson's disease[ICD10: G20] Diagnosis: Localized edema[ICD10: R60.0] Ginny Medley MD, [facility] CPT-4: 58963 06/22/2016 ([id number]) 61061 EST. PATIENT, LEVEL IV Diagnosis: Essential (primary) hypertension[ICD10: I10] Diagnosis: Type 2 diabetes mellitus with hyperglycemia[ICD10: E11.65] Diagnosis: Hypo-osmolality and hyponatremia[ICD10: E87.1] Diagnosis: Hesitancy of micturition[ICD10: R39.11] Ginny Medley MD, [facility] CPT-4: 65457 04/27/2016 [id number]) 61863 EST. PATIENT, LEVEL III Diagnosis: Essential (primary) hypertension[ICD10: I10] Diagnosis: Localized edema[ICD10: R60.0] Ginny Medley MD, [facility] CPT-4: 99989 03/23/2016 ([id number]) 54274 EST. PATIENT, LEVEL IV Diagnosis: Low back pain[ICD10: M54.5] Diagnosis: Hypo-osmolality and hyponatremia[ICD10: E87.1] Diagnosis: Essential (primary) hypertension[ICD10: I10] Diagnosis: Localized edema[ICD10: R60.0] Diagnosis: Type 2 diabetes mellitus with hyperglycemia[ICD10: E11.65] Ginny Medley MD, [facility] CPT-4: 53630 01/20/2016 ([id number]) 30428 EST. PATIENT, LEVEL III Diagnosis: Type 2 diabetes mellitus with hyperglycemia[ICD10: E11.65] Diagnosis: Essential (primary) hypertension[ICD10: I10] Diagnosis: Hypo-osmolality and hyponatremia[ICD10: E87.1] Ginny Medley MD, [facility] CPT-4: 83998 12/16/2015 ([id number]) 29295 EST. PATIENT, LEVEL III Diagnosis: Essential (primary) hypertension[ICD10: I10] Diagnosis: Hypo-osmolality and hyponatremia[ICD10: E87.1] Ginny Medley MD, [facility] CPT-4: 96109 12/09/2015 [id number]) 79756 EST. PATIENT, LEVEL IV Diagnosis: Essential (primary) hypertension[ICD10: I10] Diagnosis: Type 2 diabetes mellitus with hyperglycemia[ICD10: E11.65] Diagnosis: Parkinson's disease[ICD10: G20] Ginny Medley MD, [facility] CPT-4: 70161 11/25/2015 11695 EST. PATIENT, LEVEL III Diagnosis: Localized edema[ICD10: R60.0] Diagnosis: Essential (primary) hypertension[ICD10: I10] Bonita Medley MD, [facility] CPT-4: 82545 09/02/2015 ([id number]) 25858 EST. PATIENT, LEVEL III Diagnosis: Localized edema[ICD10: R60.0] Ginny Medley MD, [facility] CPT-4: 01880 08/05/2015 ([id number]) 13368 EST. PATIENT, LEVEL III Diagnosis: Localized edema[ICD10: R60.0] Diagnosis: Unspecified open wound, right ankle, initial encounter[ICD10: S91.001A] Ginny Medley MD, [facility] CPT-4: 44467 ([id number]) 75867 EST. PATIENT, LEVEL IV Diagnosis: Essential (primary) hypertension[ICD10: I10] Diagnosis: Localized edema[ICD10: R60.0] Diagnosis: Low back pain[ICD10: M54.5] Diagnosis: Type 2 diabetes mellitus with hyperglycemia[ICD10: E11.65] Ginny Medley MD, [facility] CPT-4: 31469 06/03/2015 ([id number]) Miscellaneous no charge Diagnosis: Encounter for other specified aftercare[ICD10: Z51.89] Yoli Medley MD, [facility] CPT-4: 56830 03/20/2015 58654 EST. PATIENT, LEVEL IV Diagnosis: Cutaneous abscess of chest wall[ICD10: L02.213] Yoli Medley MD, [facility] CPT-4: 65442 03/19/2015 ([id number]) 23973 EST. PATIENT, LEVEL III Diagnosis: Edema, unspecified[ICD10: R60.9] Yoli Medley MD, [facility] CPT-4: 18564 03/04/2015 52877 EST. PATIENT, LEVEL III Diagnosis: Edema, unspecified[ICD10: R60.9] Diagnosis: Unspecified open wound, right ankle, initial encounter[ICD10: S91.001A] Yoli Medley MD, [facility] CPT-4: 74346 07/2014 ([id number]) 49263 EST. PATIENT, LEVEL III Diagnosis: Edema, unspecified[ICD10: R60.9] Yoli Medley MD [facility] CPT-4: 79560 02/11/2015 ([id number]) 38435 EST. PATIENT, LEVEL IV Diagnosis: Type 2 diabetes mellitus with hyperglycemia[ICD10: E11.65] Diagnosis: Essential (primary) hypertension[ICD10: I10] Diagnosis: Edema, unspecified[ICD10: R60.9] Yoli Medley MD [facility] CPT-4: 36253 01/28/2015 ([id number]) 50512 EST. PATIENT, LEVEL IV Diagnosis: DIABETES TYPE II[ICD9: 250.00] Diagnosis: ESSENTIAL HYPERTENSION[ICD9: 401.9] Diagnosis: Parkinsons disease[ICD9: 332.0] Yoli Medley MD [facility] CPT- 4: 36137 10/01/2014 ([id number]) 67215 EST. PATIENT, LEVEL IV Diagnosis: ESSENTIAL HYPERTENSION[ICD9: 401.9] Diagnosis: DIABETES TYPE II[ICD9: 250.00] Diagnosis: Parkinsons disease[ICD9: 332.0] Yoli Medley MD [facility] CPT- 4: 04766 05/30/2014 ([id number]) 97518 EST. PATIENT, LEVEL IV Diagnosis: DIABETES TYPE II[ICD9: 250.00] Diagnosis: ESSENTIAL HYPERTENSION[ICD9: 401.9] Diagnosis: Back pain[ICD9: 724.5] Yoli Medley MD [facility] CPT-4: 34377 02/28/2014 ([id number]) 81714 EST. PATIENT, LEVEL III Diagnosis: ESOPHAGEAL REFLUX[ICD9: 530.81] Diagnosis: Esophageal ulcer[ICD9: 530.20] Yoli Medley MD [facility] CPT- 4: 58442 01/23/2014 ([id number]) 12354 EST. PATIENT, LEVEL IV Diagnosis: ESOPHAGEAL REFLUX[ICD9: 530.81] Diagnosis: ESSENTIAL HYPERTENSION[ICD9: 401.9] Yoli Medley MD [facility] CPT-4: 75199 12/26/2013 ([id number]) 90045 EST. PATIENT, LEVEL IV Diagnosis: Diabetes type 2, uncontrolled[ICD9: 250.02] Diagnosis: ESSENTIAL HYPERTENSION[ICD9: 401.9] Diagnosis: Back pain[ICD9: 724.5] Diagnosis: ELEVATED PSA[ICD9: 790.93] Yoli Medley MD [facility] CPT- 4: 73806 10/17/2013 ([id number]) 44215 EST. PATIENT, LEVEL IV Diagnosis: DIABETES TYPE II[SNOMED: 732227272] Diagnosis: ESSENTIAL HYPERTENSION[SNOMED: 13779971] Diagnosis: Sleep apnea[ICD9: 780.57] Yoli Medley MD [facility] CPT-4: 59341 07/24/2013 ([id number]) 98839 EST. PATIENT, LEVEL IV Diagnosis: DIABETES TYPE II[SNOMED: 033417163] Diagnosis: ESSENTIAL HYPERTENSION[SNOMED: 77986777] Diagnosis: HYPERLIPIDEMIA[ICD9: 272.4] Yoli Medley MD [facility] CPT- 4: 54537 04/24/2013 ([id number]) 25455 EST. PATIENT, LEVEL III Diagnosis: DIABETES TYPE II[SNOMED: 453271127] Yoli Medley MD [facility] CPT-4: 26776 03/20/2013 ([id number]) 66034 EST. PATIENT, LEVEL III Diagnosis: DM W/O COMPLICATION TYPE II, UNCONTROLLED[SNOMED: 40719622] Yoli Medley MD [facility] CPT-4: 62776 01/19/2013 ([id number]) 26395 EST. PATIENT, LEVEL III Diagnosis: DM W/O COMPLICATION TYPE II, UNCONTROLLED[SNOMED: 04817875] Yoli Medley MD [facility] CPT-4: 53473 12/21/2012 ([id number]) 19090 EST. PATIENT, LEVEL IV Diagnosis: DM W/O COMPLICATION TYPE II, UNCONTROLLED[SNOMED: 76098748] Diagnosis: Parkinsons disease[ICD9: 332.0] Diagnosis: Back pain[ICD9: 724.5] Diagnosis: Gait instability[ICD9: 781.2] Yoli Medley MD [facility] CPT- 4: 08010 11/30/2012 ([id number]) 77835 EST. PATIENT, LEVEL IV Diagnosis: ESSENTIAL HYPERTENSION[SNOMED: 53347987] Diagnosis: Abdominal pain[ICD9: 789.00] Diagnosis: DIABETES TYPE II[SNOMED: 041508116] Yoli Medley MD, [facility] CPT-4: 58312 05/30/2012 ([id number]) 56297 EST. PATIENT, LEVEL III Diagnosis: Gastroenteritis[ICD9: 558.9] Ginny Medley MD, [facility] CPT-4: 25065 04/26/2012 ([id number]) 74598 EST. PATIENT, LEVEL IV Diagnosis: ESSENTIAL HYPERTENSION[SNOMED: 84860055] Diagnosis: DIABETES TYPE II[SNOMED: 555513215] Diagnosis: Claw toe[ICD9: 735.5] Yoli Medley MD, [facility] CPT-4: 34415 04/14/2012 ([id number]) 69568 EST. PATIENT, LEVEL III Diagnosis: Rash[ICD9: 782.1] Diagnosis: DERMATOPHYTOSIS OF FOOT[ICD9: 110.4] Ginny Medley MD, [facility] CPT-4: 35567 02/22/2012 ([id number]) 76713 EST. PATIENT, LEVEL IV Diagnosis: DM W/O COMPLICATION TYPE II, UNCONTROLLED[SNOMED: 37811509] Diagnosis: ESSENTIAL HYPERTENSION[SNOMED: 72930173] Diagnosis: Constipation - functional[ICD9: 564.09] Diagnosis: Encounter for long-term (current) use of other high-risk medications[ ICD9: V58.69] Yoli Medley MD, [facility] CPT-4: 92947 01/13/2012 ([id number]) 87414 EST. PATIENT, LEVEL IV Diagnosis: ESSENTIAL HYPERTENSION[SNOMED: 93147423] Diagnosis: DIABETES TYPE II[SNOMED: 727487333] Yoli Medley MD, [facility] CPT-4: 31573 09/02/2011 71808 EST. PATIENT, LEVEL IV Diagnosis: LUMBAGO[ICD9: 724.2] Diagnosis: Sacroiliitis[ICD9: 720.2] Yoli Medley MD, [facility] CPT-4: 29599 08/05/2011 ([id number]) 33422 EST. PATIENT, LEVEL IV Diagnosis: ESSENTIAL HYPERTENSION[SNOMED: 10429381] Diagnosis: DIABETES TYPE II[SNOMED: 986260902] Diagnosis: Breast mass in male[ICD9: 611.72] Diagnosis: Chronic hyponatremia[ICD9: 276.1] [facility] CPT-4: 31554 07/01/2011 Plan of Care Planned Activity Notes [...] controlled. 05/13/2017 Appointment: Yoli Medley WPtel: [phone] [facility] (15 min) Moderate 05/13/2017 Patient Education: Patient Medication Summary Completed 05/13/2017 Appointment: Bonita Villa [phone] (15 min) Moderate 04/28/2017 Appointment: Bonita Villa [facility]Ptel: [phone] (30 min) Complex 04/16/2017 Visit Plan: Hypertension [...] control. 04/15/2017 Appointment: Bonita Villa [facility]el[phone] (30 min) Complex 04/15/2017 Patient Education: Patient [...] of control. 02/04/2017 Appointment: Ginny Pearl WPtel: [phone] [place] (30 min) Complex 02/04/2017 Patient Education: Patient Medication Summary Completed 02/04/2017 Patient Education: Obesity Completed 02/04/2017 Patient Education: Patient Medication Summary Completed 02/01/2017 Appointment: Ginny Pearl [facility]Ptel: [phone] [place] (30 min) Complex 01/12/2017 Appointment: Ginny Pearl [facility]Ptel: [phone] [place] (30 min) Complex 01/07/2017 Visit Plan: [...] surrogate. 10/12/2016 Appointment: Bonita Villa WPtel: [phone] [facility] - Annual Wellness Visit 10/12/2016 Patient Education: [...] 3 months. 10/08/2016 Appointment: Ginny Pearl WPtel: [phone] [phone] [place] (30 min) Complex 10/08/2016 Patient Education: Patient Medication Summary Completed 10/08/2016 Patient Education: Hypertension Completed 10/08/2016 Visit Plan: Allergies-continue daily anti histamine-call if symptoms do not improve or if any worse S/P total thyroidectomy-now on levothyroxine-repeat labs in 1 month 09/10/2016 Appointment: Ginny Pearl WPtel: [phone] [phone] [place] (30 min) Complex 09/10/2016 Patient Education: [...] Ford to do total thyroidectomy on Wednesday Vqmdxcwgnc-xbxgx-dlhkup-due to thyroid nodules-will monitor symptoms for now 08/24/2016 Visit Plan: Hypertension - continue with current medications, continue with no added salt diet. Pt has been encouraged to exercise daily. The pt has been advised to call the office if there are any acute concerns about change in blood pressure readings at home. Bilateral thyroid nodules-voice hoarseness-Dr Ford to do total thyroidectomy on Wednesday Zotawhdbzp-lihba-golevs-due to thyroid nodules-will monitor symptoms for now [...] and plan. 08/24/2016 Appointment: Ginny Pearl WPtel: [phone] [phone] [place] (30 min) Complex 08/24/2016 Patient Education: Patient Medication Summary Completed 08/24/2016 Visit Plan: Abdominal amjdmcql-nbgtvztwpizu-PHY today Bronchitis - acute case of bronchitis [...] at home 08/06/2016 Appointment: Ginny Pearl WPtel: [phone] [phone] (10 min) Simple 08/06/2016 Patient Education: Patient Medication Summary Completed 08/06/2016 Visit Plan: URI - Pt advised to increase fluids, vitamin C. Discussed natural and expected course of this diagnosis and need to alert me if symptoms do not follow expected course, or if any worse. RX sent to patient' s pharmacy. 07/30/2016 Appointment: Ginny Pearl WPtel: [phone] (15 min) Moderate 07/30/2016 Patient Education: Patient [...] symptoms worsen. 06/22/2016 Appointment: Ginny Pearl: [phone] [phone] (30 min) Complex 06/22/2016 Patient Education: Patient [...] hesitancy-UA negative 04/27/2016 Appointment: Ginny Pearl WPtel: [facility]5 [phone] (30 min) Complex 04/27/2016 Patient Education: Patient [...] edema. 03/23/2016 Appointment: Ginny Pearl WPtel: [phone] [phone] (30 min) Complex 03/23/2016 Patient Education: Patient [...] in the office. Refer for PT at [facility]- Low back pain, generalized weakness, Parkinsons Low fjpxbl-slyrewz-uw need for increase sodium intake Hypertension - [...] Hgb A1C 01/20/2016 Appointment: Ginny Pearl WPtel: [address] [place], [place] [phone] (30 min) [facility] 01/20/2016 Patient Education: Patient Medication Summary Completed 01/20/2016 Patient Education: Obesity Completed 01/20/2016 Care Plan: Comp Metabolic Pending 01/20/2016 Care Plan: Cbc With Differential Pending 01/20/2016 Care Plan: %Hba1C LOINC : 72821-6 Pending 01/20/2016 Visit Plan: Diabetes Mellitus - [...] today 12/09/2015 Appointment: Ginny Pearl WPtel: [phone] [facility] [place] [address] (30 min) Complex 12/09/2015 Patient Education: Patient [...] worsen. 11/25/2015 Appointment: Ginny Pearl WPtel: [phone] [phone] (30 min) Complex 11/25/2015 Patient Education: Patient [...] 03/26/2015 Care Plan: Referral Order SNOMED-CT : [id number] Ordered 03/26/2015 Patient Education: Patient Medication Summary [...] 02/20/2015 Care Plan: Referral Order SNOMED-CT : [id number] Ordered 02/20/2015 Visit Plan: Hypertension - uncontrolled [...] - SPIRONOLACTONE 02/11/2015 Appointment: Yoli Medley WPtel: [address] [place] [address] (15 min) Moderate 02/11/2015 Patient Education: Patient [...] pressure. 01/28/2015 Appointment: [phone] (15 min) Moderate 01/28/2015 Patient Education: [...] this office if symptoms worsen. 10/01/2014 Appointment: Yloi Medley [facility]Ptel[phone] Follow up 10/01/2014 Patient Education: Patient [...] worsen. 05/30/2014 Appointment: [facility]Ptel[phone] Follow up 05/30/2014 Patient Education: Patient [...] 29. 01/23/2014 Appointment: [facility] Med[facility]Ptel: [phone] Follow up 01/23/2014 Patient Education: Patient [...] home. 12/26/2013 Appointment: Yoli Medley WPtel: [phone] [facility] Follow up 12/26/2013 Patient Education: Patient Medication Summary Completed 12/26/2013 Patient Education: Hypertension Completed 12/26/2013 Visit Plan: Wound Instructions - Pt was instruced to keep the wound clean, wash with antibacterial soap, use triple antibiotic ointment, call if redness, pustular drainage, or any other acute conerns. 10/24/2013 Appointment: Ginny Pearl WPtel: [phone] [phone] Surgical Procedure 10/24/2013 Patient Education: Patient Medication [...] lesions. 10/17/2013 Appointment: Yoli Medley WPtel: [phone] [facility] Follow up 10/17/2013 Patient Education: Patient [...] like to have his Oxygen company - [employer] - help with arranging oxygen when he is in [facility]. 07/24/2013 Appointment: Yoli Medley WPtel: [facility] Follow up 07/24/2013 Patient Education: Patient Medication Summary Completed 07/24/2013 Patient Education: Hypertension Completed 07/24/2013 Appointment: Ginny Pearl WPtel: [phone] [place] Lab Draw 05/05/2013 Patient Education: Patient Medication Summary Completed 05/05/2013 Patient Education: Hypertension Completed 05/05/2013 Appointment: Yoli Medley WPtel: [facility] Follow up 05/01/2013 Visit Plan: Diabetes [...] UNITS DAILY. 01/19/2013 Appointment: Yoli Medley WPtel: [address] [place] [address] Follow up 01/19/2013 Patient Education: Patient Medication Summary Completed 01/19/2013 Visit Plan: CG-eurksiyz-wqhwirnztpf today in the office- wound Instructions - Pt was instruced to keep the wound clean, wash with antibacterial soap, use triple antibiotic ointment, call if redness, pustular drainage, or any other acute conerns. 12/26/2012 Appointment: Dae Ginny WPtel: [phone] [place] [address] 12/26/2012 Patient Education: Patient Medication Summary Completed [...] glucose. 12/21/2012 Appointment: Yoli Medley WPtel: [phone] Follow up 12/21/2012 Patient Education: Patient Medication Summary Completed 12/21/2012 Visit Plan: Parkinsons disease - rx for sinemet 25/100mg 1/ 2 pill in morning and 1/2 pill in evening, pt to let us know if the symptoms improve. Referral to Miguel at [facility] for gait instability. Diabetes Mellitus - Uncontrolled [...] gait instability - recommended christina at [facility] - continue with back brace as it offers support for the patient. 11/30/2012 Appointment: Yoli Medley WPtel: [phone] Follow up 11/30/2012 Patient Education: Patient [...] previously. 05/30/2012 Appointment: Yoli Medley [facility]Ptel: [phone] 6 wk f/u Follow up 05/30/2012 [...] to seek support for his arches via director of transportation eval and perhaps arch supports to be custom made or custom fitted. 04/14/2012 Appointment: Yoli Medley WPtel: [phone] [facility] Follow up 04/14/2012 Patient Education: Patient Medication Summary Completed 04/14/2012 Patient Education: Hypertension Completed 04/14/2012 Visit Plan: Rash- Discussed natural and expected course of this diagnosis and need to alert me if symtpoms do not follow expected course, or if any worse. RX sent to patient's pharmacy. 02/22/2012 Appointment: Ginny Pearl WPtel: [phone] [phone] [place] [address] 02/22/2012 Patient Education: Patient Medication Summary Completed [...] regimen. 01/13/2012 Appointment: Yoli Medley WPtel: [phone] [facility] Established Patient Preventative visit 01/13/2012 Patient [...] controlled. 09/02/2011 Appointment: Yoli Medley WPtel: [phone] [place] Other 09/02/2011 Patient Education: Patient Medication Summary Completed 09/02/2011 Patient Education: High Blood Pressure: Essential Hypertension Completed 2011 Appointment: Ginny Pearl WPtel: [phone] [place] Lab Draw 08/06/2011 Patient Education: Patient [...] metformin bid. 08/05/2011 Appointment: Yoli Medley WPtel: [facility]5 [facility] Other 08/05/2011 Patient Education: Patient Medication [...] at home. 07/01/2011 Appointment: Yoli Medley WPtel: [address] [place], [place] [phone] Other 07/01/2011 Patient Education: Patient Medication Summary Completed 07/01/2011 Patient Education: High Blood Pressure: Essential Hypertension Completed 2011 Appointment: Yoli Medley WPtel: [address] [place], [place] [phone] Lab Draw 06/25/2011 Patient Education: Patient Medication Summary Completed 06/25/2011 Patient Education: High Blood Pressure: Essential Hypertension Completed 2011 Referral: Via [facility] WPtel: [address] [place], [place] [phone] Referral Initiated Referral: Dangelo Ford Referral Initiated [...] CHECK LABS STOP EXTRA SODIUM REFER TO [facility] [place], BACK PAIN, WEAKNESS . Low back pain- the patient was instructed in appropriate posture, need for weight loss to alleviate abdominal obesity that is worsening the patient's back pain. The patient is to call the office if the pain is worsening or does not improve. Kenalog injection today in the office. Refer for PT at [facility]-DX Low back pain, generalized weakness, Parkinsons Low usncho-hzgvosz-yc need for increase sodium intake Hypertension - [...] change in blood pressure readings at home. Mryxzmxzyqoahg-fafuklsk-irznaue medication increased by Dr Ford and wants [...] Ford to do total thyroidectomy on Wednesday Gzxnnlxnco-gaixv-hfiqcw-due to thyroid nodules-will monitor symptoms for now . Hypertension - continue with current medications, continue with no added salt diet. Pt has been encouraged to exercise daily. The pt has been advised to call the office if there are any acute concerns about change in blood pressure readings at home. Bilateral thyroid nodules-voice hoarseness-Dr Ford to do total thyroidectomy on Wednesday Msvzonfclo-yjyut-avvsuc-due to thyroid nodules-will monitor symptoms for now [...] lasix Wednesday morning, 2 Lasix on Wednesday morning , and 2 lasix on morning. on WEDNESDAY [...] Lab work- CBC, CMP, BNP . Abdominal nichymcy-wjylllkzlsff-RAN today Bronchitis - acute case of bronchitis [...] like to have his Oxygen company - [employer] - help with arranging oxygen when he is in [facility]. . Parkinsons disease - rx for sinemet 25/100mg 1/2 pill in morning and 1/2 pill in evening, pt to let us know if the symptoms improve. Referral to Miguel at [facility] for gait instability. Diabetes Mellitus - Uncontrolled [...] gait instability - recommended christina at [facility] - continue with back brace as it offers support for the patient. . OD-ooaiajkp-zdufkkqypld today in the office-wound Instructions - Pt [...] to seek support for his arches via director of transportation eval and perhaps arch supports to be [...]
--- OUTSIDE RECORDS SUMMARY | 2017-11-07 17:31 | XMS REPORT | CCD ---
Author Author [facility] Organization [facility] Address [address] [place] [address] Phone Care Team Providers Care Correctional Captain Name Role Phone PP Unavailable CCM Unavailable Summary Purpose Interface Exchange Insurance Providers Payer name Policy type / Coverage type Covered republican ID Effective Begin Date Effective End Date WPS Medicare Part B Medicare Part B [id number] Unknown [facility] LIFE INSUR Medicare Part B [id number] Unknown Family history Runs in the family Diagnosis Age At Onset Diabetes Unknown Mother Diagnosis Age At Onset Diabetes Unknown Hypertension Unknown Alzheimer's Disease Unknown Stroke Unknown Father Diagnosis Age At Onset No Family Disease Entered N/A Grandmother Diagnosis Age At Onset Alzheimer's Disease Unknown Social History Social History Element Codes Description Effective Dates Number of children Unknown 4 1 in [place], 1 in [place], 2 in [place] 2011 Employment Unknown 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[place] [employer]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/[address]: 9067468 Former smoker Quit in 1953 - 1 [...] Fill Instructions glipizide 10 mg tablet RxNorm: 291358 1 Tablet(s) PO BID 201711/03/2018 Active metformin ER 500 mg tablet,extended release 24 hr RxNorm: 240703 Tablet(s) TAKE ONE TABLET BY MOUTH TWICE DAILY 05/13/2017 05/07/2018 Active Basaglar KwikPen 100 unit/mL (3 mL) subcutaneous RxNorm: 3031106 24 Unit(s) SQ daily 05/13/2017 05/07/2018 Active lisinopril 20 mg tablet RxNorm: 662963 Tablet(s) TAKE 1 TABLET BY MOUTH TWICE DAILY 05/13/2017 05/07/2018 Active finasteride 5 mg tablet RxNorm: 105203 1 Tablet(s) PO daily 11/08/2017 Active [SAVINGS FOR UNINSURED PATIENTS -- BIN:[id number], PCN: ASPROD1, Group: [id number], ID# [id number], Process claim through SpaceList, for questions: . THIS IS NOT INSURANCE.] levothyroxine 175 mcg tablet RxNorm: 424031 1 Tablet(s) PO daily 05/13/2017 11/08/2017 Active Sinemet 25 mg-100 mg tablet RxNorm: 124413 Tablet(s) TAKE ONE TABLET BY MOUTH TWICE DAILY IN THE MORNING AND AT SUPPER 05/13/2017 05/07/2018 Active Lasix 20 mg tablet RxNorm: 604639 Tablet(s) TAKE 1 TABLET BY MOUTH ONCE DAILY FOR 1 WEEK AND THEN TAKE 1 TABLET BY MOUTH EVERY 3 DAYS THEREAFTER 05/13/2017 07/27/2017 Active Basaglar KwikPen 100 unit/mL (3 mL) subcutaneous RxNorm: 6795824 24 Unit(s) SQ daily 05/07/2017 05/12/2017 Inactive Lasix 20 mg tablet RxNorm: 2 Tablet(s) PO daily x 3 days, then 1 pill three times a week thereafter 04/28/2017 No Stop Date Active triamcinolone acetonide 0.025 % topical cream RxNorm: 2360772 1 Application TOP BID 04/28/2017 No Stop Date Active clotrimazole 1 % topical cream RxNorm: 344579 1 Application TOP BID 04/28/2017 No Stop Date Active potassium chloride ER 10 mEq tablet,extended release(part/ cryst) RxNorm: 1723690 2 Tablet(s) PO daily x 3 days, then 1 pill three times a week when taking the lasix 04/28/2017 08/25/2017 Active Lasix 20 mg tablet RxNorm: 579664 Tablet(s) TAKE 1 TABLET BY MOUTH ONCE DAILY FOR 1 WEEK AND THEN TAKE 1 TABLET BY MOUTH EVERY 3 DAYS THEREAFTER 04/22/2017 05/12/2017 Inactive Lantus Solostar 100 unit/mL (3 mL) subcutaneous insulin pen RxNorm: 765176 24 Unit(s) SQ daily INJECT 24 UNITS DAILY OR DIRECTED 201605/06/2017 Inactive 1 box of 5 pens Basaglar KwikPen 100 unit/mL (3 mL) subcutaneous RxNorm: 1220939 24 Unit(s) SQ daily 03/02/2017 05/06/2017 Inactive Basaglar KwikPen 100 unit/mL (3 mL) subcutaneous RxNorm: 4334660 24 Unit(s) SQ daily 03/02/2017 03/01/2017 Inactive levothyroxine 175 mcg tablet RxNorm: 905133 1 Tablet(s) PO daily 02/02/2017 05/12/2017 Inactive Sinemet 25 mg-100 mg tablet RxNorm: 958655 TAKE ONE TABLET BY MOUTH TWICE DAILY IN THE MORNING AND AT SUPPER 12/30/2016 Inactive metformin ER 500 mg tablet,extended release 24 hr RxNorm: 445108 Tablet(s) TAKE ONE TABLET BY MOUTH TWICE DAILY 11/10/2016 05/12/2017 Inactive lisinopril 20 mg tablet RxNorm: 675127 Tablet(s) TAKE 1 TABLET BY MOUTH TWICE DAILY 11/10/2016 05/12/2017 Inactive levothyroxine 150 mcg tablet RxNorm: 852949 1 Tablet(s) PO daily 11/05/2016 02/01/2017 Inactive PLEASE LET PATIENT KNOW WE ARE GIVING HIM 150MCG INSTEAD OF 100MCG SO HE JUST TAKES 1 TAB DAILY. THANKS! Lantus Solostar 100 unit/mL (3 mL) subcutaneous insulin pen RxNorm: 046286 24 Unit(s) SQ daily INJECT 24 UNITS DAILY OR DIRECTED 201603/01/2017 Inactive 1 box of 5 pens Lantus Solostar 100 unit/mL (3 mL) subcutaneous insulin pen RxNorm: 598069 24 Unit(s) SQ daily INJECT 24 UNITS DAILY OR DIRECTED 201610/06/2016 Inactive please call patient with the colbert levothyroxine 100 mcg tablet RxNorm: 165935 1.5 Tablet(s) PO daily 10/05/2016 11/04/2016 Inactive metformin ER 500 mg tablet,extended release 24 hr RxNorm: 851608 Tablet(s) TAKE ONE TABLET BY MOUTH TWICE DAILY 09/29/2016 11/09/2016 Inactive prednisone 20 mg tablet RxNorm: 407213 1 Tablet(s) PO BID 08/0608/10/2016 Inactive Kenalog 40 mg/mL suspension for injection RxNorm: 3026651 1 Milliliter(s) Inj 07/30/2016 07/30/2016 Inactive doxycycline hyclate 100 mg tablet RxNorm: 283321 1 Tablet(s) PO BID 07/30/2016 08/05/2016 Inactive glipizide 10 mg tablet RxNorm: 115556 1 Tablet(s) PO BID 201605/12/2017 Inactive Sinemet 25 mg-100 mg tablet RxNorm: 892679 TABLET(S) TAKE 1 TABLET BY MOUTH TWICE A DAY IN THE MORNING AND AT SUPPER 05/11/2016 11/06/2016 Inactive Patient requests 90 days supply metformin ER 500 mg tablet,extended release 24 hr RxNorm: 585363 TAKE ONE TABLET BY MOUTH TWICE DAILY 05/04/20162016 Inactive lisinopril 20 mg tablet RxNorm: 369656 TAKE 1 TABLET BY MOUTH TWICE DAILY 04/14/2016 11/09/2016 Inactive Sinemet 25 mg-100 mg tablet RxNorm: 530497 1 Tablet(s) PO BID TAKE 1 TABLET BY MOUTH TWICE A DAY IN THE MORNING AND AT SUPPER 03/23/2016 09/18/2016 Inactive Lasix 20 mg tablet RxNorm: 198247 Tablet(s) TAKE 1 TABLET BY MOUTH ONCE DAILY FOR 1 WEEK AND THEN TAKE 1 TABLET BY MOUTH EVERY 3 DAYS THEREAFTER 03/23/2016 06/06/2016 Inactive hydrocodone 5 mg-acetaminophen 325 mg tablet RxNorm: 399081 1-2 Tablet(s) PO Q6- 8H 01/21/2016 No Stop Date Active Lantus Solostar 100 unit/mL (3 mL) subcutaneous insulin pen RxNorm: 668942 24 Unit(s) SQ daily INJECT 24 UNITS DAILY OR DIRECTED 201510/05/2016 Inactive please call patient with the [facility] Kenalog 40 mg/mL suspension for injection RxNorm: 9882960 1 Milliliter(s) Inj 01/20/2016 01/20/2016 Inactive Sinemet 25 mg-100 mg tablet RxNorm: 500688 Tablet(s) TAKE 1 TABLET BY MOUTH TWICE A DAY IN THE MORNING AND AT SUPPER 11/29/2015 03/22/2016 Inactive Lantus Solostar 100 unit/mL (3 mL) subcutaneous insulin pen RxNorm: 421425 20 Unit(s) SQ daily INJECT 20 UNITS DAILY OR DIRECTED 201501/20/2016 Inactive please call patient with the [facility] Sinemet 25 mg-100 mg tablet RxNorm: 684298 Tablet(s) TAKE 1 TABLET BY MOUTH TWICE A DAY IN THE MORNING AND AT SUPPER 11/22/2015 11/28/2015 Inactive Lantus Solostar 100 unit/mL (3 mL) subcutaneous insulin pen RxNorm: 398226 Unit( s) INJECT 20 UNITS DAILY OR DIRECTED 11/22/2015 11/24/2015 Inactive Lantus Solostar 100 unit/mL (3 mL) subcutaneous insulin pen RxNorm: 522896 INJECT 20 UNITS DAILY OR DIRECTED 09/27/2015 11/21/2015 Inactive Lasix 20 mg tablet RxNorm: 556036 TAKE 1 TABLET BY MOUTH ONCE DAILY FOR 1 WEEK AND THEN TAKE 1 TABLET BY MOUTH EVERY 3 DAYS THEREAFTER 09/2512/10/2015 Inactive Lasix 20 mg tablet RxNorm: 447933 1 Tablet(s) PO daily 201509/25/2015 Inactive glipizide 10 mg tablet RxNorm: 670382 1 Tablet(s) BID TAKE 1 TABLET BY MOUTH DAILY. 06/25/2015 06/28/2016 Inactive metformin ER 500 mg tablet,extended release 24 hr RxNorm: 804109 1 Tablet(s) PO BID 04/01/2015 05/05/2016 Inactive lisinopril 20 mg tablet RxNorm: 857438 Tablet(s) TAKE 1 TABLET BY MOUTH TWICE DAILY. 03/25/2015 07/22/2015 Inactive metformin ER 500 mg tablet,extended release 24 hr RxNorm: 352468 1 Tablet(s) PO BID 03/25/2015 03/31/2015 Inactive doxycycline hyclate 100 mg capsule RxNorm: 7475049 1 Capsule(s) PO BID 03/19/2015 04/01/2015 Inactive Sinemet 25 mg-100 mg tablet RxNorm: 366185 TAKE 1 TABLET BY MOUTH TWICE A DAY IN THE MORNING AND AT SUPPER 03/05/201511/20 Inactive doxycycline hyclate 100 mg capsule RxNorm: 5543098 1 Capsule(s) PO BID 02/20/2015 02/26/2015 Inactive metolazone 5 mg tablet RxNorm: 344399 1 Tablet(s) PO daily 07/201403/21/2015 Inactive spironolactone 50 mg tablet RxNorm: 376041 1 Tablet(s) PO daily 02/11/2015 01/02/2016 Inactive Efudex 5 % topical cream RxNorm: 451853 1 TOP BID 01/28/2015 02/10/2015 Inactive potassium chloride ER 10 mEq tablet,extended release(part/ cryst) RxNorm: 3605136 1 Tablet(s) PO daily x 1week then three times weekly with the lasix. 01/28/2015 05/27/2015 Inactive Lasix 20 mg tablet RxNorm: 773548 1 Tablet(s) PO daily x 1 week, then every three days thereafter 01/28/20152015 Inactive lisinopril 20 mg tablet RxNorm: 422103 Tablet(s) TAKE 1 TABLET BY MOUTH TWICE DAILY. 11/23/2014 03/22/2015 Inactive lisinopril 20 mg tablet RxNorm: 674706 TAKE 1 TABLET BY MOUTH TWICE DAILY. 11/22/2014 11/22/2014 Inactive Sinemet 25 mg-100 mg tablet RxNorm: 619935 1 Tablet(s) PO BID TAKE 1 TABLET BY MOUTH TWICE A DAY IN THE MORNING AND AT SUPPER 10/01/2014 03/04/2015 Inactive [ SAVINGS FOR UNINSURED PATIENTS -- BIN:896931, PCN: ASPROD1, Group: [id number], ID# [id number], Process claim through SpaceList, for questions: . THIS IS NOT INSURANCE.] glipizide 10 mg tablet RxNorm: 473362 1 Tablet(s) BID TAKE 1 TABLET BY MOUTH DAILY. 10/01/2014 06/24/2015 Inactive glipizide 10 mg tablet RxNorm: 831225 Tablet(s) daily TAKE 1 TABLET BY MOUTH DAILY. 08/06/2014 09/30/2014 Inactive Lantus Solostar 100 unit/mL (3 mL) subcutaneous insulin pen RxNorm: 346333 20 Unit(s) SQ daily 07/11/2014 09/26/2015 Inactive [SAVINGS FOR UNINSURED PATIENTS -- BIN:180069, PCN: ASPROD1, Group: [id number], ID# [id number], Process claim through SpaceList, for questions: . THIS IS NOT INSURANCE.] metformin ER 500 mg tablet,extended release 24 hr RxNorm: 581801 1 Tablet(s) PO BID 07/10/2014 03/24/2015 Inactive lisinopril 20 mg tablet RxNorm: 358490 Tablet(s) TAKE 1 TABLET BY MOUTH TWICE DAILY. 07/10/2014 11/21/2014 Inactive Lantus Solostar 100 unit/mL (3 mL) subcutaneous insulin pen RxNorm: 543667 20 Unit(s) SQ daily 05/30/2014 07/10/2014 Inactive [SAVINGS FOR UNINSURED PATIENTS -- BIN:423392, PCN: ASPROD1, Group: [id number], ID# [id number], Process claim through ScoreGridact, for questions: . THIS IS NOT INSURANCE.] Sinemet 25 mg-100 mg tablet RxNorm: 246024 Tablet(s) TAKE 1 TABLET BY MOUTH TWICE A DAY IN THE MORNING AND AT SUPPER 05/30/2014 09/30/2014 Inactive [SAVINGS FOR UNINSURED PATIENTS -- BIN:594157, PCN: ASPROD1, Group: [id number], ID# [id number], Process claim through MedImpact, for questions: . THIS IS NOT INSURANCE.] lisinopril 20 mg tablet RxNorm: 954817 TAKE 1 TABLET BY MOUTH TWICE DAILY. 04/09/2014 04/08/2014 Inactive glipizide 10 mg tablet RxNorm: 833153 TAKE 1 TABLET BY MOUTH TWICE DAILY. 04/09/2014 08/05/2014 Inactive glipizide 10 mg tablet RxNorm: 703862 TAKE 1 TABLET BY MOUTH TWICE DAILY. 04/09/2014 04/08/2014 Inactive lisinopril 20 mg tablet RxNorm: 969820 TAKE 1 TABLET BY MOUTH TWICE DAILY. 04/09/2014 07/09/2014 Inactive lisinopril 20 mg tablet RxNorm: 974909 Tablet(s) TAKE ONE TABLET BY MOUTH TWICE DAILY 04/06/2014 04/08/2014 Inactive [SAVINGS FOR UNINSURED PATIENTS -- BIN:710076 , PCN: ASPROD1, Group: [id number], ID# [id number], Process claim through MedImpact, for questions: . THIS IS NOT INSURANCE.] glipizide 10 mg tablet RxNorm: 891922 1 Tablet(s) PO BID 201304/08/2014 Inactive [SAVINGS FOR UNINSURED PATIENTS -- BIN:740975, PCN: ASPROD1, Group: [id number], ID # [id number], Process claim through SpaceList, for questions: . THIS IS NOT INSURANCE.] pravastatin 10 mg tablet RxNorm: 268593 TAKE ONE TABLET BY MOUTH EVERY DAY 02/26/2014 05/26/2014 Inactive Sinemet 25 mg-100 mg tablet RxNorm: 967960 TAKE 1 TABLET BY MOUTH TWICE A DAY IN THE MORNING AND AT SUPPER 01/26/201401/25 Inactive Sinemet 25 mg-100 mg tablet RxNorm: 406188 Tablet(s) TAKE 1 TABLET BY MOUTH TWICE A DAY IN THE MORNING AND AT SUPPER 01/26/2014 05/29/2014 Inactive [SAVINGS FOR UNINSURED PATIENTS -- BIN:459001, PCN: ASPROD1, Group: [id number], ID# [id number], Process claim through SpaceList, for questions: . THIS IS NOT INSURANCE.] Sinemet 25 mg-100 mg tablet RxNorm: 634657 TAKE 1 TABLET BY MOUTH TWICE A DAY IN THE MORNING AND AT SUPPER 01/26/201401/25 Inactive Sinemet 25 mg-100 mg tablet RxNorm: 249139 TAKE 1 TABLET BY MOUTH TWICE A DAY IN THE MORNING AND AT SUPPER 01/26/201401/25 Inactive pantoprazole 40 mg tablet,delayed release RxNorm: 511240 TAKE 1 TABLET DAILY 01/25/2014 10/07/2016 Inactive finasteride 5 mg tablet RxNorm: 707941 1 Tablet(s) PO daily 12/201309/30/2014 Inactive [SAVINGS FOR UNINSURED PATIENTS -- BIN:511380, PCN: ASPROD1, Group: [id number] , ID# [id number], Process claim through SpaceList, for questions: . THIS IS NOT INSURANCE.] sucralfate 100 mg/mL oral suspension RxNorm: 505141 10 Milliliter(s) PO QID 01/23/2014 09/30/2014 Inactive dispense qs x 1 month lisinopril 20 mg tablet RxNorm: 385310 TAKE ONE TABLET BY MOUTH TWICE DAILY 12/27/2013 03/26/2014 Inactive pantoprazole 40 mg tablet,delayed release RxNorm: 240139 1 Tablet(s) PO daily 12/26/2013 12/25/2013 Inactive [SAVINGS FOR UNINSURED PATIENTS -- BIN:165671, PCN: ASPROD1, Group: [id number], ID# [id number], Process claim through MedImpact, for questions: . THIS IS NOT INSURANCE.] pantoprazole 40 mg tablet,delayed release RxNorm: 115148 1 Tablet(s) PO daily 12/26/2013 12/20/2014 Inactive [SAVINGS FOR UNINSURED PATIENTS -- BIN:427869, PCN: ASPROD1, Group: [id number], ID# [id number], Process claim through MedImpact, for questions: . THIS IS NOT INSURANCE.] gemfibrozil 600 mg tablet RxNorm: 747173 1 Tablet(s) PO BID 11/201310/23/2013 Inactive gemfibrozil 600 mg tablet RxNorm: 659224 1 Tablet(s) PO BID 11/201309/30/2014 Inactive [SAVINGS FOR UNINSURED PATIENTS -- BIN:329940, PCN: ASPROD1, Group: [id number] , ID# [id number], Process claim through MedImpact, for questions: . THIS IS NOT INSURANCE.] finasteride 5 mg tablet RxNorm: 181654 1 Tablet(s) PO daily 04/201301/24/2014 Inactive [SAVINGS FOR UNINSURED PATIENTS -- BIN:685182, PCN: ASPROD1, Group: [id number] , ID# [id number], Process claim through MedImpact, for questions: . THIS IS NOT INSURANCE.] Lantus Solostar 100 unit/mL (3 mL) subcutaneous insulin pen RxNorm: 919197 20 Unit(s) SQ daily 10/09/2013 05/29/2014 Inactive [SAVINGS FOR UNINSURED PATIENTS -- BIN:409218, PCN: ASPROD1, Group: [id number], ID# [id number], Process claim through SpaceList, for questions: . THIS IS NOT INSURANCE.] glipizide 10 mg tablet RxNorm: 593567 1 Tablet(s) PO daily 04/05/2014 Inactive [SAVINGS FOR UNINSURED PATIENTS -- BIN:117249, PCN: ASPROD1, Group: [id number] , ID# [id number], Process claim through MedIWheelzact, for questions: . THIS IS NOT INSURANCE.] Lantus Solostar 100 unit/mL (3 mL) subcutaneous insulin pen RxNorm: 346508 20 Unit(s) SQ daily 07/18/2013 10/08/2013 Inactive Sinemet 25 mg-100 mg tablet RxNorm: 817011 1 Tablet(s) PO BID one pill in morning , one at supper 07/10/2013 01/25/2014 Inactive Sinemet 25 mg-100 mg tablet RxNorm: 890444 1 Tablet(s) PO BID one pill in morning , one at supper 04/24/2013 07/09/2013 Inactive metformin ER 500 mg tablet,extended release 24 hr RxNorm: 944344 1 Tablet(s) PO BID 04/24/2013 04/18/2014 Inactive glipizide 10 mg tablet RxNorm: 982983 1 Tablet(s) PO daily 09/201310/08/2013 Inactive lisinopril 20 mg tablet RxNorm: 124137 1 Tablet(s) PO BID 04/2410/20/2013 Inactive pravastatin 10 mg tablet RxNorm: 210615 1 Tablet(s) PO daily 10/20/2013 Inactive Lantus Solostar 100 unit/mL (3 mL) subcutaneous insulin pen RxNorm: 917222 20 Unit(s) SQ daily 04/24/2013 07/17/2013 Inactive glipizide 10 mg tablet RxNorm: 684679 1 Tablet(s) PO daily 05/201304/23/2013 Inactive glipizide 10 mg tablet RxNorm: 650608 1 Tablet(s) PO daily 05/201204/19/2013 Inactive Lantus Solostar 100 unit/mL (3 mL) subcutaneous insulin pen RxNorm: 773506 16 Unit(s) SQ daily 03/20/2013 04/23/2013 Inactive Sinemet 25 mg-100 mg tablet RxNorm: 612157 1 Tablet(s) PO BID one pill in morning , one at supper 01/20/2013 04/23/2013 Inactive Lantus Solostar 100 unit/mL (3 mL) subcutaneous insulin pen RxNorm: 022742 16 Unit(s) SQ daily 01/19/2013 01/25/2013 Inactive Sinemet 25 mg-100 mg tablet RxNorm: 959772 1 Tablet(s) PO BID one pill in morning , one at supper 01/19/2013 01/19/2013 Inactive glipizide 10 mg tablet RxNorm: 633547 1 Tablet(s) PO BID 201203/19/2013 Inactive Lantus Solostar 100 unit/mL (3 mL) Sub-Q Insulin Pen RxNorm: 800637 12 Unit(s) SQ daily 12/21/2012 01/18/2013 Inactive lisinopril 20 mg tablet RxNorm: 015160 1 Tablet(s) PO BID 12/0804/23/2013 Inactive metformin ER 500 mg tablet,extended release 24 hr RxNorm: 348873 1 Tablet(s) PO BID 11/30/2012 04/23/2013 Inactive Lantus Solostar 100 unit/mL (3 mL) Sub-Q Insulin Pen RxNorm: 864552 5 Unit(s) SQ daily 11/30/2012 12/07/2012 Inactive FINASTERIDE TAB 5MG RxNorm: 10/03/2012 Inactive lisinopril 20 mg tablet RxNorm: 225108 1 Tablet(s) PO BID 09/0812/06/2012 Inactive glipizide 10 mg tablet RxNorm: 364204 1 Tablet(s) PO BID 201212/30/2012 Inactive metronidazole 500 mg tablet RxNorm: 940134 1 Tablet(s) PO TID 05/30/2012 06/08/2012 Inactive metformin ER 500 mg tablet,extended release 24 hr RxNorm: 876801 2 Tablet(s) PO daily 04/22/2012 11/29/2012 Inactive metformin ER 500 mg tablet,extended release 24 hr RxNorm: 089693 2 Tablet(s) PO daily 04/21/2012 04/21/2012 Inactive ketoconazole 2 % Topical Cream RxNorm: 960867 1 Application TOP BID 04/14/2012 05/04/2012 Inactive ketoconazole 2 % Shampoo RxNorm: 883681 1 Application TOP every other day apply to feet, leave on for 5 minutes, then rinse. 04/14/2012 04/27/2012 Inactive clotrimazole 1 % Topical Cream RxNorm: 528848 1 Application TOP BID 02/22/2012 04/03/2012 Inactive glipizide 10 mg tablet RxNorm: 907297 1 Tablet(s) PO BID 201106/18/2012 Inactive lisinopril 20 mg tablet RxNorm: 423339 1 Tablet(s) PO BID 09/0108/26/2012 Inactive metformin ER 500 mg tablet,extended release 24 hr RxNorm: 961625 2 Tablet(s) PO daily 08/10/2011 04/20/2012 Inactive metformin ER 1,000 mg 24 hr Tab Ctrl Rel RxNorm: 999074 1 Tablet(s) PO daily 07/28/2011 08/09/2011 Inactive Kombiglyze XR 5 mg-1,000 mg 24 hr Tab RxNorm: 9107149 1 Tablet(s) PO daily 07/28/2011 07/27/2011 Inactive Kombiglyze XR 5 mg-1,000 mg 24 hr Tab RxNorm: 1523478 1 Tablet(s) PO daily 07/28/2011 07/28/2011 Inactive glipizide 10 mg tablet RxNorm: 575189 1 Tablet(s) PO BID 201107/27/2011 Inactive glipizide 10 mg Tab RxNorm: 348570 1 Tablet(s) PO BID 201106/16/2011 Inactive glipizide 10 mg Tab RxNorm: 052327 1 Tablet(s) PO BID 201006/15/2011 Inactive glipizide 10 mg Tab RxNorm: 542618 1 Tablet(s) PO BID 201004/01/2011 Inactive glipizide 10 mg Tab RxNorm: 959289 Tablet(s) PO BID 201003/31/2011 Inactive Calcium + Vitamin D 600 mg calcium-200 unit tablet RxNorm: 250199 1 Tablet(s) PO BID No Start Date Active pantoprazole 40 mg tablet,delayed release RxNorm: 543817 1 Tablet(s) PO daily No Start Date 12/25/2013 Inactive Sinemet 25 mg-100 mg tablet RxNorm: 609865 1/2 Tablet(s) PO BID one pill in morning, one at supper No Start Date 01/18 Inactive levothyroxine 100 mcg tablet RxNorm: 269070 1 Tablet(s) PO daily No Start Date 10/04/2016 Inactive lisinopril 20 mg Tab RxNorm: 637751 1 Tablet(s) PO BID No Start Date 09/01/2011 Inactive hydrocodone 5 mg-acetaminophen 325 mg tablet RxNorm: 915335 1-2 Tablet(s) PO Q6- 8H No Start Date 01/20/2016 Inactive pravastatin 10 mg tablet RxNorm: 407337 1 Tablet(s) PO daily No Start Date 04/23/2013 Inactive Medication Administered Medication Codes Instructions Start Date Status Kenalog 40 mg/mL suspension for injection RxNorm: 9695598 1Milliliter 07/30/2016 No longer Active Kenalog 40 mg/mL suspension for injection RxNorm: 5190062 1Milliliter 01/20/2016 No longer Active Immunizations Vaccine [...] Code Item Item Code Result Date %Hba1C Jqk351 % HbA1c 48018-3 7.0 % 05/13/2017 %Hba1C Ban871 Gluc Ave 154 mg/dL 05/13/2017 Free T4 Tkk903 FREE T4 1.29 ng/dL 05/13/2017 Tsh Ord6 TSH (3rd IS) 4.14 uIU/mL 05/13/2017 Tsh Ord6 hTSH II 9.43 uIU/mL 02/02/2017 Comp Metabolic Tof309 NA 134 mEq/L 02/02/2017 Comp Metabolic Sgm328 K 4.4 mEq/L 02/02/2017 Comp Metabolic Lsq427 CL 99 mEq/L 02/02/2017 Comp Metabolic Hpm987 CO2 26.0 mEq/L 02/02/2017 Comp Metabolic Shr653 ANION GAP 13 02/02/2017 Comp Metabolic Zqe324 GLUCOSE 256 mg/dL 02/02/2017 Comp Metabolic Qnj153 Creat 1.6 mg/dL 02/02/2017 Comp Metabolic Adh298 eGFR 45 ml/min/1.73m2 02/02/2017 Comp Metabolic Cac190 BUN 26 mg/dL 02/02/2017 Comp Metabolic Xjw087 B/C Ratio 16.6 Ratio 02/02/2017 Comp Metabolic Ktt613 CALCIUM 8.7 mg/dL 02/02/2017 Comp Metabolic Slz011 ALK PHOS 63 U/L 02/02/2017 Comp Metabolic Pun853 AST(SGOT) 11 U/L 02/02/2017 Comp Metabolic Axm987 ALT(SGPT) 9 U/L 02/02/2017 Comp Metabolic Xog168 BILI T 0.5 mg/dL 02/02/2017 Comp Metabolic Crf291 ALBUMIN 3.7 g/dL 02/02/2017 Comp Metabolic Dxm512 TPRO 6.1 g/dL 02/02/2017 Comp Metabolic Lhx408 GLOB 2.4 g/dL 02/02/2017 Comp Metabolic Pxa326 A/G Ratio 1.6 Ratio 02/02/2017 Comp Metabolic Bvd285 Osmo 282 mOsmo 02/02/2017 %Hba1C Liu414 % HbA1c 34903-1 7.5 % 02/02/2017 %Hba1C Kaz692 Gluc Ave 169 mg/dL 02/02/2017 Free T4 Urt227 FREE T4 1.23 ng/dL 02/02/2017 Cbc With [...] 93.0 fl 02/02/2017 Cbc With Differential Ord2 [place]% 9.6 % 02/02/2017 Cbc With Differential Ord2 [...] 2.61 K/ul 02/02/2017 Cbc With Differential Ord2 [place] ABS# 0.8 K/ul 02/02/2017 Cbc With Differential Ord2 Eos ABS# 0.2 K/ul 02/02/2017 Cbc With Differential Ord2 Baso ABS# 0.1 K/ul 02/02/2017 Total T3 Ord42 TT3 0.59 ng/ml 07/14/2016 Free T4 Qlo102 FREE T4 1.14 ng/dL 07/14/2016 Cbc With [...] 34.9 % 06/22/2016 Cbc With Differential Ord2 [place]% 9.9 % 06/22/2016 Cbc With Differential Ord2 [...] 2.41 K/ul 06/22/2016 Cbc With Differential Ord2 [place] ABS# 0.7 K/ul 06/22/2016 Cbc With Differential Ord2 Eos ABS# 0.2 K/ul 06/22/2016 Cbc With Differential Ord2 Baso ABS# 0.0 K/ul 06/22/2016 Comp Metabolic Zjd013 NA 134 mEq/L 06/22/2016 Comp Metabolic Anp597 K 4.3 mEq/L 06/22/2016 Comp Metabolic Pmp268 CL 100 mEq/L 06/22/2016 Comp Metabolic Bda441 CO2 26.0 mEq/L 06/22/2016 Comp Metabolic Bci393 ANION GAP 12 06/22/2016 Comp Metabolic Gav998 GLUCOSE 222 mg/dL 06/22/2016 Comp Metabolic Hmp857 Creat 1.5 mg/dL 06/22/2016 Comp Metabolic Htl551 eGFR 49 ml/min/1.73m2 06/22/2016 Comp Metabolic Egy062 BUN 23 mg/dL 06/22/2016 Comp Metabolic Zyx810 B/C Ratio 15.9 Ratio 06/22/2016 Comp Metabolic Khr804 CALCIUM 9.0 mg/dL 06/22/2016 Comp Metabolic Ahg110 ALK PHOS 59 U/L 06/22/2016 Comp Metabolic Nfm232 AST(SGOT) 13 U/L 06/22/2016 Comp Metabolic Kvu953 ALT(SGPT) 11 U/L 06/22/2016 Comp Metabolic Cwq705 BILI T 0.5 mg/dL 06/22/2016 Comp Metabolic Nnd513 ALBUMIN 3.8 g/dL 06/22/2016 Comp Metabolic Jaz559 TPRO 6.2 g/dL 06/22/2016 Comp Metabolic Zcm870 GLOB 2.4 g/dL 06/22/2016 Comp Metabolic Lrc222 A/G Ratio 1.6 Ratio 06/22/2016 Comp Metabolic Lda482 Osmo 279 mOsmo 06/22/2016 Tsh Ord6 hTSH II 0.44 uIU/mL 06/22/2016 Comp Metabolic Ouz316 NA 134 mEq/L 04/27/2016 Comp Metabolic Fwl851 K 4.6 mEq/L 04/27/2016 Comp Metabolic Zme675 CL 99 mEq/L 04/27/2016 Comp Metabolic Wqk937 CO2 27.0 mEq/L 04/27/2016 Comp Metabolic Qof331 ANION GAP 13 04/27/2016 Comp Metabolic Sjb786 GLUCOSE 178 mg/dL 04/27/2016 Comp Metabolic Puk519 Creat 1.4 mg/dL 04/27/2016 Comp Metabolic Eul370 eGFR 53 ml/min/1.73m2 04/27/2016 Comp Metabolic Eaa230 BUN 24 mg/dL 04/27/2016 Comp Metabolic Ixs133 B/C Ratio 17.5 Ratio 04/27/2016 Comp Metabolic Kpu636 CALCIUM 9.1 mg/dL 04/27/2016 Comp Metabolic Wzo651 ALK PHOS 72 U/L 04/27/2016 Comp Metabolic Vin327 AST(SGOT) 16 U/L 04/27/2016 Comp Metabolic Qvq962 ALT(SGPT) 12 U/L 04/27/2016 Comp Metabolic Fzj744 BILI T 0.6 mg/dL 04/27/2016 Comp Metabolic Glo440 ALBUMIN 4.1 g/dL 04/27/2016 Comp Metabolic Bnx235 TPRO 6.8 g/dL 04/27/2016 Comp Metabolic Cwe679 GLOB 2.7 g/dL 04/27/2016 Comp Metabolic Occ995 A/G Ratio 1.6 Ratio 04/27/2016 Comp Metabolic Qcd635 Osmo 277 mOsmo 04/27/2016 Cbc With Differential [...] 33.1 % 04/27/2016 Cbc With Differential Ord2 [place]% 9.7 % 04/27/2016 Cbc With Differential Ord2 [...] 2.89 K/ul 04/27/2016 Cbc With Differential Ord2 [place] ABS# 0.9 K/ul 04/27/2016 Cbc With Differential Ord2 E[place] ABS# 0.2 K/ul 04/27/2016 Cbc With Differential Ord2 Baso ABS# 0.0 K/ul 04/27/2016 %Hba1C Wcl179 % HbA1c 34710-2 7.2 % 04/27/2016 %Hba1C Oxu449 Gluc Ave 160 mg/dL 04/27/2016 Cbc With [...] 31.0 pg 01/21/2016 Cbc With Differential Ord2 [place]% 8.9 % 01/21/2016 Cbc With Differential Ord2 [...] 1.91 K/ul 01/21/2016 Cbc With Differential Ord2 [place] ABS# 0.6 K/ul 01/21/2016 Cbc With Differential Ord2 Eos ABS# 0.2 K/ul 01/21/2016 Cbc With Differential Ord2 Baso ABS# 0.0 K/ul 01/21/2016 Comp Metabolic Hgs669 NA 134 mEq/L 01/21/2016 Comp Metabolic Zez823 K 5.0 mEq/L 01/21/2016 Comp Metabolic Sww434 CL 99 mEq/L 01/21/2016 Comp Metabolic Oms425 CO2 26.0 mEq/L 01/21/2016 Comp Metabolic Ekz609 ANION GAP 14 01/21/2016 Comp Metabolic Yoj410 GLUCOSE 260 mg/dL 01/21/2016 Comp Metabolic Fse062 Creat 1.5 mg/dL 01/21/2016 Comp Metabolic Oan429 eGFR 50 ml/min/1.73m2 01/21/2016 Comp Metabolic Bdd320 BUN 18 mg/dL 01/21/2016 Comp Metabolic Qot037 B/C Ratio 12.4 Ratio 01/21/2016 Comp Metabolic Iuy818 CALCIUM 8.8 mg/dL 01/21/2016 Comp Metabolic Wti258 ALK PHOS 68 U/L 01/21/2016 Comp Metabolic Uvp241 AST(SGOT) 16 U/L 01/21/2016 Comp Metabolic Gzy005 ALT(SGPT) 16 U/L 01/21/2016 Comp Metabolic Wlm858 BILI T 0.5 mg/dL 01/21/2016 Comp Metabolic Xej816 ALBUMIN 3.8 g/dL 01/21/2016 Comp Metabolic Awf719 TPRO 6.3 g/dL 01/21/2016 Comp Metabolic Ser684 GLOB 2.5 g/dL 01/21/2016 Comp Metabolic Ivg529 A/G Ratio 1.5 Ratio 01/21/2016 Comp Metabolic Tug703 Osmo 279 mOsmo 01/21/2016 %Hba1C Ccn872 % HbA1c 10200-7 7.4 % 01/21/2016 %Hba1C Ibf960 Gluc Ave 166 mg/dL 01/21/2016 Metabolic Ord15 [...] Qnt Crqnt CRP 1.5 mg/dl 09/17/2015 %Hba1C Lvj731 % HbA1c 57806-4 7.1 % 09/17/2015 %Hba1C Ehm799 Gluc Ave 157 mg/dL 09/17/2015 Cbc With [...] 31.7 pg 08/06/2015 Cbc With Differential Ord2 [place]% 9.6 % 08/06/2015 Cbc With Differential Ord2 [...] 2.90 K/ul 08/06/2015 Cbc With Differential Ord2 [place] ABS# 0.7 K/ul 08/06/2015 Cbc With Differential Ord2 Eos ABS# 0.2 K/ul 08/06/2015 Cbc With Differential Ord2 Baso ABS# 0.0 K/ul 08/06/2015 Cbc With Differential Ord2 New Analyzer Notice Please note new ref ranges starting 05-01-2015 due to implemntation of new five part differential hematolgy analyzer. 08/06/2015 Comp Metabolic Efl745 NA 132 mEq/L 08/06/2015 Comp Metabolic Gff617 K 4.6 mEq/L 08/06/2015 Comp Metabolic Fwo267 CL 98 mEq/L 08/06/2015 Comp Metabolic Tdq259 CO2 25.0 mEq/L 08/06/2015 Comp Metabolic Rsx871 ANION GAP 14 08/06/2015 Comp Metabolic Vdo293 GLUCOSE 170 mg/dL 08/06/2015 Comp Metabolic Ams349 Creat 1.5 mg/dL 08/06/2015 Comp Metabolic Lor420 eGFR 46 ml/min/1.73m2 08/06/2015 Comp Metabolic Jfd722 BUN 21 mg/dL 08/06/2015 Comp Metabolic Gmm778 B/C Ratio 13.6 Ratio 08/06/2015 Comp Metabolic Sww384 CALCIUM 8.9 mg/dL 08/06/2015 Comp Metabolic Uwg027 ALK PHOS 60 U/L 08/06/2015 Comp Metabolic Mcr682 AST(SGOT) 16 U/L 08/06/2015 Comp Metabolic Aji611 ALT(SGPT) 18 U/L 08/06/2015 Comp Metabolic Xgh741 BILI T 0.4 mg/dL 08/06/2015 Comp Metabolic Yzo297 ALBUMIN 3.8 g/dL 08/06/2015 Comp Metabolic Ana420 TPRO 6.3 g/dL 08/06/2015 Comp Metabolic Lrb286 GLOB 2.5 g/dL 08/06/2015 Comp Metabolic Zof285 A/G Ratio 1.6 Ratio 08/06/2015 Comp Metabolic Ppb677 Osmo 271 mOsmo 08/06/2015 Tsh Ord6 hTSH II 0.95 uIU/mL 06/17/2015 Free T4 Wvs681 FREE T4 1.08 ng/dL 06/17/2015 Metabolic Ord15 [...] Ord15 CALCIUM 9.0 mg/dL 05/06/2015 Comp Metabolic Bta030 NA 143 mEq/L 03/04/2015 Comp Metabolic Blm923 K 4.5 mEq/L 03/04/2015 Comp Metabolic Ucx705 CL 92 mEq/L 03/04/2015 Comp Metabolic Jzu595 CO2 24.0 mEq/L 03/04/2015 Comp Metabolic Mrc611 ANION GAP 32 03/04/2015 Comp Metabolic Lft113 GLUCOSE 72 mg/dL 03/04/2015 Comp Metabolic Hof731 Creat 1.5 mg/dL 03/04/2015 Comp Metabolic Sxy850 eGFR 48 ml/min/1.73m2 03/04/2015 Comp Metabolic Bmp434 BUN 27 mg/dL 03/04/2015 Comp Metabolic Nke362 B/C Ratio 18.0 Ratio 03/04/2015 Comp Metabolic Vlu888 CALCIUM 9.1 mg/dL 03/04/2015 Comp Metabolic Caz705 ALK PHOS 58 U/L 03/04/2015 Comp Metabolic Ixd625 AST(SGOT) 16 U/L 03/04/2015 Comp Metabolic Dzc138 ALT(SGPT) 13 U/L 03/04/2015 Comp Metabolic Dab420 BILI T 0.6 mg/dL 03/04/2015 Comp Metabolic Oiv333 ALBUMIN 4.0 g/dL 03/04/2015 Comp Metabolic Cey883 TPRO 6.6 g/dL 03/04/2015 Comp Metabolic Vtd017 GLOB 2.6 g/dL 03/04/2015 Comp Metabolic Pok729 A/G Ratio 1.6 Ratio 03/04/2015 Comp Metabolic Oku202 Osmo 289 mOsmo 03/04/2015 %Hba1C Dqi587 % HbA1c 37409-4 7.3 % 01/28/2015 %Hba1C Bnp389 Gluc Ave 163 mg/dL 01/28/2015 MICRALUR 6532183 MICRL MG/L 13.2 MG/L 10/01/2014 MICRALUR 2834354 XM.ALB/CRE 48.9 MG/GCR 10/01/2014 MICRALUR 5646506 CREAT MG/D 27 MG/DL 10/01/2014 MICRALUR 5069384 CRE/100 0.27 G/L 10/01/2014 A1C HPLC 2524064 A1C HPLC 00521-3 7.3 % 10/01/2014 TSH 5626870 TSH 0.423 uIU/ML 10/01/2014 TSH 7412645 TSH 0.612 uIU/ML 10/18/2013 A1C HPLC 6714325 A1C HPLC 75124-3 6.8 % 10/18/2013 GFR CALC 3165688 GFR AA >60 ML/MIN 10/18/2013 GFR CALC 0185744 GFR NON-AA 52.0L ML/MIN 10/18/2013 LIPID GRP HDL TEST 30 MG/DL 10/18/2013 LIPID GRP TRIG 425 MG/DL 10/18/2013 LIPID GRP TEST LDL HI TRIG MG/DL 10/18/2013 LIPID GRP CHOL 185 MG/DL 10/18/2013 LIPID GRP RCHOL/HDL 6.17 RATIO 10/18/2013 MICRALUR 6152492 MICRL MG/L 15.6 MG/L 10/18/2013 MICRALUR XM.ALB/CRE 9.2 MG/GCR 10/18/2013 MICRALUR 3867764 CREAT MG/D 169 MG/DL 10/18/2013 MICRALUR 5861673 CRE/100 1.69 G/L 10/18/2013 CHEM 14 3904599 AST 20 U/L 10/18/2013 CHEM 14 9485194 ALT 13 IU/L 10/18/2013 CHEM 14 4633693 BUN 27 MG/DL 10/18/2013 CHEM 14 7436209 ALBUMIN 4.2 GM/DL 10/18/2013 CHEM 14 6769751 CHLORIDE 100 MMOL/L 10/18/2013 CHEM 14 6992233 BILI TOT 0.5 MG/DL 10/18/2013 CHEM 14 5136094 ALK PHOS 60 U/L 10/18/2013 CHEM 14 9229151 SODIUM 131 MMOL/L 10/18/2013 CHEM 14 6701066 CREATININE 1.32 MG/DL 10/18/2013 CHEM 14 1979454 CALCIUM 9.2 MG/DL 10/18/2013 CHEM 14 6658714 POTASSIUM 4.7 MMOL/L 10/18/2013 CHEM 14 9250704 PROT TOT 7.7 GM/DL 10/18/2013 CHEM 14 1986867 GLUCOSE 140 MG/DL 10/18/2013 CHEM 14 8718313 BICARB 24 MMOL/L 10/18/2013 CHEM 14 3376389 ANION GAP 7 MEQ/L 10/18/2013 PSA EQ 20110613 PSA EQ 7.79 NG/ML 10/18/2013 CBC 7047291 WBC 6.6 10e9/L 10/18/2013 CBC 5792045 RBC 4.58 10e12/L 10/18/2013 CBC 2842053 HGB 14.6 g/dL 10/18/2013 CBC 4769242 HCT DET 42.8 % 10/18/2013 CBC 4935831 MCV 93.4 fL 10/18/2013 CBC 7389725 MCH 31.9 pg 10/18/2013 CBC 5349505 MCHC 34.1 g/dL 10/18/2013 CBC 5143108 PLT 172 10e9/L 10/18/2013 CBC 0510079 MPV 9.3 fL 10/18/2013 CBC 4397987 JAYESH % 55.4 % 10/18/2013 CBC 6745869 LY % 33.0 % 10/18/2013 CBC 4360209 MON % 8.8 % 10/18/2013 CBC 7747047 EOS % 2.6 % 10/18/2013 CBC 2286034 BASO % 0.2 % 10/18/2013 CBC 2351387 RDW 12.7 % 10/18/2013 CBC 3536802 ABS JAYESH 3.66 10e9/L 10/18/2013 CBC 6263678 ABS LYMPH 2.18 10e9/L 10/18/2013 CBC 0590765 ABS MONO 0.58 10e9/L 10/18/2013 CBC 4461786 ABS EOS 0.17 10e9/L 10/18/2013 CBC 2178634 ABS BASO 0.01 10e9/L 10/18/2013 CBC 1378909 RDW-SD 42.6 fL 10/18/2013 TSH 8681487 TSH 1.257 uIU/ML 05/05/2013 CHEM 14 4796557 AST 15 U/L 05/05/2013 CHEM 14 6127735 ALT 13 IU/L 05/05/2013 CHEM 14 4206641 BUN 22 MG/DL 05/05/2013 CHEM 14 5031200 ALBUMIN 4.2 GM/DL 05/05/2013 CHEM 14 0631803 CHLORIDE 104 MMOL/L 05/05/2013 CHEM 14 8528107 BILI TOT 0.6 MG/DL 05/05/2013 CHEM 14 5199579 ALK PHOS 52 U/L 05/05/2013 CHEM 14 4906845 SODIUM 137 MMOL/L 05/05/2013 CHEM 14 8057885 CREATININE 1.25 MG/DL 05/05/2013 CHEM 14 4519253 CALCIUM 9.1 MG/DL 05/05/2013 CHEM 14 3469897 POTASSIUM 5.0 MMOL/L 05/05/2013 CHEM 14 6833676 PROT TOT 6.7 GM/DL 05/05/2013 CHEM 14 3905870 GLUCOSE 142 MG/DL 05/05/2013 CHEM 14 1899329 BICARB 27 MMOL/L 05/05/2013 CHEM 14 6490924 ANION GAP 6 MEQ/L 05/05/2013 GFR CALC 0564111 GFR AA >60 ML/MIN 05/05/2013 GFR CALC 2233756 GFR NON-AA 56.0L ML/MIN 05/05/2013 CBC 6080632 WBC 6.1 10e9/L 05/05/2013 CBC 6389318 RBC 4.74 10e12/L 05/05/2013 CBC 1944172 HGB 14.7 g/dL 05/05/2013 CBC 3156984 HCT DET 43.6 % 05/05/2013 CBC 9381659 MCV 92.0 fL 05/05/2013 CBC 9328290 MCH 31.0 pg 05/05/2013 CBC 8492546 MCHC 33.7 g/dL 05/05/2013 CBC 2044613 PLT 168 10e9/L 05/05/2013 CBC 3971704 MPV 9.3 fL 05/05/2013 CBC 3692160 JAYESH % 53.2 % 05/05/2013 CBC 5792519 LY % 35.3 % 05/05/2013 CBC 3901327 MON % 8.7 % 05/05/2013 CBC 0076124 EOS % 2.5 % 05/05/2013 CBC 6138502 BASO % 0.3 % 05/05/2013 CBC 9938530 RDW 13.5 % 05/05/2013 CBC 7935761 ABS JAYESH 3.25 10e9/L 05/05/2013 CBC 4015881 ABS LYMPH 2.15 10e9/L 05/05/2013 CBC 0617477 ABS MONO 0.53 10e9/L 05/05/2013 CBC 7881122 ABS EOS 0.15 10e9/L 05/05/2013 CBC 9688967 ABS BASO 0.02 10e9/L 05/05/2013 CBC 6353485 RDW-SD 44.8 fL 05/05/2013 A1C HPLC 4590522 A1C HPLC 21197-8 6.4 % 05/05/2013 LIPID GRP HDL TEST 32 MG/DL 05/05/2013 LIPID GRP TRIG 170 MG/DL 05/05/2013 LIPID GRP TEST LDL 73 MG/DL 05/05/2013 LIPID GRP CHOL 139 MG/DL 05/05/2013 LIPID GRP RCHOL/HDL 4.34 RATIO 05/05/2013 CHEM 14 4964773 AST 17 U/L 11/25/2012 CHEM 14 7882241 ALT 21 IU/L 11/25/2012 CHEM 14 4183340 BUN 20 MG/DL 11/25/2012 CHEM 14 8555198 ALBUMIN 4.4 GM/DL 11/25/2012 CHEM 14 2393431 CHLORIDE 99 MMOL/L 11/25/2012 CHEM 14 6982444 BILI TOT 0.6 MG/DL 11/25/2012 CHEM 14 8648537 ALK PHOS 50 U/L 11/25/2012 CHEM 14 5617219 SODIUM 129 MMOL/L 11/25/2012 CHEM 14 1238299 CREATININE 1.20 MG/DL 11/25/2012 CHEM 14 4597627 CALCIUM 9.2 MG/DL 11/25/2012 CHEM 14 5375509 POTASSIUM 5.1 MMOL/L 11/25/2012 CHEM 14 3326661 PROT TOT 6.7 GM/DL 11/25/2012 CHEM 14 6050503 GLUCOSE 196 MG/DL 11/25/2012 CHEM 14 6865794 BICARB 25 MMOL/L 11/25/2012 CHEM 14 5600213 ANION GAP 5 MEQ/L 11/25/2012 CBC 9978553 WBC 6.1 10e9/L 11/25/2012 CBC 3849833 RBC 4.78 10e12/L 11/25/2012 CBC 4811343 HGB 15.0 g/dL 11/25/2012 CBC 1723475 HCT DET 43.4 % 11/25/2012 CBC 4289752 MCV 90.8 fL 11/25/2012 CBC 6266423 MCH 31.4 pg 11/25/2012 CBC 1559662 MCHC 34.6 g/dL 11/25/2012 CBC 7442939 PLT 174 10e9/L 11/25/2012 CBC 2717887 MPV 9.5 fL 11/25/2012 CBC 8484061 JAYESH % 54.6 % 11/25/2012 CBC 4319058 LY % 32.9 % 11/25/2012 CBC 1276592 MON % 9.6 % 11/25/2012 CBC 3743399 EOS % 2.6 % 11/25/2012 CBC 6667203 BASO % 0.3 % 11/25/2012 CBC 5488699 RDW 12.9 % 11/25/2012 CBC 5661820 ABS JAYESH 3.33 10e9/L 11/25/2012 CBC 9482086 ABS LYMPH 2.01 10e9/L 11/25/2012 CBC 4343254 ABS MONO 0.59 10e9/L 11/25/2012 CBC 6227550 ABS EOS 0.16 10e9/L 11/25/2012 CBC 4577138 ABS BASO 0.02 10e9/L 11/25/2012 CBC 5909775 RDW-SD 42.3 fL 11/25/2012 LIPID GRP HDL TEST 39 MG/DL 11/25/2012 LIPID GRP TRIG 204 MG/DL 11/25/2012 LIPID GRP 4891333 TEST LDL 100 MG/DL 11/25/2012 LIPID GRP CHOL 180 MG/DL 11/25/2012 LIPID GRP RCHOL/HDL 4.62 RATIO 11/25/2012 A1C HPLC 4924804 A1C HPLC 94721-1 8.2 % 11/25/2012 GFR CALC 2178559 GFR AA >60 ML/MIN 11/25/2012 GFR CALC 5506729 GFR NON-AA 58.0L ML/MIN 11/25/2012 TSH 1933317 TSH 0.636 uIU/ML 01/13/2012 A1C HPLC 5275826 A1C HPLC 33949-9 7.9 % 01/13/2012 GFR CALC 7150175 GFR AA >60 ML/MIN 01/13/2012 GFR CALC 9763479 GFR NON-AA 59.0L ML/MIN 01/13/2012 CBC 0862702 WBC 7.8 10e9/L 01/13/2012 CBC 3203295 RBC 4.93 10e12/L 01/13/2012 CBC 5828868 HGB 15.3 g/dL 01/13/2012 CBC 0151540 HCT DET 43.6 % 01/13/2012 CBC 5259584 MCV 88.4 fL 01/13/2012 CBC 6783474 MCH 31.0 pg 01/13/2012 CBC 5692702 MCHC 35.1 g/dL 01/13/2012 CBC 2522294 PLT 173 10e9/L 01/13/2012 CBC 2454228 MPV 9.1 fL 01/13/2012 CBC 4342966 JAYESH % 57.6 % 01/13/2012 CBC 2811300 LY % 31.5 % 01/13/2012 CBC 4876358 MON % 8.8 % 01/13/2012 CBC 5849964 EOS % 1.8 % 01/13/2012 CBC 0117188 BASO % 0.3 % 01/13/2012 CBC 9058933 RDW 12.9 % 01/13/2012 CBC 7354610 ABS JAYESH 4.49 10e9/L 01/13/2012 CBC 6125726 ABS LYMPH 2.46 10e9/L 01/13/2012 CBC 9733531 ABS MONO 0.69 10e9/L 01/13/2012 CBC 9951213 ABS EOS 0.14 10e9/L 01/13/2012 CBC 1120497 ABS BASO 0.02 10e9/L 01/13/2012 CBC 1289031 RDW-SD 41.2 fL 01/13/2012 CHEM 14 8107748 AST 21 U/L 01/13/2012 CHEM 14 6297005 ALT 23 IU/L 01/13/2012 CHEM 14 9349828 BUN 20 MG/DL 01/13/2012 CHEM 14 2966346 ALBUMIN 4.4 GM/DL 01/13/2012 CHEM 14 6136970 CHLORIDE 94 MMOL/L 01/13/2012 CHEM 14 6840625 BILI TOT 0.5 MG/DL 01/13/2012 CHEM 14 4368216 ALK PHOS 60 U/L 01/13/2012 CHEM 14 2086858 SODIUM 131 MMOL/L 01/13/2012 CHEM 14 8308499 CREATININE 1.20 MG/DL 01/13/2012 CHEM 14 0236598 CALCIUM 9.5 MG/DL 01/13/2012 CHEM 14 9863385 POTASSIUM 4.3 MMOL/L 01/13/2012 CHEM 14 1853537 PROT TOT 6.5 GM/DL 01/13/2012 CHEM 14 3507176 GLUCOSE 172 MG/DL 01/13/2012 CHEM 14 9704388 BICARB 26 MMOL/L 01/13/2012 CHEM 14 6948101 ANION GAP 11 MEQ/L 01/13/2012 Review of [...] WOUN RTS (CULTURE OTHR SPECIMN AEROBIC) CPT-4: 79097 03/19/2015 DRAINAGE OF SKIN ABSCESS CPT-4: 52405 03/19/2015 ADMIN PNEUMOCOCCAL VACCINE SNOMED CT: 41001380 CPT-4: G0009 03/08/2015 PNEUMOCOCCAL VACC 13 THALIA IM Formatting Model/CDA Sections, Assigned to SNOMED CT: 79656294 CPT-4: 72476Ejigmbn 03/08/2015 ADMIN PNEUMOCOCCAL VACCINE SNOMED CT: 41659623 CPT-4: G0009 01/23/2014 Pneumococcal Polysaccharide Vaccine, 23-Valent, Ad Assigned to/Merissa Sutton CPT-4: 21605Cygwdhp 01/23/2014 DESTRUCT PREMALG LESION CPT-4: 97727 10/24/2013 DESTRUCT PREMALG LES 2-14 CPT-4: 16371 10/24/2013 ROUTINE VENIPUNCTURE CPT-4: 61643 05/05/2013 PRESCRIP TRANSMIT VIA ERX SY CPT-4: G8553 04/24/2013 DESTRUCT PREMALG LESION CPT-4: 69917 12/26/2012 PRESCRIP TRANSMIT VIA ERX SY CPT-4: G8553 11/30/2012 ROUTINE VENIPUNCTURE CPT-4: 90130 11/25/2012 PRESCRIP TRANSMIT VIA ERX SY CPT-4: G8553 05/30/2012 PRESCRIP TRANSMIT VIA ERX SY CPT-4: G8553 04/14/2012 PRESCRIP TRANSMIT VIA ERX SY CPT-4: G8553 02/22/2012 ROUTINE VENIPUNCTURE CPT-4: 21143 01/13/2012 ROUTINE VENIPUNCTURE CPT-4: 44363 08/06/2011 ROUTINE VENIPUNCTURE CPT-4: 39440 06/25/2011 Vital Signs Date Vital 05/13/2017 Blood Pressure 1: 154/82 Code : 8480-6 BMI: 30.0 Code : 30492-6 Heart Rate 1 : 65 bpm Height: 6'2" SpO2: 98% Weight: 234 lbs 04/28/2017 Blood Pressure 1: 134/78 Code : 8480-6 BMI: 29.7 Code : 39736-5 Heart Rate 1 : 73 bpm Height: 6'2" SpO2: 94% Weight: 231 lbs 04/15/2017 Blood Pressure 1: 152/74 Code : 8480-6 BMI: 29.7 Code : 67174-2 Heart Rate 1 : 64 bpm Height: 6'2" SpO2: 98% Weight: 231 lbs 02/04/2017 Blood Pressure 1: 140/78 Code : 8480-6 BMI: 30.0 Code : 67799-1 Heart Rate 1 : 83 bpm Height: 6'2" SpO2: 97% Weight: 234 lbs 10/12/2016 Blood Pressure 1: 148/68 Code : 8480-6 BMI: 29.3 Code : 07656-6 Heart Rate 1 : 65 bpm Height: 6'2" SpO2: 100% Weight: 228 lbs 10/08/2016 Blood Pressure 1: 14868 Code : 8480-6 BMI: 29.3 Code : 90634-7 Heart Rate 1 : 65 bpm Height: 6'2" SpO2: 100% Weight: 228 lbs 8 oz 09/10/2016 Blood Pressure 1: 142/68 Code : 8480-6 BMI: 29.3 Code : 69236-7 Heart Rate 1 : 75 bpm Height: 6'2" SpO2: 97% Weight: 228 lbs 08/24/2016 Blood Pressure 1: 156/86 Code : 8480-6 BMI: 28.1 Code : 13793-2 Heart Rate 1 : 72 bpm Height: 6'2" SpO2: 97% Weight: 219 lbs 08/06/2016 Blood Pressure 1: 172/90 Code : 8480-6 BMI: 29.0 Code : 38204-9 Heart Rate 1 : 68 bpm Height: 6'2" SpO2: 98% Temperature: 36.1 (C) / 96.9 (F) Weight: 226 lbs 07/30/2016 Blood Pressure 1: 138/86 Code : 8480-6 BMI: 29.7 Code : 35157-3 Heart Rate 1 : 80 bpm Height: 6'2" SpO2: 95% Temperature: 36.5 (C) / 97.7 (F) Weight: 231 lbs 06/22/2016 Blood Pressure 1: 145/82 Code : 8480-6 Heart Rate 1: 77 bpm Respiratory Rate : 18 bpm SpO2: 97% Weight: 231 lbs 04/27/2016 Blood Pressure 1: 158/76 Code : 8480-6 Blood Pressure 1: 182/78 Code: 8480-6 BMI: 30.4 Code: 84092-8 Heart Rate 1: 69 bpm Height: 6'2" SpO2: 97% Weight: 237 lbs 03/23/2016 Blood Pressure 1: 140/82 Code : 8480-6 BMI: 30.4 Code : 76726-5 Heart Rate 1 : 77 bpm Height: 6'2" SpO2: 93% Weight: 237 lbs 01/20/2016 Blood Pressure 1: 142/80 Code : 8480-6 BMI: 31.2 Code : 92060-0 Heart Rate 1 : 64 bpm Height: 6'2" SpO2: 93% Weight: 243 lbs 12/16/2015 Blood Pressure 1: 138/88 Code : 8480-6 BMI: 30.3 Code : 39214-8 Heart Rate 1 : 62 bpm Height: 6'2" SpO2: 97% Weight: 236 lbs 12/09/2015 Blood Pressure 1: 148/80 Code : 8480-6 Blood Pressure 1: 198/92 Code: 8480-6 Blood Pressure 1: 152/70 Code: 8480-6 BMI: 30.3 Code: 67123-1 Heart Rate 1: 84 bpm Height: 6'2" Weight: 236 lbs 11/25/2015 Blood Pressure 1: 160/80 Code : 8480-6 BMI: 30.2 Code : 72701-3 Heart Rate 1 : 68 bpm Height: 6'2" SpO2: 96% Weight: 235 lbs 09/02/2015 Blood Pressure 1: 122/64 Code : 8480-6 BMI: 30.2 Code : 29460-3 Heart Rate 1 : 86 bpm Height: 6'2" SpO2: 98% Weight: 235 lbs 08/05/2015 Blood Pressure 1: 130/70 Code : 8480-6 Heart Rate 1: 81 bpm SpO2: 97% Weight: 233 lbs 07/25/2015 Blood Pressure 1: 142/80 Code : 8480-6 BMI: 30.0 Code : 67092-2 Heart Rate 1 : 74 bpm Height: 6'2" SpO2: 95% Weight: 234 lbs 06/03/2015 Blood Pressure 1: 150/68 Code : 8480-6 BMI: 30.0 Code : 98977-4 Heart Rate 1 : 66 bpm Height: 6'2" SpO2: 96% Weight: 234 lbs 03/19/2015 Blood Pressure 1: 154/78 Code : 8480-6 BMI: 30.3 Code : 22966-2 Heart Rate 1 : 63 bpm Height: 6'2" SpO2: 96% Weight: 236 lbs 03/04/2015 Blood Pressure 1: 124/68 Code : 8480-6 BMI: 30.2 Code : 26334-2 Heart Rate 1 : 60 bpm Height: 6'2" SpO2: 97% Weight: 235 lbs 02/20/2015 Blood Pressure 1: 160/84 Code : 8480-6 BMI: 30.8 Code : 27302-2 Heart Rate 1 : 79 bpm Height: 6'2" SpO2: 96% Weight: 240 lbs 02/11/2015 Blood Pressure 1: 170/102 Code: 8480-6 BMI: 31.1 Code: 31931-2 Heart Rate 1: 81 bpm Height: 6'2" SpO2: 96% Weight: 242 lbs 01/28/2015 Blood Pressure 1: 174/80 Code : 8480-6 Blood Pressure 2: 168/74 Code: 8480-6 BMI: 31.2 Code: 58560-1 Heart Rate 1: 74 bpm Height: 6'2" SpO2: 97% Weight: 243 lbs 10/01/2014 Blood Pressure 1: 152/84 Code : 8480-6 BMI: 30.4 Code : 70206-8 Heart Rate 1 : 80 bpm Height: 6'2" SpO2: 96% Weight: 237 lbs 05/30/2014 Blood Pressure 1: 140/82 Code : 8480-6 BMI: 30.6 Code : 37456-9 Heart Rate 1 : 86 bpm Height: 6'2" Weight: 238 lbs 02/28/2014 Blood Pressure 1: 152/86 Code : 8480-6 BMI: 29.5 Code : 51502-5 Heart Rate 1 : 64 bpm Height: 6'2" Weight: 230 lbs 01/23/2014 Blood Pressure 1: 142/68 Code : 8480-6 BMI: 29.7 Code : 94657-0 Heart Rate 1 : 80 bpm Height: 6'2" Weight: 231 lbs 12/26/2013 Blood Pressure 1: 150/72 Code : 8480-6 BMI: 29.3 Code : 48117-5 Heart Rate 1 : 60 bpm Height: 6'2" Respiratory Rate: 16 bpm Weight: 228 lbs 8 oz 10/24/2013 Blood Pressure 1: 140/84 Code : 8480-6 Heart Rate 1: 60 bpm 10/17/2013 Blood Pressure 1: 166/72 Code : 8480-6 BMI: 28.8 Code : 48374-4 Heart Rate 1 : 68 bpm Height: 6'2" Weight: 224 lbs 07/24/2013 Blood Pressure 1: 112/64 Code : 8480-6 BMI: 29.1 Code : 39044-3 Heart Rate 1 : 80 bpm Height: 6'2" Weight: 227 lbs 04/24/2013 Blood Pressure 1: 130/74 Code : 8480-6 BMI: 28.9 Code : 57094-6 Heart Rate 1 : 76 bpm Height: 6'2" Weight: 225 lbs 6 oz 03/20/2013 Blood Pressure 1: 150/70 Code : 8480-6 BMI: 29.7 Code : 33730-0 Heart Rate 1 : 76 bpm Height: 6'2" Temperature: 37.0 (C) / 98.6 (F) Weight: 231 lbs 01/19/2013 Blood Pressure 1: 150/78 Code : 8480-6 BMI: 30.2 Code : 91014-1 Heart Rate 1 : 84 bpm Height: 6'2" Weight: 235 lbs 12/26/2012 Blood Pressure 1: 142/78 Code : 8480-6 BMI: 29.9 Code : 00976-3 Heart Rate 1 : 84 bpm Height: 6'2" Weight: 233 lbs 12/21/2012 Blood Pressure 1: 142/80 Code : 8480-6 BMI: 29.5 Code : 32147-1 Heart Rate 1 : 80 bpm Height: 6'2" Weight: 230 lbs 11/30/2012 Blood Pressure 1: 146/78 Code : 8480-6 BMI: 29.4 Code : 10943-7 Heart Rate 1 : 80 bpm Height: 6'2" Weight: 229 lbs 05/30/2012 Blood Pressure 1: 150/74 Code : 8480-6 BMI: 29.4 Code : 11172-6 Heart Rate 1 : 76 bpm Height: 6'2" Respiratory Rate: 16 bpm Weight: 229 lbs 04/26/2012 Blood Pressure 1: 124/64 Code : 8480-6 Heart Rate 1: 90 bpm SpO2: 98% Temperature: 36.7 (C) / 98.1 (F) Weight: 04/14/2012 Blood Pressure 1: 150/88 Code : 8480-6 Blood Pressure 2: 150/90 Code: 8480-6 BMI: 29.4 Code: 53325-6 Heart Rate 1: 72 bpm Height: 6'2" [...] Code : 8480-6 BMI: 28.9 Code : 06952-8 Heart Rate 1 : 64 bpm Height: 6'2" Weight: 225 lbs 08/05/2011 Blood Pressure 1: 142/72 Code : 8480-6 BMI: 29.3 Code : 88680-3 Heart Rate 1 : 80 bpm Height: 6'2" Weight: 228 lbs 07/01/2011 Blood Pressure 1: 136/70 Code : 8480-6 BMI: 29.2 Code : 19491-4 Heart Rate 1 : 68 bpm Height: [...] doing physical therapy for parkinson's disease at [facility] diabetes mellitus Alleviating Factors insulin 01/19/2013 None [...] data Encounters Encounter Performer Location Codes Date 45309 EST. PATIENT, LEVEL IV Diagnosis: Essential (primary) hypertension[ICD10: I10] Diagnosis: Localized edema[ICD10: R60.0] Diagnosis: Atrophy of thyroid (acquired)[ICD10: E03.4] Diagnosis: Type 2 diabetes mellitus without complications[ICD10: E11.9] Yoli Medley MD, [facility] CPT-4: 14128 05/13/2017 [id number] EST. PATIENT, LEVEL III Diagnosis: Rash and other nonspecific skin eruption[ICD10: R21] Bonita Medley MD, [facility] CPT-4: 79583 04/28/2017 61846 EST. PATIENT, LEVEL IV Diagnosis: Essential (primary) hypertension[ICD10: I10] Diagnosis: Atrophy of thyroid (acquired)[ICD10: E03.4] Diagnosis: Type 2 diabetes mellitus without complications[ICD10: E11.9] Bonita Medley MD , [facility] CPT-4: 03098 04/15/2017 ([id number]) 07607 EST. PATIENT, LEVEL IV Diagnosis: Type 2 diabetes mellitus with hyperglycemia[ICD10: E11.65] Diagnosis: Essential (primary) hypertension[ICD10: I10] Diagnosis: Hypothyroidism, unspecified[ICD10: E03.9] Ginny Medley MD, [facility] CPT-4: 97455 02/04/2017 ([id number]) 66536 EST. PATIENT, LEVEL III Diagnosis: Essential (primary) hypertension[ICD10: I10] Diagnosis: Hypothyroidism, unspecified[ICD10: E03.9] Ginny Medley MD, [facility] CPT-4: 33669 10/08/2016 ([id number]) 84253 EST. PATIENT, LEVEL III Diagnosis: Allergic rhinitis due to pollen[ICD10: J30.1] Diagnosis: Hypothyroidism, unspecified[ICD10: E03.9] Ginny Medley MD, [facility] CPT-4: 96589 09/10/2016 ([id number]) 71353 EST. 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 PATIENT, LEVEL IV Diagnosis: Abdominal distension (gaseous)[ICD10: R14.0] Diagnosis: Cough[ICD10: R05] Diagnosis: Acute bronchitis, unspecified[ICD10: J20.9] Diagnosis: Essential (primary) hypertension[ICD10: I10] Ginny Medley MD, [facility] CPT-4: 00793 08/06/2016 ([id number]) 67005 EST. PATIENT, LEVEL III Diagnosis: Cough[ICD10: R05] Diagnosis: Acute upper respiratory infection, unspecified[ICD10: J06.9] Ginny Medley MD, [facility] CPT-4: 71256 07/30/2016 ([id number]) 94364 EST. PATIENT, LEVEL IV Diagnosis: Type 2 diabetes mellitus with hyperglycemia[ICD10: E11.65] Diagnosis: Essential (primary) hypertension[ICD10: I10] Diagnosis: Parkinson's disease[ICD10: G20] Diagnosis: Localized edema[ICD10: R60.0] Ginny Medley MD, [facility] CPT-4: 56516 06/22/2016 ([id number]) 44959 EST. PATIENT, LEVEL IV Diagnosis: Essential (primary) hypertension[ICD10: I10] Diagnosis: Type 2 diabetes mellitus with hyperglycemia[ICD10: E11.65] Diagnosis: Hypo-osmolality and hyponatremia[ICD10: E87.1] Diagnosis: Hesitancy of micturition[ICD10: R39.11] Ginny Medley MD, [facility] CPT-4: 78934 04/27/2016 ([id number]) 69283 EST. PATIENT, LEVEL III Diagnosis: Essential (primary) hypertension[ICD10: I10] Diagnosis: Localized edema[ICD10: R60.0] Ginny Medley MD, [facility] CPT-4: 33063 03/23/2016 ([id number]) 56028 EST. PATIENT, LEVEL IV Diagnosis: Low back pain[ICD10: M54.5] Diagnosis: Hypo-osmolality and hyponatremia[ICD10: E87.1] Diagnosis: Essential (primary) hypertension[ICD10: I10] Diagnosis: Localized edema[ICD10: R60.0] Diagnosis: Type 2 diabetes mellitus with hyperglycemia[ICD10: E11.65] Ginny Medley MD, [facility] CPT-4: 76331 01/20/2016 ([id number]) 44266 EST. PATIENT, LEVEL III Diagnosis: Type 2 diabetes mellitus with hyperglycemia[ICD10: E11.65] Diagnosis: Essential (primary) hypertension[ICD10: I10] Diagnosis: Hypo-osmolality and hyponatremia[ICD10: E87.1] Ginny Medley MD, [facility] CPT-4: 32242 12/16/2015 ([id number]) 42157 EST. PATIENT, LEVEL III Diagnosis: Essential (primary) hypertension[ICD10: I10] Diagnosis: Hypo-osmolality and hyponatremia[ICD10: E87.1] Ginny Medley MD, [facility] CPT-4: 30222 12/09/2015 ([id number]) 76688 EST. PATIENT, LEVEL IV Diagnosis: Essential (primary) hypertension[ICD10: I10] Diagnosis: Type 2 diabetes mellitus with hyperglycemia[ICD10: E11.65] Diagnosis: Parkinson's disease[ICD10: G20] Ginny Medley MD, [facility] CPT-4: 58213 11/25/2015 46714 EST. PATIENT, LEVEL III Diagnosis: Localized edema[ICD10: R60.0] Diagnosis: Essential (primary) hypertension[ICD10: I10] Bonita Medley MD, [facility] CPT-4: 46792 09/02/2015 ([id number]) 79023 EST. PATIENT, LEVEL III Diagnosis: Localized edema[ICD10: R60.0] Ginny Medley MD, [facility] CPT-4: 90926 08/05/2015 ([id number]) 07977 EST. PATIENT, LEVEL III Diagnosis: Localized edema[ICD10: R60.0] Diagnosis: Unspecified open wound, right ankle, initial encounter[ICD10: S91.001A] Ginny Medley MD, [facility] CPT-4: 54298 ([id number]) 77234 EST. PATIENT, LEVEL IV Diagnosis: Essential (primary) hypertension[ICD10: I10] Diagnosis: Localized edema[ICD10: R60.0] Diagnosis: Low back pain[ICD10: M54.5] Diagnosis: Type 2 diabetes mellitus with hyperglycemia[ICD10: E11.65] Ginny Medley MD, [facility] CPT-4: 89012 06/03/2015 ([id number]) Miscellaneous no charge Diagnosis: Encounter for other specified aftercare[ICD10: Z51.89] Yoli Medley MD [facility] CPT-4: 96609 03/20/2015 48881 EST. PATIENT, LEVEL IV Diagnosis: Cutaneous abscess of chest wall[ICD10: L02.213] Yoli Medley MD [facility] CPT-4: 03753 03/19/2015 ([id number]) 65941 EST. PATIENT, LEVEL III Diagnosis: Edema, unspecified[ICD10: R60.9] Yoli Medley MD [facility] CPT-4: 56913 03/04/2015 29920 EST. PATIENT, LEVEL III Diagnosis: Edema, unspecified[ICD10: R60.9] Diagnosis: Unspecified open wound, right ankle, initial encounter[ICD10: S91.001A] Yoli Medley MD [facility] CPT-4: 56309 07/2014 ([id number]) 40886 EST. PATIENT, LEVEL III Diagnosis: Edema, unspecified[ICD10: R60.9] Yoli Medley MD [facility] CPT-4: 22786 02/11/2015 ([id number]) 81196 EST. PATIENT, LEVEL IV Diagnosis: Type 2 diabetes mellitus with hyperglycemia[ICD10: E11.65] Diagnosis: Essential (primary) hypertension[ICD10: I10] Diagnosis: Edema, unspecified[ICD10: R60.9] Yoli Medley MD, [facility] CPT-4: 37710 01/28/2015 ([id number]) 50871 EST. PATIENT, LEVEL IV Diagnosis: DIABETES TYPE II[ICD9: 250.00] Diagnosis: ESSENTIAL HYPERTENSION[ICD9: 401.9] Diagnosis: Parkinsons disease[ICD9: 332.0] Yoli Medley MD [facility] CPT- 4: 77741 10/01/2014 ([id number]) 88862 EST. PATIENT, LEVEL IV Diagnosis: ESSENTIAL HYPERTENSION[ICD9: 401.9] Diagnosis: DIABETES TYPE II[ICD9: 250.00] Diagnosis: Parkinsons disease[ICD9: 332.0] Yoli Medley MD [facility] CPT- 4: 15220 05/30/2014 ([id number]) 40987 EST. PATIENT, LEVEL IV Diagnosis: DIABETES TYPE II[ICD9: 250.00] Diagnosis: ESSENTIAL HYPERTENSION[ICD9: 401.9] Diagnosis: Back pain[ICD9: 724.5] Yoli Medley MD [facility] CPT-4: 29396 02/28/2014 ([id number]) 90563 EST. PATIENT, LEVEL III Diagnosis: ESOPHAGEAL REFLUX[ICD9: 530.81] Diagnosis: Esophageal ulcer[ICD9: 530.20] Yoli Medley MD [facility] CPT- 4: 02804 01/23/2014 ([id number]) 48353 EST. PATIENT, LEVEL IV Diagnosis: ESOPHAGEAL REFLUX[ICD9: 530.81] Diagnosis: ESSENTIAL HYPERTENSION[ICD9: 401.9] Yoli Medley MD [facility] CPT-4: 14837 12/26/2013 ([id number]) 13069 EST. PATIENT, LEVEL IV Diagnosis: Diabetes type 2, uncontrolled[ICD9: 250.02] Diagnosis: ESSENTIAL HYPERTENSION[ICD9: 401.9] Diagnosis: Back pain[ICD9: 724.5] Diagnosis: ELEVATED PSA[ICD9: 790.93] Yoli Medley MD [facility] CPT- 4: 13752 10/17/2013 ([id number]) 37513 EST. PATIENT, LEVEL IV Diagnosis: DIABETES TYPE II[SNOMED: 589631794] Diagnosis: ESSENTIAL HYPERTENSION[SNOMED: 25373916] Diagnosis: Sleep apnea[ICD9: 780.57] Yoli Medley MD [facility] CPT-4: 31643 07/24/2013 ([id number]) 11622 EST. PATIENT, LEVEL IV Diagnosis: DIABETES TYPE II[SNOMED: 115536991] Diagnosis: ESSENTIAL HYPERTENSION[SNOMED: 55417709] Diagnosis: HYPERLIPIDEMIA[ICD9: 272.4] Yoli Medley MD [facility] CPT- 4: 17418 04/24/2013 ([id number]) 18285 EST. PATIENT, LEVEL III Diagnosis: DIABETES TYPE II[SNOMED: 152496254] Yoli Medley MD [facility] CPT-4: 31621 03/20/2013 ([id number]) 06224 EST. PATIENT, LEVEL III Diagnosis: DM W/O COMPLICATION TYPE II, UNCONTROLLED[SNOMED: 13707681] Yoli Medley MD [facility] CPT-4: 44520 01/19/2013 ([id number]) 54348 EST. PATIENT, LEVEL III Diagnosis: DM W/O COMPLICATION TYPE II, UNCONTROLLED[SNOMED: 35176953] Yoli Medley MD [facility] CPT-4: 12745 12/21/2012 ([id number]) 40132 EST. PATIENT, LEVEL IV Diagnosis: DM W/O COMPLICATION TYPE II, UNCONTROLLED[SNOMED: 79916624] Diagnosis: Parkinsons disease[ICD9: 332.0] Diagnosis: Back pain[ICD9: 724.5] Diagnosis: Gait instability[ICD9: 781.2] Yoli Medley MD [facility] CPT- 4: 82692 11/30/2012 ([id number]) 81589 EST. PATIENT, LEVEL IV Diagnosis: ESSENTIAL HYPERTENSION[SNOMED: 56469840] Diagnosis: Abdominal pain[ICD9: 789.00] Diagnosis: DIABETES TYPE II[SNOMED: 382473543] Yoli Medley MD [facility] CPT-4: 36219 05/30/2012 ([id number]) 59529 EST. PATIENT, LEVEL III Diagnosis: Gastroenteritis[ICD9: 558.9] Ginny Medley MD [facility] CPT-4: 65431 04/26/2012 ([id number]) 61232 EST. PATIENT, LEVEL IV Diagnosis: ESSENTIAL HYPERTENSION[SNOMED: 51926240] Diagnosis: DIABETES TYPE II[SNOMED: 472729229] Diagnosis: Claw toe[ICD9: 735.5] Yoli Medley MD [facility] CPT-4: 63284 04/14/2012 ([id number]) 89588 EST. PATIENT, LEVEL III Diagnosis: Rash[ICD9: 782.1] Diagnosis: DERMATOPHYTOSIS OF FOOT[ICD9: 110.4] Ginny Medley MD, [facility] CPT-4: 11998 02/22/2012 [id number]) 92261 EST. PATIENT, LEVEL IV Diagnosis: DM W/O COMPLICATION TYPE II, UNCONTROLLED[SNOMED: 83810651] Diagnosis: ESSENTIAL HYPERTENSION[SNOMED: 72658504] Diagnosis: Constipation - functional[ICD9: 564.09] Diagnosis: Encounter for long-term (current) use of other high-risk medications[ ICD9: V58.69] Yoli Medley MD, [facility] CPT-4: 94262 01/13/2012 ([id number] 98953 EST. PATIENT, LEVEL IV Diagnosis: ESSENTIAL HYPERTENSION[SNOMED: 41053417] Diagnosis: DIABETES TYPE II[SNOMED: 145135656] Yoli Medley MD, [facility] CPT-4: 79482 09/02/2011 57568 EST. PATIENT, LEVEL IV Diagnosis: LUMBAGO[ICD9: 724.2] Diagnosis: Sacroiliitis[ICD9: 720.2] Yoli Medley MD, [facility] CPT-4: 53812 08/05/2011 [id number]) 44011 EST. PATIENT, LEVEL IV Diagnosis: ESSENTIAL HYPERTENSION[SNOMED: 53793356] Diagnosis: DIABETES TYPE II[SNOMED: 604981492] Diagnosis: Breast mass in male[ICD9: 611.72] Diagnosis: Chronic hyponatremia[ICD9: 276.1] Yoli Medley MD, [facility] CPT-4: 10145 07/01/2011 Plan of Care Planned Activity Notes [...] controlled. 05/13/2017 Appointment: Yoli Medley WPtel: [phone] [facility] (15 min) Moderate 05/13/2017 Patient Education: Patient Medication Summary Completed 05/13/2017 Visit Plan: Rash - The patient was instructed to use the ointment as per RX. The patient is to call for any change in symptoms, increase in size of the lesion, increase in pain, worsening redness, warmth, discharge. 04/28/2017 Appointment: Bonita Villa WPtel: [phone] [facility] [place] (15 min) Moderate 04/28/2017 Patient Education: Patient Medication Summary Completed 04/28/2017 Appointment: [phone] [place] (30 min) Complex 04/16/2017 Visit Plan: [...] control. 04/15/2017 Appointment: Bonita Villa WPtel: [phone] [facility] [place] (30 min) Complex 04/15/2017 Patient Education: [...] of control. 02/04/2017 Appointment: Ginny Pearl WPtel: [phone] (30 min) Complex 02/04/2017 Patient Education: Patient Medication Summary Completed 02/04/2017 Patient Education: Obesity Completed 02/04/2017 Patient Education: Patient Medication Summary Completed 02/01/2017 Appointment: Ginny Pearl WPtel: [phone] (30 min) Complex 01/12/2017 Appointment: Ginny Pearl WPtel: [phone] (30 min) Complex 01/07/2017 Visit Plan: Medicare [...] care surrogate. 10/12/2016 Appointment: Bonita Villa WPtel: [facility] [facility] - Annual Wellness Visit 10/12/2016 Patient Education: [...] 3 months. 10/08/2016 Appointment: Ginny Pearl WPtel: 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 Pt has been encouraged to exercise daily. The pt has been advised to call the office if there are any acute concerns about change in blood pressure readings at home. Bilateral thyroid nodules-voice hoarseness-Dr Ford to do total thyroidectomy on Wednesday Fvvnfakhxn-qjsdc-pbbags-due to thyroid nodules-will monitor symptoms for now [...] and plan. 08/24/2016 Appointment: Ginny Pearl WPtel: [phone] (30 min) Complex 08/24/2016 Patient Education: Patient Medication Summary Completed 08/24/2016 Visit Plan: Abdominal lpeckgea-nmibgkqcwzjr-PYB today Bronchitis - acute case of bronchitis [...] at home 08/06/2016 Appointment: Ginny Pearl WPtel: [address] [place], [place] [phone] (10 min) Simple 08/06/2016 Patient Education: Patient Medication Summary Completed 08/06/2016 Visit Plan: URI - Pt advised to increase fluids, vitamin C. Discussed natural and expected course of this diagnosis and need to alert me if symptoms do not follow expected course, or if any worse. RX sent to patient' s pharmacy. 07/30/2016 Appointment: Ginny Pearl [facility]Ptel[phone] [phone] (15 min) Moderate 07/30/2016 Patient Education: Patient [...] worsen. 06/22/2016 Appointment: Ginny Pearl [facility]Ptel: [phone] [phone] [place] (30 min) Complex 06/22/2016 Patient Education: [...] negative 04/27/2016 Appointment: Ginny Pearl WPtel: [phone] [phone] (30 min) Complex 04/27/2016 Patient Education: Patient [...] peripheral edema. 03/23/2016 Appointment: Ginny Pearl [facility]Ptel: [phone] [phone] (30 min) Complex 03/23/2016 Patient Education: Patient [...] in the office. Refer for PT at [facility]- Low back pain, generalized weakness, Parkinsons Low itqein-nhxuvah-qs need for increase sodium intake Hypertension - [...] A1C 01/20/2016 Appointment: Ginny Pearl WPtel: [phone] [facility] [place] [address] (30 min) Complex 01/20/2016 Patient Education: Patient Medication Summary Completed 01/20/2016 Patient Education: Obesity Completed 01/20/2016 Care Plan: Comp Metabolic Pending 01/20/2016 Care Plan: Cbc With Differential Pending 01/20/2016 Care Plan: %Hba1C LOINC : 80016-0 Pending 01/20/2016 Visit Plan: Diabetes Mellitus - [...] today 12/09/2015 Appointment: Ginny Pearl WPtel: [phone] [phone] (30 min) Complex 12/09/2015 Patient Education: Patient [...] symptoms worsen. 11/25/2015 Appointment: Ginny Pearl WPtel: [address] [place] [phone] (30 min) Complex 11/25/2015 Patient Education: Patient [...] 03/26/2015 Care Plan: Referral Order SNOMED-CT : [id number] Ordered 03/26/2015 Patient Education: Patient Medication Summary [...] 02/20/2015 Care Plan: Referral Order SNOMED-CT : [id number] Ordered 02/20/2015 Visit Plan: Hypertension - uncontrolled [...] SPIRONOLACTONE 02/11/2015 Appointment[phone] (15 min) Moderate 02/11/2015 Patient Education: Patient [...] pressure. 01/28/2015 Appointment: [phone] (15 min) Moderate 01/28/2015 Patient Education: Patient [...] worsen. 10/01/2014 Appointment: [phone] Follow up 10/01/2014 Patient Education: Patient Medication [...] symptoms worsen. 05/30/2014 Appointment: [facility] Med[facility]el[phone] [facility] [place] Follow up 05/30/2014 Patient Education: Patient [...] 29. 01/23/2014 Appointment: Yoli Medley WPtel: [phone] [facility] Follow up 01/23/2014 Patient Education: Patient Medication [...] at home. 12/26/2013 Appointment: [phone] [facility] Follow up 12/26/2013 Patient Education: Patient Medication Summary Completed 12/26/2013 Patient Education: Hypertension Completed 12/26/2013 Visit Plan: Wound Instructions - Pt was instruced to keep the wound clean, wash with antibacterial soap, use triple antibiotic ointment, call if redness, pustular drainage, or any other acute conerns. 10/24/2013 Appointment: Ginny Pearl [phone] [facility] Surgical Procedure 10/24/2013 Patient Education: Patient Medication [...] the lesions. 10/17/2013 Appointment: [facility] Med[phone] Follow [facility] 10/17/2013 Patient Education: Patient Medication [...] like to have his Oxygen company - [employer] - help with arranging oxygen when he is in [facility]. 07/24/2013 Appointment: [facility] Med[facility]el[phone] Follow up 07/24/2013 Patient Education: Patient Medication Summary Completed 07/24/2013 Patient Education: Hypertension Completed 07/24/2013 Appointment: Ginny Pearl [facility]Ptel: [phone] [phone] [place] Lab Draw 05/05/2013 Patient Education: Patient Medication Summary Completed 05/05/2013 Patient Education: Hypertension Completed 05/05/2013 Appointment: [facility] Med[facility]el[phone] [facility] [place] Follow up 05/01/2013 Visit Plan: Diabetes [...] DAILY. 01/19/2013 Appointment: [facility] Med[facility]el[phone] Follow up 01/19/2013 Patient Education: Patient Medication Summary Completed 01/19/2013 Visit Plan: QI-qblipopx-kbzkenpouvz today in the office- wound Instructions - Pt was instruced to keep the wound clean, wash with antibacterial soap, use triple antibiotic ointment, call if redness, pustular drainage, or any other acute conerns. 12/26/2012 Appointment: Ginny Pearl [facility]Ptel: [phone] [phone] Other 12/26/2012 Patient Education: Patient Medication Summary [...] glucose. 12/21/2012 Appointment: [facility] Med[phone] Follow up 12/21/2012 Patient Education: Patient Medication Summary Completed 12/21/2012 Visit Plan: Parkinsons disease - rx for sinemet 25/100mg 1/ 2 pill in morning and 1/2 pill in evening, pt to let us know if the symptoms improve. Referral to Miguel at [facility] for gait instability. Diabetes Mellitus - Uncontrolled [...] and gait instability - recommended christina at [facility] - continue with back brace as it offers support for the patient. 11/30/2012 Appointment: [facility] Med[facility]el[phone] Follow up 11/30/2012 Patient Education: Patient Medication [...] been previously. 05/30/2012 Appointment: [phone] [facility] 6 [facility]/u Follow up 05/30/2012 Patient [...] to seek support for his arches via residential treatment staff evyury and perhaps arch supports to be custom made or custom fitted. 04/14/2012 Appointment: [facility]el[phone] Follow up 04/14/2012 Patient Education: Patient Medication Summary Completed 04/14/2012 Patient Education: Hypertension Completed 04/14/2012 Visit Plan: Rash- Discussed natural and expected course of this diagnosis and need to alert me if symtpoms do not follow expected course, or if any worse. RX sent to patient's pharmacy. 02/22/2012 Appointment: Ginny Pearl [facility]Ptel: [phone] [facility] 02/22/2012 Patient Education: Patient Medication Summary [...] this regimen. 01/13/2012 Appointment: [facility] Med[facility]el[phone] [facility] Patient Preventative visit 01/13/2012 Patient Education: [...] controlled. 09/02/2011 Appointment: Yoli Medley WPtel: [phone] [facility] Other 09/02/2011 Patient Education: Patient Medication Summary Completed 09/02/2011 Patient Education: High Blood Pressure: Essential Hypertension Completed 2011 Appointment: Ginny Pearl WPtel: [phone] [phone] [place] [address] Lab Draw 08/06/2011 Patient Education: Patient Medication [...] bid. 08/05/2011 Appointment: Yoli Medley WPtel: [phone] [facility] Other 08/05/2011 Patient Education: Patient Medication [...] home. 07/01/2011 Appointment: Yoli Medley WPtel: [phone] [facility] Other 07/01/2011 Patient Education: Patient Medication Summary Completed 07/01/2011 Patient Education: High Blood Pressure: Essential Hypertension Completed 2011 Appointment: Yoli Medley WPtel: [phone] [facility] Lab Draw 06/25/2011 Patient Education: Patient Medication Summary Completed 06/25/2011 Patient Education: High Blood Pressure: Essential Hypertension Completed 2011 Referral: [facility] WPtel: 1 [facility] Referral Initiated Referral: Dangelo Ford Referral Initiated [...] CHECK LABS STOP EXTRA SODIUM REFER TO [facility] FOR PHYSICAL THERAPY DX PARKINSONS, BACK PAIN, WEAKNESS . Low back pain- the patient was instructed in appropriate posture, need for weight loss to alleviate abdominal obesity that is worsening the patient's back pain. The patient is to call the office if the pain is worsening or does not improve. Kenalog injection today in the office. Refer for PT at [facility] Low back pain, generalized weakness, Parkinsons Low jhtwns-arokugz-au need for increase sodium intake Hypertension - [...] change in blood pressure readings at home. Ahxkmxokshdakt-yffvybja-zhsvmlx medication increased by Dr Ford and wants [...] Ford to do total thyroidectomy on Wednesday Cvjqeiculn-bryxp-bbyfxd-due to thyroid nodules-will monitor symptoms for now . Hypertension - continue with current medications, continue with no added salt diet. Pt has been encouraged to exercise daily. The pt has been advised to call the office if there are any acute concerns about change in blood pressure readings at home. Bilateral thyroid nodules-voice hoarseness-Dr Ford to do total thyroidectomy on Wednesday Zjbwjulfbf-egvan-txwnwf-due to thyroid nodules-will monitor symptoms for now [...] Lab work- CBC, CMP, BNP . Abdominal baxswmpa-zbmeolpkpqyc-TZQ today Bronchitis - acute case of bronchitis [...] like to have his Oxygen company - [employer] - help with arranging oxygen when he is in [facility]. . Parkinsons disease - rx for sinemet 25/100mg 1/2 pill in morning and 1/2 pill in evening, pt to let us know if the symptoms improve. Referral to Miguel at [facility] for gait instability. Diabetes Mellitus - Uncontrolled [...] and gait instability - recommended christina at [facility] - continue with back brace as it offers support for the patient. . NE-gljkltae-mtknriyigye today in the office-wound Instructions - Pt [...] to seek support for his arches via residential treatment staff eval and perhaps arch supports to be [...]
--- OUTSIDE RECORDS SUMMARY | 2017-11-07 17:38 | XMS REPORT | CCD ---
Author Author [facility] Organization [facility] Address [address] [place] [address] Phone Care Team Providers Care Federal Mediator Name Role Phone PP Unavailable CCM Unavailable Summary Purpose Interface Exchange Insurance Providers Payer name Policy type / Coverage type Covered republican ID Effective Begin Date Effective End Date WPS Medicare Part B Medicare Part B [id number] Unknown 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 Unknown Has never used illegal drugs 07/02/2011 Marital status Unknown 07/01/2011 Living arrangements Unknown House 07/01/2011 Allergies, Adverse Reactions, Alerts Allergies, Adverse Reactions, Alerts data not found Past Medical History Illness Codes Condition Status Onset Date Resolved Date Essential (primary) hypertension ICD-9: 401.1 ICD-10: I10 Active 05/13/2017 Unknown Localized edema ICD-9 : 782.3 ICD-10: R60.0 Active 03/22/2016 Unknown Essential (primary) hypertension ICD-9: 401.9 ICD-10: [...] Dates Condition Status Essential (primary) hypertension ICD-9: 401.1 ICD-10: I10 05/13/2017 Active Localized edema ICD-9 : 782.3 ICD-10: R60.0 03/22/2016 Active Essential (primary) hypertension ICD-9: 401.9 ICD-10: [...] Fill Instructions glipizide 10 mg tablet RxNorm: 367520 1 Tablet(s) PO BID 201711/03/2018 Active metformin ER 500 mg tablet,extended release 24 hr RxNorm: 107010 Tablet(s) TAKE ONE TABLET BY MOUTH TWICE DAILY 05/13/2017 05/07/2018 Active Basaglar KwikPen 100 unit/mL (3 mL) subcutaneous RxNorm: 5617850 24 Unit(s) SQ daily 05/13/2017 05/07/2018 Active lisinopril 20 mg tablet RxNorm: 967280 Tablet(s) TAKE 1 TABLET BY MOUTH TWICE DAILY 05/13/2017 05/07/2018 Active finasteride 5 mg tablet RxNorm: 065153 1 Tablet(s) PO daily 11/08/2017 Active [SAVINGS FOR UNINSURED PATIENTS -- BIN:[id number], PCN: ASPROD1, Group: [id number], ID# [id number], Process claim through [employer], for questions: . THIS IS NOT INSURANCE.] levothyroxine 175 mcg tablet RxNorm: 883957 1 Tablet(s) PO daily 05/13/2017 11/08/2017 Active Sinemet 25 mg-100 mg tablet RxNorm: 229211 Tablet(s) TAKE ONE TABLET BY MOUTH TWICE DAILY IN THE MORNING AND AT SUPPER 05/13/2017 05/07/2018 Active Lasix 20 mg tablet RxNorm: 970016 Tablet(s) TAKE 1 TABLET BY MOUTH ONCE DAILY FOR 1 WEEK AND THEN TAKE 1 TABLET BY MOUTH EVERY 3 DAYS THEREAFTER 05/13/2017 07/27/2017 Active Basaglar KwikPen 100 unit/mL (3 mL) subcutaneous RxNorm: 6308546 24 Unit(s) SQ daily 05/07/2017 05/12/2017 Inactive Lasix 20 mg tablet RxNorm: 872433 2 Tablet(s) PO daily x 3 days, then 1 pill three times a week thereafter 04/28/2017 No Stop Date Active triamcinolone acetonide 0.025 % topical cream RxNorm: 5374509 1 Application TOP BID 04/28/2017 No Stop Date Active clotrimazole 1 % topical cream RxNorm: 364992 1 Application TOP BID 04/28/2017 No Stop Date Active potassium chloride ER 10 mEq tablet,extended release(part/ cryst) RxNorm: 1987454 2 Tablet(s) PO daily x 3 days, then 1 pill three times a week when taking the lasix 04/28/2017 08/25/2017 Active Lasix 20 mg tablet RxNorm: 289444 Tablet(s) TAKE 1 TABLET BY MOUTH ONCE DAILY FOR 1 WEEK AND THEN TAKE 1 TABLET BY MOUTH EVERY 3 DAYS THEREAFTER 04/22/2017 05/12/2017 Inactive Lantus Solostar 100 unit/mL (3 mL) subcutaneous insulin pen RxNorm: 386670 24 Unit(s) SQ daily INJECT 24 UNITS DAILY OR DIRECTED 201605/06/2017 Inactive 1 box of 5 pens Basaglar KwikPen 100 unit/mL (3 mL) subcutaneous RxNorm: 6911648 24 Unit(s) SQ daily 03/02/2017 05/06/2017 Inactive Basaglar KwikPen 100 unit/mL (3 mL) subcutaneous RxNorm: 9528284 24 Unit(s) SQ daily 03/02/2017 03/01/2017 Inactive levothyroxine 175 mcg tablet RxNorm: 959663 1 Tablet(s) PO daily 02/02/2017 05/12/2017 Inactive Sinemet 25 mg-100 mg tablet RxNorm: 560668 TAKE ONE TABLET BY MOUTH TWICE DAILY IN THE MORNING AND AT SUPPER 12/30/2016 Inactive metformin ER 500 mg tablet,extended release 24 hr RxNorm: 641970 Tablet(s) TAKE ONE TABLET BY MOUTH TWICE DAILY 11/10/2016 05/12/2017 Inactive lisinopril 20 mg tablet RxNorm: 324302 Tablet(s) TAKE 1 TABLET BY MOUTH TWICE DAILY 11/10/2016 05/12/2017 Inactive levothyroxine 150 mcg tablet RxNorm: 391121 1 Tablet(s) PO daily 11/05/2016 02/01/2017 Inactive PLEASE LET PATIENT KNOW WE ARE GIVING HIM 150MCG INSTEAD OF 100MCG SO HE JUST TAKES 1 TAB DAILY. THANKS! Lantus Solostar 100 unit/mL (3 mL) subcutaneous insulin pen RxNorm: 104703 24 Unit(s) SQ daily INJECT 24 UNITS DAILY OR DIRECTED 201603/01/2017 Inactive 1 box of 5 pens Lantus Solostar 100 unit/mL (3 mL) subcutaneous insulin pen RxNorm: 910105 24 Unit(s) SQ daily INJECT 24 UNITS DAILY OR DIRECTED 201610/06/2016 Inactive please call patient with the colbert levothyroxine 100 mcg tablet RxNorm: 226490 1.5 Tablet(s) PO daily 10/05/2016 11/04/2016 Inactive metformin ER 500 mg tablet,extended release 24 hr RxNorm: 830783 Tablet(s) TAKE ONE TABLET BY MOUTH TWICE DAILY 09/29/2016 11/09/2016 Inactive prednisone 20 mg tablet RxNorm: 329134 1 Tablet(s) PO BID 08/0608/10/2016 Inactive Kenalog 40 mg/mL suspension for injection RxNorm: 1389152 1 Milliliter(s) Inj 07/30/2016 07/30/2016 Inactive doxycycline hyclate 100 mg tablet RxNorm: 518537 1 Tablet(s) PO BID 07/30/2016 08/05/2016 Inactive glipizide 10 mg tablet RxNorm: 594341 1 Tablet(s) PO BID 201605/12/2017 Inactive Sinemet 25 mg-100 mg tablet RxNorm: 744051 TABLET(S) TAKE 1 TABLET BY MOUTH TWICE A DAY IN THE MORNING AND AT SUPPER 05/11/2016 11/06/2016 Inactive Patient requests 90 days supply metformin ER 500 mg tablet,extended release 24 hr RxNorm: 481639 TAKE ONE TABLET BY MOUTH TWICE DAILY 05/04/20162016 Inactive lisinopril 20 mg tablet RxNorm: 745162 TAKE 1 TABLET BY MOUTH TWICE DAILY 04/14/2016 11/09/2016 Inactive Sinemet 25 mg-100 mg tablet RxNorm: 985913 1 Tablet(s) PO BID TAKE 1 TABLET BY MOUTH TWICE A DAY IN THE MORNING AND AT SUPPER 03/23/2016 09/18/2016 Inactive Lasix 20 mg tablet RxNorm: 475459 Tablet(s) TAKE 1 TABLET BY MOUTH ONCE DAILY FOR 1 WEEK AND THEN TAKE 1 TABLET BY MOUTH EVERY 3 DAYS THEREAFTER 03/23/2016 06/06/2016 Inactive hydrocodone 5 mg-acetaminophen 325 mg tablet RxNorm: 750284 1-2 Tablet(s) PO Q6- 8H 01/21/2016 No Stop Date Active Lantus Solostar 100 unit/mL (3 mL) subcutaneous insulin pen RxNorm: 618051 24 Unit(s) SQ daily INJECT 24 UNITS DAILY OR DIRECTED 201510/05/2016 Inactive please call patient with the colbert Kenalog 40 mg/mL suspension for injection RxNorm: 0975334 1 Milliliter(s) Inj 01/20/2016 01/20/2016 Inactive Sinemet 25 mg-100 mg tablet RxNorm: 446113 Tablet(s) TAKE 1 TABLET BY MOUTH TWICE A DAY IN THE MORNING AND AT SUPPER 11/29/2015 03/22/2016 Inactive Lantus Solostar 100 unit/mL (3 mL) subcutaneous insulin pen RxNorm: 500062 20 Unit(s) SQ daily INJECT 20 UNITS DAILY OR DIRECTED 201501/20/2016 Inactive please call patient with the colbert Sinemet 25 mg-100 mg tablet RxNorm: 046564 Tablet(s) TAKE 1 TABLET BY MOUTH TWICE A DAY IN THE MORNING AND AT SUPPER 11/22/2015 11/28/2015 Inactive Lantus Solostar 100 unit/mL (3 mL) subcutaneous insulin pen RxNorm: 965479 Unit( s) INJECT 20 UNITS DAILY OR DIRECTED 11/22/2015 11/24/2015 Inactive Lantus Solostar 100 unit/mL (3 mL) subcutaneous insulin pen RxNorm: 935426 INJECT 20 UNITS DAILY OR DIRECTED 09/27/2015 11/21/2015 Inactive Lasix 20 mg tablet RxNorm: 051585 TAKE 1 TABLET BY MOUTH ONCE DAILY FOR 1 WEEK AND THEN TAKE 1 TABLET BY MOUTH EVERY 3 DAYS THEREAFTER 09/2512/10/2015 Inactive Lasix 20 mg tablet RxNorm: 051176 1 Tablet(s) PO daily 201509/25/2015 Inactive glipizide 10 mg tablet RxNorm: 368333 1 Tablet(s) BID TAKE 1 TABLET BY MOUTH DAILY. 06/25/2015 06/28/2016 Inactive metformin ER 500 mg tablet,extended release 24 hr RxNorm: 627019 1 Tablet(s) PO BID 04/01/2015 05/05/2016 Inactive lisinopril 20 mg tablet RxNorm: 483893 Tablet(s) TAKE 1 TABLET BY MOUTH TWICE DAILY. 03/25/2015 07/22/2015 Inactive metformin ER 500 mg tablet,extended release 24 hr RxNorm: 597095 1 Tablet(s) PO BID 03/25/2015 03/31/2015 Inactive doxycycline hyclate 100 mg capsule RxNorm: 8221020 1 Capsule(s) PO BID 03/19/2015 04/01/2015 Inactive Sinemet 25 mg-100 mg tablet RxNorm: 625804 TAKE 1 TABLET BY MOUTH TWICE A DAY IN THE MORNING AND AT SUPPER 03/05/201511/20 Inactive doxycycline hyclate 100 mg capsule RxNorm: 8717200 1 Capsule(s) PO BID 02/20/2015 02/26/2015 Inactive metolazone 5 mg tablet RxNorm: 564110 1 Tablet(s) PO daily 07/201403/21/2015 Inactive spironolactone 50 mg tablet RxNorm: 125455 1 Tablet(s) PO daily 02/11/2015 01/02/2016 Inactive Efudex 5 % topical cream RxNorm: 787370 1 TOP BID 01/28/2015 02/10/2015 Inactive potassium chloride ER 10 mEq tablet,extended release(part/ cryst) RxNorm: 7582253 1 Tablet(s) PO daily x 1week then three times weekly with the lasix. 01/28/2015 05/27/2015 Inactive Lasix 20 mg tablet RxNorm: 190526 1 Tablet(s) PO daily x 1 week, then every three days thereafter 01/28/20152015 Inactive lisinopril 20 mg tablet RxNorm: 024053 Tablet(s) TAKE 1 TABLET BY MOUTH TWICE DAILY. 11/23/2014 03/22/2015 Inactive lisinopril 20 mg tablet RxNorm: 499162 TAKE 1 TABLET BY MOUTH TWICE DAILY. 11/22/2014 11/22/2014 Inactive Sinemet 25 mg-100 mg tablet RxNorm: 491511 1 Tablet(s) PO BID TAKE 1 TABLET BY MOUTH TWICE A DAY IN THE MORNING AND AT SUPPER 10/01/2014 03/04/2015 Inactive [ SAVINGS FOR UNINSURED PATIENTS -- BIN:236736, PCN: ASPROD1, Group: [id number], ID# [id number], Process claim through [employer], for questions: . THIS IS NOT INSURANCE.] glipizide 10 mg tablet RxNorm: 217107 1 Tablet(s) BID TAKE 1 TABLET BY MOUTH DAILY. 10/01/2014 06/24/2015 Inactive glipizide 10 mg tablet RxNorm: 542357 Tablet(s) daily TAKE 1 TABLET BY MOUTH DAILY. 08/06/2014 09/30/2014 Inactive Lantus Solostar 100 unit/mL (3 mL) subcutaneous insulin pen RxNorm: 505426 20 Unit(s) SQ daily 07/11/2014 09/26/2015 Inactive [SAVINGS FOR UNINSURED PATIENTS -- BIN:066858, PCN: ASPROD1, Group: [id number], ID# [id number], Process claim through [employer], for questions: . THIS IS NOT INSURANCE.] metformin ER 500 mg tablet,extended release 24 hr RxNorm: 106651 1 Tablet(s) PO BID 07/10/2014 03/24/2015 Inactive lisinopril 20 mg tablet RxNorm: 884548 Tablet(s) TAKE 1 TABLET BY MOUTH TWICE DAILY. 07/10/2014 11/21/2014 Inactive Lantus Solostar 100 unit/mL (3 mL) subcutaneous insulin pen RxNorm: 586892 20 Unit(s) SQ daily 05/30/2014 07/10/2014 Inactive [SAVINGS FOR UNINSURED PATIENTS -- BIN:087806, PCN: ASPROD1, Group: [id number], ID# [id number], Process claim through [employer], for questions: . THIS IS NOT INSURANCE.] Sinemet 25 mg-100 mg tablet RxNorm: 528327 Tablet(s) TAKE 1 TABLET BY MOUTH TWICE A DAY IN THE MORNING AND AT SUPPER 05/30/2014 09/30/2014 Inactive [SAVINGS FOR UNINSURED PATIENTS -- BIN:575633, PCN: ASPROD1, Group: [id number], ID# [id number], Process claim through [employer], for questions: . THIS IS NOT INSURANCE.] lisinopril 20 mg tablet RxNorm: 690741 TAKE 1 TABLET BY MOUTH TWICE DAILY. 04/09/2014 04/08/2014 Inactive glipizide 10 mg tablet RxNorm: 732654 TAKE 1 TABLET BY MOUTH TWICE DAILY. 04/09/2014 08/05/2014 Inactive glipizide 10 mg tablet RxNorm: 570174 TAKE 1 TABLET BY MOUTH TWICE DAILY. 04/09/2014 04/08/2014 Inactive lisinopril 20 mg tablet RxNorm: 738239 TAKE 1 TABLET BY MOUTH TWICE DAILY. 04/09/2014 07/09/2014 Inactive lisinopril 20 mg tablet RxNorm: 910065 Tablet(s) TAKE ONE TABLET BY MOUTH TWICE DAILY 04/06/2014 04/08/2014 Inactive [SAVINGS FOR UNINSURED PATIENTS -- BIN:796724 , PCN: ASPROD1, Group: [id number], ID# [id number], Process claim through [employer], for questions: . THIS IS NOT INSURANCE.] glipizide 10 mg tablet RxNorm: 699827 1 Tablet(s) PO BID 201304/08/2014 Inactive [SAVINGS FOR UNINSURED PATIENTS -- BIN:825333, PCN: ASPROD1, Group: [id number], ID # [id number], Process claim through [employer], for questions: . THIS IS NOT INSURANCE.] pravastatin 10 mg tablet RxNorm: 610533 TAKE ONE TABLET BY MOUTH EVERY DAY 02/26/2014 05/26/2014 Inactive Sinemet 25 mg-100 mg tablet RxNorm: 232049 TAKE 1 TABLET BY MOUTH TWICE A DAY IN THE MORNING AND AT SUPPER 01/26/201401/25 Inactive Sinemet 25 mg-100 mg tablet RxNorm: 639140 Tablet(s) TAKE 1 TABLET BY MOUTH TWICE A DAY IN THE MORNING AND AT SUPPER 01/26/2014 05/29/2014 Inactive [SAVINGS FOR UNINSURED PATIENTS -- BIN:459003, PCN: ASPROD1, Group: [id number], ID# [id number], Process claim through [employer], for questions: . THIS IS NOT INSURANCE.] Sinemet 25 mg-100 mg tablet RxNorm: 948672 TAKE 1 TABLET BY MOUTH TWICE A DAY IN THE MORNING AND AT SUPPER 01/26/201401/25 Inactive Sinemet 25 mg-100 mg tablet RxNorm: 130503 TAKE 1 TABLET BY MOUTH TWICE A DAY IN THE MORNING AND AT SUPPER 01/26/201401/25 Inactive pantoprazole 40 mg tablet,delayed release RxNorm: 483525 TAKE 1 TABLET DAILY 01/25/2014 10/07/2016 Inactive finasteride 5 mg tablet RxNorm: 003001 1 Tablet(s) PO daily 12/201309/30/2014 Inactive [SAVINGS FOR UNINSURED PATIENTS -- BIN:457943, PCN: ASPROD1, Group: [id number] , ID# [id number], Process claim through [employer], for questions: . THIS IS NOT INSURANCE.] sucralfate 100 mg/mL oral suspension RxNorm: 004509 10 Milliliter(s) PO QID 01/23/2014 09/30/2014 Inactive dispense qs x 1 month lisinopril 20 mg tablet RxNorm: 056536 TAKE ONE TABLET BY MOUTH TWICE DAILY 12/27/2013 03/26/2014 Inactive pantoprazole 40 mg tablet,delayed release RxNorm: 969537 1 Tablet(s) PO daily 12/26/2013 12/25/2013 Inactive [SAVINGS FOR UNINSURED PATIENTS -- BIN:497868, PCN: ASPROD1, Group: [id number], ID# [id number], Process claim through [employer], for questions: . THIS IS NOT INSURANCE.] pantoprazole 40 mg tablet,delayed release RxNorm: 504234 1 Tablet(s) PO daily 12/26/2013 12/20/2014 Inactive [SAVINGS FOR UNINSURED PATIENTS -- BIN:512814, PCN: ASPROD1, Group: [id number], ID# [id number], Process claim through [employer], for questions: . THIS IS NOT INSURANCE.] gemfibrozil 600 mg tablet RxNorm: 696798 1 Tablet(s) PO BID 11/201310/23/2013 Inactive gemfibrozil 600 mg tablet RxNorm: 980221 1 Tablet(s) PO BID 11/201309/30/2014 Inactive [SAVINGS FOR UNINSURED PATIENTS -- BIN:357377, PCN: ASPROD1, Group: [id number] , ID# [id number], Process claim through [employer], for questions: . THIS IS NOT INSURANCE.] finasteride 5 mg tablet RxNorm: 800323 1 Tablet(s) PO daily 04/201301/24/2014 Inactive [SAVINGS FOR UNINSURED PATIENTS -- BIN:767801, PCN: ASPROD1, Group: [id number] , ID# [id number], Process claim through [employer], for questions: . THIS IS NOT INSURANCE.] Lantus Solostar 100 unit/mL (3 mL) subcutaneous insulin pen RxNorm: 115838 20 Unit(s) SQ daily 10/09/2013 05/29/2014 Inactive [SAVINGS FOR UNINSURED PATIENTS -- BIN:677614, PCN: ASPROD1, Group: [id number], ID# [id number], Process claim through [employer], for questions: . THIS IS NOT INSURANCE.] glipizide 10 mg tablet RxNorm: 770064 1 Tablet(s) PO daily 04/05/2014 Inactive [SAVINGS FOR UNINSURED PATIENTS -- BIN:210265, PCN: ASPROD1, Group: [id number] , ID# [id number], Process claim through [employer], for questions: . THIS IS NOT INSURANCE.] Lantus Solostar 100 unit/mL (3 mL) subcutaneous insulin pen RxNorm: 011890 20 Unit(s) SQ daily 07/18/2013 10/08/2013 Inactive Sinemet 25 mg-100 mg tablet RxNorm: 513755 1 Tablet(s) PO BID one pill in morning , one at supper 07/10/2013 01/25/2014 Inactive Sinemet 25 mg-100 mg tablet RxNorm: 749321 1 Tablet(s) PO BID one pill in morning , one at supper 04/24/2013 07/09/2013 Inactive metformin ER 500 mg tablet,extended release 24 hr RxNorm: 307552 1 Tablet(s) PO BID 04/24/2013 04/18/2014 Inactive glipizide 10 mg tablet RxNorm: 989557 1 Tablet(s) PO daily 09/201310/08/2013 Inactive lisinopril 20 mg tablet RxNorm: 596914 1 Tablet(s) PO BID 04/2410/20/2013 Inactive pravastatin 10 mg tablet RxNorm: 991177 1 Tablet(s) PO daily 10/20/2013 Inactive Lantus Solostar 100 unit/mL (3 mL) subcutaneous insulin pen RxNorm: 495629 20 Unit(s) SQ daily 04/24/2013 07/17/2013 Inactive glipizide 10 mg tablet RxNorm: 329988 1 Tablet(s) PO daily 05/201304/23/2013 Inactive glipizide 10 mg tablet RxNorm: 488877 1 Tablet(s) PO daily 05/201204/19/2013 Inactive Lantus Solostar 100 unit/mL (3 mL) subcutaneous insulin pen RxNorm: 715049 16 Unit(s) SQ daily 03/20/2013 04/23/2013 Inactive Sinemet 25 mg-100 mg tablet RxNorm: 073051 1 Tablet(s) PO BID one pill in morning , one at supper 01/20/2013 04/23/2013 Inactive Lantus Solostar 100 unit/mL (3 mL) subcutaneous insulin pen RxNorm: 065382 16 Unit(s) SQ daily 01/19/2013 01/25/2013 Inactive Sinemet 25 mg-100 mg tablet RxNorm: 238683 1 Tablet(s) PO BID one pill in morning , one at supper 01/19/2013 01/19/2013 Inactive glipizide 10 mg tablet RxNorm: 338239 1 Tablet(s) PO BID 201203/19/2013 Inactive Lantus Solostar 100 unit/mL (3 mL) Sub-Q Insulin Pen RxNorm: 249874 12 Unit(s) SQ daily 12/21/2012 01/18/2013 Inactive lisinopril 20 mg tablet RxNorm: 337153 1 Tablet(s) PO BID 12/0804/23/2013 Inactive metformin ER 500 mg tablet,extended release 24 hr RxNorm: 653144 1 Tablet(s) PO BID 11/30/2012 04/23/2013 Inactive Lantus Solostar 100 unit/mL (3 mL) Sub-Q Insulin Pen RxNorm: 247898 5 Unit(s) SQ daily 11/30/2012 12/07/2012 Inactive FINASTERIDE TAB 5MG RxNorm: 10/03/2012 Inactive lisinopril 20 mg tablet RxNorm: 007919 1 Tablet(s) PO BID 09/0812/06/2012 Inactive glipizide 10 mg tablet RxNorm: 534110 1 Tablet(s) PO BID 201212/30/2012 Inactive metronidazole 500 mg tablet RxNorm: 361614 1 Tablet(s) PO TID 05/30/2012 06/08/2012 Inactive metformin ER 500 mg tablet,extended release 24 hr RxNorm: 388630 2 Tablet(s) PO daily 04/22/2012 11/29/2012 Inactive metformin ER 500 mg tablet,extended release 24 hr RxNorm: 869934 2 Tablet(s) PO daily 04/21/2012 04/21/2012 Inactive ketoconazole 2 % Topical Cream RxNorm: 929740 1 Application TOP BID 04/14/2012 05/04/2012 Inactive ketoconazole 2 % Shampoo RxNorm: 130224 1 Application TOP every other day apply to feet, leave on for 5 minutes, then rinse. 04/14/2012 04/27/2012 Inactive clotrimazole 1 % Topical Cream RxNorm: 657201 1 Application TOP BID 02/22/2012 04/03/2012 Inactive glipizide 10 mg tablet RxNorm: 525386 1 Tablet(s) PO BID 201106/18/2012 Inactive lisinopril 20 mg tablet RxNorm: 606401 1 Tablet(s) PO BID 09/0108/26/2012 Inactive metformin ER 500 mg tablet,extended release 24 hr RxNorm: 708031 2 Tablet(s) PO daily 08/10/2011 04/20/2012 Inactive metformin ER 1,000 mg 24 hr Tab Ctrl Rel RxNorm: 026203 1 Tablet(s) PO daily 07/28/2011 08/09/2011 Inactive Kombiglyze XR 5 mg-1,000 mg 24 hr Tab RxNorm: 8103220 1 Tablet(s) PO daily 07/28/2011 07/27/2011 Inactive Kombiglyze XR 5 mg-1,000 mg 24 hr Tab RxNorm: 4350539 1 Tablet(s) PO daily 07/28/2011 07/28/2011 Inactive glipizide 10 mg tablet RxNorm: 219906 1 Tablet(s) PO BID 201107/27/2011 Inactive glipizide 10 mg Tab RxNorm: 541132 1 Tablet(s) PO BID 201106/16/2011 Inactive glipizide 10 mg Tab RxNorm: 088658 1 Tablet(s) PO BID 201006/15/2011 Inactive glipizide 10 mg Tab RxNorm: 483361 1 Tablet(s) PO BID 201004/01/2011 Inactive glipizide 10 mg Tab RxNorm: 164036 Tablet(s) PO BID 201003/31/2011 Inactive Calcium + Vitamin D 600 mg calcium-200 unit tablet RxNorm: 281042 1 Tablet(s) PO BID No Start Date Active pantoprazole 40 mg tablet,delayed release RxNorm: 535711 1 Tablet(s) PO daily No Start Date 12/25/2013 Inactive Sinemet 25 mg-100 mg tablet RxNorm: 886403 1/2 Tablet(s) PO BID one pill in morning, one at supper No Start Date 01/18 Inactive levothyroxine 100 mcg tablet RxNorm: 425607 1 Tablet(s) PO daily No Start Date 10/04/2016 Inactive lisinopril 20 mg Tab RxNorm: 444401 1 Tablet(s) PO BID No Start Date 09/01/2011 Inactive hydrocodone 5 mg-acetaminophen 325 mg tablet RxNorm: 335853 1-2 Tablet(s) PO Q6- 8H No Start Date 01/20/2016 Inactive pravastatin 10 mg tablet RxNorm: 416794 1 Tablet(s) PO daily No Start Date 04/23/2013 Inactive Medication Administered Medication Codes Instructions Start Date Status Kenalog 40 mg/mL suspension for injection RxNorm: 0988181 1Milliliter 07/30/2016 No longer Active Kenalog 40 mg/mL suspension for injection RxNorm: 1057392 1Milliliter 01/20/2016 No longer Active Immunizations Vaccine [...] Code Item Item Code Result Date %Hba1C Twu895 % HbA1c 07883-2 7.0 % 05/13/2017 %Hba1C Fpa717 Gluc Ave 154 mg/dL 05/13/2017 Tsh Ord6 hTSH II 9.43 uIU/mL 02/02/2017 Comp Metabolic Orh849 NA 134 mEq/L 02/02/2017 Comp Metabolic Zsz009 K 4.4 mEq/L 02/02/2017 Comp Metabolic Rga085 CL 99 mEq/L 02/02/2017 Comp Metabolic Ghf118 CO2 26.0 mEq/L 02/02/2017 Comp Metabolic Rbg395 ANION GAP 13 02/02/2017 Comp Metabolic Non719 GLUCOSE 256 mg/dL 02/02/2017 Comp Metabolic Vev294 Creat 1.6 mg/dL 02/02/2017 Comp Metabolic Djq910 eGFR 45 ml/min/1.73m2 02/02/2017 Comp Metabolic Ibg892 BUN 26 mg/dL 02/02/2017 Comp Metabolic Umn867 B/C Ratio 16.6 Ratio 02/02/2017 Comp Metabolic Fzz453 CALCIUM 8.7 mg/dL 02/02/2017 Comp Metabolic Ipp682 ALK PHOS 63 U/L 02/02/2017 Comp Metabolic Uyp352 AST(SGOT) 11 U/L 02/02/2017 Comp Metabolic Lyz287 ALT(SGPT) 9 U/L 02/02/2017 Comp Metabolic Wzm235 BILI T 0.5 mg/dL 02/02/2017 Comp Metabolic Kie977 ALBUMIN 3.7 g/dL 02/02/2017 Comp Metabolic Cjt789 TPRO 6.1 g/dL 02/02/2017 Comp Metabolic Bsw683 GLOB 2.4 g/dL 02/02/2017 Comp Metabolic Gtn193 A/G Ratio 1.6 Ratio 02/02/2017 Comp Metabolic Dbu143 Osmo 282 mOsmo 02/02/2017 %Hba1C Gwl754 % HbA1c 81942-0 7.5 % 02/02/2017 %Hba1C Hzv528 Gluc Ave 169 mg/dL 02/02/2017 Free T4 Xxh323 FREE T4 1.23 ng/dL 02/02/2017 Cbc With [...] 93.0 fl 02/02/2017 Cbc With Differential Ord2 [place]% 9.6 % 02/02/2017 Cbc With Differential Ord2 [...] 2.61 K/ul 02/02/2017 Cbc With Differential Ord2 [place] ABS# 0.8 K/ul 02/02/2017 Cbc With Differential Ord2 Eos ABS# 0.2 K/ul 02/02/2017 Cbc With Differential Ord2 Baso ABS# 0.1 K/ul 02/02/2017 Total T3 Ord42 TT3 0.59 ng/ml 07/14/2016 Free T4 Zww819 FREE T4 1.14 ng/dL 07/14/2016 Cbc With [...] 34.9 % 06/22/2016 Cbc With Differential Ord2 [place]% 9.9 % 06/22/2016 Cbc With Differential Ord2 [...] 2.41 K/ul 06/22/2016 Cbc With Differential Ord2 [place] ABS# 0.7 K/ul 06/22/2016 Cbc With Differential Ord2 Eos ABS# 0.2 K/ul 06/22/2016 Cbc With Differential Ord2 Baso ABS# 0.0 K/ul 06/22/2016 Comp Metabolic Nqa789 NA 134 mEq/L 06/22/2016 Comp Metabolic Ajb903 K 4.3 mEq/L 06/22/2016 Comp Metabolic Xlt778 CL 100 mEq/L 06/22/2016 Comp Metabolic Qei756 CO2 26.0 mEq/L 06/22/2016 Comp Metabolic Udg989 ANION GAP 12 06/22/2016 Comp Metabolic Vad080 GLUCOSE 222 mg/dL 06/22/2016 Comp Metabolic Uxx756 Creat 1.5 mg/dL 06/22/2016 Comp Metabolic Byr262 eGFR 49 ml/min/1.73m2 06/22/2016 Comp Metabolic Xek901 BUN 23 mg/dL 06/22/2016 Comp Metabolic Kzq139 B/C Ratio 15.9 Ratio 06/22/2016 Comp Metabolic Aav474 CALCIUM 9.0 mg/dL 06/22/2016 Comp Metabolic Myd942 ALK PHOS 59 U/L 06/22/2016 Comp Metabolic Mjc976 AST(SGOT) 13 U/L 06/22/2016 Comp Metabolic Tep039 ALT(SGPT) 11 U/L 06/22/2016 Comp Metabolic Ljv285 BILI T 0.5 mg/dL 06/22/2016 Comp Metabolic Iwc506 ALBUMIN 3.8 g/dL 06/22/2016 Comp Metabolic Ttp139 TPRO 6.2 g/dL 06/22/2016 Comp Metabolic Kbw893 GLOB 2.4 g/dL 06/22/2016 Comp Metabolic Nvm823 A/G Ratio 1.6 Ratio 06/22/2016 Comp Metabolic Hds481 Osmo 279 mOsmo 06/22/2016 Tsh Ord6 hTSH II 0.44 uIU/mL 06/22/2016 Comp Metabolic Opn828 NA 134 mEq/L 04/27/2016 Comp Metabolic Njj183 K 4.6 mEq/L 04/27/2016 Comp Metabolic Skz868 CL 99 mEq/L 04/27/2016 Comp Metabolic Fgq536 CO2 27.0 mEq/L 04/27/2016 Comp Metabolic Yuh447 ANION GAP 13 04/27/2016 Comp Metabolic Ihv808 GLUCOSE 178 mg/dL 04/27/2016 Comp Metabolic Eck558 Creat 1.4 mg/dL 04/27/2016 Comp Metabolic Zdc483 eGFR 53 ml/min/1.73m2 04/27/2016 Comp Metabolic Qqt131 BUN 24 mg/dL 04/27/2016 Comp Metabolic Zog717 B/C Ratio 17.5 Ratio 04/27/2016 Comp Metabolic Fja739 CALCIUM 9.1 mg/dL 04/27/2016 Comp Metabolic Dco595 ALK PHOS 72 U/L 04/27/2016 Comp Metabolic Zno987 AST(SGOT) 16 U/L 04/27/2016 Comp Metabolic Eto644 ALT(SGPT) 12 U/L 04/27/2016 Comp Metabolic Jbu547 BILI T 0.6 mg/dL 04/27/2016 Comp Metabolic Tyi305 ALBUMIN 4.1 g/dL 04/27/2016 Comp Metabolic Lfz146 TPRO 6.8 g/dL 04/27/2016 Comp Metabolic Nff565 GLOB 2.7 g/dL 04/27/2016 Comp Metabolic Qmv910 A/G Ratio 1.6 Ratio 04/27/2016 Comp Metabolic Mge480 Osmo 277 mOsmo 04/27/2016 Cbc With Differential [...] 33.1 % 04/27/2016 Cbc With Differential Ord2 [place]% 9.7 % 04/27/2016 Cbc With Differential Ord2 [...] 2.89 K/ul 04/27/2016 Cbc With Differential Ord2 [place] ABS# 0.9 K/ul 04/27/2016 Cbc With Differential Ord2 Eos ABS# 0.2 K/ul 04/27/2016 Cbc With Differential Ord2 Baso ABS# 0.0 K/ul 04/27/2016 %Hba1C Tnd013 % HbA1c 01653-5 7.2 % 04/27/2016 %Hba1C Gml733 Gluc Ave 160 mg/dL 04/27/2016 Cbc With [...] 31.0 pg 01/21/2016 Cbc With Differential Ord2 [place]% 8.9 % 01/21/2016 Cbc With Differential Ord2 [...] 1.91 K/ul 01/21/2016 Cbc With Differential Ord2 [place] ABS# 0.6 K/ul 01/21/2016 Cbc With Differential Ord2 Eos ABS# 0.2 K/ul 01/21/2016 Cbc With Differential Ord2 Baso ABS# 0.0 K/ul 01/21/2016 Comp Metabolic Tth474 NA 134 mEq/L 01/21/2016 Comp Metabolic Hkd874 K 5.0 mEq/L 01/21/2016 Comp Metabolic Cls904 CL 99 mEq/L 01/21/2016 Comp Metabolic Gmx818 CO2 26.0 mEq/L 01/21/2016 Comp Metabolic Nhl073 ANION GAP 14 01/21/2016 Comp Metabolic Bbf425 GLUCOSE 260 mg/dL 01/21/2016 Comp Metabolic Aqj545 Creat 1.5 mg/dL 01/21/2016 Comp Metabolic Qnu421 eGFR 50 ml/min/1.73m2 01/21/2016 Comp Metabolic Odo652 BUN 18 mg/dL 01/21/2016 Comp Metabolic Vku032 B/C Ratio 12.4 Ratio 01/21/2016 Comp Metabolic Pyp172 CALCIUM 8.8 mg/dL 01/21/2016 Comp Metabolic Tee494 ALK PHOS 68 U/L 01/21/2016 Comp Metabolic Tmk157 AST(SGOT) 16 U/L 01/21/2016 Comp Metabolic Zot654 ALT(SGPT) 16 U/L 01/21/2016 Comp Metabolic Eng489 BILI T 0.5 mg/dL 01/21/2016 Comp Metabolic Jfj140 ALBUMIN 3.8 g/dL 01/21/2016 Comp Metabolic Ejo499 TPRO 6.3 g/dL 01/21/2016 Comp Metabolic Xic812 GLOB 2.5 g/dL 01/21/2016 Comp Metabolic Jxs333 A/G Ratio 1.5 Ratio 01/21/2016 Comp Metabolic Hbp483 Osmo 279 mOsmo 01/21/2016 %Hba1C Yuk073 % HbA1c 78204-7 7.4 % 01/21/2016 %Hba1C Egy581 Gluc Ave 166 mg/dL 01/21/2016 Metabolic Ord15 [...] Qnt Crqnt CRP 1.5 mg/dl 09/17/2015 %Hba1C Zbj773 % HbA1c 33799-0 7.1 % 09/17/2015 %Hba1C Krk222 Gluc Ave 157 mg/dL 09/17/2015 Cbc With [...] 31.7 pg 08/06/2015 Cbc With Differential Ord2 [place]% 9.6 % 08/06/2015 Cbc With Differential Ord2 [...] 2.90 K/ul 08/06/2015 Cbc With Differential Ord2 [place] ABS# 0.7 K/ul 08/06/2015 Cbc With Differential Ord2 Eos ABS# 0.2 K/ul 08/06/2015 Cbc With Differential Ord2 Baso ABS# 0.0 K/ul 08/06/2015 Cbc With Differential Ord2 New Analyzer Notice Please note new ref ranges starting 05-01-2015 due to implemntation of new five part differential hematolgy analyzer. 08/06/2015 Comp Metabolic Uja831 NA 132 mEq/L 08/06/2015 Comp Metabolic Nny417 K 4.6 mEq/L 08/06/2015 Comp Metabolic Otu093 CL 98 mEq/L 08/06/2015 Comp Metabolic Nre355 CO2 25.0 mEq/L 08/06/2015 Comp Metabolic Cfc817 ANION GAP 14 08/06/2015 Comp Metabolic Mbc790 GLUCOSE 170 mg/dL 08/06/2015 Comp Metabolic Egm611 Creat 1.5 mg/dL 08/06/2015 Comp Metabolic Tvk792 eGFR 46 ml/min/1.73m2 08/06/2015 Comp Metabolic Gjn334 BUN 21 mg/dL 08/06/2015 Comp Metabolic Qcd080 B/C Ratio 13.6 Ratio 08/06/2015 Comp Metabolic Rln374 CALCIUM 8.9 mg/dL 08/06/2015 Comp Metabolic Ckc712 ALK PHOS 60 U/L 08/06/2015 Comp Metabolic Gfq545 AST(SGOT) 16 U/L 08/06/2015 Comp Metabolic Yjd125 ALT(SGPT) 18 U/L 08/06/2015 Comp Metabolic Tyf525 BILI T 0.4 mg/dL 08/06/2015 Comp Metabolic Wlz630 ALBUMIN 3.8 g/dL 08/06/2015 Comp Metabolic Wyo673 TPRO 6.3 g/dL 08/06/2015 Comp Metabolic Vev231 GLOB 2.5 g/dL 08/06/2015 Comp Metabolic Ajp892 A/G Ratio 1.6 Ratio 08/06/2015 Comp Metabolic Fxb672 Osmo 271 mOsmo 08/06/2015 Tsh Ord6 hTSH II 0.95 uIU/mL 06/17/2015 Free T4 Cxa566 FREE T4 1.08 ng/dL 06/17/2015 Metabolic Ord15 [...] Ord15 CALCIUM 9.0 mg/dL 05/06/2015 Comp Metabolic Gfp914 NA 143 mEq/L 03/04/2015 Comp Metabolic Lqx905 K 4.5 mEq/L 03/04/2015 Comp Metabolic Euy216 CL 92 mEq/L 03/04/2015 Comp Metabolic Scs950 CO2 24.0 mEq/L 03/04/2015 Comp Metabolic Ayo552 ANION GAP 32 03/04/2015 Comp Metabolic Rkq179 GLUCOSE 72 mg/dL 03/04/2015 Comp Metabolic Fkv441 Creat 1.5 mg/dL 03/04/2015 Comp Metabolic Wms167 eGFR 48 ml/min/1.73m2 03/04/2015 Comp Metabolic Gkn734 BUN 27 mg/dL 03/04/2015 Comp Metabolic Rye944 B/C Ratio 18.0 Ratio 03/04/2015 Comp Metabolic Peq842 CALCIUM 9.1 mg/dL 03/04/2015 Comp Metabolic Lmt774 ALK PHOS 58 U/L 03/04/2015 Comp Metabolic Jlt924 AST(SGOT) 16 U/L 03/04/2015 Comp Metabolic Cpu887 ALT(SGPT) 13 U/L 03/04/2015 Comp Metabolic Wpe017 BILI T 0.6 mg/dL 03/04/2015 Comp Metabolic Ewr668 ALBUMIN 4.0 g/dL 03/04/2015 Comp Metabolic Ywz761 TPRO 6.6 g/dL 03/04/2015 Comp Metabolic Kbs380 GLOB 2.6 g/dL 03/04/2015 Comp Metabolic Oir142 A/G Ratio 1.6 Ratio 03/04/2015 Comp Metabolic Nax321 Osmo 289 mOsmo 03/04/2015 %Hba1C Isq911 % HbA1c 18064-2 7.3 % 01/28/2015 %Hba1C Xbj871 Gluc Ave 163 mg/dL 01/28/2015 MICRALUR 3978934 MICRL MG/L 13.2 MG/L 10/01/2014 MICRALUR 1390681 XM.ALB/CRE 48.9 MG/GCR 10/01/2014 MICRALUR 7210858 CREAT MG/D 27 MG/DL 10/01/2014 MICRALUR 8087442 CRE/100 0.27 G/L 10/01/2014 A1C HPLC 5631773 A1C HPLC 98145-2 7.3 % 10/01/2014 TSH 4869284 TSH 0.423 uIU/ML 10/01/2014 TSH 2523221 TSH 0.612 uIU/ML 10/18/2013 A1C HPLC 5909785 A1C HPLC 22924-5 6.8 % 10/18/2013 GFR CALC 9490722 GFR AA >60 ML/MIN 10/18/2013 GFR CALC 4056971 GFR NON-AA 52.0L ML/MIN 10/18/2013 LIPID GRP HDL TEST 30 MG/DL 10/18/2013 LIPID GRP TRIG 425 MG/DL 10/18/2013 LIPID GRP TEST LDL HI TRIG MG/DL 10/18/2013 LIPID GRP CHOL 185 MG/DL 10/18/2013 LIPID GRP RCHOL/HDL 6.17 RATIO 10/18/2013 MICRALUR MICRL MG/L 15.6 MG/L 10/18/2013 MICRALUR XM.ALB/CRE 9.2 MG/GCR 10/18/2013 MICRALUR 0183764 CREAT MG/D 169 MG/DL 10/18/2013 MICRALUR 2415118 CRE/100 1.69 G/L 10/18/2013 CHEM 14 1506224 AST 20 U/L 10/18/2013 CHEM 14 7636597 ALT 13 IU/L 10/18/2013 CHEM 14 7064376 BUN 27 MG/DL 10/18/2013 CHEM 14 9653558 ALBUMIN 4.2 GM/DL 10/18/2013 CHEM 14 5680697 CHLORIDE 100 MMOL/L 10/18/2013 CHEM 14 5845273 BILI TOT 0.5 MG/DL 10/18/2013 CHEM 14 9329003 ALK PHOS 60 U/L 10/18/2013 CHEM 14 4620701 SODIUM 131 MMOL/L 10/18/2013 CHEM 14 6627591 CREATININE 1.32 MG/DL 10/18/2013 CHEM 14 8780040 CALCIUM 9.2 MG/DL 10/18/2013 CHEM 14 4208347 POTASSIUM 4.7 MMOL/L 10/18/2013 CHEM 14 4602837 PROT TOT 7.7 GM/DL 10/18/2013 CHEM 14 3423025 GLUCOSE 140 MG/DL 10/18/2013 CHEM 14 2991841 BICARB 24 MMOL/L 10/18/2013 CHEM 14 0658254 ANION GAP 7 MEQ/L 10/18/2013 PSA EQ 20110613 PSA EQ 7.79 NG/ML 10/18/2013 CBC 6922304 WBC 6.6 10e9/L 10/18/2013 CBC 1092941 RBC 4.58 10e12/L 10/18/2013 CBC 6121085 HGB 14.6 g/dL 10/18/2013 CBC 0663742 HCT DET 42.8 % 10/18/2013 CBC 6478406 MCV 93.4 fL 10/18/2013 CBC 7607224 MCH 31.9 pg 10/18/2013 CBC 2048615 MCHC 34.1 g/dL 10/18/2013 CBC 6113520 PLT 172 10e9/L 10/18/2013 CBC 8463703 MPV 9.3 fL 10/18/2013 CBC 5352433 JAYESH % 55.4 % 10/18/2013 CBC 2893702 LY % 33.0 % 10/18/2013 CBC 9751457 MON % 8.8 % 10/18/2013 CBC 0453982 EOS % 2.6 % 10/18/2013 CBC 9411401 BASO % 0.2 % 10/18/2013 CBC 7702986 RDW 12.7 % 10/18/2013 CBC 7568526 ABS JAYESH 3.66 10e9/L 10/18/2013 CBC 4780990 ABS LYMPH 2.18 10e9/L 10/18/2013 CBC 4775577 ABS MONO 0.58 10e9/L 10/18/2013 CBC 2201817 ABS EOS 0.17 10e9/L 10/18/2013 CBC 6629879 ABS BASO 0.01 10e9/L 10/18/2013 CBC 8243632 RDW-SD 42.6 fL 10/18/2013 TSH 9296593 TSH 1.257 uIU/ML 05/05/2013 CHEM 14 9351769 AST 15 U/L 05/05/2013 CHEM 14 3030884 ALT 13 IU/L 05/05/2013 CHEM 14 2996128 BUN 22 MG/DL 05/05/2013 CHEM 14 1961602 ALBUMIN 4.2 GM/DL 05/05/2013 CHEM 14 2624402 CHLORIDE 104 MMOL/L 05/05/2013 CHEM 14 7611819 BILI TOT 0.6 MG/DL 05/05/2013 CHEM 14 7331891 ALK PHOS 52 U/L 05/05/2013 CHEM 14 9133314 SODIUM 137 MMOL/L 05/05/2013 CHEM 14 0656187 CREATININE 1.25 MG/DL 05/05/2013 CHEM 14 6283287 CALCIUM 9.1 MG/DL 05/05/2013 CHEM 14 6029182 POTASSIUM 5.0 MMOL/L 05/05/2013 CHEM 14 8989260 PROT TOT 6.7 GM/DL 05/05/2013 CHEM 14 7427826 GLUCOSE 142 MG/DL 05/05/2013 CHEM 14 6456982 BICARB 27 MMOL/L 05/05/2013 CHEM 14 2121267 ANION GAP 6 MEQ/L 05/05/2013 GFR CALC 7086146 GFR AA >60 ML/MIN 05/05/2013 GFR CALC 4602983 GFR NON-AA 56.0L ML/MIN 05/05/2013 CBC 7028479 WBC 6.1 10e9/L 05/05/2013 CBC 3734673 RBC 4.74 10e12/L 05/05/2013 CBC 7094951 HGB 14.7 g/dL 05/05/2013 CBC 4839072 HCT DET 43.6 % 05/05/2013 CBC 8117523 MCV 92.0 fL 05/05/2013 CBC 5308544 MCH 31.0 pg 05/05/2013 CBC 6619918 MCHC 33.7 g/dL 05/05/2013 CBC 8620183 PLT 168 10e9/L 05/05/2013 CBC 4869967 MPV 9.3 fL 05/05/2013 CBC 8323079 JAYESH % 53.2 % 05/05/2013 CBC 9418093 LY % 35.3 % 05/05/2013 CBC 3301823 MON % 8.7 % 05/05/2013 CBC 9250143 EOS % 2.5 % 05/05/2013 CBC 3018805 BASO % 0.3 % 05/05/2013 CBC 7872505 RDW 13.5 % 05/05/2013 CBC 6713580 ABS JAYESH 3.25 10e9/L 05/05/2013 CBC 4876069 ABS LYMPH 2.15 10e9/L 05/05/2013 CBC 2390354 ABS MONO 0.53 10e9/L 05/05/2013 CBC 5768831 ABS EOS 0.15 10e9/L 05/05/2013 CBC 3031194 ABS BASO 0.02 10e9/L 05/05/2013 CBC 0973558 RDW-SD 44.8 fL 05/05/2013 A1C HPLC 7659893 A1C HPLC 73795-2 6.4 % 05/05/2013 LIPID GRP HDL TEST 32 MG/DL 05/05/2013 LIPID GRP TRIG 170 MG/DL 05/05/2013 LIPID GRP TEST LDL 73 MG/DL 05/05/2013 LIPID GRP CHOL 139 MG/DL 05/05/2013 LIPID GRP RCHOL/HDL 4.34 RATIO 05/05/2013 CHEM 14 0609739 AST 17 U/L 11/25/2012 CHEM 14 5163584 ALT 21 IU/L 11/25/2012 CHEM 14 8731395 BUN 20 MG/DL 11/25/2012 CHEM 14 2847262 ALBUMIN 4.4 GM/DL 11/25/2012 CHEM 14 8188127 CHLORIDE 99 MMOL/L 11/25/2012 CHEM 14 1536490 BILI TOT 0.6 MG/DL 11/25/2012 CHEM 14 1233802 ALK PHOS 50 U/L 11/25/2012 CHEM 14 9408039 SODIUM 129 MMOL/L 11/25/2012 CHEM 14 9074742 CREATININE 1.20 MG/DL 11/25/2012 CHEM 14 0559150 CALCIUM 9.2 MG/DL 11/25/2012 CHEM 14 4825834 POTASSIUM 5.1 MMOL/L 11/25/2012 CHEM 14 2447480 PROT TOT 6.7 GM/DL 11/25/2012 CHEM 14 8345874 GLUCOSE 196 MG/DL 11/25/2012 CHEM 14 0670716 BICARB 25 MMOL/L 11/25/2012 CHEM 14 7383803 ANION GAP 5 MEQ/L 11/25/2012 CBC 9057446 WBC 6.1 10e9/L 11/25/2012 CBC 1151286 RBC 4.78 10e12/L 11/25/2012 CBC 1785950 HGB 15.0 g/dL 11/25/2012 CBC 7737320 HCT DET 43.4 % 11/25/2012 CBC 5157945 MCV 90.8 fL 11/25/2012 CBC 3700587 MCH 31.4 pg 11/25/2012 CBC 1899248 MCHC 34.6 g/dL 11/25/2012 CBC 9630221 PLT 174 10e9/L 11/25/2012 CBC 0091335 MPV 9.5 fL 11/25/2012 CBC 6513475 JAYESH % 54.6 % 11/25/2012 CBC 1656505 LY % 32.9 % 11/25/2012 CBC 0942285 MON % 9.6 % 11/25/2012 CBC 6724390 EOS % 2.6 % 11/25/2012 CBC 4633373 BASO % 0.3 % 11/25/2012 CBC 1261546 RDW 12.9 % 11/25/2012 CBC 0715356 ABS JAYESH 3.33 10e9/L 11/25/2012 CBC 6234405 ABS LYMPH 2.01 10e9/L 11/25/2012 CBC 3874457 ABS MONO 0.59 10e9/L 11/25/2012 CBC 2473748 ABS EOS 0.16 10e9/L 11/25/2012 CBC 3156325 ABS BASO 0.02 10e9/L 11/25/2012 CBC 4301121 RDW-SD 42.3 fL 11/25/2012 LIPID GRP HDL TEST 39 MG/DL 11/25/2012 LIPID GRP TRIG 204 MG/DL 11/25/2012 LIPID GRP TEST LDL 100 MG/DL 11/25/2012 LIPID GRP CHOL 180 MG/DL 11/25/2012 LIPID GRP RCHOL/HDL 4.62 RATIO 11/25/2012 A1C HPLC 8475631 A1C HPLC 59149-4 8.2 % 11/25/2012 GFR CALC 6002009 GFR AA >60 ML/MIN 11/25/2012 GFR CALC 1540650 GFR NON-AA 58.0L ML/MIN 11/25/2012 TSH 6125704 TSH 0.636 uIU/ML 01/13/2012 A1C HPLC 0557573 A1C HPLC 56518-0 7.9 % 01/13/2012 GFR CALC 1223342 GFR AA >60 ML/MIN 01/13/2012 GFR CALC 6666398 GFR NON-AA 59.0L ML/MIN 01/13/2012 CBC 4963022 WBC 7.8 10e9/L 01/13/2012 CBC 3716019 RBC 4.93 10e12/L 01/13/2012 CBC 8695066 HGB 15.3 g/dL 01/13/2012 CBC 4003918 HCT DET 43.6 % 01/13/2012 CBC 4213786 MCV 88.4 fL 01/13/2012 CBC 7239825 MCH 31.0 pg 01/13/2012 CBC 5049505 MCHC 35.1 g/dL 01/13/2012 CBC 6178626 PLT 173 10e9/L 01/13/2012 CBC 5726924 MPV 9.1 fL 01/13/2012 CBC 7475888 JAYESH % 57.6 % 01/13/2012 CBC 3609763 LY % 31.5 % 01/13/2012 CBC 7684216 MON % 8.8 % 01/13/2012 CBC 1592270 EOS % 1.8 % 01/13/2012 CBC 1598637 BASO % 0.3 % 01/13/2012 CBC 6515340 RDW 12.9 % 01/13/2012 CBC 2623661 ABS JAYESH 4.49 10e9/L 01/13/2012 CBC 6257893 ABS LYMPH 2.46 10e9/L 01/13/2012 CBC 6744705 ABS MONO 0.69 10e9/L 01/13/2012 CBC 3708208 ABS EOS 0.14 10e9/L 01/13/2012 CBC 6368643 ABS BASO 0.02 10e9/L 01/13/2012 CBC 2764675 RDW-SD 41.2 fL 01/13/2012 CHEM 14 9880678 AST 21 U/L 01/13/2012 CHEM 14 5643774 ALT 23 IU/L 01/13/2012 CHEM 14 5265767 BUN 20 MG/DL 01/13/2012 CHEM 14 2937834 ALBUMIN 4.4 GM/DL 01/13/2012 CHEM 14 1161996 CHLORIDE 94 MMOL/L 01/13/2012 CHEM 14 8527499 BILI TOT 0.5 MG/DL 01/13/2012 CHEM 14 8656593 ALK PHOS 60 U/L 01/13/2012 CHEM 14 6057976 SODIUM 131 MMOL/L 01/13/2012 CHEM 14 7857231 CREATININE 1.20 MG/DL 01/13/2012 CHEM 14 2204549 CALCIUM 9.5 MG/DL 01/13/2012 CHEM 14 1114257 POTASSIUM 4.3 MMOL/L 01/13/2012 CHEM 14 4326909 PROT TOT 6.5 GM/DL 01/13/2012 CHEM 14 4604055 GLUCOSE 172 MG/DL 01/13/2012 CHEM 14 0294127 BICARB 26 MMOL/L 01/13/2012 CHEM 14 3884510 ANION GAP 11 MEQ/L 01/13/2012 Review of [...] 1994 Ears/Nose/Throat oral cavity/pharynx/larynx Overall: no masses 03/20/2013 [...] accomodation 01/19/2013 None Full Exam - General 1995 [...] time 12/26/2012 None Full Exam - General 1995 Integument inspection of skin Location: face 12/26/2012 small red lesion with white scale on top- AK- left and right ear-left cheek, top of head x 2, behind right ear Full Exam - General 1995 Constitutional general appearance Overall: well developed 12/21/2012 None Full Exam - General 1994 Constitutional general appearance Overall: in no acute distress 12/21/2012 None Full Exam - General 1995 Constitutional general appearance Overall: well nourished 12/21/2012 [...] masses 11/30/2012 None Full Exam - General 1995 Respiratory auscultation Overall: breath sounds clear bilaterally 11/30/2012 None Full Exam - General 1995 Respiratory respiratory effort/rhythm Overall: no retractions 11/30/2012 None Full Exam - General 1995 Respiratory respiratory effort/rhythm Overall: normal rate 11/30/2012 [...] developed 05/30/2012 None Full Exam - General 1995 [...] distress 04/26/2012 None Full Exam - General 1995 Constitutional general appearance Overall: well nourished 04/26/2012 [...] occlusion 04/26/2012 None Full Exam - General 1994 [...] 1995 Ears/Nose/Throat oral cavity/pharynx/larynx Overall: no masses 04/14/2012 [...] discharge 01/13/2012 None Full Exam - General 1995 [...] WOUN RTS (CULTURE OTHR SPECIMN AEROBIC) CPT-4: 74570 03/19/2015 DRAINAGE OF SKIN ABSCESS CPT-4: 55476 03/19/2015 ADMIN PNEUMOCOCCAL VACCINE SNOMED CT: 65113394 CPT-4: G0009 03/08/2015 PNEUMOCOCCAL VACC 13 THALIA IM Formatting Model/CDA Sections, Assigned to SNOMED CT: 77053635 CPT-4: 96708Gmthwii 03/08/2015 ADMIN PNEUMOCOCCAL VACCINE SNOMED CT: 38294562 CPT-4: G0009 01/23/2014 Pneumococcal Polysaccharide Vaccine, 23-Valent, Ad Assigned to/Merissa Sutton CPT-4: 76541Fbxfoyt 01/23/2014 DESTRUCT PREMALG LESION CPT-4: 17752 10/24/2013 DESTRUCT PREMALG LES 2-14 CPT-4: 37068 10/24/2013 ROUTINE VENIPUNCTURE CPT-4: 74273 05/05/2013 PRESCRIP TRANSMIT VIA ERX SY CPT-4: G8553 04/24/2013 DESTRUCT PREMALG LESION CPT-4: 55842 12/26/2012 PRESCRIP TRANSMIT VIA ERX SY CPT-4: G8553 11/30/2012 ROUTINE VENIPUNCTURE CPT-4: 24195 11/25/2012 PRESCRIP TRANSMIT VIA ERX SY CPT-4: G8553 05/30/2012 PRESCRIP TRANSMIT VIA ERX SY CPT-4: G8553 04/14/2012 PRESCRIP TRANSMIT VIA ERX SY CPT-4: G8553 02/22/2012 ROUTINE VENIPUNCTURE CPT-4: 56293 01/13/2012 ROUTINE VENIPUNCTURE CPT-4: 74991 08/06/2011 ROUTINE VENIPUNCTURE CPT-4: 54151 06/25/2011 Vital Signs Date Vital 02/04/2017 Blood Pressure 1: 140/78 Code : 8480-6 BMI: 30.0 Code : 95450-9 Heart Rate 1 : 83 bpm Height: 6'2" SpO2: 97% Weight: 234 lbs 10/12/2016 Blood Pressure 1: 148/68 Code : 8480-6 BMI: 29.3 Code : 40075-6 Heart Rate 1 : 65 bpm Height: 6'2" SpO2: 100% Weight: 228 lbs 10/08/2016 Blood Pressure 1: 148/68 Code : 8480-6 BMI: 29.3 Code : 29146-0 Heart Rate 1 : 65 bpm Height: 6'2" SpO2: 100% Weight: 228 lbs 8 oz 09/10/2016 Blood Pressure 1: 142/68 Code : 8480-6 BMI: 29.3 Code : 32344-5 Heart Rate 1 : 75 bpm Height: 6'2" SpO2: 97% Weight: 228 lbs 08/24/2016 Blood Pressure 1: 156/86 Code : 8480-6 BMI: 28.1 Code : 90360-5 Heart Rate 1 : 72 bpm Height: 6'2" SpO2: 97% Weight: 219 lbs 08/06/2016 Blood Pressure 1: 172/90 Code : 8480-6 BMI: 29.0 Code : 83337-2 Heart Rate 1 : 68 bpm Height: 6'2" SpO2: 98% Temperature: 36.1 (C) / 96.9 (F) Weight: 226 lbs 07/30/2016 Blood Pressure 1: 138/86 Code : 8480-6 BMI: 29.7 Code : 86057-6 Heart Rate 1 : 80 bpm Height: 6'2" SpO2: 95% Temperature: 36.5 (C) / 97.7 (F) Weight: 231 lbs 06/22/2016 Blood Pressure 1: 145/82 Code : 8480-6 Heart Rate 1: 77 bpm Respiratory Rate : 18 bpm SpO2: 97% Weight: 231 lbs 04/27/2016 Blood Pressure 1: 158/76 Code : 8480-6 Blood Pressure 1: 182/78 Code: 8480-6 BMI: 30.4 Code: 00295-2 Heart Rate 1: 69 bpm Height: 6'2" SpO2: 97% Weight: 237 lbs 03/23/2016 Blood Pressure 1: 140/82 Code : 8480-6 BMI: 30.4 Code : 01033-2 Heart Rate 1 : 77 bpm Height: 6'2" SpO2: 93% Weight: 237 lbs 01/20/2016 Blood Pressure 1: 142/80 Code : 8480-6 BMI: 31.2 Code : 36030-3 Heart Rate 1 : 64 bpm Height: 6'2" SpO2: 93% Weight: 243 lbs 12/16/2015 Blood Pressure 1: 138/88 Code : 8480-6 BMI: 30.3 Code : 31902-0 Heart Rate 1 : 62 bpm Height: 6'2" SpO2: 97% Weight: 236 lbs 12/09/2015 Blood Pressure 1: 148/80 Code : 8480-6 Blood Pressure 1: 198/92 Code: 8480-6 Blood Pressure 1: 152/70 Code: 8480-6 BMI: 30.3 Code: 11423-3 Heart Rate 1: 84 bpm Height: 6'2" Weight: 236 lbs 11/25/2015 Blood Pressure 1: 160/80 Code : 8480-6 BMI: 30.2 Code : 79466-5 Heart Rate 1 : 68 bpm Height: 6'2" SpO2: 96% Weight: 235 lbs 09/02/2015 Blood Pressure 1: 122/64 Code : 8480-6 BMI: 30.2 Code : 52337-5 Heart Rate 1 : 86 bpm Height: 6'2" SpO2: 98% Weight: 235 lbs 08/05/2015 Blood Pressure 1: 130/70 Code : 8480-6 Heart Rate 1: 81 bpm SpO2: 97% Weight: 233 lbs 07/25/2015 Blood Pressure 1: 142/80 Code : 8480-6 BMI: 30.0 Code : 99010-8 Heart Rate 1 : 74 bpm Height: 6'2" SpO2: 95% Weight: 234 lbs 06/03/2015 Blood Pressure 1: 150/68 Code : 8480-6 BMI: 30.0 Code : 70191-1 Heart Rate 1 : 66 bpm Height: 6'2" SpO2: 96% Weight: 234 lbs 03/19/2015 Blood Pressure 1: 154/78 Code : 8480-6 BMI: 30.3 Code : 72178-4 Heart Rate 1 : 63 bpm Height: 6'2" SpO2: 96% Weight: 236 lbs 03/04/2015 Blood Pressure 1: 124/68 Code : 8480-6 BMI: 30.2 Code : 15903-1 Heart Rate 1 : 60 bpm Height: 6'2" SpO2: 97% Weight: 235 lbs 02/20/2015 Blood Pressure 1: 160/84 Code : 8480-6 BMI: 30.8 Code : 25906-2 Heart Rate 1 : 79 bpm Height: 6'2" SpO2: 96% Weight: 240 lbs 02/11/2015 Blood Pressure 1: 170/102 Code: 8480-6 BMI: 31.1 Code: 67756-8 Heart Rate 1: 81 bpm Height: 6'2" SpO2: 96% Weight: 242 lbs 01/28/2015 Blood Pressure 1: 174/80 Code : 8480-6 Blood Pressure 2: 168/74 Code: 8480-6 BMI: 31.2 Code: 94240-0 Heart Rate 1: 74 bpm Height: 6'2" SpO2: 97% Weight: 243 lbs 10/01/2014 Blood Pressure 1: 152/84 Code : 8480-6 BMI: 30.4 Code : 25968-0 Heart Rate 1 : 80 bpm Height: 6'2" SpO2: 96% Weight: 237 lbs 05/30/2014 Blood Pressure 1: 140/82 Code : 8480-6 BMI: 30.6 Code : 40690-5 Heart Rate 1 : 86 bpm Height: 6'2" Weight: 238 lbs 02/28/2014 Blood Pressure 1: 152/86 Code : 8480-6 BMI: 29.5 Code : 93413-6 Heart Rate 1 : 64 bpm Height: 6'2" Weight: 230 lbs 01/23/2014 Blood Pressure 1: 142/68 Code : 8480-6 BMI: 29.7 Code : 99954-0 Heart Rate 1 : 80 bpm Height: 6'2" Weight: 231 lbs 12/26/2013 Blood Pressure 1: 150/72 Code : 8480-6 BMI: 29.3 Code : 71964-1 Heart Rate 1 : 60 bpm Height: 6'2" Respiratory Rate: 16 bpm Weight: 228 lbs 8 oz 10/24/2013 Blood Pressure 1: 140/84 Code : 8480-6 Heart Rate 1: 60 bpm 10/17/2013 Blood Pressure 1: 166/72 Code : 8480-6 BMI: 28.8 Code : 27179-5 Heart Rate 1 : 68 bpm Height: 6'2" Weight: 224 lbs 07/24/2013 Blood Pressure 1: 112/64 Code : 8480-6 BMI: 29.1 Code : 94992-0 Heart Rate 1 : 80 bpm Height: 6'2" Weight: 227 lbs 04/24/2013 Blood Pressure 1: 130/74 Code : 8480-6 BMI: 28.9 Code : 24027-5 Heart Rate 1 : 76 bpm Height: 6'2" Weight: 225 lbs 6 oz 03/20/2013 Blood Pressure 1: 150/70 Code : 8480-6 BMI: 29.7 Code : 85408-0 Heart Rate 1 : 76 bpm Height: 6'2" Temperature: 37.0 (C) / 98.6 (F) Weight: 231 lbs 01/19/2013 Blood Pressure 1: 150/78 Code : 8480-6 BMI: 30.2 Code : 09148-1 Heart Rate 1 : 84 bpm Height: 6'2" Weight: 235 lbs 12/26/2012 Blood Pressure 1: 142/78 Code : 8480-6 BMI: 29.9 Code : 64113-6 Heart Rate 1 : 84 bpm Height: 6'2" Weight: 233 lbs 12/21/2012 Blood Pressure 1: 142/80 Code : 8480-6 BMI: 29.5 Code : 71971-4 Heart Rate 1 : 80 bpm Height: 6'2" Weight: 230 lbs 11/30/2012 Blood Pressure 1: 146/78 Code : 8480-6 BMI: 29.4 Code : 02952-4 Heart Rate 1 : 80 bpm Height: 6'2" Weight: 229 lbs 05/30/2012 Blood Pressure 1: 150/74 Code : 8480-6 BMI: 29.4 Code : 30682-9 Heart Rate 1 : 76 bpm Height: 6'2" Respiratory Rate: 16 bpm Weight: 229 lbs 04/26/2012 Blood Pressure 1: 124/64 Code : 8480-6 Heart Rate 1: 90 bpm SpO2: 98% Temperature: 36.7 (C) / 98.1 (F) Weight: 04/14/2012 Blood Pressure 1: 150/88 Code : 8480-6 Blood Pressure 2: 150/90 Code: 8480-6 BMI: 29.4 Code: 89902-6 Heart Rate 1: 72 bpm Height: 6'2" [...] Code : 8480-6 BMI: 28.9 Code : 00252-0 Heart Rate 1 : 64 bpm Height: 6'2" Weight: 225 lbs 08/05/2011 Blood Pressure 1: 142/72 Code : 8480-6 BMI: 29.3 Code : 41344-7 Heart Rate 1 : 80 bpm Height: 6'2" Weight: 228 lbs 07/01/2011 Blood Pressure 1: 136/70 Code : 8480-6 BMI: 29.2 Code : 16881-6 Heart Rate 1 : 68 bpm Height: [...] doing physical therapy for parkinson's disease at [facility] diabetes mellitus Alleviating Factors insulin 01/19/2013 None [...] data Encounters Encounter Performer Location Codes Date ([id number]) [id number] EST. PATIENT, LEVEL IV Diagnosis: Type 2 diabetes mellitus with hyperglycemia[ICD10: E11.65] Diagnosis: Essential (primary) hypertension[ICD10: I10] Diagnosis: Hypothyroidism, unspecified[ICD10: E03.9] Ginny Medley MD, [facility] CPT-4: 37262 02/04/2017 ([id number]) 79251 EST. PATIENT, LEVEL III Diagnosis: Essential (primary) hypertension[ICD10: I10] Diagnosis: Hypothyroidism, unspecified[ICD10: E03.9] Ginny Medley MD, [facility] CPT-4: 60869 10/08/2016 ([id number]) 03602 EST. PATIENT, LEVEL III Diagnosis: Allergic rhinitis due to pollen[ICD10: J30.1] Diagnosis: Hypothyroidism, unspecified[ICD10: E03.9] Ginny Medley MD, [facility] CPT-4: 92954 09/10/2016 ([id number]) 75434 EST. 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 CPT-4: 56301 08/24/2016 ([id number]) 37078 EST. PATIENT, LEVEL IV Diagnosis: Abdominal distension (gaseous)[ICD10: R14.0] Diagnosis: Cough[ICD10: R05] Diagnosis: Acute bronchitis, unspecified[ICD10: J20.9] Diagnosis: Essential (primary) hypertension[ICD10: I10] Ginny Medley MD, [facility] CPT-4: 97825 08/06/2016 ([id number]) 84392 EST. PATIENT, LEVEL III Diagnosis: Cough[ICD10: R05] Diagnosis: Acute upper respiratory infection, unspecified[ICD10: J06.9] Ginny Medley MD, [facility] CPT-4: 43233 07/30/2016 ([id number]) 97229 EST. PATIENT, LEVEL IV Diagnosis: Type 2 diabetes mellitus with hyperglycemia[ICD10: E11.65] Diagnosis: Essential (primary) hypertension[ICD10: I10] Diagnosis: Parkinson's disease[ICD10: G20] Diagnosis: Localized edema[ICD10: R60.0] Ginyn Medley MD, [facility] CPT-4: 81200 06/22/2016 ([id number]) 63341 EST. PATIENT, LEVEL IV Diagnosis: Essential (primary) hypertension[ICD10: I10] Diagnosis: Type 2 diabetes mellitus with hyperglycemia[ICD10: E11.65] Diagnosis: Hypo-osmolality and hyponatremia[ICD10: E87.1] Diagnosis: Hesitancy of micturition[ICD10: R39.11] Ginny Medley MD, [facility] CPT-4: 18576 04/27/2016 ([id number]) 20618 EST. PATIENT, LEVEL III Diagnosis: Essential (primary) hypertension[ICD10: I10] Diagnosis: Localized edema[ICD10: R60.0] Ginny Medley MD, [facility] CPT-4: 09319 03/23/2016 ([id number]) 18731 EST. PATIENT, LEVEL IV Diagnosis: Low back pain[ICD10: M54.5] Diagnosis: Hypo-osmolality and hyponatremia[ICD10: E87.1] Diagnosis: Essential (primary) hypertension[ICD10: I10] Diagnosis: Localized edema[ICD10: R60.0] Diagnosis: Type 2 diabetes mellitus with hyperglycemia[ICD10: E11.65] Ginny Medley MD, [facility] CPT-4: 55367 01/20/2016 ([id number]) 20039 EST. PATIENT, LEVEL III Diagnosis: Type 2 diabetes mellitus with hyperglycemia[ICD10: E11.65] Diagnosis: Essential (primary) hypertension[ICD10: I10] Diagnosis: Hypo-osmolality and hyponatremia[ICD10: E87.1] Ginny Medley MD, [facility] CPT-4: 31241 12/16/2015 [id number]) 26938 EST. PATIENT, LEVEL III Diagnosis: Essential (primary) hypertension[ICD10: I10] Diagnosis: Hypo-osmolality and hyponatremia[ICD10: E87.1] Ginny Medley MD, [facility] CPT-4: 42940 12/09/2015 [id number]) 78965 EST. PATIENT, LEVEL IV Diagnosis: Essential (primary) hypertension[ICD10: I10] Diagnosis: Type 2 diabetes mellitus with hyperglycemia[ICD10: E11.65] Diagnosis: Parkinson's disease[ICD10: G20] Ginny Medley MD, [facility] CPT-4: 85001 11/25/2015 68661 EST. PATIENT, LEVEL III Diagnosis: Localized edema[ICD10: R60.0] Diagnosis: Essential (primary) hypertension[ICD10: I10] Bonita Medley MD, [facility] CPT-4: 73221 09/02/2015 ([id number]) 40511 EST. PATIENT, LEVEL III Diagnosis: Localized edema[ICD10: R60.0] Ginny Medley MD, [facility] CPT-4: 91018 08/05/2015 ([id number]) 99672 EST. PATIENT, LEVEL III Diagnosis: Localized edema[ICD10: R60.0] Diagnosis: Unspecified open wound, right ankle, initial encounter[ICD10: S91.001A] Ginny Medley MD, [facility] CPT-4: 29497 ([id number]) 59823 EST. PATIENT, LEVEL IV Diagnosis: Essential (primary) hypertension[ICD10: I10] Diagnosis: Localized edema[ICD10: R60.0] Diagnosis: Low back pain[ICD10: M54.5] Diagnosis: Type 2 diabetes mellitus with hyperglycemia[ICD10: E11.65] Ginny Medley MD, [facility] CPT-4: 11161 06/03/2015 ([id number]) Miscellaneous no charge Diagnosis: Encounter for other specified aftercare[ICD10: Z51.89] Yoli Medley MD, [facility] CPT-4: 52853 03/20/2015 53485 EST. PATIENT, LEVEL IV Diagnosis: Cutaneous abscess of chest wall[ICD10: L02.213] Yoli Medley MD, [facility] CPT-4: 37087 03/19/2015 ([id number]) 31830 EST. PATIENT, LEVEL III Diagnosis: Edema, unspecified[ICD10: R60.9] Yoli Medley MD, [facility] CPT-4: 55250 03/04/2015 89552 EST. PATIENT, LEVEL III Diagnosis: Edema, unspecified[ICD10: R60.9] Diagnosis: Unspecified open wound, right ankle, initial encounter[ICD10: S91.001A] Yoli Medley MD [facility] CPT-4: 14848 07/2014 ([id number]) 93711 EST. PATIENT, LEVEL III Diagnosis: Edema, unspecified[ICD10: R60.9] Yoli Medley MD [facility] CPT-4: 76768 02/11/2015 ([id number]) 91510 EST. PATIENT, LEVEL IV Diagnosis: Type 2 diabetes mellitus with hyperglycemia[ICD10: E11.65] Diagnosis: Essential (primary) hypertension[ICD10: I10] Diagnosis: Edema, unspecified[ICD10: R60.9] Yoli Medley MD [facility] CPT-4: 58974 01/28/2015 ([id number]) 26525 EST. PATIENT, LEVEL IV Diagnosis: DIABETES TYPE II[ICD9: 250.00] Diagnosis: ESSENTIAL HYPERTENSION[ICD9: 401.9] Diagnosis: Parkinsons disease[ICD9: 332.0] Yoli Medley MD [facility] CPT- 4: 18887 10/01/2014 ([id number]) 33795 EST. PATIENT, LEVEL IV Diagnosis: ESSENTIAL HYPERTENSION[ICD9: 401.9] Diagnosis: DIABETES TYPE II[ICD9: 250.00] Diagnosis: Parkinsons disease[ICD9: 332.0] Yoli Medley MD [facility] CPT- 4: 35834 05/30/2014 ([id number]) 02386 EST. PATIENT, LEVEL IV Diagnosis: DIABETES TYPE II[ICD9: 250.00] Diagnosis: ESSENTIAL HYPERTENSION[ICD9: 401.9] Diagnosis: Back pain[ICD9: 724.5] Yoli Medley MD [facility] CPT-4: 41380 02/28/2014 ([id number]) 68220 EST. PATIENT, LEVEL III Diagnosis: ESOPHAGEAL REFLUX[ICD9: 530.81] Diagnosis: Esophageal ulcer[ICD9: 530.20] Yoli Medley MD [facility] CPT- 4: 37896 01/23/2014 ([id number]) 07180 EST. PATIENT, LEVEL IV Diagnosis: ESOPHAGEAL REFLUX[ICD9: 530.81] Diagnosis: ESSENTIAL HYPERTENSION[ICD9: 401.9] Yoli Medley MD [facility] CPT-4: 48905 12/26/2013 ([id number]) 92155 EST. PATIENT, LEVEL IV Diagnosis: Diabetes type 2, uncontrolled[ICD9: 250.02] Diagnosis: ESSENTIAL HYPERTENSION[ICD9: 401.9] Diagnosis: Back pain[ICD9: 724.5] Diagnosis: ELEVATED PSA[ICD9: 790.93] Yoli Medley MD, [facility] CPT- 4: 19473 10/17/2013 ([id number]) 64721 EST. PATIENT, LEVEL IV Diagnosis: DIABETES TYPE II[SNOMED: 336470794] Diagnosis: ESSENTIAL HYPERTENSION[SNOMED: 99314860] Diagnosis: Sleep apnea[ICD9: 780.57] Yoli Medley MD [facility] CPT-4: 24330 07/24/2013 ([id number]) 23724 EST. PATIENT, LEVEL IV Diagnosis: DIABETES TYPE II[SNOMED: 108242801] Diagnosis: ESSENTIAL HYPERTENSION[SNOMED: 85456630] Diagnosis: HYPERLIPIDEMIA[ICD9: 272.4] Yoli Medley MD [facility] CPT- 4: 98797 04/24/2013 ([id number]) 05370 EST. PATIENT, LEVEL III Diagnosis: DIABETES TYPE II[SNOMED: 600659552] Yoli Medley MD [facility] CPT-4: 71539 03/20/2013 ([id number]) 89789 EST. PATIENT, LEVEL III Diagnosis: DM W/O COMPLICATION TYPE II, UNCONTROLLED[SNOMED: 27092751] Yoli Medley MD [facility] CPT-4: 99139 01/19/2013 ([id number]) 12929 EST. PATIENT, LEVEL III Diagnosis: DM W/O COMPLICATION TYPE II, UNCONTROLLED[SNOMED: 05546831] Yoli Medley MD [facility] CPT-4: 60220 12/21/2012 ([id number]) 27500 EST. PATIENT, LEVEL IV Diagnosis: DM W/O COMPLICATION TYPE II, UNCONTROLLED[SNOMED: 94295620] Diagnosis: Parkinsons disease[ICD9: 332.0] Diagnosis: Back pain[ICD9: 724.5] Diagnosis: Gait instability[ICD9: 781.2] Yoli Medley MD, [facility] CPT- 4: 16844 11/30/2012 ([id number]) 41343 EST. PATIENT, LEVEL IV Diagnosis: ESSENTIAL HYPERTENSION[SNOMED: 00695986] Diagnosis: Abdominal pain[ICD9: 789.00] Diagnosis: DIABETES TYPE II[SNOMED: 664887440] Yoli Medley MD [facility] CPT-4: 60979 05/30/2012 ([id number]) 69351 EST. PATIENT, LEVEL III Diagnosis: Gastroenteritis[ICD9: 558.9] Ginny Medley MD [facility] CPT-4: 61321 04/26/2012 ([id number]) 72112 EST. PATIENT, LEVEL IV Diagnosis: ESSENTIAL HYPERTENSION[SNOMED: 74843027] Diagnosis: DIABETES TYPE II[SNOMED: 266538499] Diagnosis: Claw toe[ICD9: 735.5] Yoli Medley MD [facility] CPT-4: 02605 04/14/2012 ([id number]) 49060 EST. PATIENT, LEVEL III Diagnosis: Rash[ICD9: 782.1] Diagnosis: DERMATOPHYTOSIS OF FOOT[ICD9: 110.4] Ginny Medley MD [facility] CPT-4: 31289 02/22/2012 ([id number]) 06531 EST. PATIENT, LEVEL IV Diagnosis: DM W/O COMPLICATION TYPE II, UNCONTROLLED[SNOMED: 32018352] Diagnosis: ESSENTIAL HYPERTENSION[SNOMED: 47374527] Diagnosis: Constipation - functional[ICD9: 564.09] Diagnosis: Encounter for long-term (current) use of other high-risk medications[ ICD9: V58.69] Yoli Medley MD [facility] CPT-4: 02252 01/13/2012 ([id number]) 83723 EST. PATIENT, LEVEL IV Diagnosis: ESSENTIAL HYPERTENSION[SNOMED: 78304685] Diagnosis: DIABETES TYPE II[SNOMED: 193519234] Yoli Medley MD [facility] CPT-4: 01744 09/02/2011 41250 EST. PATIENT, LEVEL IV Diagnosis: LUMBAGO[ICD9: 724.2] Diagnosis: Sacroiliitis[ICD9: 720.2] Yoli Medley MD [facility] CPT-4: 37966 08/05/2011 ([id number]) 27753 EST. PATIENT, LEVEL IV Diagnosis: ESSENTIAL HYPERTENSION[SNOMED: 08045943] Diagnosis: DIABETES TYPE II[SNOMED: 063639826] Diagnosis: Breast mass in male[ICD9: 611.72] Diagnosis: Chronic hyponatremia[ICD9: 276.1] Yoli Medley MD, [facility] CPT-4: 40923 07/01/2011 Plan of Care Planned Activity Notes Codes Status Date Appointment: [phone] [facility] [place] ([facility] min) Moderate 04/28/2017 Appointment: Bonita Villa [facility]el[facility] [place] ([facility] min) Complex 04/16/2017 Appointment: Bonita Villa WPtel[facility] [place] ([facility] min) Complex 04/15/2017 Appointment: Ginny Pearl WPtel[phone] [place] (30 min) Complex 02/04/2017 Patient Education: Patient Medication Summary Completed 02/04/2017 Patient Education: Obesity Completed 02/04/2017 Patient Education: Patient Medication Summary Completed 02/01/2017 Appointment: Ginny Pearl [facility]el[phone] [place] (30 min) Complex 01/12/2017 Appointment: Ginny Pearl WPtel[phone] [place] (30 min) Complex 01/07/2017 Appointment: [facility] [phone] [facility] [place] MCR - Annual Wellness Visit 10/12/2016 Patient Education: Patient Medication Summary Completed 10/12/2016 Appointment: Ginny Pearl [facility]Ptel[phone] [place] (30 min) Complex 10/08/2016 Patient Education: Patient Medication Summary Completed 10/08/2016 Patient Education: Hypertension Completed 10/08/2016 Appointment: Ginny Pearl WPtel: [phone] [phone] (30 min) Complex 09/10/2016 Patient Education: Patient Medication Summary Completed 09/10/2016 Appointment: Ginny Pearl WPtel: [phone] (30 min) Complex 08/24/2016 Patient Education: Patient Medication Summary Completed 08/24/2016 Appointment: Ginny Pearl WPtel: [phone] [place] (10 min) Simple 08/06/2016 Patient Education: Patient Medication Summary Completed 08/06/2016 Appointment: Ginny Pearl WPtel: [phone] [place] (15 min) Moderate 07/30/2016 Patient Education: Patient Medication Summary Completed 07/30/2016 Patient Education: Patient Medication Summary Completed 07/13/2016 Patient Education: Patient Medication Summary Completed 07/10/2016 Appointment: Ginny Pearl WPtel: [address] [place] [phone] (30 min) Complex 06/22/2016 Patient Education: Patient Medication Summary Completed 06/22/2016 Appointment: Ginny Pearl WPtel: [address] [place], [place] [phone] (30 min) Complex 04/27/2016 Patient Education: Patient Medication Summary Completed 04/27/2016 Patient Education: Obesity Completed 04/27/2016 Appointment: Ginny Pearl WPtel: [address] [place], [place] [phone] [place] (30 min) Complex 03/23/2016 Patient Education: Patient Medication Summary Completed 03/23/2016 Patient Education: Obesity Completed 03/23/2016 Appointment: Ginny Pearl WPtel: [phone] [place] (30 min) Complex 01/20/2016 Patient Education: Patient Medication Summary Completed 01/20/2016 Patient Education: Obesity Completed 01/20/2016 Care Plan: Comp Metabolic Pending 01/20/2016 Care Plan: Cbc With Differential Pending 01/20/2016 Care Plan: %Hba1C LOINC : 82070-5 Pending 01/20/2016 Patient Education: Patient Medication Summary Completed 12/16/2015 Patient Education: Obesity Completed 12/16/2015 Patient Education: Hypertension Completed 12/16/2015 App[facility]ment: [facility] [phone] [phone] (30 min) Complex 12/09/2015 Patient Education: Patient Medication Summary Completed 12/09/2015 Patient Education: Obesity Completed 12/09/2015 App[facility]ment: [facility] [phone] [phone] (30 min) Complex 11/25/2015 Patient Education: Patient Medication Summary Completed 11/25/2015 Patient Education: Obesity Completed 11/25/2015 Patient Education: Patient Medication Summary Completed 09/02/2015 Patient Education: Hypertension Completed 09/02/2015 Appointment: (30 min) Complex 08/05/2015 Patient Education: Patient Medication Summary Completed 08/05/2015 Patient Education: Patient Medication Summary Completed 07/25/2015 Patient Education: Obesity Completed 07/25/2015 Appointment: Lab Draw 06/17/2015 Patient Education: Patient Medication Summary Completed 06/03/2015 Patient Education: Hypertension Completed 06/03/2015 Referral: Dangelo Ford Initiated 04/08/2015 Appointment: Nurse Visit 03/27/2015 Patient Education: Patient Medication Summary Completed 03/27/2015 Patient Education: Patient Medication Summary Completed 03/26/2015 Care Plan: Referral Order SNOMED-CT : [id number] Ordered 03/26/2015 Patient Education: Patient Medication Summary Completed 03/25/2015 Patient Education: Patient Medication Summary Completed 03/22/2015 Patient Education: Patient Medication Summary Completed 03/21/2015 Appointment: Nurse Visit 03/20/2015 Patient Education: Patient Medication Summary Completed 03/20/2015 Appointment: (15 min) Moderate 03/19/2015 Patient Education: Patient Medication Summary Completed 03/19/2015 Care Plan: C WOUN RTS Pending 03/19/2015 Appointment: Injection 03/08/2015 Patient Education: Patient Medication Summary Completed 03/08/2015 Appointment: (15 min) Moderate 03/04/2015 Patient Education: Patient Medication Summary Completed 03/04/2015 Appointment: (15 min) Moderate 02/20/2015 Patient Education: Patient Medication Summary Completed 02/20/2015 Care Plan: Referral Order SNOMED-CT : [id number] Ordered 02/20/2015 Appointment: Yoli Medley WPtel: [address] [place], [place] [phone] (15 min) Moderate 02/11/2015 Patient Education: Patient Medication Summary Completed 02/11/2015 Appointment: Yoli Medley WPtel: [address] [place], [place] [phone] (15 min) Moderate 01/28/2015 Patient Education: Patient Medication Summary Completed 01/28/2015 Patient Education: Hypertension Completed 01/28/2015 Appointment: Yoli Medley WPtel: [address] [place], [place] [phone] Follow up 10/01/2014 Patient Education: Patient Medication Summary Completed 10/01/2014 Patient Education: Hypertension Completed 10/01/2014 Appointment: Yoli Medley WPtel: [address] [place], [place] [phone] Follow up 05/30/2014 Patient Education: Patient Medication Summary Completed 05/30/2014 Patient Education: Hypertension Completed 05/30/2014 Patient Education: Patient Medication Summary Completed 02/28/2014 Patient Education: Hypertension Completed 02/28/2014 Appointment: Yoli Medley WPtel: [address] [place], [place] [phone] Follow up 01/23/2014 Patient Education: Patient Medication Summary Completed 01/23/2014 Appointment: Yoli Medley WPtel: [address] [place], [place] [phone] Follow up 12/26/2013 Patient Education: Patient Medication Summary Completed 12/26/2013 Patient Education: Hypertension Completed 12/26/2013 App[facility]ment: [phone] [phone] [facility] Procedure 10/24/2013 Patient Education: Patient Medication Summary Completed 10/24/2013 Appointment: Yoli Med[facility]el[facility] Follow up 10/17/2013 Patient Education: Patient Medication Summary Completed 10/17/2013 Patient Education: Hypertension Completed 10/17/2013 Appointment: Yoli Medley WPtel: [address] [place], [place] [phone] Follow up 07/24/2013 Patient Education: Patient Medication Summary Completed 07/24/2013 Patient Education: Hypertension Completed 07/24/2013 Appointment: Ginny Pearl WPtel: [address] [place], [place] [phone] Lab Draw 05/05/2013 Patient Education: Patient Medication Summary Completed 05/05/2013 Patient Education: Hypertension Completed 05/05/2013 Appointment: Yoli Medley WPtel: [address] [place], [place] [phone] Follow up 05/01/2013 Patient Education: Patient Medication Summary Completed 04/24/2013 Patient Education: Hypertension Completed 04/24/2013 Patient Education: Patient Medication Summary Completed 03/20/2013 Appointment: Yoli Medley WPtel: [address] [place], [place] [phone] Follow up 01/19/2013 Patient Education: Patient Medication Summary Completed 01/19/2013 Appointment: Ginny Pearl WPtel: [address] [place] [phone] Other 12/26/2012 Patient Education: Patient Medication Summary Completed 12/26/2012 Appointment: Yoli Medley WPtel: [address] [place], [place] [phone] [place] Follow up 12/21/2012 Patient Education: Patient Medication Summary Completed 12/21/2012 Appointment: Yoli Medley WPtel: [address] [place], [place] [phone] [place] Follow up 11/30/2012 Patient Education: Patient Medication Summary Completed 11/30/2012 Patient Education: Patient Medication Summary Completed 11/25/2012 Patient Education: Hypertension Completed 11/25/2012 Appointment: Yoli Medley WPtel: [address] [place] [phone] 6 wk f/u Follow up 05/30/2012 Patient Education: Patient Medication Summary Completed 05/30/2012 Patient Education: Hypertension Completed 05/30/2012 Patient Education: Patient Medication Summary Completed 04/26/2012 Appointment: Yoli Medley WPtel: [address] [place], [place] [phone] Follow up 04/14/2012 Patient Education: Patient Medication Summary Completed 04/14/2012 Patient Education: Hypertension Completed 04/14/2012 Appointment: Ginny Pearl WPtel: [address] [place], [place] [phone] Other 02/22/2012 Patient Education: Patient Medication Summary Completed 02/22/2012 Appointment: Yoli Medley WPtel: [address] [place], [place] [phone] Established Patient Preventative visit 01/13/2012 Patient Education: Patient Medication Summary Completed 01/13/2012 Patient Education: High Blood Pressure: Essential Hypertension Completed 2011 Appointment: Yoli Medley WPtel: [address] [place] [phone] Other 09/02/2011 Patient Education: Patient Medication Summary Completed 09/02/2011 Patient Education: High Blood Pressure: Essential Hypertension Completed 2011 Appointment: Ginny Pearl [facility]Ptel[phone] Lab Draw 08/06/2011 Patient Education: Patient Medication Summary Completed 08/06/2011 Appointment: Yoli Medley WPtel: [address] [place], [place] [phone] Other 08/05/2011 Patient Education: Patient Medication Summary Completed 08/05/2011 Patient Education: .Amazing charts Exercise for Sciatica Completed 08/05/2011 Patient Education: .Amazing charts- low back pain Completed 08/05/2011 Appointment: [phone] [place] Other 07/01/2011 Patient Education: Patient Medication Summary Completed 07/01/2011 Patient Education: High Blood Pressure: Essential Hypertension Completed 2011 App[facility]ment[phone] [facility] 06/25/2011 Patient Education: Patient Medication Summary Completed 06/25/2011 Patient Education: High Blood Pressure: Essential Hypertension Completed 2011 Referral: [facility] Referral Initiated Referral: Dangelo Ford Referral Initiated Instructions No Instructions
--- OUTSIDE RECORDS SUMMARY | 2017-11-07 18:03 | XMS REPORT | Continuity of Care Document ---
Author Author [facility] Organization [facility] Address Unknown Phone Unavailable Allergies Active Description Code Type Severity Reaction Onset Reported/Identified Relationship to Patient Clinical Status Yes Penicillins [id number] Drug Allergy Moderate HIVES 11/26/2015 Yes piroxicam [id number] Drug Allergy Moderate HIVES 11/26/2015 Yes sulfamethoxazole [id number] Drug Allergy Mild N/V 11/26/2015 Yes trimethoprim [id number] Drug Allergy Mild N/V 11/26/2015 Yes levofloxacin [id number] Drug Allergy Unknown N/A 11/26/2015 Medications There is no data. Problems Date Dx Coded Attending Type Code Diagnosis Diagnosed By 03/18/1416 SHAISTA POSADA Ot R60.0 LOCALIZED EDEMA 03/18/1499 ZULY CASIANO APRN Ot E11.622 TYPE 2 DIABETES MELLITUS WITH OTHER SKIN 03/18/1499 ZULY CASIANO APRN Ot I87.311 CHRONIC VENOUS HYPERTENSION W ULCER OF R 03/18/1499 ZULY CASIANO APRN Ot L97.211 NON-PRS CHRONIC ULCER OF RIGHT [place] 11/02/2010 Ot 250.40 DIAB W RENAL MANIFEST, TYPE II OR UNSPEC 11/02/2010 Ot 276.1 HYPOSMOLALITY 11/02/2010 Ot 401.9 HYPERTENSION NOS 11/02/2010 Ot 426.13 AV BLOCK- 2ND DEGREE NEC 11/02/2010 Ot 427.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 11/02/2010 Ot 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 IN OTH DIS 11/02/2010 Ot 593.9 RENAL URETERAL DIS NOS 2010 Ot 250.00 DIAB CANDICE WO COMPL, TYPE II OR UNSPEC TY 2010 Ot 401.9 HYPERTENSION NOS 2010 Ot 426.13 AV BLOCK- 2ND DEGREE NEC 2010 Ot 427.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 2010 Ot 780.79 OT MALAISE FATIGUE 2010 Ot V58.69 OTH MED,LT, CURRENT USE 11/09/2011 Ot 427.81 SINOATRIAL NODE DYSFUNCT 11/09/2011 Ot 786.09 RESPIRATORY ABNORM NEC 11/09/2011 Ot V45.01 CARDIAC PACEMAKER IN SITU 07/20/2012 Ot 575.11 CHRONIC CHOLECYSTITIS 12/13/2012 BRETT MINER, KAELYN áVzquez Ot 530.19 OTHER ESOPHAGITIS 12/13/2012 BRETT MINER, KAELYN Vázquez Ot 535.40 OTH SPECIFIED GASTRITIS,W/O MENTION OF H 04/03/2013 BRETT MINER, KAELYN Vázquez Ot 535.50 UNSP GASTRITIS GASTRODUODENITIS W/O ME 07/09/2013 SHAWN MINER FACC, ALI FACP CCDS Ot 250.00 DIAB CANDICE WO COMPL, TYPE II OR UNSPEC TY 07/09/2013 SHAWN MINER FACC, ALI FACP CCDS Ot 278.00 OBESITY, NOS 07/09/2013 SHAWN MINER FACC, ALI FACP CCDS Ot 401.9 HYPERTENSION NOS 07/09/2013 SHAWN MINER FACC, ALI FACP CCDS Ot 427.69 PREMATURE BEATS NEC 07/09/2013 SHAWN MINER FACC, ALI FACP CCDS Ot 427.81 SINOATRIAL NODE DYSFUNCT 07/09/2013 SHAWN MINER FACC, ALI FACP CCDS Ot 447.9 ARTERIAL DISEASE NOS 07/09/2013 SHAWN MINER FACC, ALI FACP CCDS Ot 593.9 RENAL URETERAL DIS NOS 07/09/2013 SHAWN MINER FACC, ALI FACP CCDS Ot 715.90 OSTEOARTHROS NOS-UNSPEC 07/09/2013 SHAWN MINER FACC, ALI FACP CCDS Ot V45.01 CARDIAC PACEMAKER IN SITU 12/05/2013 SANIA KUMAR MD Ot 038.9 SEPTICEMIA NOS 12/05/2013 SANIA KUMAR MD Ot 250.00 DIAB CANDICE WO COMPL, TYPE II OR UNSPEC TY 12/05/2013 SANIA KUMAR MD Ot 332.0 PARALYSIS AGITANS 12/05/2013 SANIA KUMAR MD Ot 401.9 HYPERTENSION NOS 12/05/2013 SANIA KUMAR MD Ot 486 PNEUMONIA, ORGANISM NOS 12/05/2013 SANIA KUMAR MD Ot 564.00 UNSPEC CONSTIPATION 12/05/2013 SANIA KUMAR MD Ot 789.00 ABDOMINAL PAIN, UNSPECIFIED SITE 12/05/2013 STACY MINER, SANIA Huang Ot 995.91 SEPSIS 12/05/2013 STACY MINER, SANIA Huang Ot V45.01 CARDIAC PACEMAKER IN SITU 12/05/2013 STACY MINER, SANIA Huang Ot V58.67 LONG-TERM (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 OF INSULIN 01/11/2014 BRADEN VALERI J ICT BUSINESS ANALYST Ot 327.23 OBSTRUCTIVE SLEEP APNEA (ADULT) (PEDIATR 09/04/2014 Ot 611.72 09/04/2014 Ot 427.81 09/04/2014 Ot 786.09 09/04/2014 Ot V45.01 09/04/2014 Ot 401.9 09/04/2014 Ot 427.1 09/04/2014 Ot 427.81 09/04/2014 Ot 401.9 09/04/2014 Ot 414.00 09/04/2014 Ot 789.01 09/04/2014 Ot 562.10 09/04/2014 Ot V12.72 09/04/2014 Ot V72.84 09/04/2014 Ot 575.8 09/04/2014 Ot V72.63 09/04/2014 Ot V74.8 09/04/2014 BRETT MINER, KAELYN Vázquez Ot V72.84 09/04/2014 BRETT MINER, KAELYN Vázquez Ot V72.84 09/04/2014 Ot 250.00 09/04/2014 Ot 278.00 09/04/2014 Ot 401.9 09/04/2014 Ot 427.69 09/04/2014 Ot 427.81 09/04/2014 Ot 447.9 09/04/2014 Ot 593.9 09/04/2014 Ot 715.90 09/04/2014 Ot V45.01 09/04/2014 BAIMA, TED L FIELD SALES MANAGER Ot 250.00 09/04/2014 BAIMA, TED L FIELD SALES MANAGER Ot 401.9 09/04/2014 BAIMA, TED L FIELD SALES MANAGER Ot 427.69 09/04/2014 BAIMA, TED L FIELD SALES MANAGER Ot 427.81 09/04/2014 BAIMA, TED L FIELD SALES MANAGER Ot 447.9 09/04/2014 BAIMA, TED L FIELD SALES MANAGER Ot 593.9 09/04/2014 BAIMA, TED L FIELD SALES MANAGER Ot 729.81 09/04/2014 BAIMA, TED L FIELD SALES MANAGER Ot V45.01 09/04/2014 BRETT MINER, KAELYN Vázquez Ot 250.00 09/04/2014 BRETT MINER, KAELYN Vázquez Ot 401.9 09/04/2014 BRETT MINER, KAELYN Vázquez Ot 530.3 09/04/2014 BRETT MINER, KAELYN Vázquez Ot V72.84 02/27/2015 Ot 611.72 02/27/2015 Ot 427.81 02/27/2015 Ot 786.09 02/27/2015 Ot V45.01 02/27/2015 Ot 401.9 02/27/2015 Ot 427.1 02/27/2015 Ot 427.81 02/27/2015 Ot 401.9 02/27/2015 Ot 414.00 02/27/2015 Ot 789.01 02/27/2015 Ot 562.10 02/27/2015 Ot V12.72 02/27/2015 Ot V72.84 02/27/2015 Ot 575.8 02/27/2015 Ot V72.63 02/27/2015 Ot V74.8 02/27/2015 BRETT MINER, KAELYN Vázquez Ot V72.84 02/27/2015 BRETT MINER, KAELYN Vázquez Ot V72.84 02/27/2015 Ot 250.00 02/27/2015 Ot 278.00 02/27/2015 Ot 401.9 02/27/2015 Ot 427.69 02/27/2015 Ot 427.81 02/27/2015 Ot 447.9 02/27/2015 Ot 593.9 02/27/2015 Ot 715.90 02/27/2015 Ot V45.01 02/27/2015 RYANNEMATED L FIELD SALES MANAGER Ot 250.00 02/27/2015 BAIMA, TED L FIELD SALES MANAGER Ot 401.9 02/27/2015 BAIMA, TED L FIELD SALES MANAGER Ot 427.69 02/27/2015 BAIMA, TED L FIELD SALES MANAGER Ot 427.81 02/27/2015 BAIMA, TED L FIELD SALES MANAGER Ot 447.9 02/27/2015 BAIMA, TED L FIELD SALES MANAGER Ot 593.9 02/27/2015 BAIMA, ETD L FIELD SALES MANAGER Ot 729.81 02/27/2015 SERGIO PÉREZHER L FIELD SALES MANAGER Ot V45.01 02/27/2015 BRETT MINER, KAELYN Vázquez Ot 250.00 02/27/2015 BRETT MINER, KAELYN Kathie Ot 401.9 02/27/2015 BRETT MINER, KAELYN Vázquez Ot 530.3 02/27/2015 BRETT MINER, KAELYN Kathie Ot V72.84 02/27/2015 ZULY CASIANO COTTON FACTOR Ot I87.2 02/27/2015 ZULY CASIANO COTTON FACTOR Ot I87.391 02/27/2015 ZULY CASIANO COTTON FACTOR Ot L97.211 03/07/2015 ZULY CASIANO COTTON FACTOR Ot I87.2 VENOUS INSUFFICIENCY (CHRONIC) (PERIPHER 03/07/2015 ZULY CASIANO COTTON FACTOR Ot I87.391 CHRONIC VENOUS HYPERTENSION W OTH COMP O 03/07/2015 ZULY CASIANO COTTON FACTOR Ot L97.211 NON-PRS CHRONIC ULCER OF RIGHT [place] 03/11/2015 ZULY CASIANO COTTON FACTOR Ot I87.2 04/03/2015 BRETT MINER, KAELYN Vázquez Ot E11.9 TYPE 2 DIABETES MELLITUS WITHOUT COMPLIC 04/03/2015 BRETT MINER, KAELYN Vázquez Ot L72.3 SEBACEOUS CYST 04/25/2015 BRETT MINER, KAELYN Vázquez Ot L72.3 04/25/2015 BRETT MINER, KAELYN Vázquez Ot Z01.810 04/25/2015 BRETT MINER, KAELYN Vázquez Ot Z11.2 05/27/2015 STACY MINER, SANIA Huang Ot L72.3 06/11/2015 JANICE GONZALES APRN Ot R06.00 DYSPNEA, UNSPECIFIED 06/11/2015 JANICE GONZALES APRN Ot R68.83 CHILLS (WITHOUT FEVER) 06/21/2015 STACY MINER, SANIA Huang Ot L72.3 SEBACEOUS CYST 08/06/2015 ZULY CASIANO COTTON FACTOR Ot E11.622 TYPE 2 DIABETES MELLITUS WITH OTHER SKIN 08/06/2015 ZULY CASIANO COTTON FACTOR Ot I87.311 CHRONIC VENOUS HYPERTENSION W ULCER OF R 08/06/2015 ZULY CASIANO COTTON FACTOR Ot L97.211 NON-PRS CHRONIC ULCER OF RIGHT [place] 09/18/2015 JANICE GNOZALES APRN Ot R06.00 DYSPNEA, UNSPECIFIED 09/18/2015 JANICE GONZALES COTTON FACTOR Ot R68.83 CHILLS (WITHOUT FEVER) 10/18/2015 GONZALES, PETER J COTTON FACTOR Ot R06.00 DYSPNEA, UNSPECIFIED 10/18/2015 JANICE GONZALES COTTON FACTOR Ot R68.83 CHILLS (WITHOUT FEVER) 11/26/2015 Ot 427.81 SINOATRIAL NODE DYSFUNCT 11/26/2015 Ot 786.09 RESPIRATORY ABNORM NEC 11/26/2015 Ot V45.01 CARDIAC PACEMAKER IN SITU 11/26/2015 Ot 250.00 DIAB CANDICE WO COMPL, TYPE II OR UNSPEC TY 11/26/2015 Ot 278.00 OBESITY, NOS 11/26/2015 Ot 401.9 HYPERTENSION NOS 11/26/2015 Ot 427.69 PREMATURE BEATS NEC 11/26/2015 Ot 427.81 SINOATRIAL NODE DYSFUNCT 11/26/2015 Ot 447.9 ARTERIAL DISEASE NOS 11/26/2015 Ot 593.9 RENAL URETERAL DIS NOS 11/26/2015 Ot 715.90 OSTEOARTHROS NOS-UNSPEC 11/26/2015 Ot V45.01 CARDIAC PACEMAKER IN SITU 11/26/2015 SANIA KUMAR MD Ot L72.3 SEBACEOUS CYST 11/27/2015 SANIA KUMAR MD Ot E11.9 TYPE 2 DIABETES MELLITUS WITHOUT COMPLIC 11/27/2015 SANIA KUMAR MD Ot E87.1 HYPO-OSMOLALITY AND HYPONATREMIA 11/27/2015 SANIA KUMAR MD, Ot G20 PARKINSON'S DISEASE 11/27/2015 SANIA KUMAR MD, Ot I10 ESSENTIAL (PRIMARY) HYPERTENSION 11/27/2015 SANIA KUMAR MD Ot I65.23 OCCLUSION AND STENOSIS OF BILATERAL [place] 11/27/2015 SANIA KUMAR MD Ot R41.0 DISORIENTATION, UNSPECIFIED 11/27/2015 SANIA KUMAR MD Ot R53.1 WEAKNESS 11/27/2015 SANIA KUMAR MD Ot T67.5XXA HEAT EXHAUSTION, UNSPECIFIED, INITIAL EN 11/27/2015 SANIA KUMAR MD Ot E11.9 TYPE 2 DIABETES MELLITUS WITHOUT COMPLIC 11/27/2015 SANIA KUMAR MD Ot E87.1 HYPO-OSMOLALITY AND HYPONATREMIA 11/27/2015 SANIA KUMAR MD, Ot G20 PARKINSON'S DISEASE 11/27/2015 SANIA KUMAR MD, Ot I10 ESSENTIAL (PRIMARY) HYPERTENSION 11/27/2015 SANIA KUMAR MD Ot R41.0 DISORIENTATION, UNSPECIFIED 11/27/2015 STACY MINER, SANIA Huang Ot R53.1 WEAKNESS 11/27/2015 STACY MINER, SANIA Huang Ot T67.5XXA HEAT EXHAUSTION, UNSPECIFIED, INITIAL EN 03/24/2016 Ot 611.72 LUMP OR MASS IN BREAST 03/24/2016 Ot 427.81 SINOATRIAL NODE DYSFUNCT 03/24/2016 Ot 786.09 RESPIRATORY ABNORM NEC 03/24/2016 Ot V45.01 CARDIAC PACEMAKER IN SITU 03/24/2016 Ot 401.9 HYPERTENSION NOS 03/24/2016 Ot 427.1 PAROX VENTRIC TACHYCARD 03/24/2016 Ot 427.81 SINOATRIAL NODE DYSFUNCT 03/24/2016 Ot 401.9 HYPERTENSION NOS 03/24/2016 Ot 414.00 CORON ATHEROSCLER NOS TYPE VESSEL, NATIV 03/24/2016 Ot 789.01 ABDOMINAL PAIN, RIGHT UPPER QUADRANT 03/24/2016 Ot 562.10 DIVERTICULOSIS COLON (W/O MENT OF HEMORR 03/24/2016 Ot V12.72 PERSONAL HISTORY OF COLONIC POLYPS 03/24/2016 Ot V72.84 EXAM PRE- OPERATIVE NOS 03/24/2016 Ot 575.8 DIS OF GALLBLADDER NEC 03/24/2016 Ot V72.63 PRE- PROCEDURAL LABORATORY EXAMINATION 03/24/2016 Ot V74.8 SCREEN- BACTERIAL DIS NEC 03/24/2016 BRETT MINER, KAELYN Vázquez Ot V72.84 EXAM PRE-OPERATIVE NOS 03/24/2016 BRETT MINER, KAELYN Vázquez Ot V72.84 EXAM PRE-OPERATIVE NOS 03/24/2016 Ot 250.00 DIAB CANDICE WO COMPL, TYPE II OR UNSPEC TY 03/24/2016 Ot 278.00 OBESITY, NOS 03/24/2016 Ot 401.9 HYPERTENSION NOS 03/24/2016 Ot 427.69 PREMATURE BEATS NEC 03/24/2016 Ot 427.81 SINOATRIAL NODE DYSFUNCT 03/24/2016 Ot 447.9 ARTERIAL DISEASE NOS 03/24/2016 Ot 593.9 RENAL URETERAL DIS NOS 03/24/2016 Ot 715.90 OSTEOARTHROS NOS-UNSPEC 03/24/2016 Ot V45.01 CARDIAC PACEMAKER IN SITU 03/24/2016 BAIMA, TED L FIELD SALES MANAGER Ot 250.00 DIAB CANDICE WO COMPL, TYPE II OR UNSPEC TY 03/24/2016 BAIMA, TED L FIELD SALES MANAGER Ot 401.9 HYPERTENSION NOS 03/24/2016 TED PÉREZ FIELD SALES MANAGER Ot 427.69 PREMATURE BEATS NEC 03/24/2016 TED PÉREZ L FIELD SALES MANAGER Ot 427.81 SINOATRIAL NODE DYSFUNCT 03/24/2016 TED PÉREZ L FIELD SALES MANAGER Ot 447.9 ARTERIAL DISEASE NOS 03/24/2016 TED PÉREZ L FIELD SALES MANAGER Ot 593.9 RENAL URETERAL DIS NOS 03/24/2016 RYANNETED GERARDO FIELD SALES MANAGER Ot 729.81 SWELLING OF LIMB 03/24/2016 TED PÉREZ FIELD SALES MANAGER Ot V45.01 CARDIAC PACEMAKER IN SITU 03/24/2016 BRETT MINER, KAELYN Vázquez Ot 250.00 DIAB CANDICE WO COMPL, TYPE II OR UNSPEC TY 03/24/2016 BRETT MINER, KAELYN Vázquez Ot 401.9 HYPERTENSION NOS 03/24/2016 BRETT MINER, KAELYN Vázquez Ot 530.3 ESOPHAGEAL STRICTURE 03/24/2016 BRETT MINER, KAELYN Vázquez Ot V72.84 EXAM PRE-OPERATIVE NOS 03/24/2016 ZULY CASIANO APRN Ot I87.2 VENOUS INSUFFICIENCY (CHRONIC) (PERIPHER 03/24/2016 BRETT MINER, KAELYN Vázquez Ot L72.3 SEBACEOUS CYST 03/24/2016 BRETT MINER, KAELYN Vázquez Ot Z01.810 ENCOUNTER FOR PREPROCEDURAL CARDIOVASCUL 03/24/2016 BRETT MINER, KAELYN Vázquez Ot Z11.2 ENCOUNTER FOR SCREENING FOR OTHER BACTER 03/24/2016 STACY MINER, SANIA Huang Ot L72.3 SEBACEOUS CYST 04/08/2016 SHAISTA POSADA Ot R60.0 LOCALIZED EDEMA 04/20/2016 ZULY CASIANO APRN Ot I87.2 VENOUS INSUFFICIENCY (CHRONIC) (PERIPHER 08/12/2016 SHAISTA POSADA Ot E04.1 NONTOXIC SINGLE THYROID NODULE 08/12/2016 SHAISTA POSADA Ot R94.6 ABNORMAL RESULTS OF THYROID FUNCTION [place] 08/13/2016 Ot 611.72 LUMP OR MASS IN BREAST 08/13/2016 Ot 427.81 SINOATRIAL NODE DYSFUNCT 08/13/2016 Ot 786.09 RESPIRATORY ABNORM NEC 08/13/2016 Ot V45.01 CARDIAC PACEMAKER IN SITU 08/13/2016 Ot 401.9 HYPERTENSION NOS 08/13/2016 Ot 427.1 PAROX VENTRIC TACHYCARD 08/13/2016 Ot 427.81 SINOATRIAL NODE DYSFUNCT 08/13/2016 Ot 401.9 HYPERTENSION NOS 08/13/2016 Ot 414.00 CORON ATHEROSCLER NOS TYPE VESSEL, NATIV 08/13/2016 Ot 789.01 ABDOMINAL PAIN, RIGHT UPPER QUADRANT 08/13/2016 Ot 562.10 DIVERTICULOSIS COLON (W/O MENT OF HEMORR 08/13/2016 Ot V12.72 PERSONAL HISTORY OF COLONIC POLYPS 08/13/2016 Ot V72.84 EXAM PRE- OPERATIVE NOS 08/13/2016 Ot 575.8 DIS OF GALLBLADDER NEC 08/13/2016 Ot V72.63 PRE- PROCEDURAL LABORATORY EXAMINATION 08/13/2016 Ot V74.8 SCREEN- BACTERIAL DIS NEC 08/13/2016 BRETT MINER, KAELYN Vázquez Ot V72.84 EXAM PRE-OPERATIVE NOS 08/13/2016 BRETT MINER, KAELYN Vázquez Ot V72.84 EXAM PRE-OPERATIVE NOS 08/13/2016 Ot 250.00 DIAB CANDICE WO COMPL, TYPE II OR UNSPEC TY 08/13/2016 Ot 278.00 OBESITY, NOS 08/13/2016 Ot 401.9 HYPERTENSION NOS 08/13/2016 Ot 427.69 PREMATURE BEATS NEC 08/13/2016 Ot 427.81 SINOATRIAL NODE DYSFUNCT 08/13/2016 Ot 447.9 ARTERIAL DISEASE NOS 08/13/2016 Ot 593.9 RENAL URETERAL DIS NOS 08/13/2016 Ot 715.90 OSTEOARTHROS NOS-UNSPEC 08/13/2016 Ot V45.01 CARDIAC PACEMAKER IN SITU 08/13/2016 BAIMA, TED L FIELD SALES MANAGER Ot 250.00 DIAB CANDICE WO COMPL, TYPE II OR UNSPEC TY 08/13/2016 BAIMA, TED L FIELD SALES MANAGER Ot 401.9 HYPERTENSION NOS 08/13/2016 BAIMA, TED L FIELD SALES MANAGER Ot 427.69 PREMATURE BEATS NEC 08/13/2016 BAIMA, TED L FIELD SALES MANAGER Ot 427.81 SINOATRIAL NODE DYSFUNCT 08/13/2016 BAIMA, TED L FIELD SALES MANAGER Ot 447.9 ARTERIAL DISEASE NOS 08/13/2016 BAIMA, TED L FIELD SALES MANAGER Ot 593.9 RENAL URETERAL DIS NOS 08/13/2016 BAIMA, TED L FIELD SALES MANAGER Ot 729.81 SWELLING OF LIMB 08/13/2016 TED PÉREZ Ot V45.01 CARDIAC PACEMAKER IN SITU 08/13/2016 KAELYN WEST MD Ot 250.00 DIAB CANDICE WO COMPL, TYPE II OR UNSPEC TY 08/13/2016 KAELYN WEST MD Ot 401.9 HYPERTENSION NOS 08/13/2016 KAELYN WEST MD Ot 530.3 ESOPHAGEAL STRICTURE 08/13/2016 KAELYN WEST MD Ot V72.84 EXAM PRE-OPERATIVE NOS 08/13/2016 ZULY CASIANO APRN Ot I87.2 VENOUS INSUFFICIENCY (CHRONIC) (PERIPHER 08/13/2016 KAELYN WEST MD Ot L72.3 SEBACEOUS CYST 08/13/2016 KAELYN WEST MD Ot Z01.810 ENCOUNTER FOR PREPROCEDURAL CARDIOVASCUL 08/13/2016 KAELYN WEST MD Ot Z11.2 ENCOUNTER FOR SCREENING FOR OTHER BACTER 08/13/2016 STACY MINER, SANIA Huang Ot L72.3 SEBACEOUS CYST 08/13/2016 SHAISTA POSADAP Ot E04.1 NONTOXIC SINGLE THYROID NODULE 08/13/2016 SHAISTA POSADAP Ot R94.6 ABNORMAL RESULTS OF THYROID FUNCTION [place] 08/20/2016 KAELYN WEST MD Ot E04.1 NONTOXIC SINGLE THYROID NODULE 08/20/2016 KAELYN WEST MD Ot Z01.818 ENCOUNTER FOR OTHER PREPROCEDURAL EXAMIN 08/20/2016 KAELYN WEST MD Ot Z11.2 ENCOUNTER FOR SCREENING FOR OTHER BACTER 08/21/2016 KEALYN WEST MD Ot E04.1 NONTOXIC SINGLE THYROID NODULE 08/21/2016 KAELYN WEST MD Ot Z01.818 ENCOUNTER FOR OTHER PREPROCEDURAL EXAMIN 08/21/2016 KAELYN WEST MD Ot Z11.2 ENCOUNTER FOR SCREENING FOR OTHER BACTER 08/27/2016 KAELYN WEST MD Ot E04.1 NONTOXIC SINGLE THYROID NODULE 08/27/2016 KAELYN WEST MD Ot E11.9 TYPE 2 DIABETES MELLITUS WITHOUT COMPLIC 08/27/2016 KAELYN WEST MD Ot H91.90 UNSPECIFIED HEARING LOSS, UNSPECIFIED EA 08/27/2016 KAELYN WEST MD Ot I10 ESSENTIAL (PRIMARY) HYPERTENSION 08/27/2016 KAELYN WEST MD M Ot I25.10 ATHSCL HEART DISEASE OF [place] CORONARY 08/27/2016 KAELYN WEST MD M Ot I48.0 PAROXYSMAL ATRIAL FIBRILLATION 08/27/2016 KAELYN WEST MD Ot Z79.4 INTERMEDIATE (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 OF INSULIN 08/27/2016 KAELYN WEST MD Ot Z79.899 OTHER INTERMEDIATE (CURRENT) DRUG THERAPY 08/27/2016 KAELYN WEST MD M Ot Z95.0 PRESENCE OF CARDIAC PACEMAKER 08/27/2016 KAELYN WEST MD M Ot E04.1 NONTOXIC SINGLE THYROID NODULE 08/27/2016 KAELYN WEST MD M Ot E11.9 TYPE 2 DIABETES MELLITUS WITHOUT COMPLIC 08/27/2016 KAELYN WEST MD M Ot H91.90 UNSPECIFIED HEARING LOSS, UNSPECIFIED EA 08/27/2016 KAELYN WEST MD Ot I10 ESSENTIAL (PRIMARY) HYPERTENSION 08/27/2016 KAELYN WEST MD Ot I25.10 ATHSCL HEART DISEASE OF [place] CORONARY 08/27/2016 KAELYN WEST MD Ot I48.0 PAROXYSMAL ATRIAL FIBRILLATION 08/27/2016 KAELYN WEST MD Ot Z79.4 INTERMEDIATE (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 OF INSULIN 08/27/2016 KAELYN WEST MD Ot Z79.899 OTHER INTERMEDIATE (CURRENT) DRUG THERAPY 08/27/2016 KAELYN WEST MD M Ot Z95.0 PRESENCE OF CARDIAC PACEMAKER 09/01/2016 KAELYN WEST MD M Ot E04.1 NONTOXIC SINGLE THYROID NODULE 09/01/2016 KAELYN WEST MD M Ot E11.9 TYPE 2 DIABETES MELLITUS WITHOUT COMPLIC 09/01/2016 KAELYN WEST MD M Ot H91.90 UNSPECIFIED HEARING LOSS, UNSPECIFIED EA 09/01/2016 KAELYN WEST MD M Ot I10 ESSENTIAL (PRIMARY) HYPERTENSION 09/01/2016 KAELYN WEST MD M Ot I25.10 ATHSCL HEART DISEASE OF [place] CORONARY 09/01/2016 KAELYN WEST MD Ot I48.0 PAROXYSMAL ATRIAL FIBRILLATION 09/01/2016 KAELYN WEST MD M Ot Z79.4 MATHEMATICIAN (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 OF INSULIN 09/01/2016 KAELYN WEST MD M Ot Z79.899 OTHER MATHEMATICIAN (CURRENT) DRUG THERAPY 09/01/2016 BRETT MINER, KAELYN Vázquez Ot Z95.0 PRESENCE OF CARDIAC PACEMAKER 09/02/2016 SHAISTA POSADA Ot E04.1 NONTOXIC SINGLE THYROID NODULE 09/02/2016 SHAISTA POSADA Ot R94.6 ABNORMAL RESULTS OF THYROID FUNCTION [place] 09/02/2016 SHAISTA POSADA Ot R05 COUGH 09/03/2016 KAELYN WEST MD Ot E04.1 NONTOXIC SINGLE THYROID NODULE 09/03/2016 KAELYN WEST MD Ot R53.83 OTHER FATIGUE 09/23/2016 STEVIE BEDOYA MD Ot I87.331 CHRONIC VENOUS HTN W ULCER AND INFLAMMAT 09/23/2016 STEVIE BEDOYA MD Ot L97.211 NON-PRS CHRONIC ULCER OF RIGHT [place]F [place] 09/23/2016 STEVIE BEDOYA MD Ot R21 RASH AND OTHER NONSPECIFIC SKIN ERUPTION 09/25/2016 STEVIE BEDOYA MD Ot I87.331 CHRONIC VENOUS HTN W ULCER AND INFLAMMAT 09/25/2016 STEVIE BEDOYA MD Ot L97.211 NON-PRS CHRONIC ULCER OF RIGHT [place] 09/25/2016 STEVIE BEDOYA MD, Ot R21 RASH AND OTHER NONSPECIFIC SKIN ERUPTION 10/22/2016 KAELYN WEST MD Ot E05.90 THYROTOXICOSIS, UNSP WITHOUT THYROTOXIC 10/22/2016 KAELYN WEST MD Ot Z98.890 OTHER SPECIFIED POSTPROCEDURAL STATES 12/08/2016 RIKI MINER, STEVIE Santana Ot G47.33 OBSTRUCTIVE SLEEP APNEA (ADULT) (PEDIATR 12/08/2016 Ot 611.72 LUMP OR MASS IN BREAST 12/08/2016 Ot 427.81 SINOATRIAL NODE DYSFUNCT 12/08/2016 Ot 786.09 RESPIRATORY ABNORM NEC 12/08/2016 Ot V45.01 CARDIAC PACEMAKER IN SITU 12/08/2016 Ot 401.9 HYPERTENSION NOS 12/08/2016 Ot 427.1 PAROX VENTRIC TACHYCARD 12/08/2016 Ot 427.81 SINOATRIAL NODE DYSFUNCT 12/08/2016 Ot 401.9 HYPERTENSION NOS 12/08/2016 Ot 414.00 CORON ATHEROSCLER NOS TYPE VESSEL, NATIV 12/08/2016 Ot 789.01 ABDOMINAL PAIN, RIGHT UPPER QUADRANT 12/08/2016 Ot 562.10 DIVERTICULOSIS COLON (W/O MENT OF HEMORR 12/08/2016 Ot V12.72 PERSONAL HISTORY OF COLONIC POLYPS 12/08/2016 Ot V72.84 EXAM PRE- OPERATIVE NOS 12/08/2016 Ot 575.8 DIS OF GALLBLADDER NEC 12/08/2016 Ot V72.63 PRE- PROCEDURAL LABORATORY EXAMINATION 12/08/2016 Ot V74.8 SCREEN- BACTERIAL DIS NEC 12/08/2016 BRETT MINER, KAELYN Vázquez Ot V72.84 EXAM PRE-OPERATIVE NOS 12/08/2016 BRETT MINER, KAELYN Vázquez Ot V72.84 EXAM PRE-OPERATIVE NOS 12/08/2016 Ot 250.00 DIAB CANDICE WO COMPL, TYPE II OR UNSPEC TY 12/08/2016 Ot 278.00 OBESITY, NOS 12/08/2016 Ot 401.9 HYPERTENSION NOS 12/08/2016 Ot 427.69 PREMATURE BEATS NEC 12/08/2016 Ot 427.81 SINOATRIAL NODE DYSFUNCT 12/08/2016 Ot 447.9 ARTERIAL DISEASE NOS 12/08/2016 Ot 593.9 RENAL URETERAL DIS NOS 12/08/2016 Ot 715.90 OSTEOARTHROS NOS-UNSPEC 12/08/2016 Ot V45.01 CARDIAC PACEMAKER IN SITU 12/08/2016 BAIMA, TED L FIELD SALES MANAGER Ot 250.00 DIAB CANDICE WO COMPL, TYPE II OR UNSPEC TY 12/08/2016 BAIMA, TED L FIELD SALES MANAGER Ot 401.9 HYPERTENSION NOS 12/08/2016 BAIMA, TED L FIELD SALES MANAGER Ot 427.69 PREMATURE BEATS NEC 12/08/2016 BAIMA, TED L FIELD SALES MANAGER Ot 427.81 SINOATRIAL NODE DYSFUNCT 12/08/2016 BAIMA, TED L FIELD SALES MANAGER Ot 447.9 ARTERIAL DISEASE NOS 12/08/2016 BAIMA, TED L FIELD SALES MANAGER Ot 593.9 RENAL URETERAL DIS NOS 12/08/2016 BAIMA, TED L FIELD SALES MANAGER Ot 729.81 SWELLING OF LIMB 12/08/2016 BAIMA, TED L FIELD SALES MANAGER Ot V45.01 CARDIAC PACEMAKER IN SITU 12/08/2016 BRETT MINER, KAELYN Vázquez Ot 250.00 DIAB CANDICE WO COMPL, TYPE II OR UNSPEC TY 12/08/2016 KAELYN WEST MD Ot 401.9 HYPERTENSION NOS 12/08/2016 KAELYN WEST MD Ot 530.3 ESOPHAGEAL STRICTURE 12/08/2016 BRETT MINER, KAELYN Vázquez Ot V72.84 EXAM PRE-OPERATIVE NOS 12/08/2016 ZULY CASIANO APRN Ot I87.2 VENOUS INSUFFICIENCY (CHRONIC) (PERIPHER 12/08/2016 BRETT MINER, KAELYN Vázquez Ot L72.3 SEBACEOUS CYST 12/08/2016 BRETT MINER, KAELYN Vázquez Ot Z01.810 ENCOUNTER FOR PREPROCEDURAL CARDIOVASCUL 12/08/2016 BRETT MINER, KAELYN Vázquez Ot Z11.2 ENCOUNTER FOR SCREENING FOR OTHER BACTER 12/08/2016 STACY MINER, SANIA Huang Ot L72.3 SEBACEOUS CYST 12/08/2016 SHAISTA POSADA Ot E04.1 NONTOXIC SINGLE THYROID NODULE 12/08/2016 SHAISTA POSADA Ot R94.6 ABNORMAL RESULTS OF THYROID FUNCTION [place] 12/08/2016 SHAISTA POSADA Ot R05 COUGH 12/08/2016 BRETT MINER, KAELYN Vázquez Ot E04.1 NONTOXIC SINGLE THYROID NODULE 12/08/2016 BRETT MINER, KAELYN Vázquez Ot R53.83 OTHER FATIGUE 12/08/2016 BRETT MINER, KAELYN Vázquez Ot E05.90 THYROTOXICOSIS, UNSP WITHOUT THYROTOXIC 12/08/2016 BRETT MINER, KAELYN Vázquez Ot Z98.890 OTHER SPECIFIED POSTPROCEDURAL STATES 12/08/2016 RIKI MINER, STEVIE Santana Ot G47.33 OBSTRUCTIVE SLEEP APNEA (ADULT) (PEDIATR 12/09/2016 RIKI MINER, STEVIE Santana Ot G47.33 OBSTRUCTIVE SLEEP APNEA (ADULT) (PEDIATR 12/15/2016 RIKI MINER, STEVIE Santana Ot G47.33 OBSTRUCTIVE SLEEP APNEA (ADULT) (PEDIATR 04/30/2017 TED PÉREZ FIELD SALES MANAGER Ot I25.10 ATHSCL HEART DISEASE OF [place] CORONARY 05/04/2017 TED PÉREZ FIELD SALES MANAGER Ot I25.10 ATHSCL HEART DISEASE OF [place] CORONARY 05/04/2017 TED PÉREZ FIELD SALES MANAGER Ot I73.9 PERIPHERAL VASCULAR DISEASE, UNSPECIFIED 05/10/2017 TED PÉREZ FIELD SALES MANAGER Ot I25.10 ATHSCL HEART DISEASE OF [place] CORONARY 05/10/2017 TED PÉREZ FIELD SALES MANAGER Ot I73.9 PERIPHERAL VASCULAR DISEASE, UNSPECIFIED 05/25/2017 TED PÉREZP Ot I25.10 ATHSCL HEART DISEASE OF [place] CORONARY 05/25/2017 TED PÉREZP Ot I73.9 PERIPHERAL VASCULAR DISEASE, UNSPECIFIED 06/21/2017 STEVIE BEDOYA MD, Ot 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 06/21/2017 STEVIE BEDOYA MD, Ot E11.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 06/21/2017 STEVIE BEDOYA MD Ot 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 [facility] 06/21/2017 STEVIE BEDOYA MD Ot I70.245 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 [facility] 06/21/2017 STEVIE BEDOYA MD Ot I87.332 CHRONIC VENOUS HTN W ULCER AND INFLAMMAT 06/21/2017 STEVIE BEDOYA MD, Ot I89.0 LYMPHEDEMA, NOT ELSEWHERE CLASSIFIED 06/21/2017 STEVIE BEDOYA MD Ot L97.222 NON-PRESSURE CHRONIC ULCER OF LEFT CALF 06/21/2017 STEVIE BEDOYA MD, Ot L97.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 06/23/2017 STEVIE BEDOYA MD, Ot 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 06/23/2017 STEVIE BEDOYA MD, Ot E11.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 06/23/2017 STEVIE BEDOYA MD Ot 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 [facility] 06/23/2017 STEVIE BEDOYA MD Ot I70.245 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 [facility] 06/23/2017 STEVIE BEDOYA MD Ot I87.332 CHRONIC VENOUS HTN W ULCER AND INFLAMMAT 06/23/2017 STEVIE BEDOYA MD Ot I89.0 LYMPHEDEMA, NOT ELSEWHERE CLASSIFIED 06/23/2017 STEVIE BEDOYA MD Ot L97.222 NON-PRESSURE CHRONIC ULCER OF LEFT [place]F 06/23/2017 STEVIE BEDOYA MD, Ot L97.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 06/24/2017 STEVIE BEDOYA MD, Ot 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 06/24/2017 STEVIE BEDOYA MD Ot E11.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 06/24/2017 STEVIE BEDOYA MD Ot 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 ULC 06/24/2017 STEVIE BEDOYA MD Ot I70.245 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 C 06/24/2017 STEVIE BEDOYA MD Ot I87.332 CHRONIC VENOUS HTN W ULCER AND INFLAMMAT 06/24/2017 STEVIE BEDOYA MD, Ot I89.0 LYMPHEDEMA, NOT ELSEWHERE CLASSIFIED 06/24/2017 STEVIE BEDOYA MD Ot L97.221 NON-PRS CHRONIC ULCER OF LEFT CALF LIMIT 06/24/2017 STEVIE BEDOYA MD Ot L97.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 07/02/2017 STEVIE BEDOYA MD, Ot I87.332 CHRONIC VENOUS HTN W ULCER AND INFLAMMAT 07/02/2017 STEVIE BEDOYA MD, Ot I89.0 LYMPHEDEMA, NOT ELSEWHERE CLASSIFIED 07/02/2017 STEVIE BEDOYA MD, Ot L97.221 NON-PRS CHRONIC ULCER OF LEFT CALF LIMIT 07/09/2017 STEVIE BEDOYA MD Ot 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 07/09/2017 STEVIE BEDOYA MD Ot E11.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 07/09/2017 STEVIE BEDOYA MD Ot 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 [facility] 07/09/2017 STEVIE BEDOYA MD Ot I70.245 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 [facility] 07/09/2017 STEVIE BEDOYA MD Ot I87.332 CHRONIC VENOUS HTN W ULCER AND INFLAMMAT 07/09/2017 STEVIE BEDOYA MD, Ot I89.0 LYMPHEDEMA, NOT ELSEWHERE CLASSIFIED 07/09/2017 STEVIE BEDOYA MD Ot L97.222 NON-PRESSURE CHRONIC ULCER OF LEFT CALF 07/09/2017 STEVIE BEDOYA MD, Ot L97.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 07/14/2017 STEVIE BEDOYA MD Ot 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 07/14/2017 STEVIE BEDOYA MD Ot E11.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 07/14/2017 STEVIE BEDOYA MD Ot 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 ULC 07/14/2017 STEVIE BEDOYA MD Ot I70.245 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 [facility] 07/14/2017 STEVIE BEDOYA MD, Ot I87.332 CHRONIC VENOUS HTN W ULCER AND INFLAMMAT 07/14/2017 STEVIE BEDOYA MD, Ot I89.0 LYMPHEDEMA, NOT ELSEWHERE CLASSIFIED 07/14/2017 STEVIE BEDOYA MD, Ot L97.221 NON-PRS CHRONIC ULCER OF LEFT CALF LIMIT 07/14/2017 STEVIE BEDOYA MD, Ot 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 Results Test Result Range Complete blood count (CBC) with automated white blood cell (WBC) differential - 11/26/15 15:45 Blood leukocytes automated count (number/volume) 8.7 10*3/uL 4.3-11.0 Blood erythrocytes automated count (number/volume) 4.84 10*6/uL 4.35-5.85 Venous blood hemoglobin measurement (mass/volume) 14.9 g/dL 13.3-17.7 Blood hematocrit (volume fraction) 44 % 40-54 Automated erythrocyte mean corpuscular volume 90 [foz_us] 80-99 Automated erythrocyte mean corpuscular hemoglobin (mass per erythrocyte) 31 pg 25-34 Automated erythrocyte mean corpuscular hemoglobin concentration measurement ( mass/volume) 34 g/dL 32-36 Automated erythrocyte distribution width ratio 13.3 % 10.0-14.5 Automated blood platelet count (count/volume) 148 10*3/uL 130-400 Automated blood platelet mean volume measurement 9.3 [foz_us] 7.4-10.4 Automated blood neutrophils/100 leukocytes 55 % 42-75 Automated blood lymphocytes/100 leukocytes 33 % 12-44 Blood monocytes/100 leukocytes 9 % 0-12 Automated blood eosinophils/100 leukocytes 2 % 0-10 Automated blood basophils/100 leukocytes 1 % 0-10 Blood neutrophils automated count (number/volume) 4.8 10*3 1.8-7.8 Blood lymphocytes automated count (number/volume) 2.9 10*3 1.0-4.0 Blood monocytes automated count (number/volume) 0.8 10*3 0.0-1.0 Automated eosinophil count 0.2 10*3/uL 0.0-0.3 Automated blood basophil count (count/volume) 0.0 10*3/uL 0.0-0.1 PT panel in platelet poor plasma by coagulation assay - 11/26/15 15:45 Prothrombin time (PT) in platelet poor plasma by coagulation assay 12.9 s 12.2-14.7 INR in platelet poor plasma or blood by coagulation assay 1.0 0.8-1.4 Activated partial thromboplastin time (aPTT) in platelet poor plasma bycoagulation assay - 11/26/15 15:45 Activated partial thromboplastin time (aPTT) in platelet poor plasma bycoagulation assay 25 s 24-35 Fibrin D-dimer FEU measurement in platelet poor plasma (mass/volume) - 15:45 Fibrin D-dimer FEU measurement in platelet poor plasma (mass/volume) 0.82 ug/mL 0.00-0.49 Comprehensive metabolic panel - 11/26/15 15:45 Serum or plasma sodium measurement (moles/volume) 128 mmol/L 135-145 Serum or plasma potassium measurement (moles/volume) 4.7 mmol/L 3.6-5.0 Serum or plasma chloride measurement (moles/volume) 98 mmol/L 98-107 Carbon dioxide 21 mmol/L 21-32 Serum or plasma anion gap determination (moles/volume) 9 mmol/L 5-14 Serum or plasma urea nitrogen measurement (mass/volume) 22 mg/dL 7-18 Serum or plasma creatinine measurement (mass/volume) 1.33 mg/dL 0.60-1.30 Serum or plasma urea nitrogen/creatinine mass ratio 17 NRG Serum or plasma creatinine measurement with calculation of estimated glomerular filtration rate 51 NRG Serum or plasma glucose measurement (mass/volume) 132 mg/dL 70-105 Serum or plasma calcium measurement (mass/volume) 9.0 mg/dL 8.5-10.1 Serum or plasma total bilirubin measurement (mass/volume) 0.7 mg/dL 0.1-1.0 Serum or plasma alkaline phosphatase measurement (enzymatic activity/volume) 62 U/L 40-136 Serum or plasma aspartate aminotransferase measurement (enzymatic activity/ volume) 14 U/L 5-34 Serum or plasma alanine aminotransferase measurement (enzymatic activity/volume ) 16 U/L 0-55 Serum or plasma protein measurement (mass/volume) 6.6 g/dL 6.4-8.2 Serum or plasma albumin measurement (mass/volume) 4.0 g/dL 3.2-4.5 Serum or plasma troponin i.cardiac measurement (mass/volume) - 11/26/15 15:45 Serum or plasma troponin i.cardiac measurement (mass/volume) < ng/ mL <0.30 Capillary blood glucose measurement by glucometer (mass/volume) - 11/26/15 16: 13 Capillary blood glucose measurement by glucometer (mass/volume) 146 mg/dL 70-110 Complete urinalysis with reflex to culture - 11/26/15 16:40 Urine color determination YELLOW NRG Urine clarity determination CLEAR NRG Urine pH measurement by test strip 7 5-9 Specific gravity of urine by test strip 1.005 1.016- 1.022 Urine protein assay by test strip, semi-quantitative NEGATIVE NEGATIVE Urine glucose detection by automated test strip NEGATIVE NEGATIVE Erythrocytes detection in urine sediment by light microscopy NEGATIVE NEGATIVE Urine ketones detection by automated test strip NEGATIVE NEGATIVE Urine nitrite detection by test strip NEGATIVE NEGATIVE Urine total bilirubin detection by test strip NEGATIVE NEGATIVE Urine urobilinogen measurement by automated test strip (mass/volume) NORMAL NORMAL Urine leukocyte esterase detection by dipstick NEGATIVE NEGATIVE Automated urine sediment erythrocyte count by microscopy (number/high power field) NONE NRG Automated urine sediment leukocyte count by microscopy (number/high power field ) NONE NRG Bacteria detection in urine sediment by light microscopy NONE NRG Squamous epithelial cells detection in urine sediment by light microscopy RARE NRG Crystals detection in urine sediment by light microscopy NONE NRG Casts detection in urine sediment by light microscopy NONE NRG Mucus detection in urine sediment by light microscopy NEGATIVE NRG Complete urinalysis with reflex to culture NO NRG Capillary blood glucose measurement by glucometer (mass/volume) - 11/26/15 20: 43 Capillary blood glucose measurement by glucometer (mass/volume) 133 mg/dL 70-110 Complete blood count (CBC) with automated white blood cell (WBC) differential - 11/27/15 04:20 Blood leukocytes automated count (number/volume) 6.5 10*3/uL 4.3-11.0 Blood erythrocytes automated count (number/volume) 4.91 10*6/uL 4.35-5.85 Venous blood hemoglobin measurement (mass/volume) 15.2 g/dL 13.3-17.7 Blood hematocrit (volume fraction) 44 % 40-54 Automated erythrocyte mean corpuscular volume 90 [foz_us] 80-99 Automated erythrocyte mean corpuscular hemoglobin (mass per erythrocyte) 31 pg 25-34 Automated erythrocyte mean corpuscular hemoglobin concentration measurement ( mass/volume) 34 g/dL 32-36 Automated erythrocyte distribution width ratio 13.2 % 10.0-14.5 Automated blood platelet count (count/volume) 150 10*3/uL 130-400 Automated blood platelet mean volume measurement 9.5 [foz_us] 7.4-10.4 Automated blood neutrophils/100 leukocytes 55 % 42-75 Automated blood lymphocytes/100 leukocytes 33 % 12-44 Blood monocytes/100 leukocytes 9 % 0-12 Automated blood eosinophils/100 leukocytes 3 % 0-10 Automated blood basophils/100 leukocytes 0 % 0-10 Blood neutrophils automated count (number/volume) 3.6 10*3 1.8-7.8 Blood lymphocytes automated count (number/volume) 2.2 10*3 1.0-4.0 Blood monocytes automated count (number/volume) 0.6 10*3 0.0-1.0 Automated eosinophil count 0.2 10*3/uL 0.0-0.3 Automated blood basophil count (count/volume) 0.0 10*3/uL 0.0-0.1 Whole blood basic metabolic panel - 11/27/15 04:20 Serum or plasma sodium measurement (moles/volume) 134 mmol/L 135-145 Serum or plasma potassium measurement (moles/volume) 4.5 mmol/L 3.6-5.0 Serum or plasma chloride measurement (moles/volume) 103 mmol/L 98-107 Carbon dioxide 19 mmol/L 21-32 Serum or plasma anion gap determination (moles/volume) 12 mmol/L 5-14 Serum or plasma urea nitrogen measurement (mass/volume) 22 mg/dL 7-18 Serum or plasma creatinine measurement (mass/volume) 1.44 mg/dL 0.60-1.30 Serum or plasma urea nitrogen/creatinine mass ratio 15 NRG Serum or plasma creatinine measurement with calculation of estimated glomerular filtration rate 47 NRG Serum or plasma glucose measurement (mass/volume) 117 mg/dL 70-105 Serum or plasma calcium measurement (mass/volume) 9.1 mg/dL 8.5-10.1 Capillary blood glucose measurement by glucometer (mass/volume) - 11/27/15 05: 39 Capillary blood glucose measurement by glucometer (mass/volume) 110 mg/dL 70-110 Capillary blood glucose measurement by glucometer (mass/volume) - 11/27/15 10: 58 Capillary blood glucose measurement by glucometer (mass/volume) 163 mg/dL 70-110 Automated blood complete blood count (hemogram) panel - 08/06/16 12:05 Blood leukocytes automated count (number/volume) 9.8 10*3/uL 4.3-11.0 Blood erythrocytes automated count (number/volume) 4.88 10*6/uL 4.35-5.85 Venous blood hemoglobin measurement (mass/volume) 15.1 g/dL 13.3-17.7 Blood hematocrit (volume fraction) 45 % 40-54 Automated erythrocyte mean corpuscular volume 92 [foz_us] 80-99 Automated erythrocyte mean corpuscular hemoglobin (mass per erythrocyte) 31 pg 25-34 Automated erythrocyte mean corpuscular hemoglobin concentration measurement ( mass/volume) 34 g/dL 32-36 Automated erythrocyte distribution width ratio 13.7 % 10.0-14.5 Automated blood platelet count (count/volume) 154 10*3/uL 130-400 Automated blood platelet mean volume measurement 8.9 [foz_us] 7.4-10.4 Comprehensive metabolic panel - 08/06/16 12:05 Serum or plasma sodium measurement (moles/volume) 135 mmol/L 135-145 Serum or plasma potassium measurement (moles/volume) 4.6 mmol/L 3.6-5.0 Serum or plasma chloride measurement (moles/volume) 102 mmol/L 98-107 Carbon dioxide 24 mmol/L 21-32 Serum or plasma anion gap determination (moles/volume) 9 mmol/L 5-14 Serum or plasma urea nitrogen measurement (mass/volume) 31 mg/dL 7-18 Serum or plasma creatinine measurement (mass/volume) 1.46 mg/dL 0.60-1.30 Serum or plasma urea nitrogen/creatinine mass ratio 21 NRG Serum or plasma creatinine measurement with calculation of estimated glomerular filtration rate 46 NRG Serum or plasma glucose measurement (mass/volume) 158 mg/dL 70-105 Serum or plasma calcium measurement (mass/volume) 9.0 mg/dL 8.5-10.1 Serum or plasma total bilirubin measurement (mass/volume) 0.8 mg/dL 0.1-1.0 Serum or plasma alkaline phosphatase measurement (enzymatic activity/volume) 78 U/L 40-136 Serum or plasma aspartate aminotransferase measurement (enzymatic activity/ volume) 16 U/L 5-34 Serum or plasma alanine aminotransferase measurement (enzymatic activity/volume ) 7 U/L 0-55 Serum or plasma protein measurement (mass/volume) 6.8 g/dL 6.4-8.2 Serum or plasma albumin measurement (mass/volume) 3.9 g/dL 3.2-4.5 Serum or plasma lithium measurement (moles/volume) - 08/06/16 12:05 BNP level 127.4 pg/mL <100.0 Sputum Gram stain - 08/06/16 12:15 GRAM STAIN SPUTUM AND MIXED BACTERIAL SPENCER NR Bacterial sputum culture - 08/06/16 12:15 FREE TEXT EXTERNAL SENSITIVITY REPORTED 08/09 10:51 NRG QUANTITY OF GROWTH Scant Growth NRG FREE TEXT ENTRY 2 PLUS NORMAL SPENCER NRG Bacterial sputum culture [id number] [facility] Bacterial susceptibility panel - 08/06/16 12:15 Gentamicin susceptibility test by minimum inhibitory concentration < = NRG Trimethoprim/sulfamethoxazole susceptibility test by minimum inhibitoryconcentration <= NRG Tobramycin susceptibility test by minimum inhibitory concentration < = NRG Cefazolin susceptibility test by minimum inhibitory concentration > = NRG Ceftriaxone susceptibility test by minimum inhibitory concentration <= NRG Ciprofloxacin susceptibility test by minimum inhibitory concentration <= NRG Meropenem susceptibility test by minimum inhibitory concentration < = NRG Aztreonam susceptibility test by minimum inhibitory concentration < = NRG Methicillin resistant Staphylococcus aureus (MRSA) screening culture - 09:32 Methicillin resistant Staphylococcus aureus (MRSA) screening culture NEG NRG Capillary blood glucose measurement by glucometer (mass/volume) - 08/26/16 09: 09 Capillary blood glucose measurement by glucometer (mass/volume) 215 mg/dL 70-110 Capillary blood glucose measurement by glucometer (mass/volume) - 08/26/16 20: 39 Capillary blood glucose measurement by glucometer (mass/volume) 214 mg/dL 70-110 Whole blood basic metabolic panel - 08/27/16 03:36 Serum or plasma sodium measurement (moles/volume) 133 mmol/L 135-145 Serum or plasma potassium measurement (moles/volume) 4.7 mmol/L 3.6-5.0 Serum or plasma chloride measurement (moles/volume) 99 mmol/L 98-107 Carbon dioxide 21 mmol/L 21-32 Serum or plasma anion gap determination (moles/volume) 13 mmol/L 5-14 Serum or plasma urea nitrogen measurement (mass/volume) 31 mg/dL 7-18 Serum or plasma creatinine measurement (mass/volume) 1.47 mg/dL 0.60-1.30 Serum or plasma urea nitrogen/creatinine mass ratio 21 NRG Serum or plasma creatinine measurement with calculation of estimated glomerular filtration rate 46 NRG Serum or plasma glucose measurement (mass/volume) 206 mg/dL 70-105 Serum or plasma calcium measurement (mass/volume) 8.2 mg/dL 8.5-10.1 Serum or plasma phosphate measurement (mass/volume) - 08/27/16 03:36 Serum or plasma phosphate measurement (mass/volume) 4.3 mg/dL 2.3-4.7 Magnesium - 08/27/16 03:36 Magnesium 1.7 mg/dL 1.8-2.4 Capillary blood glucose measurement by glucometer (mass/volume) - 08/27/16 12: 07 Capillary blood glucose measurement by glucometer (mass/volume) 177 mg/dL 70-110 Encounters ACCT No. Visit Date/Time Discharge Status Pt. Type Provider Facility Loc./Unit Complaint [id number] 06/30/2017 09:55:00 06/30/2017 23:59:59 CLS Outpatient STEVIE BEDOYA MD [id number] 06/23/2017 09:56:00 06/23/2017 23:59:59 CLS Outpatient STEVIE BEDOYA MD [facility] [id number] 06/16/2017 08:02:00 06/16/2017 23:59:59 CLS Outpatient STEVIE BEDOYA MD [facility] [id number] 05/04/2017 14:33:00 05/04/2017 23:59:59 CLS Outpatient TED PÉREZ [facility] RAD CAD [id number] 12/28/2016 16:34:00 12/28/2016 23:59:59 CLS Preadmit STEVIE LYN MD [facility] SLEEP DOMINGO [id number] 12/09/2016 14:12:00 12/09/2016 14:41:00 DIS Outpatient STEVIE LYN MD [facility] SLEEP DOMINGO,COMPLEX SLEEP APNEA [id number] 09/28/2016 13:51:00 09/28/2016 23:59:59 CLS Outpatient KAELYN WEST MD [facility] LAB TOTAL THROIDECTOMY/ HYPERTHYROIDISM [id number] 09/25/2016 09:43:00 09/25/2016 16:00:00 DIS Outpatient STEVIE BEDOYA MD [facility] WOUNDCARE [id number] 08/26/2016 08:55:00 08/27/2016 13:55:00 DIS Outpatient KAELYN WEST MD [facility] SDC THYROID NODULES [id number] 08/20/2016 08:53:00 08/20/2016 09:40:00 DIS Outpatient KAELYN WEST MD [facility] PREOP THYROID NODULES [id number] 08/13/2016 13:16:00 08/13/2016 23:59:59 CLS Outpatient KAELYN WEST MD [facility] LAB THYROID NODULES/ FATIGUE [id number] 08/10/2016 11:56:00 08/10/2016 23:59:59 CLS Outpatient SHAISTA POSADA [facility] RAD ABN THYROID FUNCTION STUDIES [id number] 08/06/2016 10:59:00 08/06/2016 23:59:59 CLS Outpatient SHAISTA POSADA [facility] RAD COUGH; ABD FULLNESS /PAIN [id number] 04/08/2016 09:46:00 04/08/2016 14:17:00 DIS Outpatient SHAISTA POSADA [facility] REHAB LOWER EXTREMITY EDEMA [id number] 11/26/2015 17:54:00 11/27/2015 13:25:00 DIS Inpatient SANIA KUMAR MD [facility] 4TH TIA,CONFUSION [id number] 08/06/2015 12:53:00 08/06/2015 15:00:00 DIS Outpatient ZULY CASIANO APRN [facility] WOUNDCARE [id number] 06/22/2015 00:08:00 06/22/2015 23:59:59 CLS Preadmit SANIA KUMAR MD [facility] SEBACEOUS CYST [id number] 03/24/2015 09:00:00 06/21/2015 00:01:00 DIS Outpatient SANIA KUMAR MD [facility] SEBACEOUS CYST [id number] 06/11/2015 11:13:00 06/11/2015 15:10:00 DIS Emergency JANICE GONZALES APRN [facility] ER CONGESTION/SOA DIZZINESS VISION DISTURBANCE [id number] 04/03/2015 06:00:00 04/03/2015 10:35:00 DIS Outpatient KAELYN WEST MD [facility] LEFT CHEST WALL SEBACEOUS CYST [id number] 04/02/2015 10:13:00 04/02/2015 23:59:59 CLS Outpatient KAELYN WEST MD [facility] PREOP LEFT CHEST WALL SEBACEOUS CYST [id number] 03/07/2015 13:54:00 03/07/2015 15:00:00 DIS Outpatient ZULY CASIANO APRN [facility] WOUNDCARE [id number] 02/27/2015 08:55:00 02/27/2015 23:59:59 CLS Outpatient ZULY CASIANO APRN [facility] RAD VENOUS INSUFFCIENCY WOUND [id number] 01/29/2014 11:04:00 01/29/2014 23:59:59 CLS Outpatient KAELYN WEST MD [facility] GERD [id number] 01/24/2014 07:24:00 01/24/2014 23:59:59 CLS Outpatient KAELYN WEST MD [facility] PREOP GERD [id number] 01/10/2014 19:52:00 01/11/2014 06:40:00 DIS Outpatient 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 [facility] SLEEP SLEEP APNEA [id number] 12/03/2013 17:55:00 12/05/2013 13:25:00 DIS Inpatient SANIA KUMAR MD [facility] 4TH PNEUMONIA BIBASILAR [id number] 10/03/2013 06:42:00 10/03/2013 23:59:59 CLS Outpatient TED PÉREZ [facility] RAD RT LEG SWELLING,PVC [id number] 05/08/2013 11:43:00 07/09/2013 00:01:00 DIS Outpatient SHAWN MINER FACC, ALKA FACMax CCDS [facility] LAB PVC, HYPERTENSION,DJD [id number] 04/03/2013 11:10:00 04/03/2013 16:45:00 DIS Outpatient KAELYN WEST MD [facility] FOLLOW UP FOR ULCERS [id number] 03/30/2013 07:20:00 03/30/2013 23:59:59 CLS Outpatient KAELYN WEST MD [facility] PREOP FOLLOW UP FOR ULCERS [id number] 12/13/2012 10:58:00 12/13/2012 15:00:00 DIS Outpatient KAELYN WEST MD [facility] UPPER GASTRIC PAIN [id number] 12/12/2012 07:10:00 12/12/2012 23:59:59 CLS Outpatient KAELYN WEST MD [facility] PREOP UPPER GASTRIC PAIN [id number] 09/04/2014 14:10:00 Document Registration [id number] 07/10/2013 00:00:00 Document Registration [id number] 07/20/2012 06:10:00 Document Registration [id number] 07/13/2012 08:36:00 Document Registration [id number] 06/20/2012 09:32:00 Document Registration [id number] 06/16/2012 07:24:00 Document Registration [id number] 06/01/2012 07:50:00 Document Registration [id number] 12/24/2011 07:06:00 Document Registration [id number] 11/10/2011 08:00:00 Document Registration [id number] 08/12/2011 13:15:00 Document Registration [id number] 07/07/2011 14:43:00 Document Registration [id number] 11/17/2010 12:30:00 Document Registration [id number] 10/30/2010 20:40:00 Document Registration [id number] 02/24/2017 12:00:00 02/24/2017 23:59:59 CLS Outpatient JOSE ALVAREZ [facility] [id number] 02/04/2017 15:19:28 02/04/2017 23:59:59 CLS Outpatient
[2017-11-07 18:29] LABS: BASOPHILS % (AUTO) 0 % (0-10); EOSINOPHILS # (AUTO) 0.2 10^3/uL (0.0-0.3); EOSINOPHILS % (AUTO) 3 % (0-10); HEMATOCRIT 42 % (40-54); HEMOGLOBIN 14.7 G/DL (13.3-17.7); LYMPHOCYTES # (AUTO) 2.7 X 10^3 (1.0-4.0); LYMPHOCYTES % (AUTO) 28 % (12-44); MEAN CORPUSCULAR HEMOGLOBIN 32 PG (25-34); MEAN CORPUSCULAR HGB CONC 35 G/DL (32-36); MEAN CORPUSCULAR VOLUME 91 FL (80-99); MEAN PLATELET VOLUME 9.4 FL (7.4-10.4); MONOCYTES # (AUTO) 0.9 X 10^3 (0.0-1.0); MONOCYTES % (AUTO) 10 % (0-12); NEUTROPHILS # (AUTO) 5.7 X 10^3 (1.8-7.8); NEUTROPHILS % (AUTO) 60 % (42-75); PLATELET COUNT 164 10^3/uL (130-400); RED BLOOD COUNT 4.58 10^6/uL (4.35-5.85); RED CELL DISTRIBUTION WIDTH 13.5 % (10.0-14.5); WHITE BLOOD COUNT 9.6 10^3/uL (4.3-11.0)
[2017-11-07 18:46] LABS: ALANINE AMINOTRANSFERASE 11 U/L (0-55); ALBUMIN 3.7 GM/DL (3.2-4.5); ALKALINE PHOSPHATASE 71 U/L (40-136); BILIRUBIN,TOTAL 0.4 MG/DL (0.1-1.0); BUN/CREATININE RATIO 20; CALCIUM 9.1 MG/DL (8.5-10.1); CARBON DIOXIDE 21 MMOL/L (21-32); CHLORIDE 101 MMOL/L (98-107); CREATINE KINASE 64 U/L (30-200); CREATININE SERUM 1.72 MG/DL (0.60-1.30); GFR ESTIMATED 38; GLUCOSE 143 MG/DL (70-105); POTASSIUM 4.1 MMOL/L (3.6-5.0); SODIUM 135 MMOL/L (135-145); TOTAL PROTEIN 6.2 GM/DL (6.4-8.2)
[2017-11-07 18:53] LABS: BILIRUBIN,URINE NEGATIVE (NEGATIVE); CLARITY,URINE CLEAR; COLOR,URINE YELLOW; GLUCOSE, URINE (UA) NEGATIVE (NEGATIVE); KETONES,URINE NEGATIVE (NEGATIVE); LEUKOCYTE ESTERASE ,URINE 1+ (NEGATIVE); NITRITE,URINE NEGATIVE (NEGATIVE); PH,URINE 6.5 (5-9); PROTEIN,URINE 1+ (NEGATIVE); UROBILINOGEN,URINE NORMAL (NORMAL)
--- NOTE | 2017-11-07 18:57 | Diagnostic Imaging Report ---
INDICATION: Cough. COMPARISON: 08/06/2016. EXAMINATION: Single view of the chest was obtained. FINDINGS: Clear lungs, bilaterally. The heart is prominent but stable. There is no pneumothorax. Pacemaker is stable. IMPRESSION: No acute cardiopulmonary findings. Dictated by: Dictated on workstation # [id number]
[2017-11-07 19:05] LABS: CREATINE KINASE MB 2.3 NG/ML (<6.6); TSH (THYROID ANALYZER) 4.44 UIU/ML (0.35-4.94)
[2017-11-07 19:12] LABS: BACTERIA,URINE NEGATIVE /HPF
[2017-11-07] MEDS ORDERED: NS IV 1000 ML 1,000 ML IV ONE (19:38)
--- NOTE | 2017-11-07 19:58 | Diagnostic Imaging Report ---
PROCEDURE: CT chest, abdomen, and pelvis without contrast. TECHNIQUE: Multiple contiguous axial images were obtained through the chest, abdomen, and pelvis without the use of intravenous contrast. INDICATION: Chest and abdominal pain, cough. COMPARISON: None. CT CHEST: Benign-appearing subcentimeter nodule seen in the left lung base. Otherwise, both lungs are clear. The heart is slightly enlarged with coronary artery disease. Pacemaker leads are present. There is no pleural or pericardial effusion. There is no lymphadenopathy. Central airways are normal. Osseous structures are age-appropriate. IMPRESSION: 1. Subcentimeter nodule in the left lung base, likely benign. Three month followup recommended. 2. Cardiac enlargement with coronary artery disease. CT ABDOMEN/PELVIS: The gallbladder is surgically absent. Solid organs, vascular structures and small bowel are unremarkable. There are a few diverticuli in the sigmoid colon without diverticulitis. There is no inflammatory process. The appendix is normal. Distal ureters and urinary bladder are normal. Prostate is not overtly enlarged. There is no hernia. Osseous structures are age-appropriate. IMPRESSION: 1. Surgically absent gallbladder. 2. Minimal diverticulosis of the sigmoid colon without diverticulitis. Dictated by: Dictated on workstation # [id number]
[2017-11-07] MEDS ORDERED: cefTRIAXone INJECTION 1,000 MG in NS (IVPB) 50 ML IV ONE (20:45)
[2017-11-07] MEDS ORDERED: CEFD300C3 PO (21:04)
--- NOTE | 2017-11-07 21:04 | ED General ---
General Chief Complaint: General Problems/Pain Stated Complaint: WEAK IN THE KNEES,TROUBLE BREATHING Nursing Triage Note: PT PRESENTS TO ER WITH COMPLAINT OF GENERALIZED MALAISE, FEELING WEAK IN THE KNEES, AND COUGHING UP STUFF. STATES SYMPTOMS STARTED AROUND 2PM. PT ALSO STATES THAT HE HAS A REDDENED AREA OF CONCERN ON HIS LEFT ARMPIT, THAT APPEARED THIS MORNING. 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 ) History of Present Illness Date Seen by Provider: Nov 07, 2017 Time Seen by Provider: 18:55 Initial Comments PT ARRIVES VIA POV FROM HOME MULTIPLE COMPLAINTS--SYMPTOMS BEGAN AT 1400 TODAY C/O GENERALIZED WEAKNESS C/O SHORTNESS OF BREATH WAS COMPLAINING OF CHEST/EPIGASTRIC PAIN, BUT THOSE SYMPTOMS NOT OCCURRING NOW. HAS HAD SUBJECTIVE FEVER PT DENIES PAIN ANYWHERE STATES HE HAD A "SOUR STOMACH" YESTERDAY--TOOK [place] AND THOSE SYMPTOMS WENT AWAY STATES HE HAS BEEN EATING AND DRINKING WELL NO URINARY SYMPTOMS NO NAUSEA/VOMITING/DIARRHEA/CONSTIPATION BLOOD SUGAR WAS 105 THIS AM. HAS NOT CHECKED IT ANY OTHER TIME TODAY PCP: DR KUMAR FRANCHISE BUSINESS CONSULTANT: DR. ESCOBAR Allergies and Home Medications Allergies Coded Allergies: Penicillins (Unverified Allergy, Intermediate, HIVES, 11/26/15) piroxicam (Unverified Allergy, Intermediate, HIVES, 11/26/15) levofloxacin (Unverified Allergy, Unknown, 11/26/15) SWOLLEN THROAT sulfamethoxazole (Unverified Adverse Reaction, Mild, N/V, 11/26/15) trimethoprim (Unverified Adverse Reaction, Mild, N/V, 11/26/15) Home Medications Ascorbate Calcium 500 Mg Tablet, 500 MG PO DAILY, (Reported) Ca Carb/D3/Mag Ox/Nursing Program Director/Zain/Zn 1 Each Tablet, 1 TAB PO DAILY, (Reported) Carbidopa/Levodopa 1 Each Tablet, 1 TAB PO BID, (Reported) Cefdinir 300 Mg Capsule, 300 MG PO BID Prescribed by: KHADIJAH LAW on 11/07/172103 Docusate Sodium 100 Mg Capsule, 100 MG PO DAILY@1800, (Reported) Furosemide 20 Mg Tablet, 20 MG PO MoWeFr, (Reported) Glipizide 10 Mg Tablet, 10 MG PO BID, (Reported) Insulin Glargine,Hum.rec.anlog 100 Unit/1 Ml Insuln.pen, 24 UNITS SQ HS, ( Reported) Levothyroxine Sodium 100 Mcg Tablet, 100 MCG PO DAILY Prescribed by: KAELYN WEST on 08/26/16 1340 Lisinopril 20 Mg Tablet, 20 MG PO BID, (Reported) Metformin HCl 500 Mg Tab.er.24h, 500 MG PO BID, (Reported) Tramadol HCl 50 Mg Tablet, 50 MG PO Q12H PRN for PAIN-MILD TO MODERATE Prescribed by: KAELYN WEST on 08/26/16 1337 Patient Home Medication List Home Medication List Reviewed: Yes Review of Systems Constitutional: see HPI, fever, malaise, weakness EENTM: no symptoms reported Respiratory: cough, short of breath Cardiovascular: see HPI, chest pain; No edema, No syncope Gastrointestinal: see HPI; No abdominal pain, No constipation, No diarrhea, No loss of appetite, No nausea, No vomiting Genitourinary: no symptoms reported; No decreased output Musculoskeletal: no symptoms reported Skin: no symptoms reported Psychiatric/Neurological: No Symptoms Reported; Denies Headache, Denies Numbness, Denies Paresthesia Hematologic/Lymphatic: No Symptoms Reported Immunological/Allergic: no symptoms reported Past Lxjidbe-Nhbnjw-Kfqkry Hx Patient Social History Alcohol Use: Denies Use Recreational Drug Use: No Smoking Status: Former Smoker Type Used: Cigarettes Former Smoker, Quit: August 20, 1949 2nd Hand Smoke Exposure: No Recent Foreign Travel: No Contact w/Someone Who Travel: No Recent Infectious Disease Expo: No Recent Hopitalizations: No Immunizations Up To Date Tetanus Booster (TDap): Unknown Date of Pneumonia Vaccine: Jan 24, 2014 Seasonal Allergies Seasonal Allergies: No Past Medical History Surgeries: Yes (BILAT CATARACTS; COLONOSCOPY WITH POLYPECTOMY) Eye Surgery, Gallbladder, Pacemaker, Thyroidectomy Respiratory: Yes (CPAP) Sleep Apnea Currently Using CPAP: Yes Cardiac: Yes (PACEMAKER FOR WENCKEBACH HEART BLOCK) Atrial Fibrillation, Chronic Edema/Swelling Neurological: Yes Dementia, Parkinson's Disease Reproductive Disorders: No Sexually Transmitted Disease: No HIV/AIDS: No Genitourinary: Yes Benign Prostatic Hyperpl Gastrointestinal: Yes Chronic Constipation, Diverticulosis, Polyps, Hiatal Hernia Musculoskeletal: Yes Arthritis, Chronic Back Pain Endocrine: Yes (THYROIDECTOMY FOR THYROID NODULES; TAKES INSULIN + ORAL MEDICATIONS) Diabetes, Insulin dep HEENT: Yes Cataract Hearing Impairment: Hard of Hearing, Bilateral Hearing Aide Cancer: No Psychosocial: No Integumentary: No Blood Disorders: No Family Medical History Cardiovascular disease 19 FATHER Completed stroke 19 MOTHER Coronary thrombosis 19 FATHER Diabetes mellitus 19 MOTHER G8 SISTER Hypertension 19 MOTHER G8 SISTER Myocardial infarction 19 FATHER No Family History of: Abdominal aortic aneurysm Searcy's disease Alcoholism Alzheimer's disease Aphasia Arthritis Asthma Cancer of mouth Dementia Drug abuse Parkinson's disease Prostate cancer Psychosocial problem Respiratory disorder Thyroid disease Heart Disease, Diabetes, Hypertension, Stroke Physical Exam Vital Signs Capillary Refill : Less Than 3 Seconds Height, Weight, BMI Height: 6'2.00" Weight: 240lbs. 2.0oz. 108.292656uz; 28.3 BMI Method:Stated General Appearance: Other (MILDLY LETHARGIC) HEENT: PERRL/EOMI Neck: Full Range of Motion, Normal Inspection, Non Tender, Supple; No Carotid Bruit, No JVD Respiratory: Normal Breath Sounds, No Accessory Muscle Use, No Respiratory Distress Cardiovascular: Systolic Murmur (1-2/6), Irregularly Irregular Gastrointestinal: Normal Bowel Sounds, No Organomegaly, No Pulsatile Mass, Soft , Tenderness (MILD EPIGASTRIC TENDERNESS) Back: No CVA Tenderness Extremity: Pedal Edema (2+ EDEMA WITH ALLYSSA HOSE ON ) Neurologic/Psychiatric: Alert, Oriented x3 (BUT POOR MEMPORY), No Motor/ Sensory Deficits, ophthalmic dispenser II-XII Norm as Tested Skin: Normal Color, Warm/Dry, Other (ERYTHEMA TO LEFT AXILLA) Focused Exam Lactate Level Lactic Acid Level Progress/Results/Core Measures Suspected Sepsis Recent Fever Within 48 Hours: No Infection Criteria Present: None New/Unexplained Altered Menta: No Sepsis Screen: No Definite Risk SIRS Temperature:98.2 Pulse: 80 Respiratory Rate: 18 Blood Pressure 117 /72 Mean: 87 Results/Orders Lab Results My Orders Vital Signs/I&O Capillary Refill : Less Than 3 Seconds Blood Pressure Mean: 87 Progress Note : Progress Note UNEVENTFUL ER STAY SYMPTOMS IMPROVED AT DISMISSAL ECG Initial ECG Impression Date: Nov 07, 2017 Initial ECG Impression Time: 18:07 Initial ECG Rate: 80 Initial ECG Rhythm: A Fib/Flutter (IVCD ) Initial ECG Comparisson: Unchanged Diagnostic Imaging Comments CXR--NO ACUTE PROCESS, PER RADIOLOGIST REPORT @ 1904 CT CHEST/ABDOMEN/PELVIS--NO ACUTE PROCESS, PER RADIOLOGIST REPORT @ 2033 Reviewed: Reviewed by Me Departure Impression Primary Impression: Generalized weakness Additional Impression: SUBJECTIVE FEVER Disposition: 01 HOME, SELF-CARE Condition: Improved Departure-Patient Inst. Referrals: SANIA KUMAR MD (PCP/Family) Primary Care Physician Patient Instructions: Generalized Weakness (DC) Add. Discharge Instructions: TYLENOL AND MOTRIN NEEDED FOR PAIN OR FEVER LOTS OF CLEAR LIQUIDS FOLLOW UP WITH DR. KUMAR IN 2-3 DAYS FOR FURTHER CARE All discharge instructions reviewed with patient and/or family. Voiced understanding. Scripts Cefdinir (Cefdinir) 300 Mg Capsule 300 MG PO BID for FOR INFECTION, #20 CAP Prov: KHADIJAH LAW DO 11/07/17 KHADIJAH LAW DO Nov 07, 2017 21:04
[2017-11-07 21:45] VITALS: BP 134/75
== END 2017-11-07 21:45 | disposition home or self-care (01) ==
LOC: EDUNIT# 16:38 → ER 16:40
DX: R53.1 Weakness (principal); R50.9 Fever, unspecified; G47.30 Sleep apnea, unspecified; F43.10 Post-traumatic stress disorder, unspecified; G20 Parkinson's disease; E11.9 Type 2 diabetes mellitus without complications; Z87.19 Personal history of other diseases of the digestive system; Z95.0 Presence of cardiac pacemaker; Z88.0 Allergy status to penicillin; Z82.49 Family history of ischemic heart disease and other diseases of the circulatory system; Z88.1 Allergy status to other antibiotic agents; Z88.2 Allergy status to sulfonamides; Z88.8 Allergy status to other drugs, medicaments and biological substances; Z79.4 Long term (current) use of insulin; Z87.891 Personal history of nicotine dependence
CPT/HCPCS: 36415; 71045; 71250; 74176; 80053; 81000; 82550; 82553; 82962; 83605; 83735; 83880; 84443; 84484; 85025; 85610; 85730; 87040; 87088; 93005; 93041; 96361; 96365

== ENCOUNTER 2018-07-25 06:52 | Emergency (ER) | payer MEDICARE, MEDICAID ==
[~2018-07-25] VITALS: Ht 182.9 cm; Wt 108.9 kg
[~2018-07-25 06:52] MED LIST changes: +CEFD300C3 PO; +FINA5TAB6; +LEVO175T5; +POTA10TA10
[2018-07-25] MEDS ORDERED: ONDANSETRON 4 MG/2 ML (SDV) Z0FRAN IVP ONE ×2 (07:00→08:15)
--- NOTE | 2018-07-25 07:07 | ED Neurological Problem ---
General Stated Complaint: VERTIGO Source: patient Exam Limitations: no limitations History of Present Illness Date Seen by Provider: Jul 25, 2018 Time Seen by Provider: 06:48 Initial Comments Patient presents to the ER with chief complaint of vertigo feeling the room is spinning. Any Movement rolling over or sitting up makes it worse. This started Wednesday lasted for about 2-3 hours and went away. It occurred again on Wednesday and then again this morning but has not gone away and he has not been able to stand up for the past for 5 hours. His could not help him up so she called 911. EMS says any kind of movement makes his vertigo worse. They attempted IVs but were unsuccessful patient denies any chest pain shortness of breath, falls. No coughs fevers chills. He is nauseated presently. Patient is a poor historian secondary to Parkinson's disease. Allergies and Home Medications Allergies Coded Allergies: Penicillins (Unverified Allergy, Intermediate, HIVES, 11/26/15) piroxicam (Unverified Allergy, Intermediate, HIVES, 11/26/15) levofloxacin (Unverified Allergy, Unknown, 11/26/15) SWOLLEN THROAT sulfamethoxazole (Unverified Adverse Reaction, Mild, N/V, 11/26/15) trimethoprim (Unverified Adverse Reaction, Mild, N/V, 11/26/15) Home Medications Ascorbate Calcium 500 Mg Tablet, 500 MG PO DAILY, (Reported) Ca Carb/D3/Mag Ox/Starch Dumper/Zain/Zn 1 Each Tablet, 1 TAB PO DAILY, (Reported) Carbidopa/Levodopa 1 Each Tablet, 1 TAB PO BID, (Reported) Docusate Sodium 100 Mg Capsule, 100 MG PO DAILY@1800, (Reported) Furosemide 20 Mg Tablet, 20 MG PO MoWeFr, (Reported) Glipizide 10 Mg Tablet, 10 MG PO BID, (Reported) Insulin Glargine,Hum.rec.anlog 100 Unit/1 Ml Insuln.pen, 24 UNITS SQ HS, ( Reported) Levothyroxine Sodium 100 Mcg Tablet, 100 MCG PO DAILY Prescribed by: KAELYN WEST on 08/26/16 1340 Lisinopril 20 Mg Tablet, 20 MG PO BID, (Reported) Metformin HCl 500 Mg Tab.er.24h, 500 MG PO BID, (Reported) Tramadol HCl 50 Mg Tablet, 50 MG PO Q12H PRN for PAIN-MILD TO MODERATE Prescribed by: KAELYN WEST on 08/26/16 8677 Patient Home Medication List Home Medication List Reviewed: Yes Review of Systems Review of Systems Constitutional: No chills, No fever, No malaise Eyes: Denies Foreign Body Sensation, Denies Pain Ears, Nose, Mouth, Throat: denies ear pain, denies ear discharge Respiratory: No cough, No short of breath Cardiovascular: No chest pain, No edema Gastrointestinal: No abdominal pain, No constipation, No diarrhea; nausea; No vomiting Genitourinary: No discharge, No dysuria Musculoskeletal: No back pain, No joint pain Psychiatric/Neurological: See HPI Past Bsuzpdm-Nlmbfh-Okelxi Hx Patient Social History Alcohol Use: Denies Use Recreational Drug Use: No Smoking Status: Former Smoker Type Used: Cigarettes Former Smoker, Quit: August 20, 1949 2nd Hand Smoke Exposure: No Recent Foreign Travel: No Contact w/Someone Who Travel: No Recent Hopitalizations: No Immunizations Up To Date Tetanus Booster (TDap): Unknown Date of Pneumonia Vaccine: Jan 24, 2014 Seasonal Allergies Seasonal Allergies: No Past Medical History Surgeries: Yes (BILAT CATARACTS; COLONOSCOPY WITH POLYPECTOMY) Eye Surgery, Gallbladder, Pacemaker, Thyroidectomy Respiratory: Yes (CPAP) Sleep Apnea Currently Using CPAP: Yes Cardiac: Yes (PACEMAKER FOR WENCKEBACH HEART BLOCK) Atrial Fibrillation, Chronic Edema/Swelling Neurological: Yes Dementia, Parkinson's Disease Reproductive Disorders: No Sexually Transmitted Disease: No HIV/AIDS: No Genitourinary: Yes Benign Prostatic Hyperpl Gastrointestinal: Yes Chronic Constipation, Diverticulosis, Polyps, Hiatal Hernia Musculoskeletal: Yes Arthritis, Chronic Back Pain Endocrine: Yes (THYROIDECTOMY FOR THYROID NODULES; TAKES INSULIN + ORAL MEDICATIONS) Diabetes, Insulin dep HEENT: Yes Cataract Hearing Impairment: Hard of Hearing, Bilateral Hearing Aide Cancer: No Psychosocial: No Integumentary: No Blood Disorders: No Family Medical History Cardiovascular disease 19 FATHER Completed stroke 19 MOTHER Coronary thrombosis 19 FATHER Diabetes mellitus 19 MOTHER G8 SISTER Hypertension 19 MOTHER G8 SISTER Myocardial infarction 19 FATHER No Family History of: Abdominal aortic aneurysm Acworth's disease Alcoholism Alzheimer's disease Aphasia Arthritis Asthma Cancer of mouth Dementia Drug abuse Parkinson's disease Prostate cancer Psychosocial problem Respiratory disorder Thyroid disease Heart Disease, Diabetes, Hypertension, Stroke Physical Exam Vital Signs Vital Signs - First Documented 07/25/18 06:52 Temp 98.0 Pulse 60 Resp 18 B/P (MAP) 175/115 (135) Pulse Ox 98 Capillary Refill : Height, Weight, BMI Height: 6'2.00" Weight: 240lbs. 2.0oz. 108.127227qv; 28.3 BMI Method:Stated General Appearance: WD/WN, mild distress HEENT: PERRL/EOMI, normal ENT inspection, TMs normal, pharynx normal Neck: non-tender, full range of motion, supple, normal inspection Respiratory: lungs clear, normal breath sounds, no respiratory distress, no accessory muscle use Cardiovascular: normal peripheral pulses, regular rate, rhythm Gastrointestinal: non tender, soft Neurologic/Psychiatric: heel stiffener II-XII nml as tested, no motor/sensory deficits, alert, normal mood/affect, oriented x 3, other (negative for nystagmus on lateral gaze but unable to complete test of skew or head impulse testing due to patient's nausea and vertigo.) Crainal Nerves: normal hearing, normal speech, PERRL Coordination/Gait: normal finger to nose Motor/Sensory: no motor deficit, no sensory deficit, no pronator drift Skin: normal color, warm/dry Stroke Onset of Symptoms Date of Onset of Symptoms: Jul 23, 2018 Time of Symptom Onset: 09:00 NIH Stroke Scale Assessment Select: Initial Level of Consciousness: 0=Alert (0), Level of Consciousness- Questions: 0=Answers both month/age (0), LOC Commands: 0=Performs both tasks (0) , Gaze: Normal (0), Visual Lopez: 0=No visual loss (0), Facial Movement ( Facial Paresis): 0=Normal symmetrical mnt (0), Motor Function-Arms Right: 0=No drift (0), Motor Function-Arms Left: 0=No drift (0), Motor Function-Legs Right: 0=No drift (0), Motor Function-Legs Left: 0=No drift (0), Limb Ataxia: 0=Absent (0), Sensory: 0=Normal:no loss (0), Best Language: 0=No aphasia (0), Dysarthria : 0=Normal (0), Extinction & Inattention: 0=No abnormality (0), Total: 0 Progress/Results/Core Measures Results/Orders Lab Results Laboratory Tests Test 07/25/18 07:06 07/25/18 07:29 Range/Units White Blood Count 7.7 4.3-11.0 10^3/uL Red Blood Count 4.82 4.35-5.85 10^6/uL Hemoglobin 14.9 13.3-17.7 G/DL Hematocrit 43 40-54 % Mean Corpuscular Volume 90 80-99 FL Mean Corpuscular Hemoglobin 31 25-34 PG Mean Corpuscular Hemoglobin Concent 34 32-36 G/DL Red Cell Distribution Width 14.8 H 10.0-14.5 % Platelet Count 166 130-400 10^3/uL Mean Platelet Volume 9.3 7.4-10.4 FL Neutrophils (%) (Auto) 55 42-75 % Lymphocytes (%) (Auto) 33 12-44 % Monocytes (%) (Auto) 10 0-12 % Eosinophils (%) (Auto) 3 0-10 % Basophils (%) (Auto) 0 0-10 % Neutrophils # (Auto) 4.2 1.8-7.8 X 10^3 Lymphocytes # (Auto) 2.5 1.0-4.0 X 10^3 Monocytes # (Auto) 0.8 0.0-1.0 X 10^3 Eosinophils # (Auto) 0.2 0.0-0.3 10^3/uL Basophils # (Auto) 0.0 0.0-0.1 10^3/uL Sodium Level 138 135-145 MMOL/L Potassium Level 4.1 3.6-5.0 MMOL/L Chloride Level 105 98-107 MMOL/L Carbon Dioxide Level 22 21-32 MMOL/L Anion Gap 11 5-14 MMOL/L Blood Urea Nitrogen 23 H 7-18 MG/DL Creatinine 1.45 H 0.60-1.30 MG/DL Estimat Glomerular Filtration Rate 46 BUN/Creatinine Ratio 16 Glucose Level 117 H 70-105 MG/DL Calcium Level 9.4 8.5-10.1 MG/DL Corrected Calcium 9.4 8.5-10.1 MG/DL Magnesium Level 2.1 1.8-2.4 MG/DL Total Bilirubin 0.8 0.1-1.0 MG/DL Aspartate Amino Transf (AST/SGOT) 14 5-34 U/L Alanine Aminotransferase (ALT/SGPT) 14 0-55 U/L Alkaline Phosphatase 61 40-136 U/L Total Protein 6.7 6.4-8.2 GM/DL Albumin 4.0 3.2-4.5 GM/DL Urine Color YELLOW Urine Clarity CLEAR Urine pH 8 5-9 Urine Specific [place] 1.010 L 1.016-1.022 Urine Protein NEGATIVE NEGATIVE Urine Glucose (UA) NEGATIVE NEGATIVE Urine Ketones NEGATIVE NEGATIVE Urine Nitrite NEGATIVE NEGATIVE Urine Bilirubin NEGATIVE NEGATIVE Urine Urobilinogen NORMAL NORMAL MG/DL Urine Leukocyte Esterase NEGATIVE NEGATIVE Urine RBC (Auto) NEGATIVE NEGATIVE Urine RBC NONE /HPF Urine WBC RARE /HPF Urine Squamous Epithelial Cells RARE /HPF Urine Crystals NONE /LPF Urine Bacteria NEGATIVE /HPF Urine Casts NONE /LPF Urine Mucus NEGATIVE /LPF Urine Culture Indicated NO My Orders Orders - CHELI NI Saline Lock/Iv-Start (07/25/18 06:58) Ondansetron Injection (Zofran Injectio (07/25/18 07:00) Cbc With Automated Diff (07/25/18 07:00) Comprehensive Metabolic Panel (07/25/18 07:00) Magnesium (07/25/18 07:00) Ct Head Wo (07/25/18 07:00) Continuous Ekg Monitoring (07/25/18 07:09) Ekg Tracing (07/25/18 07:09) Ua Culture If Indicated (07/25/18 07:48) Ondansetron Injection (Zofran Injectio (07/25/18 08:15) Diazepam Tablet (Valium Tablet) (07/25/18 08:15) Medications Given in ED Current Medications Medications Dose Ordered Sig/Tiffani Route Start Time Stop Time Status Last Admin Dose Admin Ondansetron HCl 4 mg ONCE ONCE IVP 07/25/18 07:00 07/25/18 07:01 DC 07/25/18 07:18 4 MG Ondansetron HCl 8 mg ONCE ONCE IVP 07/25/18 08:15 07/25/18 08:16 DC 07/25/18 07:56 8 MG Vital Signs/I&O 07/25/18 06:52 Temp 98.0 Pulse 60 Resp 18 B/P (MAP) 175/115 (135) Pulse Ox 98 Progress Progress Note #1: Time: 07:07 Progress Note The patient has an effective NIH score is 0 but he is unable to complete the HINTS testing 2/2 parkinsonism. Since his symptoms sound like classic vertigo only started on Wednesday a CT scan to rule out any Hemorrhage or that there was some ischemic stroke then we might be able to see it by now. Patient is hard of hearing and does have some difficulty following instructions to complete the testing. After we get a CT scan and some basic labs will do Johann-Hallpike maneuver significant isolate the side of his vertigo. ekg, labs to evaluate blood counts and electrolytes. The patient does use potassium chloride and Lasix. Progress Note #2: Time: 08:05 Progress Note No evidence of central pathology on examination or testing. We gave another 8 mg Zofran as in the middle of his [place]-Hallpike testing he started experience nausea with a small amount of yellow bile vomited on sitting up. Neither side elicited any nystagmus or vertigo however sitting up caused a strong, transient vertigo and nausea reflex. Progress Note #3: Time: 09:05 Progress Note We discussed the options with the patient and family and he would prefer to go home as opposed staying in the hospital. I also would prefer not to the Valium until after he gets home so we'll just provide him with a prescription. Nursing is to get him up and see how he does getting to a wheelchair. Initial ECG Impression Date: Jul 25, 2018 Initial ECG Impression Time: 07:17 Initial ECG Rate: 60 Initial ECG Rhythm: Normal Sinus Initial ECG Intervals: Normal Initial ECG Impression: Normal, Nonspecific Changes Initial ECG Comparisson: No Previous ECG Available Comment Artifact and PVCs. No significant ST elevation or depression. Diagnostic Imaging Diagonstic Imaging: CT (noncontrast) Plain Films/CT/US/NM/MRI: head Comments [facility], [place] NAME: CRISTHIAN MC [facility] REC#: [id number] PT STATUS: REG ER : 1935 PHYSICIAN: CHELI NI MD ADMIT DATE: 07/25/18/ER Draft Date of Exam:07/25/18 CT HEAD WO PROCEDURE: CT head without contrast. TECHNIQUE: Multiple contiguous axial images were obtained through the brain without the use of intravenous contrast. Auto Exposure Controls were utilized during the CT exam to meet ALARA standards for radiation dose reduction. DATE: July 25, 2018. COMPARISON: CT head November 26, 2015. INDICATION: 82-year-old male, vertigo. FINDINGS: There is proportional prominence of the ventricles and CSF spaces consistent with severe cerebral volume loss. The ventricles and cerebral spinal fluid spaces are of normal size and configuration for the patient's age. There is no mass effect or midline shift. There is no acute intracranial hemorrhage. There is no abnormal extra-axial fluid collection. The visualized portions of the paranasal sinuses, mastoid air cells and middle ears are well aerated. IMPRESSION: 1. No identified acute intracranial abnormality. 2. Severe cerebral volume loss. Dictated on workstation # [id number] Dict: 07/25/18 0746 Trans: 07/25/18 0749 CV [id number] Interpreted by: ISRAEL ADDISON MD Electronically signed by: Reviewed: Reviewed by Me Consults : Consulting Physician: STEVIE BEY MD Consults Notes ENT discussed case and he would recommend Valium twice a day or if we do decide to put the patient in the hospital he would have physical therapy start working on balance exercises. He would be happy to follow the patient up outpatient. Departure Impression Primary Impression: BPPV (benign paroxysmal positional vertigo) Qualified Codes: H81.10 - Benign paroxysmal vertigo, unspecified ear Disposition: 01 HOME, SELF-CARE Condition: Stable Departure-Patient Inst. Decision time for Depature: 09:06 Referrals: SANIA KUMAR MD (PCP) Primary Care Physician STEVIE BEY MD Patient Instructions: Vertigo (a Type of Dizziness) Add. Discharge Instructions: Drink plenty of fluids. Be careful when transitioning from sitting to standing or lying to standing after a long period to avoid falls. Take the Valium 2 mg twice a day as necessary to help with symptoms. Take Zofran 1 tablet under the tongue every 6 hours as needed for nausea. Call Dr. Bey's office and request an appointment to follow-up. Scripts Ondansetron (Ondansetron Odt) 4 Mg Tab.rapdis 4 MG PO Q6H PRN for NAUSEA/VOMITING, #20 TAB 0 Refills Prov: CHELI NI 07/25/18 Diazepam (Valium) 2 Mg Tablet 2 MG PO BID PRN for DIZZINESS, #20 TAB 0 Refills Prov: CHELI NI 07/25/18 CHELI NI Jul 25, 2018 07:07
[2018-07-25 07:14] LABS: BASOPHILS % (AUTO) 0 % (0-10); EOSINOPHILS # (AUTO) 0.2 10^3/uL (0.0-0.3); EOSINOPHILS % (AUTO) 3 % (0-10); HEMATOCRIT 43 % (40-54); HEMOGLOBIN 14.9 G/DL (13.3-17.7); LYMPHOCYTES # (AUTO) 2.5 X 10^3 (1.0-4.0); LYMPHOCYTES % (AUTO) 33 % (12-44); MEAN CORPUSCULAR HEMOGLOBIN 31 PG (25-34); MEAN CORPUSCULAR HGB CONC 34 G/DL (32-36); MEAN CORPUSCULAR VOLUME 90 FL (80-99); MEAN PLATELET VOLUME 9.3 FL (7.4-10.4); MONOCYTES # (AUTO) 0.8 X 10^3 (0.0-1.0); MONOCYTES % (AUTO) 10 % (0-12); NEUTROPHILS # (AUTO) 4.2 X 10^3 (1.8-7.8); NEUTROPHILS % (AUTO) 55 % (42-75); PLATELET COUNT 166 10^3/uL (130-400); RED CELL DISTRIBUTION WIDTH 14.8 % (10.0-14.5); WHITE BLOOD COUNT 7.7 10^3/uL (4.3-11.0)
--- NOTE | 2018-07-25 07:29 | NUR ---
TO CT PER CART
[2018-07-25 07:30] LABS: BILIRUBIN,TOTAL 0.8 MG/DL (0.1-1.0); CALCIUM 9.4 MG/DL (8.5-10.1); CREATININE SERUM 1.45 MG/DL (0.60-1.30); MAGNESIUM 2.1 MG/DL (1.8-2.4); POTASSIUM 4.1 MMOL/L (3.6-5.0); TOTAL PROTEIN 6.7 GM/DL (6.4-8.2)
--- OUTSIDE RECORDS SUMMARY | 2018-07-25 07:38 | XMS REPORT | CCD ---
Author Author [facility] Organization [facility] Address [address] [place] [address] Phone Care Team Providers Care Drafter Electronic Name Role Phone PP Unavailable CCM Unavailable Summary Purpose Interface Exchange Insurance Providers Payer name Policy type / Coverage type Covered constitution party ID Effective Begin Date Effective End Date WPS Medicare Part B Medicare Part B [id number] 2018 Unknown [facility] Nextance INSUR Medicare Part B [id number] Unknown [place] [facility] Medicare Part B [id number] 2018 Unknown Family history Runs in the family Diagnosis Age At Onset Diabetes Unknown Mother Diagnosis Age At Onset Diabetes Unknown Hypertension Unknown Alzheimer's Disease Unknown Stroke Unknown Father Diagnosis Age At Onset No Family Disease Entered N/A Grandmother Diagnosis Age At Onset Alzheimer's Disease Unknown Social History Social History Element Codes Description Effective Dates Number of children Unknown 4 2 in [place], 2 in [place] 02/17/[address]: 0646180 Former smoker Quit in 195202/17/2018 Alcohol history Unknown occasionally drinks alcohol 02/17/2018 Frequency of drinks SNOMED CT: 303785586 Drinks rarely 02/17/2018 Employment Unknown 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 Unknown Has never used illegal drugs 07/02/2011 Marital status Unknown 07/01/2011 Living arrangements Unknown House 07/01/2011 Allergies, Adverse Reactions, Alerts Substance Reaction Codes Entered Date Inactivated Date Status feldene rash RxNorm: 8356 02/17/2018 No Inactive Date Active levaquin Unknown 02/17/2018 No Inactive Date Active bactrim rash RxNorm: 357783 02/17/2018 No Inactive Date Active CEPHALOSPORINS Unknown 03/19/2015 No Inactive Date Active PENICILLINS hives, Unknown 02/17/2018 No Inactive Date Active SULFA (SULFONAMIDE ANTIBIOTICS) rash, Unknown 02/17/2018 No Inactive Date Active TRIMETHOPRIM rash Unknown 02/17/2018 No Inactive Date Active Past Medical History Illness Codes Condition Status Onset Date Resolved Date Atrophy of thyroid (acquired) ICD-9: 244.8 ICD-10: E03.4 Active 05/13/2017 Unknown Essential (primary) hypertension ICD-9: 401.9 ICD-10: I10 Active 04/26/2016 Unknown Parkinson's disease ICD-9: 332.0 ICD-10: G20 Active 11/24/2015 Unknown Slow transit constipation ICD-9: 564.01 ICD-10: K59.01 Active 05/04/2018 Unknown Type 2 diabetes mellitus with hyperglycemia ICD-9: 250.02 ICD-10: E11.65 Active 12/15/2015 Unknown Encounter for general adult medical examination with abnormal findings ICD-9: V70.0 ICD-10: Z00.01 Active 07/10/2016 Unknown Hypothyroidism, unspecified ICD-9: 244.9 ICD-10: E03.9 Active 07/10/2016 Unknown Type 2 diabetes mellitus with hyperglycemia ICD-9: 250.00 ICD-10: E11.65 Active 04/26/2016 Unknown Essential (primary) hypertension ICD-9: 401.1 ICD-10: I10 Active 05/13/2017 Unknown Other specified polyneuropathies ICD-9: 356.8 ICD-10: G62.89 Active 01/11/2018 Unknown 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 ICD-9: 250.60 ICD-10: E11.43 Active 01/11/2018 Unknown Localized edema ICD-9 : 782.3 ICD-10: R60.0 Active 03/22/2016 Unknown Type 2 diabetes mellitus without complications ICD-9: 250.00 ICD-10: E11.9 Active 05/13/2017 Unknown Rash and other nonspecific skin eruption ICD-9: 782.1 ICD-10: R21 Active 04/28/2017 Unknown Hypothryroidism Unknown Active 09/10/2016 Unknown Allergic [...] ICD-9: 794.5 ICD-10: R94.6 Active 07/13/2016 Unknown Hesitancy of micturition ICD-9: 788.64 ICD-10: R39.11 Active 04/26/2016 Unknown Hypo-osmolality and hyponatremia ICD-9: 276.1 ICD-10: E87.1 Active 04/26/2016 Unknown Low back pain ICD-9: 724.2 ICD-10: M54.5 Active 01/19/2016 Unknown Unspecified open wound, right ankle, initial [...] E03.4 05/13/2017 Active Essential (primary) hypertension ICD-9: 401.9 ICD-10: I10 04/26/2016 Active Parkinson's disease ICD-9: 332.0 ICD-10: G20 11/24/2015 Active Slow transit constipation ICD-9: 564.01 ICD-10: K59.01 05/04/2018 Active Type 2 diabetes mellitus with hyperglycemia ICD-9: 250.02 ICD-10: E11.65 12/15/2015 Active Encounter for general adult medical examination with abnormal findings ICD-9: V70.0 ICD-10: Z00.01 07/10/2016 Active Hypothyroidism, unspecified ICD-9: 244.9 ICD-10: E03.9 07/10/2016 Active Type 2 diabetes mellitus with hyperglycemia ICD-9: 250.00 ICD-10: E11.65 04/26/2016 Active Essential (primary) hypertension ICD-9: 401.1 ICD-10: I10 05/13/2017 Active Other specified polyneuropathies ICD-9: 356.8 ICD-10: G62.89 01/11/2018 Active 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 ICD-9: 250.60 ICD-10: E11.43 01/11/2018 Active Localized edema ICD-9 : 782.3 ICD-10: R60.0 03/22/2016 Active Type 2 diabetes mellitus without complications ICD-9: 250.00 ICD-10: E11.9 05/13/2017 Active Rash and other nonspecific skin eruption ICD-9: 782.1 ICD-10: R21 04/28/2017 Active Hypothryroidism Unknown 09/10/2016 Active Allergic rhinitis [...] studies ICD-9: 794.5 ICD-10: R94.6 07/13/2016 Active Hesitancy of micturition ICD-9: 788.64 ICD-10: R39.11 04/26/2016 Active Hypo-osmolality and hyponatremia ICD-9: 276.1 ICD-10: E87.1 04/26/2016 Active Low back pain ICD-9: 724.2 ICD-10: M54.5 01/19/2016 Active Unspecified open wound, right ankle, initial [...] Start Date Stop Date Status Fill Instructions Sinemet 25 mg-100 mg tablet RxNorm: 036118 Tablet(s) TAKE ONE TABLET BY MOUTH TWICE DAILY IN THE MORNING AND AT SUPPER 07/12/2018 07/06/2019 Active lisinopril 20 mg tablet RxNorm: 831322 TAKE 1 TABLET TWICE A DAY 07/11/2018 07/05/2019 Active Basagllobito Silver U-100 Insulin 100 unit/mL (3 mL) subcutaneous RxNorm: 3001751 24 Unit(s) SQ daily 24 Unit(s) SQ daily 06/16/2018 06/10/2019 Active glipizide 10 mg tablet RxNorm: 836119 1 Tablet(s) PO BID 201805/25/2019 Active Senna-S 8.6 mg-50 mg tablet RxNorm: 169203 1 Tablet(s) PO daily and may dose up to twice a day if needed for constipation 05/04/2018 01/28/2019 Active Contour Next Test Strips RxNorm: 1 test Miscellaneous daily 07/27/2019 Active metformin ER 500 mg tablet,extended release 24 hr RxNorm: 568800 Tablet(s) TAKE ONE TABLET BY MOUTH TWICE DAILY 05/02/2018 04/26/2019 Active levothyroxine 175 mcg tablet RxNorm: 430245 Tablet(s) TAKE 1 TABLET BY MOUTH ONCE DAILY WED-WED, 1/2 TAB ON WEDNESDAY AND Wednesday03/02/2018 No Stop Date Active potassium chloride ER 10 mEq tablet,extended release(part/ cryst) RxNorm: 0269155 2 Tablet(s) PO daily x 3 days, then 1 pill three times a week when taking the lasix 02/01/2018 05/31/2018 Inactive finasteride 5 mg tablet RxNorm: 944211 1 Tablet(s) PO daily 07/30/2018 Active [SAVINGS FOR UNINSURED PATIENTS -- BIN:521471, PCN: ASPROD1, Group: [id number], ID# [id number], Process claim through [employer], for questions: . THIS IS NOT INSURANCE.] levothyroxine 175 mcg tablet RxNorm: 555834 TAKE 1 TABLET BY MOUTH ONCE DAILY 02/01/2018 03/01/2018 Inactive Basaglar KwikPen U-100 Insulin 100 unit/mL (3 mL) subcutaneous RxNorm: 0038197 24 Unit(s) SQ daily 12/29/201706/15 Inactive Lasix 20 mg tablet RxNorm: 612419 TAKE 1 TABLET ONCE DAILY FOR 1 WEEK AND THEN 1 TABLET EVERY 3 DAYS THEREAFTER 12/06/2017 09/01/2018 Active clotrimazole 1 % topical cream RxNorm: 622315 1 Application TOP BID to feet 09/16/2017 No Stop Date Active levothyroxine 175 mcg tablet RxNorm: 813818 TAKE ONE TABLET BY MOUTH ONCE DAILY 08/03/2017 01/31/2018 Inactive glipizide 10 mg tablet RxNorm: 323713 1 Tablet(s) PO BID 201705/30/2018 Inactive metformin ER 500 mg tablet,extended release 24 hr RxNorm: 198865 Tablet(s) TAKE ONE TABLET BY MOUTH TWICE DAILY 05/13/2017 05/01/2018 Inactive Basaglar KwikPen U-100 Insulin 100 unit/mL (3 mL) subcutaneous RxNorm: 8313089 24 Unit(s) SQ daily 05/13/201712/28 Inactive lisinopril 20 mg tablet RxNorm: 002936 Tablet(s) TAKE 1 TABLET BY MOUTH TWICE DAILY 05/13/2017 05/07/2018 Inactive finasteride 5 mg tablet RxNorm: 705631 1 Tablet(s) PO daily 11/08/2017 Inactive [SAVINGS FOR UNINSURED PATIENTS -- BIN:717334, PCN: ASPROD1, Group: [id number] , ID# [id number], Process claim through [facility], for questions: . THIS IS NOT INSURANCE.] levothyroxine 175 mcg tablet RxNorm: 584350 1 Tablet(s) PO daily 05/13/2017 02/16/2018 Inactive Sinemet 25 mg-100 mg tablet RxNorm: 448851 Tablet(s) TAKE ONE TABLET BY MOUTH TWICE DAILY IN THE MORNING AND AT SUPPER 05/13/2017 05/07/2018 Inactive Lasix 20 mg tablet RxNorm: 193393 Tablet(s) TAKE 1 TABLET BY MOUTH ONCE DAILY FOR 1 WEEK AND THEN TAKE 1 TABLET BY MOUTH EVERY 3 DAYS THEREAFTER 05/13/2017 07/27/2017 Inactive Basaglar KwikPen 100 unit/mL (3 mL) subcutaneous RxNorm: 0864809 24 Unit(s) SQ daily 05/07/2017 05/12/2017 Inactive Lasix 20 mg tablet RxNorm: 680546 2 Tablet(s) PO daily x 3 days, then 1 pill three times a week thereafter 04/28/2017 No Stop Date Active triamcinolone acetonide 0.025 % topical cream RxNorm: 0867506 1 Application TOP BID 04/28/2017 02/16/2018 Inactive clotrimazole 1 % topical cream RxNorm: 126950 1 Application TOP BID 04/28/2017 09/15/2017 Inactive potassium chloride ER 10 mEq tablet,extended release(part/ cryst) RxNorm: 7999305 2 Tablet(s) PO daily x 3 days, then 1 pill three times a week when taking the lasix 04/28/2017 08/25/2017 Inactive Lasix 20 mg tablet RxNorm: 958002 Tablet(s) TAKE 1 TABLET BY MOUTH ONCE DAILY FOR 1 WEEK AND THEN TAKE 1 TABLET BY MOUTH EVERY 3 DAYS THEREAFTER 04/22/2017 05/12/2017 Inactive Lantus Solostar 100 unit/mL (3 mL) subcutaneous insulin pen RxNorm: 232007 24 Unit(s) SQ daily INJECT 24 UNITS DAILY OR DIRECTED 201605/06/2017 Inactive 1 box of 5 pens Basaglar KwikPen 100 unit/mL (3 mL) subcutaneous RxNorm: 3473031 24 Unit(s) SQ daily 03/02/2017 05/06/2017 Inactive Basaglar KwikPen 100 unit/mL (3 mL) subcutaneous RxNorm: 0947798 24 Unit(s) SQ daily 03/02/2017 03/01/2017 Inactive levothyroxine 175 mcg tablet RxNorm: 563598 1 Tablet(s) PO daily 02/02/2017 05/12/2017 Inactive Sinemet 25 mg-100 mg tablet RxNorm: 955084 TAKE ONE TABLET BY MOUTH TWICE DAILY IN THE MORNING AND AT SUPPER 12/30/2016 Inactive metformin ER 500 mg tablet,extended release 24 hr RxNorm: 033437 Tablet(s) TAKE ONE TABLET BY MOUTH TWICE DAILY 11/10/2016 05/12/2017 Inactive lisinopril 20 mg tablet RxNorm: 427231 Tablet(s) TAKE 1 TABLET BY MOUTH TWICE DAILY 11/10/2016 05/12/2017 Inactive levothyroxine 150 mcg tablet RxNorm: 032675 1 Tablet(s) PO daily 11/05/2016 02/01/2017 Inactive PLEASE LET PATIENT KNOW WE ARE GIVING HIM 150MCG INSTEAD OF 100MCG SO HE JUST TAKES 1 TAB DAILY. THANKS! Lantus Solostar 100 unit/mL (3 mL) subcutaneous insulin pen RxNorm: 189300 24 Unit(s) SQ daily INJECT 24 UNITS DAILY OR DIRECTED 201603/01/2017 Inactive 1 box of 5 pens Lantus Solostar 100 unit/mL (3 mL) subcutaneous insulin pen RxNorm: 151025 24 Unit(s) SQ daily INJECT 24 UNITS DAILY OR DIRECTED 201610/06/2016 Inactive please call patient with the [facility] levothyroxine 100 mcg tablet RxNorm: 559256 1.5 Tablet(s) PO daily 10/05/2016 11/04/2016 Inactive metformin ER 500 mg tablet,extended release 24 hr RxNorm: 322854 Tablet(s) TAKE ONE TABLET BY MOUTH TWICE DAILY 09/29/2016 11/09/2016 Inactive prednisone 20 mg tablet RxNorm: 539203 1 Tablet(s) PO BID 08/0608/10/2016 Inactive Kenalog 40 mg/mL suspension for injection RxNorm: 9601157 1 Milliliter(s) Inj 07/30/2016 07/30/2016 Inactive doxycycline hyclate 100 mg tablet RxNorm: 257577 1 Tablet(s) PO BID 07/30/2016 08/05/2016 Inactive glipizide 10 mg tablet RxNorm: 585398 1 Tablet(s) PO BID 201605/12/2017 Inactive Sinemet 25 mg-100 mg tablet RxNorm: 274271 TABLET(S) TAKE 1 TABLET BY MOUTH TWICE A DAY IN THE MORNING AND AT SUPPER 05/11/2016 11/06/2016 Inactive Patient requests 90 days supply metformin ER 500 mg tablet,extended release 24 hr RxNorm: 728998 TAKE ONE TABLET BY MOUTH TWICE DAILY 05/04/20162016 Inactive lisinopril 20 mg tablet RxNorm: 990251 TAKE 1 TABLET BY MOUTH TWICE DAILY 04/14/2016 11/09/2016 Inactive Sinemet 25 mg-100 mg tablet RxNorm: 361862 1 Tablet(s) PO BID TAKE 1 TABLET BY MOUTH TWICE A DAY IN THE MORNING AND AT SUPPER 03/23/2016 02/16/2018 Inactive Lasix 20 mg tablet RxNorm: 697885 Tablet(s) TAKE 1 TABLET BY MOUTH ONCE DAILY FOR 1 WEEK AND THEN TAKE 1 TABLET BY MOUTH EVERY 3 DAYS THEREAFTER 03/23/2016 06/06/2016 Inactive Lantus Solostar 100 unit/mL (3 mL) subcutaneous insulin pen RxNorm: 170042 24 Unit(s) SQ daily INJECT 24 UNITS DAILY OR DIRECTED 201510/05/2016 Inactive please call patient with the [facility] hydrocodone 5 mg-acetaminophen 325 mg tablet RxNorm: 760749 1-2 Tablet(s) PO Q6- 8H 01/21/2016 02/16/2018 Inactive Kenalog 40 mg/mL suspension for injection RxNorm: 6352690 1 Milliliter(s) Inj 01/20/2016 01/20/2016 Inactive Sinemet 25 mg-100 mg tablet RxNorm: 176540 Tablet(s) TAKE 1 TABLET BY MOUTH TWICE A DAY IN THE MORNING AND AT SUPPER 11/29/2015 03/22/2016 Inactive Lantus Solostar 100 unit/mL (3 mL) subcutaneous insulin pen RxNorm: 008864 20 Unit(s) SQ daily INJECT 20 UNITS DAILY OR DIRECTED 201501/20/2016 Inactive please call patient with the [facility] Sinemet 25 mg-100 mg tablet RxNorm: 898301 Tablet(s) TAKE 1 TABLET BY MOUTH TWICE A DAY IN THE MORNING AND AT SUPPER 11/22/2015 11/28/2015 Inactive Lantus Solostar 100 unit/mL (3 mL) subcutaneous insulin pen RxNorm: 883611 Unit( s) INJECT 20 UNITS DAILY OR DIRECTED 11/22/2015 11/24/2015 Inactive Lantus Solostar 100 unit/mL (3 mL) subcutaneous insulin pen RxNorm: 332776 INJECT 20 UNITS DAILY OR DIRECTED 09/27/2015 11/21/2015 Inactive Lasix 20 mg tablet RxNorm: 277381 TAKE 1 TABLET BY MOUTH ONCE DAILY FOR 1 WEEK AND THEN TAKE 1 TABLET BY MOUTH EVERY 3 DAYS THEREAFTER 09/2512/10/2015 Inactive Lasix 20 mg tablet RxNorm: 699978 1 Tablet(s) PO daily 201509/25/2015 Inactive glipizide 10 mg tablet RxNorm: 867342 1 Tablet(s) BID TAKE 1 TABLET BY MOUTH DAILY. 06/25/2015 06/28/2016 Inactive metformin ER 500 mg tablet,extended release 24 hr RxNorm: 697903 1 Tablet(s) PO BID 04/01/2015 05/05/2016 Inactive lisinopril 20 mg tablet RxNorm: 106273 Tablet(s) TAKE 1 TABLET BY MOUTH TWICE DAILY. 03/25/2015 07/22/2015 Inactive metformin ER 500 mg tablet,extended release 24 hr RxNorm: 580476 1 Tablet(s) PO BID 03/25/2015 03/31/2015 Inactive doxycycline hyclate 100 mg capsule RxNorm: 8362891 1 Capsule(s) PO BID 03/19/2015 04/01/2015 Inactive Sinemet 25 mg-100 mg tablet RxNorm: 127346 TAKE 1 TABLET BY MOUTH TWICE A DAY IN THE MORNING AND AT SUPPER 03/05/201511/20 Inactive doxycycline hyclate 100 mg capsule RxNorm: 2859703 1 Capsule(s) PO BID 02/20/2015 02/26/2015 Inactive metolazone 5 mg tablet RxNorm: 626764 1 Tablet(s) PO daily 07/201403/21/2015 Inactive spironolactone 50 mg tablet RxNorm: 334389 1 Tablet(s) PO daily 02/11/2015 01/02/2016 Inactive Efudex 5 % topical cream RxNorm: 311657 1 TOP BID 01/28/2015 02/10/2015 Inactive potassium chloride ER 10 mEq tablet,extended release(part/ cryst) RxNorm: 5516430 1 Tablet(s) PO daily x 1week then three times weekly with the lasix. 01/28/2015 05/27/2015 Inactive Lasix 20 mg tablet RxNorm: 927562 1 Tablet(s) PO daily x 1 week, then every three days thereafter 01/28/20152015 Inactive lisinopril 20 mg tablet RxNorm: 328994 Tablet(s) TAKE 1 TABLET BY MOUTH TWICE DAILY. 11/23/2014 03/22/2015 Inactive lisinopril 20 mg tablet RxNorm: 663219 TAKE 1 TABLET BY MOUTH TWICE DAILY. 11/22/2014 11/22/2014 Inactive Sinemet 25 mg-100 mg tablet RxNorm: 673343 1 Tablet(s) PO BID TAKE 1 TABLET BY MOUTH TWICE A DAY IN THE MORNING AND AT SUPPER 10/01/2014 03/04/2015 Inactive [ SAVINGS FOR UNINSURED PATIENTS -- BIN:542943, PCN: ASPROD1, Group: [id number], ID# [id number], Process claim through [employer], for questions: . THIS IS NOT INSURANCE.] glipizide 10 mg tablet RxNorm: 090414 1 Tablet(s) BID TAKE 1 TABLET BY MOUTH DAILY. 10/01/2014 06/24/2015 Inactive glipizide 10 mg tablet RxNorm: 234693 Tablet(s) daily TAKE 1 TABLET BY MOUTH DAILY. 08/06/2014 09/30/2014 Inactive Lantus Solostar 100 unit/mL (3 mL) subcutaneous insulin pen RxNorm: 307093 20 Unit(s) SQ daily 07/11/2014 09/26/2015 Inactive [SAVINGS FOR UNINSURED PATIENTS -- BIN:009178, PCN: ASPROD1, Group: [id number], ID# [id number], Process claim through [employer], for questions: . THIS IS NOT INSURANCE.] metformin ER 500 mg tablet,extended release 24 hr RxNorm: 330591 1 Tablet(s) PO BID 07/10/2014 03/24/2015 Inactive lisinopril 20 mg tablet RxNorm: 568995 Tablet(s) TAKE 1 TABLET BY MOUTH TWICE DAILY. 07/10/2014 11/21/2014 Inactive Lantus Solostar 100 unit/mL (3 mL) subcutaneous insulin pen RxNorm: 347659 20 Unit(s) SQ daily 05/30/2014 07/10/2014 Inactive [SAVINGS FOR UNINSURED PATIENTS -- BIN:511186, PCN: ASPROD1, Group: [id number], ID# [id number], Process claim through [employer], for questions: . THIS IS NOT INSURANCE.] Sinemet 25 mg-100 mg tablet RxNorm: 818364 Tablet(s) TAKE 1 TABLET BY MOUTH TWICE A DAY IN THE MORNING AND AT SUPPER 05/30/2014 09/30/2014 Inactive [SAVINGS FOR UNINSURED PATIENTS -- BIN:152509, PCN: ASPROD1, Group: [id number], ID# [id number], Process claim through [employer], for questions: . THIS IS NOT INSURANCE.] lisinopril 20 mg tablet RxNorm: 803225 TAKE 1 TABLET BY MOUTH TWICE DAILY. 04/09/2014 04/08/2014 Inactive glipizide 10 mg tablet RxNorm: 329350 TAKE 1 TABLET BY MOUTH TWICE DAILY. 04/09/2014 08/05/2014 Inactive glipizide 10 mg tablet RxNorm: 323695 TAKE 1 TABLET BY MOUTH TWICE DAILY. 04/09/2014 04/08/2014 Inactive lisinopril 20 mg tablet RxNorm: 215013 TAKE 1 TABLET BY MOUTH TWICE DAILY. 04/09/2014 07/09/2014 Inactive lisinopril 20 mg tablet RxNorm: 604978 Tablet(s) TAKE ONE TABLET BY MOUTH TWICE DAILY 04/06/2014 04/08/2014 Inactive [SAVINGS FOR UNINSURED PATIENTS -- BIN:352285 , PCN: ASPROD1, Group: [id number], ID# [id number], Process claim through [employer], for questions: . THIS IS NOT INSURANCE.] glipizide 10 mg tablet RxNorm: 173385 1 Tablet(s) PO BID 201304/08/2014 Inactive [SAVINGS FOR UNINSURED PATIENTS -- BIN:874700, PCN: ASPROD1, Group: [id number], ID # [id number], Process claim through [employer], for questions: . THIS IS NOT INSURANCE.] pravastatin 10 mg tablet RxNorm: 546604 TAKE ONE TABLET BY MOUTH EVERY DAY 02/26/2014 05/26/2014 Inactive Sinemet 25 mg-100 mg tablet RxNorm: 584701 TAKE 1 TABLET BY MOUTH TWICE A DAY IN THE MORNING AND AT SUPPER 01/26/201401/25 Inactive Sinemet 25 mg-100 mg tablet RxNorm: 469832 Tablet(s) TAKE 1 TABLET BY MOUTH TWICE A DAY IN THE MORNING AND AT SUPPER 01/26/2014 05/29/2014 Inactive [SAVINGS FOR UNINSURED PATIENTS -- BIN:682829, PCN: ASPROD1, Group: [id number], ID# [id number], Process claim through [employer], for questions: . THIS IS NOT INSURANCE.] Sinemet 25 mg-100 mg tablet RxNorm: 389175 TAKE 1 TABLET BY MOUTH TWICE A DAY IN THE MORNING AND AT SUPPER 01/26/201401/25 Inactive Sinemet 25 mg-100 mg tablet RxNorm: 937089 TAKE 1 TABLET BY MOUTH TWICE A DAY IN THE MORNING AND AT SUPPER 01/26/201401/25 Inactive pantoprazole 40 mg tablet,delayed release RxNorm: 911204 TAKE 1 TABLET DAILY 01/25/2014 10/07/2016 Inactive finasteride 5 mg tablet RxNorm: 191711 1 Tablet(s) PO daily 12/201309/30/2014 Inactive [SAVINGS FOR UNINSURED PATIENTS -- BIN:421642, PCN: ASPROD1, Group: [id number] , ID# [id number], Process claim through [employer], for questions: . THIS IS NOT INSURANCE.] sucralfate 100 mg/mL oral suspension RxNorm: 807752 10 Milliliter(s) PO QID 01/23/2014 09/30/2014 Inactive dispense qs x 1 month lisinopril 20 mg tablet RxNorm: 692253 TAKE ONE TABLET BY MOUTH TWICE DAILY 12/27/2013 03/26/2014 Inactive pantoprazole 40 mg tablet,delayed release RxNorm: 545880 1 Tablet(s) PO daily 12/26/2013 12/25/2013 Inactive [SAVINGS FOR UNINSURED PATIENTS -- BIN:463632, PCN: ASPROD1, Group: [id number], ID# [id number], Process claim through [employer], for questions: . THIS IS NOT INSURANCE.] pantoprazole 40 mg tablet,delayed release RxNorm: 133537 1 Tablet(s) PO daily 12/26/2013 12/20/2014 Inactive [SAVINGS FOR UNINSURED PATIENTS -- BIN:046772, PCN: ASPROD1, Group: [id number], ID# [id number], Process claim through [employer], for questions: . THIS IS NOT INSURANCE.] gemfibrozil 600 mg tablet RxNorm: 461649 1 Tablet(s) PO BID 11/201310/23/2013 Inactive gemfibrozil 600 mg tablet RxNorm: 907198 1 Tablet(s) PO BID 11/201309/30/2014 Inactive [SAVINGS FOR UNINSURED PATIENTS -- BIN:716538, PCN: ASPROD1, Group: [id number] , ID# [id number], Process claim through [employer], for questions: . THIS IS NOT INSURANCE.] finasteride 5 mg tablet RxNorm: 348937 1 Tablet(s) PO daily 04/201301/24/2014 Inactive [SAVINGS FOR UNINSURED PATIENTS -- BIN:623504, PCN: ASPROD1, Group: [id number] , ID# [id number], Process claim through [employer], for questions: . THIS IS NOT INSURANCE.] Lantus Solostar 100 unit/mL (3 mL) subcutaneous insulin pen RxNorm: 879573 20 Unit(s) SQ daily 10/09/2013 05/29/2014 Inactive [SAVINGS FOR UNINSURED PATIENTS -- BIN:613902, PCN: ASPROD1, Group: [id number], ID# [id number], Process claim through [employer], for questions: . THIS IS NOT INSURANCE.] glipizide 10 mg tablet RxNorm: 599678 1 Tablet(s) PO daily 04/05/2014 Inactive [SAVINGS FOR UNINSURED PATIENTS -- BIN:653371, PCN: ASPROD1, Group: AMMira , ID# [id number], Process claim through [employer], for questions: . THIS IS NOT INSURANCE.] Lantus Solostar 100 unit/mL (3 mL) subcutaneous insulin pen RxNorm: 972858 20 Unit(s) SQ daily 07/18/2013 10/08/2013 Inactive Sinemet 25 mg-100 mg tablet RxNorm: 589697 1 Tablet(s) PO BID one pill in morning , one at supper 07/10/2013 01/25/2014 Inactive Sinemet 25 mg-100 mg tablet RxNorm: 142107 1 Tablet(s) PO BID one pill in morning , one at supper 04/24/2013 07/09/2013 Inactive metformin ER 500 mg tablet,extended release 24 hr RxNorm: 968619 1 Tablet(s) PO BID 04/24/2013 04/18/2014 Inactive glipizide 10 mg tablet RxNorm: 661031 1 Tablet(s) PO daily 09/201310/08/2013 Inactive lisinopril 20 mg tablet RxNorm: 325359 1 Tablet(s) PO BID 04/2410/20/2013 Inactive pravastatin 10 mg tablet RxNorm: 191953 1 Tablet(s) PO daily 10/20/2013 Inactive Lantus Solostar 100 unit/mL (3 mL) subcutaneous insulin pen RxNorm: 083497 20 Unit(s) SQ daily 04/24/2013 07/17/2013 Inactive glipizide 10 mg tablet RxNorm: 881720 1 Tablet(s) PO daily 05/201304/23/2013 Inactive glipizide 10 mg tablet RxNorm: 763850 1 Tablet(s) PO daily 05/201204/19/2013 Inactive Lantus Solostar 100 unit/mL (3 mL) subcutaneous insulin pen RxNorm: 144214 16 Unit(s) SQ daily 03/20/2013 04/23/2013 Inactive Sinemet 25 mg-100 mg tablet RxNorm: 939398 1 Tablet(s) PO BID one pill in morning , one at supper 01/20/2013 04/23/2013 Inactive Lantus Solostar 100 unit/mL (3 mL) subcutaneous insulin pen RxNorm: 301914 16 Unit(s) SQ daily 01/19/2013 01/25/2013 Inactive Sinemet 25 mg-100 mg tablet RxNorm: 467348 1 Tablet(s) PO BID one pill in morning , one at supper 01/19/2013 01/19/2013 Inactive glipizide 10 mg tablet RxNorm: 461822 1 Tablet(s) PO BID 201203/19/2013 Inactive Lantus Solostar 100 unit/mL (3 mL) Sub-Q Insulin Pen RxNorm: 879048 12 Unit(s) SQ daily 12/21/2012 01/18/2013 Inactive lisinopril 20 mg tablet RxNorm: 885014 1 Tablet(s) PO BID 12/0804/23/2013 Inactive metformin ER 500 mg tablet,extended release 24 hr RxNorm: 889269 1 Tablet(s) PO BID 11/30/2012 04/23/2013 Inactive Lantus Solostar 100 unit/mL (3 mL) Sub-Q Insulin Pen RxNorm: 359869 5 Unit(s) SQ daily 11/30/2012 12/07/2012 Inactive FINASTERIDE TAB 5MG RxNorm: 10/03/2012 Inactive lisinopril 20 mg tablet RxNorm: 357580 1 Tablet(s) PO BID 09/0812/06/2012 Inactive glipizide 10 mg tablet RxNorm: 951641 1 Tablet(s) PO BID 201212/30/2012 Inactive metronidazole 500 mg tablet RxNorm: 186926 1 Tablet(s) PO TID 05/30/2012 06/08/2012 Inactive metformin ER 500 mg tablet,extended release 24 hr RxNorm: 457493 2 Tablet(s) PO daily 04/22/2012 11/29/2012 Inactive metformin ER 500 mg tablet,extended release 24 hr RxNorm: 819799 2 Tablet(s) PO daily 04/21/2012 04/21/2012 Inactive ketoconazole 2 % Topical Cream RxNorm: 897815 1 Application TOP BID 04/14/2012 05/04/2012 Inactive ketoconazole 2 % Shampoo RxNorm: 420773 1 Application TOP every other day apply to feet, leave on for 5 minutes, then rinse. 04/14/2012 04/27/2012 Inactive clotrimazole 1 % Topical Cream RxNorm: 298064 1 Application TOP BID 02/22/2012 04/03/2012 Inactive glipizide 10 mg tablet RxNorm: 589845 1 Tablet(s) PO BID 201106/18/2012 Inactive lisinopril 20 mg tablet RxNorm: 944276 1 Tablet(s) PO BID 09/0108/26/2012 Inactive metformin ER 500 mg tablet,extended release 24 hr RxNorm: 837895 2 Tablet(s) PO daily 08/10/2011 04/20/2012 Inactive metformin ER 1,000 mg 24 hr Tab Ctrl Rel RxNorm: 351951 1 Tablet(s) PO daily 07/28/2011 08/09/2011 Inactive Kombiglyze XR 5 mg-1,000 mg 24 hr Tab RxNorm: 7701962 1 Tablet(s) PO daily 07/28/2011 07/27/2011 Inactive Kombiglyze XR 5 mg-1,000 mg 24 hr Tab RxNorm: 4589946 1 Tablet(s) PO daily 07/28/2011 07/28/2011 Inactive glipizide 10 mg tablet RxNorm: 028237 1 Tablet(s) PO BID 201107/27/2011 Inactive glipizide 10 mg Tab RxNorm: 973794 1 Tablet(s) PO BID 201106/16/2011 Inactive glipizide 10 mg Tab RxNorm: 025357 1 Tablet(s) PO BID 201006/15/2011 Inactive glipizide 10 mg Tab RxNorm: 185601 1 Tablet(s) PO BID 201004/01/2011 Inactive glipizide 10 mg Tab RxNorm: 928450 Tablet(s) PO BID 201003/31/2011 Inactive Calcium + Vitamin D 600 mg calcium-200 unit tablet RxNorm: 162068 1 Tablet(s) PO BID No Start Date Active pantoprazole 40 mg tablet,delayed release RxNorm: 351764 1 Tablet(s) PO daily No Start Date 12/25/2013 Inactive Sinemet 25 mg-100 mg tablet RxNorm: 631314 1/2 Tablet(s) PO BID one pill in morning, one at supper No Start Date 01/18 Inactive levothyroxine 100 mcg tablet RxNorm: 297106 1 Tablet(s) PO daily No Start Date 10/04/2016 Inactive lisinopril 20 mg Tab RxNorm: 255178 1 Tablet(s) PO BID No Start Date 09/01/2011 Inactive hydrocodone 5 mg-acetaminophen 325 mg tablet RxNorm: 166740 1-2 Tablet(s) PO Q6- 8H No Start Date 01/20/2016 Inactive pravastatin 10 mg tablet RxNorm: 976986 1 Tablet(s) PO daily No Start Date 04/23/2013 Inactive Medication Administered Medication Codes Instructions Start Date Status Kenalog 40 mg/mL suspension for injection RxNorm: 1672708 1Milliliter 07/30/2016 No longer Active Kenalog 40 mg/mL suspension for injection RxNorm: 6319611 1Milliliter 01/20/2016 No longer Active Immunizations Vaccine Codes Date Status PPD Unknown 03/20/2015 completed Pneumococcal (Adult) CVX: 133 03/08/2015 completed Pneumococcal (Adult) CVX: 33 01/23/2014 completed Influenza CVX: 141 01/19/2013 completed Assessments Condition Codes Effective Dates Type 2 diabetes mellitus with hyperglycemia ICD-10: E11.65 ICD-9: 250.02 05/04/2018 Parkinson's disease ICD-10: G20 ICD-9: 332.0 05/04/2018 Slow transit constipation ICD-10: K59.01 ICD-9: 564.01 05/04/2018 Essential (primary) hypertension ICD-10: I10 ICD-9: 401.9 05/04/2018 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 ICD-9: 244.8 05/04/2018 Encounter for general adult medical examination with abnormal findings ICD-10: Z00.01 ICD-9: V70.0 02/17/2018 Other specified polyneuropathies ICD-10: G62.89 ICD-9: 356.8 01/11/2018 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 ICD-9: 250.60 01/11/2018 Type 2 diabetes mellitus with hyperglycemia ICD-10: E11.65 ICD-9: 250.00 01/11/2018 Essential (primary) hypertension ICD-10: I10 ICD-9: 401.1 01/11/2018 Localized edema ICD-10: R60.0 ICD-9: 782.3 05/13/2017 Type 2 diabetes mellitus without complications ICD-10: E11.9 ICD-9: 250.00 05/13/2017 Rash and other nonspecific skin eruption ICD-10: R21 ICD-9: 782.1 04/28/2017 Hypothyroidism, unspecified ICD-10: E03.9 ICD-9: 244.9 02/04/2017 Allergic rhinitis due to pollen ICD-10: J30.1 [...] function studies ICD-10: R94.6 ICD-9: 794.5 07/13/2016 Hypo-osmolality and hyponatremia ICD-10: E87.1 ICD-9: 276.1 04/27/2016 Hesitancy of micturition ICD-10: R39.11 ICD-9: 788.64 04/27/2016 Low back pain ICD-10: M54.5 ICD-9: 724.2 01/20/2016 Unspecified open wound, right ankle, initial encounter [...] Reason For Visit Effective Dates Notes hypothyroid 05/04/2018 Annual Medicare Wellness Exam 02/17/2018 hypothyroid 01/11/2018 hypothyroid 09/16/2017 rash 07/13/2017 rash 05/13/2017 rash 04/28/2017 hypertension 04/15/2017 hypothyroid [...] Code Item Item Code Result Date %Hba1C Pct242 % HbA1c 26955-6 7.1 % 02/17/2018 %Hba1C Ipi833 Gluc Ave 157 mg/dL 02/17/2018 Comp Metabolic Lpm188 NA 135 mEq/L 02/17/2018 Comp Metabolic Faq948 K 4.7 mEq/L 02/17/2018 Comp Metabolic Fqk393 CL 97 mEq/L 02/17/2018 Comp Metabolic Tdk454 CO2 27.0 mEq/L 02/17/2018 Comp Metabolic Jfl930 ANION GAP 16 02/17/2018 Comp Metabolic Jti410 GLUCOSE 141 mg/dL 02/17/2018 Comp Metabolic Wdv461 Creat 1.5 mg/dL 02/17/2018 Comp Metabolic Qcd810 eGFR 48 ml/min/1.73m2 02/17/2018 Comp Metabolic Oqd905 BUN 29 mg/dL 02/17/2018 Comp Metabolic Iph435 B/C Ratio 19.5 Ratio 02/17/2018 Comp Metabolic Zun842 CALCIUM 9.4 mg/dL 02/17/2018 Comp Metabolic Zax983 ALK PHOS 57 U/L 02/17/2018 Comp Metabolic Xpv532 AST(SGOT) 13 U/L 02/17/2018 Comp Metabolic Opm634 ALT(SGPT) 4 U/L 02/17/2018 Comp Metabolic Dxt829 BILI T 0.6 mg/dL 02/17/2018 Comp Metabolic Ihp159 ALBUMIN 4.2 g/dL 02/17/2018 Comp Metabolic Edm515 TPRO 6.7 g/dL 02/17/2018 Comp Metabolic Hwx684 GLOB 2.5 g/dL 02/17/2018 Comp Metabolic Vtn976 A/G Ratio 1.7 Ratio 02/17/2018 Comp Metabolic Lbx212 Osmo 278 mOsmo 02/17/2018 Tsh Ord6 TSH (3rd IS) 3.10 uIU/mL 02/17/2018 Free T4 Xaq648 FREE T4 1.36 ng/dL 02/17/2018 Folate Ord36 Folate 19.00 ng/mL 01/11/2018 B12 Ayw162 B12 342.00 pg/ml 01/11/2018 Comp Metabolic Iki386 NA 134 mEq/L 09/17/2017 Comp Metabolic Dqp755 K 4.4 mEq/L 09/17/2017 Comp Metabolic Vfl837 CL 98 mEq/L 09/17/2017 Comp Metabolic Emh350 CO2 25.0 mEq/L 09/17/2017 Comp Metabolic Ibf587 ANION GAP 15 09/17/2017 Comp Metabolic Pve702 GLUCOSE 97 mg/dL 09/17/2017 Comp Metabolic Pxw664 Creat 1.7 mg/dL 09/17/2017 Comp Metabolic Gwz420 eGFR 40 ml/min/1.73m2 09/17/2017 Comp Metabolic Pod363 BUN 28 mg/dL 09/17/2017 Comp Metabolic Ete490 B/C Ratio 16.2 Ratio 09/17/2017 Comp Metabolic Xvf820 CALCIUM 9.1 mg/dL 09/17/2017 Comp Metabolic Xyb632 ALK PHOS 76 U/L 09/17/2017 Comp Metabolic Mgb807 AST(SGOT) 17 U/L 09/17/2017 Comp Metabolic Vzp845 ALT(SGPT) 15 U/L 09/17/2017 Comp Metabolic Rap643 BILI T 0.7 mg/dL 09/17/2017 Comp Metabolic Rxa874 ALBUMIN 4.1 g/dL 09/17/2017 Comp Metabolic Bhy711 TPRO 6.9 g/dL 09/17/2017 Comp Metabolic Jkk627 GLOB 2.8 g/dL 09/17/2017 Comp Metabolic Hco022 A/G Ratio 1.5 Ratio 09/17/2017 Comp Metabolic Ivw695 Osmo 274 mOsmo 09/17/2017 Free T4 Gke862 FREE T4 1.10 ng/dL 09/17/2017 Tsh Ord6 TSH (3rd IS) 5.75 uIU/mL 09/17/2017 Lipid Ord30 CHOL 210 mg/dL 09/17/2017 Lipid Ord30 HDL 40.0 mg/dl 09/17/2017 Lipid Ord30 TRIG 256 mg/dL 09/17/2017 Lipid Ord30 LDL 119 mg/dL 09/17/2017 Lipid Ord30 C/HDL 5.3 Ratio 09/17/2017 Cbc With Differential Ord2 WBC 7.35 K/ul 09/17/2017 Cbc With Differential Ord2 RBC 4.80 M/ul 09/17/2017 Cbc With Differential Ord2 HGB 15.1 g/dl 09/17/2017 Cbc With Differential Ord2 HCT 45.0 % 09/17/2017 Cbc With Differential Ord2 Neut% 61.5 % 09/17/2017 Cbc With Differential Ord2 MCV 93.8 fl 09/17/2017 Cbc With Differential Ord2 Lymph% 26.3 % 09/17/2017 Cbc With Differential Ord2 MCH 31.5 pg 09/17/2017 Cbc With Differential Ord2 Evans% 9.5 % 09/17/2017 Cbc With Differential Ord2 MCHC 33.6 pg 09/17/2017 Cbc With Differential Ord2 Eos% 2.4 % 09/17/2017 Cbc With Differential Ord2 PLT 181 K/ul 09/17/2017 Cbc With Differential Ord2 Baso% 0.3 % 09/17/2017 Cbc With Differential Ord2 RDW 13.5 % 09/17/2017 Cbc With Differential Ord2 Neut ABS# 4.52 K/ul 09/17/2017 Cbc With Differential Ord2 Lymph ABS# 1.93 K/ul 09/17/2017 Cbc With Differential Ord2 Evans ABS# 0.7 K/ul 09/17/2017 Cbc With Differential Ord2 Eos ABS# 0.2 K/ul 09/17/2017 Cbc With Differential Ord2 Baso ABS# 0.0 K/ul 09/17/2017 %Hba1C Ljd109 % HbA1c 08576-4 6.8 % 09/17/2017 %Hba1C Lmb472 Gluc Ave 148 mg/dL 09/17/2017 %Hba1C Yoo498 % HbA1c 40000-0 7.0 % 05/13/2017 %Hba1C Nua331 Gluc Ave 154 mg/dL 05/13/2017 Free T4 Man509 FREE T4 1.29 ng/dL 05/13/2017 Tsh Ord6 TSH (3rd IS) 4.14 uIU/mL 05/13/2017 Tsh Ord6 hTSH II 9.43 uIU/mL 02/02/2017 Comp Metabolic Vps430 NA 134 mEq/L 02/02/2017 Comp Metabolic Igm868 K 4.4 mEq/L 02/02/2017 Comp Metabolic Fep625 CL 99 mEq/L 02/02/2017 Comp Metabolic Uyn280 CO2 26.0 mEq/L 02/02/2017 Comp Metabolic Jzl265 ANION GAP 13 02/02/2017 Comp Metabolic Uko108 GLUCOSE 256 mg/dL 02/02/2017 Comp Metabolic Dwy192 Creat 1.6 mg/dL 02/02/2017 Comp Metabolic Wdk768 eGFR 45 ml/min/1.73m2 02/02/2017 Comp Metabolic Iqa803 BUN 26 mg/dL 02/02/2017 Comp Metabolic Xcg726 B/C Ratio 16.6 Ratio 02/02/2017 Comp Metabolic Tzl332 CALCIUM 8.7 mg/dL 02/02/2017 Comp Metabolic Lmu242 ALK PHOS 63 U/L 02/02/2017 Comp Metabolic Kvw592 AST(SGOT) 11 U/L 02/02/2017 Comp Metabolic Buc663 ALT(SGPT) 9 U/L 02/02/2017 Comp Metabolic Ozn125 BILI T 0.5 mg/dL 02/02/2017 Comp Metabolic Nyb224 ALBUMIN 3.7 g/dL 02/02/2017 Comp Metabolic Klh977 TPRO 6.1 g/dL 02/02/2017 Comp Metabolic Nfm587 GLOB 2.4 g/dL 02/02/2017 Comp Metabolic Fta211 A/G Ratio 1.6 Ratio 02/02/2017 Comp Metabolic Ppr608 Osmo 282 mOsmo 02/02/2017 %Hba1C Srk950 % HbA1c 08432-1 7.5 % 02/02/2017 %Hba1C Ykb251 Gluc Ave 169 mg/dL 02/02/2017 Free T4 Yrg056 FREE T4 1.23 ng/dL 02/02/2017 Cbc With Differential Ord2 WBC 8.16 K/ul 02/02/2017 Cbc With Differential Ord2 RBC 4.42 M/ul 02/02/2017 Cbc With Differential Ord2 HGB 13.8 g/dl 02/02/2017 Cbc With Differential Ord2 HCT 41.1 % 02/02/2017 Cbc With Differential Ord2 Neut% 54.9 % 02/02/2017 Cbc With Differential Ord2 MCV 93.0 fl 02/02/2017 Cbc With Differential Ord2 Lymph% 32.0 % 02/02/2017 Cbc With Differential Ord2 MCH 31.2 pg 02/02/2017 Cbc With Differential Ord2 Evans% 9.6 % 02/02/2017 Cbc With Differential Ord2 MCHC 33.6 pg 02/02/2017 Cbc With Differential Ord2 Eos% 2.9 % 02/02/2017 Cbc With Differential Ord2 PLT 151 K/ul 02/02/2017 Cbc With Differential Ord2 Baso% 0.6 % 02/02/2017 Cbc With Differential Ord2 RDW 14.1 % 02/02/2017 Cbc With Differential Ord2 Neut ABS# 4.48 K/ul 02/02/2017 Cbc With Differential Ord2 Lymph ABS# 2.61 K/ul 02/02/2017 Cbc With Differential Ord2 Evans ABS# 0.8 K/ul 02/02/2017 Cbc With Differential Ord2 Eos ABS# 0.2 K/ul 02/02/2017 Cbc With Differential Ord2 Baso ABS# 0.1 K/ul 02/02/2017 Total T3 Ord42 TT3 0.59 ng/ml 07/14/2016 Free T4 Zcf672 FREE T4 1.14 ng/dL 07/14/2016 Cbc With Differential Ord2 WBC 6.90 K/ul 06/22/2016 Cbc With Differential Ord2 RBC 4.50 M/ul 06/22/2016 Cbc With Differential Ord2 HGB 14.3 g/dl 06/22/2016 Cbc With Differential Ord2 HCT 42.6 % 06/22/2016 Cbc With Differential Ord2 Neut% 51.6 % 06/22/2016 Cbc With Differential Ord2 MCV 94.7 fl 06/22/2016 Cbc With Differential Ord2 Lymph% 34.9 % 06/22/2016 Cbc With Differential Ord2 MCH 31.8 pg 06/22/2016 Cbc With Differential Ord2 Evans% 9.9 % 06/22/2016 Cbc With Differential Ord2 MCHC 33.6 pg 06/22/2016 Cbc With Differential Ord2 Eos% 3.3 % 06/22/2016 Cbc With Differential Ord2 PLT 165 K/ul 06/22/2016 Cbc With Differential Ord2 Baso% 0.3 % 06/22/2016 Cbc With Differential Ord2 RDW 13.9 % 06/22/2016 Cbc With Differential Ord2 Neut ABS# 3.56 K/ul 06/22/2016 Cbc With Differential Ord2 Lymph ABS# 2.41 K/ul 06/22/2016 Cbc With Differential Ord2 Evans ABS# 0.7 K/ul 06/22/2016 Cbc With Differential Ord2 Eos ABS# 0.2 K/ul 06/22/2016 Cbc With Differential Ord2 Baso ABS# 0.0 K/ul 06/22/2016 Comp Metabolic Wht961 NA 134 mEq/L 06/22/2016 Comp Metabolic Zyx024 K 4.3 mEq/L 06/22/2016 Comp Metabolic Jma745 CL 100 mEq/L 06/22/2016 Comp Metabolic Wck619 CO2 26.0 mEq/L 06/22/2016 Comp Metabolic Hud992 ANION GAP 12 06/22/2016 Comp Metabolic Hck399 GLUCOSE 222 mg/dL 06/22/2016 Comp Metabolic Ats096 Creat 1.5 mg/dL 06/22/2016 Comp Metabolic Kck103 eGFR 49 ml/min/1.73m2 06/22/2016 Comp Metabolic Kjd496 BUN 23 mg/dL 06/22/2016 Comp Metabolic Oax616 B/C Ratio 15.9 Ratio 06/22/2016 Comp Metabolic Eig084 CALCIUM 9.0 mg/dL 06/22/2016 Comp Metabolic Kfu544 ALK PHOS 59 U/L 06/22/2016 Comp Metabolic Ifo880 AST(SGOT) 13 U/L 06/22/2016 Comp Metabolic Qsr063 ALT(SGPT) 11 U/L 06/22/2016 Comp Metabolic Nem458 BILI T 0.5 mg/dL 06/22/2016 Comp Metabolic Crv571 ALBUMIN 3.8 g/dL 06/22/2016 Comp Metabolic Ilv850 TPRO 6.2 g/dL 06/22/2016 Comp Metabolic Wgy122 GLOB 2.4 g/dL 06/22/2016 Comp Metabolic Jca256 A/G Ratio 1.6 Ratio 06/22/2016 Comp Metabolic Xdq204 Osmo 279 mOsmo 06/22/2016 Tsh Ord6 hTSH II 0.44 uIU/mL 06/22/2016 Comp Metabolic Syg569 NA 134 mEq/L 04/27/2016 Comp Metabolic Bmf515 K 4.6 mEq/L 04/27/2016 Comp Metabolic Bol145 CL 99 mEq/L 04/27/2016 Comp Metabolic Phv581 CO2 27.0 mEq/L 04/27/2016 Comp Metabolic Itp909 ANION GAP 13 04/27/2016 Comp Metabolic Hdd341 GLUCOSE 178 mg/dL 04/27/2016 Comp Metabolic Epl379 Creat 1.4 mg/dL 04/27/2016 Comp Metabolic Stb016 eGFR 53 ml/min/1.73m2 04/27/2016 Comp Metabolic Uym430 BUN 24 mg/dL 04/27/2016 Comp Metabolic Cti561 B/C Ratio 17.5 Ratio 04/27/2016 Comp Metabolic Prl557 CALCIUM 9.1 mg/dL 04/27/2016 Comp Metabolic Jhu610 ALK PHOS 72 U/L 04/27/2016 Comp Metabolic Ggr547 AST(SGOT) 16 U/L 04/27/2016 Comp Metabolic Wgl953 ALT(SGPT) 12 U/L 04/27/2016 Comp Metabolic Jgl427 BILI T 0.6 mg/dL 04/27/2016 Comp Metabolic Kgt363 ALBUMIN 4.1 g/dL 04/27/2016 Comp Metabolic Lmf412 TPRO 6.8 g/dL 04/27/2016 Comp Metabolic Unm172 GLOB 2.7 g/dL 04/27/2016 Comp Metabolic Fes855 A/G Ratio 1.6 Ratio 04/27/2016 Comp Metabolic Afp836 Osmo 277 mOsmo 04/27/2016 Cbc With Differential [...] 33.1 % 04/27/2016 Cbc With Differential Ord2 MCH 31.9 pg 04/27/2016 Cbc With Differential Ord2 Evans% 9.7 % 04/27/2016 Cbc With Differential Ord2 MCHC 34.0 pg 04/27/2016 Cbc With Differential Ord2 Eos% 2.8 % 04/27/2016 Cbc With Differential Ord2 PLT 159 K/ul 04/27/2016 Cbc With Differential Ord2 Baso% 0.3 % 04/27/2016 Cbc With Differential Ord2 RDW 13.8 % 04/27/2016 Cbc With Differential Ord2 Neut ABS# 4.71 K/ul 04/27/2016 Cbc With Differential Ord2 Lymph ABS# 2.89 K/ul 04/27/2016 Cbc With Differential Ord2 Evans ABS# 0.9 K/ul 04/27/2016 Cbc With Differential Ord2 Eos ABS# 0.2 K/ul 04/27/2016 Cbc With Differential Ord2 Baso ABS# 0.0 K/ul 04/27/2016 %Hba1C Sqg229 % HbA1c 23461-9 7.2 % 04/27/2016 %Hba1C Cuy129 Gluc Ave 160 mg/dL 04/27/2016 Cbc With [...] 31.0 pg 01/21/2016 Cbc With Differential Ord2 Evans% 8.9 % 01/21/2016 Cbc With Differential Ord2 [...] 1.91 K/ul 01/21/2016 Cbc With Differential Ord2 Evans ABS# 0.6 K/ul 01/21/2016 Cbc With Differential Ord2 Eos ABS# 0.2 K/ul 01/21/2016 Cbc With Differential Ord2 Baso ABS# 0.0 K/ul 01/21/2016 Comp Metabolic Ssc525 NA 134 mEq/L 01/21/2016 Comp Metabolic Iir147 K 5.0 mEq/L 01/21/2016 Comp Metabolic Gyq573 CL 99 mEq/L 01/21/2016 Comp Metabolic Gdg195 CO2 26.0 mEq/L 01/21/2016 Comp Metabolic Wvv185 ANION GAP 14 01/21/2016 Comp Metabolic Llr311 GLUCOSE 260 mg/dL 01/21/2016 Comp Metabolic Lkj921 Creat 1.5 mg/dL 01/21/2016 Comp Metabolic Pxv982 eGFR 50 ml/min/1.73m2 01/21/2016 Comp Metabolic Xyk298 BUN 18 mg/dL 01/21/2016 Comp Metabolic Duc228 B/C Ratio 12.4 Ratio 01/21/2016 Comp Metabolic Szy664 CALCIUM 8.8 mg/dL 01/21/2016 Comp Metabolic Axu181 ALK PHOS 68 U/L 01/21/2016 Comp Metabolic Rjw875 AST(SGOT) 16 U/L 01/21/2016 Comp Metabolic Qan436 ALT(SGPT) 16 U/L 01/21/2016 Comp Metabolic Nqj507 BILI T 0.5 mg/dL 01/21/2016 Comp Metabolic Lxf676 ALBUMIN 3.8 g/dL 01/21/2016 Comp Metabolic Hiy941 TPRO 6.3 g/dL 01/21/2016 Comp Metabolic Nhp748 GLOB 2.5 g/dL 01/21/2016 Comp Metabolic Cwi449 A/G Ratio 1.5 Ratio 01/21/2016 Comp Metabolic Lxc688 Osmo 279 mOsmo 01/21/2016 %Hba1C Abj232 % HbA1c 05165-4 7.4 % 01/21/2016 %Hba1C Vgn694 Gluc Ave 166 mg/dL 01/21/2016 Metabolic Ord15 [...] Qnt Crqnt CRP 1.5 mg/dl 09/17/2015 %Hba1C Jdt303 % HbA1c 86970-1 7.1 % 09/17/2015 %Hba1C Lka133 Gluc Ave 157 mg/dL 09/17/2015 Cbc With Differential Ord2 WBC 7.59 K/ul 08/06/2015 Cbc With Differential Ord2 RBC 4.39 M/ul 08/06/2015 Cbc With Differential Ord2 HGB 13.9 g/dl 08/06/2015 Cbc With Differential Ord2 HCT 43.5 % 08/06/2015 Cbc With Differential Ord2 Neut% 49.9 % 08/06/2015 Cbc With Differential Ord2 MCV 99.1 fl 08/06/2015 Cbc With Differential Ord2 Lymph% 38.2 % 08/06/2015 Cbc With Differential Ord2 MCH 31.7 pg 08/06/2015 Cbc With Differential Ord2 Evans% 9.6 % 08/06/2015 Cbc With Differential Ord2 MCHC 32.0 pg 08/06/2015 Cbc With Differential Ord2 Eos% 2.0 % 08/06/2015 Cbc With Differential Ord2 PLT 165 K/ul 08/06/2015 Cbc With Differential Ord2 Baso% 0.3 % 08/06/2015 Cbc With Differential Ord2 RDW 14.8 % 08/06/2015 Cbc With Differential Ord2 Neut ABS# 3.79 K/ul 08/06/2015 Cbc With Differential Ord2 Lymph ABS# 2.90 K/ul 08/06/2015 Cbc With Differential Ord2 Evans ABS# 0.7 K/ul 08/06/2015 Cbc With Differential Ord2 Eos ABS# 0.2 K/ul 08/06/2015 Cbc With Differential Ord2 Baso ABS# 0.0 K/ul 08/06/2015 Cbc With Differential Ord2 New Analyzer Notice Please note new ref ranges starting 05-01-2015 due to implemntation of new five part differential hematolgy analyzer. 08/06/2015 Comp Metabolic Zhw378 NA 132 mEq/L 08/06/2015 Comp Metabolic Qhx932 K 4.6 mEq/L 08/06/2015 Comp Metabolic Iwj238 CL 98 mEq/L 08/06/2015 Comp Metabolic Tyb796 CO2 25.0 mEq/L 08/06/2015 Comp Metabolic Lsy065 ANION GAP 14 08/06/2015 Comp Metabolic Zfp279 GLUCOSE 170 mg/dL 08/06/2015 Comp Metabolic Fzc645 Creat 1.5 mg/dL 08/06/2015 Comp Metabolic Nrz325 eGFR 46 ml/min/1.73m2 08/06/2015 Comp Metabolic Awk897 BUN 21 mg/dL 08/06/2015 Comp Metabolic Tkg089 B/C Ratio 13.6 Ratio 08/06/2015 Comp Metabolic Tno869 CALCIUM 8.9 mg/dL 08/06/2015 Comp Metabolic Wlc234 ALK PHOS 60 U/L 08/06/2015 Comp Metabolic Iyz420 AST(SGOT) 16 U/L 08/06/2015 Comp Metabolic Ldm056 ALT(SGPT) 18 U/L 08/06/2015 Comp Metabolic Meh644 BILI T 0.4 mg/dL 08/06/2015 Comp Metabolic Wem736 ALBUMIN 3.8 g/dL 08/06/2015 Comp Metabolic Rfb694 TPRO 6.3 g/dL 08/06/2015 Comp Metabolic Agp934 GLOB 2.5 g/dL 08/06/2015 Comp Metabolic Ipi669 A/G Ratio 1.6 Ratio 08/06/2015 Comp Metabolic Nyd440 Osmo 271 mOsmo 08/06/2015 Tsh Ord6 hTSH II 0.95 uIU/mL 06/17/2015 Free T4 Kzz820 FREE T4 1.08 ng/dL 06/17/2015 Metabolic Ord15 [...] Ord15 CALCIUM 9.0 mg/dL 05/06/2015 Comp Metabolic Dvb357 NA 143 mEq/L 03/04/2015 Comp Metabolic Miw600 K 4.5 mEq/L 03/04/2015 Comp Metabolic Fqu040 CL 92 mEq/L 03/04/2015 Comp Metabolic Hem426 CO2 24.0 mEq/L 03/04/2015 Comp Metabolic Qvu209 ANION GAP 32 03/04/2015 Comp Metabolic Iky716 GLUCOSE 72 mg/dL 03/04/2015 Comp Metabolic Yyn544 Creat 1.5 mg/dL 03/04/2015 Comp Metabolic Srr295 eGFR 48 ml/min/1.73m2 03/04/2015 Comp Metabolic Bdg411 BUN 27 mg/dL 03/04/2015 Comp Metabolic Dea855 B/C Ratio 18.0 Ratio 03/04/2015 Comp Metabolic Ues656 CALCIUM 9.1 mg/dL 03/04/2015 Comp Metabolic Hki138 ALK PHOS 58 U/L 03/04/2015 Comp Metabolic Qxa469 AST(SGOT) 16 U/L 03/04/2015 Comp Metabolic Xye354 ALT(SGPT) 13 U/L 03/04/2015 Comp Metabolic Lzs715 BILI T 0.6 mg/dL 03/04/2015 Comp Metabolic Vrd495 ALBUMIN 4.0 g/dL 03/04/2015 Comp Metabolic Fhm240 TPRO 6.6 g/dL 03/04/2015 Comp Metabolic Xov290 GLOB 2.6 g/dL 03/04/2015 Comp Metabolic Vnm419 A/G Ratio 1.6 Ratio 03/04/2015 Comp Metabolic Jlx667 Osmo 289 mOsmo 03/04/2015 %Hba1C Jwp756 % HbA1c 97923-1 7.3 % 01/28/2015 %Hba1C Qey529 Gluc Ave 163 mg/dL 01/28/2015 MICRALUR [id number] MICRL MG/L 13.2 MG/L 10/01/2014 MICRALUR 3728508 XM.ALB/CRE 48.9 MG/GCR 10/01/2014 MICRALUR [id number] CREAT MG/D 27 MG/DL 10/01/2014 MICRALUR 3488286 CRE/100 0.27 G/L 10/01/2014 A1C HPLC 0178818 A1C HPLC 33580-5 7.3 % 10/01/2014 TSH 5963538 TSH 0.423 uIU/ML 10/01/2014 TSH 9112498 TSH 0.612 uIU/ML 10/18/2013 A1C HPLC 4918515 A1C HPLC 84828-7 6.8 % 10/18/2013 GFR CALC 5532884 GFR AA >60 ML/MIN 10/18/2013 GFR CALC 9795582 GFR NON-AA 52.0L ML/MIN 10/18/2013 LIPID GRP HDL TEST 30 MG/DL 10/18/2013 LIPID GRP TRIG 425 MG/DL 10/18/2013 LIPID GRP TEST LDL HI TRIG MG/DL 10/18/2013 LIPID GRP CHOL 185 MG/DL 10/18/2013 LIPID GRP RCHOL/HDL 6.17 RATIO 10/18/2013 MICRALUR [id number] MICRL MG/L 15.6 MG/L 10/18/2013 MICRALUR 8435325 XM.ALB/CRE 9.2 MG/GCR 10/18/2013 MICRALUR 5857464 CREAT MG/D 169 MG/DL 10/18/2013 MICRALUR 3138963 CRE/100 1.69 G/L 10/18/2013 CHEM 14 3997558 AST 20 U/L 10/18/2013 CHEM 14 5556094 ALT 13 IU/L 10/18/2013 CHEM 14 5405590 BUN 27 MG/DL 10/18/2013 CHEM 14 9695893 ALBUMIN 4.2 GM/DL 10/18/2013 CHEM 14 5499097 CHLORIDE 100 MMOL/L 10/18/2013 CHEM 14 1462283 BILI TOT 0.5 MG/DL 10/18/2013 CHEM 14 5390558 ALK PHOS 60 U/L 10/18/2013 CHEM 14 2998452 SODIUM 131 MMOL/L 10/18/2013 CHEM 14 9947187 CREATININE 1.32 MG/DL 10/18/2013 CHEM 14 9345201 CALCIUM 9.2 MG/DL 10/18/2013 CHEM 14 2278681 POTASSIUM 4.7 MMOL/L 10/18/2013 CHEM 14 8459529 PROT TOT 7.7 GM/DL 10/18/2013 CHEM 14 9041931 GLUCOSE 140 MG/DL 10/18/2013 CHEM 14 6879455 BICARB 24 MMOL/L 10/18/2013 CHEM 14 7893732 ANION GAP 7 MEQ/L 10/18/2013 PSA EQ 6359883 PSA EQ 7.79 NG/ML 10/18/2013 CBC 2649457 WBC 6.6 10e9/L 10/18/2013 CBC 2786218 RBC 4.58 10e12/L 10/18/2013 CBC 3805138 HGB 14.6 g/dL 10/18/2013 CBC 8132379 HCT DET 42.8 % 10/18/2013 CBC 5580506 MCV 93.4 fL 10/18/2013 CBC 1720840 MCH 31.9 pg 10/18/2013 CBC 4369708 MCHC 34.1 g/dL 10/18/2013 CBC 1988145 PLT 172 10e9/L 10/18/2013 CBC 8767109 MPV 9.3 fL 10/18/2013 CBC 9422218 JAYESH % 55.4 % 10/18/2013 CBC 7049272 LY % 33.0 % 10/18/2013 CBC 3252160 MON % 8.8 % 10/18/2013 CBC 1234279 EOS % 2.6 % 10/18/2013 CBC 0706440 BASO % 0.2 % 10/18/2013 CBC 7656409 RDW 12.7 % 10/18/2013 CBC 8550853 ABS JAYESH 3.66 10e9/L 10/18/2013 CBC 3535294 ABS LYMPH 2.18 10e9/L 10/18/2013 CBC 2931566 ABS MONO 0.58 10e9/L 10/18/2013 CBC 8258575 ABS EOS 0.17 10e9/L 10/18/2013 CBC 9853311 ABS BASO 0.01 10e9/L 10/18/2013 CBC 4925469 RDW-SD 42.6 fL 10/18/2013 TSH 2405617 TSH 1.257 uIU/ML 05/05/2013 CHEM 14 8311147 AST 15 U/L 05/05/2013 CHEM 14 7354723 ALT 13 IU/L 05/05/2013 CHEM 14 6165112 BUN 22 MG/DL 05/05/2013 CHEM 14 1440660 ALBUMIN 4.2 GM/DL 05/05/2013 CHEM 14 4340843 CHLORIDE 104 MMOL/L 05/05/2013 CHEM 14 4950431 BILI TOT 0.6 MG/DL 05/05/2013 CHEM 14 2867531 ALK PHOS 52 U/L 05/05/2013 CHEM 14 8135356 SODIUM 137 MMOL/L 05/05/2013 CHEM 14 [id number] CREATININE 1.25 MG/DL 05/05/2013 CHEM 14 4540747 CALCIUM 9.1 MG/DL 05/05/2013 CHEM 14 7606588 POTASSIUM 5.0 MMOL/L 05/05/2013 CHEM 14 1511639 PROT TOT 6.7 GM/DL 05/05/2013 CHEM 14 0520320 GLUCOSE 142 MG/DL 05/05/2013 CHEM 14 [id number] BICARB 27 MMOL/L 05/05/2013 CHEM 14 7138357 ANION GAP 6 MEQ/L 05/05/2013 GFR CALC 0441460 GFR AA >60 ML/MIN 05/05/2013 GFR CALC 2040922 GFR NON-AA 56.0L ML/MIN 05/05/2013 CBC 7600881 WBC 6.1 10e9/L 05/05/2013 CBC 1649932 RBC 4.74 10e12/L 05/05/2013 CBC 0739461 HGB 14.7 g/dL 05/05/2013 CBC 7310214 HCT DET 43.6 % 05/05/2013 CBC 1280423 MCV 92.0 fL 05/05/2013 CBC 4500621 MCH 31.0 pg 05/05/2013 CBC 0465659 MCHC 33.7 g/dL 05/05/2013 CBC 2038021 PLT 168 10e9/L 05/05/2013 CBC 9476988 MPV 9.3 fL 05/05/2013 CBC 6006056 JAYESH % 53.2 % 05/05/2013 CBC 6118163 LY % 35.3 % 05/05/2013 CBC 0663688 MON % 8.7 % 05/05/2013 CBC 4161607 EOS % 2.5 % 05/05/2013 CBC 6286555 BASO % 0.3 % 05/05/2013 CBC 8167570 RDW 13.5 % 05/05/2013 CBC 7537981 ABS JAYESH 3.25 10e9/L 05/05/2013 CBC 0596357 ABS LYMPH 2.15 10e9/L 05/05/2013 CBC 7601681 ABS MONO 0.53 10e9/L 05/05/2013 CBC 7344056 ABS EOS 0.15 10e9/L 05/05/2013 CBC 7390694 ABS BASO 0.02 10e9/L 05/05/2013 CBC 3847458 RDW-SD 44.8 fL 05/05/2013 A1C HPLC 8525464 A1C HPLC 86222-5 6.4 % 05/05/2013 LIPID GRP HDL TEST 32 MG/DL 05/05/2013 LIPID GRP TRIG 170 MG/DL 05/05/2013 LIPID GRP TEST LDL 73 MG/DL 05/05/2013 LIPID GRP CHOL 139 MG/DL 05/05/2013 LIPID GRP RCHOL/HDL 4.34 RATIO 05/05/2013 CHEM 14 7120687 AST 17 U/L 11/25/2012 CHEM 14 20271022 ALT 21 IU/L 11/25/2012 CHEM 14 20271022 BUN 20 MG/DL 11/25/2012 CHEM 14 3708911 ALBUMIN 4.4 GM/DL 11/25/2012 CHEM 14 3559319 CHLORIDE 99 MMOL/L 11/25/2012 CHEM 14 20271022 BILI TOT 0.6 MG/DL 11/25/2012 CHEM 14 9371228 ALK PHOS 50 U/L 11/25/2012 CHEM 14 20271022 SODIUM 129 MMOL/L 11/25/2012 CHEM 14 1823638 CREATININE 1.20 MG/DL 11/25/2012 CHEM 14 0270101 CALCIUM 9.2 MG/DL 11/25/2012 CHEM 14 6914940 POTASSIUM 5.1 MMOL/L 11/25/2012 CHEM 14 7431613 PROT TOT 6.7 GM/DL 11/25/2012 CHEM 14 0555931 GLUCOSE 196 MG/DL 11/25/2012 CHEM 14 7766315 BICARB 25 MMOL/L 11/25/2012 CHEM 14 0264966 ANION GAP 5 MEQ/L 11/25/2012 CBC 3413671 WBC 6.1 10e9/L 11/25/2012 CBC 4282774 RBC 4.78 10e12/L 11/25/2012 CBC 3713455 HGB 15.0 g/dL 11/25/2012 CBC 8294890 HCT DET 43.4 % 11/25/2012 CBC 2590924 MCV 90.8 fL 11/25/2012 CBC 5703082 MCH 31.4 pg 11/25/2012 CBC 1277928 MCHC 34.6 g/dL 11/25/2012 CBC 6076162 PLT 174 10e9/L 11/25/2012 CBC 4771438 MPV 9.5 fL 11/25/2012 CBC 7053212 JAYESH % 54.6 % 11/25/2012 CBC 0548486 LY % 32.9 % 11/25/2012 CBC 8424447 MON % 9.6 % 11/25/2012 CBC 1140926 EOS % 2.6 % 11/25/2012 CBC 5029840 BASO % 0.3 % 11/25/2012 CBC 4883388 RDW 12.9 % 11/25/2012 CBC 4775975 ABS JAYESH 3.33 10e9/L 11/25/2012 CBC [id number] ABS LYMPH 2.01 10e9/L 11/25/2012 CBC [id number] ABS MONO 0.59 10e9/L 11/25/2012 CBC [id number] ABS EOS 0.16 10e9/L 11/25/2012 CBC [id number] ABS BASO 0.02 10e9/L 11/25/2012 CBC [id number] RDW-SD 42.3 fL 11/25/2012 LIPID GRP [id number] HDL TEST 39 MG/DL 11/25/2012 LIPID GRP [id number] TRIG 204 MG/DL 11/25/2012 LIPID GRP [id number] TEST LDL 100 MG/DL 11/25/2012 LIPID GRP [id number] CHOL 180 MG/DL 11/25/2012 LIPID GRP RCHOL/HDL 4.62 RATIO 11/25/2012 A1C HPLC [id number] A1C HPLC 79654-7 8.2 % 11/25/2012 GFR CALC [id number] GFR AA >60 ML/MIN 11/25/2012 GFR CALC 3082761 GFR NON-AA 58.0L ML/MIN 11/25/2012 TSH [id number] TSH 0.636 uIU/ML 01/13/2012 A1C HPLC [id number] A1C HPLC 48757-1 7.9 % 01/13/2012 GFR CALC 6480096 GFR AA >60 ML/MIN 01/13/2012 GFR CALC 5442965 GFR NON-AA 59.0L ML/MIN 01/13/2012 CBC [id number] WBC 7.8 10e9/L 01/13/2012 CBC [id number] RBC 4.93 10e12/L 01/13/2012 CBC [id number] HGB 15.3 g/dL 01/13/2012 CBC [id number] HCT DET 43.6 % 01/13/2012 CBC [id number] MCV 88.4 fL 01/13/2012 CBC [id number] MCH 31.0 pg 01/13/2012 CBC [id number] MCHC 35.1 g/dL 01/13/2012 CBC [id number] PLT 173 10e9/L 01/13/2012 CBC [id number] MPV 9.1 fL 01/13/2012 CBC [id number] JAYESH % 57.6 % 01/13/2012 CBC [id number] LY % 31.5 % 01/13/2012 CBC [id number] MON % 8.8 % 01/13/2012 CBC [id number] EOS % 1.8 % 01/13/2012 CBC [id number] BASO % 0.3 % 01/13/2012 CBC [id number] RDW 12.9 % 01/13/2012 CBC [id number] ABS JAYESH 4.49 10e9/L 01/13/2012 CBC [id number] ABS LYMPH 2.46 10e9/L 01/13/2012 CBC [id number] ABS MONO 0.69 10e9/L 01/13/2012 CBC [id number] ABS EOS 0.14 10e9/L 01/13/2012 CBC [id number] ABS BASO 0.02 10e9/L 01/13/2012 CBC [id number] RDW-SD 41.2 fL 01/13/2012 CHEM 14 [id number] AST 21 U/L 01/13/2012 CHEM 14 [id number] ALT 23 IU/L 01/13/2012 CHEM 14 [id number] BUN 20 MG/DL 01/13/2012 CHEM 14 [id number] ALBUMIN 4.4 GM/DL 01/13/2012 CHEM 14 [id number] CHLORIDE 94 MMOL/L 01/13/2012 CHEM 14 [id number] BILI TOT 0.5 MG/DL 01/13/2012 CHEM 14 6373553 ALK PHOS 60 U/L 01/13/2012 CHEM 14 [id number] SODIUM 131 MMOL/L 01/13/2012 CHEM 14 [id number] CREATININE 1.20 MG/DL 01/13/2012 CHEM 14 [id number] CALCIUM 9.5 MG/DL 01/13/2012 CHEM 14 [id number] POTASSIUM 4.3 MMOL/L 01/13/2012 CHEM 14 [id number] PROT TOT 6.5 GM/DL 01/13/2012 CHEM 14 [id number] GLUCOSE 172 MG/DL 01/13/2012 CHEM 14 [id number] BICARB 26 MMOL/L 01/13/2012 CHEM 14 [id number] ANION GAP 11 MEQ/L 01/13/2012 Review of Systems System Result Effective Dates Constitutional No recent illness 2018 Constitutional No anorexia 05/04/2018 Constitutional No night sweats 2018 Constitutional No chills 05/04/2018 Constitutional No diaphoresis 05/04/2018 Constitutional fatigue 05/04/2018 Constitutional No fever 05/04/2018 Constitutional No insomnia 05/04/2018 Constitutional malaise 05/04/2018 Eyes No eye discharge 05/04/2018 Eyes No eye erythema 05/04/2018 Ears/Nose/Throat/Neck No dizziness 2018 Cardiovascular No chest pain/pressure Cardiovascular No dyspnea 05/04/2018 Cardiovascular edema 05/04/2018 Respiratory No cough 05/04/2018 Gastrointestinal No vomiting 05/04/2018 Musculoskeletal stiffness 05/04/2018 Neurologic No alteration of consciousness 05/04/2018 Neurologic memory loss 05/04/2018 Psychiatric No anxiety 05/04/2018 Musculoskeletal muscle weakness 2018 Neurologic dyskinesia or tremor 2018 Gastrointestinal constipation 05/04/2018 Constitutional No recent illness 2017 Constitutional No anorexia 02/17/2018 Constitutional No night sweats 2017 Constitutional No chills 02/17/2018 Constitutional No diaphoresis 02/17/2018 Constitutional fatigue 02/17/2018 Constitutional No fever 02/17/2018 Constitutional No insomnia 02/17/2018 Constitutional malaise 02/17/2018 Eyes No eye discharge 02/17/2018 Eyes No eye erythema 02/17/2018 Ears/Nose/Throat/Neck No dizziness 2017 Cardiovascular No chest pain/pressure 04/2017 Cardiovascular No dyspnea 02/17/2018 Cardiovascular edema 02/17/2018 Respiratory No cough 02/17/2018 Gastrointestinal No vomiting 02/17/2018 Genitourinary/Nephrology No dysuria 02/17 Musculoskeletal stiffness 02/17/2018 Dermatologic No rash 02/17/2018 Neurologic No alteration of consciousness 02/17/2018 Neurologic memory loss 02/17/2018 Psychiatric No anxiety 02/17/2018 Constitutional No recent illness 2017 Constitutional No anorexia 01/11/2018 Constitutional No night sweats 2017 Constitutional No chills 01/11/2018 Constitutional No diaphoresis 01/11/2018 Constitutional fatigue 01/11/2018 Constitutional No fever 01/11/2018 Constitutional No insomnia 01/11/2018 Constitutional malaise 01/11/2018 Eyes No eye discharge 01/11/2018 Eyes No eye erythema 01/11/2018 Ears/Nose/Throat/Neck No dizziness 2017 Cardiovascular No chest pain/pressure Cardiovascular No dyspnea 01/11/2018 Cardiovascular edema 01/11/2018 Respiratory No cough 01/11/2018 Gastrointestinal No vomiting 01/11/2018 Genitourinary/Nephrology No dysuria 01/11 Musculoskeletal stiffness 01/11/2018 Dermatologic No rash 01/11/2018 Neurologic No alteration of consciousness 01/11/2018 Neurologic memory loss 01/11/2018 Psychiatric No anxiety 01/11/2018 Constitutional No recent illness 2017 Constitutional No anorexia 09/16/2017 Constitutional No night sweats 2017 Constitutional No chills 09/16/2017 Constitutional No diaphoresis 09/16/2017 Constitutional fatigue 09/16/2017 Constitutional No fever 09/16/2017 Constitutional No insomnia 09/16/2017 Constitutional malaise 09/16/2017 Eyes No eye discharge 09/16/2017 Eyes No eye erythema 09/16/2017 Ears/Nose/Throat/Neck No dizziness 2017 Cardiovascular No chest pain/pressure Cardiovascular No dyspnea 09/16/2017 Cardiovascular edema 09/16/2017 Respiratory No cough 09/16/2017 Gastrointestinal No vomiting 09/16/2017 Genitourinary/Nephrology No dysuria 09/16 Musculoskeletal stiffness 09/16/2017 Dermatologic No rash 09/16/2017 Neurologic No alteration of consciousness 09/16/2017 Neurologic memory loss 09/16/2017 Psychiatric No anxiety 09/16/2017 Constitutional No recent illness 2017 Constitutional No anorexia 07/13/2017 Constitutional No night sweats 2017 Constitutional No chills 07/13/2017 Constitutional No diaphoresis 07/13/2017 Constitutional fatigue 07/13/2017 Constitutional No fever 07/13/2017 Constitutional No insomnia 07/13/2017 Constitutional malaise 07/13/2017 Eyes No eye discharge 07/13/2017 Eyes No eye erythema 07/13/2017 Ears/Nose/Throat/Neck No dizziness 2017 Cardiovascular No chest pain/pressure Cardiovascular No dyspnea 07/13/2017 Cardiovascular edema 07/13/2017 Respiratory No cough 07/13/2017 Gastrointestinal No vomiting 07/13/2017 Genitourinary/Nephrology No dysuria 07/13 Musculoskeletal stiffness 07/13/2017 Dermatologic No rash 07/13/2017 Neurologic No alteration of consciousness 07/13/2017 Neurologic memory loss 07/13/2017 Psychiatric No anxiety 07/13/2017 Constitutional No recent illness 2017 Constitutional No [...] 1994 Constitutional general appearance Overall: well developed 05/04/2018 None Full Exam - General 1994 Constitutional general appearance Overall: in no acute distress 05/04/2018 None Full Exam - General 1994 Constitutional general appearance Overall: well nourished 05/04/2018 None Full Exam - General 1994 Eyes conjunctiva /eyelids Overall: conjunctiva clear 05/04/2018 None Full Exam - General 1994 Eyes conjunctiva /eyelids Overall: cornea clear 05/04/2018 None Full Exam - General 1994 Eyes conjunctiva /eyelids Overall: eyelids normal 05/04/2018 None Full Exam - General 1994 Ears/Nose/Throat otoscopic exam Overall: external auditory canals clear 05/04/2018 None Full Exam - General 1994 Ears/Nose/Throat otoscopic exam Overall: tympanic membranes clear 05/04/2018 None Full Exam - General 1994 Ears/Nose/Throat oral cavity/pharynx/larynx Overall: oral mucosa clear 05/04/2018 None Full Exam - General 1994 Ears/Nose/Throat oral cavity/pharynx/larynx Overall: oropharyngeal mucosa clear 05/04/2018 None Full Exam - General 1994 Ears/Nose/Throat oral cavity/pharynx/larynx Overall: no masses 05/04/2018 None Full Exam - General 1994 Respiratory auscultation Overall: breath sounds clear bilaterally 05/04/2018 None Full Exam - General 1994 Respiratory respiratory effort/rhythm Overall: no retractions 05/04/2018 None Full Exam - General 1994 Respiratory respiratory effort/rhythm Overall: normal rate 05/04/2018 None Full Exam - General 1994 Cardiovascular extremities Edema present: pitting 05/04/2018 None Full Exam - General 1994 Cardiovascular extremities Edema present: severity 1+ - 4 +: 2+ 05/04/2018 None Full Exam - General 1994 Cardiovascular auscultation of heart Overall: regular rate 05/04/2018 None Full Exam - General 1994 Cardiovascular auscultation of heart Overall: normal heart sounds 05/04/2018 None Full Exam - General 1994 Abdomen abdominal exam Overall: no tenderness 05/04/2018 None Full Exam - General 1994 Abdomen abdominal exam Overall: normal bowel sounds 05/04/2018 None Full Exam - General 1994 Musculoskeletal spine, ribs and pelvis Posture: lordosis 05/04/2018 None Full Exam - General 1994 Neurologic gait Conventional walking: wide-based 05/04/2018 None Full Exam - General 1994 Neurologic cranial nerves Overall: crainial nerves 2 - 12 grossly intact 05/04/2018 None Full Exam - General 1994 Psychiatric orientation/consciousness Overall: oriented to person, place and time 05/04/2018 None Full Exam - General 1994 Psychiatric mood and affect Overall: normal mood and affect 05/04/2018 None Full Exam - General 1994 Constitutional general appearance Overall: well developed 02/17/2018 None Full Exam - General 1994 Constitutional general appearance Overall: in no acute distress 02/17/2018 None Full Exam - General 1994 Constitutional general appearance Overall: well nourished 02/17/2018 None Full Exam - General 1994 Eyes conjunctiva /eyelids Overall: conjunctiva clear 02/17/2018 None Full Exam - General 1994 Eyes conjunctiva /eyelids Overall: cornea clear 02/17/2018 None Full Exam - General 1994 Eyes conjunctiva /eyelids Overall: eyelids normal 02/17/2018 None Full Exam - General 1994 Ears/Nose/Throat otoscopic exam Overall: external auditory canals clear 02/17/2018 None Full Exam - General 1994 Ears/Nose/Throat otoscopic exam Overall: tympanic membranes clear 02/17/2018 None Full Exam - General 1994 Ears/Nose/Throat oral cavity/pharynx/larynx Overall: oral mucosa clear 02/17/2018 None Full Exam - General 1994 Ears/Nose/Throat oral cavity/pharynx/larynx Overall: oropharyngeal mucosa clear 02/17/2018 None Full Exam - General 1994 Ears/Nose/Throat oral cavity/pharynx/larynx Overall: no masses 02/17/2018 None Full Exam - General 1994 Respiratory auscultation Overall: breath sounds clear bilaterally 02/17/2018 None Full Exam - General 1994 Respiratory respiratory effort/rhythm Overall: no retractions 02/17/2018 None Full Exam - General 1994 Respiratory respiratory effort/rhythm Overall: normal rate 02/17/2018 None Full Exam - General 1994 Cardiovascular extremities Edema present: pitting 02/17/2018 None Full Exam - General 1994 Cardiovascular extremities Edema present: severity 1+ - 4 +: 2+ 02/17/2018 None Full Exam - General 1994 Cardiovascular auscultation of heart Overall: regular rate 02/17/2018 None Full Exam - General 1994 Cardiovascular auscultation of heart Overall: normal heart sounds 02/17/2018 None Full Exam - General 1994 Abdomen abdominal exam Overall: no tenderness 02/17/2018 None Full Exam - General 1994 Abdomen abdominal exam Overall: normal bowel sounds 02/17/2018 None Full Exam - General 1994 Musculoskeletal spine, ribs and pelvis Posture: lordosis 02/17/2018 None Full Exam - General 1994 Neurologic gait Conventional walking: wide-based 02/17/2018 None Full Exam - General 1994 Neurologic cranial nerves Overall: crainial nerves 2 - 12 grossly intact 02/17/2018 None Full Exam - General 1994 Psychiatric orientation/consciousness Overall: oriented to person, place and time 02/17/2018 None Full Exam - General 1994 Psychiatric mood and affect Overall: normal mood and affect 02/17/2018 None Full Exam - General 1994 Constitutional general appearance Overall: well developed 01/11/2018 None Full Exam - General 1994 Constitutional general appearance Overall: in no acute distress 01/11/2018 None Full Exam - General 1994 Constitutional general appearance Overall: well nourished 01/11/2018 None Full Exam - General 1994 Eyes conjunctiva /eyelids Overall: conjunctiva clear 01/11/2018 None Full Exam - General 1994 Eyes conjunctiva /eyelids Overall: cornea clear 01/11/2018 None Full Exam - General 1994 Eyes conjunctiva /eyelids Overall: eyelids normal 01/11/2018 None Full Exam - General 1994 Ears/Nose/Throat otoscopic exam Overall: external auditory canals clear 01/11/2018 None Full Exam - General 1994 Ears/Nose/Throat otoscopic exam Overall: tympanic membranes clear 01/11/2018 None Full Exam - General 1994 Ears/Nose/Throat oral cavity/pharynx/larynx Overall: oral mucosa clear 01/11/2018 None Full Exam - General 1994 Ears/Nose/Throat oral cavity/pharynx/larynx Overall: oropharyngeal mucosa clear 01/11/2018 None Full Exam - General 1994 Ears/Nose/Throat oral cavity/pharynx/larynx Overall: no masses 01/11/2018 None Full Exam - General 1994 Respiratory auscultation Overall: breath sounds clear bilaterally 01/11/2018 None Full Exam - General 1994 Respiratory respiratory effort/rhythm Overall: no retractions 01/11/2018 None Full Exam - General 1994 Respiratory respiratory effort/rhythm Overall: normal rate 01/11/2018 None Full Exam - General 1994 Cardiovascular extremities Edema present: pitting 01/11/2018 None Full Exam - General 1994 Cardiovascular extremities Edema present: severity 1+ - 4 +: 2+ 01/11/2018 None Full Exam - General 1994 Cardiovascular auscultation of heart Overall: regular rate 01/11/2018 None Full Exam - General 1994 Cardiovascular auscultation of heart Overall: normal heart sounds 01/11/2018 None Full Exam - General 1994 Abdomen abdominal exam Overall: no tenderness 01/11/2018 None Full Exam - General 1994 Abdomen abdominal exam Overall: normal bowel sounds 01/11/2018 None Full Exam - General 1994 Musculoskeletal spine, ribs and pelvis Posture: lordosis 01/11/2018 None Full Exam - General 1994 Neurologic gait Conventional walking: wide-based 01/11/2018 None Full Exam - General 1994 Neurologic cranial nerves Overall: crainial nerves 2 - 12 grossly intact 01/11/2018 None Full Exam - General 1994 Psychiatric orientation/consciousness Overall: oriented to person, place and time 01/11/2018 None Full Exam - General 1994 Psychiatric mood and affect Overall: normal mood and affect 01/11/2018 None Full Exam - General 1994 Constitutional general appearance Overall: well developed 09/16/2017 None Full Exam - General 1994 Constitutional general appearance Overall: in no acute distress 09/16/2017 None Full Exam - General 1994 Constitutional general appearance Overall: well nourished 09/16/2017 None Full Exam - General 1994 Eyes conjunctiva /eyelids Overall: conjunctiva clear 09/16/2017 None Full Exam - General 1994 Eyes conjunctiva /eyelids Overall: cornea clear 09/16/2017 None Full Exam - General 1994 Eyes conjunctiva /eyelids Overall: eyelids normal 09/16/2017 None Full Exam - General 1994 Ears/Nose/Throat otoscopic exam Overall: external auditory canals clear 09/16/2017 None Full Exam - General 1994 Ears/Nose/Throat otoscopic exam Overall: tympanic membranes clear 09/16/2017 None Full Exam - General 1994 Ears/Nose/Throat oral cavity/pharynx/larynx Overall: oral mucosa clear 09/16/2017 None Full Exam - General 1994 Ears/Nose/Throat oral cavity/pharynx/larynx Overall: oropharyngeal mucosa clear 09/16/2017 None Full Exam - General 1994 Ears/Nose/Throat oral cavity/pharynx/larynx Overall: no masses 09/16/2017 None Full Exam - General 1994 Respiratory auscultation Overall: breath sounds clear bilaterally 09/16/2017 None Full Exam - General 1994 Respiratory respiratory effort/rhythm Overall: no retractions 09/16/2017 None Full Exam - General 1994 Respiratory respiratory effort/rhythm Overall: normal rate 09/16/2017 None Full Exam - General 1994 Cardiovascular extremities Edema present: pitting 09/16/2017 None Full Exam - General 1994 Cardiovascular extremities Edema present: severity 1+ - 4 +: 2+ 09/16/2017 None Full Exam - General 1994 Cardiovascular auscultation of heart Overall: regular rate 09/16/2017 None Full Exam - General 1994 Cardiovascular auscultation of heart Overall: normal heart sounds 09/16/2017 None Full Exam - General 1994 Abdomen abdominal exam Overall: no tenderness 09/16/2017 None Full Exam - General 1994 Abdomen abdominal exam Overall: normal bowel sounds 09/16/2017 None Full Exam - General 1994 Musculoskeletal spine, ribs and pelvis Posture: lordosis 09/16/2017 None Full Exam - General 1994 Neurologic gait Conventional walking: wide-based 09/16/2017 None Full Exam - General 1994 Neurologic cranial nerves Overall: crainial nerves 2 - 12 grossly intact 09/16/2017 None Full Exam - General 1994 Psychiatric orientation/consciousness Overall: oriented to person, place and time 09/16/2017 None Full Exam - General 1994 Psychiatric mood and affect Overall: normal mood and affect 09/16/2017 None Full Exam - General 1994 Constitutional general appearance Overall: well developed 07/13/2017 None Full Exam - General 1994 Constitutional general appearance Overall: in no acute distress 07/13/2017 None Full Exam - General 1994 Constitutional general appearance Overall: well nourished 07/13/2017 None Full Exam - General 1994 Eyes conjunctiva /eyelids Overall: conjunctiva clear 07/13/2017 None Full Exam - General 1994 Eyes conjunctiva /eyelids Overall: cornea clear 07/13/2017 None Full Exam - General 1994 Eyes conjunctiva /eyelids Overall: eyelids normal 07/13/2017 None Full Exam - General 1994 Ears/Nose/Throat otoscopic exam Overall: external auditory canals clear 07/13/2017 None Full Exam - General 1994 Ears/Nose/Throat otoscopic exam Overall: tympanic membranes clear 07/13/2017 None Full Exam - General 1994 Ears/Nose/Throat oral cavity/pharynx/larynx Overall: oral mucosa clear 07/13/2017 None Full Exam - General 1994 Ears/Nose/Throat oral cavity/pharynx/larynx Overall: oropharyngeal mucosa clear 07/13/2017 None Full Exam - General 1994 Ears/Nose/Throat oral cavity/pharynx/larynx Overall: no masses 07/13/2017 None Full Exam - General 1994 Respiratory auscultation Overall: breath sounds clear bilaterally 07/13/2017 None Full Exam - General 1994 Respiratory respiratory effort/rhythm Overall: no retractions 07/13/2017 None Full Exam - General 1994 Respiratory respiratory effort/rhythm Overall: normal rate 07/13/2017 None Full Exam - General 1994 Cardiovascular extremities Edema present: pitting 07/13/2017 None Full Exam - General 1994 Cardiovascular extremities Edema present: severity 1+ - 4 +: 2+ 07/13/2017 None Full Exam - General 1994 Cardiovascular auscultation of heart Overall: regular rate 07/13/2017 None Full Exam - General 1994 Cardiovascular auscultation of heart Overall: normal heart sounds 07/13/2017 None Full Exam - General 1994 Abdomen abdominal exam Overall: no tenderness 07/13/2017 None Full Exam - General 1994 Abdomen abdominal exam Overall: normal bowel sounds 07/13/2017 None Full Exam - General 1994 Musculoskeletal spine, ribs and pelvis Posture: lordosis 07/13/2017 None Full Exam - General 1994 Neurologic gait Conventional walking: wide-based 07/13/2017 None Full Exam - General 1994 Neurologic cranial nerves Overall: crainial nerves 2 - 12 grossly intact 07/13/2017 None Full Exam - General 1994 Psychiatric orientation/consciousness Overall: oriented to person, place and time 07/13/2017 None Full Exam - General 1994 Psychiatric mood and affect Overall: normal mood and affect 07/13/2017 None Full Exam - General 1994 Constitutional [...] wide-based 12/26/2013 None Full Exam - General 1995 Neurologic [...] Date PPPS, SUBSEQ VISIT CPT -4: G0439 02/17/2018 PPPS, SUBSEQ VISIT CPT -4: G0439 10/12/2016 TRIAMCINOLONE ACET INJ NOS CPT-4: J3301 01/20/2016 C WOUN RTS (CULTURE OTHR SPECIMN AEROBIC) CPT-4: 86830 03/19/2015 DRAINAGE OF SKIN ABSCESS CPT-4: 46329 03/19/2015 ADMIN PNEUMOCOCCAL VACCINE SNOMED CT: 69189878 CPT-4: G0009 03/08/2015 PNEUMOCOCCAL VACC 13 THALIA IM Formatting Model/CDA Sections, Assigned to SNOMED CT: 08418922 CPT-4: 34718Mrqvspu 03/08/2015 ADMIN PNEUMOCOCCAL VACCINE SNOMED CT: 29031165 CPT-4: G0009 01/23/2014 Pneumococcal Polysaccharide Vaccine, 23-Valent, Ad Assigned to/Merissa Sutton CPT-4: [id number] 01/23/2014 DESTRUCT PREMALG LESION CPT-4: 27464 10/24/2013 DESTRUCT PREMALG LES 2-14 CPT-4: 58415 10/24/2013 ROUTINE VENIPUNCTURE CPT-4: 64932 05/05/2013 PRESCRIP TRANSMIT VIA ERX SY CPT-4: G8553 04/24/2013 DESTRUCT PREMALG LESION CPT-4: 52713 12/26/2012 PRESCRIP TRANSMIT VIA ERX SY CPT-4: G8553 11/30/2012 ROUTINE VENIPUNCTURE CPT-4: 45671 11/25/2012 PRESCRIP TRANSMIT VIA ERX SY CPT-4: G8553 05/30/2012 PRESCRIP TRANSMIT VIA ERX SY CPT-4: G8553 04/14/2012 PRESCRIP TRANSMIT VIA ERX SY CPT-4: G8553 02/22/2012 ROUTINE VENIPUNCTURE CPT-4: 70717 01/13/2012 ROUTINE VENIPUNCTURE CPT-4: 32711 08/06/2011 ROUTINE VENIPUNCTURE CPT-4: 43321 06/25/2011 Vital Signs Date Vital 05/04/2018 Blood Pressure 1: 140/72 Code : 8480-6 BMI: 29.1 Code : 80362-1 Heart Rate 1 : 65 bpm Height: 6'2" SpO2: 98% Weight: 227 lbs 02/17/2018 Blood Pressure 1: 140/74 Code : 8480-6 BMI: 29.7 Code : 44890-1 Heart Rate 1 : 67 bpm Height: 6'2" SpO2: 98% Waist Measure (cm): 112 cm Weight: 231 lbs 01/11/2018 Blood Pressure 1: 140/80 Code : 8480-6 BMI: 29.4 Code : 17628-2 Heart Rate 1 : 72 bpm Height: 6'2" SpO2: 92% Weight: 229 lbs 09/16/2017 Blood Pressure 1: 136/78 Code : 8480-6 BMI: 28.8 Code : 81319-3 Heart Rate 1 : 74 bpm Height: 6'2" SpO2: 94% Weight: 224 lbs 07/13/2017 Blood Pressure 1: 142/78 Code : 8480-6 BMI: 29.3 Code : 03475-1 Heart Rate 1 : 67 bpm Height: 6'2" SpO2: 97% Weight: 228 lbs 05/13/2017 Blood Pressure 1: 154/82 Code : 8480-6 BMI: 30.0 Code : 29147-7 Heart Rate 1 : 65 bpm Height: 6'2" SpO2: 98% Weight: 234 lbs 04/28/2017 Blood Pressure 1: 134/78 Code : 8480-6 BMI: 29.7 Code : 63835-2 Heart Rate 1 : 73 bpm Height: 6'2" SpO2: 94% Weight: 231 lbs 04/15/2017 Blood Pressure 1: 152/74 Code : 8480-6 BMI: 29.7 Code : 18098-1 Heart Rate 1 : 64 bpm Height: 6'2" SpO2: 98% Weight: 231 lbs 02/04/2017 Blood Pressure 1: 140/78 Code : 8480-6 BMI: 30.0 Code : 08775-2 Heart Rate 1 : 83 bpm Height: 6'2" SpO2: 97% Weight: 234 lbs 10/12/2016 Blood Pressure 1: 148/68 Code : 8480-6 BMI: 29.3 Code : 40439-9 Heart Rate 1 : 65 bpm Height: 6'2" SpO2: 100% Weight: 228 lbs 10/08/2016 Blood Pressure 1: 148/68 Code : 8480-6 BMI: 29.3 Code : 07632-0 Heart Rate 1 : 65 bpm Height: 6'2" SpO2: 100% Weight: 228 lbs 8 oz 09/10/2016 Blood Pressure 1: 142/68 Code : 8480-6 BMI: 29.3 Code : 46542-2 Heart Rate 1 : 75 bpm Height: 6'2" SpO2: 97% Weight: 228 lbs 08/24/2016 Blood Pressure 1: 156/86 Code : 8480-6 BMI: 28.1 Code : 47038-6 Heart Rate 1 : 72 bpm Height: 6'2" SpO2: 97% Weight: 219 lbs 08/06/2016 Blood Pressure 1: 172/90 Code : 8480-6 BMI: 29.0 Code : 72376-0 Heart Rate 1 : 68 bpm Height: 6'2" SpO2: 98% Temperature: 36.1 (C) / 96.9 (F) Weight: 226 lbs 07/30/2016 Blood Pressure 1: 138/86 Code : 8480-6 BMI: 29.7 Code : 22397-0 Heart Rate 1 : 80 bpm Height: 6'2" SpO2: 95% Temperature: 36.5 (C) / 97.7 (F) Weight: 231 lbs 06/22/2016 Blood Pressure 1: 145/82 Code : 8480-6 Heart Rate 1: 77 bpm Respiratory Rate : 18 bpm SpO2: 97% Weight: 231 lbs 04/27/2016 Blood Pressure 1: 182/78 Code : 8480-6 Blood Pressure 1: 158/76 Code: 8480-6 BMI: 30.4 Code: 32193-0 Heart Rate 1: 69 bpm Height: 6'2" SpO2: 97% Weight: 237 lbs 03/23/2016 Blood Pressure 1: 140/82 Code : 8480-6 BMI: 30.4 Code : 40374-4 Heart Rate 1 : 77 bpm Height: 6'2" SpO2: 93% Weight: 237 lbs 01/20/2016 Blood Pressure 1: 142/80 Code : 8480-6 BMI: 31.2 Code : 66101-5 Heart Rate 1 : 64 bpm Height: 6'2" SpO2: 93% Weight: 243 lbs 12/16/2015 Blood Pressure 1: 138/88 Code : 8480-6 BMI: 30.3 Code : 52888-0 Heart Rate 1 : 62 bpm Height: 6'2" SpO2: 97% Weight: 236 lbs 12/09/2015 Blood Pressure 1: 198/92 Code : 8480-6 Blood Pressure 1: 152/70 Code: 8480-6 Blood Pressure 1: 148/80 Code: 8480-6 BMI: 30.3 Code: 64709-8 Heart Rate 1: 84 bpm Height: 6'2" Weight: 236 lbs 11/25/2015 Blood Pressure 1: 160/80 Code : 8480-6 BMI: 30.2 Code : 31863-8 Heart Rate 1 : 68 bpm Height: 6'2" SpO2: 96% Weight: 235 lbs 09/02/2015 Blood Pressure 1: 122/64 Code : 8480-6 BMI: 30.2 Code : 23619-7 Heart Rate 1 : 86 bpm Height: 6'2" SpO2: 98% Weight: 235 lbs 08/05/2015 Blood Pressure 1: 130/70 Code : 8480-6 Heart Rate 1: 81 bpm SpO2: 97% Weight: 233 lbs 07/25/2015 Blood Pressure 1: 142/80 Code : 8480-6 BMI: 30.0 Code : 39358-2 Heart Rate 1 : 74 bpm Height: 6'2" SpO2: 95% Weight: 234 lbs 06/03/2015 Blood Pressure 1: 150/68 Code : 8480-6 BMI: 30.0 Code : 49178-3 Heart Rate 1 : 66 bpm Height: 6'2" SpO2: 96% Weight: 234 lbs 03/19/2015 Blood Pressure 1: 154/78 Code : 8480-6 BMI: 30.3 Code : 03784-2 Heart Rate 1 : 63 bpm Height: 6'2" SpO2: 96% Weight: 236 lbs 03/04/2015 Blood Pressure 1: 124/68 Code : 8480-6 BMI: 30.2 Code : 25513-0 Heart Rate 1 : 60 bpm Height: 6'2" SpO2: 97% Weight: 235 lbs 02/20/2015 Blood Pressure 1: 160/84 Code : 8480-6 BMI: 30.8 Code : 34244-3 Heart Rate 1 : 79 bpm Height: 6'2" SpO2: 96% Weight: 240 lbs 02/11/2015 Blood Pressure 1: 170/102 Code: 8480-6 BMI: 31.1 Code: 53503-1 Heart Rate 1: 81 bpm Height: 6'2" SpO2: 96% Weight: 242 lbs 01/28/2015 Blood Pressure 1: 174/80 Code : 8480-6 Blood Pressure 2: 168/74 Code: 8480-6 BMI: 31.2 Code: 54567-7 Heart Rate 1: 74 bpm Height: 6'2" SpO2: 97% Weight: 243 lbs 10/01/2014 Blood Pressure 1: 152/84 Code : 8480-6 BMI: 30.4 Code : 92405-7 Heart Rate 1 : 80 bpm Height: 6'2" SpO2: 96% Weight: 237 lbs 05/30/2014 Blood Pressure 1: 140/82 Code : 8480-6 BMI: 30.6 Code : 29324-9 Heart Rate 1 : 86 bpm Height: 6'2" Weight: 238 lbs 02/28/2014 Blood Pressure 1: 152/86 Code : 8480-6 BMI: 29.5 Code : 30302-3 Heart Rate 1 : 64 bpm Height: 6'2" Weight: 230 lbs 01/23/2014 Blood Pressure 1: 142/68 Code : 8480-6 BMI: 29.7 Code : 53133-3 Heart Rate 1 : 80 bpm Height: 6'2" Weight: 231 lbs 12/26/2013 Blood Pressure 1: 150/72 Code : 8480-6 BMI: 29.3 Code : 85465-6 Heart Rate 1 : 60 bpm Height: 6'2" Respiratory Rate: 16 bpm Weight: 228 lbs 8 oz 10/24/2013 Blood Pressure 1: 140/84 Code : 8480-6 Heart Rate 1: 60 bpm 10/17/2013 Blood Pressure 1: 166/72 Code : 8480-6 BMI: 28.8 Code : 62708-9 Heart Rate 1 : 68 bpm Height: 6'2" Weight: 224 lbs 07/24/2013 Blood Pressure 1: 112/64 Code : 8480-6 BMI: 29.1 Code : 57507-3 Heart Rate 1 : 80 bpm Height: 6'2" Weight: 227 lbs 04/24/2013 Blood Pressure 1: 130/74 Code : 8480-6 BMI: 28.9 Code : 05540-2 Heart Rate 1 : 76 bpm Height: 6'2" Weight: 225 lbs 6 oz 03/20/2013 Blood Pressure 1: 150/70 Code : 8480-6 BMI: 29.7 Code : 39471-5 Heart Rate 1 : 76 bpm Height: 6'2" Temperature: 37.0 (C) / 98.6 (F) Weight: 231 lbs 01/19/2013 Blood Pressure 1: 150/78 Code : 8480-6 BMI: 30.2 Code : 33884-9 Heart Rate 1 : 84 bpm Height: 6'2" Weight: 235 lbs 12/26/2012 Blood Pressure 1: 142/78 Code : 8480-6 BMI: 29.9 Code : 39604-3 Heart Rate 1 : 84 bpm Height: 6'2" Weight: 233 lbs 12/21/2012 Blood Pressure 1: 142/80 Code : 8480-6 BMI: 29.5 Code : 56685-1 Heart Rate 1 : 80 bpm Height: 6'2" Weight: 230 lbs 11/30/2012 Blood Pressure 1: 146/78 Code : 8480-6 BMI: 29.4 Code : 93287-2 Heart Rate 1 : 80 bpm Height: 6'2" Weight: 229 lbs 05/30/2012 Blood Pressure 1: 150/74 Code : 8480-6 BMI: 29.4 Code : 08333-3 Heart Rate 1 : 76 bpm Height: 6'2" Respiratory Rate: 16 bpm Weight: 229 lbs 04/26/2012 Blood Pressure 1: 124/64 Code : 8480-6 Heart Rate 1: 90 bpm SpO2: 98% Temperature: 36.7 (C) / 98.1 (F) Weight: 04/14/2012 Blood Pressure 1: 150/88 Code : 8480-6 Blood Pressure 2: 150/90 Code: 8480-6 BMI: 29.4 Code: 48969-2 Heart Rate 1: 72 bpm Height: 6'2" [...] Code : 8480-6 BMI: 28.9 Code : 36763-3 Heart Rate 1 : 64 bpm Height: 6'2" Weight: 225 lbs 08/05/2011 Blood Pressure 1: 142/72 Code : 8480-6 BMI: 29.3 Code : 77304-0 Heart Rate 1 : 80 bpm Height: 6'2" Weight: 228 lbs 07/01/2011 Blood Pressure 1: 136/70 Code : 8480-6 BMI: 29.2 Code : 72170-2 Heart Rate 1 : 68 bpm Height: 6'2" Respiratory Rate: 16 bpm Weight: 227 lbs 8 oz Functional Status No Functional Status data History of Present Illness Symptom Name Status Result Effective Date Notes Quality chronic 05/04 None Onset and Resolution ongoing 05/04/2018 None Significant Medical Conditions surgery 05/04/2018 None Alleviating Factors medication 05/04/2018 None Quality primary hypertension 05/04/2018 None Onset and Resolution ongoing 05/04/2018 None Onset of Symptom during adulthood 05/04/2018 None Blood Pressure Values not checking blood pressure at home 05/04/2018 None Alleviating Factors medication 05/04/2018 None Pertinent Findings dizziness 05/04/2018 -he did have one day Pertinent Findings Denies dyspnea 05/04/2018 None Pertinent Findings edema 05/04/2018 -wears compression socks Quality insulin dependent 05/04/2018 None Alleviating Factors medication 05/04/2018 None Exacerbating Factors diet 05/04/2018 None Pertinent Findings Denies dizziness 05/04/2018 None Pertinent Findings Denies dyspnea 05/04/2018 None Pertinent Findings Denies nausea 05/04/2018 -frequently has heartburn Quality chronic 05/04 None Quality chronic 05/04 None Test results Pt checking blood glucose readings, did not bring results to clinic 05/04/2018 None Glucose monitoring Denies daily 05/04/2018 None Quality chronic 05/04 None Onset and Resolution ongoing 05/04/2018 None Alleviating Factors laxatives 05/04/2018 None Annual Medicare Wellness Exam Alcohol Use drinks 0-1 days per week 02/17/2018 None Annual Medicare Wellness Exam Alcohol Use drinks 1 drinks per day 02/17/2018 None Annual Medicare Wellness Exam Alcohol Use more than 5 drinks on one occasion no 02/17/2018 None Annual Medicare Wellness Exam Aspirin Use no 02/17/2018 None Annual Medicare Wellness Exam Blood Glucose (self reported) has a diagnosis of diabetes 02/17/2018 None Annual Medicare Wellness Exam Blood Pressure (self reported ) diagnosed with hypertension 02/17/2018 None Annual Medicare Wellness Exam Cholesterol (self reported) desireable (below 200) 02/17/2018 None Annual Medicare Wellness Exam Hemaglobin A-1C (self reported ) borderline high (7) 02/17/2018 None Annual Medicare Wellness Exam Hours of Sleep 6-8 02/17/2018 None Annual Medicare Wellness Exam Interaction with Friends no 02/17/2018 None Annual Medicare Wellness Exam Describe Your Health fair 02/17/2018 None Annual Medicare Wellness Exam Exercise Habits does not exercise 02/17/2018 None Annual Medicare Wellness Exam Life Satisfaction satisfied 02/17/2018 None Annual Medicare Wellness Exam Motor Vehicle Safety always fastens seat belt: yes 02/17/2018 None Annual Medicare Wellness Exam Motor Vehicle Safety drives after drinking: no 02/17/2018 None Annual Medicare Wellness Exam Motor Vehicle Safety rides with someone who has been drinking: no 02/17 None Annual Medicare Wellness Exam Smoking and Tobacco Use non smoker 02/17/2018 None Annual Medicare Wellness Exam Sun Exposure protects skin when outdoors: yes-hat 02/17/2018 None Annual Medicare Wellness Exam Depression (last 6 months) some of the time 02/17/2018 None Annual Medicare Wellness Exam Depression or Hopelessness some of the time 02/17/2018 None Annual Medicare Wellness Exam Handling Stress usually denisa effectively 02/17/2018 None Annual Medicare Wellness Exam Stress daily 02/17/2018 -frustrated with his Parkinson's Annual Medicare Wellness Exam Interests & Pleasure most of the time 02/17/2018 None Annual Medicare Wellness Exam Social & Emotional Support always 02/17/2018 None Annual Medicare Wellness Exam Nutrition servings of fried food / high fat foods per day: 0-1 2017 None Annual Medicare Wellness Exam Nutrition servings of high fiber / whole grain per day: 2 02/17/2018 None Annual Medicare Wellness Exam Nutrition servings of vegetables / fruit per day: 2 02/17/2018 None hypothyroid Location at the level of the thyroid 01/11/2018 None hypothyroid Quality chronic 01/11/2018 None hypothyroid Onset and Resolution ongoing 01/11/2018 None hypothyroid Frequency of Episodes unchanged 01/11/2018 None hypothyroid Significant Medical Conditions surgery 01/11/2018 None hypothyroid Triggers no known associated factors 01/11/2018 None hypothyroid Alleviating Factors medication 01/11/2018 None hypertension Quality primary hypertension 01/11/2018 None hypertension Onset and Resolution ongoing 01/11/2018 None hypertension Onset of Symptom during adulthood 01/11/2018 None hypertension Blood Pressure Values not checking blood pressure at home 01/11/2018 None hypertension Alleviating Factors medication 01/11/2018 None hypertension Pertinent Findings Denies anxiety 01/11/2018 None hypertension Pertinent Findings Denies decreased energy 01/11/2018 None hypertension Pertinent Findings Denies dizziness 01/11/2018 None hypertension Pertinent Findings Denies dyspnea 01/11/2018 None hypertension Pertinent Findings edema 01/11/2018 None diabetes mellitus Quality insulin dependent 01/11/2018 None diabetes mellitus Alleviating Factors medication 01/11/2018 None diabetes mellitus Exacerbating Factors diet 01/11/2018 None diabetes mellitus Pertinent Findings Denies dizziness 01/11/2018 None diabetes mellitus Pertinent Findings Denies dyspnea 01/11/2018 "once in a while " diabetes mellitus Pertinent Findings Denies nausea 01/11/2018 None gait abnormality Quality intermittent 01/11/2018 None diabetes mellitus Glucose monitoring daily 01/11/2018 None gait abnormality Onset of Symptom 1 months ago 01/11/2018 None hypothyroid Location at the level of the thyroid 09/16/2017 None hypothyroid Quality chronic 09/16/2017 None hypothyroid Onset and Resolution ongoing 09/16/2017 None hypothyroid Frequency of Episodes unchanged 09/16/2017 None hypothyroid Significant Medical Conditions surgery 09/16/2017 None hypothyroid Triggers no known associated factors 09/16/2017 None hypothyroid Alleviating Factors medication 09/16/2017 None hypertension Quality primary hypertension 09/16/2017 None hypertension Onset and Resolution ongoing 09/16/2017 None hypertension Onset of Symptom during adulthood 09/16/2017 None hypertension Blood Pressure Values not checking blood pressure at home 09/16/2017 None hypertension Alleviating Factors medication 09/16/2017 None hypertension Pertinent Findings Denies anxiety 09/16/2017 None hypertension Pertinent Findings Denies decreased energy 09/16/2017 None hypertension Pertinent Findings Denies dizziness 09/16/2017 None hypertension Pertinent Findings Denies dyspnea 09/16/2017 None hypertension Pertinent Findings edema 09/16/2017 None diabetes mellitus Quality insulin dependent 09/16/2017 None diabetes mellitus Alleviating Factors medication 09/16/2017 None diabetes mellitus Exacerbating Factors diet 09/16/2017 None diabetes mellitus Pertinent Findings Denies dizziness 09/16/2017 None diabetes mellitus Pertinent Findings Denies dyspnea 09/16/2017 "once in a while " diabetes mellitus Pertinent Findings Denies nausea 09/16/2017 None rash Quality pruritic 07/13/2017 None rash Onset of Symptom 1 days ago 07/13/2017 None rash Pertinent Findings Denies fever 07/13/2017 None rash Pertinent Findings Denies pain 07/13/2017 None rash Pertinent Findings Denies tenderness 07/13/2017 None hypothyroid Location at the level of the thyroid 07/13/2017 None hypothyroid Quality chronic 07/13/2017 None hypothyroid Onset and Resolution ongoing 07/13/2017 None hypothyroid Frequency of Episodes unchanged 07/13/2017 None hypothyroid Significant Medical Conditions surgery 07/13/2017 None hypothyroid Triggers no known associated factors 07/13/2017 None hypothyroid Alleviating Factors medication 07/13/2017 None hypertension Quality primary hypertension 07/13/2017 None hypertension Onset and Resolution ongoing 07/13/2017 None hypertension Onset of Symptom during adulthood 07/13/2017 None hypertension Blood Pressure Values not checking blood pressure at home 07/13/2017 None hypertension Alleviating Factors medication 07/13/2017 None hypertension Pertinent Findings edema 07/13/2017 None diabetes mellitus Quality insulin dependent 07/13/2017 None diabetes mellitus Alleviating Factors medication 07/13/2017 None diabetes mellitus Exacerbating Factors diet 07/13/2017 None diabetes mellitus Pertinent Findings Denies dizziness 07/13/2017 None diabetes mellitus Pertinent Findings Denies dyspnea 07/13/2017 "once in a while " diabetes mellitus Pertinent Findings Denies nausea 07/13/2017 None hypertension Pertinent Findings Denies dyspnea 07/13/2017 None hypertension Pertinent Findings Denies dizziness 07/13/2017 None hypertension Pertinent Findings Denies anxiety 07/13/2017 None hypertension Pertinent Findings Denies decreased energy 07/13/2017 None rash Quality improving 07/13/2017 None rash Onset and Resolution resolved 07/13/2017 None rash Quality acute None rash Quality flaking [...] cough Alleviating Factors OTC medications 09/10/2016 jazmín estelleer plus cough Pertinent Findings chest discomfort 09/10/2016 [...] doing physical therapy for parkinson's disease at [facility] diabetes mellitus Alleviating Factors insulin 01/19/2013 [...] data Encounters Encounter Performer Location Codes Date ([id number]) 69699 EST. PATIENT, LEVEL IV Diagnosis: Parkinson's disease[ICD10: G20] Diagnosis: Atrophy of thyroid (acquired)[ICD10: E03.4] Diagnosis: Slow transit constipation[ICD10: K59.01] Diagnosis: Type 2 diabetes mellitus with hyperglycemia[ICD10: E11.65] Diagnosis: Essential (primary) hypertension[ICD10: I10] [facility] CPT-4: 20823 05/04/2018 ([id number]) 31760 EST. 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 PATIENT, LEVEL IV Diagnosis: Atrophy of thyroid (acquired)[ICD10: E03.4] Diagnosis: Type 2 diabetes mellitus with hyperglycemia[ICD10: E11.65] Diagnosis: Essential (primary) hypertension[ICD10: I10] Diagnosis: Parkinson's disease[ICD10: G20] Yoli Medley MD, [facility] CPT- 4: 58182 09/16/2017 ([id number]) 94729 EST. PATIENT, LEVEL IV Diagnosis: Essential (primary) hypertension[ICD10: I10] Diagnosis: Type 2 diabetes mellitus with hyperglycemia[ICD10: E11.65] Diagnosis: Atrophy of thyroid (acquired)[ICD10: E03.4] Yoli Medley MD, [facility] CPT-4: 02304 07/13/2017 ([id number]) 56668 EST. PATIENT, LEVEL IV Diagnosis: Essential (primary) hypertension[ICD10: I10] Diagnosis: Localized edema[ICD10: R60.0] Diagnosis: Atrophy of thyroid (acquired)[ICD10: E03.4] Diagnosis: Type 2 diabetes mellitus without complications[ICD10: E11.9] Yoli Medley MD, [facility] CPT-4: 66754 05/13/2017 13457 EST. PATIENT, LEVEL III Diagnosis: Rash and other nonspecific skin eruption[ICD10: R21] Bonita Medley MD, [facility] CPT-4: 53359 04/28/2017 43478 EST. PATIENT, LEVEL IV Diagnosis: Essential (primary) hypertension[ICD10: I10] Diagnosis: Atrophy of thyroid (acquired)[ICD10: E03.4] Diagnosis: Type 2 diabetes mellitus without complications[ICD10: E11.9] Bonita Medley MD , [facility] CPT-4: 76643 04/15/2017 ([id number]) 93873 EST. PATIENT, LEVEL IV Diagnosis: Type 2 diabetes mellitus with hyperglycemia[ICD10: E11.65] Diagnosis: Essential (primary) hypertension[ICD10: I10] Diagnosis: Hypothyroidism, unspecified[ICD10: E03.9] Ginny Medley MD, [facility] CPT-4: 39375 02/04/2017 ([id number]) 94975 EST. PATIENT, LEVEL III Diagnosis: Essential (primary) hypertension[ICD10: I10] Diagnosis: Hypothyroidism, unspecified[ICD10: E03.9] Ginny Medley MD, [facility] CPT-4: 81029 10/08/2016 ([id number]) 08554 EST. PATIENT, LEVEL III Diagnosis: Allergic rhinitis due to pollen[ICD10: J30.1] Diagnosis: Hypothyroidism, unspecified[ICD10: E03.9] Ginny Medley MD, [facility] CPT-4: 14795 09/10/2016 ([id number]) 85358 EST. 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 PATIENT, LEVEL IV Diagnosis: Abdominal distension (gaseous)[ICD10: R14.0] Diagnosis: Cough[ICD10: R05] Diagnosis: Acute bronchitis, unspecified[ICD10: J20.9] Diagnosis: Essential (primary) hypertension[ICD10: I10] Ginny Medley MD, [facility] CPT-4: 61112 08/06/2016 ([id number]) 48306 EST. PATIENT, LEVEL III Diagnosis: Cough[ICD10: R05] Diagnosis: Acute upper respiratory infection, unspecified[ICD10: J06.9] Ginny Medley MD, [facility] CPT-4: 69901 07/30/2016 ([id number]) 62237 EST. PATIENT, LEVEL IV Diagnosis: Type 2 diabetes mellitus with hyperglycemia[ICD10: E11.65] Diagnosis: Essential (primary) hypertension[ICD10: I10] Diagnosis: Parkinson's disease[ICD10: G20] Diagnosis: Localized edema[ICD10: R60.0] Ginny Medley MD, [facility] CPT-4: 42692 06/22/2016 ([id number]) 99251 EST. PATIENT, LEVEL IV Diagnosis: Essential (primary) hypertension[ICD10: I10] Diagnosis: Type 2 diabetes mellitus with hyperglycemia[ICD10: E11.65] Diagnosis: Hypo-osmolality and hyponatremia[ICD10: E87.1] Diagnosis: Hesitancy of micturition[ICD10: R39.11] Ginny Medley MD, [facility] CPT-4: 45507 04/27/2016 [id number]) 48100 EST. PATIENT, LEVEL III Diagnosis: Essential (primary) hypertension[ICD10: I10] Diagnosis: Localized edema[ICD10: R60.0] Ginny Medley MD, [facility] CPT-4: 27786 03/23/2016 ([id number]) 22127 EST. PATIENT, LEVEL IV Diagnosis: Low back pain[ICD10: M54.5] Diagnosis: Hypo-osmolality and hyponatremia[ICD10: E87.1] Diagnosis: Essential (primary) hypertension[ICD10: I10] Diagnosis: Localized edema[ICD10: R60.0] Diagnosis: Type 2 diabetes mellitus with hyperglycemia[ICD10: E11.65] Ginny Medley MD, [facility] CPT-4: 38032 01/20/2016 ([id number]) 83297 EST. PATIENT, LEVEL III Diagnosis: Type 2 diabetes mellitus with hyperglycemia[ICD10: E11.65] Diagnosis: Essential (primary) hypertension[ICD10: I10] Diagnosis: Hypo-osmolality and hyponatremia[ICD10: E87.1] Ginny Medley MD, [facility] CPT-4: 37194 12/16/2015 ([id number]) 22423 EST. PATIENT, LEVEL III Diagnosis: Essential (primary) hypertension[ICD10: I10] Diagnosis: Hypo-osmolality and hyponatremia[ICD10: E87.1] Ginny Medley MD, [facility] CPT-4: 24289 12/09/2015 ([id number]) 61623 EST. PATIENT, LEVEL IV Diagnosis: Essential (primary) hypertension[ICD10: I10] Diagnosis: Type 2 diabetes mellitus with hyperglycemia[ICD10: E11.65] Diagnosis: Parkinson's disease[ICD10: G20] Ginny Medley MD, [facility] CPT-4: 95308 11/25/2015 19910 EST. PATIENT, LEVEL III Diagnosis: Localized edema[ICD10: R60.0] Diagnosis: Essential (primary) hypertension[ICD10: I10] Bonita Medley MD, [facility] CPT-4: 23713 09/02/2015 ([id number]) 77600 EST. PATIENT, LEVEL III Diagnosis: Localized edema[ICD10: R60.0] Ginny Medley MD, [facility] CPT-4: 92076 08/05/2015 ([id number]) 12613 EST. PATIENT, LEVEL III Diagnosis: Localized edema[ICD10: R60.0] Diagnosis: Unspecified open wound, right ankle, initial encounter[ICD10: S91.001A] Ginny Medley MD, [facility] CPT-4: 88626 ([id number]) 63278 EST. PATIENT, LEVEL IV Diagnosis: Essential (primary) hypertension[ICD10: I10] Diagnosis: Localized edema[ICD10: R60.0] Diagnosis: Low back pain[ICD10: M54.5] Diagnosis: Type 2 diabetes mellitus with hyperglycemia[ICD10: E11.65] Ginny Medley MD, [facility] CPT-4: 15026 06/03/2015 ([id number]) Miscellaneous no charge Diagnosis: Encounter for other specified aftercare[ICD10: Z51.89] Yoli Medley MD, [facility] CPT-4: 62371 03/20/2015 20877 EST. PATIENT, LEVEL IV Diagnosis: Cutaneous abscess of chest wall[ICD10: L02.213] Yoli Medley MD, [facility] CPT-4: 85174 03/19/2015 ([id number]) 24378 EST. PATIENT, LEVEL III Diagnosis: Edema, unspecified[ICD10: R60.9] Yoli Medley MD, [facility] CPT-4: 11652 03/04/2015 61725 EST. PATIENT, LEVEL III Diagnosis: Edema, unspecified[ICD10: R60.9] Diagnosis: Unspecified open wound, right ankle, initial encounter[ICD10: S91.001A] Yoli Medley MD, [facility] CPT-4: 16842 07/2014 ([id number]) 48213 EST. PATIENT, LEVEL III Diagnosis: Edema, unspecified[ICD10: R60.9] Yoli Medley MD, [facility] CPT-4: 20750 02/11/2015 ([id number]) 43517 EST. PATIENT, LEVEL IV Diagnosis: Type 2 diabetes mellitus with hyperglycemia[ICD10: E11.65] Diagnosis: Essential (primary) hypertension[ICD10: I10] Diagnosis: Edema, unspecified[ICD10: R60.9] Yoli Medley MD [facility] CPT-4: 04662 01/28/2015 ([id number]) 30774 EST. PATIENT, LEVEL IV Diagnosis: DIABETES TYPE II[ICD9: 250.00] Diagnosis: ESSENTIAL HYPERTENSION[ICD9: 401.9] Diagnosis: Parkinsons disease[ICD9: 332.0] Yoli Medley MD [facility] CPT- 4: 21710 10/01/2014 ([id number]) 70400 EST. PATIENT, LEVEL IV Diagnosis: ESSENTIAL HYPERTENSION[ICD9: 401.9] Diagnosis: DIABETES TYPE II[ICD9: 250.00] Diagnosis: Parkinsons disease[ICD9: 332.0] Yoli Medley MD [facility] CPT- 4: 76751 05/30/2014 ([id number]) 80810 EST. PATIENT, LEVEL IV Diagnosis: DIABETES TYPE II[ICD9: 250.00] Diagnosis: ESSENTIAL HYPERTENSION[ICD9: 401.9] Diagnosis: Back pain[ICD9: 724.5] Yoli Medley MD [facility] CPT-4: 41534 02/28/2014 ([id number]) 57833 EST. PATIENT, LEVEL III Diagnosis: ESOPHAGEAL REFLUX[ICD9: 530.81] Diagnosis: Esophageal ulcer[ICD9: 530.20] Yoli Medley MD [facility] CPT- 4: 25509 01/23/2014 ([id number]) 63967 EST. PATIENT, LEVEL IV Diagnosis: ESOPHAGEAL REFLUX[ICD9: 530.81] Diagnosis: ESSENTIAL HYPERTENSION[ICD9: 401.9] Yoli Medley MD [facility] CPT-4: 89363 12/26/2013 ([id number]) 99122 EST. PATIENT, LEVEL IV Diagnosis: Diabetes type 2, uncontrolled[ICD9: 250.02] Diagnosis: ESSENTIAL HYPERTENSION[ICD9: 401.9] Diagnosis: Back pain[ICD9: 724.5] Diagnosis: ELEVATED PSA[ICD9: 790.93] Yoli Medley MD [facility] CPT- 4: 99827 10/17/2013 ([id number]) 64750 EST. PATIENT, LEVEL IV Diagnosis: DIABETES TYPE II[SNOMED: 004713574] Diagnosis: ESSENTIAL HYPERTENSION[SNOMED: 56242111] Diagnosis: Sleep apnea[ICD9: 780.57] Yoli Medley MD [facility] CPT-4: 24054 07/24/2013 ([id number]) 33302 EST. PATIENT, LEVEL IV Diagnosis: DIABETES TYPE II[SNOMED: 671439078] Diagnosis: ESSENTIAL HYPERTENSION[SNOMED: 86792542] Diagnosis: HYPERLIPIDEMIA[ICD9: 272.4] Yoli Medley MD [facility] CPT- 4: 33879 04/24/2013 ([id number]) 00563 EST. PATIENT, LEVEL III Diagnosis: DIABETES TYPE II[SNOMED: 113275922] Yoli Medley MD [facility] CPT-4: 29176 03/20/2013 ([id number]) 43855 EST. PATIENT, LEVEL III Diagnosis: DM W/O COMPLICATION TYPE II, UNCONTROLLED[SNOMED: 57910254] Yoli Medley MD [facility] CPT-4: 59373 01/19/2013 ([id number]) 47592 EST. PATIENT, LEVEL III Diagnosis: DM W/O COMPLICATION TYPE II, UNCONTROLLED[SNOMED: 89775526] Yoli Medley MD [facility] CPT-4: 74587 12/21/2012 ([id number]) 98323 EST. PATIENT, LEVEL IV Diagnosis: DM W/O COMPLICATION TYPE II, UNCONTROLLED[SNOMED: 71298119] Diagnosis: Parkinsons disease[ICD9: 332.0] Diagnosis: Back pain[ICD9: 724.5] Diagnosis: Gait instability[ICD9: 781.2] Yoli Medley MD, [facility] CPT- 4: 17036 11/30/2012 ([id number]) 60015 EST. PATIENT, LEVEL IV Diagnosis: ESSENTIAL HYPERTENSION[SNOMED: 79397169] Diagnosis: Abdominal pain[ICD9: 789.00] Diagnosis: DIABETES TYPE II[SNOMED: 944256850] Yoli Medley MD [facility] CPT-4: 12698 05/30/2012 ([id number]) 96730 EST. PATIENT, LEVEL III Diagnosis: Gastroenteritis[ICD9: 558.9] Ginny Medley MD, [facility] CPT-4: 85992 04/26/2012 [id number]) 91659 EST. PATIENT, LEVEL IV Diagnosis: ESSENTIAL HYPERTENSION[SNOMED: 85441422] Diagnosis: DIABETES TYPE II[SNOMED: 717182394] Diagnosis: Claw toe[ICD9: 735.5] Yoli Medley MD, [facility] CPT-4: 39209 04/14/2012 ([id number]) 11755 EST. PATIENT, LEVEL III Diagnosis: Rash[ICD9: 782.1] Diagnosis: DERMATOPHYTOSIS OF FOOT[ICD9: 110.4] Ginny Medley MD, [facility] CPT-4: 77821 02/22/2012 [id number]) 62349 EST. PATIENT, LEVEL IV Diagnosis: DM W/O COMPLICATION TYPE II, UNCONTROLLED[SNOMED: 73740469] Diagnosis: ESSENTIAL HYPERTENSION[SNOMED: 19751614] Diagnosis: Constipation - functional[ICD9: 564.09] Diagnosis: Encounter for long-term (current) use of other high-risk medications[ ICD9: V58.69] Yoli Medley MD, [facility] CPT-4: 65625 01/13/2012 [id number]) [id number] EST. PATIENT, LEVEL IV Diagnosis: ESSENTIAL HYPERTENSION[SNOMED: 94318290] Diagnosis: DIABETES TYPE II[SNOMED: 410533637] Yoli Medley MD, [facility] CPT-4: 36448 09/02/2011 14733 EST. PATIENT, LEVEL IV Diagnosis: LUMBAGO[ICD9: 724.2] Diagnosis: Sacroiliitis[ICD9: 720.2] Yoli Medley MD, [facility] CPT-4: 02409 08/05/2011 [id number]) 86738 EST. PATIENT, LEVEL IV Diagnosis: ESSENTIAL HYPERTENSION[SNOMED: 93687333] Diagnosis: DIABETES TYPE II[SNOMED: 102475973] Diagnosis: Breast mass in male[ICD9: 611.72] Diagnosis: Chronic hyponatremia[ICD9: 276.1] Yoli Medley MD, [facility] CPT-4: 28085 07/01/2011 Plan of Care Planned Activity Notes Codes Status Date Visit Plan: Parkinson's Disease - pt has diagnosis of Parkinson's disease with movement disorder impinging upon daily activities. The pt is to be on sinemet as directed, and medications to be adjusted as appropriate for alleviation of the impairment of ADL's. Pt or pt's family is to alert this office if symptoms worsen. Hypertension - well controlled - continue with current medications, continue with no added salt diet. Pt has been encouraged to exercise daily. The pt has been advised to call the office if there are any acute concerns about change in blood pressure readings at home. Diabetes Mellitus - controlled - per recent FSBS report and Hgba1c report. I have recommended for the patient to [...] directed otherwise. Check labs at regular intervals q 3 months or q 6 months based on previous levels of control. Constipation - due to Parkinson's disease and decreased activity - recommended patient to start on senna s daily and may increase up to Senna S bid if needed for persistent constipation. 05/04/2018 Appointment: Yoli Medley WPtel: [address] [place], [place] [address] (15 min) Moderate 05/04/2018 Patient Education: Patient Medication Summary Completed 05/04/2018 Patient Education: Diabetes Completed 05/04/2018 Patient Education: Hypertension Completed 05/04/2018 Visit Plan: Medicare Exam - today we [...] her DOPA paperwork for health care surrogate. 02/17/2018 Patient Education: Patient Medication Summary Completed 02/17/2018 Visit Plan: Diabetes Mellitus - controlled - [...] change in blood pressure readings at home. Hypothyroidism - pt with chronic hypothyroidism, continue with current medication, will monitor pt to signs or symptoms of lack of adequate supplementation. Pt is to continue with current dose of medication unless directed otherwise. Check labs at regular intervals wither q 3 months or q 6 months based on previous levels of control. Parkinson's disease - continue with current management. Peripheral neuropathy - check vitamin b12 and folate. Pt declined flu shot today 01/11/2018 App[facility]ment[phone] [facility] (15 min) Moderate 01/11/2018 Patient Education: Patient Medication Summary Completed 01/11/2018 [facility]ointment: [phone] [facility] [facility] - Annual Wellness Visit 10/18/2017 Visit Plan: Hypertension - well controlled - [...] are starting to become less controlled. Edema of lower legs - rx for zippered compression sock and for compression tube to leg prior to compression sock placement. Parkinson's disease - supportive care, no change to current treatment. 09/16/2017 Appointment: [facility] Med[facility] [phone] [facility] (15 min) Moderate 09/16/2017 Patient Education: Patient Medication Summary Completed 09/16/2017 Visit Plan: Diabetes Mellitus - controlled - [...] change in blood pressure readings at home. Hypothyroidism - pt with chronic hypothyroidism, continue with current medication, will monitor pt to signs or symptoms of lack of adequate supplementation. Pt is to continue with current dose of medication unless directed otherwise. Check labs at regular intervals wither q 3 months or q 6 months based on previous levels of control. 07/13/2017 Appointment: [facility] Med[facility] [phone] [facility] (15 min) Moderate 07/13/2017 Patient Education: Patient Medication Summary Completed 07/13/2017 Visit Plan: Hypertension - well controlled - [...] controlled. 05/13/2017 Appointment: Yoli Medley WPtel: [phone] [facility] (15 min) Moderate 05/13/2017 Patient Education: Patient Medication Summary Completed 05/13/2017 Visit Plan: Rash - The patient was instructed to use the ointment as per RX. The patient is to call for any change in symptoms, increase in size of the lesion, increase in pain, worsening redness, warmth, discharge. 04/28/2017 Appointment: Bonita Villa WPtel: [phone] [facility] (15 min) Moderate 04/28/2017 Patient Education: Patient Medication Summary Completed 04/28/2017 Appointment: Bonita Villa WPtel: [phone] [facility] (30 min) Complex 04/16/2017 Visit Plan: Hypertension [...] control. 04/15/2017 Appointment: Bonita Villa WPtel: [phone] [facility] (30 min) Complex 04/15/2017 Patient Education: Patient [...] of control. 02/04/2017 Appointment: Ginny Pearl WPtel: [address] [place], [place] [id number] [place] [address] (30 min) Complex 02/04/2017 Patient Education: Patient Medication Summary Completed 02/04/2017 Patient Education: Obesity Completed 02/04/2017 Patient Education: Patient Medication Summary Completed 02/01/2017 Appointment: Ginny Pearl WPtel: [address] [place], [place] [phone] [place] [address] (30 min) Complex 01/12/2017 Appointment: Ginny Pearl WPtel: [address] [place] [id number] [place] [address] (30 min) Complex 01/07/2017 Visit Plan: Medicare [...] surrogate. 10/12/2016 Appointment: Bon[facility] Villa [phone] [facility] [facility] - Annual Wellness Visit 10/12/2016 [...] months. 10/08/2016 Appointment: [facility] [phone] [phone] (30 min) [facility] 10/08/2016 Patient Education: Patient Medication Summary Completed 10/08/2016 Patient Education: Hypertension Completed 10/08/2016 Visit Plan: Allergies-continue daily anti histamine-call if symptoms do not improve or if any worse S/P total thyroidectomy-now on levothyroxine-repeat labs in 1 month 09/10/2016 Appointment: Ginny Pearl WPtel: [phone] (30 min) Complex 09/10/2016 Patient Education: Patient [...] Ford to do total thyroidectomy on Wednesday Yzdzsouedi-qeydc-ckqgqw-due to thyroid nodules-will monitor symptoms for now [...] Ford to do total thyroidectomy on Wednesday Sphfslcwph-fxjil-pyyoqg-due to thyroid nodules-will monitor symptoms for now 08/24/2016 Appointment: Ginny Pearl WPtel: [address] [place], [place] [phone] (30 min) Complex 08/24/2016 Patient Education: Patient Medication Summary Completed 08/24/2016 Visit Plan: Abdominal opahnpfn-alhgjgiwyvjy-BMP today Bronchitis - acute case of bronchitis [...] at home 08/06/2016 Appointment: Ginny Pearl WPtel: [address] [place], [place] [phone] (10 min) Simple 08/06/2016 Patient Education: Patient Medication Summary Completed 08/06/2016 Visit Plan: URI - Pt advised to increase fluids, vitamin C. Discussed natural and expected course of this diagnosis and need to alert me if symptoms do not follow expected course, or if any worse. RX sent to patient' s pharmacy. 07/30/2016 Appointment: Ginny Pearl [facility]Ptel[phone] (15 min) Moderate 07/30/2016 Patient Education: [...] worsen. 06/22/2016 Appointment: G[facility] Pearl [facility] [phone] [phone] [place] (30 min) Complex 06/22/2016 Patient [...] 04/27/2016 Appointment: Ginny Pearl [facility] [phone] [phone] (30 min) Complex 04/27/2016 Patient Education: [...] edema. 03/23/2016 Appointment: G[facility] Pearl [facility] [phone] [phone] (30 min) Complex 03/23/2016 Patient Education: [...] in the office. Refer for PT at [facility] Low back pain, generalized weakness, Parkinsons Low palpvt-ajrmrbr-lr need for increase sodium intake Hypertension - [...] A1C 01/20/2016 Appointment: Ginny Pearl WPtel: [phone] [facility] [place] [address] (30 min) Complex 01/20/2016 Patient Education: Patient Medication Summary Completed 01/20/2016 Patient Education: Obesity Completed 01/20/2016 Care Plan: Comp Metabolic Pending 01/20/2016 Care Plan: Cbc With Differential Pending 01/20/2016 Care Plan[facility] Pending 01/20/2016 Visit Plan: Diabetes Mellitus - [...] labs today 12/09/2015 Appointment: Ginny Pearl WPtel: [facility] [place] [address] (30 min) Complex 12/09/2015 Patient Education: Patient [...] symptoms worsen. 11/25/2015 Appointment: Ginny Pearl WPtel: [address] [place] [address] (30 min) Complex 11/25/2015 Patient Education: Patient [...] 03/26/2015 Care Plan: Referral Order SNOMED-CT : [id number] Ordered 03/26/2015 Patient Education: Patient Medication Summary [...] 02/20/2015 Care Plan: Referral Order SNOMED-CT : [id number] Ordered 02/20/2015 Visit Plan: Hypertension - uncontrolled [...] SPIRONOLACTONE 02/11/2015 Appointment: [phone] [facility] (15 min) Moderate 02/11/2015 Patient Education: Patient [...] pressure. 01/28/2015 Appointment: [facility] Med[phone] [facility] (15 min) Moderate 01/28/2015 Patient Education: Patient [...] worsen. 10/01/2014 Appointment: Yoli Medley WPtel: [phone] [facility] Follow up 10/01/2014 Patient Education: Patient Medication [...] worsen. 05/30/2014 Appointment: Yoli Medley WPtel: [phone] [facility] Follow up 05/30/2014 Patient Education: Patient Medication [...] 29. 01/23/2014 Appointment: [facility] Med[phone] [facility] Follow up 01/23/2014 Patient Education: Patient Medication [...] home. 12/26/2013 Appointment: Y[facility] Medley [facility]Ptel[facility] [phone] [facility] Follow up 12/26/2013 Patient Education: Patient Medication Summary Completed 12/26/2013 Patient Education: Hypertension Completed 12/26/2013 Visit Plan: Wound Instructions - Pt was instruced to keep the wound clean, wash with antibacterial soap, use triple antibiotic ointment, call if redness, pustular drainage, or any other acute conerns. 10/24/2013 Appointment: Ginny Pearl [facility] [phone] [facility] Surgical Procedure 10/24/2013 Patient Education: Patient [...] lesions. 10/17/2013 Appointment: Yoli Medley WPtel: [phone] [facility] Follow up 10/17/2013 Patient Education: Patient [...] like to have his Oxygen company - [employer] - help with arranging oxygen when he is in [facility]. 07/24/2013 Appointment: Yoli Medley [facility]Ptel[facility] [phone] [facility] Follow up 07/24/2013 Patient Education: Patient Medication Summary Completed 07/24/2013 Patient Education: Hypertension Completed 07/24/2013 Appointment: [facility] Pearl [facility] [phone] [phone] Lab Draw 05/05/2013 Patient Education: Patient Medication Summary Completed 05/05/2013 Patient Education: Hypertension Completed 05/05/2013 Appointment: [facility] Med[facility]el[facility] [phone] [facility] Follow up 05/01/2013 Visit Plan: Diabetes Mellitus [...] UNITS DAILY. 01/19/2013 Appointment: Yoli Medley [facility]Ptel[facility] [phone] [facility] Follow up 01/19/2013 Patient Education: Patient Medication Summary Completed 01/19/2013 Visit Plan: PH-nwmembao-bvfdxitdqyp today in the office- wound Instructions - Pt was instruced to keep the wound clean, wash with antibacterial soap, use triple antibiotic ointment, call if redness, pustular drainage, or any other acute conerns. 12/26/2012 Appointment: Ginny Pearl [facility]el[facility] [phone] [phone] [place] Other 12/26/2012 Patient Education: Patient Medication Summary [...] glucose. 12/21/2012 Appointment: Yoli Medley [facility]Ptel[facility] [phone] [facility] [place] Follow up 12/21/2012 Patient Education: Patient Medication Summary Completed 12/21/2012 Visit Plan: Parkinsons disease - rx for sinemet 25/100mg 1/ 2 pill in morning and 1/2 pill in evening, pt to let us know if the symptoms improve. Referral to Miguel at [facility] for gait instability. Diabetes Mellitus - [...] and gait instability - recommended christina at [facility] - continue with back brace as it offers support for the patient. 11/30/2012 Appointment: Yoli Medley [facility]Ptel[facility] [phone] [facility] [place] Follow up 11/30/2012 Patient Education: Patient [...] previously. 05/30/2012 Appointment: Y[facility] Med[facility]Ptel[facility] [phone] [facility] 6 [facility] f/u Follow up 05/30/2012 Patient [...] to seek support for his arches via physical sciences professor christina and perhaps arch supports to be custom made or custom fitted. 04/14/2012 Appointment: Yoli Medley [facility]Ptel[facility] [phone] [facility] Follow up 04/14/2012 Patient Education: Patient Medication Summary Completed 04/14/2012 Patient Education: Hypertension Completed 04/14/2012 Visit Plan: Rash- Discussed natural and expected course of this diagnosis and need to alert me if symtpoms do not follow expected course, or if any worse. RX sent to patient's pharmacy. 02/22/2012 Appointment: Ginny Pearl [facility]Ptel[facility] [phone] [phone] 02/22/2012 Patient Education: Patient Medication Summary [...] regimen. 01/13/2012 Appointment: Yoli Medley [facility]Ptel[facility] [phone] [facility] Established Patient Preventative visit 01/13/2012 Patient Education: [...] less controlled. 09/02/2011 Appointment: Yoli Medley WPtel: [facility] Other 09/02/2011 Patient Education: Patient Medication Summary Completed 09/02/2011 Patient Education: High Blood Pressure: Essential Hypertension Completed 2011 Appointment: Ginny Pearl WPtel: [phone] [phone] [place] [address] Lab Draw 08/06/2011 Patient Education: Patient Medication [...] bid. 08/05/2011 Appointment: Yoli Medley WPtel: [phone] [facility] Other 08/05/2011 Patient Education: Patient [...] home. 07/01/2011 Appointment: Yoli Medley [facility]Ptel[phone] [facility] Other 07/01/2011 Patient Education: Patient Medication Summary Completed 07/01/2011 Patient Education: High Blood Pressure: Essential Hypertension Completed 2011 Appointment: Yoli Medley WPtel: [phone] [facility] Lab Draw 06/25/2011 Patient Education: Patient Medication Summary Completed 06/25/2011 Patient Education: High Blood Pressure: Essential Hypertension Completed 2011 Referral: [facility] WPtel: [address] [facility] Referral Initiated Referral: Dangelo Ford Referral Initiated Instructions Comment . Hypertension - well controlled - continue with current medications, continue with no added salt diet. Pt has been encouraged to exercise daily. The pt has been advised to call the office if there are any acute concerns about change in blood pressure readings at home. Pcdgazwapwxryv-oninvpkv-iwscatx medication increased by Dr Ford and wants us to manage-repeat in 3 months. check labs recommend shingles vaccine . . Hypertension - continue with current medications, continue with no added salt diet. Pt has been encouraged to exercise daily. The pt has been advised to call the office if there are any acute concerns about change in blood pressure readings at home. Bilateral thyroid nodules-voice hoarseness-Dr Ford to do total thyroidectomy on Wednesday Tcbrxdrvve-zypbt-xfsnut-due to thyroid nodules-will monitor symptoms for now [...] and the assessment and plan. . Hypertension and Edema uncontrolled - Pt [...] stomach pain. Probiotic twice daily. . Hypertension - continue with current medications, [...] Lasix on Wednesday, and 2 lasix on morning. on WEDNESDAY start taking the new diuretic - SPIRONOLACTONE . Chronic hyponatremia - Increase fluids - [...] in blood pressure readings at home. . Wound Instructions - Pt was instruced to keep the wound clean, wash with antibacterial soap, use triple antibiotic ointment, call if redness, pustular drainage, or any other acute conerns. INCREASE LANTUS TO 16 UNITS DAILY.. Diabetes [...] control. INCREASE LANTUS TO 16 UNITS DAILY. INCREASE LANTUS TO 16 UNITS DAILY. Declined Procedure: (Q2036) FLULAVAL VACC, 3 YRS & >, IM; Declined Reason: Patient Declined. . Parkinson's Disease - pt has diagnosis of Parkinson's disease with movement disorder impinging upon daily activities. The pt is to be on sinemet as directed, and medications to be adjusted as appropriate for alleviation of the impairment of ADL's. Pt or pt's family is to alert this office if symptoms worsen. Hypertension - well controlled - continue with current medications, continue with no added salt diet. Pt has been encouraged to exercise daily. The pt has been advised to call the office if there are any acute concerns about change in blood pressure readings at home. Diabetes Mellitus - controlled - per recent FSBS report and Hgba1c report. I have recommended for the patient to [...] directed otherwise. Check labs at regular intervals q 3 months or q 6 months based on previous levels of control. Constipation - due to Parkinson's disease and decreased activity - recommended patient to start on senna s daily and may increase up to Senna S bid if needed for persistent constipation. . Diabetes Mellitus - controlled - per [...] plan. Pt is back to metformin bid. CALL IF YOUR BACK PAIN DOES NOT [...] in the office. Refer for PT at [facility]- Low back pain, generalized weakness, Parkinsons Low ixannt-wufbnnt-bo need for increase sodium intake Hypertension - [...] reduce peripheral edema. DM-check Hgb A1C . Diabetes Mellitus - Uncontrolled - per [...] that has ability to increase blood glucose. PATIENT IS TO CHECK BLOOD PRESSURE AND [...] are starting to become less controlled. Edema of lower legs - rx for zippered compression sock and for compression tube to leg prior to compression sock placement. Parkinson's disease - supportive care, no change to current treatment. . Hypertension - continue with current medications, continue with no added salt diet. Pt has been encouraged to exercise daily. The pt has been advised to call the office if there are any acute concerns about change in blood pressure readings at home. Bilateral thyroid nodules-voice hoarseness-Dr Ford to do total thyroidectomy on Wednesday Leyjqgnuik-srfxt-kscsrf-due to thyroid nodules-will monitor symptoms for now check labs recommend shingles vaccine . Medicare Exam - today we discussed [...] based on previous levels of control. . Diabetes Mellitus - controlled - per [...] change in blood pressure readings at home. Hypothyroidism - pt with chronic hypothyroidism, continue with current medication, will monitor pt to signs or symptoms of lack of adequate supplementation. Pt is to continue with current dose of medication unless directed otherwise. Check labs at regular intervals wither q 3 months or q 6 months based on previous levels of control. Parkinson's disease - continue with current management. Peripheral neuropathy - check vitamin b12 and folate. Pt declined flu shot today . Abscess/Cellulitis- left anterior chest -incision and drainage today in the office- The patient was instructed in appropriate wound care. The patient was instructed to use the antibiotic as per RX. The patient is to call for any change in symptoms, increase in size of the lesion, increase in pain. Return tomorrow for wound check and repacking the wound. TRY HYDROCODONE FOR PAIN INSTEAD OF THE [...] Lab work- CBC, CMP, BNP . Abdominal ohvkzvgx-jtvxqujzmvyu-GPO today Bronchitis - acute case of bronchitis [...] plan. HTN-no changes in medications-monitor at home Will start Zaroxolyn (water pill), will give [...] edema. Take Zaroxolyn with the spironolactone. . Allergies-continue daily anti histamine-call if symptoms [...] increase in pain, worsening redness, warmth, discharge. . Medicare Exam - today we discussed [...] DOPA paperwork for health care surrogate. . Parkinsons disease - rx for sinemet 25/100mg 1/2 pill in morning and 1/2 pill in evening, pt to let us know if the symptoms improve. Referral to Miguel at [facility] for gait instability. Diabetes Mellitus - [...] and gait instability - recommended eval at [facility] - continue with back brace as it offers support for the patient. daily anti histamine such as zyrtec kenalog [...] if symptoms not improved on this regimen. dr send a script for sucralfate liquid [...] like to have his Oxygen company - [employer] - help with arranging oxygen when he is in [facility]. . Diabetes Mellitus - controlled - per [...] change in blood pressure readings at home. Hypothyroidism - pt with chronic hypothyroidism, continue with current medication, will monitor pt to signs or symptoms of lack of adequate supplementation. Pt is to continue with current dose of medication unless directed otherwise. Check labs at regular intervals wither q 3 months or q 6 months based on previous levels of control. . IN-fjxbgvjq-fqqjsyhkrxe today in the office-wound Instructions - Pt [...] to seek support for his arches via physical sciences professor eval and perhaps arch supports to be [...]
--- OUTSIDE RECORDS SUMMARY | 2018-07-25 07:48 | XMS REPORT | CCD ---
Author Author [facility] Organization [facility] Address [address] [place] [address] Phone Care Team Providers Care [employer] E[employer]ctor Name Role Phone PP Unavailable CCM Unavailable Summary Purpose Interface Exchange Insurance Providers Payer name Policy type / Coverage type Covered republican ID Effective Begin Date Effective End Date WPS Medicare Part B Medicare Part B [id number] 2018 Unknown [facility] [employer] INSUR Medicare Part B [id number] Unknown [place] [facility] Medicare Part B [id number] 2018 Unknown Family history Runs in the family Diagnosis Age At Onset Diabetes Unknown Mother Diagnosis Age At Onset Diabetes Unknown Hypertension Unknown Alzheimer's Disease Unknown Stroke Unknown Father Diagnosis Age At Onset No Family Disease Entered N/A Grandmother Diagnosis Age At Onset Alzheimer's Disease Unknown Social History Social History Element Codes Description Effective Dates Number of children Unknown 4 2 in [place], 2 in [place] 02/17/[address]: 1718474 Former smoker Quit in 195202/17/2018 Alcohol history Unknown occasionally drinks alcohol 02/17/2018 Frequency of drinks SNOMED CT: 771246359 Drinks rarely 02/17/2018 Employment Unknown 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 Unknown Has never used illegal drugs 07/02/2011 Marital status Unknown 07/01/2011 Living arrangements Unknown House 07/01/2011 Allergies, Adverse Reactions, Alerts Substance Reaction Codes Entered Date Inactivated Date Status feldene rash RxNorm: 8356 02/17/2018 No Inactive Date Active levaquin Unknown 02/17/2018 No Inactive Date Active bactrim rash RxNorm: 153863 02/17/2018 No Inactive Date Active CEPHALOSPORINS Unknown [...] Start Date Stop Date Status Fill Instructions lisinopril 20 mg tablet RxNorm: 599933 TAKE 1 TABLET TWICE A DAY 07/11/2018 07/05/2019 Active Basdre Silver U-100 Insulin 100 unit/mL (3 mL) subcutaneous RxNorm: 8815761 24 Unit(s) SQ daily 24 Unit(s) SQ daily 06/16/2018 06/10/2019 Active glipizide 10 mg tablet RxNorm: 417911 1 Tablet(s) PO BID 201805/25/2019 Active Senna-S 8.6 mg-50 mg tablet RxNorm: 508052 1 Tablet(s) PO daily and may dose up to twice a day if needed for constipation 05/04/2018 01/28/2019 Active Contour Next Test Strips RxNorm: 1 test Miscellaneous daily 07/27/2019 Active metformin ER 500 mg tablet,extended release 24 hr RxNorm: 766071 Tablet(s) TAKE ONE TABLET BY MOUTH TWICE DAILY 05/02/2018 04/26/2019 Active levothyroxine 175 mcg tablet RxNorm: 295563 Tablet(s) TAKE 1 TABLET BY MOUTH ONCE DAILY WED-WED, 1/2 TAB ON WEDNESDAY AND Wednesday03/02/2018 No Stop Date Active potassium chloride ER 10 mEq tablet,extended release(part/ cryst) RxNorm: 5996433 2 Tablet(s) PO daily x 3 days, then 1 pill three times a week when taking the lasix 02/01/2018 05/31/2018 Inactive finasteride 5 mg tablet RxNorm: 135270 1 Tablet(s) PO daily 07/30/2018 Active [SAVINGS FOR UNINSURED PATIENTS -- BIN:564951, PCN: ASPROD1, Group: [id number], ID# [id number], Process claim through [employer], for questions: . THIS IS NOT INSURANCE.] levothyroxine 175 mcg tablet RxNorm: 757275 TAKE 1 TABLET BY MOUTH ONCE DAILY 02/01/2018 03/01/2018 Inactive Basaglar KwikPen U-100 Insulin 100 unit/mL (3 mL) subcutaneous RxNorm: 2148774 24 Unit(s) SQ daily 12/29/201706/15 Inactive Lasix 20 mg tablet RxNorm: 372314 TAKE 1 TABLET ONCE DAILY FOR 1 WEEK AND THEN 1 TABLET EVERY 3 DAYS THEREAFTER 12/06/2017 09/01/2018 Active clotrimazole 1 % topical cream RxNorm: 961327 1 Application TOP BID to feet 09/16/2017 No Stop Date Active levothyroxine 175 mcg tablet RxNorm: 296409 TAKE ONE TABLET BY MOUTH ONCE DAILY 08/03/2017 01/31/2018 Inactive Sinemet 25 mg-100 mg tablet RxNorm: 502871 Tablet(s) TAKE ONE TABLET BY MOUTH TWICE DAILY IN THE MORNING AND AT SUPPER 05/13/2017 05/07/2018 Inactive glipizide 10 mg tablet RxNorm: 527122 1 Tablet(s) PO BID 201705/30/2018 Inactive metformin ER 500 mg tablet,extended release 24 hr RxNorm: 206069 Tablet(s) TAKE ONE TABLET BY MOUTH TWICE DAILY 05/13/2017 05/01/2018 Inactive Basaglar KwikPen U-100 Insulin 100 unit/mL (3 mL) subcutaneous RxNorm: 6509233 24 Unit(s) SQ daily 05/13/201712/28 Inactive lisinopril 20 mg tablet RxNorm: 487373 Tablet(s) TAKE 1 TABLET BY MOUTH TWICE DAILY 05/13/2017 05/07/2018 Inactive finasteride 5 mg tablet RxNorm: 939024 1 Tablet(s) PO daily 11/08/2017 Inactive [SAVINGS FOR UNINSURED PATIENTS -- BIN:636031, PCN: ASPROD1, Group: [id number] , ID# [id number], Process claim through [facility], for questions: . THIS IS NOT INSURANCE.] levothyroxine 175 mcg tablet RxNorm: 520444 1 Tablet(s) PO daily 05/13/2017 02/16/2018 Inactive Lasix 20 mg tablet RxNorm: 430332 Tablet(s) TAKE 1 TABLET BY MOUTH ONCE DAILY FOR 1 WEEK AND THEN TAKE 1 TABLET BY MOUTH EVERY 3 DAYS THEREAFTER 05/13/2017 07/27/2017 Inactive Basaglar KwikPen 100 unit/mL (3 mL) subcutaneous RxNorm: 3273601 24 Unit(s) SQ daily 05/07/2017 05/12/2017 Inactive Lasix 20 mg tablet RxNorm: 198796 2 Tablet(s) PO daily x 3 days, then 1 pill three times a week thereafter 04/28/2017 No Stop Date Active triamcinolone acetonide 0.025 % topical cream RxNorm: 3572236 1 Application TOP BID 04/28/2017 02/16/2018 Inactive clotrimazole 1 % topical cream RxNorm: 556165 1 Application TOP BID 04/28/2017 09/15/2017 Inactive potassium chloride ER 10 mEq tablet,extended release(part/ cryst) RxNorm: 7175901 2 Tablet(s) PO daily x 3 days, then 1 pill three times a week when taking the lasix 04/28/2017 08/25/2017 Inactive Lasix 20 mg tablet RxNorm: 906002 Tablet(s) TAKE 1 TABLET BY MOUTH ONCE DAILY FOR 1 WEEK AND THEN TAKE 1 TABLET BY MOUTH EVERY 3 DAYS THEREAFTER 04/22/2017 05/12/2017 Inactive Lantus Solostar 100 unit/mL (3 mL) subcutaneous insulin pen RxNorm: 169910 24 Unit(s) SQ daily INJECT 24 UNITS DAILY OR DIRECTED 201605/06/2017 Inactive 1 box of 5 pens Basaglar KwikPen 100 unit/mL (3 mL) subcutaneous RxNorm: 6578475 24 Unit(s) SQ daily 03/02/2017 05/06/2017 Inactive Basaglar KwikPen 100 unit/mL (3 mL) subcutaneous RxNorm: 4256904 24 Unit(s) SQ daily 03/02/2017 03/01/2017 Inactive levothyroxine 175 mcg tablet RxNorm: 742242 1 Tablet(s) PO daily 02/02/2017 05/12/2017 Inactive Sinemet 25 mg-100 mg tablet RxNorm: 224060 TAKE ONE TABLET BY MOUTH TWICE DAILY IN THE MORNING AND AT SUPPER 12/30/2016 Inactive metformin ER 500 mg tablet,extended release 24 hr RxNorm: 854874 Tablet(s) TAKE ONE TABLET BY MOUTH TWICE DAILY 11/10/2016 05/12/2017 Inactive lisinopril 20 mg tablet RxNorm: 951264 Tablet(s) TAKE 1 TABLET BY MOUTH TWICE DAILY 11/10/2016 05/12/2017 Inactive levothyroxine 150 mcg tablet RxNorm: 347009 1 Tablet(s) PO daily 11/05/2016 02/01/2017 Inactive PLEASE LET PATIENT KNOW WE ARE GIVING HIM 150MCG INSTEAD OF 100MCG SO HE JUST TAKES 1 TAB DAILY. THANKS! Lantus Solostar 100 unit/mL (3 mL) subcutaneous insulin pen RxNorm: 438848 24 Unit(s) SQ daily INJECT 24 UNITS DAILY OR DIRECTED 201603/01/2017 Inactive 1 box of 5 pens Lantus Solostar 100 unit/mL (3 mL) subcutaneous insulin pen RxNorm: 392720 24 Unit(s) SQ daily INJECT 24 UNITS DAILY OR DIRECTED 201610/06/2016 Inactive please call patient with the [facility] levothyroxine 100 mcg tablet RxNorm: 459555 1.5 Tablet(s) PO daily 10/05/2016 11/04/2016 Inactive metformin ER 500 mg tablet,extended release 24 hr RxNorm: 768276 Tablet(s) TAKE ONE TABLET BY MOUTH TWICE DAILY 09/29/2016 11/09/2016 Inactive prednisone 20 mg tablet RxNorm: 522398 1 Tablet(s) PO BID 08/0608/10/2016 Inactive Kenalog 40 mg/mL suspension for injection RxNorm: 7372472 1 Milliliter(s) Inj 07/30/2016 07/30/2016 Inactive doxycycline hyclate 100 mg tablet RxNorm: 046137 1 Tablet(s) PO BID 07/30/2016 08/05/2016 Inactive glipizide 10 mg tablet RxNorm: 599427 1 Tablet(s) PO BID 201605/12/2017 Inactive Sinemet 25 mg-100 mg tablet RxNorm: 452654 TABLET(S) TAKE 1 TABLET BY MOUTH TWICE A DAY IN THE MORNING AND AT SUPPER 05/11/2016 11/06/2016 Inactive Patient requests 90 days supply metformin ER 500 mg tablet,extended release 24 hr RxNorm: 103130 TAKE ONE TABLET BY MOUTH TWICE DAILY 05/04/20162016 Inactive lisinopril 20 mg tablet RxNorm: 090593 TAKE 1 TABLET BY MOUTH TWICE DAILY 04/14/2016 11/09/2016 Inactive Sinemet 25 mg-100 mg tablet RxNorm: 514839 1 Tablet(s) PO BID TAKE 1 TABLET BY MOUTH TWICE A DAY IN THE MORNING AND AT SUPPER 03/23/2016 02/16/2018 Inactive Lasix 20 mg tablet RxNorm: 539752 Tablet(s) TAKE 1 TABLET BY MOUTH ONCE DAILY FOR 1 WEEK AND THEN TAKE 1 TABLET BY MOUTH EVERY 3 DAYS THEREAFTER 03/23/2016 06/06/2016 Inactive Lantus Solostar 100 unit/mL (3 mL) subcutaneous insulin pen RxNorm: 747535 24 Unit(s) SQ daily INJECT 24 UNITS DAILY OR DIRECTED 201510/05/2016 Inactive please call patient with the [facility] hydrocodone 5 mg-acetaminophen 325 mg tablet RxNorm: 791897 1-2 Tablet(s) PO Q6- 8H 01/21/2016 02/16/2018 Inactive Kenalog 40 mg/mL suspension for injection RxNorm: 6888880 1 Milliliter(s) Inj 01/20/2016 01/20/2016 Inactive Sinemet 25 mg-100 mg tablet RxNorm: 917933 Tablet(s) TAKE 1 TABLET BY MOUTH TWICE A DAY IN THE MORNING AND AT SUPPER 11/29/2015 03/22/2016 Inactive Lantus Solostar 100 unit/mL (3 mL) subcutaneous insulin pen RxNorm: 509983 20 Unit(s) SQ daily INJECT 20 UNITS DAILY OR DIRECTED 201501/20/2016 Inactive please call patient with the [facility] Sinemet 25 mg-100 mg tablet RxNorm: 928941 Tablet(s) TAKE 1 TABLET BY MOUTH TWICE A DAY IN THE MORNING AND AT SUPPER 11/22/2015 11/28/2015 Inactive Lantus Solostar 100 unit/mL (3 mL) subcutaneous insulin pen RxNorm: 164798 Unit( s) INJECT 20 UNITS DAILY OR DIRECTED 11/22/2015 11/24/2015 Inactive Lantus Solostar 100 unit/mL (3 mL) subcutaneous insulin pen RxNorm: 248872 INJECT 20 UNITS DAILY OR DIRECTED 09/27/2015 11/21/2015 Inactive Lasix 20 mg tablet RxNorm: 774548 TAKE 1 TABLET BY MOUTH ONCE DAILY FOR 1 WEEK AND THEN TAKE 1 TABLET BY MOUTH EVERY 3 DAYS THEREAFTER 09/2512/10/2015 Inactive Lasix 20 mg tablet RxNorm: 449814 1 Tablet(s) PO daily 201509/25/2015 Inactive glipizide 10 mg tablet RxNorm: 545429 1 Tablet(s) BID TAKE 1 TABLET BY MOUTH DAILY. 06/25/2015 06/28/2016 Inactive metformin ER 500 mg tablet,extended release 24 hr RxNorm: 264611 1 Tablet(s) PO BID 04/01/2015 05/05/2016 Inactive lisinopril 20 mg tablet RxNorm: 386750 Tablet(s) TAKE 1 TABLET BY MOUTH TWICE DAILY. 03/25/2015 07/22/2015 Inactive metformin ER 500 mg tablet,extended release 24 hr RxNorm: 039435 1 Tablet(s) PO BID 03/25/2015 03/31/2015 Inactive doxycycline hyclate 100 mg capsule RxNorm: 5836071 1 Capsule(s) PO BID 03/19/2015 04/01/2015 Inactive Sinemet 25 mg-100 mg tablet RxNorm: 820507 TAKE 1 TABLET BY MOUTH TWICE A DAY IN THE MORNING AND AT SUPPER 03/05/201511/20 Inactive doxycycline hyclate 100 mg capsule RxNorm: 8606594 1 Capsule(s) PO BID 02/20/2015 02/26/2015 Inactive metolazone 5 mg tablet RxNorm: 676211 1 Tablet(s) PO daily 07/201403/21/2015 Inactive spironolactone 50 mg tablet RxNorm: 525436 1 Tablet(s) PO daily 02/11/2015 01/02/2016 Inactive Efudex 5 % topical cream RxNorm: 440300 1 TOP BID 01/28/2015 02/10/2015 Inactive potassium chloride ER 10 mEq tablet,extended release(part/ cryst) RxNorm: 8327448 1 Tablet(s) PO daily x 1week then three times weekly with the lasix. 01/28/2015 05/27/2015 Inactive Lasix 20 mg tablet RxNorm: 134005 1 Tablet(s) PO daily x 1 week, then every three days thereafter 01/28/20152015 Inactive lisinopril 20 mg tablet RxNorm: 240233 Tablet(s) TAKE 1 TABLET BY MOUTH TWICE DAILY. 11/23/2014 03/22/2015 Inactive lisinopril 20 mg tablet RxNorm: 109631 TAKE 1 TABLET BY MOUTH TWICE DAILY. 11/22/2014 11/22/2014 Inactive Sinemet 25 mg-100 mg tablet RxNorm: 406965 1 Tablet(s) PO BID TAKE 1 TABLET BY MOUTH TWICE A DAY IN THE MORNING AND AT SUPPER 10/01/2014 03/04/2015 Inactive [ SAVINGS FOR UNINSURED PATIENTS -- BIN:158079, PCN: ASPROD1, Group: [id number], ID# [id number], Process claim through [employer], for questions: . THIS IS NOT INSURANCE.] glipizide 10 mg tablet RxNorm: 580803 1 Tablet(s) BID TAKE 1 TABLET BY MOUTH DAILY. 10/01/2014 06/24/2015 Inactive glipizide 10 mg tablet RxNorm: 024858 Tablet(s) daily TAKE 1 TABLET BY MOUTH DAILY. 08/06/2014 09/30/2014 Inactive Lantus Solostar 100 unit/mL (3 mL) subcutaneous insulin pen RxNorm: 341697 20 Unit(s) SQ daily 07/11/2014 09/26/2015 Inactive [SAVINGS FOR UNINSURED PATIENTS -- BIN:180017, PCN: ASPROD1, Group: [id number], ID# [id number], Process claim through [employer], for questions: . THIS IS NOT INSURANCE.] metformin ER 500 mg tablet,extended release 24 hr RxNorm: 389918 1 Tablet(s) PO BID 07/10/2014 03/24/2015 Inactive lisinopril 20 mg tablet RxNorm: 631994 Tablet(s) TAKE 1 TABLET BY MOUTH TWICE DAILY. 07/10/2014 11/21/2014 Inactive Lantus Solostar 100 unit/mL (3 mL) subcutaneous insulin pen RxNorm: 584007 20 Unit(s) SQ daily 05/30/2014 07/10/2014 Inactive [SAVINGS FOR UNINSURED PATIENTS -- BIN:503472, PCN: ASPROD1, Group: [id number], ID# [id number], Process claim through [employer], for questions: . THIS IS NOT INSURANCE.] Sinemet 25 mg-100 mg tablet RxNorm: 570486 Tablet(s) TAKE 1 TABLET BY MOUTH TWICE A DAY IN THE MORNING AND AT SUPPER 05/30/2014 09/30/2014 Inactive [SAVINGS FOR UNINSURED PATIENTS -- BIN:505427, PCN: ASPROD1, Group: [id number], ID# [id number], Process claim through [employer], for questions: . THIS IS NOT INSURANCE.] lisinopril 20 mg tablet RxNorm: 552054 TAKE 1 TABLET BY MOUTH TWICE DAILY. 04/09/2014 04/08/2014 Inactive glipizide 10 mg tablet RxNorm: 325940 TAKE 1 TABLET BY MOUTH TWICE DAILY. 04/09/2014 08/05/2014 Inactive glipizide 10 mg tablet RxNorm: 828504 TAKE 1 TABLET BY MOUTH TWICE DAILY. 04/09/2014 04/08/2014 Inactive lisinopril 20 mg tablet RxNorm: 486525 TAKE 1 TABLET BY MOUTH TWICE DAILY. 04/09/2014 07/09/2014 Inactive lisinopril 20 mg tablet RxNorm: 218462 Tablet(s) TAKE ONE TABLET BY MOUTH TWICE DAILY 04/06/2014 04/08/2014 Inactive [SAVINGS FOR UNINSURED PATIENTS -- BIN:028021 , PCN: ASPROD1, Group: [id number], ID# [id number], Process claim through [employer], for questions: . THIS IS NOT INSURANCE.] glipizide 10 mg tablet RxNorm: 149119 1 Tablet(s) PO BID 201304/08/2014 Inactive [SAVINGS FOR UNINSURED PATIENTS -- BIN:512617, PCN: ASPROD1, Group: [id number], ID # [id number], Process claim through [employer], for questions: . THIS IS NOT INSURANCE.] pravastatin 10 mg tablet RxNorm: 768251 TAKE ONE TABLET BY MOUTH EVERY DAY 02/26/2014 05/26/2014 Inactive Sinemet 25 mg-100 mg tablet RxNorm: 244303 TAKE 1 TABLET BY MOUTH TWICE A DAY IN THE MORNING AND AT SUPPER 01/26/201401/25 Inactive Sinemet 25 mg-100 mg tablet RxNorm: 109343 Tablet(s) TAKE 1 TABLET BY MOUTH TWICE A DAY IN THE MORNING AND AT SUPPER 01/26/2014 05/29/2014 Inactive [SAVINGS FOR UNINSURED PATIENTS -- BIN:112712, PCN: ASPROD1, Group: [id number], ID# [id number], Process claim through [employer], for questions: . THIS IS NOT INSURANCE.] Sinemet 25 mg-100 mg tablet RxNorm: 361449 TAKE 1 TABLET BY MOUTH TWICE A DAY IN THE MORNING AND AT SUPPER 01/26/201401/25 Inactive Sinemet 25 mg-100 mg tablet RxNorm: 923400 TAKE 1 TABLET BY MOUTH TWICE A DAY IN THE MORNING AND AT SUPPER 01/26/201401/25 Inactive pantoprazole 40 mg tablet,delayed release RxNorm: 945969 TAKE 1 TABLET DAILY 01/25/2014 10/07/2016 Inactive finasteride 5 mg tablet RxNorm: 731157 1 Tablet(s) PO daily 12/201309/30/2014 Inactive [SAVINGS FOR UNINSURED PATIENTS -- BIN:810371, PCN: ASPROD1, Group: [id number] , ID# [id number], Process claim through [employer], for questions: . THIS IS NOT INSURANCE.] sucralfate 100 mg/mL oral suspension RxNorm: 745015 10 Milliliter(s) PO QID 01/23/2014 09/30/2014 Inactive dispense qs x 1 month lisinopril 20 mg tablet RxNorm: 519270 TAKE ONE TABLET BY MOUTH TWICE DAILY 12/27/2013 03/26/2014 Inactive pantoprazole 40 mg tablet,delayed release RxNorm: 234922 1 Tablet(s) PO daily 12/26/2013 12/25/2013 Inactive [SAVINGS FOR UNINSURED PATIENTS -- BIN:753950, PCN: ASPROD1, Group: [id number], ID# [id number], Process claim through [employer], for questions: . THIS IS NOT INSURANCE.] pantoprazole 40 mg tablet,delayed release RxNorm: 590513 1 Tablet(s) PO daily 12/26/2013 12/20/2014 Inactive [SAVINGS FOR UNINSURED PATIENTS -- BIN:099987, PCN: ASPROD1, Group: [id number], ID# [id number], Process claim through [employer], for questions: . THIS IS NOT INSURANCE.] gemfibrozil 600 mg tablet RxNorm: 954976 1 Tablet(s) PO BID 11/201310/23/2013 Inactive gemfibrozil 600 mg tablet RxNorm: 776902 1 Tablet(s) PO BID 11/201309/30/2014 Inactive [SAVINGS FOR UNINSURED PATIENTS -- BIN:507423, PCN: ASPROD1, Group: [id number] , ID# [id number], Process claim through [employer], for questions: . THIS IS NOT INSURANCE.] finasteride 5 mg tablet RxNorm: 343419 1 Tablet(s) PO daily 04/201301/24/2014 Inactive [SAVINGS FOR UNINSURED PATIENTS -- BIN:718462, PCN: ASPROD1, Group: [id number] , ID# [id number], Process claim through [employer], for questions: . THIS IS NOT INSURANCE.] Lantus Solostar 100 unit/mL (3 mL) subcutaneous insulin pen RxNorm: 803640 20 Unit(s) SQ daily 10/09/2013 05/29/2014 Inactive [SAVINGS FOR UNINSURED PATIENTS -- BIN:053006, PCN: ASPROD1, Group: [id number], ID# [id number], Process claim through [employer], for questions: . THIS IS NOT INSURANCE.] glipizide 10 mg tablet RxNorm: 729024 1 Tablet(s) PO daily 04/05/2014 Inactive [SAVINGS FOR UNINSURED PATIENTS -- BIN:494047, PCN: ASPROD1, Group: [id number] , ID# [id number], Process claim through [employer], for questions: . THIS IS NOT INSURANCE.] Lantus Solostar 100 unit/mL (3 mL) subcutaneous insulin pen RxNorm: 888430 20 Unit(s) SQ daily 07/18/2013 10/08/2013 Inactive Sinemet 25 mg-100 mg tablet RxNorm: 536564 1 Tablet(s) PO BID one pill in morning , one at supper 07/10/2013 01/25/2014 Inactive Sinemet 25 mg-100 mg tablet RxNorm: 315975 1 Tablet(s) PO BID one pill in morning , one at supper 04/24/2013 07/09/2013 Inactive metformin ER 500 mg tablet,extended release 24 hr RxNorm: 531406 1 Tablet(s) PO BID 04/24/2013 04/18/2014 Inactive glipizide 10 mg tablet RxNorm: 723633 1 Tablet(s) PO daily 09/201310/08/2013 Inactive lisinopril 20 mg tablet RxNorm: 378531 1 Tablet(s) PO BID 04/2410/20/2013 Inactive pravastatin 10 mg tablet RxNorm: 933255 1 Tablet(s) PO daily 10/20/2013 Inactive Lantus Solostar 100 unit/mL (3 mL) subcutaneous insulin pen RxNorm: 402950 20 Unit(s) SQ daily 04/24/2013 07/17/2013 Inactive glipizide 10 mg tablet RxNorm: 725844 1 Tablet(s) PO daily 05/201304/23/2013 Inactive glipizide 10 mg tablet RxNorm: 147517 1 Tablet(s) PO daily 05/201204/19/2013 Inactive Lantus Solostar 100 unit/mL (3 mL) subcutaneous insulin pen RxNorm: 290142 16 Unit(s) SQ daily 03/20/2013 04/23/2013 Inactive Sinemet 25 mg-100 mg tablet RxNorm: 062637 1 Tablet(s) PO BID one pill in morning , one at supper 01/20/2013 04/23/2013 Inactive Lantus Solostar 100 unit/mL (3 mL) subcutaneous insulin pen RxNorm: 417482 16 Unit(s) SQ daily 01/19/2013 01/25/2013 Inactive Sinemet 25 mg-100 mg tablet RxNorm: 977994 1 Tablet(s) PO BID one pill in morning , one at supper 01/19/2013 01/19/2013 Inactive glipizide 10 mg tablet RxNorm: 531260 1 Tablet(s) PO BID 201203/19/2013 Inactive Lantus Solostar 100 unit/mL (3 mL) Sub-Q Insulin Pen RxNorm: 420027 12 Unit(s) SQ daily 12/21/2012 01/18/2013 Inactive lisinopril 20 mg tablet RxNorm: 477918 1 Tablet(s) PO BID 12/0804/23/2013 Inactive metformin ER 500 mg tablet,extended release 24 hr RxNorm: 682272 1 Tablet(s) PO BID 11/30/2012 04/23/2013 Inactive Lantus Solostar 100 unit/mL (3 mL) Sub-Q Insulin Pen RxNorm: 600782 5 Unit(s) SQ daily 11/30/2012 12/07/2012 Inactive FINASTERIDE TAB 5MG RxNorm: 10/03/2012 Inactive lisinopril 20 mg tablet RxNorm: 987068 1 Tablet(s) PO BID 09/0812/06/2012 Inactive glipizide 10 mg tablet RxNorm: 613415 1 Tablet(s) PO BID 201212/30/2012 Inactive metronidazole 500 mg tablet RxNorm: 955630 1 Tablet(s) PO TID 05/30/2012 06/08/2012 Inactive metformin ER 500 mg tablet,extended release 24 hr RxNorm: 932965 2 Tablet(s) PO daily 04/22/2012 11/29/2012 Inactive metformin ER 500 mg tablet,extended release 24 hr RxNorm: 597885 2 Tablet(s) PO daily 04/21/2012 04/21/2012 Inactive ketoconazole 2 % Topical Cream RxNorm: 272376 1 Application TOP BID 04/14/2012 05/04/2012 Inactive ketoconazole 2 % Shampoo RxNorm: 310974 1 Application TOP every other day apply to feet, leave on for 5 minutes, then rinse. 04/14/2012 04/27/2012 Inactive clotrimazole 1 % Topical Cream RxNorm: 547585 1 Application TOP BID 02/22/2012 04/03/2012 Inactive glipizide 10 mg tablet RxNorm: 870536 1 Tablet(s) PO BID 201106/18/2012 Inactive lisinopril 20 mg tablet RxNorm: 387063 1 Tablet(s) PO BID 09/0108/26/2012 Inactive metformin ER 500 mg tablet,extended release 24 hr RxNorm: 741503 2 Tablet(s) PO daily 08/10/2011 04/20/2012 Inactive metformin ER 1,000 mg 24 hr Tab Ctrl Rel RxNorm: 478677 1 Tablet(s) PO daily 07/28/2011 08/09/2011 Inactive Kombiglyze XR 5 mg-1,000 mg 24 hr Tab RxNorm: 3860213 1 Tablet(s) PO daily 07/28/2011 07/27/2011 Inactive Kombiglyze XR 5 mg-1,000 mg 24 hr Tab RxNorm: 1651928 1 Tablet(s) PO daily 07/28/2011 07/28/2011 Inactive glipizide 10 mg tablet RxNorm: 856644 1 Tablet(s) PO BID 201107/27/2011 Inactive glipizide 10 mg Tab RxNorm: 850992 1 Tablet(s) PO BID 201106/16/2011 Inactive glipizide 10 mg Tab RxNorm: 539637 1 Tablet(s) PO BID 201006/15/2011 Inactive glipizide 10 mg Tab RxNorm: 559748 1 Tablet(s) PO BID 201004/01/2011 Inactive glipizide 10 mg Tab RxNorm: 360131 Tablet(s) PO BID 201003/31/2011 Inactive Calcium + Vitamin D 600 mg calcium-200 unit tablet RxNorm: 533827 1 Tablet(s) PO BID No Start Date Active pantoprazole 40 mg tablet,delayed release RxNorm: 680561 1 Tablet(s) PO daily No Start Date 12/25/2013 Inactive Sinemet 25 mg-100 mg tablet RxNorm: 686257 1/2 Tablet(s) PO BID one pill in morning, one at supper No Start Date 01/18 Inactive levothyroxine 100 mcg tablet RxNorm: 565125 1 Tablet(s) PO daily No Start Date 10/04/2016 Inactive lisinopril 20 mg Tab RxNorm: 593918 1 Tablet(s) PO BID No Start Date 09/01/2011 Inactive hydrocodone 5 mg-acetaminophen 325 mg tablet RxNorm: 684609 1-2 Tablet(s) PO Q6- 8H No Start Date 01/20/2016 Inactive pravastatin 10 mg tablet RxNorm: 339416 1 Tablet(s) PO daily No Start Date 04/23/2013 Inactive Medication Administered Medication Codes Instructions Start Date Status Kenalog 40 mg/mL suspension for injection RxNorm: 0203976 1Milliliter 07/30/2016 No longer Active Kenalog 40 mg/mL suspension for injection RxNorm: 4550801 1Milliliter 01/20/2016 No longer Active Immunizations Vaccine [...] Code Item Item Code Result Date %Hba1C Jjk777 % HbA1c 38706-8 7.1 % 02/17/2018 %Hba1C Mww345 Gluc Ave 157 mg/dL 02/17/2018 Comp Metabolic Kej238 NA 135 mEq/L 02/17/2018 Comp Metabolic Civ472 K 4.7 mEq/L 02/17/2018 Comp Metabolic Xmf861 CL 97 mEq/L 02/17/2018 Comp Metabolic Arr982 CO2 27.0 mEq/L 02/17/2018 Comp Metabolic Xht542 ANION GAP 16 02/17/2018 Comp Metabolic Vaz115 GLUCOSE 141 mg/dL 02/17/2018 Comp Metabolic Zkd615 Creat 1.5 mg/dL 02/17/2018 Comp Metabolic Sun373 eGFR 48 ml/min/1.73m2 02/17/2018 Comp Metabolic Lsy788 BUN 29 mg/dL 02/17/2018 Comp Metabolic Kds878 B/C Ratio 19.5 Ratio 02/17/2018 Comp Metabolic Qpy452 CALCIUM 9.4 mg/dL 02/17/2018 Comp Metabolic Qhz982 ALK PHOS 57 U/L 02/17/2018 Comp Metabolic Lmh406 AST(SGOT) 13 U/L 02/17/2018 Comp Metabolic Dkl599 ALT(SGPT) 4 U/L 02/17/2018 Comp Metabolic Jsl096 BILI T 0.6 mg/dL 02/17/2018 Comp Metabolic Dsc150 ALBUMIN 4.2 g/dL 02/17/2018 Comp Metabolic Phk155 TPRO 6.7 g/dL 02/17/2018 Comp Metabolic Pvk050 GLOB 2.5 g/dL 02/17/2018 Comp Metabolic Dlg030 A/G Ratio 1.7 Ratio 02/17/2018 Comp Metabolic Jzu779 Osmo 278 mOsmo 02/17/2018 Tsh Ord6 TSH (3rd IS) 3.10 uIU/mL 02/17/2018 Free T4 Hcx519 FREE T4 1.36 ng/dL 02/17/2018 Folate Ord36 Folate 19.00 ng/mL 01/11/2018 B12 Qzb932 B12 342.00 pg/ml 01/11/2018 Comp Metabolic Euv981 NA 134 mEq/L 09/17/2017 Comp Metabolic Yvb637 K 4.4 mEq/L 09/17/2017 Comp Metabolic Chu842 CL 98 mEq/L 09/17/2017 Comp Metabolic Htj729 CO2 25.0 mEq/L 09/17/2017 Comp Metabolic Dyv704 ANION GAP 15 09/17/2017 Comp Metabolic Cfg606 GLUCOSE 97 mg/dL 09/17/2017 Comp Metabolic Abl971 Creat 1.7 mg/dL 09/17/2017 Comp Metabolic Ptj765 eGFR 40 ml/min/1.73m2 09/17/2017 Comp Metabolic Ezo971 BUN 28 mg/dL 09/17/2017 Comp Metabolic Fxn040 B/C Ratio 16.2 Ratio 09/17/2017 Comp Metabolic Dzg223 CALCIUM 9.1 mg/dL 09/17/2017 Comp Metabolic Jkj325 ALK PHOS 76 U/L 09/17/2017 Comp Metabolic Wsa884 AST(SGOT) 17 U/L 09/17/2017 Comp Metabolic Qkw256 ALT(SGPT) 15 U/L 09/17/2017 Comp Metabolic Lzd751 BILI T 0.7 mg/dL 09/17/2017 Comp Metabolic Cwu472 ALBUMIN 4.1 g/dL 09/17/2017 Comp Metabolic Svs084 TPRO 6.9 g/dL 09/17/2017 Comp Metabolic Byg372 GLOB 2.8 g/dL 09/17/2017 Comp Metabolic Svm043 A/G Ratio 1.5 Ratio 09/17/2017 Comp Metabolic Ogh528 Osmo 274 mOsmo 09/17/2017 Free T4 Kpg498 FREE T4 1.10 ng/dL 09/17/2017 Tsh Ord6 [...] 31.5 pg 09/17/2017 Cbc With Differential Ord2 Swisher% 9.5 % 09/17/2017 Cbc With Differential Ord2 [...] 1.93 K/ul 09/17/2017 Cbc With Differential Ord2 Swisher ABS# 0.7 K/ul 09/17/2017 Cbc With Differential Ord2 Eos ABS# 0.2 K/ul 09/17/2017 Cbc With Differential Ord2 Baso ABS# 0.0 K/ul 09/17/2017 %Hba1C Lmn487 % HbA1c 58596-6 6.8 % 09/17/2017 %Hba1C Egk668 Gluc Ave 148 mg/dL 09/17/2017 %Hba1C Mib420 % HbA1c 53552-7 7.0 % 05/13/2017 %Hba1C Esb334 Gluc Ave 154 mg/dL 05/13/2017 Free T4 Hrq406 FREE T4 1.29 ng/dL 05/13/2017 Tsh Ord6 TSH (3rd IS) 4.14 uIU/mL 05/13/2017 Tsh Ord6 hTSH II 9.43 uIU/mL 02/02/2017 Comp Metabolic Vmv305 NA 134 mEq/L 02/02/2017 Comp Metabolic Mix692 K 4.4 mEq/L 02/02/2017 Comp Metabolic Kyk944 CL 99 mEq/L 02/02/2017 Comp Metabolic Dkg296 CO2 26.0 mEq/L 02/02/2017 Comp Metabolic Ryc347 ANION GAP 13 02/02/2017 Comp Metabolic Nfn415 GLUCOSE 256 mg/dL 02/02/2017 Comp Metabolic Nmi950 Creat 1.6 mg/dL 02/02/2017 Comp Metabolic Nco552 eGFR 45 ml/min/1.73m2 02/02/2017 Comp Metabolic Qrv540 BUN 26 mg/dL 02/02/2017 Comp Metabolic Xaw310 B/C Ratio 16.6 Ratio 02/02/2017 Comp Metabolic Obc923 CALCIUM 8.7 mg/dL 02/02/2017 Comp Metabolic Usd068 ALK PHOS 63 U/L 02/02/2017 Comp Metabolic Utt193 AST(SGOT) 11 U/L 02/02/2017 Comp Metabolic Gae200 ALT(SGPT) 9 U/L 02/02/2017 Comp Metabolic Odk725 BILI T 0.5 mg/dL 02/02/2017 Comp Metabolic Alm420 ALBUMIN 3.7 g/dL 02/02/2017 Comp Metabolic Ujr289 TPRO 6.1 g/dL 02/02/2017 Comp Metabolic Zln837 GLOB 2.4 g/dL 02/02/2017 Comp Metabolic Kvx328 A/G Ratio 1.6 Ratio 02/02/2017 Comp Metabolic Xmp020 Osmo 282 mOsmo 02/02/2017 %Hba1C Wls952 % HbA1c 52897-0 7.5 % 02/02/2017 %Hba1C Vxq546 Gluc Ave 169 mg/dL 02/02/2017 Free T4 Iqa416 FREE T4 1.23 ng/dL 02/02/2017 Cbc With [...] 31.2 pg 02/02/2017 Cbc With Differential Ord2 Swisher% 9.6 % 02/02/2017 Cbc With Differential Ord2 [...] 2.61 K/ul 02/02/2017 Cbc With Differential Ord2 Swisher ABS# 0.8 K/ul 02/02/2017 Cbc With Differential Ord2 Eos ABS# 0.2 K/ul 02/02/2017 Cbc With Differential Ord2 Baso ABS# 0.1 K/ul 02/02/2017 Total T3 Ord42 TT3 0.59 ng/ml 07/14/2016 Free T4 Jby460 FREE T4 1.14 ng/dL 07/14/2016 Cbc With [...] 31.8 pg 06/22/2016 Cbc With Differential Ord2 Swisher% 9.9 % 06/22/2016 Cbc With Differential Ord2 [...] 2.41 K/ul 06/22/2016 Cbc With Differential Ord2 Swisher ABS# 0.7 K/ul 06/22/2016 Cbc With Differential Ord2 Eos ABS# 0.2 K/ul 06/22/2016 Cbc With Differential Ord2 Baso ABS# 0.0 K/ul 06/22/2016 Comp Metabolic Foq970 NA 134 mEq/L 06/22/2016 Comp Metabolic Nhs374 K 4.3 mEq/L 06/22/2016 Comp Metabolic Loj809 CL 100 mEq/L 06/22/2016 Comp Metabolic Qmx913 CO2 26.0 mEq/L 06/22/2016 Comp Metabolic Osh699 ANION GAP 12 06/22/2016 Comp Metabolic Uhx864 GLUCOSE 222 mg/dL 06/22/2016 Comp Metabolic Rxa044 Creat 1.5 mg/dL 06/22/2016 Comp Metabolic Ftp478 eGFR 49 ml/min/1.73m2 06/22/2016 Comp Metabolic Ylj738 BUN 23 mg/dL 06/22/2016 Comp Metabolic Hzo957 B/C Ratio 15.9 Ratio 06/22/2016 Comp Metabolic Jla268 CALCIUM 9.0 mg/dL 06/22/2016 Comp Metabolic Tln699 ALK PHOS 59 U/L 06/22/2016 Comp Metabolic Ndh889 AST(SGOT) 13 U/L 06/22/2016 Comp Metabolic Rti780 ALT(SGPT) 11 U/L 06/22/2016 Comp Metabolic Avk831 BILI T 0.5 mg/dL 06/22/2016 Comp Metabolic Qad710 ALBUMIN 3.8 g/dL 06/22/2016 Comp Metabolic Ilp887 TPRO 6.2 g/dL 06/22/2016 Comp Metabolic Zbr558 GLOB 2.4 g/dL 06/22/2016 Comp Metabolic Ikq350 A/G Ratio 1.6 Ratio 06/22/2016 Comp Metabolic Spq922 Osmo 279 mOsmo 06/22/2016 Tsh Ord6 hTSH II 0.44 uIU/mL 06/22/2016 Comp Metabolic Eou774 NA 134 mEq/L 04/27/2016 Comp Metabolic Xkv980 K 4.6 mEq/L 04/27/2016 Comp Metabolic Gfk611 CL 99 mEq/L 04/27/2016 Comp Metabolic Drk992 CO2 27.0 mEq/L 04/27/2016 Comp Metabolic Yaf890 ANION GAP 13 04/27/2016 Comp Metabolic Ann926 GLUCOSE 178 mg/dL 04/27/2016 Comp Metabolic Mmr774 Creat 1.4 mg/dL 04/27/2016 Comp Metabolic Hid114 eGFR 53 ml/min/1.73m2 04/27/2016 Comp Metabolic Iii226 BUN 24 mg/dL 04/27/2016 Comp Metabolic Ifw480 B/C Ratio 17.5 Ratio 04/27/2016 Comp Metabolic Jvh197 CALCIUM 9.1 mg/dL 04/27/2016 Comp Metabolic Qeh094 ALK PHOS 72 U/L 04/27/2016 Comp Metabolic Fvl547 AST(SGOT) 16 U/L 04/27/2016 Comp Metabolic Frl623 ALT(SGPT) 12 U/L 04/27/2016 Comp Metabolic Htb779 BILI T 0.6 mg/dL 04/27/2016 Comp Metabolic Rfb255 ALBUMIN 4.1 g/dL 04/27/2016 Comp Metabolic Mei377 TPRO 6.8 g/dL 04/27/2016 Comp Metabolic Sza195 GLOB 2.7 g/dL 04/27/2016 Comp Metabolic Yyz672 A/G Ratio 1.6 Ratio 04/27/2016 Comp Metabolic Flk282 Osmo 277 mOsmo 04/27/2016 Cbc With Differential [...] 31.9 pg 04/27/2016 Cbc With Differential Ord2 Swisher% 9.7 % 04/27/2016 Cbc With Differential Ord2 [...] 2.89 K/ul 04/27/2016 Cbc With Differential Ord2 Swisher ABS# 0.9 K/ul 04/27/2016 Cbc With Differential Ord2 Eos ABS# 0.2 K/ul 04/27/2016 Cbc With Differential Ord2 Baso ABS# 0.0 K/ul 04/27/2016 %Hba1C Vpj200 % HbA1c 26599-0 7.2 % 04/27/2016 %Hba1C Xky963 Gluc Ave 160 mg/dL 04/27/2016 Cbc With [...] 31.0 pg 01/21/2016 Cbc With Differential Ord2 Swisher% 8.9 % 01/21/2016 Cbc With Differential Ord2 [...] 1.91 K/ul 01/21/2016 Cbc With Differential Ord2 Swisher ABS# 0.6 K/ul 01/21/2016 Cbc With Differential Ord2 Eos ABS# 0.2 K/ul 01/21/2016 Cbc With Differential Ord2 Baso ABS# 0.0 K/ul 01/21/2016 Comp Metabolic Hys713 NA 134 mEq/L 01/21/2016 Comp Metabolic Uqi055 K 5.0 mEq/L 01/21/2016 Comp Metabolic Zjc515 CL 99 mEq/L 01/21/2016 Comp Metabolic Qmv207 CO2 26.0 mEq/L 01/21/2016 Comp Metabolic Bsh015 ANION GAP 14 01/21/2016 Comp Metabolic Cme193 GLUCOSE 260 mg/dL 01/21/2016 Comp Metabolic Mrt246 Creat 1.5 mg/dL 01/21/2016 Comp Metabolic Lhv379 eGFR 50 ml/min/1.73m2 01/21/2016 Comp Metabolic Zox561 BUN 18 mg/dL 01/21/2016 Comp Metabolic Afw214 B/C Ratio 12.4 Ratio 01/21/2016 Comp Metabolic Zcf798 CALCIUM 8.8 mg/dL 01/21/2016 Comp Metabolic Vee384 ALK PHOS 68 U/L 01/21/2016 Comp Metabolic Fnj010 AST(SGOT) 16 U/L 01/21/2016 Comp Metabolic Muj884 ALT(SGPT) 16 U/L 01/21/2016 Comp Metabolic Yuc806 BILI T 0.5 mg/dL 01/21/2016 Comp Metabolic Gnt426 ALBUMIN 3.8 g/dL 01/21/2016 Comp Metabolic Kvg359 TPRO 6.3 g/dL 01/21/2016 Comp Metabolic Hbl253 GLOB 2.5 g/dL 01/21/2016 Comp Metabolic Wzh736 A/G Ratio 1.5 Ratio 01/21/2016 Comp Metabolic Yrb529 Osmo 279 mOsmo 01/21/2016 %Hba1C Lnq990 % HbA1c 29709-9 7.4 % 01/21/2016 %Hba1C Izj193 Gluc Ave 166 mg/dL 01/21/2016 Metabolic Ord15 [...] Qnt Crqnt CRP 1.5 mg/dl 09/17/2015 %Hba1C Rxq072 % HbA1c 88532-9 7.1 % 09/17/2015 %Hba1C Wpd712 Gluc Ave 157 mg/dL 09/17/2015 Cbc With [...] 31.7 pg 08/06/2015 Cbc With Differential Ord2 Swisher% 9.6 % 08/06/2015 Cbc With Differential Ord2 [...] 2.90 K/ul 08/06/2015 Cbc With Differential Ord2 Swisher ABS# 0.7 K/ul 08/06/2015 Cbc With Differential Ord2 Eos ABS# 0.2 K/ul 08/06/2015 Cbc With Differential Ord2 Baso ABS# 0.0 K/ul 08/06/2015 Cbc With Differential Ord2 New Analyzer Notice Please note new ref ranges starting 05-01-2015 due to implemntation of new five part differential hematolgy analyzer. 08/06/2015 Comp Metabolic Hfw525 NA 132 mEq/L 08/06/2015 Comp Metabolic Pwk407 K 4.6 mEq/L 08/06/2015 Comp Metabolic Rjk370 CL 98 mEq/L 08/06/2015 Comp Metabolic Iso694 CO2 25.0 mEq/L 08/06/2015 Comp Metabolic Xsa272 ANION GAP 14 08/06/2015 Comp Metabolic Mqy937 GLUCOSE 170 mg/dL 08/06/2015 Comp Metabolic Jas091 Creat 1.5 mg/dL 08/06/2015 Comp Metabolic Jcc047 eGFR 46 ml/min/1.73m2 08/06/2015 Comp Metabolic Ycn996 BUN 21 mg/dL 08/06/2015 Comp Metabolic Yrb108 B/C Ratio 13.6 Ratio 08/06/2015 Comp Metabolic Djv373 CALCIUM 8.9 mg/dL 08/06/2015 Comp Metabolic Ejj970 ALK PHOS 60 U/L 08/06/2015 Comp Metabolic Bpo464 AST(SGOT) 16 U/L 08/06/2015 Comp Metabolic Xfs283 ALT(SGPT) 18 U/L 08/06/2015 Comp Metabolic Shv572 BILI T 0.4 mg/dL 08/06/2015 Comp Metabolic Plx549 ALBUMIN 3.8 g/dL 08/06/2015 Comp Metabolic Dxv944 TPRO 6.3 g/dL 08/06/2015 Comp Metabolic Sdi762 GLOB 2.5 g/dL 08/06/2015 Comp Metabolic Xby784 A/G Ratio 1.6 Ratio 08/06/2015 Comp Metabolic Txq996 Osmo 271 mOsmo 08/06/2015 Tsh Ord6 hTSH II 0.95 uIU/mL 06/17/2015 Free T4 Ois977 FREE T4 1.08 ng/dL 06/17/2015 Metabolic Ord15 [...] Ord15 CALCIUM 9.0 mg/dL 05/06/2015 Comp Metabolic Mjg575 NA 143 mEq/L 03/04/2015 Comp Metabolic Zjd126 K 4.5 mEq/L 03/04/2015 Comp Metabolic Fmh941 CL 92 mEq/L 03/04/2015 Comp Metabolic Uiy494 CO2 24.0 mEq/L 03/04/2015 Comp Metabolic Hqj478 ANION GAP 32 03/04/2015 Comp Metabolic Tzr108 GLUCOSE 72 mg/dL 03/04/2015 Comp Metabolic Slr602 Creat 1.5 mg/dL 03/04/2015 Comp Metabolic Rbt772 eGFR 48 ml/min/1.73m2 03/04/2015 Comp Metabolic Lne542 BUN 27 mg/dL 03/04/2015 Comp Metabolic Dlu080 B/C Ratio 18.0 Ratio 03/04/2015 Comp Metabolic Iml084 CALCIUM 9.1 mg/dL 03/04/2015 Comp Metabolic Ecb538 ALK PHOS 58 U/L 03/04/2015 Comp Metabolic Iru179 AST(SGOT) 16 U/L 03/04/2015 Comp Metabolic Ewn123 ALT(SGPT) 13 U/L 03/04/2015 Comp Metabolic Nsi933 BILI T 0.6 mg/dL 03/04/2015 Comp Metabolic Elp464 ALBUMIN 4.0 g/dL 03/04/2015 Comp Metabolic Fgm870 TPRO 6.6 g/dL 03/04/2015 Comp Metabolic Guo362 GLOB 2.6 g/dL 03/04/2015 Comp Metabolic Jbt664 A/G Ratio 1.6 Ratio 03/04/2015 Comp Metabolic Cre174 Osmo 289 mOsmo 03/04/2015 %Hba1C Qwm631 % HbA1c 89608-2 7.3 % 01/28/2015 %Hba1C Qms787 Gluc Ave 163 mg/dL 01/28/2015 MICRALUR 5571640 MICRL MG/L 13.2 MG/L 10/01/2014 MICRALUR 2021761 XM.ALB/CRE 48.9 MG/GCR 10/01/2014 MICRALUR 7045292 CREAT MG/D 27 MG/DL 10/01/2014 MICRALUR 6337110 CRE/100 0.27 G/L 10/01/2014 A1C HPLC 2882648 A1C HPLC 28075-0 7.3 % 10/01/2014 TSH 1032472 TSH 0.423 uIU/ML 10/01/2014 TSH 2968910 TSH 0.612 uIU/ML 10/18/2013 A1C HPLC 3565541 A1C HPLC 75319-6 6.8 % 10/18/2013 GFR CALC 5372609 GFR AA >60 ML/MIN 10/18/2013 GFR CALC 1467538 GFR NON-AA 52.0L ML/MIN 10/18/2013 LIPID GRP HDL TEST 30 MG/DL 10/18/2013 LIPID GRP TRIG 425 MG/DL 10/18/2013 LIPID GRP TEST LDL HI TRIG MG/DL 10/18/2013 LIPID GRP CHOL 185 MG/DL 10/18/2013 LIPID GRP RCHOL/HDL 6.17 RATIO 10/18/2013 MICRALUR MICRL MG/L 15.6 MG/L 10/18/2013 MICRALUR XM.ALB/CRE 9.2 MG/GCR 10/18/2013 MICRALUR 9262991 CREAT MG/D 169 MG/DL 10/18/2013 MICRALUR 3830197 CRE/100 1.69 G/L 10/18/2013 CHEM 14 2865621 AST 20 U/L 10/18/2013 CHEM 14 6819390 ALT 13 IU/L 10/18/2013 CHEM 14 6772793 BUN 27 MG/DL 10/18/2013 CHEM 14 6238131 ALBUMIN 4.2 GM/DL 10/18/2013 CHEM 14 9127745 CHLORIDE 100 MMOL/L 10/18/2013 CHEM 14 5605653 BILI TOT 0.5 MG/DL 10/18/2013 CHEM 14 9163967 ALK PHOS 60 U/L 10/18/2013 CHEM 14 5099968 SODIUM 131 MMOL/L 10/18/2013 CHEM 14 8151826 CREATININE 1.32 MG/DL 10/18/2013 CHEM 14 2663624 CALCIUM 9.2 MG/DL 10/18/2013 CHEM 14 7635167 POTASSIUM 4.7 MMOL/L 10/18/2013 CHEM 14 1177470 PROT TOT 7.7 GM/DL 10/18/2013 CHEM 14 2622856 GLUCOSE 140 MG/DL 10/18/2013 CHEM 14 4227946 BICARB 24 MMOL/L 10/18/2013 CHEM 14 8219316 ANION GAP 7 MEQ/L 10/18/2013 PSA EQ 20110613 PSA EQ 7.79 NG/ML 10/18/2013 CBC 1327538 WBC 6.6 10e9/L 10/18/2013 CBC 1825442 RBC 4.58 10e12/L 10/18/2013 CBC 5219528 HGB 14.6 g/dL 10/18/2013 CBC 3209804 HCT DET 42.8 % 10/18/2013 CBC 6464649 MCV 93.4 fL 10/18/2013 CBC 7903272 MCH 31.9 pg 10/18/2013 CBC 6274568 MCHC 34.1 g/dL 10/18/2013 CBC 4734325 PLT 172 10e9/L 10/18/2013 CBC 2907977 MPV 9.3 fL 10/18/2013 CBC 1955389 JAYESH % 55.4 % 10/18/2013 CBC 2267866 LY % 33.0 % 10/18/2013 CBC 8442912 MON % 8.8 % 10/18/2013 CBC 3898072 EOS % 2.6 % 10/18/2013 CBC 0617376 BASO % 0.2 % 10/18/2013 CBC 3862742 RDW 12.7 % 10/18/2013 CBC 3231975 ABS JAYESH 3.66 10e9/L 10/18/2013 CBC 8923364 ABS LYMPH 2.18 10e9/L 10/18/2013 CBC 7314652 ABS MONO 0.58 10e9/L 10/18/2013 CBC 3595299 ABS EOS 0.17 10e9/L 10/18/2013 CBC 6994129 ABS BASO 0.01 10e9/L 10/18/2013 CBC 3711660 RDW-SD 42.6 fL 10/18/2013 TSH 4308569 TSH 1.257 uIU/ML 05/05/2013 CHEM 14 5664490 AST 15 U/L 05/05/2013 CHEM 14 3875961 ALT 13 IU/L 05/05/2013 CHEM 14 6116313 BUN 22 MG/DL 05/05/2013 CHEM 14 1861360 ALBUMIN 4.2 GM/DL 05/05/2013 CHEM 14 3147903 CHLORIDE 104 MMOL/L 05/05/2013 CHEM 14 5231247 BILI TOT 0.6 MG/DL 05/05/2013 CHEM 14 3796434 ALK PHOS 52 U/L 05/05/2013 CHEM 14 5083369 SODIUM 137 MMOL/L 05/05/2013 CHEM 14 2613344 CREATININE 1.25 MG/DL 05/05/2013 CHEM 14 3588729 CALCIUM 9.1 MG/DL 05/05/2013 CHEM 14 6984697 POTASSIUM 5.0 MMOL/L 05/05/2013 CHEM 14 2736862 PROT TOT 6.7 GM/DL 05/05/2013 CHEM 14 2970398 GLUCOSE 142 MG/DL 05/05/2013 CHEM 14 0197213 BICARB 27 MMOL/L 05/05/2013 CHEM 14 6584828 ANION GAP 6 MEQ/L 05/05/2013 GFR CALC 3260059 GFR AA >60 ML/MIN 05/05/2013 GFR CALC 4509666 GFR NON-AA 56.0L ML/MIN 05/05/2013 CBC 3848045 WBC 6.1 10e9/L 05/05/2013 CBC 5422060 RBC 4.74 10e12/L 05/05/2013 CBC 3919729 HGB 14.7 g/dL 05/05/2013 CBC 9935755 HCT DET 43.6 % 05/05/2013 CBC 7670168 MCV 92.0 fL 05/05/2013 CBC 2655848 MCH 31.0 pg 05/05/2013 CBC 9566717 MCHC 33.7 g/dL 05/05/2013 CBC 6183445 PLT 168 10e9/L 05/05/2013 CBC 2771721 MPV 9.3 fL 05/05/2013 CBC 1649158 JAYESH % 53.2 % 05/05/2013 CBC 9589732 LY % 35.3 % 05/05/2013 CBC 6910518 MON % 8.7 % 05/05/2013 CBC 0262782 EOS % 2.5 % 05/05/2013 CBC 2944190 BASO % 0.3 % 05/05/2013 CBC 6776893 RDW 13.5 % 05/05/2013 CBC 5739724 ABS JAYESH 3.25 10e9/L 05/05/2013 CBC 6137212 ABS LYMPH 2.15 10e9/L 05/05/2013 CBC 6367592 ABS MONO 0.53 10e9/L 05/05/2013 CBC 7693859 ABS EOS 0.15 10e9/L 05/05/2013 CBC 9556575 ABS BASO 0.02 10e9/L 05/05/2013 CBC 5070137 RDW-SD 44.8 fL 05/05/2013 A1C HPLC 9755919 A1C HPLC 13981-0 6.4 % 05/05/2013 LIPID GRP HDL TEST 32 MG/DL 05/05/2013 LIPID GRP TRIG 170 MG/DL 05/05/2013 LIPID GRP TEST LDL 73 MG/DL 05/05/2013 LIPID GRP CHOL 139 MG/DL 05/05/2013 LIPID GRP RCHOL/HDL 4.34 RATIO 05/05/2013 CHEM 14 2069858 AST 17 U/L 11/25/2012 CHEM 14 20271022 ALT 21 IU/L 11/25/2012 CHEM 14 20271022 BUN 20 MG/DL 11/25/2012 CHEM 14 8697603 ALBUMIN 4.4 GM/DL 11/25/2012 CHEM 14 0237895 CHLORIDE 99 MMOL/L 11/25/2012 CHEM 14 8286340 BILI TOT 0.6 MG/DL 11/25/2012 CHEM 14 7659638 ALK PHOS 50 U/L 11/25/2012 CHEM 14 4422362 SODIUM 129 MMOL/L 11/25/2012 CHEM 14 3284204 CREATININE 1.20 MG/DL 11/25/2012 CHEM 14 9716058 CALCIUM 9.2 MG/DL 11/25/2012 CHEM 14 8461038 POTASSIUM 5.1 MMOL/L 11/25/2012 CHEM 14 0953424 PROT TOT 6.7 GM/DL 11/25/2012 CHEM 14 7083754 GLUCOSE 196 MG/DL 11/25/2012 CHEM 14 3435920 BICARB 25 MMOL/L 11/25/2012 CHEM 14 6424212 ANION GAP 5 MEQ/L 11/25/2012 CBC 8987133 WBC 6.1 10e9/L 11/25/2012 CBC 5658438 RBC 4.78 10e12/L 11/25/2012 CBC 6876774 HGB 15.0 g/dL 11/25/2012 CBC 3891347 HCT DET 43.4 % 11/25/2012 CBC 9763655 MCV 90.8 fL 11/25/2012 CBC 7143291 MCH 31.4 pg 11/25/2012 CBC 7793948 MCHC 34.6 g/dL 11/25/2012 CBC 0325104 PLT 174 10e9/L 11/25/2012 CBC 0453863 MPV 9.5 fL 11/25/2012 CBC 3883843 JAYESH % 54.6 % 11/25/2012 CBC 4550724 LY % 32.9 % 11/25/2012 CBC 0475579 MON % 9.6 % 11/25/2012 CBC 1042149 EOS % 2.6 % 11/25/2012 CBC 3297904 BASO % 0.3 % 11/25/2012 CBC 4621129 RDW 12.9 % 11/25/2012 CBC 0862759 ABS JAYESH 3.33 10e9/L 11/25/2012 CBC 2002526 ABS LYMPH 2.01 10e9/L 11/25/2012 CBC 3668883 ABS MONO 0.59 10e9/L 11/25/2012 CBC 5503381 ABS EOS 0.16 10e9/L 11/25/2012 CBC 9796853 ABS BASO 0.02 10e9/L 11/25/2012 CBC 0726350 RDW-SD 42.3 fL 11/25/2012 LIPID GRP HDL TEST 39 MG/DL 11/25/2012 LIPID GRP TRIG 204 MG/DL 11/25/2012 LIPID GRP 5193363 TEST LDL 100 MG/DL 11/25/2012 LIPID GRP CHOL 180 MG/DL 11/25/2012 LIPID GRP RCHOL/HDL 4.62 RATIO 11/25/2012 A1C HPLC 1199438 A1C HPLC 03300-0 8.2 % 11/25/2012 GFR CALC 0288123 GFR AA >60 ML/MIN 11/25/2012 GFR CALC 5012197 GFR NON-AA 58.0L ML/MIN 11/25/2012 TSH 1669661 TSH 0.636 uIU/ML 01/13/2012 A1C HPLC 8878280 A1C HPLC 07363-2 7.9 % 01/13/2012 GFR CALC 8494467 GFR AA >60 ML/MIN 01/13/2012 GFR CALC 9078797 GFR NON-AA 59.0L ML/MIN 01/13/2012 CBC 8357008 WBC 7.8 10e9/L 01/13/2012 CBC 7511504 RBC 4.93 10e12/L 01/13/2012 CBC 6620385 HGB 15.3 g/dL 01/13/2012 CBC 6523028 HCT DET 43.6 % 01/13/2012 CBC 6356787 MCV 88.4 fL 01/13/2012 CBC 8491159 MCH 31.0 pg 01/13/2012 CBC 1987287 MCHC 35.1 g/dL 01/13/2012 CBC 0243774 PLT 173 10e9/L 01/13/2012 CBC 8723758 MPV 9.1 fL 01/13/2012 CBC 8743825 JAYESH % 57.6 % 01/13/2012 CBC 0786320 LY % 31.5 % 01/13/2012 CBC 1371096 MON % 8.8 % 01/13/2012 CBC 9921135 EOS % 1.8 % 01/13/2012 CBC 3382804 BASO % 0.3 % 01/13/2012 CBC 2266199 RDW 12.9 % 01/13/2012 CBC 2123210 ABS JAYESH 4.49 10e9/L 01/13/2012 CBC 5071585 ABS LYMPH 2.46 10e9/L 01/13/2012 CBC 9919657 ABS MONO 0.69 10e9/L 01/13/2012 CBC 2191558 ABS EOS 0.14 10e9/L 01/13/2012 CBC 9526566 ABS BASO 0.02 10e9/L 01/13/2012 CBC 7398273 RDW-SD 41.2 fL 01/13/2012 CHEM 14 3554206 AST 21 U/L 01/13/2012 CHEM 14 6936010 ALT 23 IU/L 01/13/2012 CHEM 14 9507924 BUN 20 MG/DL 01/13/2012 CHEM 14 9877467 ALBUMIN 4.4 GM/DL 01/13/2012 CHEM 14 5531225 CHLORIDE 94 MMOL/L 01/13/2012 CHEM 14 6844620 BILI TOT 0.5 MG/DL 01/13/2012 CHEM 14 5588324 ALK PHOS 60 U/L 01/13/2012 CHEM 14 6244601 SODIUM 131 MMOL/L 01/13/2012 CHEM 14 0594995 CREATININE 1.20 MG/DL 01/13/2012 CHEM 14 8589713 CALCIUM 9.5 MG/DL 01/13/2012 CHEM 14 4199169 POTASSIUM 4.3 MMOL/L 01/13/2012 CHEM 14 2020861 PROT TOT 6.5 GM/DL 01/13/2012 CHEM 14 7309667 GLUCOSE 172 MG/DL 01/13/2012 CHEM 14 1577786 BICARB 26 MMOL/L 01/13/2012 CHEM 14 7647131 ANION GAP 11 MEQ/L 01/13/2012 Review of [...] lordosis 01/23/2014 None Full Exam - General 1995 Neurologic gait Conventional walking: wide-based 01/23/2014 None [...] murmurs 04/24/2013 None Full Exam - General 1995 Musculoskeletal [...] time 03/20/2013 None Full Exam - General 1995 Neurologic [...] 1994 Ears/Nose/Throat oral cavity/pharynx/larynx Overall: no masses 01/19/2013 [...] 2 07/01/2011 None Full Exam - General 1995 Chest/Breast [...] WOUN RTS (CULTURE OTHR SPECIMN AEROBIC) CPT-4: 45503 03/19/2015 DRAINAGE OF SKIN ABSCESS CPT-4: 52510 03/19/2015 ADMIN PNEUMOCOCCAL VACCINE SNOMED CT: 63941078 CPT-4: G0009 03/08/2015 PNEUMOCOCCAL VACC 13 THALIA IM Formatting Model/CDA Sections, Assigned to SNOMED CT: 96995968 CPT-4: 82833Vazhfvg 03/08/2015 ADMIN PNEUMOCOCCAL VACCINE SNOMED CT: 37119658 CPT-4: G0009 01/23/2014 Pneumococcal Polysaccharide Vaccine, 23-Valent, Ad Assigned to/Merissa Sutton CPT-4: 69598Gunshgm 01/23/2014 DESTRUCT PREMALG LESION CPT-4: 29048 10/24/2013 DESTRUCT PREMALG LES 2-14 CPT-4: 36398 10/24/2013 ROUTINE VENIPUNCTURE CPT-4: 51376 05/05/2013 PRESCRIP TRANSMIT VIA ERX SY CPT-4: G8553 04/24/2013 DESTRUCT PREMALG LESION CPT-4: 17664 12/26/2012 PRESCRIP TRANSMIT VIA ERX SY CPT-4: G8553 11/30/2012 ROUTINE VENIPUNCTURE CPT-4: 07564 11/25/2012 PRESCRIP TRANSMIT VIA ERX SY CPT-4: G8553 05/30/2012 PRESCRIP TRANSMIT VIA ERX SY CPT-4: G8553 04/14/2012 PRESCRIP TRANSMIT VIA ERX SY CPT-4: G8553 02/22/2012 ROUTINE VENIPUNCTURE CPT-4: 58538 01/13/2012 ROUTINE VENIPUNCTURE CPT-4: 93367 08/06/2011 ROUTINE VENIPUNCTURE CPT-4: 88775 06/25/2011 Vital Signs Date Vital 05/04/2018 Blood Pressure 1: 140/72 Code : 8480-6 BMI: 29.1 Code : 70431-2 Heart Rate 1 : 65 bpm Height: 6'2" SpO2: 98% Weight: 227 lbs 02/17/2018 Blood Pressure 1: 140/74 Code : 8480-6 BMI: 29.7 Code : 60568-9 Heart Rate 1 : 67 bpm Height: 6'2" SpO2: 98% Waist Measure (cm): 112 cm Weight: 231 lbs 01/11/2018 Blood Pressure 1: 140/80 Code : 8480-6 BMI: 29.4 Code : 31485-9 Heart Rate 1 : 72 bpm Height: 6'2" SpO2: 92% Weight: 229 lbs 09/16/2017 Blood Pressure 1: 136/78 Code : 8480-6 BMI: 28.8 Code : 25719-7 Heart Rate 1 : 74 bpm Height: 6'2" SpO2: 94% Weight: 224 lbs 07/13/2017 Blood Pressure 1: 142/78 Code : 8480-6 BMI: 29.3 Code : 65280-6 Heart Rate 1 : 67 bpm Height: 6'2" SpO2: 97% Weight: 228 lbs 05/13/2017 Blood Pressure 1: 154/82 Code : 8480-6 BMI: 30.0 Code : 00594-6 Heart Rate 1 : 65 bpm Height: 6'2" SpO2: 98% Weight: 234 lbs 04/28/2017 Blood Pressure 1: 134/78 Code : 8480-6 BMI: 29.7 Code : 12570-8 Heart Rate 1 : 73 bpm Height: 6'2" SpO2: 94% Weight: 231 lbs 04/15/2017 Blood Pressure 1: 152/74 Code : 8480-6 BMI: 29.7 Code : 79690-2 Heart Rate 1 : 64 bpm Height: 6'2" SpO2: 98% Weight: 231 lbs 02/04/2017 Blood Pressure 1: 140/78 Code : 8480-6 BMI: 30.0 Code : 58434-0 Heart Rate 1 : 83 bpm Height: 6'2" SpO2: 97% Weight: 234 lbs 10/12/2016 Blood Pressure 1: 148/68 Code : 8480-6 BMI: 29.3 Code : 48716-6 Heart Rate 1 : 65 bpm Height: 6'2" SpO2: 100% Weight: 228 lbs 10/08/2016 Blood Pressure 1: 148/68 Code : 8480-6 BMI: 29.3 Code : 77960-7 Heart Rate 1 : 65 bpm Height: 6'2" SpO2: 100% Weight: 228 lbs 8 oz 09/10/2016 Blood Pressure 1: 142/68 Code : 8480-6 BMI: 29.3 Code : 26120-9 Heart Rate 1 : 75 bpm Height: 6'2" SpO2: 97% Weight: 228 lbs 08/24/2016 Blood Pressure 1: 156/86 Code : 8480-6 BMI: 28.1 Code : 02610-8 Heart Rate 1 : 72 bpm Height: 6'2" SpO2: 97% Weight: 219 lbs 08/06/2016 Blood Pressure 1: 172/90 Code : 8480-6 BMI: 29.0 Code : 94836-7 Heart Rate 1 : 68 bpm Height: 6'2" SpO2: 98% Temperature: 36.1 (C) / 96.9 (F) Weight: 226 lbs 07/30/2016 Blood Pressure 1: 138/86 Code : 8480-6 BMI: 29.7 Code : 46581-9 Heart Rate 1 : 80 bpm Height: 6'2" SpO2: 95% Temperature: 36.5 (C) / 97.7 (F) Weight: 231 lbs 06/22/2016 Blood Pressure 1: 145/82 Code : 8480-6 Heart Rate 1: 77 bpm Respiratory Rate : 18 bpm SpO2: 97% Weight: 231 lbs 04/27/2016 Blood Pressure 1: 182/78 Code : 8480-6 Blood Pressure 1: 158/76 Code: 8480-6 BMI: 30.4 Code: 14472-5 Heart Rate 1: 69 bpm Height: 6'2" SpO2: 97% Weight: 237 lbs 03/23/2016 Blood Pressure 1: 140/82 Code : 8480-6 BMI: 30.4 Code : 77414-1 Heart Rate 1 : 77 bpm Height: 6'2" SpO2: 93% Weight: 237 lbs 01/20/2016 Blood Pressure 1: 142/80 Code : 8480-6 BMI: 31.2 Code : 08058-0 Heart Rate 1 : 64 bpm Height: 6'2" SpO2: 93% Weight: 243 lbs 12/16/2015 Blood Pressure 1: 138/88 Code : 8480-6 BMI: 30.3 Code : 20204-8 Heart Rate 1 : 62 bpm Height: 6'2" SpO2: 97% Weight: 236 lbs 12/09/2015 Blood Pressure 1: 198/92 Code : 8480-6 Blood Pressure 1: 152/70 Code: 8480-6 Blood Pressure 1: 148/80 Code: 8480-6 BMI: 30.3 Code: 54808-5 Heart Rate 1: 84 bpm Height: 6'2" Weight: 236 lbs 11/25/2015 Blood Pressure 1: 160/80 Code : 8480-6 BMI: 30.2 Code : 96528-4 Heart Rate 1 : 68 bpm Height: 6'2" SpO2: 96% Weight: 235 lbs 09/02/2015 Blood Pressure 1: 122/64 Code : 8480-6 BMI: 30.2 Code : 35481-7 Heart Rate 1 : 86 bpm Height: 6'2" SpO2: 98% Weight: 235 lbs 08/05/2015 Blood Pressure 1: 130/70 Code : 8480-6 Heart Rate 1: 81 bpm SpO2: 97% Weight: 233 lbs 07/25/2015 Blood Pressure 1: 142/80 Code : 8480-6 BMI: 30.0 Code : 59982-4 Heart Rate 1 : 74 bpm Height: 6'2" SpO2: 95% Weight: 234 lbs 06/03/2015 Blood Pressure 1: 150/68 Code : 8480-6 BMI: 30.0 Code : 97277-1 Heart Rate 1 : 66 bpm Height: 6'2" SpO2: 96% Weight: 234 lbs 03/19/2015 Blood Pressure 1: 154/78 Code : 8480-6 BMI: 30.3 Code : 58733-2 Heart Rate 1 : 63 bpm Height: 6'2" SpO2: 96% Weight: 236 lbs 03/04/2015 Blood Pressure 1: 124/68 Code : 8480-6 BMI: 30.2 Code : 95870-3 Heart Rate 1 : 60 bpm Height: 6'2" SpO2: 97% Weight: 235 lbs 02/20/2015 Blood Pressure 1: 160/84 Code : 8480-6 BMI: 30.8 Code : 42765-8 Heart Rate 1 : 79 bpm Height: 6'2" SpO2: 96% Weight: 240 lbs 02/11/2015 Blood Pressure 1: 170/102 Code: 8480-6 BMI: 31.1 Code: 77537-9 Heart Rate 1: 81 bpm Height: 6'2" SpO2: 96% Weight: 242 lbs 01/28/2015 Blood Pressure 1: 174/80 Code : 8480-6 Blood Pressure 2: 168/74 Code: 8480-6 BMI: 31.2 Code: 16513-6 Heart Rate 1: 74 bpm Height: 6'2" SpO2: 97% Weight: 243 lbs 10/01/2014 Blood Pressure 1: 152/84 Code : 8480-6 BMI: 30.4 Code : 50947-1 Heart Rate 1 : 80 bpm Height: 6'2" SpO2: 96% Weight: 237 lbs 05/30/2014 Blood Pressure 1: 140/82 Code : 8480-6 BMI: 30.6 Code : 43528-6 Heart Rate 1 : 86 bpm Height: 6'2" Weight: 238 lbs 02/28/2014 Blood Pressure 1: 152/86 Code : 8480-6 BMI: 29.5 Code : 78425-4 Heart Rate 1 : 64 bpm Height: 6'2" Weight: 230 lbs 01/23/2014 Blood Pressure 1: 142/68 Code : 8480-6 BMI: 29.7 Code : 32198-2 Heart Rate 1 : 80 bpm Height: 6'2" Weight: 231 lbs 12/26/2013 Blood Pressure 1: 150/72 Code : 8480-6 BMI: 29.3 Code : 78966-7 Heart Rate 1 : 60 bpm Height: 6'2" Respiratory Rate: 16 bpm Weight: 228 lbs 8 oz 10/24/2013 Blood Pressure 1: 140/84 Code : 8480-6 Heart Rate 1: 60 bpm 10/17/2013 Blood Pressure 1: 166/72 Code : 8480-6 BMI: 28.8 Code : 07425-4 Heart Rate 1 : 68 bpm Height: 6'2" Weight: 224 lbs 07/24/2013 Blood Pressure 1: 112/64 Code : 8480-6 BMI: 29.1 Code : 88398-3 Heart Rate 1 : 80 bpm Height: 6'2" Weight: 227 lbs 04/24/2013 Blood Pressure 1: 130/74 Code : 8480-6 BMI: 28.9 Code : 04076-2 Heart Rate 1 : 76 bpm Height: 6'2" Weight: 225 lbs 6 oz 03/20/2013 Blood Pressure 1: 150/70 Code : 8480-6 BMI: 29.7 Code : 83525-1 Heart Rate 1 : 76 bpm Height: 6'2" Temperature: 37.0 (C) / 98.6 (F) Weight: 231 lbs 01/19/2013 Blood Pressure 1: 150/78 Code : 8480-6 BMI: 30.2 Code : 59957-1 Heart Rate 1 : 84 bpm Height: 6'2" Weight: 235 lbs 12/26/2012 Blood Pressure 1: 142/78 Code : 8480-6 BMI: 29.9 Code : 13286-2 Heart Rate 1 : 84 bpm Height: 6'2" Weight: 233 lbs 12/21/2012 Blood Pressure 1: 142/80 Code : 8480-6 BMI: 29.5 Code : 82242-4 Heart Rate 1 : 80 bpm Height: 6'2" Weight: 230 lbs 11/30/2012 Blood Pressure 1: 146/78 Code : 8480-6 BMI: 29.4 Code : 93740-2 Heart Rate 1 : 80 bpm Height: 6'2" Weight: 229 lbs 05/30/2012 Blood Pressure 1: 150/74 Code : 8480-6 BMI: 29.4 Code : 40245-1 Heart Rate 1 : 76 bpm Height: 6'2" Respiratory Rate: 16 bpm Weight: 229 lbs 04/26/2012 Blood Pressure 1: 124/64 Code : 8480-6 Heart Rate 1: 90 bpm SpO2: 98% Temperature: 36.7 (C) / 98.1 (F) Weight: 04/14/2012 Blood Pressure 1: 150/88 Code : 8480-6 Blood Pressure 2: 150/90 Code: 8480-6 BMI: 29.4 Code: 21532-8 Heart Rate 1: 72 bpm Height: 6'2" [...] Code : 8480-6 BMI: 28.9 Code : 33803-1 Heart Rate 1 : 64 bpm Height: 6'2" Weight: 225 lbs 08/05/2011 Blood Pressure 1: 142/72 Code : 8480-6 BMI: 29.3 Code : 33351-7 Heart Rate 1 : 80 bpm Height: 6'2" Weight: 228 lbs 07/01/2011 Blood Pressure 1: 136/70 Code : 8480-6 BMI: 29.2 Code : 44980-0 Heart Rate 1 : 68 bpm Height: [...] doing physical therapy for parkinson's disease at [facility] diabetes mellitus Alleviating Factors insulin 01/19/2013 None [...] data Encounters Encounter Performer Location Codes Date ([id number]) 66454 EST. PATIENT, LEVEL IV Diagnosis: Parkinson's disease[ICD10: G20] Diagnosis: Atrophy of thyroid (acquired)[ICD10: E03.4] Diagnosis: Slow transit constipation[ICD10: K59.01] Diagnosis: Type 2 diabetes mellitus with hyperglycemia[ICD10: E11.65] Diagnosis: Essential (primary) hypertension[ICD10: I10] [facility] CPT-4: 35376 05/04/2018 ([id number]) 54016 EST. 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 PATIENT, LEVEL IV Diagnosis: Atrophy of thyroid (acquired)[ICD10: E03.4] Diagnosis: Type 2 diabetes mellitus with hyperglycemia[ICD10: E11.65] Diagnosis: Essential (primary) hypertension[ICD10: I10] Diagnosis: Parkinson's disease[ICD10: G20] [facility] CPT- 4: 42637 09/16/2017 ([id number]) 21108 EST. PATIENT, LEVEL IV Diagnosis: Essential (primary) hypertension[ICD10: I10] Diagnosis: Type 2 diabetes mellitus with hyperglycemia[ICD10: E11.65] Diagnosis: Atrophy of thyroid (acquired)[ICD10: E03.4] Yoli Medley MD, [facility] CPT-4: 14373 07/13/2017 ([id number]) 39359 EST. PATIENT, LEVEL IV Diagnosis: Essential (primary) hypertension[ICD10: I10] Diagnosis: Localized edema[ICD10: R60.0] Diagnosis: Atrophy of thyroid (acquired)[ICD10: E03.4] Diagnosis: Type 2 diabetes mellitus without complications[ICD10: E11.9] Yoli Medley MD, [facility] CPT-4: 01723 05/13/2017 28690 EST. PATIENT, LEVEL III Diagnosis: Rash and other nonspecific skin eruption[ICD10: R21] Bonita Medley MD, [facility] CPT-4: 12749 04/28/2017 64686 EST. PATIENT, LEVEL IV Diagnosis: Essential (primary) hypertension[ICD10: I10] Diagnosis: Atrophy of thyroid (acquired)[ICD10: E03.4] Diagnosis: Type 2 diabetes mellitus without complications[ICD10: E11.9] Bonita Medley MD , [facility] CPT-4: 63212 04/15/2017 ([id number]) 68614 EST. PATIENT, LEVEL IV Diagnosis: Type 2 diabetes mellitus with hyperglycemia[ICD10: E11.65] Diagnosis: Essential (primary) hypertension[ICD10: I10] Diagnosis: Hypothyroidism, unspecified[ICD10: E03.9] Ginny Medley MD, [facility] CPT-4: 76995 02/04/2017 ([id number]) 84550 EST. PATIENT, LEVEL III Diagnosis: Essential (primary) hypertension[ICD10: I10] Diagnosis: Hypothyroidism, unspecified[ICD10: E03.9] Ginny Medley MD, [facility] CPT-4: 52881 10/08/2016 ([id number]) 68332 EST. PATIENT, LEVEL III Diagnosis: Allergic rhinitis due to pollen[ICD10: J30.1] Diagnosis: Hypothyroidism, unspecified[ICD10: E03.9] Ginny Medley MD, [facility] CPT-4: 84989 09/10/2016 ([id number]) 80501 EST. 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 PATIENT, LEVEL IV Diagnosis: Abdominal distension (gaseous)[ICD10: R14.0] Diagnosis: Cough[ICD10: R05] Diagnosis: Acute bronchitis, unspecified[ICD10: J20.9] Diagnosis: Essential (primary) hypertension[ICD10: I10] Ginny Medley MD, [facility] CPT-4: 59434 08/06/2016 ([id number]) 78379 EST. PATIENT, LEVEL III Diagnosis: Cough[ICD10: R05] Diagnosis: Acute upper respiratory infection, unspecified[ICD10: J06.9] Ginny Medley MD, [facility] CPT-4: 85091 07/30/2016 ([id number]) 82007 EST. PATIENT, LEVEL IV Diagnosis: Type 2 diabetes mellitus with hyperglycemia[ICD10: E11.65] Diagnosis: Essential (primary) hypertension[ICD10: I10] Diagnosis: Parkinson's disease[ICD10: G20] Diagnosis: Localized edema[ICD10: R60.0] Ginny Medley MD, [facility] CPT-4: 63615 06/22/2016 ([id number]) 83885 EST. PATIENT, LEVEL IV Diagnosis: Essential (primary) hypertension[ICD10: I10] Diagnosis: Type 2 diabetes mellitus with hyperglycemia[ICD10: E11.65] Diagnosis: Hypo-osmolality and hyponatremia[ICD10: E87.1] Diagnosis: Hesitancy of micturition[ICD10: R39.11] Ginny Medley MD, [facility] CPT-4: 01374 04/27/2016 ([id number]) 56096 EST. PATIENT, LEVEL III Diagnosis: Essential (primary) hypertension[ICD10: I10] Diagnosis: Localized edema[ICD10: R60.0] Ginny Medley MD, [facility] CPT-4: 06967 03/23/2016 ([id number]) 47288 EST. PATIENT, LEVEL IV Diagnosis: Low back pain[ICD10: M54.5] Diagnosis: Hypo-osmolality and hyponatremia[ICD10: E87.1] Diagnosis: Essential (primary) hypertension[ICD10: I10] Diagnosis: Localized edema[ICD10: R60.0] Diagnosis: Type 2 diabetes mellitus with hyperglycemia[ICD10: E11.65] Ginny Medley MD, [facility] CPT-4: 11411 01/20/2016 ([id number]) 83520 EST. PATIENT, LEVEL III Diagnosis: Type 2 diabetes mellitus with hyperglycemia[ICD10: E11.65] Diagnosis: Essential (primary) hypertension[ICD10: I10] Diagnosis: Hypo-osmolality and hyponatremia[ICD10: E87.1] Ginny Medley MD, [facility] CPT-4: 40004 12/16/2015 ([id number]) 65688 EST. PATIENT, LEVEL III Diagnosis: Essential (primary) hypertension[ICD10: I10] Diagnosis: Hypo-osmolality and hyponatremia[ICD10: E87.1] Ginny Medley MD, [facility] CPT-4: 37501 12/09/2015 ([id number]) 19900 EST. PATIENT, LEVEL IV Diagnosis: Essential (primary) hypertension[ICD10: I10] Diagnosis: Type 2 diabetes mellitus with hyperglycemia[ICD10: E11.65] Diagnosis: Parkinson's disease[ICD10: G20] Ginny Medley MD, [facility] CPT-4: 88943 11/25/2015 41480 EST. PATIENT, LEVEL III Diagnosis: Localized edema[ICD10: R60.0] Diagnosis: Essential (primary) hypertension[ICD10: I10] Bonita Medley MD, [facility] CPT-4: 75373 09/02/2015 ([id number]) 01703 EST. PATIENT, LEVEL III Diagnosis: Localized edema[ICD10: R60.0] Ginny Medley MD, [facility] CPT-4: 99973 08/05/2015 ([id number]) 19200 EST. PATIENT, LEVEL III Diagnosis: Localized edema[ICD10: R60.0] Diagnosis: Unspecified open wound, right ankle, initial encounter[ICD10: S91.001A] Ginny Medley MD, [facility] CPT-4: 08844 ([id number]) 32958 EST. PATIENT, LEVEL IV Diagnosis: Essential (primary) hypertension[ICD10: I10] Diagnosis: Localized edema[ICD10: R60.0] Diagnosis: Low back pain[ICD10: M54.5] Diagnosis: Type 2 diabetes mellitus with hyperglycemia[ICD10: E11.65] Ginny Medley MD, [facility] CPT-4: 46163 06/03/2015 ([id number]) Miscellaneous no charge Diagnosis: Encounter for other specified aftercare[ICD10: Z51.89] Yoli Medley MD [facility] CPT-4: 56915 03/20/2015 21719 EST. PATIENT, LEVEL IV Diagnosis: Cutaneous abscess of chest wall[ICD10: L02.213] Yoli Medley MD [facility] CPT-4: 26071 03/19/2015 ([id number]) 44472 EST. PATIENT, LEVEL III Diagnosis: Edema, unspecified[ICD10: R60.9] Yoli Medley MD [facility] CPT-4: 48252 03/04/2015 80415 EST. PATIENT, LEVEL III Diagnosis: Edema, unspecified[ICD10: R60.9] Diagnosis: Unspecified open wound, right ankle, initial encounter[ICD10: S91.001A] Yoli Medley MD [facility] CPT-4: 95052 07/2014 ([id number]) 45274 EST. PATIENT, LEVEL III Diagnosis: Edema, unspecified[ICD10: R60.9] Yoli Medley MD [facility] CPT-4: 56824 02/11/2015 ([id number]) 99935 EST. PATIENT, LEVEL IV Diagnosis: Type 2 diabetes mellitus with hyperglycemia[ICD10: E11.65] Diagnosis: Essential (primary) hypertension[ICD10: I10] Diagnosis: Edema, unspecified[ICD10: R60.9] Yoli Medley MD, [facility] CPT-4: 55980 01/28/2015 ([id number]) 56939 EST. PATIENT, LEVEL IV Diagnosis: DIABETES TYPE II[ICD9: 250.00] Diagnosis: ESSENTIAL HYPERTENSION[ICD9: 401.9] Diagnosis: Parkinsons disease[ICD9: 332.0] Yoli Medley MD [facility] CPT- 4: 26561 10/01/2014 ([id number]) 41884 EST. PATIENT, LEVEL IV Diagnosis: ESSENTIAL HYPERTENSION[ICD9: 401.9] Diagnosis: DIABETES TYPE II[ICD9: 250.00] Diagnosis: Parkinsons disease[ICD9: 332.0] Yoli Medley MD [facility] CPT- 4: 97665 05/30/2014 ([id number]) 34747 EST. PATIENT, LEVEL IV Diagnosis: DIABETES TYPE II[ICD9: 250.00] Diagnosis: ESSENTIAL HYPERTENSION[ICD9: 401.9] Diagnosis: Back pain[ICD9: 724.5] Yoli Medley MD [facility] CPT-4: 04751 02/28/2014 ([id number]) 10247 EST. PATIENT, LEVEL III Diagnosis: ESOPHAGEAL REFLUX[ICD9: 530.81] Diagnosis: Esophageal ulcer[ICD9: 530.20] Yoli Medley MD [facility] CPT- 4: 93829 01/23/2014 ([id number]) 49707 EST. PATIENT, LEVEL IV Diagnosis: ESOPHAGEAL REFLUX[ICD9: 530.81] Diagnosis: ESSENTIAL HYPERTENSION[ICD9: 401.9] Yoli Medley MD [facility] CPT-4: 10471 12/26/2013 ([id number]) 32120 EST. PATIENT, LEVEL IV Diagnosis: Diabetes type 2, uncontrolled[ICD9: 250.02] Diagnosis: ESSENTIAL HYPERTENSION[ICD9: 401.9] Diagnosis: Back pain[ICD9: 724.5] Diagnosis: ELEVATED PSA[ICD9: 790.93] Yoli Medley MD [facility] CPT- 4: 98308 10/17/2013 ([id number]) 02944 EST. PATIENT, LEVEL IV Diagnosis: DIABETES TYPE II[SNOMED: 314954672] Diagnosis: ESSENTIAL HYPERTENSION[SNOMED: 98970965] Diagnosis: Sleep apnea[ICD9: 780.57] Yoli Medley MD, [facility] CPT-4: 73824 07/24/2013 ([id number]) 25809 EST. PATIENT, LEVEL IV Diagnosis: DIABETES TYPE II[SNOMED: 204339277] Diagnosis: ESSENTIAL HYPERTENSION[SNOMED: 15963928] Diagnosis: HYPERLIPIDEMIA[ICD9: 272.4] Yoli Medley MD [facility] CPT- 4: 45568 04/24/2013 ([id number]) 79586 EST. PATIENT, LEVEL III Diagnosis: DIABETES TYPE II[SNOMED: 042759636] Yoli Medley MD [facility] CPT-4: 27970 03/20/2013 ([id number]) 29210 EST. PATIENT, LEVEL III Diagnosis: DM W/O COMPLICATION TYPE II, UNCONTROLLED[SNOMED: 33917227] Yoli Medley MD [facility] CPT-4: 85080 01/19/2013 ([id number]) 97606 EST. PATIENT, LEVEL III Diagnosis: DM W/O COMPLICATION TYPE II, UNCONTROLLED[SNOMED: 29152640] Yoli Medley MD [facility] CPT-4: 31902 12/21/2012 ([id number]) 45220 EST. PATIENT, LEVEL IV Diagnosis: DM W/O COMPLICATION TYPE II, UNCONTROLLED[SNOMED: 97558370] Diagnosis: Parkinsons disease[ICD9: 332.0] Diagnosis: Back pain[ICD9: 724.5] Diagnosis: Gait instability[ICD9: 781.2] Yoli Medley MD [facility] CPT- 4: 67330 11/30/2012 ([id number]) 54219 EST. PATIENT, LEVEL IV Diagnosis: ESSENTIAL HYPERTENSION[SNOMED: 81144189] Diagnosis: Abdominal pain[ICD9: 789.00] Diagnosis: DIABETES TYPE II[SNOMED: 478874718] Yoli Medley MD [facility] CPT-4: 27480 05/30/2012 ([id number]) 24588 EST. PATIENT, LEVEL III Diagnosis: Gastroenteritis[ICD9: 558.9] Ginny Medley MD, [facility] CPT-4: 34635 04/26/2012 ([id number]) 02974 EST. PATIENT, LEVEL IV Diagnosis: ESSENTIAL HYPERTENSION[SNOMED: 73774050] Diagnosis: DIABETES TYPE II[SNOMED: 244671308] Diagnosis: Claw toe[ICD9: 735.5] Yoli Medley MD, [facility] CPT-4: 29430 04/14/2012 ([id number]) 59761 EST. PATIENT, LEVEL III Diagnosis: Rash[ICD9: 782.1] Diagnosis: DERMATOPHYTOSIS OF FOOT[ICD9: 110.4] Ginny Medley MD, [facility] CPT-4: 60715 02/22/2012 ([id number]) 51053 EST. PATIENT, LEVEL IV Diagnosis: DM W/O COMPLICATION TYPE II, UNCONTROLLED[SNOMED: 87079566] Diagnosis: ESSENTIAL HYPERTENSION[SNOMED: 30111366] Diagnosis: Constipation - functional[ICD9: 564.09] Diagnosis: Encounter for long-term (current) use of other high-risk medications[ ICD9: V58.69] Yoli Medley MD, [facility] CPT-4: 68276 01/13/2012 [id number]) 38008 EST. PATIENT, LEVEL IV Diagnosis: ESSENTIAL HYPERTENSION[SNOMED: 74544554] Diagnosis: DIABETES TYPE II[SNOMED: 218166741] Yoli Medley MD, [facility] CPT-4: 68119 09/02/2011 61511 EST. PATIENT, LEVEL IV Diagnosis: LUMBAGO[ICD9: 724.2] Diagnosis: Sacroiliitis[ICD9: 720.2] Yoli Medley MD, [facility] CPT-4: 53171 08/05/2011 [id number]) 93568 EST. PATIENT, LEVEL IV Diagnosis: ESSENTIAL HYPERTENSION[SNOMED: 27882857] Diagnosis: DIABETES TYPE II[SNOMED: 590137383] Diagnosis: Breast mass in male[ICD9: 611.72] Diagnosis: Chronic hyponatremia[ICD9: 276.1] Yoli Medley MD, [facility] CPT-4: 56967 07/01/2011 Plan of Care Planned Activity Notes [...] persistent constipation. 05/04/2018 Appointment: [facility] (15 min) Moderate 05/04/2018 Patient Education: Patient [...] today 01/11/2018 Appointment: Yoli Medley WPtel: [phone] [phone] (15 min) Moderate 01/11/2018 Patient Education: Patient Medication Summary Completed 01/11/2018 Appointment: Bonita Villa WPtel: [facility]5 [facility] [facility] - Annual Wellness Visit 10/18/2017 Visit [...] no change to current treatment. 09/16/2017 Appointment: [phone] [facility] (15 min) Moderate 09/16/2017 Patient Education: Patient [...] on previous levels of control. 07/13/2017 Appointment[phone] (15 min) Moderate 07/13/2017 Patient Education: Patient [...] starting to become less controlled. 05/13/2017 Appointment: Glade ValleyYoli WPtel: [phone] [facility] (15 min) Moderate 05/13/2017 Patient Education: Patient Medication Summary Completed 05/13/2017 Visit Plan: Rash - The patient was instructed to use the ointment as per RX. The patient is to call for any change in symptoms, increase in size of the lesion, increase in pain, worsening redness, warmth, discharge. 04/28/2017 Appointment: Bonita Villa WPtel: [phone] [phone] (15 min) Moderate 04/28/2017 Patient Education: Patient Medication Summary Completed 04/28/2017 Appointment: Bonita Villa WPtel: [phone] [phone] (30 min) Complex 04/16/2017 Visit Plan: Hypertension [...] of control. 04/15/2017 Appointment: Bonita Villa WPtel: [phone] [phone] (30 min) Complex 04/15/2017 Patient Education: Patient [...] of control. 02/04/2017 Appointment: Ginny Pearl WPtel: [phone] (30 min) Complex 02/04/2017 Patient Education: Patient Medication Summary Completed 02/04/2017 Patient Education: Obesity Completed 02/04/2017 Patient Education: Patient Medication Summary Completed 02/01/2017 Appointment: Ginny Pearl WPtel: [address] [place], [place] [phone] (30 min) Complex 01/12/2017 Appointment: Ginny Pearl WPtel: [address] [place], [place] [phone] (30 min) Complex 01/07/2017 Visit Plan: Medicare [...] care surrogate. 10/12/2016 Appointment: Bonita Villa WPtel: [facility] [facility] - Annual Wellness Visit 10/12/2016 Patient [...] months. 10/08/2016 Appointment: Ginny Pearl WPtel: [phone] [phone] (30 min) Complex 10/08/2016 Patient Education: Patient Medication Summary Completed 10/08/2016 Patient Education: Hypertension Completed 10/08/2016 Visit Plan: Allergies-continue daily anti histamine-call if symptoms do not improve or if any worse S/P total thyroidectomy-now on levothyroxine-repeat labs in 1 month 09/10/2016 Appointment: Ginny Pearl WPtel: [phone] [phone] (30 min) Complex 09/10/2016 Patient Education: [...] Ford to do total thyroidectomy on Wednesday Mlzrifudsi-qfvyx-eslxgo-due to thyroid nodules-will monitor symptoms for now 08/24/2016 Visit Plan: Hypertension - continue with current medications, continue with no added salt diet. Pt has been encouraged to exercise daily. The pt has been advised to call the office if there are any acute concerns about change in blood pressure readings at home. Bilateral thyroid nodules-voice hoarseness-Dr Ford to do total thyroidectomy on Wednesday Xswqifjdhx-cbdjl-anzkun-due to thyroid nodules-will monitor symptoms for now [...] and plan. 08/24/2016 Appointment: Ginny Pearl WPtel: [address] [place], [place] [phone] (30 min) Complex 08/24/2016 Patient Education: Patient Medication Summary Completed 08/24/2016 Visit Plan: Abdominal mbvwjqdm-uqmtkfozjjyi-VTH today Bronchitis - acute case of bronchitis [...] home 08/06/2016 Appointment: Ginny Pearl WPtel: [phone] (10 min) Simple 08/06/2016 Patient Education: Patient Medication Summary Completed 08/06/2016 Visit Plan: URI - Pt advised to increase fluids, vitamin C. Discussed natural and expected course of this diagnosis and need to alert me if symptoms do not follow expected course, or if any worse. RX sent to patient' s pharmacy. 07/30/2016 Appointment: Ginny Pearl WPtel: [phone] [phone] (15 min) Moderate 07/30/2016 Patient Education: Patient [...] worsen. 06/22/2016 Appointment: Ginny Pearl WPtel: [phone] [phone] (30 min) Complex 06/22/2016 Patient Education: Patient [...] hesitancy-UA negative 04/27/2016 Appointment: Ginny Pearl WPtel: [phone] (30 min) Complex 04/27/2016 Patient Education: [...] edema. 03/23/2016 Appointment: Ginny Pearl WPtel: [phone] [phone] (30 min) Complex 03/23/2016 Patient Education: Patient [...] in the office. Refer for PT at [facility]- Low back pain, generalized weakness, Parkinsons Low boqufz-fjhnwnz-iu need for increase sodium intake Hypertension - [...] Hgb A1C 01/20/2016 Appointment: Ginny Pearl WPtel: [phone] (30 min) Complex 01/20/2016 Patient Education: Patient Medication Summary Completed 01/20/2016 Patient Education: Obesity Completed 01/20/2016 Care Plan: Comp Metabolic Pending 01/20/2016 Care Plan: Cbc With Differential Pending 01/20/2016 Care Plan: %Hba1C [facility] : 66672-3 Pending 01/20/2016 Visit Plan: Diabetes Mellitus - [...] labs today 12/09/2015 Appointment: G[facility] Pearl [facility]Ptel[phone] (30 min) Complex 12/09/2015 Patient Education: [...] symptoms worsen. 11/25/2015 Appointment: Ginny Pearl WPtel: [address] [place], [place] [phone] (30 min) Complex 11/25/2015 Patient Education: Patient [...] 03/26/2015 Care Plan: Referral Order SNOMED-CT : [id number] Ordered 03/26/2015 Patient Education: Patient Medication Summary [...] 02/20/2015 Care Plan: Referral Order SNOMED-CT : [id number] Ordered 02/20/2015 Visit Plan: Hypertension - uncontrolled [...] - SPIRONOLACTONE 02/11/2015 Appointment: [phone] (15 min) Moderate 02/11/2015 Patient Education: Patient [...] blood pressure. 01/28/2015 Appointment: [phone] [facility] (15 min) Moderate 01/28/2015 Patient [...] worsen. 10/01/2014 Appointment: [facility]Ptel[phone] [facility] Follow up 10/01/2014 Patient Education: Patient Medication [...] worsen. 05/30/2014 Appointment: [facility] Med[facility]Ptel[facility] [phone] [facility] Follow up 05/30/2014 Patient Education: [...] 29. 01/23/2014 Appointment: [facility] Med[facility]Ptel[facility] [phone] [facility] Follow up 01/23/2014 Patient Education: Patient Medication [...] home. 12/26/2013 Appointment: [facility] Med[facility]Ptel[phone] [facility] [place] Follow up 12/26/2013 Patient Education: Patient Medication Summary Completed 12/26/2013 Patient Education: Hypertension Completed 12/26/2013 Visit Plan: Wound Instructions - Pt was instruced to keep the wound clean, wash with antibacterial soap, use triple antibiotic ointment, call if redness, pustular drainage, or any other acute conerns. 10/24/2013 App[facility]ment[phone] Procedure 10/24/2013 Patient Education: Patient [...] lesions. 10/17/2013 Appointment: [facility] Med[facility]el[phone] [facility] Follow up 10/17/2013 Patient Education: Patient Medication [...] like to have his Oxygen company - [employer] [facility] - help with arranging oxygen when he is in [facility]. 07/24/2013 Appointment: [facility] Med[facility]el[phone] [facility] [place] Follow up 07/24/2013 Patient Education: Patient Medication Summary Completed 07/24/2013 Patient Education: Hypertension Completed 07/24/2013 Appointment: [phone] [place] Lab Draw 05/05/2013 Patient Education: Patient Medication Summary Completed 05/05/2013 Patient Education: Hypertension Completed 05/05/2013 Appointment: [facility]el[phone] [facility] [place] Follow up 05/01/2013 Visit Plan: Diabetes [...] DAILY. 01/19/2013 Appointment: [facility] Med[facility]Ptel[phone] [facility] Follow up 01/19/2013 Patient Education: Patient Medication Summary Completed 01/19/2013 Visit Plan: WW-zyibkbvr-mppriclyysj today in the office- wound Instructions - Pt was instruced to keep the wound clean, wash with antibacterial soap, use triple antibiotic ointment, call if redness, pustular drainage, or any other acute conerns. 12/26/2012 Appointment: [facility] Pearl [facility]Ptel[facility] [phone] [phone] Other 12/26/2012 Patient Education: Patient Medication [...] glucose. 12/21/2012 Appointment: [facility]Ptel[phone] [facility] [place] Follow up 12/21/2012 Patient Education: Patient Medication Summary Completed 12/21/2012 Visit Plan: Parkinsons disease - rx for sinemet 25/100mg 1/ 2 pill in morning and 1/2 pill in evening, pt to let us know if the symptoms improve. Referral to Miguel at [facility] for gait instability. Diabetes Mellitus - Uncontrolled [...] and gait instability - recommended christina at [facility] - continue with back brace as it offers support for the patient. 11/30/2012 Appointment: Y[facility] Medley WPtel[facility] [phone] [facility] [place] Follow up 11/30/2012 Patient Education: Patient [...] been previously. 05/30/2012 Appointment: Yoli Medley [phone] [id number] [facility] Follow up [...] to seek support for his arches via curb builder christina and perhaps arch supports to be custom made or custom fitted. 04/14/2012 Appointment: Yoli Med[phone] [facility] Follow up 04/14/2012 Patient Education: Patient Medication Summary Completed 04/14/2012 Patient Education: Hypertension Completed 04/14/2012 Visit Plan: Rash- Discussed natural and expected course of this diagnosis and need to alert me if symtpoms do not follow expected course, or if any worse. RX sent to patient's pharmacy. 02/22/2012 App[facility]ment: [phone] [facility] [place] [address] 02/22/2012 Patient Education: Patient Medication Summary Completed [...] regimen. 01/13/2012 Appointment: [phone] [facility] [facility] Patient Preventative visit 01/13/2012 Patient Education: [...] controlled. 09/02/2011 Appointment: [phone] [facility] Other 09/02/2011 Patient Education: Patient Medication Summary Completed 09/02/2011 Patient Education: High Blood Pressure: Essential Hypertension Completed 2011 [facility]ment[phone] [facility] 08/06/2011 Patient Education: Patient [...] bid. 08/05/2011 Appointment: Yoli Medley WPtel: [id number] Other 08/05/2011 Patient Education: Patient Medication Summary [...] home. 07/01/2011 Appointment: [phone] [facility] Other 07/01/2011 Patient Education: Patient Medication Summary Completed 07/01/2011 Patient Education: High Blood Pressure: Essential Hypertension Completed 2011 Appointment: [facility] Med[phone] [facility] [facility] 06/25/2011 Patient Education: Patient Medication Summary Completed 06/25/2011 Patient Education: High Blood Pressure: Essential Hypertension Completed 2011 Referral: [facility] [place] Referral Initiated Referral: Dangelo Ford Referral Initiated Instructions Comment . Hypertension - well controlled - continue with current medications, continue with no added salt diet. Pt has been encouraged to exercise daily. The pt has been advised to call the office if there are any acute concerns about change in blood pressure readings at home. Pjngqprelxuxao-fwzxgmyh-cqtdqcu medication increased by Dr Ford and wants [...] based on previous levels of control. . Chronic hyponatremia - Increase fluids - [...] CHECK LABS STOP EXTRA SODIUM REFER TO [facility] [place], BACK PAIN, WEAKNESS . Low back pain- the patient was instructed in appropriate posture, need for weight loss to alleviate abdominal obesity that is worsening the patient's back pain. The patient is to call the office if the pain is worsening or does not improve. Kenalog injection today in the office. Refer for PT at [facility]- Low back pain, generalized weakness, Parkinsons Low iwrcbc-heqpfkg-ts need for increase sodium intake Hypertension - [...] office if symptoms worsen. . Hypertension - continue with current medications, continue with no added salt diet. Pt has been encouraged to exercise daily. The pt has been advised to call the office if there are any acute concerns about change in blood pressure readings at home. Bilateral thyroid nodules-voice hoarseness-Dr Ford to do total thyroidectomy on Wednesday Hqrbusmhfr-wqluc-nqrmig-due to thyroid nodules-will monitor symptoms for now [...] her DOP[employer] paperwork for health care surrogate. check labs recommend shingles vaccine . . Hypertension - continue with current medications, continue with no added salt diet. Pt has been encouraged to exercise daily. The pt has been advised to call the office if there are any acute concerns about change in blood pressure readings at home. Bilateral thyroid nodules-voice hoarseness-Dr Ford to do total thyroidectomy on Wednesday Ywmbmgusfb-blyfg-cmhtry-due to thyroid nodules-will monitor symptoms for now [...] change to current treatment. . Hypertension - well controlled - continue [...] Lab work- CBC, CMP, BNP . Abdominal rfteozjm-dwgfaosydati-MOS today Bronchitis - acute case of bronchitis [...] like to have his Oxygen company - [employer] - help with arranging oxygen when he is in [facility]. . Diabetes Mellitus - controlled - per [...] based on previous levels of control. . PZ-svmkcilo-tbtuopkptzc today in the office-wound Instructions - Pt [...] to seek support for his arches via curb builder christina and perhaps arch supports to be [...] are starting to become less controlled. . Parkinsons disease - rx for sinemet 25/100mg 1/2 pill in morning and 1/2 pill in evening, pt to let us know if the symptoms improve. Referral to Miguel at [facility] for gait instability. Diabetes Mellitus - Uncontrolled [...] and gait instability - recommended christina at [facility] - continue with back brace as it offers support for the patient.
--- NOTE | 2018-07-25 07:50 | Diagnostic Imaging Report ---
PROCEDURE: CT head without contrast. TECHNIQUE: Multiple contiguous axial images were obtained through the brain without the use of intravenous contrast. Auto Exposure Controls were utilized during the CT exam to meet ALARA standards for radiation dose reduction. DATE: July 25, 2018. COMPARISON: CT head November 26, 2015. INDICATION: 82-year-old male, vertigo. FINDINGS: There is proportional prominence of the ventricles and CSF spaces consistent with severe cerebral volume loss. The ventricles and cerebral spinal fluid spaces are of normal size and configuration for the patient's age. There is no mass effect or midline shift. There is no acute intracranial hemorrhage. There is no abnormal extra-axial fluid collection. The visualized portions of the paranasal sinuses, mastoid air cells and middle ears are well aerated. IMPRESSION: 1. No identified acute intracranial abnormality. 2. Severe cerebral volume loss. Dictated by: Dictated on workstation # [id number]
[2018-07-25 07:52] LABS: BILIRUBIN,URINE NEGATIVE (NEGATIVE); CLARITY,URINE CLEAR; COLOR,URINE YELLOW; GLUCOSE, URINE (UA) NEGATIVE (NEGATIVE); KETONES,URINE NEGATIVE (NEGATIVE); LEUKOCYTE ESTERASE ,URINE NEGATIVE (NEGATIVE); NITRITE,URINE NEGATIVE (NEGATIVE); PH,URINE 8 (5-9); PROTEIN,URINE NEGATIVE (NEGATIVE); UROBILINOGEN,URINE NORMAL (NORMAL)
[2018-07-25 07:59] LABS: BACTERIA,URINE NEGATIVE /HPF; SQUAMOUS EPITHELIAL CELL,UR RARE /HPF; WBC,URINE RARE /HPF
--- OUTSIDE RECORDS SUMMARY | 2018-07-25 07:59 | XMS REPORT | CCD ---
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 Name Role Phone PP Unavailable CCM Unavailable Summary Purpose Interface Exchange Insurance Providers Payer name Policy type / Coverage type Covered green party ID Effective Begin Date Effective End Date WPS Medicare Part B Medicare Part B [id number] 2018 Unknown [facility] [employer] INSUR Medicare Part B [id number] Unknown [place] [facility] Medicare Part B [id number] 2018 Unknown Family history Runs in the family Diagnosis Age At Onset Diabetes Unknown Mother Diagnosis Age At Onset Diabetes Unknown Hypertension Unknown Alzheimer's Disease Unknown Stroke Unknown Father Diagnosis Age At Onset No Family Disease Entered N/A Grandmother Diagnosis Age At Onset Alzheimer's Disease Unknown Social History Social History Element Codes Description Effective Dates Number of children Unknown 4 2 in [place], 2 in [place] 02/17/[address]: 8890141 Former smoker Quit in 195202/17/2018 Alcohol history Unknown occasionally drinks alcohol 02/17/2018 Frequency of drinks SNOMED CT: 726290953 Drinks rarely 02/17/2018 Employment Unknown 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 Unknown Has never used illegal drugs 07/02/2011 Marital status Unknown 07/01/2011 Living arrangements Unknown House 07/01/2011 Allergies, Adverse Reactions, Alerts Substance Reaction Codes Entered Date Inactivated Date Status feldene rash RxNorm: 8356 02/17/2018 No Inactive Date Active levaquin Unknown 02/17/2018 No Inactive Date Active bactrim rash RxNorm: 019466 02/17/2018 No Inactive Date Active CEPHALOSPORINS Unknown [...] Start Date Stop Date Status Fill Instructions January Silver U-100 Insulin 100 unit/mL (3 mL) subcutaneous RxNorm: 6830937 24 Unit(s) SQ daily 24 Unit(s) SQ daily 06/16/2018 06/10/2019 Active glipizide 10 mg tablet RxNorm: 341542 1 Tablet(s) PO BID 201805/25/2019 Active Senna-S 8.6 mg-50 mg tablet RxNorm: 317079 1 Tablet(s) PO daily and may dose up to twice a day if needed for constipation 05/04/2018 01/28/2019 Active Contour Next Test Strips RxNorm: 1 test Miscellaneous daily 07/27/2019 Active metformin ER 500 mg tablet,extended release 24 hr RxNorm: 598162 Tablet(s) TAKE ONE TABLET BY MOUTH TWICE DAILY 05/02/2018 04/26/2019 Active levothyroxine 175 mcg tablet RxNorm: 664815 Tablet(s) TAKE 1 TABLET BY MOUTH ONCE DAILY WED-WED, 1/2 TAB ON WEDNESDAY AND Wednesday03/02/2018 No Stop Date Active potassium chloride ER 10 mEq tablet,extended release(part/ cryst) RxNorm: 0399769 2 Tablet(s) PO daily x 3 days, then 1 pill three times a week when taking the lasix 02/01/2018 05/31/2018 Inactive finasteride 5 mg tablet RxNorm: 340457 1 Tablet(s) PO daily 07/30/2018 Active [SAVINGS FOR UNINSURED PATIENTS -- BIN:089483, PCN: ASPROD1, Group: [id number], ID# [id number], Process claim through [employer] for questions: . THIS IS NOT INSURANCE.] levothyroxine 175 mcg tablet RxNorm: 180469 TAKE 1 TABLET BY MOUTH ONCE DAILY 02/01/2018 03/01/2018 Inactive Basaglar KwikPen U-100 Insulin 100 unit/mL (3 mL) subcutaneous RxNorm: 4577217 24 Unit(s) SQ daily 12/29/201706/15 Inactive Lasix 20 mg tablet RxNorm: 029084 TAKE 1 TABLET ONCE DAILY FOR 1 WEEK AND THEN 1 TABLET EVERY 3 DAYS THEREAFTER 12/06/2017 09/01/2018 Active clotrimazole 1 % topical cream RxNorm: 737339 1 Application TOP BID to feet 09/16/2017 No Stop Date Active levothyroxine 175 mcg tablet RxNorm: 861318 TAKE ONE TABLET BY MOUTH ONCE DAILY 08/03/2017 01/31/2018 Inactive lisinopril 20 mg tablet RxNorm: 293032 Tablet(s) TAKE 1 TABLET BY MOUTH TWICE DAILY 05/13/2017 05/07/2018 Inactive Sinemet 25 mg-100 mg tablet RxNorm: 332172 Tablet(s) TAKE ONE TABLET BY MOUTH TWICE DAILY IN THE MORNING AND AT SUPPER 05/13/2017 05/07/2018 Inactive glipizide 10 mg tablet RxNorm: 545249 1 Tablet(s) PO BID 201705/30/2018 Inactive metformin ER 500 mg tablet,extended release 24 hr RxNorm: 876634 Tablet(s) TAKE ONE TABLET BY MOUTH TWICE DAILY 05/13/2017 05/01/2018 Inactive Basaglar KwikPen U-100 Insulin 100 unit/mL (3 mL) subcutaneous RxNorm: 3859058 24 Unit(s) SQ daily 05/13/201712/28 Inactive finasteride 5 mg tablet RxNorm: 448101 1 Tablet(s) PO daily 11/08/2017 Inactive [SAVINGS FOR UNINSURED PATIENTS -- BIN:753169, PCN: ASPROD1, Group: [id number] , ID# [id number], Process claim through [employer] for questions: . THIS IS NOT INSURANCE.] levothyroxine 175 mcg tablet RxNorm: 949216 1 Tablet(s) PO daily 05/13/2017 02/16/2018 Inactive Lasix 20 mg tablet RxNorm: Tablet(s) TAKE 1 TABLET BY MOUTH ONCE DAILY FOR 1 WEEK AND THEN TAKE 1 TABLET BY MOUTH EVERY 3 DAYS THEREAFTER 05/13/2017 07/27/2017 Inactive Basaglar KwikPen 100 unit/mL (3 mL) subcutaneous RxNorm: 6258272 24 Unit(s) SQ daily 05/07/2017 05/12/2017 Inactive Lasix 20 mg tablet RxNorm: 2 Tablet(s) PO daily x 3 days, then 1 pill three times a week thereafter 04/28/2017 No Stop Date Active triamcinolone acetonide 0.025 % topical cream RxNorm: 1785843 1 Application TOP BID 04/28/2017 02/16/2018 Inactive clotrimazole 1 % topical cream RxNorm: 200726 1 Application TOP BID 04/28/2017 09/15/2017 Inactive potassium chloride ER 10 mEq tablet,extended release(part/ cryst) RxNorm: 3775576 2 Tablet(s) PO daily x 3 days, then 1 pill three times a week when taking the lasix 04/28/2017 08/25/2017 Inactive Lasix 20 mg tablet RxNorm: Tablet(s) TAKE 1 TABLET BY MOUTH ONCE DAILY FOR 1 WEEK AND THEN TAKE 1 TABLET BY MOUTH EVERY 3 DAYS THEREAFTER 04/22/2017 05/12/2017 Inactive Lantus Solostar 100 unit/mL (3 mL) subcutaneous insulin pen RxNorm: 688655 24 Unit(s) SQ daily INJECT 24 UNITS DAILY OR DIRECTED 201605/06/2017 Inactive 1 box of 5 pens Basaglar KwikPen 100 unit/mL (3 mL) subcutaneous RxNorm: 7389147 24 Unit(s) SQ daily 03/02/2017 05/06/2017 Inactive Basaglar KwikPen 100 unit/mL (3 mL) subcutaneous RxNorm: 2473812 24 Unit(s) SQ daily 03/02/2017 03/01/2017 Inactive levothyroxine 175 mcg tablet RxNorm: 742498 1 Tablet(s) PO daily 02/02/2017 05/12/2017 Inactive Sinemet 25 mg-100 mg tablet RxNorm: 139897 TAKE ONE TABLET BY MOUTH TWICE DAILY IN THE MORNING AND AT SUPPER 12/30/2016 Inactive metformin ER 500 mg tablet,extended release 24 hr RxNorm: 219328 Tablet(s) TAKE ONE TABLET BY MOUTH TWICE DAILY 11/10/2016 05/12/2017 Inactive lisinopril 20 mg tablet RxNorm: 978339 Tablet(s) TAKE 1 TABLET BY MOUTH TWICE DAILY 11/10/2016 05/12/2017 Inactive levothyroxine 150 mcg tablet RxNorm: 481963 1 Tablet(s) PO daily 11/05/2016 02/01/2017 Inactive PLEASE LET PATIENT KNOW WE ARE GIVING HIM 150MCG INSTEAD OF 100MCG SO HE JUST TAKES 1 TAB DAILY. THANKS! Lantus Solostar 100 unit/mL (3 mL) subcutaneous insulin pen RxNorm: 027822 24 Unit(s) SQ daily INJECT 24 UNITS DAILY OR DIRECTED 201603/01/2017 Inactive 1 box of 5 pens Lantus Solostar 100 unit/mL (3 mL) subcutaneous insulin pen RxNorm: 854413 24 Unit(s) SQ daily INJECT 24 UNITS DAILY OR DIRECTED 201610/06/2016 Inactive please call patient with the [facility] levothyroxine 100 mcg tablet RxNorm: 008854 1.5 Tablet(s) PO daily 10/05/2016 11/04/2016 Inactive metformin ER 500 mg tablet,extended release 24 hr RxNorm: 447300 Tablet(s) TAKE ONE TABLET BY MOUTH TWICE DAILY 09/29/2016 11/09/2016 Inactive prednisone 20 mg tablet RxNorm: 877875 1 Tablet(s) PO BID 08/0608/10/2016 Inactive Kenalog 40 mg/mL suspension for injection RxNorm: 9901101 1 Milliliter(s) Inj 07/30/2016 07/30/2016 Inactive doxycycline hyclate 100 mg tablet RxNorm: 920409 1 Tablet(s) PO BID 07/30/2016 08/05/2016 Inactive glipizide 10 mg tablet RxNorm: 638939 1 Tablet(s) PO BID 201605/12/2017 Inactive Sinemet 25 mg-100 mg tablet RxNorm: 356186 TABLET(S) TAKE 1 TABLET BY MOUTH TWICE A DAY IN THE MORNING AND AT SUPPER 05/11/2016 11/06/2016 Inactive Patient requests 90 days supply metformin ER 500 mg tablet,extended release 24 hr RxNorm: 351963 TAKE ONE TABLET BY MOUTH TWICE DAILY 05/04/20162016 Inactive lisinopril 20 mg tablet RxNorm: 556308 TAKE 1 TABLET BY MOUTH TWICE DAILY 04/14/2016 11/09/2016 Inactive Sinemet 25 mg-100 mg tablet RxNorm: 349733 1 Tablet(s) PO BID TAKE 1 TABLET BY MOUTH TWICE A DAY IN THE MORNING AND AT SUPPER 03/23/2016 02/16/2018 Inactive Lasix 20 mg tablet RxNorm: 192899 Tablet(s) TAKE 1 TABLET BY MOUTH ONCE DAILY FOR 1 WEEK AND THEN TAKE 1 TABLET BY MOUTH EVERY 3 DAYS THEREAFTER 03/23/2016 06/06/2016 Inactive Lantus Solostar 100 unit/mL (3 mL) subcutaneous insulin pen RxNorm: 948893 24 Unit(s) SQ daily INJECT 24 UNITS DAILY OR DIRECTED 201510/05/2016 Inactive please call patient with the [facility] hydrocodone 5 mg-acetaminophen 325 mg tablet RxNorm: 319573 1-2 Tablet(s) PO Q6- 8H 01/21/2016 02/16/2018 Inactive Kenalog 40 mg/mL suspension for injection RxNorm: 7849640 1 Milliliter(s) Inj 01/20/2016 01/20/2016 Inactive Sinemet 25 mg-100 mg tablet RxNorm: 324085 Tablet(s) TAKE 1 TABLET BY MOUTH TWICE A DAY IN THE MORNING AND AT SUPPER 11/29/2015 03/22/2016 Inactive Lantus Solostar 100 unit/mL (3 mL) subcutaneous insulin pen RxNorm: 789396 20 Unit(s) SQ daily INJECT 20 UNITS DAILY OR DIRECTED 201501/20/2016 Inactive please call patient with the [facility] Sinemet 25 mg-100 mg tablet RxNorm: 333180 Tablet(s) TAKE 1 TABLET BY MOUTH TWICE A DAY IN THE MORNING AND AT SUPPER 11/22/2015 11/28/2015 Inactive Lantus Solostar 100 unit/mL (3 mL) subcutaneous insulin pen RxNorm: 066718 Unit( s) INJECT 20 UNITS DAILY OR DIRECTED 11/22/2015 11/24/2015 Inactive Lantus Solostar 100 unit/mL (3 mL) subcutaneous insulin pen RxNorm: 371649 INJECT 20 UNITS DAILY OR DIRECTED 09/27/2015 11/21/2015 Inactive Lasix 20 mg tablet RxNorm: 790436 TAKE 1 TABLET BY MOUTH ONCE DAILY FOR 1 WEEK AND THEN TAKE 1 TABLET BY MOUTH EVERY 3 DAYS THEREAFTER 09/2512/10/2015 Inactive Lasix 20 mg tablet RxNorm: 809364 1 Tablet(s) PO daily 201509/25/2015 Inactive glipizide 10 mg tablet RxNorm: 782094 1 Tablet(s) BID TAKE 1 TABLET BY MOUTH DAILY. 06/25/2015 06/28/2016 Inactive metformin ER 500 mg tablet,extended release 24 hr RxNorm: 801339 1 Tablet(s) PO BID 04/01/2015 05/05/2016 Inactive lisinopril 20 mg tablet RxNorm: 721044 Tablet(s) TAKE 1 TABLET BY MOUTH TWICE DAILY. 03/25/2015 07/22/2015 Inactive metformin ER 500 mg tablet,extended release 24 hr RxNorm: 278297 1 Tablet(s) PO BID 03/25/2015 03/31/2015 Inactive doxycycline hyclate 100 mg capsule RxNorm: 4677281 1 Capsule(s) PO BID 03/19/2015 04/01/2015 Inactive Sinemet 25 mg-100 mg tablet RxNorm: 858612 TAKE 1 TABLET BY MOUTH TWICE A DAY IN THE MORNING AND AT SUPPER 03/05/201511/20 Inactive doxycycline hyclate 100 mg capsule RxNorm: 3975186 1 Capsule(s) PO BID 02/20/2015 02/26/2015 Inactive metolazone 5 mg tablet RxNorm: 719794 1 Tablet(s) PO daily 07/201403/21/2015 Inactive spironolactone 50 mg tablet RxNorm: 244119 1 Tablet(s) PO daily 02/11/2015 01/02/2016 Inactive Efudex 5 % topical cream RxNorm: 218606 1 TOP BID 01/28/2015 02/10/2015 Inactive potassium chloride ER 10 mEq tablet,extended release(part/ cryst) RxNorm: 7238931 1 Tablet(s) PO daily x 1week then three times weekly with the lasix. 01/28/2015 05/27/2015 Inactive Lasix 20 mg tablet RxNorm: 804840 1 Tablet(s) PO daily x 1 week, then every three days thereafter 01/28/20152015 Inactive lisinopril 20 mg tablet RxNorm: 884112 Tablet(s) TAKE 1 TABLET BY MOUTH TWICE DAILY. 11/23/2014 03/22/2015 Inactive lisinopril 20 mg tablet RxNorm: 512028 TAKE 1 TABLET BY MOUTH TWICE DAILY. 11/22/2014 11/22/2014 Inactive Sinemet 25 mg-100 mg tablet RxNorm: 716401 1 Tablet(s) PO BID TAKE 1 TABLET BY MOUTH TWICE A DAY IN THE MORNING AND AT SUPPER 10/01/2014 03/04/2015 Inactive [ SAVINGS FOR UNINSURED PATIENTS -- BIN:624301, PCN: ASPROD1, Group: [id number], ID# [id number], Process claim through [employer] for questions: . THIS IS NOT INSURANCE.] glipizide 10 mg tablet RxNorm: 105835 1 Tablet(s) BID TAKE 1 TABLET BY MOUTH DAILY. 10/01/2014 06/24/2015 Inactive glipizide 10 mg tablet RxNorm: 978844 Tablet(s) daily TAKE 1 TABLET BY MOUTH DAILY. 08/06/2014 09/30/2014 Inactive Lantus Solostar 100 unit/mL (3 mL) subcutaneous insulin pen RxNorm: 577607 20 Unit(s) SQ daily 07/11/2014 09/26/2015 Inactive [SAVINGS FOR UNINSURED PATIENTS -- BIN:326974, PCN: ASPROD1, Group: [id number], ID# [id number], Process claim through [employer] for questions: . THIS IS NOT INSURANCE.] metformin ER 500 mg tablet,extended release 24 hr RxNorm: 216145 1 Tablet(s) PO BID 07/10/2014 03/24/2015 Inactive lisinopril 20 mg tablet RxNorm: 333450 Tablet(s) TAKE 1 TABLET BY MOUTH TWICE DAILY. 07/10/2014 11/21/2014 Inactive Lantus Solostar 100 unit/mL (3 mL) subcutaneous insulin pen RxNorm: 743601 20 Unit(s) SQ daily 05/30/2014 07/10/2014 Inactive [SAVINGS FOR UNINSURED PATIENTS -- BIN:420848, PCN: ASPROD1, Group: [id number], ID# [id number], Process claim through [employer], for questions: . THIS IS NOT INSURANCE.] Sinemet 25 mg-100 mg tablet RxNorm: 647672 Tablet(s) TAKE 1 TABLET BY MOUTH TWICE A DAY IN THE MORNING AND AT SUPPER 05/30/2014 09/30/2014 Inactive [SAVINGS FOR UNINSURED PATIENTS -- BIN:379527, PCN: ASPROD1, Group: [id number], ID# [id number], Process claim through [employer], for questions: . THIS IS NOT INSURANCE.] lisinopril 20 mg tablet RxNorm: 343455 TAKE 1 TABLET BY MOUTH TWICE DAILY. 04/09/2014 04/08/2014 Inactive glipizide 10 mg tablet RxNorm: 141620 TAKE 1 TABLET BY MOUTH TWICE DAILY. 04/09/2014 08/05/2014 Inactive glipizide 10 mg tablet RxNorm: 613277 TAKE 1 TABLET BY MOUTH TWICE DAILY. 04/09/2014 04/08/2014 Inactive lisinopril 20 mg tablet RxNorm: 802806 TAKE 1 TABLET BY MOUTH TWICE DAILY. 04/09/2014 07/09/2014 Inactive lisinopril 20 mg tablet RxNorm: 572125 Tablet(s) TAKE ONE TABLET BY MOUTH TWICE DAILY 04/06/2014 04/08/2014 Inactive [SAVINGS FOR UNINSURED PATIENTS -- BIN:196142 , PCN: ASPROD1, Group: [id number], ID# [id number], Process claim through [employer], for questions: . THIS IS NOT INSURANCE.] glipizide 10 mg tablet RxNorm: 307732 1 Tablet(s) PO BID 201304/08/2014 Inactive [SAVINGS FOR UNINSURED PATIENTS -- BIN:294042, PCN: ASPROD1, Group: [id number], ID # [id number], Process claim through [employer], for questions: . THIS IS NOT INSURANCE.] pravastatin 10 mg tablet RxNorm: 307357 TAKE ONE TABLET BY MOUTH EVERY DAY 02/26/2014 05/26/2014 Inactive Sinemet 25 mg-100 mg tablet RxNorm: 736626 TAKE 1 TABLET BY MOUTH TWICE A DAY IN THE MORNING AND AT SUPPER 01/26/201401/25 Inactive Sinemet 25 mg-100 mg tablet RxNorm: 914180 Tablet(s) TAKE 1 TABLET BY MOUTH TWICE A DAY IN THE MORNING AND AT SUPPER 01/26/2014 05/29/2014 Inactive [SAVINGS FOR UNINSURED PATIENTS -- BIN:379493, PCN: ASPROD1, Group: [id number], ID# [id number], Process claim through [employer] for questions: . THIS IS NOT INSURANCE.] Sinemet 25 mg-100 mg tablet RxNorm: 429090 TAKE 1 TABLET BY MOUTH TWICE A DAY IN THE MORNING AND AT SUPPER 01/26/201401/25 Inactive Sinemet 25 mg-100 mg tablet RxNorm: 497164 TAKE 1 TABLET BY MOUTH TWICE A DAY IN THE MORNING AND AT SUPPER 01/26/201401/25 Inactive pantoprazole 40 mg tablet,delayed release RxNorm: 934590 TAKE 1 TABLET DAILY 01/25/2014 10/07/2016 Inactive finasteride 5 mg tablet RxNorm: 409824 1 Tablet(s) PO daily 12/201309/30/2014 Inactive [SAVINGS FOR UNINSURED PATIENTS -- BIN:306424, PCN: ASPROD1, Group: [id number] , ID# [id number], Process claim through [employer] for questions: . THIS IS NOT INSURANCE.] sucralfate 100 mg/mL oral suspension RxNorm: 927017 10 Milliliter(s) PO QID 01/23/2014 09/30/2014 Inactive dispense qs x 1 month lisinopril 20 mg tablet RxNorm: 357571 TAKE ONE TABLET BY MOUTH TWICE DAILY 12/27/2013 03/26/2014 Inactive pantoprazole 40 mg tablet,delayed release RxNorm: 802116 1 Tablet(s) PO daily 12/26/2013 12/25/2013 Inactive [SAVINGS FOR UNINSURED PATIENTS -- BIN:743968, PCN: ASPROD1, Group: [id number], ID# [id number], Process claim through [employer], for questions: . THIS IS NOT INSURANCE.] pantoprazole 40 mg tablet,delayed release RxNorm: 077265 1 Tablet(s) PO daily 12/26/2013 12/20/2014 Inactive [SAVINGS FOR UNINSURED PATIENTS -- BIN:115423, PCN: ASPROD1, Group: [id number], ID# [id number], Process claim through [employer], for questions: . THIS IS NOT INSURANCE.] gemfibrozil 600 mg tablet RxNorm: 968887 1 Tablet(s) PO BID 11/201310/23/2013 Inactive gemfibrozil 600 mg tablet RxNorm: 913199 1 Tablet(s) PO BID 11/201309/30/2014 Inactive [SAVINGS FOR UNINSURED PATIENTS -- BIN:642009, PCN: ASPROD1, Group: [id number] , ID# [id number], Process claim through [employer], for questions: . THIS IS NOT INSURANCE.] finasteride 5 mg tablet RxNorm: 845594 1 Tablet(s) PO daily 04/201301/24/2014 Inactive [SAVINGS FOR UNINSURED PATIENTS -- BIN:277333, PCN: ASPROD1, Group: [id number] , ID# [id number], Process claim through [employer], for questions: . THIS IS NOT INSURANCE.] Lantus Solostar 100 unit/mL (3 mL) subcutaneous insulin pen RxNorm: 850871 20 Unit(s) SQ daily 10/09/2013 05/29/2014 Inactive [SAVINGS FOR UNINSURED PATIENTS -- BIN:741882, PCN: ASPROD1, Group: [id number], ID# [id number], Process claim through [employer], for questions: . THIS IS NOT INSURANCE.] glipizide 10 mg tablet RxNorm: 568029 1 Tablet(s) PO daily 04/05/2014 Inactive [SAVINGS FOR UNINSURED PATIENTS -- BIN:860340, PCN: ASPROD1, Group: [id number] , ID# [id number], Process claim through [employer] for questions: . THIS IS NOT INSURANCE.] Lantus Solostar 100 unit/mL (3 mL) subcutaneous insulin pen RxNorm: 161040 20 Unit(s) SQ daily 07/18/2013 10/08/2013 Inactive Sinemet 25 mg-100 mg tablet RxNorm: 122498 1 Tablet(s) PO BID one pill in morning , one at supper 07/10/2013 01/25/2014 Inactive Sinemet 25 mg-100 mg tablet RxNorm: 058634 1 Tablet(s) PO BID one pill in morning , one at supper 04/24/2013 07/09/2013 Inactive metformin ER 500 mg tablet,extended release 24 hr RxNorm: 937247 1 Tablet(s) PO BID 04/24/2013 04/18/2014 Inactive glipizide 10 mg tablet RxNorm: 546541 1 Tablet(s) PO daily 09/201310/08/2013 Inactive lisinopril 20 mg tablet RxNorm: 283013 1 Tablet(s) PO BID 04/2410/20/2013 Inactive pravastatin 10 mg tablet RxNorm: 521939 1 Tablet(s) PO daily 10/20/2013 Inactive Lantus Solostar 100 unit/mL (3 mL) subcutaneous insulin pen RxNorm: 132691 20 Unit(s) SQ daily 04/24/2013 07/17/2013 Inactive glipizide 10 mg tablet RxNorm: 436336 1 Tablet(s) PO daily 05/201304/23/2013 Inactive glipizide 10 mg tablet RxNorm: 148418 1 Tablet(s) PO daily 05/201204/19/2013 Inactive Lantus Solostar 100 unit/mL (3 mL) subcutaneous insulin pen RxNorm: 802567 16 Unit(s) SQ daily 03/20/2013 04/23/2013 Inactive Sinemet 25 mg-100 mg tablet RxNorm: 560675 1 Tablet(s) PO BID one pill in morning , one at supper 01/20/2013 04/23/2013 Inactive Lantus Solostar 100 unit/mL (3 mL) subcutaneous insulin pen RxNorm: 963169 16 Unit(s) SQ daily 01/19/2013 01/25/2013 Inactive Sinemet 25 mg-100 mg tablet RxNorm: 729426 1 Tablet(s) PO BID one pill in morning , one at supper 01/19/2013 01/19/2013 Inactive glipizide 10 mg tablet RxNorm: 974909 1 Tablet(s) PO BID 201203/19/2013 Inactive Lantus Solostar 100 unit/mL (3 mL) Sub-Q Insulin Pen RxNorm: 107278 12 Unit(s) SQ daily 12/21/2012 01/18/2013 Inactive lisinopril 20 mg tablet RxNorm: 027194 1 Tablet(s) PO BID 12/0804/23/2013 Inactive metformin ER 500 mg tablet,extended release 24 hr RxNorm: 080163 1 Tablet(s) PO BID 11/30/2012 04/23/2013 Inactive Lantus Solostar 100 unit/mL (3 mL) Sub-Q Insulin Pen RxNorm: 948605 5 Unit(s) SQ daily 11/30/2012 12/07/2012 Inactive FINASTERIDE TAB 5MG RxNorm: 10/03/2012 Inactive lisinopril 20 mg tablet RxNorm: 053089 1 Tablet(s) PO BID 09/0812/06/2012 Inactive glipizide 10 mg tablet RxNorm: 935328 1 Tablet(s) PO BID 201212/30/2012 Inactive metronidazole 500 mg tablet RxNorm: 831014 1 Tablet(s) PO TID 05/30/2012 06/08/2012 Inactive metformin ER 500 mg tablet,extended release 24 hr RxNorm: 951411 2 Tablet(s) PO daily 04/22/2012 11/29/2012 Inactive metformin ER 500 mg tablet,extended release 24 hr RxNorm: 437593 2 Tablet(s) PO daily 04/21/2012 04/21/2012 Inactive ketoconazole 2 % Topical Cream RxNorm: 452696 1 Application TOP BID 04/14/2012 05/04/2012 Inactive ketoconazole 2 % Shampoo RxNorm: 495069 1 Application TOP every other day apply to feet, leave on for 5 minutes, then rinse. 04/14/2012 04/27/2012 Inactive clotrimazole 1 % Topical Cream RxNorm: 542150 1 Application TOP BID 02/22/2012 04/03/2012 Inactive glipizide 10 mg tablet RxNorm: 904276 1 Tablet(s) PO BID 201106/18/2012 Inactive lisinopril 20 mg tablet RxNorm: 091906 1 Tablet(s) PO BID 09/0108/26/2012 Inactive metformin ER 500 mg tablet,extended release 24 hr RxNorm: 948642 2 Tablet(s) PO daily 08/10/2011 04/20/2012 Inactive metformin ER 1,000 mg 24 hr Tab Ctrl Rel RxNorm: 728089 1 Tablet(s) PO daily 07/28/2011 08/09/2011 Inactive Kombiglyze XR 5 mg-1,000 mg 24 hr Tab RxNorm: 8922760 1 Tablet(s) PO daily 07/28/2011 07/27/2011 Inactive Kombiglyze XR 5 mg-1,000 mg 24 hr Tab RxNorm: 9927973 1 Tablet(s) PO daily 07/28/2011 07/28/2011 Inactive glipizide 10 mg tablet RxNorm: 256019 1 Tablet(s) PO BID 201107/27/2011 Inactive glipizide 10 mg Tab RxNorm: 341864 1 Tablet(s) PO BID 201106/16/2011 Inactive glipizide 10 mg Tab RxNorm: 303336 1 Tablet(s) PO BID 201006/15/2011 Inactive glipizide 10 mg Tab RxNorm: 178894 1 Tablet(s) PO BID 201004/01/2011 Inactive glipizide 10 mg Tab RxNorm: 375331 Tablet(s) PO BID 201003/31/2011 Inactive Calcium + Vitamin D 600 mg calcium-200 unit tablet RxNorm: 679019 1 Tablet(s) PO BID No Start Date Active pantoprazole 40 mg tablet,delayed release RxNorm: 699160 1 Tablet(s) PO daily No Start Date 12/25/2013 Inactive Sinemet 25 mg-100 mg tablet RxNorm: 309567 1/2 Tablet(s) PO BID one pill in morning, one at supper No Start Date 01/18 Inactive levothyroxine 100 mcg tablet RxNorm: 804450 1 Tablet(s) PO daily No Start Date 10/04/2016 Inactive lisinopril 20 mg Tab RxNorm: 104848 1 Tablet(s) PO BID No Start Date 09/01/2011 Inactive hydrocodone 5 mg-acetaminophen 325 mg tablet RxNorm: 887200 1-2 Tablet(s) PO Q6- 8H No Start Date 01/20/2016 Inactive pravastatin 10 mg tablet RxNorm: 834450 1 Tablet(s) PO daily No Start Date 04/23/2013 Inactive Medication Administered Medication Codes Instructions Start Date Status Kenalog 40 mg/mL suspension for injection RxNorm: 1412788 1Milliliter 07/30/2016 No longer Active Kenalog 40 mg/mL suspension for injection RxNorm: 1130614 1Milliliter 01/20/2016 No longer Active Immunizations Vaccine Codes Date Status PPD Unknown 03/20/2015 completed Pneumococcal (Adult) CVX: 133 03/08/2015 completed Pneumococcal (Adult) CVX: 33 01/23/2014 completed Influenza CVX: 141 01/19/2013 completed Assessments Condition Codes Effective Dates 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 ICD-9: 244.8 05/04/2018 Essential (primary) hypertension ICD-10: I10 ICD-9: 401.9 05/04/2018 Slow transit constipation ICD-10: K59.01 ICD-9: 564.01 05/04/2018 Type 2 diabetes mellitus with hyperglycemia ICD-10: E11.65 ICD-9: 250.02 05/04/2018 Parkinson's disease ICD-10: G20 ICD-9: 332.0 05/04/2018 Encounter for general adult medical examination with abnormal findings ICD-10: Z00.01 ICD-9: V70.0 02/17/2018 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 ICD-9: 250.60 01/11/2018 Other specified polyneuropathies ICD-10: G62.89 ICD-9: 356.8 01/11/2018 Type 2 diabetes mellitus with hyperglycemia [...] 08/24/2016 Dysphonia ICD-10: R49.0 ICD-9: 784.42 08/24/2016 Abdominal distension (gaseous) ICD-10: R14.0 ICD-9: 787.3 08/06/2016 Acute bronchitis, unspecified ICD-10: J20.9 ICD-9: 466.0 08/06/2016 Cough ICD-10: R05 ICD-9: 786.2 08/06/2016 Acute upper respiratory infection, unspecified ICD-10: [...] 782.3 03/04/2015 ESSENTIAL HYPERTENSION ICD-9: 401.9 10/01 DIABETES TYPE II ICD-9: 250.00 2014 Parkinsons disease ICD-9: 332.0 2014 Back pain ICD-9: 724.5 02/28/2014 Esophageal ulcer ICD-9: 530.20 2013 ESOPHAGEAL REFLUX ICD-9: 530.81 2013 ACTINIC KERATOSIS ICD-9: 702.0 2013 Diabetes type 2, uncontrolled ICD-9: 250.02 10/17/2013 ELEVATED PSA ICD-9: 790.93 10/17/2013 Sleep apnea ICD-9: 780.57 07/24/2013 Routine physicl lab exam ICD-9: V72.62 ENCNTR LONG-RX USE NEC ICD-9: V58.69 HYPERLIPIDEMIA ICD-9: 272.4 05/05/2013 Gait instability ICD-9: 781.2 11/30/2012 Abdominal pain ICD-9: 789.00 05/30/2012 Gastroenteritis ICD-9: 558.9 04/26/2012 Claw toe ICD-9: 735.5 04/14/2012 DERMATOPHYTOSIS OF FOOT ICD-9: 110.4 08/2011 Rash ICD-9: 782.1 02/22/2012 Constipation - functional ICD-9: 564.09 01/13/2012 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 08/06/2011 Sacroiliitis ICD-9: 720.2 08/05/2011 [place] ICD-9: 724.2 08/05/2011 Chronic hyponatremia ICD-9: 276.1 2011 Breast mass in male ICD-9: 611.72 2011 Prostate cancer screening ICD-9: V76.44 06/25/2011 [...] Code Item Item Code Result Date %Hba1C Yii625 % HbA1c 88581-9 7.1 % 02/17/2018 %Hba1C Ryi745 Gluc Ave 157 mg/dL 02/17/2018 Comp Metabolic Ppc960 NA 135 mEq/L 02/17/2018 Comp Metabolic Yig742 K 4.7 mEq/L 02/17/2018 Comp Metabolic Vwb102 CL 97 mEq/L 02/17/2018 Comp Metabolic Hbp371 CO2 27.0 mEq/L 02/17/2018 Comp Metabolic Rzc341 ANION GAP 16 02/17/2018 Comp Metabolic Xfe789 GLUCOSE 141 mg/dL 02/17/2018 Comp Metabolic Vmw625 Creat 1.5 mg/dL 02/17/2018 Comp Metabolic Zkw327 eGFR 48 ml/min/1.73m2 02/17/2018 Comp Metabolic Tuz610 BUN 29 mg/dL 02/17/2018 Comp Metabolic Cuw298 B/C Ratio 19.5 Ratio 02/17/2018 Comp Metabolic Mmc947 CALCIUM 9.4 mg/dL 02/17/2018 Comp Metabolic Yaw038 ALK PHOS 57 U/L 02/17/2018 Comp Metabolic Qpo711 AST(SGOT) 13 U/L 02/17/2018 Comp Metabolic Zct189 ALT(SGPT) 4 U/L 02/17/2018 Comp Metabolic Dif738 BILI T 0.6 mg/dL 02/17/2018 Comp Metabolic Sva369 ALBUMIN 4.2 g/dL 02/17/2018 Comp Metabolic Sle126 TPRO 6.7 g/dL 02/17/2018 Comp Metabolic Rlf823 GLOB 2.5 g/dL 02/17/2018 Comp Metabolic Crd062 A/G Ratio 1.7 Ratio 02/17/2018 Comp Metabolic Xny498 Osmo 278 mOsmo 02/17/2018 Tsh Ord6 TSH (3rd IS) 3.10 uIU/mL 02/17/2018 Free T4 Dep614 FREE T4 1.36 ng/dL 02/17/2018 Folate Ord36 Folate 19.00 ng/mL 01/11/2018 B12 Kin611 B12 342.00 pg/ml 01/11/2018 Cbc With Differential Ord2 WBC 7.35 K/ul 09/17/2017 Cbc With Differential Ord2 RBC 4.80 M/ul 09/17/2017 Cbc With Differential Ord2 HGB 15.1 g/dl 09/17/2017 Cbc With Differential Ord2 Neut% 61.5 % 09/17/2017 Cbc With Differential Ord2 HCT 45.0 % 09/17/2017 Cbc With Differential Ord2 Lymph% 26.3 % 09/17/2017 Cbc With Differential Ord2 MCV 93.8 fl 09/17/2017 Cbc With Differential Ord2 MCH 31.5 pg 09/17/2017 Cbc With Differential Ord2 Troup% 9.5 % 09/17/2017 Cbc With Differential Ord2 MCHC 33.6 pg 09/17/2017 Cbc With Differential Ord2 Eos% 2.4 % 09/17/2017 Cbc With Differential Ord2 PLT 181 K/ul 09/17/2017 Cbc With Differential Ord2 Baso% 0.3 % 09/17/2017 Cbc With Differential Ord2 Neut ABS# 4.52 K/ul 09/17/2017 Cbc With Differential Ord2 RDW 13.5 % 09/17/2017 Cbc With Differential Ord2 Lymph ABS# 1.93 K/ul 09/17/2017 Cbc With Differential Ord2 Troup ABS# 0.7 K/ul 09/17/2017 Cbc With Differential Ord2 Eos ABS# 0.2 K/ul 09/17/2017 Cbc With Differential Ord2 Baso ABS# 0.0 K/ul 09/17/2017 Comp Metabolic Ojb608 NA 134 mEq/L 09/17/2017 Comp Metabolic Vas583 K 4.4 mEq/L 09/17/2017 Comp Metabolic Eqi556 CL 98 mEq/L 09/17/2017 Comp Metabolic Yyi699 CO2 25.0 mEq/L 09/17/2017 Comp Metabolic Ncu865 ANION GAP 15 09/17/2017 Comp Metabolic Qso911 GLUCOSE 97 mg/dL 09/17/2017 Comp Metabolic Cro957 Creat 1.7 mg/dL 09/17/2017 Comp Metabolic Jlr677 eGFR 40 ml/min/1.73m2 09/17/2017 Comp Metabolic Jey682 BUN 28 mg/dL 09/17/2017 Comp Metabolic Ltz192 B/C Ratio 16.2 Ratio 09/17/2017 Comp Metabolic Djg666 CALCIUM 9.1 mg/dL 09/17/2017 Comp Metabolic Gmz209 ALK PHOS 76 U/L 09/17/2017 Comp Metabolic Adm461 AST(SGOT) 17 U/L 09/17/2017 Comp Metabolic Ykr166 ALT(SGPT) 15 U/L 09/17/2017 Comp Metabolic Bew259 BILI T 0.7 mg/dL 09/17/2017 Comp Metabolic Gzt930 ALBUMIN 4.1 g/dL 09/17/2017 Comp Metabolic Hzp083 TPRO 6.9 g/dL 09/17/2017 Comp Metabolic Eeo282 GLOB 2.8 g/dL 09/17/2017 Comp Metabolic Rgl746 A/G Ratio 1.5 Ratio 09/17/2017 Comp Metabolic Eos029 Osmo 274 mOsmo 09/17/2017 Free T4 Eya657 FREE T4 1.10 ng/dL 09/17/2017 Tsh Ord6 TSH (3rd IS) 5.75 uIU/mL 09/17/2017 Lipid Ord30 CHOL 210 mg/dL 09/17/2017 Lipid Ord30 HDL 40.0 mg/dl 09/17/2017 Lipid Ord30 TRIG 256 mg/dL 09/17/2017 Lipid Ord30 LDL 119 mg/dL 09/17/2017 Lipid Ord30 C/HDL 5.3 Ratio 09/17/2017 %Hba1C Smm606 % HbA1c 77065-6 6.8 % 09/17/2017 %Hba1C Pgp220 Gluc Ave 148 mg/dL 09/17/2017 Tsh Ord6 TSH (3rd IS) 4.14 uIU/mL 05/13/2017 Free T4 Kli829 FREE T4 1.29 ng/dL 05/13/2017 %Hba1C Htq944 % HbA1c 27803-1 7.0 % 05/13/2017 %Hba1C Dsf142 Gluc Ave 154 mg/dL 05/13/2017 Cbc With Differential Ord2 WBC 8.16 K/ul 02/02/2017 Cbc With Differential Ord2 RBC 4.42 M/ul 02/02/2017 Cbc With Differential Ord2 HGB 13.8 g/dl 02/02/2017 Cbc With Differential Ord2 HCT 41.1 % 02/02/2017 Cbc With Differential Ord2 Neut% 54.9 % 02/02/2017 Cbc With Differential Ord2 Lymph% 32.0 % 02/02/2017 Cbc With Differential Ord2 MCV 93.0 fl 02/02/2017 Cbc With Differential Ord2 MCH 31.2 pg 02/02/2017 Cbc With Differential Ord2 Troup% 9.6 % 02/02/2017 Cbc With Differential Ord2 Eos% 2.9 % 02/02/2017 Cbc With Differential Ord2 MCHC 33.6 pg 02/02/2017 Cbc With Differential Ord2 Baso% 0.6 % 02/02/2017 Cbc With Differential Ord2 PLT 151 K/ul 02/02/2017 Cbc With Differential Ord2 Neut ABS# 4.48 K/ul 02/02/2017 Cbc With Differential Ord2 RDW 14.1 % 02/02/2017 Cbc With Differential Ord2 Lymph ABS# 2.61 K/ul 02/02/2017 Cbc With Differential Ord2 Troup ABS# 0.8 K/ul 02/02/2017 Cbc With Differential Ord2 Eos ABS# 0.2 K/ul 02/02/2017 Cbc With Differential Ord2 Baso ABS# 0.1 K/ul 02/02/2017 Free T4 Hkl715 FREE T4 1.23 ng/dL 02/02/2017 %Hba1C Apo820 % HbA1c 65043-3 7.5 % 02/02/2017 %Hba1C Fee143 Gluc Ave 169 mg/dL 02/02/2017 Comp Metabolic Dkx134 NA 134 mEq/L 02/02/2017 Comp Metabolic Etw321 K 4.4 mEq/L 02/02/2017 Comp Metabolic Ond929 CL 99 mEq/L 02/02/2017 Comp Metabolic Hgn059 CO2 26.0 mEq/L 02/02/2017 Comp Metabolic Fcg147 ANION GAP 13 02/02/2017 Comp Metabolic Viy149 GLUCOSE 256 mg/dL 02/02/2017 Comp Metabolic Qih471 Creat 1.6 mg/dL 02/02/2017 Comp Metabolic Wae498 eGFR 45 ml/min/1.73m2 02/02/2017 Comp Metabolic Why300 BUN 26 mg/dL 02/02/2017 Comp Metabolic Dhu896 B/C Ratio 16.6 Ratio 02/02/2017 Comp Metabolic Fpb765 CALCIUM 8.7 mg/dL 02/02/2017 Comp Metabolic Prs096 ALK PHOS 63 U/L 02/02/2017 Comp Metabolic Omk033 AST(SGOT) 11 U/L 02/02/2017 Comp Metabolic Vzr565 ALT(SGPT) 9 U/L 02/02/2017 Comp Metabolic Yvd220 BILI T 0.5 mg/dL 02/02/2017 Comp Metabolic Osm936 ALBUMIN 3.7 g/dL 02/02/2017 Comp Metabolic Lbl484 TPRO 6.1 g/dL 02/02/2017 Comp Metabolic Ryg561 GLOB 2.4 g/dL 02/02/2017 Comp Metabolic Jbs144 A/G Ratio 1.6 Ratio 02/02/2017 Comp Metabolic Dpq896 Osmo 282 mOsmo 02/02/2017 Tsh Ord6 hTSH II 9.43 uIU/mL 02/02/2017 Total T3 Ord42 TT3 0.59 ng/ml 07/14/2016 Free T4 Dlw664 FREE T4 1.14 ng/dL 07/14/2016 Comp Metabolic Amw560 NA 134 mEq/L 06/22/2016 Comp Metabolic Moh665 K 4.3 mEq/L 06/22/2016 Comp Metabolic Fcq517 CL 100 mEq/L 06/22/2016 Comp Metabolic Kil728 CO2 26.0 mEq/L 06/22/2016 Comp Metabolic Yse590 ANION GAP 12 06/22/2016 Comp Metabolic Mnt819 GLUCOSE 222 mg/dL 06/22/2016 Comp Metabolic Oil067 Creat 1.5 mg/dL 06/22/2016 Comp Metabolic Syu957 eGFR 49 ml/min/1.73m2 06/22/2016 Comp Metabolic Tnm091 BUN 23 mg/dL 06/22/2016 Comp Metabolic Rgf900 B/C Ratio 15.9 Ratio 06/22/2016 Comp Metabolic Hpg379 CALCIUM 9.0 mg/dL 06/22/2016 Comp Metabolic Vvg586 ALK PHOS 59 U/L 06/22/2016 Comp Metabolic Prt533 AST(SGOT) 13 U/L 06/22/2016 Comp Metabolic Uun251 ALT(SGPT) 11 U/L 06/22/2016 Comp Metabolic Ipy930 BILI T 0.5 mg/dL 06/22/2016 Comp Metabolic Fcp629 ALBUMIN 3.8 g/dL 06/22/2016 Comp Metabolic Eyi018 TPRO 6.2 g/dL 06/22/2016 Comp Metabolic Mfp709 GLOB 2.4 g/dL 06/22/2016 Comp Metabolic Cff179 A/G Ratio 1.6 Ratio 06/22/2016 Comp Metabolic Egh930 Osmo 279 mOsmo 06/22/2016 Tsh Ord6 hTSH II 0.44 uIU/mL 06/22/2016 Cbc With Differential Ord2 WBC 6.90 K/ul 06/22/2016 Cbc With Differential Ord2 RBC 4.50 M/ul 06/22/2016 Cbc With Differential Ord2 HGB 14.3 g/dl 06/22/2016 Cbc With Differential Ord2 Neut% 51.6 % 06/22/2016 Cbc With Differential Ord2 HCT 42.6 % 06/22/2016 Cbc With Differential Ord2 Lymph% 34.9 % 06/22/2016 Cbc With Differential Ord2 MCV 94.7 fl 06/22/2016 Cbc With Differential Ord2 MCH 31.8 pg 06/22/2016 Cbc With Differential Ord2 Troup% 9.9 % 06/22/2016 Cbc With Differential Ord2 MCHC 33.6 pg 06/22/2016 Cbc With Differential Ord2 Eos% 3.3 % 06/22/2016 Cbc With Differential Ord2 Baso% 0.3 % 06/22/2016 Cbc With Differential Ord2 PLT 165 K/ul 06/22/2016 Cbc With Differential Ord2 RDW 13.9 % 06/22/2016 Cbc With Differential Ord2 Neut ABS# 3.56 K/ul 06/22/2016 Cbc With Differential Ord2 Lymph ABS# 2.41 K/ul 06/22/2016 Cbc With Differential Ord2 Troup ABS# 0.7 K/ul 06/22/2016 Cbc With Differential Ord2 Eos ABS# 0.2 K/ul 06/22/2016 Cbc With Differential Ord2 Baso ABS# 0.0 K/ul 06/22/2016 Comp Metabolic Aev475 NA 134 mEq/L 04/27/2016 Comp Metabolic Mcn375 K 4.6 mEq/L 04/27/2016 Comp Metabolic Zxx255 CL 99 mEq/L 04/27/2016 Comp Metabolic Hwp377 CO2 27.0 mEq/L 04/27/2016 Comp Metabolic Zuo821 ANION GAP 13 04/27/2016 Comp Metabolic Zln012 GLUCOSE 178 mg/dL 04/27/2016 Comp Metabolic Wim452 Creat 1.4 mg/dL 04/27/2016 Comp Metabolic Lhu555 eGFR 53 ml/min/1.73m2 04/27/2016 Comp Metabolic Cge452 BUN 24 mg/dL 04/27/2016 Comp Metabolic Jnj081 B/C Ratio 17.5 Ratio 04/27/2016 Comp Metabolic Sqg706 CALCIUM 9.1 mg/dL 04/27/2016 Comp Metabolic Mmq573 ALK PHOS 72 U/L 04/27/2016 Comp Metabolic Uxm278 AST(SGOT) 16 U/L 04/27/2016 Comp Metabolic Yor325 ALT(SGPT) 12 U/L 04/27/2016 Comp Metabolic Oqr848 BILI T 0.6 mg/dL 04/27/2016 Comp Metabolic Tfp440 ALBUMIN 4.1 g/dL 04/27/2016 Comp Metabolic Ypm431 TPRO 6.8 g/dL 04/27/2016 Comp Metabolic Bvf530 GLOB 2.7 g/dL 04/27/2016 Comp Metabolic Xxt837 A/G Ratio 1.6 Ratio 04/27/2016 Comp Metabolic Ukz032 Osmo 277 mOsmo 04/27/2016 %Hba1C Exp658 % HbA1c 70151-5 7.2 % 04/27/2016 %Hba1C Mpd144 Gluc Ave 160 mg/dL 04/27/2016 Cbc With Differential Ord2 WBC 8.72 K/ul 04/27/2016 Cbc With Differential Ord2 RBC 4.83 M/ul 04/27/2016 Cbc With Differential Ord2 HGB 15.4 g/dl 04/27/2016 Cbc With Differential Ord2 Neut% 54.1 % 04/27/2016 Cbc With Differential Ord2 HCT 45.3 % 04/27/2016 Cbc With Differential Ord2 Lymph% 33.1 % 04/27/2016 Cbc With Differential Ord2 MCV 93.8 fl 04/27/2016 Cbc With Differential Ord2 MCH 31.9 pg 04/27/2016 Cbc With Differential Ord2 Troup% 9.7 % 04/27/2016 Cbc With Differential Ord2 Eos% 2.8 % 04/27/2016 Cbc With Differential Ord2 MCHC 34.0 pg 04/27/2016 Cbc With Differential Ord2 Baso% 0.3 % 04/27/2016 Cbc With Differential Ord2 PLT 159 K/ul 04/27/2016 Cbc With Differential Ord2 RDW 13.8 % 04/27/2016 Cbc With Differential Ord2 Neut ABS# 4.71 K/ul 04/27/2016 Cbc With Differential Ord2 Lymph ABS# 2.89 K/ul 04/27/2016 Cbc With Differential Ord2 Troup ABS# 0.9 K/ul 04/27/2016 Cbc With Differential Ord2 Eos ABS# 0.2 K/ul 04/27/2016 Cbc With Differential Ord2 Baso ABS# 0.0 K/ul 04/27/2016 Comp Metabolic Jmc490 NA 134 mEq/L 01/21/2016 Comp Metabolic Sms017 K 5.0 mEq/L 01/21/2016 Comp Metabolic Fcr126 CL 99 mEq/L 01/21/2016 Comp Metabolic Apu628 CO2 26.0 mEq/L 01/21/2016 Comp Metabolic Ocq865 ANION GAP 14 01/21/2016 Comp Metabolic Loc320 GLUCOSE 260 mg/dL 01/21/2016 Comp Metabolic Tye289 Creat 1.5 mg/dL 01/21/2016 Comp Metabolic Dty051 eGFR 50 ml/min/1.73m2 01/21/2016 Comp Metabolic Ajl688 BUN 18 mg/dL 01/21/2016 Comp Metabolic Yzk258 B/C Ratio 12.4 Ratio 01/21/2016 Comp Metabolic Okm686 CALCIUM 8.8 mg/dL 01/21/2016 Comp Metabolic Uum461 ALK PHOS 68 U/L 01/21/2016 Comp Metabolic Swu280 AST(SGOT) 16 U/L 01/21/2016 Comp Metabolic Iuk682 ALT(SGPT) 16 U/L 01/21/2016 Comp Metabolic Dus154 BILI T 0.5 mg/dL 01/21/2016 Comp Metabolic Nuz472 ALBUMIN 3.8 g/dL 01/21/2016 Comp Metabolic Hrj360 TPRO 6.3 g/dL 01/21/2016 Comp Metabolic Dkx075 GLOB 2.5 g/dL 01/21/2016 Comp Metabolic Cfa299 A/G Ratio 1.5 Ratio 01/21/2016 Comp Metabolic Uny765 Osmo 279 mOsmo 01/21/2016 Cbc With Differential Ord2 WBC 6.62 K/ul 01/21/2016 Cbc With Differential Ord2 RBC 4.55 M/ul 01/21/2016 Cbc With Differential Ord2 HGB 14.1 g/dl 01/21/2016 Cbc With Differential Ord2 Neut% 59.6 % 01/21/2016 Cbc With Differential Ord2 HCT 42.3 % 01/21/2016 Cbc With Differential Ord2 MCV 93.0 fl 01/21/2016 Cbc With Differential Ord2 Lymph% 28.9 % 01/21/2016 Cbc With Differential Ord2 MCH 31.0 pg 01/21/2016 Cbc With Differential Ord2 Troup% 8.9 % 01/21/2016 Cbc With Differential Ord2 [...] 1.91 K/ul 01/21/2016 Cbc With Differential Ord2 Troup ABS# 0.6 K/ul 01/21/2016 Cbc With Differential Ord2 Eos ABS# 0.2 K/ul 01/21/2016 Cbc With Differential Ord2 Baso ABS# 0.0 K/ul 01/21/2016 %Hba1C Tqd543 % HbA1c 28890-1 7.4 % 01/21/2016 %Hba1C Xcr116 Gluc Ave 166 mg/dL 01/21/2016 Metabolic Ord15 [...] Qnt Crqnt CRP 1.5 mg/dl 09/17/2015 %Hba1C Xxi003 % HbA1c 32238-5 7.1 % 09/17/2015 %Hba1C Azx125 Gluc Ave 157 mg/dL 09/17/2015 Cbc With [...] 38.2 % 08/06/2015 Cbc With Differential Ord2 Troup% 9.6 % 08/06/2015 Cbc With Differential Ord2 MCH 31.7 pg 08/06/2015 Cbc With Differential Ord2 MCHC 32.0 pg 08/06/2015 Cbc With Differential Ord2 Eos% 2.0 % 08/06/2015 Cbc With Differential Ord2 PLT 165 K/ul 08/06/2015 Cbc With Differential Ord2 Baso% 0.3 % 08/06/2015 Cbc With Differential Ord2 Neut ABS# 3.79 K/ul 08/06/2015 Cbc With Differential Ord2 RDW 14.8 % 08/06/2015 Cbc With Differential Ord2 Lymph ABS# 2.90 K/ul 08/06/2015 Cbc With Differential Ord2 Troup ABS# 0.7 K/ul 08/06/2015 Cbc With Differential Ord2 Eos ABS# 0.2 K/ul 08/06/2015 Cbc With Differential Ord2 Baso ABS# 0.0 K/ul 08/06/2015 Cbc With Differential Ord2 New Analyzer Notice Please note new ref ranges starting 05-01-2015 due to implemntation of new five part differential hematolgy analyzer. 08/06/2015 Comp Metabolic Xvx838 NA 132 mEq/L 08/06/2015 Comp Metabolic Eck108 K 4.6 mEq/L 08/06/2015 Comp Metabolic Rsm574 CL 98 mEq/L 08/06/2015 Comp Metabolic Oxb254 CO2 25.0 mEq/L 08/06/2015 Comp Metabolic Jll216 ANION GAP 14 08/06/2015 Comp Metabolic Yjg958 GLUCOSE 170 mg/dL 08/06/2015 Comp Metabolic Zxv408 Creat 1.5 mg/dL 08/06/2015 Comp Metabolic Nuc389 eGFR 46 ml/min/1.73m2 08/06/2015 Comp Metabolic Jhu863 BUN 21 mg/dL 08/06/2015 Comp Metabolic Kkx239 B/C Ratio 13.6 Ratio 08/06/2015 Comp Metabolic Jyx330 CALCIUM 8.9 mg/dL 08/06/2015 Comp Metabolic Ydx776 ALK PHOS 60 U/L 08/06/2015 Comp Metabolic Yug775 AST(SGOT) 16 U/L 08/06/2015 Comp Metabolic Vme743 ALT(SGPT) 18 U/L 08/06/2015 Comp Metabolic Nyo412 BILI T 0.4 mg/dL 08/06/2015 Comp Metabolic Ves176 ALBUMIN 3.8 g/dL 08/06/2015 Comp Metabolic Tox411 TPRO 6.3 g/dL 08/06/2015 Comp Metabolic Tfz802 GLOB 2.5 g/dL 08/06/2015 Comp Metabolic Hjq603 A/G Ratio 1.6 Ratio 08/06/2015 Comp Metabolic Nnx194 Osmo 271 mOsmo 08/06/2015 Tsh Ord6 hTSH II 0.95 uIU/mL 06/17/2015 Free T4 Pbn970 FREE T4 1.08 ng/dL 06/17/2015 Metabolic Ord15 [...] Ord15 CALCIUM 9.0 mg/dL 05/06/2015 Comp Metabolic Psz105 NA 143 mEq/L 03/04/2015 Comp Metabolic Vls467 K 4.5 mEq/L 03/04/2015 Comp Metabolic Snz404 CL 92 mEq/L 03/04/2015 Comp Metabolic Uvt848 CO2 24.0 mEq/L 03/04/2015 Comp Metabolic Sid080 ANION GAP 32 03/04/2015 Comp Metabolic Rcw021 GLUCOSE 72 mg/dL 03/04/2015 Comp Metabolic Xch107 Creat 1.5 mg/dL 03/04/2015 Comp Metabolic Vpp869 eGFR 48 ml/min/1.73m2 03/04/2015 Comp Metabolic Zhh932 BUN 27 mg/dL 03/04/2015 Comp Metabolic Tsn989 B/C Ratio 18.0 Ratio 03/04/2015 Comp Metabolic Kzy613 CALCIUM 9.1 mg/dL 03/04/2015 Comp Metabolic Aoy372 ALK PHOS 58 U/L 03/04/2015 Comp Metabolic Qob733 AST(SGOT) 16 U/L 03/04/2015 Comp Metabolic Imt245 ALT(SGPT) 13 U/L 03/04/2015 Comp Metabolic Iho550 BILI T 0.6 mg/dL 03/04/2015 Comp Metabolic Nxy437 ALBUMIN 4.0 g/dL 03/04/2015 Comp Metabolic Uyh321 TPRO 6.6 g/dL 03/04/2015 Comp Metabolic Bas487 GLOB 2.6 g/dL 03/04/2015 Comp Metabolic Vqu974 A/G Ratio 1.6 Ratio 03/04/2015 Comp Metabolic Jhh690 Osmo 289 mOsmo 03/04/2015 %Hba1C Adk884 % HbA1c 54294-9 7.3 % 01/28/2015 %Hba1C Lel236 Gluc Ave 163 mg/dL 01/28/2015 TSH 8230596 TSH 0.423 uIU/ML 10/01/2014 MICRALUR 9497071 MICRL MG/L 13.2 MG/L 10/01/2014 MICRALUR 1910560 XM.ALB/CRE 48.9 MG/GCR 10/01/2014 MICRALUR 3993097 CREAT MG/D 27 MG/DL 10/01/2014 MICRALUR 0338788 CRE/100 0.27 G/L 10/01/2014 A1C HPLC 7033061 A1C HPLC 46715-8 7.3 % 10/01/2014 TSH 1957829 TSH 0.612 uIU/ML 10/18/2013 A1C HPLC 3319322 A1C HPLC 54308-3 6.8 % 10/18/2013 GFR CALC 4696798 GFR AA >60 ML/MIN 10/18/2013 GFR CALC 0254118 GFR NON-AA 52.0L ML/MIN 10/18/2013 LIPID GRP HDL TEST 30 MG/DL 10/18/2013 LIPID GRP TRIG 425 MG/DL 10/18/2013 LIPID GRP TEST LDL HI TRIG MG/DL 10/18/2013 LIPID GRP CHOL 185 MG/DL 10/18/2013 LIPID GRP RCHOL/HDL 6.17 RATIO 10/18/2013 MICRALUR MICRL MG/L 15.6 MG/L 10/18/2013 MICRALUR [id number] XM.ALB/CRE 9.2 MG/GCR 10/18/2013 MICRALUR 1844623 CREAT MG/D 169 MG/DL 10/18/2013 MICRALUR 9669709 CRE/100 1.69 G/L 10/18/2013 CHEM 14 8861170 AST 20 U/L 10/18/2013 CHEM 14 3185378 ALT 13 IU/L 10/18/2013 CHEM 14 6285315 BUN 27 MG/DL 10/18/2013 CHEM 14 2007513 ALBUMIN 4.2 GM/DL 10/18/2013 CHEM 14 0607781 CHLORIDE 100 MMOL/L 10/18/2013 CHEM 14 3304939 BILI TOT 0.5 MG/DL 10/18/2013 CHEM 14 5766453 ALK PHOS 60 U/L 10/18/2013 CHEM 14 9967966 SODIUM 131 MMOL/L 10/18/2013 CHEM 14 4689358 CREATININE 1.32 MG/DL 10/18/2013 CHEM 14 3871778 CALCIUM 9.2 MG/DL 10/18/2013 CHEM 14 4479727 POTASSIUM 4.7 MMOL/L 10/18/2013 CHEM 14 5022637 PROT TOT 7.7 GM/DL 10/18/2013 CHEM 14 1471086 GLUCOSE 140 MG/DL 10/18/2013 CHEM 14 1069889 BICARB 24 MMOL/L 10/18/2013 CHEM 14 7662999 ANION GAP 7 MEQ/L 10/18/2013 PSA EQ 9548649 PSA EQ 7.79 NG/ML 10/18/2013 CBC 7585170 WBC 6.6 10e9/L 10/18/2013 CBC 3080412 RBC 4.58 10e12/L 10/18/2013 CBC 7305474 HGB 14.6 g/dL 10/18/2013 CBC 3187450 HCT DET 42.8 % 10/18/2013 CBC 4933097 MCV 93.4 fL 10/18/2013 CBC 3497533 MCH 31.9 pg 10/18/2013 CBC 1194649 MCHC 34.1 g/dL 10/18/2013 CBC 2347523 PLT 172 10e9/L 10/18/2013 CBC 0375649 MPV 9.3 fL 10/18/2013 CBC 0174540 JAYESH % 55.4 % 10/18/2013 CBC 3005252 LY % 33.0 % 10/18/2013 CBC 5657526 MON % 8.8 % 10/18/2013 CBC 5846648 EOS % 2.6 % 10/18/2013 CBC 6065372 BASO % 0.2 % 10/18/2013 CBC 3553306 RDW 12.7 % 10/18/2013 CBC 2211349 ABS JAYESH 3.66 10e9/L 10/18/2013 CBC 3418251 ABS LYMPH 2.18 10e9/L 10/18/2013 CBC 8610666 ABS MONO 0.58 10e9/L 10/18/2013 CBC 0733234 ABS EOS 0.17 10e9/L 10/18/2013 CBC 1199763 ABS BASO 0.01 10e9/L 10/18/2013 CBC 2428839 RDW-SD 42.6 fL 10/18/2013 CBC 0955727 WBC 6.1 10e9/L 05/05/2013 CBC 3226120 RBC 4.74 10e12/L 05/05/2013 CBC 5574158 HGB 14.7 g/dL 05/05/2013 CBC 3376168 HCT DET 43.6 % 05/05/2013 CBC 7283396 MCV 92.0 fL 05/05/2013 CBC 6598475 MCH 31.0 pg 05/05/2013 CBC 1909502 MCHC 33.7 g/dL 05/05/2013 CBC 5184612 PLT 168 10e9/L 05/05/2013 CBC 6811236 MPV 9.3 fL 05/05/2013 CBC 6701203 JAYESH % 53.2 % 05/05/2013 CBC 2940265 LY % 35.3 % 05/05/2013 CBC 8918995 MON % 8.7 % 05/05/2013 CBC 8059428 EOS % 2.5 % 05/05/2013 CBC 6933728 BASO % 0.3 % 05/05/2013 CBC 2748691 RDW 13.5 % 05/05/2013 CBC 6923653 ABS JAYESH 3.25 10e9/L 05/05/2013 CBC 5447387 ABS LYMPH 2.15 10e9/L 05/05/2013 CBC 8548696 ABS MONO 0.53 10e9/L 05/05/2013 CBC 1457995 ABS EOS 0.15 10e9/L 05/05/2013 CBC 0026619 ABS BASO 0.02 10e9/L 05/05/2013 CBC 0015426 RDW-SD 44.8 fL 05/05/2013 TSH 5409776 TSH 1.257 uIU/ML 05/05/2013 CHEM 14 1758075 AST 15 U/L 05/05/2013 CHEM 14 8516960 ALT 13 IU/L 05/05/2013 CHEM 14 0585260 BUN 22 MG/DL 05/05/2013 CHEM 14 4762058 ALBUMIN 4.2 GM/DL 05/05/2013 CHEM 14 9080324 CHLORIDE 104 MMOL/L 05/05/2013 CHEM 14 4323932 BILI TOT 0.6 MG/DL 05/05/2013 CHEM 14 5700394 ALK PHOS 52 U/L 05/05/2013 CHEM 14 6358421 SODIUM 137 MMOL/L 05/05/2013 CHEM 14 0857826 CREATININE 1.25 MG/DL 05/05/2013 CHEM 14 2803115 CALCIUM 9.1 MG/DL 05/05/2013 CHEM 14 8955995 POTASSIUM 5.0 MMOL/L 05/05/2013 CHEM 14 4929360 PROT TOT 6.7 GM/DL 05/05/2013 CHEM 14 6531040 GLUCOSE 142 MG/DL 05/05/2013 CHEM 14 4907893 BICARB 27 MMOL/L 05/05/2013 CHEM 14 9290147 ANION GAP 6 MEQ/L 05/05/2013 GFR CALC 1217843 GFR AA >60 ML/MIN 05/05/2013 GFR CALC 2033348 GFR NON-AA 56.0L ML/MIN 05/05/2013 A1C HPLC 0351193 A1C HPLC 76219-0 6.4 % 05/05/2013 LIPID GRP HDL TEST 32 MG/DL 05/05/2013 LIPID GRP TRIG 170 MG/DL 05/05/2013 LIPID GRP 1074162 TEST LDL 73 MG/DL 05/05/2013 LIPID GRP 1814402 CHOL 139 MG/DL 05/05/2013 LIPID GRP 0507828 RCHOL/HDL 4.34 RATIO 05/05/2013 A1C HPLC 7482759 A1C HPLC 07414-0 8.2 % 11/25/2012 GFR CALC 5934932 GFR AA >60 ML/MIN 11/25/2012 GFR CALC 0981174 GFR NON-AA 58.0L ML/MIN 11/25/2012 CHEM 14 3958892 AST 17 U/L 11/25/2012 CHEM 14 5930267 ALT 21 IU/L 11/25/2012 CHEM 14 3692573 BUN 20 MG/DL 11/25/2012 CHEM 14 0427436 ALBUMIN 4.4 GM/DL 11/25/2012 CHEM 14 7459685 CHLORIDE 99 MMOL/L 11/25/2012 CHEM 14 5777315 BILI TOT 0.6 MG/DL 11/25/2012 CHEM 14 9891648 ALK PHOS 50 U/L 11/25/2012 CHEM 14 4360355 SODIUM 129 MMOL/L 11/25/2012 CHEM 14 8524571 CREATININE 1.20 MG/DL 11/25/2012 CHEM 14 9006209 CALCIUM 9.2 MG/DL 11/25/2012 CHEM 14 4334003 POTASSIUM 5.1 MMOL/L 11/25/2012 CHEM 14 2715726 PROT TOT 6.7 GM/DL 11/25/2012 CHEM 14 6802508 GLUCOSE 196 MG/DL 11/25/2012 CHEM 14 6346641 BICARB 25 MMOL/L 11/25/2012 CHEM 14 5758334 ANION GAP 5 MEQ/L 11/25/2012 CBC 8702162 WBC 6.1 10e9/L 11/25/2012 CBC 1687929 RBC 4.78 10e12/L 11/25/2012 CBC 8538226 HGB 15.0 g/dL 11/25/2012 CBC 4419176 HCT DET 43.4 % 11/25/2012 CBC 4241243 MCV 90.8 fL 11/25/2012 CBC 1364800 MCH 31.4 pg 11/25/2012 CBC 7073980 MCHC 34.6 g/dL 11/25/2012 CBC 8466314 PLT 174 10e9/L 11/25/2012 CBC 2846845 MPV 9.5 fL 11/25/2012 CBC 6377308 JAYESH % 54.6 % 11/25/2012 CBC 1587474 LY % 32.9 % 11/25/2012 CBC 1732130 MON % 9.6 % 11/25/2012 CBC 8780014 EOS % 2.6 % 11/25/2012 CBC 0963160 BASO % 0.3 % 11/25/2012 CBC 6094124 RDW 12.9 % 11/25/2012 CBC 1886617 ABS JAYESH 3.33 10e9/L 11/25/2012 CBC 3549071 ABS LYMPH 2.01 10e9/L 11/25/2012 CBC 8296657 ABS MONO 0.59 10e9/L 11/25/2012 CBC 3553262 ABS EOS 0.16 10e9/L 11/25/2012 CBC 1836695 ABS BASO 0.02 10e9/L 11/25/2012 CBC 8437126 RDW-SD 42.3 fL 11/25/2012 LIPID GRP HDL TEST 39 MG/DL 11/25/2012 LIPID GRP TRIG 204 MG/DL 11/25/2012 LIPID GRP [id number] TEST LDL 100 MG/DL 11/25/2012 LIPID GRP CHOL 180 MG/DL 11/25/2012 LIPID GRP 7755438 RCHOL/HDL 4.62 RATIO 11/25/2012 CBC 7101651 WBC 7.8 10e9/L 01/13/2012 CBC 5101469 RBC 4.93 10e12/L 01/13/2012 CBC 1399062 HGB 15.3 g/dL 01/13/2012 CBC 4270329 HCT DET 43.6 % 01/13/2012 CBC 9337317 MCV 88.4 fL 01/13/2012 CBC 4539533 MCH 31.0 pg 01/13/2012 CBC 0996837 MCHC 35.1 g/dL 01/13/2012 CBC 5564166 PLT 173 10e9/L 01/13/2012 CBC 0035406 MPV 9.1 fL 01/13/2012 CBC 8915047 JAYESH % 57.6 % 01/13/2012 CBC 3370373 LY % 31.5 % 01/13/2012 CBC 7219719 MON % 8.8 % 01/13/2012 CBC 8428503 EOS % 1.8 % 01/13/2012 CBC 1423432 BASO % 0.3 % 01/13/2012 CBC 4454914 RDW 12.9 % 01/13/2012 CBC 4478719 ABS JAYESH 4.49 10e9/L 01/13/2012 CBC 8181617 ABS LYMPH 2.46 10e9/L 01/13/2012 CBC 2869469 ABS MONO 0.69 10e9/L 01/13/2012 CBC 1711775 ABS EOS 0.14 10e9/L 01/13/2012 CBC 5755756 ABS BASO 0.02 10e9/L 01/13/2012 CBC 5620130 RDW-SD 41.2 fL 01/13/2012 TSH 8239207 TSH 0.636 uIU/ML 01/13/2012 A1C HPLC 0269764 A1C HPLC 32361-2 7.9 % 01/13/2012 GFR CALC 2886928 GFR AA >60 ML/MIN 01/13/2012 GFR CALC 2427195 GFR NON-AA 59.0L ML/MIN 01/13/2012 CHEM 14 3317144 AST 21 U/L 01/13/2012 CHEM 14 8208636 ALT 23 IU/L 01/13/2012 CHEM 14 4488883 BUN 20 MG/DL 01/13/2012 CHEM 14 4494255 ALBUMIN 4.4 GM/DL 01/13/2012 CHEM 14 3137262 CHLORIDE 94 MMOL/L 01/13/2012 CHEM 14 3062787 BILI TOT 0.5 MG/DL 01/13/2012 CHEM 14 4798482 ALK PHOS 60 U/L 01/13/2012 CHEM 14 3474760 SODIUM 131 MMOL/L 01/13/2012 CHEM 14 2896459 CREATININE 1.20 MG/DL 01/13/2012 CHEM 14 7877867 CALCIUM 9.5 MG/DL 01/13/2012 CHEM 14 9531698 POTASSIUM 4.3 MMOL/L 01/13/2012 CHEM 14 8535448 PROT TOT 6.5 GM/DL 01/13/2012 CHEM 14 8540730 GLUCOSE 172 MG/DL 01/13/2012 CHEM 14 2304380 BICARB 26 MMOL/L 01/13/2012 CHEM 14 6559619 ANION GAP 11 MEQ/L 01/13/2012 Review of [...] lordosis 04/24/2013 None Full Exam - General 1995 Neurologic gait Conventional walking: wide-based 04/24/2013 None [...] - General 1994 Ears/Nose/Throat lips/teeth/gingiva Overall: benign gingiva 03/20/2013 None [...] distress 01/13/2012 None Full Exam - General 1995 Constitutional general appearance Overall: well nourished 01/13/2012 [...] firm 01/13/2012 None Full Exam - General 1995 [...] WOUN RTS (CULTURE OTHR SPECIMN AEROBIC) CPT-4: 54208 03/19/2015 DRAINAGE OF SKIN ABSCESS CPT-4: 35346 03/19/2015 ADMIN PNEUMOCOCCAL VACCINE SNOMED CT: 79528467 CPT-4: G0009 03/08/2015 PNEUMOCOCCAL VACC 13 THALIA IM Formatting Model/CDA Sections, Assigned to SNOMED CT: 14999867 CPT-4: 91431Ykurglh 03/08/2015 ADMIN PNEUMOCOCCAL VACCINE SNOMED CT: 71136775 CPT-4: G0009 01/23/2014 Pneumococcal Polysaccharide Vaccine, 23-Valent, Ad Assigned to/Merissa Sutton CPT-4: [id number] 01/23/2014 DESTRUCT PREMALG LESION CPT-4: 93193 10/24/2013 DESTRUCT PREMALG LES 2-14 CPT-4: 19970 10/24/2013 ROUTINE VENIPUNCTURE CPT-4: 46727 05/05/2013 PRESCRIP TRANSMIT VIA ERX SY CPT-4: G8553 04/24/2013 DESTRUCT PREMALG LESION CPT-4: 62584 12/26/2012 PRESCRIP TRANSMIT VIA ERX SY CPT-4: G8553 11/30/2012 ROUTINE VENIPUNCTURE CPT-4: 88726 11/25/2012 PRESCRIP TRANSMIT VIA ERX SY CPT-4: G8553 05/30/2012 PRESCRIP TRANSMIT VIA ERX SY CPT-4: G8553 04/14/2012 PRESCRIP TRANSMIT VIA ERX SY CPT-4: G8553 02/22/2012 ROUTINE VENIPUNCTURE CPT-4: 29023 01/13/2012 ROUTINE VENIPUNCTURE CPT-4: 76541 08/06/2011 ROUTINE VENIPUNCTURE CPT-4: 81810 06/25/2011 Vital Signs Date Vital 05/04/2018 Blood Pressure 1: 140/72 Code : 8480-6 BMI: 29.1 Code : 37801-0 Heart Rate 1 : 65 bpm Height: 6'2" SpO2: 98% Weight: 227 lbs 02/17/2018 Blood Pressure 1: 140/74 Code : 8480-6 BMI: 29.7 Code : 43140-4 Heart Rate 1 : 67 bpm Height: 6'2" SpO2: 98% Waist Measure (cm): 112 cm Weight: 231 lbs 01/11/2018 Blood Pressure 1: 140/80 Code : 8480-6 BMI: 29.4 Code : 99254-4 Heart Rate 1 : 72 bpm Height: 6'2" SpO2: 92% Weight: 229 lbs 09/16/2017 Blood Pressure 1: 136/78 Code : 8480-6 BMI: 28.8 Code : 94249-2 Heart Rate 1 : 74 bpm Height: 6'2" SpO2: 94% Weight: 224 lbs 07/13/2017 Blood Pressure 1: 142/78 Code : 8480-6 BMI: 29.3 Code : 63625-5 Heart Rate 1 : 67 bpm Height: 6'2" SpO2: 97% Weight: 228 lbs 05/13/2017 Blood Pressure 1: 154/82 Code : 8480-6 BMI: 30.0 Code : 39864-3 Heart Rate 1 : 65 bpm Height: 6'2" SpO2: 98% Weight: 234 lbs 04/28/2017 Blood Pressure 1: 134/78 Code : 8480-6 BMI: 29.7 Code : 56963-1 Heart Rate 1 : 73 bpm Height: 6'2" SpO2: 94% Weight: 231 lbs 04/15/2017 Blood Pressure 1: 152/74 Code : 8480-6 BMI: 29.7 Code : 75991-7 Heart Rate 1 : 64 bpm Height: 6'2" SpO2: 98% Weight: 231 lbs 02/04/2017 Blood Pressure 1: 140/78 Code : 8480-6 BMI: 30.0 Code : 73292-8 Heart Rate 1 : 83 bpm Height: 6'2" SpO2: 97% Weight: 234 lbs 10/12/2016 Blood Pressure 1: 148/68 Code : 8480-6 BMI: 29.3 Code : 07548-8 Heart Rate 1 : 65 bpm Height: 6'2" SpO2: 100% Weight: 228 lbs 10/08/2016 Blood Pressure 1: 148/68 Code : 8480-6 BMI: 29.3 Code : 58667-2 Heart Rate 1 : 65 bpm Height: 6'2" SpO2: 100% Weight: 228 lbs 8 oz 09/10/2016 Blood Pressure 1: 142/68 Code : 8480-6 BMI: 29.3 Code : 57017-7 Heart Rate 1 : 75 bpm Height: 6'2" SpO2: 97% Weight: 228 lbs 08/24/2016 Blood Pressure 1: 156/86 Code : 8480-6 BMI: 28.1 Code : 70364-4 Heart Rate 1 : 72 bpm Height: 6'2" SpO2: 97% Weight: 219 lbs 08/06/2016 Blood Pressure 1: 172/90 Code : 8480-6 BMI: 29.0 Code : 98140-7 Heart Rate 1 : 68 bpm Height: 6'2" SpO2: 98% Temperature: 36.1 (C) / 96.9 (F) Weight: 226 lbs 07/30/2016 Blood Pressure 1: 138/86 Code : 8480-6 BMI: 29.7 Code : 39379-8 Heart Rate 1 : 80 bpm Height: 6'2" SpO2: 95% Temperature: 36.5 (C) / 97.7 (F) Weight: 231 lbs 06/22/2016 Blood Pressure 1: 145/82 Code : 8480-6 Heart Rate 1: 77 bpm Respiratory Rate : 18 bpm SpO2: 97% Weight: 231 lbs 04/27/2016 Blood Pressure 1: 182/78 Code : 8480-6 Blood Pressure 1: 158/76 Code: 8480-6 BMI: 30.4 Code: 43254-2 Heart Rate 1: 69 bpm Height: 6'2" SpO2: 97% Weight: 237 lbs 03/23/2016 Blood Pressure 1: 140/82 Code : 8480-6 BMI: 30.4 Code : 92109-3 Heart Rate 1 : 77 bpm Height: 6'2" SpO2: 93% Weight: 237 lbs 01/20/2016 Blood Pressure 1: 142/80 Code : 8480-6 BMI: 31.2 Code : 02608-9 Heart Rate 1 : 64 bpm Height: 6'2" SpO2: 93% Weight: 243 lbs 12/16/2015 Blood Pressure 1: 138/88 Code : 8480-6 BMI: 30.3 Code : 06259-9 Heart Rate 1 : 62 bpm Height: 6'2" SpO2: 97% Weight: 236 lbs 12/09/2015 Blood Pressure 1: 198/92 Code : 8480-6 Blood Pressure 1: 152/70 Code: 8480-6 Blood Pressure 1: 148/80 Code: 8480-6 BMI: 30.3 Code: 22052-3 Heart Rate 1: 84 bpm Height: 6'2" Weight: 236 lbs 11/25/2015 Blood Pressure 1: 160/80 Code : 8480-6 BMI: 30.2 Code : 21068-1 Heart Rate 1 : 68 bpm Height: 6'2" SpO2: 96% Weight: 235 lbs 09/02/2015 Blood Pressure 1: 122/64 Code : 8480-6 BMI: 30.2 Code : 86238-5 Heart Rate 1 : 86 bpm Height: 6'2" SpO2: 98% Weight: 235 lbs 08/05/2015 Blood Pressure 1: 130/70 Code : 8480-6 Heart Rate 1: 81 bpm SpO2: 97% Weight: 233 lbs 07/25/2015 Blood Pressure 1: 142/80 Code : 8480-6 BMI: 30.0 Code : 10484-7 Heart Rate 1 : 74 bpm Height: 6'2" SpO2: 95% Weight: 234 lbs 06/03/2015 Blood Pressure 1: 150/68 Code : 8480-6 BMI: 30.0 Code : 15117-8 Heart Rate 1 : 66 bpm Height: 6'2" SpO2: 96% Weight: 234 lbs 03/19/2015 Blood Pressure 1: 154/78 Code : 8480-6 BMI: 30.3 Code : 30090-0 Heart Rate 1 : 63 bpm Height: 6'2" SpO2: 96% Weight: 236 lbs 03/04/2015 Blood Pressure 1: 124/68 Code : 8480-6 BMI: 30.2 Code : 68321-3 Heart Rate 1 : 60 bpm Height: 6'2" SpO2: 97% Weight: 235 lbs 02/20/2015 Blood Pressure 1: 160/84 Code : 8480-6 BMI: 30.8 Code : 34315-8 Heart Rate 1 : 79 bpm Height: 6'2" SpO2: 96% Weight: 240 lbs 02/11/2015 Blood Pressure 1: 170/102 Code: 8480-6 BMI: 31.1 Code: 67248-5 Heart Rate 1: 81 bpm Height: 6'2" SpO2: 96% Weight: 242 lbs 01/28/2015 Blood Pressure 1: 174/80 Code : 8480-6 Blood Pressure 2: 168/74 Code: 8480-6 BMI: 31.2 Code: 44730-4 Heart Rate 1: 74 bpm Height: 6'2" SpO2: 97% Weight: 243 lbs 10/01/2014 Blood Pressure 1: 152/84 Code : 8480-6 BMI: 30.4 Code : 13453-1 Heart Rate 1 : 80 bpm Height: 6'2" SpO2: 96% Weight: 237 lbs 05/30/2014 Blood Pressure 1: 140/82 Code : 8480-6 BMI: 30.6 Code : 05204-4 Heart Rate 1 : 86 bpm Height: 6'2" Weight: 238 lbs 02/28/2014 Blood Pressure 1: 152/86 Code : 8480-6 BMI: 29.5 Code : 39425-0 Heart Rate 1 : 64 bpm Height: 6'2" Weight: 230 lbs 01/23/2014 Blood Pressure 1: 142/68 Code : 8480-6 BMI: 29.7 Code : 89982-1 Heart Rate 1 : 80 bpm Height: 6'2" Weight: 231 lbs 12/26/2013 Blood Pressure 1: 150/72 Code : 8480-6 BMI: 29.3 Code : 07614-7 Heart Rate 1 : 60 bpm Height: 6'2" Respiratory Rate: 16 bpm Weight: 228 lbs 8 oz 10/24/2013 Blood Pressure 1: 140/84 Code : 8480-6 Heart Rate 1: 60 bpm 10/17/2013 Blood Pressure 1: 166/72 Code : 8480-6 BMI: 28.8 Code : 05770-6 Heart Rate 1 : 68 bpm Height: 6'2" Weight: 224 lbs 07/24/2013 Blood Pressure 1: 112/64 Code : 8480-6 BMI: 29.1 Code : 03197-9 Heart Rate 1 : 80 bpm Height: 6'2" Weight: 227 lbs 04/24/2013 Blood Pressure 1: 130/74 Code : 8480-6 BMI: 28.9 Code : 44728-5 Heart Rate 1 : 76 bpm Height: 6'2" Weight: 225 lbs 6 oz 03/20/2013 Blood Pressure 1: 150/70 Code : 8480-6 BMI: 29.7 Code : 18254-3 Heart Rate 1 : 76 bpm Height: 6'2" Temperature: 37.0 (C) / 98.6 (F) Weight: 231 lbs 01/19/2013 Blood Pressure 1: 150/78 Code : 8480-6 BMI: 30.2 Code : 89053-5 Heart Rate 1 : 84 bpm Height: 6'2" Weight: 235 lbs 12/26/2012 Blood Pressure 1: 142/78 Code : 8480-6 BMI: 29.9 Code : 22977-8 Heart Rate 1 : 84 bpm Height: 6'2" Weight: 233 lbs 12/21/2012 Blood Pressure 1: 142/80 Code : 8480-6 BMI: 29.5 Code : 28754-8 Heart Rate 1 : 80 bpm Height: 6'2" Weight: 230 lbs 11/30/2012 Blood Pressure 1: 146/78 Code : 8480-6 BMI: 29.4 Code : 02866-7 Heart Rate 1 : 80 bpm Height: 6'2" Weight: 229 lbs 05/30/2012 Blood Pressure 1: 150/74 Code : 8480-6 BMI: 29.4 Code : 45173-0 Heart Rate 1 : 76 bpm Height: 6'2" Respiratory Rate: 16 bpm Weight: 229 lbs 04/26/2012 Blood Pressure 1: 124/64 Code : 8480-6 Heart Rate 1: 90 bpm SpO2: 98% Temperature: 36.7 (C) / 98.1 (F) Weight: 04/14/2012 Blood Pressure 1: 150/88 Code : 8480-6 Blood Pressure 2: 150/90 Code: 8480-6 BMI: 29.4 Code: 65891-5 Heart Rate 1: 72 bpm Height: 6'2" [...] Code : 8480-6 BMI: 28.9 Code : 58464-2 Heart Rate 1 : 64 bpm Height: 6'2" Weight: 225 lbs 08/05/2011 Blood Pressure 1: 142/72 Code : 8480-6 BMI: 29.3 Code : 49099-5 Heart Rate 1 : 80 bpm Height: 6'2" Weight: 228 lbs 07/01/2011 Blood Pressure 1: 136/70 Code : 8480-6 BMI: 29.2 Code : 11431-5 Heart Rate 1 : 68 bpm Height: [...] cough Alleviating Factors OTC medications 07/30/2016 jazmín yarelitzer plus cough Pertinent Findings hoarseness 07/30/2016 None [...] doing physical therapy for parkinson's disease at [facility] diabetes mellitus Alleviating Factors insulin 01/19/2013 [...] data Encounters Encounter Performer Location Codes Date ([id number]) 09785 EST. PATIENT, LEVEL IV Diagnosis: Parkinson's disease[ICD10: G20] Diagnosis: Atrophy of thyroid (acquired)[ICD10: E03.4] Diagnosis: Slow transit constipation[ICD10: K59.01] Diagnosis: Type 2 diabetes mellitus with hyperglycemia[ICD10: E11.65] Diagnosis: Essential (primary) hypertension[ICD10: I10] Yoli Medley MD, [facility] CPT-4: 10015 05/04/[id number]) 58762 EST. 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 PATIENT, LEVEL IV Diagnosis: Atrophy of thyroid (acquired)[ICD10: E03.4] Diagnosis: Type 2 diabetes mellitus with hyperglycemia[ICD10: E11.65] Diagnosis: Essential (primary) hypertension[ICD10: I10] Diagnosis: Parkinson's disease[ICD10: G20] Yoli Medley MD, [facility] CPT- 4: 65949 09/16/2017 [id number]) 93294 EST. PATIENT, LEVEL IV Diagnosis: Essential (primary) hypertension[ICD10: I10] Diagnosis: Type 2 diabetes mellitus with hyperglycemia[ICD10: E11.65] Diagnosis: Atrophy of thyroid (acquired)[ICD10: E03.4] Yoli Medley MD, [facility] CPT-4: 23724 07/13/2017 ([id number]) 00494 EST. PATIENT, LEVEL IV Diagnosis: Essential (primary) hypertension[ICD10: I10] Diagnosis: Localized edema[ICD10: R60.0] Diagnosis: Atrophy of thyroid (acquired)[ICD10: E03.4] Diagnosis: Type 2 diabetes mellitus without complications[ICD10: E11.9] Yoli Medley MD, [facility] CPT-4: 99514 05/13/2017 62815 EST. PATIENT, LEVEL III Diagnosis: Rash and other nonspecific skin eruption[ICD10: R21] Bonita Medley MD, [facility] CPT-4: 68048 04/28/2017 42539 EST. PATIENT, LEVEL IV Diagnosis: Essential (primary) hypertension[ICD10: I10] Diagnosis: Atrophy of thyroid (acquired)[ICD10: E03.4] Diagnosis: Type 2 diabetes mellitus without complications[ICD10: E11.9] Bonita Medley MD , [facility] CPT-4: 75266 04/15/2017 ([id number]) 34420 EST. PATIENT, LEVEL IV Diagnosis: Type 2 diabetes mellitus with hyperglycemia[ICD10: E11.65] Diagnosis: Essential (primary) hypertension[ICD10: I10] Diagnosis: Hypothyroidism, unspecified[ICD10: E03.9] Ginny Medley MD, [facility] CPT-4: 69329 02/04/2017 ([id number]) 38034 EST. PATIENT, LEVEL III Diagnosis: Essential (primary) hypertension[ICD10: I10] Diagnosis: Hypothyroidism, unspecified[ICD10: E03.9] Ginny Medley MD, [facility] CPT-4: 32973 10/08/2016 ([id number]) 69511 EST. PATIENT, LEVEL III Diagnosis: Allergic rhinitis due to pollen[ICD10: J30.1] Diagnosis: Hypothyroidism, unspecified[ICD10: E03.9] Ginny Medley MD, [facility] CPT-4: 28123 09/10/2016 ([id number]) 06955 EST. 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 PATIENT, LEVEL IV Diagnosis: Abdominal distension (gaseous)[ICD10: R14.0] Diagnosis: Cough[ICD10: R05] Diagnosis: Acute bronchitis, unspecified[ICD10: J20.9] Diagnosis: Essential (primary) hypertension[ICD10: I10] Ginny Medley MD, [facility] CPT-4: 00723 08/06/2016 ([id number]) 17549 EST. PATIENT, LEVEL III Diagnosis: Cough[ICD10: R05] Diagnosis: Acute upper respiratory infection, unspecified[ICD10: J06.9] Ginny Medley MD, [facility] CPT-4: 94672 07/30/2016 ([id number]) 93273 EST. PATIENT, LEVEL IV Diagnosis: Type 2 diabetes mellitus with hyperglycemia[ICD10: E11.65] Diagnosis: Essential (primary) hypertension[ICD10: I10] Diagnosis: Parkinson's disease[ICD10: G20] Diagnosis: Localized edema[ICD10: R60.0] Ginny Medley MD, [facility] CPT-4: 15018 06/22/2016 ([id number]) 59962 EST. PATIENT, LEVEL IV Diagnosis: Essential (primary) hypertension[ICD10: I10] Diagnosis: Type 2 diabetes mellitus with hyperglycemia[ICD10: E11.65] Diagnosis: Hypo-osmolality and hyponatremia[ICD10: E87.1] Diagnosis: Hesitancy of micturition[ICD10: R39.11] Ginny Medley MD, [facility] CPT-4: 85304 04/27/2016 ([id number]) 49615 EST. PATIENT, LEVEL III Diagnosis: Essential (primary) hypertension[ICD10: I10] Diagnosis: Localized edema[ICD10: R60.0] Ginny Medley MD, [facility] CPT-4: 90233 03/23/2016 ([id number]) 54059 EST. PATIENT, LEVEL IV Diagnosis: Low back pain[ICD10: M54.5] Diagnosis: Hypo-osmolality and hyponatremia[ICD10: E87.1] Diagnosis: Essential (primary) hypertension[ICD10: I10] Diagnosis: Localized edema[ICD10: R60.0] Diagnosis: Type 2 diabetes mellitus with hyperglycemia[ICD10: E11.65] Ginny Medley MD, [facility] CPT-4: 08566 01/20/2016 ([id number]) 79627 EST. PATIENT, LEVEL III Diagnosis: Type 2 diabetes mellitus with hyperglycemia[ICD10: E11.65] Diagnosis: Essential (primary) hypertension[ICD10: I10] Diagnosis: Hypo-osmolality and hyponatremia[ICD10: E87.1] Ginny Medley MD, [facility] CPT-4: 93904 12/16/2015 ([id number]) 60185 EST. PATIENT, LEVEL III Diagnosis: Essential (primary) hypertension[ICD10: I10] Diagnosis: Hypo-osmolality and hyponatremia[ICD10: E87.1] Ginny Medley MD, [facility] CPT-4: 67228 12/09/2015 ([id number]) 27121 EST. PATIENT, LEVEL IV Diagnosis: Essential (primary) hypertension[ICD10: I10] Diagnosis: Type 2 diabetes mellitus with hyperglycemia[ICD10: E11.65] Diagnosis: Parkinson's disease[ICD10: G20] Ginny Medley MD, [facility] CPT-4: 23274 11/25/2015 98858 EST. PATIENT, LEVEL III Diagnosis: Localized edema[ICD10: R60.0] Diagnosis: Essential (primary) hypertension[ICD10: I10] Bonita Medley MD, [facility] CPT-4: 68825 09/02/2015 ([id number]) 25096 EST. PATIENT, LEVEL III Diagnosis: Localized edema[ICD10: R60.0] Ginny Medley MD, [facility] CPT-4: 95070 08/05/2015 ([id number]) 46711 EST. PATIENT, LEVEL III Diagnosis: Localized edema[ICD10: R60.0] Diagnosis: Unspecified open wound, right ankle, initial encounter[ICD10: S91.001A] Ginny Medley MD, [facility] CPT-4: 35458 ([id number]) 70193 EST. PATIENT, LEVEL IV Diagnosis: Essential (primary) hypertension[ICD10: I10] Diagnosis: Localized edema[ICD10: R60.0] Diagnosis: Low back pain[ICD10: M54.5] Diagnosis: Type 2 diabetes mellitus with hyperglycemia[ICD10: E11.65] Ginny Medley MD, [facility] CPT-4: 81402 06/03/2015 ([id number]) Miscellaneous no charge Diagnosis: Encounter for other specified aftercare[ICD10: Z51.89] Yoli Medley MD, [facility] CPT-4: 51077 03/20/2015 32122 EST. PATIENT, LEVEL IV Diagnosis: Cutaneous abscess of chest wall[ICD10: L02.213] Yoli Medley MD, [facility] CPT-4: 77403 03/19/2015 ([id number]) 01787 EST. PATIENT, LEVEL III Diagnosis: Edema, unspecified[ICD10: R60.9] Yoli Medley MD, [facility] CPT-4: 90917 03/04/2015 59419 EST. PATIENT, LEVEL III Diagnosis: Edema, unspecified[ICD10: R60.9] Diagnosis: Unspecified open wound, right ankle, initial encounter[ICD10: S91.001A] Yoli Medley MD, [facility] CPT-4: 37384 07/2014 ([id number]) 25232 EST. PATIENT, LEVEL III Diagnosis: Edema, unspecified[ICD10: R60.9] Yoli Medley MD, [facility] CPT-4: 02518 02/11/2015 ([id number]) 71358 EST. PATIENT, LEVEL IV Diagnosis: Type 2 diabetes mellitus with hyperglycemia[ICD10: E11.65] Diagnosis: Essential (primary) hypertension[ICD10: I10] Diagnosis: Edema, unspecified[ICD10: R60.9] Yoli Medley MD, [facility] CPT-4: 74995 01/28/2015 ([id number]) 98427 EST. PATIENT, LEVEL IV Diagnosis: DIABETES TYPE II[ICD9: 250.00] Diagnosis: ESSENTIAL HYPERTENSION[ICD9: 401.9] Diagnosis: Parkinsons disease[ICD9: 332.0] Yoli Medley MD [facility] CPT- 4: 68496 10/01/2014 ([id number]) 21063 EST. PATIENT, LEVEL IV Diagnosis: ESSENTIAL HYPERTENSION[ICD9: 401.9] Diagnosis: DIABETES TYPE II[ICD9: 250.00] Diagnosis: Parkinsons disease[ICD9: 332.0] Yoli Medley MD [facility] CPT- 4: 75160 05/30/2014 ([id number]) 95094 EST. PATIENT, LEVEL IV Diagnosis: DIABETES TYPE II[ICD9: 250.00] Diagnosis: ESSENTIAL HYPERTENSION[ICD9: 401.9] Diagnosis: Back pain[ICD9: 724.5] Yoli Medley MD [facility] CPT-4: 82629 02/28/2014 ([id number]) 48982 EST. PATIENT, LEVEL III Diagnosis: ESOPHAGEAL REFLUX[ICD9: 530.81] Diagnosis: Esophageal ulcer[ICD9: 530.20] Yoli Medley MD [facility] CPT- 4: 97235 01/23/2014 ([id number]) 33798 EST. PATIENT, LEVEL IV Diagnosis: ESOPHAGEAL REFLUX[ICD9: 530.81] Diagnosis: ESSENTIAL HYPERTENSION[ICD9: 401.9] Yoli Medley MD [facility] CPT-4: 82501 12/26/2013 ([id number]) 11457 EST. PATIENT, LEVEL IV Diagnosis: Diabetes type 2, uncontrolled[ICD9: 250.02] Diagnosis: ESSENTIAL HYPERTENSION[ICD9: 401.9] Diagnosis: Back pain[ICD9: 724.5] Diagnosis: ELEVATED PSA[ICD9: 790.93] Yoli Medley MD [facility] CPT- 4: 81383 10/17/2013 ([id number]) 73050 EST. PATIENT, LEVEL IV Diagnosis: DIABETES TYPE II[SNOMED: 596132647] Diagnosis: ESSENTIAL HYPERTENSION[SNOMED: 93572559] Diagnosis: Sleep apnea[ICD9: 780.57] Yoli Medley MD [facility] CPT-4: 00566 07/24/2013 ([id number]) 78327 EST. PATIENT, LEVEL IV Diagnosis: DIABETES TYPE II[SNOMED: 421685754] Diagnosis: ESSENTIAL HYPERTENSION[SNOMED: 42293141] Diagnosis: HYPERLIPIDEMIA[ICD9: 272.4] Yoli Medley MD [facility] CPT- 4: 56745 04/24/2013 ([id number]) 38670 EST. PATIENT, LEVEL III Diagnosis: DIABETES TYPE II[SNOMED: 952582024] Yoli Medley MD [facility] CPT-4: 41160 03/20/2013 ([id number]) 66139 EST. PATIENT, LEVEL III Diagnosis: DM W/O COMPLICATION TYPE II, UNCONTROLLED[SNOMED: 91138841] Yoli Medley MD [facility] CPT-4: 92128 01/19/2013 ([id number]) 97193 EST. PATIENT, LEVEL III Diagnosis: DM W/O COMPLICATION TYPE II, UNCONTROLLED[SNOMED: 61052812] Yoli Medley MD [facility] CPT-4: 16906 12/21/2012 ([id number]) 82206 EST. PATIENT, LEVEL IV Diagnosis: DM W/O COMPLICATION TYPE II, UNCONTROLLED[SNOMED: 26774865] Diagnosis: Parkinsons disease[ICD9: 332.0] Diagnosis: Back pain[ICD9: 724.5] Diagnosis: Gait instability[ICD9: 781.2] Yoli Medley MD [facility] CPT- 4: 23878 11/30/2012 ([id number]) 93702 EST. PATIENT, LEVEL IV Diagnosis: ESSENTIAL HYPERTENSION[SNOMED: 51581071] Diagnosis: Abdominal pain[ICD9: 789.00] Diagnosis: DIABETES TYPE II[SNOMED: 016532886] Yoli Medley MD, [facility] CPT-4: 04063 05/30/2012 ([id number]) 38357 EST. PATIENT, LEVEL III Diagnosis: Gastroenteritis[ICD9: 558.9] Ginny Meldey MD [facility] CPT-4: 28124 04/26/2012 ([id number]) 28284 EST. PATIENT, LEVEL IV Diagnosis: ESSENTIAL HYPERTENSION[SNOMED: 41020885] Diagnosis: DIABETES TYPE II[SNOMED: 531280358] Diagnosis: Claw toe[ICD9: 735.5] Yoli Medley MD, [facility] CPT-4: 98879 04/14/2012 [id number]) 11971 EST. PATIENT, LEVEL III Diagnosis: Rash[ICD9: 782.1] Diagnosis: DERMATOPHYTOSIS OF FOOT[ICD9: 110.4] Ginny Medley MD, [facility] CPT-4: 08374 02/22/2012 [id number]) 07668 EST. PATIENT, LEVEL IV Diagnosis: DM W/O COMPLICATION TYPE II, UNCONTROLLED[SNOMED: 82430730] Diagnosis: ESSENTIAL HYPERTENSION[SNOMED: 45476195] Diagnosis: Constipation - functional[ICD9: 564.09] Diagnosis: Encounter for long-term (current) use of other high-risk medications[ ICD9: V58.69] Yoli Medley MD [facility] CPT-4: 92163 01/13/2012 [id number]) 63545 EST. PATIENT, LEVEL IV Diagnosis: ESSENTIAL HYPERTENSION[SNOMED: 01907912] Diagnosis: DIABETES TYPE II[SNOMED: 578855503] Yoli Medley MD, [facility] CPT-4: 29559 09/02/2011 63604 EST. PATIENT, LEVEL IV Diagnosis: LUMBAGO[ICD9: 724.2] Diagnosis: Sacroiliitis[ICD9: 720.2] Yoli Medley MD, [facility] CPT-4: 71273 08/05/2011 [id number]) 39722 EST. PATIENT, LEVEL IV Diagnosis: ESSENTIAL HYPERTENSION[SNOMED: 41217798] Diagnosis: DIABETES TYPE II[SNOMED: 703718151] Diagnosis: Breast mass in male[ICD9: 611.72] Diagnosis: Chronic hyponatremia[ICD9: 276.1] Yoli Medley MD, [facility] CPT-4: 06979 07/01/2011 Plan of Care Planned Activity Notes [...] persistent constipation. 05/04/2018 Appointment: Yoli Medley WPtel: [address] [place], [place] [id number] (15 min) Moderate 05/04/2018 Patient Education: Patient [...] shot today 01/11/2018 Appointment: [facility] [phone] [phone] ([facility] min) Moderate 01/11/2018 Patient Education: Patient Medication Summary Completed 01/11/2018 Appointment: Bon[facility]el[facility] [phone] [facility] - Annual Wellness Visit 10/18/2017 Visit Plan: [...] treatment. 09/16/2017 Appointment: Yoli Medley [facility]el[facility] [phone] [facility] [place] (15 min) Moderate 09/16/2017 Patient Education: Patient [...] control. 07/13/2017 Appointment: Yoli Medley [facility]el[facility] [phone] [facility] [place] (15 min) Moderate 07/13/2017 Patient Education: Patient [...] less controlled. 05/13/2017 Appointment: Yoli Medley [facility]el[facility] [phone] [phone] (15 min) Moderate 05/13/2017 Patient Education: Patient Medication Summary Completed 05/13/2017 Visit Plan: Rash - The patient was instructed to use the ointment as per RX. The patient is to call for any change in symptoms, increase in size of the lesion, increase in pain, worsening redness, warmth, discharge. 04/28/2017 Appointment: Bonita Villa WPtel: [phone] [facility] [place] (15 min) Moderate 04/28/2017 Patient Education: Patient Medication Summary Completed 04/28/2017 Appointment: Bonita Villa WPtel: [phone] [facility] (30 min) Complex 04/16/2017 Visit Plan: Hypertension [...] of control. 04/15/2017 Appointment[phone] [facility] [place] ([place] min) Complex 04/15/2017 Patient Education: [...] control. 02/04/2017 Appointment: Ginny Pearl WPtel: [phone] [phone] (30 min) Complex 02/04/2017 Patient Education: Patient Medication Summary Completed 02/04/2017 Patient Education: Obesity Completed 02/04/2017 Patient Education: Patient Medication Summary Completed 02/01/2017 Appointment[phone] ([place] min) Complex 01/12/2017 Appointment[phone] [phone] ([place] min) Complex 01/07/2017 Visit Plan: Medicare [...] care surrogate. 10/12/2016 Appointment: Bonita Villa WPtel: [facility] - Annual Wellness Visit 10/12/2016 Patient Education: [...] 3 months. 10/08/2016 Appointment: Ginny Pearl WPtel: [phone] (30 min) Complex 10/08/2016 Patient Education: Patient Medication Summary Completed 10/08/2016 Patient Education: Hypertension Completed 10/08/2016 Visit Plan: Allergies-continue daily anti histamine-call if symptoms do not improve or if any worse S/P total thyroidectomy-now on levothyroxine-repeat labs in 1 month 09/10/2016 Appointment: Ginny Pearl WPtel: [phone] (30 min) Complex 09/10/2016 Patient [...] Ford to do total thyroidectomy on Wednesday Qvccbgrgcf-nulby-mingcu-due to thyroid nodules-will monitor symptoms for now 08/24/2016 Visit Plan: Hypertension - continue with current medications, continue with no added salt diet. Pt has been encouraged to exercise daily. The pt has been advised to call the office if there are any acute concerns about change in blood pressure readings at home. Bilateral thyroid nodules-voice hoarseness-Dr Ford to do total thyroidectomy on Wednesday Jzdbmvanre-vxish-mogqiz-due to thyroid nodules-will monitor symptoms for now [...] and plan. 08/24/2016 Appointment: Ginny Pearl WPtel: [phone] (30 min) Complex 08/24/2016 Patient Education: Patient Medication Summary Completed 08/24/2016 Visit Plan: Abdominal pmtteegz-gxudfzvgtiwl-UAO today Bronchitis - acute case of bronchitis [...] at home 08/06/2016 Appointment: Ginny Pearl WPtel: [phone] (10 min) Simple 08/06/2016 Patient Education: Patient Medication Summary Completed 08/06/2016 Visit Plan: URI - Pt advised to increase fluids, vitamin C. Discussed natural and expected course of this diagnosis and need to alert me if symptoms do not follow expected course, or if any worse. RX sent to patient' s pharmacy. 07/30/2016 Appointment: Ginny Pearl WPtel: [phone] [facility] [place] [address] (15 min) Moderate 07/30/2016 Patient Education: Patient [...] worsen. 06/22/2016 Appointment[phone] ([facility]) Complex 06/22/2016 Patient Education: Patient [...] 04/27/2016 Appointment: Ginny Pearl WPtel: [phone] [phone] (30 min) Complex 04/27/2016 Patient [...] edema. 03/23/2016 Appointment: [phone] (30 min) Complex 03/23/2016 Patient Education: Patient [...] in the office. Refer for PT at [facility] Low back pain, generalized weakness, Parkinsons Low giwqdg-wcdxgnr-dh need for increase sodium intake Hypertension - [...] 01/20/2016 Appointment: [phone] (30 min) Complex 01/20/2016 Patient Education: Patient Medication Summary Completed 01/20/2016 Patient Education: Obesity Completed 01/20/2016 Care Plan: Comp Metabolic Pending 01/20/2016 Care Plan: Cbc With Differential Pending 01/20/2016 Care Plan: %Hba1C LOINC : 31933-2 Pending 01/20/2016 Visit Plan: Diabetes Mellitus - [...] today 12/09/2015 Appointment: [phone] (30 min) Complex 12/09/2015 Patient Education: Patient [...] symptoms worsen. 11/25/2015 Appointment: Ginny Pearl WPtel: [address] [place] [phone] (30 min) Complex 11/25/2015 Patient Education: Patient [...] 03/26/2015 Care Plan: Referral Order SNOMED-CT : [id number] Ordered 03/26/2015 Patient Education: Patient Medication Summary [...] 02/20/2015 Care Plan: Referral Order SNOMED-CT : [id number] Ordered 02/20/2015 Visit Plan: Hypertension - uncontrolled [...] SPIRONOLACTONE 02/11/2015 Appointment: Yoli Med[facility]el[phone] (15 min) Moderate 02/11/2015 Patient Education: Patient [...] blood pressure. 01/28/2015 Appointment: Yoli Medley WPtel: [phone] (15 min) Moderate 01/28/2015 Patient Education: Patient [...] worsen. 05/30/2014 Appointment: Yoli Medley WPtel: [phone] Follow up 05/30/2014 Patient Education: Patient Medication [...] January 29. 01/23/2014 Appointment: Yoli Medley WPtel: [facility] Follow up 01/23/2014 Patient Education: [...] at home. 12/26/2013 Appointment: Yoli Medley WPtel: [facility] Follow up 12/26/2013 Patient Education: Patient Medication Summary Completed 12/26/2013 Patient Education: Hypertension Completed 12/26/2013 Visit Plan: Wound Instructions - Pt was instruced to keep the wound clean, wash with antibacterial soap, use triple antibiotic ointment, call if redness, pustular drainage, or any other acute conerns. 10/24/2013 Appointment: Ginny Pearl [facility]Ptel[phone] Surgical Procedure 10/24/2013 Patient Education: Patient Medication [...] lesions. 10/17/2013 Appointment: Yoli Medley WPtel: [phone] Follow up 10/17/2013 Patient Education: Patient Medication [...] like to have his Oxygen company - [employer] patient - help with arranging oxygen when he is in [place]. 07/24/2013 Appointment: Yoli Medley WPtel: [phone] Follow up 07/24/2013 Patient Education: Patient Medication Summary Completed 07/24/2013 Patient Education: Hypertension Completed 07/24/2013 Appointment: Pearl [facility]inny [facility]el[phone] Lab Draw 05/05/2013 Patient Education: Patient Medication Summary Completed 05/05/2013 Patient Education: Hypertension Completed 05/05/2013 Appointment: Yoli Medley WPtel: [phone] Follow up 05/01/2013 Visit Plan: Diabetes Mellitus [...] LANTUS TO 16 UNITS DAILY. 01/19/2013 Appointment: Yloi Medley WPtel: [phone] Follow up 01/19/2013 Patient Education: Patient Medication Summary Completed 01/19/2013 Visit Plan: TD-sovdbxol-juecucjeyiz today in the office- wound Instructions - Pt was instruced to keep the wound clean, wash with antibacterial soap, use triple antibiotic ointment, call if redness, pustular drainage, or any other acute conerns. 12/26/2012 Appointment: [facility]el[phone] Other 12/26/2012 Patient Education: Patient Medication Summary [...] glucose. 12/21/2012 Appointment: Yoli Medley WPtel: [phone] Follow up 12/21/2012 Patient Education: Patient Medication Summary Completed 12/21/2012 Visit Plan: Parkinsons disease - rx for sinemet 25/100mg 1/ 2 pill in morning and 1/2 pill in evening, pt to let us know if the symptoms improve. Referral to Mgiuel at [facility] for gait instability. Diabetes Mellitus - [...] patient. 11/30/2012 Appointment: Yoli Medley WPtel: [phone] [facility] Follow up 11/30/2012 Patient Education: Patient Medication [...] previously. 05/30/2012 Appointment: Yoli Medley WPtel: [phone] 6 wk f/u Follow up 05/30/2012 Patient [...] to seek support for his arches via chocolate coater eval and perhaps arch supports to be custom made or custom fitted. 04/14/2012 Appointment: Yoli Medley WPtel: [phone] [facility] Follow up 04/14/2012 Patient Education: Patient Medication Summary Completed 04/14/2012 Patient Education: Hypertension Completed 04/14/2012 Visit Plan: Rash- Discussed natural and expected course of this diagnosis and need to alert me if symtpoms do not follow expected course, or if any worse. RX sent to patient's pharmacy. 02/22/2012 Appointment: [facility] Pearl [facility]Ptel[phone] Other 02/22/2012 Patient Education: Patient Medication Summary [...] this regimen. 01/13/2012 Appointment: Yoli Medley WPtel: [facility] [address] Patient Preventative visit 01/13/2012 Patient Education: Patient [...] controlled. 09/02/2011 Appointment: Yoli Medley WPtel: [phone] [facility] [place] [address] 09/02/2011 Patient Education: Patient Medication Summary Completed 09/02/2011 Patient Education: High Blood Pressure: Essential Hypertension Completed 2011 Appointment: Ginny Pearl WPtel: [phone] [phone] Lab Draw 08/06/2011 Patient Education: Patient Medication [...] is back to metformin bid. 08/05/2011 Appointment: Yoil Medley WPtel: [phone] [facility] [facility] 08/05/2011 Patient Education: Patient Medication Summary Completed [...] home. 07/01/2011 Appointment: Yoli Medley WPtel: [phone] [facility] Other 07/01/2011 Patient Education: Patient Medication Summary Completed 07/01/2011 Patient Education: High Blood Pressure: Essential Hypertension Completed 2011 Appointment: Yoli Medley WPtel: [phone] [facility] Lab Draw 06/25/2011 Patient Education: Patient Medication Summary Completed 06/25/2011 Patient Education: High Blood Pressure: Essential Hypertension Completed 2011 [facility] Referral Initiated Referral: Dangelo Ford Referral Initiated Instructions Comment . Hypertension - continue with current medications, continue with no added salt diet. Pt has been encouraged to exercise daily. The pt has been advised to call the office if there are any acute concerns about change in blood pressure readings at home. Bilateral thyroid nodules-voice hoarseness-Dr Ford to do total thyroidectomy on Wednesday Bhcxlaxywu-hldzn-lhqgus-due to thyroid nodules-will monitor symptoms for now [...] in blood pressure readings at home. . Diabetes Mellitus - controlled - per [...] to become less controlled. . Hypertension - continue with current medications, continue with no added salt diet. Pt has been encouraged to exercise daily. The pt has been advised to call the office if there are any acute concerns about change in blood pressure readings at home. Bilateral thyroid nodules-voice hoarseness-Dr Ford to do total thyroidectomy on Wednesday Cyfzpetelp-mzyjy-jqqmvx-due to thyroid nodules-will monitor symptoms for now [...] physical exam, and the assessment and plan. check labs recommend shingles vaccine . Medicare [...] recommend shingles vaccine . . Hypertension - well controlled - continue with current medications, continue with no added salt diet. Pt has been encouraged to exercise daily. The pt has been advised to call the office if there are any acute concerns about change in blood pressure readings at home. Xqasxjugeeqstp-wgvxoykv-gzybycr medication increased by Dr Ford and wants [...] pain. Probiotic twice daily. . Hypertension - well controlled - continue [...] levels of control. . Diabetes Mellitus - Uncontrolled - per [...] symptoms not improved on this regimen. . Wound Instructions - Pt was instruced to keep the wound clean, wash with antibacterial soap, use triple antibiotic ointment, call if redness, pustular drainage, or any other acute conerns. INCREASE LANTUS TO 16 UNITS DAILY. Declined [...] bid if needed for persistent constipation. . Low back pain- the patient was [...] to metformin bid. . Diabetes Mellitus - Uncontrolled - per [...] has ability to increase blood glucose. . Abscess/Cellulitis- left anterior chest -incision and [...] Lab work- CBC, CMP, BNP . Abdominal zaldymox-bpiswhwyusqp-EIX today Bronchitis - acute case of bronchitis [...] any worse. RX sent to patient's pharmacy. INCREASE LANTUS TO 16 UNITS DAILY.. Diabetes [...] INCREASE LANTUS TO 16 UNITS DAILY. . Hypertension - well controlled - continue [...] had been previously. . Diabetes Mellitus - controlled - per [...] folate. Pt declined flu shot today . Diabetes Mellitus - I have recommended [...] readings at home. Low sodium-recheck labs today CALL IF YOUR BACK PAIN DOES NOT [...] in the office. Refer for PT at [facility]- Low back pain, generalized weakness, Parkinsons Low eknroa-pnrzxex-ms need for increase sodium intake Hypertension - [...] to reduce peripheral edema. DM-check Hgb A1C PATIENT IS TO CHECK BLOOD PRESSURE AND [...] alert this office if symptoms worsen. . HTN-not optimally controlled-recommend patient start on [...] wraps to lower legs Appointment with [facility]- July 29 at 1pm. . [...] like to have his Oxygen company - [employer] patient - help with arranging oxygen when he is in [facility]. . Parkinsons disease - rx for sinemet 25/100mg 1/2 pill in morning and 1/2 pill in evening, pt to let us know if the symptoms improve. Referral to Miguel at [facility] for gait instability. Diabetes Mellitus - [...] it offers support for the patient. . Diabetes Mellitus - controlled - per [...] based on previous levels of control. . MP-zynnruab-ixwuqxmajsw today in the office-wound Instructions - Pt [...] to seek support for his arches via chocolate coater eval and perhaps arch supports to be [...]
--- OUTSIDE RECORDS SUMMARY | 2018-07-25 08:10 | XMS REPORT | CCD ---
Author Author [facility] Organization [facility] Address [address] [place] [address] Phone Care Team Providers [employer] Director Name Role Phone PP Unavailable CCM Unavailable Summary Purpose Interface Exchange Insurance Providers Payer name Policy type / Coverage type Covered democrat ID Effective Begin Date Effective End Date WPS Medicare Part B Medicare Part B [id number] 2018 Unknown [facility] [employer] INSUR Medicare Part B [id number] Unknown [place] [employer] Medicare Part B [id number] 2018 Unknown Family history Runs in the family Diagnosis Age At Onset Diabetes Unknown Mother Diagnosis Age At Onset Diabetes Unknown Hypertension Unknown Alzheimer's Disease Unknown Stroke Unknown Father Diagnosis Age At Onset No Family Disease Entered N/A Grandmother Diagnosis Age At Onset Alzheimer's Disease Unknown Social History Social History Element Codes Description Effective Dates Number of children Unknown 4 2 in [place], 2 in [place] 02/17/[address]: 3904739 Former smoker Quit in 195202/17/2018 Alcohol history Unknown occasionally drinks alcohol 02/17/2018 Frequency of drinks SNOMED CT: 528661769 Drinks rarely 02/17/2018 Employment Unknown 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 Unknown Has never used illegal drugs 07/02/2011 Marital status Unknown 07/01/2011 Living arrangements Unknown House 07/01/2011 Allergies, Adverse Reactions, Alerts Substance Reaction Codes Entered Date Inactivated Date Status feldene rash RxNorm: 8356 02/17/2018 No Inactive Date Active levaquin Unknown 02/17/2018 No Inactive Date Active bactrim rash RxNorm: 522274 02/17/2018 No Inactive Date Active CEPHALOSPORINS Unknown [...] Fill Instructions glipizide 10 mg tablet RxNorm: 758328 1 Tablet(s) PO BID 201805/25/2019 Active Senna-S 8.6 mg-50 mg tablet RxNorm: 400395 1 Tablet(s) PO daily and may dose up to twice a day if needed for constipation 05/04/2018 01/28/2019 Active Contour Next Test Strips RxNorm: 1 test Miscellaneous daily 07/27/2019 Active metformin ER 500 mg tablet,extended release 24 hr RxNorm: 285036 Tablet(s) TAKE ONE TABLET BY MOUTH TWICE DAILY 05/02/2018 04/26/2019 Active levothyroxine 175 mcg tablet RxNorm: 572739 Tablet(s) TAKE 1 TABLET BY MOUTH ONCE DAILY WED-WED, 1/2 TAB ON WEDNESDAY AND Wednesday03/02/2018 No Stop Date Active potassium chloride ER 10 mEq tablet,extended release(part/ cryst) RxNorm: 1855522 2 Tablet(s) PO daily x 3 days, then 1 pill three times a week when taking the lasix 02/01/2018 05/31/2018 Inactive finasteride 5 mg tablet RxNorm: 028163 1 Tablet(s) PO daily 07/30/2018 Active [SAVINGS FOR UNINSURED PATIENTS -- BIN:258058, PCN: ASPROD1, Group: [id number], ID# [id number], Process claim through [employer], for questions: . THIS IS NOT INSURANCE.] levothyroxine 175 mcg tablet RxNorm: 407502 TAKE 1 TABLET BY MOUTH ONCE DAILY 02/01/2018 03/01/2018 Inactive Basaglar KwikPen U-100 Insulin 100 unit/mL (3 mL) subcutaneous RxNorm: 3036053 24 Unit(s) SQ daily 12/29/201712/23 Active Lasix 20 mg tablet RxNorm: 977713 TAKE 1 TABLET ONCE DAILY FOR 1 WEEK AND THEN 1 TABLET EVERY 3 DAYS THEREAFTER 12/06/2017 09/01/2018 Active clotrimazole 1 % topical cream RxNorm: 005565 1 Application TOP BID to feet 09/16/2017 No Stop Date Active levothyroxine 175 mcg tablet RxNorm: 289846 TAKE ONE TABLET BY MOUTH ONCE DAILY 08/03/2017 01/31/2018 Inactive lisinopril 20 mg tablet RxNorm: 800810 Tablet(s) TAKE 1 TABLET BY MOUTH TWICE DAILY 05/13/2017 05/07/2018 Inactive Sinemet 25 mg-100 mg tablet RxNorm: 104117 Tablet(s) TAKE ONE TABLET BY MOUTH TWICE DAILY IN THE MORNING AND AT SUPPER 05/13/2017 05/07/2018 Inactive glipizide 10 mg tablet RxNorm: 496393 1 Tablet(s) PO BID 201705/30/2018 Inactive metformin ER 500 mg tablet,extended release 24 hr RxNorm: 261265 Tablet(s) TAKE ONE TABLET BY MOUTH TWICE DAILY 05/13/2017 05/01/2018 Inactive Basaglar KwikPen U-100 Insulin 100 unit/mL (3 mL) subcutaneous RxNorm: 3348956 24 Unit(s) SQ daily 05/13/201712/28 Inactive finasteride 5 mg tablet RxNorm: 076500 1 Tablet(s) PO daily 11/08/2017 Inactive [SAVINGS FOR UNINSURED PATIENTS -- BIN:146275, PCN: ASPROD1, Group: [id number] , ID# [id number], Process claim through [employer], for questions: . THIS IS NOT INSURANCE.] levothyroxine 175 mcg tablet RxNorm: 715440 1 Tablet(s) PO daily 05/13/2017 02/16/2018 Inactive Lasix 20 mg tablet RxNorm: 340955 Tablet(s) TAKE 1 TABLET BY MOUTH ONCE DAILY FOR 1 WEEK AND THEN TAKE 1 TABLET BY MOUTH EVERY 3 DAYS THEREAFTER 05/13/2017 07/27/2017 Inactive Basaglar KwikPen 100 unit/mL (3 mL) subcutaneous RxNorm: 8614678 24 Unit(s) SQ daily 05/07/2017 05/12/2017 Inactive Lasix 20 mg tablet RxNorm: 982333 2 Tablet(s) PO daily x 3 days, then 1 pill three times a week thereafter 04/28/2017 No Stop Date Active triamcinolone acetonide 0.025 % topical cream RxNorm: 6442249 1 Application TOP BID 04/28/2017 02/16/2018 Inactive clotrimazole 1 % topical cream RxNorm: 468030 1 Application TOP BID 04/28/2017 09/15/2017 Inactive potassium chloride ER 10 mEq tablet,extended release(part/ cryst) RxNorm: 9567231 2 Tablet(s) PO daily x 3 days, then 1 pill three times a week when taking the lasix 04/28/2017 08/25/2017 Inactive Lasix 20 mg tablet RxNorm: 279844 Tablet(s) TAKE 1 TABLET BY MOUTH ONCE DAILY FOR 1 WEEK AND THEN TAKE 1 TABLET BY MOUTH EVERY 3 DAYS THEREAFTER 04/22/2017 05/12/2017 Inactive Lantus Solostar 100 unit/mL (3 mL) subcutaneous insulin pen RxNorm: 757363 24 Unit(s) SQ daily INJECT 24 UNITS DAILY OR DIRECTED 201605/06/2017 Inactive 1 box of 5 pens Basaglar KwikPen 100 unit/mL (3 mL) subcutaneous RxNorm: 1219872 24 Unit(s) SQ daily 03/02/2017 05/06/2017 Inactive Basaglar KwikPen 100 unit/mL (3 mL) subcutaneous RxNorm: 4000823 24 Unit(s) SQ daily 03/02/2017 03/01/2017 Inactive levothyroxine 175 mcg tablet RxNorm: 728305 1 Tablet(s) PO daily 02/02/2017 05/12/2017 Inactive Sinemet 25 mg-100 mg tablet RxNorm: 823053 TAKE ONE TABLET BY MOUTH TWICE DAILY IN THE MORNING AND AT SUPPER 12/30/2016 Inactive metformin ER 500 mg tablet,extended release 24 hr RxNorm: 993962 Tablet(s) TAKE ONE TABLET BY MOUTH TWICE DAILY 11/10/2016 05/12/2017 Inactive lisinopril 20 mg tablet RxNorm: 110521 Tablet(s) TAKE 1 TABLET BY MOUTH TWICE DAILY 11/10/2016 05/12/2017 Inactive levothyroxine 150 mcg tablet RxNorm: 873741 1 Tablet(s) PO daily 11/05/2016 02/01/2017 Inactive PLEASE LET PATIENT KNOW WE ARE GIVING HIM 150MCG INSTEAD OF 100MCG SO HE JUST TAKES 1 TAB DAILY. THANKS! Lantus Solostar 100 unit/mL (3 mL) subcutaneous insulin pen RxNorm: 277070 24 Unit(s) SQ daily INJECT 24 UNITS DAILY OR DIRECTED 201603/01/2017 Inactive 1 box of 5 pens Lantus Solostar 100 unit/mL (3 mL) subcutaneous insulin pen RxNorm: 530838 24 Unit(s) SQ daily INJECT 24 UNITS DAILY OR DIRECTED 201610/06/2016 Inactive please call patient with the [facility] levothyroxine 100 mcg tablet RxNorm: 907569 1.5 Tablet(s) PO daily 10/05/2016 11/04/2016 Inactive metformin ER 500 mg tablet,extended release 24 hr RxNorm: 454916 Tablet(s) TAKE ONE TABLET BY MOUTH TWICE DAILY 09/29/2016 11/09/2016 Inactive prednisone 20 mg tablet RxNorm: 357566 1 Tablet(s) PO BID 08/0608/10/2016 Inactive Kenalog 40 mg/mL suspension for injection RxNorm: 8147891 1 Milliliter(s) Inj 07/30/2016 07/30/2016 Inactive doxycycline hyclate 100 mg tablet RxNorm: 484228 1 Tablet(s) PO BID 07/30/2016 08/05/2016 Inactive glipizide 10 mg tablet RxNorm: 963396 1 Tablet(s) PO BID 201605/12/2017 Inactive Sinemet 25 mg-100 mg tablet RxNorm: 740223 TABLET(S) TAKE 1 TABLET BY MOUTH TWICE A DAY IN THE MORNING AND AT SUPPER 05/11/2016 11/06/2016 Inactive Patient requests 90 days supply metformin ER 500 mg tablet,extended release 24 hr RxNorm: 771469 TAKE ONE TABLET BY MOUTH TWICE DAILY 05/04/20162016 Inactive lisinopril 20 mg tablet RxNorm: 539261 TAKE 1 TABLET BY MOUTH TWICE DAILY 04/14/2016 11/09/2016 Inactive Sinemet 25 mg-100 mg tablet RxNorm: 273857 1 Tablet(s) PO BID TAKE 1 TABLET BY MOUTH TWICE A DAY IN THE MORNING AND AT SUPPER 03/23/2016 02/16/2018 Inactive Lasix 20 mg tablet RxNorm: 182443 Tablet(s) TAKE 1 TABLET BY MOUTH ONCE DAILY FOR 1 WEEK AND THEN TAKE 1 TABLET BY MOUTH EVERY 3 DAYS THEREAFTER 03/23/2016 06/06/2016 Inactive Lantus Solostar 100 unit/mL (3 mL) subcutaneous insulin pen RxNorm: 223412 24 Unit(s) SQ daily INJECT 24 UNITS DAILY OR DIRECTED 201510/05/2016 Inactive please call patient with the [facility] hydrocodone 5 mg-acetaminophen 325 mg tablet RxNorm: 218360 1-2 Tablet(s) PO Q6- 8H 01/21/2016 02/16/2018 Inactive Kenalog 40 mg/mL suspension for injection RxNorm: 8206566 1 Milliliter(s) Inj 01/20/2016 01/20/2016 Inactive Sinemet 25 mg-100 mg tablet RxNorm: 669682 Tablet(s) TAKE 1 TABLET BY MOUTH TWICE A DAY IN THE MORNING AND AT SUPPER 11/29/2015 03/22/2016 Inactive Lantus Solostar 100 unit/mL (3 mL) subcutaneous insulin pen RxNorm: 037262 20 Unit(s) SQ daily INJECT 20 UNITS DAILY OR DIRECTED 201501/20/2016 Inactive please call patient with the [facility] Sinemet 25 mg-100 mg tablet RxNorm: 873270 Tablet(s) TAKE 1 TABLET BY MOUTH TWICE A DAY IN THE MORNING AND AT SUPPER 11/22/2015 11/28/2015 Inactive Lantus Solostar 100 unit/mL (3 mL) subcutaneous insulin pen RxNorm: 851839 Unit( s) INJECT 20 UNITS DAILY OR DIRECTED 11/22/2015 11/24/2015 Inactive Lantus Solostar 100 unit/mL (3 mL) subcutaneous insulin pen RxNorm: 856339 INJECT 20 UNITS DAILY OR DIRECTED 09/27/2015 11/21/2015 Inactive Lasix 20 mg tablet RxNorm: 085124 TAKE 1 TABLET BY MOUTH ONCE DAILY FOR 1 WEEK AND THEN TAKE 1 TABLET BY MOUTH EVERY 3 DAYS THEREAFTER 09/2512/10/2015 Inactive Lasix 20 mg tablet RxNorm: 613990 1 Tablet(s) PO daily 201509/25/2015 Inactive glipizide 10 mg tablet RxNorm: 248289 1 Tablet(s) BID TAKE 1 TABLET BY MOUTH DAILY. 06/25/2015 06/28/2016 Inactive metformin ER 500 mg tablet,extended release 24 hr RxNorm: 677006 1 Tablet(s) PO BID 04/01/2015 05/05/2016 Inactive lisinopril 20 mg tablet RxNorm: 755231 Tablet(s) TAKE 1 TABLET BY MOUTH TWICE DAILY. 03/25/2015 07/22/2015 Inactive metformin ER 500 mg tablet,extended release 24 hr RxNorm: 732554 1 Tablet(s) PO BID 03/25/2015 03/31/2015 Inactive doxycycline hyclate 100 mg capsule RxNorm: 9022503 1 Capsule(s) PO BID 03/19/2015 04/01/2015 Inactive Sinemet 25 mg-100 mg tablet RxNorm: 547485 TAKE 1 TABLET BY MOUTH TWICE A DAY IN THE MORNING AND AT SUPPER 03/05/201511/20 Inactive doxycycline hyclate 100 mg capsule RxNorm: 5209005 1 Capsule(s) PO BID 02/20/2015 02/26/2015 Inactive metolazone 5 mg tablet RxNorm: 626694 1 Tablet(s) PO daily 07/201403/21/2015 Inactive spironolactone 50 mg tablet RxNorm: 890899 1 Tablet(s) PO daily 02/11/2015 01/02/2016 Inactive Efudex 5 % topical cream RxNorm: 010438 1 TOP BID 01/28/2015 02/10/2015 Inactive potassium chloride ER 10 mEq tablet,extended release(part/ cryst) RxNorm: 7194525 1 Tablet(s) PO daily x 1week then three times weekly with the lasix. 01/28/2015 05/27/2015 Inactive Lasix 20 mg tablet RxNorm: 193618 1 Tablet(s) PO daily x 1 week, then every three days thereafter 01/28/20152015 Inactive lisinopril 20 mg tablet RxNorm: 684989 Tablet(s) TAKE 1 TABLET BY MOUTH TWICE DAILY. 11/23/2014 03/22/2015 Inactive lisinopril 20 mg tablet RxNorm: 857184 TAKE 1 TABLET BY MOUTH TWICE DAILY. 11/22/2014 11/22/2014 Inactive Sinemet 25 mg-100 mg tablet RxNorm: 124124 1 Tablet(s) PO BID TAKE 1 TABLET BY MOUTH TWICE A DAY IN THE MORNING AND AT SUPPER 10/01/2014 03/04/2015 Inactive [ SAVINGS FOR UNINSURED PATIENTS -- BIN:[id number], PCN: ASPROD1, Group: [id number], ID# [id number], Process claim through [employer], for questions: . THIS IS NOT INSURANCE.] glipizide 10 mg tablet RxNorm: 779312 1 Tablet(s) BID TAKE 1 TABLET BY MOUTH DAILY. 10/01/2014 06/24/2015 Inactive glipizide 10 mg tablet RxNorm: 066366 Tablet(s) daily TAKE 1 TABLET BY MOUTH DAILY. 08/06/2014 09/30/2014 Inactive Lantus Solostar 100 unit/mL (3 mL) subcutaneous insulin pen RxNorm: 903565 20 Unit(s) SQ daily 07/11/2014 09/26/2015 Inactive [SAVINGS FOR UNINSURED PATIENTS -- BIN:696537, PCN: ASPROD1, Group: [id number], ID# [id number], Process claim through [employer], for questions: . THIS IS NOT INSURANCE.] metformin ER 500 mg tablet,extended release 24 hr RxNorm: 890405 1 Tablet(s) PO BID 07/10/2014 03/24/2015 Inactive lisinopril 20 mg tablet RxNorm: 891309 Tablet(s) TAKE 1 TABLET BY MOUTH TWICE DAILY. 07/10/2014 11/21/2014 Inactive Lantus Solostar 100 unit/mL (3 mL) subcutaneous insulin pen RxNorm: 137450 20 Unit(s) SQ daily 05/30/2014 07/10/2014 Inactive [SAVINGS FOR UNINSURED PATIENTS -- BIN:785677, PCN: ASPROD1, Group: [id number], ID# [id number], Process claim through [employer], for questions: . THIS IS NOT INSURANCE.] Sinemet 25 mg-100 mg tablet RxNorm: 681189 Tablet(s) TAKE 1 TABLET BY MOUTH TWICE A DAY IN THE MORNING AND AT SUPPER 05/30/2014 09/30/2014 Inactive [SAVINGS FOR UNINSURED PATIENTS -- BIN:518241, PCN: ASPROD1, Group: [id number], ID# [id number], Process claim through [employer], for questions: . THIS IS NOT INSURANCE.] lisinopril 20 mg tablet RxNorm: 060587 TAKE 1 TABLET BY MOUTH TWICE DAILY. 04/09/2014 04/08/2014 Inactive glipizide 10 mg tablet RxNorm: 557732 TAKE 1 TABLET BY MOUTH TWICE DAILY. 04/09/2014 08/05/2014 Inactive glipizide 10 mg tablet RxNorm: 048508 TAKE 1 TABLET BY MOUTH TWICE DAILY. 04/09/2014 04/08/2014 Inactive lisinopril 20 mg tablet RxNorm: 819870 TAKE 1 TABLET BY MOUTH TWICE DAILY. 04/09/2014 07/09/2014 Inactive lisinopril 20 mg tablet RxNorm: 690608 Tablet(s) TAKE ONE TABLET BY MOUTH TWICE DAILY 04/06/2014 04/08/2014 Inactive [SAVINGS FOR UNINSURED PATIENTS -- BIN:110242 , PCN: ASPROD1, Group: [id number], ID# [id number], Process claim through [employer], for questions: . THIS IS NOT INSURANCE.] glipizide 10 mg tablet RxNorm: 909343 1 Tablet(s) PO BID 201304/08/2014 Inactive [SAVINGS FOR UNINSURED PATIENTS -- BIN:203986, PCN: ASPROD1, Group: [id number], ID # [id number], Process claim through [employer], for questions: . THIS IS NOT INSURANCE.] pravastatin 10 mg tablet RxNorm: 097510 TAKE ONE TABLET BY MOUTH EVERY DAY 02/26/2014 05/26/2014 Inactive Sinemet 25 mg-100 mg tablet RxNorm: 764002 TAKE 1 TABLET BY MOUTH TWICE A DAY IN THE MORNING AND AT SUPPER 01/26/201401/25 Inactive Sinemet 25 mg-100 mg tablet RxNorm: 307224 Tablet(s) TAKE 1 TABLET BY MOUTH TWICE A DAY IN THE MORNING AND AT SUPPER 01/26/2014 05/29/2014 Inactive [SAVINGS FOR UNINSURED PATIENTS -- BIN:549829, PCN: ASPROD1, Group: [id number], ID# [id number], Process claim through [employer], for questions: . THIS IS NOT INSURANCE.] Sinemet 25 mg-100 mg tablet RxNorm: 376274 TAKE 1 TABLET BY MOUTH TWICE A DAY IN THE MORNING AND AT SUPPER 01/26/201401/25 Inactive Sinemet 25 mg-100 mg tablet RxNorm: 284889 TAKE 1 TABLET BY MOUTH TWICE A DAY IN THE MORNING AND AT SUPPER 01/26/201401/25 Inactive pantoprazole 40 mg tablet,delayed release RxNorm: 145369 TAKE 1 TABLET DAILY 01/25/2014 10/07/2016 Inactive finasteride 5 mg tablet RxNorm: 722979 1 Tablet(s) PO daily 12/201309/30/2014 Inactive [SAVINGS FOR UNINSURED PATIENTS -- BIN:963167, PCN: ASPROD1, Group: [id number] , ID# [id number], Process claim through [employer], for questions: . THIS IS NOT INSURANCE.] sucralfate 100 mg/mL oral suspension RxNorm: 552661 10 Milliliter(s) PO QID 01/23/2014 09/30/2014 Inactive dispense qs x 1 month lisinopril 20 mg tablet RxNorm: 585467 TAKE ONE TABLET BY MOUTH TWICE DAILY 12/27/2013 03/26/2014 Inactive pantoprazole 40 mg tablet,delayed release RxNorm: 419868 1 Tablet(s) PO daily 12/26/2013 12/25/2013 Inactive [SAVINGS FOR UNINSURED PATIENTS -- BIN:587593, PCN: ASPROD1, Group: [id number], ID# [id number], Process claim through [employer], for questions: . THIS IS NOT INSURANCE.] pantoprazole 40 mg tablet,delayed release RxNorm: 906358 1 Tablet(s) PO daily 12/26/2013 12/20/2014 Inactive [SAVINGS FOR UNINSURED PATIENTS -- BIN:068096, PCN: ASPROD1, Group: [id number], ID# [id number], Process claim through [employer], for questions: . THIS IS NOT INSURANCE.] gemfibrozil 600 mg tablet RxNorm: 644891 1 Tablet(s) PO BID 11/201310/23/2013 Inactive gemfibrozil 600 mg tablet RxNorm: 819631 1 Tablet(s) PO BID 11/201309/30/2014 Inactive [SAVINGS FOR UNINSURED PATIENTS -- BIN:534436, PCN: ASPROD1, Group: [id number] , ID# [id number], Process claim through [employer], for questions: . THIS IS NOT INSURANCE.] finasteride 5 mg tablet RxNorm: 345735 1 Tablet(s) PO daily 04/201301/24/2014 Inactive [SAVINGS FOR UNINSURED PATIENTS -- BIN:479693, PCN: ASPROD1, Group: [id number] , ID# [id number], Process claim through [employer], for questions: . THIS IS NOT INSURANCE.] Lantus Solostar 100 unit/mL (3 mL) subcutaneous insulin pen RxNorm: 970444 20 Unit(s) SQ daily 10/09/2013 05/29/2014 Inactive [SAVINGS FOR UNINSURED PATIENTS -- BIN:275493, PCN: ASPROD1, Group: [id number], ID# [id number], Process claim through [employer], for questions: . THIS IS NOT INSURANCE.] glipizide 10 mg tablet RxNorm: 096233 1 Tablet(s) PO daily 04/05/2014 Inactive [SAVINGS FOR UNINSURED PATIENTS -- BIN:322068, PCN: ASPROD1, Group: [id number] , ID# [id number], Process claim through [employer], for questions: . THIS IS NOT INSURANCE.] Lantus Solostar 100 unit/mL (3 mL) subcutaneous insulin pen RxNorm: 642262 20 Unit(s) SQ daily 07/18/2013 10/08/2013 Inactive Sinemet 25 mg-100 mg tablet RxNorm: 017841 1 Tablet(s) PO BID one pill in morning , one at supper 07/10/2013 01/25/2014 Inactive Sinemet 25 mg-100 mg tablet RxNorm: 128942 1 Tablet(s) PO BID one pill in morning , one at supper 04/24/2013 07/09/2013 Inactive metformin ER 500 mg tablet,extended release 24 hr RxNorm: 704297 1 Tablet(s) PO BID 04/24/2013 04/18/2014 Inactive glipizide 10 mg tablet RxNorm: 098061 1 Tablet(s) PO daily 09/201310/08/2013 Inactive lisinopril 20 mg tablet RxNorm: 825428 1 Tablet(s) PO BID 04/2410/20/2013 Inactive pravastatin 10 mg tablet RxNorm: 285191 1 Tablet(s) PO daily 10/20/2013 Inactive Lantus Solostar 100 unit/mL (3 mL) subcutaneous insulin pen RxNorm: 981622 20 Unit(s) SQ daily 04/24/2013 07/17/2013 Inactive glipizide 10 mg tablet RxNorm: 510325 1 Tablet(s) PO daily 05/201304/23/2013 Inactive glipizide 10 mg tablet RxNorm: 859329 1 Tablet(s) PO daily 05/201204/19/2013 Inactive Lantus Solostar 100 unit/mL (3 mL) subcutaneous insulin pen RxNorm: 951132 16 Unit(s) SQ daily 03/20/2013 04/23/2013 Inactive Sinemet 25 mg-100 mg tablet RxNorm: 674677 1 Tablet(s) PO BID one pill in morning , one at supper 01/20/2013 04/23/2013 Inactive Lantus Solostar 100 unit/mL (3 mL) subcutaneous insulin pen RxNorm: 996260 16 Unit(s) SQ daily 01/19/2013 01/25/2013 Inactive Sinemet 25 mg-100 mg tablet RxNorm: 195651 1 Tablet(s) PO BID one pill in morning , one at supper 01/19/2013 01/19/2013 Inactive glipizide 10 mg tablet RxNorm: 101382 1 Tablet(s) PO BID 201203/19/2013 Inactive Lantus Solostar 100 unit/mL (3 mL) Sub-Q Insulin Pen RxNorm: 552007 12 Unit(s) SQ daily 12/21/2012 01/18/2013 Inactive lisinopril 20 mg tablet RxNorm: 215750 1 Tablet(s) PO BID 12/0804/23/2013 Inactive metformin ER 500 mg tablet,extended release 24 hr RxNorm: 069690 1 Tablet(s) PO BID 11/30/2012 04/23/2013 Inactive Lantus Solostar 100 unit/mL (3 mL) Sub-Q Insulin Pen RxNorm: 887917 5 Unit(s) SQ daily 11/30/2012 12/07/2012 Inactive FINASTERIDE TAB 5MG RxNorm: 10/03/2012 Inactive lisinopril 20 mg tablet RxNorm: 105361 1 Tablet(s) PO BID 09/0812/06/2012 Inactive glipizide 10 mg tablet RxNorm: 001133 1 Tablet(s) PO BID 201212/30/2012 Inactive metronidazole 500 mg tablet RxNorm: 751691 1 Tablet(s) PO TID 05/30/2012 06/08/2012 Inactive metformin ER 500 mg tablet,extended release 24 hr RxNorm: 121096 2 Tablet(s) PO daily 04/22/2012 11/29/2012 Inactive metformin ER 500 mg tablet,extended release 24 hr RxNorm: 092057 2 Tablet(s) PO daily 04/21/2012 04/21/2012 Inactive ketoconazole 2 % Topical Cream RxNorm: 516410 1 Application TOP BID 04/14/2012 05/04/2012 Inactive ketoconazole 2 % Shampoo RxNorm: 517463 1 Application TOP every other day apply to feet, leave on for 5 minutes, then rinse. 04/14/2012 04/27/2012 Inactive clotrimazole 1 % Topical Cream RxNorm: 129317 1 Application TOP BID 02/22/2012 04/03/2012 Inactive glipizide 10 mg tablet RxNorm: 364061 1 Tablet(s) PO BID 201106/18/2012 Inactive lisinopril 20 mg tablet RxNorm: 505641 1 Tablet(s) PO BID 09/0108/26/2012 Inactive metformin ER 500 mg tablet,extended release 24 hr RxNorm: 162305 2 Tablet(s) PO daily 08/10/2011 04/20/2012 Inactive metformin ER 1,000 mg 24 hr Tab Ctrl Rel RxNorm: 242829 1 Tablet(s) PO daily 07/28/2011 08/09/2011 Inactive Kombiglyze XR 5 mg-1,000 mg 24 hr Tab RxNorm: 1133243 1 Tablet(s) PO daily 07/28/2011 07/27/2011 Inactive Kombiglyze XR 5 mg-1,000 mg 24 hr Tab RxNorm: 3190970 1 Tablet(s) PO daily 07/28/2011 07/28/2011 Inactive glipizide 10 mg tablet RxNorm: 425410 1 Tablet(s) PO BID 201107/27/2011 Inactive glipizide 10 mg Tab RxNorm: 748569 1 Tablet(s) PO BID 201106/16/2011 Inactive glipizide 10 mg Tab RxNorm: 273541 1 Tablet(s) PO BID 201006/15/2011 Inactive glipizide 10 mg Tab RxNorm: 705130 1 Tablet(s) PO BID 201004/01/2011 Inactive glipizide 10 mg Tab RxNorm: 236254 Tablet(s) PO BID 201003/31/2011 Inactive Calcium + Vitamin D 600 mg calcium-200 unit tablet RxNorm: 295325 1 Tablet(s) PO BID No Start Date Active pantoprazole 40 mg tablet,delayed release RxNorm: 241182 1 Tablet(s) PO daily No Start Date 12/25/2013 Inactive Sinemet 25 mg-100 mg tablet RxNorm: 498145 1/2 Tablet(s) PO BID one pill in morning, one at supper No Start Date 01/18 Inactive levothyroxine 100 mcg tablet RxNorm: 816586 1 Tablet(s) PO daily No Start Date 10/04/2016 Inactive lisinopril 20 mg Tab RxNorm: 586902 1 Tablet(s) PO BID No Start Date 09/01/2011 Inactive hydrocodone 5 mg-acetaminophen 325 mg tablet RxNorm: 382153 1-2 Tablet(s) PO Q6- 8H No Start Date 01/20/2016 Inactive pravastatin 10 mg tablet RxNorm: 821446 1 Tablet(s) PO daily No Start Date 04/23/2013 Inactive Medication Administered Medication Codes Instructions Start Date Status Kenalog 40 mg/mL suspension for injection RxNorm: 6503511 1Milliliter 07/30/2016 No longer Active Kenalog 40 mg/mL suspension for injection RxNorm: 4895120 1Milliliter 01/20/2016 No longer Active Immunizations Vaccine [...] Item Item Code Result Date Tsh Ord6 TSH (3rd IS) 3.10 uIU/mL 02/17/2018 Comp Metabolic Zps540 NA 135 mEq/L 02/17/2018 Comp Metabolic Ywt817 K 4.7 mEq/L 02/17/2018 Comp Metabolic Hph593 CL 97 mEq/L 02/17/2018 Comp Metabolic Xyq033 CO2 27.0 mEq/L 02/17/2018 Comp Metabolic Fyc352 ANION GAP 16 02/17/2018 Comp Metabolic Ejw031 GLUCOSE 141 mg/dL 02/17/2018 Comp Metabolic Ftv831 Creat 1.5 mg/dL 02/17/2018 Comp Metabolic Rbt877 eGFR 48 ml/min/1.73m2 02/17/2018 Comp Metabolic Nlx507 BUN 29 mg/dL 02/17/2018 Comp Metabolic Oao586 B/C Ratio 19.5 Ratio 02/17/2018 Comp Metabolic Pwa242 CALCIUM 9.4 mg/dL 02/17/2018 Comp Metabolic Len366 ALK PHOS 57 U/L 02/17/2018 Comp Metabolic Roz625 AST(SGOT) 13 U/L 02/17/2018 Comp Metabolic Tpy479 ALT(SGPT) 4 U/L 02/17/2018 Comp Metabolic Byj259 BILI T 0.6 mg/dL 02/17/2018 Comp Metabolic Dkn127 ALBUMIN 4.2 g/dL 02/17/2018 Comp Metabolic Tco489 TPRO 6.7 g/dL 02/17/2018 Comp Metabolic Yhv373 GLOB 2.5 g/dL 02/17/2018 Comp Metabolic Vyc568 A/G Ratio 1.7 Ratio 02/17/2018 Comp Metabolic Mux011 Osmo 278 mOsmo 02/17/2018 %Hba1C Ryi144 % HbA1c 23131-4 7.1 % 02/17/2018 %Hba1C Xtw156 Gluc Ave 157 mg/dL 02/17/2018 Free T4 Pqn655 FREE T4 1.36 ng/dL 02/17/2018 Folate Ord36 Folate 19.00 ng/mL 01/11/2018 B12 Jwh163 B12 342.00 pg/ml 01/11/2018 Cbc With Differential [...] 31.5 pg 09/17/2017 Cbc With Differential Ord2 [place]% 9.5 % 09/17/2017 Cbc With Differential Ord2 Eos% 2.4 % 09/17/2017 Cbc With Differential Ord2 MCHC 33.6 pg 09/17/2017 Cbc With Differential Ord2 Baso% 0.3 % 09/17/2017 Cbc With Differential Ord2 PLT 181 K/ul 09/17/2017 Cbc With Differential Ord2 RDW 13.5 % 09/17/2017 Cbc With Differential Ord2 Neut ABS# 4.52 K/ul 09/17/2017 Cbc With Differential Ord2 Lymph ABS# 1.93 K/ul 09/17/2017 Cbc With Differential Ord2 [place] ABS# 0.7 K/ul 09/17/2017 Cbc With Differential Ord2 Eos ABS# 0.2 K/ul 09/17/2017 Cbc With Differential Ord2 Baso ABS# 0.0 K/ul 09/17/2017 %Hba1C Cfa317 % HbA1c 91552-4 6.8 % 09/17/2017 %Hba1C Afp712 Gluc Ave 148 mg/dL 09/17/2017 Comp Metabolic Jag641 NA 134 mEq/L 09/17/2017 Comp Metabolic Osq057 K 4.4 mEq/L 09/17/2017 Comp Metabolic Ulk034 CL 98 mEq/L 09/17/2017 Comp Metabolic Wcl357 CO2 25.0 mEq/L 09/17/2017 Comp Metabolic Tmf894 ANION GAP 15 09/17/2017 Comp Metabolic Ieo758 GLUCOSE 97 mg/dL 09/17/2017 Comp Metabolic Skg151 Creat 1.7 mg/dL 09/17/2017 Comp Metabolic Ovj334 eGFR 40 ml/min/1.73m2 09/17/2017 Comp Metabolic Dyj175 BUN 28 mg/dL 09/17/2017 Comp Metabolic Hsi798 B/C Ratio 16.2 Ratio 09/17/2017 Comp Metabolic Vij324 CALCIUM 9.1 mg/dL 09/17/2017 Comp Metabolic Etb887 ALK PHOS 76 U/L 09/17/2017 Comp Metabolic Cex238 AST(SGOT) 17 U/L 09/17/2017 Comp Metabolic Wgp343 ALT(SGPT) 15 U/L 09/17/2017 Comp Metabolic Pma990 BILI T 0.7 mg/dL 09/17/2017 Comp Metabolic Jia969 ALBUMIN 4.1 g/dL 09/17/2017 Comp Metabolic Ggk065 TPRO 6.9 g/dL 09/17/2017 Comp Metabolic Ine126 GLOB 2.8 g/dL 09/17/2017 Comp Metabolic Uis203 A/G Ratio 1.5 Ratio 09/17/2017 Comp Metabolic Wiu025 Osmo 274 mOsmo 09/17/2017 Free T4 Lyg833 FREE T4 1.10 ng/dL 09/17/2017 Tsh Ord6 TSH (3rd IS) 5.75 uIU/mL 09/17/2017 Lipid Ord30 CHOL 210 mg/dL 09/17/2017 Lipid Ord30 HDL 40.0 mg/dl 09/17/2017 Lipid Ord30 TRIG 256 mg/dL 09/17/2017 Lipid Ord30 LDL 119 mg/dL 09/17/2017 Lipid Ord30 C/HDL 5.3 Ratio 09/17/2017 %Hba1C Rst265 % HbA1c 86226-5 7.0 % 05/13/2017 %Hba1C Ldb379 Gluc Ave 154 mg/dL 05/13/2017 Free T4 Ulb082 FREE T4 1.29 ng/dL 05/13/2017 Tsh Ord6 TSH (3rd IS) 4.14 uIU/mL 05/13/2017 Tsh Ord6 hTSH II 9.43 uIU/mL 02/02/2017 Cbc With Differential Ord2 WBC 8.16 [...] 31.2 pg 02/02/2017 Cbc With Differential Ord2 Childress% 9.6 % 02/02/2017 Cbc With Differential Ord2 MCHC 33.6 pg 02/02/2017 Cbc With Differential Ord2 Eos% 2.9 % 02/02/2017 Cbc With Differential Ord2 PLT 151 K/ul 02/02/2017 Cbc With Differential Ord2 Baso% 0.6 % 02/02/2017 Cbc With Differential Ord2 Neut ABS# 4.48 K/ul 02/02/2017 Cbc With Differential Ord2 RDW 14.1 % 02/02/2017 Cbc With Differential Ord2 Lymph ABS# 2.61 K/ul 02/02/2017 Cbc With Differential Ord2 Child[place] ABS# 0.8 K/ul 02/02/2017 Cbc With Differential Ord2 Eos ABS# 0.2 K/ul 02/02/2017 Cbc With Differential Ord2 Baso ABS# 0.1 K/ul 02/02/2017 Free T4 Cmt936 FREE T4 1.23 ng/dL 02/02/2017 %Hba1C Ywx525 % HbA1c 04531-0 7.5 % 02/02/2017 %Hba1C Jap702 Gluc Ave 169 mg/dL 02/02/2017 Comp Metabolic Bng431 NA 134 mEq/L 02/02/2017 Comp Metabolic Cpu642 K 4.4 mEq/L 02/02/2017 Comp Metabolic Bmo698 CL 99 mEq/L 02/02/2017 Comp Metabolic Ozb571 CO2 26.0 mEq/L 02/02/2017 Comp Metabolic Hcq333 ANION GAP 13 02/02/2017 Comp Metabolic Pob385 GLUCOSE 256 mg/dL 02/02/2017 Comp Metabolic Ccv368 Creat 1.6 mg/dL 02/02/2017 Comp Metabolic Oto206 eGFR 45 ml/min/1.73m2 02/02/2017 Comp Metabolic Msd685 BUN 26 mg/dL 02/02/2017 Comp Metabolic Anv435 B/C Ratio 16.6 Ratio 02/02/2017 Comp Metabolic Ohj030 CALCIUM 8.7 mg/dL 02/02/2017 Comp Metabolic Oxa611 ALK PHOS 63 U/L 02/02/2017 Comp Metabolic Ehb721 AST(SGOT) 11 U/L 02/02/2017 Comp Metabolic Jos679 ALT(SGPT) 9 U/L 02/02/2017 Comp Metabolic Cur542 BILI T 0.5 mg/dL 02/02/2017 Comp Metabolic Pyi773 ALBUMIN 3.7 g/dL 02/02/2017 Comp Metabolic Hof754 TPRO 6.1 g/dL 02/02/2017 Comp Metabolic Wwj858 GLOB 2.4 g/dL 02/02/2017 Comp Metabolic Ycn372 A/G Ratio 1.6 Ratio 02/02/2017 Comp Metabolic Vli672 Osmo 282 mOsmo 02/02/2017 Free T4 Ycu253 FREE T4 1.14 ng/dL 07/14/2016 Total T3 Ord42 TT3 0.59 ng/ml 07/14/2016 Tsh Ord6 hTSH II 0.44 uIU/mL 06/22/2016 Cbc With Differential Ord2 WBC 6.90 K/ul 06/22/2016 Cbc With Differential Ord2 RBC 4.50 M/ul 06/22/2016 Cbc With Differential Ord2 HGB 14.3 g/dl 06/22/2016 Cbc With Differential Ord2 HCT 42.6 % 06/22/2016 Cbc With Differential Ord2 Neut% 51.6 % 06/22/2016 Cbc With Differential Ord2 Lymph% 34.9 % 06/22/2016 Cbc With Differential Ord2 MCV 94.7 fl 06/22/2016 Cbc With Differential Ord2 Childress% 9.9 % 06/22/2016 Cbc With Differential Ord2 MCH 31.8 pg 06/22/2016 Cbc With Differential Ord2 MCHC 33.6 pg 06/22/2016 Cbc With Differential Ord2 Eos% 3.3 % 06/22/2016 Cbc With Differential Ord2 Baso% 0.3 % 06/22/2016 Cbc With Differential Ord2 PLT 165 K/ul 06/22/2016 Cbc With Differential Ord2 RDW 13.9 % 06/22/2016 Cbc With Differential Ord2 Neut ABS# 3.56 K/ul 06/22/2016 Cbc With Differential Ord2 Lymph ABS# 2.41 K/ul 06/22/2016 Cbc With Differential Ord2 Childress ABS# 0.7 K/ul 06/22/2016 Cbc With Differential Ord2 Eos ABS# 0.2 K/ul 06/22/2016 Cbc With Differential Ord2 Baso ABS# 0.0 K/ul 06/22/2016 Comp Metabolic Hnm287 NA 134 mEq/L 06/22/2016 Comp Metabolic Rvp968 K 4.3 mEq/L 06/22/2016 Comp Metabolic Kzt553 CL 100 mEq/L 06/22/2016 Comp Metabolic Psv929 CO2 26.0 mEq/L 06/22/2016 Comp Metabolic Snk550 ANION GAP 12 06/22/2016 Comp Metabolic Vch725 GLUCOSE 222 mg/dL 06/22/2016 Comp Metabolic Mxz609 Creat 1.5 mg/dL 06/22/2016 Comp Metabolic Uii207 eGFR 49 ml/min/1.73m2 06/22/2016 Comp Metabolic Qra007 BUN 23 mg/dL 06/22/2016 Comp Metabolic Nwk267 B/C Ratio 15.9 Ratio 06/22/2016 Comp Metabolic Eij389 CALCIUM 9.0 mg/dL 06/22/2016 Comp Metabolic Zqy569 ALK PHOS 59 U/L 06/22/2016 Comp Metabolic Cye196 AST(SGOT) 13 U/L 06/22/2016 Comp Metabolic Cmf744 ALT(SGPT) 11 U/L 06/22/2016 Comp Metabolic Rao989 BILI T 0.5 mg/dL 06/22/2016 Comp Metabolic Vdn471 ALBUMIN 3.8 g/dL 06/22/2016 Comp Metabolic Fgr082 TPRO 6.2 g/dL 06/22/2016 Comp Metabolic Ikd420 GLOB 2.4 g/dL 06/22/2016 Comp Metabolic Jwm678 A/G Ratio 1.6 Ratio 06/22/2016 Comp Metabolic Fkb015 Osmo 279 mOsmo 06/22/2016 %Hba1C Vez465 % HbA1c 07191-0 7.2 % 04/27/2016 %Hba1C Xqv547 Gluc Ave 160 mg/dL 04/27/2016 Comp Metabolic Tbm474 NA 134 mEq/L 04/27/2016 Comp Metabolic Stt753 K 4.6 mEq/L 04/27/2016 Comp Metabolic Fde485 CL 99 mEq/L 04/27/2016 Comp Metabolic Nxd766 CO2 27.0 mEq/L 04/27/2016 Comp Metabolic Xoc410 ANION GAP 13 04/27/2016 Comp Metabolic Jap632 GLUCOSE 178 mg/dL 04/27/2016 Comp Metabolic Ixb425 Creat 1.4 mg/dL 04/27/2016 Comp Metabolic Zpj576 eGFR 53 ml/min/1.73m2 04/27/2016 Comp Metabolic Ugp787 BUN 24 mg/dL 04/27/2016 Comp Metabolic Nfq435 B/C Ratio 17.5 Ratio 04/27/2016 Comp Metabolic Ddg300 CALCIUM 9.1 mg/dL 04/27/2016 Comp Metabolic Bix300 ALK PHOS 72 U/L 04/27/2016 Comp Metabolic Xqx469 AST(SGOT) 16 U/L 04/27/2016 Comp Metabolic Kco826 ALT(SGPT) 12 U/L 04/27/2016 Comp Metabolic Quo636 BILI T 0.6 mg/dL 04/27/2016 Comp Metabolic Goe828 ALBUMIN 4.1 g/dL 04/27/2016 Comp Metabolic Kso577 TPRO 6.8 g/dL 04/27/2016 Comp Metabolic Tgz750 GLOB 2.7 g/dL 04/27/2016 Comp Metabolic Mgh979 A/G Ratio 1.6 Ratio 04/27/2016 Comp Metabolic Hoc036 Osmo 277 mOsmo 04/27/2016 Cbc With Differential [...] 93.8 fl 04/27/2016 Cbc With Differential Ord2 Childress% 9.7 % 04/27/2016 Cbc With Differential Ord2 MCH 31.9 pg 04/27/2016 Cbc With Differential Ord2 MCHC 34.0 pg 04/27/2016 Cbc With Differential Ord2 Eos% 2.8 % 04/27/2016 Cbc With Differential Ord2 Baso% 0.3 % 04/27/2016 Cbc With Differential Ord2 PLT 159 K/ul 04/27/2016 Cbc With Differential Ord2 Neut ABS# 4.71 K/ul 04/27/2016 Cbc With Differential Ord2 RDW 13.8 % 04/27/2016 Cbc With Differential Ord2 Lymph ABS# 2.89 K/ul 04/27/2016 Cbc With Differential Ord2 Child[place] ABS# 0.9 K/ul 04/27/2016 Cbc With Differential Ord2 Eos ABS# 0.2 K/ul 04/27/2016 Cbc With Differential Ord2 Baso ABS# 0.0 K/ul 04/27/2016 Comp Metabolic Mve977 NA 134 mEq/L 01/21/2016 Comp Metabolic Qkd594 K 5.0 mEq/L 01/21/2016 Comp Metabolic Onk903 CL 99 mEq/L 01/21/2016 Comp Metabolic Pxc111 CO2 26.0 mEq/L 01/21/2016 Comp Metabolic Bro613 ANION GAP 14 01/21/2016 Comp Metabolic Gpl471 GLUCOSE 260 mg/dL 01/21/2016 Comp Metabolic Vxs832 Creat 1.5 mg/dL 01/21/2016 Comp Metabolic Gpe799 eGFR 50 ml/min/1.73m2 01/21/2016 Comp Metabolic Cxy548 BUN 18 mg/dL 01/21/2016 Comp Metabolic Fmy541 B/C Ratio 12.4 Ratio 01/21/2016 Comp Metabolic Xsg124 CALCIUM 8.8 mg/dL 01/21/2016 Comp Metabolic Tie981 ALK PHOS 68 U/L 01/21/2016 Comp Metabolic Jek293 AST(SGOT) 16 U/L 01/21/2016 Comp Metabolic Hch278 ALT(SGPT) 16 U/L 01/21/2016 Comp Metabolic Dxt756 BILI T 0.5 mg/dL 01/21/2016 Comp Metabolic Cbp151 ALBUMIN 3.8 g/dL 01/21/2016 Comp Metabolic Oth867 TPRO 6.3 g/dL 01/21/2016 Comp Metabolic Xdc087 GLOB 2.5 g/dL 01/21/2016 Comp Metabolic Lsc501 A/G Ratio 1.5 Ratio 01/21/2016 Comp Metabolic Xrk970 Osmo 279 mOsmo 01/21/2016 %Hba1C Hju679 % HbA1c 80951-3 7.4 % 01/21/2016 %Hba1C Fwh266 Gluc Ave 166 mg/dL 01/21/2016 Cbc With Differential Ord2 WBC 6.62 [...] 31.0 pg 01/21/2016 Cbc With Differential Ord2 Childress% 8.9 % 01/21/2016 Cbc With Differential Ord2 MCHC 33.3 pg 01/21/2016 Cbc With Differential Ord2 Eos% 2.3 % 01/21/2016 Cbc With Differential Ord2 Baso% 0.3 % 01/21/2016 Cbc With Differential Ord2 PLT 145 K/ul 01/21/2016 Cbc With Differential Ord2 RDW 14.5 % 01/21/2016 Cbc With Differential Ord2 Neut ABS# 3.95 K/ul 01/21/2016 Cbc With Differential Ord2 Lymph ABS# 1.91 K/ul 01/21/2016 Cbc With Differential Ord2 [place] ABS# 0.6 K/ul 01/21/2016 Cbc With Differential Ord2 Eos ABS# 0.2 K/ul 01/21/2016 Cbc With Differential Ord2 Baso ABS# 0.0 K/ul 01/21/2016 Metabolic Ord15 NA 127 mEq/L 12/17/2015 [...] Qnt Crqnt CRP 1.5 mg/dl 09/17/2015 %Hba1C Yck502 % HbA1c 59538-5 7.1 % 09/17/2015 %Hba1C Diz000 Gluc Ave 157 mg/dL 09/17/2015 Cbc With [...] 38.2 % 08/06/2015 Cbc With Differential Ord2 Child[place]% 9.6 % 08/06/2015 Cbc With Differential Ord2 [...] 2.90 K/ul 08/06/2015 Cbc With Differential Ord2 [place] ABS# 0.7 K/ul 08/06/2015 Cbc With Differential Ord2 Eos ABS# 0.2 K/ul 08/06/2015 Cbc With Differential Ord2 Baso ABS# 0.0 K/ul 08/06/2015 Cbc With Differential Ord2 New Analyzer Notice Please note new ref ranges starting 05-01-2015 due to implemntation of new five part differential hematolgy analyzer. 08/06/2015 Comp Metabolic Nqh209 NA 132 mEq/L 08/06/2015 Comp Metabolic Djh972 K 4.6 mEq/L 08/06/2015 Comp Metabolic Lsi306 CL 98 mEq/L 08/06/2015 Comp Metabolic Aor162 CO2 25.0 mEq/L 08/06/2015 Comp Metabolic Xdw754 ANION GAP 14 08/06/2015 Comp Metabolic Nbb605 GLUCOSE 170 mg/dL 08/06/2015 Comp Metabolic Cdt877 Creat 1.5 mg/dL 08/06/2015 Comp Metabolic Mst277 eGFR 46 ml/min/1.73m2 08/06/2015 Comp Metabolic Tic810 BUN 21 mg/dL 08/06/2015 Comp Metabolic Ivr185 B/C Ratio 13.6 Ratio 08/06/2015 Comp Metabolic Tjl516 CALCIUM 8.9 mg/dL 08/06/2015 Comp Metabolic Jlt999 ALK PHOS 60 U/L 08/06/2015 Comp Metabolic Ymu690 AST(SGOT) 16 U/L 08/06/2015 Comp Metabolic Vdg149 ALT(SGPT) 18 U/L 08/06/2015 Comp Metabolic Oxk919 BILI T 0.4 mg/dL 08/06/2015 Comp Metabolic Boy234 ALBUMIN 3.8 g/dL 08/06/2015 Comp Metabolic Hlw173 TPRO 6.3 g/dL 08/06/2015 Comp Metabolic Qyy060 GLOB 2.5 g/dL 08/06/2015 Comp Metabolic Qgb415 A/G Ratio 1.6 Ratio 08/06/2015 Comp Metabolic Hef719 Osmo 271 mOsmo 08/06/2015 Free T4 Tay655 FREE T4 1.08 ng/dL 06/17/2015 Tsh Ord6 hTSH II 0.95 uIU/mL 06/17/2015 Metabolic Ord15 NA 133 mEq/L 05/06/2015 [...] Ord15 CALCIUM 9.0 mg/dL 05/06/2015 Comp Metabolic Yzc654 NA 143 mEq/L 03/04/2015 Comp Metabolic Gvj672 K 4.5 mEq/L 03/04/2015 Comp Metabolic Dan798 CL 92 mEq/L 03/04/2015 Comp Metabolic Jdb722 CO2 24.0 mEq/L 03/04/2015 Comp Metabolic Lna426 ANION GAP 32 03/04/2015 Comp Metabolic Xbi614 GLUCOSE 72 mg/dL 03/04/2015 Comp Metabolic Zyq747 Creat 1.5 mg/dL 03/04/2015 Comp Metabolic Eaa129 eGFR 48 ml/min/1.73m2 03/04/2015 Comp Metabolic Tak745 BUN 27 mg/dL 03/04/2015 Comp Metabolic Edq791 B/C Ratio 18.0 Ratio 03/04/2015 Comp Metabolic Tax656 CALCIUM 9.1 mg/dL 03/04/2015 Comp Metabolic Alr689 ALK PHOS 58 U/L 03/04/2015 Comp Metabolic Mqf980 AST(SGOT) 16 U/L 03/04/2015 Comp Metabolic Umc714 ALT(SGPT) 13 U/L 03/04/2015 Comp Metabolic Aoa763 BILI T 0.6 mg/dL 03/04/2015 Comp Metabolic Vao778 ALBUMIN 4.0 g/dL 03/04/2015 Comp Metabolic Yig233 TPRO 6.6 g/dL 03/04/2015 Comp Metabolic Pjf891 GLOB 2.6 g/dL 03/04/2015 Comp Metabolic Orv327 A/G Ratio 1.6 Ratio 03/04/2015 Comp Metabolic Fjg139 Osmo 289 mOsmo 03/04/2015 %Hba1C Srk443 % HbA1c 87173-6 7.3 % 01/28/2015 %Hba1C Upx390 Gluc Ave 163 mg/dL 01/28/2015 MICRALUR 8463933 MICRL MG/L 13.2 MG/L 10/01/2014 MICRALUR 7653788 XM.ALB/CRE 48.9 MG/GCR 10/01/2014 MICRALUR 3327264 CREAT MG/D 27 MG/DL 10/01/2014 MICRALUR 1086789 CRE/100 0.27 G/L 10/01/2014 A1C HPLC 7182765 A1C HPLC 71190-9 7.3 % 10/01/2014 TSH 4401712 TSH 0.423 uIU/ML 10/01/2014 TSH 4270812 TSH 0.612 uIU/ML 10/18/2013 A1C HPLC 5025618 A1C HPLC 74009-4 6.8 % 10/18/2013 GFR CALC 6670131 GFR AA >60 ML/MIN 10/18/2013 GFR CALC 2059483 GFR NON-AA 52.0L ML/MIN 10/18/2013 MICRALUR 4201097 MICRL MG/L 15.6 MG/L 10/18/2013 MICRALUR 7003918 XM.ALB/CRE 9.2 MG/GCR 10/18/2013 MICRALUR 6469019 CREAT MG/D 169 MG/DL 10/18/2013 MICRALUR 8186580 CRE/100 1.69 G/L 10/18/2013 PSA EQ 20110613 PSA EQ 7.79 NG/ML 10/18/2013 CBC 5770528 WBC 6.6 10e9/L 10/18/2013 CBC 7125133 RBC 4.58 10e12/L 10/18/2013 CBC 4928829 HGB 14.6 g/dL 10/18/2013 CBC 5364410 HCT DET 42.8 % 10/18/2013 CBC 3177817 MCV 93.4 fL 10/18/2013 CBC 2551018 MCH 31.9 pg 10/18/2013 CBC 2185392 MCHC 34.1 g/dL 10/18/2013 CBC 1068567 PLT 172 10e9/L 10/18/2013 CBC 2517801 MPV 9.3 fL 10/18/2013 CBC 2935076 JAYESH % 55.4 % 10/18/2013 CBC 4829756 LY % 33.0 % 10/18/2013 CBC 0878298 MON % 8.8 % 10/18/2013 CBC 8336555 EOS % 2.6 % 10/18/2013 CBC 3015690 BASO % 0.2 % 10/18/2013 CBC 5834942 RDW 12.7 % 10/18/2013 CBC 5662507 ABS JAYESH 3.66 10e9/L 10/18/2013 CBC 5205494 ABS LYMPH 2.18 10e9/L 10/18/2013 CBC 5187750 ABS MONO 0.58 10e9/L 10/18/2013 CBC 2958319 ABS EOS 0.17 10e9/L 10/18/2013 CBC 9158270 ABS BASO 0.01 10e9/L 10/18/2013 CBC 5350802 RDW-SD 42.6 fL 10/18/2013 LIPID GRP HDL TEST 30 MG/DL 10/18/2013 LIPID GRP TRIG 425 MG/DL 10/18/2013 LIPID GRP TEST LDL HI TRIG MG/DL 10/18/2013 LIPID GRP CHOL 185 MG/DL 10/18/2013 LIPID GRP RCHOL/HDL 6.17 RATIO 10/18/2013 CHEM 14 6907533 AST 20 U/L 10/18/2013 CHEM 14 8880061 ALT 13 IU/L 10/18/2013 CHEM 14 3724692 BUN 27 MG/DL 10/18/2013 CHEM 14 9274628 ALBUMIN 4.2 GM/DL 10/18/2013 CHEM 14 7308341 CHLORIDE 100 MMOL/L 10/18/2013 CHEM 14 6559363 BILI TOT 0.5 MG/DL 10/18/2013 CHEM 14 7355344 ALK PHOS 60 U/L 10/18/2013 CHEM 14 5718552 SODIUM 131 MMOL/L 10/18/2013 CHEM 14 4695043 CREATININE 1.32 MG/DL 10/18/2013 CHEM 14 8930151 CALCIUM 9.2 MG/DL 10/18/2013 CHEM 14 4464892 POTASSIUM 4.7 MMOL/L 10/18/2013 CHEM 14 7750492 PROT TOT 7.7 GM/DL 10/18/2013 CHEM 14 5394166 GLUCOSE 140 MG/DL 10/18/2013 CHEM 14 7872705 BICARB 24 MMOL/L 10/18/2013 CHEM 14 8130446 ANION GAP 7 MEQ/L 10/18/2013 TSH 8959724 TSH 1.257 uIU/ML 05/05/2013 CHEM 14 2482695 AST 15 U/L 05/05/2013 CHEM 14 6183446 ALT 13 IU/L 05/05/2013 CHEM 14 7512846 BUN 22 MG/DL 05/05/2013 CHEM 14 9165114 ALBUMIN 4.2 GM/DL 05/05/2013 CHEM 14 6501374 CHLORIDE 104 MMOL/L 05/05/2013 CHEM 14 2717960 BILI TOT 0.6 MG/DL 05/05/2013 CHEM 14 8254544 ALK PHOS 52 U/L 05/05/2013 CHEM 14 5930831 SODIUM 137 MMOL/L 05/05/2013 CHEM 14 0837617 CREATININE 1.25 MG/DL 05/05/2013 CHEM 14 8326922 CALCIUM 9.1 MG/DL 05/05/2013 CHEM 14 6756424 POTASSIUM 5.0 MMOL/L 05/05/2013 CHEM 14 9124275 PROT TOT 6.7 GM/DL 05/05/2013 CHEM 14 5148036 GLUCOSE 142 MG/DL 05/05/2013 CHEM 14 1818900 BICARB 27 MMOL/L 05/05/2013 CHEM 14 4224797 ANION GAP 6 MEQ/L 05/05/2013 GFR CALC 7014212 GFR AA >60 ML/MIN 05/05/2013 GFR CALC 5133316 GFR NON-AA 56.0L ML/MIN 05/05/2013 CBC 1728861 WBC 6.1 10e9/L 05/05/2013 CBC 6762128 RBC 4.74 10e12/L 05/05/2013 CBC 2472912 HGB 14.7 g/dL 05/05/2013 CBC 1447543 HCT DET 43.6 % 05/05/2013 CBC 5669883 MCV 92.0 fL 05/05/2013 CBC 2995074 MCH 31.0 pg 05/05/2013 CBC 7916720 MCHC 33.7 g/dL 05/05/2013 CBC 1698369 PLT 168 10e9/L 05/05/2013 CBC 0439700 MPV 9.3 fL 05/05/2013 CBC 5580266 JAYESH % 53.2 % 05/05/2013 CBC 8331246 LY % 35.3 % 05/05/2013 CBC 7981199 MON % 8.7 % 05/05/2013 CBC 2544766 EOS % 2.5 % 05/05/2013 CBC 7485230 BASO % 0.3 % 05/05/2013 CBC 0684879 RDW 13.5 % 05/05/2013 CBC 5043502 ABS JAYESH 3.25 10e9/L 05/05/2013 CBC 2216849 ABS LYMPH 2.15 10e9/L 05/05/2013 CBC 1311449 ABS MONO 0.53 10e9/L 05/05/2013 CBC 5030601 ABS EOS 0.15 10e9/L 05/05/2013 CBC 6258983 ABS BASO 0.02 10e9/L 05/05/2013 CBC 4881703 RDW-SD 44.8 fL 05/05/2013 A1C HPLC 7972758 A1C HPLC 47845-5 6.4 % 05/05/2013 LIPID GRP HDL TEST 32 MG/DL 05/05/2013 LIPID GRP TRIG 170 MG/DL 05/05/2013 LIPID GRP TEST LDL 73 MG/DL 05/05/2013 LIPID GRP CHOL 139 MG/DL 05/05/2013 LIPID GRP RCHOL/HDL 4.34 RATIO 05/05/2013 LIPID GRP HDL TEST 39 MG/DL 11/25/2012 LIPID GRP [id number] TRIG 204 MG/DL 11/25/2012 LIPID GRP 2754027 TEST LDL 100 MG/DL 11/25/2012 LIPID GRP 3158486 CHOL 180 MG/DL 11/25/2012 LIPID GRP 0301412 RCHOL/HDL 4.62 RATIO 11/25/2012 CHEM 14 5340405 AST 17 U/L 11/25/2012 CHEM 14 0916785 ALT 21 IU/L 11/25/2012 CHEM 14 3774625 BUN 20 MG/DL 11/25/2012 CHEM 14 4022438 ALBUMIN 4.4 GM/DL 11/25/2012 CHEM 14 0556131 CHLORIDE 99 MMOL/L 11/25/2012 CHEM 14 9357704 BILI TOT 0.6 MG/DL 11/25/2012 CHEM 14 9050682 ALK PHOS 50 U/L 11/25/2012 CHEM 14 8210278 SODIUM 129 MMOL/L 11/25/2012 CHEM 14 2144845 CREATININE 1.20 MG/DL 11/25/2012 CHEM 14 1756470 CALCIUM 9.2 MG/DL 11/25/2012 CHEM 14 7994687 POTASSIUM 5.1 MMOL/L 11/25/2012 CHEM 14 8338679 PROT TOT 6.7 GM/DL 11/25/2012 CHEM 14 5661153 GLUCOSE 196 MG/DL 11/25/2012 CHEM 14 1877217 BICARB 25 MMOL/L 11/25/2012 CHEM 14 1935578 ANION GAP 5 MEQ/L 11/25/2012 CBC 4489473 WBC 6.1 10e9/L 11/25/2012 CBC 1355355 RBC 4.78 10e12/L 11/25/2012 CBC 5748046 HGB 15.0 g/dL 11/25/2012 CBC 5853828 HCT DET 43.4 % 11/25/2012 CBC 1175400 MCV 90.8 fL 11/25/2012 CBC 7115580 MCH 31.4 pg 11/25/2012 CBC 8409395 MCHC 34.6 g/dL 11/25/2012 CBC 6699473 PLT 174 10e9/L 11/25/2012 CBC 6374663 MPV 9.5 fL 11/25/2012 CBC 1304872 JAYESH % 54.6 % 11/25/2012 CBC 9231075 LY % 32.9 % 11/25/2012 CBC 3889984 MON % 9.6 % 11/25/2012 CBC 0623709 EOS % 2.6 % 11/25/2012 CBC 1598723 BASO % 0.3 % 11/25/2012 CBC 1594712 RDW 12.9 % 11/25/2012 CBC 8872757 ABS JAYESH 3.33 10e9/L 11/25/2012 CBC 0338367 ABS LYMPH 2.01 10e9/L 11/25/2012 CBC 2794216 ABS MONO 0.59 10e9/L 11/25/2012 CBC 8461634 ABS EOS 0.16 10e9/L 11/25/2012 CBC 5658076 ABS BASO 0.02 10e9/L 11/25/2012 CBC 6826294 RDW-SD 42.3 fL 11/25/2012 A1C HPLC 7035182 A1C HPLC 99196-0 8.2 % 11/25/2012 GFR CALC 4201560 GFR AA >60 ML/MIN 11/25/2012 GFR CALC 9929554 GFR NON-AA 58.0L ML/MIN 11/25/2012 CBC 5556661 WBC 7.8 10e9/L 01/13/2012 CBC 7351661 RBC 4.93 10e12/L 01/13/2012 CBC 5600452 HGB 15.3 g/dL 01/13/2012 CBC 2489512 HCT DET 43.6 % 01/13/2012 CBC 9290437 MCV 88.4 fL 01/13/2012 CBC 4846348 MCH 31.0 pg 01/13/2012 CBC 1920301 MCHC 35.1 g/dL 01/13/2012 CBC 9375508 PLT 173 10e9/L 01/13/2012 CBC 8935323 MPV 9.1 fL 01/13/2012 CBC 5556574 JAYESH % 57.6 % 01/13/2012 CBC 3330563 LY % 31.5 % 01/13/2012 CBC 9466039 MON % 8.8 % 01/13/2012 CBC 3316074 EOS % 1.8 % 01/13/2012 CBC 6355078 BASO % 0.3 % 01/13/2012 CBC 4920333 RDW 12.9 % 01/13/2012 CBC 0789261 ABS JAYESH 4.49 10e9/L 01/13/2012 CBC 7371016 ABS LYMPH 2.46 10e9/L 01/13/2012 CBC 8506302 ABS MONO 0.69 10e9/L 01/13/2012 CBC 9195027 ABS EOS 0.14 10e9/L 01/13/2012 CBC 1286235 ABS BASO 0.02 10e9/L 01/13/2012 CBC 2466773 RDW-SD 41.2 fL 01/13/2012 CHEM 14 1193399 AST 21 U/L 01/13/2012 CHEM 14 0903437 ALT 23 IU/L 01/13/2012 CHEM 14 1671635 BUN 20 MG/DL 01/13/2012 CHEM 14 1893659 ALBUMIN 4.4 GM/DL 01/13/2012 CHEM 14 5134446 CHLORIDE 94 MMOL/L 01/13/2012 CHEM 14 6810182 BILI TOT 0.5 MG/DL 01/13/2012 CHEM 14 9934254 ALK PHOS 60 U/L 01/13/2012 CHEM 14 5548478 SODIUM 131 MMOL/L 01/13/2012 CHEM 14 9598596 CREATININE 1.20 MG/DL 01/13/2012 CHEM 14 3343915 CALCIUM 9.5 MG/DL 01/13/2012 CHEM 14 5632785 POTASSIUM 4.3 MMOL/L 01/13/2012 CHEM 14 8490483 PROT TOT 6.5 GM/DL 01/13/2012 CHEM 14 7963641 GLUCOSE 172 MG/DL 01/13/2012 CHEM 14 4241398 BICARB 26 MMOL/L 01/13/2012 CHEM 14 7388295 ANION GAP 11 MEQ/L 01/13/2012 TSH 1692943 TSH 0.636 uIU/ML 01/13/2012 A1C HPLC 1501877 A1C HPLC 40295-5 7.9 % 01/13/2012 GFR CALC 2468572 GFR AA >60 ML/MIN 01/13/2012 GFR CALC 5745968 GFR NON-AA 59.0L ML/MIN 01/13/2012 Review of Systems System Result Effective [...] murmurs 02/28/2014 None Full Exam - General 1995 Abdomen abdominal exam Overall: no tenderness 02/28/2014 None Full Exam - General 1995 Abdomen abdominal exam Overall: normal bowel sounds 02/28/2014 None Full Exam - General 1994 Musculoskeletal spine, ribs and pelvis Posture: lordosis 02/28/2014 None Full Exam - General 1995 Neurologic gait Conventional walking: wide-based 02/28/2014 None [...] wide-based 04/24/2013 None Full Exam - General 1995 Neurologic cranial nerves Overall: crainial nerves 2 - 12 grossly intact 04/24/2013 None Full Exam - General 1995 Psychiatric orientation/consciousness Overall: oriented to person, place and time 04/24/2013 None Full Exam - General 1995 Psychiatric mood and affect Overall: normal mood and affect 04/24/2013 None Full Exam - General 1995 Psychiatric mood and affect Mood: happy 04/24/2013 [...] distress 05/30/2012 None Full Exam - General 1995 Constitutional general appearance Overall: well nourished 05/30/2012 None Full Exam - General 1995 Eyes conjunctiva /eyelids Overall: conjunctiva clear 05/30/2012 None Full Exam - General 1995 Ears/Nose/Throat otoscopic exam Tympanic membrane: a normal exam 05/30/2012 None Full Exam - General 1994 Constitutional general appearance Overall: well developed 04/26/2012 None Full Exam - General 1995 [...] present 07/01/2011 None Full Exam - General 1995 Chest/Breast breast and axillae palpation Lower outer quadrant: Left size (cm): 2 07/01/2011 None Full Exam - General 1994 Chest/Breast breast and axillae palpation Lower outer quadrant: firm 07/01/2011 None Full Exam - General 1995 Chest/Breast breast and axillae palpation Lower outer quadrant: circumscribed 07/01/2011 None Full Exam - General 1995 [...] ACET INJ NOS CPT-4: J3301 01/20/2016 C NORM RTS (CULTURE OTHR SPECIMN AEROBIC) CPT-4: 21250 03/19/2015 DRAINAGE OF SKIN ABSCESS CPT-4: 97675 03/19/2015 ADMIN PNEUMOCOCCAL VACCINE SNOMED CT: 72594010 CPT-4: G0009 03/08/2015 PNEUMOCOCCAL VACC 13 THALIA IM Formatting Model/CDA Sections, Assigned to SNOMED CT: 33896645 CPT-4: 52661Lpvbhjl 03/08/2015 ADMIN PNEUMOCOCCAL VACCINE SNOMED CT: 82804235 CPT-4: G0009 01/23/2014 Pneumococcal Polysaccharide Vaccine, 23-Valent, Ad Assigned to/Merissa Sutton CPT-4: 66386Utzslcx 01/23/2014 DESTRUCT PREMALG LESION CPT-4: 94645 10/24/2013 DESTRUCT PREMALG LES 2-14 CPT-4: 57072 10/24/2013 ROUTINE VENIPUNCTURE CPT-4: 32563 05/05/2013 PRESCRIP TRANSMIT VIA ERX SY CPT-4: G8553 04/24/2013 DESTRUCT PREMALG LESION CPT-4: 44110 12/26/2012 PRESCRIP TRANSMIT VIA ERX SY CPT-4: G8553 11/30/2012 ROUTINE VENIPUNCTURE CPT-4: 93123 11/25/2012 PRESCRIP TRANSMIT VIA ERX SY CPT-4: G8553 05/30/2012 PRESCRIP TRANSMIT VIA ERX SY CPT-4: G8553 04/14/2012 PRESCRIP TRANSMIT VIA ERX SY CPT-4: G8553 02/22/2012 ROUTINE VENIPUNCTURE CPT-4: 75416 01/13/2012 ROUTINE VENIPUNCTURE CPT-4: 03611 08/06/2011 ROUTINE VENIPUNCTURE CPT-4: 84915 06/25/2011 Vital Signs Date Vital 05/04/2018 Blood Pressure 1: 140/72 Code : 8480-6 BMI: 29.1 Code : 18108-9 Heart Rate 1 : 65 bpm Height: 6'2" SpO2: 98% Weight: 227 lbs 02/17/2018 Blood Pressure 1: 140/74 Code : 8480-6 BMI: 29.7 Code : 28513-5 Heart Rate 1 : 67 bpm Height: 6'2" SpO2: 98% Waist Measure (cm): 112 cm Weight: 231 lbs 01/11/2018 Blood Pressure 1: 140/80 Code : 8480-6 BMI: 29.4 Code : 09849-3 Heart Rate 1 : 72 bpm Height: 6'2" SpO2: 92% Weight: 229 lbs 09/16/2017 Blood Pressure 1: 136/78 Code : 8480-6 BMI: 28.8 Code : 04033-9 Heart Rate 1 : 74 bpm Height: 6'2" SpO2: 94% Weight: 224 lbs 07/13/2017 Blood Pressure 1: 142/78 Code : 8480-6 BMI: 29.3 Code : 30165-3 Heart Rate 1 : 67 bpm Height: 6'2" SpO2: 97% Weight: 228 lbs 05/13/2017 Blood Pressure 1: 154/82 Code : 8480-6 BMI: 30.0 Code : 57786-6 Heart Rate 1 : 65 bpm Height: 6'2" SpO2: 98% Weight: 234 lbs 04/28/2017 Blood Pressure 1: 134/78 Code : 8480-6 BMI: 29.7 Code : 56282-2 Heart Rate 1 : 73 bpm Height: 6'2" SpO2: 94% Weight: 231 lbs 04/15/2017 Blood Pressure 1: 152/74 Code : 8480-6 BMI: 29.7 Code : 30575-2 Heart Rate 1 : 64 bpm Height: 6'2" SpO2: 98% Weight: 231 lbs 02/04/2017 Blood Pressure 1: 140/78 Code : 8480-6 BMI: 30.0 Code : 63800-1 Heart Rate 1 : 83 bpm Height: 6'2" SpO2: 97% Weight: 234 lbs 10/12/2016 Blood Pressure 1: 148/68 Code : 8480-6 BMI: 29.3 Code : 59142-6 Heart Rate 1 : 65 bpm Height: 6'2" SpO2: 100% Weight: 228 lbs 10/08/2016 Blood Pressure 1: 148/68 Code : 8480-6 BMI: 29.3 Code : 54759-4 Heart Rate 1 : 65 bpm Height: 6'2" SpO2: 100% Weight: 228 lbs 8 oz 09/10/2016 Blood Pressure 1: 142/68 Code : 8480-6 BMI: 29.3 Code : 56865-1 Heart Rate 1 : 75 bpm Height: 6'2" SpO2: 97% Weight: 228 lbs 08/24/2016 Blood Pressure 1: 156/86 Code : 8480-6 BMI: 28.1 Code : 19857-3 Heart Rate 1 : 72 bpm Height: 6'2" SpO2: 97% Weight: 219 lbs 08/06/2016 Blood Pressure 1: 172/90 Code : 8480-6 BMI: 29.0 Code : 16919-5 Heart Rate 1 : 68 bpm Height: 6'2" SpO2: 98% Temperature: 36.1 (C) / 96.9 (F) Weight: 226 lbs 07/30/2016 Blood Pressure 1: 138/86 Code : 8480-6 BMI: 29.7 Code : 98320-2 Heart Rate 1 : 80 bpm Height: 6'2" SpO2: 95% Temperature: 36.5 (C) / 97.7 (F) Weight: 231 lbs 06/22/2016 Blood Pressure 1: 145/82 Code : 8480-6 Heart Rate 1: 77 bpm Respiratory Rate : 18 bpm SpO2: 97% Weight: 231 lbs 04/27/2016 Blood Pressure 1: 182/78 Code : 8480-6 Blood Pressure 1: 158/76 Code: 8480-6 BMI: 30.4 Code: 70955-3 Heart Rate 1: 69 bpm Height: 6'2" SpO2: 97% Weight: 237 lbs 03/23/2016 Blood Pressure 1: 140/82 Code : 8480-6 BMI: 30.4 Code : 90426-0 Heart Rate 1 : 77 bpm Height: 6'2" SpO2: 93% Weight: 237 lbs 01/20/2016 Blood Pressure 1: 142/80 Code : 8480-6 BMI: 31.2 Code : 23968-0 Heart Rate 1 : 64 bpm Height: 6'2" SpO2: 93% Weight: 243 lbs 12/16/2015 Blood Pressure 1: 138/88 Code : 8480-6 BMI: 30.3 Code : 69495-3 Heart Rate 1 : 62 bpm Height: 6'2" SpO2: 97% Weight: 236 lbs 12/09/2015 Blood Pressure 1: 198/92 Code : 8480-6 Blood Pressure 1: 152/70 Code: 8480-6 Blood Pressure 1: 148/80 Code: 8480-6 BMI: 30.3 Code: 55829-8 Heart Rate 1: 84 bpm Height: 6'2" Weight: 236 lbs 11/25/2015 Blood Pressure 1: 160/80 Code : 8480-6 BMI: 30.2 Code : 17575-9 Heart Rate 1 : 68 bpm Height: 6'2" SpO2: 96% Weight: 235 lbs 09/02/2015 Blood Pressure 1: 122/64 Code : 8480-6 BMI: 30.2 Code : 01890-2 Heart Rate 1 : 86 bpm Height: 6'2" SpO2: 98% Weight: 235 lbs 08/05/2015 Blood Pressure 1: 130/70 Code : 8480-6 Heart Rate 1: 81 bpm SpO2: 97% Weight: 233 lbs 07/25/2015 Blood Pressure 1: 142/80 Code : 8480-6 BMI: 30.0 Code : 64789-9 Heart Rate 1 : 74 bpm Height: 6'2" SpO2: 95% Weight: 234 lbs 06/03/2015 Blood Pressure 1: 150/68 Code : 8480-6 BMI: 30.0 Code : 27905-1 Heart Rate 1 : 66 bpm Height: 6'2" SpO2: 96% Weight: 234 lbs 03/19/2015 Blood Pressure 1: 154/78 Code : 8480-6 BMI: 30.3 Code : 69297-5 Heart Rate 1 : 63 bpm Height: 6'2" SpO2: 96% Weight: 236 lbs 03/04/2015 Blood Pressure 1: 124/68 Code : 8480-6 BMI: 30.2 Code : 68904-8 Heart Rate 1 : 60 bpm Height: 6'2" SpO2: 97% Weight: 235 lbs 02/20/2015 Blood Pressure 1: 160/84 Code : 8480-6 BMI: 30.8 Code : 51249-4 Heart Rate 1 : 79 bpm Height: 6'2" SpO2: 96% Weight: 240 lbs 02/11/2015 Blood Pressure 1: 170/102 Code: 8480-6 BMI: 31.1 Code: 74778-6 Heart Rate 1: 81 bpm Height: 6'2" SpO2: 96% Weight: 242 lbs 01/28/2015 Blood Pressure 1: 174/80 Code : 8480-6 Blood Pressure 2: 168/74 Code: 8480-6 BMI: 31.2 Code: 23486-0 Heart Rate 1: 74 bpm Height: 6'2" SpO2: 97% Weight: 243 lbs 10/01/2014 Blood Pressure 1: 152/84 Code : 8480-6 BMI: 30.4 Code : 39563-9 Heart Rate 1 : 80 bpm Height: 6'2" SpO2: 96% Weight: 237 lbs 05/30/2014 Blood Pressure 1: 140/82 Code : 8480-6 BMI: 30.6 Code : 05582-9 Heart Rate 1 : 86 bpm Height: 6'2" Weight: 238 lbs 02/28/2014 Blood Pressure 1: 152/86 Code : 8480-6 BMI: 29.5 Code : 84550-7 Heart Rate 1 : 64 bpm Height: 6'2" Weight: 230 lbs 01/23/2014 Blood Pressure 1: 142/68 Code : 8480-6 BMI: 29.7 Code : 77197-7 Heart Rate 1 : 80 bpm Height: 6'2" Weight: 231 lbs 12/26/2013 Blood Pressure 1: 150/72 Code : 8480-6 BMI: 29.3 Code : 73332-5 Heart Rate 1 : 60 bpm Height: 6'2" Respiratory Rate: 16 bpm Weight: 228 lbs 8 oz 10/24/2013 Blood Pressure 1: 140/84 Code : 8480-6 Heart Rate 1: 60 bpm 10/17/2013 Blood Pressure 1: 166/72 Code : 8480-6 BMI: 28.8 Code : 70077-5 Heart Rate 1 : 68 bpm Height: 6'2" Weight: 224 lbs 07/24/2013 Blood Pressure 1: 112/64 Code : 8480-6 BMI: 29.1 Code : 18919-0 Heart Rate 1 : 80 bpm Height: 6'2" Weight: 227 lbs 04/24/2013 Blood Pressure 1: 130/74 Code : 8480-6 BMI: 28.9 Code : 99995-1 Heart Rate 1 : 76 bpm Height: 6'2" Weight: 225 lbs 6 oz 03/20/2013 Blood Pressure 1: 150/70 Code : 8480-6 BMI: 29.7 Code : 91944-3 Heart Rate 1 : 76 bpm Height: 6'2" Temperature: 37.0 (C) / 98.6 (F) Weight: 231 lbs 01/19/2013 Blood Pressure 1: 150/78 Code : 8480-6 BMI: 30.2 Code : 10022-9 Heart Rate 1 : 84 bpm Height: 6'2" Weight: 235 lbs 12/26/2012 Blood Pressure 1: 142/78 Code : 8480-6 BMI: 29.9 Code : 93294-5 Heart Rate 1 : 84 bpm Height: 6'2" Weight: 233 lbs 12/21/2012 Blood Pressure 1: 142/80 Code : 8480-6 BMI: 29.5 Code : 43948-4 Heart Rate 1 : 80 bpm Height: 6'2" Weight: 230 lbs 11/30/2012 Blood Pressure 1: 146/78 Code : 8480-6 BMI: 29.4 Code : 21403-2 Heart Rate 1 : 80 bpm Height: 6'2" Weight: 229 lbs 05/30/2012 Blood Pressure 1: 150/74 Code : 8480-6 BMI: 29.4 Code : 29640-3 Heart Rate 1 : 76 bpm Height: 6'2" Respiratory Rate: 16 bpm Weight: 229 lbs 04/26/2012 Blood Pressure 1: 124/64 Code : 8480-6 Heart Rate 1: 90 bpm SpO2: 98% Temperature: 36.7 (C) / 98.1 (F) Weight: 04/14/2012 Blood Pressure 1: 150/88 Code : 8480-6 Blood Pressure 2: 150/90 Code: 8480-6 BMI: 29.4 Code: 52677-9 Heart Rate 1: 72 bpm Height: 6'2" [...] Code : 8480-6 BMI: 28.9 Code : 93461-8 Heart Rate 1 : 64 bpm Height: 6'2" Weight: 225 lbs 08/05/2011 Blood Pressure 1: 142/72 Code : 8480-6 BMI: 29.3 Code : 82041-3 Heart Rate 1 : 80 bpm Height: 6'2" Weight: 228 lbs 07/01/2011 Blood Pressure 1: 136/70 Code : 8480-6 BMI: 29.2 Code : 85642-3 Heart Rate 1 : 68 bpm Height: [...] doing physical therapy for parkinson's disease at [facility] diabetes mellitus Alleviating Factors insulin 01/19/2013 [...] data Encounters Encounter Performer Location Codes Date ([id number]) 00152 EST. PATIENT, LEVEL IV Diagnosis: Parkinson's disease[ICD10: G20] Diagnosis: Atrophy of thyroid (acquired)[ICD10: E03.4] Diagnosis: Slow transit constipation[ICD10: K59.01] Diagnosis: Type 2 diabetes mellitus with hyperglycemia[ICD10: E11.65] Diagnosis: Essential (primary) hypertension[ICD10: I10] Yoli Medley MD, [facility] CPT-4: 13405 05/04/2018 [id number]) 64873 EST. 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 PATIENT, LEVEL IV Diagnosis: Atrophy of thyroid (acquired)[ICD10: E03.4] Diagnosis: Type 2 diabetes mellitus with hyperglycemia[ICD10: E11.65] Diagnosis: Essential (primary) hypertension[ICD10: I10] Diagnosis: Parkinson's disease[ICD10: G20] [facility] CPT- 4: 38512 09/16/2017 [id number]) 55961 EST. PATIENT, LEVEL IV Diagnosis: Essential (primary) hypertension[ICD10: I10] Diagnosis: Type 2 diabetes mellitus with hyperglycemia[ICD10: E11.65] Diagnosis: Atrophy of thyroid (acquired)[ICD10: E03.4] [facility] CPT-4: 82615 07/13/2017 [id number]) 82146 EST. PATIENT, LEVEL IV Diagnosis: Essential (primary) hypertension[ICD10: I10] Diagnosis: Localized edema[ICD10: R60.0] Diagnosis: Atrophy of thyroid (acquired)[ICD10: E03.4] Diagnosis: Type 2 diabetes mellitus without complications[ICD10: E11.9] Yoli Medley MD, [facility] CPT-4: 89436 05/13/2017 88651 EST. PATIENT, LEVEL III Diagnosis: Rash and other nonspecific skin eruption[ICD10: R21] Bonita Medley MD, [facility] CPT-4: 26744 04/28/2017 32361 EST. PATIENT, LEVEL IV Diagnosis: Essential (primary) hypertension[ICD10: I10] Diagnosis: Atrophy of thyroid (acquired)[ICD10: E03.4] Diagnosis: Type 2 diabetes mellitus without complications[ICD10: E11.9] Bonita Medley MD , [facility] CPT-4: 02187 04/15/2017 ([id number]) 56166 EST. PATIENT, LEVEL IV Diagnosis: Type 2 diabetes mellitus with hyperglycemia[ICD10: E11.65] Diagnosis: Essential (primary) hypertension[ICD10: I10] Diagnosis: Hypothyroidism, unspecified[ICD10: E03.9] Ginny Medley MD, [facility] CPT-4: 28431 02/04/2017 ([id number]) 13837 EST. PATIENT, LEVEL III Diagnosis: Essential (primary) hypertension[ICD10: I10] Diagnosis: Hypothyroidism, unspecified[ICD10: E03.9] Ginny Medley MD, [facility] CPT-4: 94683 10/08/2016 [id number]) 96750 EST. PATIENT, LEVEL III Diagnosis: Allergic rhinitis due to pollen[ICD10: J30.1] Diagnosis: Hypothyroidism, unspecified[ICD10: E03.9] Ginny Medley MD, [facility] CPT-4: 83368 09/10/2016 [id number]) 45301 EST. 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 PATIENT, LEVEL IV Diagnosis: Abdominal distension (gaseous)[ICD10: R14.0] Diagnosis: Cough[ICD10: R05] Diagnosis: Acute bronchitis, unspecified[ICD10: J20.9] Diagnosis: Essential (primary) hypertension[ICD10: I10] Ginny Medley MD, [facility] CPT-4: 55783 08/06/2016 ([id number]) 81106 EST. PATIENT, LEVEL III Diagnosis: Cough[ICD10: R05] Diagnosis: Acute upper respiratory infection, unspecified[ICD10: J06.9] Ginny Medley MD, [facility] CPT-4: 55794 07/30/2016 ([id number]) 87983 EST. PATIENT, LEVEL IV Diagnosis: Type 2 diabetes mellitus with hyperglycemia[ICD10: E11.65] Diagnosis: Essential (primary) hypertension[ICD10: I10] Diagnosis: Parkinson's disease[ICD10: G20] Diagnosis: Localized edema[ICD10: R60.0] Ginny Medley MD, [facility] CPT-4: 61784 06/22/2016 ([id number]) 10257 EST. PATIENT, LEVEL IV Diagnosis: Essential (primary) hypertension[ICD10: I10] Diagnosis: Type 2 diabetes mellitus with hyperglycemia[ICD10: E11.65] Diagnosis: Hypo-osmolality and hyponatremia[ICD10: E87.1] Diagnosis: Hesitancy of micturition[ICD10: R39.11] Ginny Medley MD, [facility] CPT-4: 40685 04/27/2016 ([id number]) 63320 EST. PATIENT, LEVEL III Diagnosis: Essential (primary) hypertension[ICD10: I10] Diagnosis: Localized edema[ICD10: R60.0] Ginny Medley MD, [facility] CPT-4: 98168 03/23/2016 ([id number]) 91142 EST. PATIENT, LEVEL IV Diagnosis: Low back pain[ICD10: M54.5] Diagnosis: Hypo-osmolality and hyponatremia[ICD10: E87.1] Diagnosis: Essential (primary) hypertension[ICD10: I10] Diagnosis: Localized edema[ICD10: R60.0] Diagnosis: Type 2 diabetes mellitus with hyperglycemia[ICD10: E11.65] Ginny Medley MD, [facility] CPT-4: 87456 01/20/2016 ([id number]) 69408 EST. PATIENT, LEVEL III Diagnosis: Type 2 diabetes mellitus with hyperglycemia[ICD10: E11.65] Diagnosis: Essential (primary) hypertension[ICD10: I10] Diagnosis: Hypo-osmolality and hyponatremia[ICD10: E87.1] Ginny Medley MD, [facility] CPT-4: 97774 12/16/2015 ([id number]) 62573 EST. PATIENT, LEVEL III Diagnosis: Essential (primary) hypertension[ICD10: I10] Diagnosis: Hypo-osmolality and hyponatremia[ICD10: E87.1] Ginny Medley MD, [facility] CPT-4: 53979 12/09/2015 ([id number]) 00551 EST. PATIENT, LEVEL IV Diagnosis: Essential (primary) hypertension[ICD10: I10] Diagnosis: Type 2 diabetes mellitus with hyperglycemia[ICD10: E11.65] Diagnosis: Parkinson's disease[ICD10: G20] Ginny Medley MD, [facility] CPT-4: 51848 11/25/2015 46457 EST. PATIENT, LEVEL III Diagnosis: Localized edema[ICD10: R60.0] Diagnosis: Essential (primary) hypertension[ICD10: I10] Bonita Medley MD, [facility] CPT-4: 89491 09/02/2015 ([id number]) 30077 EST. PATIENT, LEVEL III Diagnosis: Localized edema[ICD10: R60.0] Ginny Medley MD, [facility] CPT-4: 57551 08/05/2015 ([id number]) 04218 EST. PATIENT, LEVEL III Diagnosis: Localized edema[ICD10: R60.0] Diagnosis: Unspecified open wound, right ankle, initial encounter[ICD10: S91.001A] Ginny Medley MD, [facility] CPT-4: 94307 ([id number]) 85501 EST. PATIENT, LEVEL IV Diagnosis: Essential (primary) hypertension[ICD10: I10] Diagnosis: Localized edema[ICD10: R60.0] Diagnosis: Low back pain[ICD10: M54.5] Diagnosis: Type 2 diabetes mellitus with hyperglycemia[ICD10: E11.65] Ginny Medley MD, [facility] CPT-4: 62991 06/03/2015 ([id number]) Miscellaneous no charge Diagnosis: Encounter for other specified aftercare[ICD10: Z51.89] Yoli Medley MD [facility] CPT-4: 49388 03/20/2015 59249 EST. PATIENT, LEVEL IV Diagnosis: Cutaneous abscess of chest wall[ICD10: L02.213] Yoli Medley MD [facility] CPT-4: 38051 03/19/2015 ([id number]) 55339 EST. PATIENT, LEVEL III Diagnosis: Edema, unspecified[ICD10: R60.9] Yoli Medley MD [facility] CPT-4: 70894 03/04/2015 97328 EST. PATIENT, LEVEL III Diagnosis: Edema, unspecified[ICD10: R60.9] Diagnosis: Unspecified open wound, right ankle, initial encounter[ICD10: S91.001A] Yoli Medley MD, [facility] CPT-4: 28182 07/2014 ([id number]) 29089 EST. PATIENT, LEVEL III Diagnosis: Edema, unspecified[ICD10: R60.9] Yoli Medley MD [facility] CPT-4: 81473 02/11/2015 ([id number]) 59378 EST. PATIENT, LEVEL IV Diagnosis: Type 2 diabetes mellitus with hyperglycemia[ICD10: E11.65] Diagnosis: Essential (primary) hypertension[ICD10: I10] Diagnosis: Edema, unspecified[ICD10: R60.9] Yoli Medley MD, [facility] CPT-4: 10295 01/28/2015 ([id number]) 77504 EST. PATIENT, LEVEL IV Diagnosis: DIABETES TYPE II[ICD9: 250.00] Diagnosis: ESSENTIAL HYPERTENSION[ICD9: 401.9] Diagnosis: Parkinsons disease[ICD9: 332.0] Yoli Medley MD, [facility] CPT- 4: 30629 10/01/2014 ([id number]) 14575 EST. PATIENT, LEVEL IV Diagnosis: ESSENTIAL HYPERTENSION[ICD9: 401.9] Diagnosis: DIABETES TYPE II[ICD9: 250.00] Diagnosis: Parkinsons disease[ICD9: 332.0] Yoli Medley MD [facility] CPT- 4: 47178 05/30/2014 ([id number]) 67584 EST. PATIENT, LEVEL IV Diagnosis: DIABETES TYPE II[ICD9: 250.00] Diagnosis: ESSENTIAL HYPERTENSION[ICD9: 401.9] Diagnosis: Back pain[ICD9: 724.5] Yoli Medley MD [facility] CPT-4: 45863 02/28/2014 ([id number]) 95271 EST. PATIENT, LEVEL III Diagnosis: ESOPHAGEAL REFLUX[ICD9: 530.81] Diagnosis: Esophageal ulcer[ICD9: 530.20] Yoli Medley MD [facility] CPT- 4: 62861 01/23/2014 ([id number]) 25247 EST. PATIENT, LEVEL IV Diagnosis: ESOPHAGEAL REFLUX[ICD9: 530.81] Diagnosis: ESSENTIAL HYPERTENSION[ICD9: 401.9] Yoli Medley MD [facility] CPT-4: 26774 12/26/2013 ([id number]) 31319 EST. PATIENT, LEVEL IV Diagnosis: Diabetes type 2, uncontrolled[ICD9: 250.02] Diagnosis: ESSENTIAL HYPERTENSION[ICD9: 401.9] Diagnosis: Back pain[ICD9: 724.5] Diagnosis: ELEVATED PSA[ICD9: 790.93] Yoli Medley MD [facility] CPT- 4: 50939 10/17/2013 ([id number]) 06886 EST. PATIENT, LEVEL IV Diagnosis: DIABETES TYPE II[SNOMED: 280700565] Diagnosis: ESSENTIAL HYPERTENSION[SNOMED: 27377365] Diagnosis: Sleep apnea[ICD9: 780.57] Yoli Medley MD [facility] CPT-4: 74171 07/24/2013 ([id number]) 98148 EST. PATIENT, LEVEL IV Diagnosis: DIABETES TYPE II[SNOMED: 929519043] Diagnosis: ESSENTIAL HYPERTENSION[SNOMED: 18351354] Diagnosis: HYPERLIPIDEMIA[ICD9: 272.4] Yoli Medley MD [facility] CPT- 4: 66983 04/24/2013 ([id number]) 44394 EST. PATIENT, LEVEL III Diagnosis: DIABETES TYPE II[SNOMED: 894114048] Yoli Medley MD [facility] CPT-4: 79205 03/20/2013 ([id number]) 85739 EST. PATIENT, LEVEL III Diagnosis: DM W/O COMPLICATION TYPE II, UNCONTROLLED[SNOMED: 01609055] Yoli Medley MD [facility] CPT-4: 06052 01/19/2013 ([id number]) 94619 EST. PATIENT, LEVEL III Diagnosis: DM W/O COMPLICATION TYPE II, UNCONTROLLED[SNOMED: 04788732] Yoli Medley MD [facility] CPT-4: 18253 12/21/2012 ([id number]) 89852 EST. PATIENT, LEVEL IV Diagnosis: DM W/O COMPLICATION TYPE II, UNCONTROLLED[SNOMED: 50475910] Diagnosis: Parkinsons disease[ICD9: 332.0] Diagnosis: Back pain[ICD9: 724.5] Diagnosis: Gait instability[ICD9: 781.2] Yoli Medley MD [facility] CPT- 4: 10688 11/30/2012 ([id number]) 51323 EST. PATIENT, LEVEL IV Diagnosis: ESSENTIAL HYPERTENSION[SNOMED: 02090473] Diagnosis: Abdominal pain[ICD9: 789.00] Diagnosis: DIABETES TYPE II[SNOMED: 285581643] Yoli Medley MD [facility] CPT-4: 34780 05/30/2012 ([id number]) 02655 EST. PATIENT, LEVEL III Diagnosis: Gastroenteritis[ICD9: 558.9] Ginny Medley MD, [facility] CPT-4: 89914 04/26/2012 ([id number]) 02653 EST. PATIENT, LEVEL IV Diagnosis: ESSENTIAL HYPERTENSION[SNOMED: 91045105] Diagnosis: DIABETES TYPE II[SNOMED: 946388431] Diagnosis: Claw toe[ICD9: 735.5] Yoli Medley MD [facility] CPT-4: 68865 04/14/2012 ([id number]) 94504 EST. PATIENT, LEVEL III Diagnosis: Rash[ICD9: 782.1] Diagnosis: DERMATOPHYTOSIS OF FOOT[ICD9: 110.4] Ginny Medley MD, [facility] CPT-4: 83639 02/22/2012 [id number]) 38227 EST. PATIENT, LEVEL IV Diagnosis: DM W/O COMPLICATION TYPE II, UNCONTROLLED[SNOMED: 43322040] Diagnosis: ESSENTIAL HYPERTENSION[SNOMED: 10167732] Diagnosis: Constipation - functional[ICD9: 564.09] Diagnosis: Encounter for long-term (current) use of other high-risk medications[ ICD9: V58.69] Yoli Medley MD, [facility] CPT-4: 30419 01/13/2012 ([id number] 51103 EST. PATIENT, LEVEL IV Diagnosis: ESSENTIAL HYPERTENSION[SNOMED: 46906308] Diagnosis: DIABETES TYPE II[SNOMED: 994506027] oYli Medley MD, [facility] CPT-4: 05819 09/02/2011 04176 EST. PATIENT, LEVEL IV Diagnosis: LUMBAGO[ICD9: 724.2] Diagnosis: Sacroiliitis[ICD9: 720.2] Yoli Medley MD, [facility] CPT-4: 20264 08/05/2011 ([id number] 20025 EST. PATIENT, LEVEL IV Diagnosis: ESSENTIAL HYPERTENSION[SNOMED: 40666730] Diagnosis: DIABETES TYPE II[SNOMED: 625219283] Diagnosis: Breast mass in male[ICD9: 611.72] Diagnosis: Chronic hyponatremia[ICD9: 276.1] Yoli Medley MD, [facility] CPT-4: 90972 07/01/2011 Plan of Care Planned Activity Notes [...] persistent constipation. 05/04/2018 Appointment: Yoli Medley WPtel: [facility] (15 min) Moderate 05/04/2018 Patient Education: Patient [...] today 01/11/2018 Appointment: Yoli Medley WPtel: [phone] [facility] (15 min) Moderate 01/11/2018 Patient Education: Patient Medication Summary Completed 01/11/2018 Appointment: Bonita Villa WPtel: [phone] [facility] [place] [address] - Annual Wellness Visit 10/18/2017 Visit Plan: [...] treatment. 09/16/2017 Appointment: Yoli Medley WPtel: [phone] [facility] (15 min) Moderate 09/16/2017 Patient Education: Patient [...] control. 07/13/2017 Appointment: Yoli Medley WPtel: [phone] [facility] (15 min) Moderate 07/13/2017 Patient Education: Patient [...] less controlled. 05/13/2017 Appointment: [phone] (15 min) Moderate 05/13/2017 Patient Education: Patient Medication Summary Completed 05/13/2017 Visit Plan: Rash - The patient was instructed to use the ointment as per RX. The patient is to call for any change in symptoms, increase in size of the lesion, increase in pain, worsening redness, warmth, discharge. 04/28/2017 Appointment: Bonita Villatel: [phone] [facility] (15 min) Moderate 04/28/2017 Patient Education: Patient Medication Summary Completed 04/28/2017 Appointment: Bonita Vlila WPtel: [phone] [facility] (30 min) Complex 04/16/2017 Visit Plan: [...] previous levels of control. 04/15/2017 Appointment: Bonita Villatel: [facility] (30 min) Complex 04/15/2017 Patient Education: [...] of control. 02/04/2017 Appointment: Ginny Pearl WPtel: [facility]5 [facility] [place] [address] (30 min) Complex 02/04/2017 Patient Education: Patient Medication Summary Completed 02/04/2017 Patient Education: Obesity Completed 02/04/2017 Patient Education: Patient Medication Summary Completed 02/01/2017 Appointment: Ginny Pearl WPtel: [facility]5 [facility] [place] [address] (30 min) Complex 01/12/2017 Appointment: Ginny Pearl WPtel: [address] [place], [place] [id number] [place] [address] (30 min) Complex 01/07/2017 Visit Plan: Medicare [...] care surrogate. 10/12/2016 Appointment: Bonita Villa [facility]el[phone] [facility] - Annual Wellness Visit 10/12/2016 [...] 3 months. 10/08/2016 Appointment: Ginny Pearl WPtel: [phone] (30 min) Complex 10/08/2016 Patient Education: Patient Medication Summary Completed 10/08/2016 Patient Education: Hypertension Completed 10/08/2016 Visit Plan: Allergies-continue daily anti histamine-call if symptoms do not improve or if any worse S/P total thyroidectomy-now on levothyroxine-repeat labs in 1 month 09/10/2016 Appointment: Ginny Pearl WPtel: [phone] (30 min) Complex 09/10/2016 Patient Education: Patient [...] [place] to do total thyroidectomy on Wednesday Jryhqexmkk-xryxi-mspsek-due to thyroid nodules-will monitor symptoms for now [...] [place] to do total thyroidectomy on Wednesday Bkutmdryfm-fkjsk-dcwgzy-due to thyroid nodules-will monitor symptoms for now 08/24/2016 Appointment: Ginny Pearl WPtel: [phone] (30 min) Complex 08/24/2016 Patient Education: Patient Medication Summary Completed 08/24/2016 Visit Plan: Abdominal kjezetgh-qoomynxtuhdi-TAE today Bronchitis - acute case of bronchitis [...] at home 08/06/2016 Appointment: Ginny Pearl WPtel: [phone] [place] (10 min) Simple 08/06/2016 Patient Education: Patient Medication Summary Completed 08/06/2016 Visit Plan: URI - Pt advised to increase fluids, vitamin C. Discussed natural and expected course of this diagnosis and need to alert me if symptoms do not follow expected course, or if any worse. RX sent to patient' s pharmacy. 07/30/2016 Appointment: Ginny Pearl WPtel: [phone] (15 min) Moderate 07/30/2016 Patient Education: [...] symptoms worsen. 06/22/2016 Appointment: Ginny Pearl WPtel: [address] [place] [phone] (30 min) [facility] 06/22/2016 Patient Education: Patient Medication Summary Completed [...] sodium-check labs Urinary hesitancy-UA negative 04/27/2016 Appointment: Ginyn Pearltel: [phone] [phone] (30 min) Complex 04/27/2016 Patient Education: [...] edema. 03/23/2016 Appointment: G[facility] Pearl [facility]Ptel[phone] (30 min) Complex 03/23/2016 Patient Education: Patient [...] in the office. Refer for PT at [facility]- Low back pain, generalized weakness, Parkinsons Low bjbwco-moaxdos-yx need for increase sodium intake Hypertension - [...] A1C 01/20/2016 Appointment: Ginny Pearl WPtel: [phone] [phone] (30 min) Complex 01/20/2016 Patient Education: Patient Medication Summary Completed 01/20/2016 Patient Education: Obesity Completed 01/20/2016 Care Plan: Comp Metabolic Pending 01/20/2016 Care Plan: Cbc With Differential Pending 01/20/2016 Care Plan: %Hba1C [facility] : [address]-3 Pending 01/20/2016 Visit Plan: Diabetes Mellitus - [...] labs today 12/09/2015 Appointment: Ginny Pearl WPtel: [address] [place] [phone] (30 min) [facility] 12/09/2015 Patient Education: Patient Medication Summary Completed [...] symptoms worsen. 11/25/2015 Appointment: Ginny Pearl WPtel: [phone] (30 min) Complex 11/25/2015 Patient Education: Patient [...] 03/26/2015 Care Plan: Referral Order SNOMED-CT : [id number] Ordered 03/26/2015 Patient Education: Patient Medication Summary [...] 02/20/2015 Care Plan: Referral Order SNOMED-CT : [id number] Ordered 02/20/2015 Visit Plan: Hypertension - uncontrolled [...] SPIRONOLACTONE 02/11/2015 App[facility]ment[phone] ([facility] min) Moderate 02/11/2015 Patient Education: [...] pressure. 01/28/2015 Appointment: [phone] ([facility] min) Moderate 01/28/2015 Patient [...] [phone] Follow up 10/01/2014 Patient Education: [...] [phone] Follow up 05/30/2014 Patient Education: [...] January 29. 01/23/2014 Appointment: Yoli Medley WPtel: [facility] Follow up 01/23/2014 Patient Education: Patient [...] at home. 12/26/2013 Appointment: Yoli Medley WPtel: [facility] Follow up 12/26/2013 Patient Education: Patient Medication Summary Completed 12/26/2013 Patient Education: Hypertension Completed 12/26/2013 Visit Plan: Wound Instructions - Pt was instruced to keep the wound clean, wash with antibacterial soap, use triple antibiotic ointment, call if redness, pustular drainage, or any other acute conerns. 10/24/2013 App[facility]ment: [phone] [facility] Procedure 10/24/2013 Patient Education: Patient Medication [...] [phone] Follow up 10/17/2013 Patient Education: Patient [...] like to have his Oxygen company - [employer] [place] patient - help with arranging oxygen when he is in [facility]. 07/24/2013 Appointment: [phone] Follow up 07/24/2013 Patient Education: Patient Medication Summary Completed 07/24/2013 Patient Education: Hypertension Completed 07/24/2013 [facility]ment: [facility] Pearl [phone] [place] Lab Draw 05/05/2013 Patient Education: Patient Medication Summary Completed 05/05/2013 Patient Education: Hypertension Completed 05/05/2013 Appointment: [phone] Follow up 05/01/2013 Visit Plan: [...] UNITS DAILY. 01/19/2013 Appointment: Yoli Medley WPtel: [phone] [facility] Follow up 01/19/2013 Patient Education: Patient Medication Summary Completed 01/19/2013 Visit Plan: MM-vlplteek-bhfefmvdlti today in the office- wound Instructions - Pt was instruced to keep the wound clean, wash with antibacterial soap, use triple antibiotic ointment, call if redness, pustular drainage, or any other acute conerns. 12/26/2012 Appointment: [facility] Pearl [phone] [place] [facility] 12/26/2012 Patient Education: Patient Medication [...] blood glucose. 12/21/2012 Appointment: Yoli Medley WPtel: [phone] [facility] Follow up 12/21/2012 Patient Education: Patient Medication Summary Completed 12/21/2012 Visit Plan: Parkinsons disease - rx for sinemet 25/100mg 1/ 2 pill in morning and 1/2 pill in evening, pt to let us know if the symptoms improve. Referral to Miguel at [facility] for gait instability. Diabetes Mellitus - [...] patient. 11/30/2012 Appointment: [phone] Follow [facility] 11/30/2012 Patient Education: [...] previously. 05/30/2012 Appointment: [phone] 6 [facility] f/u Follow up [...] to seek support for his arches via fairing worker eval and perhaps arch supports to be custom made or custom fitted. 04/14/2012 Appointment: [phone] Follow [facility] 04/14/2012 Patient Education: Patient Medication Summary Completed 04/14/2012 Patient Education: Hypertension Completed 04/14/2012 Visit Plan: Rash- Discussed natural and expected course of this diagnosis and need to alert me if symtpoms do not follow expected course, or if any worse. RX sent to patient's pharmacy. 02/22/2012 Appointment: [facility] Pearl [phone] Other 02/22/2012 Patient Education: Patient Medication Summary [...] this regimen. 01/13/2012 Appointment: Yoli Medley WPtel: [facility] [facility] Patient Preventative visit 01/13/2012 Patient Education: Patient [...] controlled. 09/02/2011 Appointment: Yoli Medley WPtel: [phone] [facility] [facility] 09/02/2011 Patient Education: Patient Medication Summary Completed 09/02/2011 Patient Education: High Blood Pressure: Essential Hypertension Completed 2011 Appointment: Ginny eParl WPtel: [facility] [place] Lab Draw 08/06/2011 Patient Education: Patient [...] [phone] [facility] 08/05/2011 Patient Education: Patient Medication Summary Completed [...] blood pressure readings at home. 07/01/2011 Appointment: Galindo Yoli WPtel: [phone] [facility] Other 07/01/2011 Patient Education: Patient Medication Summary Completed 07/01/2011 Patient Education: High Blood Pressure: Essential Hypertension Completed 2011 Appointment: GalindoYoli WPtel: [phone] [facility] Lab Draw 06/25/2011 Patient Education: Patient Medication Summary Completed 06/25/2011 Patient Education: High Blood Pressure: Essential Hypertension Completed 2011 Referral: [facility] WPtel: 1 [facility] [place] Referral Initiated Referral: Dangelo Ford Referral Initiated Instructions Comment . Chronic hyponatremia - Increase fluids - [...] Reason: Patient Declined. . Diabetes Mellitus - controlled - per [...] CHECK LABS STOP EXTRA SODIUM REFER TO [facility] DX PARKINSONS, BACK PAIN, WEAKNESS . Low back pain- the patient was instructed in appropriate posture, need for weight loss to alleviate abdominal obesity that is worsening the patient's back pain. The patient is to call the office if the pain is worsening or does not improve. Kenalog injection today in the office. Refer for PT at [facility] Low back pain, generalized weakness, Parkinsons Low nwvlhv-zhpzhzb-ca need for increase sodium intake Hypertension - [...] Ford to do total thyroidectomy on Wednesday Jgipnoyygf-gjteh-gytgcu-due to thyroid nodules-will monitor symptoms for now [...] Ford to do total thyroidectomy on Wednesday Lmzxqbxxpb-bragy-xuycze-due to thyroid nodules-will monitor symptoms for now [...] change in blood pressure readings at home. Segohncmazdsyq-tcuxfaxz-bojlhrd medication increased by Dr Ford and wants [...] previous levels of control. . Hypertension - well controlled - continue [...] taking the new diuretic - SPIRONOLACTONE . Parkinson's Disease - pt has diagnosis [...] S bid if needed for persistent constipation. TRY HYDROCODONE FOR PAIN INSTEAD OF THE [...] Lab work- CBC, CMP, BNP . Abdominal ffgxsprz-lgdhnvmijqew-HUQ today Bronchitis - acute case of bronchitis [...] wraps to lower legs Appointment with [facility]- July 29 at 1pm. . [...] further attempt to reduce peripheral edema. . Hypertension - well controlled - continue [...] like to have his Oxygen company - [employer] patient - help with arranging oxygen when he is in [facility]. . Parkinsons disease - rx for sinemet 25/100mg 1/2 pill in morning and 1/2 pill in evening, pt to let us know if the symptoms improve. Referral to Miguel at [facility] for gait instability. Diabetes Mellitus - [...] based on previous levels of control. . BE-riggpjdl-ykvloutdalw today in the office-wound Instructions - Pt [...] to seek support for his arches via fairing worker eval and perhaps arch supports to be [...] readings are starting to become less controlled. Will start Zaroxolyn (water pill), will give [...]
[2018-07-25] MEDS ORDERED: DIAZEPAM 2 MG (VALIUM) TAB PO ONE (08:15)
--- OUTSIDE RECORDS SUMMARY | 2018-07-25 08:20 | XMS REPORT | CCD ---
Author Author [facility] Organization [facility] Address [address] [place] [address] Phone Care Team Providers Care Ways Operator Name Role Phone PP Unavailable CCM Unavailable Summary Purpose Interface Exchange Insurance Providers Payer name Policy type / Coverage type Covered democrat ID Effective Begin Date Effective End Date WPS Medicare Part B Medicare Part B [id number] 2018 Unknown [facility] Gennius INSUR Medicare Part B [id number] Unknown [place] [facility] Medicare Part B [id number] 2018 Unknown Family history Runs in the family Diagnosis Age At Onset Diabetes Unknown Mother Diagnosis Age At Onset Diabetes Unknown Hypertension Unknown Alzheimer's Disease Unknown Stroke Unknown Father Diagnosis Age At Onset No Family Disease Entered N/A Grandmother Diagnosis Age At Onset Alzheimer's Disease Unknown Social History Social History Element Codes Description Effective Dates Number of children Unknown 4 2 in [place], 2 in [place] 02/17/[address]: 3952609 Former smoker Quit in 195202/17/2018 Alcohol history Unknown occasionally drinks alcohol 02/17/2018 Frequency of drinks SNOMED CT: 038901643 Drinks rarely 02/17/2018 Employment Unknown 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 Unknown Has never used illegal drugs 07/02/2011 Marital status Unknown 07/01/2011 Living arrangements Unknown House 07/01/2011 Allergies, Adverse Reactions, Alerts Substance Reaction Codes Entered Date Inactivated Date Status feldene rash RxNorm: 8356 02/17/2018 No Inactive Date Active levaquin Unknown 02/17/2018 No Inactive Date Active bactrim rash RxNorm: 116902 02/17/2018 No Inactive Date Active CEPHALOSPORINS Unknown [...] Start Date Stop Date Status Fill Instructions Senna-S 8.6 mg-50 mg tablet RxNorm: 588338 1 Tablet(s) PO daily and may dose up to twice a day if needed for constipation 05/04/2018 01/28/2019 Active Contour Next Test Strips RxNorm: 1 test Miscellaneous daily 07/27/2019 Active metformin ER 500 mg tablet,extended release 24 hr RxNorm: 526999 Tablet(s) TAKE ONE TABLET BY MOUTH TWICE DAILY 05/02/2018 04/26/2019 Active levothyroxine 175 mcg tablet RxNorm: 806556 Tablet(s) TAKE 1 TABLET BY MOUTH ONCE DAILY WED-WED, 1/2 TAB ON WEDNESDAY AND Wednesday03/02/2018 No Stop Date Active potassium chloride ER 10 mEq tablet,extended release(part/ cryst) RxNorm: 8663429 2 Tablet(s) PO daily x 3 days, then 1 pill three times a week when taking the lasix 02/01/2018 05/31/2018 Active finasteride 5 mg tablet RxNorm: 386220 1 Tablet(s) PO daily 07/30/2018 Active [SAVINGS FOR UNINSURED PATIENTS -- BIN:[id number], PCN: ASPROD1, Group: [id number], ID# [id number], Process claim through Thumb, for questions: . THIS IS NOT INSURANCE.] levothyroxine 175 mcg tablet RxNorm: 394863 TAKE 1 TABLET BY MOUTH ONCE DAILY 02/01/2018 03/01/2018 Inactive January Silver U-100 Insulin 100 unit/mL (3 mL) subcutaneous RxNorm: 5432894 24 Unit(s) SQ daily 12/29/201712/23 Active Lasix 20 mg tablet RxNorm: 677962 TAKE 1 TABLET ONCE DAILY FOR 1 WEEK AND THEN 1 TABLET EVERY 3 DAYS THEREAFTER 12/06/2017 09/01/2018 Active clotrimazole 1 % topical cream RxNorm: 508613 1 Application TOP BID to feet 09/16/2017 No Stop Date Active levothyroxine 175 mcg tablet RxNorm: 931988 TAKE ONE TABLET BY MOUTH ONCE DAILY 08/03/2017 01/31/2018 Inactive glipizide 10 mg tablet RxNorm: 376824 1 Tablet(s) PO BID 201711/03/2018 Active lisinopril 20 mg tablet RxNorm: 590908 Tablet(s) TAKE 1 TABLET BY MOUTH TWICE DAILY 05/13/2017 05/07/2018 Active Sinemet 25 mg-100 mg tablet RxNorm: 245381 Tablet(s) TAKE ONE TABLET BY MOUTH TWICE DAILY IN THE MORNING AND AT SUPPER 05/13/2017 05/07/2018 Active metformin ER 500 mg tablet,extended release 24 hr RxNorm: 981284 Tablet(s) TAKE ONE TABLET BY MOUTH TWICE DAILY 05/13/2017 05/01/2018 Inactive Basaglar KwikPen U-100 Insulin 100 unit/mL (3 mL) subcutaneous RxNorm: 2950618 24 Unit(s) SQ daily 05/13/201712/28 Inactive finasteride 5 mg tablet RxNorm: 464690 1 Tablet(s) PO daily 11/08/2017 Inactive [SAVINGS FOR UNINSURED PATIENTS -- BIN:854140, PCN: ASPROD1, Group: [id number] , ID# [id number], Process claim through Thumb, for questions: . THIS IS NOT INSURANCE.] levothyroxine 175 mcg tablet RxNorm: 562240 1 Tablet(s) PO daily 05/13/2017 02/16/2018 Inactive Lasix 20 mg tablet RxNorm: 001521 Tablet(s) TAKE 1 TABLET BY MOUTH ONCE DAILY FOR 1 WEEK AND THEN TAKE 1 TABLET BY MOUTH EVERY 3 DAYS THEREAFTER 05/13/2017 07/27/2017 Inactive Basaglar KwikPen 100 unit/mL (3 mL) subcutaneous RxNorm: 5807898 24 Unit(s) SQ daily 05/07/2017 05/12/2017 Inactive Lasix 20 mg tablet RxNorm: 176765 2 Tablet(s) PO daily x 3 days, then 1 pill three times a week thereafter 04/28/2017 No Stop Date Active triamcinolone acetonide 0.025 % topical cream RxNorm: 2604933 1 Application TOP BID 04/28/2017 02/16/2018 Inactive clotrimazole 1 % topical cream RxNorm: 283152 1 Application TOP BID 04/28/2017 09/15/2017 Inactive potassium chloride ER 10 mEq tablet,extended release(part/ cryst) RxNorm: 5625585 2 Tablet(s) PO daily x 3 days, then 1 pill three times a week when taking the lasix 04/28/2017 08/25/2017 Inactive Lasix 20 mg tablet RxNorm: 883766 Tablet(s) TAKE 1 TABLET BY MOUTH ONCE DAILY FOR 1 WEEK AND THEN TAKE 1 TABLET BY MOUTH EVERY 3 DAYS THEREAFTER 04/22/2017 05/12/2017 Inactive Lantus Solostar 100 unit/mL (3 mL) subcutaneous insulin pen RxNorm: 390848 24 Unit(s) SQ daily INJECT 24 UNITS DAILY OR DIRECTED 201605/06/2017 Inactive 1 box of 5 pens Basaglar KwikPen 100 unit/mL (3 mL) subcutaneous RxNorm: 9658122 24 Unit(s) SQ daily 03/02/2017 05/06/2017 Inactive Basaglar KwikPen 100 unit/mL (3 mL) subcutaneous RxNorm: 1519103 24 Unit(s) SQ daily 03/02/2017 03/01/2017 Inactive levothyroxine 175 mcg tablet RxNorm: 557400 1 Tablet(s) PO daily 02/02/2017 05/12/2017 Inactive Sinemet 25 mg-100 mg tablet RxNorm: 985868 TAKE ONE TABLET BY MOUTH TWICE DAILY IN THE MORNING AND AT SUPPER 12/30/2016 Inactive metformin ER 500 mg tablet,extended release 24 hr RxNorm: 626601 Tablet(s) TAKE ONE TABLET BY MOUTH TWICE DAILY 11/10/2016 05/12/2017 Inactive lisinopril 20 mg tablet RxNorm: 023223 Tablet(s) TAKE 1 TABLET BY MOUTH TWICE DAILY 11/10/2016 05/12/2017 Inactive levothyroxine 150 mcg tablet RxNorm: 908501 1 Tablet(s) PO daily 11/05/2016 02/01/2017 Inactive PLEASE LET PATIENT KNOW WE ARE GIVING HIM 150MCG INSTEAD OF 100MCG SO HE JUST TAKES 1 TAB DAILY. THANKS! Lantus Solostar 100 unit/mL (3 mL) subcutaneous insulin pen RxNorm: 787854 24 Unit(s) SQ daily INJECT 24 UNITS DAILY OR DIRECTED 201603/01/2017 Inactive 1 box of 5 pens Lantus Solostar 100 unit/mL (3 mL) subcutaneous insulin pen RxNorm: 516334 24 Unit(s) SQ daily INJECT 24 UNITS DAILY OR DIRECTED 201610/06/2016 Inactive please call patient with the [facility] levothyroxine 100 mcg tablet RxNorm: 162270 1.5 Tablet(s) PO daily 10/05/2016 11/04/2016 Inactive metformin ER 500 mg tablet,extended release 24 hr RxNorm: 855083 Tablet(s) TAKE ONE TABLET BY MOUTH TWICE DAILY 09/29/2016 11/09/2016 Inactive prednisone 20 mg tablet RxNorm: 128719 1 Tablet(s) PO BID 08/0608/10/2016 Inactive Kenalog 40 mg/mL suspension for injection RxNorm: 4061480 1 Milliliter(s) Inj 07/30/2016 07/30/2016 Inactive doxycycline hyclate 100 mg tablet RxNorm: 278312 1 Tablet(s) PO BID 07/30/2016 08/05/2016 Inactive glipizide 10 mg tablet RxNorm: 272257 1 Tablet(s) PO BID 201605/12/2017 Inactive Sinemet 25 mg-100 mg tablet RxNorm: 534460 TABLET(S) TAKE 1 TABLET BY MOUTH TWICE A DAY IN THE MORNING AND AT SUPPER 05/11/2016 11/06/2016 Inactive Patient requests 90 days supply metformin ER 500 mg tablet,extended release 24 hr RxNorm: 120707 TAKE ONE TABLET BY MOUTH TWICE DAILY 05/04/20162016 Inactive lisinopril 20 mg tablet RxNorm: 454765 TAKE 1 TABLET BY MOUTH TWICE DAILY 04/14/2016 11/09/2016 Inactive Sinemet 25 mg-100 mg tablet RxNorm: 676030 1 Tablet(s) PO BID TAKE 1 TABLET BY MOUTH TWICE A DAY IN THE MORNING AND AT SUPPER 03/23/2016 02/16/2018 Inactive Lasix 20 mg tablet RxNorm: 499227 Tablet(s) TAKE 1 TABLET BY MOUTH ONCE DAILY FOR 1 WEEK AND THEN TAKE 1 TABLET BY MOUTH EVERY 3 DAYS THEREAFTER 03/23/2016 06/06/2016 Inactive Lantus Solostar 100 unit/mL (3 mL) subcutaneous insulin pen RxNorm: 819279 24 Unit(s) SQ daily INJECT 24 UNITS DAILY OR DIRECTED 201510/05/2016 Inactive please call patient with the [facility] hydrocodone 5 mg-acetaminophen 325 mg tablet RxNorm: 763877 1-2 Tablet(s) PO Q6- 8H 01/21/2016 02/16/2018 Inactive Kenalog 40 mg/mL suspension for injection RxNorm: 6258414 1 Milliliter(s) Inj 01/20/2016 01/20/2016 Inactive Sinemet 25 mg-100 mg tablet RxNorm: 585240 Tablet(s) TAKE 1 TABLET BY MOUTH TWICE A DAY IN THE MORNING AND AT SUPPER 11/29/2015 03/22/2016 Inactive Lantus Solostar 100 unit/mL (3 mL) subcutaneous insulin pen RxNorm: 662257 20 Unit(s) SQ daily INJECT 20 UNITS DAILY OR DIRECTED 201501/20/2016 Inactive please call patient with the [facility] Sinemet 25 mg-100 mg tablet RxNorm: 452608 Tablet(s) TAKE 1 TABLET BY MOUTH TWICE A DAY IN THE MORNING AND AT SUPPER 11/22/2015 11/28/2015 Inactive Lantus Solostar 100 unit/mL (3 mL) subcutaneous insulin pen RxNorm: 478095 Unit( s) INJECT 20 UNITS DAILY OR DIRECTED 11/22/2015 11/24/2015 Inactive Lantus Solostar 100 unit/mL (3 mL) subcutaneous insulin pen RxNorm: 957787 INJECT 20 UNITS DAILY OR DIRECTED 09/27/2015 11/21/2015 Inactive Lasix 20 mg tablet RxNorm: TAKE 1 TABLET BY MOUTH ONCE DAILY FOR 1 WEEK AND THEN TAKE 1 TABLET BY MOUTH EVERY 3 DAYS THEREAFTER 09/2512/10/2015 Inactive Lasix 20 mg tablet RxNorm: 645593 1 Tablet(s) PO daily 201509/25/2015 Inactive glipizide 10 mg tablet RxNorm: 864236 1 Tablet(s) BID TAKE 1 TABLET BY MOUTH DAILY. 06/25/2015 06/28/2016 Inactive metformin ER 500 mg tablet,extended release 24 hr RxNorm: 503214 1 Tablet(s) PO BID 04/01/2015 05/05/2016 Inactive lisinopril 20 mg tablet RxNorm: 647244 Tablet(s) TAKE 1 TABLET BY MOUTH TWICE DAILY. 03/25/2015 07/22/2015 Inactive metformin ER 500 mg tablet,extended release 24 hr RxNorm: 419428 1 Tablet(s) PO BID 03/25/2015 03/31/2015 Inactive doxycycline hyclate 100 mg capsule RxNorm: 8582432 1 Capsule(s) PO BID 03/19/2015 04/01/2015 Inactive Sinemet 25 mg-100 mg tablet RxNorm: 527999 TAKE 1 TABLET BY MOUTH TWICE A DAY IN THE MORNING AND AT SUPPER 03/05/201511/20 Inactive doxycycline hyclate 100 mg capsule RxNorm: 6687265 1 Capsule(s) PO BID 02/20/2015 02/26/2015 Inactive metolazone 5 mg tablet RxNorm: 200640 1 Tablet(s) PO daily 07/201403/21/2015 Inactive spironolactone 50 mg tablet RxNorm: 291977 1 Tablet(s) PO daily 02/11/2015 01/02/2016 Inactive Efudex 5 % topical cream RxNorm: 344936 1 TOP BID 01/28/2015 02/10/2015 Inactive potassium chloride ER 10 mEq tablet,extended release(part/ cryst) RxNorm: 0370649 1 Tablet(s) PO daily x 1week then three times weekly with the lasix. 01/28/2015 05/27/2015 Inactive Lasix 20 mg tablet RxNorm: 033018 1 Tablet(s) PO daily x 1 week, then every three days thereafter 01/28/20152015 Inactive lisinopril 20 mg tablet RxNorm: 561889 Tablet(s) TAKE 1 TABLET BY MOUTH TWICE DAILY. 11/23/2014 03/22/2015 Inactive lisinopril 20 mg tablet RxNorm: 435067 TAKE 1 TABLET BY MOUTH TWICE DAILY. 11/22/2014 11/22/2014 Inactive Sinemet 25 mg-100 mg tablet RxNorm: 990296 1 Tablet(s) PO BID TAKE 1 TABLET BY MOUTH TWICE A DAY IN THE MORNING AND AT SUPPER 10/01/2014 03/04/2015 Inactive [ SAVINGS FOR UNINSURED PATIENTS -- BIN:[id number], PCN: ASPROD1, Group: [id number], ID# [id number], Process claim through Thumb, for questions: . THIS IS NOT INSURANCE.] glipizide 10 mg tablet RxNorm: 324077 1 Tablet(s) BID TAKE 1 TABLET BY MOUTH DAILY. 10/01/2014 06/24/2015 Inactive glipizide 10 mg tablet RxNorm: 298271 Tablet(s) daily TAKE 1 TABLET BY MOUTH DAILY. 08/06/2014 09/30/2014 Inactive Lantus Solostar 100 unit/mL (3 mL) subcutaneous insulin pen RxNorm: 830227 20 Unit(s) SQ daily 07/11/2014 09/26/2015 Inactive [SAVINGS FOR UNINSURED PATIENTS -- BIN:586427, PCN: ASPROD1, Group: [id number], ID# [id number], Process claim through Thumb, for questions: . THIS IS NOT INSURANCE.] metformin ER 500 mg tablet,extended release 24 hr RxNorm: 675343 1 Tablet(s) PO BID 07/10/2014 03/24/2015 Inactive lisinopril 20 mg tablet RxNorm: 322665 Tablet(s) TAKE 1 TABLET BY MOUTH TWICE DAILY. 07/10/2014 11/21/2014 Inactive Lantus Solostar 100 unit/mL (3 mL) subcutaneous insulin pen RxNorm: 471632 20 Unit(s) SQ daily 05/30/2014 07/10/2014 Inactive [SAVINGS FOR UNINSURED PATIENTS -- BIN:617519, PCN: ASPROD1, Group: [id number], ID# [id number], Process claim through Thumb, for questions: . THIS IS NOT INSURANCE.] Sinemet 25 mg-100 mg tablet RxNorm: 626724 Tablet(s) TAKE 1 TABLET BY MOUTH TWICE A DAY IN THE MORNING AND AT SUPPER 05/30/2014 09/30/2014 Inactive [SAVINGS FOR UNINSURED PATIENTS -- BIN:127359, PCN: ASPROD1, Group: [id number], ID# [id number], Process claim through MedImpact, for questions: . THIS IS NOT INSURANCE.] lisinopril 20 mg tablet RxNorm: 731540 TAKE 1 TABLET BY MOUTH TWICE DAILY. 04/09/2014 04/08/2014 Inactive glipizide 10 mg tablet RxNorm: 811552 TAKE 1 TABLET BY MOUTH TWICE DAILY. 04/09/2014 08/05/2014 Inactive glipizide 10 mg tablet RxNorm: 346635 TAKE 1 TABLET BY MOUTH TWICE DAILY. 04/09/2014 04/08/2014 Inactive lisinopril 20 mg tablet RxNorm: 982279 TAKE 1 TABLET BY MOUTH TWICE DAILY. 04/09/2014 07/09/2014 Inactive lisinopril 20 mg tablet RxNorm: 183508 Tablet(s) TAKE ONE TABLET BY MOUTH TWICE DAILY 04/06/2014 04/08/2014 Inactive [SAVINGS FOR UNINSURED PATIENTS -- BIN:615906 , PCN: ASPROD1, Group: [id number], ID# [id number], Process claim through MedImpact, for questions: . THIS IS NOT INSURANCE.] glipizide 10 mg tablet RxNorm: 430617 1 Tablet(s) PO BID 201304/08/2014 Inactive [SAVINGS FOR UNINSURED PATIENTS -- BIN:936443, PCN: ASPROD1, Group: [id number], ID # [id number], Process claim through MedImpact, for questions: . THIS IS NOT INSURANCE.] pravastatin 10 mg tablet RxNorm: 420149 TAKE ONE TABLET BY MOUTH EVERY DAY 02/26/2014 05/26/2014 Inactive Sinemet 25 mg-100 mg tablet RxNorm: 709841 TAKE 1 TABLET BY MOUTH TWICE A DAY IN THE MORNING AND AT SUPPER 01/26/201401/25 Inactive Sinemet 25 mg-100 mg tablet RxNorm: 979453 Tablet(s) TAKE 1 TABLET BY MOUTH TWICE A DAY IN THE MORNING AND AT SUPPER 01/26/2014 05/29/2014 Inactive [SAVINGS FOR UNINSURED PATIENTS -- BIN:002338, PCN: ASPROD1, Group: [id number], ID# [id number], Process claim through Area 1 Securityact, for questions: . THIS IS NOT INSURANCE.] Sinemet 25 mg-100 mg tablet RxNorm: 612583 TAKE 1 TABLET BY MOUTH TWICE A DAY IN THE MORNING AND AT SUPPER 01/26/201401/25 Inactive Sinemet 25 mg-100 mg tablet RxNorm: 043471 TAKE 1 TABLET BY MOUTH TWICE A DAY IN THE MORNING AND AT SUPPER 01/26/201401/25 Inactive pantoprazole 40 mg tablet,delayed release RxNorm: 464963 TAKE 1 TABLET DAILY 01/25/2014 10/07/2016 Inactive finasteride 5 mg tablet RxNorm: 152672 1 Tablet(s) PO daily 12/201309/30/2014 Inactive [SAVINGS FOR UNINSURED PATIENTS -- BIN:229492, PCN: ASPROD1, Group: [id number] , ID# [id number], Process claim through Thumb, for questions: . THIS IS NOT INSURANCE.] sucralfate 100 mg/mL oral suspension RxNorm: 588844 10 Milliliter(s) PO QID 01/23/2014 09/30/2014 Inactive dispense qs x 1 month lisinopril 20 mg tablet RxNorm: 740062 TAKE ONE TABLET BY MOUTH TWICE DAILY 12/27/2013 03/26/2014 Inactive pantoprazole 40 mg tablet,delayed release RxNorm: 321696 1 Tablet(s) PO daily 12/26/2013 12/25/2013 Inactive [SAVINGS FOR UNINSURED PATIENTS -- BIN:137187, PCN: ASPROD1, Group: [id number], ID# [id number], Process claim through Area 1 Securityact, for questions: . THIS IS NOT INSURANCE.] pantoprazole 40 mg tablet,delayed release RxNorm: 401187 1 Tablet(s) PO daily 12/26/2013 12/20/2014 Inactive [SAVINGS FOR UNINSURED PATIENTS -- BIN:972281, PCN: ASPROD1, Group: [id number], ID# [id number], Process claim through MedImpact, for questions: . THIS IS NOT INSURANCE.] gemfibrozil 600 mg tablet RxNorm: 710168 1 Tablet(s) PO BID 11/201310/23/2013 Inactive gemfibrozil 600 mg tablet RxNorm: 293575 1 Tablet(s) PO BID 11/201309/30/2014 Inactive [SAVINGS FOR UNINSURED PATIENTS -- BIN:453584, PCN: ASPROD1, Group: [id number] , ID# [id number], Process claim through MedImpact, for questions: . THIS IS NOT INSURANCE.] finasteride 5 mg tablet RxNorm: 505977 1 Tablet(s) PO daily 04/201301/24/2014 Inactive [SAVINGS FOR UNINSURED PATIENTS -- BIN:430600, PCN: ASPROD1, Group: [id number] , ID# [id number], Process claim through MedImpact, for questions: . THIS IS NOT INSURANCE.] Lantus Solostar 100 unit/mL (3 mL) subcutaneous insulin pen RxNorm: 864711 20 Unit(s) SQ daily 10/09/2013 05/29/2014 Inactive [SAVINGS FOR UNINSURED PATIENTS -- BIN:230780, PCN: ASPROD1, Group: [id number], ID# [id number], Process claim through MedImpact, for questions: . THIS IS NOT INSURANCE.] glipizide 10 mg tablet RxNorm: 858515 1 Tablet(s) PO daily 04/05/2014 Inactive [SAVINGS FOR UNINSURED PATIENTS -- BIN:904822, PCN: ASPROD1, Group: [id number] , ID# [id number], Process claim through MedImpact, for questions: . THIS IS NOT INSURANCE.] Lantus Solostar 100 unit/mL (3 mL) subcutaneous insulin pen RxNorm: 328211 20 Unit(s) SQ daily 07/18/2013 10/08/2013 Inactive Sinemet 25 mg-100 mg tablet RxNorm: 274933 1 Tablet(s) PO BID one pill in morning , one at supper 07/10/2013 01/25/2014 Inactive Sinemet 25 mg-100 mg tablet RxNorm: 782501 1 Tablet(s) PO BID one pill in morning , one at supper 04/24/2013 07/09/2013 Inactive metformin ER 500 mg tablet,extended release 24 hr RxNorm: 978070 1 Tablet(s) PO BID 04/24/2013 04/18/2014 Inactive glipizide 10 mg tablet RxNorm: 404513 1 Tablet(s) PO daily 09/201310/08/2013 Inactive lisinopril 20 mg tablet RxNorm: 620447 1 Tablet(s) PO BID 04/2410/20/2013 Inactive pravastatin 10 mg tablet RxNorm: 972984 1 Tablet(s) PO daily 10/20/2013 Inactive Lantus Solostar 100 unit/mL (3 mL) subcutaneous insulin pen RxNorm: 430890 20 Unit(s) SQ daily 04/24/2013 07/17/2013 Inactive glipizide 10 mg tablet RxNorm: 670396 1 Tablet(s) PO daily 05/201304/23/2013 Inactive glipizide 10 mg tablet RxNorm: 851371 1 Tablet(s) PO daily 05/201204/19/2013 Inactive Lantus Solostar 100 unit/mL (3 mL) subcutaneous insulin pen RxNorm: 547838 16 Unit(s) SQ daily 03/20/2013 04/23/2013 Inactive Sinemet 25 mg-100 mg tablet RxNorm: 099269 1 Tablet(s) PO BID one pill in morning , one at supper 01/20/2013 04/23/2013 Inactive Lantus Solostar 100 unit/mL (3 mL) subcutaneous insulin pen RxNorm: 303768 16 Unit(s) SQ daily 01/19/2013 01/25/2013 Inactive Sinemet 25 mg-100 mg tablet RxNorm: 204677 1 Tablet(s) PO BID one pill in morning , one at supper 01/19/2013 01/19/2013 Inactive glipizide 10 mg tablet RxNorm: 557217 1 Tablet(s) PO BID 201203/19/2013 Inactive Lantus Solostar 100 unit/mL (3 mL) Sub-Q Insulin Pen RxNorm: 679075 12 Unit(s) SQ daily 12/21/2012 01/18/2013 Inactive lisinopril 20 mg tablet RxNorm: 271268 1 Tablet(s) PO BID 12/0804/23/2013 Inactive metformin ER 500 mg tablet,extended release 24 hr RxNorm: 795191 1 Tablet(s) PO BID 11/30/2012 04/23/2013 Inactive Lantus Solostar 100 unit/mL (3 mL) Sub-Q Insulin Pen RxNorm: 446482 5 Unit(s) SQ daily 11/30/2012 12/07/2012 Inactive FINASTERIDE TAB 5MG RxNorm: 10/03/2012 Inactive lisinopril 20 mg tablet RxNorm: 658322 1 Tablet(s) PO BID 09/0812/06/2012 Inactive glipizide 10 mg tablet RxNorm: 783747 1 Tablet(s) PO BID 201212/30/2012 Inactive metronidazole 500 mg tablet RxNorm: 526340 1 Tablet(s) PO TID 05/30/2012 06/08/2012 Inactive metformin ER 500 mg tablet,extended release 24 hr RxNorm: 125265 2 Tablet(s) PO daily 04/22/2012 11/29/2012 Inactive metformin ER 500 mg tablet,extended release 24 hr RxNorm: 644068 2 Tablet(s) PO daily 04/21/2012 04/21/2012 Inactive ketoconazole 2 % Topical Cream RxNorm: 916910 1 Application TOP BID 04/14/2012 05/04/2012 Inactive ketoconazole 2 % Shampoo RxNorm: 472817 1 Application TOP every other day apply to feet, leave on for 5 minutes, then rinse. 04/14/2012 04/27/2012 Inactive clotrimazole 1 % Topical Cream RxNorm: 475637 1 Application TOP BID 02/22/2012 04/03/2012 Inactive glipizide 10 mg tablet RxNorm: 530556 1 Tablet(s) PO BID 201106/18/2012 Inactive lisinopril 20 mg tablet RxNorm: 977133 1 Tablet(s) PO BID 09/0108/26/2012 Inactive metformin ER 500 mg tablet,extended release 24 hr RxNorm: 812058 2 Tablet(s) PO daily 08/10/2011 04/20/2012 Inactive metformin ER 1,000 mg 24 hr Tab Ctrl Rel RxNorm: 860056 1 Tablet(s) PO daily 07/28/2011 08/09/2011 Inactive Kombiglyze XR 5 mg-1,000 mg 24 hr Tab RxNorm: 5010073 1 Tablet(s) PO daily 07/28/2011 07/27/2011 Inactive Kombiglyze XR 5 mg-1,000 mg 24 hr Tab RxNorm: 9973167 1 Tablet(s) PO daily 07/28/2011 07/28/2011 Inactive glipizide 10 mg tablet RxNorm: 428627 1 Tablet(s) PO BID 201107/27/2011 Inactive glipizide 10 mg Tab RxNorm: 235519 1 Tablet(s) PO BID 201106/16/2011 Inactive glipizide 10 mg Tab RxNorm: 219602 1 Tablet(s) PO BID 201006/15/2011 Inactive glipizide 10 mg Tab RxNorm: 299743 1 Tablet(s) PO BID 201004/01/2011 Inactive glipizide 10 mg Tab RxNorm: 224850 Tablet(s) PO BID 201003/31/2011 Inactive Calcium + Vitamin D 600 mg calcium-200 unit tablet RxNorm: 592005 1 Tablet(s) PO BID No Start Date Active pantoprazole 40 mg tablet,delayed release RxNorm: 468986 1 Tablet(s) PO daily No Start Date 12/25/2013 Inactive Sinemet 25 mg-100 mg tablet RxNorm: 647292 1/2 Tablet(s) PO BID one pill in morning, one at supper No Start Date 01/18 Inactive levothyroxine 100 mcg tablet RxNorm: 636784 1 Tablet(s) PO daily No Start Date 10/04/2016 Inactive lisinopril 20 mg Tab RxNorm: 621800 1 Tablet(s) PO BID No Start Date 09/01/2011 Inactive hydrocodone 5 mg-acetaminophen 325 mg tablet RxNorm: 412438 1-2 Tablet(s) PO Q6- 8H No Start Date 01/20/2016 Inactive pravastatin 10 mg tablet RxNorm: 820513 1 Tablet(s) PO daily No Start Date 04/23/2013 Inactive Medication Administered Medication Codes Instructions Start Date Status Kenalog 40 mg/mL suspension for injection RxNorm: 1711975 1Milliliter 07/30/2016 No longer Active Kenalog 40 mg/mL suspension for injection RxNorm: 5626998 1Milliliter 01/20/2016 No longer Active Immunizations Vaccine [...] Code Item Item Code Result Date %Hba1C Vdi792 % HbA1c 83990-5 7.1 % 02/17/2018 %Hba1C Fll145 Gluc Ave 157 mg/dL 02/17/2018 Comp Metabolic Nmr462 NA 135 mEq/L 02/17/2018 Comp Metabolic Gym336 K 4.7 mEq/L 02/17/2018 Comp Metabolic Uye726 CL 97 mEq/L 02/17/2018 Comp Metabolic Ewr891 CO2 27.0 mEq/L 02/17/2018 Comp Metabolic Ncy082 ANION GAP 16 02/17/2018 Comp Metabolic Moz104 GLUCOSE 141 mg/dL 02/17/2018 Comp Metabolic Fbp768 Creat 1.5 mg/dL 02/17/2018 Comp Metabolic Sob585 eGFR 48 ml/min/1.73m2 02/17/2018 Comp Metabolic Bkb283 BUN 29 mg/dL 02/17/2018 Comp Metabolic Kny842 B/C Ratio 19.5 Ratio 02/17/2018 Comp Metabolic Hyh185 CALCIUM 9.4 mg/dL 02/17/2018 Comp Metabolic Mnt027 ALK PHOS 57 U/L 02/17/2018 Comp Metabolic Vcn369 AST(SGOT) 13 U/L 02/17/2018 Comp Metabolic Xxo085 ALT(SGPT) 4 U/L 02/17/2018 Comp Metabolic Frt101 BILI T 0.6 mg/dL 02/17/2018 Comp Metabolic Znf476 ALBUMIN 4.2 g/dL 02/17/2018 Comp Metabolic Dsa223 TPRO 6.7 g/dL 02/17/2018 Comp Metabolic Hgf627 GLOB 2.5 g/dL 02/17/2018 Comp Metabolic Ppg743 A/G Ratio 1.7 Ratio 02/17/2018 Comp Metabolic Bxj120 Osmo 278 mOsmo 02/17/2018 Tsh Ord6 TSH (3rd IS) 3.10 uIU/mL 02/17/2018 Free T4 Bdq645 FREE T4 1.36 ng/dL 02/17/2018 Folate Ord36 Folate 19.00 ng/mL 01/11/2018 B12 Lhy561 B12 342.00 pg/ml 01/11/2018 Comp Metabolic Dcg515 NA 134 mEq/L 09/17/2017 Comp Metabolic Rch992 K 4.4 mEq/L 09/17/2017 Comp Metabolic Bxd856 CL 98 mEq/L 09/17/2017 Comp Metabolic Lyh850 CO2 25.0 mEq/L 09/17/2017 Comp Metabolic Wps878 ANION GAP 15 09/17/2017 Comp Metabolic Vje107 GLUCOSE 97 mg/dL 09/17/2017 Comp Metabolic Mas523 Creat 1.7 mg/dL 09/17/2017 Comp Metabolic Osw064 eGFR 40 ml/min/1.73m2 09/17/2017 Comp Metabolic Ywu874 BUN 28 mg/dL 09/17/2017 Comp Metabolic Isj517 B/C Ratio 16.2 Ratio 09/17/2017 Comp Metabolic Xnj373 CALCIUM 9.1 mg/dL 09/17/2017 Comp Metabolic Qlf942 ALK PHOS 76 U/L 09/17/2017 Comp Metabolic Qmn911 AST(SGOT) 17 U/L 09/17/2017 Comp Metabolic Lhx575 ALT(SGPT) 15 U/L 09/17/2017 Comp Metabolic Kvy034 BILI T 0.7 mg/dL 09/17/2017 Comp Metabolic Ioo332 ALBUMIN 4.1 g/dL 09/17/2017 Comp Metabolic Caz498 TPRO 6.9 g/dL 09/17/2017 Comp Metabolic Gca658 GLOB 2.8 g/dL 09/17/2017 Comp Metabolic Qmg654 A/G Ratio 1.5 Ratio 09/17/2017 Comp Metabolic Cgw949 Osmo 274 mOsmo 09/17/2017 Free T4 Vcz048 FREE T4 1.10 ng/dL 09/17/2017 Tsh Ord6 [...] 93.8 fl 09/17/2017 Cbc With Differential Ord2 Ector% 9.5 % 09/17/2017 Cbc With Differential Ord2 MCH 31.5 pg 09/17/2017 Cbc With Differential Ord2 Eos% 2.4 % 09/17/2017 Cbc With Differential Ord2 MCHC 33.6 pg 09/17/2017 Cbc With Differential Ord2 Baso% 0.3 % 09/17/2017 Cbc With Differential Ord2 PLT 181 K/ul 09/17/2017 Cbc With Differential Ord2 Neut ABS# 4.52 K/ul 09/17/2017 Cbc With Differential Ord2 RDW 13.5 % 09/17/2017 Cbc With Differential Ord2 Lymph ABS# 1.93 K/ul 09/17/2017 Cbc With Differential Ord2 Ector ABS# 0.7 K/ul 09/17/2017 Cbc With Differential Ord2 Eos ABS# 0.2 K/ul 09/17/2017 Cbc With Differential Ord2 Baso ABS# 0.0 K/ul 09/17/2017 %Hba1C Zmk165 % HbA1c 04276-7 6.8 % 09/17/2017 %Hba1C Dfn377 Gluc Ave 148 mg/dL 09/17/2017 %Hba1C Rol840 % HbA1c 80411-6 7.0 % 05/13/2017 %Hba1C Old700 Gluc Ave 154 mg/dL 05/13/2017 Free T4 Ojl971 FREE T4 1.29 ng/dL 05/13/2017 Tsh Ord6 TSH (3rd IS) 4.14 uIU/mL 05/13/2017 Tsh Ord6 hTSH II 9.43 uIU/mL 02/02/2017 Comp Metabolic Nfk183 NA 134 mEq/L 02/02/2017 Comp Metabolic Uwt246 K 4.4 mEq/L 02/02/2017 Comp Metabolic Wuz864 CL 99 mEq/L 02/02/2017 Comp Metabolic Eui447 CO2 26.0 mEq/L 02/02/2017 Comp Metabolic Ksc902 ANION GAP 13 02/02/2017 Comp Metabolic Xhu406 GLUCOSE 256 mg/dL 02/02/2017 Comp Metabolic Qmo500 Creat 1.6 mg/dL 02/02/2017 Comp Metabolic Fvu883 eGFR 45 ml/min/1.73m2 02/02/2017 Comp Metabolic Bnk133 BUN 26 mg/dL 02/02/2017 Comp Metabolic Exu787 B/C Ratio 16.6 Ratio 02/02/2017 Comp Metabolic Eav660 CALCIUM 8.7 mg/dL 02/02/2017 Comp Metabolic Qio757 ALK PHOS 63 U/L 02/02/2017 Comp Metabolic Zzx843 AST(SGOT) 11 U/L 02/02/2017 Comp Metabolic Spv204 ALT(SGPT) 9 U/L 02/02/2017 Comp Metabolic Lbq354 BILI T 0.5 mg/dL 02/02/2017 Comp Metabolic Slm589 ALBUMIN 3.7 g/dL 02/02/2017 Comp Metabolic Krk993 TPRO 6.1 g/dL 02/02/2017 Comp Metabolic Acx335 GLOB 2.4 g/dL 02/02/2017 Comp Metabolic Qfm491 A/G Ratio 1.6 Ratio 02/02/2017 Comp Metabolic Nxt296 Osmo 282 mOsmo 02/02/2017 %Hba1C Pho677 % HbA1c 81681-0 7.5 % 02/02/2017 %Hba1C Moi639 Gluc Ave 169 mg/dL 02/02/2017 Free T4 Acc015 FREE T4 1.23 ng/dL 02/02/2017 Cbc With [...] 93.0 fl 02/02/2017 Cbc With Differential Ord2 Ector% 9.6 % 02/02/2017 Cbc With Differential Ord2 MCH 31.2 pg 02/02/2017 Cbc With Differential Ord2 Eos% [...] 2.61 K/ul 02/02/2017 Cbc With Differential Ord2 Ector ABS# 0.8 K/ul 02/02/2017 Cbc With Differential Ord2 Eos ABS# 0.2 K/ul 02/02/2017 Cbc With Differential Ord2 Baso ABS# 0.1 K/ul 02/02/2017 Total T3 Ord42 TT3 0.59 ng/ml 07/14/2016 Free T4 Cyp459 FREE T4 1.14 ng/dL 07/14/2016 Cbc With [...] 94.7 fl 06/22/2016 Cbc With Differential Ord2 Ector% 9.9 % 06/22/2016 Cbc With Differential Ord2 [...] 2.41 K/ul 06/22/2016 Cbc With Differential Ord2 Ector ABS# 0.7 K/ul 06/22/2016 Cbc With Differential Ord2 Eos ABS# 0.2 K/ul 06/22/2016 Cbc With Differential Ord2 Baso ABS# 0.0 K/ul 06/22/2016 Comp Metabolic Huh395 NA 134 mEq/L 06/22/2016 Comp Metabolic Svg634 K 4.3 mEq/L 06/22/2016 Comp Metabolic Sqp451 CL 100 mEq/L 06/22/2016 Comp Metabolic Izn013 CO2 26.0 mEq/L 06/22/2016 Comp Metabolic Ekh701 ANION GAP 12 06/22/2016 Comp Metabolic Dvt268 GLUCOSE 222 mg/dL 06/22/2016 Comp Metabolic Ayq960 Creat 1.5 mg/dL 06/22/2016 Comp Metabolic Tnu943 eGFR 49 ml/min/1.73m2 06/22/2016 Comp Metabolic Eay392 BUN 23 mg/dL 06/22/2016 Comp Metabolic Szs071 B/C Ratio 15.9 Ratio 06/22/2016 Comp Metabolic Ufo895 CALCIUM 9.0 mg/dL 06/22/2016 Comp Metabolic Pjc145 ALK PHOS 59 U/L 06/22/2016 Comp Metabolic Avl730 AST(SGOT) 13 U/L 06/22/2016 Comp Metabolic Qcz942 ALT(SGPT) 11 U/L 06/22/2016 Comp Metabolic Axc513 BILI T 0.5 mg/dL 06/22/2016 Comp Metabolic Pgo376 ALBUMIN 3.8 g/dL 06/22/2016 Comp Metabolic Dpv266 TPRO 6.2 g/dL 06/22/2016 Comp Metabolic Qma063 GLOB 2.4 g/dL 06/22/2016 Comp Metabolic Bww575 A/G Ratio 1.6 Ratio 06/22/2016 Comp Metabolic Swz332 Osmo 279 mOsmo 06/22/2016 Tsh Ord6 hTSH II 0.44 uIU/mL 06/22/2016 Comp Metabolic Bjk996 NA 134 mEq/L 04/27/2016 Comp Metabolic Ovs837 K 4.6 mEq/L 04/27/2016 Comp Metabolic Llp212 CL 99 mEq/L 04/27/2016 Comp Metabolic Bly172 CO2 27.0 mEq/L 04/27/2016 Comp Metabolic Mle030 ANION GAP 13 04/27/2016 Comp Metabolic Xcf291 GLUCOSE 178 mg/dL 04/27/2016 Comp Metabolic Wfd882 Creat 1.4 mg/dL 04/27/2016 Comp Metabolic Iuq316 eGFR 53 ml/min/1.73m2 04/27/2016 Comp Metabolic Yyc464 BUN 24 mg/dL 04/27/2016 Comp Metabolic Bsz075 B/C Ratio 17.5 Ratio 04/27/2016 Comp Metabolic Oca561 CALCIUM 9.1 mg/dL 04/27/2016 Comp Metabolic Zsj866 ALK PHOS 72 U/L 04/27/2016 Comp Metabolic Sau685 AST(SGOT) 16 U/L 04/27/2016 Comp Metabolic Fby672 ALT(SGPT) 12 U/L 04/27/2016 Comp Metabolic Rei694 BILI T 0.6 mg/dL 04/27/2016 Comp Metabolic Zks624 ALBUMIN 4.1 g/dL 04/27/2016 Comp Metabolic Ard664 TPRO 6.8 g/dL 04/27/2016 Comp Metabolic Fqe624 GLOB 2.7 g/dL 04/27/2016 Comp Metabolic Qxr992 A/G Ratio 1.6 Ratio 04/27/2016 Comp Metabolic Jeq685 Osmo 277 mOsmo 04/27/2016 Cbc With Differential Ord2 WBC 8.72 K/ul 04/27/2016 Cbc With Differential Ord2 RBC 4.83 M/ul 04/27/2016 Cbc With Differential Ord2 HGB 15.4 g/dl 04/27/2016 Cbc With Differential Ord2 HCT 45.3 % 04/27/2016 Cbc With Differential Ord2 Neut% 54.1 % 04/27/2016 Cbc With Differential Ord2 Lymph% 33.1 % 04/27/2016 Cbc With Differential Ord2 MCV 93.8 fl 04/27/2016 Cbc With Differential Ord2 MCH 31.9 pg 04/27/2016 Cbc With Differential Ord2 Ector% 9.7 % 04/27/2016 Cbc With Differential Ord2 [...] 2.89 K/ul 04/27/2016 Cbc With Differential Ord2 Ector ABS# 0.9 K/ul 04/27/2016 Cbc With Differential Ord2 Eos ABS# 0.2 K/ul 04/27/2016 Cbc With Differential Ord2 Baso ABS# 0.0 K/ul 04/27/2016 %Hba1C Uoh262 % HbA1c 30715-1 7.2 % 04/27/2016 %Hba1C Pfx396 Gluc Ave 160 mg/dL 04/27/2016 Cbc With [...] 28.9 % 01/21/2016 Cbc With Differential Ord2 Ector% 8.9 % 01/21/2016 Cbc With Differential Ord2 MCH 31.0 pg 01/21/2016 Cbc With Differential Ord2 MCHC 33.3 pg 01/21/2016 Cbc With Differential Ord2 Eos% 2.3 % 01/21/2016 Cbc With Differential Ord2 PLT 145 K/ul 01/21/2016 Cbc With Differential Ord2 Baso% 0.3 % 01/21/2016 Cbc With Differential Ord2 RDW 14.5 % 01/21/2016 Cbc With Differential Ord2 Neut ABS# 3.95 K/ul 01/21/2016 Cbc With Differential Ord2 Lymph ABS# 1.91 K/ul 01/21/2016 Cbc With Differential Ord2 Ector ABS# 0.6 K/ul 01/21/2016 Cbc With Differential Ord2 Eos ABS# 0.2 K/ul 01/21/2016 Cbc With Differential Ord2 Baso ABS# 0.0 K/ul 01/21/2016 Comp Metabolic Cdt947 NA 134 mEq/L 01/21/2016 Comp Metabolic Epz515 K 5.0 mEq/L 01/21/2016 Comp Metabolic Ltp040 CL 99 mEq/L 01/21/2016 Comp Metabolic Dap682 CO2 26.0 mEq/L 01/21/2016 Comp Metabolic Xgm524 ANION GAP 14 01/21/2016 Comp Metabolic Mjk768 GLUCOSE 260 mg/dL 01/21/2016 Comp Metabolic Uqx793 Creat 1.5 mg/dL 01/21/2016 Comp Metabolic Uhp043 eGFR 50 ml/min/1.73m2 01/21/2016 Comp Metabolic Pcp428 BUN 18 mg/dL 01/21/2016 Comp Metabolic Att553 B/C Ratio 12.4 Ratio 01/21/2016 Comp Metabolic Qrk749 CALCIUM 8.8 mg/dL 01/21/2016 Comp Metabolic Lol624 ALK PHOS 68 U/L 01/21/2016 Comp Metabolic Qfn492 AST(SGOT) 16 U/L 01/21/2016 Comp Metabolic Xux685 ALT(SGPT) 16 U/L 01/21/2016 Comp Metabolic Kqs358 BILI T 0.5 mg/dL 01/21/2016 Comp Metabolic Irx342 ALBUMIN 3.8 g/dL 01/21/2016 Comp Metabolic Tlb867 TPRO 6.3 g/dL 01/21/2016 Comp Metabolic Bhp262 GLOB 2.5 g/dL 01/21/2016 Comp Metabolic Gsm955 A/G Ratio 1.5 Ratio 01/21/2016 Comp Metabolic Nfx471 Osmo 279 mOsmo 01/21/2016 %Hba1C Epx357 % HbA1c 71111-7 7.4 % 01/21/2016 %Hba1C Fwd913 Gluc Ave 166 mg/dL 01/21/2016 Metabolic Ord15 [...] Qnt Crqnt CRP 1.5 mg/dl 09/17/2015 %Hba1C Piv828 % HbA1c 89639-1 7.1 % 09/17/2015 %Hba1C Sow807 Gluc Ave 157 mg/dL 09/17/2015 Cbc With Differential Ord2 WBC 7.59 K/ul 08/06/2015 Cbc With Differential Ord2 RBC 4.39 M/ul 08/06/2015 Cbc With Differential Ord2 HGB 13.9 g/dl 08/06/2015 Cbc With Differential Ord2 Neut% 49.9 % 08/06/2015 Cbc With Differential Ord2 HCT 43.5 % 08/06/2015 Cbc With Differential Ord2 MCV 99.1 fl 08/06/2015 Cbc With Differential Ord2 Lymph% 38.2 % 08/06/2015 Cbc With Differential Ord2 MCH 31.7 pg 08/06/2015 Cbc With Differential Ord2 Ector% 9.6 % 08/06/2015 Cbc With Differential Ord2 MCHC 32.0 pg 08/06/2015 Cbc With Differential Ord2 Eos% 2.0 % 08/06/2015 Cbc With Differential Ord2 Baso% 0.3 % 08/06/2015 Cbc With Differential Ord2 PLT 165 K/ul 08/06/2015 Cbc With Differential Ord2 Neut ABS# 3.79 K/ul 08/06/2015 Cbc With Differential Ord2 RDW 14.8 % 08/06/2015 Cbc With Differential Ord2 Lymph ABS# 2.90 K/ul 08/06/2015 Cbc With Differential Ord2 Ector ABS# 0.7 K/ul 08/06/2015 Cbc With Differential Ord2 Eos ABS# 0.2 K/ul 08/06/2015 Cbc With Differential Ord2 Baso ABS# 0.0 K/ul 08/06/2015 Cbc With Differential Ord2 New Analyzer Notice Please note new ref ranges starting 05-01-2015 due to implemntation of new five part differential hematolgy analyzer. 08/06/2015 Comp Metabolic Egv468 NA 132 mEq/L 08/06/2015 Comp Metabolic Ost906 K 4.6 mEq/L 08/06/2015 Comp Metabolic Apb349 CL 98 mEq/L 08/06/2015 Comp Metabolic Yer749 CO2 25.0 mEq/L 08/06/2015 Comp Metabolic Wtc472 ANION GAP 14 08/06/2015 Comp Metabolic Aqr557 GLUCOSE 170 mg/dL 08/06/2015 Comp Metabolic Idv410 Creat 1.5 mg/dL 08/06/2015 Comp Metabolic Glo786 eGFR 46 ml/min/1.73m2 08/06/2015 Comp Metabolic Qdd128 BUN 21 mg/dL 08/06/2015 Comp Metabolic Fqc082 B/C Ratio 13.6 Ratio 08/06/2015 Comp Metabolic Srz976 CALCIUM 8.9 mg/dL 08/06/2015 Comp Metabolic Nwa483 ALK PHOS 60 U/L 08/06/2015 Comp Metabolic Zzw715 AST(SGOT) 16 U/L 08/06/2015 Comp Metabolic Jbm817 ALT(SGPT) 18 U/L 08/06/2015 Comp Metabolic Vjd083 BILI T 0.4 mg/dL 08/06/2015 Comp Metabolic Cdr616 ALBUMIN 3.8 g/dL 08/06/2015 Comp Metabolic Lmp054 TPRO 6.3 g/dL 08/06/2015 Comp Metabolic Agw453 GLOB 2.5 g/dL 08/06/2015 Comp Metabolic Hwe589 A/G Ratio 1.6 Ratio 08/06/2015 Comp Metabolic Dhp839 Osmo 271 mOsmo 08/06/2015 Tsh Ord6 hTSH II 0.95 uIU/mL 06/17/2015 Free T4 Wab240 FREE T4 1.08 ng/dL 06/17/2015 Metabolic Ord15 [...] Ord15 CALCIUM 9.0 mg/dL 05/06/2015 Comp Metabolic Pyc497 NA 143 mEq/L 03/04/2015 Comp Metabolic Dre981 K 4.5 mEq/L 03/04/2015 Comp Metabolic Mth169 CL 92 mEq/L 03/04/2015 Comp Metabolic Nrj070 CO2 24.0 mEq/L 03/04/2015 Comp Metabolic Fnw877 ANION GAP 32 03/04/2015 Comp Metabolic Jez519 GLUCOSE 72 mg/dL 03/04/2015 Comp Metabolic Whm892 Creat 1.5 mg/dL 03/04/2015 Comp Metabolic Veg421 eGFR 48 ml/min/1.73m2 03/04/2015 Comp Metabolic Ohc408 BUN 27 mg/dL 03/04/2015 Comp Metabolic Azh023 B/C Ratio 18.0 Ratio 03/04/2015 Comp Metabolic Tnr632 CALCIUM 9.1 mg/dL 03/04/2015 Comp Metabolic Nat191 ALK PHOS 58 U/L 03/04/2015 Comp Metabolic Zqt128 AST(SGOT) 16 U/L 03/04/2015 Comp Metabolic Jah152 ALT(SGPT) 13 U/L 03/04/2015 Comp Metabolic Dwo636 BILI T 0.6 mg/dL 03/04/2015 Comp Metabolic Ftg276 ALBUMIN 4.0 g/dL 03/04/2015 Comp Metabolic Bhp795 TPRO 6.6 g/dL 03/04/2015 Comp Metabolic Tia702 GLOB 2.6 g/dL 03/04/2015 Comp Metabolic Vhb520 A/G Ratio 1.6 Ratio 03/04/2015 Comp Metabolic Wac643 Osmo 289 mOsmo 03/04/2015 %Hba1C Xji926 % HbA1c 33768-3 7.3 % 01/28/2015 %Hba1C Pym549 Gluc Ave 163 mg/dL 01/28/2015 MICRALUR 9640176 MICRL MG/L 13.2 MG/L 10/01/2014 MICRALUR 8358455 XM.ALB/CRE 48.9 MG/GCR 10/01/2014 MICRALUR 4724276 CREAT MG/D 27 MG/DL 10/01/2014 MICRALUR 0101095 CRE/100 0.27 G/L 10/01/2014 A1C HPLC 4866288 A1C HPLC 32370-8 7.3 % 10/01/2014 TSH 3935251 TSH 0.423 uIU/ML 10/01/2014 TSH 1734067 TSH 0.612 uIU/ML 10/18/2013 A1C HPLC 0720856 A1C HPLC 99832-8 6.8 % 10/18/2013 GFR CALC 3263479 GFR AA >60 ML/MIN 10/18/2013 GFR CALC 8281894 GFR NON-AA 52.0L ML/MIN 10/18/2013 LIPID GRP HDL TEST 30 MG/DL 10/18/2013 LIPID GRP TRIG 425 MG/DL 10/18/2013 LIPID GRP TEST LDL HI TRIG MG/DL 10/18/2013 LIPID GRP CHOL 185 MG/DL 10/18/2013 LIPID GRP RCHOL/HDL 6.17 RATIO 10/18/2013 MICRALUR 5861724 MICRL MG/L 15.6 MG/L 10/18/2013 MICRALUR 6879973 XM.ALB/CRE 9.2 MG/GCR 10/18/2013 MICRALUR 4275550 CREAT MG/D 169 MG/DL 10/18/2013 MICRALUR 9824122 CRE/100 1.69 G/L 10/18/2013 CHEM 14 6626969 AST 20 U/L 10/18/2013 CHEM 14 0692577 ALT 13 IU/L 10/18/2013 CHEM 14 6191817 BUN 27 MG/DL 10/18/2013 CHEM 14 5624282 ALBUMIN 4.2 GM/DL 10/18/2013 CHEM 14 3062502 CHLORIDE 100 MMOL/L 10/18/2013 CHEM 14 3851013 BILI TOT 0.5 MG/DL 10/18/2013 CHEM 14 5696314 ALK PHOS 60 U/L 10/18/2013 CHEM 14 2163241 SODIUM 131 MMOL/L 10/18/2013 CHEM 14 2736169 CREATININE 1.32 MG/DL 10/18/2013 CHEM 14 6696804 CALCIUM 9.2 MG/DL 10/18/2013 CHEM 14 2690985 POTASSIUM 4.7 MMOL/L 10/18/2013 CHEM 14 5910129 PROT TOT 7.7 GM/DL 10/18/2013 CHEM 14 4554479 GLUCOSE 140 MG/DL 10/18/2013 CHEM 14 5649661 BICARB 24 MMOL/L 10/18/2013 CHEM 14 2480462 ANION GAP 7 MEQ/L 10/18/2013 PSA EQ 20110613 PSA EQ 7.79 NG/ML 10/18/2013 CBC 5130301 WBC 6.6 10e9/L 10/18/2013 CBC 7214713 RBC 4.58 10e12/L 10/18/2013 CBC 8382825 HGB 14.6 g/dL 10/18/2013 CBC 8957545 HCT DET 42.8 % 10/18/2013 CBC 3606390 MCV 93.4 fL 10/18/2013 CBC 3645612 MCH 31.9 pg 10/18/2013 CBC 2945765 MCHC 34.1 g/dL 10/18/2013 CBC 2104582 PLT 172 10e9/L 10/18/2013 CBC 3620401 MPV 9.3 fL 10/18/2013 CBC 2413111 JAYESH % 55.4 % 10/18/2013 CBC 0499096 LY % 33.0 % 10/18/2013 CBC 9557477 MON % 8.8 % 10/18/2013 CBC 8618013 EOS % 2.6 % 10/18/2013 CBC 6678168 BASO % 0.2 % 10/18/2013 CBC 6806297 RDW 12.7 % 10/18/2013 CBC 2803054 ABS JAYESH 3.66 10e9/L 10/18/2013 CBC 8479043 ABS LYMPH 2.18 10e9/L 10/18/2013 CBC 5325172 ABS MONO 0.58 10e9/L 10/18/2013 CBC 1821392 ABS EOS 0.17 10e9/L 10/18/2013 CBC 8899847 ABS BASO 0.01 10e9/L 10/18/2013 CBC 8555207 RDW-SD 42.6 fL 10/18/2013 TSH 1397573 TSH 1.257 uIU/ML 05/05/2013 CHEM 14 2750566 AST 15 U/L 05/05/2013 CHEM 14 4756541 ALT 13 IU/L 05/05/2013 CHEM 14 2639539 BUN 22 MG/DL 05/05/2013 CHEM 14 8040915 ALBUMIN 4.2 GM/DL 05/05/2013 CHEM 14 7486466 CHLORIDE 104 MMOL/L 05/05/2013 CHEM 14 9702143 BILI TOT 0.6 MG/DL 05/05/2013 CHEM 14 9016887 ALK PHOS 52 U/L 05/05/2013 CHEM 14 7088123 SODIUM 137 MMOL/L 05/05/2013 CHEM 14 6937947 CREATININE 1.25 MG/DL 05/05/2013 CHEM 14 8962007 CALCIUM 9.1 MG/DL 05/05/2013 CHEM 14 3962187 POTASSIUM 5.0 MMOL/L 05/05/2013 CHEM 14 4502228 PROT TOT 6.7 GM/DL 05/05/2013 CHEM 14 2771085 GLUCOSE 142 MG/DL 05/05/2013 CHEM 14 4357844 BICARB 27 MMOL/L 05/05/2013 CHEM 14 8728216 ANION GAP 6 MEQ/L 05/05/2013 GFR CALC 5023472 GFR AA >60 ML/MIN 05/05/2013 GFR CALC 7483341 GFR NON-AA 56.0L ML/MIN 05/05/2013 CBC 2936759 WBC 6.1 10e9/L 05/05/2013 CBC 2511751 RBC 4.74 10e12/L 05/05/2013 CBC 4045903 HGB 14.7 g/dL 05/05/2013 CBC 3473514 HCT DET 43.6 % 05/05/2013 CBC 2674346 MCV 92.0 fL 05/05/2013 CBC 4621804 MCH 31.0 pg 05/05/2013 CBC 7271458 MCHC 33.7 g/dL 05/05/2013 CBC 8017346 PLT 168 10e9/L 05/05/2013 CBC 6662962 MPV 9.3 fL 05/05/2013 CBC 5442509 JAYESH % 53.2 % 05/05/2013 CBC 9751685 LY % 35.3 % 05/05/2013 CBC 9556556 MON % 8.7 % 05/05/2013 CBC 5567727 EOS % 2.5 % 05/05/2013 CBC 8876071 BASO % 0.3 % 05/05/2013 CBC 5776257 RDW 13.5 % 05/05/2013 CBC 5007521 ABS JAYESH 3.25 10e9/L 05/05/2013 CBC 1053535 ABS LYMPH 2.15 10e9/L 05/05/2013 CBC 9664002 ABS MONO 0.53 10e9/L 05/05/2013 CBC 3495807 ABS EOS 0.15 10e9/L 05/05/2013 CBC 6645814 ABS BASO 0.02 10e9/L 05/05/2013 CBC 9209854 RDW-SD 44.8 fL 05/05/2013 A1C HPLC 9988622 A1C HPLC 07353-7 6.4 % 05/05/2013 LIPID GRP HDL TEST 32 MG/DL 05/05/2013 LIPID GRP TRIG 170 MG/DL 05/05/2013 LIPID GRP TEST LDL 73 MG/DL 05/05/2013 LIPID GRP CHOL 139 MG/DL 05/05/2013 LIPID GRP RCHOL/HDL 4.34 RATIO 05/05/2013 CHEM 14 6340464 AST 17 U/L 11/25/2012 CHEM 14 9657852 ALT 21 IU/L 11/25/2012 CHEM 14 2548503 BUN 20 MG/DL 11/25/2012 CHEM 14 1129655 ALBUMIN 4.4 GM/DL 11/25/2012 CHEM 14 1456461 CHLORIDE 99 MMOL/L 11/25/2012 CHEM 14 2257217 BILI TOT 0.6 MG/DL 11/25/2012 CHEM 14 6473227 ALK PHOS 50 U/L 11/25/2012 CHEM 14 4712698 SODIUM 129 MMOL/L 11/25/2012 CHEM 14 0180884 CREATININE 1.20 MG/DL 11/25/2012 CHEM 14 0043934 CALCIUM 9.2 MG/DL 11/25/2012 CHEM 14 1076690 POTASSIUM 5.1 MMOL/L 11/25/2012 CHEM 14 4183874 PROT TOT 6.7 GM/DL 11/25/2012 CHEM 14 2488345 GLUCOSE 196 MG/DL 11/25/2012 CHEM 14 6684986 BICARB 25 MMOL/L 11/25/2012 CHEM 14 5562981 ANION GAP 5 MEQ/L 11/25/2012 CBC 1897857 WBC 6.1 10e9/L 11/25/2012 CBC 8720878 RBC 4.78 10e12/L 11/25/2012 CBC 5715579 HGB 15.0 g/dL 11/25/2012 CBC 6259277 HCT DET 43.4 % 11/25/2012 CBC 9104260 MCV 90.8 fL 11/25/2012 CBC 0254980 MCH 31.4 pg 11/25/2012 CBC 2909583 MCHC 34.6 g/dL 11/25/2012 CBC 1037957 PLT 174 10e9/L 11/25/2012 CBC 5070534 MPV 9.5 fL 11/25/2012 CBC 7356056 JAYESH % 54.6 % 11/25/2012 CBC 8875632 LY % 32.9 % 11/25/2012 CBC 7797866 MON % 9.6 % 11/25/2012 CBC 2367358 EOS % 2.6 % 11/25/2012 CBC 0606744 BASO % 0.3 % 11/25/2012 CBC 5441989 RDW 12.9 % 11/25/2012 CBC 0144131 ABS JAYESH 3.33 10e9/L 11/25/2012 CBC 0960297 ABS LYMPH 2.01 10e9/L 11/25/2012 CBC 5665525 ABS MONO 0.59 10e9/L 11/25/2012 CBC 6157957 ABS EOS 0.16 10e9/L 11/25/2012 CBC 3696924 ABS BASO 0.02 10e9/L 11/25/2012 CBC 4352393 RDW-SD 42.3 fL 11/25/2012 LIPID GRP HDL TEST 39 MG/DL 11/25/2012 LIPID GRP TRIG 204 MG/DL 11/25/2012 LIPID GRP TEST LDL 100 MG/DL 11/25/2012 LIPID GRP CHOL 180 MG/DL 11/25/2012 LIPID GRP RCHOL/HDL 4.62 RATIO 11/25/2012 A1C HPLC [id number] A1C HPLC 93378-1 8.2 % 11/25/2012 GFR CALC 9178877 GFR AA >60 ML/MIN 11/25/2012 GFR CALC 3551034 GFR NON-AA 58.0L ML/MIN 11/25/2012 TSH 4133085 TSH 0.636 uIU/ML 01/13/2012 A1C HPLC 7474237 A1C HPLC 60434-1 7.9 % 01/13/2012 GFR CALC 5900238 GFR AA >60 ML/MIN 01/13/2012 GFR CALC 1280346 GFR NON-AA 59.0L ML/MIN 01/13/2012 CBC 7207132 WBC 7.8 10e9/L 01/13/2012 CBC 2832026 RBC 4.93 10e12/L 01/13/2012 CBC 9024946 HGB 15.3 g/dL 01/13/2012 CBC 1313697 HCT DET 43.6 % 01/13/2012 CBC 2456870 MCV 88.4 fL 01/13/2012 CBC 4481384 MCH 31.0 pg 01/13/2012 CBC 8177080 MCHC 35.1 g/dL 01/13/2012 CBC 9430720 PLT 173 10e9/L 01/13/2012 CBC 6474103 MPV 9.1 fL 01/13/2012 CBC 5184189 JAYESH % 57.6 % 01/13/2012 CBC 5291914 LY % 31.5 % 01/13/2012 CBC 2385609 MON % 8.8 % 01/13/2012 CBC 8838884 EOS % 1.8 % 01/13/2012 CBC 4211762 BASO % 0.3 % 01/13/2012 CBC 3217910 RDW 12.9 % 01/13/2012 CBC 3797469 ABS JAYESH 4.49 10e9/L 01/13/2012 CBC 6251607 ABS LYMPH 2.46 10e9/L 01/13/2012 CBC 1096054 ABS MONO 0.69 10e9/L 01/13/2012 CBC 3062041 ABS EOS 0.14 10e9/L 01/13/2012 CBC 0392897 ABS BASO 0.02 10e9/L 01/13/2012 CBC 6123092 RDW-SD 41.2 fL 01/13/2012 CHEM 14 8835347 AST 21 U/L 01/13/2012 CHEM 14 5259577 ALT 23 IU/L 01/13/2012 CHEM 14 7491868 BUN 20 MG/DL 01/13/2012 CHEM 14 8166837 ALBUMIN 4.4 GM/DL 01/13/2012 CHEM 14 2096400 CHLORIDE 94 MMOL/L 01/13/2012 CHEM 14 7847324 BILI TOT 0.5 MG/DL 01/13/2012 CHEM 14 5039134 ALK PHOS 60 U/L 01/13/2012 CHEM 14 9485196 SODIUM 131 MMOL/L 01/13/2012 CHEM 14 6276697 CREATININE 1.20 MG/DL 01/13/2012 CHEM 14 9706759 CALCIUM 9.5 MG/DL 01/13/2012 CHEM 14 7499878 POTASSIUM 4.3 MMOL/L 01/13/2012 CHEM 14 7360090 PROT TOT 6.5 GM/DL 01/13/2012 CHEM 14 7773128 GLUCOSE 172 MG/DL 01/13/2012 CHEM 14 9494802 BICARB 26 MMOL/L 01/13/2012 CHEM 14 3617041 ANION GAP 11 MEQ/L 01/13/2012 Review of [...] clear 07/13/2017 None Full Exam - General 1995 Ears/Nose/Throat [...] exam 05/30/2012 None Full Exam - General 1995 Constitutional general appearance Overall: well developed 04/26/2012 [...] WOUN RTS (CULTURE OTHR SPECIMN AEROBIC) CPT-4: 31945 03/19/2015 DRAINAGE OF SKIN ABSCESS CPT-4: 89385 03/19/2015 ADMIN PNEUMOCOCCAL VACCINE SNOMED CT: 34485865 CPT-4: G0009 03/08/2015 PNEUMOCOCCAL VACC 13 THALIA IM Formatting Model/CDA Sections, Assigned to SNOMED CT: [id number] CPT-4: [id number] 03/08/2015 ADMIN PNEUMOCOCCAL VACCINE SNOMED CT: 16602798 CPT-4: G0009 01/23/2014 Pneumococcal Polysaccharide Vaccine, 23-Valent, Ad Assigned to/Merissa Sutton CPT-4: [id number] 01/23/2014 DESTRUCT PREMALG LESION CPT-4: 31688 10/24/2013 DESTRUCT PREMALG LES 2-14 CPT-4: 64189 10/24/2013 ROUTINE VENIPUNCTURE CPT-4: 97998 05/05/2013 PRESCRIP TRANSMIT VIA ERX SY CPT-4: G8553 04/24/2013 DESTRUCT PREMALG LESION CPT-4: 81296 12/26/2012 PRESCRIP TRANSMIT VIA ERX SY CPT-4: G8553 11/30/2012 ROUTINE VENIPUNCTURE CPT-4: 29975 11/25/2012 PRESCRIP TRANSMIT VIA ERX SY CPT-4: G8553 05/30/2012 PRESCRIP TRANSMIT VIA ERX SY CPT-4: G8553 04/14/2012 PRESCRIP TRANSMIT VIA ERX SY CPT-4: G8553 02/22/2012 ROUTINE VENIPUNCTURE CPT-4: 73473 01/13/2012 ROUTINE VENIPUNCTURE CPT-4: 28197 08/06/2011 ROUTINE VENIPUNCTURE CPT-4: 97041 06/25/2011 Vital Signs Date Vital 05/04/2018 Blood Pressure 1: 140/72 Code : 8480-6 BMI: 29.1 Code : 03671-1 Heart Rate 1 : 65 bpm Height: 6'2" SpO2: 98% Weight: 227 lbs 02/17/2018 Blood Pressure 1: 140/74 Code : 8480-6 BMI: 29.7 Code : 28111-3 Heart Rate 1 : 67 bpm Height: 6'2" SpO2: 98% Waist Measure (cm): 112 cm Weight: 231 lbs 01/11/2018 Blood Pressure 1: 140/80 Code : 8480-6 BMI: 29.4 Code : 85073-2 Heart Rate 1 : 72 bpm Height: 6'2" SpO2: 92% Weight: 229 lbs 09/16/2017 Blood Pressure 1: 136/78 Code : 8480-6 BMI: 28.8 Code : 79424-4 Heart Rate 1 : 74 bpm Height: 6'2" SpO2: 94% Weight: 224 lbs 07/13/2017 Blood Pressure 1: 142/78 Code : 8480-6 BMI: 29.3 Code : 27838-7 Heart Rate 1 : 67 bpm Height: 6'2" SpO2: 97% Weight: 228 lbs 05/13/2017 Blood Pressure 1: 154/82 Code : 8480-6 BMI: 30.0 Code : 37619-3 Heart Rate 1 : 65 bpm Height: 6'2" SpO2: 98% Weight: 234 lbs 04/28/2017 Blood Pressure 1: 134/78 Code : 8480-6 BMI: 29.7 Code : 32331-9 Heart Rate 1 : 73 bpm Height: 6'2" SpO2: 94% Weight: 231 lbs 04/15/2017 Blood Pressure 1: 152/74 Code : 8480-6 BMI: 29.7 Code : 89253-3 Heart Rate 1 : 64 bpm Height: 6'2" SpO2: 98% Weight: 231 lbs 02/04/2017 Blood Pressure 1: 140/78 Code : 8480-6 BMI: 30.0 Code : 54826-9 Heart Rate 1 : 83 bpm Height: 6'2" SpO2: 97% Weight: 234 lbs 10/12/2016 Blood Pressure 1: 148/68 Code : 8480-6 BMI: 29.3 Code : 89393-0 Heart Rate 1 : 65 bpm Height: 6'2" SpO2: 100% Weight: 228 lbs 10/08/2016 Blood Pressure 1: 148/68 Code : 8480-6 BMI: 29.3 Code : 03234-4 Heart Rate 1 : 65 bpm Height: 6'2" SpO2: 100% Weight: 228 lbs 8 oz 09/10/2016 Blood Pressure 1: 142/68 Code : 8480-6 BMI: 29.3 Code : 90137-7 Heart Rate 1 : 75 bpm Height: 6'2" SpO2: 97% Weight: 228 lbs 08/24/2016 Blood Pressure 1: 156/86 Code : 8480-6 BMI: 28.1 Code : 55213-1 Heart Rate 1 : 72 bpm Height: 6'2" SpO2: 97% Weight: 219 lbs 08/06/2016 Blood Pressure 1: 172/90 Code : 8480-6 BMI: 29.0 Code : 51882-8 Heart Rate 1 : 68 bpm Height: 6'2" SpO2: 98% Temperature: 36.1 (C) / 96.9 (F) Weight: 226 lbs 07/30/2016 Blood Pressure 1: 138/86 Code : 8480-6 BMI: 29.7 Code : 92656-1 Heart Rate 1 : 80 bpm Height: 6'2" SpO2: 95% Temperature: 36.5 (C) / 97.7 (F) Weight: 231 lbs 06/22/2016 Blood Pressure 1: 145/82 Code : 8480-6 Heart Rate 1: 77 bpm Respiratory Rate : 18 bpm SpO2: 97% Weight: 231 lbs 04/27/2016 Blood Pressure 1: 158/76 Code : 8480-6 Blood Pressure 1: 182/78 Code: 8480-6 BMI: 30.4 Code: 86497-2 Heart Rate 1: 69 bpm Height: 6'2" SpO2: 97% Weight: 237 lbs 03/23/2016 Blood Pressure 1: 140/82 Code : 8480-6 BMI: 30.4 Code : 49006-3 Heart Rate 1 : 77 bpm Height: 6'2" SpO2: 93% Weight: 237 lbs 01/20/2016 Blood Pressure 1: 142/80 Code : 8480-6 BMI: 31.2 Code : 20221-3 Heart Rate 1 : 64 bpm Height: 6'2" SpO2: 93% Weight: 243 lbs 12/16/2015 Blood Pressure 1: 138/88 Code : 8480-6 BMI: 30.3 Code : 61291-8 Heart Rate 1 : 62 bpm Height: 6'2" SpO2: 97% Weight: 236 lbs 12/09/2015 Blood Pressure 1: 148/80 Code : 8480-6 Blood Pressure 1: 198/92 Code: 8480-6 Blood Pressure 1: 152/70 Code: 8480-6 BMI: 30.3 Code: 00961-5 Heart Rate 1: 84 bpm Height: 6'2" Weight: 236 lbs 11/25/2015 Blood Pressure 1: 160/80 Code : 8480-6 BMI: 30.2 Code : 47238-4 Heart Rate 1 : 68 bpm Height: 6'2" SpO2: 96% Weight: 235 lbs 09/02/2015 Blood Pressure 1: 122/64 Code : 8480-6 BMI: 30.2 Code : 02652-5 Heart Rate 1 : 86 bpm Height: 6'2" SpO2: 98% Weight: 235 lbs 08/05/2015 Blood Pressure 1: 130/70 Code : 8480-6 Heart Rate 1: 81 bpm SpO2: 97% Weight: 233 lbs 07/25/2015 Blood Pressure 1: 142/80 Code : 8480-6 BMI: 30.0 Code : 78921-9 Heart Rate 1 : 74 bpm Height: 6'2" SpO2: 95% Weight: 234 lbs 06/03/2015 Blood Pressure 1: 150/68 Code : 8480-6 BMI: 30.0 Code : 28612-3 Heart Rate 1 : 66 bpm Height: 6'2" SpO2: 96% Weight: 234 lbs 03/19/2015 Blood Pressure 1: 154/78 Code : 8480-6 BMI: 30.3 Code : 68075-7 Heart Rate 1 : 63 bpm Height: 6'2" SpO2: 96% Weight: 236 lbs 03/04/2015 Blood Pressure 1: 124/68 Code : 8480-6 BMI: 30.2 Code : 63909-5 Heart Rate 1 : 60 bpm Height: 6'2" SpO2: 97% Weight: 235 lbs 02/20/2015 Blood Pressure 1: 160/84 Code : 8480-6 BMI: 30.8 Code : 53889-6 Heart Rate 1 : 79 bpm Height: 6'2" SpO2: 96% Weight: 240 lbs 02/11/2015 Blood Pressure 1: 170/102 Code: 8480-6 BMI: 31.1 Code: 39590-0 Heart Rate 1: 81 bpm Height: 6'2" SpO2: 96% Weight: 242 lbs 01/28/2015 Blood Pressure 1: 174/80 Code : 8480-6 Blood Pressure 2: 168/74 Code: 8480-6 BMI: 31.2 Code: 97622-1 Heart Rate 1: 74 bpm Height: 6'2" SpO2: 97% Weight: 243 lbs 10/01/2014 Blood Pressure 1: 152/84 Code : 8480-6 BMI: 30.4 Code : 94369-2 Heart Rate 1 : 80 bpm Height: 6'2" SpO2: 96% Weight: 237 lbs 05/30/2014 Blood Pressure 1: 140/82 Code : 8480-6 BMI: 30.6 Code : 45676-5 Heart Rate 1 : 86 bpm Height: 6'2" Weight: 238 lbs 02/28/2014 Blood Pressure 1: 152/86 Code : 8480-6 BMI: 29.5 Code : 60496-3 Heart Rate 1 : 64 bpm Height: 6'2" Weight: 230 lbs 01/23/2014 Blood Pressure 1: 142/68 Code : 8480-6 BMI: 29.7 Code : 49439-5 Heart Rate 1 : 80 bpm Height: 6'2" Weight: 231 lbs 12/26/2013 Blood Pressure 1: 150/72 Code : 8480-6 BMI: 29.3 Code : 74331-8 Heart Rate 1 : 60 bpm Height: 6'2" Respiratory Rate: 16 bpm Weight: 228 lbs 8 oz 10/24/2013 Blood Pressure 1: 140/84 Code : 8480-6 Heart Rate 1: 60 bpm 10/17/2013 Blood Pressure 1: 166/72 Code : 8480-6 BMI: 28.8 Code : 96156-0 Heart Rate 1 : 68 bpm Height: 6'2" Weight: 224 lbs 07/24/2013 Blood Pressure 1: 112/64 Code : 8480-6 BMI: 29.1 Code : 20000-6 Heart Rate 1 : 80 bpm Height: 6'2" Weight: 227 lbs 04/24/2013 Blood Pressure 1: 130/74 Code : 8480-6 BMI: 28.9 Code : 44584-2 Heart Rate 1 : 76 bpm Height: 6'2" Weight: 225 lbs 6 oz 03/20/2013 Blood Pressure 1: 150/70 Code : 8480-6 BMI: 29.7 Code : 63379-0 Heart Rate 1 : 76 bpm Height: 6'2" Temperature: 37.0 (C) / 98.6 (F) Weight: 231 lbs 01/19/2013 Blood Pressure 1: 150/78 Code : 8480-6 BMI: 30.2 Code : 38243-8 Heart Rate 1 : 84 bpm Height: 6'2" Weight: 235 lbs 12/26/2012 Blood Pressure 1: 142/78 Code : 8480-6 BMI: 29.9 Code : 73988-9 Heart Rate 1 : 84 bpm Height: 6'2" Weight: 233 lbs 12/21/2012 Blood Pressure 1: 142/80 Code : 8480-6 BMI: 29.5 Code : 53935-5 Heart Rate 1 : 80 bpm Height: 6'2" Weight: 230 lbs 11/30/2012 Blood Pressure 1: 146/78 Code : 8480-6 BMI: 29.4 Code : 63959-2 Heart Rate 1 : 80 bpm Height: 6'2" Weight: 229 lbs 05/30/2012 Blood Pressure 1: 150/74 Code : 8480-6 BMI: 29.4 Code : 55902-3 Heart Rate 1 : 76 bpm Height: 6'2" Respiratory Rate: 16 bpm Weight: 229 lbs 04/26/2012 Blood Pressure 1: 124/64 Code : 8480-6 Heart Rate 1: 90 bpm SpO2: 98% Temperature: 36.7 (C) / 98.1 (F) Weight: 04/14/2012 Blood Pressure 1: 150/88 Code : 8480-6 Blood Pressure 2: 150/90 Code: 8480-6 BMI: 29.4 Code: 43912-9 Heart Rate 1: 72 bpm Height: 6'2" [...] Code : 8480-6 BMI: 28.9 Code : 96876-9 Heart Rate 1 : 64 bpm Height: 6'2" Weight: 225 lbs 08/05/2011 Blood Pressure 1: 142/72 Code : 8480-6 BMI: 29.3 Code : 04512-6 Heart Rate 1 : 80 bpm Height: 6'2" Weight: 228 lbs 07/01/2011 Blood Pressure 1: 136/70 Code : 8480-6 BMI: 29.2 Code : 16724-6 Heart Rate 1 : 68 bpm Height: [...] doing physical therapy for parkinson's disease at [facility] diabetes mellitus Alleviating Factors insulin 01/19/2013 None [...] Codes Date EST. PATIENT, LEVEL IV Diagnosis: Parkinson's disease[ICD10: G20] Diagnosis: Atrophy of thyroid (acquired)[ICD10: E03.4] Diagnosis: Slow transit constipation[ICD10: K59.01] Diagnosis: Type 2 diabetes mellitus with hyperglycemia[ICD10: E11.65] Diagnosis: Essential (primary) hypertension[ICD10: I10] Yoli Medley MD, [facility] CPT-4: 21869 05/04/2018 ([id number]) 93717 EST. 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 CPT-4: 58402 01/11/2018 ([id number]) 62051 EST. PATIENT, LEVEL IV Diagnosis: Atrophy of thyroid (acquired)[ICD10: E03.4] Diagnosis: Type 2 diabetes mellitus with hyperglycemia[ICD10: E11.65] Diagnosis: Essential (primary) hypertension[ICD10: I10] Diagnosis: Parkinson's disease[ICD10: G20] [facility] CPT- 4: 44983 09/16/2017 ([id number]) 53443 EST. PATIENT, LEVEL IV Diagnosis: Essential (primary) hypertension[ICD10: I10] Diagnosis: Type 2 diabetes mellitus with hyperglycemia[ICD10: E11.65] Diagnosis: Atrophy of thyroid (acquired)[ICD10: E03.4] Yoli Medley MD, [facility] CPT-4: 28452 07/13/2017 ([id number]) 99769 EST. PATIENT, LEVEL IV Diagnosis: Essential (primary) hypertension[ICD10: I10] Diagnosis: Localized edema[ICD10: R60.0] Diagnosis: Atrophy of thyroid (acquired)[ICD10: E03.4] Diagnosis: Type 2 diabetes mellitus without complications[ICD10: E11.9] Yoli Medley MD, [facility] CPT-4: 51198 05/13/2017 05907 EST. PATIENT, LEVEL III Diagnosis: Rash and other nonspecific skin eruption[ICD10: R21] Bonita Medley MD, [facility] CPT-4: 38349 04/28/2017 58737 EST. PATIENT, LEVEL IV Diagnosis: Essential (primary) hypertension[ICD10: I10] Diagnosis: Atrophy of thyroid (acquired)[ICD10: E03.4] Diagnosis: Type 2 diabetes mellitus without complications[ICD10: E11.9] Bonita Medley MD , [facility] CPT-4: 85593 04/15/2017 ([id number]) 27958 EST. PATIENT, LEVEL IV Diagnosis: Type 2 diabetes mellitus with hyperglycemia[ICD10: E11.65] Diagnosis: Essential (primary) hypertension[ICD10: I10] Diagnosis: Hypothyroidism, unspecified[ICD10: E03.9] Ginny Medley MD, [facility] CPT-4: 56929 02/04/2017 ([id number]) 88504 EST. PATIENT, LEVEL III Diagnosis: Essential (primary) hypertension[ICD10: I10] Diagnosis: Hypothyroidism, unspecified[ICD10: E03.9] Ginny Medely MD, [facility] CPT-4: 90659 10/08/2016 ([id number]) 99074 EST. PATIENT, LEVEL III Diagnosis: Allergic rhinitis due to pollen[ICD10: J30.1] Diagnosis: Hypothyroidism, unspecified[ICD10: E03.9] Ginny Medley MD, [facility] CPT-4: 63785 09/10/2016 ([id number]) 64492 EST. 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 CPT-4: 59315 08/24/2016 ([id number]) 83391 EST. PATIENT, LEVEL IV Diagnosis: Abdominal distension (gaseous)[ICD10: R14.0] Diagnosis: Cough[ICD10: R05] Diagnosis: Acute bronchitis, unspecified[ICD10: J20.9] Diagnosis: Essential (primary) hypertension[ICD10: I10] Ginny Medley MD, [facility] CPT-4: 61462 08/06/2016 ([id number]) 40557 EST. PATIENT, LEVEL III Diagnosis: Cough[ICD10: R05] Diagnosis: Acute upper respiratory infection, unspecified[ICD10: J06.9] Ginny Medley MD, [facility] CPT-4: 20766 07/30/2016 ([id number]) 13536 EST. PATIENT, LEVEL IV Diagnosis: Type 2 diabetes mellitus with hyperglycemia[ICD10: E11.65] Diagnosis: Essential (primary) hypertension[ICD10: I10] Diagnosis: Parkinson's disease[ICD10: G20] Diagnosis: Localized edema[ICD10: R60.0] Ginny Medley MD, [facility] CPT-4: 38301 06/22/2016 ([id number]) 74727 EST. PATIENT, LEVEL IV Diagnosis: Essential (primary) hypertension[ICD10: I10] Diagnosis: Type 2 diabetes mellitus with hyperglycemia[ICD10: E11.65] Diagnosis: Hypo-osmolality and hyponatremia[ICD10: E87.1] Diagnosis: Hesitancy of micturition[ICD10: R39.11] Ginny Medley MD, [facility] CPT-4: 27734 04/27/2016 ([id number]) 74680 EST. PATIENT, LEVEL III Diagnosis: Essential (primary) hypertension[ICD10: I10] Diagnosis: Localized edema[ICD10: R60.0] Ginny Medley MD, [facility] CPT-4: 76841 03/23/2016 ([id number]) 62412 EST. PATIENT, LEVEL IV Diagnosis: Low back pain[ICD10: M54.5] Diagnosis: Hypo-osmolality and hyponatremia[ICD10: E87.1] Diagnosis: Essential (primary) hypertension[ICD10: I10] Diagnosis: Localized edema[ICD10: R60.0] Diagnosis: Type 2 diabetes mellitus with hyperglycemia[ICD10: E11.65] Ginny Medley MD, [facility] CPT-4: 04769 01/20/2016 ([id number]) 93749 EST. PATIENT, LEVEL III Diagnosis: Type 2 diabetes mellitus with hyperglycemia[ICD10: E11.65] Diagnosis: Essential (primary) hypertension[ICD10: I10] Diagnosis: Hypo-osmolality and hyponatremia[ICD10: E87.1] Ginny Medley MD, [facility] CPT-4: 70664 12/16/2015 ([id number]) 58688 EST. PATIENT, LEVEL III Diagnosis: Essential (primary) hypertension[ICD10: I10] Diagnosis: Hypo-osmolality and hyponatremia[ICD10: E87.1] Ginny Medley MD, [facility] CPT-4: 96730 12/09/2015 ([id number]) 21126 EST. PATIENT, LEVEL IV Diagnosis: Essential (primary) hypertension[ICD10: I10] Diagnosis: Type 2 diabetes mellitus with hyperglycemia[ICD10: E11.65] Diagnosis: Parkinson's disease[ICD10: G20] Ginny Medley MD, [facility] CPT-4: 89490 11/25/2015 38949 EST. PATIENT, LEVEL III Diagnosis: Localized edema[ICD10: R60.0] Diagnosis: Essential (primary) hypertension[ICD10: I10] Bonita Medley MD, [facility] CPT-4: 35091 09/02/2015 ([id number]) 88752 EST. PATIENT, LEVEL III Diagnosis: Localized edema[ICD10: R60.0] Ginny Medley MD, [facility] CPT-4: 21154 08/05/2015 ([id number]) 80393 EST. PATIENT, LEVEL III Diagnosis: Localized edema[ICD10: R60.0] Diagnosis: Unspecified open wound, right ankle, initial encounter[ICD10: S91.001A] Ginny Medley MD, [facility] CPT-4: 84983 ([id number]) 03449 EST. PATIENT, LEVEL IV Diagnosis: Essential (primary) hypertension[ICD10: I10] Diagnosis: Localized edema[ICD10: R60.0] Diagnosis: Low back pain[ICD10: M54.5] Diagnosis: Type 2 diabetes mellitus with hyperglycemia[ICD10: E11.65] Ginny Medley MD [facility] CPT-4: 15154 06/03/2015 ([id number]) Miscellaneous no charge Diagnosis: Encounter for other specified aftercare[ICD10: Z51.89] Yoli Medley MD [facility] CPT-4: 97544 03/20/2015 83906 EST. PATIENT, LEVEL IV Diagnosis: Cutaneous abscess of chest wall[ICD10: L02.213] Yoli Medley MD [facility] CPT-4: 72459 03/19/2015 ([id number]) 05890 EST. PATIENT, LEVEL III Diagnosis: Edema, unspecified[ICD10: R60.9] Yoli Medley MD [facility] CPT-4: 16689 03/04/2015 02507 EST. PATIENT, LEVEL III Diagnosis: Edema, unspecified[ICD10: R60.9] Diagnosis: Unspecified open wound, right ankle, initial encounter[ICD10: S91.001A] Yoli Medley MD [facility] CPT-4: 09127 07/2014 ([id number]) 03843 EST. PATIENT, LEVEL III Diagnosis: Edema, unspecified[ICD10: R60.9] Yoli Medley MD [facility] CPT-4: 32100 02/11/2015 ([id number]) 33526 EST. PATIENT, LEVEL IV Diagnosis: Type 2 diabetes mellitus with hyperglycemia[ICD10: E11.65] Diagnosis: Essential (primary) hypertension[ICD10: I10] Diagnosis: Edema, unspecified[ICD10: R60.9] Yoli Medley MD [facility] CPT-4: 54602 01/28/2015 ([id number]) 56670 EST. PATIENT, LEVEL IV Diagnosis: DIABETES TYPE II[ICD9: 250.00] Diagnosis: ESSENTIAL HYPERTENSION[ICD9: 401.9] Diagnosis: Parkinsons disease[ICD9: 332.0] Yoli Medley MD [facility] CPT- 4: 14597 10/01/2014 ([id number]) 26960 EST. PATIENT, LEVEL IV Diagnosis: ESSENTIAL HYPERTENSION[ICD9: 401.9] Diagnosis: DIABETES TYPE II[ICD9: 250.00] Diagnosis: Parkinsons disease[ICD9: 332.0] Yoli Medley MD [facility] CPT- 4: 28599 05/30/2014 ([id number]) 12287 EST. PATIENT, LEVEL IV Diagnosis: DIABETES TYPE II[ICD9: 250.00] Diagnosis: ESSENTIAL HYPERTENSION[ICD9: 401.9] Diagnosis: Back pain[ICD9: 724.5] Yoli Medley MD [facility] CPT-4: 05763 02/28/2014 ([id number]) 13646 EST. PATIENT, LEVEL III Diagnosis: ESOPHAGEAL REFLUX[ICD9: 530.81] Diagnosis: Esophageal ulcer[ICD9: 530.20] Yoli Medley MD [facility] CPT- 4: 40885 01/23/2014 ([id number]) 04451 EST. PATIENT, LEVEL IV Diagnosis: ESOPHAGEAL REFLUX[ICD9: 530.81] Diagnosis: ESSENTIAL HYPERTENSION[ICD9: 401.9] Yoli Medley MD [facility] CPT-4: 24401 12/26/2013 ([id number]) 67588 EST. PATIENT, LEVEL IV Diagnosis: Diabetes type 2, uncontrolled[ICD9: 250.02] Diagnosis: ESSENTIAL HYPERTENSION[ICD9: 401.9] Diagnosis: Back pain[ICD9: 724.5] Diagnosis: ELEVATED PSA[ICD9: 790.93] Yoli Medley MD [facility] CPT- 4: 98328 10/17/2013 ([id number]) 04970 EST. PATIENT, LEVEL IV Diagnosis: DIABETES TYPE II[SNOMED: 199112907] Diagnosis: ESSENTIAL HYPERTENSION[SNOMED: 16397152] Diagnosis: Sleep apnea[ICD9: 780.57] Yoli Medley MD [facility] CPT-4: 96212 07/24/2013 ([id number]) 89030 EST. PATIENT, LEVEL IV Diagnosis: DIABETES TYPE II[SNOMED: 217486386] Diagnosis: ESSENTIAL HYPERTENSION[SNOMED: 14847673] Diagnosis: HYPERLIPIDEMIA[ICD9: 272.4] Yoli Medley MD, [facility] CPT- 4: 19820 04/24/2013 ([id number]) 16366 EST. PATIENT, LEVEL III Diagnosis: DIABETES TYPE II[SNOMED: 309069792] Yoli Medley MD [facility] CPT-4: 55191 03/20/2013 ([id number]) 00939 EST. PATIENT, LEVEL III Diagnosis: DM W/O COMPLICATION TYPE II, UNCONTROLLED[SNOMED: 90234242] Yoli Medley MD [facility] CPT-4: 68950 01/19/2013 ([id number]) 74860 EST. PATIENT, LEVEL III Diagnosis: DM W/O COMPLICATION TYPE II, UNCONTROLLED[SNOMED: 64408017] Yoli Medley MD [facility] CPT-4: 57911 12/21/2012 ([id number]) 88548 EST. PATIENT, LEVEL IV Diagnosis: DM W/O COMPLICATION TYPE II, UNCONTROLLED[SNOMED: 01060973] Diagnosis: Parkinsons disease[ICD9: 332.0] Diagnosis: Back pain[ICD9: 724.5] Diagnosis: Gait instability[ICD9: 781.2] Yoli Medley MD [facility] CPT- 4: 33062 11/30/2012 ([id number]) 90241 EST. PATIENT, LEVEL IV Diagnosis: ESSENTIAL HYPERTENSION[SNOMED: 07807243] Diagnosis: Abdominal pain[ICD9: 789.00] Diagnosis: DIABETES TYPE II[SNOMED: 007087541] Yoli Medley MD [facility] CPT-4: 55359 05/30/2012 ([id number]) 83639 EST. PATIENT, LEVEL III Diagnosis: Gastroenteritis[ICD9: 558.9] Ginny Medley MD [facility] CPT-4: 67581 04/26/2012 ([id number]) 38622 EST. PATIENT, LEVEL IV Diagnosis: ESSENTIAL HYPERTENSION[SNOMED: 11258780] Diagnosis: DIABETES TYPE II[SNOMED: 844185117] Diagnosis: Claw toe[ICD9: 735.5] Yoli Medley MD [facility] CPT-4: 34033 04/14/2012 ([id number]) 24206 EST. PATIENT, LEVEL III Diagnosis: Rash[ICD9: 782.1] Diagnosis: DERMATOPHYTOSIS OF FOOT[ICD9: 110.4] Ginny Medley MD [facility] CPT-4: 14077 02/22/2012 ([id number]) 81344 EST. PATIENT, LEVEL IV Diagnosis: DM W/O COMPLICATION TYPE II, UNCONTROLLED[SNOMED: 80015622] Diagnosis: ESSENTIAL HYPERTENSION[SNOMED: 74777852] Diagnosis: Constipation - functional[ICD9: 564.09] Diagnosis: Encounter for long-term (current) use of other high-risk medications[ ICD9: V58.69] Yoli Medley MD, [facility] CPT-4: 30584 01/13/2012 ([id number] 51286 EST. PATIENT, LEVEL IV Diagnosis: ESSENTIAL HYPERTENSION[SNOMED: 64054238] Diagnosis: DIABETES TYPE II[SNOMED: 293122508] Yoli Medley MD, [facility] CPT-4: 53319 09/02/2011 96948 EST. PATIENT, LEVEL IV Diagnosis: LUMBAGO[ICD9: 724.2] Diagnosis: Sacroiliitis[ICD9: 720.2] Yoli Medley MD, [facility] CPT-4: 67327 08/05/2011 ([id number] 07352 EST. PATIENT, LEVEL IV Diagnosis: ESSENTIAL HYPERTENSION[SNOMED: 74458912] Diagnosis: DIABETES TYPE II[SNOMED: 883669579] Diagnosis: Breast mass in male[ICD9: 611.72] Diagnosis: Chronic hyponatremia[ICD9: 276.1] Yoli Mdeley MD, [facility] CPT-4: 88488 07/01/2011 Plan of Care Planned Activity Notes [...] bid if needed for persistent constipation. 05/04/2018 Patient Education: Patient Medication Summary Completed [...] shot today 01/11/2018 Appointment: Yoli Medley WPtel: [phone] [facility]66[facility] (15 min) Moderate 01/11/2018 Patient Education: Patient Medication Summary Completed 01/11/2018 Appointment: Bonita Villa WPtel: [phone] [facility] [place] [address] - Annual Wellness Visit 10/18/2017 Visit Plan: [...] current treatment. 09/16/2017 Appointment: Yoli Medley WPtel: [phone] [facility] (15 min) Moderate 09/16/2017 Patient Education: Patient [...] of control. 07/13/2017 Appointment: [phone] [place] (15 min) Moderate 07/13/2017 Patient Education: Patient [...] less controlled. 05/13/2017 Appointment: [facility] Med[phone] [place] (15 min) Moderate 05/13/2017 Patient Education: Patient Medication Summary Completed 05/13/2017 Visit Plan: Rash - The patient was instructed to use the ointment as per RX. The patient is to call for any change in symptoms, increase in size of the lesion, increase in pain, worsening redness, warmth, discharge. 04/28/2017 Appointment: Bon[facility] Villa [phone] (15 min) Moderate 04/28/2017 Patient Education: Patient Medication Summary Completed 04/28/2017 Appointment: Bonita Villa WPtel: [phone] [facility] (30 min) Complex 04/16/2017 Visit Plan: Hypertension [...] control. 04/15/2017 Appointment: Bonita Villa WPtel: [phone] [facility] (30 min) Complex 04/15/2017 Patient Education: Patient [...] control. 02/04/2017 Appointment: Ginny Pearl WPtel: [phone] [phone] (30 min) Complex 02/04/2017 Patient Education: Patient Medication Summary Completed 02/04/2017 Patient Education: Obesity Completed 02/04/2017 Patient Education: Patient Medication Summary Completed 02/01/2017 Appointment: Ginny Pearl WPtel: [phone] [phone] [place] (30 min) Complex 01/12/2017 Appointment: PearlGinny WPtel: [phone] [phone] (30 min) Complex 01/07/2017 Visit Plan: Medicare [...] care surrogate. 10/12/2016 Appointment: Bonita Villa WPtel: [facility] - Annual Wellness Visit 10/12/2016 Patient [...] 3 months. 10/08/2016 Appointment: Ginny Pearl WPtel: [facility] (30 min) Complex 10/08/2016 Patient Education: Patient Medication Summary Completed 10/08/2016 Patient Education: Hypertension Completed 10/08/2016 Visit Plan: Allergies-continue daily anti histamine-call if symptoms do not improve or if any worse S/P total thyroidectomy-now on levothyroxine-repeat labs in 1 month 09/10/2016 Appointment: Ginny Pearl WPtel: [facility]5 [place] [phone] (30 min) Complex 09/10/2016 Patient Education: Patient [...] [place] to do total thyroidectomy on Wednesday Gszbpxskpk-athjf-oohzip-due to thyroid nodules-will monitor symptoms for now [...] [place] to do total thyroidectomy on Wednesday Ilctiajtxz-wklho-shxrmi-due to thyroid nodules-will monitor symptoms for now 08/24/2016 Appointment: Ginny Pearl WPtel: [phone] [phone] (30 min) Complex 08/24/2016 Patient Education: Patient Medication Summary Completed 08/24/2016 Visit Plan: Abdominal uokkhyox-qbdmoiwvkhkj-IYL today Bronchitis - acute case of bronchitis [...] at home 08/06/2016 Appointment: Ginny Pearl WPtel: [phone] [phone] [place] (10 min) Simple 08/06/2016 Patient Education: Patient Medication Summary Completed 08/06/2016 Visit Plan: URI - Pt advised to increase fluids, vitamin C. Discussed natural and expected course of this diagnosis and need to alert me if symptoms do not follow expected course, or if any worse. RX sent to patient' s pharmacy. 07/30/2016 Appointment: Ginny Pearl WPtel: [phone] [phone] [place] (15 min) Moderate 07/30/2016 Patient Education: [...] worsen. 06/22/2016 Appointment: [facility] Pearl [phone] (30 min) Complex 06/22/2016 Patient Education: Patient [...] hesitancy-UA negative 04/27/2016 Appointment: Ginny Pearl [facility]Ptel[phone] (30 min) Complex 04/27/2016 Patient Education: [...] edema. 03/23/2016 Appointment: Ginny Pearl WPtel: [phone] [phone] (30 min) Complex 03/23/2016 Patient Education: [...] Low back pain, generalized weakness, Parkinsons Low ohwdno-hwariif-ya need for increase sodium intake Hypertension - [...] A1C 01/20/2016 Appointment: Ginny Pearl [facility]Ptel[phone] (30 min) Complex 01/20/2016 Patient Education: Patient Medication Summary Completed 01/20/2016 Patient Education: Obesity Completed 01/20/2016 Care Plan: Comp Metabolic Pending 01/20/2016 Care Plan: Cbc With Differential Pending 01/20/2016 Care Plan: %Hba1C LOINC : 99660-4 Pending 01/20/2016 Visit Plan: Diabetes Mellitus - [...] labs today 12/09/2015 Appointment: Ginny Pearl WPtel: [address] [place], [place] [phone] (30 min) [facility] 12/09/2015 Patient Education: Patient Medication Summary Completed [...] symptoms worsen. 11/25/2015 Appointment: Ginny Pearl WPtel: [phone] (30 min) Complex 11/25/2015 Patient Education: [...] 03/26/2015 Care Plan: Referral Order SNOMED-CT : [id number] Ordered 03/26/2015 Patient Education: Patient Medication Summary [...] with the spironolactone. 02/20/2015 Appointment: (15 min) Ellen 02/20/2015 Patient Education: Patient Medication Summary Completed 02/20/2015 Care Plan: Referral Order SNOMED-CT : [id number] Ordered 02/20/2015 Visit Plan: Hypertension - uncontrolled [...] - SPIRONOLACTONE 02/11/2015 Appointment: Yoli Medley WPtel: [address] [place], [place] [address] (15 min) Moderate 02/11/2015 Patient Education: Patient [...] pressure. 01/28/2015 Appointment: Y[facility] Medley [facility]Ptel: [phone] (15 min) Moderate 01/28/2015 Patient Education: Patient [...] worsen. 10/01/2014 Appointment: Yoli Medley WPtel: [phone] [place] Follow up 10/01/2014 Patient Education: Patient Medication [...] worsen. 05/30/2014 Appointment: Yoli Medley WPtel: [phone] [place] Follow up 05/30/2014 Patient Education: Patient Medication [...] 29. 01/23/2014 Appointment: Yoli Medley WPtel: [phone] [facility] Follow up 01/23/2014 Patient Education: [...] home. 12/26/2013 Appointment: Yoli Medley WPtel: [phone] [place] Follow up 12/26/2013 Patient Education: Patient Medication Summary Completed 12/26/2013 Patient Education: Hypertension Completed 12/26/2013 Visit Plan: Wound Instructions - Pt was instruced to keep the wound clean, wash with antibacterial soap, use triple antibiotic ointment, call if redness, pustular drainage, or any other acute conerns. 10/24/2013 Appointment: Ginny Pearl WPtel[phone] [facility] Procedure 10/24/2013 Patient Education: Patient [...] the lesions. 10/17/2013 Appointment: Yoli Medley WPtel: [phone] [place] Follow up 10/17/2013 Patient Education: Patient Medication [...] like to have his Oxygen company - [employer] patient - help with arranging oxygen when he is in [facility]. 07/24/2013 Appointment: Yoli Medley WPtel: [phone] [place] [place] Follow up 07/24/2013 Patient Education: Patient Medication Summary Completed 07/24/2013 Patient Education: Hypertension Completed 07/24/2013 Appointment: Ginny eParl WPtel[phone] [place] Lab Draw 05/05/2013 Patient Education: Patient Medication Summary Completed 05/05/2013 Patient Education: Hypertension Completed 05/05/2013 Appointment: Yoli Medley WPtel: [facility] [place] Follow up 05/01/2013 Visit Plan: Diabetes Mellitus [...] UNITS DAILY. 01/19/2013 Appointment: Yoli Medley WPtel: [phone] [facility] [place] Follow up 01/19/2013 Patient Education: Patient Medication Summary Completed 01/19/2013 Visit Plan: IB-mbcidxhb-tiaxtgtjhrf today in the office- wound Instructions - Pt was instruced to keep the wound clean, wash with antibacterial soap, use triple antibiotic ointment, call if redness, pustular drainage, or any other acute conerns. 12/26/2012 Appointment: Ginny Pearl WPtel: [phone] [phone] Other 12/26/2012 Patient Education: Patient Medication Summary [...] blood glucose. 12/21/2012 Appointment: Yoli Medley WPtel: [phone] [facility] [place] Follow up 12/21/2012 Patient Education: Patient Medication Summary Completed 12/21/2012 Visit Plan: Parkinsons disease - rx for sinemet 25/100mg 1/ 2 pill in morning and 1/2 pill in evening, pt to let us know if the symptoms improve. Referral to Miguel at [facility] for gait instability. Diabetes Mellitus - Uncontrolled [...] and gait instability - recommended eval at [facility] - continue with back brace as it offers support for the patient. 11/30/2012 App[facility]ment: [phone] Follow up 11/30/2012 Patient Education: Patient Medication [...] previously. 05/30/2012 Appointment: [facility] Med[phone] [facility] f/u Follow up 05/30/2012 Patient [...] to seek support for his arches via physician representative eval and perhaps arch supports to be custom made or custom fitted. 04/14/2012 Appointment: [facility] Med[facility]el[phone] Follow up 04/14/2012 Patient Education: Patient Medication Summary Completed 04/14/2012 Patient Education: Hypertension Completed 04/14/2012 Visit Plan: Rash- Discussed natural and expected course of this diagnosis and need to alert me if symtpoms do not follow expected course, or if any worse. RX sent to patient's pharmacy. 02/22/2012 App[facility]ment[phone] Other 02/22/2012 Patient Education: Patient Medication [...] this regimen. 01/13/2012 Appointment: Yoli Medley WPtel: [facility] [facility] Patient Preventative visit 01/13/2012 Patient Education: Patient [...] less controlled. 09/02/2011 Appointment: Yoli Medley WPtel: [facility] [facility] 09/02/2011 Patient Education: Patient Medication Summary Completed 09/02/2011 Patient Education: High Blood Pressure: Essential Hypertension Completed 2011 Appointment: Ginny Pearl WPtel: [phone] Lab Draw 08/06/2011 Patient Education: Patient Medication [...] bid. 08/05/2011 Appointment: Yoli Medley WPtel: [phone] Other 08/05/2011 Patient Education: Patient Medication [...] home. 07/01/2011 Appointment: Yoli Medley WPtel: [phone] [facility] Other 07/01/2011 Patient Education: Patient Medication Summary Completed 07/01/2011 Patient Education: High Blood Pressure: Essential Hypertension Completed 2011 Appointment: Y[facility] Medley [facility]Ptel: [phone] Lab Draw 06/25/2011 Patient Education: Patient Medication Summary Completed 06/25/2011 Patient Education: High Blood Pressure: Essential Hypertension Completed 2011 [facility]: [facility] [place] Referral Initiated Referral: Dangelo Ford Referral Initiated Instructions Comment . Parkinson's Disease - pt has diagnosis [...] bid if needed for persistent constipation. . Hypertension - continue with current medications, continue with no added salt diet. Pt has been encouraged to exercise daily. The pt has been advised to call the office if there are any acute concerns about change in blood pressure readings at home. Bilateral thyroid nodules-voice hoarseness-Dr Ford to do total thyroidectomy on Wednesday Hfmqlyavhd-evwfw-nzeogv-due to thyroid nodules-will monitor symptoms for now [...] Ford to do total thyroidectomy on Wednesday Wgrdlutgbx-msqxk-roqeky-due to thyroid nodules-will monitor symptoms for now check labs recommend shingles vaccine . . Hypertension - well controlled - continue with current medications, continue with no added salt diet. Pt has been encouraged to exercise daily. The pt has been advised to call the office if there are any acute concerns about change in blood pressure readings at home. Wswlureecmpqal-wsvzqdof-lsozssl medication increased by Dr Ford and wants us to manage-repeat in 3 months. . Diabetes Mellitus - controlled - per [...] folate. Pt declined flu shot today . Hypertension and Edema uncontrolled - Pt [...] should drop blood pressure. . Hypertension - continue with current medications, [...] CHECK LABS STOP EXTRA SODIUM REFER TO [facility] DX PARKINSONS, BACK [...] Low back pain, generalized weakness, Parkinsons Low lnejxq-uuoanxy-cj need for increase sodium intake Hypertension - [...] supportive care, no change to current treatment. check labs recommend shingles vaccine . Medicare [...] taking the new diuretic - SPIRONOLACTONE . Diarrhea - recommended bland diet, low fat diet, start on probiotic, and rehydrate with gatorade-like product. Pt to call if feeling worse, diarrhea becomes bloody, or does not improve with above recommendations. Pt to call for acute worsening of stomach upset or stomach pain. Probiotic twice daily. TRY HYDROCODONE FOR PAIN INSTEAD OF THE [...] Lab work- CBC, CMP, BNP . Abdominal lnjiekgz-aomfpqavrodn-FYU today Bronchitis - acute case of bronchitis [...] carbohydrates than he had been previously. . HTN-not optimally controlled-recommend patient start on [...] like to have his Oxygen company - [employer] patient - help with arranging oxygen when he is in [facility]. . Parkinsons disease - rx for sinemet 25/100mg 1/2 pill in morning and 1/2 pill in evening, pt to let us know if the symptoms improve. Referral to Miguel at [facility] for gait instability. Diabetes Mellitus - Uncontrolled [...] and gait instability - recommended christina at [facility] - continue with back brace as it [...] based on previous levels of control. . KT-vpwjlznz-rmvnvqsxngv today in the office-wound Instructions - Pt was instruced to keep the wound clean, wash with antibacterial soap, use triple antibiotic ointment, call if redness, pustular drainage, or any other acute conerns. . Diabetes Mellitus - I have recommended [...] at home. Low sodium-recheck labs today . Hypertension - well controlled - continue [...] to seek support for his arches via physician representative eval and perhaps arch supports to be [...]
--- OUTSIDE RECORDS SUMMARY | 2018-07-25 08:30 | XMS REPORT | CCD ---
Author Author [facility] Organization [facility] Address [address] [place] [address] Phone Care Team Providers Care Home Health Cna Name Role Phone PP Unavailable CCM Unavailable Summary Purpose Interface Exchange Insurance Providers Payer name Policy type / Coverage type Covered alliance party ID Effective Begin Date Effective End Date WPS Medicare Part B Medicare Part B [id number] Unknown [facility] INSUR Medicare Part B [id number] Unknown Family history Runs in the family Diagnosis Age At Onset Diabetes Unknown Mother Diagnosis Age At Onset Diabetes Unknown Hypertension Unknown Alzheimer's Disease Unknown Stroke Unknown Father Diagnosis Age At Onset No Family Disease Entered N/A Grandmother Diagnosis Age At Onset Alzheimer's Disease Unknown Social History Social History Element Codes Description Effective Dates Number of children Unknown 4 2 in [place], 2 in [place] 02/17/[address]: 5520396 Former smoker Quit in 195202/17/2018 Alcohol history Unknown occasionally drinks alcohol 02/17/2018 Frequency of drinks SNOMED CT: 891863539 Drinks rarely 02/17/2018 Employment Unknown 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 Unknown Has never used illegal drugs 07/02/2011 Marital status Unknown 07/01/2011 Living arrangements Unknown House 07/01/2011 Allergies, Adverse Reactions, Alerts Substance Reaction Codes Entered Date Inactivated Date Status feldene rash RxNorm: 8356 02/17/2018 No Inactive Date Active levaquin Unknown 02/17/2018 No Inactive Date Active bactrim rash RxNorm: 542936 02/17/2018 No Inactive Date Active CEPHALOSPORINS Unknown 03/19/2015 No Inactive Date Active PENICILLINS hives, Unknown 02/17/2018 No Inactive Date Active SULFA (SULFONAMIDE ANTIBIOTICS) rash, Unknown 02/17/2018 No Inactive Date Active TRIMETHOPRIM rash Unknown 02/17/2018 No Inactive Date Active Past Medical History Illness Codes Condition Status Onset Date Resolved Date Encounter for general adult medical examination with abnormal findings ICD-9: V70.0 ICD-10: Z00.01 Active 07/10/2016 Unknown Hypothyroidism, unspecified ICD-9: 244.9 ICD-10: E03.9 Active 07/10/2016 Unknown Type 2 diabetes mellitus with hyperglycemia ICD-9: 250.00 ICD-10: E11.65 Active 04/26/2016 Unknown Atrophy of thyroid (acquired) ICD-9: 244.8 ICD-10: E03.4 Active 05/13/2017 Unknown Essential (primary) hypertension ICD-9: 401.1 ICD-10: I10 Active 05/13/2017 Unknown Other specified polyneuropathies ICD-9: 356.8 ICD-10: G62.89 Active 01/11/2018 Unknown Parkinson's disease ICD-9: 332.0 ICD-10: G20 Active 11/24/2015 Unknown 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 ICD-9: 250.60 ICD-10: E11.43 Active 01/11/2018 Unknown Localized edema ICD-9 : 782.3 ICD-10: R60.0 Active 03/22/2016 Unknown Type 2 diabetes mellitus without complications ICD-9: 250.00 ICD-10: E11.9 Active 05/13/2017 Unknown Rash and other nonspecific skin eruption ICD-9: 782.1 ICD-10: R21 Active 04/28/2017 Unknown Essential (primary) hypertension ICD-9: 401.9 ICD-10: I10 Active 04/26/2016 Unknown Hypothryroidism Unknown Active 09/10/2016 Unknown Allergic [...] Problems Condition Codes Effective Dates Condition Status Encounter for general adult medical examination with abnormal findings ICD-9: V70.0 ICD-10: Z00.01 07/10/2016 Active Hypothyroidism, unspecified ICD-9: 244.9 ICD-10: E03.9 07/10/2016 Active Type 2 diabetes mellitus with hyperglycemia ICD-9: 250.00 ICD-10: E11.65 04/26/2016 Active Atrophy of thyroid (acquired) ICD-9: 244.8 ICD-10: E03.4 05/13/2017 Active Essential (primary) hypertension ICD-9: 401.1 ICD-10: I10 05/13/2017 Active Other specified polyneuropathies ICD-9: 356.8 ICD-10: G62.89 01/11/2018 Active Parkinson's disease ICD-9: 332.0 ICD-10: G20 11/24/2015 Active 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 ICD-9: 250.60 ICD-10: E11.43 01/11/2018 Active Localized edema ICD-9 : 782.3 ICD-10: R60.0 03/22/2016 Active Type 2 diabetes mellitus without complications ICD-9: 250.00 ICD-10: E11.9 05/13/2017 Active Rash and other nonspecific skin eruption ICD-9: 782.1 ICD-10: R21 04/28/2017 Active Essential (primary) hypertension ICD-9: 401.9 ICD-10: I10 04/26/2016 Active Hypothryroidism Unknown 09/10/2016 Active Allergic rhinitis [...] Start Date Stop Date Status Fill Instructions levothyroxine 175 mcg tablet RxNorm: 137123 Tablet(s) TAKE 1 TABLET BY MOUTH ONCE DAILY WED-WED, 1/2 TAB ON WEDNESDAY AND Wednesday03/02/2018 No Stop Date Active potassium chloride ER 10 mEq tablet,extended release(part/ cryst) RxNorm: 2058473 2 Tablet(s) PO daily x 3 days, then 1 pill three times a week when taking the lasix 02/01/2018 05/31/2018 Active finasteride 5 mg tablet RxNorm: 045721 1 Tablet(s) PO daily 07/30/2018 Active [SAVINGS FOR UNINSURED PATIENTS -- BIN:[id number], PCN: ASPROD1, Group: [id number], ID# [id number], Process claim through Marblar, for questions: . THIS IS NOT INSURANCE.] levothyroxine 175 mcg tablet RxNorm: 637425 TAKE 1 TABLET BY MOUTH ONCE DAILY 02/01/2018 03/01/2018 Inactive January Silver U-100 Insulin 100 unit/mL (3 mL) subcutaneous RxNorm: 6645167 24 Unit(s) SQ daily 12/29/201712/23 Active Lasix 20 mg tablet RxNorm: 431246 TAKE 1 TABLET ONCE DAILY FOR 1 WEEK AND THEN 1 TABLET EVERY 3 DAYS THEREAFTER 12/06/2017 09/01/2018 Active clotrimazole 1 % topical cream RxNorm: 560746 1 Application TOP BID to feet 09/16/2017 No Stop Date Active levothyroxine 175 mcg tablet RxNorm: 835316 TAKE ONE TABLET BY MOUTH ONCE DAILY 08/03/2017 01/31/2018 Inactive glipizide 10 mg tablet RxNorm: 532148 1 Tablet(s) PO BID 201711/03/2018 Active metformin ER 500 mg tablet,extended release 24 hr RxNorm: 368809 Tablet(s) TAKE ONE TABLET BY MOUTH TWICE DAILY 05/13/2017 05/07/2018 Active lisinopril 20 mg tablet RxNorm: 988654 Tablet(s) TAKE 1 TABLET BY MOUTH TWICE DAILY 05/13/2017 05/07/2018 Active Sinemet 25 mg-100 mg tablet RxNorm: 281034 Tablet(s) TAKE ONE TABLET BY MOUTH TWICE DAILY IN THE MORNING AND AT SUPPER 05/13/2017 05/07/2018 Active Basaglar KwikPen U-100 Insulin 100 unit/mL (3 mL) subcutaneous RxNorm: 2988631 24 Unit(s) SQ daily 05/13/201712/28 Inactive finasteride 5 mg tablet RxNorm: 129664 1 Tablet(s) PO daily 11/08/2017 Inactive [SAVINGS FOR UNINSURED PATIENTS -- BIN:[id number], PCN: ASPROD1, Group: [facility] , ID# [id number], Process claim through Marblar, for questions: . THIS IS NOT INSURANCE.] levothyroxine 175 mcg tablet RxNorm: 039213 1 Tablet(s) PO daily 05/13/2017 02/16/2018 Inactive Lasix 20 mg tablet RxNorm: 248691 Tablet(s) TAKE 1 TABLET BY MOUTH ONCE DAILY FOR 1 WEEK AND THEN TAKE 1 TABLET BY MOUTH EVERY 3 DAYS THEREAFTER 05/13/2017 07/27/2017 Inactive Basaglar KwikPen 100 unit/mL (3 mL) subcutaneous RxNorm: 2067268 24 Unit(s) SQ daily 05/07/2017 05/12/2017 Inactive Lasix 20 mg tablet RxNorm: 501502 2 Tablet(s) PO daily x 3 days, then 1 pill three times a week thereafter 04/28/2017 No Stop Date Active triamcinolone acetonide 0.025 % topical cream RxNorm: 3534462 1 Application TOP BID 04/28/2017 02/16/2018 Inactive clotrimazole 1 % topical cream RxNorm: 857890 1 Application TOP BID 04/28/2017 09/15/2017 Inactive potassium chloride ER 10 mEq tablet,extended release(part/ cryst) RxNorm: 6763111 2 Tablet(s) PO daily x 3 days, then 1 pill three times a week when taking the lasix 04/28/2017 08/25/2017 Inactive Lasix 20 mg tablet RxNorm: 529207 Tablet(s) TAKE 1 TABLET BY MOUTH ONCE DAILY FOR 1 WEEK AND THEN TAKE 1 TABLET BY MOUTH EVERY 3 DAYS THEREAFTER 04/22/2017 05/12/2017 Inactive Lantus Solostar 100 unit/mL (3 mL) subcutaneous insulin pen RxNorm: 603101 24 Unit(s) SQ daily INJECT 24 UNITS DAILY OR DIRECTED 201605/06/2017 Inactive 1 box of 5 pens Basaglar KwikPen 100 unit/mL (3 mL) subcutaneous RxNorm: 8566973 24 Unit(s) SQ daily 03/02/2017 05/06/2017 Inactive Basaglar KwikPen 100 unit/mL (3 mL) subcutaneous RxNorm: 1286957 24 Unit(s) SQ daily 03/02/2017 03/01/2017 Inactive levothyroxine 175 mcg tablet RxNorm: 217671 1 Tablet(s) PO daily 02/02/2017 05/12/2017 Inactive Sinemet 25 mg-100 mg tablet RxNorm: 780582 TAKE ONE TABLET BY MOUTH TWICE DAILY IN THE MORNING AND AT SUPPER 12/30/2016 Inactive metformin ER 500 mg tablet,extended release 24 hr RxNorm: 550379 Tablet(s) TAKE ONE TABLET BY MOUTH TWICE DAILY 11/10/2016 05/12/2017 Inactive lisinopril 20 mg tablet RxNorm: 808935 Tablet(s) TAKE 1 TABLET BY MOUTH TWICE DAILY 11/10/2016 05/12/2017 Inactive levothyroxine 150 mcg tablet RxNorm: 347664 1 Tablet(s) PO daily 11/05/2016 02/01/2017 Inactive PLEASE LET PATIENT KNOW WE ARE GIVING HIM 150MCG INSTEAD OF 100MCG SO HE JUST TAKES 1 TAB DAILY. THANKS! Lantus Solostar 100 unit/mL (3 mL) subcutaneous insulin pen RxNorm: 992300 24 Unit(s) SQ daily INJECT 24 UNITS DAILY OR DIRECTED 201603/01/2017 Inactive 1 box of 5 pens Lantus Solostar 100 unit/mL (3 mL) subcutaneous insulin pen RxNorm: 606173 24 Unit(s) SQ daily INJECT 24 UNITS DAILY OR DIRECTED 201610/06/2016 Inactive please call patient with the [facility] levothyroxine 100 mcg tablet RxNorm: 468725 1.5 Tablet(s) PO daily 10/05/2016 11/04/2016 Inactive metformin ER 500 mg tablet,extended release 24 hr RxNorm: 634305 Tablet(s) TAKE ONE TABLET BY MOUTH TWICE DAILY 09/29/2016 11/09/2016 Inactive prednisone 20 mg tablet RxNorm: 443035 1 Tablet(s) PO BID 08/0608/10/2016 Inactive Kenalog 40 mg/mL suspension for injection RxNorm: 3907978 1 Milliliter(s) Inj 07/30/2016 07/30/2016 Inactive doxycycline hyclate 100 mg tablet RxNorm: 077039 1 Tablet(s) PO BID 07/30/2016 08/05/2016 Inactive glipizide 10 mg tablet RxNorm: 155817 1 Tablet(s) PO BID 201605/12/2017 Inactive Sinemet 25 mg-100 mg tablet RxNorm: 209816 TABLET(S) TAKE 1 TABLET BY MOUTH TWICE A DAY IN THE MORNING AND AT SUPPER 05/11/2016 11/06/2016 Inactive Patient requests 90 days supply metformin ER 500 mg tablet,extended release 24 hr RxNorm: 416882 TAKE ONE TABLET BY MOUTH TWICE DAILY 05/04/20162016 Inactive lisinopril 20 mg tablet RxNorm: 637682 TAKE 1 TABLET BY MOUTH TWICE DAILY 04/14/2016 11/09/2016 Inactive Sinemet 25 mg-100 mg tablet RxNorm: 286476 1 Tablet(s) PO BID TAKE 1 TABLET BY MOUTH TWICE A DAY IN THE MORNING AND AT SUPPER 03/23/2016 02/16/2018 Inactive Lasix 20 mg tablet RxNorm: 461319 Tablet(s) TAKE 1 TABLET BY MOUTH ONCE DAILY FOR 1 WEEK AND THEN TAKE 1 TABLET BY MOUTH EVERY 3 DAYS THEREAFTER 03/23/2016 06/06/2016 Inactive Lantus Solostar 100 unit/mL (3 mL) subcutaneous insulin pen RxNorm: 706618 24 Unit(s) SQ daily INJECT 24 UNITS DAILY OR DIRECTED 201510/05/2016 Inactive please call patient with the [facility] hydrocodone 5 mg-acetaminophen 325 mg tablet RxNorm: 687626 1-2 Tablet(s) PO Q6- 8H 01/21/2016 02/16/2018 Inactive Kenalog 40 mg/mL suspension for injection RxNorm: 3883184 1 Milliliter(s) Inj 01/20/2016 01/20/2016 Inactive Sinemet 25 mg-100 mg tablet RxNorm: 023990 Tablet(s) TAKE 1 TABLET BY MOUTH TWICE A DAY IN THE MORNING AND AT SUPPER 11/29/2015 03/22/2016 Inactive Lantus Solostar 100 unit/mL (3 mL) subcutaneous insulin pen RxNorm: 702153 20 Unit(s) SQ daily INJECT 20 UNITS DAILY OR DIRECTED 201501/20/2016 Inactive please call patient with the [facility] Sinemet 25 mg-100 mg tablet RxNorm: 075752 Tablet(s) TAKE 1 TABLET BY MOUTH TWICE A DAY IN THE MORNING AND AT SUPPER 11/22/2015 11/28/2015 Inactive Lantus Solostar 100 unit/mL (3 mL) subcutaneous insulin pen RxNorm: 450735 Unit( s) INJECT 20 UNITS DAILY OR DIRECTED 11/22/2015 11/24/2015 Inactive Lantus Solostar 100 unit/mL (3 mL) subcutaneous insulin pen RxNorm: 600100 INJECT 20 UNITS DAILY OR DIRECTED 09/27/2015 11/21/2015 Inactive Lasix 20 mg tablet RxNorm: 584562 TAKE 1 TABLET BY MOUTH ONCE DAILY FOR 1 WEEK AND THEN TAKE 1 TABLET BY MOUTH EVERY 3 DAYS THEREAFTER 09/2512/10/2015 Inactive Lasix 20 mg tablet RxNorm: 666105 1 Tablet(s) PO daily 201509/25/2015 Inactive glipizide 10 mg tablet RxNorm: 987098 1 Tablet(s) BID TAKE 1 TABLET BY MOUTH DAILY. 06/25/2015 06/28/2016 Inactive metformin ER 500 mg tablet,extended release 24 hr RxNorm: 610895 1 Tablet(s) PO BID 04/01/2015 05/05/2016 Inactive lisinopril 20 mg tablet RxNorm: 557253 Tablet(s) TAKE 1 TABLET BY MOUTH TWICE DAILY. 03/25/2015 07/22/2015 Inactive metformin ER 500 mg tablet,extended release 24 hr RxNorm: 227988 1 Tablet(s) PO BID 03/25/2015 03/31/2015 Inactive doxycycline hyclate 100 mg capsule RxNorm: 2131553 1 Capsule(s) PO BID 03/19/2015 04/01/2015 Inactive Sinemet 25 mg-100 mg tablet RxNorm: 666271 TAKE 1 TABLET BY MOUTH TWICE A DAY IN THE MORNING AND AT SUPPER 03/05/201511/20 Inactive doxycycline hyclate 100 mg capsule RxNorm: 5981773 1 Capsule(s) PO BID 02/20/2015 02/26/2015 Inactive metolazone 5 mg tablet RxNorm: 878383 1 Tablet(s) PO daily 07/201403/21/2015 Inactive spironolactone 50 mg tablet RxNorm: 083066 1 Tablet(s) PO daily 02/11/2015 01/02/2016 Inactive Efudex 5 % topical cream RxNorm: 008991 1 TOP BID 01/28/2015 02/10/2015 Inactive potassium chloride ER 10 mEq tablet,extended release(part/ cryst) RxNorm: 9193776 1 Tablet(s) PO daily x 1week then three times weekly with the lasix. 01/28/2015 05/27/2015 Inactive Lasix 20 mg tablet RxNorm: 256749 1 Tablet(s) PO daily x 1 week, then every three days thereafter 01/28/20152015 Inactive lisinopril 20 mg tablet RxNorm: 284890 Tablet(s) TAKE 1 TABLET BY MOUTH TWICE DAILY. 11/23/2014 03/22/2015 Inactive lisinopril 20 mg tablet RxNorm: 071997 TAKE 1 TABLET BY MOUTH TWICE DAILY. 11/22/2014 11/22/2014 Inactive Sinemet 25 mg-100 mg tablet RxNorm: 777691 1 Tablet(s) PO BID TAKE 1 TABLET BY MOUTH TWICE A DAY IN THE MORNING AND AT SUPPER 10/01/2014 03/04/2015 Inactive [ SAVINGS FOR UNINSURED PATIENTS -- BIN:194443, PCN: ASPROD1, Group: [id number], ID# [id number], Process claim through Marblar, for questions: . THIS IS NOT INSURANCE.] glipizide 10 mg tablet RxNorm: 828321 1 Tablet(s) BID TAKE 1 TABLET BY MOUTH DAILY. 10/01/2014 06/24/2015 Inactive glipizide 10 mg tablet RxNorm: 895540 Tablet(s) daily TAKE 1 TABLET BY MOUTH DAILY. 08/06/2014 09/30/2014 Inactive Lantus Solostar 100 unit/mL (3 mL) subcutaneous insulin pen RxNorm: 450695 20 Unit(s) SQ daily 07/11/2014 09/26/2015 Inactive [SAVINGS FOR UNINSURED PATIENTS -- BIN:153243, PCN: ASPROD1, Group: [id number], ID# [id number], Process claim through Marblar, for questions: . THIS IS NOT INSURANCE.] metformin ER 500 mg tablet,extended release 24 hr RxNorm: 453236 1 Tablet(s) PO BID 07/10/2014 03/24/2015 Inactive lisinopril 20 mg tablet RxNorm: 184682 Tablet(s) TAKE 1 TABLET BY MOUTH TWICE DAILY. 07/10/2014 11/21/2014 Inactive Lantus Solostar 100 unit/mL (3 mL) subcutaneous insulin pen RxNorm: 762073 20 Unit(s) SQ daily 05/30/2014 07/10/2014 Inactive [SAVINGS FOR UNINSURED PATIENTS -- BIN:334989, PCN: ASPROD1, Group: [id number], ID# [id number], Process claim through Marblar, for questions: . THIS IS NOT INSURANCE.] Sinemet 25 mg-100 mg tablet RxNorm: 709438 Tablet(s) TAKE 1 TABLET BY MOUTH TWICE A DAY IN THE MORNING AND AT SUPPER 05/30/2014 09/30/2014 Inactive [SAVINGS FOR UNINSURED PATIENTS -- BIN:966229, PCN: ASPROD1, Group: [id number], ID# [id number], Process claim through Marblar, for questions: . THIS IS NOT INSURANCE.] lisinopril 20 mg tablet RxNorm: 638906 TAKE 1 TABLET BY MOUTH TWICE DAILY. 04/09/2014 04/08/2014 Inactive glipizide 10 mg tablet RxNorm: 588182 TAKE 1 TABLET BY MOUTH TWICE DAILY. 04/09/2014 08/05/2014 Inactive glipizide 10 mg tablet RxNorm: 396543 TAKE 1 TABLET BY MOUTH TWICE DAILY. 04/09/2014 04/08/2014 Inactive lisinopril 20 mg tablet RxNorm: 672335 TAKE 1 TABLET BY MOUTH TWICE DAILY. 04/09/2014 07/09/2014 Inactive lisinopril 20 mg tablet RxNorm: 452832 Tablet(s) TAKE ONE TABLET BY MOUTH TWICE DAILY 04/06/2014 04/08/2014 Inactive [SAVINGS FOR UNINSURED PATIENTS -- BIN:677885 , PCN: ASPROD1, Group: [id number], ID# [id number], Process claim through MedImpact, for questions: . THIS IS NOT INSURANCE.] glipizide 10 mg tablet RxNorm: 790366 1 Tablet(s) PO BID 201304/08/2014 Inactive [SAVINGS FOR UNINSURED PATIENTS -- BIN:161878, PCN: ASPROD1, Group: [id number], ID # [id number], Process claim through MedImpact, for questions: . THIS IS NOT INSURANCE.] pravastatin 10 mg tablet RxNorm: 282358 TAKE ONE TABLET BY MOUTH EVERY DAY 02/26/2014 05/26/2014 Inactive Sinemet 25 mg-100 mg tablet RxNorm: 860815 TAKE 1 TABLET BY MOUTH TWICE A DAY IN THE MORNING AND AT SUPPER 01/26/201401/25 Inactive Sinemet 25 mg-100 mg tablet RxNorm: 597604 Tablet(s) TAKE 1 TABLET BY MOUTH TWICE A DAY IN THE MORNING AND AT SUPPER 01/26/2014 05/29/2014 Inactive [SAVINGS FOR UNINSURED PATIENTS -- BIN:670328, PCN: ASPROD1, Group: [id number], ID# [id number], Process claim through MedImpact, for questions: . THIS IS NOT INSURANCE.] Sinemet 25 mg-100 mg tablet RxNorm: 072100 TAKE 1 TABLET BY MOUTH TWICE A DAY IN THE MORNING AND AT SUPPER 01/26/201401/25 Inactive Sinemet 25 mg-100 mg tablet RxNorm: 393735 TAKE 1 TABLET BY MOUTH TWICE A DAY IN THE MORNING AND AT SUPPER 01/26/201401/25 Inactive pantoprazole 40 mg tablet,delayed release RxNorm: 472100 TAKE 1 TABLET DAILY 01/25/2014 10/07/2016 Inactive finasteride 5 mg tablet RxNorm: 922444 1 Tablet(s) PO daily 12/201309/30/2014 Inactive [SAVINGS FOR UNINSURED PATIENTS -- BIN:958324, PCN: ASPROD1, Group: [id number] , ID# [id number], Process claim through MedImpact, for questions: . THIS IS NOT INSURANCE.] sucralfate 100 mg/mL oral suspension RxNorm: 930547 10 Milliliter(s) PO QID 01/23/2014 09/30/2014 Inactive dispense qs x 1 month lisinopril 20 mg tablet RxNorm: 892409 TAKE ONE TABLET BY MOUTH TWICE DAILY 12/27/2013 03/26/2014 Inactive pantoprazole 40 mg tablet,delayed release RxNorm: 002335 1 Tablet(s) PO daily 12/26/2013 12/25/2013 Inactive [SAVINGS FOR UNINSURED PATIENTS -- BIN:821105, PCN: ASPROD1, Group: [id number], ID# [id number], Process claim through MedImpact, for questions: . THIS IS NOT INSURANCE.] pantoprazole 40 mg tablet,delayed release RxNorm: 896283 1 Tablet(s) PO daily 12/26/2013 12/20/2014 Inactive [SAVINGS FOR UNINSURED PATIENTS -- BIN:932807, PCN: ASPROD1, Group: [id number], ID# [id number], Process claim through MedImpact, for questions: . THIS IS NOT INSURANCE.] gemfibrozil 600 mg tablet RxNorm: 807421 1 Tablet(s) PO BID 11/201310/23/2013 Inactive gemfibrozil 600 mg tablet RxNorm: 513695 1 Tablet(s) PO BID 11/201309/30/2014 Inactive [SAVINGS FOR UNINSURED PATIENTS -- BIN:931410, PCN: ASPROD1, Group: [id number] , ID# [id number], Process claim through MedImpact, for questions: . THIS IS NOT INSURANCE.] finasteride 5 mg tablet RxNorm: 995532 1 Tablet(s) PO daily 04/201301/24/2014 Inactive [SAVINGS FOR UNINSURED PATIENTS -- BIN:640760, PCN: ASPROD1, Group: [id number] , ID# [id number], Process claim through MedImpact, for questions: . THIS IS NOT INSURANCE.] Lantus Solostar 100 unit/mL (3 mL) subcutaneous insulin pen RxNorm: 680761 20 Unit(s) SQ daily 10/09/2013 05/29/2014 Inactive [SAVINGS FOR UNINSURED PATIENTS -- BIN:948053, PCN: ASPROD1, Group: [id number], ID# [id number], Process claim through MedImpact, for questions: . THIS IS NOT INSURANCE.] glipizide 10 mg tablet RxNorm: 154216 1 Tablet(s) PO daily 04/05/2014 Inactive [SAVINGS FOR UNINSURED PATIENTS -- BIN:232046, PCN: ASPROD1, Group: [id number] , ID# [id number], Process claim through MedImpact, for questions: . THIS IS NOT INSURANCE.] Lantus Solostar 100 unit/mL (3 mL) subcutaneous insulin pen RxNorm: 298771 20 Unit(s) SQ daily 07/18/2013 10/08/2013 Inactive Sinemet 25 mg-100 mg tablet RxNorm: 846836 1 Tablet(s) PO BID one pill in morning , one at supper 07/10/2013 01/25/2014 Inactive Sinemet 25 mg-100 mg tablet RxNorm: 997358 1 Tablet(s) PO BID one pill in morning , one at supper 04/24/2013 07/09/2013 Inactive metformin ER 500 mg tablet,extended release 24 hr RxNorm: 442130 1 Tablet(s) PO BID 04/24/2013 04/18/2014 Inactive glipizide 10 mg tablet RxNorm: 139568 1 Tablet(s) PO daily 09/201310/08/2013 Inactive lisinopril 20 mg tablet RxNorm: 100484 1 Tablet(s) PO BID 04/2410/20/2013 Inactive pravastatin 10 mg tablet RxNorm: 743917 1 Tablet(s) PO daily 10/20/2013 Inactive Lantus Solostar 100 unit/mL (3 mL) subcutaneous insulin pen RxNorm: 064463 20 Unit(s) SQ daily 04/24/2013 07/17/2013 Inactive glipizide 10 mg tablet RxNorm: 442242 1 Tablet(s) PO daily 05/201304/23/2013 Inactive glipizide 10 mg tablet RxNorm: 593057 1 Tablet(s) PO daily 05/201204/19/2013 Inactive Lantus Solostar 100 unit/mL (3 mL) subcutaneous insulin pen RxNorm: 207255 16 Unit(s) SQ daily 03/20/2013 04/23/2013 Inactive Sinemet 25 mg-100 mg tablet RxNorm: 066132 1 Tablet(s) PO BID one pill in morning , one at supper 01/20/2013 04/23/2013 Inactive Lantus Solostar 100 unit/mL (3 mL) subcutaneous insulin pen RxNorm: 987104 16 Unit(s) SQ daily 01/19/2013 01/25/2013 Inactive Sinemet 25 mg-100 mg tablet RxNorm: 097909 1 Tablet(s) PO BID one pill in morning , one at supper 01/19/2013 01/19/2013 Inactive glipizide 10 mg tablet RxNorm: 712421 1 Tablet(s) PO BID 201203/19/2013 Inactive Lantus Solostar 100 unit/mL (3 mL) Sub-Q Insulin Pen RxNorm: 889420 12 Unit(s) SQ daily 12/21/2012 01/18/2013 Inactive lisinopril 20 mg tablet RxNorm: 019110 1 Tablet(s) PO BID 12/0804/23/2013 Inactive metformin ER 500 mg tablet,extended release 24 hr RxNorm: 701270 1 Tablet(s) PO BID 11/30/2012 04/23/2013 Inactive Lantus Solostar 100 unit/mL (3 mL) Sub-Q Insulin Pen RxNorm: 037312 5 Unit(s) SQ daily 11/30/2012 12/07/2012 Inactive FINASTERIDE TAB 5MG RxNorm: 10/03/2012 Inactive lisinopril 20 mg tablet RxNorm: 725692 1 Tablet(s) PO BID 09/0812/06/2012 Inactive glipizide 10 mg tablet RxNorm: 449973 1 Tablet(s) PO BID 201212/30/2012 Inactive metronidazole 500 mg tablet RxNorm: 232669 1 Tablet(s) PO TID 05/30/2012 06/08/2012 Inactive metformin ER 500 mg tablet,extended release 24 hr RxNorm: 454191 2 Tablet(s) PO daily 04/22/2012 11/29/2012 Inactive metformin ER 500 mg tablet,extended release 24 hr RxNorm: 037706 2 Tablet(s) PO daily 04/21/2012 04/21/2012 Inactive ketoconazole 2 % Topical Cream RxNorm: 322831 1 Application TOP BID 04/14/2012 05/04/2012 Inactive ketoconazole 2 % Shampoo RxNorm: 224354 1 Application TOP every other day apply to feet, leave on for 5 minutes, then rinse. 04/14/2012 04/27/2012 Inactive clotrimazole 1 % Topical Cream RxNorm: 115929 1 Application TOP BID 02/22/2012 04/03/2012 Inactive glipizide 10 mg tablet RxNorm: 110828 1 Tablet(s) PO BID 201106/18/2012 Inactive lisinopril 20 mg tablet RxNorm: 844759 1 Tablet(s) PO BID 09/0108/26/2012 Inactive metformin ER 500 mg tablet,extended release 24 hr RxNorm: 306172 2 Tablet(s) PO daily 08/10/2011 04/20/2012 Inactive metformin ER 1,000 mg 24 hr Tab Ctrl Rel RxNorm: 366237 1 Tablet(s) PO daily 07/28/2011 08/09/2011 Inactive Kombiglyze XR 5 mg-1,000 mg 24 hr Tab RxNorm: 2898201 1 Tablet(s) PO daily 07/28/2011 07/27/2011 Inactive Kombiglyze XR 5 mg-1,000 mg 24 hr Tab RxNorm: 2825710 1 Tablet(s) PO daily 07/28/2011 07/28/2011 Inactive glipizide 10 mg tablet RxNorm: 319449 1 Tablet(s) PO BID 201107/27/2011 Inactive glipizide 10 mg Tab RxNorm: 969398 1 Tablet(s) PO BID 201106/16/2011 Inactive glipizide 10 mg Tab RxNorm: 727380 1 Tablet(s) PO BID 201006/15/2011 Inactive glipizide 10 mg Tab RxNorm: 732639 1 Tablet(s) PO BID 201004/01/2011 Inactive glipizide 10 mg Tab RxNorm: 152609 Tablet(s) PO BID 201003/31/2011 Inactive Calcium + Vitamin D 600 mg calcium-200 unit tablet RxNorm: 261725 1 Tablet(s) PO BID No Start Date Active pantoprazole 40 mg tablet,delayed release RxNorm: 928937 1 Tablet(s) PO daily No Start Date 12/25/2013 Inactive Sinemet 25 mg-100 mg tablet RxNorm: 320736 1/2 Tablet(s) PO BID one pill in morning, one at supper No Start Date 01/18 Inactive levothyroxine 100 mcg tablet RxNorm: 332271 1 Tablet(s) PO daily No Start Date 10/04/2016 Inactive lisinopril 20 mg Tab RxNorm: 552608 1 Tablet(s) PO BID No Start Date 09/01/2011 Inactive hydrocodone 5 mg-acetaminophen 325 mg tablet RxNorm: 374449 1-2 Tablet(s) PO Q6- 8H No Start Date 01/20/2016 Inactive pravastatin 10 mg tablet RxNorm: 851058 1 Tablet(s) PO daily No Start Date 04/23/2013 Inactive Medication Administered Medication Codes Instructions Start Date Status Kenalog 40 mg/mL suspension for injection RxNorm: 2495920 1Milliliter 07/30/2016 No longer Active Kenalog 40 mg/mL suspension for injection RxNorm: [id number] 1Milliliter 01/20/2016 No longer Active Immunizations Vaccine Codes Date Status PPD Unknown 03/20/2015 completed Pneumococcal (Adult) CVX: 133 03/08/2015 completed Pneumococcal (Adult) CVX: 33 01/23/2014 completed Influenza CVX: 141 01/19/2013 completed Assessments Condition Codes Effective Dates Encounter for general adult medical examination with abnormal findings ICD-10: Z00.01 ICD-9: V70.0 02/17/2018 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 ICD-9: 244.8 01/11/2018 Other specified polyneuropathies ICD-10: G62.89 ICD-9: 356.8 01/11/2018 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 ICD-9: 250.60 01/11/2018 Type 2 diabetes mellitus with hyperglycemia ICD-10: E11.65 ICD-9: 250.00 01/11/2018 Parkinson's disease ICD-10: G20 ICD-9: 332.0 01/11/2018 Essential (primary) hypertension ICD-10: I10 ICD-9: 401.1 01/11/2018 Localized edema ICD-10: R60.0 ICD-9: 782.3 05/13/2017 Type 2 diabetes mellitus without complications ICD-10: E11.9 ICD-9: 250.00 05/13/2017 Rash and other nonspecific skin eruption ICD-10: R21 ICD-9: 782.1 04/28/2017 Hypothyroidism, unspecified ICD-10: E03.9 ICD-9: 244.9 02/04/2017 Essential (primary) hypertension ICD-10: I10 ICD-9: 401.9 02/04/2017 Allergic rhinitis due to pollen ICD-10: [...] Visit Reason For Visit Effective Dates Notes Annual Medicare Wellness Exam 02/17/2018 hypothyroid 01/11/2018 [...] Code Item Item Code Result Date %Hba1C Fwo104 % HbA1c 40046-7 7.1 % 02/17/2018 %Hba1C Agf596 Gluc Ave 157 mg/dL 02/17/2018 Comp Metabolic Iej543 NA 135 mEq/L 02/17/2018 Comp Metabolic Jzi624 K 4.7 mEq/L 02/17/2018 Comp Metabolic Lhx611 CL 97 mEq/L 02/17/2018 Comp Metabolic Kyi299 CO2 27.0 mEq/L 02/17/2018 Comp Metabolic Oso475 ANION GAP 16 02/17/2018 Comp Metabolic Qzo110 GLUCOSE 141 mg/dL 02/17/2018 Comp Metabolic Vyb400 Creat 1.5 mg/dL 02/17/2018 Comp Metabolic Goy479 eGFR 48 ml/min/1.73m2 02/17/2018 Comp Metabolic Kgj450 BUN 29 mg/dL 02/17/2018 Comp Metabolic Bja979 B/C Ratio 19.5 Ratio 02/17/2018 Comp Metabolic Yyp817 CALCIUM 9.4 mg/dL 02/17/2018 Comp Metabolic Tol161 ALK PHOS 57 U/L 02/17/2018 Comp Metabolic Jwg618 AST(SGOT) 13 U/L 02/17/2018 Comp Metabolic Zzk574 ALT(SGPT) 4 U/L 02/17/2018 Comp Metabolic Tch472 BILI T 0.6 mg/dL 02/17/2018 Comp Metabolic Hsg220 ALBUMIN 4.2 g/dL 02/17/2018 Comp Metabolic Ymg742 TPRO 6.7 g/dL 02/17/2018 Comp Metabolic Yzj983 GLOB 2.5 g/dL 02/17/2018 Comp Metabolic Pxz402 A/G Ratio 1.7 Ratio 02/17/2018 Comp Metabolic Ipt025 Osmo 278 mOsmo 02/17/2018 Tsh Ord6 TSH (3rd IS) 3.10 uIU/mL 02/17/2018 Free T4 Lwd573 FREE T4 1.36 ng/dL 02/17/2018 Folate Ord36 Folate 19.00 ng/mL 01/11/2018 B12 Ibl105 B12 342.00 pg/ml 01/11/2018 Comp Metabolic Fsp218 NA 134 mEq/L 09/17/2017 Comp Metabolic Sig500 K 4.4 mEq/L 09/17/2017 Comp Metabolic Ekt360 CL 98 mEq/L 09/17/2017 Comp Metabolic Rqw197 CO2 25.0 mEq/L 09/17/2017 Comp Metabolic Klt475 ANION GAP 15 09/17/2017 Comp Metabolic Dpq956 GLUCOSE 97 mg/dL 09/17/2017 Comp Metabolic Rmh496 Creat 1.7 mg/dL 09/17/2017 Comp Metabolic Dbi750 eGFR 40 ml/min/1.73m2 09/17/2017 Comp Metabolic Zwa273 BUN 28 mg/dL 09/17/2017 Comp Metabolic Rlz305 B/C Ratio 16.2 Ratio 09/17/2017 Comp Metabolic Per517 CALCIUM 9.1 mg/dL 09/17/2017 Comp Metabolic Egi132 ALK PHOS 76 U/L 09/17/2017 Comp Metabolic Eey685 AST(SGOT) 17 U/L 09/17/2017 Comp Metabolic Upx508 ALT(SGPT) 15 U/L 09/17/2017 Comp Metabolic Tro879 BILI T 0.7 mg/dL 09/17/2017 Comp Metabolic Rlz447 ALBUMIN 4.1 g/dL 09/17/2017 Comp Metabolic Ewh117 TPRO 6.9 g/dL 09/17/2017 Comp Metabolic Imx255 GLOB 2.8 g/dL 09/17/2017 Comp Metabolic Cja181 A/G Ratio 1.5 Ratio 09/17/2017 Comp Metabolic Hve953 Osmo 274 mOsmo 09/17/2017 Free T4 Aes076 FREE T4 1.10 ng/dL 09/17/2017 Tsh Ord6 [...] 61.5 % 09/17/2017 Cbc With Differential Ord2 Lymph% 26.3 % 09/17/2017 Cbc With Differential Ord2 MCV 93.8 fl 09/17/2017 Cbc With Differential Ord2 MCH 31.5 pg 09/17/2017 Cbc With Differential Ord2 [place]% 9.5 % 09/17/2017 Cbc With Differential Ord2 Eos% 2.4 % 09/17/2017 Cbc With Differential Ord2 MCHC 33.6 pg 09/17/2017 Cbc With Differential Ord2 PLT 181 K/ul 09/17/2017 Cbc With Differential Ord2 Baso% 0.3 % 09/17/2017 Cbc With Differential Ord2 RDW 13.5 % 09/17/2017 Cbc With Differential Ord2 Neut ABS# 4.52 K/ul 09/17/2017 Cbc With Differential Ord2 Lymph ABS# 1.93 K/ul 09/17/2017 Cbc With Differential Ord2 [place] ABS# 0.7 K/ul 09/17/2017 Cbc With Differential Ord2 Eos ABS# 0.2 K/ul 09/17/2017 Cbc With Differential Ord2 Baso ABS# 0.0 K/ul 09/17/2017 %Hba1C Ewe729 % HbA1c 59871-2 6.8 % 09/17/2017 %Hba1C Pxr699 Gluc Ave 148 mg/dL 09/17/2017 %Hba1C Dco074 % HbA1c 39754-4 7.0 % 05/13/2017 %Hba1C Cic192 Gluc Ave 154 mg/dL 05/13/2017 Free T4 Gic814 FREE T4 1.29 ng/dL 05/13/2017 Tsh Ord6 TSH (3rd IS) 4.14 uIU/mL 05/13/2017 Tsh Ord6 hTSH II 9.43 uIU/mL 02/02/2017 Comp Metabolic Xlv879 NA 134 mEq/L 02/02/2017 Comp Metabolic Ggd257 K 4.4 mEq/L 02/02/2017 Comp Metabolic Akt990 CL 99 mEq/L 02/02/2017 Comp Metabolic Ddk311 CO2 26.0 mEq/L 02/02/2017 Comp Metabolic Nqq882 ANION GAP 13 02/02/2017 Comp Metabolic Wdm286 GLUCOSE 256 mg/dL 02/02/2017 Comp Metabolic Nqs646 Creat 1.6 mg/dL 02/02/2017 Comp Metabolic Uvt416 eGFR 45 ml/min/1.73m2 02/02/2017 Comp Metabolic Tko569 BUN 26 mg/dL 02/02/2017 Comp Metabolic Aac142 B/C Ratio 16.6 Ratio 02/02/2017 Comp Metabolic Vlr680 CALCIUM 8.7 mg/dL 02/02/2017 Comp Metabolic Ecr619 ALK PHOS 63 U/L 02/02/2017 Comp Metabolic Zig981 AST(SGOT) 11 U/L 02/02/2017 Comp Metabolic Amp791 ALT(SGPT) 9 U/L 02/02/2017 Comp Metabolic Jgc326 BILI T 0.5 mg/dL 02/02/2017 Comp Metabolic Qxl659 ALBUMIN 3.7 g/dL 02/02/2017 Comp Metabolic Lrn189 TPRO 6.1 g/dL 02/02/2017 Comp Metabolic Vts716 GLOB 2.4 g/dL 02/02/2017 Comp Metabolic Pxe195 A/G Ratio 1.6 Ratio 02/02/2017 Comp Metabolic Pnh620 Osmo 282 mOsmo 02/02/2017 %Hba1C Aww544 % HbA1c 87521-0 7.5 % 02/02/2017 %Hba1C Joy330 Gluc Ave 169 mg/dL 02/02/2017 Free T4 Sfi052 FREE T4 1.23 ng/dL 02/02/2017 Cbc With [...] 93.0 fl 02/02/2017 Cbc With Differential Ord2 [place]% 9.6 % 02/02/2017 Cbc With Differential Ord2 [...] 2.61 K/ul 02/02/2017 Cbc With Differential Ord2 [place] ABS# 0.8 K/ul 02/02/2017 Cbc With Differential Ord2 Eos ABS# 0.2 K/ul 02/02/2017 Cbc With Differential Ord2 Baso ABS# 0.1 K/ul 02/02/2017 Total T3 Ord42 TT3 0.59 ng/ml 07/14/2016 Free T4 Zgf406 FREE T4 1.14 ng/dL 07/14/2016 Cbc With [...] 31.8 pg 06/22/2016 Cbc With Differential Ord2 [place]% 9.9 % 06/22/2016 Cbc With Differential Ord2 Eos% 3.3 % 06/22/2016 Cbc With Differential Ord2 MCHC 33.6 pg 06/22/2016 Cbc With Differential Ord2 Baso% 0.3 % 06/22/2016 Cbc With Differential Ord2 PLT 165 K/ul 06/22/2016 Cbc With Differential Ord2 Neut ABS# 3.56 K/ul 06/22/2016 Cbc With Differential Ord2 RDW 13.9 % 06/22/2016 Cbc With Differential Ord2 Lymph ABS# 2.41 K/ul 06/22/2016 Cbc With Differential Ord2 [place] ABS# 0.7 K/ul 06/22/2016 Cbc With Differential Ord2 Eos ABS# 0.2 K/ul 06/22/2016 Cbc With Differential Ord2 Baso ABS# 0.0 K/ul 06/22/2016 Comp Metabolic Jhq081 NA 134 mEq/L 06/22/2016 Comp Metabolic Jew505 K 4.3 mEq/L 06/22/2016 Comp Metabolic Vdz008 CL 100 mEq/L 06/22/2016 Comp Metabolic Leo448 CO2 26.0 mEq/L 06/22/2016 Comp Metabolic Cpg953 ANION GAP 12 06/22/2016 Comp Metabolic Yrd054 GLUCOSE 222 mg/dL 06/22/2016 Comp Metabolic Kur571 Creat 1.5 mg/dL 06/22/2016 Comp Metabolic Mhs952 eGFR 49 ml/min/1.73m2 06/22/2016 Comp Metabolic Ajz333 BUN 23 mg/dL 06/22/2016 Comp Metabolic Zuq307 B/C Ratio 15.9 Ratio 06/22/2016 Comp Metabolic Uoz106 CALCIUM 9.0 mg/dL 06/22/2016 Comp Metabolic Xlq094 ALK PHOS 59 U/L 06/22/2016 Comp Metabolic Zxd878 AST(SGOT) 13 U/L 06/22/2016 Comp Metabolic Lne032 ALT(SGPT) 11 U/L 06/22/2016 Comp Metabolic Haf586 BILI T 0.5 mg/dL 06/22/2016 Comp Metabolic Xzy740 ALBUMIN 3.8 g/dL 06/22/2016 Comp Metabolic Ram684 TPRO 6.2 g/dL 06/22/2016 Comp Metabolic Sxm012 GLOB 2.4 g/dL 06/22/2016 Comp Metabolic Wen716 A/G Ratio 1.6 Ratio 06/22/2016 Comp Metabolic Qfl300 Osmo 279 mOsmo 06/22/2016 Tsh Ord6 hTSH II 0.44 uIU/mL 06/22/2016 Comp Metabolic Fdj453 NA 134 mEq/L 04/27/2016 Comp Metabolic Odc040 K 4.6 mEq/L 04/27/2016 Comp Metabolic Iji965 CL 99 mEq/L 04/27/2016 Comp Metabolic Dld879 CO2 27.0 mEq/L 04/27/2016 Comp Metabolic Odb595 ANION GAP 13 04/27/2016 Comp Metabolic Ufs298 GLUCOSE 178 mg/dL 04/27/2016 Comp Metabolic Emg391 Creat 1.4 mg/dL 04/27/2016 Comp Metabolic Jqj160 eGFR 53 ml/min/1.73m2 04/27/2016 Comp Metabolic Dfk050 BUN 24 mg/dL 04/27/2016 Comp Metabolic Rio507 B/C Ratio 17.5 Ratio 04/27/2016 Comp Metabolic Arp199 CALCIUM 9.1 mg/dL 04/27/2016 Comp Metabolic Vdq597 ALK PHOS 72 U/L 04/27/2016 Comp Metabolic Uqy193 AST(SGOT) 16 U/L 04/27/2016 Comp Metabolic Joe937 ALT(SGPT) 12 U/L 04/27/2016 Comp Metabolic Dfk910 BILI T 0.6 mg/dL 04/27/2016 Comp Metabolic Rks411 ALBUMIN 4.1 g/dL 04/27/2016 Comp Metabolic Uou612 TPRO 6.8 g/dL 04/27/2016 Comp Metabolic Viz995 GLOB 2.7 g/dL 04/27/2016 Comp Metabolic Vwj096 A/G Ratio 1.6 Ratio 04/27/2016 Comp Metabolic Crn731 Osmo 277 mOsmo 04/27/2016 Cbc With Differential [...] 31.9 pg 04/27/2016 Cbc With Differential Ord2 [place]% 9.7 % 04/27/2016 Cbc With Differential Ord2 [...] 2.89 K/ul 04/27/2016 Cbc With Differential Ord2 [place] ABS# 0.9 K/ul 04/27/2016 Cbc With Differential Ord2 Eos ABS# 0.2 K/ul 04/27/2016 Cbc With Differential Ord2 Baso ABS# 0.0 K/ul 04/27/2016 %Hba1C Mak382 % HbA1c 80076-6 7.2 % 04/27/2016 %Hba1C Afs175 Gluc Ave 160 mg/dL 04/27/2016 Cbc With [...] 31.0 pg 01/21/2016 Cbc With Differential Ord2 [place]% 8.9 % 01/21/2016 Cbc With Differential Ord2 [...] 1.91 K/ul 01/21/2016 Cbc With Differential Ord2 [place] ABS# 0.6 K/ul 01/21/2016 Cbc With Differential Ord2 Eos ABS# 0.2 K/ul 01/21/2016 Cbc With Differential Ord2 Baso ABS# 0.0 K/ul 01/21/2016 Comp Metabolic Mjv698 NA 134 mEq/L 01/21/2016 Comp Metabolic Xts107 K 5.0 mEq/L 01/21/2016 Comp Metabolic Emb194 CL 99 mEq/L 01/21/2016 Comp Metabolic Wwi721 CO2 26.0 mEq/L 01/21/2016 Comp Metabolic Aiv471 ANION GAP 14 01/21/2016 Comp Metabolic Rkr910 GLUCOSE 260 mg/dL 01/21/2016 Comp Metabolic Tyr490 Creat 1.5 mg/dL 01/21/2016 Comp Metabolic Eka050 eGFR 50 ml/min/1.73m2 01/21/2016 Comp Metabolic Scm581 BUN 18 mg/dL 01/21/2016 Comp Metabolic Xov991 B/C Ratio 12.4 Ratio 01/21/2016 Comp Metabolic Sfe548 CALCIUM 8.8 mg/dL 01/21/2016 Comp Metabolic Wsr983 ALK PHOS 68 U/L 01/21/2016 Comp Metabolic Llw047 AST(SGOT) 16 U/L 01/21/2016 Comp Metabolic Hkf991 ALT(SGPT) 16 U/L 01/21/2016 Comp Metabolic Qgv066 BILI T 0.5 mg/dL 01/21/2016 Comp Metabolic Gop380 ALBUMIN 3.8 g/dL 01/21/2016 Comp Metabolic Gah092 TPRO 6.3 g/dL 01/21/2016 Comp Metabolic Mqc456 GLOB 2.5 g/dL 01/21/2016 Comp Metabolic Gex651 A/G Ratio 1.5 Ratio 01/21/2016 Comp Metabolic Cem588 Osmo 279 mOsmo 01/21/2016 %Hba1C Ghy477 % HbA1c 15622-7 7.4 % 01/21/2016 %Hba1C Ryy840 Gluc Ave 166 mg/dL 01/21/2016 Metabolic Ord15 [...] Qnt Crqnt CRP 1.5 mg/dl 09/17/2015 %Hba1C Cgy371 % HbA1c 14873-1 7.1 % 09/17/2015 %Hba1C Wld399 Gluc Ave 157 mg/dL 09/17/2015 Cbc With Differential Ord2 WBC 7.59 K/ul 08/06/2015 Cbc With Differential Ord2 RBC 4.39 M/ul 08/06/2015 Cbc With Differential Ord2 HGB 13.9 g/dl 08/06/2015 Cbc With Differential Ord2 HCT 43.5 % 08/06/2015 Cbc With Differential Ord2 Neut% 49.9 % 08/06/2015 Cbc With Differential Ord2 Lymph% 38.2 % 08/06/2015 Cbc With Differential Ord2 MCV 99.1 fl 08/06/2015 Cbc With Differential Ord2 MCH 31.7 pg 08/06/2015 Cbc With Differential Ord2 [place]% 9.6 % 08/06/2015 Cbc With Differential Ord2 [...] 2.90 K/ul 08/06/2015 Cbc With Differential Ord2 [place] ABS# 0.7 K/ul 08/06/2015 Cbc With Differential Ord2 Eos ABS# 0.2 K/ul 08/06/2015 Cbc With Differential Ord2 Baso ABS# 0.0 K/ul 08/06/2015 Cbc With Differential Ord2 New Analyzer Notice Please note new ref ranges starting 05-01-2015 due to implemntation of new five part differential hematolgy analyzer. 08/06/2015 Comp Metabolic Uhn318 NA 132 mEq/L 08/06/2015 Comp Metabolic Cwr594 K 4.6 mEq/L 08/06/2015 Comp Metabolic Wei793 CL 98 mEq/L 08/06/2015 Comp Metabolic Vig292 CO2 25.0 mEq/L 08/06/2015 Comp Metabolic Hue705 ANION GAP 14 08/06/2015 Comp Metabolic Rji176 GLUCOSE 170 mg/dL 08/06/2015 Comp Metabolic Kxr393 Creat 1.5 mg/dL 08/06/2015 Comp Metabolic Ppm702 eGFR 46 ml/min/1.73m2 08/06/2015 Comp Metabolic Dpj049 BUN 21 mg/dL 08/06/2015 Comp Metabolic Czk508 B/C Ratio 13.6 Ratio 08/06/2015 Comp Metabolic Tzw840 CALCIUM 8.9 mg/dL 08/06/2015 Comp Metabolic Qzo801 ALK PHOS 60 U/L 08/06/2015 Comp Metabolic Iqz441 AST(SGOT) 16 U/L 08/06/2015 Comp Metabolic Ncn628 ALT(SGPT) 18 U/L 08/06/2015 Comp Metabolic Sdo881 BILI T 0.4 mg/dL 08/06/2015 Comp Metabolic Zqj689 ALBUMIN 3.8 g/dL 08/06/2015 Comp Metabolic Pih681 TPRO 6.3 g/dL 08/06/2015 Comp Metabolic Qou864 GLOB 2.5 g/dL 08/06/2015 Comp Metabolic Ore361 A/G Ratio 1.6 Ratio 08/06/2015 Comp Metabolic Tfu262 Osmo 271 mOsmo 08/06/2015 Tsh Ord6 hTSH II 0.95 uIU/mL 06/17/2015 Free T4 Yuc526 FREE T4 1.08 ng/dL 06/17/2015 Metabolic Ord15 [...] Ord15 CALCIUM 9.0 mg/dL 05/06/2015 Comp Metabolic Qgu161 NA 143 mEq/L 03/04/2015 Comp Metabolic Cot507 K 4.5 mEq/L 03/04/2015 Comp Metabolic Hin740 CL 92 mEq/L 03/04/2015 Comp Metabolic Vzg563 CO2 24.0 mEq/L 03/04/2015 Comp Metabolic Uli501 ANION GAP 32 03/04/2015 Comp Metabolic Pzf945 GLUCOSE 72 mg/dL 03/04/2015 Comp Metabolic Rvk162 Creat 1.5 mg/dL 03/04/2015 Comp Metabolic Vmc105 eGFR 48 ml/min/1.73m2 03/04/2015 Comp Metabolic Rah519 BUN 27 mg/dL 03/04/2015 Comp Metabolic Cjm460 B/C Ratio 18.0 Ratio 03/04/2015 Comp Metabolic Mom894 CALCIUM 9.1 mg/dL 03/04/2015 Comp Metabolic Npf684 ALK PHOS 58 U/L 03/04/2015 Comp Metabolic Tlt254 AST(SGOT) 16 U/L 03/04/2015 Comp Metabolic Fgj697 ALT(SGPT) 13 U/L 03/04/2015 Comp Metabolic Cap918 BILI T 0.6 mg/dL 03/04/2015 Comp Metabolic Tub255 ALBUMIN 4.0 g/dL 03/04/2015 Comp Metabolic Hav304 TPRO 6.6 g/dL 03/04/2015 Comp Metabolic Moa959 GLOB 2.6 g/dL 03/04/2015 Comp Metabolic Xog810 A/G Ratio 1.6 Ratio 03/04/2015 Comp Metabolic Vvt338 Osmo 289 mOsmo 03/04/2015 %Hba1C Dvy328 % HbA1c 92844-2 7.3 % 01/28/2015 %Hba1C Ode700 Gluc Ave 163 mg/dL 01/28/2015 MICRALUR 4761907 MICRL MG/L 13.2 MG/L 10/01/2014 MICRALUR 7058268 XM.ALB/CRE 48.9 MG/GCR 10/01/2014 MICRALUR 6662401 CREAT MG/D 27 MG/DL 10/01/2014 MICRALUR 5131428 CRE/100 0.27 G/L 10/01/2014 A1C HPLC 5138851 A1C HPLC 23848-3 7.3 % 10/01/2014 TSH 3934265 TSH 0.423 uIU/ML 10/01/2014 TSH 3038157 TSH 0.612 uIU/ML 10/18/2013 A1C HPLC 6041687 A1C HPLC 54428-0 6.8 % 10/18/2013 GFR CALC 6092651 GFR AA >60 ML/MIN 10/18/2013 GFR CALC 8088603 GFR NON-AA 52.0L ML/MIN 10/18/2013 LIPID GRP HDL TEST 30 MG/DL 10/18/2013 LIPID GRP TRIG 425 MG/DL 10/18/2013 LIPID GRP TEST LDL HI TRIG MG/DL 10/18/2013 LIPID GRP CHOL 185 MG/DL 10/18/2013 LIPID GRP RCHOL/HDL 6.17 RATIO 10/18/2013 MICRALUR MICRL MG/L 15.6 MG/L 10/18/2013 MICRALUR XM.ALB/CRE 9.2 MG/GCR 10/18/2013 MICRALUR CREAT MG/D 169 MG/DL 10/18/2013 MICRALUR CRE/100 1.69 G/L 10/18/2013 CHEM 14 9052681 AST 20 U/L 10/18/2013 CHEM 14 7771066 ALT 13 IU/L 10/18/2013 CHEM 14 7953776 BUN 27 MG/DL 10/18/2013 CHEM 14 5224806 ALBUMIN 4.2 GM/DL 10/18/2013 CHEM 14 3519772 CHLORIDE 100 MMOL/L 10/18/2013 CHEM 14 0726752 BILI TOT 0.5 MG/DL 10/18/2013 CHEM 14 2285436 ALK PHOS 60 U/L 10/18/2013 CHEM 14 6588213 SODIUM 131 MMOL/L 10/18/2013 CHEM 14 2455034 CREATININE 1.32 MG/DL 10/18/2013 CHEM 14 2686972 CALCIUM 9.2 MG/DL 10/18/2013 CHEM 14 9397066 POTASSIUM 4.7 MMOL/L 10/18/2013 CHEM 14 9201867 PROT TOT 7.7 GM/DL 10/18/2013 CHEM 14 7838963 GLUCOSE 140 MG/DL 10/18/2013 CHEM 14 9300884 BICARB 24 MMOL/L 10/18/2013 CHEM 14 7956335 ANION GAP 7 MEQ/L 10/18/2013 PSA EQ 20110613 PSA EQ 7.79 NG/ML 10/18/2013 CBC 4232703 WBC 6.6 10e9/L 10/18/2013 CBC 0959452 RBC 4.58 10e12/L 10/18/2013 CBC 3695059 HGB 14.6 g/dL 10/18/2013 CBC 4215201 HCT DET 42.8 % 10/18/2013 CBC 7383598 MCV 93.4 fL 10/18/2013 CBC 4107434 MCH 31.9 pg 10/18/2013 CBC 6382995 MCHC 34.1 g/dL 10/18/2013 CBC 6480196 PLT 172 10e9/L 10/18/2013 CBC 4012918 MPV 9.3 fL 10/18/2013 CBC 4926094 JAYESH % 55.4 % 10/18/2013 CBC 6851240 LY % 33.0 % 10/18/2013 CBC 8712818 MON % 8.8 % 10/18/2013 CBC 5176972 EOS % 2.6 % 10/18/2013 CBC 1503546 BASO % 0.2 % 10/18/2013 CBC 4348060 RDW 12.7 % 10/18/2013 CBC 1798465 ABS JAYESH 3.66 10e9/L 10/18/2013 CBC 1031499 ABS LYMPH 2.18 10e9/L 10/18/2013 CBC 3941595 ABS MONO 0.58 10e9/L 10/18/2013 CBC 0942238 ABS EOS 0.17 10e9/L 10/18/2013 CBC 7580236 ABS BASO 0.01 10e9/L 10/18/2013 CBC 4115400 RDW-SD 42.6 fL 10/18/2013 TSH 6891924 TSH 1.257 uIU/ML 05/05/2013 CHEM 14 5717181 AST 15 U/L 05/05/2013 CHEM 14 0434888 ALT 13 IU/L 05/05/2013 CHEM 14 1478849 BUN 22 MG/DL 05/05/2013 CHEM 14 8605257 ALBUMIN 4.2 GM/DL 05/05/2013 CHEM 14 4268687 CHLORIDE 104 MMOL/L 05/05/2013 CHEM 14 9736833 BILI TOT 0.6 MG/DL 05/05/2013 CHEM 14 2046531 ALK PHOS 52 U/L 05/05/2013 CHEM 14 9855000 SODIUM 137 MMOL/L 05/05/2013 CHEM 14 9862260 CREATININE 1.25 MG/DL 05/05/2013 CHEM 14 0755769 CALCIUM 9.1 MG/DL 05/05/2013 CHEM 14 1742050 POTASSIUM 5.0 MMOL/L 05/05/2013 CHEM 14 9153966 PROT TOT 6.7 GM/DL 05/05/2013 CHEM 14 3558118 GLUCOSE 142 MG/DL 05/05/2013 CHEM 14 2203959 BICARB 27 MMOL/L 05/05/2013 CHEM 14 7348213 ANION GAP 6 MEQ/L 05/05/2013 GFR CALC 5903085 GFR AA >60 ML/MIN 05/05/2013 GFR CALC 2386666 GFR NON-AA 56.0L ML/MIN 05/05/2013 CBC 4345965 WBC 6.1 10e9/L 05/05/2013 CBC 9659691 RBC 4.74 10e12/L 05/05/2013 CBC 2740791 HGB 14.7 g/dL 05/05/2013 CBC 1683398 HCT DET 43.6 % 05/05/2013 CBC 0189654 MCV 92.0 fL 05/05/2013 CBC 8257254 MCH 31.0 pg 05/05/2013 CBC 0207231 MCHC 33.7 g/dL 05/05/2013 CBC 0288459 PLT 168 10e9/L 05/05/2013 CBC 8684890 MPV 9.3 fL 05/05/2013 CBC 3255125 JAYESH % 53.2 % 05/05/2013 CBC 1174228 LY % 35.3 % 05/05/2013 CBC 0440607 MON % 8.7 % 05/05/2013 CBC 9702426 EOS % 2.5 % 05/05/2013 CBC 5164592 BASO % 0.3 % 05/05/2013 CBC 8318811 RDW 13.5 % 05/05/2013 CBC 8416192 ABS JAYESH 3.25 10e9/L 05/05/2013 CBC 4800381 ABS LYMPH 2.15 10e9/L 05/05/2013 CBC 4376214 ABS MONO 0.53 10e9/L 05/05/2013 CBC 1748848 ABS EOS 0.15 10e9/L 05/05/2013 CBC 2001485 ABS BASO 0.02 10e9/L 05/05/2013 CBC 9788231 RDW-SD 44.8 fL 05/05/2013 A1C HPLC 2169197 A1C HPLC 55308-5 6.4 % 05/05/2013 LIPID GRP HDL TEST 32 MG/DL 05/05/2013 LIPID GRP TRIG 170 MG/DL 05/05/2013 LIPID GRP TEST LDL 73 MG/DL 05/05/2013 LIPID GRP CHOL 139 MG/DL 05/05/2013 LIPID GRP RCHOL/HDL 4.34 RATIO 05/05/2013 CHEM 14 5799054 AST 17 U/L 11/25/2012 CHEM 14 8706914 ALT 21 IU/L 11/25/2012 CHEM 14 4836360 BUN 20 MG/DL 11/25/2012 CHEM 14 5038285 ALBUMIN 4.4 GM/DL 11/25/2012 CHEM 14 3645949 CHLORIDE 99 MMOL/L 11/25/2012 CHEM 14 2568861 BILI TOT 0.6 MG/DL 11/25/2012 CHEM 14 3700079 ALK PHOS 50 U/L 11/25/2012 CHEM 14 2926877 SODIUM 129 MMOL/L 11/25/2012 CHEM 14 2425153 CREATININE 1.20 MG/DL 11/25/2012 CHEM 14 0399211 CALCIUM 9.2 MG/DL 11/25/2012 CHEM 14 8041268 POTASSIUM 5.1 MMOL/L 11/25/2012 CHEM 14 9106707 PROT TOT 6.7 GM/DL 11/25/2012 CHEM 14 4911121 GLUCOSE 196 MG/DL 11/25/2012 CHEM 14 5910426 BICARB 25 MMOL/L 11/25/2012 CHEM 14 9469032 ANION GAP 5 MEQ/L 11/25/2012 CBC 9399237 WBC 6.1 10e9/L 11/25/2012 CBC 1923503 RBC 4.78 10e12/L 11/25/2012 CBC 2951513 HGB 15.0 g/dL 11/25/2012 CBC 3629825 HCT DET 43.4 % 11/25/2012 CBC 0307600 MCV 90.8 fL 11/25/2012 CBC 7184764 MCH 31.4 pg 11/25/2012 CBC 3960235 MCHC 34.6 g/dL 11/25/2012 CBC 7842003 PLT 174 10e9/L 11/25/2012 CBC 4872730 MPV 9.5 fL 11/25/2012 CBC 1515950 JAYESH % 54.6 % 11/25/2012 CBC 8493239 LY % 32.9 % 11/25/2012 CBC 7050248 MON % 9.6 % 11/25/2012 CBC 8668980 EOS % 2.6 % 11/25/2012 CBC 4940052 BASO % 0.3 % 11/25/2012 CBC 8583413 RDW 12.9 % 11/25/2012 CBC 5845056 ABS JAYESH 3.33 10e9/L 11/25/2012 CBC 3583813 ABS LYMPH 2.01 10e9/L 11/25/2012 CBC 1348481 ABS MONO 0.59 10e9/L 11/25/2012 CBC 8024862 ABS EOS 0.16 10e9/L 11/25/2012 CBC 5554074 ABS BASO 0.02 10e9/L 11/25/2012 CBC 7165526 RDW-SD 42.3 fL 11/25/2012 LIPID GRP HDL TEST 39 MG/DL 11/25/2012 LIPID GRP TRIG 204 MG/DL 11/25/2012 LIPID GRP TEST LDL 100 MG/DL 11/25/2012 LIPID GRP CHOL 180 MG/DL 11/25/2012 LIPID GRP RCHOL/HDL 4.62 RATIO 11/25/2012 A1C HPLC [id number] A1C HPLC 29914-5 8.2 % 11/25/2012 GFR CALC 8134242 GFR AA >60 ML/MIN 11/25/2012 GFR CALC 9521787 GFR NON-AA 58.0L ML/MIN 11/25/2012 TSH 3308925 TSH 0.636 uIU/ML 01/13/2012 A1C HPLC [id number] A1C HPLC 51346-9 7.9 % 01/13/2012 GFR CALC 1879716 GFR AA >60 ML/MIN 01/13/2012 GFR CALC 0725496 GFR NON-AA 59.0L ML/MIN 01/13/2012 CBC 3625728 WBC 7.8 10e9/L 01/13/2012 CBC 7503733 RBC 4.93 10e12/L 01/13/2012 CBC 3809033 HGB 15.3 g/dL 01/13/2012 CBC 8821675 HCT DET 43.6 % 01/13/2012 CBC 7576284 MCV 88.4 fL 01/13/2012 CBC 3314161 MCH 31.0 pg 01/13/2012 CBC 0683330 MCHC 35.1 g/dL 01/13/2012 CBC 6502213 PLT 173 10e9/L 01/13/2012 CBC 2307873 MPV 9.1 fL 01/13/2012 CBC 8609492 JAYESH % 57.6 % 01/13/2012 CBC 0309943 LY % 31.5 % 01/13/2012 CBC 8561084 MON % 8.8 % 01/13/2012 CBC 8312535 EOS % 1.8 % 01/13/2012 CBC 1578402 BASO % 0.3 % 01/13/2012 CBC 3555710 RDW 12.9 % 01/13/2012 CBC 1688004 ABS JAYESH 4.49 10e9/L 01/13/2012 CBC 3862978 ABS LYMPH 2.46 10e9/L 01/13/2012 CBC 9245720 ABS MONO 0.69 10e9/L 01/13/2012 CBC 1997268 ABS EOS 0.14 10e9/L 01/13/2012 CBC 2971282 ABS BASO 0.02 10e9/L 01/13/2012 CBC 9001464 RDW-SD 41.2 fL 01/13/2012 CHEM 14 5948257 AST 21 U/L 01/13/2012 CHEM 14 1252151 ALT 23 IU/L 01/13/2012 CHEM 14 4878396 BUN 20 MG/DL 01/13/2012 CHEM 14 8443738 ALBUMIN 4.4 GM/DL 01/13/2012 CHEM 14 0560366 CHLORIDE 94 MMOL/L 01/13/2012 CHEM 14 6252064 BILI TOT 0.5 MG/DL 01/13/2012 CHEM 14 6567320 ALK PHOS 60 U/L 01/13/2012 CHEM 14 6461309 SODIUM 131 MMOL/L 01/13/2012 CHEM 14 8213422 CREATININE 1.20 MG/DL 01/13/2012 CHEM 14 0488364 CALCIUM 9.5 MG/DL 01/13/2012 CHEM 14 7323631 POTASSIUM 4.3 MMOL/L 01/13/2012 CHEM 14 2348533 PROT TOT 6.5 GM/DL 01/13/2012 CHEM 14 9515061 GLUCOSE 172 MG/DL 01/13/2012 CHEM 14 0819273 BICARB 26 MMOL/L 01/13/2012 CHEM 14 0013216 ANION GAP 11 MEQ/L 01/13/2012 Review of [...] nourished 04/26/2012 None Full Exam - General 1995 Psychiatric [...] rate 04/26/2012 None Full Exam - General 1995 Respiratory respiratory effort/rhythm Overall: no retractions 04/26/2012 [...] accomodation 04/14/2012 None Full Exam - General 1995 [...] WOUN RTS (CULTURE OTHR SPECIMN AEROBIC) CPT-4: 38904 03/19/2015 DRAINAGE OF SKIN ABSCESS CPT-4: 88353 03/19/2015 ADMIN PNEUMOCOCCAL VACCINE SNOMED CT: 35136608 CPT-4: G0009 03/08/2015 PNEUMOCOCCAL VACC 13 THALIA IM Formatting Model/CDA Sections, Assigned to SNOMED CT: 88113913 CPT-4: 72456Lyiuthu 03/08/2015 ADMIN PNEUMOCOCCAL VACCINE SNOMED CT: 33572067 CPT-4: G0009 01/23/2014 Pneumococcal Polysaccharide Vaccine, 23-Valent, Ad Assigned to/Merissa Sutton CPT-4: 02991Sjgsfcj 01/23/2014 DESTRUCT PREMALG LESION CPT-4: 51346 10/24/2013 DESTRUCT PREMALG LES 2-14 CPT-4: 19077 10/24/2013 ROUTINE VENIPUNCTURE CPT-4: 84206 05/05/2013 PRESCRIP TRANSMIT VIA ERX SY CPT-4: G8553 04/24/2013 DESTRUCT PREMALG LESION CPT-4: 14950 12/26/2012 PRESCRIP TRANSMIT VIA ERX SY CPT-4: G8553 11/30/2012 ROUTINE VENIPUNCTURE CPT-4: 76195 11/25/2012 PRESCRIP TRANSMIT VIA ERX SY CPT-4: G8553 05/30/2012 PRESCRIP TRANSMIT VIA ERX SY CPT-4: G8553 04/14/2012 PRESCRIP TRANSMIT VIA ERX SY CPT-4: G8553 02/22/2012 ROUTINE VENIPUNCTURE CPT-4: 54401 01/13/2012 ROUTINE VENIPUNCTURE CPT-4: 75335 08/06/2011 ROUTINE VENIPUNCTURE CPT-4: 27864 06/25/2011 Vital Signs Date Vital 02/17/2018 Blood Pressure 1: 140/74 Code : 8480-6 BMI: 29.7 Code : 99663-7 Heart Rate 1 : 67 bpm Height: 6'2" SpO2: 98% Waist Measure (cm): 112 cm Weight: 231 lbs 01/11/2018 Blood Pressure 1: 140/80 Code : 8480-6 BMI: 29.4 Code : 43570-2 Heart Rate 1 : 72 bpm Height: 6'2" SpO2: 92% Weight: 229 lbs 09/16/2017 Blood Pressure 1: 136/78 Code : 8480-6 BMI: 28.8 Code : 40769-6 Heart Rate 1 : 74 bpm Height: 6'2" SpO2: 94% Weight: 224 lbs 07/13/2017 Blood Pressure 1: 142/78 Code : 8480-6 BMI: 29.3 Code : 52594-9 Heart Rate 1 : 67 bpm Height: 6'2" SpO2: 97% Weight: 228 lbs 05/13/2017 Blood Pressure 1: 154/82 Code : 8480-6 BMI: 30.0 Code : 57925-4 Heart Rate 1 : 65 bpm Height: 6'2" SpO2: 98% Weight: 234 lbs 04/28/2017 Blood Pressure 1: 134/78 Code : 8480-6 BMI: 29.7 Code : 29162-1 Heart Rate 1 : 73 bpm Height: 6'2" SpO2: 94% Weight: 231 lbs 04/15/2017 Blood Pressure 1: 152/74 Code : 8480-6 BMI: 29.7 Code : 81759-9 Heart Rate 1 : 64 bpm Height: 6'2" SpO2: 98% Weight: 231 lbs 02/04/2017 Blood Pressure 1: 140/78 Code : 8480-6 BMI: 30.0 Code : 91335-8 Heart Rate 1 : 83 bpm Height: 6'2" SpO2: 97% Weight: 234 lbs 10/12/2016 Blood Pressure 1: 148/68 Code : 8480-6 BMI: 29.3 Code : 39650-3 Heart Rate 1 : 65 bpm Height: 6'2" SpO2: 100% Weight: 228 lbs 10/08/2016 Blood Pressure 1: 148/68 Code : 8480-6 BMI: 29.3 Code : 59164-4 Heart Rate 1 : 65 bpm Height: 6'2" SpO2: 100% Weight: 228 lbs 8 oz 09/10/2016 Blood Pressure 1: 142/68 Code : 8480-6 BMI: 29.3 Code : 96290-6 Heart Rate 1 : 75 bpm Height: 6'2" SpO2: 97% Weight: 228 lbs 08/24/2016 Blood Pressure 1: 156/86 Code : 8480-6 BMI: 28.1 Code : 50125-3 Heart Rate 1 : 72 bpm Height: 6'2" SpO2: 97% Weight: 219 lbs 08/06/2016 Blood Pressure 1: 172/90 Code : 8480-6 BMI: 29.0 Code : 43022-1 Heart Rate 1 : 68 bpm Height: 6'2" SpO2: 98% Temperature: 36.1 (C) / 96.9 (F) Weight: 226 lbs 07/30/2016 Blood Pressure 1: 138/86 Code : 8480-6 BMI: 29.7 Code : 78006-0 Heart Rate 1 : 80 bpm Height: 6'2" SpO2: 95% Temperature: 36.5 (C) / 97.7 (F) Weight: 231 lbs 06/22/2016 Blood Pressure 1: 145/82 Code : 8480-6 Heart Rate 1: 77 bpm Respiratory Rate : 18 bpm SpO2: 97% Weight: 231 lbs 04/27/2016 Blood Pressure 1: 158/76 Code : 8480-6 Blood Pressure 1: 182/78 Code: 8480-6 BMI: 30.4 Code: 34297-7 Heart Rate 1: 69 bpm Height: 6'2" SpO2: 97% Weight: 237 lbs 03/23/2016 Blood Pressure 1: 140/82 Code : 8480-6 BMI: 30.4 Code : 53998-0 Heart Rate 1 : 77 bpm Height: 6'2" SpO2: 93% Weight: 237 lbs 01/20/2016 Blood Pressure 1: 142/80 Code : 8480-6 BMI: 31.2 Code : 53529-0 Heart Rate 1 : 64 bpm Height: 6'2" SpO2: 93% Weight: 243 lbs 12/16/2015 Blood Pressure 1: 138/88 Code : 8480-6 BMI: 30.3 Code : 36267-1 Heart Rate 1 : 62 bpm Height: 6'2" SpO2: 97% Weight: 236 lbs 12/09/2015 Blood Pressure 1: 148/80 Code : 8480-6 Blood Pressure 1: 198/92 Code: 8480-6 Blood Pressure 1: 152/70 Code: 8480-6 BMI: 30.3 Code: 91293-2 Heart Rate 1: 84 bpm Height: 6'2" Weight: 236 lbs 11/25/2015 Blood Pressure 1: 160/80 Code : 8480-6 BMI: 30.2 Code : 39768-6 Heart Rate 1 : 68 bpm Height: 6'2" SpO2: 96% Weight: 235 lbs 09/02/2015 Blood Pressure 1: 122/64 Code : 8480-6 BMI: 30.2 Code : 72924-8 Heart Rate 1 : 86 bpm Height: 6'2" SpO2: 98% Weight: 235 lbs 08/05/2015 Blood Pressure 1: 130/70 Code : 8480-6 Heart Rate 1: 81 bpm SpO2: 97% Weight: 233 lbs 07/25/2015 Blood Pressure 1: 142/80 Code : 8480-6 BMI: 30.0 Code : 07193-8 Heart Rate 1 : 74 bpm Height: 6'2" SpO2: 95% Weight: 234 lbs 06/03/2015 Blood Pressure 1: 150/68 Code : 8480-6 BMI: 30.0 Code : 77285-5 Heart Rate 1 : 66 bpm Height: 6'2" SpO2: 96% Weight: 234 lbs 03/19/2015 Blood Pressure 1: 154/78 Code : 8480-6 BMI: 30.3 Code : 05873-1 Heart Rate 1 : 63 bpm Height: 6'2" SpO2: 96% Weight: 236 lbs 03/04/2015 Blood Pressure 1: 124/68 Code : 8480-6 BMI: 30.2 Code : 39037-2 Heart Rate 1 : 60 bpm Height: 6'2" SpO2: 97% Weight: 235 lbs 02/20/2015 Blood Pressure 1: 160/84 Code : 8480-6 BMI: 30.8 Code : 08528-1 Heart Rate 1 : 79 bpm Height: 6'2" SpO2: 96% Weight: 240 lbs 02/11/2015 Blood Pressure 1: 170/102 Code: 8480-6 BMI: 31.1 Code: 17508-3 Heart Rate 1: 81 bpm Height: 6'2" SpO2: 96% Weight: 242 lbs 01/28/2015 Blood Pressure 1: 174/80 Code : 8480-6 Blood Pressure 2: 168/74 Code: 8480-6 BMI: 31.2 Code: 86150-6 Heart Rate 1: 74 bpm Height: 6'2" SpO2: 97% Weight: 243 lbs 10/01/2014 Blood Pressure 1: 152/84 Code : 8480-6 BMI: 30.4 Code : 22570-6 Heart Rate 1 : 80 bpm Height: 6'2" SpO2: 96% Weight: 237 lbs 05/30/2014 Blood Pressure 1: 140/82 Code : 8480-6 BMI: 30.6 Code : 64356-5 Heart Rate 1 : 86 bpm Height: 6'2" Weight: 238 lbs 02/28/2014 Blood Pressure 1: 152/86 Code : 8480-6 BMI: 29.5 Code : 77471-1 Heart Rate 1 : 64 bpm Height: 6'2" Weight: 230 lbs 01/23/2014 Blood Pressure 1: 142/68 Code : 8480-6 BMI: 29.7 Code : 38372-2 Heart Rate 1 : 80 bpm Height: 6'2" Weight: 231 lbs 12/26/2013 Blood Pressure 1: 150/72 Code : 8480-6 BMI: 29.3 Code : 87918-0 Heart Rate 1 : 60 bpm Height: 6'2" Respiratory Rate: 16 bpm Weight: 228 lbs 8 oz 10/24/2013 Blood Pressure 1: 140/84 Code : 8480-6 Heart Rate 1: 60 bpm 10/17/2013 Blood Pressure 1: 166/72 Code : 8480-6 BMI: 28.8 Code : 01069-7 Heart Rate 1 : 68 bpm Height: 6'2" Weight: 224 lbs 07/24/2013 Blood Pressure 1: 112/64 Code : 8480-6 BMI: 29.1 Code : 46088-4 Heart Rate 1 : 80 bpm Height: 6'2" Weight: 227 lbs 04/24/2013 Blood Pressure 1: 130/74 Code : 8480-6 BMI: 28.9 Code : 93635-3 Heart Rate 1 : 76 bpm Height: 6'2" Weight: 225 lbs 6 oz 03/20/2013 Blood Pressure 1: 150/70 Code : 8480-6 BMI: 29.7 Code : 79171-6 Heart Rate 1 : 76 bpm Height: 6'2" Temperature: 37.0 (C) / 98.6 (F) Weight: 231 lbs 01/19/2013 Blood Pressure 1: 150/78 Code : 8480-6 BMI: 30.2 Code : 52280-2 Heart Rate 1 : 84 bpm Height: 6'2" Weight: 235 lbs 12/26/2012 Blood Pressure 1: 142/78 Code : 8480-6 BMI: 29.9 Code : 85574-8 Heart Rate 1 : 84 bpm Height: 6'2" Weight: 233 lbs 12/21/2012 Blood Pressure 1: 142/80 Code : 8480-6 BMI: 29.5 Code : 69016-9 Heart Rate 1 : 80 bpm Height: 6'2" Weight: 230 lbs 11/30/2012 Blood Pressure 1: 146/78 Code : 8480-6 BMI: 29.4 Code : 02585-8 Heart Rate 1 : 80 bpm Height: 6'2" Weight: 229 lbs 05/30/2012 Blood Pressure 1: 150/74 Code : 8480-6 BMI: 29.4 Code : 38109-6 Heart Rate 1 : 76 bpm Height: 6'2" Respiratory Rate: 16 bpm Weight: 229 lbs 04/26/2012 Blood Pressure 1: 124/64 Code : 8480-6 Heart Rate 1: 90 bpm SpO2: 98% Temperature: 36.7 (C) / 98.1 (F) Weight: 04/14/2012 Blood Pressure 1: 150/88 Code : 8480-6 Blood Pressure 2: 150/90 Code: 8480-6 BMI: 29.4 Code: 30959-6 Heart Rate 1: 72 bpm Height: 6'2" [...] Code : 8480-6 BMI: 28.9 Code : 07853-9 Heart Rate 1 : 64 bpm Height: 6'2" Weight: 225 lbs 08/05/2011 Blood Pressure 1: 142/72 Code : 8480-6 BMI: 29.3 Code : 17268-4 Heart Rate 1 : 80 bpm Height: 6'2" Weight: 228 lbs 07/01/2011 Blood Pressure 1: 136/70 Code : 8480-6 BMI: 29.2 Code : 15358-5 Heart Rate 1 : 68 bpm Height: 6'2" Respiratory Rate: 16 bpm Weight: 227 lbs 8 oz Functional Status No Functional Status data History of Present Illness Symptom Name Status Result Effective Date Notes Annual Medicare Wellness Exam Alcohol Use drinks [...] None cough Alleviating Factors OTC medications 09/10/2016 ajzmín seltzer plus cough Pertinent Findings chest discomfort [...] data Encounters Encounter Performer Location Codes Date 87102 EST. 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 PATIENT, LEVEL IV Diagnosis: Atrophy of thyroid (acquired)[ICD10: E03.4] Diagnosis: Type 2 diabetes mellitus with hyperglycemia[ICD10: E11.65] Diagnosis: Essential (primary) hypertension[ICD10: I10] Diagnosis: Parkinson's disease[ICD10: G20] Yoli Medley MD, [facility] CPT- 4: 22741 09/16/2017 [id number]) 90353 EST. PATIENT, LEVEL IV Diagnosis: Essential (primary) hypertension[ICD10: I10] Diagnosis: Type 2 diabetes mellitus with hyperglycemia[ICD10: E11.65] Diagnosis: Atrophy of thyroid (acquired)[ICD10: E03.4] Yoli Medley MD, [facility] CPT-4: 29707 07/13/2017 ([id number]) 57722 EST. PATIENT, LEVEL IV Diagnosis: Essential (primary) hypertension[ICD10: I10] Diagnosis: Localized edema[ICD10: R60.0] Diagnosis: Atrophy of thyroid (acquired)[ICD10: E03.4] Diagnosis: Type 2 diabetes mellitus without complications[ICD10: E11.9] Yoli Medley MD, [facility] CPT-4: 70273 05/13/2017 45045 EST. PATIENT, LEVEL III Diagnosis: Rash and other nonspecific skin eruption[ICD10: R21] Bonita Medley MD, [facility] CPT-4: 29049 04/28/2017 91460 EST. PATIENT, LEVEL IV Diagnosis: Essential (primary) hypertension[ICD10: I10] Diagnosis: Atrophy of thyroid (acquired)[ICD10: E03.4] Diagnosis: Type 2 diabetes mellitus without complications[ICD10: E11.9] Bonita Medley MD , [facility] CPT-4: 56755 04/15/2017 ([id number]) 49734 EST. PATIENT, LEVEL IV Diagnosis: Type 2 diabetes mellitus with hyperglycemia[ICD10: E11.65] Diagnosis: Essential (primary) hypertension[ICD10: I10] Diagnosis: Hypothyroidism, unspecified[ICD10: E03.9] Ginny Medley MD, [facility] CPT-4: 18948 02/04/2017 ([id number]) 73670 EST. PATIENT, LEVEL III Diagnosis: Essential (primary) hypertension[ICD10: I10] Diagnosis: Hypothyroidism, unspecified[ICD10: E03.9] Ginny Medley MD, [facility] CPT-4: 50347 10/08/2016 ([id number]) 24601 EST. PATIENT, LEVEL III Diagnosis: Allergic rhinitis due to pollen[ICD10: J30.1] Diagnosis: Hypothyroidism, unspecified[ICD10: E03.9] Ginny Medley MD, [facility] CPT-4: 69220 09/10/2016 ([id number]) 27092 EST. 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 PATIENT, LEVEL IV Diagnosis: Abdominal distension (gaseous)[ICD10: R14.0] Diagnosis: Cough[ICD10: R05] Diagnosis: Acute bronchitis, unspecified[ICD10: J20.9] Diagnosis: Essential (primary) hypertension[ICD10: I10] Ginny Medley MD, [facility] CPT-4: 56354 08/06/2016 ([id number]) 40826 EST. PATIENT, LEVEL III Diagnosis: Cough[ICD10: R05] Diagnosis: Acute upper respiratory infection, unspecified[ICD10: J06.9] Ginny Medley MD, [facility] CPT-4: 47964 07/30/2016 ([id number]) 52502 EST. PATIENT, LEVEL IV Diagnosis: Type 2 diabetes mellitus with hyperglycemia[ICD10: E11.65] Diagnosis: Essential (primary) hypertension[ICD10: I10] Diagnosis: Parkinson's disease[ICD10: G20] Diagnosis: Localized edema[ICD10: R60.0] Ginny Medley MD, [facility] CPT-4: 75390 06/22/2016 ([id number]) 52290 EST. PATIENT, LEVEL IV Diagnosis: Essential (primary) hypertension[ICD10: I10] Diagnosis: Type 2 diabetes mellitus with hyperglycemia[ICD10: E11.65] Diagnosis: Hypo-osmolality and hyponatremia[ICD10: E87.1] Diagnosis: Hesitancy of micturition[ICD10: R39.11] Ginny Medley MD, [facility] CPT-4: 85823 04/27/2016 ([id number]) 95556 EST. PATIENT, LEVEL III Diagnosis: Essential (primary) hypertension[ICD10: I10] Diagnosis: Localized edema[ICD10: R60.0] Ginny Medley MD, [facility] CPT-4: 04490 03/23/2016 ([id number]) 83953 EST. PATIENT, LEVEL IV Diagnosis: Low back pain[ICD10: M54.5] Diagnosis: Hypo-osmolality and hyponatremia[ICD10: E87.1] Diagnosis: Essential (primary) hypertension[ICD10: I10] Diagnosis: Localized edema[ICD10: R60.0] Diagnosis: Type 2 diabetes mellitus with hyperglycemia[ICD10: E11.65] Ginny Medley MD, [facility] CPT-4: 87127 01/20/2016 ([id number]) 84425 EST. PATIENT, LEVEL III Diagnosis: Type 2 diabetes mellitus with hyperglycemia[ICD10: E11.65] Diagnosis: Essential (primary) hypertension[ICD10: I10] Diagnosis: Hypo-osmolality and hyponatremia[ICD10: E87.1] Ginny Medley MD, [facility] CPT-4: 02304 12/16/2015 ([id number]) 25534 EST. PATIENT, LEVEL III Diagnosis: Essential (primary) hypertension[ICD10: I10] Diagnosis: Hypo-osmolality and hyponatremia[ICD10: E87.1] Ginny Medley MD, [facility] CPT-4: 11205 12/09/2015 ([id number]) 89968 EST. PATIENT, LEVEL IV Diagnosis: Essential (primary) hypertension[ICD10: I10] Diagnosis: Type 2 diabetes mellitus with hyperglycemia[ICD10: E11.65] Diagnosis: Parkinson's disease[ICD10: G20] Ginny Medley MD, [facility] CPT-4: 98729 11/25/2015 52108 EST. PATIENT, LEVEL III Diagnosis: Localized edema[ICD10: R60.0] Diagnosis: Essential (primary) hypertension[ICD10: I10] Bonita Medley MD, [facility] CPT-4: 39919 09/02/2015 ([id number]) 32949 EST. PATIENT, LEVEL III Diagnosis: Localized edema[ICD10: R60.0] Ginny Medley MD, [facility] CPT-4: 90879 08/05/2015 ([id number]) 35748 EST. PATIENT, LEVEL III Diagnosis: Localized edema[ICD10: R60.0] Diagnosis: Unspecified open wound, right ankle, initial encounter[ICD10: S91.001A] Ginny Medley MD, [facility] CPT-4: 68003 ([id number]) 43263 EST. PATIENT, LEVEL IV Diagnosis: Essential (primary) hypertension[ICD10: I10] Diagnosis: Localized edema[ICD10: R60.0] Diagnosis: Low back pain[ICD10: M54.5] Diagnosis: Type 2 diabetes mellitus with hyperglycemia[ICD10: E11.65] Ginny Medley MD, [facility] CPT-4: 26640 06/03/2015 ([id number]) Miscellaneous no charge Diagnosis: Encounter for other specified aftercare[ICD10: Z51.89] Yoli Medley MD, [facility] CPT-4: 04141 03/20/2015 40812 EST. PATIENT, LEVEL IV Diagnosis: Cutaneous abscess of chest wall[ICD10: L02.213] Yoli Medley MD [facility] CPT-4: 97228 03/19/2015 ([id number]) 17553 EST. PATIENT, LEVEL III Diagnosis: Edema, unspecified[ICD10: R60.9] Yoli Medley MD [facility] CPT-4: 65661 03/04/2015 46905 EST. PATIENT, LEVEL III Diagnosis: Edema, unspecified[ICD10: R60.9] Diagnosis: Unspecified open wound, right ankle, initial encounter[ICD10: S91.001A] Yoli Medley MD [facility] CPT-4: 37779 07/2014 ([id number]) 11381 EST. PATIENT, LEVEL III Diagnosis: Edema, unspecified[ICD10: R60.9] Yoli Medley MD [facility] CPT-4: 02046 02/11/2015 ([id number]) 57274 EST. PATIENT, LEVEL IV Diagnosis: Type 2 diabetes mellitus with hyperglycemia[ICD10: E11.65] Diagnosis: Essential (primary) hypertension[ICD10: I10] Diagnosis: Edema, unspecified[ICD10: R60.9] Yoli Medley MD, [facility] CPT-4: 23843 01/28/2015 ([id number]) 29572 EST. PATIENT, LEVEL IV Diagnosis: DIABETES TYPE II[ICD9: 250.00] Diagnosis: ESSENTIAL HYPERTENSION[ICD9: 401.9] Diagnosis: Parkinsons disease[ICD9: 332.0] Yoli Medley MD [facility] CPT- 4: 24116 10/01/2014 ([id number]) 93733 EST. PATIENT, LEVEL IV Diagnosis: ESSENTIAL HYPERTENSION[ICD9: 401.9] Diagnosis: DIABETES TYPE II[ICD9: 250.00] Diagnosis: Parkinsons disease[ICD9: 332.0] Yoli Medley MD [facility] CPT- 4: 88687 05/30/2014 ([id number]) 86302 EST. PATIENT, LEVEL IV Diagnosis: DIABETES TYPE II[ICD9: 250.00] Diagnosis: ESSENTIAL HYPERTENSION[ICD9: 401.9] Diagnosis: Back pain[ICD9: 724.5] Yoli Medley MD [facility] CPT-4: 54939 02/28/2014 ([id number]) 50844 EST. PATIENT, LEVEL III Diagnosis: ESOPHAGEAL REFLUX[ICD9: 530.81] Diagnosis: Esophageal ulcer[ICD9: 530.20] Yoli Medley MD [facility] CPT- 4: 54424 01/23/2014 ([id number]) 31558 EST. PATIENT, LEVEL IV Diagnosis: ESOPHAGEAL REFLUX[ICD9: 530.81] Diagnosis: ESSENTIAL HYPERTENSION[ICD9: 401.9] Yoli Medley MD [facility] CPT-4: 31761 12/26/2013 ([id number]) 46567 EST. PATIENT, LEVEL IV Diagnosis: Diabetes type 2, uncontrolled[ICD9: 250.02] Diagnosis: ESSENTIAL HYPERTENSION[ICD9: 401.9] Diagnosis: Back pain[ICD9: 724.5] Diagnosis: ELEVATED PSA[ICD9: 790.93] Yoli Medley MD [facility] CPT- 4: 43966 10/17/2013 ([id number]) 53677 EST. PATIENT, LEVEL IV Diagnosis: DIABETES TYPE II[SNOMED: 692968350] Diagnosis: ESSENTIAL HYPERTENSION[SNOMED: 40751461] Diagnosis: Sleep apnea[ICD9: 780.57] Yoli Medley MD [facility] CPT-4: 72559 07/24/2013 ([id number]) 77937 EST. PATIENT, LEVEL IV Diagnosis: DIABETES TYPE II[SNOMED: 029978399] Diagnosis: ESSENTIAL HYPERTENSION[SNOMED: 48545414] Diagnosis: HYPERLIPIDEMIA[ICD9: 272.4] Yoli Medley MD [facility] CPT- 4: 68527 04/24/2013 ([id number]) 26968 EST. PATIENT, LEVEL III Diagnosis: DIABETES TYPE II[SNOMED: 092063452] Yoli Medley MD [facility] CPT-4: 69943 03/20/2013 ([id number]) 76680 EST. PATIENT, LEVEL III Diagnosis: DM W/O COMPLICATION TYPE II, UNCONTROLLED[SNOMED: 19703930] Yoli Medley MD [facility] CPT-4: 71713 01/19/2013 ([id number]) 71120 EST. PATIENT, LEVEL III Diagnosis: DM W/O COMPLICATION TYPE II, UNCONTROLLED[SNOMED: 29779596] Yoli Medley MD [facility] CPT-4: 45132 12/21/2012 ([id number]) 87306 EST. PATIENT, LEVEL IV Diagnosis: DM W/O COMPLICATION TYPE II, UNCONTROLLED[SNOMED: 10909466] Diagnosis: Parkinsons disease[ICD9: 332.0] Diagnosis: Back pain[ICD9: 724.5] Diagnosis: Gait instability[ICD9: 781.2] Yoli Medley MD [facility] CPT- 4: 18689 11/30/2012 ([id number]) 58128 EST. PATIENT, LEVEL IV Diagnosis: ESSENTIAL HYPERTENSION[SNOMED: 41978321] Diagnosis: Abdominal pain[ICD9: 789.00] Diagnosis: DIABETES TYPE II[SNOMED: 250432793] Yoli Medley MD [facility] CPT-4: 24906 05/30/2012 ([id number]) 59417 EST. PATIENT, LEVEL III Diagnosis: Gastroenteritis[ICD9: 558.9] Ginny Medley MD [facility] CPT-4: 44269 04/26/2012 ([id number]) 67408 EST. PATIENT, LEVEL IV Diagnosis: ESSENTIAL HYPERTENSION[SNOMED: 94231355] Diagnosis: DIABETES TYPE II[SNOMED: 351264766] Diagnosis: Claw toe[ICD9: 735.5] Yoli Medley MD [facility] CPT-4: 30002 04/14/2012 ([id number] 24720 EST. PATIENT, LEVEL III Diagnosis: Rash[ICD9: 782.1] Diagnosis: DERMATOPHYTOSIS OF FOOT[ICD9: 110.4] Ginny Medley MD, [facility] CPT-4: 02248 02/22/2012 81608 31192 EST. PATIENT, LEVEL IV Diagnosis: DM W/O COMPLICATION TYPE II, UNCONTROLLED[SNOMED: 53294894] Diagnosis: ESSENTIAL HYPERTENSION[SNOMED: 96917898] Diagnosis: Constipation - functional[ICD9: 564.09] Diagnosis: Encounter for long-term (current) use of other high-risk medications[ ICD9: V58.69] Yoli Medley MD, [facility] CPT-4: 92660 01/13/2012 ([id number] 69688 EST. PATIENT, LEVEL IV Diagnosis: ESSENTIAL HYPERTENSION[SNOMED: 00823693] Diagnosis: DIABETES TYPE II[SNOMED: 261942134] Yoli Medley MD, [facility] CPT-4: 48096 09/02/2011 81645 EST. PATIENT, LEVEL IV Diagnosis: LUMBAGO[ICD9: 724.2] Diagnosis: Sacroiliitis[ICD9: 720.2] Yoli Medley MD, [facility] CPT-4: 57643 08/05/2011 36817 98171 EST. PATIENT, LEVEL IV Diagnosis: ESSENTIAL HYPERTENSION[SNOMED: 06645048] Diagnosis: DIABETES TYPE II[SNOMED: 204787994] Diagnosis: Breast mass in male[ICD9: 611.72] Diagnosis: Chronic hyponatremia[ICD9: 276.1] Yoli Medley MD, [facility] CPT-4: 94182 07/01/2011 Plan of Care Planned Activity Notes Codes Status Date Visit Plan: Medicare Exam - today we [...] today 01/11/2018 [phone] ([facility] min[facility] Moderate 01/11/2018 Patient Education: Patient Medication Summary Completed 01/11/2018 [facility]ment[phone] [facility] - Annual Wellness Visit 10/18/2017 Visit [...] treatment. 09/16/2017 App[facility]ment[phone] ([facility] min) Moderate 09/16/2017 Patient Education: Patient [...] control. 07/13/2017 [phone] ([facility] min) Moderate 07/13/2017 Patient Education: Patient [...] controlled. 05/13/2017 Appointment: Yoli Medley WPtel: [phone] [facility] (15 min) Moderate 05/13/2017 Patient Education: Patient Medication Summary Completed 05/13/2017 Visit Plan: Rash - The patient was instructed to use the ointment as per RX. The patient is to call for any change in symptoms, increase in size of the lesion, increase in pain, worsening redness, warmth, discharge. 04/28/2017 Appointment: Bonita Villa WPtel: [phone] [facility] (15 min) Moderate 04/28/2017 Patient Education: Patient Medication Summary Completed 04/28/2017 Appointment: Bonita Villa WPtel: [phone] [facility] (30 min) Complex 04/16/2017 Visit Plan: Hypertension [...] control. 04/15/2017 [facility]ment[phone] ([facility] min) Complex 04/15/2017 Patient Education: Patient [...] of control. 02/04/2017 Appointment: Ginny Pearl [facility]Ptel[phone] (30 min) Complex 02/04/2017 Patient Education: Patient Medication Summary Completed 02/04/2017 Patient Education: Obesity Completed 02/04/2017 Patient Education: Patient Medication Summary Completed 02/01/2017 Appointment: Ginny Pearl [facility]Ptel[phone] (30 min) Complex 01/12/2017 Appointment: Ginny Pearl WPtel[phone] (30 min) Complex 01/07/2017 Visit Plan: [...] care surrogate. 10/12/2016 Appointment: Bonita Villa WPtel[facility] [facility] - Annual Wellness Visit 10/12/2016 Patient [...] 3 months. 10/08/2016 Appointment: Ginny Pearl WPtel[phone] (30 min) [facility] 10/08/2016 Patient Education: Patient Medication Summary Completed 10/08/2016 Patient Education: Hypertension Completed 10/08/2016 Visit Plan: Allergies-continue daily anti histamine-call if symptoms do not improve or if any worse S/P total thyroidectomy-now on levothyroxine-repeat labs in 1 month 09/10/2016 Appointment: Ginny Pearl WPtel: [phone] (30 min) Complex 09/10/2016 Patient Education: Patient [...] [place] to do total thyroidectomy on Wednesday Ofbbaszsev-fwbuo-kntnhn-due to thyroid nodules-will monitor symptoms for now [...] [place] to do total thyroidectomy on Wednesday Edijamamsx-grskt-hwysac-due to thyroid nodules-will monitor symptoms for now 08/24/2016 Appointment: Ginny Pearl WPtel: [phone] (30 min) Complex 08/24/2016 Patient Education: Patient Medication Summary Completed 08/24/2016 Visit Plan: Abdominal pncphipb-zyouvaotjzpi-AWY today Bronchitis - acute case of bronchitis [...] at home 08/06/2016 Appointment: Ginny Pearl WPtel: [phone] (10 min) Simple 08/06/2016 Patient Education: Patient Medication Summary Completed 08/06/2016 Visit Plan: URI - Pt advised to increase fluids, vitamin C. Discussed natural and expected course of this diagnosis and need to alert me if symptoms do not follow expected course, or if any worse. RX sent to patient' s pharmacy. 07/30/2016 Appointment: Ginny Pearl WPtel: [phone] [phone] (15 min) Moderate 07/30/2016 Patient Education: Patient [...] symptoms worsen. 06/22/2016 Appointment: Ginny Pearl WPtel: [phone] [phone] (30 min) Complex 06/22/2016 Patient Education: Patient [...] negative 04/27/2016 Appointment: Ginny Pearl WPtel: [phone] (30 min) Complex 04/27/2016 Patient Education: Patient [...] edema. 03/23/2016 Appointment: Ginny Pearl WPtel: [phone] [phone] (30 min) Complex 03/23/2016 Patient Education: Patient [...] in the office. Refer for PT at [facility]- Low back pain, generalized weakness, Parkinsons Low syztcz-riqzxjt-xt need for increase sodium intake Hypertension - [...] Hgb A1C 01/20/2016 Appointment: Ginny Pearl WPtel: [phone] [phone] (30 min) Complex 01/20/2016 Patient Education: Patient Medication Summary Completed 01/20/2016 Patient Education: Obesity Completed 01/20/2016 Care Plan: Comp Metabolic Pending 01/20/2016 Care Plan: Cbc With Differential Pending 01/20/2016 Care Plan: %Hba1C LOINC : 45388-6 Pending 01/20/2016 Visit Plan: Diabetes Mellitus - [...] labs today 12/09/2015 Appointment: [phone] (30 min) Complex 12/09/2015 Patient Education: [...] symptoms worsen. 11/25/2015 Appointment: Ginny Pearl WPtel: [address] [place] [phone] (30 min) [facility] 11/25/2015 Patient Education: Patient Medication Summary Completed [...] 03/26/2015 Care Plan: Referral Order SNOMED-CT : [id number] Ordered 03/26/2015 Patient Education: Patient Medication Summary [...] 02/20/2015 Care Plan: Referral Order SNOMED-CT : [id number] Ordered 02/20/2015 Visit Plan: Hypertension - uncontrolled [...] on Wednesday morning, and 2 lasix on . on WEDNESDAY start taking the new diuretic - SPIRONOLACTONE 02/11/2015 [id number] ([facility] min) Moderate 02/11/2015 Patient Education: [...] pressure. 01/28/2015 App[facility]ment[id number] [place] (15 min) Moderate 01/28/2015 Patient Education: [...] symptoms worsen. 10/01/2014 Appointment: Yoli Medley WPtel: [address] [place], [place] [id number] Follow up 10/01/2014 Patient Education: Patient Medication [...] worsen. 05/30/2014 App[facility]ment: [phone] Follow [facility] 05/30/2014 Patient Education: Patient [...] 29. 01/23/2014 App[facility]ment: [phone] [facility] Follow up 01/23/2014 Patient Education: Patient [...] home. 12/26/2013 Appointment: Yoli Medley WPtel: [phone] [facility] [place] Follow up 12/26/2013 Patient Education: Patient Medication Summary Completed 12/26/2013 Patient Education: Hypertension Completed 12/26/2013 Visit Plan: Wound Instructions - Pt was instruced to keep the wound clean, wash with antibacterial soap, use triple antibiotic ointment, call if redness, pustular drainage, or any other acute conerns. 10/24/2013 [facility]ment[phone] [place] Surgical Procedure 10/24/2013 Patient Education: Patient Medication [...] lesions. 10/17/2013 App[facility]ment: [phone] [facility] [place] Follow up 10/17/2013 Patient Education: Patient [...] like to have his Oxygen company - [employer] - help with arranging oxygen when he is in [facility]. 07/24/2013 Appointment: [phone] [facility] Follow up 07/24/2013 Patient Education: Patient Medication Summary Completed 07/24/2013 Patient Education: Hypertension Completed 07/24/2013 [phone] Lab Draw 05/05/2013 Patient Education: Patient Medication Summary Completed 05/05/2013 Patient Education: Hypertension Completed 05/05/2013 [facility]ment: [phone] [facility] [place] Follow up 05/01/2013 Visit Plan: [...] DAILY. 01/19/2013 App[facility]ment: [phone] [facility] Follow [facility] 01/19/2013 Patient Education: Patient Medication Summary Completed 01/19/2013 Visit Plan: WQ-rejiiwva-scsdpkrzaha today in the office- wound Instructions - Pt was instruced to keep the wound clean, wash with antibacterial soap, use triple antibiotic ointment, call if redness, pustular drainage, or any other acute conerns. 12/26/2012 Appointment: [phone] [phone] [facility] 12/26/2012 Patient Education: Patient Medication [...] glucose. 12/21/2012 App[facility]ment: [phone] [id number] Follow [facility] 12/21/2012 Patient Education: Patient [...] and gait instability - recommended christina at [facility] - continue with back brace as it offers support for the patient. 11/30/2012 Appointment: [phone] [facility] [place] Follow up 11/30/2012 Patient Education: Patient [...] had pain when he woke up on Wednesday. Pt will have gallbladder ultrasound and I [...] been previously. 05/30/2012 Appointment: [phone] [facility] [facility]u Follow up 05/30/2012 [...] to seek support for his arches via oil heater installer christina and perhaps arch supports to be custom made or custom fitted. 04/14/2012 Appointment: [phone] [facility] Follow [facility] 04/14/2012 Patient Education: Patient Medication Summary Completed 04/14/2012 Patient Education: Hypertension Completed 04/14/2012 Visit Plan: Rash- Discussed natural and expected course of this diagnosis and need to alert me if symtpoms do not follow expected course, or if any worse. RX sent to patient's pharmacy. 02/22/2012 Appointment: Ginny Pearl WPtel: [phone] [facility] 02/22/2012 Patient Education: Patient Medication Summary [...] this regimen. 01/13/2012 Appointment: [phone] [id number] [facility] Patient Preventative visit 01/13/2012 Patient [...] less controlled. 09/02/2011 Appointment: Yoli Medley WPtel: [phone] [facility] Other 09/02/2011 Patient Education: Patient Medication Summary Completed 09/02/2011 Patient Education: High Blood Pressure: Essential Hypertension Completed 2011 Appointment: Ginny Pearl WPtel: [phone] [facility] [place] [address] Lab Draw 08/06/2011 Patient Education: Patient Medication [...] metformin bid. 08/05/2011 Appointment: Yoli Medley WPtel: [facility] Other 08/05/2011 Patient Education: Patient [...] home. 07/01/2011 Appointment: [phone] [facility] [place] 07/01/2011 Patient Education: Patient Medication Summary Completed 07/01/2011 Patient Education: High Blood Pressure: Essential Hypertension Completed 2011 Appointment: [phone] [id number] [facility] Draw 06/25/2011 Patient Education: Patient Medication Summary Completed 06/25/2011 Patient Education: High Blood Pressure: Essential Hypertension Completed 2011 Ref[facility]: [facility] Referral Initiated Referral: Dangelo Ford Referral Initiated Instructions Comment . Diabetes Mellitus - Uncontrolled - per [...] that has ability to increase blood glucose. INCREASE LANTUS TO 16 UNITS DAILY.. Diabetes [...] Lab work- CBC, CMP, BNP . Abdominal yrxlsqfe-knwejxwsfqpl-KEP today Bronchitis - acute case of bronchitis [...] plan. HTN-no changes in medications-monitor at home INCREASE LANTUS TO 16 UNITS DAILY. Declined [...] plan. Pt is back to metformin bid. PATIENT IS TO CHECK BLOOD PRESSURE AND [...] to alert this office if symptoms worsen. send a script for sucralfate liquid to [...] will see the patient January 29. . Rash- Discussed natural and expected course of this diagnosis and need to alert me if symtpoms do not follow expected course, or if any worse. RX sent to patient's pharmacy. . Abdominal pain - pt has been having increasing pain in his upper right abdomen - pt has been having increased pain. Pt has been eating a more vegan diet - Wednesday night he thinks he ate salad and lentil stew and then had pain when he woke up on Wednesday. Pt will have gallbladder ultrasound and I [...] carbohydrates than he had been previously. . Abscess/Cellulitis- left anterior chest -incision and drainage today in the office- The patient was instructed in appropriate wound care. The patient was instructed to use the antibiotic as per RX. The patient is to call for any change in symptoms, increase in size of the lesion, increase in pain. Return tomorrow for wound check and repacking the wound. . Diabetes Mellitus - controlled - per [...] Pt declined flu shot today . Hypertension - well controlled - [...] Ford to do total thyroidectomy on Wednesday Bbqolvrmeb-omsne-tifzfb-due to thyroid nodules-will monitor symptoms for now [...] Ford to do total thyroidectomy on Wednesday Rgottejrku-ienmy-xrhpfn-due to thyroid nodules-will monitor symptoms for now [...] change in blood pressure readings at home. Uzygroufnvtdue-llujhigf-lewbdao medication increased by Dr Ford and wants [...] starting on lasix should drop blood pressure. take 2 lasix Wednesday morning, 2 Lasix [...] in blood pressure readings at home. . Allergies-continue daily anti histamine-call if symptoms do not improve or if any worse S/P total thyroidectomy-now on levothyroxine-repeat labs in 1 month Will start Zaroxolyn (water pill), will give [...] to RTC for removal of the lesions. CONTINUE LASIX (FUROSEMIDE) DAILY check labs-cbc, cmp . Edema - pt has been advised to elevate legs to prevent dependent edema, compression has been recommended to help to naturally decrease peripheral edema. Diuretic use has been discussed and pt has been instructed in appropriate use of such medication as necessary to further attempt to reduce peripheral edema. . Medicare Exam - today we discussed [...] DOPA paperwork for health care surrogate. . Rash - The patient was instructed [...] readings are starting to become less controlled. CALL IF YOUR BACK PAIN DOES NOT IMPROVE OR IF ANY WORSE CHECK LABS STOP EXTRA SODIUM REFER TO [facility] FOR PHYSICAL THERAPY DX [place], BACK PAIN, WEAKNESS . Low back pain- the patient was instructed in appropriate posture, need for weight loss to alleviate abdominal obesity that is worsening the patient's back pain. The patient is to call the office if the pain is worsening or does not improve. Kenalog injection today in the office. Refer for PT at [facility] Low back pain, generalized weakness, Parkinsons Low btfcfl-ewrxsgi-se need for increase sodium intake Hypertension - [...] DM-check Hgb A1C . Diabetes Mellitus - I have recommended [...] wraps to lower legs Appointment with [facility]- July 29 at 1pm. . [...] like to have his Oxygen company - [employer] - help with arranging oxygen when he is in [facility]. . Parkinsons disease - rx for sinemet [...] and gait instability - recommended eval at [facility] - continue with back brace [...] based on previous levels of control. . GE-fjutjevr-zgqvwmspzbu today in the office-wound Instructions - Pt [...] colonoscopy report - will refer if indicated Labs today . Diabetes Mellitus - controlled [...] to seek support for his arches via oil heater installer eval and perhaps arch supports to be custom made or custom fitted.
--- OUTSIDE RECORDS SUMMARY | 2018-07-25 08:40 | XMS REPORT | CCD ---
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 Name Role Phone PP Unavailable CCM Unavailable Summary Purpose Interface Exchange Insurance Providers Payer name Policy type / Coverage type Covered constitution party ID Effective Begin Date Effective End Date WPS Medicare Part B Medicare Part B [id number] Unknown [facility] INSUR Medicare Part B [id number] Unknown Family history Runs in the family Diagnosis Age At Onset Diabetes Unknown Mother Diagnosis Age At Onset Diabetes Unknown Hypertension Unknown Alzheimer's Disease Unknown Stroke Unknown Father Diagnosis Age At Onset No Family Disease Entered N/A Grandmother Diagnosis Age At Onset Alzheimer's Disease Unknown Social History Social History Element Codes Description Effective Dates Number of children Unknown 4 2 in [place], 2 in [place] 02/17/[address]: 0909870 Former smoker Quit in 195202/17/2018 Alcohol history Unknown occasionally drinks alcohol 02/17/2018 Frequency of drinks SNOMED CT: 256637771 Drinks rarely 02/17/2018 Employment Unknown 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 Unknown Has never used illegal drugs 07/02/2011 Marital status Unknown 07/01/2011 Living arrangements Unknown House 07/01/2011 Allergies, Adverse Reactions, Alerts Substance Reaction Codes Entered Date Inactivated Date Status feldene rash RxNorm: 8356 02/17/2018 No Inactive Date Active levaquin Unknown 02/17/2018 No Inactive Date Active bactrim rash RxNorm: 716248 02/17/2018 No Inactive Date Active CEPHALOSPORINS Unknown [...] Fill Instructions levothyroxine 175 mcg tablet RxNorm: 497870 TAKE 1 TABLET BY MOUTH ONCE DAILY 02/01/2018 No Stop Date Active potassium chloride ER 10 mEq tablet,extended release(part/ cryst) RxNorm: 5016973 2 Tablet(s) PO daily x 3 days, then 1 pill three times a week when taking the lasix 02/01/2018 05/31/2018 Active finasteride 5 mg tablet RxNorm: 208425 1 Tablet(s) PO daily 07/30/2018 Active [SAVINGS FOR UNINSURED PATIENTS -- BIN:159627, PCN: ASPROD1, Group: [facility], ID# [id number], Process claim through Everyone Counts, for questions: . THIS IS NOT INSURANCE.] January Silver U-100 Insulin 100 unit/mL (3 mL) subcutaneous RxNorm: 8614622 24 Unit(s) SQ daily 12/29/201712/23 Active Lasix 20 mg tablet RxNorm: 387295 TAKE 1 TABLET ONCE DAILY FOR 1 WEEK AND THEN 1 TABLET EVERY 3 DAYS THEREAFTER 12/06/2017 09/01/2018 Active clotrimazole 1 % topical cream RxNorm: 070208 1 Application TOP BID to feet 09/16/2017 No Stop Date Active levothyroxine 175 mcg tablet RxNorm: 638548 TAKE ONE TABLET BY MOUTH ONCE DAILY 08/03/2017 01/31/2018 Inactive glipizide 10 mg tablet RxNorm: 093103 1 Tablet(s) PO BID 201711/03/2018 Active metformin ER 500 mg tablet,extended release 24 hr RxNorm: 062117 Tablet(s) TAKE ONE TABLET BY MOUTH TWICE DAILY 05/13/2017 05/07/2018 Active lisinopril 20 mg tablet RxNorm: 612320 Tablet(s) TAKE 1 TABLET BY MOUTH TWICE DAILY 05/13/2017 05/07/2018 Active Sinemet 25 mg-100 mg tablet RxNorm: 356859 Tablet(s) TAKE ONE TABLET BY MOUTH TWICE DAILY IN THE MORNING AND AT SUPPER 05/13/2017 05/07/2018 Active Basaglar KwikPen U-100 Insulin 100 unit/mL (3 mL) subcutaneous RxNorm: 3129333 24 Unit(s) SQ daily 05/13/201712/28 Inactive finasteride 5 mg tablet RxNorm: 614748 1 Tablet(s) PO daily 11/08/2017 Inactive [SAVINGS FOR UNINSURED PATIENTS -- BIN:223802, PCN: ASPROD1, Group: [facility] , ID# [id number], Process claim through Everyone Counts, for questions: . THIS IS NOT INSURANCE.] levothyroxine 175 mcg tablet RxNorm: 374529 1 Tablet(s) PO daily 05/13/2017 02/16/2018 Inactive Lasix 20 mg tablet RxNorm: Tablet(s) TAKE 1 TABLET BY MOUTH ONCE DAILY FOR 1 WEEK AND THEN TAKE 1 TABLET BY MOUTH EVERY 3 DAYS THEREAFTER 05/13/2017 07/27/2017 Inactive Basaglar KwikPen 100 unit/mL (3 mL) subcutaneous RxNorm: 5792499 24 Unit(s) SQ daily 05/07/2017 05/12/2017 Inactive Lasix 20 mg tablet RxNorm: 116521 2 Tablet(s) PO daily x 3 days, then 1 pill three times a week thereafter 04/28/2017 No Stop Date Active triamcinolone acetonide 0.025 % topical cream RxNorm: 0010326 1 Application TOP BID 04/28/2017 02/16/2018 Inactive clotrimazole 1 % topical cream RxNorm: 961719 1 Application TOP BID 04/28/2017 09/15/2017 Inactive potassium chloride ER 10 mEq tablet,extended release(part/ cryst) RxNorm: 5441834 2 Tablet(s) PO daily x 3 days, then 1 pill three times a week when taking the lasix 04/28/2017 08/25/2017 Inactive Lasix 20 mg tablet RxNorm: Tablet(s) TAKE 1 TABLET BY MOUTH ONCE DAILY FOR 1 WEEK AND THEN TAKE 1 TABLET BY MOUTH EVERY 3 DAYS THEREAFTER 04/22/2017 05/12/2017 Inactive Lantus Solostar 100 unit/mL (3 mL) subcutaneous insulin pen RxNorm: 363310 24 Unit(s) SQ daily INJECT 24 UNITS DAILY OR DIRECTED 201605/06/2017 Inactive 1 box of 5 pens Basaglar KwikPen 100 unit/mL (3 mL) subcutaneous RxNorm: 6386925 24 Unit(s) SQ daily 03/02/2017 05/06/2017 Inactive Basaglar KwikPen 100 unit/mL (3 mL) subcutaneous RxNorm: 3350657 24 Unit(s) SQ daily 03/02/2017 03/01/2017 Inactive levothyroxine 175 mcg tablet RxNorm: 873314 1 Tablet(s) PO daily 02/02/2017 05/12/2017 Inactive Sinemet 25 mg-100 mg tablet RxNorm: 976315 TAKE ONE TABLET BY MOUTH TWICE DAILY IN THE MORNING AND AT SUPPER 12/30/2016 Inactive metformin ER 500 mg tablet,extended release 24 hr RxNorm: 923099 Tablet(s) TAKE ONE TABLET BY MOUTH TWICE DAILY 11/10/2016 05/12/2017 Inactive lisinopril 20 mg tablet RxNorm: 839178 Tablet(s) TAKE 1 TABLET BY MOUTH TWICE DAILY 11/10/2016 05/12/2017 Inactive levothyroxine 150 mcg tablet RxNorm: 125329 1 Tablet(s) PO daily 11/05/2016 02/01/2017 Inactive PLEASE LET PATIENT KNOW WE ARE GIVING HIM 150MCG INSTEAD OF 100MCG SO HE JUST TAKES 1 TAB DAILY. THANKS! Lantus Solostar 100 unit/mL (3 mL) subcutaneous insulin pen RxNorm: 940838 24 Unit(s) SQ daily INJECT 24 UNITS DAILY OR DIRECTED 201603/01/2017 Inactive 1 box of 5 pens Lantus Solostar 100 unit/mL (3 mL) subcutaneous insulin pen RxNorm: 341477 24 Unit(s) SQ daily INJECT 24 UNITS DAILY OR DIRECTED 201610/06/2016 Inactive please call patient with the [facility] levothyroxine 100 mcg tablet RxNorm: 585501 1.5 Tablet(s) PO daily 10/05/2016 11/04/2016 Inactive metformin ER 500 mg tablet,extended release 24 hr RxNorm: 596780 Tablet(s) TAKE ONE TABLET BY MOUTH TWICE DAILY 09/29/2016 11/09/2016 Inactive prednisone 20 mg tablet RxNorm: 950761 1 Tablet(s) PO BID 08/0608/10/2016 Inactive Kenalog 40 mg/mL suspension for injection RxNorm: 6008757 1 Milliliter(s) Inj 07/30/2016 07/30/2016 Inactive doxycycline hyclate 100 mg tablet RxNorm: 132085 1 Tablet(s) PO BID 07/30/2016 08/05/2016 Inactive glipizide 10 mg tablet RxNorm: 745605 1 Tablet(s) PO BID 201605/12/2017 Inactive Sinemet 25 mg-100 mg tablet RxNorm: 785784 TABLET(S) TAKE 1 TABLET BY MOUTH TWICE A DAY IN THE MORNING AND AT SUPPER 05/11/2016 11/06/2016 Inactive Patient requests 90 days supply metformin ER 500 mg tablet,extended release 24 hr RxNorm: 590721 TAKE ONE TABLET BY MOUTH TWICE DAILY 05/04/20162016 Inactive lisinopril 20 mg tablet RxNorm: 541353 TAKE 1 TABLET BY MOUTH TWICE DAILY 04/14/2016 11/09/2016 Inactive Sinemet 25 mg-100 mg tablet RxNorm: 669047 1 Tablet(s) PO BID TAKE 1 TABLET BY MOUTH TWICE A DAY IN THE MORNING AND AT SUPPER 03/23/2016 02/16/2018 Inactive Lasix 20 mg tablet RxNorm: 657087 Tablet(s) TAKE 1 TABLET BY MOUTH ONCE DAILY FOR 1 WEEK AND THEN TAKE 1 TABLET BY MOUTH EVERY 3 DAYS THEREAFTER 03/23/2016 06/06/2016 Inactive Lantus Solostar 100 unit/mL (3 mL) subcutaneous insulin pen RxNorm: 232903 24 Unit(s) SQ daily INJECT 24 UNITS DAILY OR DIRECTED 201510/05/2016 Inactive please call patient with the [facility] hydrocodone 5 mg-acetaminophen 325 mg tablet RxNorm: 929749 1-2 Tablet(s) PO Q6- 8H 01/21/2016 02/16/2018 Inactive Kenalog 40 mg/mL suspension for injection RxNorm: 6436165 1 Milliliter(s) Inj 01/20/2016 01/20/2016 Inactive Sinemet 25 mg-100 mg tablet RxNorm: 685296 Tablet(s) TAKE 1 TABLET BY MOUTH TWICE A DAY IN THE MORNING AND AT SUPPER 11/29/2015 03/22/2016 Inactive Lantus Solostar 100 unit/mL (3 mL) subcutaneous insulin pen RxNorm: 753659 20 Unit(s) SQ daily INJECT 20 UNITS DAILY OR DIRECTED 201501/20/2016 Inactive please call patient with the [facility] Sinemet 25 mg-100 mg tablet RxNorm: 265107 Tablet(s) TAKE 1 TABLET BY MOUTH TWICE A DAY IN THE MORNING AND AT SUPPER 11/22/2015 11/28/2015 Inactive Lantus Solostar 100 unit/mL (3 mL) subcutaneous insulin pen RxNorm: 902955 Unit( s) INJECT 20 UNITS DAILY OR DIRECTED 11/22/2015 11/24/2015 Inactive Lantus Solostar 100 unit/mL (3 mL) subcutaneous insulin pen RxNorm: 627504 INJECT 20 UNITS DAILY OR DIRECTED 09/27/2015 11/21/2015 Inactive Lasix 20 mg tablet RxNorm: 700539 TAKE 1 TABLET BY MOUTH ONCE DAILY FOR 1 WEEK AND THEN TAKE 1 TABLET BY MOUTH EVERY 3 DAYS THEREAFTER 09/2512/10/2015 Inactive Lasix 20 mg tablet RxNorm: 175027 1 Tablet(s) PO daily 201509/25/2015 Inactive glipizide 10 mg tablet RxNorm: 863997 1 Tablet(s) BID TAKE 1 TABLET BY MOUTH DAILY. 06/25/2015 06/28/2016 Inactive metformin ER 500 mg tablet,extended release 24 hr RxNorm: 140892 1 Tablet(s) PO BID 04/01/2015 05/05/2016 Inactive lisinopril 20 mg tablet RxNorm: 426745 Tablet(s) TAKE 1 TABLET BY MOUTH TWICE DAILY. 03/25/2015 07/22/2015 Inactive metformin ER 500 mg tablet,extended release 24 hr RxNorm: 646460 1 Tablet(s) PO BID 03/25/2015 03/31/2015 Inactive doxycycline hyclate 100 mg capsule RxNorm: 9944491 1 Capsule(s) PO BID 03/19/2015 04/01/2015 Inactive Sinemet 25 mg-100 mg tablet RxNorm: 214316 TAKE 1 TABLET BY MOUTH TWICE A DAY IN THE MORNING AND AT SUPPER 03/05/201511/20 Inactive doxycycline hyclate 100 mg capsule RxNorm: 2503135 1 Capsule(s) PO BID 02/20/2015 02/26/2015 Inactive metolazone 5 mg tablet RxNorm: 586956 1 Tablet(s) PO daily 07/201403/21/2015 Inactive spironolactone 50 mg tablet RxNorm: 928652 1 Tablet(s) PO daily 02/11/2015 01/02/2016 Inactive Efudex 5 % topical cream RxNorm: 942087 1 TOP BID 01/28/2015 02/10/2015 Inactive potassium chloride ER 10 mEq tablet,extended release(part/ cryst) RxNorm: 9339538 1 Tablet(s) PO daily x 1week then three times weekly with the lasix. 01/28/2015 05/27/2015 Inactive Lasix 20 mg tablet RxNorm: 739747 1 Tablet(s) PO daily x 1 week, then every three days thereafter 01/28/20152015 Inactive lisinopril 20 mg tablet RxNorm: 222653 Tablet(s) TAKE 1 TABLET BY MOUTH TWICE DAILY. 11/23/2014 03/22/2015 Inactive lisinopril 20 mg tablet RxNorm: 097208 TAKE 1 TABLET BY MOUTH TWICE DAILY. 11/22/2014 11/22/2014 Inactive Sinemet 25 mg-100 mg tablet RxNorm: 997064 1 Tablet(s) PO BID TAKE 1 TABLET BY MOUTH TWICE A DAY IN THE MORNING AND AT SUPPER 10/01/2014 03/04/2015 Inactive [ SAVINGS FOR UNINSURED PATIENTS -- BIN:782640, PCN: ASPROD1, Group: [id number], ID# [id number], Process claim through Everyone Counts, for questions: . THIS IS NOT INSURANCE.] glipizide 10 mg tablet RxNorm: 407215 1 Tablet(s) BID TAKE 1 TABLET BY MOUTH DAILY. 10/01/2014 06/24/2015 Inactive glipizide 10 mg tablet RxNorm: 118456 Tablet(s) daily TAKE 1 TABLET BY MOUTH DAILY. 08/06/2014 09/30/2014 Inactive Lantus Solostar 100 unit/mL (3 mL) subcutaneous insulin pen RxNorm: 539135 20 Unit(s) SQ daily 07/11/2014 09/26/2015 Inactive [SAVINGS FOR UNINSURED PATIENTS -- BIN:609103, PCN: ASPROD1, Group: [id number], ID# [id number], Process claim through [employer], for questions: . THIS IS NOT INSURANCE.] metformin ER 500 mg tablet,extended release 24 hr RxNorm: 075246 1 Tablet(s) PO BID 07/10/2014 03/24/2015 Inactive lisinopril 20 mg tablet RxNorm: 736775 Tablet(s) TAKE 1 TABLET BY MOUTH TWICE DAILY. 07/10/2014 11/21/2014 Inactive Lantus Solostar 100 unit/mL (3 mL) subcutaneous insulin pen RxNorm: 273665 20 Unit(s) SQ daily 05/30/2014 07/10/2014 Inactive [SAVINGS FOR UNINSURED PATIENTS -- BIN:859714, PCN: ASPROD1, Group: [id number], ID# [id number], Process claim through [employer], for questions: . THIS IS NOT INSURANCE.] Sinemet 25 mg-100 mg tablet RxNorm: 255635 Tablet(s) TAKE 1 TABLET BY MOUTH TWICE A DAY IN THE MORNING AND AT SUPPER 05/30/2014 09/30/2014 Inactive [SAVINGS FOR UNINSURED PATIENTS -- BIN:604352, PCN: ASPROD1, Group: [id number], ID# [id number], Process claim through [employer], for questions: . THIS IS NOT INSURANCE.] lisinopril 20 mg tablet RxNorm: 701659 TAKE 1 TABLET BY MOUTH TWICE DAILY. 04/09/2014 04/08/2014 Inactive glipizide 10 mg tablet RxNorm: 521930 TAKE 1 TABLET BY MOUTH TWICE DAILY. 04/09/2014 08/05/2014 Inactive glipizide 10 mg tablet RxNorm: 738402 TAKE 1 TABLET BY MOUTH TWICE DAILY. 04/09/2014 04/08/2014 Inactive lisinopril 20 mg tablet RxNorm: 305828 TAKE 1 TABLET BY MOUTH TWICE DAILY. 04/09/2014 07/09/2014 Inactive lisinopril 20 mg tablet RxNorm: 217502 Tablet(s) TAKE ONE TABLET BY MOUTH TWICE DAILY 04/06/2014 04/08/2014 Inactive [SAVINGS FOR UNINSURED PATIENTS -- BIN:484032 , PCN: ASPROD1, Group: [id number], ID# [id number], Process claim through [employer], for questions: . THIS IS NOT INSURANCE.] glipizide 10 mg tablet RxNorm: 956549 1 Tablet(s) PO BID 201304/08/2014 Inactive [SAVINGS FOR UNINSURED PATIENTS -- BIN:329062, PCN: ASPROD1, Group: [id number], ID # [id number], Process claim through [employer], for questions: . THIS IS NOT INSURANCE.] pravastatin 10 mg tablet RxNorm: 754446 TAKE ONE TABLET BY MOUTH EVERY DAY 02/26/2014 05/26/2014 Inactive Sinemet 25 mg-100 mg tablet RxNorm: 531631 TAKE 1 TABLET BY MOUTH TWICE A DAY IN THE MORNING AND AT SUPPER 01/26/201401/25 Inactive Sinemet 25 mg-100 mg tablet RxNorm: 456193 Tablet(s) TAKE 1 TABLET BY MOUTH TWICE A DAY IN THE MORNING AND AT SUPPER 01/26/2014 05/29/2014 Inactive [SAVINGS FOR UNINSURED PATIENTS -- BIN:527544, PCN: ASPROD1, Group: [id number], ID# [id number], Process claim through [employer], for questions: . THIS IS NOT INSURANCE.] Sinemet 25 mg-100 mg tablet RxNorm: 078524 TAKE 1 TABLET BY MOUTH TWICE A DAY IN THE MORNING AND AT SUPPER 01/26/201401/25 Inactive Sinemet 25 mg-100 mg tablet RxNorm: 034595 TAKE 1 TABLET BY MOUTH TWICE A DAY IN THE MORNING AND AT SUPPER 01/26/201401/25 Inactive pantoprazole 40 mg tablet,delayed release RxNorm: 702865 TAKE 1 TABLET DAILY 01/25/2014 10/07/2016 Inactive finasteride 5 mg tablet RxNorm: 835629 1 Tablet(s) PO daily 12/201309/30/2014 Inactive [SAVINGS FOR UNINSURED PATIENTS -- BIN:298752, PCN: ASPROD1, Group: [id number] , ID# [id number], Process claim through [employer], for questions: . THIS IS NOT INSURANCE.] sucralfate 100 mg/mL oral suspension RxNorm: 235717 10 Milliliter(s) PO QID 01/23/2014 09/30/2014 Inactive dispense qs x 1 month lisinopril 20 mg tablet RxNorm: 454006 TAKE ONE TABLET BY MOUTH TWICE DAILY 12/27/2013 03/26/2014 Inactive pantoprazole 40 mg tablet,delayed release RxNorm: 546699 1 Tablet(s) PO daily 12/26/2013 12/25/2013 Inactive [SAVINGS FOR UNINSURED PATIENTS -- BIN:966923, PCN: ASPROD1, Group: [id number], ID# [id number], Process claim through [employer], for questions: . THIS IS NOT INSURANCE.] pantoprazole 40 mg tablet,delayed release RxNorm: 046040 1 Tablet(s) PO daily 12/26/2013 12/20/2014 Inactive [SAVINGS FOR UNINSURED PATIENTS -- BIN:297723, PCN: ASPROD1, Group: [id number], ID# [id number], Process claim through [employer], for questions: . THIS IS NOT INSURANCE.] gemfibrozil 600 mg tablet RxNorm: 158764 1 Tablet(s) PO BID 11/201310/23/2013 Inactive gemfibrozil 600 mg tablet RxNorm: 936040 1 Tablet(s) PO BID 11/201309/30/2014 Inactive [SAVINGS FOR UNINSURED PATIENTS -- BIN:849853, PCN: ASPROD1, Group: [id number] , ID# [id number], Process claim through [employer], for questions: . THIS IS NOT INSURANCE.] finasteride 5 mg tablet RxNorm: 985499 1 Tablet(s) PO daily 04/201301/24/2014 Inactive [SAVINGS FOR UNINSURED PATIENTS -- BIN:827361, PCN: ASPROD1, Group: [id number] , ID# [id number], Process claim through Everyone Counts, for questions: . THIS IS NOT INSURANCE.] Lantus Solostar 100 unit/mL (3 mL) subcutaneous insulin pen RxNorm: 142653 20 Unit(s) SQ daily 10/09/2013 05/29/2014 Inactive [SAVINGS FOR UNINSURED PATIENTS -- BIN:215669, PCN: ASPROD1, Group: [id number], ID# [id number], Process claim through [employer], for questions: . THIS IS NOT INSURANCE.] glipizide 10 mg tablet RxNorm: 552267 1 Tablet(s) PO daily 04/05/2014 Inactive [SAVINGS FOR UNINSURED PATIENTS -- BIN:594334, PCN: ASPROD1, Group: [id number] , ID# [id number], Process claim through [employer], for questions: . THIS IS NOT INSURANCE.] Lantus Solostar 100 unit/mL (3 mL) subcutaneous insulin pen RxNorm: 140763 20 Unit(s) SQ daily 07/18/2013 10/08/2013 Inactive Sinemet 25 mg-100 mg tablet RxNorm: 708506 1 Tablet(s) PO BID one pill in morning , one at supper 07/10/2013 01/25/2014 Inactive Sinemet 25 mg-100 mg tablet RxNorm: 004847 1 Tablet(s) PO BID one pill in morning , one at supper 04/24/2013 07/09/2013 Inactive metformin ER 500 mg tablet,extended release 24 hr RxNorm: 297722 1 Tablet(s) PO BID 04/24/2013 04/18/2014 Inactive glipizide 10 mg tablet RxNorm: 383934 1 Tablet(s) PO daily 09/201310/08/2013 Inactive lisinopril 20 mg tablet RxNorm: 773889 1 Tablet(s) PO BID 04/2410/20/2013 Inactive pravastatin 10 mg tablet RxNorm: 458768 1 Tablet(s) PO daily 10/20/2013 Inactive Lantus Solostar 100 unit/mL (3 mL) subcutaneous insulin pen RxNorm: 910650 20 Unit(s) SQ daily 04/24/2013 07/17/2013 Inactive glipizide 10 mg tablet RxNorm: 667530 1 Tablet(s) PO daily 05/201304/23/2013 Inactive glipizide 10 mg tablet RxNorm: 118980 1 Tablet(s) PO daily 05/201204/19/2013 Inactive Lantus Solostar 100 unit/mL (3 mL) subcutaneous insulin pen RxNorm: 668688 16 Unit(s) SQ daily 03/20/2013 04/23/2013 Inactive Sinemet 25 mg-100 mg tablet RxNorm: 934181 1 Tablet(s) PO BID one pill in morning , one at supper 01/20/2013 04/23/2013 Inactive Lantus Solostar 100 unit/mL (3 mL) subcutaneous insulin pen RxNorm: 602114 16 Unit(s) SQ daily 01/19/2013 01/25/2013 Inactive Sinemet 25 mg-100 mg tablet RxNorm: 044638 1 Tablet(s) PO BID one pill in morning , one at supper 01/19/2013 01/19/2013 Inactive glipizide 10 mg tablet RxNorm: 868801 1 Tablet(s) PO BID 201203/19/2013 Inactive Lantus Solostar 100 unit/mL (3 mL) Sub-Q Insulin Pen RxNorm: 634447 12 Unit(s) SQ daily 12/21/2012 01/18/2013 Inactive lisinopril 20 mg tablet RxNorm: 385162 1 Tablet(s) PO BID 12/0804/23/2013 Inactive metformin ER 500 mg tablet,extended release 24 hr RxNorm: 461031 1 Tablet(s) PO BID 11/30/2012 04/23/2013 Inactive Lantus Solostar 100 unit/mL (3 mL) Sub-Q Insulin Pen RxNorm: 051432 5 Unit(s) SQ daily 11/30/2012 12/07/2012 Inactive FINASTERIDE TAB 5MG RxNorm: 10/03/2012 Inactive lisinopril 20 mg tablet RxNorm: 773142 1 Tablet(s) PO BID 09/0812/06/2012 Inactive glipizide 10 mg tablet RxNorm: 958285 1 Tablet(s) PO BID 201212/30/2012 Inactive metronidazole 500 mg tablet RxNorm: 156451 1 Tablet(s) PO TID 05/30/2012 06/08/2012 Inactive metformin ER 500 mg tablet,extended release 24 hr RxNorm: 098893 2 Tablet(s) PO daily 04/22/2012 11/29/2012 Inactive metformin ER 500 mg tablet,extended release 24 hr RxNorm: 516316 2 Tablet(s) PO daily 04/21/2012 04/21/2012 Inactive ketoconazole 2 % Topical Cream RxNorm: 871701 1 Application TOP BID 04/14/2012 05/04/2012 Inactive ketoconazole 2 % Shampoo RxNorm: 579283 1 Application TOP every other day apply to feet, leave on for 5 minutes, then rinse. 04/14/2012 04/27/2012 Inactive clotrimazole 1 % Topical Cream RxNorm: 941314 1 Application TOP BID 02/22/2012 04/03/2012 Inactive glipizide 10 mg tablet RxNorm: 584401 1 Tablet(s) PO BID 201106/18/2012 Inactive lisinopril 20 mg tablet RxNorm: 776582 1 Tablet(s) PO BID 09/0108/26/2012 Inactive metformin ER 500 mg tablet,extended release 24 hr RxNorm: 639277 2 Tablet(s) PO daily 08/10/2011 04/20/2012 Inactive metformin ER 1,000 mg 24 hr Tab Ctrl Rel RxNorm: 308972 1 Tablet(s) PO daily 07/28/2011 08/09/2011 Inactive Kombiglyze XR 5 mg-1,000 mg 24 hr Tab RxNorm: 6858368 1 Tablet(s) PO daily 07/28/2011 07/27/2011 Inactive Kombiglyze XR 5 mg-1,000 mg 24 hr Tab RxNorm: 7296179 1 Tablet(s) PO daily 07/28/2011 07/28/2011 Inactive glipizide 10 mg tablet RxNorm: 136516 1 Tablet(s) PO BID 201107/27/2011 Inactive glipizide 10 mg Tab RxNorm: 721075 1 Tablet(s) PO BID 201106/16/2011 Inactive glipizide 10 mg Tab RxNorm: 049733 1 Tablet(s) PO BID 201006/15/2011 Inactive glipizide 10 mg Tab RxNorm: 639743 1 Tablet(s) PO BID 201004/01/2011 Inactive glipizide 10 mg Tab RxNorm: 789420 Tablet(s) PO BID 201003/31/2011 Inactive Calcium + Vitamin D 600 mg calcium-200 unit tablet RxNorm: 314852 1 Tablet(s) PO BID No Start Date Active pantoprazole 40 mg tablet,delayed release RxNorm: 268858 1 Tablet(s) PO daily No Start Date 12/25/2013 Inactive Sinemet 25 mg-100 mg tablet RxNorm: 409390 1/2 Tablet(s) PO BID one pill in morning, one at supper No Start Date 01/18 Inactive levothyroxine 100 mcg tablet RxNorm: 617056 1 Tablet(s) PO daily No Start Date 10/04/2016 Inactive lisinopril 20 mg Tab RxNorm: 351556 1 Tablet(s) PO BID No Start Date 09/01/2011 Inactive hydrocodone 5 mg-acetaminophen 325 mg tablet RxNorm: 059285 1-2 Tablet(s) PO Q6- 8H No Start Date 01/20/2016 Inactive pravastatin 10 mg tablet RxNorm: 912621 1 Tablet(s) PO daily No Start Date 04/23/2013 Inactive Medication Administered Medication Codes Instructions Start Date Status Kenalog 40 mg/mL suspension for injection RxNorm: 2700868 1Milliliter 07/30/2016 No longer Active Kenalog 40 mg/mL suspension for injection RxNorm: 1359966 1Milliliter 01/20/2016 No longer Active Immunizations Vaccine [...] Observation Code Item Item Code Result Date Folate Ord36 Folate 19.00 ng/mL 01/11/2018 B12 Znw942 B12 342.00 pg/ml 01/11/2018 Comp Metabolic Qko942 NA 134 mEq/L 09/17/2017 Comp Metabolic Cdq095 K 4.4 mEq/L 09/17/2017 Comp Metabolic Tox377 CL 98 mEq/L 09/17/2017 Comp Metabolic Hxh559 CO2 25.0 mEq/L 09/17/2017 Comp Metabolic Hje206 ANION GAP 15 09/17/2017 Comp Metabolic Cot269 GLUCOSE 97 mg/dL 09/17/2017 Comp Metabolic Bgf763 Creat 1.7 mg/dL 09/17/2017 Comp Metabolic Uki937 eGFR 40 ml/min/1.73m2 09/17/2017 Comp Metabolic Dru153 BUN 28 mg/dL 09/17/2017 Comp Metabolic Zrk210 B/C Ratio 16.2 Ratio 09/17/2017 Comp Metabolic Zyi876 CALCIUM 9.1 mg/dL 09/17/2017 Comp Metabolic Bbq744 ALK PHOS 76 U/L 09/17/2017 Comp Metabolic Ewz257 AST(SGOT) 17 U/L 09/17/2017 Comp Metabolic Mex130 ALT(SGPT) 15 U/L 09/17/2017 Comp Metabolic Hgb365 BILI T 0.7 mg/dL 09/17/2017 Comp Metabolic Cwl552 ALBUMIN 4.1 g/dL 09/17/2017 Comp Metabolic Cto724 TPRO 6.9 g/dL 09/17/2017 Comp Metabolic Sbr303 GLOB 2.8 g/dL 09/17/2017 Comp Metabolic Lzg892 A/G Ratio 1.5 Ratio 09/17/2017 Comp Metabolic Lxm600 Osmo 274 mOsmo 09/17/2017 Free T4 Tfg326 FREE T4 1.10 ng/dL 09/17/2017 Tsh Ord6 [...] 31.5 pg 09/17/2017 Cbc With Differential Ord2 [place]kins% 9.5 % 09/17/2017 Cbc With Differential Ord2 [...] 1.93 K/ul 09/17/2017 Cbc With Differential Ord2 [place] ABS# 0.7 K/ul 09/17/2017 Cbc With Differential Ord2 Eos ABS# 0.2 K/ul 09/17/2017 Cbc With Differential Ord2 Baso ABS# 0.0 K/ul 09/17/2017 %Hba1C Gkm694 % HbA1c 70463-3 6.8 % 09/17/2017 %Hba1C Mll292 Gluc Ave 148 mg/dL 09/17/2017 %Hba1C Uho194 % HbA1c 70294-0 7.0 % 05/13/2017 %Hba1C Cgb285 Gluc Ave 154 mg/dL 05/13/2017 Free T4 Ozh660 FREE T4 1.29 ng/dL 05/13/2017 Tsh Ord6 TSH (3rd IS) 4.14 uIU/mL 05/13/2017 Tsh Ord6 hTSH II 9.43 uIU/mL 02/02/2017 Comp Metabolic Apc677 NA 134 mEq/L 02/02/2017 Comp Metabolic Eqv078 K 4.4 mEq/L 02/02/2017 Comp Metabolic Xqj283 CL 99 mEq/L 02/02/2017 Comp Metabolic Kjb154 CO2 26.0 mEq/L 02/02/2017 Comp Metabolic Wvv107 ANION GAP 13 02/02/2017 Comp Metabolic Arp157 GLUCOSE 256 mg/dL 02/02/2017 Comp Metabolic Bcn275 Creat 1.6 mg/dL 02/02/2017 Comp Metabolic Lyj071 eGFR 45 ml/min/1.73m2 02/02/2017 Comp Metabolic Tir949 BUN 26 mg/dL 02/02/2017 Comp Metabolic Jsk208 B/C Ratio 16.6 Ratio 02/02/2017 Comp Metabolic Eib383 CALCIUM 8.7 mg/dL 02/02/2017 Comp Metabolic Fje376 ALK PHOS 63 U/L 02/02/2017 Comp Metabolic Iao093 AST(SGOT) 11 U/L 02/02/2017 Comp Metabolic Mzs391 ALT(SGPT) 9 U/L 02/02/2017 Comp Metabolic Juj862 BILI T 0.5 mg/dL 02/02/2017 Comp Metabolic Eps216 ALBUMIN 3.7 g/dL 02/02/2017 Comp Metabolic Npw891 TPRO 6.1 g/dL 02/02/2017 Comp Metabolic Nxx421 GLOB 2.4 g/dL 02/02/2017 Comp Metabolic Khl300 A/G Ratio 1.6 Ratio 02/02/2017 Comp Metabolic Cdy331 Osmo 282 mOsmo 02/02/2017 %Hba1C Xav180 % HbA1c 64658-3 7.5 % 02/02/2017 %Hba1C Ake308 Gluc Ave 169 mg/dL 02/02/2017 Free T4 Ulb058 FREE T4 1.23 ng/dL 02/02/2017 Cbc With [...] 93.0 fl 02/02/2017 Cbc With Differential Ord2 [place]kins% 9.6 % 02/02/2017 Cbc With Differential Ord2 [...] 2.61 K/ul 02/02/2017 Cbc With Differential Ord2 [place] ABS# 0.8 K/ul 02/02/2017 Cbc With Differential Ord2 Eos ABS# 0.2 K/ul 02/02/2017 Cbc With Differential Ord2 Baso ABS# 0.1 K/ul 02/02/2017 Total T3 Ord42 TT3 0.59 ng/ml 07/14/2016 Free T4 Yhq718 FREE T4 1.14 ng/dL 07/14/2016 Cbc With [...] 34.9 % 06/22/2016 Cbc With Differential Ord2 [place]% 9.9 % 06/22/2016 Cbc With Differential Ord2 [...] 2.41 K/ul 06/22/2016 Cbc With Differential Ord2 [place] ABS# 0.7 K/ul 06/22/2016 Cbc With Differential Ord2 Eos ABS# 0.2 K/ul 06/22/2016 Cbc With Differential Ord2 Baso ABS# 0.0 K/ul 06/22/2016 Comp Metabolic Bvk372 NA 134 mEq/L 06/22/2016 Comp Metabolic Sta013 K 4.3 mEq/L 06/22/2016 Comp Metabolic Ucg129 CL 100 mEq/L 06/22/2016 Comp Metabolic Jla477 CO2 26.0 mEq/L 06/22/2016 Comp Metabolic Isa117 ANION GAP 12 06/22/2016 Comp Metabolic Bxt443 GLUCOSE 222 mg/dL 06/22/2016 Comp Metabolic How093 Creat 1.5 mg/dL 06/22/2016 Comp Metabolic Lpi381 eGFR 49 ml/min/1.73m2 06/22/2016 Comp Metabolic Yhn294 BUN 23 mg/dL 06/22/2016 Comp Metabolic Czg226 B/C Ratio 15.9 Ratio 06/22/2016 Comp Metabolic Ura015 CALCIUM 9.0 mg/dL 06/22/2016 Comp Metabolic Acv479 ALK PHOS 59 U/L 06/22/2016 Comp Metabolic Ewh260 AST(SGOT) 13 U/L 06/22/2016 Comp Metabolic Brd555 ALT(SGPT) 11 U/L 06/22/2016 Comp Metabolic Dct860 BILI T 0.5 mg/dL 06/22/2016 Comp Metabolic Ivl463 ALBUMIN 3.8 g/dL 06/22/2016 Comp Metabolic Pnm312 TPRO 6.2 g/dL 06/22/2016 Comp Metabolic Iwu104 GLOB 2.4 g/dL 06/22/2016 Comp Metabolic Tid432 A/G Ratio 1.6 Ratio 06/22/2016 Comp Metabolic Gtx956 Osmo 279 mOsmo 06/22/2016 Tsh Ord6 hTSH II 0.44 uIU/mL 06/22/2016 Comp Metabolic Wti832 NA 134 mEq/L 04/27/2016 Comp Metabolic Oty174 K 4.6 mEq/L 04/27/2016 Comp Metabolic Yws685 CL 99 mEq/L 04/27/2016 Comp Metabolic Gog829 CO2 27.0 mEq/L 04/27/2016 Comp Metabolic Ydf770 ANION GAP 13 04/27/2016 Comp Metabolic Wfh215 GLUCOSE 178 mg/dL 04/27/2016 Comp Metabolic Cor488 Creat 1.4 mg/dL 04/27/2016 Comp Metabolic Zrr564 eGFR 53 ml/min/1.73m2 04/27/2016 Comp Metabolic Yek139 BUN 24 mg/dL 04/27/2016 Comp Metabolic Btj431 B/C Ratio 17.5 Ratio 04/27/2016 Comp Metabolic Wcy284 CALCIUM 9.1 mg/dL 04/27/2016 Comp Metabolic Zwy952 ALK PHOS 72 U/L 04/27/2016 Comp Metabolic Dlm607 AST(SGOT) 16 U/L 04/27/2016 Comp Metabolic Shi342 ALT(SGPT) 12 U/L 04/27/2016 Comp Metabolic Ktv088 BILI T 0.6 mg/dL 04/27/2016 Comp Metabolic Htg021 ALBUMIN 4.1 g/dL 04/27/2016 Comp Metabolic Obw245 TPRO 6.8 g/dL 04/27/2016 Comp Metabolic Zpy475 GLOB 2.7 g/dL 04/27/2016 Comp Metabolic Iya998 A/G Ratio 1.6 Ratio 04/27/2016 Comp Metabolic Pth390 Osmo 277 mOsmo 04/27/2016 Cbc With Differential [...] 33.1 % 04/27/2016 Cbc With Differential Ord2 [place]% 9.7 % 04/27/2016 Cbc With Differential Ord2 [...] 2.89 K/ul 04/27/2016 Cbc With Differential Ord2 [place] ABS# 0.9 K/ul 04/27/2016 Cbc With Differential Ord2 Eos ABS# 0.2 K/ul 04/27/2016 Cbc With Differential Ord2 Baso ABS# 0.0 K/ul 04/27/2016 %Hba1C Vpz172 % HbA1c 08611-4 7.2 % 04/27/2016 %Hba1C Cis881 Gluc Ave 160 mg/dL 04/27/2016 Cbc With [...] 31.0 pg 01/21/2016 Cbc With Differential Ord2 [place]% 8.9 % 01/21/2016 Cbc With Differential Ord2 [...] 1.91 K/ul 01/21/2016 Cbc With Differential Ord2 [place] ABS# 0.6 K/ul 01/21/2016 Cbc With Differential Ord2 Eos ABS# 0.2 K/ul 01/21/2016 Cbc With Differential Ord2 Baso ABS# 0.0 K/ul 01/21/2016 Comp Metabolic Mmn421 NA 134 mEq/L 01/21/2016 Comp Metabolic Gdg926 K 5.0 mEq/L 01/21/2016 Comp Metabolic Lgq041 CL 99 mEq/L 01/21/2016 Comp Metabolic Bjt566 CO2 26.0 mEq/L 01/21/2016 Comp Metabolic Kry605 ANION GAP 14 01/21/2016 Comp Metabolic Nah891 GLUCOSE 260 mg/dL 01/21/2016 Comp Metabolic Rga064 Creat 1.5 mg/dL 01/21/2016 Comp Metabolic Yqb888 eGFR 50 ml/min/1.73m2 01/21/2016 Comp Metabolic Cnz625 BUN 18 mg/dL 01/21/2016 Comp Metabolic Atw007 B/C Ratio 12.4 Ratio 01/21/2016 Comp Metabolic Oof846 CALCIUM 8.8 mg/dL 01/21/2016 Comp Metabolic Tsq241 ALK PHOS 68 U/L 01/21/2016 Comp Metabolic Iti487 AST(SGOT) 16 U/L 01/21/2016 Comp Metabolic Wwh390 ALT(SGPT) 16 U/L 01/21/2016 Comp Metabolic Ezi176 BILI T 0.5 mg/dL 01/21/2016 Comp Metabolic Rvh237 ALBUMIN 3.8 g/dL 01/21/2016 Comp Metabolic Rph145 TPRO 6.3 g/dL 01/21/2016 Comp Metabolic Cmm091 GLOB 2.5 g/dL 01/21/2016 Comp Metabolic Gfy883 A/G Ratio 1.5 Ratio 01/21/2016 Comp Metabolic Svm096 Osmo 279 mOsmo 01/21/2016 %Hba1C Rds337 % HbA1c 40756-8 7.4 % 01/21/2016 %Hba1C Def418 Gluc Ave 166 mg/dL 01/21/2016 Metabolic Ord15 [...] Qnt Crqnt CRP 1.5 mg/dl 09/17/2015 %Hba1C Gma803 % HbA1c 59803-0 7.1 % 09/17/2015 %Hba1C Dyf959 Gluc Ave 157 mg/dL 09/17/2015 Cbc With [...] 31.7 pg 08/06/2015 Cbc With Differential Ord2 [place]% 9.6 % 08/06/2015 Cbc With Differential Ord2 [...] 2.90 K/ul 08/06/2015 Cbc With Differential Ord2 [place] ABS# 0.7 K/ul 08/06/2015 Cbc With Differential Ord2 Eos ABS# 0.2 K/ul 08/06/2015 Cbc With Differential Ord2 Baso ABS# 0.0 K/ul 08/06/2015 Cbc With Differential Ord2 New Analyzer Notice Please note new ref ranges starting 05-01-2015 due to implemntation of new five part differential hematolgy analyzer. 08/06/2015 Comp Metabolic Sey675 NA 132 mEq/L 08/06/2015 Comp Metabolic Pnb895 K 4.6 mEq/L 08/06/2015 Comp Metabolic Sld556 CL 98 mEq/L 08/06/2015 Comp Metabolic Mfh635 CO2 25.0 mEq/L 08/06/2015 Comp Metabolic Ocd795 ANION GAP 14 08/06/2015 Comp Metabolic Efu324 GLUCOSE 170 mg/dL 08/06/2015 Comp Metabolic Uar571 Creat 1.5 mg/dL 08/06/2015 Comp Metabolic Gxa657 eGFR 46 ml/min/1.73m2 08/06/2015 Comp Metabolic Pjl987 BUN 21 mg/dL 08/06/2015 Comp Metabolic Few781 B/C Ratio 13.6 Ratio 08/06/2015 Comp Metabolic Ach236 CALCIUM 8.9 mg/dL 08/06/2015 Comp Metabolic Hwh841 ALK PHOS 60 U/L 08/06/2015 Comp Metabolic Lpx426 AST(SGOT) 16 U/L 08/06/2015 Comp Metabolic Nth335 ALT(SGPT) 18 U/L 08/06/2015 Comp Metabolic Ydj418 BILI T 0.4 mg/dL 08/06/2015 Comp Metabolic Soi559 ALBUMIN 3.8 g/dL 08/06/2015 Comp Metabolic Jlr000 TPRO 6.3 g/dL 08/06/2015 Comp Metabolic Czf378 GLOB 2.5 g/dL 08/06/2015 Comp Metabolic Ith615 A/G Ratio 1.6 Ratio 08/06/2015 Comp Metabolic Rxz780 Osmo 271 mOsmo 08/06/2015 Tsh Ord6 hTSH II 0.95 uIU/mL 06/17/2015 Free T4 Lnf610 FREE T4 1.08 ng/dL 06/17/2015 Metabolic Ord15 [...] Ord15 CALCIUM 9.0 mg/dL 05/06/2015 Comp Metabolic Rus156 NA 143 mEq/L 03/04/2015 Comp Metabolic Tps685 K 4.5 mEq/L 03/04/2015 Comp Metabolic Zui931 CL 92 mEq/L 03/04/2015 Comp Metabolic Ugm408 CO2 24.0 mEq/L 03/04/2015 Comp Metabolic Xwf027 ANION GAP 32 03/04/2015 Comp Metabolic Yrx176 GLUCOSE 72 mg/dL 03/04/2015 Comp Metabolic Mgn302 Creat 1.5 mg/dL 03/04/2015 Comp Metabolic Ckx019 eGFR 48 ml/min/1.73m2 03/04/2015 Comp Metabolic Esa567 BUN 27 mg/dL 03/04/2015 Comp Metabolic Fhk157 B/C Ratio 18.0 Ratio 03/04/2015 Comp Metabolic Pht164 CALCIUM 9.1 mg/dL 03/04/2015 Comp Metabolic Ctd014 ALK PHOS 58 U/L 03/04/2015 Comp Metabolic Wyx016 AST(SGOT) 16 U/L 03/04/2015 Comp Metabolic Ppf571 ALT(SGPT) 13 U/L 03/04/2015 Comp Metabolic Qjo753 BILI T 0.6 mg/dL 03/04/2015 Comp Metabolic Ktx755 ALBUMIN 4.0 g/dL 03/04/2015 Comp Metabolic Zeq407 TPRO 6.6 g/dL 03/04/2015 Comp Metabolic Ggn094 GLOB 2.6 g/dL 03/04/2015 Comp Metabolic Ffw071 A/G Ratio 1.6 Ratio 03/04/2015 Comp Metabolic Omi775 Osmo 289 mOsmo 03/04/2015 %Hba1C Cml287 % HbA1c 39035-2 7.3 % 01/28/2015 %Hba1C Tuj157 Gluc Ave 163 mg/dL 01/28/2015 MICRALUR 4612537 MICRL MG/L 13.2 MG/L 10/01/2014 MICRALUR 4341177 XM.ALB/CRE 48.9 MG/GCR 10/01/2014 MICRALUR 9487608 CREAT MG/D 27 MG/DL 10/01/2014 MICRALUR 9387085 CRE/100 0.27 G/L 10/01/2014 A1C HPLC 2311250 A1C HPLC 30705-5 7.3 % 10/01/2014 TSH 0926531 TSH 0.423 uIU/ML 10/01/2014 TSH 7875421 TSH 0.612 uIU/ML 10/18/2013 A1C HPLC 2888595 A1C HPLC 69321-2 6.8 % 10/18/2013 GFR CALC 6014398 GFR AA >60 ML/MIN 10/18/2013 GFR CALC 0878486 GFR NON-AA 52.0L ML/MIN 10/18/2013 LIPID GRP HDL TEST 30 MG/DL 10/18/2013 LIPID GRP TRIG 425 MG/DL 10/18/2013 LIPID GRP TEST LDL HI TRIG MG/DL 10/18/2013 LIPID GRP CHOL 185 MG/DL 10/18/2013 LIPID GRP RCHOL/HDL 6.17 RATIO 10/18/2013 MICRALUR MICRL MG/L 15.6 MG/L 10/18/2013 MICRALUR XM.ALB/CRE 9.2 MG/GCR 10/18/2013 MICRALUR CREAT MG/D 169 MG/DL 10/18/2013 MICRALUR CRE/100 1.69 G/L 10/18/2013 CHEM 14 1944894 AST 20 U/L 10/18/2013 CHEM 14 3664177 ALT 13 IU/L 10/18/2013 CHEM 14 9819601 BUN 27 MG/DL 10/18/2013 CHEM 14 9838233 ALBUMIN 4.2 GM/DL 10/18/2013 CHEM 14 0844078 CHLORIDE 100 MMOL/L 10/18/2013 CHEM 14 4059250 BILI TOT 0.5 MG/DL 10/18/2013 CHEM 14 2408767 ALK PHOS 60 U/L 10/18/2013 CHEM 14 1346679 SODIUM 131 MMOL/L 10/18/2013 CHEM 14 1669421 CREATININE 1.32 MG/DL 10/18/2013 CHEM 14 0181065 CALCIUM 9.2 MG/DL 10/18/2013 CHEM 14 0844106 POTASSIUM 4.7 MMOL/L 10/18/2013 CHEM 14 4464267 PROT TOT 7.7 GM/DL 10/18/2013 CHEM 14 9165145 GLUCOSE 140 MG/DL 10/18/2013 CHEM 14 7431370 BICARB 24 MMOL/L 10/18/2013 CHEM 14 2751370 ANION GAP 7 MEQ/L 10/18/2013 PSA EQ 20110613 PSA EQ 7.79 NG/ML 10/18/2013 CBC 6326819 WBC 6.6 10e9/L 10/18/2013 CBC 8508111 RBC 4.58 10e12/L 10/18/2013 CBC 2279721 HGB 14.6 g/dL 10/18/2013 CBC 6322983 HCT DET 42.8 % 10/18/2013 CBC 5260133 MCV 93.4 fL 10/18/2013 CBC 7181691 MCH 31.9 pg 10/18/2013 CBC 6414076 MCHC 34.1 g/dL 10/18/2013 CBC 3221718 PLT 172 10e9/L 10/18/2013 CBC 2083104 MPV 9.3 fL 10/18/2013 CBC 8124639 JAYESH % 55.4 % 10/18/2013 CBC 4586568 LY % 33.0 % 10/18/2013 CBC 4861942 MON % 8.8 % 10/18/2013 CBC 3476533 EOS % 2.6 % 10/18/2013 CBC 4930096 BASO % 0.2 % 10/18/2013 CBC 7789889 RDW 12.7 % 10/18/2013 CBC 1475704 ABS JAYESH 3.66 10e9/L 10/18/2013 CBC 8086194 ABS LYMPH 2.18 10e9/L 10/18/2013 CBC 9989144 ABS MONO 0.58 10e9/L 10/18/2013 CBC 1367432 ABS EOS 0.17 10e9/L 10/18/2013 CBC 5125782 ABS BASO 0.01 10e9/L 10/18/2013 CBC 2666183 RDW-SD 42.6 fL 10/18/2013 TSH 3001943 TSH 1.257 uIU/ML 05/05/2013 CHEM 14 5675160 AST 15 U/L 05/05/2013 CHEM 14 2491670 ALT 13 IU/L 05/05/2013 CHEM 14 1859496 BUN 22 MG/DL 05/05/2013 CHEM 14 2257197 ALBUMIN 4.2 GM/DL 05/05/2013 CHEM 14 6850456 CHLORIDE 104 MMOL/L 05/05/2013 CHEM 14 3835891 BILI TOT 0.6 MG/DL 05/05/2013 CHEM 14 8266596 ALK PHOS 52 U/L 05/05/2013 CHEM 14 3151436 SODIUM 137 MMOL/L 05/05/2013 CHEM 14 3985263 CREATININE 1.25 MG/DL 05/05/2013 CHEM 14 6918864 CALCIUM 9.1 MG/DL 05/05/2013 CHEM 14 4496835 POTASSIUM 5.0 MMOL/L 05/05/2013 CHEM 14 8744999 PROT TOT 6.7 GM/DL 05/05/2013 CHEM 14 1423277 GLUCOSE 142 MG/DL 05/05/2013 CHEM 14 5388725 BICARB 27 MMOL/L 05/05/2013 CHEM 14 8565615 ANION GAP 6 MEQ/L 05/05/2013 GFR CALC 5694044 GFR AA >60 ML/MIN 05/05/2013 GFR CALC 8298317 GFR NON-AA 56.0L ML/MIN 05/05/2013 CBC 4367851 WBC 6.1 10e9/L 05/05/2013 CBC 2818210 RBC 4.74 10e12/L 05/05/2013 CBC 2864988 HGB 14.7 g/dL 05/05/2013 CBC 3499859 HCT DET 43.6 % 05/05/2013 CBC 8512392 MCV 92.0 fL 05/05/2013 CBC 7375972 MCH 31.0 pg 05/05/2013 CBC 2588677 MCHC 33.7 g/dL 05/05/2013 CBC 3058907 PLT 168 10e9/L 05/05/2013 CBC 7898805 MPV 9.3 fL 05/05/2013 CBC 1705187 JAYESH % 53.2 % 05/05/2013 CBC 4950547 LY % 35.3 % 05/05/2013 CBC 4222905 MON % 8.7 % 05/05/2013 CBC 5130890 EOS % 2.5 % 05/05/2013 CBC 2475716 BASO % 0.3 % 05/05/2013 CBC 2013849 RDW 13.5 % 05/05/2013 CBC 2743420 ABS JAYESH 3.25 10e9/L 05/05/2013 CBC 7876553 ABS LYMPH 2.15 10e9/L 05/05/2013 CBC 7744369 ABS MONO 0.53 10e9/L 05/05/2013 CBC 1805183 ABS EOS 0.15 10e9/L 05/05/2013 CBC 5710208 ABS BASO 0.02 10e9/L 05/05/2013 CBC 3392194 RDW-SD 44.8 fL 05/05/2013 A1C HPLC 4716791 A1C HPLC 02775-7 6.4 % 05/05/2013 LIPID GRP 7950843 HDL TEST 32 MG/DL 05/05/2013 LIPID GRP TRIG 170 MG/DL 05/05/2013 LIPID GRP 8733043 TEST LDL 73 MG/DL 05/05/2013 LIPID GRP CHOL 139 MG/DL 05/05/2013 LIPID GRP RCHOL/HDL 4.34 RATIO 05/05/2013 CHEM 14 1091868 AST 17 U/L 11/25/2012 CHEM 14 6094932 ALT 21 IU/L 11/25/2012 CHEM 14 7937854 BUN 20 MG/DL 11/25/2012 CHEM 14 5161618 ALBUMIN 4.4 GM/DL 11/25/2012 CHEM 14 4056698 CHLORIDE 99 MMOL/L 11/25/2012 CHEM 14 2417232 BILI TOT 0.6 MG/DL 11/25/2012 CHEM 14 0333040 ALK PHOS 50 U/L 11/25/2012 CHEM 14 5215741 SODIUM 129 MMOL/L 11/25/2012 CHEM 14 7858784 CREATININE 1.20 MG/DL 11/25/2012 CHEM 14 0389130 CALCIUM 9.2 MG/DL 11/25/2012 CHEM 14 7644330 POTASSIUM 5.1 MMOL/L 11/25/2012 CHEM 14 9274602 PROT TOT 6.7 GM/DL 11/25/2012 CHEM 14 2553261 GLUCOSE 196 MG/DL 11/25/2012 CHEM 14 2441054 BICARB 25 MMOL/L 11/25/2012 CHEM 14 1805466 ANION GAP 5 MEQ/L 11/25/2012 CBC 1427878 WBC 6.1 10e9/L 11/25/2012 CBC 7655106 RBC 4.78 10e12/L 11/25/2012 CBC 1815536 HGB 15.0 g/dL 11/25/2012 CBC 2470008 HCT DET 43.4 % 11/25/2012 CBC 8435905 MCV 90.8 fL 11/25/2012 CBC 3716249 MCH 31.4 pg 11/25/2012 CBC 4776161 MCHC 34.6 g/dL 11/25/2012 CBC 0986063 PLT 174 10e9/L 11/25/2012 CBC 5101698 MPV 9.5 fL 11/25/2012 CBC 2541095 JAYESH % 54.6 % 11/25/2012 CBC 7653330 LY % 32.9 % 11/25/2012 CBC 7253053 MON % 9.6 % 11/25/2012 CBC 4374652 EOS % 2.6 % 11/25/2012 CBC 7930806 BASO % 0.3 % 11/25/2012 CBC 8442640 RDW 12.9 % 11/25/2012 CBC 7057735 ABS JAYESH 3.33 10e9/L 11/25/2012 CBC 6092909 ABS LYMPH 2.01 10e9/L 11/25/2012 CBC 6099479 ABS MONO 0.59 10e9/L 11/25/2012 CBC 7231859 ABS EOS 0.16 10e9/L 11/25/2012 CBC 1624877 ABS BASO 0.02 10e9/L 11/25/2012 CBC 4771779 RDW-SD 42.3 fL 11/25/2012 LIPID GRP HDL TEST 39 MG/DL 11/25/2012 LIPID GRP TRIG 204 MG/DL 11/25/2012 LIPID GRP TEST LDL 100 MG/DL 11/25/2012 LIPID GRP CHOL 180 MG/DL 11/25/2012 LIPID GRP RCHOL/HDL 4.62 RATIO 11/25/2012 A1C HPLC 5136795 A1C HPLC 45723-9 8.2 % 11/25/2012 GFR CALC 5260119 GFR AA >60 ML/MIN 11/25/2012 GFR CALC 6197923 GFR NON-AA 58.0L ML/MIN 11/25/2012 TSH 6833425 TSH 0.636 uIU/ML 01/13/2012 A1C HPLC 2417034 A1C HPLC 46022-0 7.9 % 01/13/2012 GFR CALC 8600579 GFR AA >60 ML/MIN 01/13/2012 GFR CALC 0638905 GFR NON-AA 59.0L ML/MIN 01/13/2012 CBC 7067774 WBC 7.8 10e9/L 01/13/2012 CBC 7518825 RBC 4.93 10e12/L 01/13/2012 CBC 0223339 HGB 15.3 g/dL 01/13/2012 CBC 1755916 HCT DET 43.6 % 01/13/2012 CBC 1321804 MCV 88.4 fL 01/13/2012 CBC 9289162 MCH 31.0 pg 01/13/2012 CBC 1851285 MCHC 35.1 g/dL 01/13/2012 CBC 7868869 PLT 173 10e9/L 01/13/2012 CBC 8010335 MPV 9.1 fL 01/13/2012 CBC 8389129 JAYESH % 57.6 % 01/13/2012 CBC 1108316 LY % 31.5 % 01/13/2012 CBC 1795244 MON % 8.8 % 01/13/2012 CBC 6830517 EOS % 1.8 % 01/13/2012 CBC 8733490 BASO % 0.3 % 01/13/2012 CBC 8963110 RDW 12.9 % 01/13/2012 CBC 7404016 ABS JAYESH 4.49 10e9/L 01/13/2012 CBC 8074861 ABS LYMPH 2.46 10e9/L 01/13/2012 CBC 0029184 ABS MONO 0.69 10e9/L 01/13/2012 CBC 4312130 ABS EOS 0.14 10e9/L 01/13/2012 CBC 4162678 ABS BASO 0.02 10e9/L 01/13/2012 CBC 5280418 RDW-SD 41.2 fL 01/13/2012 CHEM 14 2305918 AST 21 U/L 01/13/2012 CHEM 14 1930355 ALT 23 IU/L 01/13/2012 CHEM 14 6771076 BUN 20 MG/DL 01/13/2012 CHEM 14 5021680 ALBUMIN 4.4 GM/DL 01/13/2012 CHEM 14 7490463 CHLORIDE 94 MMOL/L 01/13/2012 CHEM 14 9163757 BILI TOT 0.5 MG/DL 01/13/2012 CHEM 14 7016996 ALK PHOS 60 U/L 01/13/2012 CHEM 14 2655851 SODIUM 131 MMOL/L 01/13/2012 CHEM 14 8783007 CREATININE 1.20 MG/DL 01/13/2012 CHEM 14 4602463 CALCIUM 9.5 MG/DL 01/13/2012 CHEM 14 3911149 POTASSIUM 4.3 MMOL/L 01/13/2012 CHEM 14 4647833 PROT TOT 6.5 GM/DL 01/13/2012 CHEM 14 5544970 GLUCOSE 172 MG/DL 01/13/2012 CHEM 14 2471387 BICARB 26 MMOL/L 01/13/2012 CHEM 14 5665249 ANION GAP 11 MEQ/L 01/13/2012 Review of [...] clear 01/11/2018 None Full Exam - General 1995 Ears/Nose/Throat oral cavity/pharynx/larynx Overall: no masses 01/11/2018 [...] sounds 02/28/2014 None Full Exam - General 1995 Cardiovascular auscultation of heart Overall: no murmurs 02/28/2014 None Full Exam - General 1995 Abdomen abdominal exam Overall: no tenderness 02/28/2014 None Full Exam - General 1995 Abdomen abdominal exam Overall: normal bowel sounds 02/28/2014 None Full Exam - General 1995 Musculoskeletal [...] clear 09/02/2011 None Full Exam - General 1995 [...] bilaterally 07/01/2011 None Full Exam - General 1995 Respiratory respiratory effort/rhythm Overall: normal rate 07/01/2011 [...] WOUN RTS (CULTURE OTHR SPECIMN AEROBIC) CPT-4: 33015 03/19/2015 DRAINAGE OF SKIN ABSCESS CPT-4: 94312 03/19/2015 ADMIN PNEUMOCOCCAL VACCINE SNOMED CT: 74201657 CPT-4: G0009 03/08/2015 PNEUMOCOCCAL VACC 13 THALIA IM Formatting Model/CDA Sections, Assigned to SNOMED CT: 43911415 CPT-4: 03429Pxyocxu 03/08/2015 ADMIN PNEUMOCOCCAL VACCINE SNOMED CT: 17627744 CPT-4: G0009 01/23/2014 Pneumococcal Polysaccharide Vaccine, 23-Valent, Ad Assigned to/Merissa Sutton CPT-4: 81464Plcnueb 01/23/2014 DESTRUCT PREMALG LESION CPT-4: 78648 10/24/2013 DESTRUCT PREMALG LES 2-14 CPT-4: 78080 10/24/2013 ROUTINE VENIPUNCTURE CPT-4: 62821 05/05/2013 PRESCRIP TRANSMIT VIA ERX SY CPT-4: G8553 04/24/2013 DESTRUCT PREMALG LESION CPT-4: 82365 12/26/2012 PRESCRIP TRANSMIT VIA ERX SY CPT-4: G8553 11/30/2012 ROUTINE VENIPUNCTURE CPT-4: 99360 11/25/2012 PRESCRIP TRANSMIT VIA ERX SY CPT-4: G8553 05/30/2012 PRESCRIP TRANSMIT VIA ERX SY CPT-4: G8553 04/14/2012 PRESCRIP TRANSMIT VIA ERX SY CPT-4: G8553 02/22/2012 ROUTINE VENIPUNCTURE CPT-4: 28867 01/13/2012 ROUTINE VENIPUNCTURE CPT-4: 16391 08/06/2011 ROUTINE VENIPUNCTURE CPT-4: 61886 06/25/2011 Vital Signs Date Vital 02/17/2018 Blood Pressure 1: 140/74 Code : 8480-6 BMI: 29.7 Code : 13634-2 Heart Rate 1 : 67 bpm Height: 6'2" SpO2: 98% Waist Measure (cm): 112 cm Weight: 231 lbs 01/11/2018 Blood Pressure 1: 140/80 Code : 8480-6 BMI: 29.4 Code : 85410-6 Heart Rate 1 : 72 bpm Height: 6'2" SpO2: 92% Weight: 229 lbs 09/16/2017 Blood Pressure 1: 136/78 Code : 8480-6 BMI: 28.8 Code : 40903-1 Heart Rate 1 : 74 bpm Height: 6'2" SpO2: 94% Weight: 224 lbs 07/13/2017 Blood Pressure 1: 142/78 Code : 8480-6 BMI: 29.3 Code : 79572-4 Heart Rate 1 : 67 bpm Height: 6'2" SpO2: 97% Weight: 228 lbs 05/13/2017 Blood Pressure 1: 154/82 Code : 8480-6 BMI: 30.0 Code : 18822-4 Heart Rate 1 : 65 bpm Height: 6'2" SpO2: 98% Weight: 234 lbs 04/28/2017 Blood Pressure 1: 134/78 Code : 8480-6 BMI: 29.7 Code : 45806-3 Heart Rate 1 : 73 bpm Height: 6'2" SpO2: 94% Weight: 231 lbs 04/15/2017 Blood Pressure 1: 152/74 Code : 8480-6 BMI: 29.7 Code : 79975-1 Heart Rate 1 : 64 bpm Height: 6'2" SpO2: 98% Weight: 231 lbs 02/04/2017 Blood Pressure 1: 140/78 Code : 8480-6 BMI: 30.0 Code : 29848-2 Heart Rate 1 : 83 bpm Height: 6'2" SpO2: 97% Weight: 234 lbs 10/12/2016 Blood Pressure 1: 148/68 Code : 8480-6 BMI: 29.3 Code : 41333-6 Heart Rate 1 : 65 bpm Height: 6'2" SpO2: 100% Weight: 228 lbs 10/08/2016 Blood Pressure 1: 148/68 Code : 8480-6 BMI: 29.3 Code : 79800-6 Heart Rate 1 : 65 bpm Height: 6'2" SpO2: 100% Weight: 228 lbs 8 oz 09/10/2016 Blood Pressure 1: 142/68 Code : 8480-6 BMI: 29.3 Code : 44713-8 Heart Rate 1 : 75 bpm Height: 6'2" SpO2: 97% Weight: 228 lbs 08/24/2016 Blood Pressure 1: 156/86 Code : 8480-6 BMI: 28.1 Code : 27960-7 Heart Rate 1 : 72 bpm Height: 6'2" SpO2: 97% Weight: 219 lbs 08/06/2016 Blood Pressure 1: 172/90 Code : 8480-6 BMI: 29.0 Code : 73317-3 Heart Rate 1 : 68 bpm Height: 6'2" SpO2: 98% Temperature: 36.1 (C) / 96.9 (F) Weight: 226 lbs 07/30/2016 Blood Pressure 1: 138/86 Code : 8480-6 BMI: 29.7 Code : 97407-3 Heart Rate 1 : 80 bpm Height: 6'2" SpO2: 95% Temperature: 36.5 (C) / 97.7 (F) Weight: 231 lbs 06/22/2016 Blood Pressure 1: 145/82 Code : 8480-6 Heart Rate 1: 77 bpm Respiratory Rate : 18 bpm SpO2: 97% Weight: 231 lbs 04/27/2016 Blood Pressure 1: 158/76 Code : 8480-6 Blood Pressure 1: 182/78 Code: 8480-6 BMI: 30.4 Code: 07192-7 Heart Rate 1: 69 bpm Height: 6'2" SpO2: 97% Weight: 237 lbs 03/23/2016 Blood Pressure 1: 140/82 Code : 8480-6 BMI: 30.4 Code : 59883-8 Heart Rate 1 : 77 bpm Height: 6'2" SpO2: 93% Weight: 237 lbs 01/20/2016 Blood Pressure 1: 142/80 Code : 8480-6 BMI: 31.2 Code : 49802-2 Heart Rate 1 : 64 bpm Height: 6'2" SpO2: 93% Weight: 243 lbs 12/16/2015 Blood Pressure 1: 138/88 Code : 8480-6 BMI: 30.3 Code : 95085-1 Heart Rate 1 : 62 bpm Height: 6'2" SpO2: 97% Weight: 236 lbs 12/09/2015 Blood Pressure 1: 148/80 Code : 8480-6 Blood Pressure 1: 198/92 Code: 8480-6 Blood Pressure 1: 152/70 Code: 8480-6 BMI: 30.3 Code: 81389-3 Heart Rate 1: 84 bpm Height: 6'2" Weight: 236 lbs 11/25/2015 Blood Pressure 1: 160/80 Code : 8480-6 BMI: 30.2 Code : 37663-3 Heart Rate 1 : 68 bpm Height: 6'2" SpO2: 96% Weight: 235 lbs 09/02/2015 Blood Pressure 1: 122/64 Code : 8480-6 BMI: 30.2 Code : 87905-9 Heart Rate 1 : 86 bpm Height: 6'2" SpO2: 98% Weight: 235 lbs 08/05/2015 Blood Pressure 1: 130/70 Code : 8480-6 Heart Rate 1: 81 bpm SpO2: 97% Weight: 233 lbs 07/25/2015 Blood Pressure 1: 142/80 Code : 8480-6 BMI: 30.0 Code : 62483-3 Heart Rate 1 : 74 bpm Height: 6'2" SpO2: 95% Weight: 234 lbs 06/03/2015 Blood Pressure 1: 150/68 Code : 8480-6 BMI: 30.0 Code : 12010-6 Heart Rate 1 : 66 bpm Height: 6'2" SpO2: 96% Weight: 234 lbs 03/19/2015 Blood Pressure 1: 154/78 Code : 8480-6 BMI: 30.3 Code : 86576-4 Heart Rate 1 : 63 bpm Height: 6'2" SpO2: 96% Weight: 236 lbs 03/04/2015 Blood Pressure 1: 124/68 Code : 8480-6 BMI: 30.2 Code : 56770-9 Heart Rate 1 : 60 bpm Height: 6'2" SpO2: 97% Weight: 235 lbs 02/20/2015 Blood Pressure 1: 160/84 Code : 8480-6 BMI: 30.8 Code : 08727-7 Heart Rate 1 : 79 bpm Height: 6'2" SpO2: 96% Weight: 240 lbs 02/11/2015 Blood Pressure 1: 170/102 Code: 8480-6 BMI: 31.1 Code: 55771-0 Heart Rate 1: 81 bpm Height: 6'2" SpO2: 96% Weight: 242 lbs 01/28/2015 Blood Pressure 1: 174/80 Code : 8480-6 Blood Pressure 2: 168/74 Code: 8480-6 BMI: 31.2 Code: 28988-2 Heart Rate 1: 74 bpm Height: 6'2" SpO2: 97% Weight: 243 lbs 10/01/2014 Blood Pressure 1: 152/84 Code : 8480-6 BMI: 30.4 Code : 95225-5 Heart Rate 1 : 80 bpm Height: 6'2" SpO2: 96% Weight: 237 lbs 05/30/2014 Blood Pressure 1: 140/82 Code : 8480-6 BMI: 30.6 Code : 10595-9 Heart Rate 1 : 86 bpm Height: 6'2" Weight: 238 lbs 02/28/2014 Blood Pressure 1: 152/86 Code : 8480-6 BMI: 29.5 Code : 67671-0 Heart Rate 1 : 64 bpm Height: 6'2" Weight: 230 lbs 01/23/2014 Blood Pressure 1: 142/68 Code : 8480-6 BMI: 29.7 Code : 12047-6 Heart Rate 1 : 80 bpm Height: 6'2" Weight: 231 lbs 12/26/2013 Blood Pressure 1: 150/72 Code : 8480-6 BMI: 29.3 Code : 84271-7 Heart Rate 1 : 60 bpm Height: 6'2" Respiratory Rate: 16 bpm Weight: 228 lbs 8 oz 10/24/2013 Blood Pressure 1: 140/84 Code : 8480-6 Heart Rate 1: 60 bpm 10/17/2013 Blood Pressure 1: 166/72 Code : 8480-6 BMI: 28.8 Code : 14438-0 Heart Rate 1 : 68 bpm Height: 6'2" Weight: 224 lbs 07/24/2013 Blood Pressure 1: 112/64 Code : 8480-6 BMI: 29.1 Code : 30631-0 Heart Rate 1 : 80 bpm Height: 6'2" Weight: 227 lbs 04/24/2013 Blood Pressure 1: 130/74 Code : 8480-6 BMI: 28.9 Code : 14876-9 Heart Rate 1 : 76 bpm Height: 6'2" Weight: 225 lbs 6 oz 03/20/2013 Blood Pressure 1: 150/70 Code : 8480-6 BMI: 29.7 Code : 60315-3 Heart Rate 1 : 76 bpm Height: 6'2" Temperature: 37.0 (C) / 98.6 (F) Weight: 231 lbs 01/19/2013 Blood Pressure 1: 150/78 Code : 8480-6 BMI: 30.2 Code : 03717-9 Heart Rate 1 : 84 bpm Height: 6'2" Weight: 235 lbs 12/26/2012 Blood Pressure 1: 142/78 Code : 8480-6 BMI: 29.9 Code : 52039-0 Heart Rate 1 : 84 bpm Height: 6'2" Weight: 233 lbs 12/21/2012 Blood Pressure 1: 142/80 Code : 8480-6 BMI: 29.5 Code : 89291-7 Heart Rate 1 : 80 bpm Height: 6'2" Weight: 230 lbs 11/30/2012 Blood Pressure 1: 146/78 Code : 8480-6 BMI: 29.4 Code : 46608-8 Heart Rate 1 : 80 bpm Height: 6'2" Weight: 229 lbs 05/30/2012 Blood Pressure 1: 150/74 Code : 8480-6 BMI: 29.4 Code : 38162-4 Heart Rate 1 : 76 bpm Height: 6'2" Respiratory Rate: 16 bpm Weight: 229 lbs 04/26/2012 Blood Pressure 1: 124/64 Code : 8480-6 Heart Rate 1: 90 bpm SpO2: 98% Temperature: 36.7 (C) / 98.1 (F) Weight: 04/14/2012 Blood Pressure 1: 150/88 Code : 8480-6 Blood Pressure 2: 150/90 Code: 8480-6 BMI: 29.4 Code: 13242-6 Heart Rate 1: 72 bpm Height: 6'2" [...] Code : 8480-6 BMI: 28.9 Code : 89719-0 Heart Rate 1 : 64 bpm Height: 6'2" Weight: 225 lbs 08/05/2011 Blood Pressure 1: 142/72 Code : 8480-6 BMI: 29.3 Code : 90159-4 Heart Rate 1 : 80 bpm Height: 6'2" Weight: 228 lbs 07/01/2011 Blood Pressure 1: 136/70 Code : 8480-6 BMI: 29.2 Code : 84415-1 Heart Rate 1 : 68 bpm Height: [...] doing physical therapy for parkinson's disease at [facility] diabetes mellitus Alleviating Factors insulin 01/19/2013 [...] data Encounters Encounter Performer Location Codes Date ([id number]) 17774 EST. 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 PATIENT, LEVEL IV Diagnosis: Atrophy of thyroid (acquired)[ICD10: E03.4] Diagnosis: Type 2 diabetes mellitus with hyperglycemia[ICD10: E11.65] Diagnosis: Essential (primary) hypertension[ICD10: I10] Diagnosis: Parkinson's disease[ICD10: G20] Yoli Medley MD, [facility] CPT- 4: 77078 09/16/2017 ([id number]) 48609 EST. PATIENT, LEVEL IV Diagnosis: Essential (primary) hypertension[ICD10: I10] Diagnosis: Type 2 diabetes mellitus with hyperglycemia[ICD10: E11.65] Diagnosis: Atrophy of thyroid (acquired)[ICD10: E03.4] Yoli Medley MD, [facility] CPT-4: 31042 07/13/2017 ([id number]) 97712 EST. PATIENT, LEVEL IV Diagnosis: Essential (primary) hypertension[ICD10: I10] Diagnosis: Localized edema[ICD10: R60.0] Diagnosis: Atrophy of thyroid (acquired)[ICD10: E03.4] Diagnosis: Type 2 diabetes mellitus without complications[ICD10: E11.9] Yoli Medley MD, [facility] CPT-4: 69629 05/13/2017 75514 EST. PATIENT, LEVEL III Diagnosis: Rash and other nonspecific skin eruption[ICD10: R21] Bonita Medley MD, [facility] CPT-4: 04326 04/28/2017 44844 EST. PATIENT, LEVEL IV Diagnosis: Essential (primary) hypertension[ICD10: I10] Diagnosis: Atrophy of thyroid (acquired)[ICD10: E03.4] Diagnosis: Type 2 diabetes mellitus without complications[ICD10: E11.9] Bonita Medley MD , [facility] CPT-4: 67239 04/15/2017 ([id number]) 17435 EST. PATIENT, LEVEL IV Diagnosis: Type 2 diabetes mellitus with hyperglycemia[ICD10: E11.65] Diagnosis: Essential (primary) hypertension[ICD10: I10] Diagnosis: Hypothyroidism, unspecified[ICD10: E03.9] Ginny Medley MD, [facility] CPT-4: 10473 02/04/2017 ([id number]) 32444 EST. PATIENT, LEVEL III Diagnosis: Essential (primary) hypertension[ICD10: I10] Diagnosis: Hypothyroidism, unspecified[ICD10: E03.9] Ginny Medley MD, [facility] CPT-4: 51064 10/08/2016 ([id number]) 35122 EST. PATIENT, LEVEL III Diagnosis: Allergic rhinitis due to pollen[ICD10: J30.1] Diagnosis: Hypothyroidism, unspecified[ICD10: E03.9] Ginny Medley MD, [facility] CPT-4: 22089 09/10/2016 ([id number]) 09774 EST. 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 PATIENT, LEVEL IV Diagnosis: Abdominal distension (gaseous)[ICD10: R14.0] Diagnosis: Cough[ICD10: R05] Diagnosis: Acute bronchitis, unspecified[ICD10: J20.9] Diagnosis: Essential (primary) hypertension[ICD10: I10] Ginny Medley MD, [facility] CPT-4: 48765 08/06/2016 ([id number]) 48053 EST. PATIENT, LEVEL III Diagnosis: Cough[ICD10: R05] Diagnosis: Acute upper respiratory infection, unspecified[ICD10: J06.9] Ginny Medley MD, [facility] CPT-4: 10531 07/30/2016 ([id number]) 64857 EST. PATIENT, LEVEL IV Diagnosis: Type 2 diabetes mellitus with hyperglycemia[ICD10: E11.65] Diagnosis: Essential (primary) hypertension[ICD10: I10] Diagnosis: Parkinson's disease[ICD10: G20] Diagnosis: Localized edema[ICD10: R60.0] Ginny Medley MD, [facility] CPT-4: 92966 06/22/2016 ([id number]) 34766 EST. PATIENT, LEVEL IV Diagnosis: Essential (primary) hypertension[ICD10: I10] Diagnosis: Type 2 diabetes mellitus with hyperglycemia[ICD10: E11.65] Diagnosis: Hypo-osmolality and hyponatremia[ICD10: E87.1] Diagnosis: Hesitancy of micturition[ICD10: R39.11] Ginny Medley MD, [facility] CPT-4: 89610 04/27/2016 ([id number]) 52487 EST. PATIENT, LEVEL III Diagnosis: Essential (primary) hypertension[ICD10: I10] Diagnosis: Localized edema[ICD10: R60.0] Ginny Medley MD, [facility] CPT-4: 59738 03/23/2016 ([id number]) 47000 EST. PATIENT, LEVEL IV Diagnosis: Low back pain[ICD10: M54.5] Diagnosis: Hypo-osmolality and hyponatremia[ICD10: E87.1] Diagnosis: Essential (primary) hypertension[ICD10: I10] Diagnosis: Localized edema[ICD10: R60.0] Diagnosis: Type 2 diabetes mellitus with hyperglycemia[ICD10: E11.65] Ginny Medley MD, [facility] CPT-4: 58716 01/20/2016 ([id number]) 60859 EST. PATIENT, LEVEL III Diagnosis: Type 2 diabetes mellitus with hyperglycemia[ICD10: E11.65] Diagnosis: Essential (primary) hypertension[ICD10: I10] Diagnosis: Hypo-osmolality and hyponatremia[ICD10: E87.1] Ginny Medley MD, [facility] CPT-4: 96773 12/16/2015 ([id number]) 61353 EST. PATIENT, LEVEL III Diagnosis: Essential (primary) hypertension[ICD10: I10] Diagnosis: Hypo-osmolality and hyponatremia[ICD10: E87.1] Ginny Medley MD, [facility] CPT-4: 23889 12/09/2015 ([id number]) 12389 EST. PATIENT, LEVEL IV Diagnosis: Essential (primary) hypertension[ICD10: I10] Diagnosis: Type 2 diabetes mellitus with hyperglycemia[ICD10: E11.65] Diagnosis: Parkinson's disease[ICD10: G20] Ginny Medley MD, [facility] CPT-4: 20569 11/25/2015 86802 EST. PATIENT, LEVEL III Diagnosis: Localized edema[ICD10: R60.0] Diagnosis: Essential (primary) hypertension[ICD10: I10] Bonita Medley MD, [facility] CPT-4: 34088 09/02/2015 ([id number]) 75868 EST. PATIENT, LEVEL III Diagnosis: Localized edema[ICD10: R60.0] Ginny Medley MD, [facility] CPT-4: 24518 08/05/2015 ([id number]) 66128 EST. PATIENT, LEVEL III Diagnosis: Localized edema[ICD10: R60.0] Diagnosis: Unspecified open wound, right ankle, initial encounter[ICD10: S91.001A] Ginny Medley MD, [facility] CPT-4: 37530 ([id number]) 61500 EST. PATIENT, LEVEL IV Diagnosis: Essential (primary) hypertension[ICD10: I10] Diagnosis: Localized edema[ICD10: R60.0] Diagnosis: Low back pain[ICD10: M54.5] Diagnosis: Type 2 diabetes mellitus with hyperglycemia[ICD10: E11.65] Ginny Medley MD, [facility] CPT-4: 64889 06/03/2015 ([id number]) Miscellaneous no charge Diagnosis: Encounter for other specified aftercare[ICD10: Z51.89] Yoli Medley MD, [facility] CPT-4: 34709 03/20/2015 30991 EST. PATIENT, LEVEL IV Diagnosis: Cutaneous abscess of chest wall[ICD10: L02.213] Yoli Medley MD, [facility] CPT-4: 04156 03/19/2015 ([id number]) 14262 EST. PATIENT, LEVEL III Diagnosis: Edema, unspecified[ICD10: R60.9] Yoli Medley MD, [facility] CPT-4: 98535 03/04/2015 69745 EST. PATIENT, LEVEL III Diagnosis: Edema, unspecified[ICD10: R60.9] Diagnosis: Unspecified open wound, right ankle, initial encounter[ICD10: S91.001A] Yoli Medley MD, [facility] CPT-4: 96346 07/2014 ([id number]) 77168 EST. PATIENT, LEVEL III Diagnosis: Edema, unspecified[ICD10: R60.9] Yoli Medley MD [facility] CPT-4: 91816 02/11/2015 ([id number]) 00742 EST. PATIENT, LEVEL IV Diagnosis: Type 2 diabetes mellitus with hyperglycemia[ICD10: E11.65] Diagnosis: Essential (primary) hypertension[ICD10: I10] Diagnosis: Edema, unspecified[ICD10: R60.9] Yoli Medley MD, [facility] CPT-4: 54502 01/28/2015 ([id number]) 98773 EST. PATIENT, LEVEL IV Diagnosis: DIABETES TYPE II[ICD9: 250.00] Diagnosis: ESSENTIAL HYPERTENSION[ICD9: 401.9] Diagnosis: Parkinsons disease[ICD9: 332.0] Yoli Medley MD [facility] CPT- 4: 58976 10/01/2014 ([id number]) 35276 EST. PATIENT, LEVEL IV Diagnosis: ESSENTIAL HYPERTENSION[ICD9: 401.9] Diagnosis: DIABETES TYPE II[ICD9: 250.00] Diagnosis: Parkinsons disease[ICD9: 332.0] Yoli Medley MD [facility] CPT- 4: 28914 05/30/2014 ([id number]) 29750 EST. PATIENT, LEVEL IV Diagnosis: DIABETES TYPE II[ICD9: 250.00] Diagnosis: ESSENTIAL HYPERTENSION[ICD9: 401.9] Diagnosis: Back pain[ICD9: 724.5] Yoli Medley MD [facility] CPT-4: 70876 02/28/2014 ([id number]) 29740 EST. PATIENT, LEVEL III Diagnosis: ESOPHAGEAL REFLUX[ICD9: 530.81] Diagnosis: Esophageal ulcer[ICD9: 530.20] Yoli Medley MD [facility] CPT- 4: 29681 01/23/2014 ([id number]) 17892 EST. PATIENT, LEVEL IV Diagnosis: ESOPHAGEAL REFLUX[ICD9: 530.81] Diagnosis: ESSENTIAL HYPERTENSION[ICD9: 401.9] Yoli Medley MD [facility] CPT-4: 66822 12/26/2013 ([id number]) 98178 EST. PATIENT, LEVEL IV Diagnosis: Diabetes type 2, uncontrolled[ICD9: 250.02] Diagnosis: ESSENTIAL HYPERTENSION[ICD9: 401.9] Diagnosis: Back pain[ICD9: 724.5] Diagnosis: ELEVATED PSA[ICD9: 790.93] Yoli Medley MD [facility] CPT- 4: 80538 10/17/2013 ([id number]) 93906 EST. PATIENT, LEVEL IV Diagnosis: DIABETES TYPE II[SNOMED: 427426013] Diagnosis: ESSENTIAL HYPERTENSION[SNOMED: 56845470] Diagnosis: Sleep apnea[ICD9: 780.57] Yoli Medley MD, [facility] CPT-4: 79455 07/24/2013 ([id number]) 19706 EST. PATIENT, LEVEL IV Diagnosis: DIABETES TYPE II[SNOMED: 903746252] Diagnosis: ESSENTIAL HYPERTENSION[SNOMED: 33914076] Diagnosis: HYPERLIPIDEMIA[ICD9: 272.4] Yoli Medley MD [facility] CPT- 4: 72197 04/24/2013 ([id number]) 63761 EST. PATIENT, LEVEL III Diagnosis: DIABETES TYPE II[SNOMED: 265127953] Yoli Medley MD [facility] CPT-4: 12162 03/20/2013 ([id number]) 76448 EST. PATIENT, LEVEL III Diagnosis: DM W/O COMPLICATION TYPE II, UNCONTROLLED[SNOMED: 93353193] Yoli Medley MD [facility] CPT-4: 11872 01/19/2013 ([id number]) 02436 EST. PATIENT, LEVEL III Diagnosis: DM W/O COMPLICATION TYPE II, UNCONTROLLED[SNOMED: 94896198] Yoli Medley MD , [facility] CPT-4: 97339 12/21/2012 ([id number]) 85649 EST. PATIENT, LEVEL IV Diagnosis: DM W/O COMPLICATION TYPE II, UNCONTROLLED[SNOMED: 95591728] Diagnosis: Parkinsons disease[ICD9: 332.0] Diagnosis: Back pain[ICD9: 724.5] Diagnosis: Gait instability[ICD9: 781.2] Yoli Medley MD [facility] CPT- 4: 73345 11/30/2012 ([id number]) 22293 EST. PATIENT, LEVEL IV Diagnosis: ESSENTIAL HYPERTENSION[SNOMED: 23029189] Diagnosis: Abdominal pain[ICD9: 789.00] Diagnosis: DIABETES TYPE II[SNOMED: 172936808] Yoli Medley MD, [facility] CPT-4: 88939 05/30/2012 ([id number]) 61274 EST. PATIENT, LEVEL III Diagnosis: Gastroenteritis[ICD9: 558.9] Ginny Medley MD, [facility] CPT-4: 27435 04/26/2012 ([id number]) 03829 EST. PATIENT, LEVEL IV Diagnosis: ESSENTIAL HYPERTENSION[SNOMED: 12562754] Diagnosis: DIABETES TYPE II[SNOMED: 716640934] Diagnosis: Claw toe[ICD9: 735.5] Yoli Medley MD, [facility] CPT-4: 42597 04/14/2012 ([id number]) 83452 EST. PATIENT, LEVEL III Diagnosis: Rash[ICD9: 782.1] Diagnosis: DERMATOPHYTOSIS OF FOOT[ICD9: 110.4] Ginny Medley MD, [facility] CPT-4: 58353 02/22/2012 30493) 33382 EST. PATIENT, LEVEL IV Diagnosis: DM W/O COMPLICATION TYPE II, UNCONTROLLED[SNOMED: 17697235] Diagnosis: ESSENTIAL HYPERTENSION[SNOMED: 08963448] Diagnosis: Constipation - functional[ICD9: 564.09] Diagnosis: Encounter for long-term (current) use of other high-risk medications[ ICD9: V58.69] Yoil Medley MD, [facility] CPT-4: 21254 01/13/2012 [id number]) 19499 EST. PATIENT, LEVEL IV Diagnosis: ESSENTIAL HYPERTENSION[SNOMED: 21928796] Diagnosis: DIABETES TYPE II[SNOMED: 418427951] Yoli Medley MD, [facility] CPT-4: 35390 09/02/2011 54285 EST. PATIENT, LEVEL IV Diagnosis: LUMBAGO[ICD9: 724.2] Diagnosis: Sacroiliitis[ICD9: 720.2] Yoli Medley MD, [facility] CPT-4: 78779 08/05/2011 [id number]) 42669 EST. PATIENT, LEVEL IV Diagnosis: ESSENTIAL HYPERTENSION[SNOMED: 01627999] Diagnosis: DIABETES TYPE II[SNOMED: 286393540] Diagnosis: Breast mass in male[ICD9: 611.72] Diagnosis: Chronic hyponatremia[ICD9: 276.1] Yoli Medley MD, [facility] CPT-4: 45155 07/01/2011 Plan of Care Planned Activity Notes Codes Status Date Patient Education: Patient Medication Summary Completed 02/17/2018 Care Plan: Tsh Pending 02/17/2018 Care Plan: Free T4 Pending 02/17/2018 Care Plan: %Hba1C LOINC : 87058-8 Pending 02/17/2018 Care Plan: Comp Metabolic Pending 02/17/2018 Visit Plan: Diabetes Mellitus - controlled [...] today 01/11/2018 Appointment[phone] (15 min) Moderate 01/11/2018 Patient Education: Patient Medication Summary Completed 01/11/2018 Appointment: [phone] [facility] - Annual Wellness Visit 10/18/2017 [...] treatment. 09/16/2017 Appointment: [facility] Med[phone] [facility] (15 min) Moderate 09/16/2017 Patient Education: Patient [...] control. 07/13/2017 Appointment: [facility] Med[phone] [facility] (15 min) Moderate 07/13/2017 Patient Education: Patient [...] controlled. 05/13/2017 Appointment: [facility] Medley [phone] [facility] (15 min) Moderate 05/13/2017 Patient Education: Patient Medication Summary Completed 05/13/2017 Visit Plan: Rash - The patient was instructed to use the ointment as per RX. The patient is to call for any change in symptoms, increase in size of the lesion, increase in pain, worsening redness, warmth, discharge. 04/28/2017 Appointment: Bonita Villa WPtel: [phone] [id number] (15 min) Moderate 04/28/2017 Patient Education: Patient Medication Summary Completed 04/28/2017 Appointment: Bonita Villa WPtel: [phone] [id number] (30 min) Complex 04/16/2017 Visit Plan: Hypertension [...] of control. 04/15/2017 Appointment: Bonita Villa WPtel: [id number] (30 min) Complex 04/15/2017 Patient Education: Patient [...] of control. 02/04/2017 Appointment: Ginny Pearl WPtel: [facility] [place] [address] (30 min) Complex 02/04/2017 Patient Education: Patient Medication Summary Completed 02/04/2017 Patient Education: Obesity Completed 02/04/2017 Patient Education: Patient Medication Summary Completed 02/01/2017 Appointment: Ginny Pearl WPtel: [address] [place] [address] (30 min) Complex 01/12/2017 Appointment: Ginny Pearl WPtel: [facility] [place] [address] (30 min) Complex 01/07/2017 Visit Plan: Medicare [...] care surrogate. 10/12/2016 Appointment: Bonita Villa WPtel: [facility] - Annual Wellness Visit 10/12/2016 Patient [...] repeat in 3 months. 10/08/2016 Appointment: Ginny Pealr WPtel: [id number] (30 min) Complex 10/08/2016 Patient Education: Patient Medication Summary Completed 10/08/2016 Patient Education: Hypertension Completed 10/08/2016 Visit Plan: Allergies-continue daily anti histamine-call if symptoms do not improve or if any worse S/P total thyroidectomy-now on levothyroxine-repeat labs in 1 month 09/10/2016 Appointment: Ginny Pearl WPtel: [phone] [id number] (30 min) Complex 09/10/2016 Patient Education: Patient [...] Ford to do total thyroidectomy on Wednesday Dnlwkdwmqf-fundd-vvcpzp-due to thyroid nodules-will monitor symptoms for now 08/24/2016 Visit Plan: Hypertension - continue with current medications, continue with no added salt diet. Pt has been encouraged to exercise daily. The pt has been advised to call the office if there are any acute concerns about change in blood pressure readings at home. Bilateral thyroid nodules-voice hoarseness-Dr Ford to do total thyroidectomy on Wednesday Gjzwahwlsa-goeqr-ijmaln-due to thyroid nodules-will monitor symptoms for now [...] and plan. 08/24/2016 Appointment: Ginny Pearl WPtel: [address] [place], [place] [id number] (30 min) Complex 08/24/2016 Patient Education: Patient Medication Summary Completed 08/24/2016 Visit Plan: Abdominal deffwbpw-pgbqzkoebgrc-NRS today Bronchitis - acute case of bronchitis [...] at home 08/06/2016 Appointment: Ginny Pearl WPtel: [id number] (10 min) Simple 08/06/2016 Patient Education: Patient Medication Summary Completed 08/06/2016 Visit Plan: URI - Pt advised to increase fluids, vitamin C. Discussed natural and expected course of this diagnosis and need to alert me if symptoms do not follow expected course, or if any worse. RX sent to patient' s pharmacy. 07/30/2016 Appointment: Ginny Pearl WPtel: [phone] [id number] [place] [address] (15 min) Moderate 07/30/2016 Patient Education: Patient [...] symptoms worsen. 06/22/2016 Appointment: Ginny Pearl WPtel: [id number] (30 min) Complex 06/22/2016 Patient Education: Patient [...] negative 04/27/2016 Appointment: Ginny Pearl WPtel: [phone] [id number] [place] [address] (30 min) Complex 04/27/2016 Patient Education: Patient [...] peripheral edema. 03/23/2016 Appointment: Ginny Pearl WPtel: [id number] (30 min) Complex 03/23/2016 Patient Education: Patient [...] in the office. Refer for PT at [facility] Low back pain, generalized weakness, Parkinsons Low vztqxf-vxkoljt-st need for increase sodium intake Hypertension - [...] Hgb A1C 01/20/2016 Appointment: Ginny Pearl WPtel: [id number] (30 min) Complex 01/20/2016 Patient Education: Patient Medication Summary Completed 01/20/2016 Patient Education: Obesity Completed 01/20/2016 Care Plan: Comp Metabolic Pending 01/20/2016 Care Plan: Cbc With Differential Pending 01/20/2016 Care Plan: %Hba1C LOINC : 33028-7 Pending 01/20/2016 Visit Plan: Diabetes Mellitus - [...] today 12/09/2015 Appointment: [phone] (30 min) Complex 12/09/2015 Patient Education: Patient [...] symptoms worsen. 11/25/2015 Appointment: Ginny Pearl WPtel: [address] [place] [phone] (30 min) Complex 11/25/2015 Patient Education: Patient [...] 03/26/2015 Care Plan: Referral Order SNOMED-CT : [id number] Ordered 03/26/2015 Patient Education: Patient Medication Summary [...] Medication Summary Completed 03/19/2015 Care Plan: Wicho RIVERA Pending 03/19/2015 Appointment: Injection 03/08/2015 Patient Education: [...] 02/20/2015 Care Plan: Referral Order SNOMED-CT : [id number] Ordered 02/20/2015 Visit Plan: Hypertension - uncontrolled [...] SPIRONOLACTONE 02/11/2015 Appointment: Yoli Medley [facility]Ptel[phone] [facility] (15 min) Moderate 02/11/2015 Patient Education: Patient [...] pressure. 01/28/2015 Appointment: Yoli Medley WPtel: [phone] [facility] (15 min) Moderate 01/28/2015 Patient Education: Patient [...] worsen. 10/01/2014 Appointment: Yoli Medley WPtel: [phone] [facility] Follow up 10/01/2014 Patient Education: Patient Medication [...] symptoms worsen. 05/30/2014 Appointment: Yoli Medley WPtel: [phone] [facility] Follow up 05/30/2014 Patient Education: Patient Medication [...] January 29. 01/23/2014 Appointment: Yoli Medley WPtel: [facility] Follow up 01/23/2014 Patient Education: Patient Medication [...] at home. 12/26/2013 Appointment: Yoli Medley WPtel: [address] [place] [address] Follow up 12/26/2013 Patient Education: Patient Medication Summary Completed 12/26/2013 Patient Education: Hypertension Completed 12/26/2013 Visit Plan: Wound Instructions - Pt was instruced to keep the wound clean, wash with antibacterial soap, use triple antibiotic ointment, call if redness, pustular drainage, or any other acute conerns. 10/24/2013 Appointment: [phone] [phone] [facility] Procedure 10/24/2013 Patient Education: Patient Medication [...] lesions. 10/17/2013 Appointment: [facility] Medley [facility]Ptel[phone] [facility] Follow up 10/17/2013 Patient Education: Patient Medication [...] like to have his Oxygen company - [employer] - help with arranging oxygen when he is in [facility]. 07/24/2013 Appointment: Yoli Medley WPtel: [phone] [facility] [place] Follow up 07/24/2013 Patient Education: Patient Medication Summary Completed 07/24/2013 Patient Education: Hypertension Completed 07/24/2013 Appointment: [phone] [phone] [place] Lab Draw 05/05/2013 Patient Education: Patient Medication Summary Completed 05/05/2013 Patient Education: Hypertension Completed 05/05/2013 Appointment: Yoli Medley WPtel: [phone] [facility] [place] Follow up 05/01/2013 Visit Plan: Diabetes [...] DAILY. 01/19/2013 Appointment: Yoli Medley WPtel: [phone] [facility] Follow up 01/19/2013 Patient Education: Patient Medication Summary Completed 01/19/2013 Visit Plan: IP-thvnksky-piqvabzspyv today in the office- wound Instructions - Pt was instruced to keep the wound clean, wash with antibacterial soap, use triple antibiotic ointment, call if redness, pustular drainage, or any other acute conerns. 12/26/2012 Appointment: [facility] Pearl [facility]Ptel[phone] [phone] Other 12/26/2012 Patient Education: Patient Medication Summary [...] glucose. 12/21/2012 Appointment: Yoli Medley [facility]Ptel: [phone] [facility] Follow up 12/21/2012 Patient Education: Patient Medication Summary Completed 12/21/2012 Visit Plan: Parkinsons disease - rx for sinemet 25/100mg 1/ 2 pill in morning and 1/2 pill in evening, pt to let us know if the symptoms improve. Referral to Miguel at [facility] for gait instability. Diabetes Mellitus - [...] and gait instability - recommended christina at [facility] - continue with back brace as it offers support for the patient. 11/30/2012 Appointment: Yoli Medley WPtel: [phone] [facility] [place] Follow up 11/30/2012 Patient Education: Patient [...] previously. 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 04/14/2012 Appointment: Yoli Medley WPtel: [phone] [facility] Follow up 04/14/2012 Patient Education: Patient Medication Summary Completed 04/14/2012 Patient Education: Hypertension Completed 04/14/2012 Visit Plan: Rash- Discussed natural and expected course of this diagnosis and need to alert me if symtpoms do not follow expected course, or if any worse. RX sent to patient's pharmacy. 02/22/2012 Appointment: Ginny Pearl WPtel: [phone] [id number] 02/22/2012 Patient Education: Patient Medication Summary [...] regimen. 01/13/2012 Appointment: Yoli Medley WPtel: [phone] [facility] [facility] Patient Preventative visit 01/13/2012 Patient Education: [...] less controlled. 09/02/2011 Appointment: Yoli Medley WPtel: [facility] Other 09/02/2011 Patient Education: Patient Medication Summary Completed 09/02/2011 Patient Education: High Blood Pressure: Essential Hypertension Completed 2011 Appointment: Ginny Pearl WPtel: [facility] Lab Draw 08/06/2011 Patient Education: Patient Medication [...] metformin bid. 08/05/2011 Appointment: Yoli Medley WPtel: [facility] Other 08/05/2011 Patient Education: Patient Medication Summary [...] home. 07/01/2011 Appointment: [facility] Medley [facility]Ptel[phone] [facility] Other 07/01/2011 Patient Education: Patient Medication Summary Completed 07/01/2011 Patient Education: High Blood Pressure: Essential Hypertension Completed 2011 Appointment: Y[facility] Med[facility] [id number] [id number] [facility] 06/25/2011 Patient Education: Patient Medication Summary Completed 06/25/2011 Patient Education: High Blood Pressure: Essential Hypertension Completed 2011 Referral: [id number] Ref[facility] Initiated Referral: Dangelo Ford Referral [...] CHECK LABS STOP EXTRA SODIUM REFER TO [facility] FOR PHYSICAL THERAPY DX [place], BACK PAIN, WEAKNESS . Low back pain- the patient was instructed in appropriate posture, need for weight loss to alleviate abdominal obesity that is worsening the patient's back pain. The patient is to call the office if the pain is worsening or does not improve. Kenalog injection today in the office. Refer for PT at [facility] Low back pain, generalized weakness, Parkinsons Low vlogdx-tyfydac-bb need for increase sodium intake Hypertension - [...] change in blood pressure readings at home. Yetaujwakdyqaw-vonrnyvv-mlwfmfr medication increased by Dr Ford and wants [...] Ford to do total thyroidectomy on Wednesday Bhsjaarvrp-qejga-wpzucf-due to thyroid nodules-will monitor symptoms for now . Hypertension - continue with current medications, continue with no added salt diet. Pt has been encouraged to exercise daily. The pt has been advised to call the office if there are any acute concerns about change in blood pressure readings at home. Bilateral thyroid nodules-voice hoarseness-Dr Ford to do total thyroidectomy on Wednesday Awunrxpfqu-mqmdk-lxiwhb-due to thyroid nodules-will monitor symptoms for now [...] Lab work- CBC, CMP, BNP . Abdominal pmtyzybq-nnlpfthjrtjm-ASY today Bronchitis - acute case of bronchitis [...] wraps to lower legs Appointment with [facility]- July 29 at 1pm. . [...] like to have his Oxygen company - [employer] patient - help with arranging oxygen when he is in [facility]. . Parkinsons disease - rx for sinemet 25/100mg 1/2 pill in morning and 1/2 pill in evening, pt to let us know if the symptoms improve. Referral to Miguel at [facility] for gait instability. Diabetes Mellitus - [...] and gait instability - recommended christina at [facility] - continue with back brace as [...] based on previous levels of control. . 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
--- OUTSIDE RECORDS SUMMARY | 2018-07-25 08:49 | XMS REPORT | CCD ---
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 Name Role Phone PP Unavailable CCM Unavailable Summary Purpose Interface Exchange Insurance Providers Payer name Policy type / Coverage type Covered republican ID Effective Begin Date Effective End Date WPS Medicare Part B Medicare Part B [id number] Unknown [facility] LIFE INSUR Medicare Part B [id number] Unknown Family history Runs in the family Diagnosis Age At Onset Diabetes Unknown Mother Diagnosis Age At Onset Diabetes Unknown Hypertension Unknown Alzheimer's Disease Unknown Stroke Unknown Father Diagnosis Age At Onset No Family Disease Entered N/A Grandmother Diagnosis Age At Onset Alzheimer's Disease Unknown Social History Social History Element Codes Description Effective Dates Number of children Unknown 4 1 in [place], 1 in [place], 2 in [place] 2011 Employment Unknown 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 Unknown Has never used illegal drugs 07/02/2011 Marital status Unknown 07/01/2011 Living arrangements Unknown House 07/01/2011 Allergies, Adverse Reactions, Alerts Substance Reaction Codes Entered Date Inactivated Date Status feldene RxNorm: 8356 07/02/2011 No Inactive Date Active bactrim RxNorm: 802232 03/19/2015 No Inactive Date Active CEPHALOSPORINS Unknown 03/19/2015 No Inactive Date Active PENICILLINS Unknown 07/02/2011 No Inactive Date Active SULFA (SULFONAMIDE ANTIBIOTICS) Unknown 02/20/2015 No Inactive Date Active Past Medical History Illness Codes Condition Status Onset Date Resolved Date Atrophy of thyroid (acquired) ICD-9: 244.8 ICD-10: E03.4 Active 05/13/2017 Unknown Essential (primary) hypertension ICD-9: 401.1 ICD-10: I10 Active 05/13/2017 Unknown Parkinson's disease ICD-9: 332.0 ICD-10: G20 Active 11/24/2015 Unknown Type 2 diabetes mellitus with hyperglycemia ICD-9: 250.00 ICD-10: E11.65 Active 04/26/2016 Unknown Localized edema ICD-9 : 782.3 ICD-10: R60.0 Active 03/22/2016 Unknown Type 2 diabetes mellitus without complications ICD-9: 250.00 ICD-10: E11.9 Active 05/13/2017 Unknown Rash and other nonspecific skin eruption ICD-9: 782.1 ICD-10: R21 Active 04/28/2017 Unknown Essential (primary) hypertension ICD-9: 401.9 ICD-10: I10 Active 04/26/2016 Unknown Hypothyroidism, unspecified ICD-9: 244.9 ICD-10: E03.9 Active 07/10/2016 Unknown Encounter for general adult medical examination [...] hypertension ICD-9: 401.1 ICD-10: I10 05/13/2017 Active Parkinson's disease ICD-9: 332.0 ICD-10: G20 11/24/2015 Active Type 2 diabetes mellitus with hyperglycemia ICD-9: 250.00 ICD-10: E11.65 04/26/2016 Active Localized edema ICD-9 : 782.3 ICD-10: R60.0 03/22/2016 Active Type 2 diabetes mellitus without complications ICD-9: 250.00 ICD-10: E11.9 05/13/2017 Active Rash and other nonspecific skin eruption ICD-9: 782.1 ICD-10: R21 04/28/2017 Active Essential (primary) hypertension ICD-9: 401.9 ICD-10: I10 04/26/2016 Active Hypothyroidism, unspecified ICD-9: 244.9 ICD-10: E03.9 07/10/2016 Active Encounter for general adult medical examination [...] Start Date Stop Date Status Fill Instructions Lasix 20 mg tablet RxNorm: 303357 TAKE 1 TABLET ONCE DAILY FOR 1 WEEK AND THEN 1 TABLET EVERY 3 DAYS THEREAFTER 12/06/2017 09/01/2018 Active clotrimazole 1 % topical cream RxNorm: 657508 1 Application TOP BID to feet 09/16/2017 No Stop Date Active levothyroxine 175 mcg tablet RxNorm: 556534 TAKE ONE TABLET BY MOUTH ONCE DAILY 08/03/2017 No Stop Date Active glipizide 10 mg tablet RxNorm: 688994 1 Tablet(s) PO BID 201711/03/2018 Active metformin ER 500 mg tablet,extended release 24 hr RxNorm: 994917 Tablet(s) TAKE ONE TABLET BY MOUTH TWICE DAILY 05/13/2017 05/07/2018 Active Basaglar KwikPen 100 unit/mL (3 mL) subcutaneous RxNorm: 3424307 24 Unit(s) SQ daily 05/13/2017 05/07/2018 Active lisinopril 20 mg tablet RxNorm: 979030 Tablet(s) TAKE 1 TABLET BY MOUTH TWICE DAILY 05/13/2017 05/07/2018 Active finasteride 5 mg tablet RxNorm: 191317 1 Tablet(s) PO daily 11/08/2017 Inactive [SAVINGS FOR UNINSURED PATIENTS -- BIN:020697, PCN: ASPROD1, Group: [facility] , ID# [id number], Process claim through SmartCup, for questions: . THIS IS NOT INSURANCE.] levothyroxine 175 mcg tablet RxNorm: 191301 1 Tablet(s) PO daily 05/13/2017 11/08/2017 Inactive Sinemet 25 mg-100 mg tablet RxNorm: 170599 Tablet(s) TAKE ONE TABLET BY MOUTH TWICE DAILY IN THE MORNING AND AT SUPPER 05/13/2017 05/07/2018 Active Lasix 20 mg tablet RxNorm: 278593 Tablet(s) TAKE 1 TABLET BY MOUTH ONCE DAILY FOR 1 WEEK AND THEN TAKE 1 TABLET BY MOUTH EVERY 3 DAYS THEREAFTER 05/13/2017 07/27/2017 Inactive Basaglar KwikPen 100 unit/mL (3 mL) subcutaneous RxNorm: 0941804 24 Unit(s) SQ daily 05/07/2017 05/12/2017 Inactive Lasix 20 mg tablet RxNorm: 392955 2 Tablet(s) PO daily x 3 days, then 1 pill three times a week thereafter 04/28/2017 No Stop Date Active triamcinolone acetonide 0.025 % topical cream RxNorm: 7704214 1 Application TOP BID 04/28/2017 No Stop Date Active potassium chloride ER 10 mEq tablet,extended release(part/ cryst) RxNorm: 3264712 2 Tablet(s) PO daily x 3 days, then 1 pill three times a week when taking the lasix 04/28/2017 08/25/2017 Inactive clotrimazole 1 % topical cream RxNorm: 260608 1 Application TOP BID 04/28/2017 09/15/2017 Inactive Lasix 20 mg tablet RxNorm: 650222 Tablet(s) TAKE 1 TABLET BY MOUTH ONCE DAILY FOR 1 WEEK AND THEN TAKE 1 TABLET BY MOUTH EVERY 3 DAYS THEREAFTER 04/22/2017 05/12/2017 Inactive Lantus Solostar 100 unit/mL (3 mL) subcutaneous insulin pen RxNorm: 990360 24 Unit(s) SQ daily INJECT 24 UNITS DAILY OR DIRECTED 201605/06/2017 Inactive 1 box of 5 pens Basaglar KwikPen 100 unit/mL (3 mL) subcutaneous RxNorm: 0874682 24 Unit(s) SQ daily 03/02/2017 05/06/2017 Inactive Basaglar KwikPen 100 unit/mL (3 mL) subcutaneous RxNorm: 8515880 24 Unit(s) SQ daily 03/02/2017 03/01/2017 Inactive levothyroxine 175 mcg tablet RxNorm: 956775 1 Tablet(s) PO daily 02/02/2017 05/12/2017 Inactive Sinemet 25 mg-100 mg tablet RxNorm: 036172 TAKE ONE TABLET BY MOUTH TWICE DAILY IN THE MORNING AND AT SUPPER 12/30/2016 Inactive metformin ER 500 mg tablet,extended release 24 hr RxNorm: 719345 Tablet(s) TAKE ONE TABLET BY MOUTH TWICE DAILY 11/10/2016 05/12/2017 Inactive lisinopril 20 mg tablet RxNorm: 126115 Tablet(s) TAKE 1 TABLET BY MOUTH TWICE DAILY 11/10/2016 05/12/2017 Inactive levothyroxine 150 mcg tablet RxNorm: 443217 1 Tablet(s) PO daily 11/05/2016 02/01/2017 Inactive PLEASE LET PATIENT KNOW WE ARE GIVING HIM 150MCG INSTEAD OF 100MCG SO HE JUST TAKES 1 TAB DAILY. THANKS! Lantus Solostar 100 unit/mL (3 mL) subcutaneous insulin pen RxNorm: 788030 24 Unit(s) SQ daily INJECT 24 UNITS DAILY OR DIRECTED 201603/01/2017 Inactive 1 box of 5 pens Lantus Solostar 100 unit/mL (3 mL) subcutaneous insulin pen RxNorm: 679774 24 Unit(s) SQ daily INJECT 24 UNITS DAILY OR DIRECTED 201610/06/2016 Inactive please call patient with the [facility]bert levothyroxine 100 mcg tablet RxNorm: 537122 1.5 Tablet(s) PO daily 10/05/2016 11/04/2016 Inactive metformin ER 500 mg tablet,extended release 24 hr RxNorm: 489516 Tablet(s) TAKE ONE TABLET BY MOUTH TWICE DAILY 09/29/2016 11/09/2016 Inactive prednisone 20 mg tablet RxNorm: 522703 1 Tablet(s) PO BID 08/0608/10/2016 Inactive Kenalog 40 mg/mL suspension for injection RxNorm: 1816452 1 Milliliter(s) Inj 07/30/2016 07/30/2016 Inactive doxycycline hyclate 100 mg tablet RxNorm: 933668 1 Tablet(s) PO BID 07/30/2016 08/05/2016 Inactive glipizide 10 mg tablet RxNorm: 889682 1 Tablet(s) PO BID 201605/12/2017 Inactive Sinemet 25 mg-100 mg tablet RxNorm: 465417 TABLET(S) TAKE 1 TABLET BY MOUTH TWICE A DAY IN THE MORNING AND AT SUPPER 05/11/2016 11/06/2016 Inactive Patient requests 90 days supply metformin ER 500 mg tablet,extended release 24 hr RxNorm: 699993 TAKE ONE TABLET BY MOUTH TWICE DAILY 05/04/20162016 Inactive lisinopril 20 mg tablet RxNorm: 554489 TAKE 1 TABLET BY MOUTH TWICE DAILY 04/14/2016 11/09/2016 Inactive Sinemet 25 mg-100 mg tablet RxNorm: 528470 1 Tablet(s) PO BID TAKE 1 TABLET BY MOUTH TWICE A DAY IN THE MORNING AND AT SUPPER 03/23/2016 09/18/2016 Inactive Lasix 20 mg tablet RxNorm: 986123 Tablet(s) TAKE 1 TABLET BY MOUTH ONCE DAILY FOR 1 WEEK AND THEN TAKE 1 TABLET BY MOUTH EVERY 3 DAYS THEREAFTER 03/23/2016 06/06/2016 Inactive hydrocodone 5 mg-acetaminophen 325 mg tablet RxNorm: 159974 1-2 Tablet(s) PO Q6- 8H 01/21/2016 No Stop Date Active Lantus Solostar 100 unit/mL (3 mL) subcutaneous insulin pen RxNorm: 233941 24 Unit(s) SQ daily INJECT 24 UNITS DAILY OR DIRECTED 201510/05/2016 Inactive please call patient with the [facility] Kenalog 40 mg/mL suspension for injection RxNorm: 3798682 1 Milliliter(s) Inj 01/20/2016 01/20/2016 Inactive Sinemet 25 mg-100 mg tablet RxNorm: 684202 Tablet(s) TAKE 1 TABLET BY MOUTH TWICE A DAY IN THE MORNING AND AT SUPPER 11/29/2015 03/22/2016 Inactive Lantus Solostar 100 unit/mL (3 mL) subcutaneous insulin pen RxNorm: 161690 20 Unit(s) SQ daily INJECT 20 UNITS DAILY OR DIRECTED 201501/20/2016 Inactive please call patient with the [facility]bert Sinemet 25 mg-100 mg tablet RxNorm: 213920 Tablet(s) TAKE 1 TABLET BY MOUTH TWICE A DAY IN THE MORNING AND AT SUPPER 11/22/2015 11/28/2015 Inactive Lantus Solostar 100 unit/mL (3 mL) subcutaneous insulin pen RxNorm: 004635 Unit( s) INJECT 20 UNITS DAILY OR DIRECTED 11/22/2015 11/24/2015 Inactive Lantus Solostar 100 unit/mL (3 mL) subcutaneous insulin pen RxNorm: 609462 INJECT 20 UNITS DAILY OR DIRECTED 09/27/2015 11/21/2015 Inactive Lasix 20 mg tablet RxNorm: 156425 TAKE 1 TABLET BY MOUTH ONCE DAILY FOR 1 WEEK AND THEN TAKE 1 TABLET BY MOUTH EVERY 3 DAYS THEREAFTER 09/2512/10/2015 Inactive Lasix 20 mg tablet RxNorm: 846866 1 Tablet(s) PO daily 201509/25/2015 Inactive glipizide 10 mg tablet RxNorm: 751629 1 Tablet(s) BID TAKE 1 TABLET BY MOUTH DAILY. 06/25/2015 06/28/2016 Inactive metformin ER 500 mg tablet,extended release 24 hr RxNorm: 775455 1 Tablet(s) PO BID 04/01/2015 05/05/2016 Inactive lisinopril 20 mg tablet RxNorm: 959370 Tablet(s) TAKE 1 TABLET BY MOUTH TWICE DAILY. 03/25/2015 07/22/2015 Inactive metformin ER 500 mg tablet,extended release 24 hr RxNorm: 708446 1 Tablet(s) PO BID 03/25/2015 03/31/2015 Inactive doxycycline hyclate 100 mg capsule RxNorm: 5900191 1 Capsule(s) PO BID 03/19/2015 04/01/2015 Inactive Sinemet 25 mg-100 mg tablet RxNorm: 865231 TAKE 1 TABLET BY MOUTH TWICE A DAY IN THE MORNING AND AT SUPPER 03/05/201511/20 Inactive doxycycline hyclate 100 mg capsule RxNorm: 5551422 1 Capsule(s) PO BID 02/20/2015 02/26/2015 Inactive metolazone 5 mg tablet RxNorm: 183945 1 Tablet(s) PO daily 07/201403/21/2015 Inactive spironolactone 50 mg tablet RxNorm: 666451 1 Tablet(s) PO daily 02/11/2015 01/02/2016 Inactive Efudex 5 % topical cream RxNorm: 015919 1 TOP BID 01/28/2015 02/10/2015 Inactive potassium chloride ER 10 mEq tablet,extended release(part/ cryst) RxNorm: 1427177 1 Tablet(s) PO daily x 1week then three times weekly with the lasix. 01/28/2015 05/27/2015 Inactive Lasix 20 mg tablet RxNorm: 701902 1 Tablet(s) PO daily x 1 week, then every three days thereafter 01/28/20152015 Inactive lisinopril 20 mg tablet RxNorm: 493264 Tablet(s) TAKE 1 TABLET BY MOUTH TWICE DAILY. 11/23/2014 03/22/2015 Inactive lisinopril 20 mg tablet RxNorm: 366987 TAKE 1 TABLET BY MOUTH TWICE DAILY. 11/22/2014 11/22/2014 Inactive Sinemet 25 mg-100 mg tablet RxNorm: 740445 1 Tablet(s) PO BID TAKE 1 TABLET BY MOUTH TWICE A DAY IN THE MORNING AND AT SUPPER 10/01/2014 03/04/2015 Inactive [ SAVINGS FOR UNINSURED PATIENTS -- BIN:345644, PCN: ASPROD1, Group: [id number], ID# [id number], Process claim through SmartCup, for questions: . THIS IS NOT INSURANCE.] glipizide 10 mg tablet RxNorm: 434032 1 Tablet(s) BID TAKE 1 TABLET BY MOUTH DAILY. 10/01/2014 06/24/2015 Inactive glipizide 10 mg tablet RxNorm: 327576 Tablet(s) daily TAKE 1 TABLET BY MOUTH DAILY. 08/06/2014 09/30/2014 Inactive Lantus Solostar 100 unit/mL (3 mL) subcutaneous insulin pen RxNorm: 015104 20 Unit(s) SQ daily 07/11/2014 09/26/2015 Inactive [SAVINGS FOR UNINSURED PATIENTS -- BIN:424310, PCN: ASPROD1, Group: [id number], ID# [id number], Process claim through MedImpact, for questions: . THIS IS NOT INSURANCE.] metformin ER 500 mg tablet,extended release 24 hr RxNorm: 637212 1 Tablet(s) PO BID 07/10/2014 03/24/2015 Inactive lisinopril 20 mg tablet RxNorm: 698109 Tablet(s) TAKE 1 TABLET BY MOUTH TWICE DAILY. 07/10/2014 11/21/2014 Inactive Lantus Solostar 100 unit/mL (3 mL) subcutaneous insulin pen RxNorm: 834546 20 Unit(s) SQ daily 05/30/2014 07/10/2014 Inactive [SAVINGS FOR UNINSURED PATIENTS -- BIN:531894, PCN: ASPROD1, Group: [id number], ID# [id number], Process claim through MedImpact, for questions: . THIS IS NOT INSURANCE.] Sinemet 25 mg-100 mg tablet RxNorm: 014907 Tablet(s) TAKE 1 TABLET BY MOUTH TWICE A DAY IN THE MORNING AND AT SUPPER 05/30/2014 09/30/2014 Inactive [SAVINGS FOR UNINSURED PATIENTS -- BIN:562917, PCN: ASPROD1, Group: [id number], ID# [id number], Process claim through MedImpact, for questions: . THIS IS NOT INSURANCE.] lisinopril 20 mg tablet RxNorm: 313749 TAKE 1 TABLET BY MOUTH TWICE DAILY. 04/09/2014 04/08/2014 Inactive glipizide 10 mg tablet RxNorm: 598744 TAKE 1 TABLET BY MOUTH TWICE DAILY. 04/09/2014 08/05/2014 Inactive glipizide 10 mg tablet RxNorm: 345738 TAKE 1 TABLET BY MOUTH TWICE DAILY. 04/09/2014 04/08/2014 Inactive lisinopril 20 mg tablet RxNorm: 302173 TAKE 1 TABLET BY MOUTH TWICE DAILY. 04/09/2014 07/09/2014 Inactive lisinopril 20 mg tablet RxNorm: 052755 Tablet(s) TAKE ONE TABLET BY MOUTH TWICE DAILY 04/06/2014 04/08/2014 Inactive [SAVINGS FOR UNINSURED PATIENTS -- BIN:156116 , PCN: ASPROD1, Group: [id number], ID# [id number], Process claim through SmartCup, for questions: . THIS IS NOT INSURANCE.] glipizide 10 mg tablet RxNorm: 992618 1 Tablet(s) PO BID 201304/08/2014 Inactive [SAVINGS FOR UNINSURED PATIENTS -- BIN:049105, PCN: ASPROD1, Group: [id number], ID # [id number], Process claim through MedImpact, for questions: . THIS IS NOT INSURANCE.] pravastatin 10 mg tablet RxNorm: 325450 TAKE ONE TABLET BY MOUTH EVERY DAY 02/26/2014 05/26/2014 Inactive Sinemet 25 mg-100 mg tablet RxNorm: 239872 TAKE 1 TABLET BY MOUTH TWICE A DAY IN THE MORNING AND AT SUPPER 01/26/201401/25 Inactive Sinemet 25 mg-100 mg tablet RxNorm: 974139 Tablet(s) TAKE 1 TABLET BY MOUTH TWICE A DAY IN THE MORNING AND AT SUPPER 01/26/2014 05/29/2014 Inactive [SAVINGS FOR UNINSURED PATIENTS -- BIN:716570, PCN: ASPROD1, Group: [id number], ID# [id number], Process claim through MedIOutboxact, for questions: . THIS IS NOT INSURANCE.] Sinemet 25 mg-100 mg tablet RxNorm: 729042 TAKE 1 TABLET BY MOUTH TWICE A DAY IN THE MORNING AND AT SUPPER 01/26/201401/25 Inactive Sinemet 25 mg-100 mg tablet RxNorm: 238882 TAKE 1 TABLET BY MOUTH TWICE A DAY IN THE MORNING AND AT SUPPER 01/26/201401/25 Inactive pantoprazole 40 mg tablet,delayed release RxNorm: 499258 TAKE 1 TABLET DAILY 01/25/2014 10/07/2016 Inactive finasteride 5 mg tablet RxNorm: 329823 1 Tablet(s) PO daily 12/201309/30/2014 Inactive [SAVINGS FOR UNINSURED PATIENTS -- BIN:087980, PCN: ASPROD1, Group: [id number] , ID# [id number], Process claim through SmartCup, for questions: . THIS IS NOT INSURANCE.] sucralfate 100 mg/mL oral suspension RxNorm: 319031 10 Milliliter(s) PO QID 01/23/2014 09/30/2014 Inactive dispense qs x 1 month lisinopril 20 mg tablet RxNorm: 829108 TAKE ONE TABLET BY MOUTH TWICE DAILY 12/27/2013 03/26/2014 Inactive pantoprazole 40 mg tablet,delayed release RxNorm: 974312 1 Tablet(s) PO daily 12/26/2013 12/25/2013 Inactive [SAVINGS FOR UNINSURED PATIENTS -- BIN:971879, PCN: ASPROD1, Group: [id number], ID# [id number], Process claim through SmartCup, for questions: . THIS IS NOT INSURANCE.] pantoprazole 40 mg tablet,delayed release RxNorm: 126369 1 Tablet(s) PO daily 12/26/2013 12/20/2014 Inactive [SAVINGS FOR UNINSURED PATIENTS -- BIN:858391, PCN: ASPROD1, Group: [id number], ID# [id number], Process claim through SmartCup, for questions: . THIS IS NOT INSURANCE.] gemfibrozil 600 mg tablet RxNorm: 842368 1 Tablet(s) PO BID 11/201310/23/2013 Inactive gemfibrozil 600 mg tablet RxNorm: 152467 1 Tablet(s) PO BID 11/201309/30/2014 Inactive [SAVINGS FOR UNINSURED PATIENTS -- BIN:941586, PCN: ASPROD1, Group: [id number] , ID# [id number], Process claim through MedImpact, for questions: . THIS IS NOT INSURANCE.] finasteride 5 mg tablet RxNorm: 908482 1 Tablet(s) PO daily 04/201301/24/2014 Inactive [SAVINGS FOR UNINSURED PATIENTS -- BIN:610620, PCN: ASPROD1, Group: [id number] , ID# [id number], Process claim through MedImpact, for questions: . THIS IS NOT INSURANCE.] Lantus Solostar 100 unit/mL (3 mL) subcutaneous insulin pen RxNorm: 290063 20 Unit(s) SQ daily 10/09/2013 05/29/2014 Inactive [SAVINGS FOR UNINSURED PATIENTS -- BIN:407641, PCN: ASPROD1, Group: [id number], ID# [id number], Process claim through MedImpact, for questions: . THIS IS NOT INSURANCE.] glipizide 10 mg tablet RxNorm: 754872 1 Tablet(s) PO daily 04/05/2014 Inactive [SAVINGS FOR UNINSURED PATIENTS -- BIN:711142, PCN: ASPROD1, Group: [id number] , ID# [id number], Process claim through MedImpact, for questions: . THIS IS NOT INSURANCE.] Lantus Solostar 100 unit/mL (3 mL) subcutaneous insulin pen RxNorm: 378997 20 Unit(s) SQ daily 07/18/2013 10/08/2013 Inactive Sinemet 25 mg-100 mg tablet RxNorm: 913195 1 Tablet(s) PO BID one pill in morning , one at supper 07/10/2013 01/25/2014 Inactive Sinemet 25 mg-100 mg tablet RxNorm: 501424 1 Tablet(s) PO BID one pill in morning , one at supper 04/24/2013 07/09/2013 Inactive metformin ER 500 mg tablet,extended release 24 hr RxNorm: 505446 1 Tablet(s) PO BID 04/24/2013 04/18/2014 Inactive glipizide 10 mg tablet RxNorm: 410943 1 Tablet(s) PO daily 09/201310/08/2013 Inactive lisinopril 20 mg tablet RxNorm: 689534 1 Tablet(s) PO BID 04/2410/20/2013 Inactive pravastatin 10 mg tablet RxNorm: 992000 1 Tablet(s) PO daily 10/20/2013 Inactive Lantus Solostar 100 unit/mL (3 mL) subcutaneous insulin pen RxNorm: 616465 20 Unit(s) SQ daily 04/24/2013 07/17/2013 Inactive glipizide 10 mg tablet RxNorm: 485238 1 Tablet(s) PO daily 05/201304/23/2013 Inactive glipizide 10 mg tablet RxNorm: 985925 1 Tablet(s) PO daily 05/201204/19/2013 Inactive Lantus Solostar 100 unit/mL (3 mL) subcutaneous insulin pen RxNorm: 321772 16 Unit(s) SQ daily 03/20/2013 04/23/2013 Inactive Sinemet 25 mg-100 mg tablet RxNorm: 361187 1 Tablet(s) PO BID one pill in morning , one at supper 01/20/2013 04/23/2013 Inactive Lantus Solostar 100 unit/mL (3 mL) subcutaneous insulin pen RxNorm: 748216 16 Unit(s) SQ daily 01/19/2013 01/25/2013 Inactive Sinemet 25 mg-100 mg tablet RxNorm: 486945 1 Tablet(s) PO BID one pill in morning , one at supper 01/19/2013 01/19/2013 Inactive glipizide 10 mg tablet RxNorm: 739234 1 Tablet(s) PO BID 201203/19/2013 Inactive Lantus Solostar 100 unit/mL (3 mL) Sub-Q Insulin Pen RxNorm: 226526 12 Unit(s) SQ daily 12/21/2012 01/18/2013 Inactive lisinopril 20 mg tablet RxNorm: 068256 1 Tablet(s) PO BID 12/0804/23/2013 Inactive metformin ER 500 mg tablet,extended release 24 hr RxNorm: 014170 1 Tablet(s) PO BID 11/30/2012 04/23/2013 Inactive Lantus Solostar 100 unit/mL (3 mL) Sub-Q Insulin Pen RxNorm: 142195 5 Unit(s) SQ daily 11/30/2012 12/07/2012 Inactive FINASTERIDE TAB 5MG RxNorm: 10/03/2012 Inactive lisinopril 20 mg tablet RxNorm: 294984 1 Tablet(s) PO BID 09/0812/06/2012 Inactive glipizide 10 mg tablet RxNorm: 131256 1 Tablet(s) PO BID 201212/30/2012 Inactive metronidazole 500 mg tablet RxNorm: 933217 1 Tablet(s) PO TID 05/30/2012 06/08/2012 Inactive metformin ER 500 mg tablet,extended release 24 hr RxNorm: 809216 2 Tablet(s) PO daily 04/22/2012 11/29/2012 Inactive metformin ER 500 mg tablet,extended release 24 hr RxNorm: 181048 2 Tablet(s) PO daily 04/21/2012 04/21/2012 Inactive ketoconazole 2 % Topical Cream RxNorm: 498630 1 Application TOP BID 04/14/2012 05/04/2012 Inactive ketoconazole 2 % Shampoo RxNorm: 609011 1 Application TOP every other day apply to feet, leave on for 5 minutes, then rinse. 04/14/2012 04/27/2012 Inactive clotrimazole 1 % Topical Cream RxNorm: 190652 1 Application TOP BID 02/22/2012 04/03/2012 Inactive glipizide 10 mg tablet RxNorm: 106514 1 Tablet(s) PO BID 201106/18/2012 Inactive lisinopril 20 mg tablet RxNorm: 769330 1 Tablet(s) PO BID 09/0108/26/2012 Inactive metformin ER 500 mg tablet,extended release 24 hr RxNorm: 992496 2 Tablet(s) PO daily 08/10/2011 04/20/2012 Inactive metformin ER 1,000 mg 24 hr Tab Ctrl Rel RxNorm: 057595 1 Tablet(s) PO daily 07/28/2011 08/09/2011 Inactive Kombiglyze XR 5 mg-1,000 mg 24 hr Tab RxNorm: 5769462 1 Tablet(s) PO daily 07/28/2011 07/27/2011 Inactive Kombiglyze XR 5 mg-1,000 mg 24 hr Tab RxNorm: 5730099 1 Tablet(s) PO daily 07/28/2011 07/28/2011 Inactive glipizide 10 mg tablet RxNorm: 122612 1 Tablet(s) PO BID 201107/27/2011 Inactive glipizide 10 mg Tab RxNorm: 754597 1 Tablet(s) PO BID 201106/16/2011 Inactive glipizide 10 mg Tab RxNorm: 006194 1 Tablet(s) PO BID 201006/15/2011 Inactive glipizide 10 mg Tab RxNorm: 648926 1 Tablet(s) PO BID 201004/01/2011 Inactive glipizide 10 mg Tab RxNorm: 900111 Tablet(s) PO BID 201003/31/2011 Inactive Calcium + Vitamin D 600 mg calcium-200 unit tablet RxNorm: 492461 1 Tablet(s) PO BID No Start Date Active pantoprazole 40 mg tablet,delayed release RxNorm: 540655 1 Tablet(s) PO daily No Start Date 12/25/2013 Inactive Sinemet 25 mg-100 mg tablet RxNorm: 050234 1/2 Tablet(s) PO BID one pill in morning, one at supper No Start Date 01/18 Inactive levothyroxine 100 mcg tablet RxNorm: 943916 1 Tablet(s) PO daily No Start Date 10/04/2016 Inactive lisinopril 20 mg Tab RxNorm: 716545 1 Tablet(s) PO BID No Start Date 09/01/2011 Inactive hydrocodone 5 mg-acetaminophen 325 mg tablet RxNorm: 449430 1-2 Tablet(s) PO Q6- 8H No Start Date 01/20/2016 Inactive pravastatin 10 mg tablet RxNorm: 555471 1 Tablet(s) PO daily No Start Date 04/23/2013 Inactive Medication Administered Medication Codes Instructions Start Date Status Kenalog 40 mg/mL suspension for injection RxNorm: 3214624 1Milliliter 07/30/2016 No longer Active Kenalog 40 mg/mL suspension for injection RxNorm: 3049246 1Milliliter 01/20/2016 No longer Active Immunizations Vaccine Codes Date Status PPD Unknown 03/20/2015 completed Pneumococcal (Adult) CVX: 133 03/08/2015 completed Pneumococcal (Adult) CVX: 33 01/23/2014 completed Influenza CVX: 141 01/19/2013 completed Assessments Condition Codes Effective Dates Parkinson's disease ICD-10: G20 ICD-9: 332.0 09/16/2017 Type 2 diabetes mellitus with hyperglycemia ICD-10: E11.65 ICD-9: 250.00 09/16/2017 Essential (primary) hypertension ICD-10: I10 ICD-9: 401.1 09/16/2017 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 ICD-9: 244.8 09/16/2017 Localized edema ICD-10: R60.0 ICD-9: 782.3 05/13/2017 Type 2 diabetes mellitus without complications ICD-10: E11.9 ICD-9: 250.00 05/13/2017 Rash and other nonspecific skin eruption ICD-10: R21 ICD-9: 782.1 04/28/2017 Hypothyroidism, unspecified ICD-10: E03.9 ICD-9: 244.9 02/04/2017 Essential (primary) hypertension ICD-10: I10 ICD-9: 401.9 02/04/2017 Encounter for general adult medical examination [...] Reason For Visit Effective Dates Notes hypothyroid 09/16/2017 rash 07/13/2017 rash 05/13/2017 rash [...] Observation Code Item Item Code Result Date Comp Metabolic Cyh608 NA 134 mEq/L 09/17/2017 Comp Metabolic Yrp260 K 4.4 mEq/L 09/17/2017 Comp Metabolic Jed285 CL 98 mEq/L 09/17/2017 Comp Metabolic Bbb841 CO2 25.0 mEq/L 09/17/2017 Comp Metabolic Fzn274 ANION GAP 15 09/17/2017 Comp Metabolic Lpz891 GLUCOSE 97 mg/dL 09/17/2017 Comp Metabolic Ozo237 Creat 1.7 mg/dL 09/17/2017 Comp Metabolic Irh368 eGFR 40 ml/min/1.73m2 09/17/2017 Comp Metabolic Mvo809 BUN 28 mg/dL 09/17/2017 Comp Metabolic Fze772 B/C Ratio 16.2 Ratio 09/17/2017 Comp Metabolic Uzg445 CALCIUM 9.1 mg/dL 09/17/2017 Comp Metabolic Btk116 ALK PHOS 76 U/L 09/17/2017 Comp Metabolic Oim298 AST(SGOT) 17 U/L 09/17/2017 Comp Metabolic Maj948 ALT(SGPT) 15 U/L 09/17/2017 Comp Metabolic Jkt111 BILI T 0.7 mg/dL 09/17/2017 Comp Metabolic Tre385 ALBUMIN 4.1 g/dL 09/17/2017 Comp Metabolic Rof119 TPRO 6.9 g/dL 09/17/2017 Comp Metabolic Hyx549 GLOB 2.8 g/dL 09/17/2017 Comp Metabolic Smw041 A/G Ratio 1.5 Ratio 09/17/2017 Comp Metabolic Wpj610 Osmo 274 mOsmo 09/17/2017 Free T4 Boh631 FREE T4 1.10 ng/dL 09/17/2017 Tsh Ord6 [...] 31.5 pg 09/17/2017 Cbc With Differential Ord2 Bland% 9.5 % 09/17/2017 Cbc With Differential Ord2 [...] 1.93 K/ul 09/17/2017 Cbc With Differential Ord2 Bland ABS# 0.7 K/ul 09/17/2017 Cbc With Differential Ord2 Eos ABS# 0.2 K/ul 09/17/2017 Cbc With Differential Ord2 Baso ABS# 0.0 K/ul 09/17/2017 %Hba1C Zsj216 % HbA1c 66021-1 6.8 % 09/17/2017 %Hba1C Gkv958 Gluc Ave 148 mg/dL 09/17/2017 %Hba1C Jrr242 % HbA1c 14652-7 7.0 % 05/13/2017 %Hba1C Deq512 Gluc Ave 154 mg/dL 05/13/2017 Free T4 Tjr596 FREE T4 1.29 ng/dL 05/13/2017 Tsh Ord6 TSH (3rd IS) 4.14 uIU/mL 05/13/2017 Tsh Ord6 hTSH II 9.43 uIU/mL 02/02/2017 Comp Metabolic Ogm269 NA 134 mEq/L 02/02/2017 Comp Metabolic Tjc373 K 4.4 mEq/L 02/02/2017 Comp Metabolic Smo711 CL 99 mEq/L 02/02/2017 Comp Metabolic Hrz367 CO2 26.0 mEq/L 02/02/2017 Comp Metabolic Ooq855 ANION GAP 13 02/02/2017 Comp Metabolic Dem440 GLUCOSE 256 mg/dL 02/02/2017 Comp Metabolic Qpx517 Creat 1.6 mg/dL 02/02/2017 Comp Metabolic Lzu725 eGFR 45 ml/min/1.73m2 02/02/2017 Comp Metabolic Htn956 BUN 26 mg/dL 02/02/2017 Comp Metabolic Ipx505 B/C Ratio 16.6 Ratio 02/02/2017 Comp Metabolic Wby023 CALCIUM 8.7 mg/dL 02/02/2017 Comp Metabolic Htr601 ALK PHOS 63 U/L 02/02/2017 Comp Metabolic Rbi780 AST(SGOT) 11 U/L 02/02/2017 Comp Metabolic Gwa985 ALT(SGPT) 9 U/L 02/02/2017 Comp Metabolic Ixb614 BILI T 0.5 mg/dL 02/02/2017 Comp Metabolic Xnc412 ALBUMIN 3.7 g/dL 02/02/2017 Comp Metabolic Pri063 TPRO 6.1 g/dL 02/02/2017 Comp Metabolic Vmx240 GLOB 2.4 g/dL 02/02/2017 Comp Metabolic Kcc370 A/G Ratio 1.6 Ratio 02/02/2017 Comp Metabolic Qof018 Osmo 282 mOsmo 02/02/2017 %Hba1C Mou832 % HbA1c 42260-5 7.5 % 02/02/2017 %Hba1C Nzn578 Gluc Ave 169 mg/dL 02/02/2017 Free T4 Vze479 FREE T4 1.23 ng/dL 02/02/2017 Cbc With [...] 93.0 fl 02/02/2017 Cbc With Differential Ord2 Bland% 9.6 % 02/02/2017 Cbc With Differential Ord2 [...] 2.61 K/ul 02/02/2017 Cbc With Differential Ord2 Bland ABS# 0.8 K/ul 02/02/2017 Cbc With Differential Ord2 Eos ABS# 0.2 K/ul 02/02/2017 Cbc With Differential Ord2 Baso ABS# 0.1 K/ul 02/02/2017 Total T3 Ord42 TT3 0.59 ng/ml 07/14/2016 Free T4 Qaf443 FREE T4 1.14 ng/dL 07/14/2016 Cbc With [...] 34.9 % 06/22/2016 Cbc With Differential Ord2 Bland% 9.9 % 06/22/2016 Cbc With Differential Ord2 [...] 2.41 K/ul 06/22/2016 Cbc With Differential Ord2 Bland ABS# 0.7 K/ul 06/22/2016 Cbc With Differential Ord2 Eos ABS# 0.2 K/ul 06/22/2016 Cbc With Differential Ord2 Baso ABS# 0.0 K/ul 06/22/2016 Comp Metabolic Fcz522 NA 134 mEq/L 06/22/2016 Comp Metabolic Jnz892 K 4.3 mEq/L 06/22/2016 Comp Metabolic Dxa154 CL 100 mEq/L 06/22/2016 Comp Metabolic Txa368 CO2 26.0 mEq/L 06/22/2016 Comp Metabolic Svq606 ANION GAP 12 06/22/2016 Comp Metabolic Mol095 GLUCOSE 222 mg/dL 06/22/2016 Comp Metabolic Pog687 Creat 1.5 mg/dL 06/22/2016 Comp Metabolic Crb427 eGFR 49 ml/min/1.73m2 06/22/2016 Comp Metabolic Twc454 BUN 23 mg/dL 06/22/2016 Comp Metabolic Yzt766 B/C Ratio 15.9 Ratio 06/22/2016 Comp Metabolic Plw937 CALCIUM 9.0 mg/dL 06/22/2016 Comp Metabolic Mrn221 ALK PHOS 59 U/L 06/22/2016 Comp Metabolic Iso980 AST(SGOT) 13 U/L 06/22/2016 Comp Metabolic Kwc715 ALT(SGPT) 11 U/L 06/22/2016 Comp Metabolic Bwr518 BILI T 0.5 mg/dL 06/22/2016 Comp Metabolic Ovi391 ALBUMIN 3.8 g/dL 06/22/2016 Comp Metabolic Rjo085 TPRO 6.2 g/dL 06/22/2016 Comp Metabolic Tyx165 GLOB 2.4 g/dL 06/22/2016 Comp Metabolic Gnf283 A/G Ratio 1.6 Ratio 06/22/2016 Comp Metabolic Jlw446 Osmo 279 mOsmo 06/22/2016 Tsh Ord6 hTSH II 0.44 uIU/mL 06/22/2016 Comp Metabolic Ztr626 NA 134 mEq/L 04/27/2016 Comp Metabolic Sjl133 K 4.6 mEq/L 04/27/2016 Comp Metabolic Ldo405 CL 99 mEq/L 04/27/2016 Comp Metabolic Mlo941 CO2 27.0 mEq/L 04/27/2016 Comp Metabolic Lot270 ANION GAP 13 04/27/2016 Comp Metabolic Ume537 GLUCOSE 178 mg/dL 04/27/2016 Comp Metabolic Kgy649 Creat 1.4 mg/dL 04/27/2016 Comp Metabolic Lvh208 eGFR 53 ml/min/1.73m2 04/27/2016 Comp Metabolic Ale680 BUN 24 mg/dL 04/27/2016 Comp Metabolic Qmv862 B/C Ratio 17.5 Ratio 04/27/2016 Comp Metabolic Sea920 CALCIUM 9.1 mg/dL 04/27/2016 Comp Metabolic Rix701 ALK PHOS 72 U/L 04/27/2016 Comp Metabolic Utt836 AST(SGOT) 16 U/L 04/27/2016 Comp Metabolic Kdi570 ALT(SGPT) 12 U/L 04/27/2016 Comp Metabolic Iog551 BILI T 0.6 mg/dL 04/27/2016 Comp Metabolic Bzi071 ALBUMIN 4.1 g/dL 04/27/2016 Comp Metabolic Tok610 TPRO 6.8 g/dL 04/27/2016 Comp Metabolic Ueo876 GLOB 2.7 g/dL 04/27/2016 Comp Metabolic Xka192 A/G Ratio 1.6 Ratio 04/27/2016 Comp Metabolic Opk844 Osmo 277 mOsmo 04/27/2016 Cbc With Differential [...] 33.1 % 04/27/2016 Cbc With Differential Ord2 Bland% 9.7 % 04/27/2016 Cbc With Differential Ord2 [...] 2.89 K/ul 04/27/2016 Cbc With Differential Ord2 Bland ABS# 0.9 K/ul 04/27/2016 Cbc With Differential Ord2 Eos ABS# 0.2 K/ul 04/27/2016 Cbc With Differential Ord2 Baso ABS# 0.0 K/ul 04/27/2016 %Hba1C Rsz551 % HbA1c 97611-6 7.2 % 04/27/2016 %Hba1C Bjl204 Gluc Ave 160 mg/dL 04/27/2016 Cbc With [...] 31.0 pg 01/21/2016 Cbc With Differential Ord2 Bland% 8.9 % 01/21/2016 Cbc With Differential Ord2 [...] 1.91 K/ul 01/21/2016 Cbc With Differential Ord2 Bland ABS# 0.6 K/ul 01/21/2016 Cbc With Differential Ord2 Eos ABS# 0.2 K/ul 01/21/2016 Cbc With Differential Ord2 Baso ABS# 0.0 K/ul 01/21/2016 Comp Metabolic Agg967 NA 134 mEq/L 01/21/2016 Comp Metabolic Jeg735 K 5.0 mEq/L 01/21/2016 Comp Metabolic Qxv538 CL 99 mEq/L 01/21/2016 Comp Metabolic Usa308 CO2 26.0 mEq/L 01/21/2016 Comp Metabolic Xus438 ANION GAP 14 01/21/2016 Comp Metabolic Dql404 GLUCOSE 260 mg/dL 01/21/2016 Comp Metabolic Hne905 Creat 1.5 mg/dL 01/21/2016 Comp Metabolic Kdi382 eGFR 50 ml/min/1.73m2 01/21/2016 Comp Metabolic Pun833 BUN 18 mg/dL 01/21/2016 Comp Metabolic Mjz361 B/C Ratio 12.4 Ratio 01/21/2016 Comp Metabolic Cyz772 CALCIUM 8.8 mg/dL 01/21/2016 Comp Metabolic Rkn165 ALK PHOS 68 U/L 01/21/2016 Comp Metabolic Zhm143 AST(SGOT) 16 U/L 01/21/2016 Comp Metabolic Ktt763 ALT(SGPT) 16 U/L 01/21/2016 Comp Metabolic Cqd885 BILI T 0.5 mg/dL 01/21/2016 Comp Metabolic Znv987 ALBUMIN 3.8 g/dL 01/21/2016 Comp Metabolic Sdi742 TPRO 6.3 g/dL 01/21/2016 Comp Metabolic Xfn618 GLOB 2.5 g/dL 01/21/2016 Comp Metabolic Cqh591 A/G Ratio 1.5 Ratio 01/21/2016 Comp Metabolic Ivp615 Osmo 279 mOsmo 01/21/2016 %Hba1C Xgy947 % HbA1c 92842-9 7.4 % 01/21/2016 %Hba1C Pza817 Gluc Ave 166 mg/dL 01/21/2016 Metabolic Ord15 [...] Qnt Crqnt CRP 1.5 mg/dl 09/17/2015 %Hba1C Xew180 % HbA1c 46220-9 7.1 % 09/17/2015 %Hba1C Qzj212 Gluc Ave 157 mg/dL 09/17/2015 Cbc With [...] 31.7 pg 08/06/2015 Cbc With Differential Ord2 Bland% 9.6 % 08/06/2015 Cbc With Differential Ord2 [...] 2.90 K/ul 08/06/2015 Cbc With Differential Ord2 Bland ABS# 0.7 K/ul 08/06/2015 Cbc With Differential Ord2 Eos ABS# 0.2 K/ul 08/06/2015 Cbc With Differential Ord2 Baso ABS# 0.0 K/ul 08/06/2015 Cbc With Differential Ord2 New Analyzer Notice Please note new ref ranges starting 05-01-2015 due to implemntation of new five part differential hematolgy analyzer. 08/06/2015 Comp Metabolic Mar092 NA 132 mEq/L 08/06/2015 Comp Metabolic Ram757 K 4.6 mEq/L 08/06/2015 Comp Metabolic Ctg812 CL 98 mEq/L 08/06/2015 Comp Metabolic Bdj736 CO2 25.0 mEq/L 08/06/2015 Comp Metabolic Tqj439 ANION GAP 14 08/06/2015 Comp Metabolic Etk256 GLUCOSE 170 mg/dL 08/06/2015 Comp Metabolic Wwz430 Creat 1.5 mg/dL 08/06/2015 Comp Metabolic Ach754 eGFR 46 ml/min/1.73m2 08/06/2015 Comp Metabolic Wny804 BUN 21 mg/dL 08/06/2015 Comp Metabolic Udz929 B/C Ratio 13.6 Ratio 08/06/2015 Comp Metabolic Bom251 CALCIUM 8.9 mg/dL 08/06/2015 Comp Metabolic Hlp823 ALK PHOS 60 U/L 08/06/2015 Comp Metabolic Ghk072 AST(SGOT) 16 U/L 08/06/2015 Comp Metabolic Qeb747 ALT(SGPT) 18 U/L 08/06/2015 Comp Metabolic Mrs075 BILI T 0.4 mg/dL 08/06/2015 Comp Metabolic Hxk781 ALBUMIN 3.8 g/dL 08/06/2015 Comp Metabolic Gtx572 TPRO 6.3 g/dL 08/06/2015 Comp Metabolic Bfc813 GLOB 2.5 g/dL 08/06/2015 Comp Metabolic Vth657 A/G Ratio 1.6 Ratio 08/06/2015 Comp Metabolic Ucp058 Osmo 271 mOsmo 08/06/2015 Tsh Ord6 hTSH II 0.95 uIU/mL 06/17/2015 Free T4 Ice120 FREE T4 1.08 ng/dL 06/17/2015 Metabolic Ord15 [...] Ord15 CALCIUM 9.0 mg/dL 05/06/2015 Comp Metabolic Iao667 NA 143 mEq/L 03/04/2015 Comp Metabolic Ddu247 K 4.5 mEq/L 03/04/2015 Comp Metabolic Oav730 CL 92 mEq/L 03/04/2015 Comp Metabolic Izu386 CO2 24.0 mEq/L 03/04/2015 Comp Metabolic Azr063 ANION GAP 32 03/04/2015 Comp Metabolic Tln579 GLUCOSE 72 mg/dL 03/04/2015 Comp Metabolic Kxd765 Creat 1.5 mg/dL 03/04/2015 Comp Metabolic Zdi788 eGFR 48 ml/min/1.73m2 03/04/2015 Comp Metabolic Vui633 BUN 27 mg/dL 03/04/2015 Comp Metabolic Pig786 B/C Ratio 18.0 Ratio 03/04/2015 Comp Metabolic Pbt197 CALCIUM 9.1 mg/dL 03/04/2015 Comp Metabolic Tzv712 ALK PHOS 58 U/L 03/04/2015 Comp Metabolic Amb657 AST(SGOT) 16 U/L 03/04/2015 Comp Metabolic Btm435 ALT(SGPT) 13 U/L 03/04/2015 Comp Metabolic Wvx347 BILI T 0.6 mg/dL 03/04/2015 Comp Metabolic Sge372 ALBUMIN 4.0 g/dL 03/04/2015 Comp Metabolic Piq205 TPRO 6.6 g/dL 03/04/2015 Comp Metabolic Hnx529 GLOB 2.6 g/dL 03/04/2015 Comp Metabolic Sfd748 A/G Ratio 1.6 Ratio 03/04/2015 Comp Metabolic Iww708 Osmo 289 mOsmo 03/04/2015 %Hba1C Yow932 % HbA1c 00429-8 7.3 % 01/28/2015 %Hba1C Wvs093 Gluc Ave 163 mg/dL 01/28/2015 MICRALUR 1724004 MICRL MG/L 13.2 MG/L 10/01/2014 MICRALUR 8263535 XM.ALB/CRE 48.9 MG/GCR 10/01/2014 MICRALUR 0378662 CREAT MG/D 27 MG/DL 10/01/2014 MICRALUR 3649646 CRE/100 0.27 G/L 10/01/2014 A1C HPLC 6987662 A1C HPLC 77022-6 7.3 % 10/01/2014 TSH 5536670 TSH 0.423 uIU/ML 10/01/2014 TSH 8219471 TSH 0.612 uIU/ML 10/18/2013 A1C HPLC 3099460 A1C HPLC 87381-6 6.8 % 10/18/2013 GFR CALC 2700465 GFR AA >60 ML/MIN 10/18/2013 GFR CALC 8178549 GFR NON-AA 52.0L ML/MIN 10/18/2013 LIPID GRP HDL TEST 30 MG/DL 10/18/2013 LIPID GRP TRIG 425 MG/DL 10/18/2013 LIPID GRP TEST LDL HI TRIG MG/DL 10/18/2013 LIPID GRP CHOL 185 MG/DL 10/18/2013 LIPID GRP RCHOL/HDL 6.17 RATIO 10/18/2013 MICRALUR MICRL MG/L 15.6 MG/L 10/18/2013 MICRALUR XM.ALB/CRE 9.2 MG/GCR 10/18/2013 MICRALUR CREAT MG/D 169 MG/DL 10/18/2013 MICRALUR CRE/100 1.69 G/L 10/18/2013 CHEM 14 3945903 AST 20 U/L 10/18/2013 CHEM 14 6597068 ALT 13 IU/L 10/18/2013 CHEM 14 3216923 BUN 27 MG/DL 10/18/2013 CHEM 14 5480584 ALBUMIN 4.2 GM/DL 10/18/2013 CHEM 14 2660898 CHLORIDE 100 MMOL/L 10/18/2013 CHEM 14 5883389 BILI TOT 0.5 MG/DL 10/18/2013 CHEM 14 9295877 ALK PHOS 60 U/L 10/18/2013 CHEM 14 2349879 SODIUM 131 MMOL/L 10/18/2013 CHEM 14 7868509 CREATININE 1.32 MG/DL 10/18/2013 CHEM 14 6131395 CALCIUM 9.2 MG/DL 10/18/2013 CHEM 14 1472121 POTASSIUM 4.7 MMOL/L 10/18/2013 CHEM 14 7607997 PROT TOT 7.7 GM/DL 10/18/2013 CHEM 14 5757676 GLUCOSE 140 MG/DL 10/18/2013 CHEM 14 4713473 BICARB 24 MMOL/L 10/18/2013 CHEM 14 5739617 ANION GAP 7 MEQ/L 10/18/2013 PSA EQ 20110613 PSA EQ 7.79 NG/ML 10/18/2013 CBC 1077983 WBC 6.6 10e9/L 10/18/2013 CBC 5514487 RBC 4.58 10e12/L 10/18/2013 CBC 1381142 HGB 14.6 g/dL 10/18/2013 CBC 8479396 HCT DET 42.8 % 10/18/2013 CBC 0436169 MCV 93.4 fL 10/18/2013 CBC 8391978 MCH 31.9 pg 10/18/2013 CBC 8258120 MCHC 34.1 g/dL 10/18/2013 CBC 6403589 PLT 172 10e9/L 10/18/2013 CBC 6285770 MPV 9.3 fL 10/18/2013 CBC 9604020 JAYESH % 55.4 % 10/18/2013 CBC 7140781 LY % 33.0 % 10/18/2013 CBC 2400055 MON % 8.8 % 10/18/2013 CBC 4446814 EOS % 2.6 % 10/18/2013 CBC 9206991 BASO % 0.2 % 10/18/2013 CBC 9522954 RDW 12.7 % 10/18/2013 CBC 5617864 ABS JAYESH 3.66 10e9/L 10/18/2013 CBC 6596338 ABS LYMPH 2.18 10e9/L 10/18/2013 CBC 6355826 ABS MONO 0.58 10e9/L 10/18/2013 CBC 4778426 ABS EOS 0.17 10e9/L 10/18/2013 CBC 2515875 ABS BASO 0.01 10e9/L 10/18/2013 CBC 1432997 RDW-SD 42.6 fL 10/18/2013 TSH 1888293 TSH 1.257 uIU/ML 05/05/2013 CHEM 14 8330013 AST 15 U/L 05/05/2013 CHEM 14 8563668 ALT 13 IU/L 05/05/2013 CHEM 14 1402632 BUN 22 MG/DL 05/05/2013 CHEM 14 4299496 ALBUMIN 4.2 GM/DL 05/05/2013 CHEM 14 1043417 CHLORIDE 104 MMOL/L 05/05/2013 CHEM 14 7350495 BILI TOT 0.6 MG/DL 05/05/2013 CHEM 14 9162207 ALK PHOS 52 U/L 05/05/2013 CHEM 14 5440077 SODIUM 137 MMOL/L 05/05/2013 CHEM 14 3220084 CREATININE 1.25 MG/DL 05/05/2013 CHEM 14 0772904 CALCIUM 9.1 MG/DL 05/05/2013 CHEM 14 7985879 POTASSIUM 5.0 MMOL/L 05/05/2013 CHEM 14 7198554 PROT TOT 6.7 GM/DL 05/05/2013 CHEM 14 6716168 GLUCOSE 142 MG/DL 05/05/2013 CHEM 14 2731778 BICARB 27 MMOL/L 05/05/2013 CHEM 14 7007030 ANION GAP 6 MEQ/L 05/05/2013 GFR CALC 2676171 GFR AA >60 ML/MIN 05/05/2013 GFR CALC 1997369 GFR NON-AA 56.0L ML/MIN 05/05/2013 CBC 6219277 WBC 6.1 10e9/L 05/05/2013 CBC 7497334 RBC 4.74 10e12/L 05/05/2013 CBC 2109154 HGB 14.7 g/dL 05/05/2013 CBC 3777456 HCT DET 43.6 % 05/05/2013 CBC 2041901 MCV 92.0 fL 05/05/2013 CBC 3055061 MCH 31.0 pg 05/05/2013 CBC 8646366 MCHC 33.7 g/dL 05/05/2013 CBC 9415420 PLT 168 10e9/L 05/05/2013 CBC 7025853 MPV 9.3 fL 05/05/2013 CBC 2887277 JAYESH % 53.2 % 05/05/2013 CBC 6862290 LY % 35.3 % 05/05/2013 CBC 6948351 MON % 8.7 % 05/05/2013 CBC 6098541 EOS % 2.5 % 05/05/2013 CBC 8581144 BASO % 0.3 % 05/05/2013 CBC 2023983 RDW 13.5 % 05/05/2013 CBC 3407293 ABS JAYESH 3.25 10e9/L 05/05/2013 CBC 1500927 ABS LYMPH 2.15 10e9/L 05/05/2013 CBC 6065674 ABS MONO 0.53 10e9/L 05/05/2013 CBC 8223956 ABS EOS 0.15 10e9/L 05/05/2013 CBC 3874441 ABS BASO 0.02 10e9/L 05/05/2013 CBC 3450124 RDW-SD 44.8 fL 05/05/2013 A1C HPLC 6209268 A1C HPLC 99650-2 6.4 % 05/05/2013 LIPID GRP 2128075 HDL TEST 32 MG/DL 05/05/2013 LIPID GRP TRIG 170 MG/DL 05/05/2013 LIPID GRP 7422802 TEST LDL 73 MG/DL 05/05/2013 LIPID GRP CHOL 139 MG/DL 05/05/2013 LIPID GRP RCHOL/HDL 4.34 RATIO 05/05/2013 CHEM 14 6637608 AST 17 U/L 11/25/2012 CHEM 14 5528557 ALT 21 IU/L 11/25/2012 CHEM 14 4954978 BUN 20 MG/DL 11/25/2012 CHEM 14 8638694 ALBUMIN 4.4 GM/DL 11/25/2012 CHEM 14 0295525 CHLORIDE 99 MMOL/L 11/25/2012 CHEM 14 0369231 BILI TOT 0.6 MG/DL 11/25/2012 CHEM 14 2380656 ALK PHOS 50 U/L 11/25/2012 CHEM 14 3265963 SODIUM 129 MMOL/L 11/25/2012 CHEM 14 2125303 CREATININE 1.20 MG/DL 11/25/2012 CHEM 14 4840219 CALCIUM 9.2 MG/DL 11/25/2012 CHEM 14 4728098 POTASSIUM 5.1 MMOL/L 11/25/2012 CHEM 14 5047604 PROT TOT 6.7 GM/DL 11/25/2012 CHEM 14 5936982 GLUCOSE 196 MG/DL 11/25/2012 CHEM 14 9374939 BICARB 25 MMOL/L 11/25/2012 CHEM 14 3745632 ANION GAP 5 MEQ/L 11/25/2012 CBC 6232694 WBC 6.1 10e9/L 11/25/2012 CBC 3178894 RBC 4.78 10e12/L 11/25/2012 CBC 8826051 HGB 15.0 g/dL 11/25/2012 CBC 4125913 HCT DET 43.4 % 11/25/2012 CBC 1079532 MCV 90.8 fL 11/25/2012 CBC 3343693 MCH 31.4 pg 11/25/2012 CBC 3213676 MCHC 34.6 g/dL 11/25/2012 CBC 8730143 PLT 174 10e9/L 11/25/2012 CBC 3297082 MPV 9.5 fL 11/25/2012 CBC 5087002 JAYESH % 54.6 % 11/25/2012 CBC 8739218 LY % 32.9 % 11/25/2012 CBC 3441353 MON % 9.6 % 11/25/2012 CBC 7604526 EOS % 2.6 % 11/25/2012 CBC 2040599 BASO % 0.3 % 11/25/2012 CBC 1514788 RDW 12.9 % 11/25/2012 CBC 6866471 ABS JAYESH 3.33 10e9/L 11/25/2012 CBC 7629996 ABS LYMPH 2.01 10e9/L 11/25/2012 CBC 3542728 ABS MONO 0.59 10e9/L 11/25/2012 CBC 7028049 ABS EOS 0.16 10e9/L 11/25/2012 CBC 5091898 ABS BASO 0.02 10e9/L 11/25/2012 CBC 2429565 RDW-SD 42.3 fL 11/25/2012 LIPID GRP HDL TEST 39 MG/DL 11/25/2012 LIPID GRP TRIG 204 MG/DL 11/25/2012 LIPID GRP TEST LDL 100 MG/DL 11/25/2012 LIPID GRP CHOL 180 MG/DL 11/25/2012 LIPID GRP RCHOL/HDL 4.62 RATIO 11/25/2012 A1C HPLC 3006125 A1C HPLC 51423-2 8.2 % 11/25/2012 GFR CALC 6008318 GFR AA >60 ML/MIN 11/25/2012 GFR CALC 8055053 GFR NON-AA 58.0L ML/MIN 11/25/2012 TSH 8365863 TSH 0.636 uIU/ML 01/13/2012 A1C HPLC 6365759 A1C HPLC 29507-0 7.9 % 01/13/2012 GFR CALC 0815283 GFR AA >60 ML/MIN 01/13/2012 GFR CALC 7607627 GFR NON-AA 59.0L ML/MIN 01/13/2012 CBC 5536710 WBC 7.8 10e9/L 01/13/2012 CBC 6491650 RBC 4.93 10e12/L 01/13/2012 CBC 3287846 HGB 15.3 g/dL 01/13/2012 CBC 5430653 HCT DET 43.6 % 01/13/2012 CBC 7204936 MCV 88.4 fL 01/13/2012 CBC 4501961 MCH 31.0 pg 01/13/2012 CBC 0141023 MCHC 35.1 g/dL 01/13/2012 CBC 8033001 PLT 173 10e9/L 01/13/2012 CBC 4110624 MPV 9.1 fL 01/13/2012 CBC 5306810 JAYESH % 57.6 % 01/13/2012 CBC 1597380 LY % 31.5 % 01/13/2012 CBC 6734232 MON % 8.8 % 01/13/2012 CBC 9331115 EOS % 1.8 % 01/13/2012 CBC 7377924 BASO % 0.3 % 01/13/2012 CBC 4605908 RDW 12.9 % 01/13/2012 CBC 4377165 ABS JAYESH 4.49 10e9/L 01/13/2012 CBC 8096497 ABS LYMPH 2.46 10e9/L 01/13/2012 CBC 2299327 ABS MONO 0.69 10e9/L 01/13/2012 CBC 9845937 ABS EOS 0.14 10e9/L 01/13/2012 CBC 2694927 ABS BASO 0.02 10e9/L 01/13/2012 CBC 1190735 RDW-SD 41.2 fL 01/13/2012 CHEM 14 9514536 AST 21 U/L 01/13/2012 CHEM 14 8144940 ALT 23 IU/L 01/13/2012 CHEM 14 7342769 BUN 20 MG/DL 01/13/2012 CHEM 14 2439867 ALBUMIN 4.4 GM/DL 01/13/2012 CHEM 14 4479872 CHLORIDE 94 MMOL/L 01/13/2012 CHEM 14 4237295 BILI TOT 0.5 MG/DL 01/13/2012 CHEM 14 1403742 ALK PHOS 60 U/L 01/13/2012 CHEM 14 7630834 SODIUM 131 MMOL/L 01/13/2012 CHEM 14 5779399 CREATININE 1.20 MG/DL 01/13/2012 CHEM 14 5830860 CALCIUM 9.5 MG/DL 01/13/2012 CHEM 14 8494394 POTASSIUM 4.3 MMOL/L 01/13/2012 CHEM 14 4163447 PROT TOT 6.5 GM/DL 01/13/2012 CHEM 14 9699028 GLUCOSE 172 MG/DL 01/13/2012 CHEM 14 3861711 BICARB 26 MMOL/L 01/13/2012 CHEM 14 2903549 ANION GAP 11 MEQ/L 01/13/2012 Review of [...] clear 09/16/2017 None Full Exam - General 1995 Ears/Nose/Throat oral cavity/pharynx/larynx Overall: no masses 09/16/2017 [...] WOUN RTS (CULTURE OTHR SPECIMN AEROBIC) CPT-4: 30947 03/19/2015 DRAINAGE OF SKIN ABSCESS CPT-4: 37252 03/19/2015 ADMIN PNEUMOCOCCAL VACCINE SNOMED CT: 74370729 CPT-4: G0009 03/08/2015 PNEUMOCOCCAL VACC 13 THALIA IM Formatting Model/CDA Sections, Assigned to SNOMED CT: 47857238 CPT-4: 62614Uzmwbpa 03/08/2015 ADMIN PNEUMOCOCCAL VACCINE SNOMED CT: 04661083 CPT-4: G0009 01/23/2014 Pneumococcal Polysaccharide Vaccine, 23-Valent, Ad Assigned to/Merissa Sutton CPT-4: 67477Mdaxrjc 01/23/2014 DESTRUCT PREMALG LESION CPT-4: 90778 10/24/2013 DESTRUCT PREMALG LES 2-14 CPT-4: 01733 10/24/2013 ROUTINE VENIPUNCTURE CPT-4: 16686 05/05/2013 PRESCRIP TRANSMIT VIA ERX SY CPT-4: G8553 04/24/2013 DESTRUCT PREMALG LESION CPT-4: 35983 12/26/2012 PRESCRIP TRANSMIT VIA ERX SY CPT-4: G8553 11/30/2012 ROUTINE VENIPUNCTURE CPT-4: 78881 11/25/2012 PRESCRIP TRANSMIT VIA ERX SY CPT-4: G8553 05/30/2012 PRESCRIP TRANSMIT VIA ERX SY CPT-4: G8553 04/14/2012 PRESCRIP TRANSMIT VIA ERX SY CPT-4: G8553 02/22/2012 ROUTINE VENIPUNCTURE CPT-4: 79428 01/13/2012 ROUTINE VENIPUNCTURE CPT-4: 47930 08/06/2011 ROUTINE VENIPUNCTURE CPT-4: 53524 06/25/2011 Vital Signs Date Vital 09/16/2017 Blood Pressure 1: 136/78 Code : 8480-6 BMI: 28.8 Code : 41760-2 Heart Rate 1 : 74 bpm Height: 6'2" SpO2: 94% Weight: 224 lbs 07/13/2017 Blood Pressure 1: 142/78 Code : 8480-6 BMI: 29.3 Code : 18898-8 Heart Rate 1 : 67 bpm Height: 6'2" SpO2: 97% Weight: 228 lbs 05/13/2017 Blood Pressure 1: 154/82 Code : 8480-6 BMI: 30.0 Code : 37198-6 Heart Rate 1 : 65 bpm Height: 6'2" SpO2: 98% Weight: 234 lbs 04/28/2017 Blood Pressure 1: 134/78 Code : 8480-6 BMI: 29.7 Code : 37242-9 Heart Rate 1 : 73 bpm Height: 6'2" SpO2: 94% Weight: 231 lbs 04/15/2017 Blood Pressure 1: 152/74 Code : 8480-6 BMI: 29.7 Code : 30583-3 Heart Rate 1 : 64 bpm Height: 6'2" SpO2: 98% Weight: 231 lbs 02/04/2017 Blood Pressure 1: 140/78 Code : 8480-6 BMI: 30.0 Code : 24872-7 Heart Rate 1 : 83 bpm Height: 6'2" SpO2: 97% Weight: 234 lbs 10/12/2016 Blood Pressure 1: 148/68 Code : 8480-6 BMI: 29.3 Code : 38184-2 Heart Rate 1 : 65 bpm Height: 6'2" SpO2: 100% Weight: 228 lbs 10/08/2016 Blood Pressure 1: 148/68 Code : 8480-6 BMI: 29.3 Code : 78283-7 Heart Rate 1 : 65 bpm Height: 6'2" SpO2: 100% Weight: 228 lbs 8 oz 09/10/2016 Blood Pressure 1: 142/68 Code : 8480-6 BMI: 29.3 Code : 51962-4 Heart Rate 1 : 75 bpm Height: 6'2" SpO2: 97% Weight: 228 lbs 08/24/2016 Blood Pressure 1: 156/86 Code : 8480-6 BMI: 28.1 Code : 95191-6 Heart Rate 1 : 72 bpm Height: 6'2" SpO2: 97% Weight: 219 lbs 08/06/2016 Blood Pressure 1: 172/90 Code : 8480-6 BMI: 29.0 Code : 90572-6 Heart Rate 1 : 68 bpm Height: 6'2" SpO2: 98% Temperature: 36.1 (C) / 96.9 (F) Weight: 226 lbs 07/30/2016 Blood Pressure 1: 138/86 Code : 8480-6 BMI: 29.7 Code : 54613-9 Heart Rate 1 : 80 bpm Height: 6'2" SpO2: 95% Temperature: 36.5 (C) / 97.7 (F) Weight: 231 lbs 06/22/2016 Blood Pressure 1: 145/82 Code : 8480-6 Heart Rate 1: 77 bpm Respiratory Rate : 18 bpm SpO2: 97% Weight: 231 lbs 04/27/2016 Blood Pressure 1: 158/76 Code : 8480-6 Blood Pressure 1: 182/78 Code: 8480-6 BMI: 30.4 Code: 45886-6 Heart Rate 1: 69 bpm Height: 6'2" SpO2: 97% Weight: 237 lbs 03/23/2016 Blood Pressure 1: 140/82 Code : 8480-6 BMI: 30.4 Code : 01279-0 Heart Rate 1 : 77 bpm Height: 6'2" SpO2: 93% Weight: 237 lbs 01/20/2016 Blood Pressure 1: 142/80 Code : 8480-6 BMI: 31.2 Code : 41963-3 Heart Rate 1 : 64 bpm Height: 6'2" SpO2: 93% Weight: 243 lbs 12/16/2015 Blood Pressure 1: 138/88 Code : 8480-6 BMI: 30.3 Code : 39793-6 Heart Rate 1 : 62 bpm Height: 6'2" SpO2: 97% Weight: 236 lbs 12/09/2015 Blood Pressure 1: 148/80 Code : 8480-6 Blood Pressure 1: 198/92 Code: 8480-6 Blood Pressure 1: 152/70 Code: 8480-6 BMI: 30.3 Code: 42493-1 Heart Rate 1: 84 bpm Height: 6'2" Weight: 236 lbs 11/25/2015 Blood Pressure 1: 160/80 Code : 8480-6 BMI: 30.2 Code : 89836-6 Heart Rate 1 : 68 bpm Height: 6'2" SpO2: 96% Weight: 235 lbs 09/02/2015 Blood Pressure 1: 122/64 Code : 8480-6 BMI: 30.2 Code : 56684-1 Heart Rate 1 : 86 bpm Height: 6'2" SpO2: 98% Weight: 235 lbs 08/05/2015 Blood Pressure 1: 130/70 Code : 8480-6 Heart Rate 1: 81 bpm SpO2: 97% Weight: 233 lbs 07/25/2015 Blood Pressure 1: 142/80 Code : 8480-6 BMI: 30.0 Code : 49194-6 Heart Rate 1 : 74 bpm Height: 6'2" SpO2: 95% Weight: 234 lbs 06/03/2015 Blood Pressure 1: 150/68 Code : 8480-6 BMI: 30.0 Code : 88492-2 Heart Rate 1 : 66 bpm Height: 6'2" SpO2: 96% Weight: 234 lbs 03/19/2015 Blood Pressure 1: 154/78 Code : 8480-6 BMI: 30.3 Code : 66907-9 Heart Rate 1 : 63 bpm Height: 6'2" SpO2: 96% Weight: 236 lbs 03/04/2015 Blood Pressure 1: 124/68 Code : 8480-6 BMI: 30.2 Code : 39753-3 Heart Rate 1 : 60 bpm Height: 6'2" SpO2: 97% Weight: 235 lbs 02/20/2015 Blood Pressure 1: 160/84 Code : 8480-6 BMI: 30.8 Code : 93789-0 Heart Rate 1 : 79 bpm Height: 6'2" SpO2: 96% Weight: 240 lbs 02/11/2015 Blood Pressure 1: 170/102 Code: 8480-6 BMI: 31.1 Code: 78195-5 Heart Rate 1: 81 bpm Height: 6'2" SpO2: 96% Weight: 242 lbs 01/28/2015 Blood Pressure 1: 174/80 Code : 8480-6 Blood Pressure 2: 168/74 Code: 8480-6 BMI: 31.2 Code: 64643-0 Heart Rate 1: 74 bpm Height: 6'2" SpO2: 97% Weight: 243 lbs 10/01/2014 Blood Pressure 1: 152/84 Code : 8480-6 BMI: 30.4 Code : 73913-6 Heart Rate 1 : 80 bpm Height: 6'2" SpO2: 96% Weight: 237 lbs 05/30/2014 Blood Pressure 1: 140/82 Code : 8480-6 BMI: 30.6 Code : 07715-3 Heart Rate 1 : 86 bpm Height: 6'2" Weight: 238 lbs 02/28/2014 Blood Pressure 1: 152/86 Code : 8480-6 BMI: 29.5 Code : 47967-8 Heart Rate 1 : 64 bpm Height: 6'2" Weight: 230 lbs 01/23/2014 Blood Pressure 1: 142/68 Code : 8480-6 BMI: 29.7 Code : 22612-4 Heart Rate 1 : 80 bpm Height: 6'2" Weight: 231 lbs 12/26/2013 Blood Pressure 1: 150/72 Code : 8480-6 BMI: 29.3 Code : 85513-7 Heart Rate 1 : 60 bpm Height: 6'2" Respiratory Rate: 16 bpm Weight: 228 lbs 8 oz 10/24/2013 Blood Pressure 1: 140/84 Code : 8480-6 Heart Rate 1: 60 bpm 10/17/2013 Blood Pressure 1: 166/72 Code : 8480-6 BMI: 28.8 Code : 75539-6 Heart Rate 1 : 68 bpm Height: 6'2" Weight: 224 lbs 07/24/2013 Blood Pressure 1: 112/64 Code : 8480-6 BMI: 29.1 Code : 87242-6 Heart Rate 1 : 80 bpm Height: 6'2" Weight: 227 lbs 04/24/2013 Blood Pressure 1: 130/74 Code : 8480-6 BMI: 28.9 Code : 19273-9 Heart Rate 1 : 76 bpm Height: 6'2" Weight: 225 lbs 6 oz 03/20/2013 Blood Pressure 1: 150/70 Code : 8480-6 BMI: 29.7 Code : 35012-6 Heart Rate 1 : 76 bpm Height: 6'2" Temperature: 37.0 (C) / 98.6 (F) Weight: 231 lbs 01/19/2013 Blood Pressure 1: 150/78 Code : 8480-6 BMI: 30.2 Code : 90658-0 Heart Rate 1 : 84 bpm Height: 6'2" Weight: 235 lbs 12/26/2012 Blood Pressure 1: 142/78 Code : 8480-6 BMI: 29.9 Code : 45309-8 Heart Rate 1 : 84 bpm Height: 6'2" Weight: 233 lbs 12/21/2012 Blood Pressure 1: 142/80 Code : 8480-6 BMI: 29.5 Code : 10024-9 Heart Rate 1 : 80 bpm Height: 6'2" Weight: 230 lbs 11/30/2012 Blood Pressure 1: 146/78 Code : 8480-6 BMI: 29.4 Code : 71872-8 Heart Rate 1 : 80 bpm Height: 6'2" Weight: 229 lbs 05/30/2012 Blood Pressure 1: 150/74 Code : 8480-6 BMI: 29.4 Code : 63616-1 Heart Rate 1 : 76 bpm Height: 6'2" Respiratory Rate: 16 bpm Weight: 229 lbs 04/26/2012 Blood Pressure 1: 124/64 Code : 8480-6 Heart Rate 1: 90 bpm SpO2: 98% Temperature: 36.7 (C) / 98.1 (F) Weight: 04/14/2012 Blood Pressure 1: 150/88 Code : 8480-6 Blood Pressure 2: 150/90 Code: 8480-6 BMI: 29.4 Code: 43163-6 Heart Rate 1: 72 bpm Height: 6'2" [...] Code : 8480-6 BMI: 28.9 Code : 03302-8 Heart Rate 1 : 64 bpm Height: 6'2" Weight: 225 lbs 08/05/2011 Blood Pressure 1: 142/72 Code : 8480-6 BMI: 29.3 Code : 11849-4 Heart Rate 1 : 80 bpm Height: 6'2" Weight: 228 lbs 07/01/2011 Blood Pressure 1: 136/70 Code : 8480-6 BMI: 29.2 Code : 72518-9 Heart Rate 1 : 68 bpm Height: 6'2" Respiratory Rate: 16 bpm Weight: 227 lbs 8 oz Functional Status No Functional Status data History of Present Illness Symptom Name Status Result Effective Date Notes hypothyroid Location at the level of the [...] doing physical therapy for parkinson's disease at [facility] diabetes mellitus Alleviating Factors insulin 01/19/2013 [...] data Encounters Encounter Performer Location Codes Date ( EST. PATIENT, LEVEL IV Diagnosis: Atrophy of thyroid (acquired)[ICD10: E03.4] Diagnosis: Type 2 diabetes mellitus with hyperglycemia[ICD10: E11.65] Diagnosis: Essential (primary) hypertension[ICD10: I10] Diagnosis: Parkinson's disease[ICD10: G20] Yoli Medley MD, [facility] CPT- 4: 71560 09/16/2017 [id number]) 44478 EST. PATIENT, LEVEL IV Diagnosis: Essential (primary) hypertension[ICD10: I10] Diagnosis: Type 2 diabetes mellitus with hyperglycemia[ICD10: E11.65] Diagnosis: Atrophy of thyroid (acquired)[ICD10: E03.4] Yoli Medley MD, [facility] CPT-4: 72112 07/13/2017 [id number]) 03916 EST. PATIENT, LEVEL IV Diagnosis: Essential (primary) hypertension[ICD10: I10] Diagnosis: Localized edema[ICD10: R60.0] Diagnosis: Atrophy of thyroid (acquired)[ICD10: E03.4] Diagnosis: Type 2 diabetes mellitus without complications[ICD10: E11.9] Yoli Medley MD, [facility] CPT-4: 05137 05/13/2017 [id number] EST. PATIENT, LEVEL III Diagnosis: Rash and other nonspecific skin eruption[ICD10: R21] Bonita Medley MD, [facility] CPT-4: 64024 04/28/2017 05898 EST. PATIENT, LEVEL IV Diagnosis: Essential (primary) hypertension[ICD10: I10] Diagnosis: Atrophy of thyroid (acquired)[ICD10: E03.4] Diagnosis: Type 2 diabetes mellitus without complications[ICD10: E11.9] Bonita Medley MD , [facility] CPT-4: 35879 04/15/2017 ([id number]) 76717 EST. PATIENT, LEVEL IV Diagnosis: Type 2 diabetes mellitus with hyperglycemia[ICD10: E11.65] Diagnosis: Essential (primary) hypertension[ICD10: I10] Diagnosis: Hypothyroidism, unspecified[ICD10: E03.9] Ginny Medley MD, [facility] CPT-4: 19533 02/04/2017 ([id number]) 12444 EST. PATIENT, LEVEL III Diagnosis: Essential (primary) hypertension[ICD10: I10] Diagnosis: Hypothyroidism, unspecified[ICD10: E03.9] Ginny Medley MD, [facility] CPT-4: 56225 10/08/2016 ([id number]) 75595 EST. PATIENT, LEVEL III Diagnosis: Allergic rhinitis due to pollen[ICD10: J30.1] Diagnosis: Hypothyroidism, unspecified[ICD10: E03.9] Ginny Medley MD, [facility] CPT-4: 69250 09/10/2016 ([id number]) 38611 EST. 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 PATIENT, LEVEL IV Diagnosis: Abdominal distension (gaseous)[ICD10: R14.0] Diagnosis: Cough[ICD10: R05] Diagnosis: Acute bronchitis, unspecified[ICD10: J20.9] Diagnosis: Essential (primary) hypertension[ICD10: I10] Ginny Medley MD, [facility] CPT-4: 07294 08/06/2016 ([id number]) 36746 EST. PATIENT, LEVEL III Diagnosis: Cough[ICD10: R05] Diagnosis: Acute upper respiratory infection, unspecified[ICD10: J06.9] Ginny Medley MD, [facility] CPT-4: 57432 07/30/2016 ([id number]) 03349 EST. PATIENT, LEVEL IV Diagnosis: Type 2 diabetes mellitus with hyperglycemia[ICD10: E11.65] Diagnosis: Essential (primary) hypertension[ICD10: I10] Diagnosis: Parkinson's disease[ICD10: G20] Diagnosis: Localized edema[ICD10: R60.0] Ginny Medley MD, [facility] CPT-4: 44932 06/22/2016 ([id number]) 48374 EST. PATIENT, LEVEL IV Diagnosis: Essential (primary) hypertension[ICD10: I10] Diagnosis: Type 2 diabetes mellitus with hyperglycemia[ICD10: E11.65] Diagnosis: Hypo-osmolality and hyponatremia[ICD10: E87.1] Diagnosis: Hesitancy of micturition[ICD10: R39.11] Ginny Medley MD, [facility] CPT-4: 84478 04/27/2016 ([id number]) 00532 EST. PATIENT, LEVEL III Diagnosis: Essential (primary) hypertension[ICD10: I10] Diagnosis: Localized edema[ICD10: R60.0] Ginny Medley MD, [facility] CPT-4: 65039 03/23/2016 ([id number]) 78379 EST. PATIENT, LEVEL IV Diagnosis: Low back pain[ICD10: M54.5] Diagnosis: Hypo-osmolality and hyponatremia[ICD10: E87.1] Diagnosis: Essential (primary) hypertension[ICD10: I10] Diagnosis: Localized edema[ICD10: R60.0] Diagnosis: Type 2 diabetes mellitus with hyperglycemia[ICD10: E11.65] Ginny Medley MD, [facility] CPT-4: 76760 01/20/2016 ([id number]) 92747 EST. PATIENT, LEVEL III Diagnosis: Type 2 diabetes mellitus with hyperglycemia[ICD10: E11.65] Diagnosis: Essential (primary) hypertension[ICD10: I10] Diagnosis: Hypo-osmolality and hyponatremia[ICD10: E87.1] Ginny Medley MD, [facility] CPT-4: 40699 12/16/2015 ([id number]) 65640 EST. PATIENT, LEVEL III Diagnosis: Essential (primary) hypertension[ICD10: I10] Diagnosis: Hypo-osmolality and hyponatremia[ICD10: E87.1] Ginny Medley MD, [facility] CPT-4: 74098 12/09/2015 ([id number]) 46150 EST. PATIENT, LEVEL IV Diagnosis: Essential (primary) hypertension[ICD10: I10] Diagnosis: Type 2 diabetes mellitus with hyperglycemia[ICD10: E11.65] Diagnosis: Parkinson's disease[ICD10: G20] Ginny Medley MD, [facility] CPT-4: 53778 11/25/2015 38138 EST. PATIENT, LEVEL III Diagnosis: Localized edema[ICD10: R60.0] Diagnosis: Essential (primary) hypertension[ICD10: I10] Bonita Medley MD, [facility] CPT-4: 06127 09/02/2015 ([id number]) 52832 EST. PATIENT, LEVEL III Diagnosis: Localized edema[ICD10: R60.0] Ginny Medley MD, [facility] CPT-4: 28498 08/05/2015 ([id number]) 21822 EST. PATIENT, LEVEL III Diagnosis: Localized edema[ICD10: R60.0] Diagnosis: Unspecified open wound, right ankle, initial encounter[ICD10: S91.001A] Ginny Medley MD, [facility] CPT-4: 57094 ([id number]) 05606 EST. PATIENT, LEVEL IV Diagnosis: Essential (primary) hypertension[ICD10: I10] Diagnosis: Localized edema[ICD10: R60.0] Diagnosis: Low back pain[ICD10: M54.5] Diagnosis: Type 2 diabetes mellitus with hyperglycemia[ICD10: E11.65] Ginny Medley MD [facility] CPT-4: 27284 06/03/2015 ([id number]) Miscellaneous no charge Diagnosis: Encounter for other specified aftercare[ICD10: Z51.89] Yoli Medley MD [facility] CPT-4: 22977 03/20/2015 00610 EST. PATIENT, LEVEL IV Diagnosis: Cutaneous abscess of chest wall[ICD10: L02.213] Yoli Medley MD [facility] CPT-4: 28236 03/19/2015 ([id number]) 93424 EST. PATIENT, LEVEL III Diagnosis: Edema, unspecified[ICD10: R60.9] Yoli Medley MD [facility] CPT-4: 33384 03/04/2015 82598 EST. PATIENT, LEVEL III Diagnosis: Edema, unspecified[ICD10: R60.9] Diagnosis: Unspecified open wound, right ankle, initial encounter[ICD10: S91.001A] Yoli Medley MD [facility] CPT-4: 35870 07/2014 ([id number]) 22925 EST. PATIENT, LEVEL III Diagnosis: Edema, unspecified[ICD10: R60.9] Yoli Medley MD [facility] CPT-4: 44652 02/11/2015 ([id number]) 21328 EST. PATIENT, LEVEL IV Diagnosis: Type 2 diabetes mellitus with hyperglycemia[ICD10: E11.65] Diagnosis: Essential (primary) hypertension[ICD10: I10] Diagnosis: Edema, unspecified[ICD10: R60.9] Yoli Medley MD [facility] CPT-4: 87752 01/28/2015 ([id number]) 88510 EST. PATIENT, LEVEL IV Diagnosis: DIABETES TYPE II[ICD9: 250.00] Diagnosis: ESSENTIAL HYPERTENSION[ICD9: 401.9] Diagnosis: Parkinsons disease[ICD9: 332.0] Yoli Medley MD, [facility] CPT- 4: 05125 10/01/2014 ([id number]) 73225 EST. PATIENT, LEVEL IV Diagnosis: ESSENTIAL HYPERTENSION[ICD9: 401.9] Diagnosis: DIABETES TYPE II[ICD9: 250.00] Diagnosis: Parkinsons disease[ICD9: 332.0] Yoli Medley MD [facility] CPT- 4: 65263 05/30/2014 [id number]) 39819 EST. PATIENT, LEVEL IV Diagnosis: DIABETES TYPE II[ICD9: 250.00] Diagnosis: ESSENTIAL HYPERTENSION[ICD9: 401.9] Diagnosis: Back pain[ICD9: 724.5] Yoli Medley MD [facility] CPT-4: 82733 02/28/2014 ([id number]) 63411 EST. PATIENT, LEVEL III Diagnosis: ESOPHAGEAL REFLUX[ICD9: 530.81] Diagnosis: Esophageal ulcer[ICD9: 530.20] Yoli Medley MD [facility] CPT- 4: 13244 01/23/2014 ([id number]) 18053 EST. PATIENT, LEVEL IV Diagnosis: ESOPHAGEAL REFLUX[ICD9: 530.81] Diagnosis: ESSENTIAL HYPERTENSION[ICD9: 401.9] Yoli Medley MD [facility] CPT-4: 42078 12/26/2013 ([id number]) 49492 EST. PATIENT, LEVEL IV Diagnosis: Diabetes type 2, uncontrolled[ICD9: 250.02] Diagnosis: ESSENTIAL HYPERTENSION[ICD9: 401.9] Diagnosis: Back pain[ICD9: 724.5] Diagnosis: ELEVATED PSA[ICD9: 790.93] Yoli Medley MD [facility] CPT- 4: 27765 10/17/2013 ([id number]) 10906 EST. PATIENT, LEVEL IV Diagnosis: DIABETES TYPE II[SNOMED: 433108184] Diagnosis: ESSENTIAL HYPERTENSION[SNOMED: 86349792] Diagnosis: Sleep apnea[ICD9: 780.57] Yoli Medley MD [facility] CPT-4: 61775 07/24/2013 ([id number]) 12291 EST. PATIENT, LEVEL IV Diagnosis: DIABETES TYPE II[SNOMED: 093384788] Diagnosis: ESSENTIAL HYPERTENSION[SNOMED: 99495701] Diagnosis: HYPERLIPIDEMIA[ICD9: 272.4] Yoli Medley MD [facility] CPT- 4: 73570 04/24/2013 ([id number]) 60836 EST. PATIENT, LEVEL III Diagnosis: DIABETES TYPE II[SNOMED: 706973455] Yoli Medley MD [facility] CPT-4: 27640 03/20/2013 ([id number]) 03296 EST. PATIENT, LEVEL III Diagnosis: DM W/O COMPLICATION TYPE II, UNCONTROLLED[SNOMED: 14805341] Yoli Medley MD [facility] CPT-4: 44792 01/19/2013 ([id number]) 73153 EST. PATIENT, LEVEL III Diagnosis: DM W/O COMPLICATION TYPE II, UNCONTROLLED[SNOMED: 74493531] Yoli Medley MD [facility] CPT-4: 76448 12/21/2012 ([id number]) 57080 EST. PATIENT, LEVEL IV Diagnosis: DM W/O COMPLICATION TYPE II, UNCONTROLLED[SNOMED: 78260010] Diagnosis: Parkinsons disease[ICD9: 332.0] Diagnosis: Back pain[ICD9: 724.5] Diagnosis: Gait instability[ICD9: 781.2] Yoli Medley MD [facility] CPT- 4: 71987 11/30/2012 ([id number]) 67504 EST. PATIENT, LEVEL IV Diagnosis: ESSENTIAL HYPERTENSION[SNOMED: 70864515] Diagnosis: Abdominal pain[ICD9: 789.00] Diagnosis: DIABETES TYPE II[SNOMED: 096519702] Yoli Medley MD, [facility] CPT-4: 77278 05/30/2012 ([id number]) 44254 EST. PATIENT, LEVEL III Diagnosis: Gastroenteritis[ICD9: 558.9] Ginny Medley MD, [facility] CPT-4: 91554 04/26/2012 ([id number]) 05665 EST. PATIENT, LEVEL IV Diagnosis: ESSENTIAL HYPERTENSION[SNOMED: 07635902] Diagnosis: DIABETES TYPE II[SNOMED: 346475332] Diagnosis: Claw toe[ICD9: 735.5] Yoli Medley MD, [facility] CPT-4: 76845 04/14/2012 ([id number]) 78273 EST. PATIENT, LEVEL III Diagnosis: Rash[ICD9: 782.1] Diagnosis: DERMATOPHYTOSIS OF FOOT[ICD9: 110.4] Ginny Medley MD, [facility] CPT-4: 55663 02/22/2012 ([id number]) 69216 EST. PATIENT, LEVEL IV Diagnosis: DM W/O COMPLICATION TYPE II, UNCONTROLLED[SNOMED: 85044560] Diagnosis: ESSENTIAL HYPERTENSION[SNOMED: 40172232] Diagnosis: Constipation - functional[ICD9: 564.09] Diagnosis: Encounter for long-term (current) use of other high-risk medications[ ICD9: V58.69] Yoli Medley MD, [facility] CPT-4: 00032 01/13/2012 ([id number]) 55204 EST. PATIENT, LEVEL IV Diagnosis: ESSENTIAL HYPERTENSION[SNOMED: 93074450] Diagnosis: DIABETES TYPE II[SNOMED: 912791234] [facility] CPT-4: 59399 09/02/2011 33902 EST. PATIENT, LEVEL IV Diagnosis: LUMBAGO[ICD9: 724.2] Diagnosis: Sacroiliitis[ICD9: 720.2] Yoli Medley MD, [facility] CPT-4: 94361 08/05/2011 ([id number]) 07987 EST. PATIENT, LEVEL IV Diagnosis: ESSENTIAL HYPERTENSION[SNOMED: 70629069] Diagnosis: DIABETES TYPE II[SNOMED: 457447958] Diagnosis: Breast mass in male[ICD9: 611.72] Diagnosis: Chronic hyponatremia[ICD9: 276.1] Yoli Medley MD, [facility] CPT-4: 57516 07/01/2011 Plan of Care Planned Activity Notes Codes Status Date Appointment: Bonita Villa WPtel: [address] [place], [place] [phone] [facility] - Annual Wellness Visit 10/18/2017 [...] treatment. 09/16/2017 Appointment: [facility] [phone] [facility] (15 min) Moderate 09/16/2017 Patient Education: [...] control. 07/13/2017 Appointment: [facility] Med[facility] [phone] [facility] (15 min) Moderate 07/13/2017 Patient Education: [...] 05/13/2017 Appointment: Yoli Medley WPtel: [phone] [facility] (15 min) Moderate 05/13/2017 Patient Education: Patient Medication Summary Completed 05/13/2017 Visit Plan: Rash - The patient was instructed to use the ointment as per RX. The patient is to call for any change in symptoms, increase in size of the lesion, increase in pain, worsening redness, warmth, discharge. 04/28/2017 Appointment: Bonita Villa WPtel: [phone] [facility] (15 min) Moderate 04/28/2017 Patient Education: Patient Medication Summary Completed 04/28/2017 Appointment: Bonita Villa WPtel: [phone] [facility] (30 min) Complex 04/16/2017 Visit Plan: Hypertension [...] control. 04/15/2017 Appointment: Bonita Villa WPtel: [phone] [facility] (30 min) Complex 04/15/2017 Patient Education: Patient [...] of control. 02/04/2017 Appointment: Ginny Pearl WPtel: [facility] [place] [place] [address] (30 min) Complex 02/04/2017 Patient Education: Patient Medication Summary Completed 02/04/2017 Patient Education: Obesity Completed 02/04/2017 Patient Education: Patient Medication Summary Completed 02/01/2017 Appointment: Ginny Pearl WPtel: [facility] [phone] (30 min) Complex 01/12/2017 Appointment: Ginny Pearl WPtel: [facility] [place] [phone] (30 min) Complex 01/07/2017 Visit Plan: [...] care surrogate. 10/12/2016 Appointment: Bonita Villa WPtel: [facility] [phone] [place] [address] - Annual Wellness Visit 10/12/2016 Patient Education: [...] 3 months. 10/08/2016 Appointment: Ginny Pearl WPtel: [facility] [phone] (30 min) Complex 10/08/2016 Patient Education: Patient Medication Summary Completed 10/08/2016 Patient Education: Hypertension Completed 10/08/2016 Visit Plan: Allergies-continue daily anti histamine-call if symptoms do not improve or if any worse S/P total thyroidectomy-now on levothyroxine-repeat labs in 1 month 09/10/2016 Appointment: Ginny Pearl WPtel: [phone] [phone] (30 min) Complex 09/10/2016 Patient Education: Patient [...] [place] to do total thyroidectomy on Wednesday Glkrdcbxrz-mpsyh-jnbgpk-due to thyroid nodules-will monitor symptoms for now [...] [place] to do total thyroidectomy on Wednesday Ewnfwodrkd-dkuqp-hunibt-due to thyroid nodules-will monitor symptoms for now 08/24/2016 Appointment: Ginny Pearl WPtel: [address] [place], [place] [phone] [address] (30 min) Complex 08/24/2016 Patient Education: Patient Medication Summary Completed 08/24/2016 Visit Plan: Abdominal wvqlslng-ipbrveyqzmed-AUU today Bronchitis - acute case of bronchitis [...] at home 08/06/2016 Appointment: Ginny Pearl WPtel: [address] [place], [place] [phone] (10 min) Simple 08/06/2016 Patient Education: Patient Medication Summary Completed 08/06/2016 Visit Plan: URI - Pt advised to increase fluids, vitamin C. Discussed natural and expected course of this diagnosis and need to alert me if symptoms do not follow expected course, or if any worse. RX sent to patient' s pharmacy. 07/30/2016 Appointment: Ginny Pearl WPtel: [phone] [phone] (15 min) Moderate 07/30/2016 Patient Education: Patient [...] symptoms worsen. 06/22/2016 Appointment: Ginny Pearl WPtel: [phone] [phone] (30 min) Complex 06/22/2016 Patient Education: Patient [...] negative 04/27/2016 Appointment: Ginny Pearl WPtel: [phone] [phone] (30 min) Complex 04/27/2016 Patient Education: Patient [...] peripheral edema. 03/23/2016 Appointment: Ginny Pearl WPtel: [facility] [place] [phone] (30 min) Complex 03/23/2016 Patient Education: [...] office. Refer for PT at [facility]- Low back pain, generalized weakness, Parkinsons Low vbiwln-arscyna-ux need for increase sodium intake Hypertension - [...] A1C 01/20/2016 Appointment: Ginny Pearl WPtel: [address] [phone] [place] [address] (30 min) Complex 01/20/2016 Patient Education: Patient Medication Summary Completed 01/20/2016 Patient Education: Obesity Completed 01/20/2016 Care Plan: Comp Metabolic Pending 01/20/2016 Care Plan: Cbc With Differential Pending 01/20/2016 Care Plan: %Hba1C LOINC : 10855-2 Pending 01/20/2016 Visit Plan: Diabetes Mellitus - [...] labs today 12/09/2015 Appointment: Ginny Pearl WPtel: [facility] [place] [place] [phone] [place] [address] (30 min) Complex 12/09/2015 Patient Education: Patient [...] symptoms worsen. 11/25/2015 Appointment: Ginny Pearl WPtel: [address] [place] [phone] (30 min) Complex 11/25/2015 Patient Education: Patient [...] 03/26/2015 Care Plan: Referral Order SNOMED-CT : [id number] Ordered 03/26/2015 Patient Education: Patient Medication Summary [...] 02/20/2015 Care Plan: Referral Order SNOMED-CT : [id number] Ordered 02/20/2015 Visit Plan: Hypertension - uncontrolled [...] SPIRONOLACTONE 02/11/2015 Appointment: Yoli Medley WPtel: [phone] [facility] (15 min) Moderate 02/11/2015 Patient Education: [...] pressure. 01/28/2015 Appointment: Yoli Medley WPtel: [phone] [facility] (15 min) Moderate 01/28/2015 Patient Education: [...] worsen. 10/01/2014 Appointment: Yoli Medley WPtel: [phone] [facility] Follow up 10/01/2014 Patient Education: Patient Medication [...] symptoms worsen. 05/30/2014 Appointment: Yoli Medley WPtel: [phone] [facility] Follow up 05/30/2014 Patient Education: Patient [...] January 29. 01/23/2014 Appointment: Yoli Medley WPtel: [facility] [place] [facility] [place] Follow up 01/23/2014 Patient Education: [...] at home. 12/26/2013 Appointment: Yoli Medley WPtel: [phone] [facility] Follow up 12/26/2013 Patient Education: Patient Medication Summary Completed 12/26/2013 Patient Education: Hypertension Completed 12/26/2013 Visit Plan: Wound Instructions - Pt was instruced to keep the wound clean, wash with antibacterial soap, use triple antibiotic ointment, call if redness, pustular drainage, or any other acute conerns. 10/24/2013 Appointment: Ginny Pearl WPtel: [phone] [phone] Surgical Procedure 10/24/2013 Patient Education: Patient Medication [...] the lesions. 10/17/2013 Appointment: Yoli Medley WPtel: [phone] [facility] Follow up 10/17/2013 Patient Education: Patient [...] like to have his Oxygen company - [employer] - help with arranging oxygen when he is in [facility]. 07/24/2013 Appointment: Yoli Medley WPtel: [phone] [facility] Follow up 07/24/2013 Patient Education: Patient Medication Summary Completed 07/24/2013 Patient Education: Hypertension Completed 07/24/2013 Appointment: Ginny Pearl WPtel: [phone] [phone] [place] Lab Draw 05/05/2013 Patient Education: Patient Medication Summary Completed 05/05/2013 Patient Education: Hypertension Completed 05/05/2013 Appointment: Yoli Medley WPtel: [phone] [facility] [place] Follow up 05/01/2013 Visit Plan: [...] DAILY. 01/19/2013 Appointment: Yoli Medley WPtel: [phone] [facility] Follow up 01/19/2013 Patient Education: Patient Medication Summary Completed 01/19/2013 Visit Plan: RA-jjxswnps-swmlalfmvku today in the office- wound Instructions - Pt was instruced to keep the wound clean, wash with antibacterial soap, use triple antibiotic ointment, call if redness, pustular drainage, or any other acute conerns. 12/26/2012 Appointment: Ginny Pearl WPtel: [phone] [phone] [place] Other 12/26/2012 Patient Education: Patient Medication [...] glucose. 12/21/2012 Appointment: Yoli Medley WPtel: [phone] [facility] Follow up 12/21/2012 Patient Education: Patient Medication Summary Completed 12/21/2012 Visit Plan: Parkinsons disease - rx for sinemet 25/100mg 1/ 2 pill in morning and 1/2 pill in evening, pt to let us know if the symptoms improve. Referral to Miguel at [facility] for gait instability. Diabetes Mellitus - [...] and gait instability - recommended christina at [facility] - continue with back brace as it offers support for the patient. 11/30/2012 Appointment: Yoli Medley WPtel: [phone] [facility] Follow up 11/30/2012 Patient Education: Patient [...] previously. 05/30/2012 Appointment: Yoli Medley WPtel: [phone] [facility] 6 [facility] f/u Follow up 05/30/2012 [...] to seek support for his arches via garment liner eval and perhaps arch supports to be custom made or custom fitted. 04/14/2012 Appointment: Yoli Medley WPtel: [phone] [facility] Follow up 04/14/2012 Patient Education: Patient Medication Summary Completed 04/14/2012 Patient Education: Hypertension Completed 04/14/2012 Visit Plan: Rash- Discussed natural and expected course of this diagnosis and need to alert me if symtpoms do not follow expected course, or if any worse. RX sent to patient's pharmacy. 02/22/2012 Appointment: Ginny Pearl WPtel: [phone] [phone] 02/22/2012 Patient Education: Patient Medication Summary [...] regimen. 01/13/2012 Appointment: Yoli Medley WPtel: [phone] [facility] [facility] Patient Preventative visit 01/13/2012 Patient Education: Patient [...] less controlled. 09/02/2011 Appointment: Yoli Medley WPtel: [address] [place] [place], [place] [id number] Other 09/02/2011 Patient Education: Patient Medication Summary Completed 09/02/2011 Patient Education: High Blood Pressure: Essential Hypertension Completed 2011 Appointment: Ginny Pearl WPtel: [address] [place], [place] [id number] Lab Draw 08/06/2011 Patient Education: [...] metformin bid. 08/05/2011 Appointment: Yoli Medley WPtel: [facility] [place] [facility] [place] Other 08/05/2011 Patient Education: Patient [...] 07/01/2011 Appointment: Yoli Medley WPtel: [phone] [facility] Other 07/01/2011 Patient Education: Patient Medication Summary Completed 07/01/2011 Patient Education: High Blood Pressure: Essential Hypertension Completed 2011 Appointment: [facility] [address] [facility] [facility] 06/25/2011 Patient Education: Patient Medication Summary Completed 06/25/2011 Patient Education: High Blood Pressure: Essential Hypertension Completed 2011 Referral: [facility] [place] [facility] Referral Initiated Referral: Dangelo Ford Referral [...] has ability to increase blood glucose. . Hypertension - well controlled - continue [...] Ford to do total thyroidectomy on Wednesday Tgdikwtaop-szkou-bvvzzf-due to thyroid nodules-will monitor symptoms for now [...] Ford to do total thyroidectomy on Wednesday Bivfcsihun-thyzd-uylzzs-due to thyroid nodules-will monitor symptoms for now . Hypertension - well controlled - continue with current medications, continue with no added salt diet. Pt has been encouraged to exercise daily. The pt has been advised to call the office if there are any acute concerns about change in blood pressure readings at home. Jrpnkmqipbfxko-cywkmgtb-fwbjmju medication increased by Dr Ford and wants [...] based on previous levels of control. . Wound Instructions - Pt was instruced [...] alert this office if symptoms worsen. . Abscess/Cellulitis- left anterior chest -incision and [...] Lab work- CBC, CMP, BNP . Abdominal jakeyaha-mlzbsosnhvao-ICR today Bronchitis - acute case of bronchitis [...] in pain, worsening redness, warmth, discharge. . Chronic hyponatremia - Increase fluids - [...] CHECK LABS STOP EXTRA SODIUM REFER TO [facility] DX [place], BACK PAIN, WEAKNESS . Low back pain- the patient was instructed in appropriate posture, need for weight loss to alleviate abdominal obesity that is worsening the patient's back pain. The patient is to call the office if the pain is worsening or does not improve. Kenalog injection today in the office. Refer for PT at [facility] Low back pain, generalized weakness, Parkinsons Low yvzgpz-dztwwif-hn need for increase sodium intake Hypertension - [...] reduce peripheral edema. DM-check Hgb A1C . Hypertension - well controlled - continue [...] based on previous levels of control. . HTN-not optimally controlled-recommend patient start on [...] like to have his Oxygen company - [employer] patient - help with arranging oxygen when he is in [facility]. . Parkinsons disease - rx for sinemet 25/100mg 1/2 pill in morning and 1/2 pill in evening, pt to let us know if the symptoms improve. Referral to Miguel at [facility] for gait instability. Diabetes Mellitus - [...] and gait instability - recommended eval at [facility] - continue with back brace as it [...] based on previous levels of control. . WB-pybrgpnc-zezgwlhuviz today in the office-wound Instructions - Pt [...] to seek support for his arches via garment liner eval and perhaps arch supports to be [...]
--- NOTE | 2018-07-25 09:07 | NUR ---
FAMILY DECLINED TO HAVE HIM TAKE VALIUM. DUE TO CONCERN MAY MAKE HIM SLEEPY. WARM BLANKET. GIVEN.
[2018-07-25] MEDS ORDERED: ONDA4TAB11 PO (09:22)
[2018-07-25] MEDS ORDERED: DIAZ2TAB PO (09:22)
--- NOTE | 2018-07-25 09:25 | NUR ---
ATTEMPTED TO GET PATIENT UP AND WALK WHILE STANDING BECAME DIZZY WILL GIVE VALIUM NOW PLANNED.
[2018-07-25] MEDS ORDERED: DIAZEPAM 2 MG (VALIUM) TAB PO STA (09:28)
--- OUTSIDE RECORDS SUMMARY | 2018-07-25 09:38 | XMS REPORT | Continuity of Care Document ---
Author Organization Unknown Address Unknown Allergies Active Description Code Type Severity Reaction Onset Reported/Identified Relationship to Patient Clinical Status Yes Penicillins [id number] Drug Allergy Moderate HIVES 11/26/2015 Yes piroxicam [id number] Drug Allergy Moderate HIVES 11/26/2015 Yes sulfamethoxazole [id number] Drug Allergy Mild N/V 11/26/2015 Yes trimethoprim [id number] Drug Allergy Mild N/V 11/26/2015 Yes levofloxacin [id number] Drug Allergy Unknown N/A 11/26/2015 Medications There is no data. 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 2010 Ot 780.79 OTH MALAISE FATIGUE 2010 Ot V58.69 OTH MED,LT, CURRENT USE 11/09/2011 Ot 427.81 SINOATRIAL NODE DYSFUNCT 11/09/2011 Ot 786.09 RESPIRATORY ABNORM NEC 11/09/2011 Ot V45.01 CARDIAC PACEMAKER IN SITU 07/20/2012 Ot 575.11 CHRONIC CHOLECYSTITIS 12/13/2012 BRETT MINER, KAELYN Vázquez Ot 530.19 OTHER ESOPHAGITIS 12/13/2012 BRETT MINER, KAELYN Vázquez Ot 535.40 OTH SPECIFIED GASTRITIS,W/O MENTION OF H 04/03/2013 KAELYN WEST MD Ot 535.50 UNSP GASTRITIS GASTRODUODENITIS W/O ME [...] 593.9 RENAL URETERAL DIS NOS 07/09/2013 SHAWN WILLSC, ALI FACP CCDS Ot 715.90 OSTEOARTHROS NOS-UNSPEC 07/09/2013 SHAWN MINER FACC, ALI FACP CCDS Ot V45.01 CARDIAC PACEMAKER IN SITU 12/05/2013 SANIA KUMAR MD Ot 038.9 SEPTICEMIA NOS 12/05/2013 SANIA KUMAR MD Ot 250.00 DIAB CANDICE WO COMPL, TYPE II OR UNSPEC TY 12/05/2013 SANIA KUMAR MD Ot 332.0 PARALYSIS AGITANS 12/05/2013 SANIA KUMAR MD Ot 401.9 HYPERTENSION NOS 12/05/2013 SNAIA KUMAR MD Ot 486 PNEUMONIA, ORGANISM NOS 12/05/2013 SANIA KUMAR MD Ot 564.00 UNSPEC CONSTIPATION 12/05/2013 SANIA KUMAR MD Ot 789.00 ABDOMINAL PAIN, UNSPECIFIED SITE 12/05/2013 SANIA KUMAR MD Ot 995.91 SEPSIS 12/05/2013 SANIA KUMAR MD Ot V45.01 CARDIAC PACEMAKER IN SITU 12/05/2013 SANIA KUMAR MD Ot V58.67 LONG-TERM (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 OF INSULIN 01/11/2014 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Ot 327.23 OBSTRUCTIVE SLEEP APNEA (ADULT) (PEDIATR [...] 09/04/2014 Ot V45.01 09/04/2014 BAIMA, TED L CLAY PREPARATION SUPERVISOR Ot 250.00 09/04/2014 BAIMA, TED L CLAY PREPARATION SUPERVISOR Ot 401.9 09/04/2014 BAIMA, TED L CLAY PREPARATION SUPERVISOR Ot 427.69 09/04/2014 BAIMA, TED L CLAY PREPARATION SUPERVISOR Ot 427.81 09/04/2014 BAIMA, TED L CLAY PREPARATION SUPERVISOR Ot 447.9 09/04/2014 BAIMA, TED L CLAY PREPARATION SUPERVISOR Ot 593.9 09/04/2014 BAIMA, TED L CLAY PREPARATION SUPERVISOR Ot 729.81 09/04/2014 BAIMA, TED L CLAY PREPARATION SUPERVISOR Ot V45.01 09/04/2014 BRETT MINER, KAELYN Vázquez [...] 02/27/2015 Ot 715.90 02/27/2015 Ot V45.01 02/27/2015 BAIMA, TED L CLAY PREPARATION SUPERVISOR Ot 250.00 02/27/2015 BAIMA, TED L CLAY PREPARATION SUPERVISOR Ot 401.9 02/27/2015 BAIMA, TED L CLAY PREPARATION SUPERVISOR Ot 427.69 02/27/2015 BAIMA, TED L CLAY PREPARATION SUPERVISOR Ot 427.81 02/27/2015 BAIMA, TED L CLAY PREPARATION SUPERVISOR Ot 447.9 02/27/2015 BAIMA, TED L CLAY PREPARATION SUPERVISOR Ot 593.9 02/27/2015 BAIMA, TED L CLAY PREPARATION SUPERVISOR Ot 729.81 02/27/2015 BAITED GERARDO Ot V45.01 02/27/2015 BRETT MINER, KAELYN Vázquez Ot 250.00 02/27/2015 BRETT IMNER, KAELYN M Ot 401.9 02/27/2015 BRETT MINER, KAELYN M Ot 530.3 02/27/2015 BRETT MINER, KAELYN Vázquez Ot V72.84 02/27/2015 ZULY CASIANO BACTERIOLOGIST MEDICAL Ot I87.2 02/27/2015 ZULY CASIANO BACTERIOLOGIST MEDICAL Ot I87.391 02/27/2015 ZULY CASIANO BACTERIOLOGIST MEDICAL Ot L97.211 03/07/2015 ZULY CASIANO BACTERIOLOGIST MEDICAL Ot I87.2 VENOUS INSUFFICIENCY (CHRONIC) (PERIPHER 03/07/2015 ZULY CASIANO BACTERIOLOGIST MEDICAL Ot I87.391 CHRONIC VENOUS HYPERTENSION W OTH COMP O 03/07/2015 ZULY CASIANO BACTERIOLOGIST MEDICAL Ot L97.211 NON-PRS CHRONIC ULCER OF RIGHT CALF LIMI 03/11/2015 ZULY CASIANO BACTERIOLOGIST MEDICAL Ot I87.2 04/03/2015 BRETT MINER, KAELYN Vázquez Ot E11.9 TYPE 2 DIABETES MELLITUS WITHOUT COMPLIC 04/03/2015 BRETT MINER, KAELYN Vázquez Ot L72.3 SEBACEOUS CYST 04/25/2015 BRETT MINER, KAELYN Vázquez Ot L72.3 04/25/2015 BRETT MINER, KAELYN Vázquez Ot Z01.810 04/25/2015 BRETT MINER, KEALYN Vázquez Ot Z11.2 05/27/2015 STACY MINER, SANIA Huang Ot L72.3 06/11/2015 JANICE GONZALES APRN Ot R06.00 DYSPNEA, UNSPECIFIED 06/11/2015 JANICE GONZALES BACTERIOLOGIST MEDICAL Ot R68.83 CHILLS (WITHOUT FEVER) 06/21/2015 STACY MINER, SANIA Huang Ot L72.3 SEBACEOUS CYST 08/06/2015 ZULY CASIANO BACTERIOLOGIST MEDICAL Ot E11.622 TYPE 2 DIABETES MELLITUS WITH OTHER SKIN 08/06/2015 ZULY CASIANO BACTERIOLOGIST MEDICAL Ot I87.311 CHRONIC VENOUS HYPERTENSION W ULCER OF R 08/06/2015 ZULY CASIANO BACTERIOLOGIST MEDICAL Ot L97.211 NON-PRS CHRONIC ULCER OF RIGHT CALF LIMI 09/18/2015 JANICE GONZALES APRN Ot R06.00 DYSPNEA, UNSPECIFIED 09/18/2015 JANICE GONZALES BACTERIOLOGIST MEDICAL Ot R68.83 CHILLS (WITHOUT FEVER) 10/18/2015 JANICE GONZALES BACTERIOLOGIST MEDICAL Ot R06.00 DYSPNEA, UNSPECIFIED 10/18/2015 JANICE GONZALES BACTERIOLOGIST MEDICAL Ot R68.83 CHILLS (WITHOUT FEVER) 11/26/2015 Ot [...] Ot I65.23 OCCLUSION AND STENOSIS OF BILATERAL [place] 11/27/2015 SANIA KUMAR MD Ot R41.0 DISORIENTATION, UNSPECIFIED 11/27/2015 SANIA KUMAR MD Ot R53.1 WEAKNESS 11/27/2015 ASNIA KUMAR MD Ot T67.5XXA HEAT EXHAUSTION, UNSPECIFIED, INITIAL EN 11/27/2015 SANIA KUMAR MD Ot E11.9 TYPE 2 DIABETES MELLITUS WITHOUT COMPLIC 11/27/2015 SANIA KUMAR MD Ot E87.1 HYPO-OSMOLALITY AND HYPONATREMIA 11/27/2015 SANIA KUMAR MD, Ot G20 PARKINSON'S DISEASE 11/27/2015 SANIA KUMAR MD Ot I10 ESSENTIAL (PRIMARY) HYPERTENSION 11/27/2015 STACY MINER, SANIA Huang Ot R41.0 DISORIENTATION, UNSPECIFIED 11/27/2015 SANIA KUMAR [...] PACEMAKER IN SITU 03/24/2016 BAIMA, TED L CLAY PREPARATION SUPERVISOR Ot 250.00 DIAB CANDICE WO COMPL, TYPE II OR UNSPEC TY 03/24/2016 BAIMA, TED L CLAY PREPARATION SUPERVISOR Ot 401.9 HYPERTENSION NOS 03/24/2016 BAIHUMAIRA, TED L CLAY PREPARATION SUPERVISOR Ot 427.69 PREMATURE BEATS NEC 03/24/2016 BAIMA, TED L CLAY PREPARATION SUPERVISOR Ot 427.81 SINOATRIAL NODE DYSFUNCT 03/24/2016 BAIMA, TED L CLAY PREPARATION SUPERVISOR Ot 447.9 ARTERIAL DISEASE NOS 03/24/2016 BAIMA, TED L CLAY PREPARATION SUPERVISOR Ot 593.9 RENAL URETERAL DIS NOS 03/24/2016 BAIHUMAIRA, TED L CLAY PREPARATION SUPERVISOR Ot 729.81 SWELLING OF LIMB 03/24/2016 BAIHUMAIRA TED L CLAY PREPARATION SUPERVISOR Ot V45.01 CARDIAC PACEMAKER IN SITU 03/24/2016 [...] Ot R60.0 LOCALIZED EDEMA 04/20/2016 ZULY CASIANO BACTERIOLOGIST MEDICAL Ot I87.2 VENOUS INSUFFICIENCY (CHRONIC) (PERIPHER 08/12/2016 SHAISTA POSADAP Ot E04.1 NONTOXIC SINGLE THYROID NODULE 08/12/2016 SHAISTA POSADAP Ot R94.6 ABNORMAL RESULTS OF [...] PACEMAKER IN SITU 08/13/2016 BAIMA, TED L CLAY PREPARATION SUPERVISOR Ot 250.00 DIAB CANDICE WO COMPL, TYPE II OR UNSPEC TY 08/13/2016 BAIMA, TED L CLAY PREPARATION SUPERVISOR Ot 401.9 HYPERTENSION NOS 08/13/2016 BAIMA, TED L CLAY PREPARATION SUPERVISOR Ot 427.69 PREMATURE BEATS NEC 08/13/2016 BAIMA, TED L CLAY PREPARATION SUPERVISOR Ot 427.81 SINOATRIAL NODE DYSFUNCT 08/13/2016 BAIMA, TED L CLAY PREPARATION SUPERVISOR Ot 447.9 ARTERIAL DISEASE NOS 08/13/2016 BAIMA, TED L CLAY PREPARATION SUPERVISOR Ot 593.9 RENAL URETERAL DIS NOS 08/13/2016 RYANNESERGIO GERARDOHER Lopez CLAY PREPARATION SUPERVISOR Ot 729.81 SWELLING OF LIMB 08/13/2016 TED PÉREZ CLAY PREPARATION SUPERVISOR Ot V45.01 CARDIAC PACEMAKER IN SITU 08/13/2016 BRETT MINER, KAELYN Vázquez Ot 250.00 DIAB CANDICE WO COMPL, TYPE II OR UNSPEC TY 08/13/2016 KAELYN WEST MD Ot 401.9 HYPERTENSION NOS 08/13/2016 BRETT MINER, KAELYN Vázquez Ot 530.3 ESOPHAGEAL STRICTURE 08/13/2016 BRETT MINER, KAELYN Vázquez Ot V72.84 EXAM PRE-OPERATIVE NOS 08/13/2016 ZULY CASIANO BACTERIOLOGIST MEDICAL Ot I87.2 VENOUS INSUFFICIENCY (CHRONIC) (PERIPHER 08/13/2016 KAELYN WEST MD Ot L72.3 SEBACEOUS CYST 08/13/2016 KAELYN WEST MD Ot Z01.810 ENCOUNTER FOR PREPROCEDURAL CARDIOVASCUL 08/13/2016 KAELYN WEST MD Ot Z11.2 ENCOUNTER FOR SCREENING FOR OTHER BACTER 08/13/2016 SANIA KUMAR MD Ot L72.3 SEBACEOUS CYST 08/13/2016 SHAISTA POSADA CLAY PREPARATION SUPERVISOR Ot E04.1 NONTOXIC SINGLE THYROID NODULE 08/13/2016 SHAISTA POSADA CLAY PREPARATION SUPERVISOR Ot R94.6 ABNORMAL RESULTS OF THYROID FUNCTION EL[place] 08/20/2016 KAELYN WEST MD Ot E04.1 NONTOXIC SINGLE THYROID NODULE 08/20/2016 KAELYN WEST MD Ot Z01.818 ENCOUNTER FOR OTHER PREPROCEDURAL EXAMIN 08/20/2016 KAELYN WEST MD Ot Z11.2 ENCOUNTER FOR SCREENING FOR OTHER BACTER 08/21/2016 KAELYN WEST MD Ot E04.1 NONTOXIC SINGLE THYROID NODULE 08/21/2016 KAELYN WEST MD Ot Z01.818 ENCOUNTER FOR OTHER PREPROCEDURAL EXAMIN 08/21/2016 KAELYN WEST MD Ot Z11.2 ENCOUNTER FOR SCREENING FOR OTHER BACTER 08/27/2016 KAELYN WEST MD Ot E04.1 NONTOXIC SINGLE THYROID NODULE 08/27/2016 KAELYN WEST MD Ot E11.9 TYPE 2 DIABETES MELLITUS WITHOUT COMPLIC 08/27/2016 WEST MD, KAELYN M Ot H91.90 UNSPECIFIED HEARING LOSS, UNSPECIFIED EA 08/27/2016 KAELYN WEST MD M Ot I10 ESSENTIAL (PRIMARY) HYPERTENSION 08/27/2016 KAELYN WEST MD Ot I25.10 ATHSCL HEART DISEASE OF [place] CORONARY 08/27/2016 KAELYN WEST MD Ot I48.0 PAROXYSMAL ATRIAL FIBRILLATION 08/27/2016 KAELYN WEST MD Ot 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.4 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 (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 OF INSULIN 08/27/2016 KAELYN WEST MD M Ot Z79.899 OTHER JAIL (CURRENT) DRUG THERAPY 08/27/2016 KAELYN WEST MD M Ot Z95.0 PRESENCE OF CARDIAC PACEMAKER 08/27/2016 KAELYN WEST MD Ot E04.1 NONTOXIC SINGLE THYROID NODULE 08/27/2016 KAELYN WEST MD Ot E11.9 TYPE 2 DIABETES MELLITUS WITHOUT COMPLIC 08/27/2016 KAELYN WEST MD Ot H91.90 UNSPECIFIED HEARING LOSS, UNSPECIFIED EA 08/27/2016 KAELYN WEST MD Ot I10 ESSENTIAL (PRIMARY) HYPERTENSION 08/27/2016 KAELYN WEST MD Ot I25.10 ATHSCL HEART DISEASE OF [place] CORONARY 08/27/2016 KAELYN WEST MD Ot I48.0 PAROXYSMAL ATRIAL FIBRILLATION 08/27/2016 KAELYN WEST MD Ot Z79.4 FARM 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 (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 OF INSULIN 08/27/2016 KAELYN WEST MD Ot Z79.899 OTHER JAIL (CURRENT) DRUG THERAPY 08/27/2016 KAELYN WEST MD M Ot Z95.0 PRESENCE OF CARDIAC PACEMAKER 09/01/2016 KAELYN WEST MD Ot E04.1 NONTOXIC SINGLE THYROID NODULE 09/01/2016 KAELYN WEST MD Ot E11.9 TYPE 2 DIABETES MELLITUS WITHOUT COMPLIC 09/01/2016 KAELYN WEST MD Ot H91.90 UNSPECIFIED HEARING LOSS, UNSPECIFIED EA 09/01/2016 KAELYN WEST MD Ot I10 ESSENTIAL (PRIMARY) HYPERTENSION 09/01/2016 KAELYN WEST MD M Ot I25.10 ATHSCL HEART DISEASE OF [place] CORONARY 09/01/2016 KAELYN WEST MD Ot I48.0 PAROXYSMAL ATRIAL FIBRILLATION 09/01/2016 KAELYN WEST MD Ot Z79.4 FARM 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 (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 OF INSULIN 09/01/2016 KAELYN WEST MD, Ot Z79.899 OTHER FARM 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 (CURRENT) DRUG THERAPY 09/01/2016 KAELYN WEST MD, Ot Z95.0 PRESENCE OF CARDIAC PACEMAKER 09/02/2016 [...] PACEMAKER IN SITU 12/08/2016 BAIMA, TED L CLAY PREPARATION SUPERVISOR Ot 250.00 DIAB CANDICE WO COMPL, TYPE II OR UNSPEC TY 12/08/2016 BAIMA, TED L CLAY PREPARATION SUPERVISOR Ot 401.9 HYPERTENSION NOS 12/08/2016 BAIMA, TED L CLAY PREPARATION SUPERVISOR Ot 427.69 PREMATURE BEATS NEC 12/08/2016 BAIMA, TED L CLAY PREPARATION SUPERVISOR Ot 427.81 SINOATRIAL NODE DYSFUNCT 12/08/2016 BAIMA, TED L CLAY PREPARATION SUPERVISOR Ot 447.9 ARTERIAL DISEASE NOS 12/08/2016 BAIMA, TED L CLAY PREPARATION SUPERVISOR Ot 593.9 RENAL URETERAL DIS NOS 12/08/2016 BAIMA, TED L CLAY PREPARATION SUPERVISOR Ot 729.81 SWELLING OF LIMB 12/08/2016 BAIMA, TED L CLAY PREPARATION SUPERVISOR Ot V45.01 CARDIAC PACEMAKER IN SITU 12/08/2016 KAELYN WEST MD Ot 250.00 DIAB CANDICE WO COMPL, TYPE II OR UNSPEC TY 12/08/2016 BANDAR WEST MDVIER M Ot 401.9 HYPERTENSION NOS 12/08/2016 BRETT MINER, KAELYN Vázquez Ot 530.3 ESOPHAGEAL STRICTURE 12/08/2016 KAELYN WEST MD Ot V72.84 EXAM PRE-OPERATIVE NOS 12/08/2016 STEPHENIE ZULYPadmini Recio APRN Ot I87.2 VENOUS INSUFFICIENCY (CHRONIC) (PERIPHER [...] G47.33 OBSTRUCTIVE SLEEP APNEA (ADULT) (PEDIATR 12/09/2016 STEVIE LYN MD Ot G47.33 OBSTRUCTIVE SLEEP APNEA (ADULT) (PEDIATR 12/15/2016 STEVIE LYN MD Ot G47.33 OBSTRUCTIVE SLEEP APNEA (ADULT) (PEDIATR 04/30/2017 TED PÉREZP Ot I25.10 ATHSCL HEART DISEASE OF [place] CORONARY 05/04/2017 TED PÉREZ CLAY PREPARATION SUPERVISOR Ot I25.10 ATHSCL HEART DISEASE OF [place] CORONARY 05/04/2017 TED PÉREZ CLAY PREPARATION SUPERVISOR Ot I73.9 PERIPHERAL VASCULAR DISEASE, UNSPECIFIED 05/10/2017 TED PÉREZ CLAY PREPARATION SUPERVISOR Ot I25.10 ATHSCL HEART DISEASE OF [place] CORONARY 05/10/2017 TED PÉREZP Ot I73.9 PERIPHERAL VASCULAR DISEASE, UNSPECIFIED 05/25/2017 TED PÉREZ CLAY PREPARATION SUPERVISOR Ot I25.10 ATHSCL HEART DISEASE OF [place] CORONARY 05/25/2017 TED PÉREZ CLAY PREPARATION SUPERVISOR Ot I73.9 PERIPHERAL VASCULAR DISEASE, UNSPECIFIED 06/21/2017 STEVIE BEDOYA MD, Ot 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 06/21/2017 STEVIE BEDOYA MD, Ot E11.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 06/21/2017 STEVIE BEDOYA MD Ot I70.242 ATHSCL [place] ARTERIES OF LEFT LEG W ULC 06/21/2017 STEVIE BEDOYA MD Ot I70.245 ATHSCL [place] ARTERIES OF LEFT LEG W ULC 06/21/2017 STEVIE BEDOYA MD Ot I87.332 CHRONIC VENOUS HTN W ULCER AND INFLAMMAT 06/21/2017 STEVIE BEDOYA MD Ot I89.0 LYMPHEDEMA, NOT ELSEWHERE CLASSIFIED 06/21/2017 STEVIE BEDOYA MD Ot L97.222 NON-PRESSURE CHRONIC ULCER OF LEFT CALF 06/21/2017 STEVIE BEDOYA MD Ot L97.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 06/23/2017 STEVIE BEDOYA MD, Ot 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 06/23/2017 STEVIE BEDOYA MD, Ot E11.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 06/23/2017 STEVIE BEDOYA MD Ot I70.242 ATHSCL [place] ARTERIES OF LEFT LEG W ULC 06/23/2017 STEVIE BEDOYA MD Ot I70.245 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[place] ARTERIES OF LEFT LEG W ULC 06/23/2017 STEVIE BEDOYA MD Ot I87.332 CHRONIC VENOUS HTN W ULCER AND INFLAMMAT 06/23/2017 STEVIE BEDOYA MD Ot I89.0 LYMPHEDEMA, NOT ELSEWHERE CLASSIFIED 06/23/2017 STEVIE BEDOYA MD Ot L97.222 NON-PRESSURE CHRONIC ULCER OF LEFT CALF 06/23/2017 STEVIE BEDOYA MD, Ot L97.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 06/24/2017 STEVIE BEDOYA MD Ot 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 06/24/2017 STEVIE BEDOYA MD, Ot E11.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 06/24/2017 STEVIE BEDOYA MD Ot I70.242 ATHSCL [place] ARTERIES OF LEFT LEG W [facility] 06/24/2017 STEVIE BEDOYA MD Ot I70.245 ATHSCL [place] ARTERIES OF LEFT LEG W [facility] 06/24/2017 STEVIE BEDOYA MD Ot I87.332 CHRONIC VENOUS HTN W ULCER AND INFLAMMAT 06/24/2017 STEVIE BEDOYA MD, Ot I89.0 LYMPHEDEMA, NOT ELSEWHERE CLASSIFIED 06/24/2017 STEVIE BEDOYA MD, Ot L97.221 NON-PRS CHRONIC ULCER OF LEFT CALF LIMIT 06/24/2017 STEVIE BEDOYA MD, Ot L97.521 NON-PRS CHRONIC [...] MELLITUS WITH DIABETIC P 07/09/2017 STEVIE BEDOYA MD, Ot E11.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 07/09/2017 STEVIE BEDOYA MD Ot I70.242 ATHSCL [place] ARTERIES OF LEFT LEG W [facility] 07/09/2017 STEVIE BEDOYA MD Ot I70.245 ATHSCL [place] ARTERIES OF LEFT LEG W [facility] 07/09/2017 STEVIE BEDOYA MD, Ot I87.332 CHRONIC VENOUS [...] 07/14/2017 STEVIE BEDOYA MD Ot I70.242 ATHSCL [place] ARTERIES OF LEFT LEG W [facility] 07/14/2017 STEVIE BEDOYA MD Ot I70.245 ATHSCL [place] ARTERIES OF LEFT LEG W C 07/14/2017 STEVIE BEDOYA MD Ot I87.332 CHRONIC VENOUS HTN W ULCER AND INFLAMMAT 07/14/2017 STEVIE BEDOYA MD, Ot I89.0 LYMPHEDEMA, NOT ELSEWHERE CLASSIFIED 07/14/2017 STEVIE BEDOYA MD Ot L97.221 NON-PRS CHRONIC ULCER OF LEFT CALF LIMIT 07/14/2017 STEVIE BEDOYA MD, Ot L97.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 07/20/2017 STEVIE BEDOYA MD, Ot I87.332 CHRONIC VENOUS HTN W ULCER AND INFLAMMAT 07/20/2017 STEVIE BEDOYA MD, Ot I89.0 LYMPHEDEMA, NOT ELSEWHERE CLASSIFIED 07/20/2017 STEVIE BEDOYA MD, Ot L97.221 NON-PRS CHRONIC ULCER OF LEFT CALF LIMIT 11/07/2017 KHADIJAH LAW DO Ot E11.9 TYPE 2 DIABETES MELLITUS WITHOUT COMPLIC 11/07/2017 KHADIJAH LAW DO Ot F43.10 POST-TRAUMATIC STRESS DISORDER, UNSPECIF 11/07/2017 KHADIJAH LAW DO Ot G20 PARKINSON'S DISEASE 11/07/2017 KHADIJAH LAW DO Ot G47.30 SLEEP APNEA, UNSPECIFIED 11/07/2017 KHADIJAH LAW DO Ot R50.9 FEVER, UNSPECIFIED 11/07/2017 KHADIJAH LAW DO Ot R53.1 WEAKNESS 11/07/2017 KHADIJAH LAW DO Ot R53.81 OTHER MALAISE 11/07/2017 KHADIJAH LAW DO Ot Z79.4 JAIL (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 OF INSULIN 11/07/2017 KHADIJAH LAW DO Ot Z82.49 FAMILY HX OF ISCHEM HEART DIS AND OTH DI 11/07/2017 KHADIJAH LAW DO Ot Z87.19 PERSONAL HISTORY OF OTHER DISEASES OF TH 11/07/2017 KHADIJAH LAW DO Ot Z87.891 PERSONAL HISTORY OF NICOTINE DEPENDENCE 11/07/2017 KHADIJAH LAW DO Ot Z88.0 ALLERGY STATUS TO PENICILLIN 11/07/2017 KHADIJAH LAW DO Ot Z88.1 ALLERGY STATUS TO OTHER ANTIBIOTIC AGENT 11/07/2017 HUGO LAW DOA K Ot Z88.2 ALLERGY STATUS TO SULFONAMIDES STATUS 11/07/2017 THANH HUGO CHEATHAMA K Ot Z88.8 ALLERGY STATUS TO OTH DRUG/MEDS/BIOL SUB 11/07/2017 THANH CHEATHAM KHADIJAH K Ot Z95.0 PRESENCE OF CARDIAC PACEMAKER 11/09/2017 HUGO LAW DOA K Ot E11.9 TYPE 2 DIABETES MELLITUS WITHOUT COMPLIC 11/09/2017 HUGO LAW DOA K Ot F43.10 POST-TRAUMATIC STRESS DISORDER, UNSPECIF 11/09/2017 THANH CHEATHAM KHADIJAH K Ot G20 PARKINSON'S DISEASE 11/09/2017 THANH DO KHADIJAH K Ot G47.30 SLEEP APNEA, UNSPECIFIED 11/09/2017 THANH CHEATHAM KHADIJAH K Ot R50.9 FEVER, UNSPECIFIED 11/09/2017 THANH KHADIJAH K Ot R53.1 WEAKNESS 11/09/2017 THANH CHEATHAM KHADIJAH K Ot R53.81 OTHER MALAISE 11/09/2017 THANH CHEATHAM KHADIJAH K Ot Z79.4 JAIL (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 OF INSULIN 11/09/2017 THANH KHADIJAH K Ot Z82.49 FAMILY HX OF ISCHEM HEART DIS AND OTH DI 11/09/2017 THANH CHEATHAM KHADIJAH K Ot Z87.19 PERSONAL HISTORY OF OTHER DISEASES OF TH 11/09/2017 KHADIJAH LAW DO K Ot Z87.891 PERSONAL HISTORY OF NICOTINE DEPENDENCE 11/09/2017 THANH CHEATHAM KHADIJAH K Ot Z88.0 ALLERGY STATUS TO PENICILLIN 11/09/2017 THANH CHEATHAM KHADIJAH K Ot Z88.1 ALLERGY STATUS TO OTHER ANTIBIOTIC AGENT 11/09/2017 THANH KHADIJAH K Ot Z88.2 ALLERGY STATUS TO SULFONAMIDES STATUS 11/09/2017 THANH DO KHADIJAH K Ot Z88.8 ALLERGY STATUS TO OTH DRUG/MEDS/BIOL SUB 11/09/2017 THANH CHEATHAM KHADIJAH K Ot Z95.0 PRESENCE OF CARDIAC PACEMAKER 04/20/2018 STACY MINER, SANIA Huang Ot G20 PARKINSON'S DISEASE 04/20/2018 STACY MINER, SANIA Huang Ot R53.1 WEAKNESS 04/20/2018 SANIA KUMAR MD, Ot G20 PARKINSON'S DISEASE 04/20/2018 SANIA KUMAR MD, Ot R53.1 WEAKNESS 05/05/2018 STACY MINER, SANIA A Ot G20 PARKINSON'S DISEASE 05/05/2018 STACY MINER, SANIA A Ot R53.1 WEAKNESS 05/12/2018 STACY MINER, SANIA A Ot G20 PARKINSON'S DISEASE 05/12/2018 STACY MINER, SANIA Huang Ot R53.1 WEAKNESS 05/12/2018 STACY MINER, SANIA Huang Ot G20 PARKINSON'S DISEASE 05/12/2018 STACY MINER, SANIA Reina Ot R53.1 WEAKNESS Procedures There is no data. Results Test [...] GRAM STAIN SPUTUM AND MIXED BACTERIAL SPENCER NRG Bacterial sputum culture - 08/06/16 12:15 FREE TEXT EXTERNAL SENSITIVITY REPORTED 08/09 10:51 NRG QUANTITY OF GROWTH Scant Growth NRG FREE TEXT ENTRY 2 PLUS NORMAL SPENCER NRG Bacterial sputum culture [id number] NR Bacterial susceptibility panel - 08/06/16 12:15 Gentamicin [...] measurement by glucometer (mass/volume) 177 mg/dL 70-110 Capillary blood glucose measurement by glucometer (mass/volume) - 11/07/17 16: 54 Capillary blood glucose measurement by glucometer (mass/volume) 152 mg/dL 70-110 Complete blood count (CBC) with automated white blood cell (WBC) differential - 11/07/17 18:10 Blood leukocytes automated count (number/volume) 9.6 10*3/uL 4.3-11.0 Blood erythrocytes automated count (number/volume) 4.58 10*6/uL 4.35-5.85 Venous blood hemoglobin measurement (mass/volume) 14.7 g/dL 13.3-17.7 Blood hematocrit (volume fraction) 42 % 40-54 Automated erythrocyte mean corpuscular volume 91 [foz_us] 80-99 Automated erythrocyte mean corpuscular hemoglobin (mass per erythrocyte) 32 pg 25-34 Automated erythrocyte mean corpuscular hemoglobin concentration measurement ( mass/volume) 35 g/dL 32-36 Automated erythrocyte distribution width ratio 13.5 % 10.0-14.5 Automated blood platelet count (count/volume) 164 10*3/uL 130-400 Automated blood platelet mean volume measurement 9.4 [foz_us] 7.4-10.4 Automated blood neutrophils/100 leukocytes 60 % 42-75 Automated blood lymphocytes/100 leukocytes 28 % 12-44 Blood monocytes/100 leukocytes 10 % 0-12 Automated blood eosinophils/100 leukocytes 3 % 0-10 Automated blood basophils/100 leukocytes 0 % 0-10 Blood neutrophils automated count (number/volume) 5.7 10*3 1.8-7.8 Blood lymphocytes automated count (number/volume) 2.7 10*3 1.0-4.0 Blood monocytes automated count (number/volume) 0.9 10*3 0.0-1.0 Automated eosinophil count 0.2 10*3/uL 0.0-0.3 Automated blood basophil count (count/volume) 0.0 10*3/uL 0.0-0.1 PT panel in platelet poor plasma by coagulation assay - 11/07/17 18:10 Prothrombin time (PT) in platelet poor plasma by coagulation assay 13.0 s 12.2-14.7 INR in platelet poor plasma or blood by coagulation assay 1.0 0.8-1.4 Activated partial thromboplastin time (aPTT) in platelet poor plasma bycoagulation assay - 11/07/17 18:10 Activated partial thromboplastin time (aPTT) in platelet poor plasma bycoagulation assay 25 s 24-35 Comprehensive metabolic panel - 11/07/17 18:10 Serum or plasma sodium measurement (moles/volume) 135 mmol/L 135-145 Serum or plasma potassium measurement (moles/volume) 4.1 mmol/L 3.6-5.0 Serum or plasma chloride measurement (moles/volume) 101 mmol/L 98-107 Carbon dioxide 21 mmol/L 21-32 Serum or plasma anion gap determination (moles/volume) 13 mmol/L 5-14 Serum or plasma urea nitrogen measurement (mass/volume) 35 mg/dL 7-18 Serum or plasma creatinine measurement (mass/volume) 1.72 mg/dL 0.60-1.30 Serum or plasma urea nitrogen/creatinine mass ratio 20 NRG Serum or plasma creatinine measurement with calculation of estimated glomerular filtration rate 38 NRG Serum or plasma glucose measurement (mass/volume) 143 mg/dL 70-105 Serum or plasma calcium measurement (mass/volume) 9.1 mg/dL 8.5-10.1 Serum or plasma total bilirubin measurement (mass/volume) 0.4 mg/dL 0.1-1.0 Serum or plasma alkaline phosphatase measurement (enzymatic activity/volume) 71 U/L 40-136 Serum or plasma aspartate aminotransferase measurement (enzymatic activity/ volume) 15 U/L 5-34 Serum or plasma alanine aminotransferase measurement (enzymatic activity/volume ) 11 U/L 0-55 Serum or plasma protein measurement (mass/volume) 6.2 g/dL 6.4-8.2 Serum or plasma albumin measurement (mass/volume) 3.7 g/dL 3.2-4.5 Magnesium - 11/07/17 18:10 Magnesium 2.0 mg/dL 1.8-2.4 Serum or plasma creatine kinase measurement (enzymatic activity/volume) - 11/07 18:10 Serum or plasma creatine kinase measurement (enzymatic activity/volume) 64 U/L 30-200 Blood lactic acid measurement (moles/volume) - 11/07/17 18:10 Blood lactic acid measurement (moles/volume) 2.77 mmol/L 0.50-2.00 Serum or plasma lithium measurement (moles/volume) - 11/07/17 18:10 BNP level 186.9 pg/mL <100.0 Serum or plasma creatine kinase MB measurement (enzymatic activity/volume) - 18:10 Serum or plasma creatine kinase MB measurement (enzymatic activity/volume) 2.3 ng/mL <6.6 Serum or plasma troponin i.cardiac measurement (mass/volume) - 11/07/17 18:10 Serum or plasma troponin i.cardiac measurement (mass/volume) < ng/ mL <0.30 Serum or plasma thyrotropin measurement by detection limit <=0.05 miu/l (units/ volume) - 11/07/17 18:10 Serum or plasma thyrotropin measurement by detection limit <=0.05 miu/l (units/ volume) 4.44 u[iU]/mL 0.35-4.94 Bacterial blood culture - 11/07/17 18:10 Bacterial blood culture NG NRG Bacterial blood culture - 11/07/17 18:11 Bacterial blood culture NG NRG Complete urinalysis with reflex to culture - 11/07/17 18:43 Urine color determination YELLOW NRG Urine clarity determination CLEAR NRG Urine pH measurement by test strip 6.5 5-9 Specific gravity of urine by test strip 1.015 1.016- 1.022 Urine protein assay by test strip, semi-quantitative 1+ NEGATIVE Urine glucose detection by automated test strip NEGATIVE NEGATIVE Erythrocytes detection in urine sediment by light microscopy NEGATIVE NEGATIVE Urine ketones detection by automated test strip NEGATIVE NEGATIVE Urine nitrite detection by test strip NEGATIVE NEGATIVE Urine total bilirubin detection by test strip NEGATIVE NEGATIVE Urine urobilinogen measurement by automated test strip (mass/volume) NORMAL NORMAL Urine leukocyte esterase detection by dipstick 1+ NEGATIVE Automated urine sediment erythrocyte count by microscopy (number/high power field) NONE NRG Automated urine sediment leukocyte count by microscopy (number/high power field ) [HPF] NRG Bacteria detection in urine sediment by light microscopy NEGATIVE NRG Squamous epithelial cells detection in urine sediment by light microscopy 2-5 NRG Crystals detection in urine sediment by light microscopy NONE NRG Casts detection in urine sediment by light microscopy PRESENT NRG Mucus detection in urine sediment by light microscopy NEGATIVE NRG Complete urinalysis with reflex to culture YES NRG Hyaline casts detection in urine sediment by light microscopy 5-10 NRG Renal epithelial cells detection in urine sediment by light microscopy NONE NRG Bacterial urine culture - 11/07/17 18:43 Bacterial urine culture NG NRG Serum or plasma lactate measurement (moles/volume) - 11/07/17 20:10 Serum or plasma lactate measurement (moles/volume) 2.26 mmol/L 0.50-2.00 Complete blood count (CBC) with automated white blood cell (WBC) differential - 07/25/18 07:06 Blood leukocytes automated count (number/volume) 7.7 10*3/uL 4.3-11.0 Blood erythrocytes automated count (number/volume) 4.82 10*6/uL 4.35-5.85 Venous blood hemoglobin measurement (mass/volume) 14.9 g/dL 13.3-17.7 Blood hematocrit (volume fraction) 43 % 40-54 Automated erythrocyte mean corpuscular volume 90 [foz_us] 80-99 Automated erythrocyte mean corpuscular hemoglobin (mass per erythrocyte) 31 pg 25-34 Automated erythrocyte mean corpuscular hemoglobin concentration measurement ( mass/volume) 34 g/dL 32-36 Automated erythrocyte distribution width ratio 14.8 % 10.0-14.5 Automated blood platelet count (count/volume) 166 10*3/uL 130-400 Automated blood platelet mean volume measurement 9.3 [foz_us] 7.4-10.4 Automated blood neutrophils/100 leukocytes 55 % 42-75 Automated blood lymphocytes/100 leukocytes 33 % 12-44 Blood monocytes/100 leukocytes 10 % 0-12 Automated blood eosinophils/100 leukocytes 3 % 0-10 Automated blood basophils/100 leukocytes 0 % 0-10 Blood neutrophils automated count (number/volume) 4.2 10*3 1.8-7.8 Blood lymphocytes automated count (number/volume) 2.5 10*3 1.0-4.0 Blood monocytes automated count (number/volume) 0.8 10*3 0.0-1.0 Automated eosinophil count 0.2 10*3/uL 0.0-0.3 Automated blood basophil count (count/volume) 0.0 10*3/uL 0.0-0.1 Comprehensive metabolic panel - 07/25/18 07:06 Serum or plasma sodium measurement (moles/volume) 138 mmol/L 135-145 Serum or plasma potassium measurement (moles/volume) 4.1 mmol/L 3.6-5.0 Serum or plasma chloride measurement (moles/volume) 105 mmol/L 98-107 Carbon dioxide 22 mmol/L 21-32 Serum or plasma anion gap determination (moles/volume) 11 mmol/L 5-14 Serum or plasma urea nitrogen measurement (mass/volume) 23 mg/dL 7-18 Serum or plasma creatinine measurement (mass/volume) 1.45 mg/dL 0.60-1.30 Serum or plasma urea nitrogen/creatinine mass ratio 16 NRG Serum or plasma creatinine measurement with calculation of estimated glomerular filtration rate 46 NRG Serum or plasma glucose measurement (mass/volume) 117 mg/dL 70-105 Serum or plasma calcium measurement (mass/volume) 9.4 mg/dL 8.5-10.1 Serum or plasma total bilirubin measurement (mass/volume) 0.8 mg/dL 0.1-1.0 Serum or plasma alkaline phosphatase measurement (enzymatic activity/volume) 61 U/L 40-136 Serum or plasma aspartate aminotransferase measurement (enzymatic activity/ volume) 14 U/L 5-34 Serum or plasma alanine aminotransferase measurement (enzymatic activity/volume ) 14 U/L 0-55 Serum or plasma protein measurement (mass/volume) 6.7 g/dL 6.4-8.2 Serum or plasma albumin measurement (mass/volume) 4.0 g/dL 3.2-4.5 CALCIUM CORRECTED 9.4 mg/dL 8.5-10.1 Magnesium - 07/25/18 07:06 Magnesium 2.1 mg/dL 1.8-2.4 Encounters ACCT No. Visit Date/Time Discharge Status Pt. Type Provider Facility Loc./Unit Complaint [id number] 05/09/2018 14:14:00 05/12/2018 14:43:00 DIS Outpatient SANIA KUMAR MD [facility] REHAB GAIT INSTABILITY AND GENERAL WEAKNESS [id number] 04/15/2018 15:11:00 04/20/2018 11:00:00 DIS Outpatient SANIA KUMAR MD [facility] REHAB GAIT INSTABILITY AND GENERAL WEAKNESS [id number] 11/07/2017 16:40:00 11/07/2017 21:45:00 DIS Emergency KHADIJAH LAW DO [facility] ER WEAK IN THE KNEES,TROUBLE BREATHING [id number] 06/30/2017 09:55:00 06/30/2017 23:59:59 CLS Outpatient STEVIE BEDOYA MD [facility] WOUNDCARE [id number] 06/23/2017 09:56:00 06/23/2017 23:59:59 CLS Outpatient STEVIE BEDOYA MD [facility] [id number] 06/16/2017 08:02:00 06/16/2017 23:59:59 CLS Outpatient STEVIE BEDOYA MD [facility] WOUNDCARE [id number] 05/04/2017 14:33:00 05/04/2017 23:59:59 CLS Outpatient TED PÉREZ [facility] RAD CAD [id number] 12/28/2016 16:34:00 12/28/2016 23:59:59 CLS Preadmit STEVIE LYN MD [facility] SLEEP DOMINGO [id number] 12/09/2016 14:12:00 12/09/2016 14:41:00 DIS Outpatient STEVIE LYN MD [facility] SLEEP DOMINGO,COMPLEX SLEEP APNEA [id number] 09/28/2016 13:51:00 09/28/2016 23:59:59 CLS Outpatient KAELYN WEST MD [facility] LAB TOTAL THROIDECTOMY/ HYPERTHYROIDISM [id number] 09/25/2016 09:43:00 09/25/2016 16:00:00 DIS Outpatient STEVIE BEDOYA MD [facility] WOUNDCARE [id number] 08/26/2016 08:55:00 08/27/2016 13:55:00 DIS Outpatient KAELYN WEST MD [facility] THYROID NODULES [id number] 08/20/2016 08:53:00 08/20/2016 09:40:00 DIS Outpatient KAELYN WEST MD [facility] PREOP THYROID NODULES [id number] 08/13/2016 13:16:00 08/13/2016 23:59:59 CLS Outpatient KAELYN WEST MD [facility] LAB THYROID NODULES/ FATIGUE [id number] 08/10/2016 11:56:00 08/10/2016 23:59:59 CLS Outpatient SHAISTA POSADA [facility] RAD ABN THYROID FUNCTION STUDIES [id number] 08/06/2016 10:59:00 08/06/2016 23:59:59 CLS Outpatient SHAISTA POSADA [facility] RAD COUGH; ABD FULLNESS /PAIN [id number] 04/08/2016 09:46:00 04/08/2016 14:17:00 DIS Outpatient SHAISTA POSADA [facility] REHAB LOWER EXTREMITY EDEMA [id number] 11/26/2015 17:54:00 11/27/2015 13:25:00 DIS Inpatient SANIA KUMAR MD [facility] 4TH TIA,CONFUSION [id number] 08/06/2015 12:53:00 08/06/2015 15:00:00 DIS Outpatient ZULY CASIANO APRN [facility] WOUNDCARE [id number] 06/22/2015 00:08:00 06/22/2015 23:59:59 CLS Preadmit SANIA KUMAR MD [facility] SEBACEOUS CYST [id number] 03/24/2015 09:00:00 06/21/2015 00:01:00 DIS Outpatient SANIA KUMAR MD [facility] SEBACEOUS CYST [id number] 06/11/2015 11:13:00 06/11/2015 15:10:00 DIS Emergency JANICE GONZALES APRN [facility] ER CONGESTION/SOA DIZZINESS VISION DISTURBANCE [id number] 04/03/2015 06:00:00 04/03/2015 10:35:00 DIS Outpatient KAELYN WEST MD [facility] LEFT CHEST WALL SEBACEOUS CYST [id number] 04/02/2015 10:13:00 04/02/2015 23:59:59 CLS Outpatient KAELYN WEST MD [facility] PREOP LEFT CHEST WALL SEBACEOUS CYST [id number] 03/07/2015 13:54:00 03/07/2015 15:00:00 DIS Outpatient ZULY CASIANO APRN [facility] WOUNDCARE [id number] 02/27/2015 08:55:00 02/27/2015 23:59:59 CLS Outpatient ZULY CASIANO APRN [facility] RAD VENOUS INSUFFCIENCY WOUND [id number] 01/29/2014 11:04:00 01/29/2014 23:59:59 CLS Outpatient KAELYN WEST MD [facility] GERD [id number] 01/24/2014 07:24:00 01/24/2014 23:59:59 CLS Outpatient KAELYN WEST MD [facility] PREOP GERD [id number] 01/10/2014 19:52:00 01/11/2014 06:40:00 DIS Outpatient 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[facility] SLEEP SLEEP APNEA [id number] 12/03/2013 17:55:00 12/05/2013 13:25:00 DIS Inpatient SANIA KUMAR MD [facility] 4TH PNEUMONIA BIBASILAR [id number] 10/03/2013 06:42:00 10/03/2013 23:59:59 CLS Outpatient TED PÉREZ [facility] RAD RT LEG SWELLING,PVC [id number] 05/08/2013 11:43:00 07/09/2013 00:01:00 DIS Outpatient SHAWN MINER FACC, ALKA ROJAS CCDS [facility] LAB PVC, HYPERTENSION,DJD [id number] 04/03/2013 11:10:00 04/03/2013 16:45:00 DIS Outpatient KAELYN WEST MD [facility] FOLLOW UP FOR ULCERS [id number] 03/30/2013 07:20:00 03/30/2013 23:59:59 CLS Outpatient KAELYN WEST MD [facility] PREOP FOLLOW UP FOR ULCERS [id number] 12/13/2012 10:58:00 12/13/2012 15:00:00 DIS Outpatient KAELYN WEST MD [facility] UPPER GASTRIC PAIN [id number] 12/12/2012 07:10:00 12/12/2012 23:59:59 CLS Outpatient KAELYN WEST MD [facility] PREOP UPPER GASTRIC PAIN [id number] 07/25/2018 06:56:00 ACT Emergency RAINE MINER, CHELI Tracey [facility] ER VERTIGO [id number] 09/04/2014 14:10:00 Document Registration [id number] 07/10/2013 00:00:00 Document Registration [id number] 07/20/2012 06:10:00 Document Registration [id number] 07/13/2012 08:36:00 Document Registration [id number] 06/20/2012 09:32:00 Document Registration [id number] 06/16/2012 07:24:00 Document Registration [id number] 06/01/2012 07:50:00 Document Registration [id number] 12/24/2011 07:06:00 Document Registration [id number] 11/10/2011 08:00:00 Document Registration [id number] 08/12/2011 13:15:00 Document Registration [id number] 07/07/2011 14:43:00 Document Registration [id number] 11/17/2010 12:30:00 Document Registration [id number] 10/30/2010 20:40:00 Document Registration [id number] 02/24/2017 12:00:00 02/24/2017 23:59:59 CLS Outpatient JOSE ALVAREZ [facility] [place] [id number] 02/04/2017 15:19:28 02/04/2017 23:59:59 CLS Outpatient
[2018-07-25 10:30] VITALS: BP 182/90
--- NOTE | 2018-07-25 10:30 | NUR ---
PATIENT AMB WITH HELP WITHOUT PROBLEM REPORTS THAT HE IS NOT DIZZY AT THIS TIME WILL DISCHARGE
== END 2018-07-25 10:30 | disposition home or self-care (01) ==
LOC: EDUNIT# 06:52 → ER 06:56
DX: H81.10 Benign paroxysmal vertigo, unspecified ear (principal); G20 Parkinson's disease; F02.80 Dementia in other diseases classified elsewhere, unspecified severity, without behavioral disturbance, psychotic disturbance, mood disturbance, and anxiety; G47.30 Sleep apnea, unspecified; E11.9 Type 2 diabetes mellitus without complications; I48.91 Unspecified atrial fibrillation; Z82.49 Family history of ischemic heart disease and other diseases of the circulatory system; Z86.010 Personal history of colon polyps; Z87.19 Personal history of other diseases of the digestive system; Z87.448 Personal history of other diseases of urinary system; Z90.89 Acquired absence of other organs; Z95.0 Presence of cardiac pacemaker; Z98.890 Other specified postprocedural states; Z87.891 Personal history of nicotine dependence; Z79.4 Long term (current) use of insulin; Z88.0 Allergy status to penicillin; Z88.8 Allergy status to other drugs, medicaments and biological substances; Z88.2 Allergy status to sulfonamides; Z88.6 Allergy status to analgesic agent
CPT/HCPCS: 36415; 70450; 80053; 81000; 83735; 85025; 93005

== ENCOUNTER 2019-01-17 13:00 | Outpatient (RCR) | payer MEDICARE, MEDICAID ==
[~2019-01-17 13:00] MED LIST changes: +DIAZ2TAB PO; +METF500T19 PO; -METF500T8 PO; +ONDA4TAB11 PO; -TRAM50TA2 PO; +TRM50T PO
== END 2019-03-27 | disposition home or self-care (01) ==
PROVIDERS: ATTEND Family Medicine
DX: R53.1 Weakness (principal)

== ENCOUNTER → 2019-05-15 | Outpatient (CLI) | payer MEDICARE, MEDICAID ==
[2019-05-15 11:21] LABS: FREE T4 (FREE THYROXINE) 1.01 NG/DL (0.70-1.48)
== END ==
LOC: LABNPT 09:30
PROVIDERS: ATTEND Family Medicine
DX: E03.4 Atrophy of thyroid (acquired) (principal)
CPT/HCPCS: 84439; 84443

== ENCOUNTER → 2019-07-24 | Outpatient (CLI) | payer MEDICARE, MEDICAID ==
[2019-07-24 10:51] LABS: BILIRUBIN,URINE NEGATIVE (NEGATIVE); CLARITY,URINE CLEAR; COLOR,URINE YELLOW; GLUCOSE, URINE (UA) NEGATIVE (NEGATIVE); KETONES,URINE NEGATIVE (NEGATIVE); LEUKOCYTE ESTERASE ,URINE NEGATIVE (NEGATIVE); NITRITE,URINE NEGATIVE (NEGATIVE); PH,URINE 5.5 (5-9); PROTEIN,URINE NEGATIVE (NEGATIVE)
[2019-07-24 11:27] LABS: BACTERIA,URINE TRACE /HPF; RBC,URINE RARE /HPF; WBC,URINE RARE /HPF
== END ==
LOC: LABNPT 10:40
PROVIDERS: ATTEND Family Medicine
DX: R30.0 Dysuria (principal); R33.9 Retention of urine, unspecified
CPT/HCPCS: 81000